=== PATIENT | female | born 1970 | race Caucasian/White ===

== ENCOUNTER 2017-08-30 11:40 | Emergency (ER) | payer MEDICAID, SELFPAY ==
[2017-08-30 11:41] VITALS: BP 116/70; PULSE 100; RESP 18; TEMP 36.4; O2SAT 98; BMI 31.8
--- NOTE | 2017-08-30 12:48 | ED.VISSUMM ---
- ER Visit Summary Date of Service: 08/30/17 Chief Complaint: Back pain History of Present Illness: The patient is a 47 F complains of lower back pain, worse on the right side and radiated down to the mid thigh. Patient had back problems previously but is never required significant evaluation for this or injections. She usually takes Tylenol. 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 Patient states she now has significant pain whenever she tries to bear weight on her right leg. She has not yet taken anything for the pain. She has had no pallor bladder problems. She has had no paresthesias. Physical Examination: Vital signs unremarkable. Patient sitting at the side of the bed. She is in no acute distress but does appear uncomfortable. Head neck examination is unremarkable. Heart is regular rate and rhythm. On lung sounds are clear. Abdomen is soft and nontender. No palpable masses. Back examination was reproducible tenderness in the lower lumbar right paraspinals and over the right sciatic notch. There is no rash or ecchymosis. Lower extremity examination does reveal good strength in both legs. She does have increased pain with right leg movement but has good strength and good effort. She has normal sensation on testing with strong distal pulses. 1+ bilateral patellar reflexes are noted. Test Results: [] Emergency Department Course and Treatment: Oars report was performed. Patient had 1 narcotic prescription in the last year from October 2016. She will be given [place], Flexeril, and Naprosyn with first doses given here. Treatment Plan: [] Disposition: Discharge Impression: Sciatica with lumbar paraspinal strain This note was generated with [employer] dictation software. It may contain incorrect words, spelling, and punctuation that were not noted in review of the chart prior to signing ED Disposition - Plan for ED Patient: Disposition: Home or Assisted Living Chief Complaint: Back Instructions: ED Sprain Strain Lumbar, ED Sciatica Prescriptions: Hydrocodone Bitart/Apap 5-325 [[place] 5MG-325MG] 1 tablet PO Q6H PRN PRN 3 Days #10 tablet PRN Reason: Pain Naproxen [Naprosyn] 500 mg PO BID #14 tab Cyclobenzaprine [Flexeril] 10 mg PO TID PRN #20 tab PRN Reason: Muscle Spasm Referrals: Sapna Ray DO [Primary Care Provider] - 1 Week
--- NOTE | 2017-08-30 12:49 | ED.DEP ---
ED Disposition - Plan for ED Patient: Disposition: Home or Assisted Living Chief Complaint: Back Instructions: ED Sciatica, ED Sprain Strain Lumbar Prescriptions: Hydrocodone Bitart/Apap 5-325 [[place] 5MG-325MG] 1 tablet PO Q6H PRN PRN 3 Days #10 tablet PRN Reason: Pain Naproxen [Naprosyn] 500 mg PO BID #14 tab Cyclobenzaprine [Flexeril] 10 mg PO TID PRN #20 tab PRN Reason: Muscle Spasm Referrals: Sapna Ray DO [Primary Care Provider] - 1 Week
--- NOTE | 2017-08-30 12:52 | DCINST.ED_ITS ---
ED Disposition - Plan for ED Patient: Disposition: Home or Assisted Living Chief Complaint: Back Instructions: ED Sciatica, ED Sprain Strain Lumbar Prescriptions: Hydrocodone Bitart/Apap 5-325 [[place] 5MG-325MG] 1 tablet PO Q6H PRN PRN 3 Days # 10 tablet PRN Reason: Pain Naproxen [Naprosyn] 500 mg PO BID #14 tab Cyclobenzaprine [Flexeril] 10 mg PO TID PRN #20 tab PRN Reason: Muscle Spasm Referrals: Sapna Ray DO [Primary Care Provider] - 1 Week
[2017-08-30] MEDS: HYDROcodone Bitartrate/Apap 5/325 Tablet PO (13:04)
[2017-08-30] MEDS: Naproxen 500 MG Tablet PO (13:04)
[2017-08-30 13:08] VITALS: BP 117/85; PULSE 97; RESP 16; O2SAT 100
== END 2017-08-30 13:09 | disposition home or self-care (01) ==
LOC: ED 13:00
PROVIDERS: Emergency Provider Emergency Medicine; Family Provider Family Medicine; PCP Family Medicine
DX: M54.40 Lumbago with sciatica, unspecified side (principal); S39.012A Strain of muscle, fascia and tendon of lower back, initial encounter; X50.1XXA Overexertion from prolonged static or awkward postures, initial encounter; Y93.89 Activity, other specified; Y92.9 Unspecified place or not applicable; E78.00 Pure hypercholesterolemia, unspecified; E11.9 Type 2 diabetes mellitus without complications; K21.9 Gastro-esophageal reflux disease without esophagitis; G47.33 Obstructive sleep apnea (adult) (pediatric); M79.7 Fibromyalgia; Z87.891 Personal history of nicotine dependence; Z79.82 Long term (current) use of aspirin; Z79.84 Long term (current) use of oral hypoglycemic drugs; Z79.899 Other long term (current) drug therapy
CPT/HCPCS: 99283

== ENCOUNTER → 2017-09-17 11:14 | Outpatient (CLI) | payer MEDICAID, SELFPAY ==
[2017-09-17 14:55] LABS: Microalbumin,Random Urine 5.6 mg/L (NO RANGE EST.); Microalbumin:Creatinine Ratio 24.5 mg/g CRE (<30 mg/g CRE)
[2017-09-17 15:02] LABS: AST(SGOT) 21 U/L (15-37); Alanine Aminotransfer ALT/SGPT 37 U/L (13-56); Albumin, Serum 3.8 g/dL (3.2-5.0); Alkaline Phosphatase 74 U/L (45-117); Anion Gap 10 (5-15); BUN 18 mg/dL (7-18); BUN/Creat Ratio 22.7 RATIO (10-20); Calcium,Total 8.8 mg/dL (8.5-10.1); Chloride 100 mmol/L (98-107); Cholesterol 228 mg/dL (200); Creatinine, Serum 0.79 mg/dL (0.55-1.02); EST Glomerular Filtration Rate 83 mL/min (>60); Est Glom Filt Rate - Afr Amer 100 mL/min (>60); Glucose 406 mg/dL (74-106); High Density Lipoprotein 26 mg/dL; Potassium 4.4 mmol/L (3.5-5.1); Protein, Total 7.8 g/dL (6.4-8.2); Sodium Level 134 mmol/L (136-145); Triglycerides 1257 mg/dL
== END ==
PROVIDERS: Family Provider Family Medicine; PCP Family Medicine; Visit Provider Family Medicine
DX: E11.9 Type 2 diabetes mellitus without complications (principal)
CPT/HCPCS: 36415; 80053; 80061; 82043; 82570

== ENCOUNTER → 2017-11-27 13:30 | Outpatient (CLI) | payer MEDICAID, SELFPAY | PROVIDERS: Family Provider Family Medicine; PCP Family Medicine; Visit Provider Family Medicine | DX: R05 Cough (principal); R07.81 Pleurodynia | CPT/HCPCS: 71046 ==

== ENCOUNTER → 2018-07-01 12:47 | Outpatient (CLI) | payer MEDICAID, SELFPAY ==
[2018-07-01 15:35] LABS: Absolute Lymphocyte Count 2.46 X10^3/ul (0.83-4.51); Absolute Neutrophil Count 2.7 X10^3/uL (2.0-7.7); Basophil# 0.04 X10^3/uL; Basophil% 0.7 % (0-1); Eosinophils% 1.7 % (0-5); Hematocrit 43.9 % (37-47); Lymphocyte # 2.46 X10^3/ul (4.0); Mean Corp Hgb Conc 34.2 g/gl (32-36); Mean Corpuscular Hgb 28.8 pg (27.0-32.0); Mean Corpuscular Volume 84.4 fL (81-99); Mean Platelet Vol. 10.6 fl (6.2-12.0); Monocyte# 0.48 X10^3/uL; Monocyte% 8.2 % (0-10); Neutrophil # 2.74 X10^3/uL (2.7-7.7); Neutrophil % 46.7 % (47-70); Platelet Count 203 K/mm3 (150-450); RBC Distribution Width CV 13.7 % (11.6-14.6); RBC Distribution Width SD 41.9 fl (35.1-43.9); White Blood Count 5.9 K/mm3 (4.4-11.0)
[2018-07-01 15:38] LABS: POSITIVE COUNT NO; POSITIVE DIFFERENTIAL NO; POSITIVE MORPHOLOGY NO
[2018-07-01 15:56] LABS: Microalbumin,Random Urine 7.3 mg/L (NO RANGE EST.); Microalbumin:Creatinine Ratio 12.2 mg/g CRE (<30 mg/g CRE)
[2018-07-01 16:01] LABS: Erythrocyte Sedimentation Rate 32 mm/hr (0-20)
[2018-07-01 16:19] LABS: ALB/GLOB Ratio 1.1 RATIO (0.9-2.4); AST(SGOT) 34 U/L (15-37); Alanine Aminotransfer ALT/SGPT 68 U/L (13-56); Alkaline Phosphatase 89 U/L (45-117); Anion Gap 11 (5-15); BUN 17 mg/dL (7-18); BUN/Creat Ratio 18.7 RATIO (10-20); Calcium,Total 8.7 mg/dL (8.5-10.1); Chloride 102 mmol/L (98-107); Cholesterol 177 mg/dL (200); Creatinine, Serum 0.91 mg/dL (0.55-1.02); EST Glomerular Filtration Rate 71 mL/min (>60); Est Glom Filt Rate - Afr Amer 85 mL/min (>60); Globulin 3.8 g/dL (2.2-4.2); Glucose 361 mg/dL (74-106); High Density Lipoprotein 25 mg/dL; Potassium 4.4 mmol/L (3.5-5.1); Protein, Total 7.8 g/dL (6.4-8.2); Sodium Level 135 mmol/L (136-145); Triglycerides 838 mg/dL
[2018-07-01 16:20] LABS: CRP < 2.90 mg/L (0.0-3.0); Free T3 2.4 pg/mL (2.18-3.98); Hemoglobin A1c 10.7 % (4.2-6.3); Rheumatoid Factor < 10.0 IU/mL (<15); T4 Free Direct 1.14 ng/dL (0.76-1.46); Thyroid Stim Hormone (TSH) 2.15 uIU/mL (0.358-3.74)
[2018-07-05 11:58] LABS: CCP IgG Antibodies 58 units (0-19)
[2018-07-05 13:55] LABS: Anti-Centromere B Ab <0.2 AI (0.0-0.9); Anti-Chromatin <0.2 AI (0.0-0.9); Anti-Jo <0.2 AI (0.0-0.9); Anti-Scleroderma-70 AB <0.2 AI (0.0-0.9); RNP Ab <0.2 AI (0.0-0.9); SJOGREN'S Anti-SS-A test < 0.2 AI (0.0-0.9); SJOGREN'S Anti-SS-B test < 0.2 AI (0.0-0.9); Smith Ab <0.2 AI (0.0-0.9)
[2018-07-06 13:13] LABS: Anti-dsDNA Ab <1 IU/mL (0-9)
== END ==
PROVIDERS: Family Provider Family Medicine; PCP Family Medicine; Visit Provider Family Medicine
DX: E11.9 Type 2 diabetes mellitus without complications (principal); E78.5 Hyperlipidemia, unspecified; M79.10 Myalgia, unspecified site; M25.50 Pain in unspecified joint; Z51.81 Encounter for therapeutic drug level monitoring
CPT/HCPCS: 36415; 80053; 80061; 82043; 82570; 83036; 84439; 84443; 84481; 85025; 85652; 86140; 86200; 86225; 86235; 86431

== ENCOUNTER → 2019-06-06 11:11 | Outpatient (CLI) | payer MEDICAID, SELFPAY ==
[2019-06-06 12:57] LABS: Absolute Lymphocyte Count 2.88 X10^3/uL (0.83-4.51); Absolute Neutrophil Count 3.1 X10^3/uL (2.0-7.7); Basophil# 0.04 X10^3/uL; Basophil% 0.6 % (0-1); Eosinophil# 0.14 X10^3/uL; Hematocrit 45.8 % (37-47); Hemoglobin 15.7 g/dL (12.0-15.0); Lymphocyte # 2.88 X10^3/ul (4.0); Lymphocyte % 41.7 % (19-41); Mean Corp Hgb Conc 34.3 g/dL (32-36); Mean Corpuscular Volume 84.5 fL (81-99); Mean Platelet Vol. 10.7 fl (6.2-12.0); Monocyte# 0.69 X10^3/uL; NRBC Flagged by Analyzer 0 % (0-5); Neutrophil # 3.11 X10^3/uL (2.7-7.7); Neutrophil % 45.1 % (47-70); Platelet Count 209 K/mm3 (150-450); RBC Distribution Width SD 39.8 fl (35.1-43.9); Red Blood Count 5.42 M/mm3 (4.2-5.4); White Blood Count 6.9 K/mm3 (4.4-11.0)
[2019-06-06 13:37] LABS: ALB/GLOB Ratio 0.9 RATIO (0.9-2.4); AST(SGOT) 20 U/L (15-37); Alanine Aminotransfer ALT/SGPT 35 U/L (13-56); Albumin, Serum 3.7 g/dL (3.2-5.0); Alkaline Phosphatase 79 U/L (45-117); Anion Gap 8 (5-15); BUN 25 mg/dL (7-18); BUN/Creat Ratio 25.9 RATIO (10-20); Calcium,Total 9.5 mg/dL (8.5-10.1); Chloride 104 mmol/L (98-107); Creatinine, Serum 0.96 mg/dL (0.55-1.02); EST Glomerular Filtration Rate 66 mL/min (>60); Est Glom Filt Rate - Afr Amer 79 mL/min (>60); Glucose 337 mg/dL (74-106); Potassium 4.1 mmol/L (3.5-5.1); Protein, Total 7.7 g/dL (6.4-8.2); Sodium Level 135 mmol/L (136-145)
[2019-06-07 13:44] LABS: Cholesterol 252 mg/dL (200); High Density Lipoprotein 31 mg/dL; Triglycerides 631 mg/dL
== END ==
PROVIDERS: PCP Family Medicine; Visit Provider Family Medicine
DX: E78.5 Hyperlipidemia, unspecified (principal); E11.3299 Type 2 diabetes mellitus with mild nonproliferative diabetic retinopathy without macular edema, unspecified eye; E11.65 Type 2 diabetes mellitus with hyperglycemia
CPT/HCPCS: 36415; 80053; 80061; 85025

== ENCOUNTER → 2019-07-26 10:11 | Outpatient (CLI) | payer MEDICAID, SELFPAY ==
[2019-07-26 12:04] LABS: Insulin 50.2 mU/L (2.6-37.6)
[2019-07-26 12:28] LABS: ALB/GLOB Ratio 0.9 RATIO (0.9-2.4); AST(SGOT) 16 U/L (15-37); Alanine Aminotransfer ALT/SGPT 33 U/L (13-56); Albumin, Serum 3.6 g/dL (3.2-5.0); Alkaline Phosphatase 88 U/L (45-117); Anion Gap 10 (5-15); BUN 33 mg/dL (7-18); BUN/Creat Ratio 40.7 RATIO (10-20); Chloride 101 mmol/L (98-107); Creatinine, Serum 0.81 mg/dL (0.55-1.02); EST Glomerular Filtration Rate 80 mL/min (>60); Est Glom Filt Rate - Afr Amer 97 mL/min (>60); Globulin 3.8 g/dL (2.2-4.2); Glucose 377 mg/dL (74-106); Potassium 4.2 mmol/L (3.5-5.1); Protein, Total 7.4 g/dL (6.4-8.2); Sodium Level 134 mmol/L (136-145); T4 Free Direct 1.01 ng/dL (0.76-1.46); Thyroid Stim Hormone (TSH) 1.82 uIU/mL (0.358-3.74)
[2019-07-27 17:43] LABS: C-Peptide 8.8 ng/mL (1.1-4.4)
== END ==
PROVIDERS: PCP Family Medicine; Referring Provider Family Medicine; Visit Provider Family Medicine
DX: E11.65 Type 2 diabetes mellitus with hyperglycemia (principal); D89.89 Other specified disorders involving the immune mechanism, not elsewhere classified; R53.83 Other fatigue
CPT/HCPCS: 36415; 80053; 83525; 84439; 84443; 84681

== ENCOUNTER 2019-09-07 18:03 | Emergency (ER) | payer MEDICAID, SELFPAY ==
[2019-09-07 18:04] VITALS: BP 118/72; PULSE 108; RESP 14; TEMP 36.2; O2SAT 97; BMI 29.6
--- NOTE | 2019-09-07 18:30 | RAD_ITS ---
STUDY: X-RAY - RIGHT KNEE REASON FOR EXAM: Female, 49 years old. fall today. Abrasions to Rt knee. Hx of surgery. TECHNIQUE: 3 view(s) of the knee. COMPARISON: None. FINDINGS: Normal visualized distal femur. Normal visualized proximal tibia and fibula. Normal proximal tibiofibular articulation. There is no demonstrated fracture. There is moderate degenerative arthrosis of the medial femorotibial compartment with moderate joint space narrowing. There is mild degenerative arthrosis of the lateral femorotibial compartment. There is moderate degenerative arthrosis of the patellofemoral articulation. There is no demonstrated joint effusion. Postoperative changes of the tibial tubercle. RAD/Knee 3 Views IMPRESSION: Negative for acute fracture, dislocation or hemarthrosis. Moderately advanced degenerative changes of the patellofemoral and medial compartment. Postoperative changes of the tibial tubercle. Electronically Signed: Eli Taylor MD at 18:47 EDT , Service support ,
--- NOTE | 2019-09-07 18:54 | ED.VIS.FALL ---
History of Present Illness Chief Complaint: Fall Informant: Patient, Significant Other Occurred: Today - JPTA Mechanism/Context: Same level fall Quality of Pain: - - sore Current Severity: Mild Maximum Severity: Moderate Worsened by: walking Relieved by: rest Associated Symptoms: Negative for: Parasthesias, Weakness, Loss of function, Inability to ambulate, Loss of consciousness, Amnesia Narrative: Patient has fibromyalgia and states she frequently falls. She states she has balance issues. She had a fall while walking on the sidewalk today, she went down to her hands and knees. She injured the right knee the worst. She was able to ambulate, she had no other injuries. She was concerned mostly because of laceration to the knee. No prodromal symptoms. Tetanus Immunization: 5-10 years - Past Medical History (1) Fibromyalgia Status: Chronic (2) Intertrigo Status: Chronic Comment: abdominal wall skin crease intertrigo (3) Lumbar back pain Status: Chronic Past Medical History - Allergies and Home Meds Allergies/Adverse Reactions: Allergies etodolac [From [facility]] Allergy (Verified 09/07/19 18:03) Rash Primary Care Physician: Sapna Ray DO [Primary Care Provider] - Lives: Spouse/ Significant Other Smoking Status: Never smoker Review of Systems General: Denies: Chills, Fever, Sweats Eyes: Denies: Visual changes - bilaterally, Diplopia ENT: Denies: Rhinorrhea, Sore throat Cardiovascular: Denies: Chest pain, Palpitations Respiratory: Denies: Dyspnea, Cough, Dyspnea on exertion Gastrointestinal: Denies: Abdominal pain, Nausea, Vomiting, Diarrhea, Melena, Hematochezia Genitourinary: Denies: Dysuria, Hematuria, Frequency Musculoskeletal: Reports: Extremity Pain. Denies: Back pain Skin: Reports: Abrasions, Wounds. Denies: Rash Neurological: Denies: Headache, Weakness, Numbness Physical Exam Vital Signs/Narrative: Vital Signs Temp Pulse Resp BP Pulse Ox 09/07/19 18:04 97.2 F L 108 H 14 118/72 97 Inital Vital Signs reviewed: Yes General: Well nourished, Well developed, - - Well-appearing NAD, GCS 15 Head: Normocephalic, Atraumatic Neck: Nontender, Full ROM Back: Nontender. Negative for: Spinal Tenderness, Paraspinal Tenderness Extremeties: Full range of motion throughout all 4 extremities, including the wrists bilaterally without any bony tenderness there including the snuffbox is, and the knees. The only bony tenderness is at the right tibial tuberosity. All ligaments are intact with a short endpoints and no pain on stressing. Skin: Normal color, No rash, Trauma - Abrasions to both anterior knees, with a partial-thickness laceration 3 cm over the tibial tuberosity of the right. The laceration does not distract and is barely into the dermis if that. Neurological: Alert, Oriented x3, Cranial nerves II-XII grossly intact, Normal Strength, Normal Sensation, Normal Gait Psychological: Normal affect, Normal Mood Diagnostic/Tx/Re-eval Clinical Impression(s) from Imaging Studies Knee X-Ray 09/07/19 18:30 IMPRESSION: Negative for acute fracture, dislocation or hemarthrosis. Moderately advanced degenerative changes of the patellofemoral and medial compartment. Postoperative changes of the tibial tubercle. Electronically Signed: Eli Taylor MD at 18:47 EDT , Service support , - Medical Decision Making X-rays of the right knee are negative for anything acute. I do not think this laceration needs to be repaired it is very superficial does not distract even when she flexes her knee fully. Cleansed, dressed with bacitracin, and patient is comfortable with that plan and I did not think it needed stitched. ED Disposition - Plan for ED Patient: Disposition: Home or Assisted Living Diagnosis: Abrasion of knee, bilateral, Abrasion, wrist w/o infection Instructions: ED Mechanical Fall, ED Abrasion Referrals: Sapna Ray DO [Primary Care Provider] - As Needed
== END 2019-09-07 19:21 | disposition home or self-care (01) ==
LOC: ED 19:07
PROVIDERS: Emergency Provider Emergency Medicine; PCP Family Medicine
DX: S80.211A Abrasion, right knee, initial encounter (principal); S80.212A Abrasion, left knee, initial encounter; W19.XXXA Unspecified fall, initial encounter; Y92.480 Sidewalk as the place of occurrence of the external cause
CPT/HCPCS: 73562; 99282

== ENCOUNTER 2020-01-28 18:54 | Emergency (ER) | payer MEDICAID, SELFPAY ==
[2020-01-28 18:55] VITALS: BP 129/80; PULSE 97; RESP 14; TEMP 36.6; O2SAT 99; BMI 29.7
[2020-01-28 18:59] VITALS: BP 129/80; PULSE 97; RESP 14; TEMP 36.6; O2SAT 99
--- NOTE | 2020-01-28 19:05 | ED.DEP ---
ED Disposition - Plan for ED Patient: Instructions: ED Tooth Pain Prescriptions: Naproxen [Naprosyn] 500 mg PO BID PRN #20 tab Prescription Printed Penicillin V Potassium 500 mg PO 4X/DAY #40 tab Prescription Printed Referrals: Sapna Ray DO [Primary Care Provider] -
--- NOTE | 2020-01-28 19:07 | ED.VISSUMM ---
- ER Visit Summary Date of Service: 01/28/20 Chief Complaint: Dental pain History of Present Illness: The patient is a 49 F presenting with dental pain. She states this started yesterday. She has pain right upper molar. She noticed right sided facial swelling today. She denies fever. She does not currently have a dentist. She has tried Tylenol at home. She denies other complaints. Physical Examination: Vitals are stable. Patient is afebrile. Alert no acute distress. HEENT exam right upper molar tenderness to palpation with no surrounding fluctuance, mild right upper gum swelling. No sublingual edema. Neck is supple. Lungs are clear and equal bilaterally. Heart is regular rate and rhythm. Extremities are unremarkable. Skin is warm and dry. No focal neurologic deficit. Remainder of exam is unremarkable. Emergency Department Course and Treatment: Patient was given [place] x1. She was given prescription for Naprosyn and penicillin. She was given dental referral list. Advised to follow-up with a dentist. Advised return to ED for worsening complaints. Disposition: Discharge home Impression: Odontalgia This note was generated with [email or web address] dictation software. It may contain incorrect words, spelling, and punctuation that were not noted in review of the chart prior to signing ED Disposition - Plan for ED Patient: Instructions: ED Tooth Pain Prescriptions: Naproxen [Naprosyn] 500 mg PO BID PRN #20 tab Prescription Printed Penicillin V Potassium 500 mg PO 4X/DAY #40 tab Prescription Printed Referrals: Sapna Ray DO [Primary Care Provider] -
[2020-01-28] MEDS: Penicillin Vk 250 MG Tablet 500 MG PO (19:16)
[2020-01-28] MEDS: HYDROcodone Bitartrate/Apap 5/325 Tablet PO (19:17)
== END 2020-01-28 19:21 | disposition home or self-care (01) ==
LOC: ED 19:12
PROVIDERS: Emergency Provider Emergency Medicine; PCP Family Medicine
DX: K08.89 Other specified disorders of teeth and supporting structures (principal); K21.9 Gastro-esophageal reflux disease without esophagitis; E11.9 Type 2 diabetes mellitus without complications; Z79.84 Long term (current) use of oral hypoglycemic drugs
CPT/HCPCS: 99281

== ENCOUNTER → 2020-02-17 12:14 | Outpatient (CLI) | payer MEDICAID, SELFPAY ==
[2020-01-28 18:55] VITALS: BMI 29.7
[2020-02-17 15:21] LABS: Absolute Lymphocyte Count 2.12 X10^3/uL (0.83-4.51); Absolute Neutrophil Count 2.9 X10^3/uL (2.0-7.7); Basophil# 0.03 X10^3/uL; Basophil% 0.5 % (0-1); Eosinophil# 0.14 X10^3/uL; Eosinophils% 2.4 % (0-5); Hematocrit 42.6 % (37-47); Hemoglobin 14.2 g/dL (12.0-15.0); Lymphocyte # 2.12 X10^3/ul (4.0); Lymphocyte % 36.1 % (19-41); Mean Corp Hgb Conc 33.3 g/dL (32-36); Mean Corpuscular Hgb 29.5 pg (27.0-32.0); Mean Corpuscular Volume 88.4 fL (81-99); Mean Platelet Vol. 10.6 fl (6.2-12.0); Monocyte# 0.63 X10^3/uL; Monocyte% 10.7 % (0-10); NRBC Flagged by Analyzer 0 % (0-5); Neutrophil # 2.94 X10^3/uL (2.7-7.7); Platelet Count 183 K/mm3 (150-450); RBC Distribution Width SD 41.9 fl (35.1-43.9); Red Blood Count 4.82 M/mm3 (4.2-5.4); White Blood Count 5.9 K/mm3 (4.4-11.0)
[2020-02-17 16:03] LABS: Hemoglobin A1c 12.5 % (3.8-5.6)
[2020-02-17 16:10] LABS: Microalbumin,Random Urine 29.8 mg/L (NO RANGE EST.); Microalbumin:Creatinine Ratio 35.8 mg/g CRE (<30 mg/g CRE)
[2020-02-17 16:23] LABS: ALB/GLOB Ratio 0.9 RATIO (0.9-2.4); AST(SGOT) 27 U/L (15-37); Alanine Aminotransfer ALT/SGPT 43 U/L (13-56); Albumin, Serum 3.3 g/dL (3.2-5.0); Alkaline Phosphatase 102 U/L (45-117); Anion Gap 8 (5-15); BUN 20 mg/dL (7-18); Calcium,Total 8.4 mg/dL (8.5-10.1); Chloride 97 mmol/L (98-107); Cholesterol 230 mg/dL (200); EST Glomerular Filtration Rate 81 mL/min (>60); Est Glom Filt Rate - Afr Amer 98 mL/min (>60); Globulin 3.8 g/dL (2.2-4.2); Glucose 360 mg/dL (74-106); High Density Lipoprotein 29 mg/dL; Potassium 4.2 mmol/L (3.5-5.1); Protein, Total 7.1 g/dL (6.4-8.2); Sodium Level 132 mmol/L (136-145); Triglycerides 1031 mg/dL
== END ==
PROVIDERS: PCP Family Medicine; Referring Provider Family Medicine; Visit Provider Family Medicine
DX: E11.9 Type 2 diabetes mellitus without complications (principal); E78.5 Hyperlipidemia, unspecified
CPT/HCPCS: 36415; 80053; 80061; 82043; 82570; 83036; 85025

== ENCOUNTER 2020-03-07 19:05 | Observation (INO) | payer MEDICAID, SELFPAY ==
[2020-03-07 19:05] VITALS: BP 112/82; PULSE 133; RESP 16; TEMP 36.1; O2SAT 100; BMI 29.9
--- NOTE | 2020-03-07 19:29 | EKG12_ITS ---
Test Reason : FALL Blood Pressure : / mmHG Vent. Rate : 130 BPM Atrial Rate : 130 BPM P-R Int : 144 ms QRS Dur : 072 ms QT Int : 312 ms P-R-T Axes : 074 -17 048 degrees QTc Int : 459 ms Sinus tachycardia Inferior infarct , age undetermined Abnormal ECG Confirmed by CORIE CORONADO, RAMSES ([id number]), copy editor HI SANDY ([id number]) on 03/09/2020 2:05:30 PM Referred By: Confirmed By:MICHELL FONTENOT MD
--- NOTE | 2020-03-07 20:04 | CT_ITS ---
STUDY: CT BRAIN WITHOUT CONTRAST REASON FOR EXAM: Female, 49 years old. Weakness. Patient states she keeps falling and is not sure why. RADIATION DOSAGE (If Supplied By Facility): CTDIvol = ( 44.99 ) mGy, DLP = ( 762.36 ) mGycm TECHNIQUE: Transaxial CT imaging of the brain was performed without administration of intravenous contrast material. Individualized dose optimization techniques were used for this CT. COMPARISON: No relevant priors. FINDINGS: Normal soft tissue structures. Normal calvarium. Normal size ventricles and extra-axial spaces for the patient''s age. Normal white matter tracts of the cerebral hemispheres. Normal basal ganglia and thalami. Normal brainstem. Normal cerebellum. There is no intracranial hemorrhage. There are no findings of an acute ischemic infarction. Normal visualized paranasal sinuses. CT/Brain/Head without Contrast IMPRESSION: Normal unenhanced CT scan of the brain. Electronically Signed: You Liang DO at 20:27 EST Tel [phone], Service support ,
[2020-03-07 20:15] LABS: Absolute Lymphocyte Count 2.09 X10^3/uL (0.83-4.51); Absolute Neutrophil Count 4.3 X10^3/uL (2.0-7.7); Basophil# 0.03 X10^3/uL; Basophil% 0.4 % (0-1); Eosinophil# 0.06 X10^3/uL; Eosinophils% 0.9 % (0-5); Hematocrit 42.4 % (37-47); Hemoglobin 14.8 g/dL (12.0-15.0); Lymphocyte # 2.09 X10^3/ul (4.0); Lymphocyte % 29.7 % (19-41); Mean Corp Hgb Conc 34.9 g/dL (32-36); Mean Corpuscular Hgb 30.3 pg (27.0-32.0); Mean Corpuscular Volume 86.7 fL (81-99); Mean Platelet Vol. 10.1 fl (6.2-12.0); Monocyte% 7.1 % (0-10); NRBC Flagged by Analyzer 0 % (0-5); Neutrophil # 4.31 X10^3/uL (2.7-7.7); Neutrophil % 61.2 % (47-70); Platelet Count 186 K/mm3 (150-450); RBC Distribution Width CV 12.6 % (11.6-14.6); RBC Distribution Width SD 39.5 fl (35.1-43.9); Red Blood Count 4.89 M/mm3 (4.2-5.4)
[2020-03-07 20:45] LABS: Anion Gap 10 (5-15); BUN 33 mg/dL (7-18); BUN/Creat Ratio 24.4 RATIO (10-20); Calcium,Total 8.7 mg/dL (8.5-10.1); Chloride 99 mmol/L (98-107); Creatinine, Serum 1.35 mg/dL (0.55-1.02); EST Glomerular Filtration Rate 44 mL/min (>60); Est Glom Filt Rate - Afr Amer 54 mL/min (>60); Estimated Creatinine Clearance 45.86 ml/min; Glucose 571 mg/dL (74-106); Potassium 4.2 mmol/L (3.5-5.1); Sodium Level 132 mmol/L (136-145)
[2020-03-07] MEDS: 0.9% Normal Saline 1,000 ML 999 ML IV ×2 (20:45→22:00)
[2020-03-07 20:51] LABS: Color, Urine Yellow (Yellow); Glucose, Dipstick 1000 mg/dl (Normal); Ketone-Dipstick Negative (Negative); Leukocyte Esterase-Dipstick Negative /ul (Negative); Nitrite-Dipstick Negative (Negative); Occult Blood-Urine Negative /ul (Negative); Protein-Dipstick Negative (Negative); Urine Bilirubin Dipstick Negative (Negative); Urine Clarity Clear (Clear); Urine Urobilinogen Normal (Normal)
[2020-03-07 20:52] LABS: Bacteria 0 SEEN /hpf (None Seen); Mucous, Urine 0 SEEN /hpf (<or=2+); Red Blood Cells-Urine 0 SEEN /hpf (0-5); White Blood Cells 0 SEEN /hpf (0-5)
[2020-03-07 21:13] LABS: Squamous Epithelial Cells - UA 0-5 SEEN /hpf (5-10)
[2020-03-07 21:25] VITALS: BP 111/75; PULSE 125; RESP 16; O2SAT 96
[2020-03-07] MEDS: Insulin Lispro 100 UNIT/ML INSULN.PEN 10 UNIT SC (21:26)
--- NOTE | 2020-03-07 21:33 | HP.PCM_ITS ---
Problem List (1) Multiple falls Status: Acute (2) Fibromyalgia Status: Chronic (3) Former smoker Status: Chronic (4) Lumbar back pain Status: Chronic (5) Intertrigo Status: Chronic Comment: abdominal wall skin crease intertrigo (6) Excessive body weight loss Status: Chronic (7) Panniculitis Status: Chronic (8) Abdominal panniculus, symptomatic Status: Chronic (9) [place] (acute kidney injury) Status: Acute (10) Diabetes mellitus Status: Acute History of Present Illness Date of Admission: 03/07/20 Chief Complaint: Multiple falls The patient is a 49 year old F with a significant history of diabetes mellitus; and fibromyalgia who presents to the emergency department with multiple falls. On the day of presentation patient had 2 falls. She reported that in the past she has also had an falls. Reportedly she discussed multiple falls previously with her PCP who attributed her multiple falls to likely fibromyalgia or diabetes neuropathy. She reports sciatic pain of her leg. Past Medical History Past Medical History (Chronic Problems): Chronic Problems (Last Reviewed 03/07/20 @ 22:[address] Chris Reina MD) Fibromyalgia (Chronic) Former smoker (Chronic) Lumbar back pain (Chronic) Intertrigo (Chronic) abdominal wall skin crease intertrigo Excessive body weight loss (Chronic) Panniculitis (Chronic) Abdominal panniculus, symptomatic (Chronic) Medical History: Medical History (Last Reviewed 03/08/20 @ 01:[address] Chris Reina MD) Arthritis M19.90 Back problem M53.9 Bursitis M71.9 Carpal tunnel syndrome G56.00 Depression F32.9 Diabetes E11.9 Fibromyalgia M79.7 GERD (gastroesophageal reflux disease) K21.9 Headache R51 High cholesterol E78.00 Osteoarthritis M19.90 Seasonal allergic conjunctivitis H10.45 ULCERS Vision problems H54.7 Vitamin deficiency E56.9 Allergies etodolac [From Lodine] Allergy (Verified 01/28/20 18:55) Rash Home Medications: Ambulatory Orders Medication Instructions Recorded Aspirin [Adult Low Dose Aspirin EC] 81 mg PO DAILY 05/23/15 DiphenhydrAMINE [Benadryl] 50 mg PO BID PRN PRN 05/23/15 Fenofibrate [Lofibra] 67 mg PO BID 05/23/15 Lisinopril [Zestril] 2.5 mg PO DAILY 05/23/15 Omeprazole [Prilosec] 20 mg PO DAILY 05/23/15 Lactobacillus Acidophilus 2 ea PO BID 10/10/16 [Acidophilus Lactobacilli] glipizide 5 mg tablet 5 mg PO BID 04/15/17 cycloBENZAPRine HCl [Flexeril] 10 mg PO TID PRN #20 tab 08/30/17 Duloxetine Hcl [Cymbalta] 60 mg PO DAILY 03/07/20 Gabapentin 600 mg PO TID 03/07/20 Insulin Detemir [Levemir] 20 unit SQ QHS 03/07/20 Meloxicam 03/07/20 Surgical History: Surgical History (Last Reviewed 03/08/20 @ 01:[address] Chris Reina MD) H/O knee surgery Z98.890 TO CORRECT DISLOCATED PATELLAR 03/2013 History of carpal tunnel surgery Z92.89 BOTH WRIST 04/2015 History of hysterectomy Z98.890, Z90.710 05/2015 Smoking Status: Former smoker - *Family History Maternal Family History: Family History (Last Reviewed 03/08/20 @ 01:[address] Chris Reina MD) Mother Arthritis Hypertension Melanoma Father Arthritis Bleeding disorder Diabetes Heart disease High cholesterol Son Kidney disease H/O psychiatric care Uncle Alcoholism Liver disease Grandmother Arthritis Cancer Lung cancer Sister Epilepsy Melanoma Skin cancer Aunt CVA (cerebral vascular accident) Review of Systems Constitutional: Denies: Chills, Fever, Weight Change HEENT: Denies: Head Aches, Sinus Congestion, Sinus Drainage Cardiovascular: Denies: Chest Pain, Palpitations Respiratory: Denies: Cough, Shortness of breath at rest, Sputum production Gastrointestinal: Denies: Abdominal Pain, Nausea, Vomiting Genitourinary: Denies: Dysuria Musculoskeletal: Reports: Leg Pain. Denies: Joint Pain, Joint Tenderness Skin: Denies: Rash, Wounds Neurological: Denies: Numbness, Tingling, Focal weakness Psychiatric: Denies: Anxiety, Depression, Homicidal Ideations, Suicidal Ideations Hematologic/ Lymphatic: Denies: Easy Bruising, Easy Bleeding VTE Information - Inpt Only VTE Present on Admission: No VTE Mechan Device Prophylaxis: None VTE Pharm Prophylaxis ordered?: Yes Patient Problems: Active and Suspected Problems (Last Reviewed 03/07/20 @ 22:[address] Chris Reina MD) Multiple falls (Acute) [place] (acute kidney injury) (Acute) Diabetes mellitus (Acute) - Physical Exam Vitals/I&O's: Vital Signs Temp Pulse Resp BP Pulse Ox 97 F L 125 H 16 111/75 96 03/07/20 19:05 03/07/20 21:25 03/07/20 21:25 03/07/20 21:25 03/07/20 21:25 Oxygen Delivery Method Room Air Weight: 81.647 kg Body Mass Index (BMI) 29.9 Finger Stick Blood Glucose 239 General: Alert, Oriented x3, Cooperative HEENT: Atraumatic, PERRLA, EOMI, Normocephalic Neck: Supple, No JVD, Negative Carotid Bruits Lungs: Clear to auscultation, Normal air movement Cardiovascular: Regular rate, No murmurs Abdomen: Bowel Sounds Present, Soft, Non Tender Extremities: No edema, Capillary Refill Less than 3 Seconds Skin: No rashes, No breakdown Musculoskeletal: No Tenderness to Palpation of Joints or Extremities Neurological: Cranial nerves II-XII grossly intact Psych/Mental Status: Normal Affect, Appropriate Laboratory Results 03/07/20 19:58: WBC 7.0, RBC 4.89, Hgb 14.8, Hct 42.4, MCV 86.7, MCH 30.3, MCHC 34.9, RDW Std Deviation 39.5, RDW Coeff of Elio 12.6, Plt Count 186, MPV 10.1, Immature Gran % (Auto) 0.700, Neut % (Auto) 61.2, Lymph % (Auto) 29.7, [place] % (Auto) 7.1, Eos % (Auto) 0.9, Baso % (Auto) 0.4, Absolute Neuts (auto) 4.3, Absolute Lymphs (auto) 2.09, Nucleated RBC % 0 03/07/20 19:58: Sodium 132 L, Potassium 4.2, Chloride 99, Carbon Dioxide 23.0, Anion Gap 10, BUN 33 H, Creatinine 1.35 H, Estim Creat Clear Calc 45.86, Est GFR (MDRD) Af Amer 54 L, Est GFR (MDRD) Non-Af 44 L, BUN/Creatinine Ratio 24.4 H, Glucose 571 H*, Calcium 8.7 03/07/20 20:35: Urine Color Yellow, Urine Clarity Clear, Urine pH 5.0, Ur Specific [place] 1.010, Urine Protein Negative, Urine Glucose (UA) 1000 H, Urine Ketones Negative, Urine Occult Blood Negative, Urine Nitrite Negative, Urine Bilirubin Negative, Urine Urobilinogen Normal, Ur Leukocyte Esterase Negative, Urine RBC 0 SEEN, Urine WBC 0 SEEN, Ur Squamous Epith Cells 0-5 SEEN, Urine Bacteria 0 SEEN, Urine Mucus 0 SEEN Current Medications Sodium Chloride () 1,000 mls @ 999 mls/hr IV .Q1H1M ONE Stop: 03/07/20 22:10 Assessment/Plan All Active Problems (Last Reviewed 03/07/20 @ 22:[address] Chris Reina MD) Multiple falls (Acute) [place] (acute kidney injury) (Acute) Diabetes mellitus (Acute) Multiple falls PT and OT to work with patient We will check vitamin B12 and vitamin D level. Diabetes mellitus Patient with severe hyperglycemia of 571 on presentation. Received short acting insulin at emergency department Home glipizide continued. Accu-Chek QA CHS with correction scale insulin. Diabetic diet ordered. Hold Metformin in the hospital settings. B[place] On presentation was 1.35. Review of old record shows a creatinine baseline of less than 1. BUN is 33. BUN over creatinine is 24.4. Likely prerenal. Gentle IV hydration Trend BMP Avoid nephrotoxins. Of note patient reports taking meloxicam at home. DVT Prophylaxis Subcutaneous Lovenox. Miscellaneous: Covid -19 requested by patient because of Covid-like symptoms from family. Returned negative. OBSV E&M: [id number] Initial observation care L3
--- NOTE | 2020-03-07 22:04 | ED.VISSUMM ---
- ER Visit Summary Date of Service: 03/07/20 Chief Complaint: Multiple falls History of Present Illness: The patient is a 49 F presenting after multiple falls. Patient states she was standing in her driveway and fell without warning today. She states her legs just gave out. She did not hit her head or lose consciousness. She states she had trouble getting up. She was eventually able to walk. She then had another episode in the afternoon which was similar. She did not hit her head or lose consciousness. She denies dizziness prior to the fall. Denies fever or cough. Denies chest pain or shortness of breath. Denies bowel or bladder incontinence. Physical Examination: Vitals are stable. Patient is afebrile. Alert no acute distress. HEENT exam is unremarkable. Neck is supple. Lungs are clear and equal bilaterally. Heart is regular tachycardic Abdomen is soft nontender nondistended. Extremities are unremarkable. Skin is warm and dry. No focal neurologic deficit. Subjective weakness left lower extremity. No foot drop. Able to lift bilateral lower extremity off bed for over 10 seconds. Normal pulses. Remainder of exam is unremarkable. Emergency Department Course and Treatment: EKG is sinus tachycardia rate of 130. CBC, chemistries show sodium 132, glucose 571, BUN 33, creatinine 1.35. Urine positive for glucose. Patient was given IV fluids and insulin. Discussed with hospitalist for observation. Disposition: Observation Impression: Hyperglycemia, multiple falls This note was generated with [employer] dictation software. It may contain incorrect words, spelling, and punctuation that were not noted in review of the chart prior to signing
[2020-03-07 22:05] VITALS: BP 115/82; PULSE 122; RESP 18; TEMP 36.4; O2SAT 97
[2020-03-07 23:19] VITALS: BMI 30.3
[2020-03-07 23:20] VITALS: BP 111/71; PULSE 114; RESP 18; TEMP 36.6; O2SAT 99
[2020-03-07 23:28] VITALS: BMI 30.3
[2020-03-07] MEDS: glipiZIDE 5 MG Tablet PO (23:59)
[2020-03-07] MEDS: cycloBENZAPRine HCl 10 MG Tablet PO (23:59)
[2020-03-07] MEDS: 0.9% Saline Lock 10 ML Syringe IV (23:59)
[2020-03-08] MEDS: Insulin Lispro 100 UNIT/ML INSULN.PEN SC ×2 (00:01→11:38)
[2020-03-08] MEDS: 0.9% Normal Saline 1,000 ML 100 ML IV (00:02)
[2020-03-08 01:21] LABS: Bedside Glucose 262 mg/dL (70-110)
[2020-03-08 04:02] VITALS: BP 105/65; PULSE 102; RESP 16; TEMP 36.6; O2SAT 99
[2020-03-08] MEDS: Gabapentin 600 MG Tablet PO ×3 (06:21→14:58)
[2020-03-08 06:26] LABS: Bedside Glucose 135 mg/dL (70-110)
[2020-03-08 07:46] VITALS: O2SAT 97
[2020-03-08 07:58] LABS: Absolute Lymphocyte Count 2.52 X10^3/uL (0.83-4.51); Absolute Neutrophil Count 2.4 X10^3/uL (2.0-7.7); Basophil# 0.01 X10^3/uL; Basophil% 0.2 % (0-1); Eosinophil# 0.11 X10^3/uL; Hematocrit 37.5 % (37-47); Hemoglobin 12.8 g/dL (12.0-15.0); Lymphocyte # 2.52 X10^3/ul (4.0); Mean Corp Hgb Conc 34.1 g/dL (32-36); Mean Corpuscular Hgb 29.8 pg (27.0-32.0); Mean Corpuscular Volume 87.2 fL (81-99); Monocyte# 0.57 X10^3/uL; Monocyte% 10.2 % (0-10); NRBC Flagged by Analyzer 0 % (0-5); Neutrophil # 2.36 X10^3/uL (2.7-7.7); Neutrophil % 42.1 % (47-70); Platelet Count 140 K/mm3 (150-450); RBC Distribution Width CV 12.7 % (11.6-14.6); RBC Distribution Width SD 39.8 fl (35.1-43.9); White Blood Count 5.6 K/mm3 (4.4-11.0)
[2020-03-08 08:17] VITALS: BP 115/79; PULSE 99; RESP 15; TEMP 36.4; O2SAT 98
[2020-03-08 08:17] LABS: Anion Gap 4 (5-15); BUN 22 mg/dL (7-18); BUN/Creat Ratio 29.2 RATIO (10-20); Calcium,Total 8.4 mg/dL (8.5-10.1); Chloride 109 mmol/L (98-107); Creatinine, Serum 0.75 mg/dL (0.55-1.02); EST Glomerular Filtration Rate 87 mL/min (>60); Est Glom Filt Rate - Afr Amer 105 mL/min (>60); Estimated Creatinine Clearance 82.54 ml/min; Glucose 128 mg/dL (74-106); Potassium 3.4 mmol/L (3.5-5.1); Sodium Level 140 mmol/L (136-145)
[2020-03-08 08:24] LABS: Vitamin B12 459 pg/mL (211-911); Vitamin D,25 Hydroxy 14.2 ng/mL
[2020-03-08] MEDS: glipiZIDE 5 MG Tablet PO (08:55)
[2020-03-08] MEDS: DULoxetine Hcl 60 MG Capsule PO (08:56)
[2020-03-08] MEDS: Aspirin E.C. 81 MG Tablet PO (08:56)
[2020-03-08] MEDS: Fenofibrate 48 MG Tablet PO (09:00)
[2020-03-08] MEDS: Pantoprazole Sodium 20 MG Tablet PO (09:00)
[2020-03-08] MEDS: Enoxaparin 40 MG/0.4 ML Syringe SC (09:00)
--- NOTE | 2020-03-08 10:52 | RAD_ITS ---
STUDY: X-RAY - LUMBAR SPINE REASON FOR EXAM: Female, 49 years old. Leg weakness, multiple falls TECHNIQUE: 3 view(s) of the lumbar spine were obtained. COMPARISON: None FINDINGS: Normal lumbar lordosis. There is no substantial scoliosis. There is a normal alignment of the vertebrae. There is multilevel endplate spondylosis of the lumbar vertebrae. Mild degree of disc space narrowing at the L5-S1 level. The soft tissue structures are unremarkable. RAD/Lumbar Spine 2 or 3 Views IMPRESSION: Degenerative changes of the spine, as detailed above. Electronically Signed: Carlos Pimentel, at 12:58 EST , Service support ,
[2020-03-08 11:40] LABS: Bedside Glucose 303 mg/dL (70-110)
--- NOTE | 2020-03-08 13:56 | DCINST_ITS ---
- Discharge Diagnoses Current Active Problems: Current Active and Chronic Problems (Last Reviewed 03/08/20 @ 01:[address] Chris Reina MD) Fibromyalgia (Chronic) Multiple falls (Acute) [place] (acute kidney injury) (Acute) Diabetes mellitus (Acute) Former smoker (Chronic) Lumbar back pain (Chronic) Intertrigo (Chronic) abdominal wall skin crease intertrigo Excessive body weight loss (Chronic) Panniculitis (Chronic) Abdominal panniculus, symptomatic (Chronic) You will use the following diet at home:: Calorie/Carbohydrate Controlled (specify 1200, 1400, etc) Discharge Activity: Return to Normal Activity Call your doctor if you observe: Shortness of breath, Dizziness, Fainting spells, Chest pain Allergies/Adverse Reactions: Allergies etodolac [From Lodine] Allergy (Verified 01/28/20 18:55) Rash Medications to take at Discharge Aspirin [Adult Low Dose Aspirin EC] 81 mg PO DAILY 05/23/15 DiphenhydrAMINE [Benadryl] 50 mg PO BID PRN PRN 05/23/15 Fenofibrate [Lofibra] 67 mg PO BID 05/23/15 Lisinopril [Zestril] 2.5 mg PO DAILY 05/23/15 Omeprazole [Prilosec] 20 mg PO DAILY 05/23/15 Lactobacillus Acidophilus [Acidophilus Lactobacilli] 2 ea PO BID 10/10/16 cycloBENZAPRine HCl [Flexeril] 10 mg PO TID PRN #20 tab 08/30/17 Duloxetine Hcl [Cymbalta] 60 mg PO DAILY 03/07/20 Gabapentin 600 mg PO TID 03/07/20 Meloxicam 03/07/20 Insulin Detemir [Levemir] 30 unit SQ QHS #0 03/08/20 Insulin Lispro [Humalog Kwikpen] 10 unit SQ TIDCM #1 box 03/08/20 Metformin HCl 1,000 mg PO BID #60 tab 03/08/20 The following prescriptions were given: Insulin Lispro [Humalog Kwikpen] 10 unit SQ TIDCM #1 box Transmission Status: Pending to [facility] [id number] Metformin HCl 1,000 mg PO BID #60 tab Transmission Status: Pending to [place] [id number] Primary Care Physician: Sapna Ray DO [Primary Care Provider] - Please follow up with your Primary Care Physician in: 1 Week Test Results: Test results from this visit will be discussed in further detail at your follow- up appointment, if applicable. Please Follow Up With: Isaak Garcia MD When: Call for appt Proposed Discharge Date: 03/08/20
--- NOTE | 2020-03-08 14:02 | PCM.DC.SUM ---
<Trinity Mueller [facility]IE[facility] DELIVERY - Last Filed: 03/08/20 14:09> Discharge Date and Diagnosis - Problem List Patient Problems: Active and Suspected Problems (Last Reviewed 03/08/20 @ 01:[address] Chris Reina MD) Multiple falls (Acute) BERKLEY (acute kidney injury) (Acute) Diabetes mellitus (Acute) Date of Admission: 03/07/20 Date of Discharge: 03/08/20 - Primary Discharge Diagnosis Acute Problems: Active Problems (Last Reviewed 03/08/20 @ 01:[address] Chris Reina MD) 1. Type 2 diabetes mellitus, poorly controlled 2. Acute kidney injury 3. Recent falls, intermittent lower extremity weakness 4. Hypertension 5. Depression - Secondary Discharge Diagnosis Chronic Problems: Chronic Problems (Last Reviewed 03/08/20 @ 01:[address] Chris Reina MD) Fibromyalgia (Chronic) Former smoker (Chronic) Lumbar back pain (Chronic) Intertrigo (Chronic) abdominal wall skin crease intertrigo Excessive body weight loss (Chronic) Panniculitis (Chronic) Abdominal panniculus, symptomatic (Chronic) Hospital Course and Treatment Imaging Results: Diagnostic Data Brain CT 03/07/20 20:04 IMPRESSION: Normal unenhanced CT scan of the brain. Electronically Signed: You Liang DO at 20:27 EST Tel [phone], Service support , Lumbar Spine X-Ray 03/08/20 10:52 IMPRESSION: Degenerative changes of the spine, as detailed above. Electronically Signed: Carlos Pimentel, at 12:58 EST , Service support , Operations: None Procedures: None Summary of Care Provided: The patient is a 49 year old F admitted 03/07/2020 due to falls. 1. Type 2 diabetes mellitus, poorly controlled-hemoglobin A1c 02/17/2020 12.5%. Glucose on admission greater than 500. Home Levemir increased to 30 units nightly. Initiated on Humalog 10 units 3 times daily with meals. Home glimepiride regimen discontinued. Initiated on Metformin 1000 mg twice daily. Referred to endocrinology, Dr. Garcia for further management and evaluation. 2. Acute kidney injury-resolved with IV fluids. 3. Recent falls, intermittent lower extremity weakness-PT/OT. PT recommending outpatient therapy. X-ray of lumbar spine shows multilevel endplate spondylosis of the lumbar vertebrae, mild degree of disc space narrowing at L5-S1. Follow-up with PCP. Patient states her knees occasionally buckle causing her to fall. Feel her symptoms and weakness may be related to #1/#2. 4. Hypertension-stable, continue lisinopril. 5. Depression-continue duloxetine. Patient seen and examined prior to discharge. Physical assessment as noted below. Patient is stable for discharge with follow up recommendations as noted above. This patient was seen by REGAN Arzola under the supervision of Dr. Álvarez. Patient Problems: Active and Suspected Problems (Last Reviewed 03/08/20 @ 01:[address] Chris Reina MD) Multiple falls (Acute) BERKLEY (acute kidney injury) (Acute) Diabetes mellitus (Acute) - Physical Exam Vitals/I&O's: Vital Signs Temp Pulse Resp BP Pulse Ox 97.5 F L 99 15 115/79 98 03/08/20 08:17 03/08/20 08:17 03/08/20 08:17 03/08/20 08:17 03/08/20 08:17 Oxygen Delivery Method Room Air Weight: 182 lb 5.156 oz Body Mass Index (BMI) 30.3 Finger Stick Blood Glucose 239 Intake and Output for Last 24 Hours 03/06/20 03/07/20 03/08/20 23:59 23:59 23:59 Intake Total 1999 1696.67 / 1696.67 Balance 1999 1696.67 / 1696.67 General: Alert, Oriented x3, Cooperative HEENT: Atraumatic, PERRLA, EOMI, Normocephalic Neck: Supple, No JVD, Negative Carotid Bruits Lungs: Clear to auscultation, Normal air movement Cardiovascular: Regular rate, No murmurs Abdomen: Bowel Sounds Present, Soft, Non Tender Extremities: No clubbing, No cyanosis, No edema, Capillary Refill Less than 3 Seconds Skin: No rashes, No breakdown Musculoskeletal: No Tenderness to Palpation of Joints or Extremities Neurological: Cranial nerves II-XII grossly intact, Neuro grossly intact Psych/Mental Status: Normal Affect, Appropriate Microbiology Past 72 Hours 12/02/20 22:15 Mucosa - Nose SARS-CoV-2 Antigen (Rapid) - Final Laboratory Results 03/07/20 19:58: WBC 7.0, RBC 4.89, Hgb 14.8, Hct 42.4, MCV 86.7, MCH 30.3, MCHC 34.9, RDW Std Deviation 39.5, RDW Coeff of Elio 12.6, Plt Count 186, MPV 10.1, Immature Gran % (Auto) 0.700, Neut % (Auto) 61.2, Lymph % (Auto) 29.7, Dolores % (Auto) 7.1, Eos % (Auto) 0.9, Baso % (Auto) 0.4, Absolute Neuts (auto) 4.3, Absolute Lymphs (auto) 2.09, Nucleated RBC % 0 03/07/20 19:58: Sodium 132 L, Potassium 4.2, Chloride 99, Carbon Dioxide 23.0, Anion Gap 10, BUN 33 H, Creatinine 1.35 H, Estim Creat Clear Calc 45.86, Est GFR (MDRD) Af Amer 54 L, Est GFR (MDRD) Non-Af 44 L, BUN/Creatinine Ratio 24.4 H, Glucose 571 H*, Calcium 8.7 03/07/20 20:35: Urine Color Yellow, Urine Clarity Clear, Urine pH 5.0, Ur Specific [place] 1.010, Urine Protein Negative, Urine Glucose (UA) 1000 H, Urine Ketones Negative, Urine Occult Blood Negative, Urine Nitrite Negative, Urine Bilirubin Negative, Urine Urobilinogen Normal, Ur Leukocyte Esterase Negative, Urine RBC 0 SEEN, Urine WBC 0 SEEN, Ur Squamous Epith Cells 0-5 SEEN, Urine Bacteria 0 SEEN, Urine Mucus 0 SEEN 03/07/20 23:43: POC Glucose 262 H 03/08/20 06:20: POC Glucose 135 H 03/08/20 07:05: Vitamin B12 459, Vitamin D 25-Hydroxy 14.2 03/08/20 07:05: WBC 5.6, RBC 4.30, Hgb 12.8, Hct 37.5, MCV 87.2, MCH 29.8, MCHC 34.1, RDW Std Deviation 39.8, RDW Coeff of Elio 12.7, Plt Count 140 L, MPV 10.0, Immature Gran % (Auto) 0.500, Neut % (Auto) 42.1 L, Lymph % (Auto) 45.0 H, Dolores % (Auto) 10.2 H, Eos % (Auto) 2.0, Baso % (Auto) 0.2, Absolute Neuts (auto) 2.4, Absolute Lymphs (auto) 2.52, Nucleated RBC % 0 03/08/20 07:05: Sodium 140, Potassium 3.4 L, Chloride 109 H, Carbon Dioxide 27.0, Anion Gap 4 L, BUN 22 H, Creatinine 0.75, Estim Creat Clear Calc 82.54, Est GFR (MDRD) Af Amer 105, Est GFR (MDRD) Non-Af 87, BUN/Creatinine Ratio 29.2 H, Glucose 128 H, Calcium 8.4 L 03/08/20 11:28: POC Glucose 303 H Current Medications Acetaminophen (Acetaminophen 325 Mg Tablet) 650 mg PO Q6H PRN PRN PRN Reason: Pain Score 1-10/Temp > 100.7 F Aspirin (Aspirin E.C. 81 Mg Tablet) 81 mg PO DAILY [facility] Last Admin: 03/08/20 08:56 Dose: 81 mg Documented by: Cyclobenzaprine HCl (Cyclobenzaprine Hcl 10 Mg Tablet) 10 mg PO TID PRN PRN PRN Reason: MUSCLE SPASMS Last Admin: 03/07/20 23:59 Dose: 10 mg Documented by: Dextrose (Dextrose 50%-Water 25 Gm/50 Ml Disp.Syrin) 0 gm IV X1 PRN; Protocol PRN Reason: Hypoglycemia Diphenhydramine HCl (Diphenhydramine 25 Mg Capsule) 50 mg PO BID PRN PRN PRN Reason: ITCHING Duloxetine HCl (Duloxetine Hcl 60 Mg Capsule) 60 mg PO DAILY [facility] Last Admin: 03/08/20 08:56 Dose: 60 mg Documented by: Enoxaparin Sodium (Enoxaparin 40 Mg/0.4 Ml Syringe) 40 mg SC DAILY [facility] Last Admin: 03/08/20 09:00 Dose: 40 mg Documented by: Fenofibrate (Fenofibrate 48 Mg Tablet) 48 mg PO BID [facility] Last Admin: 03/08/20 09:00 Dose: 48 mg Documented by: Gabapentin (Gabapentin 600 Mg Tablet) 600 mg PO TID [facility] Last Admin: 03/08/20 06:21 Dose: 600 mg Documented by: [facility] Admin: 03/08/20 08:55 Dose: 5 mg Documented by: Glucagon (Glucagon 1 Mg/Ml Syringe) 1 mg IM .X1 PRN PRN Reason: Hypoglycemia Insulin Glargine (Insulin Glargine 100 Units/Ml Pen) 20 units SC QHS [facility] Last Admin: 03/08/20 00:01 Dose: 20 u Documented by: Insulin Human Lispro (Insulin Lispro 100 Unit/Ml Insuln.Pen) 0 unit SC [facility]; Protocol Last Admin: 03/08/20 11:38 Dose: 6 u Documented by: Lactobacillus Acidophilus (Lactobacillus Acidophilus) 1 tablet PO DAILY [facility] Last Admin: 03/08/20 08:55 Dose: 1 tablet Documented by: Melatonin (Melatonin 3 Mg Tablet) 3 mg PO QHS PRN PRN PRN Reason: INSOMNIA Ondansetron HCl (Ondansetron 4 Mg/2 Ml Vial) 4 mg IV Q8H PRN PRN PRN Reason: NAUSEA/VOMITING Pantoprazole Sodium (Pantoprazole Sodium 20 Mg Tablet) 20 mg PO DAILY [facility] Last Admin: 03/08/20 09:00 Dose: 20 mg Documented by: Sodium Chloride (0.9% Saline Lock 10 Ml Syringe) 10 - 40 ml IV UD PRN PRN Reason: SALINE FLUSH Last Admin: 03/07/20 23:59 Dose: 10 ml Documented by: Discharge Diet: Carb Control Diet Discharge Activity: Return to Normal Activity Call your doctor if you observe: Shortness of breath, Dizziness, Fainting spells, Chest pain Home Medications: Medications to take at Discharge Aspirin [Adult Low Dose Aspirin EC] 81 mg PO DAILY 05/23/15 DiphenhydrAMINE [Benadryl] 50 mg PO BID PRN PRN 05/23/15 Fenofibrate [Lofibra] 67 mg PO BID 05/23/15 Lisinopril [Zestril] 2.5 mg PO DAILY 05/23/15 Omeprazole [Prilosec] 20 mg PO DAILY 05/23/15 Lactobacillus Acidophilus [Acidophilus Lactobacilli] 2 ea PO BID 10/10/16 cycloBENZAPRine HCl [Flexeril] 10 mg PO TID PRN #20 tab 08/30/17 Duloxetine Hcl [Cymbalta] 60 mg PO DAILY 03/07/20 Gabapentin 600 mg PO TID 03/07/20 Meloxicam 03/07/20 Insulin Detemir [Levemir] 30 unit SQ QHS #0 03/08/20 Insulin Lispro [Humalog Kwikpen] 10 unit SQ TIDCM #1 box 03/08/20 Metformin HCl 1,000 mg PO BID #60 tab 03/08/20 Following Prescriptions Were Given to Patient: Insulin Lispro [Humalog Kwikpen] 10 unit SQ TIDCM #1 box Transmission Status: Received by [facility] [id number] Metformin HCl 1,000 mg PO BID #60 tab Transmission Status: Received by [facility] [id number] Primary Care Physician: Sapna Ray DO [Primary Care Provider] - Please follow up with your Primary Care Physician in: 1 Week Please Follow Up With: Isaak Garcia MD When: Call for appt Disposition: Home Minutes spent on discharge:: 35 Patient Condition:: Stable Medical Necessity - Tobacco Use Smoking Status: Former smoker Meaningful Use Info Meaningful Use Diagnoses (Choose all that apply): None applicable <Maci Álvarez - Last Filed: 03/08/20 16:24> Discharge Date and Diagnosis - Primary Discharge Diagnosis Acute Problems: Active Problems (Last Reviewed 03/08/20 @ 01:[address] Chris Reina MD) Multiple falls (Acute) BERKLEY (acute kidney injury) (Acute) Diabetes mellitus (Acute) - Secondary Discharge Diagnosis Chronic Problems: Chronic Problems (Last Reviewed 03/08/20 @ 01:[address] Chris Reina MD) Fibromyalgia (Chronic) Former smoker (Chronic) Lumbar back pain (Chronic) Intertrigo (Chronic) abdominal wall skin crease intertrigo Excessive body weight loss (Chronic) Panniculitis (Chronic) Abdominal panniculus, symptomatic (Chronic) Hospital Course and Treatment Imaging Results: 03/08/20 10:52 Xray Lumbar [Lumbar Spine 2 or 3 Views] [RAD] Stat Summary of Care Provided: I agree with the above and the following is a reflection of my own independent history and physical exam Ms Vann is a 49 yo female who presented to the ED 2/2 falls and was noted to have a BGT >500 on admission. She states that she has been on various diabetic regimens over the years and was just started back on insulin. Her BGT were better here fasting but she was still having markedly elevated prandial BGT. Her Levemir was increased to 30 u at HS and we added Humalog 10 u TID with meals. She is to continue her Metformin but at a dose of 1000 mg BID and we d/c the glipizide. She is also to f/u with endocrinology (Dr. Garcia) in 4-6 weeks. She was seen by PT and they recommended a walker for the time being at home and PT as an outpt--> both of which were ordered. An xray of her lumbar spine was done and was benign other than for DJD/DDD. Her Vitamin D level was low and ergocalciferol was sent 50,000 u weekly for 8 weeks and then she will need a repeat Vit D level. If her leg strength and falling remains an issues she may need further testing but her neuro exam was WNL except for diabetic neuropathy. She is to f/u with her PCP in 1-2 weeks. - Physical Exam Vitals/I&O's: Vital Signs Temp Pulse Resp BP Pulse Ox 97.5 F L 99 15 115/79 98 03/08/20 08:17 03/08/20 08:17 03/08/20 08:17 03/08/20 08:17 03/08/20 08:17 Oxygen Delivery Method Room Air Weight: 82.7 kg Body Mass Index (BMI) 30.3 Finger Stick Blood Glucose 239 Intake and Output for Last 24 Hours 03/06/20 03/07/20 03/08/20 23:59 23:59 23:59 Intake Total 1999 1696.67 / 1696.67 Balance 1999 1696.67 / 1696.67 General: Alert, Oriented x3, Cooperative, No apparent distress, Well developed, Well nourished, - - Middle aged WF sitting up in a chair, appears comfortable HEENT: Atraumatic, PERRLA, EOMI, Normocephalic, EAC Clear Oral: Moist Mucosa, No Gingival or Mucosal Lesions/ Ulcerations Neck: Supple Lungs: Clear to auscultation, Normal air movement, No rhonchi, No wheeze, No rales Cardiovascular: Regular rate, Regular Rhythm, Normal S1, Normal S2, No murmurs, No Ectopic Activity, No rub noted, No Gallop Abdomen: Bowel Sounds Present, Soft, Non Tender, Non-Distended, Obese Extremities: No clubbing, No cyanosis, No edema, Capillary Refill Less than 3 Seconds, Peripheral Pulses Normal Skin: No rashes, No breakdown Neurological: Cranial nerves II-XII grossly intact, Neuro grossly intact, Muscle tone normal, Coordination normal, - - some B LE weakness with maybe slightly more on the L Microbiology Past 72 Hours 03/07/20 22:15 Mucosa - Nose SARS-CoV-2 Antigen (Rapid) - Final Laboratory Results 03/07/20 19:58: WBC 7.0, RBC 4.89, Hgb 14.8, Hct 42.4, MCV 86.7, MCH 30.3, MCHC 34.9, RDW Std Deviation 39.5, RDW Coeff of Elio 12.6, Plt Count 186, MPV 10.1, Immature Gran % (Auto) 0.700, Neut % (Auto) 61.2, Lymph % (Auto) 29.7, Dolores % (Auto) 7.1, Eos % (Auto) 0.9, Baso % (Auto) 0.4, Absolute Neuts (auto) 4.3, Absolute Lymphs (auto) 2.09, Nucleated RBC % 0 03/07/20 19:58: Sodium 132 L, Potassium 4.2, Chloride 99, Carbon Dioxide 23.0, Anion Gap 10, BUN 33 H, Creatinine 1.35 H, Estim Creat Clear Calc 45.86, Est GFR (MDRD) Af Amer 54 L, Est GFR (MDRD) Non-Af 44 L, BUN/Creatinine Ratio 24.4 H, Glucose 571 H*, Calcium 8.7 03/07/20 20:35: Urine Color Yellow, Urine Clarity Clear, Urine pH 5.0, Ur Specific [place] 1.010, Urine Protein Negative, Urine Glucose (UA) 1000 H, Urine Ketones Negative, Urine Occult Blood Negative, Urine Nitrite Negative, Urine Bilirubin Negative, Urine Urobilinogen Normal, Ur Leukocyte Esterase Negative, Urine RBC 0 SEEN, Urine WBC 0 SEEN, Ur Squamous Epith Cells 0-5 SEEN, Urine Bacteria 0 SEEN, Urine Mucus 0 SEEN 03/07/20 23:43: POC Glucose 262 H 03/08/20 06:20: POC Glucose 135 H 03/08/20 07:05: Vitamin B12 459, Vitamin D 25-Hydroxy 14.2 03/08/20 07:05: WBC 5.6, RBC 4.30, Hgb 12.8, Hct 37.5, MCV 87.2, MCH 29.8, MCHC 34.1, RDW Std Deviation 39.8, RDW Coeff of Elio 12.7, Plt Count 140 L, MPV 10.0, Immature Gran % (Auto) 0.500, Neut % (Auto) 42.1 L, Lymph % (Auto) 45.0 H, Dolores % (Auto) 10.2 H, Eos % (Auto) 2.0, Baso % (Auto) 0.2, Absolute Neuts (auto) 2.4, Absolute Lymphs (auto) 2.52, Nucleated RBC % 0 03/08/20 07:05: Sodium 140, Potassium 3.4 L, Chloride 109 H, Carbon Dioxide 27.0, Anion Gap 4 L, BUN 22 H, Creatinine 0.75, Estim Creat Clear Calc 82.54, Est GFR (MDRD) Af Amer 105, Est GFR (MDRD) Non-Af 87, BUN/Creatinine Ratio 29.2 H, Glucose 128 H, Calcium 8.4 L 03/08/20 11:28: POC Glucose 303 H Meaningful Use Info Meaningful Use Diagnoses (Choose all that apply): None applicable Inpatient E&M: [id number] [facility]
[2020-03-08 14:15] VITALS: BP 118/74; PULSE 94; RESP 14; TEMP 36.6; O2SAT 99
== END 2020-03-08 15:22 | disposition home or self-care (01) ==
LOC: ED 20:47 → MS3 21:49
PROVIDERS: Admitting Provider Hospitalist; Emergency Provider Emergency Medicine; PCP Family Medicine; Visit Provider Internal Medicine
DX: E11.65 Type 2 diabetes mellitus with hyperglycemia (principal); N17.9 Acute kidney failure, unspecified; I10 Essential (primary) hypertension; R53.1 Weakness; R29.6 Repeated falls; Z23 Encounter for immunization; M79.7 Fibromyalgia; K21.9 Gastro-esophageal reflux disease without esophagitis; M19.90 Unspecified osteoarthritis, unspecified site; F32.9 Major depressive disorder, single episode, unspecified; Z79.899 Other long term (current) drug therapy; Z79.82 Long term (current) use of aspirin; Z79.4 Long term (current) use of insulin; Z87.891 Personal history of nicotine dependence
CPT/HCPCS: 36415; 70450; 72100; 80048; 81001; 82306; 82607; 82962; 85025; 87426; 93005; 96360; 96361; 96372; 97162; 99218; 99284; J7030; 90686; A4216; G0378

== ENCOUNTER 2021-03-19 18:50 | Inpatient (IN) | payer MEDICAID, SELFPAY ==
[2021-03-19 18:51] VITALS: BP 79/52; PULSE 98; RESP 30; TEMP 35.7; O2SAT 97; BMI 23.6
[2021-03-19] MEDS: 0.9% Normal Saline 1,000 ML 1000 ML IV (19:05)
[2021-03-19 19:15] LABS: Bedside Glucose > 500 mg/dL (70-110)
[2021-03-19 19:17] VITALS: BP 102/50; PULSE 98; RESP 27; TEMP 35.9; O2SAT 99
--- NOTE | 2021-03-19 19:59 | EKG12_ITS ---
Test Reason : DYSRHYTHMIA Blood Pressure : / mmHG Vent. Rate : 102 BPM Atrial Rate : 102 BPM P-R Int : 120 ms QRS Dur : 082 ms QT Int : 422 ms P-R-T Axes : 063 011 062 degrees QTc Int : 550 ms Sinus tachycardia with Premature atrial complexes Low voltage QRS Septal infarct , age undetermined Prolonged QT Abnormal ECG Confirmed by FREEMAN CORONADO, MARTÍN ([id number]), content editor CORINNA BRAVO ([id number]) on 03/22/2021 1:00:11 PM Referred By: FLORENCIO Confirmed By:MARTÍN MILLARD MD
--- NOTE | 2021-03-19 20:12 | EX.ED.DYSGE1 ---
HPI History of Present Illness Chief Complaint: Hypotension Informant: patient Narrative Narrative: Patient brought in by EMS reporting increasing fatigue. She states home Covid testing 7 days ago was positive. She reports her son had symptoms. She is nonvaccinated. No infections in the past. History of fibromyalgia and diabetes. She denied fevers, headache, cough vomiting or diarrhea. She does admit to loss of taste or smell. Due to her being fatigue poor informant and difficulty trying to get answers from her. Denies any urinary symptoms. Reported by EMS hypotension. PFSH PFS Medical History Arthritis Back problem Bursitis Carpal tunnel syndrome Depression Diabetes Fibromyalgia GERD (gastroesophageal reflux disease) Headache High cholesterol Osteoarthritis Seasonal allergic conjunctivitis ULCERS Vision problems Vitamin deficiency Home Medications NK 03/19/21 [History Last Taken Unknown] Allergy/AdvReac Type Severity Reaction Status Date / Time etodolac [From Lodine] Allergy Rash Verified 03/19/21 18:50 Family History Mother Arthritis Hypertension Melanoma Father Arthritis Bleeding disorder Diabetes Heart disease High cholesterol Son Kidney disease H/O psychiatric care Uncle Alcoholism Liver disease Grandmother Arthritis Cancer Lung cancer Sister Epilepsy Melanoma Skin cancer Aunt CVA (cerebral vascular accident) Surgical History H/O knee surgery History of carpal tunnel surgery History of hysterectomy Social History Smoking Status: Former smoker details: RARELY substance use type: does not use ROS ROS ED Constitutional Constitutional ED: Denies chills, fever(s) or sweats Eyes Eyes: Denies change in vision ENT ENT ED: Denies dysphagia or sore throat Cardiovascular Cardiovascular: Denies chest pain, leg edema, palpitations or racing heartbeat Respiratory/Chest Respiratory/Chest: Denies cough, dyspnea or dyspnea on exertion Gastrointestinal Gastrointestinal: Denies abdominal pain, diarrhea, nausea or vomiting Genitourinary Genitourinary ED: Denies dysuria, hematuria or urinary frequency Musculoskeletal Musculoskeletal: Denies back pain, extremity pain or neck pain Integumentary Denies rash or wounds Neurologic Neurologic: Denies headache(s), paresthesias or weakness EXAM Physical Exam Const Vital Signs: 03/19/21 18:51 03/19/21 19:13 03/19/21 19:17 Temperature 96.2 F L 96.6 F L Temperature Source Temporal Temporal Pulse Rate 98 98 Respiratory Rate 30 H 27 H Respiratory Effort Short of Breath Labored Respiratory Pattern Hyperpnea Blood Pressure 79/52 L 102/50 L Blood Pressure Mean 61 67 Pulse Ox 97 99 Oxygen Delivery Method Room Air Room Air Positive well nourished and well developed Constitutional Narrative: Fatigued appearing with slight tachypnea. Not hypoxic. Pulse ox 97 on room air. General Appearance ED: well developed HEENT Reports dry mucous membranes HEENT Narrative: Mild dry mucosal membranes. normocephalic and atraumatic Mouth ED: Yes dry mucous membranes Mouth: dry mucous membranes Eyes PERRL, EOMs intact bilaterally and conjunctivae normal General Eye ED: Yes normal appearance of both eyes Neck no lymphadenopathy and supple General: Negative for tenderness Chest Wall Chest: Negative for tenderness Resp normal air movement Resp Narrative: slight tachypnea. Effort and Inspection: symmetric chest movement; Negative for respiratory distress or retractions Cardio regular rate, regular rhythm and no murmurs Peripheral Pulses: pulses 2+ throughout GI normal to inspection, nondistended, normoactive bowel sounds and non-tender Palpation: Negative for guarding or rebound tenderness present Back/Spine no CVA tenderness and no thoracic nor lumbar tenderness Extremity normal to inspection General Extremety ED: Negative for edema or tenderness General Extremity: Negative for edema Neuro no sensory deficits noted Neuro Narrative: Following some commands, however difficult trying to answer all questions. Sensorium / Orientation: awake and alert Skin no rashes or lesions noted and no wounds MDM MDM MDM Narrative Medical decision making narrative: Patient reports home Covid testing positive a week ago with exposure. Dry mucosal membranes tachycardic on exam EKG was sinus rhythm. She is transiently hypotensive responding to fluids. However patient was difficult historian. Diabetic history. Blood glucose was over 500. Labs checked along with acetone. Glucose 621 gap of 31 large ketones. Sodium 128. Urine negative for infection. Chest x-ray read by myself and reviewed by radiology mild infiltrates lower lobes. She is not hypoxic. VBG with pH of 7.0. She was given 2 L of fluid and started on insulin drip. I spoke with hospitalist Dr. Wilkins for admission to the ICU. Lab Data Labs: Laboratory Results - last 24 hr 03/19/21 03/19/21 03/19/21 19:05 19:05 19:05 WBC 14.0 H RBC 4.89 Hgb 13.8 Hct 41.2 MCV 84.3 MCH 28.2 MCHC 33.5 RDW Std Deviation 40.1 RDW Coeff of Elio 13.0 Plt Count 212 MPV 10.2 Immature Gran % (Auto) 4.100 H Neut % (Auto) 46.1 L Lymph % (Auto) 10.3 L [place] % (Auto) 12.4 H Eos % (Auto) 26.9 H Baso % (Auto) 0.2 Absolute Neuts (auto) 6.5 Absolute Lymphs (auto) 1.44 Nucleated RBC % 0 Differential Comment SCANNED Diff Path Review May foll Sodium 128 L Potassium 3.8 Chloride 90 L Carbon Dioxide 7.0 L* Anion Gap 31 H BUN 73 H Creatinine 1.64 H Estim Creat Clear Calc 43.37 Est GFR (MDRD) Af Amer 43 L Est GFR (MDRD) Non-Af 35 L BUN/Creatinine Ratio 44.5 H Glucose 621 H* Calcium 8.7 Magnesium 2.6 Total Bilirubin 0.60 AST 35 ALT 30 Alkaline Phosphatase 124 H C-React Prot Ext Range 73.00 H Total Protein 7.1 Albumin 2.4 L Globulin 4.7 H Albumin/Globulin Ratio 0.5 L Urine Color Urine Clarity Urine pH Ur Specific [place] Urine Protein Urine Glucose (UA) Urine Ketones Urine Occult Blood Urine Nitrite Urine Bilirubin Urine Urobilinogen Ur Leukocyte Esterase Urine RBC Urine WBC Ur Squamous Epith Cells Amorphous Sediment Urine Bacteria Hyaline Casts Urine Mucus Acetone Level LARGE H POC Glucose 03/19/21 03/19/21 19:12 20:36 WBC RBC Hgb Hct MCV MCH MCHC RDW Std Deviation RDW Coeff of Elio Plt Count MPV Immature Gran % (Auto) Neut % (Auto) Lymph % (Auto) [place] % (Auto) Eos % (Auto) Baso % (Auto) Absolute Neuts (auto) Absolute Lymphs (auto) Nucleated RBC % Differential Comment Diff Path Review Sodium Potassium Chloride Carbon Dioxide Anion Gap BUN Creatinine Estim Creat Clear Calc Est GFR (MDRD) Af Amer Est GFR (MDRD) Non-Af BUN/Creatinine Ratio Glucose Calcium Magnesium Total Bilirubin AST ALT Alkaline Phosphatase C-React Prot Ext Range Total Protein Albumin Globulin Albumin/Globulin Ratio Urine Color Yellow Urine Clarity Clear Urine pH 5.0 Ur Specific [place] 1.025 Urine Protein 100 H Urine Glucose (UA) 1000 H Urine Ketones 150 A* Urine Occult Blood 250 H Urine Nitrite Negative Urine Bilirubin Negative Urine Urobilinogen Normal Ur Leukocyte Esterase Negative Urine RBC 0 SEEN Urine WBC 0-5 SEEN Ur Squamous Epith Cells 0 SEEN Amorphous Sediment 1+ Urine Bacteria 1+ Hyaline Casts 5-10 SEEN Urine Mucus 0 SEEN Acetone Level POC Glucose > 500 H* Radiography Chest X-Ray - ED: 1 View, Read by ED Physician, Read by Radiologist, Right Infiltrate and Left Infiltrate EKG Initial EKG: Attestation: I personally reviewed and interpreted this EKG as follows: Comments: Sinus rhythm 102, no ST or T wave changes. Critical Care Time Critical Care Time: Yes Critical care time (excluding procedures): Discussing w/Patient &/or Family/Community Specialist, Arranging Admission or Transfer, Performing Direct Patient Care at Bedside and - (44 minutes) Discharge Plan Triage Chief Complaint: Hypotension ED Provider: Kvng Herrera Dx/Rx/DC Orders Clinical Impression: Diabetic ketoacidosis, Pneumonia due to 2019-nCoV, History of diabetes mellitus Primary Care Provider: Sapna Ray Disposition Disposition: Acute Care Hospital
[2021-03-19 20:27] LABS: ALB/GLOB Ratio 0.5 RATIO (0.9-2.4); AST(SGOT) 35 U/L (15-37); Alanine Aminotransfer ALT/SGPT 30 U/L (13-56); Albumin, Serum 2.4 g/dL (3.2-5.0); Alkaline Phosphatase 124 U/L (45-117); Anion Gap 31 (5-15); BUN 73 mg/dL (7-18); BUN/Creat Ratio 44.5 RATIO (10-20); Calcium,Total 8.7 mg/dL (8.5-10.1); Chloride 90 mmol/L (98-107); Creatinine, Serum 1.64 mg/dL (0.55-1.02); EST Glomerular Filtration Rate 35 mL/min (>60); Est Glom Filt Rate - Afr Amer 43 mL/min (>60); Estimated Creatinine Clearance 43.37 ml/min; Globulin 4.7 g/dL (2.2-4.2); Glucose 621 mg/dL (74-106); Magnesium 2.6 mg/dL (1.6-2.6); Potassium 3.8 mmol/L (3.5-5.1); Protein, Total 7.1 g/dL (6.4-8.2); Sodium Level 128 mmol/L (136-145)
[2021-03-19 20:42] LABS: Absolute Lymphocyte Count 1.44 X10^3/uL (0.83-4.51); Absolute Neutrophil Count 6.5 X10^3/uL (2.0-7.7); Basophil# 0.03 X10^3/uL; Basophil% 0.2 % (0-1); Eosinophils% 26.9 % (0-5); Hematocrit 41.2 % (37-47); Hemoglobin 13.8 g/dL (12.0-15.0); Lymphocyte # 1.44 X10^3/ul (0.83-4.51); Lymphocyte % 10.3 % (19-41); Mean Corp Hgb Conc 33.5 g/dL (32-36); Mean Corpuscular Hgb 28.2 pg (27.0-32.0); Mean Corpuscular Volume 84.3 fL (81-99); Mean Platelet Vol. 10.2 fl (6.2-12.0); Monocyte# 1.73 X10^3/uL; Monocyte% 12.4 % (0-10); NRBC Flagged by Analyzer 0 % (0-5); Neutrophil # 6.46 X10^3/uL (2.7-7.7); Neutrophil % 46.1 % (47-70); POSITIVE DIFFERENTIAL YES; POSITIVE MORPHOLOGY YES; Platelet Count 212 K/mm3 (150-450); RBC Distribution Width SD 40.1 fl (35.1-43.9); Red Blood Count 4.89 M/mm3 (4.2-5.4)
[2021-03-19 20:44] LABS: Differential Indicated SCAN CRITERIA MET; Eosinophil# 3.76 X10^3/uL
[2021-03-19 20:44] LABS: Mucous, Urine 0 SEEN /hpf (<or=2+); Red Blood Cells-Urine 0 SEEN /hpf (0-5); Squamous Epithelial Cells - UA 0 SEEN /hpf (5-10)
--- NOTE | 2021-03-19 20:45 | RAD_ITS ---
STUDY: X-RAY CHEST REASON FOR EXAM: Female, 50 years old. CHEST PAIN COVID TECHNIQUE: XR Chest 1 View COMPARISON: 11/27/2017 FINDINGS: There is no demonstrated pleural abnormality. There is bilateral infiltrate. Normal size heart. Normal mediastinum and peg. Normal visualized pulmonary arteries. Normal visualized aortic arch and descending thoracic aorta. There are diffuse degenerative changes of the visualized thoracic spine. There is degenerative osteoarthritis of the bilateral shoulders. There is no demonstrated abnormality of the visualized soft tissue structures of the upper abdomen. RAD/Chest 1 View (Portable) IMPRESSION: Minimal lower lobe infiltrates. Electronically Signed: Hung Laguerre MD at 20:57 EST , Service support ,
[2021-03-19 20:50] LABS: Color, Urine Yellow (Yellow); Glucose, Dipstick 1000 mg/dl (Normal); Leukocyte Esterase-Dipstick Negative /ul (Negative); Nitrite-Dipstick Negative (Negative); Occult Blood-Urine 250 /ul (Negative); Protein-Dipstick 100 mg/dl (Negative); Specific Gravity, Urine 1.025 (1.002-1.030); Urine Bilirubin Dipstick Negative (Negative); Urine Clarity Clear (Clear); Urine Urobilinogen Normal (Normal)
[2021-03-19] MEDS: 0.9% Normal Saline 1,000 ML 999 ML IV (20:50)
--- NOTE | 2021-03-19 20:50 | ED.RN ---
THIS RN SPOKE WITH PTS MOTHER ABOUT HER STATUS AFTER OBTAINING PATIENT CONSENT. MOTHER VERBALIZED UNDERSTANDING OF PATIENT CONDITION AND WILL CALL BACK FOR UPDATES
[2021-03-19 20:52] LABS: Ketone-Dipstick 150 mg/dl (Negative)
[2021-03-19 21:09] LABS: Hyaline Cast 5-10 SEEN /lpf (0-5)
[2021-03-19 21:10] LABS: Amorphous Sediment 1+; Bacteria 1+ /hpf (None Seen); White Blood Cells 0-5 SEEN /hpf (0-5)
[2021-03-19 21:29] LABS: Differential Comment SCANNED
[2021-03-19 22:00] VITALS: BP 94/60; PULSE 103; RESP 31; RESP 34; TEMP 35.8; O2SAT 96
--- NOTE | 2021-03-19 22:23 | HP.PCM.HOS_ITS ---
HPI - General General Date of Admission: 03/19/21 Date of Service: 03/19/21 Chief Complaint: Severe fatigue, mental status change, hypotension HPI Narrative EMILY CAGE, is a 50 F who presents to the ER at [facility] after being brought in by squad from her home due to severe weakness and confusion. Patient has recently been diagnosed with COVID-19 infection 7 days ago. Patient was noted to be hypotensive by squad in route to ER. Evaluation in the ER included labs which showed an elevated white blood cell count 14,000, chemistry profile was grossly abnormal with a sodium of 128, carbon dioxide of 7, chloride of 90, creatinine of 1.64, and BUN of 73. Patient's glucose was 621, and her anion gap was 31. Urinalysis revealed elevated urine protein, glucose was elevated also, ketones were elevated, patient had occult blood but no RBCs were seen, 0-5 WBCs were seen and the urine bacteria was +1. Chest x-ray was read out by myself as normal, patient did not require supplemental oxygen. Patient was given IV fluids in the emergency room and an insulin drip was started. Patient will be admitted to ICU for DKA, metabolic encephalopathy, and dehydration. Further note: ER nursing states that the patient told them that she was taking none of her medications. [facility] Medical History Arthritis Back problem Bursitis Carpal tunnel syndrome Depression Diabetes Fibromyalgia GERD (gastroesophageal reflux disease) Headache High cholesterol Osteoarthritis Seasonal allergic conjunctivitis ULCERS Vision problems Vitamin deficiency Home Medications NK 03/19/21 [History Last Taken Unknown] Allergy/AdvReac Type Severity Reaction Status Date / [facility] Allergy Rash Verified 03/19/21 18:50 Family History Mother Arthritis Hypertension Melanoma Father Arthritis Bleeding disorder Diabetes Heart disease High cholesterol Son Kidney disease H/O psychiatric care Uncle Alcoholism Liver disease Grandmother Arthritis Cancer Lung cancer Sister Epilepsy Melanoma Skin cancer Aunt CVA (cerebral vascular accident) Surgical History H/O knee surgery History of carpal tunnel surgery History of hysterectomy Social History Smoking Status: Former smoker details: RARELY substance use type: does not use ROS ROS Narrative Review of systems was unobtainable due to metabolic encephalopathy Review of Systems ROS Unobtainable: due to encephalopathy Vital Signs Vital Signs Vital Signs: 03/19/21 18:51 03/19/21 19:13 03/19/21 19:17 Temperature 96.2 F L 96.6 F L Temperature Source Temporal Temporal Pulse Rate 98 98 Respiratory Rate 30 H 27 H Respiratory Effort Short of Breath Labored Respiratory Pattern Hyperpnea Blood Pressure 79/52 L 102/50 L Blood Pressure Mean 61 67 Pulse Ox 97 99 Oxygen Delivery Method Room Air Room Air Weight Weight: 72.575 kg Body Mass Index (BMI) 23.6 Physical Exam Const alert and no apparent distress Constitutional Narrative: Patient appeared dehydrated and unwell General Appearance: well kempt and well developed Orientation / Consciousness: awake, oriented to person, oriented to place and oriented to time HEENT normocephalic, head/scalp atraumatic and hearing grossly normal bilaterally Mouth: moist mucous membranes abnormal parched Eyes PERRL, EOMs intact bilaterally and conjunctivae normal Neck nuchal rigidity, supple, no JVD, thyroid normal and no carotid bruits General: trachea midline Resp normal respiratory effort, no retractions, no use of accessory muscles and clear to auscultation bilaterally Auscultation: Negative for rales, rhonchi or wheezes Cardio regular rate, regular rhythm, S1 normal heart sound, S2 normal heart sound, no murmurs, no rub and no gallops GI normal to inspection, nondistended, normoactive bowel sounds, soft to palpation, non-tender and non-distended Extremity no clubbing, cyanosis or edema Skin no rashes or lesions noted General Skin Exam: no breakdown Neuro CN's II-XII intact bilaterally and no sensory deficits noted Neuro Narrative: Patient is alert, she responds appropriately to some simple questions but further information is unobtainable from this examiner Sensorium / Orientation: alert Psych thought process normal Psych Narrative: Patient has a flat affect, she does not answer some questions appropriately Results Lab / Micro Data Result Diagrams: 03/19/21 19:05 03/19/21 19:05 Labs: Laboratory Results - last 24 hr 03/19/21 19:05: WBC 14.0 H, RBC 4.89, Hgb 13.8, Hct 41.2, MCV 84.3, MCH 28.2, MCHC 33.5, RDW Std Deviation 40.1, RDW Coeff of Elio 13.0, Plt Count 212, MPV 10.2, Immature Gran % (Auto) 4.100 H, Neut % (Auto) 46.1 L, Lymph % (Auto) 10.3 L, [place] % (Auto) 12.4 H, Eos % (Auto) 26.9 H, Baso % (Auto) 0.2, Absolute Neuts (auto) 6.5, Absolute Lymphs (auto) 1.44, Nucleated RBC % 0, Differential Comment SCANNED, Diff Path Review August03/19/21 19:05: Sodium 128 L, Potassium 3.8, Chloride 90 L, Carbon Dioxide 7.0 L*, Anion Gap 31 H, BUN 73 H, Creatinine 1.64 H, Estim Creat Clear Calc 43.37, Est GFR (MDRD) Af Amer 43 L, Est GFR (MDRD) Non-Af 35 L, BUN/Creatinine Ratio 44.5 H, Glucose 621 H*, Calcium 8.7, Magnesium 2.6, Total Bilirubin 0.60, AST 35, ALT 30, Alkaline Phosphatase 124 H, C-React Prot Ext Range 73.00 H, Total Protein 7.1, Albumin 2.4 L, Globulin 4.7 H, Albumin/Globulin Ratio 0.5 L 03/19/21 19:05: Acetone Level LARGE H 03/19/21 19:12: POC Glucose > 500 H* 03/19/21 20:36: Urine Color Yellow, Urine Clarity Clear, Urine pH 5.0, Ur Specific [place] 1.025, Urine Protein 100 H, Urine Glucose (UA) 1000 H, Urine Ketones 150 A*, Urine Occult Blood 250 H, Urine Nitrite Negative, Urine Bilirubin Negative, Urine Urobilinogen Normal, Ur Leukocyte Esterase Negative, Urine RBC 0 SEEN, Urine WBC 0-5 SEEN, Ur Squamous Epith Cells 0 SEEN, Amorphous Sediment 1+, Urine Bacteria 1+, Hyaline Casts 5-10 SEEN, Urine Mucus 0 SEEN Micro: Microbiology 03/19/21 20:30 Nasal Secretion SARS-CoV-2 Antigen (Rapid) - Final SARS-CoV-2 (COVID 19) Assessment & Plan Assessment/Plan (1) Diabetes mellitus: PLAN: 1. Diabetic ketoacidosis-most probably secondary to noncompliance with home medications, patient will be admitted to ICU, she will be placed on an insulin drip and given vigorous IV fluids, labs will be monitored #2 dehydration-patient will receive ample fluids, labs will be followed #3 + COVID-19 status without evidence of COVID-19 pneumonia or hypoxia-patient will need to be in droplet precautions but she does not require treatment at this time according to guidelines. #4 diabetes mellitus-unsure whether the patient has type I or type 2 diabetes at this point, she is noncompliant with treatment #5 leukocytosis-probably secondary to DKA #6 noncompliant with home medications-again patient told nursing that she was no longer taking any of her medications at home, for now, I have not written for any of her previous medications, this will need to be confirmed tomorrow by nursing if the patient is more alert or we can get information from the patient's parents. #7 hyponatremia-secondary to DKA, labs will be monitored I do not feel the patient has a urinary tract infection at this time Charges/Coding Visit Charges Inpatient E&M: 91538 Init Hosp L3
[2021-03-19 23:00] VITALS: BP 90/56; PULSE 105; RESP 30; TEMP 35.8; O2SAT 95
[2021-03-20] VITALS (32 sets, daily range): BP systolic 101–145; BP diastolic 48–96; PULSE 99–122; RESP 14–33; TEMP 36–37.2; O2SAT 94–100; BMI 25.7
[2021-03-20 00:45] LABS: Bedside Glucose 449 mg/dL (70-110)
[2021-03-20 00:45] LABS: Bedside Glucose 492 mg/dL (70-110)
[2021-03-20 00:45] LABS: Bedside Glucose > 500 mg/dL (70-110)
[2021-03-20] MEDS: 0.9% Normal Saline 1,000 ML 250 ML IV (00:58)
[2021-03-20] MEDS: 0.9% Normal Saline 1,000 ML 999 ML IV (00:58)
[2021-03-20 02:26] LABS: Bedside Glucose 370 mg/dL (70-110)
[2021-03-20 02:26] LABS: Bedside Glucose 225 mg/dL (70-110)
[2021-03-20 02:46] LABS: Anion Gap 28 (5-15); BUN 71 mg/dL (7-18); BUN/Creat Ratio 52.2 RATIO (10-20); Calcium,Total 8.3 mg/dL (8.5-10.1); Chloride 101 mmol/L (98-107); Creatinine, Serum 1.36 mg/dL (0.55-1.02); EST Glomerular Filtration Rate 44 mL/min (>60); Est Glom Filt Rate - Afr Amer 53 mL/min (>60); Estimated Creatinine Clearance 43.21 ml/min; Glucose 400 mg/dL (74-106); Sodium Level 136 mmol/L (136-145)
[2021-03-20 04:26] LABS: Bedside Glucose 241 mg/dL (70-110)
[2021-03-20 04:29] LABS: Absolute Lymphocyte Count 0.97 X10^3/uL (0.83-4.51); Absolute Neutrophil Count 7.2 X10^3/uL (2.0-7.7); Basophil# 0.06 X10^3/uL; Basophil% 0.6 % (0-1); Eosinophil# 0.01 X10^3/uL; Eosinophils% 0.1 % (0-5); Hematocrit 34.7 % (37-47); Hemoglobin 12.1 g/dL (12.0-15.0); Lymphocyte # 0.97 X10^3/ul (0.83-4.51); Mean Corp Hgb Conc 34.9 g/dL (32-36); Mean Corpuscular Hgb 28.4 pg (27.0-32.0); Mean Corpuscular Volume 81.5 fL (81-99); Mean Platelet Vol. 9.4 fl (6.2-12.0); Monocyte# 1.12 X10^3/uL; Monocyte% 11.5 % (0-10); NRBC Flagged by Analyzer 0 % (0-5); Neutrophil # 7.19 X10^3/uL (2.7-7.7); Neutrophil % 73.9 % (47-70); Platelet Count 120 K/mm3 (150-450); RBC Distribution Width CV 12.7 % (11.6-14.6); RBC Distribution Width SD 38.1 fl (35.1-43.9); Red Blood Count 4.26 M/mm3 (4.2-5.4); White Blood Count 9.7 K/mm3 (4.4-11.0)
[2021-03-20 04:54] LABS: Anion Gap 25 (5-15); BUN 60 mg/dL (7-18); Calcium,Total 7.5 mg/dL (8.5-10.1); Chloride 105 mmol/L (98-107); Creatinine, Serum 1.09 mg/dL (0.55-1.02); EST Glomerular Filtration Rate 57 mL/min (>60); Est Glom Filt Rate - Afr Amer 68 mL/min (>60); Estimated Creatinine Clearance 53.91 ml/min; Glucose 278 mg/dL (74-106); Potassium 3.3 mmol/L (3.5-5.1); Sodium Level 138 mmol/L (136-145)
[2021-03-20 05:16] LABS: Bedside Glucose 269 mg/dL (70-110)
[2021-03-20 05:16] LABS: Bedside Glucose 230 mg/dL (70-110)
[2021-03-20 06:20] LABS: Blood Gas Specimen Type VEN; O2 Delivery Device Room Air; VBG BASE EXCESS -26 mmol/L (-1.0-3.5); VBG PO2 61 mmHg (25-40); VBG SO2 80 % (50-70); VBG TCO2 < 5 mmol/L (23-33); VBG pCO2 13.9 mmHg (41-51); VBG pH 7.06 (7.32-7.42)
[2021-03-20 06:24] LABS: VBG Bicarbonate 4 mmol/L (22-26)
[2021-03-20 07:00] LABS: Bedside Glucose 259 mg/dL (70-110)
[2021-03-20] MEDS: Heparin Injection (Vial) 5,000 UNIT/ML VIAL 5000 UNIT SC ×2 (08:22→21:42)
[2021-03-20 08:43] LABS: Anion Gap 19 (5-15); BUN 51 mg/dL (7-18); BUN/Creat Ratio 47.2 RATIO (10-20); Calcium,Total 7.7 mg/dL (8.5-10.1); Chloride 108 mmol/L (98-107); Creatinine, Serum 1.08 mg/dL (0.55-1.02); EST Glomerular Filtration Rate 57 mL/min (>60); Est Glom Filt Rate - Afr Amer 69 mL/min (>60); Estimated Creatinine Clearance 54.41 ml/min; Glucose 271 mg/dL (74-106); Potassium 3.2 mmol/L (3.5-5.1); Sodium Level 140 mmol/L (136-145)
[2021-03-20 11:01] LABS: Bedside Glucose 268 mg/dL (70-110)
[2021-03-20 11:01] LABS: Bedside Glucose 218 mg/dL (70-110)
[2021-03-20 11:01] LABS: Bedside Glucose 266 mg/dL (70-110)
[2021-03-20 11:01] LABS: Bedside Glucose 254 mg/dL (70-110)
[2021-03-20 11:01] LABS: Bedside Glucose 261 mg/dL (70-110)
[2021-03-20 12:20] LABS: Bedside Glucose 213 mg/dL (70-110)
[2021-03-20 12:33] LABS: Anion Gap 12 (5-15); BUN 42 mg/dL (7-18); Calcium,Total 7.7 mg/dL (8.5-10.1); Chloride 112 mmol/L (98-107); EST Glomerular Filtration Rate 62 mL/min (>60); Est Glom Filt Rate - Afr Amer 76 mL/min (>60); Estimated Creatinine Clearance 58.76 ml/min; Glucose 247 mg/dL (74-106); Potassium 3.2 mmol/L (3.5-5.1); Sodium Level 140 mmol/L (136-145)
--- NOTE | 2021-03-20 13:39 | PN.HOSP_ITS ---
Subjective Subjective Patient seen and examined. She was admitted with complaint of severe fatigue and altered mental status as well as hypotension and was found to be in DKA. She had also been diagnosed with Covid about 7 days prior to admission. She has been managed for acute metabolic encephalopathy, DKA and dehydration as well as COVID-19 infection. Patient did not really have any complaints this morning. However she was leth argic though arousable. She did not really answer many questions. She is on insulin drip. Objective Data Objective Data Vital Signs: Vital Signs Temp Pulse Resp BP Pulse Ox 98.2 F 119 H 32 H 109/59 L 98 03/20/21 13:00 03/20/21 13:00 03/20/21 13:00 03/20/21 13:00 03/20/21 13:00 Oxygen Delivery Method Room Air Weight: 152 lb 12.485 oz Body Mass Index (BMI) 25.7 Intake & Output: Intake and Output for Last 24 Hours 03/18/21 03/19/21 03/20/21 23:59 23:59 23:59 Intake Total 1999 3555.00 / 3555.00 Output Total 800 / 800 Balance 1999 2755.00 / 2755.00 Lab / Micro Data Result Diagrams: 03/20/21 04:10 03/20/21 12:00 Labs: Laboratory Results - last 24 hr 03/19/21 19:05: WBC 14.0 H, RBC 4.89, Hgb 13.8, Hct 41.2, MCV 84.3, MCH 28.2, MCHC 33.5, RDW Std Deviation 40.1, RDW Coeff of Elio 13.0, Plt Count 212, MPV 10.2, Immature Gran % (Auto) 4.100 H, Neut % (Auto) 46.1 L, Lymph % (Auto) 10.3 L, [place] % (Auto) 12.4 H, Eos % (Auto) 26.9 H, Baso % (Auto) 0.2, Absolute Neuts (auto) 6.5, Absolute Lymphs (auto) 1.44, Nucleated RBC % 0, Differential Comment SCANNED, Diff Path Review August03/19/21 19:05: Sodium 128 L, Potassium 3.8, Chloride 90 L, Carbon Dioxide 7.0 L*, Anion Gap 31 H, BUN 73 H, Creatinine 1.64 H, Estim Creat Clear Calc 43.37, Est GFR (MDRD) Af Amer 43 L, Est GFR (MDRD) Non-Af 35 L, BUN/Creatinine Ratio 44.5 H, Glucose 621 H*, Calcium 8.7, Magnesium 2.6, Total Bilirubin 0.60, AST 35, ALT 30, Alkaline Phosphatase 124 H, C-React Prot Ext Range 73.00 H, Total Protein 7.1, Albumin 2.4 L, Globulin 4.7 H, Albumin/Globulin Ratio 0.5 L 03/19/21 19:05: Acetone Level LARGE H 03/19/21 19:12: POC Glucose > 500 H* 03/19/21 20:36: Urine Color Yellow, Urine Clarity Clear, Urine pH 5.0, Ur Specific [place] 1.025, Urine Protein 100 H, Urine Glucose (UA) 1000 H, Urine Ketones 150 A*, Urine Occult Blood 250 H, Urine Nitrite Negative, Urine Bilirubin Negative, Urine Urobilinogen Normal, Ur Leukocyte Esterase Negative, Urine RBC 0 SEEN, Urine WBC 0-5 SEEN, Ur Squamous Epith Cells 0 SEEN, Amorphous Sediment 1+, Urine Bacteria 1+, Hyaline Casts 5-10 SEEN, Urine Mucus 0 SEEN 03/19/21 22:25: POC Glucose 492 H* 03/19/21 23:03: POC Glucose > 500 H* 03/19/21 23:53: POC Glucose 449 H 03/20/21 00:45: Sodium 136, Potassium 3.0 L, Chloride 101, Carbon Dioxide 7.0 L* , Anion Gap 28 H, BUN 71 H, Creatinine 1.36 H, Estim Creat Clear Calc 43.21, Est GFR (MDRD) Af Amer 53 L, Est GFR (MDRD) Non-Af 44 L, BUN/Creatinine Ratio 52.2 H , Glucose 400 H, Calcium 8.3 L 03/20/21 00:45: POC Glucose 370 H 03/20/21 01:58: POC Glucose 225 H 03/20/21 02:58: POC Glucose 230 H 03/20/21 04:10: Sodium 138, Potassium 3.3 L, Chloride 105, Carbon Dioxide 8.0 L* , Anion Gap 25 H, BUN 60 H, Creatinine 1.09 H, Estim Creat Clear Calc 53.91, Est GFR (MDRD) Af Amer 68, Est GFR (MDRD) Non-Af 57 L, BUN/Creatinine Ratio 55.0 H, Glucose 278 H, Calcium 7.5 L 03/20/21 04:10: WBC 9.7, RBC 4.26, Hgb 12.1, Hct 34.7 L, MCV 81.5, MCH 28.4, MCHC 34.9, RDW Std Deviation 38.1, RDW Coeff of Elio 12.7, Plt Count 120 L, MPV 9.4, Immature Gran % (Auto) 3.900 H, Neut % (Auto) 73.9 H, Lymph % (Auto) 10.0 L , [place] % (Auto) 11.5 H, Eos % (Auto) 0.1, Baso % (Auto) 0.6, Absolute Neuts (auto) 7.2, Absolute Lymphs (auto) 0.97, Nucleated RBC % 0 03/20/21 04:14: POC Glucose 241 H 03/20/21 05:11: POC Glucose 269 H 03/20/21 06:10: POC Glucose 268 H 03/20/21 06:57: POC Glucose 259 H 03/20/21 08:00: Sodium 140, Potassium 3.2 L, Chloride 108 H, Carbon Dioxide 13.0 L, Anion Gap 19 H, BUN 51 H, Creatinine 1.08 H, Estim Creat Clear Calc 54.41, Est GFR (MDRD) Af Amer 69, Est GFR (MDRD) Non-Af 57 L, BUN/Creatinine Ratio 47.2 H, Glucose 271 H, Calcium 7.7 L 03/20/21 08:01: POC Glucose 261 H 03/20/21 08:53: POC Glucose 218 H 03/20/21 09:56: POC Glucose 254 H 03/20/21 10:56: POC Glucose 266 H 03/20/21 11:50: POC Glucose 213 H 03/20/21 12:00: Sodium 140, Potassium 3.2 L, Chloride 112 H, Carbon Dioxide 16.0 L, Anion Gap 12, BUN 42 H, Creatinine 1.00, Estim Creat Clear Calc 58.76, Est GFR (MDRD) Af Amer 76, Est GFR (MDRD) Non-Af 62, BUN/Creatinine Ratio 42.0 H, Glucose 247 H, Calcium 7.7 L Micro: Microbiology 03/19/21 20:30 Nasal Secretion SARS-CoV-2 Antigen (Rapid) - Final SARS-CoV-2 (COVID 19) ABG Data ABG results: ABG 03/19/21 21:28 Specimen Type ROSEMARIE VBG pH 7.06 L* VBG pO2 61 H VBG HCO3 4 L VBG Total CO2 < 5 L VBG O2 Sat (Calc) 80 H VBG Base Excess -26 L POC Mix VBG pCO2 Pt Tmp 13.9 L* O2 Delivery Device Room Air Crit Call To/Read Back Yes Blood Gas Notified Whom Le Blood Gas Notified Time 21:29:48 Radiography Diagnostic Testing: Radiology Impression Chest X-Ray 03/19/21 20:45 IMPRESSION: Minimal lower lobe infiltrates. Electronically Signed: Hung Laguerre MD at 20:57 EST , Service support , Physical Exam Const Orientation / Consciousness: lethargic Exam Limitations: altered mental status HEENT head/scalp atraumatic Head and Scalp: normocephalic Mouth: dry mucous membranes Eyes PERRL, EOMs intact bilaterally and conjunctivae normal Neck no lymphadenopathy Resp no retractions, no use of accessory muscles and clear to auscultation bilaterally Resp Narrative: on 2L of oxygen by nasal canula, tachypneic Cardio regular rhythm, S1 normal heart sound, S2 normal heart sound and no murmurs Cardio Narrative: tachycardic GI normal to inspection, nondistended, normoactive bowel sounds, soft to palpation, non-tender and non-distended Extremity normal to inspection, full ROM and no clubbing, cyanosis or edema Peripheral Pulses: Yes pulses 2+ throughout Skin no rashes or lesions noted Neuro Neuro Narrative: lethargic Sensorium / Orientation: awake Psych Psych Narrative: flat affect Assessment & Plan Assessment/Plan (1) Diabetic ketoacidosis: (2) Pneumonia due to 2019-nCoV: (3) Acute hyponatremia: PLAN: #Acute metabolic encephalopathy due to DKA * currently on insulin drip. * remains tachypneic and tachycardic * critical care on board * titrate insulin according to DKA protocol. Accuchecks q4hrly * consult critical care. * #DKA: as above. She is a known diabetic, but doesnt seem to be complaint with her meds. #Hypokalemia: K is 3.2. Will replace and trend. #Anion gap acidosis due to DKA * resolving bicarb is up to 16, from 7 on admission. anion gap is now down to 12, from 28 on admission. * continue on insulin drip. Expect that it will improve as DKA resolves. * #SIRS criteria: * patient remains tachypneic and tachycardic. * this could be explained by DKA. * will get blood cultures. * urine showed 1+ bacteria, but 0-5 wbc. * she is also having chills, but no fever. She appears quite ill. * Will start on IV vancomycin and zosyn empirically whilst awaiting blood culture results. * #COVID 19 infection * Currently on room air. diagnosed with Covid about a week ago. Will monitor. * #Hyponatremia: resolved. Na is now 140. #Depression: On duloxetine #Hypertension: On lisinopril DVT prophylaxis: Lovenox Charges/Coding Visit Charges Inpatient E&M: 31028 Subs Hosp L3
[2021-03-20 14:03] LABS: Pathologist Review Reviewed
[2021-03-20 14:40] LABS: Bedside Glucose 226 mg/dL (70-110)
--- NOTE | 2021-03-20 15:03 | CASEMGMT ---
RN call mother Wanda for initial transition planning/care coordination assessment as patient is confused at this time. RN CM introduced self and role at [facility]. Wanda willing to participate in assessment and is able to answer all questions appropriately. Care providers, pharmacy, and demographics verified. Mother wishes for patient to discharge home, will monitor for need for HHC or CCN at discharge. Wanda states she has no further needs or concerns at this time. CM to follow for discharge planning needs that may arise. PCP: [facility] Specialists: Patient was to schedule appt with Dr. Garcia to get established, no appt in system Preferred Pharmacy: [facility] Insurance: [employer] Prescription Benefit: yes Living Will/HPOA: none LNOK: mother, father, son Living Arrangements: Patient lives with adult son and 2 other children in a single story home, no steps to enter. Patient is normally independent at home. Transportation: son DME/HHC: Patient had glucometer, testing supplies, insulin at home. Per mother patient does not always check BS and take insulin as prescribed. No previous HHC or SNF. Disposition Plan: Patient to discharge home with family support and follow-up plans in place. Will monitor for possible HHC or CCN for additional teaching for DM management. Fabiana GUERRERO, RN, CM
--- NOTE | 2021-03-20 15:57 | PCM.RX.CS ---
Consult Pharmacy has been consulted to manage selected antiobiotic: Vancomycin Type of Consult: New start Labs: Sodium 140 mmol/L (136-145) 03/20/21 12:00 Potassium 3.2 mmol/L (3.5-5.1) L 03/20/21 12:00 Chloride 112 mmol/L (98-107) H 03/20/21 12:00 Carbon Dioxide 16.0 mmol/L (21.0-32.0) L 03/20/21 12:00 Anion Gap 12 (5-15) 03/20/21 12:00 BUN 42 mg/dL (7-18) H 03/20/21 12:00 Creatinine 1.00 mg/dL (0.55-1.02) 03/20/21 12:00 Est GFR (MDRD) Af Amer 76 mL/min (>60) 03/20/21 12:00 Est GFR (MDRD) Non-Af 62 mL/min (>60) 03/20/21 12:00 BUN/Creatinine Ratio 42.0 RATIO (10-20) H 03/20/21 12:00 Glucose 247 mg/dL (74-106) H 03/20/21 12:00 Microbiology: Microbiology 03/19/21 20:30 Nasal Secretion SARS-CoV-2 Antigen (Rapid) - Final SARS-CoV-2 (COVID 19) Weight used for dosin.3 kg Estimated Creatinine Clearance: 58.8ML/MIN Goal Trough: 15-20 mcg/mL Pharmacy Plan for Drug Dosing: Give initial loading dose (25mg/kg) of 1750mg IV x1 as ordered, then continue with 750mg IV q12h per [facility] dosing protocol. Will order a trough to be drawn before the 4th total dose. Pharmacy Service will continue to monitor and adjust dosing as required. Follow-Up Labs: Trough Vancomycin Labs to be done on [date and time ordered]: 03/22/21 02:30
[2021-03-20 16:30] LABS: Bedside Glucose 260 mg/dL (70-110)
[2021-03-20 16:30] LABS: Bedside Glucose 212 mg/dL (70-110)
[2021-03-20 17:27] LABS: Anion Gap 10 (5-15); BUN 32 mg/dL (7-18); BUN/Creat Ratio 38.6 RATIO (10-20); Calcium,Total 7.9 mg/dL (8.5-10.1); Chloride 112 mmol/L (98-107); Creatinine, Serum 0.83 mg/dL (0.55-1.02); EST Glomerular Filtration Rate 77 mL/min (>60); Est Glom Filt Rate - Afr Amer 94 mL/min (>60); Glucose 275 mg/dL (74-106); Potassium 3.1 mmol/L (3.5-5.1); Sodium Level 140 mmol/L (136-145)
[2021-03-20] MEDS: Piperacil/Tazobactam 3.375 GM/50 ML ML IV (18:35)
[2021-03-20 18:36] LABS: Bedside Glucose 198 mg/dL (70-110)
[2021-03-20] MEDS: Dext 5%-0.45% NS 1,000 ML 125 ML IV (18:53)
[2021-03-20] MEDS: Potassium Chloride Oral Tablet 20 MEQ 40 MEQ PO (19:12)
[2021-03-20 20:20] LABS: Bedside Glucose 171 mg/dL (70-110)
[2021-03-20 20:20] LABS: Bedside Glucose 180 mg/dL (70-110)
[2021-03-20] MEDS: Acetaminophen 325 MG Tablet 650 MG PO (21:41)
[2021-03-20] MEDS: Insulin Lispro 100 UNIT/ML INSULN.PEN SC (21:49)
[2021-03-20 22:00] LABS: Bedside Glucose 230 mg/dL (70-110)
[2021-03-20 22:51] LABS: Bedside Glucose 264 mg/dL (70-110)
[2021-03-21] VITALS (17 sets, daily range): BP systolic 110–152; BP diastolic 57–82; PULSE 98–117; RESP 15–29; TEMP 36.6–37.7; O2SAT 97–100
[2021-03-21] MEDS: Piperacil/Tazobactam 3.375 GM/50 ML ML IV ×3 (01:15→18:36)
[2021-03-21] MEDS: Dext 5%-0.45% NS 1,000 ML 125 ML IV (02:35)
[2021-03-21 04:13] LABS: Hematocrit 30.7 % (37-47); Mean Corp Hgb Conc 35.8 g/dL (32-36); Mean Corpuscular Hgb 28.9 pg (27.0-32.0); Mean Corpuscular Volume 80.8 fL (81-99); Mean Platelet Vol. 9.4 fl (6.2-12.0); POSITIVE COUNT YES; POSITIVE DIFFERENTIAL YES; POSITIVE MORPHOLOGY YES; Platelet Count 82 K/mm3 (150-450); RBC Distribution Width CV 12.9 % (11.6-14.6); RBC Distribution Width SD 38.4 fl (35.1-43.9); White Blood Count 4.7 K/mm3 (4.4-11.0)
[2021-03-21 04:15] LABS: Differential Indicated MANUAL DIFF
[2021-03-21 04:21] LABS: Anion Gap 14 (5-15); BUN 19 mg/dL (7-18); BUN/Creat Ratio 26.4 RATIO (10-20); Calcium,Total 7.6 mg/dL (8.5-10.1); Chloride 109 mmol/L (98-107); Creatinine, Serum 0.72 mg/dL (0.55-1.02); EST Glomerular Filtration Rate 91 mL/min (>60); Est Glom Filt Rate - Afr Amer 110 mL/min (>60); Estimated Creatinine Clearance 81.62 ml/min; Glucose 384 mg/dL (74-106); Potassium 3.2 mmol/L (3.5-5.1); Sodium Level 141 mmol/L (136-145)
[2021-03-21 04:31] LABS: Absolute Lymphocyte Count 0.47 X10^3/uL (0.83-4.51); Absolute Neutrophil Count 3.7 X10^3/uL (2.0-7.7); Lymphocyte 10 % (19-41); Monocyte 6 % (0-10); Myelocyte 4 % (0-0); Neutrophil-Band 3 % (0-5); Neutrophil-Segmented 75 % (47-70); Promyelocyte 2 % (0-0); Total Cells Counted 100 (MANUAL DIFF)
[2021-03-21 04:32] LABS: Atypical Lymphocyte 1+ %; Platelet Estimate MOD DEC (ADEQ); Red Cell Morphology NORM C+C NORMAL (NORM C&C)
[2021-03-21] MEDS: 0.9% Normal Saline 1,000 ML 75 ML IV ×2 (05:23→18:36)
[2021-03-21] MEDS: Insulin Lispro 100 UNIT/ML INSULN.PEN SC ×4 (06:25→22:23)
[2021-03-21 06:36] LABS: Bedside Glucose 289 mg/dL (70-110)
[2021-03-21] MEDS: Potassium Chloride Oral Tablet 20 MEQ 40 MEQ PO (09:46)
[2021-03-21] MEDS: Heparin Injection (Vial) 5,000 UNIT/ML VIAL 5000 UNIT SC ×2 (09:47→22:25)
--- NOTE | 2021-03-21 10:20 | PN.HOSP_ITS ---
Subjective Subjective Patient seen and examined. She is more alert and communicative today. She complains of generalized pain. She was transitioned off of the insulin drip after her gap closed x2 and is now on subcu insulin. She tells me she has not been taking any of her subcu insulin at home because she has fibromyalgia and she gets bruised and feels a lot of pain after she uses subcu insulin. She has been planning on following up with endocrinology for an insulin pump. She remains tachypneic and tachycardic. She denies any chest pain or palpitations, dizziness, nausea vomiting or diarrhea. She denies any urinary symptoms. Review of systems otherwise negative. Objective Data Objective Data Vital Signs: Vital Signs Temp Pulse Resp BP Pulse Ox 97.8 F 117 H 27 H 141/65 H 100 03/21/21 06:00 03/21/21 07:00 03/21/21 07:00 03/21/21 07:00 03/21/21 07:00 Oxygen Delivery Method Room Air Weight: 156 lb 4.924 oz Body Mass Index (BMI) 25.7 Intake & Output: Intake and Output for Last 24 Hours 03/19/21 03/20/21 03/21/21 23:59 23:59 23:59 Intake Total 1999 6239.17 / 6359.17 1980.83 / 1980.83 Output Total 1999 1950 / 1950 Balance 1999 4239.17 / 3959.17 30.83 / 30.83 Lab / Micro Data Result Diagrams: 03/21/21 04:00 03/21/21 04:00 Labs: Laboratory Results - last 24 hr 03/19/21 19:05: Diff Path Review Reviewed 03/20/21 06:10: POC Glucose 268 H 03/20/21 08:01: POC Glucose 261 H 03/20/21 08:53: POC Glucose 218 H 03/20/21 09:56: POC Glucose 254 H 03/20/21 10:56: POC Glucose 266 H 03/20/21 11:50: POC Glucose 213 H 03/20/21 12:00: Sodium 140, Potassium 3.2 L, Chloride 112 H, Carbon Dioxide 16.0 L, Anion Gap 12, BUN 42 H, Creatinine 1.00, Estim Creat Clear Calc 58.76, Est GFR (MDRD) Af Amer 76, Est GFR (MDRD) Non-Af 62, BUN/Creatinine Ratio 42.0 H, Glucose 247 H, Calcium 7.7 L 03/20/21 13:24: POC Glucose 226 H 03/20/21 14:43: POC Glucose 212 H 03/20/21 15:37: POC Glucose 260 H 03/20/21 16:45: POC Glucose 264 H 03/20/21 16:50: Sodium 140, Potassium 3.1 L, Chloride 112 H, Carbon Dioxide 18.0 L, Anion Gap 10, BUN 32 H, Creatinine 0.83, Estim Creat Clear Calc 70.80, Est GFR (MDRD) Af Amer 94, Est GFR (MDRD) Non-Af 77, BUN/Creatinine Ratio 38.6 H, Glucose 275 H, Calcium 7.9 L 03/20/21 18:12: POC Glucose 198 H 03/20/21 19:07: POC Glucose 171 H 03/20/21 20:07: POC Glucose 180 H 03/20/21 21:45: POC Glucose 230 H 03/21/21 04:00: WBC 4.7, RBC 3.80 L, Hgb 11.0 L, Hct 30.7 L, MCV 80.8 L, MCH 28.9, MCHC 35.8, RDW Std Deviation 38.4, RDW Coeff of Elio 12.9, Plt Count 82 L, MPV 9.4, Neut % (Auto) Not Reportable, Absolute Neuts (auto) 3.7, Absolute Ly mphs (auto) 0.47 L, Total Counted 100, Neutrophils % (Manual) 75 H, Band Neutrophils % 3, Lymphocytes % (Manual) 10 L, Monocytes % (Manual) 6, Myelocytes % 4 H, Promyelocytes % 2 H, Diff Path Review May foll, Atypical Lymphocytes 1+, Platelet Estimate MOD DEC, RBC Morphology NORM C+C 03/21/21 04:00: Sodium 141, Potassium 3.2 L, Chloride 109 H, Carbon Dioxide 18.0 L, Anion Gap 14, BUN 19 H, Creatinine 0.72, Estim Creat Clear Calc 81.62, Est GFR (MDRD) Af Amer 110, Est GFR (MDRD) Non-Af 91, BUN/Creatinine Ratio 26.4 H, Glucose 384 H, Calcium 7.6 L 03/21/21 06:24: POC Glucose 289 H Micro: Microbiology 03/19/21 20:30 Nasal Secretion SARS-CoV-2 Antigen (Rapid) - Final SARS-CoV-2 (COVID 19) Physical Exam Const alert Constitutional Narrative: looks uncomfortable General Appearance: well kempt and well developed Orientation / Consciousness: awake, oriented to person, oriented to place, oriented to time and lethargic Exam Limitations: altered mental status HEENT normocephalic, head/scalp atraumatic and hearing grossly normal bilaterally Head and Scalp: normocephalic Eyes PERRL, EOMs intact bilaterally and conjunctivae normal Neck nuchal rigidity, no lymphadenopathy, supple, no JVD, thyroid normal and no carotid bruits General: trachea midline Resp Resp Narrative: on 2L of oxygen by nasal canula, tachypneic, diminished breath sounds bibasally, no wheezes or crackles. Auscultation: Negative for rales, rhonchi or wheezes Cardio regular rhythm, S1 normal heart sound, S2 normal heart sound, no murmurs, no rub and no gallops Cardio Narrative: tachycardic GI normal to inspection, nondistended, normoactive bowel sounds, soft to palpation, non-tender and non-distended Extremity normal to inspection, full ROM and no clubbing, cyanosis or edema Skin no rashes or lesions noted General Skin Exam: no breakdown Neuro CN's II-XII intact bilaterally and no sensory deficits noted Neuro Narrative: lethargic Sensorium / Orientation: awake and alert Psych thought process normal Psych Narrative: flat affect Assessment & Plan Assessment/Plan (1) Diabetic ketoacidosis: (2) Pneumonia due to 2019-nCoV: (3) Acute hyponatremia: PLAN: #Acute metabolic encephalopathy due to DKA * anion gap closed x 2, and now on sc insulin lantus 10 units daily * remains tachypneic and tachycardic * on 1800 calorie diet * accuchecks ACHS. * * #DKA in a poorly controlled diabetic: * as above. She is a known diabetic, but doesnt seem to be complaint with her meds. * Says she has not been compliant with her meds because of the fibromyalgia which results in a lot of pain when she uses of the shots. She is due to follow-up with endocrinology about an insulin pump. * DKA has resolved as above and now on subcu insulin #Hypokalemia: K is 3.2 again today.. Will replace and trend. #Anion gap acidosis due to DKA * resolved. Bicarb is 18 and anion gap is 14 today. * #SIRS criteria: * patient remains tachypneic and tachycardic. * started on empiric antibiotics yesterday o/a of her meeting SIRS criteria * blood cultures pending * will check TSH as well. * * #COVID 19 infection * Currently on room air. diagnosed with Covid about a week ago. Will monitor. * #Hyponatremia: resolved. Na is now 140. #Depression: On duloxetine #Hypertension: On lisinopril DVT prophylaxis: Lovenox Charges/Coding Visit Charges Inpatient E&M: 85079 Subs Hosp L3
[2021-03-21 11:37] LABS: Thyroid Stim Hormone (TSH) 0.37 uIU/mL (0.358-3.74)
--- NOTE | 2021-03-21 11:45 | CASEMGMT ---
PAUL CHAO called Dr Ray' nurse to inquire about resaw carriage operator referral. Per nurse, there was talk about following up with resaw carriage operator but no referral was sent. PAUL CHAO called Dr. Garcia's office and scheduled appt for 05/20/21. CM will continue to follow this patient and plan for a safe discharge.
[2021-03-21] MEDS: Acetaminophen 325 MG Tablet 650 MG PO (13:23)
--- NOTE | 2021-03-21 13:36 | NURSING ---
Tylenol given per patient request for c/o back and leg discomfort. More d/c'd per Dr order. pt tolerated well. patient up into chair with call light in reach. pt denies further needs at this time.
[2021-03-21 14:00] LABS: Bedside Glucose 288 mg/dL (70-110)
[2021-03-21 16:20] LABS: Bedside Glucose 224 mg/dL (70-110)
[2021-03-21 22:56] LABS: Bedside Glucose 171 mg/dL (70-110)
[2021-03-22] VITALS (10 sets, daily range): BP systolic 117–142; BP diastolic 68–77; PULSE 104–125; RESP 18; TEMP 36.4–36.8; O2SAT 93–97
--- NOTE | 2021-03-22 01:13 | PCS.PANDOC ---
PANDEMIC DOCUMENTATION INITIATED: Date: 11/19/2020 Time: 190
[2021-03-22] MEDS: Piperacil/Tazobactam 3.375 GM/50 ML ML IV ×2 (02:51→08:56)
[2021-03-22] MEDS: 0.9% Normal Saline 1,000 ML 75 ML IV ×2 (03:58→18:15)
--- NOTE | 2021-03-22 04:37 | PCM.RX.CS ---
Consult Pharmacy has been consulted to manage selected antiobiotic: Vancomycin Type of Consult: Follow-up Labs: Sodium 141 mmol/L (136-145) 03/21/21 04:00 Potassium 3.2 mmol/L (3.5-5.1) L 03/21/21 04:00 Chloride 109 mmol/L (98-107) H 03/21/21 04:00 Carbon Dioxide 18.0 mmol/L (21.0-32.0) L 03/21/21 04:00 Anion Gap 14 (5-15) 03/21/21 04:00 BUN 19 mg/dL (7-18) H 03/21/21 04:00 Creatinine 0.72 mg/dL (0.55-1.02) 03/21/21 04:00 Est GFR (MDRD) Af Amer 110 mL/min (>60) 03/21/21 04:00 Est GFR (MDRD) Non-Af 91 mL/min (>60) 03/21/21 04:00 BUN/Creatinine Ratio 26.4 RATIO (10-20) H 03/21/21 04:00 Glucose 384 mg/dL (74-106) H 03/21/21 04:00 Vancomycin Trough 11.0 ug/mL (5.0-15.0) 03/22/21 02:50 Microbiology: Microbiology 03/19/21 20:30 Nasal Secretion SARS-CoV-2 Antigen (Rapid) - Final SARS-CoV-2 (COVID 19) Goal Trough: 15-20 mcg/mL Pharmacy Plan for Drug Dosing: Pharmacy Service will continue to monitor and adjust dosing as required. TROUGH 11.0 AT 11HRS. INCREASE TO 1GM Q12 AND FOLLOW UP WITH TROUGH IN PRIOR TO 4TH DOSE Follow-Up Labs: Trough Vancomycin Labs to be done on [date and time ordered]: 03/24 @ 0030
[2021-03-22] MEDS: Menthol/Lanolin/Calamine/Znox 113 GM Tube 1 APPLIC TOPICAL ×3 (05:29→20:41)
[2021-03-22] MEDS: Insulin Lispro 100 UNIT/ML INSULN.PEN SC ×4 (05:31→22:37)
[2021-03-22 06:00] LABS: Bedside Glucose 198 mg/dL (70-110)
[2021-03-22 08:54] LABS: Hematocrit 31.7 % (37-47); Hemoglobin 11.3 g/dL (12.0-15.0); Mean Corp Hgb Conc 35.6 g/dL (32-36); Mean Corpuscular Hgb 28.3 pg (27.0-32.0); Mean Corpuscular Volume 79.3 fL (81-99); POSITIVE COUNT YES; POSITIVE MORPHOLOGY YES; Platelet Count 103 K/mm3 (150-450); RBC Distribution Width CV 12.8 % (11.6-14.6); RBC Distribution Width SD 36.8 fl (35.1-43.9); White Blood Count 5.6 K/mm3 (4.4-11.0)
[2021-03-22 08:56] LABS: Differential Indicated MANUAL DIFF
[2021-03-22] MEDS: Heparin Injection (Vial) 5,000 UNIT/ML VIAL 5000 UNIT SC ×2 (08:56→22:37)
[2021-03-22 09:21] LABS: Lymphocyte 17 % (19-41); Metamyelocyte 1 % (0-1); Monocyte 3 % (0-10); Myelocyte 1 % (0-0); Neutrophil-Segmented 78 % (47-70); Platelet Estimate SLT DEC (ADEQ); Red Cell Morphology NORM C+C NORMAL (NORM C&C); Total Cells Counted 100 (MANUAL DIFF)
[2021-03-22 09:22] LABS: Absolute Lymphocyte Count 0.95 X10^3/uL (0.83-4.51); Absolute Neutrophil Count 4.4 X10^3/uL (2.0-7.7); Lymphocyte # 0.95 X10^3/ul (0.83-4.51); Neutrophil # 4.37 X10^3/uL (2.7-7.7)
[2021-03-22 09:24] LABS: Anion Gap 9 (5-15); BUN 6 mg/dL (7-18); BUN/Creat Ratio 12.5 RATIO (10-20); Calcium,Total 8.1 mg/dL (8.5-10.1); Chloride 110 mmol/L (98-107); Creatinine, Serum 0.48 mg/dL (0.55-1.02); EST Glomerular Filtration Rate 145 mL/min (>60); Est Glom Filt Rate - Afr Amer 176 mL/min (>60); Estimated Creatinine Clearance 122.43 ml/min; Glucose 188 mg/dL (74-106); Potassium 2.7 mmol/L (3.5-5.1); Sodium Level 144 mmol/L (136-145)
[2021-03-22 09:54] LABS: Pathologist Review Reviewed
--- NOTE | 2021-03-22 11:46 | CASEMGMT ---
RN CM spoke to patient regarding discharge planning. Patient states she does not have glucometer or insulin at home. Patient states she is familiar with checking blood sugars and taking insulin and does not require teaching. Discussed getting setup with v belt mold assembler and curer and patient prefers Dr. Garcia. Patient updated regarding appointment with Dr. Garcia on 05/20/21. Patient declines wanting [facility] at discharge. CM will continue to follow this patient and plan for a safe discharge.
[2021-03-22] MEDS: Vancomycin IV 1,000 MG/200 ML BAG 200 MG IV (11:48)
[2021-03-22] MEDS: Potassium Chloride Oral Tablet 20 MEQ 60 MEQ PO (11:55)
[2021-03-22 12:01] LABS: Bedside Glucose 205 mg/dL (70-110)
--- NOTE | 2021-03-22 13:22 | PN.HOSP_ITS ---
Subjective Subjective Patient seen and examined. She said she felt better today and was hoping she could go home. However, her potassium is low at 2.7, and pateint also developed diarrhea. Review of systems otherwise negative. Objective Data Objective Data Vital Signs: Vital Signs Temp Pulse Resp BP Pulse Ox 98.2 F 110 H 18 133/70 H 95 03/22/21 08:54 03/22/21 08:54 03/22/21 08:54 03/22/21 08:54 03/22/21 08:54 Oxygen Delivery Method Room Air Weight: 140 lb 9.6 oz Body Mass Index (BMI) 25.7 Intake & Output: Intake and Output for Last 24 Hours 03/20/21 03/21/21 03/22/21 23:59 23:59 23:59 Intake Total 6239.17 / 6359.17 3837.08 / 3837.08 1017.5 / 1017.5 Output Total 1999 / 2400 2750 / 2750 Balance 4239.17 / 3959.17 1087.08 / 1087.08 1017.5 / 1017.5 Lab / Micro Data Result Diagrams: 03/22/21 08:30 03/22/21 08:30 Labs: Laboratory Results - last 24 hr 03/21/21 04:00: Diff Path Review Reviewed 03/21/21 12:00: POC Glucose 288 H 03/21/21 16:01: POC Glucose 224 H 03/21/21 22:22: POC Glucose 171 H 03/22/21 02:50: Vancomycin Trough 11.0 03/22/21 05:30: POC Glucose 198 H 03/22/21 08:30: WBC 5.6, RBC 4.00 L, Hgb 11.3 L, Hct 31.7 L, MCV 79.3 L, MCH 28.3, MCHC 35.6, RDW Std Deviation 36.8, RDW Coeff of Elio 12.8, Plt Count 103 L, MPV 10.0, Neut % (Auto) Not Reportable, Absolute Neuts (auto) 4.4, Absolute Lymphs (auto) 0.95, Total Counted 100, Neutrophils % (Manual) 78 H, Lymphocytes % (Manual) 17 L, Monocytes % (Manual) 3, Metamyelocytes % 1, Myelocytes % 1 H, Diff Path Review May foll, Platelet Estimate SLT DEC, RBC Morphology NORM C+C 03/22/21 08:30: Sodium 144, Potassium 2.7 L*, Chloride 110 H, Carbon Dioxide 25.0, Anion Gap 9, BUN 6 L, Creatinine 0.48 L, Estim Creat Clear Calc 122.43, Est GFR (MDRD) Af Amer 176, Est GFR (MDRD) Non-Af 145, BUN/Creatinine Ratio 12.5, Glucose 188 H, Calcium 8.1 L 03/22/21 11:45: POC Glucose 205 H Micro: Microbiology 03/19/21 20:30 Nasal Secretion SARS-CoV-2 Antigen (Rapid) - Final SARS-CoV-2 (COVID 19) Physical Exam Const alert and oriented x3 Constitutional Narrative: looks uncomfortable General Appearance: well kempt and well developed Orientation / Consciousness: awake, oriented to person, oriented to place, oriented to time and lethargic Exam Limitations: no limitations HEENT normocephalic, head/scalp atraumatic and hearing grossly normal bilaterally Head and Scalp: normocephalic Eyes PERRL, EOMs intact bilaterally and conjunctivae normal Neck nuchal rigidity, no lymphadenopathy, supple, no JVD, thyroid normal and no carotid bruits General: trachea midline Resp normal respiratory effort, no retractions, no use of accessory muscles and clear to auscultation bilaterally Resp Narrative: on room air. Auscultation: Negative for rales, rhonchi or wheezes Cardio regular rate, regular rhythm, S1 normal heart sound, S2 normal heart sound, no murmurs, no rub and no gallops GI normal to inspection, nondistended, normoactive bowel sounds, soft to palpation, non-tender and non-distended Extremity normal to inspection, full ROM and no clubbing, cyanosis or edema Peripheral Pulses: Yes pulses 2+ throughout Skin no rashes or lesions noted General Skin Exam: no breakdown Neuro CN's II-XII intact bilaterally and no sensory deficits noted Sensorium / Orientation: awake and alert Psych thought process normal and affect normal Assessment & Plan Assessment/Plan (1) Diabetic ketoacidosis: (2) Pneumonia due to 2019-nCoV: (3) Acute hyponatremia: PLAN: #Acute metabolic encephalopathy due to DKA * resolved. * * #DKA in a poorly controlled diabetic: * as above. She is a known diabetic, but doesnt seem to be complaint with her meds. * Says she has not been compliant with her meds because of the fibromyalgia whi ch results in a lot of pain when she uses of the shots. She is due to follow- up with endocrinology about an insulin pump. * DKA has resolved as above and now on subcu insulin * A1C is pending #Hypokalemia: K is 2.7 today. Will aggressively replace. #Anion gap acidosis due to DKA * resolved. * #SIRS criteria: * resolved. Will dc antibiotics as there is no clear evidence of infection * #Diarrhea: * developed diarrhea overnight. * WIll check C. difficile since she has been on antibiotics. * If C. difficile negative, will hydrate with fluids and give loperamide * #COVID 19 infection * still on room air. diagnosed with Covid about a week ago. Will monitor. * #Hyponatremia: resolved. Na is now 140. #Depression: On duloxetine #Hypertension: On lisinopril DVT prophylaxis: Lovenox Charges/Coding Visit Charges Inpatient E&M: 16916 Subs Hosp L2
[2021-03-22] MEDS: Potassium Chloride 10mEq/100mL 10 MEQ/100 ML IV.SOLN. 100 MEQ IV BOLUS ×4 (13:32→18:13)
[2021-03-22 14:17] LABS: Hemoglobin A1c 13.9 % (3.8-5.6)
[2021-03-22 17:10] LABS: Bedside Glucose 180 mg/dL (70-110)
[2021-03-22] MEDS: Acetaminophen 325 MG Tablet 650 MG PO (20:42)
[2021-03-22 22:45] LABS: Bedside Glucose 167 mg/dL (70-110)
[2021-03-23] VITALS (16 sets, daily range): BP systolic 117–141; BP diastolic 66–88; PULSE 116–131; RESP 16–20; TEMP 36.6–37.1; O2SAT 94–99
[2021-03-23] MEDS: Acetaminophen 325 MG Tablet 650 MG PO ×2 (06:23→14:30)
[2021-03-23] MEDS: Menthol/Lanolin/Calamine/Znox 113 GM Tube 1 APPLIC TOPICAL ×3 (07:14→21:34)
[2021-03-23] MEDS: Insulin Lispro 100 UNIT/ML INSULN.PEN SC ×4 (07:15→21:43)
[2021-03-23 07:26] LABS: Bedside Glucose 175 mg/dL (70-110)
[2021-03-23] MEDS: 0.9% Normal Saline 1,000 ML 75 ML IV (08:34)
[2021-03-23] MEDS: Heparin Injection (Vial) 5,000 UNIT/ML VIAL 5000 UNIT SC ×2 (08:35→21:43)
[2021-03-23] MEDS: Ondansetron 4 MG/2 ML Vial IV (08:35)
[2021-03-23] MEDS: Metoprolol Tartrate 25 MG Tablet PO ×2 (08:58→21:44)
[2021-03-23 09:31] LABS: Hematocrit 31.4 % (37-47); Hemoglobin 11.2 g/dL (12.0-15.0); Mean Corp Hgb Conc 35.7 g/dL (32-36); Mean Corpuscular Hgb 28.7 pg (27.0-32.0); Mean Corpuscular Volume 80.5 fL (81-99); Mean Platelet Vol. 9.7 fl (6.2-12.0); POSITIVE COUNT YES; POSITIVE MORPHOLOGY YES; Platelet Count 103 K/mm3 (150-450); RBC Distribution Width CV 13.2 % (11.6-14.6); RBC Distribution Width SD 38.2 fl (35.1-43.9); White Blood Count 7.5 K/mm3 (4.4-11.0)
[2021-03-23 09:36] LABS: Differential Indicated MANUAL DIFF
[2021-03-23 09:45] LABS: Anion Gap 8 (5-15); BUN 5 mg/dL (7-18); BUN/Creat Ratio 9.9 RATIO (10-20); Calcium,Total 8.2 mg/dL (8.5-10.1); Chloride 109 mmol/L (98-107); EST Glomerular Filtration Rate 138 mL/min (>60); Est Glom Filt Rate - Afr Amer 167 mL/min (>60); Estimated Creatinine Clearance 117.53 ml/min; Glucose 193 mg/dL (74-106); Potassium 3.1 mmol/L (3.5-5.1); Sodium Level 143 mmol/L (136-145)
[2021-03-23 10:32] LABS: Lymphocyte 11 % (19-41); Metamyelocyte 9 % (0-1); Monocyte 6 % (0-10); Neutrophil-Band 11 % (0-5); Neutrophil-Segmented 63 % (47-70); Total Cells Counted 100 (MANUAL DIFF)
[2021-03-23 10:33] LABS: Absolute Neutrophil Count 5.5 X10^3/uL (2.0-7.7); Anisocytosis 1+; Neutrophil # 5.52 X10^3/uL (2.7-7.7); Platelet Estimate SLT DEC (ADEQ)
[2021-03-23 10:34] LABS: Absolute Lymphocyte Count 0.82 X10^3/uL (0.83-4.51); Lymphocyte # 0.82 X10^3/ul (0.83-4.51)
[2021-03-23] MEDS: Potassium Chloride Oral Tablet 20 MEQ 60 MEQ PO (12:18)
[2021-03-23 12:25] LABS: Bedside Glucose 200 mg/dL (70-110)
--- NOTE | 2021-03-23 16:43 | PN.HOSP_ITS ---
Subjective Subjective Patient seen and examined. She has no active complaints today. Plan was to discharge patient home today but she has become even more tachycardic with her heart rate going up to the 130s and 140s with ambulation. Patient was started on metoprolol yesterday. 2D echo was ordered for today, and is pending. Objective Data Objective Data Vital Signs: Vital Signs Temp Pulse Resp BP Pulse Ox 98.8 F 131 H 20 H 126/66 H 94 03/23/21 14:24 03/23/21 14:24 03/23/21 14:24 03/23/21 14:24 03/23/21 14:24 Oxygen Delivery Method Room Air Weight: 140 lb 9.6 oz Body Mass Index (BMI) 25.7 Intake & Output: Intake and Output for Last 24 Hours 03/21/21 03/22/21 03/23/21 23:59 23:59 23:59 Intake Total 3837.08 / 3837.08 2667.5 / 2667.5 1250 / 1250 Output Total 2750 / 2750 Balance 1087.08 / 1087.08 2667.5 / 2667.5 1250 / 1250 Lab / Micro Data Result Diagrams: 03/23/21 09:13 03/23/21 09:13 Labs: Laboratory Results - last 24 hr 03/22/21 16:35: POC Glucose 180 H 03/22/21 22:36: POC Glucose 167 H 03/23/21 07:13: POC Glucose 175 H 03/23/21 09:13: WBC 7.5, RBC 3.90 L, Hgb 11.2 L, Hct 31.4 L, MCV 80.5 L, MCH 28.7, MCHC 35.7, RDW Std Deviation 38.2, RDW Coeff of Elio 13.2, Plt Count 103 L, MPV 9.7, Neut % (Auto) Not Reportable, Absolute Neuts (auto) 5.5, Absolute Lymphs (auto) 0.82 L, Total Counted 100, Neutrophils % (Manual) 63, Band Neutrophils % 11 H, Lymphocytes % (Manual) 11 L, Monocytes % (Manual) 6, Metamyelocytes % 9 H, Diff Path Review August, Platelet Estimate SLT DEC, Anisocytosis 1+ 03/23/21 09:13: Sodium 143, Potassium 3.1 L, Chloride 109 H, Carbon Dioxide 26.0, Anion Gap 8, BUN 5 L, Creatinine 0.50 L, Estim Creat Clear Calc 117.53, Est GFR (MDRD) Af Amer 167, Est GFR (MDRD) Non-Af 138, BUN/Creatinine Ratio 9.9 L, Glucose 193 H, Calcium 8.2 L 03/23/21 12:17: POC Glucose 200 H Micro: Microbiology 03/20/21 15:25 Blood Culture (Wb) - Right Wrist Blood Culture - Preliminary No growth in 48 hours. 03/20/21 15:10 Blood Culture (Wb) - Right Hand Blood Culture - Preliminary No growth in 48 hours. 03/19/21 20:30 Nasal Secretion SARS-CoV-2 Antigen (Rapid) - Final SARS-CoV-2 (COVID 19) Physical Exam Const alert, oriented x3 and no apparent distress Constitutional Narrative: looks uncomfortable General Appearance: well kempt and well developed Orientation / Consciousness: awake, oriented to person, oriented to place and oriented to time Exam Limitations: no limitations HEENT normocephalic, head/scalp atraumatic and hearing grossly normal bilaterally Head and Scalp: normocephalic Eyes PERRL, EOMs intact bilaterally and conjunctivae normal Neck nuchal rigidity, no lymphadenopathy, supple, no JVD, thyroid normal and no carotid bruits General: trachea midline Resp normal respiratory effort, no retractions, no use of accessory muscles and clear to auscultation bilaterally Resp Narrative: on room air. Auscultation: Negative for rales, rhonchi or wheezes Cardio regular rhythm, S1 normal heart sound, S2 normal heart sound, no murmurs, no rub and no gallops Cardio Narrative: tachycardic GI normal to inspection, nondistended, normoactive bowel sounds, soft to palpation, non-tender and non-distended Extremity normal to inspection, full ROM and no clubbing, cyanosis or edema Peripheral Pulses: Yes pulses 2+ throughout Skin no rashes or lesions noted General Skin Exam: no breakdown Neuro CN's II-XII intact bilaterally Sensorium / Orientation: awake and alert Psych thought process normal and affect normal Assessment & Plan Assessment/Plan (1) Diabetic ketoacidosis: (2) Pneumonia due to 2019-nCoV: (3) Acute hyponatremia: PLAN: #Acute metabolic encephalopathy due to DKA * resolved. * * #DKA in a poorly controlled diabetic: * as above. She is a known diabetic, but doesnt seem to be complaint with her meds. * Says she has not been compliant with her meds because of the fibromyalgia which results in a lot of pain when she uses of the shots. She is due to fol low-up with endocrinology about an insulin pump. * DKA has resolved as above and now on subcu insulin * A1C is 13.6. #Hypokalemia: K is 3.1 today. Will aggressively replace. #Diarrhea: * resolved. C Diff was negative. * #SInus tachycardia * Patient's heart rate is up in the 130s and goes as high as the 140s. She appears to be in sinus rhythm. 2D echo ordered for today but is still pending. * Patient started on metoprolol 25 mg twice daily yesterday. IV Lopressor as needed. We will keep patient overnight to control her heart rate better. Of note sinus tachycardia is chronic and TSH was within normal limits. * #COVID 19 infection * still on room air. diagnosed with Covid about a week ago. Will monitor. * #Hyponatremia: resolved. #Depression: On duloxetine #Hypertension: On lisinopril DVT prophylaxis: Lovenox Charges/Coding Visit Charges Inpatient E&M: 78058 Subs Hosp L2
[2021-03-23] MEDS: 0.9% Saline Lock 10 ML Syringe IV (17:07)
[2021-03-23] MEDS: Metoprolol Tartrate 5 MG/5 ML Vial IV (17:09)
[2021-03-23] MEDS: Ondansetron ODT 4 MG Tablet PO (17:09)
[2021-03-23 17:26] LABS: Bedside Glucose 206 mg/dL (70-110)
[2021-03-23 22:11] LABS: Bedside Glucose 204 mg/dL (70-110)
[2021-03-24] VITALS (8 sets, daily range): BP systolic 118–131; BP diastolic 71–72; PULSE 118–131; RESP 17–18; TEMP 36.7–36.9; O2SAT 94–97
[2021-03-24 01:37] LABS: Vancomycin, Trough Level 3.6 ug/mL (5.0-15.0)
[2021-03-24] MEDS: Menthol/Lanolin/Calamine/Znox 113 GM Tube 1 APPLIC TOPICAL ×2 (06:11→11:36)
[2021-03-24] MEDS: Insulin Lispro 100 UNIT/ML INSULN.PEN SC ×2 (06:12→11:24)
[2021-03-24 06:20] LABS: Bedside Glucose 158 mg/dL (70-110)
[2021-03-24 07:25] LABS: Anion Gap 7 (5-15); BUN 4 mg/dL (7-18); BUN/Creat Ratio 10.1 RATIO (10-20); Calcium,Total 8.2 mg/dL (8.5-10.1); Chloride 108 mmol/L (98-107); EST Glomerular Filtration Rate 182 mL/min (>60); Est Glom Filt Rate - Afr Amer 221 mL/min (>60); Estimated Creatinine Clearance 146.91 ml/min; Glucose 152 mg/dL (74-106); Potassium 3.6 mmol/L (3.5-5.1); Sodium Level 141 mmol/L (136-145)
[2021-03-24] MEDS: Metoprolol Tartrate 25 MG Tablet PO (11:00)
[2021-03-24] MEDS: Heparin Injection (Vial) 5,000 UNIT/ML VIAL 5000 UNIT SC (11:20)
[2021-03-24] MEDS: Acetaminophen 325 MG Tablet 650 MG PO (11:25)
[2021-03-24 11:45] LABS: Bedside Glucose 209 mg/dL (70-110)
--- NOTE | 2021-03-24 13:00 | PCM.DC.SUM ---
Providers Date of Admission: 03/19/21 Primary Care Physician: Dr. Sapna Ray, DO Consultations 03/20/21 14:12 Consult: Hydroelectric Plant Electrical Engineer / Pulmonary Medicine Routine Consulting Provider: Pulmonary Medicine jimmie Troy Reason for Consult: DKA, sepsis EMERGENT Consult: No MD Notified: Yes Date Notified: 03/20/21 Time Notified: 14:13 Method of Notification: Text Reason For Visit: DKA Diagnosis Discharge Diagnosis (1) Diabetic ketoacidosis: Status: Acute Code(s): E11.10 - Type 2 diabetes mellitus with ketoacidosis without coma (2) Pneumonia due to 2019-nCoV: Status: Acute Code(s): U07.1 - COVID-19; J12.82 - Pneumonia due to coronavirus disease 2018 (3) Acute hyponatremia: Status: Acute Code(s): E87.1 - Hypo-osmolality and hyponatremia Medications at Discharge Home Medications gabapentin 600 mg PO TID 03/23/21 lisinopril 2.5 mg PO DAILY 03/23/21 omeprazole 20 mg PO DAILY 03/23/21 ondansetron 4 mg PO TID PRN 03/23/21 insulin glargine [Lantus Solostar U-100 Insulin] 15 unit SUBCUT DAILY #15 ml 03/24/21 metformin 1,000 mg PO BID #60 tab 03/24/21 Hospital Course Operations None Summary of Care Provided Minutes Spent on Discharge: 45 Hospital Course: Patient is a 50 y/o female with an extensive pMH as outlined who was admitted via the ED on 03/19/2021 from a home on account of severe weakness and confusion. Patient apparently been diagnosed with Covid about 7 days prior to admission. On admission she was found to have elevated WBC and sodium was 128. Bicarb was 7 and anion gap was 31. Blood sugar was 621. CXR showed no acute cardiopulmonary activity. She was admitted and managed for acute metabolic encephalopathy due to DKA which is as a result of noncompliance and anion gap metabolic acidosis due to DKA. Patient states she had not been taking any of her medications especially her insulin shots because she had fibromyalgia and the pain she got from the insulin shots but he decided not to take it anymore. She had been due to follow-up with her asset management coordinator about an insulin pump but had defaulted. She was started on insulin drip and hydrated with fluids. Gap subsequently closed and she was transitioned to subcu insulin 10 units daily. Patient remained on room air throughout admission. Hospital course was complicated by tachycardia which was sinus tachycardia. Per review of records, this dated back several years to at least 2015. She was started on p.o. metoprolol 25 mg twice daily. A 2D echo was ordered but could not be done before discharge. TSH was within normal limits. Patient remained stable and was discharged on 03/24/2021 on subcu insulin 15 units daily as well as p.o. Metformin. She was counseled to follow-up with her asset management coordinator for medication adjustment as needed. Of note A1c checked was 13.6. She was also referred to cardiology and primary care to determine if she needs 2D echo on outpatient basis. Patient seen and examined prior to discharge. She had no complaints. Review of systems otherwise negative. Labs and vitals reviewed. Home medication reviewed and reconciled. Physical Exam Const alert, oriented x3 and no apparent distress General Appearance: well kempt and well developed Orientation / Consciousness: awake, oriented to person, oriented to place and oriented to time Exam Limitations: no limitations HEENT normocephalic, head/scalp atraumatic and hearing grossly normal bilaterally Eyes PERRL, EOMs intact bilaterally and conjunctivae normal Neck nuchal rigidity, no lymphadenopathy, supple, no JVD, thyroid normal and no carotid bruits General: trachea midline Resp normal respiratory effort, no retractions, no use of accessory muscles and clear to auscultation bilaterally Resp Narrative: on room air. Auscultation: Negative for rales, rhonchi or wheezes Cardio regular rhythm, S1 normal heart sound, S2 normal heart sound, no murmurs, no rub and no gallops Cardio Narrative: tachycardic GI normal to inspection, nondistended, normoactive bowel sounds, soft to palpation, non-tender and non-distended Extremity normal to inspection, full ROM and no clubbing, cyanosis or edema Skin no rashes or lesions noted General Skin Exam: no breakdown Neuro CN's II-XII intact bilaterally Sensorium / Orientation: awake and alert Psych thought process normal and affect normal Weight / BMI Weight Weight: 141 lb 5.061 oz Body Mass Index (BMI) 25.7 ABG / Lab / Microbiology Data Result Diagrams: 03/23/21 09:13 03/24/21 04:40 Laboratory: Laboratory Results - last 24 hr 03/23/21 17:04: POC Glucose 206 H 03/23/21 21:33: POC Glucose 204 H 03/24/21 00:38: Vancomycin Trough 3.6 L 03/24/21 04:40: Sodium 141, Potassium 3.6, Chloride 108 H, Carbon Dioxide 26.0, Anion Gap 7, BUN 4 L, Creatinine 0.40 L, Estim Creat Clear Calc 146.91, Est GFR (MDRD) Af Amer 221, Est GFR (MDRD) Non-Af 182, BUN/Creatinine Ratio 10.1, Glucose 152 H, Calcium 8.2 L 03/24/21 06:11: POC Glucose 158 H 03/24/21 11:24: POC Glucose 209 H Microbiology: Microbiology 03/20/21 15:25 Blood Culture (Wb) - Right Wrist Blood Culture - Preliminary No growth in 48 hours. 03/20/21 15:10 Blood Culture (Wb) - Right Hand Blood Culture - Preliminary No growth in 48 hours. 03/19/21 20:30 Nasal Secretion SARS-CoV-2 Antigen (Rapid) - Final SARS-CoV-2 (COVID 19) D/C Instructions Discharge Diet: 1800 Calorie Control Diet Discharge Activity: Return to Normal Activity Weight Bearing Status: Weight bearing as tolerated Call your doctor if you observe: Fever of 101 or Higher, Shortness of breath, Dizziness, Swelling in the ankles, Chest pain and Increased palpitations (irregular heartbeat) Meaningful Use Info Meaningful Use Diagnoses (Choose all that apply): None applicable Discharge Plan Admission Admit Date/Time: 03/19/21 22:15 Primary Reason for Your Visit: DKA, covid Attending Provider: Katherine Peck Primary Care Provider: Sapna Ray Consulting Providers: Tony Hunter ; David Santillan ; Teresa Padilla CERTIFIED FORKLIFT OPERATOR Instructions Additional Instructions / Restrictions: to remain in self isolation till 04/01/2021 Discharge Orders/Prescriptions Prescriptions: New Lantus Solostar U-100 Insulin 100 unit/mL (3 mL) insulin pen 15 unit subcut DAILY Qty: 15 RF: 0 metformin 1,000 mg tablet 1,000 mg PO BID Qty: 60 RF: 1 Continued gabapentin 600 mg Tablet 600 mg PO TID RF: 0 omeprazole 20 mg Capsule,Delayed Release(Dr/Ec) 20 mg PO DAILY RF: 0 lisinopril 2.5 mg Tablet 2.5 mg PO DAILY RF: 0 ondansetron 4 mg Tablet,Disintegrating 4 mg PO TID PRN (Reason: Nausea) RF: 0 Discontinued metformin 500 mg Tablet 500 mg PO BID RF: 0 Referrals / Follow Up: Sapna Ray DO [Primary Care Provider] - Isaak Garcia MD [STAFF PHYSICIAN] - 05/20/21 9:45 am Disposition Disposition (needs filled in before D/C Order can be placed): Home, Self Care Charges/Coding Visit Charges Inpatient E&M: 52735 Disch Hosp
[2021-03-25 10:25] LABS: Pathologist Review Reviewed
[2021-03-26 09:24] LABS: Pathologist Review Reviewed
== END 2021-03-24 14:05 | disposition home or self-care (01) | DRG 420 ==
LOC: ED 20:06 → ICU 03-20 00:18 → MS2 03-21 12:40
PROVIDERS: Admitting Provider Internal Medicine; Emergency Provider Emergency Medicine; PCP Family Medicine; Visit Provider Student in an Organized Health Care Education/Training Program
DX: E11.10 Type 2 diabetes mellitus with ketoacidosis without coma (principal); U07.1 COVID-19; J12.82 Pneumonia due to coronavirus disease 2019; E86.0 Dehydration; G93.41 Metabolic encephalopathy; M79.7 Fibromyalgia; E87.1 Hypo-osmolality and hyponatremia; E87.6 Hypokalemia; K21.9 Gastro-esophageal reflux disease without esophagitis; E78.00 Pure hypercholesterolemia, unspecified; M19.90 Unspecified osteoarthritis, unspecified site; Z79.899 Other long term (current) drug therapy; Z79.84 Long term (current) use of oral hypoglycemic drugs; Z28.3 Underimmunization status; Z87.891 Personal history of nicotine dependence; Z91.14 Patient's other noncompliance with medication regimen; F32.A Depression, unspecified; I10 Essential (primary) hypertension; R19.7 Diarrhea, unspecified
CPT/HCPCS: 36415; 71045; 80048; 80053; 80202; 81001; 82009; 82803; 82962; 83036; 83735; 84443; 85025; 86140; 87040; 87426; 93005; 94762; 97110; 97162; 97166; 97530; 97535; 99285; J7030; J7040; J7050; A4216; J2405; J7799

== ENCOUNTER 2021-04-07 11:18 | Inpatient (IN) | payer MEDICAID, SELFPAY ==
[2021-04-07] VITALS (17 sets, daily range): BP systolic 93–155; BP diastolic 64–85; PULSE 72–125; RESP 15–24; TEMP 35.8–37.7; O2SAT 86–96; BMI 26.1; BMI 26.4
--- NOTE | 2021-04-07 12:42 | EKG12_ITS ---
Test Reason : CP Blood Pressure : / mmHG Vent. Rate : 121 BPM Atrial Rate : 121 BPM P-R Int : 146 ms QRS Dur : 074 ms QT Int : 368 ms P-R-T Axes : 065 -11 -22 degrees QTc Int : 522 ms Sinus tachycardia Nonspecific T wave abnormality Abnormal ECG LOW VOLTAGE QRS (LIMB LEADS) Confirmed by ALFONSO CORONADO, RORY ([id number]), acquisition editor PHOENIX FLORES ([id number]) on 04/10/2021 10:28:11 AM Referred By: FLORINDA Confirmed By:RORY HAMILTON MD
--- NOTE | 2021-04-07 13:13 | RAD_ITS ---
STUDY: X-RAY CHEST REASON FOR EXAM: Female, 50 years old. SOB TECHNIQUE: Single AP portable view of the chest. COMPARISON: 03/19/2021 FINDINGS: Alveolar opacities throughout both lungs consistent with bilateral pneumonia. There is no demonstrated pleural abnormality. Normal size heart. Normal mediastinum and peg. Normal visualized pulmonary arteries. Normal visualized aortic arch and descending thoracic aorta. Normal visualized thoracic spine. Normal visualized ribs, clavicles, and shoulders. There is no demonstrated abnormality of the visualized soft tissue structures of the upper abdomen. RAD/Chest 1 View (Portable) IMPRESSION: Bilateral pneumonia. Electronically Signed: Breezy Yusuf MD at 13:57 EST Tel , Service support ,
[2021-04-07 13:23] LABS: Absolute Lymphocyte Count 0.95 X10^3/uL (0.83-4.51); Absolute Neutrophil Count 3.8 X10^3/uL (2.0-7.7); Basophil# 0.03 X10^3/uL; Basophil% 0.5 % (0-1); Eosinophil# 0.12 X10^3/uL; Eosinophils% 2.1 % (0-5); Hematocrit 31.8 % (37-47); Hemoglobin 10.2 g/dL (12.0-15.0); Lymphocyte # 0.95 X10^3/ul (0.83-4.51); Mean Corp Hgb Conc 32.1 g/dL (32-36); Mean Corpuscular Volume 87.4 fL (81-99); Mean Platelet Vol. 9.9 fl (6.2-12.0); Monocyte# 0.59 X10^3/uL; Monocyte% 10.5 % (0-10); NRBC Flagged by Analyzer 0 % (0-5); Neutrophil # 3.81 X10^3/uL (2.7-7.7); Neutrophil % 68.1 % (47-70); Platelet Count 245 K/mm3 (150-450); RBC Distribution Width CV 14.6 % (11.6-14.6); RBC Distribution Width SD 45.6 fl (35.1-43.9); Red Blood Count 3.64 M/mm3 (4.2-5.4); White Blood Count 5.6 K/mm3 (4.4-11.0)
[2021-04-07 13:45] LABS: Anion Gap 9 (5-15); BUN 15 mg/dL (7-18); BUN/Creat Ratio 19.1 RATIO (10-20); Calcium,Total 8.9 mg/dL (8.5-10.1); Chloride 97 mmol/L (98-107); Creatinine, Serum 0.78 mg/dL (0.55-1.02); EST Glomerular Filtration Rate 83 mL/min (>60); Est Glom Filt Rate - Afr Amer 100 mL/min (>60); Estimated Creatinine Clearance 78.51 ml/min; Glucose 324 mg/dL (74-106); Potassium 4.4 mmol/L (3.5-5.1); Sodium Level 132 mmol/L (136-145); Troponin-I HS 41 pg/mL (3.0-54.0)
[2021-04-07 15:41] LABS: Troponin-I HS 37 pg/mL (3.0-54.0)
--- NOTE | 2021-04-07 15:55 | ED.RN ---
PT AMBULATE RA 86 RA RESTING 89-90 AMULATE W 3L 93 RESTING W 2L 94
--- NOTE | 2021-04-07 15:55 | ED.VIS.DYS ---
HPI History of Present Illness Chief Complaint: Shortness of Breath Informant: patient Onset/Context/Timing Onset: Days (4) Context: sudden Timing: Intermittent Quality: Positive for Dyspnea on exertion Worsened by: Exertion Relieved by: Oxygen Associated Symptoms cough; Negative for rhinorrhea, ear pain, fever, sore throat, chills, clear sputum, white sputum, yellow sputum or green sputum Chest Pain: Positive for Intermittent and Pressure Narrative Narrative: Patient presents with shortness of breath that has been getting worse over the last 4 days. Patient states she was recently admitted to the hospital for DKA and COVID-19 on 03/19/2021. Patient was discharged home on 03/24/2021. Patient states she was doing well until the last 4 days when she started becoming more short of breath. Patient states her breathing is worse with any exertion. Patient admits to a cough but denies any sputum production. Patient admits to some pressure in the middle of her chest. Patient also admits to some palpitations and heart racing. Patient states she saw a customer development manager while she was admitted to the hospital but has not seen one as an outpatient. [facility] Medical History Arthritis Back problem Bursitis Carpal tunnel syndrome Depression Diabetes Diabetes mellitus Fibromyalgia GERD (gastroesophageal reflux disease) Headache High cholesterol History of diabetes mellitus Osteoarthritis Seasonal allergic conjunctivitis ULCERS Vision problems Vitamin deficiency Home Medications gabapentin 600 mg PO TID 03/23/21 [History Last Taken Unknown] lisinopril 2.5 mg PO DAILY 03/23/21 [History Last Taken Unknown] omeprazole 20 mg PO DAILY 03/23/21 [History Last Taken Unknown] ondansetron 4 mg PO TID PRN 03/23/21 [History Last Taken Unknown] insulin glargine [Lantus Solostar U-100 Insulin] 15 unit SUBCUT DAILY #15 ml 03/24/21 [Rx Last Taken Unknown] metformin 1,000 mg PO BID #60 tab 03/24/21 [Rx Last Taken Unknown] Allergy/AdvReac Type Severity Reaction Status Date / Time etodolac [From [facility]] Allergy Rash Verified 04/07/21 11:22 Family History Mother Arthritis Hypertension Melanoma Father Arthritis Bleeding disorder Diabetes Heart disease High cholesterol Son Kidney disease H/O psychiatric care Uncle Alcoholism Liver disease Grandmother Arthritis Cancer Lung cancer Sister Epilepsy Melanoma Skin cancer Aunt CVA (cerebral vascular accident) Surgical History H/O knee surgery History of carpal tunnel surgery History of hysterectomy Social History Smoking Status: Former smoker details: RARELY substance use type: does not use ROS ROS ED Constitutional Constitutional ED: Denies chills or fever(s) Eyes Eyes: Denies blurry vision or change in vision ENT ENT ED: Denies rhinorrhea or sore throat Cardiovascular Cardiovascular: Reports chest pain, palpitations and racing heartbeat Respiratory/Chest Respiratory/Chest: Reports cough and dyspnea Gastrointestinal Gastrointestinal: Denies nausea or vomiting Genitourinary Genitourinary ED: Denies dysuria or hematuria Musculoskeletal Musculoskeletal: Reports back pain; Denies neck pain Integumentary Denies abscess or rash Neurologic Neurologic: Reports headache(s); Denies weakness Allergic/Immunologic Allergic/Immunologic ED: Denies mouth swelling or urticaria EXAM Physical Exam Const Vital Signs: 04/07/21 11:19 04/07/21 12:13 04/07/21 14:26 Temperature 96.5 F L Temperature Source Temporal Pulse Rate 125 H 72 Respiratory Rate 16 15 Respiratory Effort Respiratory Depth Respiratory Pattern Blood Pressure 93/64 96/75 Blood Pressure Mean 73 82 Pulse Ox 86 94 96 Oxygen Delivery Method Room Air Nasal Cannula Room Air Oxygen Flow Rate (L/min) 2 04/07/21 14:28 04/07/21 15:14 04/07/21 15:41 Temperature 98.9 F 98.3 F Temperature Source Oral Oral Pulse Rate 108 H Respiratory Rate 21 H Respiratory Effort Short of Breath Respiratory Depth Deep Respiratory Pattern Tachypnea Blood Pressure 126/74 H Blood Pressure Mean 91 Pulse Ox 92 Oxygen Delivery Method Nasal Cannula Nasal Cannula Oxygen Flow Rate (L/min) 2 2 04/07/21 16:02 04/07/21 16:35 Temperature 98.3 F 98.5 F Temperature Source Oral Oral Pulse Rate 115 H 113 H Respiratory Rate 24 H 23 H Respiratory Effort Respiratory Depth Respiratory Pattern Blood Pressure 129/85 H 129/85 H Blood Pressure Mean 99 99 Pulse Ox 95 93 Oxygen Delivery Method Nasal Cannula Nasal Cannula Oxygen Flow Rate (L/min) 2 2 Positive well nourished and well developed General Appearance ED: well developed HEENT Reports moist mucous membranes Neck supple and no JVD Resp normal respiratory effort and clear to auscultation bilaterally Cardio regular rhythm and no murmurs Rate: tachycardic GI non-tender and non-distended Auscultation: normoactive bowel sounds Palpation: soft Neuro oriented x3, CN's II-XII intact bilaterally and no sensory deficits noted Sensorium / Orientation: alert Motor Exam: strength 5/5 throughout Psych mental status grossly normal MDM MDM MDM Narrative Medical decision making narrative: EKG was obtained. On my interpretation, it showed sinus tachycardia with a rate of 121. CT interval, QRS interval, QTC intervals were normal. [place] was normal. There is nonspecific ST-T wave changes. There are no acute changes. CBC and basic metabolic profile were obtained and were within normal limits. Initial high-sensitivity troponin was normal at 41. Serum acetone level was negative. 2-hour repeat high-sensitivity troponin was normal at 37. Portable chest x-ray was obtained. There is 1 view. On my interpretation, there is bilateral infiltrates. Bony thorax was normal. There is no cardiomegaly. Radiologist also interpreted the x-rays and agrees. Patient had a positive COVID-19 antigen on 03/19/2021. This was not repeated here. Patient was feeling better on reevaluation. Patient's heart rate improved. Patient's oxygen saturation dropped to 86% on room air. Patient is not on home oxygen. Because of this, I will discussed the case with the hospitalist. He was in to evaluate the patient. He will admit the patient to his service. Patient understood and was agreeable with the plan. All questions were answered. Lab Data Attestation: I reviewed the patient's lab results. Labs: Laboratory Results - last 24 hr 04/07/21 04/07/21 04/07/21 13:10 13:10 14:24 WBC 5.6 RBC 3.64 L Hgb 10.2 L Hct 31.8 L MCV 87.4 MCH 28.0 MCHC 32.1 RDW Std Deviation 45.6 H RDW Coeff of Elio 14.6 Plt Count 245 MPV 9.9 Immature Gran % (Auto) 1.800 H Neut % (Auto) 68.1 Lymph % (Auto) 17.0 L [place] % (Auto) 10.5 H Eos % (Auto) 2.1 Baso % (Auto) 0.5 Absolute Neuts (auto) 3.8 Absolute Lymphs (auto) 0.95 Nucleated RBC % 0 Sodium 132 L Potassium 4.4 Chloride 97 L Carbon Dioxide 26.0 Anion Gap 9 BUN 15 Creatinine 0.78 Estim Creat Clear Calc 78.51 Est GFR (MDRD) Af Amer 100 Est GFR (MDRD) Non-Af 83 BUN/Creatinine Ratio 19.1 Glucose 324 H Calcium 8.9 Troponin I High Sens 41 Acetone Level NEGATIVE 04/07/21 15:11 WBC RBC Hgb Hct MCV MCH MCHC RDW Std Deviation RDW Coeff of Elio Plt Count MPV Immature Gran % (Auto) Neut % (Auto) Lymph % (Auto) [place] % (Auto) Eos % (Auto) Baso % (Auto) Absolute Neuts (auto) Absolute Lymphs (auto) Nucleated RBC % Sodium Potassium Chloride Carbon Dioxide Anion Gap BUN Creatinine Estim Creat Clear Calc Est GFR (MDRD) Af Amer Est GFR (MDRD) Non-Af BUN/Creatinine Ratio Glucose Calcium Troponin I High Sens 37 Acetone Level Radiography Chest X-Ray - ED: 1 View, Read by ED Physician, Read by Radiologist, Right Infiltrate and Left Infiltrate Diagnostic Testing: Clinical Impression(s) from Imaging Studies Chest X-Ray 04/07/21 13:13 IMPRESSION: Bilateral pneumonia. Electronically Signed: Breezy Yusuf MD at 13:57 EST Tel , Service support , EKG Initial EKG: Attestation: I personally reviewed and interpreted this EKG as follows: Interpretation: Sinus Tachycardia (121) and Non-Specific ST Changes Prior EKG tracings: available for review Prior: Unchanged (03/19/2021) Treatment and Re-Evaluation Vital Sign Attestation:: Vital signs were reviewed prior to admission. Patient is still slightly tachycardic but this is improving. Discharge Plan Dx/Rx/DC Orders Clinical Impression: Pneumonia due to COVID-19 virus, Hypoxia Disposition Disposition: Acute Care Hospital [facility]
[2021-04-07] MEDS: dexAMETHasone 4 MG/ML Vial 6 MG IV (16:35)
--- NOTE | 2021-04-07 16:36 | PCM.HP.STD ---
HPI - General HPI Narrative EMILY CAGE, is a 50 F with history of type 2 diabetes mellitus who was recently in the hospital admitted for DKA with COVID-19 infection, between 03/19?03/24 came to ER for shortness of breath, chest pain progressively getting worse for 4 days. Patient describes her chest pain central, midsternal without radiation exacerbated by cough and deep breathing and exertion persistent. Chest pain does not wake up from sleep. She has mild cough predominantly dry with minimal clear sputum production. Denies fever or chills, sweating but has palpitation. She has palpitation has noticed in the previous hospital course, heart rate usually 120/min which has been going on since 2016. During previous hospitalization, she was referred to consumer safety officer and outpatient 2D echo but not done. In ED, she requires 2 L of oxygen and is tachycardic. She was tested positive of COVID-19 on 03/12 therefore almost had more than 3 weeks. During that time she did not require steroids or remdesivir and no acute chest x-ray abnormality during first admission chest x-ray reviewed and shows worsening of infiltrates bilaterally. Twelve-lead EKG sinus tachycardia at 121 bpm, QTC 502 ms, SC interval 146 ms. [facility] Medical History Arthritis Back problem Bursitis Carpal tunnel syndrome Depression Diabetes Diabetes mellitus Fibromyalgia GERD (gastroesophageal reflux disease) Headache High cholesterol History of diabetes mellitus Osteoarthritis Seasonal allergic conjunctivitis ULCERS Vision problems Vitamin deficiency Home Medications gabapentin 600 mg PO TID 03/23/21 [History Last Taken Unknown] lisinopril 2.5 mg PO DAILY 03/23/21 [History Last Taken Unknown] omeprazole 20 mg PO DAILY 03/23/21 [History Last Taken Unknown] ondansetron 4 mg PO TID PRN 03/23/21 [History Last Taken Unknown] insulin glargine [Lantus Solostar U-100 Insulin] 15 unit SUBCUT DAILY #15 ml 03/24/21 [Rx Last Taken Unknown] metformin 1,000 mg PO BID #60 tab 03/24/21 [Rx Last Taken Unknown] Allergy/AdvReac Type Severity Reaction Status Date / Time etodolac [From [facility]] Allergy Rash Verified 04/07/21 11:22 Family History Mother Arthritis Hypertension Melanoma Father Arthritis Bleeding disorder Diabetes Heart disease High cholesterol Son Kidney disease H/O psychiatric care Uncle Alcoholism Liver disease Grandmother Arthritis Cancer Lung cancer Sister Epilepsy Melanoma Skin cancer Aunt CVA (cerebral vascular accident) Surgical History H/O knee surgery History of carpal tunnel surgery History of hysterectomy Social History Smoking Status: Former smoker details: RARELY substance use type: does not use ROS ROS Narrative Constitutional: Reports fatigue and weakness. No fever HEENT: Reports systems reviewed and no addt'l complaints, except as documented Respiratory/Chest: Chest pain admission HPI Gastrointestinal: Denies coffee ground emesis, hematemesis or vomiting. No loss of appetite. Genitourinary: Denies burning urination or new urinary tract symptoms Musculoskeletal: Does not report joint pain and limited range of motion Neurologic: Denies seizure-like activity skin: No ulcer. No rash Endocrinology: Reports systems reviewed and no addt'l complaints, except as documented Hematologic/Lymphatic: Reports systems reviewed and no addt'l complaints, except as documented Rest 12 ROS are negative except as mentioned in HPI Vital Signs Vital Signs Vital Signs: 04/07/21 11:19 04/07/21 12:13 04/07/21 14:26 Temperature 96.5 F L Temperature Source Temporal Pulse Rate 125 H 72 Respiratory Rate 16 15 Respiratory Effort Respiratory Depth Respiratory Pattern Blood Pressure 93/64 96/75 Blood Pressure Mean 73 82 Pulse Ox 86 94 96 Oxygen Delivery Method Room Air Nasal Cannula Room Air Oxygen Flow Rate (L/min) 2 04/07/21 14:28 04/07/21 15:14 04/07/21 15:41 Temperature 98.9 F 98.3 F Temperature Source Oral Oral Pulse Rate 108 H Respiratory Rate 21 H Respiratory Effort Short of Breath Respiratory Depth Deep Respiratory Pattern Tachypnea Blood Pressure 126/74 H Blood Pressure Mean 91 Pulse Ox 92 Oxygen Delivery Method Nasal Cannula Nasal Cannula Oxygen Flow Rate (L/min) 2 2 04/07/21 16:02 Temperature 98.3 F Temperature Source Oral Pulse Rate 115 H Respiratory Rate 24 H Respiratory Effort Respiratory Depth Respiratory Pattern Blood Pressure 129/85 H Blood Pressure Mean 99 Pulse Ox 95 Oxygen Delivery Method Nasal Cannula Oxygen Flow Rate (L/min) 2 Weight Weight: 157 lb Body Mass Index (BMI) 26.1 Physical Exam Narrative General: Alert, Oriented x3, Cooperative HEENT: Atraumatic, PERRLA, EOMI, Normocephalic Oral: Oral mucosa dry. No Gingival or Mucosal Lesions/ Ulcerations Neck: Supple, No JVD, Negative Carotid Bruits Lungs: Air entry diminished in bilateral lung bases. No crepitation/rhonchi/wheezing. Mild hypoxia Cardiovascular: Sinus tachycardia, Normal S1, Normal S2, No murmurs Abdomen: Bowel Sounds Present, Soft, Non Tender, Non-Distended : No renal angle tenderness. No suprapubic tenderness. Extremities: No edema, Capillary Refill Less than 3 Seconds Skin: No rashes, No breakdown Musculoskeletal: No Tenderness to Palpation of Joints or Extremities. No obvious leg swelling or signs of DVT Neurological: Cranial nerves II-XII grossly intact, DTR 2+/4 and Symmetrical, Neuro grossly intact Psych/Mental Status: Normal Affect, Appropriate. Results Lab / Micro Data Result Diagrams: 04/07/21 13:10 04/07/21 13:10 Labs: Laboratory Results - last 24 hr 04/07/21 13:10: WBC 5.6, RBC 3.64 L, Hgb 10.2 L, Hct 31.8 L, MCV 87.4, MCH 28.0, MCHC 32.1, RDW Std Deviation 45.6 H, RDW Coeff of Elio 14.6, Plt Count 245, MPV 9.9, Immature Gran % (Auto) 1.800 H, Neut % (Auto) 68.1, Lymph % (Auto) 17.0 L, [place] % (Auto) 10.5 H, Eos % (Auto) 2.1, Baso % (Auto) 0.5, Absolute Neuts (auto) 3.8, Absolute Lymphs (auto) 0.95, Nucleated RBC % 0 04/07/21 13:10: Sodium 132 L, Potassium 4.4, Chloride 97 L, Carbon Dioxide 26.0, Anion Gap 9, BUN 15, Creatinine 0.78, Estim Creat Clear Calc 78.51, Est GFR (MDRD) Af Amer 100, Est GFR (MDRD) Non-Af 83, BUN/Creatinine Ratio 19.1, Glucose 324 H, Calcium 8.9, Troponin I High Sens 41 04/07/21 14:24: Acetone Level NEGATIVE 04/07/21 15:11: Troponin I High Sens 37 Radiology Impression Chest X-Ray 04/07/21 13:13 IMPRESSION: Bilateral pneumonia. Electronically Signed: Breezy Yusuf MD at 13:57 EST Tel , Service support , Assessment & Plan Assessment/Plan (1) Pneumonia due to COVID-19 virus: PLAN: 1. Bilateral pneumonia probably COVID-19 with secondary bacterial infection: Patient is being admitted to [facility] floor. Started on IV ceftriaxone and doxycycline. Pneumonia work-up with sputum culture, blood antigens and blood culture ordered. Inflammatory markers ordered. Patient does not require Covid isolation as she had more than 3 weeks of COVID-19 infection. Flu panel ordered. Rapid COVID-19 antigen ordered patient is started on dexamethasone 6 mg daily. 2. Sinus tachycardia with atypical chest pain probably pericarditis/pleuritis: Isolated troponin negative. EKG did not show ST-T changes of pericarditis but QTC is prolonged. QTc 422 ms. Repeat EKG daily for next 2 days. Avoid QTC prolonging medication including Zofran, azithromycin and others. 2D echo ordered 3. Diabetes mellitus type 2 with hyperglycemia, uncontrolled complicated with diabetic neuropathy: Glucose is 32 4 mg/dL. During previous hospitalization A1c 13.6%. Accu-Chek insulin is given with Hem-o-beatriz sliding scale along with scheduled 10 units Humalog insulin 3 times daily before meals and 20 units Lantus daily. Labs not consistent with DKA. Anion gap 9. Bicarb 26. Potassium normal. Patient home gabapentin continued. Hold Metformin 4. Hypovolemic hyponatremia: IV fluid normal saline at 100 mL/h for 1 L. 5. Other comorbidities include hypertension, anxiety and depression and GERD: Patient on omeprazole, lisinopril continued. Not on SSRIs or SNRIs VTE prophylaxis: Lovenox 30 mils subcu twice daily CODE STATUS: Full code Charges/Coding Visit Charges Inpatient E&M: 22552 Init Hosp L3
--- NOTE | 2021-04-07 18:33 | PCS.PANDOC ---
PANDEMIC DOCUMENTATION INITIATED: Date: 11/19/2020 Time: 190
[2021-04-07 19:04] LABS: International Normalized Ratio 1.1; Prothrombin Time (Protime)PT. 13.8 SECONDS (11.7-14.9)
[2021-04-07 19:05] LABS: D-Dimer Quantitative (DVT/PE) 3.96 FEU/ug/m (0.27-0.49); Fibrinogen > 900 mg/dl (203-444)
[2021-04-07 19:06] LABS: Bedside Glucose 302 mg/dL (70-110)
[2021-04-07 19:09] LABS: BNP,B-Type NATRIURETIC PEPTIDE 385.2 pg/mL (0-100)
[2021-04-07 19:11] LABS: CPK Total, Creatine Kinase 23 U/L (26-192)
--- NOTE | 2021-04-07 19:12 | CT_ITS ---
STUDY: CTA CHEST REASON FOR EXAM: Female, 50 years old. Elevated d-dimer RADIATION DOSAGE (If Supplied By Facility): CTDIvol = ( 14.29 ) mGy, DLP = ( 512.19 ) mGycm TECHNIQUE: The examination was performed with the intravenous administration of IV 100mL Isovue-370. Post-processing of the angiographic images was performed, with multiplanar reformation and 3D reconstruction. Individualized dose optimization techniques were used for this CT. COMPARISON: Chest x-ray 04/07/2021 FINDINGS: Normal enhancement of the main pulmonary artery and right and left pulmonary arteries. Normal enhancement of the bilateral peripheral pulmonary arteries. There is no demonstrated pulmonary embolism. Normal thoracic aorta and visualized great vessels. There is no demonstrated aortic dissection. Normal heart and pericardium. Prominent mediastinal reactive borderline lymphadenopathy. Normal hilar regions. Normal visualized trachea and bronchi. Multifocal bilateral groundglass opacities. Bilateral airspace disease peripherally. Normal pulmonary parenchyma. Moderate bilateral pleural effusions. Normal chest wall structures. Normal osseous structures. Normal visualized upper abdomen. CT/CTA Chest W/WO Contrast IMPRESSION: Multifocal bilobed groundglass opacities suggestive of covid 19 other etiologies not excluded. Moderate bilateral pleural effusions. Electronically Signed: Júnior Sadler MD at 22:24 EST , Service support ,
[2021-04-07 19:17] LABS: Procalcitonin 1.08 ng/mL (0.00-0.09)
[2021-04-07 20:08] LABS: LDH 346 U/L (84-246); Magnesium 1.6 mg/dL (1.6-2.6)
[2021-04-07] MEDS: Ceftriaxone 1 GM/50 ML BAG IV (21:03)
[2021-04-07] MEDS: Enoxaparin 30 MG/0.3 ML Syringe SC (21:04)
[2021-04-07] MEDS: Metoprolol Tartrate 25 MG Tablet PO (21:04)
[2021-04-07] MEDS: Gabapentin 600 MG Tablet PO (21:05)
[2021-04-07] MEDS: Doxycycline 100 MG CAPSULE PO (21:05)
[2021-04-07] MEDS: Insulin Lispro 100 UNIT/ML INSULN.PEN SC (21:11)
[2021-04-07 21:21] LABS: Bedside Glucose 423 mg/dL (70-110)
[2021-04-07 21:53] LABS: Lactic Acid 0.9 mmol/L (0.4-1.9)
[2021-04-08] VITALS (14 sets, daily range): BP systolic 89–106; BP diastolic 57–73; PULSE 72–96; RESP 16–20; TEMP 36.4–36.9; O2SAT 92–97
[2021-04-08] MEDS: Gabapentin 600 MG Tablet PO ×3 (05:02→20:51)
--- NOTE | 2021-04-08 05:55 | EKG12_ITS ---
Test Reason : AM Blood Pressure : / mmHG Vent. Rate : 088 BPM Atrial Rate : 088 BPM P-R Int : 144 ms QRS Dur : 076 ms QT Int : 446 ms P-R-T Axes : 059 -15 -36 degrees QTc Int : 539 ms Normal sinus rhythm T wave abnormality, consider anterior ischemia Prolonged QT Abnormal ECG When compared with ECG of 08-APR-2021 05:20, MANUAL COMPARISON REQUIRED, DATA IS UNCONFIRMED Confirmed by CORIE CORONADO, RAMSES ([id number]), sound editor CORINNA BRAVO ([id number]) on 04/18/2021 1:53:44 PM Referred By: BRANDEE Confirmed By:MICHELL FONTENOT MD
--- NOTE | 2021-04-08 05:55 | ECHOD_ITS ---
Reason For Study: Chest Pain Procedure This was a 2D Doppler, Color Flow transthoracic echocardiogram. Exam performed portable in patient room. Left Ventricle Normal LV size. Left ventricular systolic function is normal. The estimated ejection fraction is 60 %. No regional wall motion abnormalities noted. Right Ventricle Normal RV size. Normal systolic function. Atria Normal left atrium. Normal right atrium. Mitral Valve Normal mitral valve. Tricuspid Valve Normal tricuspid valve. Mild tricuspid valve insufficiency. Pulmonary artery systolic pressure is 30 mmHg. Aortic Valve Trisinus/trileaflet aortic valve. Pulmonic Valve Normal pulmonic valve. Great Vessels Normal aortic root. The pulmonary artery is normal size. Normal inferior vena cava. Pericardium/Pleural No pericardial effusion. MMode/2D Measurements & Calculations LVIDd: 4.0 cm IVSd: 1.2 cm LA dimension: 3.5 cm LVIDs: 2.8 cm LVPWd: 0.89 cm RVDd: 3.8 cm FS: 29.8 % LAV(MOD-bp): 55.2 ml LA A4 area: 17.1 cm2 RA A4 area: 13.8 cm2 LAV(MOD-bp) Indexed: 30.9 ml/m2 LAV(MOD-sp2): 59.5 ml LAV(MOD-sp4): 45.4 ml Time Measurements MV dec time: 0.18 sec Doppler Measurements & Calculations MV E max edouard: 87.9 cm/sec Lat Peak E' Edouard: 12.4 cm/sec Med Peak E' Edouard: 8.5 cm/sec MV A max edouard: 76.6 cm/sec E/E' lat: 7.1 E/E' med: 10.4 MV E/A: 1.1 MV V2 max: 100.3 cm/sec MV P1/2t max edouard: 100.3 cm/sec Ao V2 max: 128.6 cm/sec MV max P.0 mmHg MV P1/2t: 62.4 msec Ao max P.6 mmHg MV V2 mean: 60.3 cm/sec MV dec slope: 470.5 cm/sec2 MV mean P.7 mmHg MVA(P1/2t): 3.5 cm2 MV V2 VTI: 21.8 cm LV V1 max: 103.0 cm/sec PA V2 max: 86.7 cm/sec TR max edouard: 255.1 cm/sec LV V1 max P.2 mmHg TR max P.0 mmHg ECHO/Echo Complete Interpretation Summary Normal LV size. Left ventricular systolic function is normal. The estimated ejection fraction is 60 %. Pulmonary artery systolic pressure is 30 mmHg. Structurally normal valves. Ordering Physician: Rad Shen Referring Physician: Sapna Ray Performed By: Satya Plascencia RCS
[2021-04-08] MEDS: Insulin Lispro 100 UNIT/ML INSULN.PEN SC ×4 (06:07→20:51)
[2021-04-08 06:46] LABS: Bedside Glucose 362 mg/dL (70-110)
[2021-04-08 06:51] LABS: Absolute Neutrophil Count 2.5 X10^3/uL (2.0-7.7); Basophil# 0.01 X10^3/uL; Basophil% 0.3 % (0-1); Eosinophil# 0.01 X10^3/uL; Eosinophils% 0.3 % (0-5); Hematocrit 28.4 % (37-47); Lymphocyte % 16.5 % (19-41); Mean Corp Hgb Conc 31.7 g/dL (32-36); Mean Corpuscular Hgb 27.9 pg (27.0-32.0); Mean Corpuscular Volume 87.9 fL (81-99); Mean Platelet Vol. 10.4 fl (6.2-12.0); NRBC Flagged by Analyzer 0 % (0-5); Neutrophil # 2.53 X10^3/uL (2.7-7.7); Neutrophil % 69.7 % (47-70); POSITIVE DIFFERENTIAL YES; Platelet Count 264 K/mm3 (150-450); RBC Distribution Width CV 14.5 % (11.6-14.6); RBC Distribution Width SD 45.3 fl (35.1-43.9); Red Blood Count 3.23 M/mm3 (4.2-5.4); White Blood Count 3.6 K/mm3 (4.4-11.0)
[2021-04-08 07:00] LABS: Differential Indicated SCAN CRITERIA MET
[2021-04-08 07:07] LABS: ALB/GLOB Ratio 0.4 RATIO (0.9-2.4); AST(SGOT) 46 U/L (15-37); Alanine Aminotransfer ALT/SGPT 39 U/L (13-56); Alkaline Phosphatase 87 U/L (45-117); Anion Gap 11 (5-15); BUN 22 mg/dL (7-18); BUN/Creat Ratio 30.9 RATIO (10-20); Calcium,Total 8.7 mg/dL (8.5-10.1); Chloride 100 mmol/L (98-107); Creatinine, Serum 0.71 mg/dL (0.55-1.02); EST Glomerular Filtration Rate 92 mL/min (>60); Est Glom Filt Rate - Afr Amer 112 mL/min (>60); Estimated Creatinine Clearance 86.25 ml/min; Globulin 4.9 g/dL (2.2-4.2); Glucose 390 mg/dL (74-106); Potassium 4.6 mmol/L (3.5-5.1); Protein, Total 6.9 g/dL (6.4-8.2); Sodium Level 134 mmol/L (136-145)
--- NOTE | 2021-04-08 07:56 | PN.HOSP_ITS ---
Subjective Subjective No fever. Heart rate in 90s. Blood pressure 106/73. Objective Data Objective Data Vital Signs: Vital Signs Temp Pulse Resp BP Pulse Ox 97.8 F 90 18 106/73 92 04/08/21 06:03 04/08/21 07:26 04/08/21 06:03 04/08/21 06:03 04/08/21 06:03 Oxygen Flow Rate (L/min) 2 Oxygen Delivery Method Nasal Cannula Weight: 158 lb 15.253 oz Body Mass Index (BMI) 26.4 Intake & Output: Intake and Output for Last 24 Hours 04/06/21 04/07/21 04/08/21 23:59 23:59 23:59 Intake Total 550 / 550 Output Total 400 / 400 900 / 900 Balance 150 / 150 -900 / -900 Lab / Micro Data Result Diagrams: 04/08/21 06:10 04/08/21 06:10 Labs: Laboratory Results - last 24 hr 04/07/21 13:10: WBC 5.6, RBC 3.64 L, Hgb 10.2 L, Hct 31.8 L, MCV 87.4, MCH 28.0, MCHC 32.1, RDW Std Deviation 45.6 H, RDW Coeff of Elio 14.6, Plt Count 245, MPV 9.9, Immature Gran % (Auto) 1.800 H, Neut % (Auto) 68.1, Lymph % (Auto) 17.0 L, [place] % (Auto) 10.5 H, Eos % (Auto) 2.1, Baso % (Auto) 0.5, Absolute Neuts (auto) 3.8, Absolute Lymphs (auto) 0.95, Nucleated RBC % 0 04/07/21 13:10: Sodium 132 L, Potassium 4.4, Chloride 97 L, Carbon Dioxide 26.0, Anion Gap 9, BUN 15, Creatinine 0.78, Estim Creat Clear Calc 78.51, Est GFR (MDRD) Af Amer 100, Est GFR (MDRD) Non-Af 83, BUN/Creatinine Ratio 19.1, Glucose 324 H, Calcium 8.9, Troponin I High Sens 41 04/07/21 13:10: PT 13.8, INR 1.1, Fibrinogen > 900 H, D-Dimer Quant (PE/DVT) 3.96 H* 04/07/21 14:24: Acetone Level NEGATIVE 04/07/21 14:24: B-Natriuretic Peptide 385.2 H 04/07/21 14:24: Procalcitonin 1.08 H 04/07/21 15:01: Magnesium 1.6, Lactate Dehydrogenase 346 H, C-React Prot Ext Range 246.00 H 04/07/21 15:01: Total Creatine Kinase 23 L 04/07/21 15:11: Troponin I High Sens 37 04/07/21 19:01: POC Glucose 302 H 04/07/21 21:00: POC Glucose 423 H 04/07/21 21:13: Lactic Acid 0.9 04/08/21 06:06: POC Glucose 362 H 04/08/21 06:10: WBC 3.6 L, RBC 3.23 L, Hgb 9.0 L, Hct 28.4 L, MCV 87.9, MCH 27.9, MCHC 31.7 L, RDW Std Deviation 45.3 H, RDW Coeff of Elio 14.5, Plt Count 264, MPV 10.4, Immature Gran % (Auto) 2.200 H, Neut % (Auto) 69.7, Lymph % (Auto) 16.5 L, [place] % (Auto) 11.0 H, Eos % (Auto) 0.3, Baso % (Auto) 0.3, Absolute Neuts (auto) 2.5, Absolute Lymphs (auto) 0.60 L, Nucleated RBC % 0, Diff Path Review August04/08/21 06:10: Sodium 134 L, Potassium 4.6, Chloride 100, Carbon Dioxide 23.0, Anion Gap 11, BUN 22 H, Creatinine 0.71, Estim Creat Clear Calc 86.25, Est GFR (MDRD) Af Amer 112, Est GFR (MDRD) Non-Af 92, BUN/Creatinine Ratio 30.9 H, Glucose 390 H, Calcium 8.7, Total Bilirubin 0.40, AST 46 H, ALT 39, Alkaline Phosphatase 87, Total Protein 6.9, Albumin 2.0 L, Globulin 4.9 H, Albumin/Globulin Ratio 0.4 L Micro: Microbiology 04/07/21 21:15 Urine, Clean Catch Legionella Antigen - Final 04/07/21 21:15 Urine, Clean Catch Streptococcus pneumoniae Antigen (M - Final 04/07/21 17:35 Mucosa - Nasopharyngeal Influenza Types A,B Direct FA ([facility]) - Final Radiography Diagnostic Testing: Radiology Impression Chest X-Ray 04/07/21 13:13 IMPRESSION: Bilateral pneumonia. Electronically Signed: Breezy Yusuf MD at 13:57 EST Tel , Service support , Chest CTA 04/07/21 19:12 IMPRESSION: Multifocal bilobed groundglass opacities suggestive of covid 19 other etiologies not excluded. Moderate bilateral pleural effusions. Electronically Signed: Júnior Sadler MD at 22:24 EST , Service support , Physical Exam Narrative General: Alert, Oriented x3, Cooperative HEENT: Atraumatic, PERRLA, EOMI, Normocephalic Oral: Oral mucosa dry. No Gingival or Mucosal Lesions/ Ulcerations Neck: Supple, No JVD, Negative Carotid Bruits Lungs: Air entry diminished in bilateral lung bases. No cr epitation/rhonchi/wheezing. Mild hypoxia Cardiovascular: Sinus tachycardia, Normal S1, Normal S2, No murmurs Abdomen: Bowel Sounds Present, Soft, Non Tender, Non-Distended : No renal angle tenderness. No suprapubic tenderness. Extremities: No edema, Capillary Refill Less than 3 Seconds Skin: No rashes, No breakdown Musculoskeletal: No Tenderness to Palpation of Joints or Extremities. No obvio us leg swelling or signs of DVT Neurological: Cranial nerves II-XII grossly intact, DTR 2+/4 and Symmetrical, Neuro grossly intact Psych/Mental Status: Normal Affect, Appropriate. Assessment & Plan Assessment/Plan (1) Pneumonia due to COVID-19 virus: PLAN: 1. Bilateral pneumonia probably COVID-19 with secondary bacterial infection: Patient is being admitted to MedSurg floor. Started on IV ceftriaxon e and doxycycline. Pneumonia work-up with sputum culture, blood antigens and blood culture ordered. Inflammatory markers ordered. Patient does not require Covid isolation as she had more than 3 weeks of COVID-19 infection. Flu panel ordered. Rapid COVID-19 antigen ordered patient is started on dexamethasone 6 mg daily. 04/08: Chest CTA shows bilateral pleural effusion multifocal bilateral groundglass opacity suggestive of COVID-19 pneumonia. Discussed with ID and continue dexamethasone. Sputum culture shows 3+ GPC. Rapid SARS-CoV-2 antigen negative. Continue IV ceftriaxone and doxycycline 2. Sinus tachycardia with atypical chest pain probably pericarditis/pleuritis: Isolated troponin negative. EKG did not show ST-T changes of pericarditis but QTC is prolonged. QTc 422 ms. Repeat EKG daily for next 2 days. Avoid QTC prolonging medication including Zofran, azithromycin and others. 04/08: 2D echo shows EF 60%. No R WMA. Normal RV size, normal left atrium. PASP 30 mmHg. 3. Diabetes mellitus type 2 with hyperglycemia, uncontrolled complicated with diabetic neuropathy: Glucose is 32 4 mg/dL. During previous hospitalization A1c 13.6%. Accu-Chek insulin is given with Hem-o-beatriz sliding scale along with scheduled 10 units Humalog insulin 3 times daily before meals and 20 units Lantus daily. Labs not consistent with DKA. Anion gap 9. Bicarb 26. Potassium normal. Patient home gabapentin continued. Hold Metformin 04/08: Glucose high and uncontrolled, 390 mg/dL. Lantus and and Humalog insulin increased 4. Hypovolemic hyponatremia: IV fluid normal saline at 100 mL/h for 1 L. 3: Sodium 134 5. Other comorbidities include hypertension, anxiety and depression and GERD: Patient on omeprazole, lisinopril continued. Not on SSRIs or SNRIs VTE prophylaxis: Lovenox 30 mils subcu twice daily CODE STATUS: Full code Charges/Coding Visit Charges Inpatient E&M: 82615 Subs Hosp L2
[2021-04-08] MEDS: Insulin Lispro 100 UNIT/ML INSULN.PEN 10 UNIT SC (08:08)
[2021-04-08] MEDS: Doxycycline 100 MG CAPSULE PO ×2 (10:54→20:50)
[2021-04-08] MEDS: DULoxetine Hcl 30 MG Capsule PO (10:54)
[2021-04-08] MEDS: DULoxetine Hcl 60 MG Capsule PO (10:54)
[2021-04-08] MEDS: dexAMETHasone 2 MG TABLET 6 MG PO (10:54)
[2021-04-08] MEDS: Metoprolol Tartrate 25 MG Tablet PO (10:55)
[2021-04-08] MEDS: Enoxaparin 30 MG/0.3 ML Syringe SC ×2 (10:56→20:50)
[2021-04-08] MEDS: Pantoprazole Sodium 20 MG Tablet PO (10:57)
[2021-04-08] MEDS: Fenofibrate 48 MG Tablet PO ×2 (10:57→20:50)
[2021-04-08] MEDS: Lisinopril 2.5 MG Tablet PO (10:57)
[2021-04-08] MEDS: Ceftriaxone 1 GM/50 ML BAG IV (11:05)
[2021-04-08 11:36] LABS: Bedside Glucose 213 mg/dL (70-110)
[2021-04-08] MEDS: Insulin Lispro 100 UNIT/ML INSULN.PEN 20 UNIT SC ×2 (11:48→16:38)
[2021-04-08 14:04] LABS: Pathologist Review Reviewed
--- NOTE | 2021-04-08 14:46 | PCM.CONS.GEN ---
Assessment & Plan Assessment/Plan (1) Pneumonia due to COVID-19 virus: PLAN: Sx started around 03/12, now with hypoxia, dyspnea. Sputum cx pending. Feeling better. On dex, doxy, ceftriaxone. Encouraged vaccination after discharge. CT showed moderate bilat effusions, echo done. Will follow, thank you, d/w Dr. Shen (2) Hypoxia: HPI Consult Data Date of Consult: 04/08/21 HPI Narrative HPI Narrative: EMILY CAGE, is a 50 F who presented with 5 days worsening dyspnea, hypoxia, chest pressure. Developed covid around 03/12. Sat down to 67% at home. Came to ED, admitted 1/2 on doxy and ceftriaxone, feeling much better today. Minimal sputum. No n/v/d. Unvaccinated. Full ROS performed and neg except as noted above. [facility] Medical History Alcohol abuse Anxiety Arthritis Back problem Bursitis Carpal tunnel syndrome Depression Diabetes Diabetes mellitus Fibromyalgia GERD (gastroesophageal reflux disease) Headache High cholesterol History of diabetes mellitus Osteoarthritis Seasonal allergic conjunctivitis Sleep apnea ULCERS Vision problems Vitamin deficiency Home Medications gabapentin 600 mg PO TID 03/23/21 [History Last Taken 04/06/21] lisinopril 2.5 mg PO DAILY 03/23/21 [History Last Taken 04/06/21] omeprazole 20 mg PO DAILY 03/23/21 [History Last Taken 04/06/21] ondansetron 8 mg PO TID PRN 03/23/21 [History Last Taken 04/06/21] insulin glargine [Lantus Solostar U-100 Insulin] 15 unit SUBCUT DAILY #15 ml 03/24/21 [Rx Last Taken 04/06/21] metformin 1,000 mg PO BID #60 tab 03/24/21 [Rx Last Taken 04/06/21] acidophilus-sporogenes [Acidophilus Ex Str (L. sporog)] 1 tab PO DAILY 04/07/21 [History Last Taken Unknown] duloxetine 30 mg PO DAILY 04/07/21 [History Last Taken Unknown] duloxetine 60 mg PO DAILY 04/07/21 [History Last Taken Unknown] fenofibrate micronized 67 mg PO BID 04/07/21 [History Last Taken Unknown] insulin lispro SUBCUT 04/07/21 [History Last Taken Unknown] Allergy/AdvReac Type Severity Reaction Status Date / Time etodolac [From Lodine] Allergy Rash Verified 04/07/21 11:22 Family History Mother Arthritis Hypertension Melanoma Father Arthritis Bleeding disorder Diabetes Heart disease High cholesterol Son Kidney disease H/O psychiatric care Uncle Alcoholism Liver disease Grandmother Arthritis Cancer Lung cancer Sister Epilepsy Melanoma Skin cancer Aunt CVA (cerebral vascular accident) Surgical History H/O knee surgery History of carpal tunnel surgery History of hysterectomy Social History Smoking Status: Former smoker details: RARELY substance use type: does not use Physical Exam Const alert, oriented x3 and no apparent distress General Appearance: cooperative Exam Limitations: no limitations HEENT normocephalic and head/scalp atraumatic Eyes PERRL and EOMs intact bilaterally Neck supple and No nodes Resp Auscultation: diminished lung sounds Cardio regular rate and regular rhythm GI normal to inspection, nondistended, normoactive bowel sounds Extremity no clubbing, cyanosis or edema Skin no rashes or lesions noted Neuro CN's II-XII intact bilaterally Lab / Micro Data Result Diagrams: 04/08/21 06:10 04/08/21 06:10 Labs: Laboratory Results - last 24 hr 04/07/21 13:10: PT 13.8, INR 1.1, Fibrinogen > 900 H, D-Dimer Quant (PE/DVT) 3.96 H* 04/07/21 14:24: Acetone Level NEGATIVE 04/07/21 14:24: B-Natriuretic Peptide 385.2 H 04/07/21 14:24: Procalcitonin 1.08 H 04/07/21 15:01: Magnesium 1.6, Lactate Dehydrogenase 346 H, C-React Prot Ext Range 246.00 H 04/07/21 15:01: Total Creatine Kinase 23 L 04/07/21 15:11: Troponin I High Sens 37 04/07/21 19:01: POC Glucose 302 H 04/07/21 21:00: POC Glucose 423 H 04/07/21 21:13: Lactic Acid 0.9 04/08/21 06:06: POC Glucose 362 H 04/08/21 06:10: WBC 3.6 L, RBC 3.23 L, Hgb 9.0 L, Hct 28.4 L, MCV 87.9, MCH 27.9, MCHC 31.7 L, RDW Std Deviation 45.3 H, RDW Coeff of Elio 14.5, Plt Count 264, MPV 10.4, Immature Gran % (Auto) 2.200 H, Neut % (Auto) 69.7, Lymph % (Auto) 16.5 L, [place] % (Auto) 11.0 H, Eos % (Auto) 0.3, Baso % (Auto) 0.3, Absolute Neuts (auto) 2.5, Absolute Lymphs (auto) 0.60 L, Nucleated RBC % 0, Diff Path Review Reviewed 04/08/21 06:10: Sodium 134 L, Potassium 4.6, Chloride 100, Carbon Dioxide 23.0, Anion Gap 11, BUN 22 H, Creatinine 0.71, Estim Creat Clear Calc 86.25, Est GFR (MDRD) Af Amer 112, Est GFR (MDRD) Non-Af 92, BUN/Creatinine Ratio 30.9 H, Glucose 390 H, Calcium 8.7, Total Bilirubin 0.40, AST 46 H, ALT 39, Alkaline Phosphatase 87, Total Protein 6.9, Albumin 2.0 L, Globulin 4.9 H, Albumin/Globulin Ratio 0.4 L 04/08/21 11:07: POC Glucose 213 H Micro: Microbiology 04/08/21 10:00 Nasal Secretion SARS-CoV-2 Antigen (Rapid) - Final 04/08/21 02:00 Sputum, Expectorated/Coughed Gram Stain - Final 04/07/21 21:15 Urine, Clean Catch Legionella Antigen - Final 04/07/21 21:15 Urine, Clean Catch Streptococcus pneumoniae Antigen (M - Final 04/07/21 17:35 Mucosa - Nasopharyngeal Influenza Types A,B Direct FA (YASIR) - Final Radiology Impression Chest CTA 04/07/21 19:12 IMPRESSION: Multifocal bilobed groundglass opacities suggestive of covid 19 other etiologies not excluded. Moderate bilateral pleural effusions. Electronically Signed: Júnior Sadler MD at 22:24 EST , Service support , Echocardiogram 04/08/21 05:55 Interpretation Summary Normal LV size. Left ventricular systolic function is normal. The estimated ejection fraction is 60 %. Pulmonary artery systolic pressure is 30 mmHg. Structurally normal valves. Ordering Physician: Rad Shen Referring Physician: Sapna Ray Performed By: Satya Plascencia RCS
--- NOTE | 2021-04-08 16:10 | CASEMGMT ---
PAUL CHAO Readmission Note Previous Admission: 03/19/2021-03/24/2021 Diagnosis:DKA, COVID PNA DC Disposition: Home Current Admission Diagnosis: COVID 19 PAUL CHAO in to pt room. Pt reports she has all of the needed supplies at home for checking her blood sugar. She recently received a new meter with sufficient supply of lancets and strips. Pt has insulin pens and needles. Pt states she checks her blood sugars 3x/day before meals. She has an appt with on 05/20/21. Pt is now out of isolation for COVID. She was first tested positive at [facility] on prior admission. Pt in no distress with O2 on. She denies preference of DME company should she need O2 at dc. Provided her with a local in network list. Pt lives with adult son and two other children. She uses a rollator and denies needs for any therapy at home. DC PLAN: Home, follow for home O2.
[2021-04-08 16:46] LABS: Bedside Glucose 407 mg/dL (70-110)
[2021-04-08 21:16] LABS: Bedside Glucose 404 mg/dL (70-110)
[2021-04-09] VITALS (10 sets, daily range): BP systolic 93–114; BP diastolic 56–77; PULSE 85–106; RESP 18–24; TEMP 36.3–37.2; O2SAT 88–94
--- NOTE | 2021-04-09 05:55 | EKG12_ITS ---
Test Reason : AM EKG Blood Pressure : / mmHG Vent. Rate : 092 BPM Atrial Rate : 092 BPM P-R Int : 154 ms QRS Dur : 074 ms QT Int : 420 ms P-R-T Axes : 057 -19 -30 degrees QTc Int : 519 ms Normal sinus rhythm T wave abnormality, consider anterior ischemia Prolonged QT Abnormal ECG When compared with ECG of 07-APR-2021 11:31, MANUAL COMPARISON REQUIRED, DATA IS UNCONFIRMED Confirmed by CORIE CORONADO, RAMSES ([id number]), assignment desk editor CORINNA BRAVO ([id number]) on 04/19/2021 8:03:19 AM Referred By: BRANDEE Confirmed By:MICHELL FONTENOT MD
[2021-04-09] MEDS: Insulin Lispro 100 UNIT/ML INSULN.PEN SC ×2 (06:22→11:07)
[2021-04-09] MEDS: Gabapentin 600 MG Tablet PO (06:22)
[2021-04-09 06:31] LABS: Bedside Glucose 326 mg/dL (70-110)
[2021-04-09 06:41] LABS: Absolute Lymphocyte Count 0.85 X10^3/uL (0.83-4.51); Absolute Neutrophil Count 2.8 X10^3/uL (2.0-7.7); Basophil# 0.02 X10^3/uL; Basophil% 0.5 % (0-1); Eosinophil# 0.05 X10^3/uL; Eosinophils% 1.2 % (0-5); Hematocrit 29.2 % (37-47); Lymphocyte # 0.85 X10^3/ul (0.83-4.51); Lymphocyte % 20.4 % (19-41); Mean Corp Hgb Conc 30.8 g/dL (32-36); Mean Corpuscular Hgb 27.1 pg (27.0-32.0); Mean Platelet Vol. 10.7 fl (6.2-12.0); Monocyte# 0.41 X10^3/uL; Monocyte% 9.9 % (0-10); NRBC Flagged by Analyzer 0.5 % (0-5); Neutrophil # 2.78 X10^3/uL (2.7-7.7); Neutrophil % 66.8 % (47-70); Platelet Count 301 K/mm3 (150-450); RBC Distribution Width CV 14.5 % (11.6-14.6); RBC Distribution Width SD 45.1 fl (35.1-43.9); Red Blood Count 3.32 M/mm3 (4.2-5.4); White Blood Count 4.2 K/mm3 (4.4-11.0)
[2021-04-09 07:10] LABS: ALB/GLOB Ratio 0.4 RATIO (0.9-2.4); AST(SGOT) 36 U/L (15-37); Alanine Aminotransfer ALT/SGPT 50 U/L (13-56); Alkaline Phosphatase 122 U/L (45-117); Anion Gap 8 (5-15); BUN 26 mg/dL (7-18); BUN/Creat Ratio 38.1 RATIO (10-20); Calcium,Total 8.7 mg/dL (8.5-10.1); Chloride 101 mmol/L (98-107); Creatinine, Serum 0.68 mg/dL (0.55-1.02); EST Glomerular Filtration Rate 97 mL/min (>60); Est Glom Filt Rate - Afr Amer 118 mL/min (>60); Estimated Creatinine Clearance 90.05 ml/min; Globulin 4.6 g/dL (2.2-4.2); Glucose 346 mg/dL (74-106); Potassium 4.3 mmol/L (3.5-5.1); Protein, Total 6.6 g/dL (6.4-8.2); Sodium Level 135 mmol/L (136-145)
--- NOTE | 2021-04-09 08:03 | PCM.DC ---
Discharge Instructions Diet Discharge Diet: Low fat / Low cholesterol, 1800 Calorie Control Diet and 2000 mg Sodium Diet Activity Discharge Activity: Return to Normal Activity Weight Bearing Status: Weight bearing as tolerated Dressing / Incision Call your doctor if you observe: Fever of 101 or Higher, Coldness, Increased Pain, Numbness or Tingling, Change in Color, Inability to urinate, Inability to have a bowel movement, Using more than 1 pad per hour, Shortness of breath, Dizziness, Fainting spells, Swelling in the ankles, Chest pain, Prolonged hiccupping, Increased palpitations (irregular heartbeat), Calf discomfort and Uncontrolled pain Follow Up Care Test Results: Test results from this visit will be discussed in further detail at your follow-up appointment, if applicable. Discharge Plan Admission Admit Date/Time: 04/07/21 16:25 Primary Reason for Your Visit: B/L Pneumonia Attending Provider: Rad Shen Primary Care Provider: Sapna Ray Consulting Providers: Bin Gleason Discharge Orders/Prescriptions Prescriptions: New doxycycline monohydrate 100 mg tablet 100 mg PO BID Qty: 10 RF: 0 amoxicillin-pot clavulanate [Augmentin] 875-125 mg tablet 1 tab PO BID Qty: 10 RF: 0 metoprolol tartrate 25 mg Tablet 25 mg PO BID Qty: 60 RF: 0 Continued gabapentin 600 mg Tablet 600 mg PO TID RF: 0 omeprazole 20 mg Capsule,Delayed Release(Dr/Ec) 20 mg PO DAILY RF: 0 lisinopril 2.5 mg Tablet 2.5 mg PO DAILY RF: 0 ondansetron 4 mg Tablet,Disintegrating 8 mg PO TID PRN (Reason: Nausea) RF: 0 metformin 1,000 mg tablet 1,000 mg PO BID Qty: 60 RF: 1 fenofibrate micronized 67 mg capsule 67 mg PO BID RF: 0 duloxetine 30 mg capsule,delayed release(DR/EC) 30 mg PO DAILY RF: 0 duloxetine 60 mg capsule,delayed release(DR/EC) 60 mg PO DAILY RF: 0 Acidophilus Ex Str (L. sporog) 35 million- 25 million cell tablet 1 tab PO DAILY RF: 0 Changed insulin lispro 100 unit/mL insulin pen 20 unit SUBCUT TIDCM Qty: 15 RF: 0 Lantus Solostar U-100 Insulin 100 unit/mL (3 mL) insulin pen 30 unit subcut DAILY Qty: 15 RF: 0 Referrals / Follow Up: David Santillan DO [STAFF PHYSICIAN] - Within 1 Month (for Follow up B/L Pneumonia and mild hypoxia, discharge on Home O2) Sapna Ray DO [Primary Care Provider] - In 1 Week Disposition Disposition (needs filled in before D/C Order can be placed): Home, Self Care
--- NOTE | 2021-04-09 08:04 | PCM.DC.SUM ---
Providers Date of Admission: 04/07/21 Primary Care Physician: Dr. Sapna Ray DO Consultations 04/08/21 07:57 Consult: Infectious Disease Routine Consulting Provider: Bin Gleason Reason for Consult: COVID infection on 03/12, still symtomatic with SOB, Chest pain EMERGENT Consult: No MD Notified: Yes Date Notified: 04/08/21 Time Notified: 07:57 Method of Notification: Text Reason For Visit: COVID 19 PNEUMONIA WITH SINUS TACHYCARDIA Diagnosis Discharge Diagnosis (1) Pneumonia due to COVID-19 virus: Status: Acute Code(s): U07.1 - COVID-19; J12.82 - Pneumonia due to coronavirus disease 2019 (2) Hypoxia: Status: Acute Code(s): R09.02 - Hypoxemia Medications at Discharge Home Medications gabapentin 600 mg PO TID 03/23/21 lisinopril 2.5 mg PO DAILY 03/23/21 omeprazole 20 mg PO DAILY 03/23/21 ondansetron 8 mg PO TID PRN 03/23/21 metformin 1,000 mg PO BID #60 tab 03/24/21 Acidophilus Ex Str (L. sporog) 1 tab PO DAILY 04/07/21 duloxetine 30 mg PO DAILY 04/07/21 duloxetine 60 mg PO DAILY 04/07/21 fenofibrate micronized 67 mg PO BID 04/07/21 Lantus Solostar U-100 Insulin 30 unit SUBCUT DAILY #15 ml 04/09/21 amoxicillin-pot clavulanate [Augmentin] 1 tab PO BID #10 tab 04/09/21 doxycycline monohydrate 100 mg PO BID #10 tab 04/09/21 insulin lispro 20 unit SUBCUT TIDCM #15 ml 04/09/21 metoprolol tartrate 25 mg PO BID #60 tab 04/09/21 Hospital Course Summary of Care Provided Hospital Course: The patient is 50-year-old female with history of type 2 diabetes mellitus admitted for chest pain recently worse and shortness of breath for 4 days. Patient was last admitted with for COVID-19 infection with DKA. 1. Bilateral pneumonia probably due to secondary bacterial infection with mild hypoxia: Patient was being admitted to [facility] floor. Started on IV ceftriaxone and doxycycline. Urinary antigens negative. Sputum culture shows 3+ GPC on Gram stain. Rapid SARS-CoV-2 antigen negative. Chest CTA shows bilateral pleural effusion multifocal bilateral groundglass opacity suggestive of COVID-19 pneumonia. Patient seen by ID and agreed with ceftriaxone and doxycycline. Dexamethasone was started empirically but discontinued as Covid infection about almost 4 weeks ago and uncontrolled hyperglycemia. Patient is discharged on Augmentin and doxycycline. Patient on 2 L of oxygen through nasal cannula and discharged on home oxygen. 2. Sinus tachycardia with atypical chest pain probably pericarditis/pleuritis: High-sensitivity troponin negative. EKG shows sinus tachycardia [address]-T changes of pericarditis but QTC is prolonged. QTc 522 ms. Repeat EKG shows normal sinus rhythm 92 b/m, QTC 519 ms on April 08 and on April 09 normal sinus rhythm 88 with QTC 539 ms probably related to heart rate. Avoid QTC prolonging medication including Zofran, azithromycin and others. 04/08: 2D echo shows EF 60%. No R WMA. Normal RV size, normal left atrium. PASP 30 mmHg. 3. Diabetes mellitus type 2 with hyperglycemia, uncontrolled complicated with diabetic neuropathy: Glucose is 32 4 mg/dL. During previous hospitalization A1c 13.6%. Accu-Chek insulin is given with Hem-o-beatriz sliding scale along with scheduled 10 units Humalog insulin 3 times daily before meals and 20 units Lantus daily. Labs not consistent with DKA. Anion gap 9. Bicarb 26. Potassium normal. Patient home gabapentin continued. Hold Metformin 04/08: Glucose high and uncontrolled, 390 mg/dL. Lantus and and Humalog insulin increased 04/09: Glucose is high at 404-326. Humalog and Lantus dose increased. Dexamethasone discontinued. 4. Hypovolemic hyponatremia: IV fluid normal saline at 100 mL/h for 1 L. Sodium corrected latest 135. 5. Other comorbidities include hypertension, anxiety and depression and GERD: Patient on omeprazole, lisinopril continued. Not on SSRIs or SNRIs VTE prophylaxis: Lovenox 30 mils subcu twice daily CODE STATUS: Full code Discharge medication reconciliation done. Discharge follow-up instructions completed. Discharge process discussed with the patient and all questions were answered to patient's satisfaction. Advised to follow-up in pulmonary clinic within a month. Need outpatient PFT. Total time spent, exact 35 minutes on discharge meds reconciliation, examination, coordination of care with nurses and ancillary staff, review of imaging and blood test and discussion with the patient on follow-up instructions Physical Exam Narrative Seen and examined Patient heart rate is controlled in the 90s on metoprolol 25 mg p.o. twice daily. Respiratory rate is improved. Pulse ox 94% on 2 L oxygen General: Alert, Oriented x3, Cooperative HEENT: Atraumatic, PERRLA, EOMI, Normocephalic Oral: Oral mucosa dry. No Gingival or Mucosal Lesions/ Ulcerations Neck: Supple, No JVD, Negative Carotid Bruits Lungs: Air entry diminished in bilateral lung bases. Mild to moderate bilateral pleural effusion. No crepitation/rhonchi/wheezing. Mild hypoxia Cardiovascular: Sinus rhythm, Normal S1, Normal S2, No murmurs Abdomen: Bowel Sounds Present, Soft, Non Tender, Non-Distended : No renal angle tenderness. No suprapubic tenderness. Extremities: No edema, Capillary Refill Less than 3 Seconds Skin: No rashes, No breakdown Musculoskeletal: No Tenderness to Palpation of Joints or Extremities. No obvious leg swelling or signs of DVT Neurological: Cranial nerves II-XII grossly intact, DTR 2+/4 and Symmetrical, Neuro grossly intact Psych/Mental Status: Normal Affect, Appropriate. Weight / BMI Weight Weight: 158 lb 15.253 oz Body Mass Index (BMI) 26.4 ABG / Lab / Microbiology Data Result Diagrams: 04/09/21 06:20 04/09/21 06:20 Laboratory: Laboratory Results - last 24 hr 04/08/21 06:10: Diff Path Review Reviewed 04/08/21 11:07: POC Glucose 213 H 04/08/21 16:34: POC Glucose 407 H 04/08/21 20:49: POC Glucose 404 H 04/09/21 06:20: WBC 4.2 L, RBC 3.32 L, Hgb 9.0 L, Hct 29.2 L, MCV 88.0, MCH 27.1, MCHC 30.8 L, RDW Std Deviation 45.1 H, RDW Coeff of Elio 14.5, Plt Count 301, MPV 10.7, Immature Gran % (Auto) 1.200 H, Neut % (Auto) 66.8, Lymph % (Auto) 20.4, [place] % (Auto) 9.9, Eos % (Auto) 1.2, Baso % (Auto) 0.5, Absolute Neuts (auto) 2.8, Absolute Lymphs (auto) 0.85, Nucleated RBC % 0.5 04/09/21 06:20: Sodium 135 L, Potassium 4.3, Chloride 101, Carbon Dioxide 26.0, Anion Gap 8, BUN 26 H, Creatinine 0.68, Estim Creat Clear Calc 90.05, Est GFR (MDRD) Af Amer 118, Est GFR (MDRD) Non-Af 97, BUN/Creatinine Ratio 38.1 H, Glucose 346 H, Calcium 8.7, Total Bilirubin 0.30, AST 36, ALT 50, Alkaline Phosphatase 122 H, Total Protein 6.6, Albumin 2.0 L, Globulin 4.6 H, Albumin/Globulin Ratio 0.4 L 04/09/21 06:22: POC Glucose 326 H Microbiology: Microbiology 04/08/21 10:00 Nasal Secretion SARS-CoV-2 Antigen (Rapid) - Final 04/08/21 02:00 Sputum, Expectorated/Coughed Gram Stain - Final 04/07/21 21:15 Urine, Clean Catch Legionella Antigen - Final 04/07/21 21:15 Urine, Clean Catch Streptococcus pneumoniae Antigen (M - Final 04/07/21 17:35 Mucosa - Nasopharyngeal Influenza Types A,B Direct FA (YASIR) - Final Radiography Diagnostic Testing: Radiology Impression Echocardiogram 04/08/21 05:55 Interpretation Summary Normal LV size. Left ventricular systolic function is normal. The estimated ejection fraction is 60 %. Pulmonary artery systolic pressure is 30 mmHg. Structurally normal valves. Ordering Physician: Rad Shen Referring Physician: Sapna Ray Performed By: Satya Plascencia RCS Meaningful Use Info Meaningful Use Diagnoses (Choose all that apply): None applicable Discharge Plan Admission Admit Date/Time: 04/07/21 16:25 Primary Reason for Your Visit: B/L Pneumonia Attending Provider: Rad Shen Primary Care Provider: Sapna Ray Consulting Providers: Bin Gleason Discharge Orders/Prescriptions Prescriptions: New doxycycline monohydrate 100 mg tablet 100 mg PO BID Qty: 10 RF: 0 amoxicillin-pot clavulanate [Augmentin] 875-125 mg tablet 1 tab PO BID Qty: 10 RF: 0 metoprolol tartrate 25 mg Tablet 25 mg PO BID Qty: 60 RF: 0 Continued gabapentin 600 mg Tablet 600 mg PO TID RF: 0 omeprazole 20 mg Capsule,Delayed Release(Dr/Ec) 20 mg PO DAILY RF: 0 lisinopril 2.5 mg Tablet 2.5 mg PO DAILY RF: 0 ondansetron 4 mg Tablet,Disintegrating 8 mg PO TID PRN (Reason: Nausea) RF: 0 metformin 1,000 mg tablet 1,000 mg PO BID Qty: 60 RF: 1 fenofibrate micronized 67 mg capsule 67 mg PO BID RF: 0 duloxetine 30 mg capsule,delayed release(DR/EC) 30 mg PO DAILY RF: 0 duloxetine 60 mg capsule,delayed release(DR/EC) 60 mg PO DAILY RF: 0 Acidophilus Ex Str (L. sporog) 35 million- 25 million cell tablet 1 tab PO DAILY RF: 0 Changed insulin lispro 100 unit/mL insulin pen 20 unit SUBCUT TIDCM Qty: 15 RF: 0 Lantus Solostar U-100 Insulin 100 unit/mL (3 mL) insulin pen 30 unit subcut DAILY Qty: 15 RF: 0 Referrals / Follow Up: David Santillan DO [STAFF PHYSICIAN] - Within 1 Month (for Follow up B/L Pneumonia and mild hypoxia, discharge on Home O2) Sapna Ray DO [Primary Care Provider] - In 1 Week Disposition Disposition (needs filled in before D/C Order can be placed): Home, Self Care Charges/Coding Visit Charges Inpatient E&M: 19007 Disch Hosp
[2021-04-09] MEDS: Insulin Lispro 100 UNIT/ML INSULN.PEN 30 UNIT SC ×2 (08:59→11:07)
--- NOTE | 2021-04-09 09:30 | CASEMGMT ---
Pt screened with [facility] Palliative Care Screening Tool d/t readmission, pt did not meet criteria.
[2021-04-09] MEDS: DULoxetine Hcl 60 MG Capsule PO (10:58)
[2021-04-09] MEDS: Doxycycline 100 MG CAPSULE PO (10:58)
[2021-04-09] MEDS: dexAMETHasone 2 MG TABLET 6 MG PO (10:58)
[2021-04-09] MEDS: DULoxetine Hcl 30 MG Capsule PO (10:58)
[2021-04-09] MEDS: Metoprolol Tartrate 25 MG Tablet PO (10:59)
[2021-04-09] MEDS: Enoxaparin 30 MG/0.3 ML Syringe SC (11:00)
[2021-04-09] MEDS: Pantoprazole Sodium 20 MG Tablet PO (11:01)
[2021-04-09] MEDS: Lisinopril 2.5 MG Tablet PO (11:01)
[2021-04-09] MEDS: Fenofibrate 48 MG Tablet PO (11:01)
--- NOTE | 2021-04-09 11:25 | CASEMGMT ---
Pt qualifies for home O2, referral fax[place] to [facility] [place]. TC to Haley to make aware that portable tank will be taken from stock and to make aware of referral.
[2021-04-09 11:26] LABS: Bedside Glucose 228 mg/dL (70-110)
[2021-04-09] MEDS: Ceftriaxone 1 GM/50 ML BAG IV (11:44)
== END 2021-04-09 14:00 | disposition home or self-care (01) | DRG 139 ==
LOC: ED 16:10 → MS3 17:10
PROVIDERS: Admitting Provider Internal Medicine; Emergency Provider Emergency Medicine; PCP Family Medicine; Visit Provider Internal Medicine
DX: J15.9 Unspecified bacterial pneumonia (principal); E87.1 Hypo-osmolality and hyponatremia; E11.40 Type 2 diabetes mellitus with diabetic neuropathy, unspecified; I31.9 Disease of pericardium, unspecified; Z79.4 Long term (current) use of insulin; E11.65 Type 2 diabetes mellitus with hyperglycemia; F41.9 Anxiety disorder, unspecified; M79.7 Fibromyalgia; K21.9 Gastro-esophageal reflux disease without esophagitis; E78.00 Pure hypercholesterolemia, unspecified; E86.1 Hypovolemia; Z79.1 Long term (current) use of non-steroidal anti-inflammatories (NSAID); Z87.891 Personal history of nicotine dependence; R09.02 Hypoxemia; F32.A Depression, unspecified; Z86.16 Personal history of COVID-19; Z87.01 Personal history of pneumonia (recurrent); Z79.899 Other long term (current) drug therapy
CPT/HCPCS: 36415; 71045; 71275; 80048; 80053; 82009; 82550; 82962; 83605; 83615; 83735; 83880; 84145; 84484; 85025; 85379; 85384; 85610; 86140; 87040; 87070; 87205; 87426; 87449; 87804; 93005; 93306; 94762; 97162; 99285; J7040; Q9957; Q9967; A4216

== ENCOUNTER 2021-04-19 12:37 | Inpatient (IN) | payer MEDICAID, SELFPAY ==
[2021-04-19] VITALS (12 sets, daily range): BP systolic 95–125; BP diastolic 71–81; PULSE 100–119; RESP 16–28; TEMP 36.4–36.9; O2SAT 92–100; BMI 26.4; BMI 26.3
--- NOTE | 2021-04-19 14:28 | EKG12_ITS ---
Test Reason : PALPATATIONS Blood Pressure : / mmHG Vent. Rate : 100 BPM Atrial Rate : 100 BPM P-R Int : 154 ms QRS Dur : 066 ms QT Int : 360 ms P-R-T Axes : 054 -26 -01 degrees QTc Int : 464 ms Normal sinus rhythm Leftward axis Low voltage QRS (Limb Leads) Septal infarct , age undetermined , cannot be excluded Abnormal ECG Confirmed by ALFONSO CORONADO, RORY ([id number]), fan mail editor CORINNA BRAVO ([id number]) on 04/22/2021 11:11:28 AM Referred By: CECIL/SHAHZAD Confirmed By:RORY HAMILTON MD
[2021-04-19 15:06] LABS: Absolute Lymphocyte Count 1.36 X10^3/uL (0.83-4.51); Absolute Neutrophil Count 4.4 X10^3/uL (2.0-7.7); Basophil# 0.03 X10^3/uL; Basophil% 0.4 % (0-1); Eosinophil# 0.12 X10^3/uL; Eosinophils% 1.8 % (0-5); Hematocrit 36.1 % (37-47); Hemoglobin 11.5 g/dL (12.0-15.0); Lymphocyte # 1.36 X10^3/ul (0.83-4.51); Lymphocyte % 20.4 % (19-41); Mean Corp Hgb Conc 31.9 g/dL (32-36); Mean Corpuscular Hgb 27.4 pg (27.0-32.0); Mean Corpuscular Volume 86.2 fL (81-99); Mean Platelet Vol. 9.4 fl (6.2-12.0); Monocyte# 0.71 X10^3/uL; Monocyte% 10.6 % (0-10); NRBC Flagged by Analyzer 0 % (0-5); Neutrophil % 66.1 % (47-70); Platelet Count 260 K/mm3 (150-450); RBC Distribution Width CV 14.8 % (11.6-14.6); Red Blood Count 4.19 M/mm3 (4.2-5.4); White Blood Count 6.7 K/mm3 (4.4-11.0)
[2021-04-19 15:23] LABS: ALB/GLOB Ratio 0.7 RATIO (0.9-2.4); AST(SGOT) 20 U/L (15-37); Alanine Aminotransfer ALT/SGPT 22 U/L (13-56); Albumin, Serum 2.9 g/dL (3.2-5.0); Alkaline Phosphatase 69 U/L (45-117); Anion Gap 5 (5-15); BUN 15 mg/dL (7-18); BUN/Creat Ratio 24.3 RATIO (10-20); Calcium,Total 9.2 mg/dL (8.5-10.1); Chloride 106 mmol/L (98-107); Creatinine, Serum 0.62 mg/dL (0.55-1.02); EST Glomerular Filtration Rate 109 mL/min (>60); Est Glom Filt Rate - Afr Amer 132 mL/min (>60); Estimated Creatinine Clearance 98.77 ml/min; Globulin 4.1 g/dL (2.2-4.2); Glucose 168 mg/dL (74-106); Potassium 4.6 mmol/L (3.5-5.1); Sodium Level 137 mmol/L (136-145); Troponin-I HS 8 pg/mL (3.0-54.0)
--- NOTE | 2021-04-19 15:29 | RAD_ITS ---
STUDY: X-RAY CHEST REASON FOR EXAM: Female, 50 years old. Dyspnea on exertion, hypoxia, recent bacterial pne TECHNIQUE: PA and lateral views of the chest. COMPARISON: Comparison is made with prior examination dated 04/27/2021. FINDINGS: EKG electrodes are seen. Since prior study, there has been a progression of the bilateral patchy pneumonia worse in the lower lobes and on the left side. There is no demonstrated pleural abnormality. Normal size heart. Normal mediastinum and peg. Normal visualized pulmonary arteries. Normal visualized aortic arch and descending thoracic aorta. Normal visualized thoracic spine. Normal visualized ribs, clavicles, and shoulders. There is no demonstrated abnormality of the visualized soft tissue structures of the upper abdomen. RAD/Chest PA and Lateral IMPRESSION: Progressive diffuse bilateral patchy pulmonary infiltrates worse in the left hemithorax. Electronically Signed: Carlos Pimentel MD at 15:42 EST , Service support ,
[2021-04-19 15:41] LABS: Lactic Acid 1.7 mmol/L (0.4-1.9)
--- NOTE | 2021-04-19 18:55 | EX.ED.DYSGE1 ---
HPI History of Present Illness Chief Complaint: Palpitations Detail of Chief Complaint: Rapid heart rate and hypoxia Informant: patient Onset/Context/Timing Onset: Weeks Context: Sudden Onset Timing: Intermittent Quality: Patient states when her heart rate is fast her O2 sat drops into the mid 70 Location: Cardiopulmonary Current Severity: Gone Maximum Severity: Severe Worsened by: Tachycardia associated with COVID Relieved by: Nothing Associated Symptoms Associated Symptoms: No other symptoms Narrative Narrative: Patient is a 50-year-old woman with history of fibromyalgias COVID-19 infection who presents because of desaturation with rapid heart rate. She was concerned because it went to 77%. She denies orthostatic symptoms. She states she feels slightly short of breath when this occurs. She denies nausea, vomiting diarrhea. She denies black or maroon-colored stool. She denies myalgias or arthralgias. She denies rash. She underwent full work-up by Dr. Ellington. She was placed on metoprolol 25 mg twice daily. Prior similar symptoms: Yes Recent Illness/Hospitalization: Yes PFSH PFS Medical History (Updated 04/23/21 @ 08:[address] Sarah Tripp MD) Abdominal panniculus, symptomatic [place] (acute kidney injury) Anxiety Arthritis Back problem Bursitis Carpal tunnel syndrome Depression Diabetes Diabetes mellitus Diabetes mellitus Excessive body weight loss Fibromyalgia Fibromyalgia Former smoker GERD (gastroesophageal reflux disease) Headache HLD (hyperlipidemia) Hypoxia Intertrigo Lumbar back pain Multiple falls Osteoarthritis Panniculitis Pneumonia due to COVID-19 virus Seasonal allergic conjunctivitis Sleep apnea ULCERS Vision problems Vitamin deficiency Home Medications gabapentin 600 mg PO TID 03/23/21 [History Last Taken 04/06/21] lisinopril 2.5 mg PO DAILY 03/23/21 [History Last Taken 04/06/21] omeprazole 20 mg PO DAILY 03/23/21 [History Last Taken 04/06/21] Acidophilus Ex Str (L. sporog) 1 tab PO DAILY 04/07/21 [History Last Taken Unknown] duloxetine 30 mg PO DAILY 04/07/21 [History Last Taken Unknown] duloxetine 60 mg PO DAILY 04/07/21 [History Last Taken Unknown] fenofibrate micronized 67 mg PO BID 04/07/21 [History Last Taken Unknown] metoprolol tartrate 25 mg PO BID #60 tab 04/09/21 [Rx Last Taken Unknown] aspirin 81 mg PO DAILY 04/19/21 [History Last Taken Unknown] insulin glargine [Lantus Solostar U-100 Insulin] 75 units SUBCUT BID 30 Days #45 ml 04/23/21 [Rx Last Taken Unknown] insulin lispro [Humalog KwikPen Insulin] 20 unit SUBCUT TIDAC 30 Days #18 ml 04/23/21 [Rx Last Taken Unknown] levofloxacin 750 mg PO DAILY 3 Days #3 tab 04/23/21 [Rx Last Taken Unknown] prednisone 40 mg PO DAILY 14 Days #28 tab 04/23/21 [Rx Last Taken Unknown] Allergy/AdvReac Type Severity Reaction Status Date / Time etodolac [From [facility]] Allergy Rash Verified 04/19/21 12:40 Family History Mother Arthritis Hypertension Melanoma Father Arthritis Bleeding disorder Diabetes Heart disease High cholesterol Son Kidney disease H/O psychiatric care Uncle Alcoholism Liver disease Grandmother Arthritis Cancer Lung cancer Sister Epilepsy Melanoma Skin cancer Aunt CVA (cerebral vascular accident) Surgical History H/O knee surgery History of carpal tunnel surgery History of hysterectomy Social History (Updated 04/20/21 @ 04:[address] Madison López MD) household members: none Smoking Status: Former smoker how long ago did patient quit smoking: Quit ~ 30 years prior. alcohol intake: current alcohol intake frequency: holidays/special occasions only substance use type: does not use ROS ROS ED Constitutional Constitutional ED: Denies chills, fever(s), subjective or sweats Eyes Eyes: Denies blurry vision, change in vision or diplopia ENT ENT ED: Denies ear pain, rhinorrhea or sore throat Cardiovascular Cardiovascular: Reports palpitations and racing heartbeat; Denies chest pain, orthopnea or paroxysmal nocturnal dyspnea Respiratory/Chest Respiratory/Chest: Denies cough, dyspnea on exertion, orthopnea or paroxysmal nocturnal dyspnea Gastrointestinal Gastrointestinal: Denies abdominal pain, diarrhea, nausea or vomiting Genitourinary Genitourinary ED: Denies dysuria, hematuria or urinary frequency Musculoskeletal Musculoskeletal: Denies arthralgias, back pain, myalgias or neck pain Integumentary Denies abscess or rash Neurologic Neurologic: Reports weakness; Denies headache(s) or paresthesias Psychiatric Psychiatric: Reports anxiety Endocrine Endocrinology: Denies polydipsia, polyphagia or polyuria Allergic/Immunologic Allergic/Immunologic ED: Denies urticaria EXAM Physical Exam Const Vital Signs: 04/19/21 12:37 04/19/21 13:05 04/19/21 15:22 Temperature 97.6 F L Temperature Source Temporal Pulse Rate 107 H 106 H 100 Respiratory Rate 16 24 H 16 Respiratory Effort Short of Breath Labored Respiratory Pattern Normal Blood Pressure 115/74 123/77 H Blood Pressure Mean 87 92 Pulse Ox 95 96 98 Oxygen Delivery Method Nasal Cannula Room Air Nasal Cannula Oxygen Flow Rate (L/min) 2 2 04/19/21 16:15 04/19/21 17:23 04/19/21 19:23 Temperature Temperature Source Pulse Rate 106 H 103 H 117 H Respiratory Rate 24 H 20 H 28 H Respiratory Effort Respiratory Pattern Blood Pressure 120/81 H 101/79 Blood Pressure Mean 94 86 Pulse Ox 98 95 96 Oxygen Delivery Method Nasal Cannula Nasal Cannula Nasal Cannula Oxygen Flow Rate (L/min) 2 2 2 Positive well nourished and well developed General Appearance ED: well developed and other Patient does not appear well. ; Negative for cyanotic, diaphoretic, NAD or pallor HEENT Reports TM's clear Negative for trauma or tenderness Tympanic Membrane ED: Yes TM's clear Eyes PERRL and EOMs intact bilaterally General Eye ED: Negative for pale conjunctiva or scleral icterus Neck no lymphadenopathy, supple and no JVD Chest Wall inspection of chest normal and palpation of chest normal Resp No normal respiratory effort and No clear to auscultation bilaterally Effort and Inspection: Negative for retractions, pain with movement or other Auscultation: rales diffuse and diminished lung sounds; Negative for rhonchi Cardio regular rhythm, S1 normal heart sound, S2 normal heart sound and no murmurs Rate: tachycardic GI normal to inspection, nondistended, normoactive bowel sounds and non-tender Palpation: soft Back/Spine no CVA tenderness Cervical Spine: Negative for cervical spine tenderness Thoracic Spine / Upper Back: Negative for thoracic spinal tenderness or paraspinal muscle tenderness Extremity normal to inspection Extremity Narrative: There is no asymmetry, swelling, discoloration, leg vein distention, palpable cords or tenderness along the distribution of the deep venous system. General Extremety ED: Negative for edema or tenderness General Extremity: Negative for edema Neuro oriented x3 and CN's II-XII intact bilaterally Sensorium / Orientation: alert and orientation impaired Motor Exam: strength 5/5 throughout Psych mental status grossly normal Skin no rashes or lesions noted and no wounds General Skin Exam: Negative for jaundice or pallor MDM MDM MDM Narrative Medical decision making narrative: Suspect tachycardia is due to COVID. Uncertain why she becomes hypoxic. Will obtain chest x-ray troponin appropriate blood work. Patient has bilateral infiltrates due to COVID-19 infection. The infiltrate may be slightly worse on the left. However when comparing to the CAT scan that was performed on April 07 there does not seem to be any significant interval change. Because I was unable to explain her hypoxia with tachycardia Case was cussed Dr. Collins covering for Dr. Tez Walker. Dr. David Santillan who patient is scheduled to see. He recommended that she walk to see if she desaturates. Patient was only able to walk 50 feet before she became dyspneic hypoxic on oxygen and heart rate of 130. 2 minutes after she sat down she is still tachycardic and dyspneic but not hypoxic. Patient does not look well. Dr. David Santillna recommended CTA to see if there is progression of the infiltrates and rule out pulmonary embolus. Since infiltrates are worse on chest x-ray will treat with antibiotics. Blood cultures were not obtained since her lactate is normal. Dr. López was made aware of patient will admit to PCU Lab Data Attestation: I reviewed the patient's lab results. Labs: Laboratory Results - last 24 hr 04/19/21 04/19/21 04/19/21 15:00 15:00 15:00 WBC 6.7 RBC 4.19 L Hgb 11.5 L Hct 36.1 L MCV 86.2 MCH 27.4 MCHC 31.9 L RDW Std Deviation 46.0 H RDW Coeff of Elio 14.8 H Plt Count 260 MPV 9.4 Immature Gran % (Auto) 0.700 Neut % (Auto) 66.1 Lymph % (Auto) 20.4 [place] % (Auto) 10.6 H Eos % (Auto) 1.8 Baso % (Auto) 0.4 Absolute Neuts (auto) 4.4 Absolute Lymphs (auto) 1.36 Nucleated RBC % 0 Sodium 137 Potassium 4.6 Chloride 106 Carbon Dioxide 26.0 Anion Gap 5 BUN 15 Creatinine 0.62 Estim Creat Clear Calc 98.77 Est GFR (MDRD) Af Amer 132 Est GFR (MDRD) Non-Af 109 BUN/Creatinine Ratio 24.3 H Glucose 168 H Lactic Acid 1.7 Calcium 9.2 Total Bilirubin 0.30 AST 20 ALT 22 Alkaline Phosphatase 69 Troponin I High Sens 8 B-Natriuretic Peptide Total Protein 7.0 Albumin 2.9 L Globulin 4.1 Albumin/Globulin Ratio 0.7 L 04/19/21 15:00 WBC RBC Hgb Hct MCV MCH MCHC RDW Std Deviation RDW Coeff of Elio Plt Count MPV Immature Gran % (Auto) Neut % (Auto) Lymph % (Auto) [place] % (Auto) Eos % (Auto) Baso % (Auto) Absolute Neuts (auto) Absolute Lymphs (auto) Nucleated RBC % Sodium Potassium Chloride Carbon Dioxide Anion Gap BUN Creatinine Estim Creat Clear Calc Est GFR (MDRD) Af Amer Est GFR (MDRD) Non-Af BUN/Creatinine Ratio Glucose Lactic Acid Calcium Total Bilirubin AST ALT Alkaline Phosphatase Troponin I High Sens B-Natriuretic Peptide 107.0 H Total Protein Albumin Globulin Albumin/Globulin Ratio Radiography Diagnostic Testing: Clinical Impression(s) from Imaging Studies Chest X-Ray 04/19/21 15:29 IMPRESSION: Progressive diffuse bilateral patchy pulmonary infiltrates worse in the left hemithorax. Electronically Signed: Carlos Pimentel MD at 15:42 EST , Service support , Chest CTA 04/19/21 19:34 IMPRESSION: 1. No pulmonary embolism. 2. Extensive Covid pneumonia. 3. Small effusions. Electronically Signed: Roderick Quintero MD at 20:31 EST Tel , Service support , Discharge Plan Dx/Rx/DC Orders Clinical Impression: Bilateral pneumonia, Hypoxia, Sinus tachycardia Disposition Disposition: [facility]
--- NOTE | 2021-04-19 19:34 | CT_ITS ---
STUDY: CTA CHEST REASON FOR EXAM: Female, 50 years old. Recent Covid palpitations tachycardia and hypoxia RADIATION DOSAGE (If Supplied By Facility): CTDIvol = ( 11.705 ) mGy, DLP = ( 435.76 ) mGycm TECHNIQUE: The examination was performed with the intravenous administration of IV 100mL Isovue-370. Post-processing of the angiographic images was performed, with multiplanar reformation and 3D reconstruction. Individualized dose optimization techniques were used for this CT. COMPARISON: 07 April 2021 FINDINGS: There is no acute or chronic pulmonary embolism. Aorta is of normal caliber. [place] arteries are at least moderately diseased. Cardiac chambers are normal in size and shape. There is extensive multifocal Covid pneumonia. There are small bilateral pleural effusions and basal atelectasis. Osseous structures are intact. Abdominal structures are unremarkable. CT/CTA Chest W/WO Contrast IMPRESSION: 1. No pulmonary embolism. 2. Extensive Covid pneumonia. 3. Small effusions. Electronically Signed: Roderick Quintero MD at 20:31 EST Tel , Service support ,
--- NOTE | 2021-04-19 20:28 | PCM.HP.STD ---
HPI - General General Date of Admission: 04/19/21 Date of Service: 04/19/21 Chief Complaint: Worsening exertional hypoxia, tachycardia. HPI Narrative The patient is a 50 y/o F w/ PMHx: Chronic anemia, Fibromyalgia, Former Tobacco use, Depression and Anxiety, ADELINE, Diabetes mellitus type II, Anxiety and Depression, HLD, GERD who presents to the [facility] ED on 04/20/21 with history of ongoing unabating cough, fatigue, malaise in addition to episodes of exertional severe tachycardia and hypoxia with oxygen dropping into the the 70s despite chronic supplementation since COVID illness prompting ED reevaluation. Patient was initially admitted 03/19/2021 through 03/24/2021 with DKA at that time with COVID concurrently noted and recently readmitted 04/07/2021 through 04/09/2021 treated at that time with doxycycline and Rocephin transition to discharge to doxycycline and Augmentin which was completed prior to admission. Patient of note was unvaccinated against COVID. From review of records from prior admission urine antigens were negative and respiratory culture was unremarkable with normal respiratory silvia. Work-up in the ED included T97.6, heart rate 107 with rate up to 119, BP 115/74, respiratory rate 16, 95% on 2 L nasal cannula, CBC with WBC 6.7, hemoglobin 11.5, platelet 260 without marked shift, CMP with glucose 168 otherwise not marked appearing, high-sensitivity cardiac troponin 8, BNP 107, chest x-ray with progressive diffuse bilateral patchy pulmonary infiltrates worse on the left hemithorax, repeat CTPA with no pulmonary embolism with extensive appearance of COVID-pneumonia with small effusions, EKG with sinus tachycardia with no acute evidence of ischemia. ED physician did discuss case with both cardiology and pulmonary medicine and given worsened CTPA appearance administered vancomycin and Zosyn therapy. [facility] Medical History (Updated 04/20/21 @ 04:[address] Madison López MD) Anxiety Arthritis Back problem Bursitis Carpal tunnel syndrome Depression Diabetes Diabetes mellitus Fibromyalgia GERD (gastroesophageal reflux disease) Headache High cholesterol History of diabetes mellitus Hypoxia Osteoarthritis Pneumonia due to COVID-19 virus Seasonal allergic conjunctivitis Sleep apnea ULCERS Vision problems Vitamin deficiency Home Medications gabapentin 600 mg PO TID 03/23/21 [History Last Taken 04/06/21] lisinopril 2.5 mg PO DAILY 03/23/21 [History Last Taken 04/06/21] omeprazole 20 mg PO DAILY 03/23/21 [History Last Taken 04/06/21] ondansetron 8 mg PO TID PRN 03/23/21 [History Last Taken 04/06/21] metformin 1,000 mg PO BID #60 tab 03/24/21 [Rx Last Taken 04/06/21] Acidophilus Ex Str (L. sporog) 1 tab PO DAILY 04/07/21 [History Last Taken Unknown] duloxetine 30 mg PO DAILY 04/07/21 [History Last Taken Unknown] duloxetine 60 mg PO DAILY 04/07/21 [History Last Taken Unknown] fenofibrate micronized 67 mg PO BID 04/07/21 [History Last Taken Unknown] doxycycline monohydrate 100 mg PO BID #10 tab 04/09/21 [Rx Last Taken Unknown] metoprolol tartrate 25 mg PO BID #60 tab 04/09/21 [Rx Last Taken Unknown] Lantus Solostar U-100 Insulin 20 unit SUBCUT DAILY 04/19/21 [History Last Taken Unknown] aspirin 81 mg PO DAILY 04/19/21 [History Last Taken Unknown] diphenhydramine HCl [Benadryl] 50 mg PO BID PRN 04/19/21 [History Last Taken Unknown] insulin lispro 0 unit SUBCUT TIDCM 04/19/21 [History Last Taken Unknown] Allergy/AdvReac Type Severity Reaction Status Date / Time etodolac [From [facility]] Allergy Rash Verified 04/19/21 12:40 Family History Mother Arthritis Hypertension Melanoma Father Arthritis Bleeding disorder Diabetes Heart disease High cholesterol Son Kidney disease H/O psychiatric care Uncle Alcoholism Liver disease Grandmother Arthritis Cancer Lung cancer Sister Epilepsy Melanoma Skin cancer Aunt CVA (cerebral vascular accident) Surgical History H/O knee surgery History of carpal tunnel surgery History of hysterectomy Social History (Updated 04/20/21 @ 04:[address] Madison López MD) household members: none Smoking Status: Former smoker how long ago did patient quit smoking: Quit ~ 30 years prior. alcohol intake: current alcohol intake frequency: holidays/special occasions only substance use type: does not use ROS ROS Narrative Admission Review of Systems: CONSTITUTIONAL: No weight loss, fever, chills, + weakness or fatigue. HEENT: + Headache. Eyes: No visual loss, blurred vision, double vision or yellow sclerae. Ears, Nose, Throat: No hearing loss, sneezing. SKIN: No rash or itching, lesions, wounds. CARDIOVASCULAR: + Chest pressure, palpitations, pleuritic discomfort, No edema, orthopnea, syncopal events. RESPIRATORY: + shortness of breath, cough, No marked sputum, wheezing, hemoptysis. GASTROINTESTINAL: No nausea, vomiting, diarrhea, abdominal pain, melena, BRBPR. GENITOURINARY: No dysuria, frequency, urgency or retention. NEUROLOGICAL: + Dizziness/LH with exertion, No headaches, syncope, paralysis, ataxia, numbness or tingling in the extremities, focal weakness, change in bowel or bladder control, seizure. MUSCULOSKELETAL: + muscle, back pain, joint pain or stiffness. HEMATOLOGIC: No anemia, bleeding or bruising. LYMPHATICS: No enlarged nodes. No history of splenectomy. PSYCHIATRIC: + history of depression or anxiety. ENDOCRINOLOGIC: No reports of sweating, cold or heat intolerance. No polyuria or polydipsia. ALLERGIES: No history of asthma, hives, eczema or rhinitis. Vital Signs Vital Signs Vital Signs: 04/19/21 12:37 04/19/21 13:05 04/19/21 15:22 Temperature 97.6 F L Temperature Source Temporal Pulse Rate 107 H 106 H 100 Respiratory Rate 16 24 H 16 Respiratory Effort Short of Breath Labored Respiratory Pattern Normal Blood Pressure 115/74 123/77 H Blood Pressure Mean 87 92 Pulse Ox 95 96 98 Oxygen Delivery Method Nasal Cannula Room Air Nasal Cannula Oxygen Flow Rate (L/min) 2 2 04/19/21 16:15 04/19/21 17:23 04/19/21 19:23 Temperature Temperature Source Pulse Rate 106 H 103 H 117 H Respiratory Rate 24 H 20 H 28 H Respiratory Effort Respiratory Pattern Blood Pressure 120/81 H 101/79 Blood Pressure Mean 94 86 Pulse Ox 98 95 96 Oxygen Delivery Method Nasal Cannula Nasal Cannula Nasal Cannula Oxygen Flow Rate (L/min) 2 2 2 04/19/21 19:52 Temperature 97.8 F Temperature Source Temporal Pulse Rate 111 H Respiratory Rate 19 H Respiratory Effort Respiratory Pattern Blood Pressure 105/78 Blood Pressure Mean 87 Pulse Ox 96 Oxygen Delivery Method Nasal Cannula Oxygen Flow Rate (L/min) 2 Weight Weight: 158 lb 15.253 oz Body Mass Index (BMI) 26.4 Physical Exam Narrative Physical Examination: General: Awake, alert, oriented x 3 and cooperative, seated upright in the ED bed, fatigued, mildly tachycardic, mildly increased respiratory rate. Skin: Normal color, normal turgor, no icterus, no cyanosis. HEENT: AT/NC, EOMI, PERRLA, moderately dry MM, no carotid bruits or JVD noted. Lungs: Diffusely diminished, greater bases, increased respiratory rate, no rales, ronchi or wheezing. Heart: Tachycardic with regular rhythm; no gallop, rub audible. Abdomen: Soft, nontender to palpation, nondistended, normal bowel sounds, no obvious HSM. Extremities: No cyanosis, clubbing, or edema. Neurological: Patient awake, alert, oriented as noted, cognitive function intact; pupils equally reactive to light and accommodation, cranial nerves II-XII grossly normal, moving all 4 extremities, no focal deficits, strength moderately globally decreased secondary to acute presentation. Psychiatric: Affect appears fatigued, no acute evidence of depressive or anxiety feelings. Results Lab / Micro Data Result Diagrams: 04/20/21 03:36 04/19/21 15:00 Labs: Laboratory Results - last 24 hr 04/19/21 15:00: WBC 6.7, RBC 4.19 L, Hgb 11.5 L, Hct 36.1 L, MCV 86.2, MCH 27.4, MCHC 31.9 L, RDW Std Deviation 46.0 H, RDW Coeff of Elio 14.8 H, Plt Count 260, MPV 9.4, Immature Gran % (Auto) 0.700, Neut % (Auto) 66.1, Lymph % (Auto) 20.4, [place] % (Auto) 10.6 H, Eos % (Auto) 1.8, Baso % (Auto) 0.4, Absolute Neuts (auto) 4.4, Absolute Lymphs (auto) 1.36, Nucleated RBC % 0 04/19/21 15:00: Sodium 137, Potassium 4.6, Chloride 106, Carbon Dioxide 26.0, Anion Gap 5, BUN 15, Creatinine 0.62, Estim Creat Clear Calc 98.77, Est GFR (MDRD) Af Amer 132, Est GFR (MDRD) Non-Af 109, BUN/Creatinine Ratio 24.3 H, Glucose 168 H, Calcium 9.2, Total Bilirubin 0.30, AST 20, ALT 22, Alkaline Phosphatase 69, Troponin I High Sens 8, Total Protein 7.0, Albumin 2.9 L, Globulin 4.1, Albumin/Globulin Ratio 0.7 L 04/19/21 15:00: Lactic Acid 1.7 04/19/21 15:00: B-Natriuretic Peptide 107.0 H Radiology Impression Chest X-Ray 04/19/21 15:29 IMPRESSION: Progressive diffuse bilateral patchy pulmonary infiltrates worse in the left hemithorax. Electronically Signed: Carlos Pimentel MD at 15:42 EST , Service support , Assessment & Plan Assessment/Plan (1) Bilateral pneumonia: QUALIFIERS: Pneumonia type: due to unspecified organism Lung location: unspecified part of lung Qualified Code(s): J18.9 - Pneumonia, unspecified organism (2) Sinus tachycardia: (3) Hypoxia: PLAN: The patient is a 50 y/o F w/ PMHx: Chronic anemia, Fibromyalgia, Former Tobacco use, Depression and Anxiety, ADELINE, Diabetes mellitus type II, Anxiety and Depression, HLD, GERD who presents to the [facility] ED on 04/20/21 with history of ongoing unabating cough, fatigue, malaise in addition to episodes of exertional severe tachycardia and hypoxia with oxygen dropping into the the 70s despite chronic supplementation since COVID illness prompting ED reevaluation. #1. Worsening Bilateral Pneumonia with associated episodes of Acute on Chronic Hypoxia (following recent COVID diagnosis) secondary to Acute Viral Syndrome, COVID-19 and Possible Superimposed bacterial PNA, possible GN/GP: Will admit to the PCU, patient does not require any quarantine precautions given timeline since illness, will maintain on oxygen with wean as tolerated to room air, PRN albuterol, HOB, IS parameters w/ pending sputum cultures, respiratory viral panel and urine antigens, will obtain D-dimer, procalcitonin, continue supportive care, continue broad-spectrum antibiotic therapy with IV Zosyn and vancomycin with MRSA screen with de-escalation if negative MRSA screen, continue pulmonary consultation given worsening imaging, closely monitor with exertion as patient reports desaturating into the 70s with exertion. May need to consider repeat ID evaluation. From prior admission respiratory culture was unremarkable and she was treated with aggressive abx regimen upon d/c. #2. Exertional chest pain and tachycardia: Likely associated with #1, significant tachycardia with chest discomfort described as a pressure as well as hypoxia, will maintain on telemetry monitoring, closely monitor when she exerts herself, continue to cycle cardiac enzymes, magnesium level requested, TSH and free T4 requested and pending, repeat limited echocardiogram with bubble study requested per cardiology recommendation, continue cardiology consultation initiated per ED physician. Continued on metoprolol 25 mg twice daily. #3. Diabetes mellitus type II with hyperglycemia, poorly controlled with neuropathy: Hold oral home regimen, continue home insulin regimen, last hemoglobin A1c noted 03/22/2020 113.9%, ADA diet, accu checks w/ ISS, continue home gabapentin regimen. #4. Chronic normocytic anemia: Admission hemoglobin 11.5, baseline appears similar 01-14, continue to trend. #5. Hyperlipidemia: We will continue patient home fenofibrate regimen, not on statin therapy. #6. Anxiety and depression: We will continue patient home duloxetine regimen. #7. GERD: We will continue patient home PPI. #8. ADELINE: Not using CPAP or BiPAP nightly. #9. DVT prophylaxis: SCDs, Lovenox. #10. CODE STATUS: Full code. Charges/Coding Visit Charges Inpatient E&M: 54366 Init Hosp L3
--- NOTE | 2021-04-19 20:48 | ECHOL_ITS ---
Reason For Study: ARRHYTHMIA Procedure This was a limited 2D transthoracic echocardiogram. RECENT NORMAL ECHO ON 04/08/21- BUBBLE STUDY ONLY- to r/o shunt. Limited views were obtained. Exam performed portable in patient room. Atria Bubble contrast study negative for right to left interatrial shunt. Medication Performed a rapid injection of agitated mix of 9 cc saline and 1cc air to assess for atrial septal defect. ECHO/Echo, Limited Study Interpretation Summary Bubble contrast study negative for right to left interatrial shunt. Ordering Physician: Madison López Referring Physician: WILLY MURRAY Performed By: Scarlet Buckley, NANCY, RVT
--- NOTE | 2021-04-19 20:50 | PCS.PANDOC ---
PANDEMIC DOCUMENTATION INITIATED: Date: 11/19/2020 Time: 190
[2021-04-19] MEDS: Enoxaparin 30 MG/0.3 ML Syringe SC (21:32)
[2021-04-19] MEDS: Gabapentin 600 MG Tablet PO (21:32)
[2021-04-19] MEDS: Fenofibrate 48 MG Tablet PO (21:32)
[2021-04-19] MEDS: Insulin Lispro 100 UNIT/ML INSULN.PEN SC (21:33)
[2021-04-19] MEDS: 0.9% Normal Saline 1,000 ML 100 ML IV (21:35)
[2021-04-19] MEDS: Metoprolol Tartrate 25 MG Tablet PO (21:35)
[2021-04-19 21:44] LABS: Troponin-I HS 8 pg/mL (3.0-54.0)
--- NOTE | 2021-04-19 22:55 | PCM.RX.CS ---
Consult Pharmacy has been consulted to manage selected antiobiotic: Vancomycin Type of Consult: New start Labs: Sodium 137 mmol/L (136-145) 04/19/21 15:00 Potassium 4.6 mmol/L (3.5-5.1) 04/19/21 15:00 Chloride 106 mmol/L (98-107) 04/19/21 15:00 Carbon Dioxide 26.0 mmol/L (21.0-32.0) 04/19/21 15:00 Anion Gap 5 (5-15) 04/19/21 15:00 BUN 15 mg/dL (7-18) 04/19/21 15:00 Creatinine 0.62 mg/dL (0.55-1.02) 04/19/21 15:00 Est GFR (MDRD) Af Amer 132 mL/min (>60) 04/19/21 15:00 Est GFR (MDRD) Non-Af 109 mL/min (>60) 04/19/21 15:00 BUN/Creatinine Ratio 24.3 RATIO (10-20) H 04/19/21 15:00 Glucose 168 mg/dL (74-106) H 04/19/21 15:00 Goal Trough: 15-20 mcg/mL Pharmacy Plan for Drug Dosing: Pharmacy Service will continue to monitor and adjust dosing as required. Medications Vancomycin HCl 1,500 mg/ (Sodium Chloride) 530 mls @ 250 mls/hr IV Q12H YURY Discontinued Medications Vancomycin HCl 1,750 mg/ (Sodium Chloride) 535 mls @ 250 mls/hr IV X1 ONE Stop: 04/19/21 22:38 Last Admin: 04/19/21 21:34 Dose: 250 mls/hr Documented by: Follow-Up Labs: Trough Vancomycin Labs to be done on [date and time ordered]: 04/21 @ 2338
[2021-04-19 23:16] LABS: Bedside Glucose 340 mg/dL (70-110)
[2021-04-19 23:54] LABS: Troponin-I HS 9 pg/mL (3.0-54.0)
[2021-04-20] VITALS (15 sets, daily range): BP systolic 108–126; BP diastolic 47–81; PULSE 93–117; RESP 16–18; TEMP 36.2–37; O2SAT 93–98
[2021-04-20 02:26] LABS: M R Staph aureus DNA By PCR Negative (Negative); Probe Check PASS; Specimen Processing Control PASS
[2021-04-20 03:49] LABS: Absolute Neutrophil Count 4.6 X10^3/uL (2.0-7.7); Basophil# 0.03 X10^3/uL; Basophil% 0.4 % (0-1); Eosinophil# 0.16 X10^3/uL; Eosinophils% 2.3 % (0-5); Hematocrit 33.7 % (37-47); Hemoglobin 10.8 g/dL (12.0-15.0); Lymphocyte % 18.7 % (19-41); Mean Corpuscular Hgb 27.9 pg (27.0-32.0); Mean Corpuscular Volume 87.1 fL (81-99); Mean Platelet Vol. 9.2 fl (6.2-12.0); Monocyte# 0.77 X10^3/uL; Monocyte% 11.1 % (0-10); NRBC Flagged by Analyzer 0 % (0-5); Neutrophil # 4.64 X10^3/uL (2.7-7.7); Neutrophil % 66.8 % (47-70); Platelet Count 236 K/mm3 (150-450); RBC Distribution Width SD 46.8 fl (35.1-43.9); Red Blood Count 3.87 M/mm3 (4.2-5.4)
[2021-04-20 04:12] LABS: Troponin-I HS 10 pg/mL (3.0-54.0)
[2021-04-20 04:26] LABS: Magnesium 1.6 mg/dL (1.6-2.6)
[2021-04-20 04:27] LABS: ALB/GLOB Ratio 0.7 RATIO (0.9-2.4); AST(SGOT) 13 U/L (15-37); Alanine Aminotransfer ALT/SGPT 21 U/L (13-56); Albumin, Serum 2.6 g/dL (3.2-5.0); Alkaline Phosphatase 61 U/L (45-117); Anion Gap 7 (5-15); BUN 15 mg/dL (7-18); BUN/Creat Ratio 26.6 RATIO (10-20); Calcium,Total 8.4 mg/dL (8.5-10.1); Chloride 104 mmol/L (98-107); Creatinine, Serum 0.56 mg/dL (0.55-1.02); EST Glomerular Filtration Rate 121 mL/min (>60); Est Glom Filt Rate - Afr Amer 146 mL/min (>60); Estimated Creatinine Clearance 109.35 ml/min; Globulin 3.6 g/dL (2.2-4.2); Glucose 215 mg/dL (74-106); Potassium 4.2 mmol/L (3.5-5.1); Protein, Total 6.2 g/dL (6.4-8.2); Sodium Level 137 mmol/L (136-145); T4 Free Direct 1.21 ng/dL (0.76-1.46); Thyroid Stim Hormone (TSH) 0.58 uIU/mL (0.358-3.74)
[2021-04-20] MEDS: Piperacil/Tazobactam 3.375 GM/50 ML ML IV ×3 (05:14→22:52)
[2021-04-20] MEDS: Gabapentin 600 MG Tablet PO ×3 (05:14→22:50)
[2021-04-20] MEDS: Insulin Lispro 100 UNIT/ML INSULN.PEN SC ×4 (06:35→22:51)
[2021-04-20 06:41] LABS: Bedside Glucose 153 mg/dL (70-110)
[2021-04-20] MEDS: Aspirin E.C. 81 MG Tablet PO (07:55)
--- NOTE | 2021-04-20 08:48 | EX.PCM.CONCC ---
Assessment & Plan Assessment/Plan (1) Hypoxia: PLAN: RECOMMENDATIONS: 1. Continue empiric antimicrobials. 2. Obtain and send sputum for culture. 3. Start IV steroids. 4. Wean supplemental oxygen to maintain saturations at or above 90%. 5. Send JAIRO with reflex, rheumatoid factor and CCP antibodies. 6. Echo with bubble study today. IMPRESSIONS: 1. Shortness of breath with associated hypoxemia The patient was initially diagnosed with COVID-19 pneumonia in mid March. However, her respiratory symptoms were mild and she was never hypoxemic. She did not require any advanced therapy at that time. The patient then returned to the hospital and was admitted in April with continued dyspnea in the setting of radiographic evidence of bilateral airspace opacities. She was treated with antimicrobials following evaluation by infectious diseases. Despite this, the patient remains short of breath. No pulmonary emboli has ever been identified on previous chest imaging. Her CTA did demonstrate continued evidence of bilateral airspace opacities. In light of the patient's continued symptoms, it is reasonable to continue empiric antimicrobials. While a bacterial infection is a possibility, the infiltrates could also represent an inflammatory pneumonia which can be seen in organizing pneumonia. The patient has had positive CCP antibodies in the past. However, she denies ever having been diagnosed with any autoimmune disorders. Accordingly, I am going to place the patient on steroids. Plan for limited echo today with bubble study to evaluate for possible shunt. 2. Diabetes mellitus/anemia/depression/anxiety/GERD Complicates care, management, recovery and prognosis. Continue home medications as indicated. This note was generated with [employer] dictation software. It may contain incorrect words, spelling, and punctuation that were not noted in checking the note before signing. HPI Consult Data Date of Consult: 04/20/21 HPI Narrative Reason for Consultation: Shortness of breath with associated hypoxemia HPI Narrative: The patient is a 50-year-old female, with a history as outlined below, who presented to the emergency department on April 19 with cough, shortness of breath and exertional tachycardia with associated hypoxemia. The patient was initially admitted to the hospital for 5 days in March 2021 with COVID-19 pneumonia. Her hospital course was complicated by diabetic ketoacidosis secondary to outpatient noncompliance. During that time, the patient was never noted to be hypoxemic and therefore did not require any advanced therapy for COVID-19. The patient was then readmitted to the hospital on April 07 through April 09 with worsening dyspnea. The patient was treated with antimicrobials at that time. Sputum culture dated April 08 demonstrated normal mixed respiratory silvia. On presentation to the emergency department, the patient was noted to be afebrile and hemodynamically stable. She was initially maintaining appropriate oxygen saturations on 2 L/min via nasal cannula. Initial laboratory evaluation demonstrated no evidence of a leukocytosis. Chemistry profile was unremarkable. Lactate was within normal limits. BNP was noted to be 107. Procalcitonin was noted to be 0.10. Repeat CTA chest demonstrated bilateral multifocal airspace opacities with small bilateral pleural effusions. MRSA screen was negative. Surface echocardiogram dated April 08 demonstrated normal LV size and function with an ejection fraction of 60% and a pulmonary artery systolic pressure estimated to be 30 mmHg. Of note, the patient does have evidence of CCP antibodies dating back to 2019. The patient was placed on antimicrobials and admitted to the progressive care unit for further management. [facility] Medical History (Updated 04/20/21 @ 04:[address] Madison López MD) Anxiety Arthritis Back problem Bursitis Carpal tunnel syndrome Depression Diabetes Diabetes mellitus Fibromyalgia GERD (gastroesophageal reflux disease) Headache High cholesterol History of diabetes mellitus Hypoxia Osteoarthritis Pneumonia due to COVID-19 virus Seasonal allergic conjunctivitis Sleep apnea ULCERS Vision problems Vitamin deficiency Home Medications gabapentin 600 mg PO TID 03/23/21 [History Last Taken 04/06/21] lisinopril 2.5 mg PO DAILY 03/23/21 [History Last Taken 04/06/21] omeprazole 20 mg PO DAILY 03/23/21 [History Last Taken 04/06/21] ondansetron 8 mg PO TID PRN 03/23/21 [History Last Taken 04/06/21] metformin 1,000 mg PO BID #60 tab 03/24/21 [Rx Last Taken 04/06/21] Acidophilus Ex Str (L. sporog) 1 tab PO DAILY 04/07/21 [History Last Taken Unknown] duloxetine 30 mg PO DAILY 04/07/21 [History Last Taken Unknown] duloxetine 60 mg PO DAILY 04/07/21 [History Last Taken Unknown] fenofibrate micronized 67 mg PO BID 04/07/21 [History Last Taken Unknown] doxycycline monohydrate 100 mg PO BID #10 tab 04/09/21 [Rx Last Taken Unknown] metoprolol tartrate 25 mg PO BID #60 tab 04/09/21 [Rx Last Taken Unknown] Lantus Solostar U-100 Insulin 20 unit SUBCUT DAILY 04/19/21 [History Last Taken Unknown] aspirin 81 mg PO DAILY 04/19/21 [History Last Taken Unknown] diphenhydramine HCl [Benadryl] 50 mg PO BID PRN 04/19/21 [History Last Taken Unknown] insulin lispro 0 unit SUBCUT TIDCM 04/19/21 [History Last Taken Unknown] Allergy/AdvReac Type Severity Reaction Status Date / Time etodolac [From Lodine] Allergy Rash Verified 04/19/21 12:40 Family History Mother Arthritis Hypertension Melanoma Father Arthritis Bleeding disorder Diabetes Heart disease High cholesterol Son Kidney disease H/O psychiatric care Uncle Alcoholism Liver disease Grandmother Arthritis Cancer Lung cancer Sister Epilepsy Melanoma Skin cancer Aunt CVA (cerebral vascular accident) Surgical History H/O knee surgery History of carpal tunnel surgery History of hysterectomy Social History (Updated 04/20/21 @ 04:[address] Madison López MD) household members: none Smoking Status: Former smoker how long ago did patient quit smoking: Quit ~ 30 years prior. alcohol intake: current alcohol intake frequency: holidays/special occasions only substance use type: does not use ROS Constitutional Constitutional: Reports fatigue and malaise Eyes Eyes: Denies blurry vision or change in vision ENT HEENT: Denies dizziness, headache(s) or loss taste/smell Cardiovascular Cardiovascular: Reports dyspnea and irregular heart rhythm Respiratory/Chest Respiratory/Chest: Reports dyspnea Gastrointestinal Gastrointestinal: Denies abdominal pain, diarrhea, nausea or vomiting Genitourinary Genitourinary: Denies difficulty urinating Musculoskeletal Musculoskeletal: Denies arthralgias, back pain or joint pain Integumentary Integumentary: Denies lesions, rash or skin ulcer Neurologic Neurologic: Denies abnormal gait or abnormal speech Psychiatric Psychiatric: Denies anxiety or depression Endocrine Endocrinology: Reports fatigue Hematologic/Lymphatic Hematologic/Lymphatic: Denies easy bleeding or easy bruising Physical Exam Const alert, oriented x3 and no apparent distress General Appearance: cooperative HEENT normocephalic, head/scalp atraumatic and moist oral mucous membranes Eyes PERRL, EOMs intact bilaterally and conjunctivae normal Neck supple General: trachea midline Chest inspection of chest normal Resp normal respiratory effort Effort and Inspection: able to speak in complete sentences Auscultation: rales; Negative for rhonchi or wheezes Cardio S1 normal heart sound and S2 normal heart sound Rate: tachycardic GI normal to inspection, nondistended, normoactive bowel sounds Extremity no clubbing, cyanosis or edema Skin no rashes or lesions noted Neuro CN's II-XII intact bilaterally, moves all extremities and no focal motor deficits Psych cooperative and affect normal Lab / Micro Data Result Diagrams: 04/20/21 03:36 04/20/21 03:36 Labs: Laboratory Results - last 24 hr 04/19/21 15:00: WBC 6.7, RBC 4.19 L, Hgb 11.5 L, Hct 36.1 L, MCV 86.2, MCH 27.4, MCHC 31.9 L, RDW Std Deviation 46.0 H, RDW Coeff of Elio 14.8 H, Plt Count 260, MPV 9.4, Immature Gran % (Auto) 0.700, Neut % (Auto) 66.1, Lymph % (Auto) 20.4, [place] % (Auto) 10.6 H, Eos % (Auto) 1.8, Baso % (Auto) 0.4, Absolute Neuts (auto) 4.4, Absolute Lymphs (auto) 1.36, Nucleated RBC % 0 04/19/21 15:00: Sodium 137, Potassium 4.6, Chloride 106, Carbon Dioxide 26.0, Anion Gap 5, BUN 15, Creatinine 0.62, Estim Creat Clear Calc 98.77, Est GFR (MDRD) Af Amer 132, Est GFR (MDRD) Non-Af 109, BUN/Creatinine Ratio 24.3 H, Glucose 168 H, Calcium 9.2, Total Bilirubin 0.30, AST 20, ALT 22, Alkaline Phosphatase 69, Troponin I High Sens 8, Total Protein 7.0, Albumin 2.9 L, Globulin 4.1, Albumin/Globulin Ratio 0.7 L 04/19/21 15:00: Lactic Acid 1.7 04/19/21 15:00: B-Natriuretic Peptide 107.0 H 04/19/21 21:10: POC Glucose 340 H 04/19/21 21:18: Procalcitonin 0.10 H 04/19/21 21:18: Troponin I High Sens 8 04/19/21 22:00: MRSA (PCR) Negative 04/19/21 23:19: Troponin I High Sens 9 04/20/21 03:36: WBC 7.0, RBC 3.87 L, Hgb 10.8 L, Hct 33.7 L, MCV 87.1, MCH 27.9, MCHC 32.0, RDW Std Deviation 46.8 H, RDW Coeff of Elio 15.0 H, Plt Count 236, MPV 9.2, Immature Gran % (Auto) 0.700, Neut % (Auto) 66.8, Lymph % (Auto) 18.7 L, [place] % (Auto) 11.1 H, Eos % (Auto) 2.3, Baso % (Auto) 0.4, Absolute Neuts (auto) 4.6, Absolute Lymphs (auto) 1.30, Nucleated RBC % 0 04/20/21 03:36: Sodium 137, Potassium 4.2, Chloride 104, Carbon Dioxide 26.0, Anion Gap 7, BUN 15, Creatinine 0.56, Estim Creat Clear Calc 109.35, Est GFR (MDRD) Af Amer 146, Est GFR (MDRD) Non-Af 121, BUN/Creatinine Ratio 26.6 H, Glucose 215 H, Calcium 8.4 L, Total Bilirubin 0.30, AST 13 L, ALT 21, Alkaline Phosphatase 61, Total Protein 6.2 L, Albumin 2.6 L, Globulin 3.6, Albumin/Globulin Ratio 0.7 L, TSH 0.58, Free T4 1.21 04/20/21 03:36: Troponin I High Sens 10 04/20/21 03:36: Magnesium 1.6 04/20/21 06:34: POC Glucose 153 H Micro: Microbiology 04/19/21 21:55 Urine, Clean Catch Legionella Antigen - Final 04/19/21 21:55 Urine, Clean Catch Streptococcus pneumoniae Antigen (M - Final Radiology Impression Chest X-Ray 04/19/21 15:29 IMPRESSION: Progressive diffuse bilateral patchy pulmonary infiltrates worse in the left hemithorax. Electronically Signed: Carlos Pimentel MD at 15:42 EST , Service support , Chest CTA 04/19/21 19:34 IMPRESSION: 1. No pulmonary embolism. 2. Extensive Covid pneumonia. 3. Small effusions. Electronically Signed: Roderick Quintero MD at 20:31 EST Tel , Service support , Charges/Coding Visit Charges Inpatient E&M: 59199 Init Hosp L3
[2021-04-20] MEDS: Metoprolol Tartrate 25 MG Tablet PO ×2 (09:37→22:50)
[2021-04-20] MEDS: Fenofibrate 48 MG Tablet PO ×2 (09:38→22:50)
[2021-04-20] MEDS: Enoxaparin 30 MG/0.3 ML Syringe SC ×2 (09:38→22:50)
[2021-04-20] MEDS: DULoxetine Hcl 30 MG Capsule PO (09:39)
[2021-04-20] MEDS: Pantoprazole Sodium 20 MG Tablet PO (09:39)
[2021-04-20] MEDS: DULoxetine Hcl 60 MG Capsule PO (09:40)
[2021-04-20] MEDS: Lisinopril 2.5 MG Tablet PO (09:40)
[2021-04-20 09:46] LABS: BNP,B-Type NATRIURETIC PEPTIDE 72.8 pg/mL (0-100)
[2021-04-20 09:55] LABS: Procalcitonin 0.13 ng/mL (0.00-0.09)
--- NOTE | 2021-04-20 11:14 | PCM.PN.HOSP ---
Subjective Subjective Patient is a 50-year-old lady with past medical history significant for diabetes mellitus type 2, unvaccinated against COVID 19 with history of COVID-19 infection first diagnosed on 03/12/2021 for which she was hospitalized from 03/19 to 03/24/2021. Patient has since developed shortness of breath with activity and episodic palpitations. Presented to the emergency department with similar complaints. CT of the chest obtained demonstrated features consistent with extensive multifocal COVID-pneumonia with small bilateral pleural effusion and basilar atelectasis. Admitted to a monitored bed with consultation placed to pulmonary medicine Objective Data Objective Data Vital Signs: Vital Signs Temp Pulse Resp BP Pulse Ox 98.6 F 105 H 16 120/79 96 04/20/21 08:04 04/20/21 09:37 04/20/21 08:04 04/20/21 09:37 04/20/21 08:28 Oxygen Flow Rate (L/min) 2 Oxygen Delivery Method Nasal Cannula Weight: 72.4 kg Body Mass Index (BMI) 26.3 Intake & Output: Intake and Output for Last 24 Hours 04/18/21 04/19/21 04/20/21 23:59 23:59 23:59 Intake Total 638.33 / 878.33 883.33 / 883.33 Output Total Balance 638.33 / 878.33 882.33 / 882.33 Lab / Micro Data Result Diagrams: 04/20/21 03:36 04/20/21 03:36 Labs: Laboratory Results - last 24 hr 04/19/21 15:00: WBC 6.7, RBC 4.19 L, Hgb 11.5 L, Hct 36.1 L, MCV 86.2, MCH 27.4, MCHC 31.9 L, RDW Std Deviation 46.0 H, RDW Coeff of Elio 14.8 H, Plt Count 260, MPV 9.4, Immature Gran % (Auto) 0.700, Neut % (Auto) 66.1, Lymph % (Auto) 20.4, [place] % (Auto) 10.6 H, Eos % (Auto) 1.8, Baso % (Auto) 0.4, Absolute Neuts (auto) 4.4, Absolute Lymphs (auto) 1.36, Nucleated RBC % 0 04/19/21 15:00: Sodium 137, Potassium 4.6, Chloride 106, Carbon Dioxide 26.0, Anion Gap 5, BUN 15, Creatinine 0.62, Estim Creat Clear Calc 98.77, Est GFR (MDRD) Af Amer 132, Est GFR (MDRD) Non-Af 109, BUN/Creatinine Ratio 24.3 H, Glucose 168 H, Calcium 9.2, Total Bilirubin 0.30, AST 20, ALT 22, Alkaline Phosphatase 69, Troponin I High Sens 8, Total Protein 7.0, Albumin 2.9 L, Globulin 4.1, Albumin/Globulin Ratio 0.7 L 04/19/21 15:00: Lactic Acid 1.7 04/19/21 15:00: B-Natriuretic Peptide 107.0 H 04/19/21 21:10: POC Glucose 340 H 04/19/21 21:18: Procalcitonin 0.10 H 04/19/21 21:18: Troponin I High Sens 8 04/19/21 22:00: MRSA (PCR) Negative 04/19/21 23:19: Troponin I High Sens 9 04/20/21 03:36: WBC 7.0, RBC 3.87 L, Hgb 10.8 L, Hct 33.7 L, MCV 87.1, MCH 27.9, MCHC 32.0, RDW Std Deviation 46.8 H, RDW Coeff of Elio 15.0 H, Plt Count 236, MPV 9.2, Immature Gran % (Auto) 0.700, Neut % (Auto) 66.8, Lymph % (Auto) 18.7 L, [place] % (Auto) 11.1 H, Eos % (Auto) 2.3, Baso % (Auto) 0.4, Absolute Neuts (auto) 4.6, Absolute Lymphs (auto) 1.30, Nucleated RBC % 0 04/20/21 03:36: Sodium 137, Potassium 4.2, Chloride 104, Carbon Dioxide 26.0, Anion Gap 7, BUN 15, Creatinine 0.56, Estim Creat Clear Calc 109.35, Est GFR (MDRD) Af Amer 146, Est GFR (MDRD) Non-Af 121, BUN/Creatinine Ratio 26.6 H, Glucose 215 H, Calcium 8.4 L, Total Bilirubin 0.30, AST 13 L, ALT 21, Alkaline Phosphatase 61, Total Protein 6.2 L, Albumin 2.6 L, Globulin 3.6, Albumin/Globulin Ratio 0.7 L, TSH 0.58, Free T4 1.21 04/20/21 03:36: Troponin I High Sens 10 04/20/21 03:36: Magnesium 1.6 04/20/21 06:34: POC Glucose 153 H 04/20/21 09:22: B-Natriuretic Peptide 72.8 04/20/21 09:22: Procalcitonin 0.13 H Micro: Microbiology 04/19/21 21:55 Urine, Clean Catch Legionella Antigen - Final 04/19/21 21:55 Urine, Clean Catch Streptococcus pneumoniae Antigen (M - Final Radiography Diagnostic Testing: Radiology Impression Chest X-Ray 04/19/21 15:29 IMPRESSION: Progressive diffuse bilateral patchy pulmonary infiltrates worse in the left hemithorax. Electronically Signed: Carlos Pimentel MD at 15:42 EST , Service support , Chest CTA 04/19/21 19:34 IMPRESSION: 1. No pulmonary embolism. 2. Extensive Covid pneumonia. 3. Small effusions. Electronically Signed: Roderick Quintero MD at 20:31 EST Tel , Service support , Physical Exam Narrative GENERAL: cooperative HEENT: Atraumatic; EYES; Anicteric, Normal Conjunctiva NECK; supple, normal thyroid, RESPIRATORY: Diminished to auscultation CARDIOVASCULAR: Regular S1 S2, GI: soft, normoactive bowel sounds, : No Renal angle tenderness; EXTREMITIES: No edema, no clubbing, MUSCULOSKELETAL: no muscle waisting NEURO: Awake; no lateralizing signs. SKIN: No Rash PSYCH; Flat affect Assessment & Plan Assessment/Plan (1) Bilateral pneumonia: QUALIFIERS: Pneumonia type: due to unspecified organism Lung location: unspecified part of lung Qualified Code(s): J18.9 - Pneumonia, unspecified organism (2) Sinus tachycardia: (3) Hypoxia: PLAN: Patient is a 50-year-old lady with past medical history significant for diabetes mellitus type 2, unvaccinated against COVID 19 with history of COVID-19 infection first diagnosed on 03/12/2021 for which she was hospitalized from 03/19 to 03/24/2021. Patient has since developed shortness of breath with activity and episodic palpitations. Presented to the emergency department with similar complaints. CT of the chest obtained demonstrated features consistent with extensive multifocal COVID-pneumonia with small bilateral pleural effusion and basilar atelectasis. Admitted to a monitored bed with consultation placed to pulmonary medicine 1. Acute hypoxic respiratory failure ? Secondary to worsening infiltrate on chest x-ray for which the radiologist attributed to COVID-pneumonia. Patient first tested positive for COVID on 03/12/2021. Was seen in consultation by pulmonary medicine due to suspicion of possible organizing pneumonia. Did request for repeat COVID testing. Patient also started on steroids, broad-spectrum antibiotic therapy with Zosyn in addition to supplemental oxygen 2. Sinus tachycardia ? Patient has undergone extensive work-up without any identifiable cause. Patient was placed on beta-blockers by cardiology 3. Diabetes mellitus type 2 ? Uncontrolled with hyperglycemia with hemoglobin A1c of 13.9 on 03/22/2021. Patient's oral hypoglycemics held. Placed on long acting insulin, Accu-Cheks a.c. and at bedtime and covered with sliding scale insulin 4. Hypertension - Blood pressure controlled, home medications continued with dose adjustment as needed 5. Dyslipidemia ? Patient is on fenofibrate did continue 6. Diabetic polyneuropathy ? Patient is on gabapentin did continue 7. Depression with anxiety ? Patient is on duloxetine did continue with home dose 8. GERD ? Patient is on PPI 9. DVT prophylaxis - On enoxaparin Charges/Coding Visit Charges Inpatient E&M: 80455 [facility] Hosp L3
[2021-04-20 11:50] LABS: Bedside Glucose 358 mg/dL (70-110)
[2021-04-20 12:31] LABS: Rheumatoid Factor < 10.0 IU/mL (<15)
--- NOTE | 2021-04-20 13:15 | PCM.CONS.C ---
Assessment & Plan Assessment/Plan (1) Sinus tachycardia: PLAN: The patient is being evaluated for her sinus tachycardia. Based upon her evaluation thus far her sinus tachycardia may be related to her hypoxemia secondary to her underlying ongoing pulmonary disease process and thus being a reflux related mechanism. However, based upon ongoing concerns, she is being evaluated with a transthoracic echocardiogram/agitated saline contrast study to evaluate for any obvious evidence of intracardiac shunting phenomena that would contribute to such findings. If she did have such a finding, at the moment, her care may include continued evaluation care of her underlying pulmonary disease process until that has resolved and then she can further address any other cardiovascular issues as deemed appropriate. (2) Hypoxia: PLAN: The patient has had concerns of being hypoxemic. It is thought this is related to her underlying pulmonary disease process. She is being evaluated by Dr. Santillan of pulmonology. (3) Bilateral pneumonia: QUALIFIERS: Pneumonia type: due to unspecified organism Lung location: unspecified part of lung Qualified Code(s): J18.9 - Pneumonia, unspecified organism PLAN: The patient continues with underlying bilateral infiltrates compatible with pneumonia. At the moment she is being reassessed for COVID-19. She is also continuing medical therapy for an underlying bacterial process. (4) HLD (hyperlipidemia): PLAN: The patient will continue her lipid-lowering therapy as deemed appropriate. (5) Diabetes mellitus: PLAN: The patient will continue evaluation care per internal medicine. Addt'l Comments The patient's case has been discussed and reviewed with the patient, Dr. Valladares of the [facility] emergency department staff, and Dr. Santillan of the [facility] pulmonology/critical care staff. This note was generated using a voice recognition system and there may be incorrect words, spelling or punctuation that were not noted when reviewing the office note prior to saving. HPI Consult Data Date of Consult: 04/20/21 HPI Narrative HPI Narrative: EMILY CAGE, is a 50 year old white female who presents for cardiovascular consultation based upon concerns of sinus tachycardia and hypoxemia superimposed upon a history of recent COVID-19 illness and ongoing pulmonary disease process. The patient states she has been evaluated and cared for for COVID-19. She has been in and out of the hospital. She has been on medical management. She has been recuperating at home. She states at home she has noted when she has been up and ambulating she becomes more short of breath and dyspneic, she checks her heart rate and O2 saturation by her home pulse oximeter, she has been noted to have tachycardia and hypoxemia. Based upon the above she presented to the [facility] emergency department for further evaluation. Her cardiac enzyme was negative. Her ECG demonstrated sinus rhythm with a leftward axis and poor R wave progression. She underwent repeat radiologic studies including a chest CTA. There was a report of no great vessel disease/pulmonary embolism but a report of findings compatible with COVID-19 pneumonia. There was concern as to whether or not the patient had any underlying cardiovascular related issues contributing to her findings versus being related to her underlying pulmonary disease process and a reflex sinus tachycardia. She was placed in the PCU for further evaluation and care. She was requested to have a limited transthoracic echocardiogram performed to evaluate for any obvious intracardiac shunting phenomena. Of note, the patient states she has been in contact with the [facility] office. She states she was informed by Dr. Walker to be on medical management with metoprolol/Lopressor to assist with her heart rate response. She states she has not had a formal outpatient cardiovascular follow-up with him as of yet. [facility] Medical History (Updated 04/20/21 @ 13:[address] Reinaldo Collins MD) Anxiety Arthritis Back problem Bursitis Carpal tunnel syndrome Depression Diabetes Diabetes mellitus Diabetes mellitus Fibromyalgia GERD (gastroesophageal reflux disease) Headache High cholesterol History of diabetes mellitus HLD (hyperlipidemia) Hypoxia Osteoarthritis Pneumonia due to COVID-19 virus Seasonal allergic conjunctivitis Sleep apnea ULCERS Vision problems Vitamin deficiency Home Medications gabapentin 600 mg PO TID 03/23/21 [History Last Taken 04/06/21] lisinopril 2.5 mg PO DAILY 03/23/21 [History Last Taken 04/06/21] omeprazole 20 mg PO DAILY 03/23/21 [History Last Taken 04/06/21] ondansetron 8 mg PO TID PRN 03/23/21 [History Last Taken 04/06/21] metformin 1,000 mg PO BID #60 tab 03/24/21 [Rx Last Taken 04/06/21] Acidophilus Ex Str (L. sporog) 1 tab PO DAILY 04/07/21 [History Last Taken Unknown] duloxetine 30 mg PO DAILY 04/07/21 [History Last Taken Unknown] duloxetine 60 mg PO DAILY 04/07/21 [History Last Taken Unknown] fenofibrate micronized 67 mg PO BID 04/07/21 [History Last Taken Unknown] doxycycline monohydrate 100 mg PO BID #10 tab 04/09/21 [Rx Last Taken Unknown] metoprolol tartrate 25 mg PO BID #60 tab 04/09/21 [Rx Last Taken Unknown] Lantus Solostar U-100 Insulin 20 unit SUBCUT DAILY 04/19/21 [History Last Taken Unknown] aspirin 81 mg PO DAILY 04/19/21 [History Last Taken Unknown] diphenhydramine HCl [Benadryl] 50 mg PO BID PRN 04/19/21 [History Last Taken Unknown] insulin lispro 0 unit SUBCUT TIDCM 04/19/21 [History Last Taken Unknown] Allergy/AdvReac Type Severity Reaction Status Date / Time etodolac [From [facility]] Allergy Rash Verified 04/19/21 12:40 Family History Mother Arthritis Hypertension Melanoma Father Arthritis Bleeding disorder Diabetes Heart disease High cholesterol Son Kidney disease H/O psychiatric care Uncle Alcoholism Liver disease Grandmother Arthritis Cancer Lung cancer Sister Epilepsy Melanoma Skin cancer Aunt CVA (cerebral vascular accident) Surgical History H/O knee surgery History of carpal tunnel surgery History of hysterectomy Social History (Updated 04/20/21 @ 04:[address] Madison López MD) household members: none Smoking Status: Former smoker how long ago did patient quit smoking: Quit ~ 30 years prior. alcohol intake: current alcohol intake frequency: holidays/special occasions only substance use type: does not use ROS Constitutional Constitutional: Reports fatigue Eyes Eyes: Reports as per HPI ENT HEENT: Reports as per HPI Cardiovascular Cardiovascular: Reports dyspnea on exertion Respiratory/Chest Respiratory/Chest: Reports dyspnea on exertion Gastrointestinal Gastrointestinal: Reports as per HPI Genitourinary Genitourinary: Reports as per HPI Musculoskeletal Musculoskeletal: Reports as per HPI Integumentary Integumentary: Reports as per HPI Neurologic Neurologic: Reports as per HPI Physical Exam Const alert, oriented x3 and healthy appearing Orientation / Consciousness: awake HEENT normocephalic, head/scalp atraumatic and hearing grossly normal bilaterally Eyes PERRL, EOMs intact bilaterally and conjunctivae normal Neck supple and no JVD Resp Auscultation: rhonchi throughout Cardio regular rate, regular rhythm, S1 normal heart sound and S2 normal heart sound GI normal to inspection, nondistended, normoactive bowel sounds Extremity no pedal edema Skin no rashes or lesions noted Neuro oriented x3, moves all extremities, no focal motor deficits and no sensory deficits noted Psych mental status grossly normal Risk Stratification Risk Stratification Applicable: No Objective Data Vital Signs: Vital Signs Temp Pulse Resp BP Pulse Ox 97.7 F L 103 H 16 119/76 93 04/20/21 11:34 04/20/21 11:34 04/20/21 11:34 04/20/21 11:34 04/20/21 11:34 Oxygen Flow Rate (L/min) 1 Oxygen Delivery Method Nasal Cannula Weight: 159 lb 9.835 oz Body Mass Index (BMI) 26.3 Intake & Output: Intake and Output for Last 24 Hours 04/18/21 04/19/21 04/20/21 23:59 23:59 23:59 Intake Total 638.33 / 878.33 1293.33 / 1293.33 Output Total Balance 638.33 / 878.33 1292.33 / 1292.33 Lab / Micro Data Result Diagrams: 04/20/21 03:36 04/20/21 03:36 Labs: Laboratory Results - last 24 hr 04/19/21 15:00: WBC 6.7, RBC 4.19 L, Hgb 11.5 L, Hct 36.1 L, MCV 86.2, MCH 27.4, MCHC 31.9 L, RDW Std Deviation 46.0 H, RDW Coeff of Elio 14.8 H, Plt Count 260, MPV 9.4, Immature Gran % (Auto) 0.700, Neut % (Auto) 66.1, Lymph % (Auto) 20.4, [place] % (Auto) 10.6 H, Eos % (Auto) 1.8, Baso % (Auto) 0.4, Absolute Neuts (auto) 4.4, Absolute Lymphs (auto) 1.36, Nucleated RBC % 0 04/19/21 15:00: Sodium 137, Potassium 4.6, Chloride 106, Carbon Dioxide 26.0, Anion Gap 5, BUN 15, Creatinine 0.62, Estim Creat Clear Calc 98.77, Est GFR (MDRD) Af Amer 132, Est GFR (MDRD) Non-Af 109, BUN/Creatinine Ratio 24.3 H, Glucose 168 H, Calcium 9.2, Total Bilirubin 0.30, AST 20, ALT 22, Alkaline Phosphatase 69, Troponin I High Sens 8, Total Protein 7.0, Albumin 2.9 L, Globulin 4.1, Albumin/Globulin Ratio 0.7 L 04/19/21 15:00: Lactic Acid 1.7 04/19/21 15:00: B-Natriuretic Peptide 107.0 H 04/19/21 21:10: POC Glucose 340 H 04/19/21 21:18: Procalcitonin 0.10 H 04/19/21 21:18: Troponin I High Sens 8 04/19/21 22:00: MRSA (PCR) Negative 04/19/21 23:19: Troponin I High Sens 9 04/20/21 03:36: WBC 7.0, RBC 3.87 L, Hgb 10.8 L, Hct 33.7 L, MCV 87.1, MCH 27.9, MCHC 32.0, RDW Std Deviation 46.8 H, RDW Coeff of Elio 15.0 H, Plt Count 236, MPV 9.2, Immature Gran % (Auto) 0.700, Neut % (Auto) 66.8, Lymph % (Auto) 18.7 L, [place] % (Auto) 11.1 H, Eos % (Auto) 2.3, Baso % (Auto) 0.4, Absolute Neuts (auto) 4.6, Absolute Lymphs (auto) 1.30, Nucleated RBC % 0 04/20/21 03:36: Sodium 137, Potassium 4.2, Chloride 104, Carbon Dioxide 26.0, Anion Gap 7, BUN 15, Creatinine 0.56, Estim Creat Clear Calc 109.35, Est GFR (MDRD) Af Amer 146, Est GFR (MDRD) Non-Af 121, BUN/Creatinine Ratio 26.6 H, Glucose 215 H, Calcium 8.4 L, Total Bilirubin 0.30, AST 13 L, ALT 21, Alkaline Phosphatase 61, Total Protein 6.2 L, Albumin 2.6 L, Globulin 3.6, Albumin/Globulin Ratio 0.7 L, TSH 0.58, Free T4 1.21 04/20/21 03:36: Troponin I High Sens 10 04/20/21 03:36: Magnesium 1.6 04/20/21 06:34: POC Glucose 153 H 04/20/21 09:22: B-Natriuretic Peptide 72.8 04/20/21 09:22: Procalcitonin 0.13 H 04/20/21 11:31: Rheumatoid Factor < 10.0 04/20/21 11:38: POC Glucose 358 H Micro: Microbiology 04/19/21 21:55 Urine, Clean Catch Legionella Antigen - Final 04/19/21 21:55 Urine, Clean Catch Streptococcus pneumoniae Antigen (M - Final Cardiology Labs/Tests 04/19/21 15:00: WBC 6.7, RBC 4.19 L, Hgb 11.5 L, Hct 36.1 L, MCV 86.2, MCH 27.4, MCHC 31.9 L, Plt Count 260, MPV 9.4, Immature Gran % (Auto) 0.700, Neut % (Auto) 66.1, Lymph % (Auto) 20.4, [place] % (Auto) 10.6 H, Eos % (Auto) 1.8, Baso % (Auto) 0.4, Absolute Neuts (auto) 4.4, Nucleated RBC % 0 04/19/21 15:00: Sodium 137, Potassium 4.6, Chloride 106, Carbon Dioxide 26.0, Anion Gap 5, BUN 15, Creatinine 0.62, Est GFR (MDRD) Af Amer 132, Est GFR (MDRD) Non-Af 109, BUN/Creatinine Ratio 24.3 H, Glucose 168 H, Calcium 9.2, Total Bilirubin 0.30 04/19/21 15:00: Lactic Acid 1.7 04/19/21 15:00: B-Natriuretic Peptide 107.0 H 04/20/21 03:36: WBC 7.0, RBC 3.87 L, Hgb 10.8 L, Hct 33.7 L, MCV 87.1, MCH 27.9, MCHC 32.0, Plt Count 236, MPV 9.2, Immature Gran % (Auto) 0.700, Neut % (Auto) 66.8, Lymph % (Auto) 18.7 L, [place] % (Auto) 11.1 H, Eos % (Auto) 2.3, Baso % (Auto) 0.4, Absolute Neuts (auto) 4.6, Nucleated RBC % 0 04/20/21 03:36: Sodium 137, Potassium 4.2, Chloride 104, Carbon Dioxide 26.0, Anion Gap 7, BUN 15, Creatinine 0.56, Est GFR (MDRD) Af Amer 146, Est GFR (MDRD) Non-Af 121, BUN/Creatinine Ratio 26.6 H, Glucose 215 H, Calcium 8.4 L, Total Bilirubin 0.30 04/20/21 03:36: Magnesium 1.6 04/20/21 09:22: B-Natriuretic Peptide 72.8 Rhythm: Sinus rhythm EKG: Sinus rhythm; leftward axis; poor wave progression ECHO: 04-08-2021 Interpretation Summary Normal LV size. Left ventricular systolic function is normal. The estimated ejection fraction is 60 %. Pulmonary artery systolic pressure is 30 mmHg. Structurally normal valves. Radiography Diagnostic Testing: Radiology Impression Chest X-Ray 04/19/21 15:29 IMPRESSION: Progressive diffuse bilateral patchy pulmonary infiltrates worse in the left hemithorax. Electronically Signed: Carlos Pimentel MD at 15:42 EST , Service support , Chest CTA 04/19/21 19:34 IMPRESSION: 1. No pulmonary embolism. 2. Extensive Covid pneumonia. 3. Small effusions. Electronically Signed: Roderick Quintero MD at 20:31 EST Tel , Service support ,
[2021-04-20 17:15] LABS: Bedside Glucose 403 mg/dL (70-110)
[2021-04-20 22:51] LABS: Bedside Glucose 431 mg/dL (70-110)
[2021-04-21] VITALS (16 sets, daily range): BP systolic 112–124; BP diastolic 56–88; PULSE 96–109; RESP 16–22; TEMP 35.2–36.7; O2SAT 85–97
[2021-04-21] MEDS: Piperacil/Tazobactam 3.375 GM/50 ML ML IV ×3 (05:51→20:57)
[2021-04-21] MEDS: Insulin Lispro 100 UNIT/ML INSULN.PEN SC ×4 (05:51→20:59)
[2021-04-21] MEDS: Gabapentin 600 MG Tablet PO ×3 (05:51→21:01)
[2021-04-21] MEDS: Insulin Lispro 100 UNIT/ML INSULN.PEN 15 UNIT SC (05:52)
[2021-04-21 06:01] LABS: Bedside Glucose 355 mg/dL (70-110)
--- NOTE | 2021-04-21 06:42 | PN.CC_ITS ---
Assessment & Plan Assessment/Plan (1) Hypoxia: PLAN: RECOMMENDATIONS: 1. Continue empiric antimicrobials. Discharge patient home on Levaquin to complete 7 days of therapy. 2. Continue IV steroids for now. Plan to discharge home on 40 mg of prednisone until outpatient pulmonary follow-up. 3. Wean supplemental oxygen to maintain saturations at or above 90%. 4. Await results of autoimmune work-up. 5. Perform walking oximetry study prior to consideration for discharge home. 6. The patient should follow-up in the pulmonary medicine clinic 2 weeks after discharge. IMPRESSIONS: 1. Shortness of breath with associated hypoxemia The patient was initially diagnosed with COVID-19 pneumonia in mid March. However, her respiratory symptoms were mild and she was never hypoxemic. She did not require any advanced therapy at that time. The patient then returned to the hospital and was admitted in April with continued dyspnea in the setting of radiographic evidence of bilateral airspace opacities. She was treated with antimicrobials following evaluation by infectious diseases. Despite this, the patient remains short of breath. No pulmonary emboli has ever been identified on previous chest imaging. Her CTA did demonstrate continued evidence of bilateral airspace opacities. In light of the patient's continued symptoms, it is reasonable to continue empiric antimicrobials. While a bacterial infection is a possibility, the infiltrates could also represent an inflammatory pneumonia which can be seen in organizing pneumonia. The patient has had positive CCP antibodies in the past. However, she denies ever having been diagnosed with any autoimmune disorders. Accordingly, the patient was placed on steroids. Echo cardiogram did not demonstrate evidence of shunting. She is improving symptomatically on corticosteroids. In light of this, it would be reasonable to transition her to prednisone at discharge and continue her on 40 mg daily until she follows up in the pulmonary medicine clinic. I would wait an additional 6 to 8 weeks to obtain repeat chest imaging. Perform walking oximetry study prior to consideration for discharge home. 2. Diabetes mellitus/anemia/depression/anxiety/GERD Complicates care, management, recovery and prognosis. Continue home medications as indicated. This note was generated with [employer]ation software. It may contain incorrect words, spelling, and punctuation that were not noted in checking the note before signing. Subjective Subjective The patient was seen and examined at the bedside this morning. Events from the last 24 hours have been reviewed. The patient is currently afebrile, hemodynamically stable and maintaining appropriate oxygen saturations on 2 L/min via nasal cannula. The patient remains on empiric broad-spectrum antimicrobials along with prophylactic Lovenox and IV steroids. Repeat COVID PCR from yesterday was negative. This morning, the patient reported that she feels a lot better than she did yesterday. She stated that she was able to get out of bed yesterday and walk back and forth to the bathroom without any significant limitation. Objective Data Objective Data The patient's most recent lab work, culture data and imaging studies have all been personally reviewed. Infectious work-up has been unrevealing to date. Limited echo performed April 20 was negative for atrial septal defect. Vital Signs: Vital Signs Temp Pulse Resp BP Pulse Ox 97.2 F L 96 16 121/82 H 96 04/21/21 02:38 04/21/21 04:00 04/21/21 02:38 04/21/21 02:38 04/21/21 02:38 Oxygen Flow Rate (L/min) 2 Oxygen Delivery Method Nasal Cannula Weight: 74.4 kg Body Mass Index (BMI) 26.3 Intake & Output: Intake and Output for Last 24 Hours 04/19/21 04/20/21 04/21/21 23:59 23:59 23:59 Intake Total 638.33 / 878.33 2196.67 / 2212.67 82 / 82 Output Total Balance 638.33 / 878.33 2195.67 / 2211.67 82 / 82 Lab / Micro Data Attestation: I reviewed the patient's lab results. Result Diagrams: 04/20/21 03:36 04/20/21 03:36 Labs: Laboratory Results - last 24 hr 04/20/21 09:22: B-Natriuretic Peptide 72.8 04/20/21 09:22: Procalcitonin 0.13 H 04/20/21 11:30: COVID-19 (RUTH) Not Detected 04/20/21 11:31: Rheumatoid Factor < 10.0 04/20/21 11:38: POC Glucose 358 H 04/20/21 17:05: POC Glucose 403 H 04/20/21 22:41: POC Glucose 431 H 04/21/21 05:50: POC Glucose 355 H Micro: Microbiology 04/19/21 21:55 Urine, Clean Catch Legionella Antigen - Final 04/19/21 21:55 Urine, Clean Catch Streptococcus pneumoniae Antigen (M - Final Radiography Diagnostic Testing: Radiology Impression Echocardiogram 04/19/21 20:48 Interpretation Summary Bubble contrast study negative for right to left interatrial shunt. Ordering Physician: Madison López Referring Physician: WILLY MURRAY Performed By: Scarlet Buckley, NANCY, RVT Physical Exam Const alert, oriented x3 and no apparent distress General Appearance: cooperative HEENT normocephalic, head/scalp atraumatic and moist oral mucous membranes Eyes PERRL, EOMs intact bilaterally and conjunctivae normal Neck supple General: trachea midline Chest inspection of chest normal Resp normal respiratory effort Effort and Inspection: able to speak in complete sentences Auscultation: Negative for rales, rhonchi or wheezes Cardio regular rate, regular rhythm, S1 normal heart sound and S2 normal heart sound GI normal to inspection, nondistended, normoactive bowel sounds Extremity no clubbing, cyanosis or edema Skin no rashes or lesions noted Neuro CN's II-XII intact bilaterally, moves all extremities and no focal motor deficits Psych cooperative and affect normal Charges/Coding Visit Charges Inpatient E&M: 84399 Subs Hosp L2
--- NOTE | 2021-04-21 07:19 | PCM.PN.HOSP ---
Subjective Subjective Patient seen. Was assessed for home oxygen requirement she did require up to 8 L with ambulation and was also found to be unsteady. Decision to discharge patient placed on hold. Adjusted her insulin regiment in view of elevated blood glucose levels due to concomitant steroid use Objective Data Objective Data Vital Signs: Vital Signs Temp Pulse Resp BP Pulse Ox 97.2 F L 96 16 121/82 H 96 04/21/21 02:38 04/21/21 04:00 04/21/21 02:38 04/21/21 02:38 04/21/21 02:38 Oxygen Flow Rate (L/min) 2 Oxygen Delivery Method Nasal Cannula Weight: 74.4 kg Body Mass Index (BMI) 26.3 Intake & Output: Intake and Output for Last 24 Hours 04/19/21 04/20/21 04/21/21 23:59 23:59 23:59 Intake Total 638.33 / 878.33 2196.67 / 2212.67 82 / 82 Output Total Balance 638.33 / 878.33 2195.67 / 2211.67 82 / 82 Lab / Micro Data Result Diagrams: 04/20/21 03:36 04/20/21 03:36 Labs: Laboratory Results - last 24 hr 04/20/21 09:22: B-Natriuretic Peptide 72.8 04/20/21 09:22: Procalcitonin 0.13 H 04/20/21 11:30: COVID-19 (RUTH) Not Detected 04/20/21 11:31: Rheumatoid Factor < 10.0 04/20/21 11:38: POC Glucose 358 H 04/20/21 17:05: POC Glucose 403 H 04/20/21 22:41: POC Glucose 431 H 04/21/21 05:50: POC Glucose 355 H Micro: Microbiology 04/19/21 21:55 Urine, Clean Catch Legionella Antigen - Final 04/19/21 21:55 Urine, Clean Catch Streptococcus pneumoniae Antigen (M - Final Radiography Diagnostic Testing: Radiology Impression Echocardiogram 04/19/21 20:48 Interpretation Summary Bubble contrast study negative for right to left interatrial shunt. Ordering Physician: Madison López Referring Physician: WILLY MURRAY Performed By: Scarlet Buckley, GINCS, RVT Physical Exam Narrative GENERAL: cooperative HEENT: Atraumatic; EYES; Anicteric, Normal Conjunctiva NECK; supple, normal thyroid, RESPIRATORY: Diminished to auscultation CARDIOVASCULAR: Regular S1 S2, GI: soft, normoactive bowel sounds, : No Renal angle tenderness; EXTREMITIES: No edema, no clubbing, MUSCULOSKELETAL: no muscle waisting NEURO: Awake; no lateralizing signs. SKIN: No Rash PSYCH; Flat affect Assessment & Plan Assessment/Plan (1) Bilateral pneumonia: QUALIFIERS: Lung location: unspecified part of lung Pneumonia type: due to unspecified organism Qualified Code(s): J18.9 - Pneumonia, unspecified organism (2) Sinus tachycardia: (3) Hypoxia: PLAN: Patient is a 50-year-old lady with past medical history significant for diabetes mellitus type 2, unvaccinated against COVID 19 with history of COVID-19 infection first diagnosed on 03/12/2021 for which she was hospitalized from 03/19 to 03/24/2021. Patient has since developed shortness of breath with activity and episodic palpitations. Presented to the emergency department with similar complaints. CT of the chest obtained demonstrated features consistent with extensive multifocal COVID-pneumonia with small bilateral pleural effusion and basilar atelectasis. Admitted to a monitored bed with consultation placed to pulmonary medicine 1. Acute hypoxic respiratory failure ? Secondary to worsening infiltrate on chest x-ray for which the radiologist attributed to COVID-pneumonia. Patient first tested positive for COVID on 03/12/2021. Was seen in consultation by pulmonary medicine due to suspicion of possible organizing pneumonia. Did request for repeat COVID testing. Patient also started on steroids, broad-spectrum antibiotic therapy with Zosyn in addition to supplemental oxygen -04/21/2021. Patient requiring up to 8 L with ambulation. Plan is to discharge patient when her oxygen requirement falls below 6 or less with ambulation. Seen in consultation by pulmonary medicine Dr Burgos recommended discharging patient home on prednisone 40 mg daily until seen by pulmonary as outpatient as well as [place] for 7 days when ready for discharge. JAIRO reflex panel also sent 2. Sinus tachycardia ? Patient has undergone extensive work-up without any identifiable cause. Patient was placed on beta-blockers by cardiology 3. Diabetes mellitus type 2 ? Uncontrolled with hyperglycemia with hemoglobin A1c of 13.9 on 03/22/2021. Patient's oral hypoglycemics held. Placed on long acting insulin, Accu-Cheks a.c. and at bedtime and covered with sliding scale insulin -04/21/2021 blood glucose levels uncontrolled due to concomitant use of steroid subsequent adjustment made to patient insulin regimen 4. Hypertension - Blood pressure controlled, home medications continued with dose adjustment as needed 5. Dyslipidemia ? Patient is on fenofibrate did continue 6. Diabetic polyneuropathy ? Patient is on gabapentin did continue 7. Depression with anxiety ? Patient is on duloxetine did continue with home dose 8. GERD ? Patient is on PPI 9. DVT prophylaxis - On enoxaparin 10. Anemia - Secondary to chronic disorder monitoring H&H and transfuse if patient becomes symptomatic or hemoglobin falls below 7 11. Physical deconditioning - Requested for PT OT eval and social work associate to assist with discharge planning Charges/Coding Visit Charges Inpatient E&M: 333[address] [facility] Hosp L3
--- NOTE | 2021-04-21 10:57 | PN.CARD_ITS ---
Subjective Subjective The patient is awake and alert. She has no new acute cardiac complaints. Objective Data Vital Signs: Vital Signs Temp Pulse Resp BP Pulse Ox 97.9 F 105 H 22 H 124/79 H 86 04/21/21 08:45 04/21/21 08:45 04/21/21 08:45 04/21/21 08:45 04/21/21 08:54 Oxygen Flow Rate (L/min) [ 8 AMBULATING with Oxygen #3] Oxygen Flow Rate (L/min) [ 4 AMBULATING with Oxygen #2] Oxygen Flow Rate (L/min) [ 2 AMBULATING with Oxygen #1] Oxygen Flow Rate (L/min) [At 2 REST with Oxygen] Oxygen Flow Rate (L/min) [At 0 REST on Room Air] Oxygen Flow Rate (L/min) 2 Oxygen Delivery Method Nasal Cannula Weight: 164 lb 0.383 oz Body Mass Index (BMI) 26.3 Intake & Output: Intake and Output for Last 24 Hours 04/19/21 04/20/21 04/21/21 23:59 23:59 23:59 Intake Total 638.33 / 878.33 2196.67 / 2212.67 132 / 132 Output Total Balance 638.33 / 878.33 2195.67 / 2211.67 132 / 132 Lab / Micro Data Result Diagrams: 04/20/21 03:36 04/20/21 03:36 Labs: Laboratory Results - last 24 hr 04/20/21 11:30: COVID-19 (RUTH) Not Detected 04/20/21 11:31: Rheumatoid Factor < 10.0 04/20/21 11:38: POC Glucose 358 H 04/20/21 17:05: POC Glucose 403 H 04/20/21 22:41: POC Glucose 431 H 04/21/21 05:50: POC Glucose 355 H Cardiology Labs/Tests Rhythm: Sinus rhythm Radiography Diagnostic Testing: Radiology Impression Echocardiogram 04/19/21 20:48 Interpretation Summary Bubble contrast study negative for right to left interatrial shunt. Ordering Physician: Madison López Referring Physician: WILLY MURRAY Performed By: Scarlet Buckley, NANCY, RVT Physical Exam Const alert, oriented x3 and healthy appearing Orientation / Consciousness: awake HEENT normocephalic, head/scalp atraumatic and hearing grossly normal bilaterally Eyes PERRL, EOMs intact bilaterally and conjunctivae normal Neck supple and no JVD Resp Auscultation: rhonchi throughout Cardio regular rate, regular rhythm, S1 normal heart sound and S2 normal heart sound GI normal to inspection, nondistended, normoactive bowel sounds Extremity no pedal edema Skin no rashes or lesions noted Neuro oriented x3, moves all extremities, no focal motor deficits and no sensory deficits noted Psych mental status grossly normal Assessment & Plan Assessment/Plan (1) Sinus tachycardia: PLAN: The patient is being evaluated for her sinus tachycardia. Based upon her evaluation thus far her sinus tachycardia may be related to her hypoxemia secondary to her underlying ongoing pulmonary disease process and thus being a reflux related mechanism. She has undergone evaluation with a limited transthoracic echocardiogram with an agitated saline contrast study to evaluate for any obvious intra-atrial shunting phenomena that would contribute to any concerns of hypoxemia. This study appeared to be negative. (2) Hypoxia: PLAN: The patient has had concerns of being hypoxemic. It is thought this is related to her underlying pulmonary disease process. She is being evaluated by Dr. Santillan of pulmonology. (3) Bilateral pneumonia: QUALIFIERS: Pneumonia type: due to unspecified organism Lung location: unspecified part of lung Qualified Code(s): J18.9 - Pneumonia, unspecified organism PLAN: The patient continues with underlying bilateral infiltrates compatible with pneumonia. Her repeat COVID-19 PCR test was reported as negative. She is also continuing medical therapy for an underlying bacterial process. (4) HLD (hyperlipidemia): PLAN: The patient will continue her lipid-lowering therapy as deemed appropriate. (5) Diabetes mellitus: PLAN: The patient will continue evaluation care per internal medicine. Addt'l Comments Overall, at the present time, the patient does not appear to require additional cardiac diagnostic studies/intervention. She will continue evaluation and care by internal medicine and pulmonology. Thank you for allowing me to participate in the care of your patient. Please don't hesitate to call if any issues arise. This note was generated using a voice recognition system and there may be incorrect words, spelling or punctuation that were not noted when reviewing the office note prior to saving.
[2021-04-21] MEDS: Insulin Lispro 100 UNIT/ML INSULN.PEN 20 UNIT SC ×2 (10:58→17:35)
[2021-04-21 11:05] LABS: Bedside Glucose 486 mg/dL (70-110)
[2021-04-21] MEDS: Pantoprazole Sodium 20 MG Tablet PO (11:07)
[2021-04-21] MEDS: Metoprolol Tartrate 25 MG Tablet PO ×2 (11:07→21:01)
[2021-04-21] MEDS: Lisinopril 2.5 MG Tablet PO (11:07)
[2021-04-21] MEDS: Fenofibrate 48 MG Tablet PO ×2 (11:07→21:01)
[2021-04-21] MEDS: Aspirin E.C. 81 MG Tablet PO (11:08)
[2021-04-21] MEDS: DULoxetine Hcl 60 MG Capsule PO (11:08)
[2021-04-21] MEDS: Enoxaparin 30 MG/0.3 ML Syringe SC ×2 (11:08→21:01)
[2021-04-21] MEDS: DULoxetine Hcl 30 MG Capsule PO (11:08)
[2021-04-21] MEDS: 0.9% Saline Lock 10 ML Syringe IV (11:13)
[2021-04-21 17:45] LABS: Bedside Glucose 460 mg/dL (70-110)
[2021-04-21 21:16] LABS: Bedside Glucose 364 mg/dL (70-110)
[2021-04-22] VITALS (10 sets, daily range): BP systolic 121–136; BP diastolic 66–85; PULSE 87–100; RESP 14–16; TEMP 35.4–36.6; O2SAT 87–97
[2021-04-22] MEDS: 0.9% Saline Lock 10 ML Syringe IV ×2 (00:42→14:57)
[2021-04-22] MEDS: Gabapentin 600 MG Tablet PO ×3 (05:09→21:39)
[2021-04-22] MEDS: Piperacil/Tazobactam 3.375 GM/50 ML ML IV ×3 (05:10→21:28)
[2021-04-22 06:41] LABS: Absolute Lymphocyte Count 0.72 X10^3/uL (0.83-4.51); Absolute Neutrophil Count 6.1 X10^3/uL (2.0-7.7); Basophil# 0.01 X10^3/uL; Basophil% 0.1 % (0-1); Hematocrit 34.9 % (37-47); Hemoglobin 11.4 g/dL (12.0-15.0); Lymphocyte # 0.72 X10^3/ul (0.83-4.51); Lymphocyte % 10.1 % (19-41); Mean Corp Hgb Conc 32.7 g/dL (32-36); Mean Corpuscular Hgb 27.7 pg (27.0-32.0); Mean Corpuscular Volume 84.7 fL (81-99); Mean Platelet Vol. 9.6 fl (6.2-12.0); Monocyte# 0.27 X10^3/uL; Monocyte% 3.8 % (0-10); NRBC Flagged by Analyzer 0 % (0-5); Neutrophil # 6.14 X10^3/uL (2.7-7.7); Neutrophil % 85.7 % (47-70); Platelet Count 236 K/mm3 (150-450); RBC Distribution Width CV 14.6 % (11.6-14.6); RBC Distribution Width SD 44.7 fl (35.1-43.9); Red Blood Count 4.12 M/mm3 (4.2-5.4); White Blood Count 7.2 K/mm3 (4.4-11.0)
[2021-04-22 07:03] LABS: AST(SGOT) 9 U/L (15-37); Alanine Aminotransfer ALT/SGPT 19 U/L (13-56); Albumin, Serum 2.9 g/dL (3.2-5.0); Alkaline Phosphatase 67 U/L (45-117); Anion Gap 6 (5-15); BUN 31 mg/dL (7-18); Bilirubin, Direct 0.09 mg/dL (0.00-0.30); Calcium,Total 9.5 mg/dL (8.5-10.1); Chloride 102 mmol/L (98-107); Creatinine, Serum 0.69 mg/dL (0.55-1.02); EST Glomerular Filtration Rate 96 mL/min (>60); Est Glom Filt Rate - Afr Amer 116 mL/min (>60); Estimated Creatinine Clearance 88.75 ml/min; Globulin 4.1 g/dL (2.2-4.2); Glucose 415 mg/dL (74-106); Potassium 4.6 mmol/L (3.5-5.1); Sodium Level 135 mmol/L (136-145)
[2021-04-22] MEDS: Insulin Lispro 100 UNIT/ML INSULN.PEN 25 UNIT SC (07:57)
[2021-04-22] MEDS: Insulin Lispro 100 UNIT/ML INSULN.PEN 20 UNIT SC ×3 (07:59→16:37)
[2021-04-22] MEDS: Aspirin E.C. 81 MG Tablet PO (07:59)
[2021-04-22] MEDS: Insulin Lispro 100 UNIT/ML INSULN.PEN SC ×4 (08:00→21:33)
[2021-04-22 08:16] LABS: Bedside Glucose 385 mg/dL (70-110)
--- NOTE | 2021-04-22 08:17 | PN.CC_ITS ---
Assessment & Plan Assessment/Plan (1) Hypoxia: PLAN: RECOMMENDATIONS: 1. Continue empiric antimicrobials. Discharge patient home on Levaquin to complete 7 days of therapy. 2. Continue IV steroids for now. Plan to discharge home on 40 mg of prednisone until outpatient pulmonary follow-up. 3. Wean supplemental oxygen to maintain saturations at or above 90%. 4. Await results of autoimmune work-up. 5. Perform walking oximetry study and control blood sugars prior to consideration for discharge home. 6. The patient should follow-up in the pulmonary medicine clinic 2 weeks aft er discharge. IMPRESSIONS: 1. Shortness of breath with associated hypoxemia The patient was initially diagnosed with COVID-19 pneumonia in mid March. However, her respiratory symptoms were mild and she was never hypoxemic. She did not require any advanced therapy at that time. The patient then returned to the hospital and was admitted in April with continued dyspnea in the setting of radiographic evidence of bilateral airspace opacities. She was treated with antimicrobials following evaluation by infectious diseases. Despite this, the patient remains short of breath. No pulmonary emboli has ever been identified on previous chest imaging. Her CTA did demonstrate continued evidence of bilateral airspace opacities. In light of the patient's continued symptoms, it is reasonable to continue empiric antimicrobials. While a bacterial infection is a possibility, the infiltrates could also represent an inflammatory pneumonia which can be seen in organizing pneumonia. The patient has had positive CCP antibodies in the past. However, she denies ever having been diagnosed with any autoimmune disorders. Accordingly, the patient was placed on steroids. Echocardiogram did not demonstrate evidence of shunting. She is improving symptomatically on corticosteroids. In light of this, it would be reasonable to transition her to prednisone at discharge and continue her on 40 mg daily until she follows up in the pulmonary medicine clinic. Patient will have a walking oximetry today. We will hold off on diuretic therapy as patient likely has an element of osmotic diuresis secondary to elevated blood sugars. 2. Diabetes mellitus/anemia/depression/anxiety/GERD Complicates care, management, recovery and prognosis. Continue home medications as indicated. Aggressive insulin and increase in Lantus will be ordered Subjective Subjective Patient did okay overnight from a hemodynamic standpoint. Patient has been on 2 to 3 L nasal cannula to maintain saturations at rest. Patient has had significantly elevated blood sugars overnight, but she states this is normal for me with steroids. Objective Data Objective Data Vital Signs: Vital Signs Temp Pulse Resp BP Pulse Ox 35.4 C L 89 16 121/79 H 96 04/22/21 03:00 04/22/21 07:43 04/22/21 03:00 04/22/21 03:00 04/22/21 03:00 Oxygen Flow Rate (L/min) [ 8 AMBULATING with Oxygen #3] Oxygen Flow Rate (L/min) [ 4 AMBULATING with Oxygen #2] Oxygen Flow Rate (L/min) [ 2 AMBULATING with Oxygen #1] Oxygen Flow Rate (L/min) [At 2 REST with Oxygen] Oxygen Flow Rate (L/min) [At 0 REST on Room Air] Oxygen Flow Rate (L/min) 1 Oxygen Delivery Method Nasal Cannula Weight: 72.6 kg Body Mass Index (BMI) 26.3 Intake & Output: Intake and Output for Last 24 Hours 04/20/21 04/21/21 04/22/21 23:59 23:59 23:59 Intake Total 2196.67 / 2212.67 542 / 782 530 / 530 Output Total Balance 2195.67 / 2211.67 542 / 782 530 / 530 Lab / Micro Data Result Diagrams: 04/22/21 06:25 04/22/21 06:25 Labs: Laboratory Results - last 24 hr 04/21/21 10:55: POC Glucose 486 H* 04/21/21 17:34: POC Glucose 460 H* 04/21/21 20:56: POC Glucose 364 H 04/22/21 06:25: WBC 7.2, RBC 4.12 L, Hgb 11.4 L, Hct 34.9 L, MCV 84.7, MCH 27.7, MCHC 32.7, RDW Std Deviation 44.7 H, RDW Coeff of Elio 14.6, Plt Count 236, MPV 9.6, Immature Gran % (Auto) 0.300, Neut % (Auto) 85.7 H, Lymph % (Auto) 10.1 L, [place] % (Auto) 3.8, Eos % (Auto) 0.0, Baso % (Auto) 0.1, Absolute Neuts (auto) 6.1, Absolute Lymphs (auto) 0.72 L, Nucleated RBC % 0 04/22/21 06:25: Sodium 135 L, Potassium 4.6, Chloride 102, Carbon Dioxide 27.0, Anion Gap 6, BUN 31 H, Creatinine 0.69, Estim Creat Clear Calc 88.75, Est GFR (MDRD) Af Amer 116, Est GFR (MDRD) Non-Af 96, BUN/Creatinine Ratio 45.0 H, Glucose 415 H, Calcium 9.5, Magnesium 2.0, Total Bilirubin 0.40, Direct Bilirubin 0.09, AST 9 L, ALT 19, Alkaline Phosphatase 67, Total Protein 7.0, Albumin 2.9 L, Globulin 4.1 04/22/21 07:55: POC Glucose 385 H Micro: Microbiology 04/19/21 21:55 Urine, Clean Catch Legionella Antigen - Final 04/19/21 21:55 Urine, Clean Catch Streptococcus pneumoniae Antigen (M - Final Physical Exam Const alert, oriented x3 and no apparent distress General Appearance: cooperative HEENT normocephalic, head/scalp atraumatic and moist oral mucous membranes Eyes PERRL, EOMs intact bilaterally and conjunctivae normal Neck supple General: trachea midline Chest inspection of chest normal Resp normal respiratory effort Effort and Inspection: able to speak in complete sentences Auscultation: Negative for rales, rhonchi or wheezes Cardio regular rate, regular rhythm, S1 normal heart sound and S2 normal heart sound GI normal to inspection, nondistended, normoactive bowel sounds Extremity no clubbing, cyanosis or edema Skin no rashes or lesions noted Neuro CN's II-XII intact bilaterally, moves all extremities and no focal motor deficits Psych cooperative and affect normal Charges/Coding Visit Charges Inpatient E&M: 06840 Subs Hosp L2
--- NOTE | 2021-04-22 08:39 | PCM.PN.HOSP ---
Subjective Subjective Follow-up on acute hypoxic respiratory failure/acute COVID-19 pneumonia: Patient was seen and examined. She is currently on 4 L of oxygen. She denies any fever or chills. This is her third admission in the last couple of months. Objective Data Objective Data Vital Signs: Vital Signs Temp Pulse Resp BP Pulse Ox 95.8 F L 89 16 121/79 H 96 04/22/21 03:00 04/22/21 07:43 04/22/21 03:00 04/22/21 03:00 04/22/21 03:00 Oxygen Flow Rate (L/min) [ 8 AMBULATING with Oxygen #3] Oxygen Flow Rate (L/min) [ 4 AMBULATING with Oxygen #2] Oxygen Flow Rate (L/min) [ 2 AMBULATING with Oxygen #1] Oxygen Flow Rate (L/min) [At 2 REST with Oxygen] Oxygen Flow Rate (L/min) [At 0 REST on Room Air] Oxygen Flow Rate (L/min) 1 Oxygen Delivery Method Nasal Cannula Weight: 72.6 kg Body Mass Index (BMI) 26.3 Intake & Output: Intake and Output for Last 24 Hours 04/20/21 04/21/21 04/22/21 23:59 23:59 23:59 Intake Total 2196.67 / 2212.67 542 / 782 530 / 530 Output Total Balance 2195.67 / 2211.67 542 / 782 530 / 530 Lab / Micro Data Result Diagrams: 04/22/21 06:25 04/22/21 06:25 Labs: Laboratory Results - last 24 hr 04/21/21 10:55: POC Glucose 486 H* 04/21/21 17:34: POC Glucose 460 H* 04/21/21 20:56: POC Glucose 364 H 04/22/21 06:25: WBC 7.2, RBC 4.12 L, Hgb 11.4 L, Hct 34.9 L, MCV 84.7, MCH 27.7, MCHC 32.7, RDW Std Deviation 44.7 H, RDW Coeff of Elio 14.6, Plt Count 236, MPV 9.6, Immature Gran % (Auto) 0.300, Neut % (Auto) 85.7 H, Lymph % (Auto) 10.1 L, [place] % (Auto) 3.8, Eos % (Auto) 0.0, Baso % (Auto) 0.1, Absolute Neuts (auto) 6.1, Absolute Lymphs (auto) 0.72 L, Nucleated RBC % 0 04/22/21 06:25: Sodium 135 L, Potassium 4.6, Chloride 102, Carbon Dioxide 27.0, Anion Gap 6, BUN 31 H, Creatinine 0.69, Estim Creat Clear Calc 88.75, Est GFR (MDRD) Af Amer 116, Est GFR (MDRD) Non-Af 96, BUN/Creatinine Ratio 45.0 H, Glucose 415 H, Calcium 9.5, Magnesium 2.0, Total Bilirubin 0.40, Direct Bilirubin 0.09, AST 9 L, ALT 19, Alkaline Phosphatase 67, Total Protein 7.0, Albumin 2.9 L, Globulin 4.1 04/22/21 07:55: POC Glucose 385 H Micro: Microbiology 04/19/21 21:55 Urine, Clean Catch Legionella Antigen - Final 04/19/21 21:55 Urine, Clean Catch Streptococcus pneumoniae Antigen (M - Final Physical Exam Narrative Physical exam: General: Alert, Oriented x3, Cooperative, No apparent distress, on 4 L of oxygen HEENT: Atraumatic Oral: Moist Mucosa Neck: Supple Lungs: Diminished to auscultation Cardiovascular: HS I+II, regular, no murmurs Abdomen: Bowel Sounds Present, Soft, Non Tender Extremities: No edema Assessment & Plan Assessment/Plan (1) Bilateral pneumonia: QUALIFIERS: Pneumonia type: due to unspecified organism Lung location: unspecified part of lung Qualified Code(s): J18.9 - Pneumonia, unspecified organism (2) Sinus tachycardia: (3) Hypoxia: PLAN: 1. 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 Sinus tachycardia, improved, continue metoprolol Cardiology following 3. Diabetes mellitus type 2, complicated by diabetic poorly neuropathy HbA1c of 13.9, blood sugars uncontrolled, Continue on Lantus, insulin sliding scale blood glucose check 4. Rest of chronic medical conditions including hypertension, hyperlipidemia, anxiety/depression, anemia of chronic disease all remained stable Home meds reviewed 5. DVT prophylaxis with Lovenox subcu Charges/Coding Visit Charges Inpatient E&M: 63700 Subs Hosp L2
[2021-04-22] MEDS: DULoxetine Hcl 60 MG Capsule PO (09:15)
[2021-04-22] MEDS: Pantoprazole Sodium 20 MG Tablet PO (09:16)
[2021-04-22] MEDS: Enoxaparin 30 MG/0.3 ML Syringe SC ×2 (09:16→21:38)
[2021-04-22] MEDS: DULoxetine Hcl 30 MG Capsule PO (09:16)
[2021-04-22] MEDS: Metoprolol Tartrate 25 MG Tablet PO ×2 (09:17→21:37)
[2021-04-22] MEDS: Fenofibrate 48 MG Tablet PO ×2 (09:17→21:39)
[2021-04-22] MEDS: Lisinopril 2.5 MG Tablet PO (09:17)
[2021-04-22 09:40] LABS: Bedside Glucose 372 mg/dL (70-110)
--- NOTE | 2021-04-22 10:02 | CASEMGMT ---
Readmission chart review: 03/19-03/24/22 DKA, COVID 1/2- COVID pna w/ tachycardia 04/19/21-current Prior COVID w/ superimposed bacterial pna Pt was initially admitted for DKA in March and found to have COVID but was on room air with sats greater than 95% during visit. Pt was discharged home with f/u with Dr. Garcia, endocrinology. Pt then returned to [facility] ED 04/07/21 with hypoxia-86% on room air and SOB worse w/ exertion. Pt was admitted for COVID pna with tachycardia. Pt was sent home with home oxygen thru [employer] 2L w/ exertion, new script for metoprolol 25mg po, and declined need for any therapy at discharge. Pt then returned to [facility] ED on 04/19/21 for palpitations and increased HR w/ exertion. Pt is on Metoprolol 25mg twice daily as ordered at discharge last visit. Cardiology is following pt. CM to follow for increased home oxygen need and any further discharge planning/needs. SStmadsyon MILLER CM
--- NOTE | 2021-04-22 10:02 | CASEMGMT ---
Readmission chart review: 03/19-03/24/22 DKA, COVID 1/2- COVID pna w/ tachycardia 04/19/21-current Prior COVID w/ superimposed bacterial pna Pt was initially admitted for DKA in March and found to have COVID but was on room air with sats greater than 95% during visit. Pt was discharged home with f/u with Dr. Garcia, endocrinology. Pt then returned to [facility] ED 04/07/21 with hypoxia-86% on room air and SOB worse w/ exertion. Pt was admitted for COVID pna with tachycardia. Pt was sent home with home oxygen thru [employer] 2L w/ exertion, new script for metoprolol 25mg po, and declined need for any therapy at discharge. Pt then returned to [facility] ED on 04/19/21 for palpitations and increased HR w/ exertion. Pt is on Metoprolol 25mg twice daily as ordered at discharge of last visit. Cardiology is following pt. CM to follow for increased home oxygen need and any further discharge planning/needs. SStmadyson MILLER CM
--- NOTE | 2021-04-22 10:02 | CASEMGMT ---
Readmission chart review: 03/19-03/24/22 DKA, COVID 1/2- COVID pna w/ tachycardia 04/19/21-current Prior COVID w/ superimposed bacterial pna Pt was initially admitted for DKA in March and found to have COVID but was on room air with sats greater than 95% during visit. Pt was discharged home with f/u with Dr. Garcia, endocrinology. Pt then returned to [facility] ED 04/07/21 with hypoxia-86% on room air and SOB worse w/ exertion. Pt was admitted for COVID pna with tachycardia. Pt was sent home with home oxygen thru [employer] 2L w/ exertion, new script for metoprolol 25mg po, and declined need for any therapy at discharge. Pt then returned to [facility] ED on 04/19/21 for palpitations and increased HR w/ exertion. Pt is on Metoprolol 25mg twice daily and is still tachycardic in the 120's at this time. Cardiology is following pt. CM to follow for increased home oxygen need and any further discharge planning/needs. SStmadyson MILLER CM
[2021-04-22 11:55] LABS: Bedside Glucose 302 mg/dL (70-110)
[2021-04-22 14:29] LABS: ANTINUCLEAR ANTIBODIES DIRECT Negative (Negative)
[2021-04-22 16:45] LABS: Bedside Glucose 363 mg/dL (70-110)
[2021-04-22 21:55] LABS: Bedside Glucose 415 mg/dL (70-110)
[2021-04-23] MEDS: 0.9% Saline Lock 10 ML Syringe IV (00:01)
[2021-04-23 03:00] VITALS: BP 122/78; PULSE 87; PULSE 92; RESP 13; TEMP 36.7; O2SAT 95
[2021-04-23] MEDS: Piperacil/Tazobactam 3.375 GM/50 ML ML IV (05:21)
[2021-04-23] MEDS: Gabapentin 600 MG Tablet PO (05:24)
[2021-04-23] MEDS: Insulin Lispro 100 UNIT/ML INSULN.PEN 20 UNIT SC ×2 (06:09→08:30)
[2021-04-23 06:15] LABS: Bedside Glucose 330 mg/dL (70-110)
[2021-04-23 07:17] LABS: Absolute Lymphocyte Count 0.79 X10^3/uL (0.83-4.51); Absolute Neutrophil Count 5.2 X10^3/uL (2.0-7.7); Hematocrit 38.6 % (37-47); Hemoglobin 12.5 g/dL (12.0-15.0); Lymphocyte # 0.79 X10^3/ul (0.83-4.51); Lymphocyte % 12.6 % (19-41); Mean Corp Hgb Conc 32.4 g/dL (32-36); Mean Corpuscular Hgb 27.6 pg (27.0-32.0); Mean Corpuscular Volume 85.2 fL (81-99); Mean Platelet Vol. 9.6 fl (6.2-12.0); Monocyte# 0.25 X10^3/uL; NRBC Flagged by Analyzer 0 % (0-5); Neutrophil # 5.19 X10^3/uL (2.7-7.7); Neutrophil % 82.6 % (47-70); Platelet Count 241 K/mm3 (150-450); RBC Distribution Width CV 14.3 % (11.6-14.6); RBC Distribution Width SD 44.5 fl (35.1-43.9); Red Blood Count 4.53 M/mm3 (4.2-5.4); White Blood Count 6.3 K/mm3 (4.4-11.0)
[2021-04-23 07:44] LABS: Anion Gap 8 (5-15); BUN 28 mg/dL (7-18); BUN/Creat Ratio 44.7 RATIO (10-20); Calcium,Total 9.5 mg/dL (8.5-10.1); Chloride 98 mmol/L (98-107); Creatinine, Serum 0.63 mg/dL (0.55-1.02); EST Glomerular Filtration Rate 107 mL/min (>60); Est Glom Filt Rate - Afr Amer 129 mL/min (>60); Glucose 352 mg/dL (74-106); Potassium 4.2 mmol/L (3.5-5.1); Sodium Level 134 mmol/L (136-145)
[2021-04-23 08:00] VITALS: PULSE 80
--- NOTE | 2021-04-23 08:19 | PCM.DC ---
Discharge Instructions Diet Discharge Diet: No restrictions Activity Discharge Activity: Return to Normal Activity Follow Up Care Test Results: Test results from this visit will be discussed in further detail at your follow-up appointment, if applicable. Discharge Plan Admission Admit Date/Time: 04/19/21 20:29 Primary Reason for Your Visit: Acute pneumonia Attending Provider: Sarah Tripp Primary Care Provider: Sapna Ray Consulting Providers: Reinaldo Collins ; David Santillan Instructions Additional Instructions / Restrictions: Complete your antibiotic and prednisone taper. Continue to use your oxygen all the time until you are told not to. Continue to check your blood sugars 3 times a day. Follow-up with your primary care doctor and with toppiece cutter in the outpatient. Discharge Orders/Prescriptions Prescriptions: New insulin lispro [Humalog KwikPen Insulin] 100 unit/mL Insulin Pen 20 unit subcut TIDAC 30 Days Qty: 18 RF: 0 Lantus Solostar U-100 Insulin 100 unit/mL (3 mL) Insulin Pen 75 units subcut BID 30 Days Qty: 45 RF: 0 prednisone 20 mg tablet 40 mg PO DAILY 14 Days Qty: 28 RF: 0 levofloxacin 750 mg tablet 750 mg PO DAILY 3 Days Qty: 3 RF: 0 Continued gabapentin 600 mg Tablet 600 mg PO TID RF: 0 omeprazole 20 mg Capsule,Delayed Release(Dr/Ec) 20 mg PO DAILY RF: 0 lisinopril 2.5 mg Tablet 2.5 mg PO DAILY RF: 0 fenofibrate micronized 67 mg capsule 67 mg PO BID RF: 0 duloxetine 30 mg capsule,delayed release(DR/EC) 30 mg PO DAILY RF: 0 duloxetine 60 mg capsule,delayed release(DR/EC) 60 mg PO DAILY RF: [address] (L. sporog) 35 million- 25 million cell tablet 1 tab PO DAILY RF: 0 metoprolol tartrate 25 mg Tablet 25 mg PO BID Qty: 60 RF: 0 aspirin 81 mg Tablet 81 mg PO DAILY RF: 0 Discontinued ondansetron 4 mg Tablet,Disintegrating 8 mg PO TID PRN (Reason: Nausea) RF: 0 metformin 1,000 mg tablet 1,000 mg PO BID Qty: 60 RF: 1 doxycycline monohydrate 100 mg tablet 100 mg PO BID Qty: 10 RF: 0 diphenhydramine HCl [Benadryl] 50 mg Capsule 50 mg PO BID PRN (Reason: Allergic Reaction) RF: 0 insulin lispro 100 unit/mL insulin pen 0 unit SUBCUT TIDCM RF: 0 Lantus Solostar U-100 Insulin 100 unit/mL (3 mL) insulin pen 20 unit subcut DAILY RF: 0 Referrals / Follow Up: Sapna Ray DO [Primary Care Provider] - Within 2 Weeks David Santillan DO [STAFF PHYSICIAN] - Within 2 Weeks Disposition Disposition (needs filled in before D/C Order can be placed): Home, Self Care
--- NOTE | 2021-04-23 08:26 | PCM.DC.SUM ---
Providers Date of Admission: 04/19/21 Date of Discharge: 04/23/21 Primary Care Physician: Dr. Sapna Ray, Consultations 04/19/21 20:48 Consult: Cardiology Routine Consulting Provider: Reinaldo Collins Reason for Consult: Recurrent exertional tachycardia, hypoxia, COVID hx EMERGENT Consult: No MD Notified: Yes Date Notified: 04/19/21 Time Notified: 20:30 Method of Notification: called per ED. Consult: Front End Developer Designer / Pulmonary Medicine Routine Consulting Provider: David Santillan Reason for Consult: Worsening exertional hypoxia (70s), tachycardia, recent COVID EMERGENT Consult: No MD Notified: Yes Date Notified: 04/19/21 Time Notified: 20:31 Method of Notification: called per ED. Reason For Visit: PRIOR COVID WITH SUPERIMPOSED BACTERIAL PNA Diagnosis Discharge Diagnosis (1) Bilateral pneumonia: Status: Acute Code(s): J18.9 - Pneumonia, unspecified organism Qualifiers: Lung location: unspecified part of lung Pneumonia type: due to unspecified organism Qualified Code(s): J18.9 - Pneumonia, unspecified organism (2) Sinus tachycardia: Status: Resolved Code(s): R00.0 - Tachycardia, unspecified (3) Hypoxia: Status: Acute Code(s): R09.02 - Hypoxemia Medications at Discharge Home Medications gabapentin 600 mg PO TID 03/23/21 lisinopril 2.5 mg PO DAILY 03/23/21 omeprazole 20 mg PO DAILY 03/23/[address] Acidophilus Ex Str (L. sporog) 1 tab PO DAILY 04/07/21 duloxetine 30 mg PO DAILY 04/07/21 duloxetine 60 mg PO DAILY 04/07/21 fenofibrate micronized 67 mg PO BID 04/07/21 metoprolol tartrate 25 mg PO BID #60 tab 04/09/21 aspirin 81 mg PO DAILY 04/19/21 insulin glargine [Lantus Solostar U-100 Insulin] 75 units SUBCUT BID 30 Days #45 ml 04/23/21 insulin lispro [Humalog KwikPen Insulin] 20 unit SUBCUT TIDAC 30 Days #18 ml 04/23/21 levofloxacin 750 mg PO DAILY 3 Days #3 tab 04/23/21 prednisone 40 mg PO DAILY 14 Days #28 tab 04/23/21 Hospital Course Operations None Procedures None Summary of Care Provided Minutes Spent on Discharge: 40 Hospital Course: 50-year-old with past medical history of type II DM, who comes in with her third admission within a couple of months. Patient was initially admitted and discharged on 03/24/21 with DKA and COVID. She was readmitted and discharged on 04/09/21 with pneumonia. Presented back this time with ongoing unabating cough, fatigue, tachycardia and hypoxia. Her pulse ox was dropping into the 70s. Patient's work-up in the ED was negative for acute PE. EKG shows sinus tachycardia with no acute evidence of ischemia. Cardiology and pulmonology were consulted. Patient was started on empiric IV vancomycin and Zosyn for probable superimposed bacterial pneumonia. Patient was continued on metoprolol. 2D echo was negative for an intra atrial shunting phenomena. Autoimmune work-up was started. Patient was evaluated for home oxygen. She was discharged to complete 7 days of therapy with Levaquin. She was also discharged on prednisone 40 mg daily until she sees pulmonology in 2 weeks. Physical Exam Narrative Physical exam: General: Alert, Oriented x3, Cooperative, No apparent distress, on 4 L of oxygen HEENT: Atraumatic Oral: Moist Mucosa Neck: Supple Lungs: Diminished to auscultation Cardiovascular: HS I+II, regular, no murmurs Abdomen: Bowel Sounds Present, Soft, Non Tender Extremities: No edema Weight / BMI Weight Weight: 71.4 kg Body Mass Index (BMI) 26.3 ABG / Lab / Microbiology Data Result Diagrams: 04/23/21 06:59 04/23/21 06:59 Laboratory: Laboratory Results - last 24 hr 04/20/21 11:31: JAIRO Screen Negative, ALESIA-1 Antibody Not Reportable, SS-A/Ro IgG Antibody Not Reportable, SS-B/La IgG Antibody Not Reportable, Sm (Rouse) Antibody Not Reportable, LIFT TEAM TECHNICIAN Antibody Not Reportable, Scl-70 Scleroderma Ab Not Reportable, Double Strand DNA Ab Not Reportable, Centromere B Antibody Not Reportable 04/22/21 09:14: POC Glucose 372 H 04/22/21 11:36: POC Glucose 302 H 04/22/21 16:36: POC Glucose 363 H 04/22/21 21:27: POC Glucose 415 H 04/23/21 06:08: POC Glucose 330 H 04/23/21 06:59: WBC 6.3, RBC 4.53, Hgb 12.5, Hct 38.6, MCV 85.2, MCH 27.6, MCHC 32.4, RDW Std Deviation 44.5 H, RDW Coeff of Elio 14.3, Plt Count 241, MPV 9.6, Immature Gran % (Auto) 0.800, Neut % (Auto) 82.6 H, Lymph % (Auto) 12.6 L, [place] % (Auto) 4.0, Eos % (Auto) 0.0, Baso % (Auto) 0.0, Absolute Neuts (auto) 5.2, Absolute Lymphs (auto) 0.79 L, Nucleated RBC % 0 04/23/21 06:59: Sodium 134 L, Potassium 4.2, Chloride 98, Carbon Dioxide 28.0, Anion Gap 8, BUN 28 H, Creatinine 0.63, Estim Creat Clear Calc 97.20, Est GFR (MDRD) Af Amer 129, Est GFR (MDRD) Non-Af 107, BUN/Creatinine Ratio 44.7 H, Glucose 352 H, Calcium 9.5 Microbiology: Microbiology 04/19/21 21:55 Urine, Clean Catch Legionella Antigen - Final 04/19/21 21:55 Urine, Clean Catch Streptococcus pneumoniae Antigen (M - Final D/C Instructions Discharge Diet: No restrictions Meaningful Use Info Meaningful Use Diagnoses (Choose all that apply): None applicable Discharge Plan Admission Admit Date/Time: 04/19/21 20:29 Primary Reason for Your Visit: Acute pneumonia Attending Provider: Sarah Tripp Primary Care Provider: Sapna Ray Consulting Providers: Reinaldo Collins ; David Santillan Instructions Additional Instructions / Restrictions: Complete your antibiotic and prednisone taper. Continue to use your oxygen all the time until you are told not to. Continue to check your blood sugars 3 times a day. Follow-up with your primary care doctor and with break out man in the outpatient. Discharge Orders/Prescriptions Prescriptions: New insulin lispro [Humalog KwikPen Insulin] 100 unit/mL Insulin Pen 20 unit subcut TIDAC 30 Days Qty: 18 RF: 0 Lantus Solostar U-100 Insulin 100 unit/mL (3 mL) Insulin Pen 75 units subcut BID 30 Days Qty: 45 RF: 0 prednisone 20 mg tablet 40 mg PO DAILY 14 Days Qty: 28 RF: 0 levofloxacin 750 mg tablet 750 mg PO DAILY 3 Days Qty: 3 RF: 0 Continued gabapentin 600 mg Tablet 600 mg PO TID RF: 0 omeprazole 20 mg Capsule,Delayed Release(Dr/Ec) 20 mg PO DAILY RF: 0 lisinopril 2.5 mg Tablet 2.5 mg PO DAILY RF: 0 fenofibrate micronized 67 mg capsule 67 mg PO BID RF: 0 duloxetine 30 mg capsule,delayed release(DR/EC) 30 mg PO DAILY RF: 0 duloxetine 60 mg capsule,delayed release(DR/EC) 60 mg PO DAILY RF: 0 Acidophilus Ex Str (L. sporog) 35 million- 25 million cell tablet 1 tab PO DAILY RF: 0 metoprolol tartrate 25 mg Tablet 25 mg PO BID Qty: 60 RF: 0 aspirin 81 mg Tablet 81 mg PO DAILY RF: 0 Discontinued ondansetron 4 mg Tablet,Disintegrating 8 mg PO TID PRN (Reason: Nausea) RF: 0 metformin 1,000 mg tablet 1,000 mg PO BID Qty: 60 RF: 1 doxycycline monohydrate 100 mg tablet 100 mg PO BID Qty: 10 RF: 0 diphenhydramine HCl [Benadryl] 50 mg Capsule 50 mg PO BID PRN (Reason: Allergic Reaction) RF: 0 insulin lispro 100 unit/mL insulin pen 0 unit SUBCUT TIDCM RF: 0 Lantus Solostar U-100 Insulin 100 unit/mL (3 mL) insulin pen 20 unit subcut DAILY RF: 0 Referrals / Follow Up: David Santillan DO [STAFF PHYSICIAN] - Within 2 Weeks Sapna Ray DO [Primary Care Provider] - 05/08/21 8:30 am Disposition Disposition (needs filled in before D/C Order can be placed): Home, Self Care Charges/Coding Visit Charges Inpatient E&M: 46613 Disch Hosp
[2021-04-23] MEDS: Insulin Lispro 100 UNIT/ML INSULN.PEN SC (08:29)
[2021-04-23 08:33] VITALS: O2SAT 92
[2021-04-23] MEDS: DULoxetine Hcl 30 MG Capsule PO (08:33)
[2021-04-23] MEDS: Fenofibrate 48 MG Tablet PO (08:33)
[2021-04-23] MEDS: Aspirin E.C. 81 MG Tablet PO (08:33)
[2021-04-23] MEDS: Lisinopril 2.5 MG Tablet PO (08:34)
[2021-04-23] MEDS: DULoxetine Hcl 60 MG Capsule PO (08:34)
[2021-04-23] MEDS: Pantoprazole Sodium 20 MG Tablet PO (08:34)
[2021-04-23] MEDS: Enoxaparin 30 MG/0.3 ML Syringe SC (08:34)
[2021-04-23 08:35] VITALS: BP 137/84; PULSE 91; RESP 16; TEMP 36.8; O2SAT 97
[2021-04-23] MEDS: Metoprolol Tartrate 25 MG Tablet PO (08:35)
[2021-04-23 08:45] VITALS: O2SAT 91; O2SAT 97
--- NOTE | 2021-04-23 08:50 | PCM.PN.INT ---
Assessment & Plan Assessment/Plan (1) Hypoxia: PLAN: RECOMMENDATIONS: 1. Continue empiric antimicrobials. Discharge patient home on Levaquin to complete 7 total days of therapy. 2. Plan to discharge home on 40 mg of prednisone until outpatient pulmonary follow-up. 3. Walking oximetry prior to discharge 4. Possible rheumatology evaluation as an outpatient 5. Perform walking oximetry study and control blood sugars prior to consideration for discharge home. 6. The patient should follow-up in the pulmonary medicine clinic 2 weeks after discharge. IMPRESSIONS: 1. Shortness of breath with associated hypoxemia The patient was initially diagnosed with COVID-19 pneumonia in mid March. However, her respiratory symptoms were mild and she was never hypoxemic. She did not require any advanced therapy at that time. The patient then returned to the hospital and was admitted in April with continued dyspnea in the setting of radiographic evidence of bilateral airspace opacities. She was treated with antimicrobials following evaluation by infectious diseases. Despite this, the patient remains short of breath. No pulmonary emboli has ever been identified on previous chest imaging. Her CTA did demonstrate continued evidence of bilateral airspace opacities. In light of the patient's continued symptoms, it is reasonable to continue empiric antimicrobials. While a bacterial infection is a possibility, the infiltrates could also represent an inflammatory pneumonia which can be seen in organizing pneumonia. The patient has had positive CCP antibodies in the past. However, she denies ever having been diagnosed with any autoimmune disorders. Accordingly, the patient was placed on steroids. Echocardiogram did not demonstrate evidence of shunting. She is improving symptomatically on corticosteroids. In light of this, it would be reasonable to transition her to prednisone at discharge and continue her on 40 mg daily until she follows up in the pulmonary medicine clinic. Patient should have a walking oximetry prior to discharge. We will need to follow blood sugars closely, but continue prednisone for now. JAIRO and RF are negative, but IgG is positive. Patient may need an outpatient rheumatology work-up. 2. Diabetes mellitus/anemia/depression/anxiety/GERD Complicates care, management, recovery and prognosis. Continue home medications as indicated. Aggressive insulin and increase in Lantus will be ordered. Patient understands this will need to be followed closely on discharge. Subjective Subjective Patient feeling subjectively much improved compared to previous. Patient is still requiring 1 L nasal cannula to maintain saturations at rest. Patient feels her shortness of breath is much improved compared to previous. Patient is asking to go home. Objective Data Objective Data Vital Signs: Vital Signs Temp Pulse Resp BP Pulse Ox 36.8 C 91 16 137/84 H 97 04/23/21 08:35 04/23/21 08:35 04/23/21 08:35 04/23/21 08:35 04/23/21 08:45 Oxygen Flow Rate (L/min) [ 8 AMBULATING with Oxygen #3] Oxygen Flow Rate (L/min) [ 4 AMBULATING with Oxygen #2] Oxygen Flow Rate (L/min) [ 2 AMBULATING with Oxygen #1] Oxygen Flow Rate (L/min) [At 1 REST with Oxygen] Oxygen Flow Rate (L/min) [At 0 REST on Room Air] Oxygen Flow Rate (L/min) 1 Oxygen Delivery Method Nasal Cannula Weight: 71.4 kg Body Mass Index (BMI) 26.3 Intake & Output: Intake and Output for Last 24 Hours 04/21/21 04/22/21 04/23/21 23:59 23:59 23:59 Intake Total 542 / 782 630 / 870 410 / 410 Balance 542 / 782 630 / 870 410 / 410 Lab / Micro Data Result Diagrams: 04/23/21 06:59 04/23/21 06:59 Labs: Laboratory Results - last 24 hr 04/20/21 11:31: JAIRO Screen Negative, ALESIA-1 Antibody Not Reportable, SS-A/Ro IgG Antibody Not Reportable, SS-B/La IgG Antibody Not Reportable, Sm (Rouse) Antibody Not Reportable, BARREL DEDENTING MACHINE OPERATOR Antibody Not Reportable, Scl-70 Scleroderma Ab Not Reportable, Double Strand DNA Ab Not Reportable, Centromere B Antibody Not Reportable 04/22/21 09:14: POC Glucose 372 H 04/22/21 11:36: POC Glucose 302 H 04/22/21 16:36: POC Glucose 363 H 04/22/21 21:27: POC Glucose 415 H 04/23/21 06:08: POC Glucose 330 H 04/23/21 06:59: WBC 6.3, RBC 4.53, Hgb 12.5, Hct 38.6, MCV 85.2, MCH 27.6, MCHC 32.4, RDW Std Deviation 44.5 H, RDW Coeff of Elio 14.3, Plt Count 241, MPV 9.6, Immature Gran % (Auto) 0.800, Neut % (Auto) 82.6 H, Lymph % (Auto) 12.6 L, [place] % (Auto) 4.0, Eos % (Auto) 0.0, Baso % (Auto) 0.0, Absolute Neuts (auto) 5.2, Absolute Lymphs (auto) 0.79 L, Nucleated RBC % 0 04/23/21 06:59: Sodium 134 L, Potassium 4.2, Chloride 98, Carbon Dioxide 28.0, Anion Gap 8, BUN 28 H, Creatinine 0.63, Estim Creat Clear Calc 97.20, Est GFR (MDRD) Af Amer 129, Est GFR (MDRD) Non-Af 107, BUN/Creatinine Ratio 44.7 H, Glucose 352 H, Calcium 9.5 Micro: Microbiology 04/19/21 21:55 Urine, Clean Catch Legionella Antigen - Final 04/19/21 21:55 Urine, Clean Catch Streptococcus pneumoniae Antigen (M - Final Physical Exam Const alert, oriented x3 and no apparent distress Constitutional Narrative: Eating breakfast on my evaluation and tolerating well. General Appearance: cooperative HEENT normocephalic, head/scalp atraumatic and moist oral mucous membranes Eyes PERRL, EOMs intact bilaterally and conjunctivae normal Neck supple General: trachea midline Chest inspection of chest normal Resp normal respiratory effort Effort and Inspection: able to speak in complete sentences Auscultation: Negative for rales, rhonchi or wheezes Cardio regular rate, regular rhythm, S1 normal heart sound and S2 normal heart sound GI normal to inspection, nondistended, normoactive bowel sounds Extremity no clubbing, cyanosis or edema Skin no rashes or lesions noted Neuro CN's II-XII intact bilaterally, moves all extremities and no focal motor deficits Psych cooperative and affect normal Charges/Coding Visit Charges Inpatient E&M: 94869 Subs Hosp L2
--- NOTE | 2021-04-23 09:02 | CASEMGMT ---
Pt does not qualify for increased home oxygen at this time. Pt states no further concerns/needs for discharge. Memo MILLER CM
[2021-04-24 08:28] LABS: CCP IgG Antibodies 6 units (0-19)
== END 2021-04-23 10:33 | disposition home or self-care (01) | DRG 139 ==
LOC: ED 13:48 → PCU 23:13
PROVIDERS: Internal Medicine; Internal Medicine Critical Care Medicine; Admitting Provider Family Medicine; Emergency Provider Emergency Medicine; PCP Family Medicine; Visit Provider Internal Medicine
DX: J15.9 Unspecified bacterial pneumonia (principal); D63.8 Anemia in other chronic diseases classified elsewhere; E11.42 Type 2 diabetes mellitus with diabetic polyneuropathy; E11.65 Type 2 diabetes mellitus with hyperglycemia; Z79.4 Long term (current) use of insulin; F41.9 Anxiety disorder, unspecified; K21.9 Gastro-esophageal reflux disease without esophagitis; I10 Essential (primary) hypertension; E78.5 Hyperlipidemia, unspecified; M79.7 Fibromyalgia; G47.33 Obstructive sleep apnea (adult) (pediatric); R00.0 Tachycardia, unspecified; Z86.16 Personal history of COVID-19; Z87.891 Personal history of nicotine dependence; R00.2 Palpitations; F32.A Depression, unspecified; Z79.82 Long term (current) use of aspirin; Z79.52 Long term (current) use of systemic steroids; Z79.899 Other long term (current) drug therapy
CPT/HCPCS: 36415; 71046; 71275; 80048; 80053; 80076; 82962; 83605; 83735; 83880; 84145; 84439; 84443; 84484; 85025; 86038; 86200; 86225; 86235; 86431; 87449; 87635; 87641; 93005; 93308; 99285; J7030; J7040; Q9967; A4216; U0003; U0005

== ENCOUNTER 2021-07-09 19:58 | Emergency (ER) | payer MEDICAID, SELFPAY ==
[2021-07-09 19:59] VITALS: BP 130/88; PULSE 120; RESP 18; TEMP 36.1; O2SAT 98; BMI 31.6
--- NOTE | 2021-07-09 20:38 | ED.VIS.BACK ---
HPI History of Present Illness Chief Complaint: Back Informant: patient Onset/Context/Timing Onset: Weeks (2 to 3-week) Context: Gradual Onset Location: Lumbar and Buttock Current Severity: Moderate Maximum Severity: Severe Narrative Narrative: Patient presents secondary to back pain/sciatica. She states has had problems with her sciatic nerves. Over the last 3 weeks has had a significant flare. She says the right side is now calm down but she still has severe pain in the left. She saw her PCP about a month ago but was not in too better pain at that time and was not given any additional medications. She has left messages for her doctor but has not yet heard back. She denies any recent fall or injury. [facility] Medical History Abdominal panniculus, symptomatic [place] (acute kidney injury) Anxiety Arthritis Back problem Bursitis Carpal tunnel syndrome Depression Diabetes Diabetes mellitus Diabetes mellitus Excessive body weight loss Fibromyalgia Fibromyalgia Former smoker GERD (gastroesophageal reflux disease) Headache HLD (hyperlipidemia) Hypoxia Intertrigo Lumbar back pain Multiple falls Osteoarthritis Panniculitis Pneumonia due to COVID-19 virus Seasonal allergic conjunctivitis Sleep apnea ULCERS Vision problems Vitamin deficiency Home Medications gabapentin 600 mg PO TID 03/23/21 [History Last Taken 04/06/21] lisinopril 2.5 mg PO DAILY 03/23/21 [History Last Taken 04/06/21] omeprazole 20 mg PO DAILY 03/23/21 [History Last Taken 04/06/21] Acidophilus Ex Str (L. sporog) 1 tab PO DAILY 04/07/21 [History Last Taken Unknown] duloxetine 30 mg PO DAILY 04/07/21 [History Last Taken Unknown] duloxetine 60 mg PO DAILY 04/07/21 [History Last Taken Unknown] fenofibrate micronized 67 mg PO BID 04/07/21 [History Last Taken Unknown] aspirin 81 mg PO DAILY 04/19/21 [History Last Taken Unknown] insulin glargine [Lantus Solostar U-100 Insulin] 75 units SUBCUT BID 30 Days #45 ml 04/23/21 [Rx Last Taken Unknown] insulin lispro [Humalog KwikPen Insulin] 20 unit SUBCUT TIDAC 30 Days #18 ml 04/23/21 [Rx Last Taken Unknown] ascorbic acid (vitamin C) 1,000 mg tablet 1 g PO DAILY tab 05/22/21 [History Last Taken Unknown] cholecalciferol (vitamin D3) 1,250 mcg (50,000 unit) capsule 1,250 mcg PO QWEEK 05/22/21 [History Last Taken Unknown] diphenhydramine HCl 25 mg capsule 25 mg PO BID PRN cap 05/22/21 [History Last Taken Unknown] levocetirizine 5 mg tablet 5 mg PO QPM PRN 05/22/21 [History Last Taken Unknown] metformin 1,000 mg tablet 1,000 mg PO BID 05/22/21 [History Last Taken Unknown] ondansetron HCl 8 mg tablet 8 mg PO Q8H 05/22/21 [History Last Taken Unknown] cyclobenzaprine 10 mg PO BID PRN #10 tab 07/09/21 [Rx Last Taken Unknown] hydrocodone-acetaminophen 1 tab PO Q6H PRN 3 Days #10 tab 07/09/21 [Rx Last Taken Unknown] naproxen [Naprosyn] 500 mg PO BID PRN #20 tab 07/09/21 [Rx Last Taken Unknown] prednisone 40 mg PO DAILY #10 tab 07/09/21 [Rx Last Taken Unknown] Allergy/AdvReac Type Severity Reaction Status Date / Time etodolac [From [facility]] Allergy Rash Verified 07/09/21 19:59 Family History Mother Arthritis Hypertension Melanoma Father Arthritis Bleeding disorder Diabetes Heart disease High cholesterol Son Kidney disease H/O psychiatric care Uncle Alcoholism Liver disease Grandmother Arthritis Cancer Lung cancer Sister Epilepsy Melanoma Skin cancer Aunt CVA (cerebral vascular accident) Surgical History H/O knee surgery History of carpal tunnel surgery History of hysterectomy Social History household members: none Smoking Status: Former smoker how long ago did patient quit smoking: Quit ~ 30 years prior. alcohol intake: current alcohol intake frequency: holidays/special occasions only substance use type: does not use ROS ROS ED Constitutional Constitutional ED: Denies chills or fever(s) Eyes Eyes: Denies change in vision ENT ENT ED: Denies sore throat Cardiovascular Cardiovascular: Denies chest pain Respiratory/Chest Respiratory/Chest: Denies cough or dyspnea Gastrointestinal Gastrointestinal: Denies abdominal pain, nausea or vomiting Genitourinary Genitourinary ED: Denies dysuria Musculoskeletal Musculoskeletal: Reports back pain Integumentary Denies rash Neurologic Neurologic: Denies headache(s) or weakness Allergic/Immunologic Allergic/Immunologic ED: Denies urticaria EXAM Physical Exam Const Vital Signs: 07/09/21 19:59 Temperature 96.9 F L Temperature Source Temporal Pulse Rate 120 H Respiratory Rate 18 Blood Pressure 130/88 H Blood Pressure Mean 102 Pulse Ox 98 Oxygen Delivery Method Room Air Positive well nourished and well developed General Appearance ED: well developed HEENT Reports moist mucous membranes Eyes PERRL and EOMs intact bilaterally Neck supple Resp normal respiratory effort and clear to auscultation bilaterally Cardio regular rate and regular rhythm GI normal to inspection, nondistended, normoactive bowel sounds and soft to palpation Back/Spine Back/Spine Narrative: Reproducible tenderness in the left low lumbar paraspinal muscles and over the left sciatic notch. Extremity normal to inspection Neuro Neuro Narrative: Good strength on testing in the lower extremities. Strong and equal distal pulses. Psych mental status grossly normal Skin no rashes or lesions noted MDM MDM Treatment and Re-Evaluation Narrative: With no recent injury do not believe imaging will be beneficial. Patient's had no fevers and has no red flag warnings. She will be treated with Naprosyn, [place], Flexeril, prednisone. We did discuss the fact that the steroids will increase her blood sugars. She has a sliding scale to use her insulin. She will keep a close eye on her blood sugars. Return instructions provided. Discharge Plan Triage Chief Complaint: Back ED Provider: Aneta George Dx/Rx/DC Orders Clinical Impression: Sciatica Instructions: ED Sciatica Prescriptions: New naproxen [Naprosyn] 500 mg tablet 500 mg PO BID PRN (Reason: pain) Qty: 20 RF: 0 hydrocodone-acetaminophen 5-325 mg tablet 1 tab PO Q6H PRN (Reason: pain) 3 Days Qty: 10 RF: 0 prednisone 20 mg tablet 40 mg PO DAILY Qty: 10 RF: 0 cyclobenzaprine 10 mg tablet 10 mg PO BID PRN (Reason: muscle spasm) Qty: 10 RF: 0 No Action metformin 1,000 mg tablet 1,000 mg PO BID RF: 0 ondansetron HCl 8 mg tablet 8 mg PO Q8H RF: 0 cholecalciferol (vitamin D3) 1,250 mcg (50,000 unit) capsule 1,250 mcg PO QWEEK RF: 0 diphenhydramine HCl [Benadryl] 25 mg capsule 25 mg PO BID PRNRF: 0 levocetirizine [Xyzal] 5 mg tablet 5 mg PO QPM PRNRF: 0 ascorbic acid (vitamin C) 1,000 mg tablet 1 g PO DAILY RF: 0 gabapentin 600 mg Tablet 600 mg PO TID RF: 0 omeprazole 20 mg Capsule,Delayed Release(Dr/Ec) 20 mg PO DAILY RF: 0 lisinopril 2.5 mg Tablet 2.5 mg PO DAILY RF: 0 fenofibrate micronized 67 mg capsule 67 mg PO BID RF: 0 duloxetine 30 mg capsule,delayed release(DR/EC) 30 mg PO DAILY RF: 0 duloxetine 60 mg capsule,delayed release(DR/EC) 60 mg PO DAILY RF: 0 Acidophilus Ex Str (L. sporog) 35 million- 25 million cell tablet 1 tab PO DAILY RF: 0 aspirin 81 mg Tablet 81 mg PO DAILY RF: 0 insulin lispro [Humalog KwikPen Insulin] 100 unit/mL Insulin Pen 20 unit subcut TIDAC 30 Days Qty: 18 RF: 0 Lantus Solostar U-100 Insulin 100 unit/mL (3 mL) Insulin Pen 75 units subcut BID 30 Days Qty: 45 RF: 0 Primary Care Provider: Sapna Ray Referrals: Sapna Ray DO [Primary Care Provider] - 1 Week Activity Restrictions/Additional Instructions: As discussed, you can use Flexeril as a muscle relaxer instead of your Zanaflex. Please do not take the 2 together. After completing the course of Flexeril you can go back to your baseline Zanaflex. Disposition Disposition: Home, Self Care
[2021-07-09] MEDS: cycloBENZAPRine HCl 10 MG Tablet PO (20:51)
[2021-07-09] MEDS: HYDROcodone Bitartrate/Apap 5/325 Tablet PO (20:51)
[2021-07-09] MEDS: Naproxen 500 MG Tablet PO (20:51)
[2021-07-09] MEDS: predniSONE 20 MG Tablet 60 MG PO (20:52)
== END 2021-07-09 20:57 | disposition home or self-care (01) ==
PROVIDERS: Emergency Provider Emergency Medicine; PCP Family Medicine; Visit Provider Emergency Medicine
DX: M54.30 Sciatica, unspecified side (principal); Z86.16 Personal history of COVID-19; Z87.891 Personal history of nicotine dependence
CPT/HCPCS: 99283

== ENCOUNTER 2021-09-05 15:51 | Emergency (ER) | payer MEDICAID, SELFPAY ==
[2021-09-05 15:52] VITALS: BP 119/92; PULSE 152; RESP 18; TEMP 36.7; O2SAT 98; BMI 31.6
--- NOTE | 2021-09-05 16:19 | EX.ED.DYSGE1 ---
HPI History of Present Illness Chief Complaint: Lower Extremity Injury Informant: patient and spouse/S.O. Narrative Narrative: History of bilateral sciatica since April. Reports saw her PCP this past June was recommended physical therapy however due to pain did not go. She is seen in the ED since then. She states she was given Vicodin and naproxen. She follow-up with urgent care or stated continue Tylenol or Motrin. Reports made an appointment with pain management Dr. Reza seen 10 days ago reported needed MRI which is in the works. Told will need to fill his physical therapy prior to this. She does not provide any additional medications. She states she canceled all her appointments 2 days later. She is reporting increasing pain right hip down her right anterior thigh. No loss of bowel or bladder control. Last use of medications was yesterday. PFSH [facility] Medical History Abdominal panniculus, symptomatic [place] (acute kidney injury) Anxiety Arthritis Back problem Bursitis Carpal tunnel syndrome Depression Diabetes Diabetes mellitus Diabetes mellitus Excessive body weight loss Fibromyalgia Fibromyalgia Former smoker GERD (gastroesophageal reflux disease) Headache HLD (hyperlipidemia) Hypoxia Intertrigo Lumbar back pain Multiple falls Osteoarthritis Panniculitis Pneumonia due to COVID-19 virus Seasonal allergic conjunctivitis Sleep apnea ULCERS Vision problems Vitamin deficiency Home Medications gabapentin 600 mg PO TID 03/23/21 [History Last Taken 04/06/21] lisinopril 2.5 mg PO DAILY 03/23/21 [History Last Taken 04/06/21] omeprazole 20 mg PO DAILY 03/23/21 [History Last Taken 04/06/21] Acidophilus Ex Str (L. sporog) 1 tab PO DAILY 04/07/21 [History Last Taken Unknown] duloxetine 30 mg PO DAILY 04/07/21 [History Last Taken Unknown] duloxetine 60 mg PO DAILY 04/07/21 [History Last Taken Unknown] fenofibrate micronized 67 mg PO BID 04/07/21 [History Last Taken Unknown] aspirin 81 mg PO DAILY 04/19/21 [History Last Taken Unknown] insulin glargine [Lantus Solostar U-100 Insulin] 75 units SUBCUT BID 30 Days #45 ml 04/23/21 [Rx Last Taken Unknown] insulin lispro [Humalog KwikPen Insulin] 20 unit SUBCUT TIDAC 30 Days #18 ml 04/23/21 [Rx Last Taken Unknown] ascorbic acid (vitamin C) 1,000 mg tablet 1 g PO DAILY tab 05/22/21 [History Last Taken Unknown] cholecalciferol (vitamin D3) 1,250 mcg (50,000 unit) capsule 1,250 mcg PO QWEEK 05/22/21 [History Last Taken Unknown] diphenhydramine HCl 25 mg capsule 25 mg PO BID PRN cap 05/22/21 [History Last Taken Unknown] levocetirizine 5 mg tablet 5 mg PO QPM PRN 05/22/21 [History Last Taken Unknown] metformin 1,000 mg tablet 1,000 mg PO BID 05/22/21 [History Last Taken Unknown] ondansetron HCl 8 mg tablet 8 mg PO Q8H 05/22/21 [History Last Taken Unknown] cyclobenzaprine 10 mg PO BID PRN #10 tab 07/09/21 [Rx Last Taken Unknown] hydrocodone-acetaminophen 1 tab PO Q6H PRN 3 Days #10 tab 07/09/21 [Rx Last Taken Unknown] naproxen [Naprosyn] 500 mg PO BID PRN #20 tab 07/09/21 [Rx Last Taken Unknown] prednisone 40 mg PO DAILY #10 tab 07/09/21 [Rx Last Taken Unknown] oxycodone-acetaminophen [Percocet] 1 tab PO Q6H PRN 3 Days #12 tab 09/05/21 [Rx Last Taken Unknown] Allergy/AdvReac Type Severity Reaction Status Date / Time etodolac [From [facility]] Allergy Rash Verified 09/05/21 15:52 Family History Mother Arthritis Hypertension Melanoma Father Arthritis Bleeding disorder Diabetes Heart disease High cholesterol Son Kidney disease H/O psychiatric care Uncle Alcoholism Liver disease Grandmother Arthritis Cancer Lung cancer Sister Epilepsy Melanoma Skin cancer Aunt CVA (cerebral vascular accident) Surgical History H/O knee surgery History of carpal tunnel surgery History of hysterectomy Social History household members: none Smoking Status: Former smoker how long ago did patient quit smoking: Quit ~ 30 years prior. alcohol intake: current alcohol intake frequency: holidays/special occasions only substance use type: does not use ROS ROS ED Constitutional Constitutional ED: Denies chills, fever(s) or sweats Eyes Eyes: Denies change in vision ENT ENT ED: Denies dysphagia or sore throat Cardiovascular Cardiovascular: Denies chest pain, leg edema, palpitations or racing heartbeat Respiratory/Chest Respiratory/Chest: Denies cough, dyspnea or dyspnea on exertion Gastrointestinal Gastrointestinal: Denies abdominal pain, diarrhea, nausea or vomiting Genitourinary Genitourinary ED: Denies dysuria, hematuria or urinary frequency Musculoskeletal Musculoskeletal: Reports other Details: Right leg pain ; Denies back pain, extremity pain or neck pain Integumentary Denies rash or wounds Neurologic Neurologic: Denies headache(s), paresthesias or weakness EXAM Physical Exam Const Vital Signs: 09/05/21 15:52 Temperature 98.1 F Temperature Source Temporal Pulse Rate 152 H Respiratory Rate 18 Blood Pressure 119/92 H Blood Pressure Mean 101 Pulse Ox 98 Oxygen Delivery Method Room Air Positive well nourished and well developed Constitutional Narrative: Tearful during exam. General Appearance ED: well developed HEENT Reports moist mucous membranes normocephalic and atraumatic Eyes PERRL, EOMs intact bilaterally and conjunctivae normal General Eye ED: Yes normal appearance of both eyes Neck no lymphadenopathy and supple General: Negative for tenderness Chest Wall Chest: Negative for tenderness Resp normal respiratory effort and normal air movement Effort and Inspection: symmetric chest movement; Negative for respiratory distress Cardio regular rate, regular rhythm and no murmurs Peripheral Pulses: pulses 2+ throughout GI normal to inspection, nondistended, normoactive bowel sounds and non-tender Palpation: Negative for guarding or rebound tenderness present Back/Spine no CVA tenderness and no thoracic nor lumbar tenderness Back/Spine Narrative: No midline tenderness. Extremity normal to inspection Extremity Narrative: Right lower extremity tender along the anterior thigh there is no rash soft compartments. No deformities. Neuro vas intact distally. General Extremety ED: Yes tenderness; Negative for edema General Extremity: Negative for edema Neuro oriented x3 and no sensory deficits noted Sensorium / Orientation: awake and alert Skin no rashes or lesions noted and no wounds MDM MDM MDM Narrative Medical decision making narrative: Patient with no cauda equina symptoms, she does have sciatica symptoms been going on since April. She uses a walker. She saw pain management first time 10 days ago. She did not do physical therapy as planned with her PCP back in June. She is currently on gabapentin 600 mg 3 times daily. Patient was given naproxen in the ED 1 oral Percocet. She states she currently does not want to go back to pain management and has canceled her appointment. Discussed the prescriptions written she would likely be eliminated from their practice. She understands this. Prescription for Percocet for 12 tabs were written. She will follow-up with her PCP for continued treatment and therapy as planned. She understands this. She was tachycardic on arrival in the 150s EKG is obtained sinus and the rate of 120 she states this is her typical heart rate. With her stating this is baseline do not feel further work-up is required currently. Likely pain induced. All questions were answered. Lab Data Labs: Laboratory Results - last 24 hr 09/05/21 16:38 POC Glucose 201 H EKG Initial EKG: Comments: Sinus rate of [address] or T wave changes. No ST or T wave changes. Discharge Plan Triage Chief Complaint: Lower Extremity Injury ED Provider: Kvng Herrera Dx/Rx/DC Orders Clinical Impression: Sciatica of right side, Back pain Instructions: ED Sciatica Prescriptions: New oxycodone-acetaminophen [Percocet] 5-325 mg tablet 1 tab PO Q6H PRN (Reason: pain) 3 Days Qty: 12 RF: 0 No Action metformin 1,000 mg tablet 1,000 mg PO BID RF: 0 ondansetron HCl 8 mg tablet 8 mg PO Q8H RF: 0 cholecalciferol (vitamin D3) 1,250 mcg (50,000 unit) capsule 1,250 mcg PO QWEEK RF: 0 diphenhydramine HCl [Benadryl] 25 mg capsule 25 mg PO BID PRNRF: 0 levocetirizine [Xyzal] 5 mg tablet 5 mg PO QPM PRNRF: 0 ascorbic acid (vitamin C) 1,000 mg tablet 1 g PO DAILY RF: 0 gabapentin 600 mg Tablet 600 mg PO TID RF: 0 omeprazole 20 mg Capsule,Delayed Release(Dr/Ec) 20 mg PO DAILY RF: 0 lisinopril 2.5 mg Tablet 2.5 mg PO DAILY RF: 0 fenofibrate micronized 67 mg capsule 67 mg PO BID RF: 0 duloxetine 30 mg capsule,delayed release(DR/EC) 30 mg PO DAILY RF: 0 duloxetine 60 mg capsule,delayed release(DR/EC) 60 mg PO DAILY RF: 0 Acidophilus Ex Str (L. sporog) 35 million- 25 million cell tablet 1 tab PO DAILY RF: 0 aspirin 81 mg Tablet 81 mg PO DAILY RF: 0 insulin lispro [Humalog KwikPen Insulin] 100 unit/mL Insulin Pen 20 unit subcut TIDAC 30 Days Qty: 18 RF: 0 Lantus Solostar U-100 Insulin 100 unit/mL (3 mL) Insulin Pen 75 units subcut BID 30 Days Qty: 45 RF: 0 naproxen [Naprosyn] 500 mg tablet 500 mg PO BID PRN (Reason: pain) Qty: 20 RF: 0 hydrocodone-acetaminophen 5-325 mg tablet 1 tab PO Q6H PRN (Reason: pain) 3 Days Qty: 10 RF: 0 prednisone 20 mg tablet 40 mg PO DAILY Qty: 10 RF: 0 cyclobenzaprine 10 mg tablet 10 mg PO BID PRN (Reason: muscle spasm) Qty: 10 RF: 0 Primary Care Provider: Sapna Ray Referrals: Sapna Ray DO [Primary Care Provider] - 2 Days Disposition Disposition: Home, Self Care Discharge Date/Time: 09/05/21 18:18
--- NOTE | 2021-09-05 16:21 | EKG12_ITS ---
Test Reason : WEAKNESS Blood Pressure : / mmHG Vent. Rate : 126 BPM Atrial Rate : 126 BPM P-R Int : 132 ms QRS Dur : 074 ms QT Int : 322 ms P-R-T Axes : 069 -09 060 degrees QTc Int : 466 ms Sinus tachycardia Inferior infarct , age undetermined Abnormal ECG Confirmed by FREEMAN CORONADO, MARTÍN ([id number]), make up editor CORINNA BRAVO ([id number]) on 09/09/2021 12:51:25 PM Referred By: VAHID Confirmed By:MARTÍN MILLARD MD
[2021-09-05] MEDS: oxyCODONE 5 MG Tablet PO (16:35)
[2021-09-05] MEDS: Naproxen 500 MG Tablet PO (16:35)
[2021-09-05 16:40] LABS: Bedside Glucose 201 mg/dL (74-106)
== END 2021-09-05 18:18 | disposition home or self-care (01) ==
PROVIDERS: Emergency Provider Emergency Medicine; PCP Family Medicine; Visit Provider Emergency Medicine
DX: M54.31 Sciatica, right side (principal); G47.30 Sleep apnea, unspecified; Z87.891 Personal history of nicotine dependence
CPT/HCPCS: 82962; 93005; 99283

== ENCOUNTER → 2021-09-18 | Outpatient (CLI) | payer MEDICAID, SELFPAY ==
--- NOTE | 2021-09-18 14:48 | RAD_ITS ---
STUDY: X-RAY - LUMBAR SPINE REASON FOR EXAM: Female, 51 years old. PAIN TECHNIQUE: 5 view(s) of the lumbar spine were obtained including oblique views. COMPARISON: None FINDINGS: Normal lumbar lordosis. There is no substantial scoliosis. There is a normal alignment of the vertebrae. There is a mild degree of endplate spondylosis of the lumbar vertebrae. Moderate degree of disc space narrowing at the L5-S1 level. The soft tissue structures are unremarkable. RAD/L/S Spine Min 4 Views IMPRESSION: Degenerative changes of the spine, as detailed above. Electronically Signed: Carlos Pimentel MD at 15:36 EDT ,
--- NOTE | 2021-09-18 14:48 | RAD_ITS ---
STUDY: X-RAY - SACRUM/COCCYX REASON FOR EXAM: Female, 51 years old. Chronic low back pain extending into the right hip and right leg. TECHNIQUE: 2 view(s) of the sacrum and coccyx were obtained. COMPARISON: None. FINDINGS: There is degenerative arthrosis of the bilateral sacroiliac joints. Normal visualized sacral ala and fused sacral bodies. Normal sacrococcygeal junction with a normal angulation. Normal coccygeal segments. The presacral soft tissue structures are unremarkable. RAD/Sacrum-Coccyx min 2 Views IMPRESSION: Mild arthrosis of the sacroiliac joints bilaterally. Electronically Signed: Carlos Pimentel MD at 15:27 EDT ,
--- NOTE | 2021-09-18 14:48 | RAD_ITS ---
STUDY: X-RAY - PELVIS AND BILATERAL HIPS REASON FOR EXAM: Female, 51 years old. PAIN TECHNIQUE: AP view of the pelvis.? 2 views of the right hip, and 2 views of the left hip were obtained. COMPARISON: None. FINDINGS: There is a non-specific bowel gas pattern. Normal visualized soft tissue structures. Normal bilateral iliac wings, sacroiliac joints and visualized sacrum. Normal bilateral superior and inferior pubic rami. Normal pubic symphysis. Normal bilateral ischial tuberosities. Normal visualized right femoral head. Normal right acetabulum. There is mild articular joint space narrowing of the right hip. Normal visualized left femoral head. Normal left acetabulum. There is mild articular joint space narrowing of the left hip. RAD/Hips B/L min 2 views w/ Pelvis IMPRESSION: Mild degree of the joint space narrowing of the hip joints bilaterally. Electronically Signed: Carlos Pimentel MD at 15:30 EDT ,
[2021-09-18 17:31] LABS: Absolute Lymphocyte Count 2.61 X10^3/uL (0.83-4.51); Absolute Neutrophil Count 5.1 X10^3/uL (2.0-7.7); Basophil# 0.04 X10^3/uL; Basophil% 0.5 % (0-1); Eosinophil# 0.18 X10^3/uL; Hematocrit 38.3 % (37-47); Hemoglobin 12.9 g/dL (12.0-15.0); Lymphocyte # 2.61 X10^3/ul (0.83-4.51); Lymphocyte % 29.6 % (19-41); Mean Corp Hgb Conc 33.7 g/dL (32-36); Mean Corpuscular Hgb 29.6 pg (27.0-32.0); Mean Corpuscular Volume 87.8 fL (81-99); Mean Platelet Vol. 9.6 fl (6.2-12.0); Monocyte# 0.88 X10^3/uL; NRBC Flagged by Analyzer 0 % (0-5); Neutrophil # 5.06 X10^3/uL (2.7-7.7); Neutrophil % 57.4 % (47-70); Platelet Count 265 K/mm3 (150-450); RBC Distribution Width CV 13.2 % (11.6-14.6); RBC Distribution Width SD 42.5 fl (35.1-43.9); Red Blood Count 4.36 M/mm3 (4.2-5.4); White Blood Count 8.8 K/mm3 (4.4-11.0)
[2021-09-18 17:58] LABS: Erythrocyte Sedimentation Rate 28 mm/hr (0-30)
[2021-09-18 18:03] LABS: ALB/GLOB Ratio 0.9 RATIO (0.9-2.4); AST(SGOT) 17 U/L (15-37); Alanine Aminotransfer ALT/SGPT 29 U/L (13-56); Albumin, Serum 3.5 g/dL (3.2-5.0); Alkaline Phosphatase 45 U/L (45-117); Anion Gap 9 (5-15); BUN 37 mg/dL (7-18); BUN/Creat Ratio 38.5 RATIO (10-20); CRP 3.35 mg/L (0.0-3.0); Calcium,Total 9.9 mg/dL (8.5-10.1); Chloride 107 mmol/L (98-107); Creatinine, Serum 0.96 mg/dL (0.55-1.02); EST Glomerular Filtration Rate 65 mL/min (>60); Est Glom Filt Rate - Afr Amer 79 mL/min (>60); Globulin 3.8 g/dL (2.2-4.2); Glucose 86 mg/dL (74-106); LDH 172 U/L (84-246); Potassium 4.6 mmol/L (3.5-5.1); Protein, Total 7.3 g/dL (6.4-8.2); Sodium Level 140 mmol/L (136-145)
== END | disposition home or self-care (01) ==
LOC: MTRAD 14:36
PROVIDERS: PCP Family Medicine; Referring Provider Family Medicine; Visit Provider Family Medicine
DX: M79.604 Pain in right leg (principal); M25.50 Pain in unspecified joint; M54.16 Radiculopathy, lumbar region; M54.9 Dorsalgia, unspecified; R29.898 Other symptoms and signs involving the musculoskeletal system; M53.3 Sacrococcygeal disorders, not elsewhere classified; Z51.81 Encounter for therapeutic drug level monitoring
CPT/HCPCS: 36415; 72110; 72220; 73521; 80053; 83615; 84550; 85025; 85652; 86140

== ENCOUNTER 2021-10-30 12:35 | Emergency (ER) | payer MEDICAID, SELFPAY ==
[2021-10-30 12:36] VITALS: BP 75/52; PULSE 88; RESP 15; TEMP 36.4; O2SAT 100; BMI 31.8
--- NOTE | 2021-10-30 12:55 | EKG12_ITS ---
Test Reason : Hypertension Blood Pressure : / mmHG Vent. Rate : 092 BPM Atrial Rate : 092 BPM P-R Int : 130 ms QRS Dur : 074 ms QT Int : 362 ms P-R-T Axes : -22 -11 149 degrees QTc Int : 447 ms Normal sinus rhythm T wave abnormality, consider lateral ischemia Abnormal ECG Confirmed by CORIE CORONADO, RAMSES ([id number]), department editor CORINNA BRAVO ([id number]) on 11/04/2021 11:07:30 AM Referred By: Sharon Confirmed By:MICHELL FONTENOT MD
[2021-10-30 12:56] VITALS: BP 88/47; PULSE 94; RESP 18; O2SAT 98
[2021-10-30] MEDS: 0.9% Normal Saline 1,000 ML 1000 ML IV (12:57)
[2021-10-30 13:08] LABS: Absolute Lymphocyte Count 2.85 X10^3/uL (0.83-4.51); Absolute Neutrophil Count 3.9 X10^3/uL (2.0-7.7); Basophil# 0.02 X10^3/uL; Basophil% 0.3 % (0-1); Eosinophil# 0.15 X10^3/uL; Eosinophils% 1.9 % (0-5); Hematocrit 34.8 % (37-47); Hemoglobin 11.6 g/dL (12.0-15.0); Lymphocyte # 2.85 X10^3/ul (0.83-4.51); Lymphocyte % 36.9 % (19-41); Mean Corp Hgb Conc 33.3 g/dL (32-36); Mean Corpuscular Hgb 29.4 pg (27.0-32.0); Mean Corpuscular Volume 88.3 fL (81-99); Mean Platelet Vol. 9.5 fl (6.2-12.0); Monocyte% 9.1 % (0-10); NRBC Flagged by Analyzer 0 % (0-5); Neutrophil # 3.94 X10^3/uL (2.7-7.7); Platelet Count 244 K/mm3 (150-450); RBC Distribution Width CV 13.4 % (11.6-14.6); Red Blood Count 3.94 M/mm3 (4.2-5.4); White Blood Count 7.7 K/mm3 (4.4-11.0)
[2021-10-30 13:16] LABS: Bedside Glucose 203 mg/dL (74-106)
[2021-10-30 13:24] LABS: ALB/GLOB Ratio 1.1 RATIO (0.9-2.4); AST(SGOT) 15 U/L (15-37); Alanine Aminotransfer ALT/SGPT 25 U/L (13-56); Albumin, Serum 3.5 g/dL (3.2-5.0); Alkaline Phosphatase 44 U/L (45-117); Anion Gap 7 (5-15); BUN 33 mg/dL (7-18); BUN/Creat Ratio 24.1 RATIO (10-20); Calcium,Total 9.3 mg/dL (8.5-10.1); Chloride 105 mmol/L (98-107); Creatinine, Serum 1.37 mg/dL (0.55-1.02); EST Glomerular Filtration Rate 43 mL/min (>60); Est Glom Filt Rate - Afr Amer 52 mL/min (>60); Estimated Creatinine Clearance 44.21 ml/min; Globulin 3.3 g/dL (2.2-4.2); Glucose 199 mg/dL (74-106); Potassium 4.1 mmol/L (3.5-5.1); Protein, Total 6.8 g/dL (6.4-8.2); Sodium Level 138 mmol/L (136-145)
[2021-10-30 13:40] VITALS: BP 107/61; PULSE 85; RESP 16; O2SAT 100
[2021-10-30 13:57] LABS: Mucous, Urine 0 SEEN /hpf (<or=2+); Red Blood Cells-Urine 0 SEEN /hpf (0-5)
[2021-10-30 14:03] LABS: Color, Urine Yellow (Yellow); Glucose, Dipstick 50 mg/dl (Normal); Ketone-Dipstick 5 mg/dl (Negative); Leukocyte Esterase-Dipstick 25 /ul (Negative); Nitrite-Dipstick Negative (Negative); Occult Blood-Urine Negative /ul (Negative); Protein-Dipstick 30 mg/dl (Negative); Urine Bilirubin Dipstick Negative (Negative); Urine Clarity Sl. Cloudy (Clear); Urine Urobilinogen Normal (Normal)
[2021-10-30 14:10] LABS: Bacteria 1+ /hpf (None Seen); Squamous Epithelial Cells - UA 0-5 SEEN /hpf (5-10); White Blood Cells 0-5 SEEN /hpf (0-5)
[2021-10-30 15:00] VITALS: BP 135/68; PULSE 91; RESP 19; O2SAT 100
--- NOTE | 2021-10-30 15:30 | EX.ED.DYSGE1 ---
HPI History of Present Illness Chief Complaint: Hypotension Informant: patient Narrative Narrative: Patient presenting with weakness starting since yesterday. Patient diabetes with fibromyalgia. 2 weeks ago had Relafen added due to her fibromyalgia pains. Denies any vomiting or diarrhea however admits to drinking less fluids over the past 2 days due to discomfort and pain. Denies fever cough. Denies urinary symptoms. She takes lisinopril 2.5 mg for renal protection. She has checked her blood glucose, today had lightheaded symptoms therefore checked her blood pressure. Stating her blood pressure 60/40 at home. Denies chest or abdominal pain. [facility] Medical History Abdominal panniculus, symptomatic [place] (acute kidney injury) Anxiety Arthritis Back problem Bursitis Carpal tunnel syndrome Depression Diabetes Diabetes mellitus Diabetes mellitus Excessive body weight loss Fibromyalgia Fibromyalgia Former smoker GERD (gastroesophageal reflux disease) Headache HLD (hyperlipidemia) Hypoxia Intertrigo Lumbar back pain Multiple falls Osteoarthritis Panniculitis Pneumonia due to COVID-19 virus Seasonal allergic conjunctivitis Sleep apnea ULCERS Vision problems Vitamin deficiency Home Medications gabapentin 600 mg tablet 600 mg PO TID nerve pain 03/23/21 [History Last Taken 04/06/21] omeprazole 20 mg capsule,delayed release 20 mg PO DAILY gerd 03/23/21 [History Last Taken 04/06/21] acidophilus-sporogenes 35 million-25 million cell tablet (Acidophilus Ex Str (L. sporog)) 2 tab PO BID GI 04/07/21 [History Last Taken Unknown] duloxetine 60 mg capsule,delayed release 60 mg PO BID depression 04/07/21 [History Last Taken Unknown] fenofibrate micronized 67 mg capsule 67 mg PO BID HLD 04/07/21 [History Last Taken Unknown] aspirin 81 mg tablet 81 mg PO DAILY heart health 04/19/21 [History Last Taken Unknown] insulin lispro 100 unit/mL subcutaneous pen (Humalog KwikPen (U-100) Insulin) 20 unit (0.2 mL) subcut TIDAC 30 days #18 mL 04/23/21 [Rx Last Taken Unknown] cholecalciferol (vitamin D3) 1,250 mcg (50,000 unit) capsule 1,250 mcg PO QWEEK 05/22/21 [History Last Taken Unknown] diphenhydramine HCl 25 mg capsule (Benadryl) 50 mg PO BID PRN Itching 05/22/21 [History Last Taken Unknown] levocetirizine 5 mg tablet (Xyzal) 5 mg PO QPM PRN allergies 05/22/21 [History Last Taken Unknown] metformin 1,000 mg tablet 1,000 mg PO BID 05/22/21 [History Last Taken Unknown] ondansetron HCl 8 mg tablet 8 mg PO Q8H PRN Nausea 05/22/21 [History Last Taken Unknown] nabumetone 750 mg tablet 750 mg PO BID 10/23/21 [History Last Taken Unknown] insulin glargine 100 unit/mL (3 mL) subcutaneous pen (Lantus Solostar U-100 Insulin) 50 - 75 units subcut BID 10/30/21 [History Last Taken Unknown] oxycodone-acetaminophen 5 mg-325 mg tablet (Percocet) 1 tab PO BID PRN Pain 10/30/21 [History Last Taken Unknown] tizanidine 6 mg capsule 6 mg PO TID PRN muscle spasms 10/30/21 [History Last Taken Unknown] Allergy/AdvReac Type Severity Reaction Status Date / Time etodolac [From [facility]] Allergy Rash Verified 10/30/21 12:36 Family History Mother Arthritis Hypertension Melanoma Father Arthritis Bleeding disorder Diabetes Heart disease High cholesterol Son Kidney disease H/O psychiatric care Uncle Alcoholism Liver disease Grandmother Arthritis Cancer Lung cancer Sister Epilepsy Melanoma Skin cancer Aunt CVA (cerebral vascular accident) Surgical History H/O knee surgery History of carpal tunnel surgery History of hysterectomy Social History household members: none Smoking Status: Former smoker how long ago did patient quit smoking: Quit ~ 30 years prior. alcohol intake: current alcohol intake frequency: holidays/special occasions only substance use type: does not use ROS ROS ED Constitutional Constitutional ED: Denies chills, fever(s) or sweats Eyes Eyes: Denies change in vision ENT ENT ED: Denies dysphagia or sore throat Cardiovascular Cardiovascular: Denies chest pain, leg edema, palpitations or racing heartbeat Respiratory/Chest Respiratory/Chest: Denies cough, dyspnea or dyspnea on exertion Gastrointestinal Gastrointestinal: Denies abdominal pain, diarrhea, nausea or vomiting Genitourinary Genitourinary ED: Denies dysuria, hematuria or urinary frequency Musculoskeletal Musculoskeletal: Denies back pain, extremity pain or neck pain Integumentary Denies rash or wounds Neurologic Neurologic: Denies headache(s), paresthesias or weakness EXAM Physical Exam Const Vital Signs: 10/30/21 12:36 10/30/21 12:55 10/30/21 12:56 Temperature 97.5 F L Temperature Source Temporal Pulse Rate 88 94 Respiratory Rate 15 18 Respiratory Effort Normal Non-Labored Respiratory Pattern Normal Blood Pressure 75/52 L 88/47 L Blood Pressure Mean 59 60 Pulse Ox 100 98 Oxygen Delivery Method Room Air Room Air 10/30/21 13:40 10/30/21 15:00 10/30/21 15:41 Temperature Temperature Source Pulse Rate 85 91 Respiratory Rate 16 19 H Respiratory Effort Respiratory Pattern Blood Pressure 107/61 135/68 H 132/75 H Blood Pressure Mean 76 90 Pulse Ox 100 100 Oxygen Delivery Method Room Air Room Air Positive well nourished and well developed General Appearance ED: well developed and NAD HEENT Reports dry mucous membranes normocephalic and atraumatic Mouth ED: Yes dry mucous membranes Mouth: dry mucous membranes Eyes PERRL, EOMs intact bilaterally and conjunctivae normal General Eye ED: Yes normal appearance of both eyes Neck no lymphadenopathy and supple General: Negative for tenderness Chest Wall Chest: Negative for tenderness Resp normal respiratory effort and normal air movement Effort and Inspection: symmetric chest movement; Negative for respiratory distress Cardio regular rate, regular rhythm and no murmurs Peripheral Pulses: pulses 2+ throughout GI normal to inspection, nondistended, normoactive bowel sounds and non-tender Palpation: Negative for guarding or rebound tenderness present Back/Spine no CVA tenderness and no thoracic nor lumbar tenderness Extremity normal to inspection General Extremety ED: Negative for edema or tenderness General Extremity: Negative for edema Neuro oriented x3 and no sensory deficits noted Sensorium / Orientation: awake and alert Skin no rashes or lesions noted and no wounds MDM MDM MDM Narrative Medical decision making narrative: Blood pressure arrival 75/52. Dry mucosal membranes. EKG sinus rhythm T wave inversions lateral leads. Patient without any chest pains. Patient blood pressure responded to IV fluids. Labs normal he will 11.6. Creatinine 1.37 up from 0.96 a month ago. With her decreased p.o. intake likely prerenal. Improving symptoms on reevaluation. Discussed with patient holding her Relafen due to renal sufficiency she will use Tylenol. She will follow with her PCP for recheck as an outpatient with labs. Return precautions. UA negative COVID-negative. All questions were answered. Lab Data Attestation: I reviewed the patient's lab results. Labs: Laboratory Results - last 24 hr 10/30/21 10/30/21 10/30/21 12:54 12:54 12:54 WBC 7.7 RBC 3.94 L Hgb 11.6 L Hct 34.8 L MCV 88.3 MCH 29.4 MCHC 33.3 RDW Std Deviation 43.0 RDW Coeff of Elio 13.4 Plt Count 244 MPV 9.5 Immature Gran % (Auto) 0.800 Neut % (Auto) 51.0 Lymph % (Auto) 36.9 [place] % (Auto) 9.1 Eos % (Auto) 1.9 Baso % (Auto) 0.3 Absolute Neuts (auto) 3.9 Absolute Lymphs (auto) 2.85 Nucleated RBC % 0 Sodium 138 Potassium 4.1 Chloride 105 Carbon Dioxide 26.0 Anion Gap 7 BUN 33 H Creatinine 1.37 H Estim Creat Clear Calc 44.21 Est GFR (MDRD) Af Amer 52 L Est GFR (MDRD) Non-Af 43 L BUN/Creatinine Ratio 24.1 H Glucose 199 H Calcium 9.3 Total Bilirubin 0.50 AST 15 ALT 25 Alkaline Phosphatase 44 L Total Protein 6.8 Albumin 3.5 Globulin 3.3 Albumin/Globulin Ratio 1.1 Urine Color Urine Clarity Urine pH Ur Specific [place] Urine Protein Urine Glucose (UA) Urine Ketones Urine Occult Blood Urine Nitrite Urine Bilirubin Urine Urobilinogen Ur Leukocyte Esterase Urine RBC Urine WBC Ur Squamous Epith Cells Urine Bacteria Urine Mucus POC Glucose 203 H 10/30/21 13:50 WBC RBC Hgb Hct MCV MCH MCHC RDW Std Deviation RDW Coeff of Elio Plt Count MPV Immature Gran % (Auto) Neut % (Auto) Lymph % (Auto) [place] % (Auto) Eos % (Auto) Baso % (Auto) Absolute Neuts (auto) Absolute Lymphs (auto) Nucleated RBC % Sodium Potassium Chloride Carbon Dioxide Anion Gap BUN Creatinine Estim Creat Clear Calc Est GFR (MDRD) Af Amer Est GFR (MDRD) Non-Af BUN/Creatinine Ratio Glucose Calcium Total Bilirubin AST ALT Alkaline Phosphatase Total Protein Albumin Globulin Albumin/Globulin Ratio Urine Color Yellow Urine Clarity Sl. Cloudy Urine pH 6.0 Ur Specific [place] 1.020 Urine Protein 30 H Urine Glucose (UA) 50 H Urine Ketones 5 H Urine Occult Blood Negative Urine Nitrite Negative Urine Bilirubin Negative Urine Urobilinogen Normal Ur Leukocyte Esterase 25 H Urine RBC 0 SEEN Urine WBC 0-5 SEEN Ur Squamous Epith Cells 0-5 SEEN Urine Bacteria 1+ Urine Mucus 0 SEEN POC Glucose EKG Initial EKG: Attestation: I personally reviewed and interpreted this EKG as follows: Comments: Patient sinus rate of 92, no ST changes there is T wave inversions on the lateral leads. Discharge Plan Triage Chief Complaint: Hypotension ED Provider: Kvng Herrera Dx/Rx/DC Orders Clinical Impression: Dehydration, Acute renal insufficiency, Transient hypotension, Weakness Instructions: ED Dehydration (Adult), ED Renal Insufficiency Prescriptions: No Action metformin 1,000 mg tablet 1,000 mg PO BID ondansetron HCl 8 mg tablet 8 mg PO Q8H PRN (Reason: Nausea) cholecalciferol (vitamin D3) 1,250 mcg (50,000 unit) capsule 1,250 mcg PO QWEEK diphenhydramine HCl [Benadryl] 25 mg capsule 50 mg PO BID PRN (Reason: Itching) levocetirizine [Xyzal] 5 mg tablet 5 mg PO QPM PRN (Reason: allergies) nabumetone 750 mg tablet 750 mg PO BID Label Comments: TAKE ONE TABLET BY MOUTH TWICE DAILY gabapentin 600 mg Tablet 600 mg PO TID omeprazole 20 mg Capsule,Delayed Release(Dr/Ec) 20 mg PO DAILY fenofibrate micronized 67 mg capsule 67 mg PO BID duloxetine 60 mg capsule,delayed release(DR/EC) 60 mg PO BID Acidophilus Ex Str (L. sporog) 35 million- 25 million cell tablet 2 tab PO BID aspirin 81 mg Tablet 81 mg PO DAILY insulin lispro [Humalog KwikPen Insulin] 100 unit/mL Insulin Pen 20 unit subcut TIDAC 30 Days Qty: 18 0RF tizanidine 6 mg Capsule 6 mg PO TID PRN (Reason: muscle spasms) insulin glargine [Lantus Solostar U-100 Insulin] 100 unit/mL (3 mL) insulin pen 50 - 75 units subcut BID oxycodone-acetaminophen [Percocet] 5-325 mg tablet 1 tab PO BID PRN (Reason: Pain) Primary Care Provider: Sapna Ray Referrals: Sapna Ray DO [Primary Care Provider] - 3-5 Days Activity Restrictions/Additional Instructions: Your blood pressure improved with IV fluids. Your creatinine 1.36 today your previous 0.96 over a month ago. Continue oral fluids at home. You may want to hold your Relafen and use Tylenol as needed for pain. Follow-up with your doctor recheck labs as an outpatient. Disposition Disposition: Home, Self Care Discharge Date/Time: 10/30/21 15:41
[2021-10-30 15:41] VITALS: BP 132/75
== END 2021-10-30 15:41 | disposition home or self-care (01) ==
PROVIDERS: Emergency Provider Emergency Medicine; PCP Family Medicine; Visit Provider Emergency Medicine
DX: E86.0 Dehydration (principal); E11.9 Type 2 diabetes mellitus without complications; Z79.4 Long term (current) use of insulin; N28.9 Disorder of kidney and ureter, unspecified; I95.9 Hypotension, unspecified; R53.1 Weakness; G47.30 Sleep apnea, unspecified; E55.9 Vitamin D deficiency, unspecified; K21.9 Gastro-esophageal reflux disease without esophagitis; Z79.82 Long term (current) use of aspirin; Z79.84 Long term (current) use of oral hypoglycemic drugs; Z79.899 Other long term (current) drug therapy; Z86.16 Personal history of COVID-19; Z87.891 Personal history of nicotine dependence
CPT/HCPCS: 80053; 81001; 82962; 85025; 87811; 93005; 96360; 99284; J7030; A4216

== ENCOUNTER → 2021-12-18 | Outpatient (CLI) | payer MEDICAID, SELFPAY ==
--- NOTE | 2021-12-18 17:52 | MRI_ITS ---
STUDY: MRI LUMBAR SPINE WITHOUT CONTRAST REASON FOR EXAM: Female, 51 years old. pain lbp, hip pain, leg numbness, hx of multiple falls TECHNIQUE: Standardized fat and water weighted pulse sequences were obtained in the sagittal and axial planes. COMPARISON: X-ray the lumbar spine dated March 08, 2020 FINDINGS: Normal lumbar lordosis. There is no substantial scoliosis. Normal conus medullaris that terminates at the L1 level. No marrow edema or fracture or compression deformity is seen. T12-L1: Normal disc height, hydration and morphology. Normal bilateral facet joints. Normal central canal and bilateral lateral recesses. Normal bilateral intervertebral neural foramina. L1-2: Normal disc height and morphology. Diffuse disc desiccation. Normal bilateral facet joints. Normal central canal and bilateral lateral recesses. Normal bilateral intervertebral neural foramina. L2-3: Normal disc height, hydration and morphology. Normal bilateral facet joints. Normal central canal and bilateral lateral recesses. Normal bilateral intervertebral neural foramina. L3-4: Normal disc height and morphology. Diffuse disc desiccation. Mild facet joint hypertrophy. Normal central canal and bilateral lateral recesses. Normal bilateral intervertebral neural foramina. L4-5: Diffuse disc desiccation. Mild posterior disc space narrowing is present as well as a shallow right paracentral/proximal foraminal disc protrusion. A small annular tear is also present at posterior aspect of the disc. Normal bilateral facet joints. Normal central canal and bilateral lateral recesses. Normal bilateral intervertebral neural foramina. L5-S1: Diffuse disc desiccation with mild posterior disc space narrowing in addition to a small midline disc protrusion and mild central canal stenosis. Normal bilateral facet joints. Normal bilateral intervertebral neural foramina. Normal visualized sacral ala. There is mild paraspinal muscular atrophy. MRI/Spine Lumbar (Routine) IMPRESSION: 1. Multilevel degenerative changes, as described above. 2. Shallow right paracentral disc protrusion and posterior annular tear of the disc at L4-L5 Electronically Signed: Phong Delaney MD at 13:59 EDT ,
== END | disposition home or self-care (01) ==
LOC: MRI 17:52
PROVIDERS: PCP Family Medicine; Visit Provider Orthopaedic Surgery
DX: M54.31 Sciatica, right side (principal)
CPT/HCPCS: 72148

== ENCOUNTER → 2022-01-28 | Outpatient (CLI) | payer MEDICAID, SELFPAY | END | disposition home or self-care (01) | LOC: LAB.FUTURE 11:02 | PROVIDERS: PCP Family Medicine; Visit Provider Family Medicine | DX: Z00.00 Encounter for general adult medical examination without abnormal findings (principal) ==

== ENCOUNTER 2022-03-30 13:48 | Emergency (ER) | payer MEDICAID, SELFPAY ==
[2022-03-30] VITALS (8 sets, daily range): BP systolic 68–118; BP diastolic 50–71; PULSE 77–91; RESP 12–16; TEMP 35.8–36.6; O2SAT 92–100; BMI 31.9
--- NOTE | 2022-03-30 14:03 | EX.ED.DYSGE1 ---
HPI History of Present Illness Chief Complaint: Syncope Informant: family Narrative Narrative: Patient here with her sons brought in by private vehicle syncopal episode at home. She was making food sitting down approximately an hour ago head was slumped over and she passed out. She denies any pains. She is a diabetic. She was normal prior to this per this sons. No cough. No recent vomiting diarrhea. Reports has been drinking fluids. She has had DKA in the past she is on insulin. Denies urinary symptoms. Prior similar symptoms: Yes PFSH PFSH Medical History Abdominal panniculus, symptomatic BERKLEY (acute kidney injury) Anxiety Arthritis Back problem Bursitis Carpal tunnel syndrome Depression Diabetes Diabetes mellitus Diabetes mellitus Excessive body weight loss Fibromyalgia Fibromyalgia Former smoker GERD (gastroesophageal reflux disease) Headache HLD (hyperlipidemia) Hypoxia Intertrigo Lumbar back pain Multiple falls Osteoarthritis Panniculitis Pneumonia due to COVID-19 virus Seasonal allergic conjunctivitis Sleep apnea ULCERS Vision problems Vitamin deficiency Home Medications gabapentin 600 mg tablet 600 mg PO TID nerve pain 03/23/21 [History Last Taken 04/06/21] omeprazole 20 mg capsule,delayed release 20 mg PO DAILY gerd 03/23/21 [History Last Taken 04/06/21] acidophilus-sporogenes 35 million-25 million cell tablet (Acidophilus Ex Str (L. sporog)) 2 tab PO BID GI 04/07/21 [History Last Taken Unknown] duloxetine 60 mg capsule,delayed release 60 mg PO BID depression 04/07/21 [History Last Taken Unknown] fenofibrate micronized 67 mg capsule 67 mg PO BID HLD 04/07/21 [History Last Taken Unknown] aspirin 81 mg tablet 81 mg PO DAILY heart health 04/19/21 [History Last Taken Unknown] insulin lispro 100 unit/mL subcutaneous pen (Humalog KwikPen (U-100) Insulin) 20 unit (0.2 mL) subcut TIDAC 30 days #18 mL 04/23/21 [Rx Last Taken Unknown] cholecalciferol (vitamin D3) 1,250 mcg (50,000 unit) capsule 1,250 mcg PO QWEEK 05/22/21 [History Last Taken Unknown] diphenhydramine HCl 25 mg capsule (Benadryl) 50 mg PO BID PRN Itching 05/22/21 [History Last Taken Unknown] levocetirizine 5 mg tablet (Xyzal) 5 mg PO QPM PRN allergies 05/22/21 [History Last Taken Unknown] metformin 1,000 mg tablet 1,000 mg PO BID 05/22/21 [History Last Taken Unknown] ondansetron HCl 8 mg tablet 8 mg PO Q8H PRN Nausea 05/22/21 [History Last Taken Unknown] nabumetone 750 mg tablet 750 mg PO BID 10/23/21 [History Last Taken Unknown] insulin glargine 100 unit/mL (3 mL) subcutaneous pen (Lantus Solostar U-100 Insulin) 50 - 75 units subcut BID 10/30/21 [History Last Taken Unknown] oxycodone-acetaminophen 5 mg-325 mg tablet (Percocet) 1 tab PO BID PRN Pain 10/30/21 [History Last Taken Unknown] tizanidine 6 mg capsule 6 mg PO TID PRN muscle spasms 10/30/21 [History Last Taken Unknown] Allergy/AdvReac Type Severity Reaction Status Date / Time etodolac [From [facility]] Allergy Rash Verified 03/30/22 13:49 Family History Mother Arthritis Hypertension Melanoma Father Arthritis Bleeding disorder Diabetes Heart disease High cholesterol Son Kidney disease H/O psychiatric care Uncle Alcoholism Liver disease Grandmother Arthritis Cancer Lung cancer Sister Epilepsy Melanoma Skin cancer Aunt CVA (cerebral vascular accident) Surgical History H/O knee surgery History of carpal tunnel surgery History of hysterectomy Social History household members: none Smoking Status: Former smoker how long ago did patient quit smoking: Quit ~ 30 years prior. alcohol intake: current alcohol intake frequency: holidays/special occasions only substance use type: does not use ROS ROS ED Constitutional Constitutional ED: Denies chills, fever(s) or sweats Eyes Eyes: Denies change in vision ENT ENT ED: Denies dysphagia or sore throat Cardiovascular Cardiovascular: Denies chest pain, leg edema, palpitations or racing heartbeat Respiratory/Chest Respiratory/Chest: Denies cough, dyspnea or dyspnea on exertion Gastrointestinal Gastrointestinal: Denies abdominal pain, diarrhea, nausea or vomiting Genitourinary Genitourinary ED: Denies dysuria, hematuria or urinary frequency Musculoskeletal Musculoskeletal: Denies back pain, extremity pain or neck pain Integumentary Denies rash or wounds Neurologic Neurologic: Denies headache(s), paresthesias or weakness EXAM Physical Exam Const Vital Signs: 03/30/22 13:49 03/30/22 13:56 03/30/22 14:07 Temperature 96.5 F L Temperature Source Temporal Pulse Rate 83 79 Respiratory Rate 15 16 Respiratory Pattern Normal Blood Pressure 68/51 L 75/52 L Blood Pressure Mean 56 59 Pulse Ox 97 96 Oxygen Delivery Method Room Air Room Air 03/30/22 14:32 03/30/22 14:51 03/30/22 15:03 Temperature Temperature Source Pulse Rate 77 79 81 Respiratory Rate 14 12 14 Respiratory Pattern Blood Pressure 82/50 L 87/55 L 83/56 L Blood Pressure Mean 60 65 65 Pulse Ox 92 98 100 Oxygen Delivery Method Room Air Room Air Room Air 03/30/22 15:28 03/30/22 16:18 Temperature Temperature Source Pulse Rate 87 91 Respiratory Rate 14 16 Respiratory Pattern Blood Pressure 105/66 118/71 Blood Pressure Mean 79 86 Pulse Ox 100 98 Oxygen Delivery Method Room Air Room Air Positive well nourished and well developed Constitutional Narrative: Somnolent, however answering questions and talking. Slow to respond. Moving all 4 extremities. General Appearance ED: well developed and NAD HEENT Reports dry mucous membranes normocephalic and atraumatic Mouth ED: Yes dry mucous membranes Mouth: dry mucous membranes Eyes PERRL, EOMs intact bilaterally and conjunctivae normal General Eye ED: Yes normal appearance of both eyes Neck no lymphadenopathy and supple General: Negative for tenderness Chest Wall Chest: Negative for tenderness Resp normal respiratory effort and normal air movement Effort and Inspection: symmetric chest movement; Negative for respiratory distress Cardio regular rate, regular rhythm and no murmurs Peripheral Pulses: pulses 2+ throughout GI normal to inspection, nondistended, normoactive bowel sounds and non-tender Palpation: Negative for guarding or rebound tenderness present Back/Spine no CVA tenderness and no thoracic nor lumbar tenderness Extremity normal to inspection General Extremety ED: Negative for edema or tenderness General Extremity: Negative for edema Neuro oriented x3, CN's II-XII intact bilaterally and no sensory deficits noted Sensorium / Orientation: awake and alert Skin no rashes or lesions noted and no wounds MDM MDM MDM Narrative Medical decision making narrative: Patient is somnolent on arrival hypotensive. Fluids were started. I checked labs on her white count 8.4 hemoglobin 11.3 creatinine 1.68 slightly worse than her previous. Glucose 280 however her gap was normal at 9. 1 view chest x-ray reviewed by myself read by radiology negative for acute process urine noted 1+ bacteria 25 leukocytes she denies any urine symptoms culture sent. After 2 L of fluid blood pressure improved to systolic 118. Denies any vomiting or diarrhea. She had dry mucosal membranes. With her syncopal episode prodromal lightheaded symptoms likely orthostatic. Multiple reevaluations with her somnolence and sleepiness per family she falls asleep when she rests for years. She will awaken and follow commands. This is her normal self. Blood pressure currently improved. Patient be ambulated prior to discharge.Discussed with patient family outpatient reevaluation her labs due to renal sufficiency. All questions were answered. 1705: Patient was ambulated by myself feeling better with no return of symptoms. Return precautions discussed. Lab Data Attestation: I reviewed the patient's lab results. Labs: Laboratory Results - last 24 hr 03/30/22 03/30/22 03/30/22 14:05 14:05 15:05 WBC 8.4 RBC 3.94 L Hgb 11.3 L Hct 35.2 L MCV 89.3 MCH 28.7 MCHC 32.1 RDW Std Deviation 43.4 RDW Coeff of Elio 13.3 Plt Count 253 MPV 10.4 Immature Gran % (Auto) 1.500 H Neut % (Auto) 58.2 Lymph % (Auto) 26.6 [place] % (Auto) 10.4 H Eos % (Auto) 2.5 Baso % (Auto) 0.8 Absolute Neuts (auto) 4.9 Absolute Lymphs (auto) 2.23 Nucleated RBC % 0 Sodium 132 L Potassium 4.7 Chloride 101 Carbon Dioxide 22.0 Anion Gap 9 BUN 51 H Creatinine 1.68 H Estim Creat Clear Calc 36.05 Est GFR (MDRD) Af Amer 41 L Est GFR (MDRD) Non-Af 34 L BUN/Creatinine Ratio 30.4 H Glucose 280 H Calcium 9.3 Total Bilirubin 0.40 AST 22 ALT 32 Alkaline Phosphatase 70 Total Protein 6.5 Albumin 3.0 L Globulin 3.5 Albumin/Globulin Ratio 0.9 Urine Color Yellow Urine Clarity Clear Urine pH 5.0 Ur Specific [place] 1.020 Urine Protein 30 H Urine Glucose (UA) 100 H Urine Ketones 5 H Urine Occult Blood Negative Urine Nitrite Negative Urine Bilirubin 3 H Urine Urobilinogen 4 H Ur Leukocyte Esterase 25 H Urine RBC 0 SEEN Urine WBC 0-5 SEEN Ur Squamous Epith Cells 0-5 SEEN Urine Bacteria 1+ Hyaline Casts 0-5 SEEN Urine Mucus 1+ Radiography Diagnostic Testing: Clinical Impression(s) from Imaging Studies Chest X-Ray 03/30/22 14:22 IMPRESSION: There are no acute findings. Electronically Signed: Hung Laguerre MD at 15:17 EST , EKG Initial EKG: Attestation: I personally reviewed and interpreted this EKG as follows: Comments: Sinus rate of 78, no ST or T wave changes QTC 469. Discharge Plan Triage Chief Complaint: Syncope ED Provider: Kvng Herrera Dx/Rx/DC Orders Clinical Impression: Orthostatic syncope, Acute renal insufficiency, Dehydration, Diabetes Instructions: ED Dehydration (Adult), ED Hypotension, Orthostatic, ED Renal Insufficiency Prescriptions: No Action metformin 1,000 mg tablet 1,000 mg PO BID ondansetron HCl 8 mg tablet 8 mg PO Q8H PRN (Reason: Nausea) cholecalciferol (vitamin D3) 1,250 mcg (50,000 unit) capsule 1,250 mcg PO QWEEK diphenhydramine HCl [Benadryl] 25 mg capsule 50 mg PO BID PRN (Reason: Itching) levocetirizine [Xyzal] 5 mg tablet 5 mg PO QPM PRN (Reason: allergies) nabumetone 750 mg tablet 750 mg PO BID Label Comments: TAKE ONE TABLET BY MOUTH TWICE DAILY gabapentin 600 mg Tablet 600 mg PO TID omeprazole 20 mg Capsule,Delayed Release(Dr/Ec) 20 mg PO DAILY fenofibrate micronized 67 mg capsule 67 mg PO BID duloxetine 60 mg capsule,delayed release(DR/EC) 60 mg PO BID Acidophilus Ex Str (L. sporog) 35 million- 25 million cell tablet 2 tab PO BID aspirin 81 mg Tablet 81 mg PO DAILY insulin lispro [Humalog KwikPen Insulin] 100 unit/mL Insulin Pen 20 unit subcut TIDAC 30 Days Qty: 18 0RF tizanidine 6 mg Capsule 6 mg PO TID PRN (Reason: muscle spasms) insulin glargine [Lantus Solostar U-100 Insulin] 100 unit/mL (3 mL) insulin pen 50 - 75 units subcut BID oxycodone-acetaminophen [Percocet] 5-325 mg tablet 1 tab PO BID PRN (Reason: Pain) Primary Care Provider: Sapna Ray Referrals: Sapna Ray DO [Primary Care Provider] - 5-7 Days Activity Restrictions/Additional Instructions: Creatinine 1.68 up from 1.37 in October. Normal prior to that. Drink fluids at home for hydration. Follow-up with your doctor recheck labs. Sodium 132. Return if any worsening symptoms. Disposition Disposition: Home, Self Care
[2022-03-30] MEDS: 0.9% Normal Saline 1,000 ML 1000 ML IV (14:06)
[2022-03-30 14:12] LABS: Absolute Lymphocyte Count 2.23 X10^3/uL (0.83-4.51); Absolute Neutrophil Count 4.9 X10^3/uL (2.0-7.7); Basophil# 0.07 X10^3/uL; Basophil% 0.8 % (0-1); Eosinophil# 0.21 X10^3/uL; Eosinophils% 2.5 % (0-5); Hematocrit 35.2 % (37-47); Hemoglobin 11.3 g/dL (12.0-15.0); Lymphocyte # 2.23 X10^3/ul (0.83-4.51); Lymphocyte % 26.6 % (19-41); Mean Corp Hgb Conc 32.1 g/dL (32-36); Mean Corpuscular Hgb 28.7 pg (27.0-32.0); Mean Corpuscular Volume 89.3 fL (81-99); Mean Platelet Vol. 10.4 fl (6.2-12.0); Monocyte# 0.87 X10^3/uL; Monocyte% 10.4 % (0-10); NRBC Flagged by Analyzer 0 % (0-5); Neutrophil # 4.88 X10^3/uL (2.7-7.7); Neutrophil % 58.2 % (47-70); Platelet Count 253 K/mm3 (150-450); RBC Distribution Width CV 13.3 % (11.6-14.6); RBC Distribution Width SD 43.4 fl (35.1-43.9); Red Blood Count 3.94 M/mm3 (4.2-5.4); White Blood Count 8.4 K/mm3 (4.4-11.0)
--- NOTE | 2022-03-30 14:22 | RAD_ITS ---
STUDY: X-RAY CHEST REASON FOR EXAM: Female, 51 years old. CHEST PAIN syncope TECHNIQUE: XR Chest 1 View COMPARISON: 04/09/2021 FINDINGS: There is no demonstrated pleural abnormality. Normal size heart. Normal mediastinum and peg. Normal visualized pulmonary arteries. Normal visualized aortic arch and descending thoracic aorta. Normal visualized thoracic spine. Normal visualized ribs, clavicles, and shoulders. There is no demonstrated abnormality of the visualized soft tissue structures of the upper abdomen. RAD/Chest 1 View (Portable) IMPRESSION: There are no acute findings. Electronically Signed: Hung Laguerre MD at 15:17 EST ,
[2022-03-30 14:30] LABS: ALB/GLOB Ratio 0.9 RATIO (0.9-2.4); AST(SGOT) 22 U/L (15-37); Alanine Aminotransfer ALT/SGPT 32 U/L (13-56); Alkaline Phosphatase 70 U/L (45-117); Anion Gap 9 (5-15); BUN 51 mg/dL (7-18); BUN/Creat Ratio 30.4 RATIO (10-20); Calcium,Total 9.3 mg/dL (8.5-10.1); Chloride 101 mmol/L (98-107); Creatinine, Serum 1.68 mg/dL (0.55-1.02); EST Glomerular Filtration Rate 34 mL/min (>60); Est Glom Filt Rate - Afr Amer 41 mL/min (>60); Estimated Creatinine Clearance 36.05 ml/min; Globulin 3.5 g/dL (2.2-4.2); Glucose 280 mg/dL (74-106); Potassium 4.7 mmol/L (3.5-5.1); Protein, Total 6.5 g/dL (6.4-8.2); Sodium Level 132 mmol/L (136-145)
[2022-03-30] MEDS: 0.9% Normal Saline 1,000 ML 999 ML IV (15:04)
[2022-03-30 15:09] LABS: Red Blood Cells-Urine 0 SEEN /hpf (0-5)
[2022-03-30 15:10] LABS: Color, Urine Yellow (Yellow); Glucose, Dipstick 100 mg/dl (Normal); Ketone-Dipstick 5 mg/dl (Negative); Leukocyte Esterase-Dipstick 25 /ul (Negative); Nitrite-Dipstick Negative (Negative); Occult Blood-Urine Negative /ul (Negative); Protein-Dipstick 30 mg/dl (Negative); Urine Clarity Clear (Clear); Urine Urobilinogen 4 mg/dl (Normal)
[2022-03-30 15:45] LABS: Bacteria 1+ /hpf (None Seen); Hyaline Cast 0-5 SEEN /lpf (0-5); Mucous, Urine 1+ /hpf (<or=2+); Squamous Epithelial Cells - UA 0-5 SEEN /hpf (5-10); Urine Bilirubin Dipstick 3 mg/dL (Negative); White Blood Cells 0-5 SEEN /hpf (0-5)
[2022-04-01 14:05] LABS: Bedside Glucose 262 mg/dL (74-106)
== END 2022-03-30 17:16 | disposition home or self-care (01) ==
PROVIDERS: Emergency Provider Emergency Medicine; PCP Family Medicine; Visit Provider Emergency Medicine
DX: R55 Syncope and collapse (principal); E11.9 Type 2 diabetes mellitus without complications; N28.9 Disorder of kidney and ureter, unspecified; E86.0 Dehydration; G47.30 Sleep apnea, unspecified; Z86.16 Personal history of COVID-19; Z87.891 Personal history of nicotine dependence
CPT/HCPCS: 71045; 80053; 81001; 82962; 85025; 87086; 93005; 96360; 99284; J7030

== ENCOUNTER 2023-12-07 19:02 | Emergency (ER) | payer MEDICAID, SELFPAY ==
[2023-12-07 19:02] VITALS: BP 113/89; PULSE 124; RESP 18; TEMP 36.1; O2SAT 97; BMI 31.8
--- NOTE | 2023-12-07 23:00 | EDS_ITS ---
HPI History of Present Illness Chief Complaint: Ear Problem [facility] Medical History Abdominal panniculus, symptomatic [place] (acute kidney injury) Anxiety Arthritis Back problem Bursitis Carpal tunnel syndrome Depression Diabetes Diabetes mellitus Diabetes mellitus Excessive body weight loss Fibromyalgia Fibromyalgia Former smoker GERD (gastroesophageal reflux disease) Headache HLD (hyperlipidemia) Hypoxia Intertrigo Lumbar back pain Multiple falls Osteoarthritis Panniculitis Pneumonia due to COVID-19 virus Seasonal allergic conjunctivitis Sleep apnea ULCERS Vision problems Vitamin deficiency Home Medications ?Medication ?Instructions ?Recorded ?Last Taken ?Type gabapentin 600 mg tablet 600 mg PO TID nerve pain 03/23/21 04/06/21 History omeprazole 20 mg capsule,delayed 20 mg PO DAILY gerd 03/23/21 04/06/21 History release acidophilus-sporogenes 35 2 tab PO BID GI 04/07/21 Unknown History million-25 million cell tablet (Acidophilus Ex Str (L. sporog)) duloxetine 60 mg capsule,delayed 60 mg PO BID depression 04/07/21 Unknown History release fenofibrate micronized 67 mg 67 mg PO BID HLD 04/07/21 Unknown History capsule aspirin 81 mg tablet 81 mg PO DAILY heart health 04/19/21 Unknown History insulin lispro 100 unit/mL 20 unit (0.2 mL) subcut TIDAC 30 04/23/21 Unknown Rx subcutaneous pen (Humalog KwikPen days #18 mL (U-100) Insulin) cholecalciferol (vitamin D3) 1,250 1,250 mcg PO QWEEK 05/22/21 Unknown History mcg (50,000 unit) capsule diphenhydramine HCl 25 mg capsule 50 mg PO BID PRN Itching 05/22/21 Unknown History (Benadryl) levocetirizine 5 mg tablet (Xyzal) 5 mg PO QPM PRN allergies 05/22/21 Unknown History metformin 1,000 mg tablet 1,000 mg PO BID 05/22/21 Unknown History ondansetron HCl 8 mg tablet 8 mg PO Q8H PRN Nausea 05/22/21 Unknown History nabumetone 750 mg tablet 750 mg PO BID 10/23/21 Unknown History insulin glargine 100 unit/mL (3 50 - 75 units subcut BID 10/30/21 Unknown History mL) subcutaneous pen (Lantus Solostar U-100 Insulin) oxycodone-acetaminophen 5 mg-325 1 tab PO BID PRN Pain 10/30/21 Unknown History mg tablet (Percocet) tizanidine 6 mg capsule 6 mg PO TID PRN muscle spasms 10/30/21 Unknown History metformin 500 mg tablet,extended 1,000 mg PO BID 12/07/23 Unknown History release 24 hr Allergy/AdvReac Type Severity Reaction Status Date / Time etodolac (From [facility]) Allergy Rash Verified 12/07/23 19:02 Family History Mother Arthritis Hypertension Melanoma Father Arthritis Bleeding disorder Diabetes Heart disease High cholesterol Son Kidney disease H/O psychiatric care Uncle Alcoholism Liver disease Grandmother Arthritis Cancer Lung cancer Sister Epilepsy Melanoma Skin cancer Aunt CVA (cerebral vascular accident) Surgical History H/O knee surgery History of carpal tunnel surgery History of hysterectomy Social History household members: none Smoking Status: Former smoker how long ago did patient quit smoking: Quit ~ 30 years prior. alcohol intake: current alcohol intake frequency: holidays/special occasions only substance use type: does not use EXAM Physical Exam Const Vital Signs: 12/07/23 19:02 12/07/23 23:29 Temperature 96.9 F L 98 F Temperature Source Temporal Pulse Rate 124 H 89 Respiratory Rate 18 17 Blood Pressure 113/89 H 121/74 H Blood Pressure Mean 97 89 Pulse Ox 97 99 Oxygen Delivery Method Room Air MDM MDM MDM Narrative Medical decision making narrative: HISTORY OF PRESENT ILLNESS: 53 F here with concern for foreign body in ear. Noted buzzing 2 weeks ago. Noted her mother looked in her ear tonight and noticed movement. REVIEW OF SYSTEMS: Pertinent positives: Ear foreign body Pertinent negatives: Sore throat PHYSICAL EXAM: Nursing triage notes reviewed, Vital signs reviewed Constitutional: please see mdm HENT: MMM Skin: No rash or lesions noted MEDICAL DECISION MAKING: Chief Complaint: Ear foreign body Factors affecting care: Type 2 diabetes, fibromyalgia, hyperlipidemia MDM Narrative: 53-year-old female presents with concern for foreign body in right ear. Exam without foreign body. Right ear was irrigated without foreign bodies noted. Unclear etiology no sign of infection. No need for further ED care. Will give ENT follow-up. The patient and/or family, caregivers express understanding. The patient and/or family, caregivers agrees with the plan. Shared decision making: I will have a discussion with the patient and or visitors regarding risk/benefits of further testing or admission. They will be made aware of of the risk/benefits inherent in this decision they will be given the opportunity to voice understanding. Total critical care time today provided was at least 0 minutes. This excludes separately billable procedures. Critical care time (if documented) is secondary to the patient having high probability of clinically significant/life threatening deterioration in the patient's condition which required my urgent intervention. Impression: 1. Suspected foreign body in the ear 2. Encounter for Ear irrigation Dispo: Discharge home This note was generated with [employer] dictation software. It may contain incorrect words, spelling, and punctuation that were not noted in review of the chart prior to signing. Discharge Plan Triage Chief Complaint: Ear Problem ED Provider: Sav Kenyon Dx/Rx/DC Orders Prescriptions: No Action metformin 1,000 mg tablet 1,000 mg PO BID ondansetron HCl 8 mg tablet 8 mg PO Q8H PRN (Reason: Nausea) cholecalciferol (vitamin D3) 1,250 mcg (50,000 unit) capsule 1,250 mcg PO QWEEK diphenhydramine HCl [Benadryl] 25 mg capsule 50 mg PO BID PRN (Reason: Itching) levocetirizine [Xyzal] 5 mg tablet 5 mg PO QPM PRN (Reason: allergies) nabumetone 750 mg tablet 750 mg PO BID Patient Comments: TAKE ONE TABLET BY MOUTH TWICE DAILY gabapentin 600 mg Tablet 600 mg PO TID omeprazole 20 mg Capsule,Delayed Release(Dr/Ec) 20 mg PO DAILY fenofibrate micronized 67 mg capsule 67 mg PO BID duloxetine 60 mg capsule,delayed release(DR/EC) 60 mg PO BID Acidophilus Ex Str (L. sporog) 35 million- 25 million cell tablet 2 tab PO BID aspirin 81 mg Tablet 81 mg PO DAILY insulin lispro [Humalog KwikPen Insulin] 100 unit/mL Insulin Pen 20 unit subcut TIDAC 30 Days Qty: 18 0RF tizanidine 6 mg Capsule 6 mg PO TID PRN (Reason: muscle spasms) insulin glargine [Lantus Solostar U-100 Insulin] 100 unit/mL (3 mL) insulin pen 50 - 75 units subcut BID oxycodone-acetaminophen [Percocet] 5-325 mg tablet 1 tab PO BID PRN (Reason: Pain) metformin 500 mg tablet extended release 24 hr 1,000 mg PO BID Primary Care Provider: Sapna Ray Referrals: Sapna Ray DO [Primary Care Provider] - Activity Restrictions/Additional Instructions: Thank you for trusting us with your care today! Please return to the emergency department if your symptoms change or worsen. Please follow with your primary care physician for further outpatient evaluation and management. Print Language: Bengali Disposition Disposition: Home, Self Care Discharge Date/Time: 12/07/23 23:31
[2023-12-07 23:29] VITALS: BP 121/74; PULSE 89; RESP 17; TEMP 36.6; O2SAT 99
== END 2023-12-07 23:31 | disposition home or self-care (01) ==
PROVIDERS: Emergency Provider Emergency Medicine; PCP Family Medicine; Visit Provider Emergency Medicine
DX: T16.1XXA Foreign body in right ear, initial encounter (principal); E11.9 Type 2 diabetes mellitus without complications; E78.5 Hyperlipidemia, unspecified; Z79.82 Long term (current) use of aspirin; Z79.899 Other long term (current) drug therapy; Z79.84 Long term (current) use of oral hypoglycemic drugs; Z86.16 Personal history of COVID-19; Z87.891 Personal history of nicotine dependence; X58.XXXA Exposure to other specified factors, initial encounter
CPT/HCPCS: 99282

== ENCOUNTER 2024-01-15 12:20 | Inpatient (IN) | payer MEDICAID, SELFPAY ==
[2024-01-15 12:21] VITALS: BP 120/69; PULSE 106; RESP 16; TEMP 36.9; O2SAT 100
[2024-01-15 12:49] LABS: Bedside Glucose > 500 mg/dL (74-106)
--- NOTE | 2024-01-15 13:18 | EX.ED.DYSGE1 ---
HPI History of Present Illness Chief Complaint: Weakness Detail of Chief Complaint: Generalized weakness and not feeling well Informant: patient Narrative Narrative: Patient presents to the emergency department with complaint generalized weakness and not feeling well. Patient states she has not felt well for a couple weeks. Patient says she developed a small boil on her left suprapubic region and saw her primary care physician 2 days ago for this and was started on antibiotics apparently they did not want to nehemias it at that time because it looked like it was going to come to ahead and open up and drain on its own. Patient denies fevers or chills or sweats. She has had a slight cough for a couple weeks. Patient states she has not taken any of her diabetic medications including insulin for about 2 weeks just because she has not felt well. Patient feels dehydrated. She denies chest pain or shortness of breath. She denies abdominal pain or urinary symptoms. [facility] Medical History Abdominal panniculus, symptomatic [place] (acute kidney injury) Anxiety Arthritis Back problem Bursitis Carpal tunnel syndrome Depression Diabetes Diabetes mellitus Diabetes mellitus Excessive body weight loss Fibromyalgia Fibromyalgia Former smoker GERD (gastroesophageal reflux disease) Headache HLD (hyperlipidemia) Hypoxia Intertrigo Lumbar back pain Multiple falls Osteoarthritis Panniculitis Pneumonia due to COVID-19 virus Seasonal allergic conjunctivitis Sleep apnea ULCERS Vision problems Vitamin deficiency Home Medications ?Medication ?Instructions ?Recorded ?Last Taken ?Type gabapentin 600 mg tablet 600 mg PO TID nerve pain 03/23/21 04/06/21 History omeprazole 20 mg capsule,delayed 20 mg PO DAILY gerd 03/23/21 04/06/21 History release acidophilus-sporogenes 35 2 tab PO BID GI 04/07/21 Unknown History million-25 million cell tablet (Acidophilus Ex Str (L. sporog)) duloxetine 60 mg capsule,delayed 60 mg PO BID depression 04/07/21 Unknown History release fenofibrate micronized 67 mg 67 mg PO BID HLD 04/07/21 Unknown History capsule aspirin 81 mg tablet 81 mg PO DAILY heart health 04/19/21 Unknown History insulin lispro 100 unit/mL 20 unit (0.2 mL) subcut TIDAC 30 04/23/21 Unknown Rx subcutaneous pen (Humalog days #18 mL (U-100) Insulin) cholecalciferol (vitamin D3) 1,250 1,250 mcg PO QWEEK 05/22/21 Unknown History mcg (50,000 unit) capsule diphenhydramine HCl 25 mg capsule 50 mg PO BID PRN Itching 05/22/21 Unknown History (Benadryl) levocetirizine 5 mg tablet (Xyzal) 5 mg PO QPM PRN allergies 05/22/21 Unknown History metformin 1,000 mg tablet 1,000 mg PO BID 05/22/21 Unknown History ondansetron HCl 8 mg tablet 8 mg PO Q8H PRN Nausea 05/22/21 Unknown History nabumetone 750 mg tablet 750 mg PO BID 10/23/21 Unknown History insulin glargine 100 unit/mL (3 50 - 75 units subcut BID 10/30/21 Unknown History mL) subcutaneous pen (Lantus Solostar U-100 Insulin) oxycodone-acetaminophen 5 mg-325 1 tab PO BID PRN Pain 10/30/21 Unknown History mg tablet (Percocet) tizanidine 6 mg capsule 6 mg PO TID PRN muscle spasms 10/30/21 Unknown History metformin 500 mg tablet,extended 1,000 mg PO BID 12/07/23 Unknown History release 24 hr Allergy/AdvReac Type Severity Reaction Status Date / Time etodolac (From [facility]) Allergy Rash Verified 01/15/24 12:24 Family History Mother Arthritis Hypertension Melanoma Father Arthritis Bleeding disorder Diabetes Heart disease High cholesterol Son Kidney disease H/O psychiatric care Uncle Alcoholism Liver disease Grandmother Arthritis Cancer Lung cancer Sister Epilepsy Melanoma Skin cancer Aunt CVA (cerebral vascular accident) Surgical History H/O knee surgery History of carpal tunnel surgery History of hysterectomy Social History (Updated 01/15/24 @ 12:31 by Katherine Hull) household members: none housing: house Smoking Status: Former smoker how long ago did patient quit smoking: Quit ~ 30 years prior. alcohol intake: current alcohol intake frequency: holidays/special occasions only substance use type: does not use ROS ROS ED Review of Systems ROS Unobtainable: other Constitutional Constitutional ED: Reports lethargy; Denies chills, fever(s), sweats or weight loss Eyes Eyes: Denies blurry vision, change in vision or diplopia ENT ENT ED: Denies rhinorrhea or sore throat Cardiovascular Cardiovascular: Denies chest pain, orthopnea or racing heartbeat Respiratory/Chest Respiratory/Chest: Reports cough; Denies dyspnea, dyspnea on exertion, orthopnea or sputum Gastrointestinal Gastrointestinal: Denies abdominal pain, diarrhea, nausea or vomiting Genitourinary Genitourinary ED: Denies dysuria, hematuria or urinary frequency Musculoskeletal Musculoskeletal: Denies arthralgias, back pain, myalgias or neck pain Integumentary Reports abscess; Denies Abrasions or rash Neurologic Neurologic: Reports weakness; Denies headache(s) Psychiatric Psychiatric: Denies anxiety, depression or suicidal thoughts Endocrine Endocrinology: Denies polydipsia, polyphagia or polyuria Hematologic/Lymphatic Hematologic/Lymphatic: Denies easy bleeding, easy bruising or lymphadenopathy Allergic/Immunologic Allergic/Immunologic ED: Denies mouth swelling, tongue swelling or urticaria EXAM Physical Exam Const Vital Signs: 01/15/24 12:21 01/15/24 12:30 01/15/24 14:21 Temperature 98.5 F Temperature Source Oral Pulse Rate 106 H 78 Respiratory Rate 16 16 Respiratory Effort Normal Non-Labored Respiratory Pattern Normal Blood Pressure 120/69 113/63 Blood Pressure Mean 86 79 Pulse Ox 100 98 Oxygen Delivery Method Room Air Room Air Positive well nourished and well developed General Appearance ED: well developed and NAD HEENT Reports TM's clear and moist mucous membranes normocephalic and atraumatic; Negative for trauma or tenderness Tympanic Membrane ED: Yes TM's clear Eyes PERRL and EOMs intact bilaterally General Eye ED: Negative for pale conjunctiva or scleral icterus Neck no lymphadenopathy, supple and no JVD General: Negative for tenderness Chest Wall inspection of chest normal and palpation of chest normal Chest: Negative for tenderness Resp normal respiratory effort and clear to auscultation bilaterally Effort and Inspection: Negative for respiratory distress or pain with movement Auscultation: Negative for rhonchi, wheezes or diminished lung sounds Cardio regular rate, regular rhythm, S1 normal heart sound, S2 normal heart sound and no murmurs Peripheral Pulses: pulses 2+ throughout GI normal to inspection, nondistended, normoactive bowel sounds, soft to palpation, non-tender, non-distended and no masses GI Narrative: Patient has a large abscess over the area of the left side pubic mons that is tender to palpation and slightly fluctuant. Central portion is slightly necrotic appearing with some cellulitic changes peripherally. Area measures approximately 8 cm in diameter. Back/Spine no CVA tenderness and no thoracic nor lumbar tenderness Extremity normal to inspection General Extremety ED: Negative for edema General Extremity: Negative for edema Neuro oriented x3, CN's II-XII intact bilaterally, no sensory deficits noted and gait normal Sensorium / Orientation: awake, alert, oriented to person, oriented to place and oriented to time Motor Exam: strength 5/5 throughout and strength abnormal Psych mental status grossly normal Skin no rashes or lesions noted and no wounds MDM MDM MDM Narrative Medical decision making narrative: Patient presents with complaint of not feeling well and elevated blood sugars. She also has an abscess left lower pelvic/abdominal wall. IV line established. CBC with differential white count of 8.1 with hemoglobin 11.7 platelet count of 190. Chemistries showed a sodium 128 with potassium 3.6 and chloride of 93. BUN to 34 and creatinine 1.34. Glucose was 482. I did give patient 15 units of regular insulin subcu. Urinalysis unremarkable. I did offer the patient incision and drainage of suspected abscess to which she agreed. I offered local anesthetic versus attempting needle aspiration first followed by a small incision and patient did not want me to attempt anesthetized the area but rather just aspirated and incise it. Skin cleansed with Shur-Clens. Initially inserted an 18-gauge needle and aspirated large amount of purulent debris. I then used an 11 blade to make a 2.5 cm incision into the fluctuant portion of the abscess and used curved hemostats undermine the tissues. Large amount of free-flowing purulent debris was expressed. Patient started on Unasyn IV. Case discussed with hospitalist to evaluate patient for admission for IV antibiotics and blood sugar control. Lab Data Attestation: I reviewed the patient's lab results. Labs: Laboratory Results - last 24 hr 01/15/24 01/15/24 01/15/24 12:28 13:36 13:50 WBC 8.1 RBC 4.18 L Hgb 11.7 L Hct 34.8 L MCV 83.3 MCH 28.0 MCHC 33.6 RDW Std Deviation 38.1 RDW Coeff of Elio 12.4 Plt Count 190 MPV 10.3 Immature Gran % (Auto) 4.300 H Neut % (Auto) 60.7 Lymph % (Auto) 18.8 L Hawkins % (Auto) 13.3 H Eos % (Auto) 1.7 Baso % (Auto) 1.2 H Absolute Neuts (auto) 4.9 Absolute Lymphs (auto) 1.53 Nucleated RBC % 0 Sodium 128 L Potassium 3.6 Chloride 93 L Carbon Dioxide 23.0 Anion Gap 13 BUN 34 H Creatinine 1.34 H Est GFR (MDRD) Af Amer 53 L Est GFR (MDRD) Non-Af 44 L BUN/Creatinine Ratio 25.4 H Glucose 482 H* Lactic Acid 1.3 Calcium 9.5 Urine Color Yellow Urine Clarity Sl. Cloudy Urine pH 6.0 Ur Specific [place] 1.010 Urine Protein 100 H Urine Glucose (UA) 1000 H Urine Ketones Negative Urine Occult Blood 150 H Urine Nitrite Negative Urine Bilirubin Negative Urine Urobilinogen Normal Ur Leukocyte Esterase 500 H Urine RBC 0-5 SEEN Urine WBC 5-10 SEEN Ur Squamous Epith Cells 0-5 SEEN Urine Bacteria 0 SEEN Urine Mucus 0 SEEN Acetone Level NEGATIVE POC Glucose > 500 H* Discharge Plan Triage Chief Complaint: Weakness ED Provider: Osiel Melvin Dx/Rx/DC Orders Clinical Impression: Abdominal wall abscess, Hyperglycemia Prescriptions: No Action metformin 1,000 mg tablet 1,000 mg PO BID ondansetron HCl 8 mg tablet 8 mg PO Q8H PRN (Reason: Nausea) cholecalciferol (vitamin D3) 1,250 mcg (50,000 unit) capsule 1,250 mcg PO QWEEK diphenhydramine HCl [Benadryl] 25 mg capsule 50 mg PO BID PRN (Reason: Itching) levocetirizine [Xyzal] 5 mg tablet 5 mg PO QPM PRN (Reason: allergies) nabumetone 750 mg tablet 750 mg PO BID Patient Comments: TAKE ONE TABLET BY MOUTH TWICE DAILY gabapentin 600 mg Tablet 600 mg PO TID omeprazole 20 mg Capsule,Delayed Release(Dr/Ec) 20 mg PO DAILY fenofibrate micronized 67 mg capsule 67 mg PO BID duloxetine 60 mg capsule,delayed release(DR/EC) 60 mg PO BID Acidophilus Ex Str (L. sporog) 35 million- 25 million cell tablet 2 tab PO BID aspirin 81 mg Tablet 81 mg PO DAILY insulin lispro [Humalog KwikPen Insulin] 100 unit/mL Insulin Pen 20 unit subcut TIDAC 30 Days Qty: 18 0RF tizanidine 6 mg Capsule 6 mg PO TID PRN (Reason: muscle spasms) insulin glargine [Lantus Solostar U-100 Insulin] 100 unit/mL (3 mL) insulin pen 50 - 75 units subcut BID oxycodone-acetaminophen [Percocet] 5-325 mg tablet 1 tab PO BID PRN (Reason: Pain) metformin 500 mg tablet extended release 24 hr 1,000 mg PO BID Primary Care Provider: Sapna Ray Referrals: Sapna Ray DO [Primary Care Provider] - Print Language: Tamazight Disposition Disposition: Acute Care Hospital [facility]
--- NOTE | 2024-01-15 13:35 | RAD_ITS ---
STUDY: X-RAY CHEST REASON FOR EXAM: Female, 53 years old. Cough TECHNIQUE: Single AP portable view of the chest. COMPARISON: Comparison is made with prior study dated March 30, 2022. FINDINGS: EKG electrodes are seen. The lungs are clear and expanded. There is no demonstrated pleural abnormality. Normal size heart. Normal mediastinum and peg. Normal visualized pulmonary arteries. Normal visualized aortic arch and descending thoracic aorta. Normal visualized thoracic spine. Normal visualized ribs, clavicles, and shoulders. There is no demonstrated abnormality of the visualized soft tissue structures of the upper abdomen. RAD/Chest 1 View (Portable) IMPRESSION: Normal x-ray examination of the chest. Electronically Signed: Carlos Pimentel MD at 14:54 EDT ,
[2024-01-15 13:46] LABS: Absolute Lymphocyte Count 1.53 X10^3/uL (0.83-4.51); Absolute Neutrophil Count 4.9 X10^3/uL (2.0-7.7); Basophil% 1.2 % (0-1); Eosinophil# 0.14 X10^3/uL; Eosinophils% 1.7 % (0-5); Hematocrit 34.8 % (37-47); Hemoglobin 11.7 g/dL (12.0-15.0); Lymphocyte # 1.53 X10^3/ul (0.83-4.51); Lymphocyte % 18.8 % (19-41); Mean Corp Hgb Conc 33.6 g/dL (32-36); Mean Corpuscular Volume 83.3 fL (81-99); Mean Platelet Vol. 10.3 fl (6.2-12.0); Monocyte# 1.08 X10^3/uL; Monocyte% 13.3 % (0-10); NRBC Flagged by Analyzer 0 % (0-5); Neutrophil # 4.93 X10^3/uL (2.7-7.7); Neutrophil % 60.7 % (47-70); Platelet Count 190 K/mm3 (150-450); RBC Distribution Width CV 12.4 % (11.6-14.6); RBC Distribution Width SD 38.1 fl (35.1-43.9); Red Blood Count 4.18 M/mm3 (4.2-5.4); White Blood Count 8.1 K/mm3 (4.4-11.0)
[2024-01-15] MEDS: 0.9% Normal Saline (1000mL) 1,000 ML 1000 ML IV (13:46)
[2024-01-15 13:54] LABS: Bacteria 0 SEEN /hpf (None Seen); Mucous, Urine 0 SEEN /hpf (<or=2+)
[2024-01-15 13:58] LABS: Color, Urine Yellow (Yellow); Glucose, Dipstick 1000 mg/dl (Normal); Ketone-Dipstick Negative (Negative); Leukocyte Esterase-Dipstick 500 /ul (Negative); Nitrite-Dipstick Negative (Negative); Occult Blood-Urine 150 /ul (Negative); Protein-Dipstick 100 mg/dl (Negative); Urine Bilirubin Dipstick Negative (Negative); Urine Clarity Sl. Cloudy (Clear); Urine Urobilinogen Normal (Normal)
[2024-01-15 14:00] LABS: Anion Gap 13 (5-15); BUN 34 mg/dL (7-18); BUN/Creat Ratio 25.4 RATIO (10-20); Calcium,Total 9.5 mg/dL (8.5-10.1); Chloride 93 mmol/L (98-107); Creatinine, Serum 1.34 mg/dL (0.55-1.02); EST Glomerular Filtration Rate 44 mL/min (>60); Est Glom Filt Rate - Afr Amer 53 mL/min (>60); Glucose 482 mg/dL (74-106); Potassium 3.6 mmol/L (3.5-5.1); Sodium Level 128 mmol/L (136-145)
[2024-01-15 14:07] LABS: Red Blood Cells-Urine 0-5 SEEN /hpf (0-5); Squamous Epithelial Cells - UA 0-5 SEEN /hpf (5-10); White Blood Cells 5-10 SEEN /hpf (0-5)
[2024-01-15 14:16] LABS: Lactic Acid 1.3 mmol/L (0.4-1.9)
[2024-01-15 14:21] VITALS: BP 113/63; PULSE 78; RESP 16; O2SAT 98
[2024-01-15] MEDS: Insulin Lispro 100 UNIT/ML INSULN.PEN 15 UNIT SC (15:05)
[2024-01-15 15:24] LABS: Bedside Glucose 425 mg/dL (74-106)
[2024-01-15] MEDS: Ampicillin/Sulbactam 3 GM in 0.9% Normal Saline (100mL MB+) 100 ML IV (15:59)
[2024-01-15 16:00] VITALS: BP 136/69; PULSE 78; RESP 16; O2SAT 98
--- OUTSIDE RECORDS SUMMARY | 2024-01-15 16:00 | XMS RPT_ITS | CCD ---
Author Organization [facility] Care Team Providers [facility] Name Role Phone Sapna Murray DO Primary Care Provider GARCIA CORONADO, DR LÓPEZ Primary Care Physician UnaSapna Romeo DO Primary Care Provider [phone] SAPNA MURRAY Primary Care Unavailable JÚNIOR ALVARADO Referring Unavailable SAPNA MURRAY Primary Care Unavailable WARREN BLANCO Attending Unavailable SAPNA MURRAY Primary Care Unavailable Sapna Murray DO Primary Care Provider [phone] Allergies Allergy Classification Reported Allergen(s) Allergy Type Date of Onset Reaction(s) Facility (4 sources) [place]; Translations: [ETODOLAC] Drug Allergy 01-16-2015 Swelling [facility] (4 sources) Seasonal allergy; Translations: [SEASONAL ALLERGIES] Allergy to substance 01-16-2015 Itching [facility] Medications Current Medications Medication Drug Class(es) Dates Sig (Normalized) Sig (Original) aspirin 81 mg delayed release oral tablet (3 sources) Platelet Aggregation Inhibitor, Nonsteroidal Anti-inflammatory Drug take 1 tablet by mouth once daily aspirin, enteric coated (ASPIRIN, ENTERIC COATED) 81 mg EC tablet Take 81 mg by mouth once daily. Active Comment on above: Take 81 mg by mouth once daily. diphenhydrAMINE hydrochloride 25 mg oral capsule (3 sources) Histamine-1 Receptor Antagonist diphenhydrAMINE (BENADRYL) 25 mg capsule Take 25 mg by mouth as needed. Active Comment on above: Take 25 mg by mouth as needed. DULoxetine 60 mg delayed release oral capsule (3 sources) Serotonin and Norepinephrine Reuptake Inhibitor Start: 08-08-2021 DULoxetine (CYMBALTA) 60 mg capsule 08/08/2021 Active ergocalciferol 1.25 mg oral capsule (3 sources) Provitamin D2 Compound take 1 capsule by mouth every week ergocalciferol, vitamin D2, (DRISDOL) 50,000 unit capsule Take 50,000 Units by mouth once each week. Active Comment on above: Take 50,000 Units by mouth once each week. fenofibrate 67 mg oral capsule (3 sources) Peroxisome Proliferator Receptor alpha Agonist take 1 capsule by mouth once daily fenofibrate (LOFIBRA) 67 mg capsule Take 67 mg by mouth once daily. Active Comment on above: Take 67 mg by mouth once daily. gabapentin 300 mg oral capsule (3 sources) Anti-epileptic Agent take 1 capsule by mouth four times daily gabapentin (NEURONTIN) 300 mg capsule Take 300 mg by mouth four times daily. Active Comment on above: Take 300 mg by mouth four times daily. insulin aspart, human 100 unt/ml injectable solution (3 sources) Insulin Analog inject 30 [IU] by subcutaneous injection once daily before mealtime insulin aspart (NOVOLOG) 100 unit/mL soln Inject 30 Units subcutaneously once daily. Before meals Active Comment on above: Inject 30 Units subc utaneously once daily. Before meals insulin glargine 100 unt/ml injectable solution (3 sources) Insulin Analog inject 70 [IU] by subcutaneous injection once daily in the morning, then inject 80 [IU] by subcutaneous injection in the evening insulin glargine (LANTUS) 100 unit/mL injection Inject subcutaneously once daily. 70 units SC in AM, 80 units SC in PM Active Comment on above: Inject subcutaneousl y once daily. 70 units SC in AM, 80 units SC in PM Insulin Syringe-Needle U-100 (BD ULTRAFINE INSULIN) 1 mL 31 x 5/16 syrg (3 sources) Insulin Syringe-Needle U-100 (BD ULTRAFINE INSULIN) 1 mL 31 x 5/16 syrg five times daily. Active Insulin Syringe- Needle U-100 (BD ULTRAFINE INSULIN) 1 mL 31 x 5/16 syrg five times daily. 0 Active Comment on above: five times daily. levocetirizine (3 sources) Histamine-1 Receptor Antagonist levocetirizine dihyd rochloride (XYZAL ORAL) Take by mouth. Active levocetirizine d ihydrochloride (XYZAL ORAL) Take by mouth. 0 Active Comment on above: Take by mouth. lisinopril 2.5 mg oral tablet (3 sources) Angiotensin Converting Enzyme Inhibitor take 1 tablet by mouth once daily lisinopril 2.5 mg tablet Take 2.5 mg by mouth once daily. Active Comment on above: Take 2.5 mg by mouth once daily. loratadine 10 mg oral capsule (3 sources) take 1 capsule by mouth once daily loratadine 10 mg cap Take 10 mg by mouth once daily. Active Comment on above: Take 10 mg by mouth once daily. metFORMIN hydrochloride 1000 mg oral tablet (3 sources) Biguanide take 1 tablet by mouth twice daily at mealtime metFORMIN (GLUCOPHAGE) 1,000 mg tablet Take 1,000 mg by mouth twice daily with meals. Active Comment on above: Take 1,000 mg by julianne th twice daily with meals. omeprazole 20 mg delayed release oral capsule (3 sources) Proton Pump Inhibitor take 1 capsule by mouth once daily omeprazole (PRILOSEC) 20 mg capsule Take 20 mg by mouth once daily. Active Comment on above: Take 20 mg by mouth once daily. ondansetron 8 mg oral tablet (3 sources) Serotonin-3 Receptor Antagonist Start: ondansetron (ZOFRAN) 8 mg tablet 05/31/2021 Active phenylephrine hydrochloride 25 mg/ml ophthalmic solution (1 source) alpha-1 Adrenergic Agonist Start: End: PHENYLephrine 2.5 % 1 Drop (AK-DILATE, GUTIERREZ-SYNEPHRINE) proparacaine hydrochloride 5 mg/ml ophthalmic solution (1 source) Local Anesthetic Start: End: proparacaine 0.5 % 1 Drop (ALCAINE) tropicamide 10 mg/ml ophthalmic solution (1 source) Anticholinergic Start: End: tropicamide 1 % 1 Drop (MYDRIACYL) Completed/Discontinued Medications Medication Drug Class(es) Dates Sig (Normalized) Sig (Original) busPIRone hydrochloride 5 mg oral tablet (1 source) End: 08-29-2021 take 1 tablet by mouth twice daily busPIRone (BUSPAR) 5 mg tablet Take 5 mg by mouth twice daily. 0 08/29/2021 Discontinued Comment on above: Take 5 mg by mouth t wice daily. clindamycin 10 mg/ml medicated pad (1 source) Lincosamide Antibacterial End: 08-29-2021 Clindamycin Phosphate 1 % swab Apply 1 application to affected area twice daily as needed. 0 08/29/2021 Discontinued Comment on above: Apply 1 application to affected area twice daily as needed. CPAP (1 source) End: 08-29-2021 CPAP erythromycin 0.005 mg/mg ophthalmic ointment (1 source) Macrolide, Macrolide Antimicrobial Start: 02-04-2022 erythromycin (ROMYCIN) 5 mg/gram (0.5 %) ophthalmic ointment Use 1 application in both eyes daily at bedtime. 3.5 g 1 02/04/2022 Active Comment on above: Use 1 application in both eyes daily at bedtime. exenatide 2 mg injection (1 source) GLP-1 Receptor Agonist End: 08-29-2021 exenatide (BYDUREON) 2 mg ER subcutaneous injection vial Inject subcutaneously. 0 08/29/2021 Discontinued Comment on above: Inject subcutaneousl y. methocarbamol 500 mg oral tablet (1 source) Muscle Relaxant End: 08-29-2021 take 1 tablet by mouth twice daily methocarbamol (ROBAXIN) 500 mg tablet Take 500 mg by mouth twice daily. 0 08/29/2021 Discontinued Comment on above: Take 500 mg by mouth twice daily. miconazole nitrate 20 mg/ml topical cream (1 source) Azole Antifungal End: 08-29-2021 miconazole (MONISTAT-DERM,BAZ A) 2 % cream Apply 1 application to affected area twice daily. 0 08/29/2021 Discontinued Comment on above: Apply 1 application to affected area twice daily. montelukast 10 mg oral tablet (1 source) Leukotriene Receptor Antagonist End: 08-29-2021 take 1 tablet by mouth once daily montelukast (SINGULAIR) 10 mg tablet Take 10 mg by mouth once daily. 0 08/29/2021 Discontinued Comment on above: Take 10 mg by mouth once daily. nabumetone 750 mg oral tablet (1 source) Nonsteroidal Anti-inflammatory Drug End: 08-29-2021 take 1 tablet by mouth once daily nabumetone (RELAFEN) 750 mg tablet Take 750 mg by mouth once daily. 0 08/29/2021 Discontinued Comment on above: Take 750 mg by mouth once daily. 24 hr oxybutynin chloride 10 mg extended release oral tablet (1 source) Cholinergic Muscarinic Antagonist Start: 10-06-2016 End: 08-29-2021 take 1 tablet by mouth once daily oxybutynin ER (DITROPAN XL) 10 mg 24 hr tablet TAKE 1 TABLET BY MOUTH DAILY 90 tablet 1 10/06/2016 08/29/2021 Discontinued Comment on above: TAKE 1 TABLET BY JULIANNE TH DAILY rosuvastatin calcium 40 mg oral tablet (1 source) HMG-CoA Reductase Inhibitor End: 08-29-2021 take 1 tablet by mouth once daily rosuvastatin (CRESTOR) 40 mg tablet Take 40 mg by mouth once daily. 0 08/29/2021 Discontinued Comment on above: Take 40 mg by mouth once daily. sertraline 100 mg oral tablet (1 source) Serotonin Reuptake Inhibitor End: 08-29-2021 take 2 tablets by mouth once daily sertraline (ZOLOFT) 100 mg tablet Take 200 mg by mouth once daily. 0 08/29/2021 Discontinued Comment on above: Take 200 mg by mouth once daily. topiramate 50 mg oral tablet (1 source) End: 08-29-2021 take 1 tablet by mouth twice daily Topiramate (TOPAMAX) 50 mg tablet Take 50 mg by mouth twice daily. 0 08/29/2021 Discontinued Comment on above: Take 50 mg by mouth twice daily. Problems Active Problems Problem Classification Problem Date Documented Date Episodic/Chronic Asthma (3 sources) Asthma; Translations: [Unspecified asthma, uncomplicated] Onset: 02-07-2015 02-07-2015 Chronic Blindness and vision defects (1 source) Severe myopia; Translations: [Myopia, bilateral] Onset: 02-04-2022 02-04-2022 Episodic Cataract (2 sources) Bilateral senile combined form cataracts of eyes; Translations: [Combined forms of age-related cataract, bilateral] Onset: 02-04-2022 Chronic Diabetes mellitus with complications (1 source) Type 2 diabetes mellitus; Translations: [Type 2 diabetes mellitus with mild nonproliferative diabetic retinopathy without macular edema, bilateral] Chronic Diabetes mellitus without complication (4 sources) Type 2 diabetes mellitus without complication; Translations: [Type 2 diabetes mellitus without complications] Onset: 02-07-2015 02-07-2015 Chronic Disorders of lipid metabolism (4 sources) Hyperlipidemia; Translations: [Hyperlipidemia, unspecified] Onset: 02-07-2015 02-07-2015 Chronic Esophageal disorders (6 sources) Gastroesophageal reflux disease; Translations: [Gastro-esophageal reflux disease without esophagitis] Onset: 02-07-2015 02-07-2015 Chronic Essential hypertension (4 sources) Hypertensive disorder; Translations: [Essential (primary) hypertension] Onset: 02-07-2015 02-07-2015 Chronic Genitourinary symptoms and ill-defined conditions (3 sources) Female stress incontinence; Translations: [Stress incontinence (female) (male)] Onset: 04-03-2015 04-03-2015 Chronic Mood disorders (4 sources) Depressive disorder; Translations: [Depression] Onset: 02-07-2015 02-07-2015 Chronic Other connective tissue disease (1 source) Paraparesis; Translations: [Other symptoms and signs involving the musculoskeletal system] Episodic Other diseases of bladder and urethra (3 sources) Detrusor overactivity; Translations: [Overactive bladder] Onset: 04-03-2015 04-03-2015 Chronic Other eye disorders (2 sources) Meibomian gland dysfunction of bilateral eyes; Translations: [Meibomian gland dysfunction right eye, upper and lower eyelids] Onset: 02-04-2022 Episodic Other lower respiratory disease (2 sources) Rib pain; Translations: [Pleurodynia] Episodic Other non-traumatic joint disorders (3 sources) Pain in right knee; Translations: [Pain in joint, lower leg] Onset: 08-29-2021 Episodic Residual codes; unclassified (3 sources) Obstructive sleep apnea syndrome; Translations: [Obstructive sleep apnea (adult) (pediatric)] Onset: 02-07-2015 02-07-2015 Chronic Spondylosis; intervertebral disc disorders; other back problems (1 source) Chronic low back pain; Translations: [Lumbago with sciatica, left side] Episodic Past or Other Problems Problem Classification Problem Date Documented Da te Episodic/Chronic Menstrual disorders (2 sources) Menometrorrhagia; Translations: [Excessive and frequent menstruation with irregular cycle] Onset: 01-22-2015 Resolved: 07-06-2015 07-06-2015 Chronic Other connective tissue disease (4 sources) Fibromyalgia; Translations: [Fibromyalgia] Onset: 02-07-2015 02-07-2015 Episodic Other lower respiratory disease (1 source) Pleurodynia; Translations: [Rib pain on left side] Onset: 08-29-2021 Episodic Prolapse of female genital organs (2 sources) Second degree uterine prolapse; Translations: [Incomplete uterovaginal prolapse] Onset: 05-23-2015 Resolved: 07-06-2015 07-06-2015 Chronic Residual codes; unclassified (1 source) Abnormal cytology findings; Translations: [ASCUS with positive high risk HPV] Onset: 01-22-2015 Resolved: 07-06-2015 07-06-2015 Episodic Results Test Name Value Interpretation Reference Range Facil ity CNOVon 08-29-2021 CNOV Office Visit (UCWSTR ) MARIA ISABEL VANN ([id number]) 1970 F Date Time Provider Department 08/29/21 11:30 AM JÚNIOR ALVARADO [facility] During your visit today, we recorded the following information about you: Temperature Pulse Respiration Blood pressure 97.6 degrees 145/minute 16/minute 124/70 Júnior Alvarado MD 08/29/2021 1:28 PM Signed Patient presents with: Pain: Pt reported fall/lifting x6 days, (LT) rib pain rated 6, Pain: (RT) leg pain rated 8, ongoing BS AM 187 HPI: Leg pain: Duration: Leg pain started after 3rd hospitalization in April. Reports admitted for COVID, diabetic ketoacidosis, and bacterial pneumonia. ER visit in July for low back with sciatic pain. Fell twice last weekend and felt something pop in her left ribs when her son pulled her up. Fell again and hurt her right knee 2 days ago. [facility] because she cannot take the pain which has been present since April any more. Character: Left rib constant, right knee sharp/constant dull. Location: Left lower ribs below the axilla, right knee Radiation: No. Aggravating: Coughing, sneezing Relieving: oxycodone from PCP helped some, vicodin from the ER did not help Pain relievers: Tylenol, . Associated: Leg weakness, R>L numbness, shallow breathing. Pertinent negatives: Denies fever loss of bladder or bowel control, shortness of breath Imaging: xrays at hospital Physical Therapy: Unable to tolerate b/c of pain, needs done before MRI PAST MEDICAL HISTORY Diagnosis Date - Bursitis - Carpal tunnel syndrome Bilateral - Chronic fatigue - Chronic headaches - Diabetes (HCC) - Fibromyalgia - GERD (gastroesophageal reflux disease) - HTN (hypertension) - ADELINE (obstructive sleep apnea) - Primary generalized (osteo)arthritis - Sinusitis, chronic - Tendonitis MEDICATIONS: ondansetron (ZOFRAN) 8 mg tablet DULoxetine (CYMBALTA) 60 mg capsule levocetirizine dihydrochloride (XYZAL ORAL) Take by mouth. insulin aspart (NOVOLOG) 100 unit/mL soln Inject 30 Units subcutaneously once daily. Before meals aspirin, enteric coated (ASPIRIN, ENTERIC COATED) 81 mg EC tablet Take 81 mg by mouth once daily. gabapentin (NEURONTIN) 300 mg capsule Take 300 mg by mouth four times daily. fenofibrate (LOFIBRA) 67 mg capsule Take 67 mg by mouth once daily. Insulin Syringe-Needle U-100 (BD ULTRAFINE INSULIN) 1 mL 31 x 5/16 syrg five times daily. insulin glargine (LANTUS) 100 unit/mL injection Inject subcutaneously once daily. 70 units SC in AM, 80 units SC in PM blood sugar diagnostic (TRUETRACK TEST) test strip four times daily. Use as instructed metFORMIN (GLUCOPHAGE) 1,000 mg tablet Take 1,000 mg by mouth twice daily with meals. ergocalciferol, vitamin D2, (DRISDOL) 50,000 unit capsule Take 50,000 Units by mouth once each week. lisinopril 2.5 mg tablet Take 2.5 mg by mouth once daily. omeprazole (PRILOSEC) 20 mg capsule Take 20 mg by mouth once daily. diphenhydrAMINE (BENADRYL) 25 mg capsule Take 25 mg by mouth as needed. loratadine 10 mg cap Take 10 mg by mouth once daily. ALLERGIES: ALLERGIES Allergen Reactions - Lodine [Etodolac] Swelling - Seasonal Allergies Itching VITALS: BP 124/70 Pulse (!) 145 Temp 36.4 ?C (97.6 ?F) Resp 16 LMP 05/19/2015 SpO2 97% PHYSICAL EXAM: GEN: pleasant, no acute distress, alert, ambulates with a walker HEART: fast rate, regular rhythm, no murmurs LUNGS: clear to auscultation, no wheezes or crackles, no increased WOB RIBS: Tender ~T9 in the left mid axillary line. Non tender anterior and posterior ribs. EXT: no cyanosis, no edema, bilateral leg atrophy BACK: Normal curvature of spine. No midline tenderness. Lower lumbar paraspinal tenderness. Straight leg test negative. Bilateral decreased lower extremity strength. KNEE: right compared to left. No erythema, effusion, or deformity. Abrasion anterior medial knee. FROM with pain. No crepitus. medial joint line tenderness. Stable to varus and valgus strain. Negative anterior drawer test. Negative posterior drawer test. ASSESSMENT/PLAN: 1. Rib pain on left side - ICD9: 786.50, ICD10: R07.81 (primary diagnosis) - XR RIBS/CHEST 3V AP RIB/OBLS/CXR LEFT - no acute fracture. Left rib strain from being lifted. Expectant management. Follow up with worsening cough, shortness of breath, chest pain, or late onset fever. 2. Acute pain of right knee - ICD9: 719.46, ICD10: M25.561 - XR KNEE GENERAL 4V AP BOTH/PA BOTH/LAT/MERC RIGHT - no acute fractures. Remote tibal screws from patellar tendon repositioning and degenerative joint changes. Reassured of no acute fracture. 3. Leg weakness, bilateral - ICD9: 729.89, ICD10: R29.898 4. Chronic bilateral low back pain with bilateral sciatica - ICD9: 724.2, 724.3, 338.29, ICD10: M54.42, M54.41, G89.29 Differential includes lumbar impingement with radic (more content not included)... Normal [facility] No Panel Informationon 08-29 Radiology Study observation (narrative) [facility] XR KNEE 4V AP/PA BOTH+LAT/ME R RTon 08-29-2021 XR KNEE 4V AP/PA BOTH+LAT/DUSTY RT * * *Final Report* * * DATE OF EXAM: Aug 29 2021 12:26PM WOX [id number] - XR KNEE 4V AP/PA BOTH+LAT/DUSTY RT / PROCEDURE REASON: Acute pain of right knee * * * * Physician Interpretation * * * * Chest, left RIBS, and right knee radiographs HISTORY: 51 years old Clinical information: Rib pain on left side pt fall, injured right knee during fall and then left ribs when her son lifted her up from the ground. TECHNIQUE: Images: XR RIB/CHST 3V AP RIB/OBL/CHST L, XR KNEE 4V AP/PA BOTH+LAT/DUSTY RT Comparison: None. Chest and left RIBS RESULT: No confluent infiltrate, effusion, or pneumothorax identified. Cardiac and mediastinal silhouettes are within normal limits. No left-sided rib fractures are seen. Right knee RESULT: Mild narrowing of the medial compartment joint space. Marginal osteophytes extending off tibial plateaus, femoral condyles, and posterior aspect of the patella. No fracture or dislocation. Carotid screws extending through the tibial tuberosity. Surgical hardware appears to be intact. Intra-articular bodies in the posterior joint space. IMPRESSION: No acute cardiopulmonary disease identified. No left-sided rib fractures. Osteoarthrosis of the right knee. 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: MALINDA Transcribe Date/Time: Aug 29 2021 12:33P Dictated by : CLARISSA CASTREJON MD This examination was interpreted and the report reviewed and electronically signed by: CLARISSA CASTREJON MD on Aug 29 2021 12:35PM EST [id number] Normal [facility] XR Knee - right 4 Viewson IMPRESSION: No acute cardiopulmonary disease identified. No left-sided rib fractures. Osteoarthrosis of the right knee. 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: [facility] Transcribe Date/Time: Aug 29 2021 12:33P Dictated by : CLARISSA CASTREJON MD This examination was interpreted and the report reviewed and electronically signed by: CLARISSA CASTREJON MD on Aug 29 2021 12:35PM EST [email or web address]_NOT_USE_ DIVISION OF RADIOLOGY * * *Final Report* * * DATE OF EXAM: Aug 29 2021 12:26PM WOX [id number] - XR KNEE 4V AP/PA BOTH+LAT/DUSTY RT / PROCEDURE REASON: Acute pain of right knee * * * * Physician Interpretation * * * * Chest, left RIBS, and right knee radiographs HISTORY: 51 years old Clinical information: Rib pain on left side pt fall, injured right knee during fall and then left ribs when her son lifted her up from the ground. TECHNIQUE: Images: XR RIB/CHST 3V AP RIB/OBL/CHST L, XR KNEE 4V AP/PA BOTH+LAT/DUSTY RT Comparison: None. Chest and left RIBS RESULT: No confluent infiltrate, effusion, or pneumothorax identified. Cardiac and mediastinal silhouettes are within normal limits. No left-sided rib fractures are seen. Right knee RESULT: Mild narrowing of the medial compartment joint space. Marginal osteophytes extending off tibial plateaus, femoral condyles, and posterior aspect of the patella. No fracture or dislocation. Carotid screws extending through the tibial tuberosity. Surgical hardware appears to be intact. Intra-articular bodies in the posterior joint space. [facility]DO_NOT_USE_ DIVISION OF RADIOLOGY Provider, [facility] - 08/29/2021 * * *Final Report* * * DATE OF EXAM: Aug 29 2021 12:26PM WOX [id number] - XR KNEE 4V AP/PA BOTH+LAT/DUSTY RT / PROCEDURE REASON: Acute pain of right knee * * * * Physician Interpretation * * * * Chest, left RIBS, and right knee radiographs HISTORY: 51 years old Clinical information: Rib pain on left side pt fall, injured right knee during fall and then left ribs when her son lifted her up from the ground. TECHNIQUE: Images: XR RIB/CHST 3V AP RIB/OBL/CHST L, XR KNEE 4V AP/PA BOTH+LAT/DUSTY RT Comparison: None. Chest and left RIBS RESULT: No confluent infiltrate, effusion, or pneumothorax identified. Cardiac and mediastinal silhouettes are within normal limits. No left-sided rib fractures are seen. Right knee RESULT: Mild narrowing of the medial compartment joint space. Marginal osteophytes extending off tibial plateaus, femoral condyles, and posterior aspect of the patella. No fracture or dislocation. Carotid screws extending through the tibial tuberosity. Surgical hardware appears to be intact. Intra-articular bodies in the posterior joint space. IMPRESSION IMPRESSION: No acute cardiopulmonary disease identified. No left-sided rib fractures. Osteoarthrosis of the right knee. 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: MALINDA Transcribe Date/Time: Aug 29 2021 12:33P Dictated by : CLARISSA CASTREJON MD This examination was interpreted and the report reviewed and electronically signed by: CLARISSA CASTREJON MD on Aug 29 2021 12:35PM EST [facility] XR RIB/CHST 3V AP RIB/OBL/CH ST Ray 08-29-2021 XR RIB/CHST 3V AP RIB/OBL/CHST L * * *Final Report* * * DATE OF EXAM: Aug 29 2021 12:26PM WOX [id number] - XR RIB/CHST 3V AP RIB/OBL/CHST L / PROCEDURE REASON: Rib pain on left side * * * * Physician Interpretation * * * * Chest, left RIBS, and right knee radiographs HISTORY: 51 years old Clinical information: Rib pain on left side pt fall, injured right knee during fall and then left ribs when her son lifted her up from the ground. TECHNIQUE: Images: XR RIB/CHST 3V AP RIB/OBL/CHST L, XR KNEE 4V AP/PA BOTH+LAT/DUSTY RT Comparison: None. Chest and left RIBS RESULT: No confluent infiltrate, effusion, or pneumothorax identified. Cardiac and mediastinal silhouettes are within normal limits. No left-sided rib fractures are seen. Right knee RESULT: Mild narrowing of the medial compartment joint space. Marginal osteophytes extending off tibial plateaus, femoral condyles, and posterior aspect of the patella. No fracture or dislocation. Carotid screws extending through the tibial tuberosity. Surgical hardware appears to be intact. Intra-articular bodies in the posterior joint space. IMPRESSION: No acute cardiopulmonary disease identified. No left-sided rib fractures. Osteoarthrosis of the right knee. 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: MALINDA Transcribe Date/Time: Aug 29 2021 12:33P Dictated by : CLARISSA CASTREJON MD This examination was interpreted and the report reviewed and electronically signed by: CLARISSA CASTREJON MD on Aug 29 2021 12:35PM EST [id number] Normal [facility] XR Ribs - left Views and Kate st PAon 08-29-2021 IMPRESSION: No acute cardiopulmonary disease identified. No left-sided rib fractures. Osteoarthrosis of the right knee. 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: MALINDA Transcribe Date/Time: Aug 29 2021 12:33P Dictated by : CLARISSA CASTREJON MD This examination was interpreted and the report reviewed and electronically signed by: CLARISSA CSATREJON MD on Aug 29 2021 12:35PM EST [email or web address]_NOT_USE_ DIVISION OF RADIOLOGY * * *Final Report* * * DATE OF EXAM: Aug 29 2021 12:26PM WOX [id number] - XR RIB/CHST 3V AP RIB/OBL/CHST L / PROCEDURE REASON: Rib pain on left side * * * * Physician Interpretation * * * * Chest, left RIBS, and right knee radiographs HISTORY: 51 years old Clinical information: Rib pain on left side pt fall, injured right knee during fall and then left ribs when her son lifted her up from the ground. TECHNIQUE: Images: XR RIB/CHST 3V AP RIB/OBL/CHST L, XR KNEE 4V AP/PA BOTH+LAT/DUSTY RT Comparison: None. Chest and left RIBS RESULT: No confluent infiltrate, effusion, or pneumothorax identified. Cardiac and mediastinal silhouettes are within normal limits. No left-sided rib fractures are seen. Right knee RESULT: Mild narrowing of the medial compartment joint space. Marginal osteophytes extending off tibial plateaus, femoral condyles, and posterior aspect of the patella. No fracture or dislocation. Carotid screws extending through the tibial tuberosity. Surgical hardware appears to be intact. Intra-articular bodies in the posterior joint space. ZZZ_DO_[id number]_ DIVISION OF RADIOLOGY Provider, [facility] * * *Final Report* * * DATE OF EXAM: Aug 29 2021 12:26PM WOX [id number] - XR RIB/CHST 3V AP RIB/OBL/CHST L / PROCEDURE REASON: Rib pain on left side * * * * Physician Interpretation * * * * Chest, left RIBS, and right knee radiographs HISTORY: 51 years old Clinical information: Rib pain on left side pt fall, injured right knee during fall and then left ribs when her son lifted her up from the ground. TECHNIQUE: Images: XR RIB/CHST 3V AP RIB/OBL/CHST L, XR KNEE 4V AP/PA BOTH+LAT/DUSTY RT Comparison: None. Chest and left RIBS RESULT: No confluent infiltrate, effusion, or pneumothorax identified. Cardiac and mediastinal silhouettes are within normal limits. No left-sided rib fractures are seen. Right knee RESULT: Mild narrowing of the medial compartment joint space. Marginal osteophytes extending off tibial plateaus, femoral condyles, and posterior aspect of the patella. No fracture or dislocation. Carotid screws extending through the tibial tuberosity. Surgical hardware appears to be intact. Intra-articular bodies in the posterior joint space. IMPRESSION IMPRESSION: No acute cardiopulmonary disease identified. No left-sided rib fractures. Osteoarthrosis of the right knee. 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: P[employer] Transcribe Date/Time: Aug 29 2021 12:33P Dictated by : CLARISSA CASTREJON MD This examination was interpreted and the report reviewed and electronically signed by: CLARISSA CASTREJON MD on Aug 29 2021 12:35PM EST [facility] XR Ribs - left Views and Kate st PAOrdered By: [facility] Provider on 08-29-2021 [facility] No Panel Information [facility] Vital Signs Date Time Vital Sign Value Performing Clinician Faci lity 08-29-2021 11:30-0400 Body temperature 97.59 [degF] Júnior Alvarado MD Work Phone: [facility] 08-29-2021 11:30-0400 Diastolic blood pressure 70 mm[Hg] Júnior Alvarado MD Work Phone: [facility] 08-29-2021 11:30-0400 Heart rate 145 /min Júnior Alvarado MD Work Phone: [facility] 08-29-2021 11:30-0400 Respiratory rate 16 /min Júnior Alvarado MD Work Phone: [facility] 08-29-2021 11:30-0400 SaO2% (BldA) [Mass fraction] 97 % Júnior Alvarado MD Work Phone: [facility] 08-29-2021 11:30-0400 Systolic blood pressure 124 mm[Hg] Júnior Alvarado MD Work Phone: [facility] Encounters Encounter Date Encounter Type Care Provider Facility Start: 02-04-2022 End: 02-04-2022 ambulatory WARREN BLANCO Facility:[facility] Start: 02-04-2022 End: 02-04-2022 Patient encounter procedure Warren Blanco MD Work Phone: Ophthalmology Comment on above: Type 2 diabetes severiano itus with both eyes affected by mild nonproliferative retinopathy without macular edema, without long-term current use of insulin (HCC) (Primary Dx); Combined forms of age-related cataract of both eyes; Meibomian gland dysfunction (MGD) of upper and lower lids of both eyes; Hypertension, unspecified type; Fibromyalgia; Pure hypercholesterolemia; Depression, unspecified depression type Start: 12-11-2021 End: 12-11-[address] SAPNA MURRAY DO [facility] Start: 08-29-2021 End: 08-29-2021 ambulatory SAPNA MURRAY Facility:[facility] Start: 08-29-2021 End: 08-29-2021 Subsequent hospital visit by physician [facility] Work Phone: Radiology Comment on above: Rib pain on left twila e [R07.81] Start: 08-29-2021 End: 08-29-2021 Patient encounter procedure Júnior Alvarado MD Work Phone: [facility] Comment on above: Rib pain on left twila e (Primary Dx); Acute pain of right knee; Leg weakness, bilateral; Chronic bilateral low back pain with bilateral sciatica Procedures Date Procedure Procedure Detail Performing Clinician Start: 02-04-2022 IOL BIOMETRY W/ IOL CALC OU (BOTH EYES) Warren Blanco MD Work Phone: Start: 02-04-2022 End: 02-04-2022 Computerized ophthalmic imaging retina Warren Blanco MD Work Phone: Start: 08-29-2021 Radex ribs uni w/posteroant ch minimum 3 views Júnior Alvarado MD Work Phone: Start: 08-29-2021 Radiologic exam knee complete 4/more views Júnior Alvarado MD Work Phone: Plan of Treatment Date Care Activity Detail Author Start: 12-06-2023 Covid-19 Vaccine ( season) Covid-19 Vaccine ( season) [facility] Start: 12-06-2023 Influenza vaccination Influenza Vacc ine (#1) [facility] Start: 02-04-2023 Glaucoma screening Dilated Retinal E xam [facility] Start: 02-04-2023 Hepatitis C antibody , confirmatory test DILATED RETINAL EXAM [facility] Start: 08-29-2022 BP CONTROLLED (<130/80) BP CONTROLLE D (<130/80) [facility] Start: 12-05-2021 Influenza vaccination [facility] Start: 08-29-2021 Shingrix Vaccine (2 of 2) Shingrix V accine (2 of 2) [facility] Start: 06-20-2021 SHINGRIX VACCINE (1 of 2) SHINGRIX V ACCINE (1 of 2) [facility] Start: 06-20-2016 COLOGUARD (FIT-DNA) COLOGUARD (FIT-D NA) [facility] Start: 06-20-2016 Colonoscopy COLONOSCOPY [facility] Start: 06-20-2016 COLORECTAL CANCER SCREENING COLORECTAL CANCER SCREENING [facility] Start: 06-20-[address] COLONOGRAPHY [facility] Start: 06-20-2016 FECAL OCCULT BLOOD FECAL OCCULT BLOO D [facility] Start: 06-20-2016 Screening for malign ant neoplasm of colon [facility] Start: 06-20-2016 SIGMOIDOSCOPY SIGMOIDOSCOPY [facility] Start: 2011 Mammography MAMMOGRAM [facility] Start: 2011 Screening for malign ant neoplasm of breast Mammogram Screening [facility] Start: 06-20-2001 HPV TESTING HPV TESTING [facility] Start: 06-20-1992 PAP TESTING PAP TESTING [facility] Start: 06-20-1992 Screening for malign ant neoplasm of cervix Cervical Cancer Screening [facility] Start: 06-20-1990 HEPATITIS B (1 of 3 - Risk 3-dose series) HEPATITIS B (1 of 3 - Risk 3-dose series) [facility] Start: 06-20-1990 Hepatitis B Vaccine (1 of 3 - 19+ 3-dose series) Hepatitis B Vaccine (1 of 3 - 19+ 3-dose series) [facility] Start: 06-20-1990 Urine microalbumin profile [facility] Start: 06-20-1989 ANNUAL PCP TEAM WHOLESALE ACCOUNT MANAGER PREM DISEASE VISIT ANNUAL PCP TEAM CHRONIC DISEASE VISIT [facility] Start: 06-20-1989 Anxiety Screening Anxiety Screening [facility] Start: 06-20-1989 BP Controlled (<130/80) BP Controlle d (<130/80) [facility] Start: 06-20-1989 Hepatitis B surface antibody level LDL CHOLESTEROL [facility] Start: 06-20-1989 HEPATITIS C SCREENING [facility] Start: 06-20-1989 Hepatitis C screening Hepatitis C Sc [facility] Start: 06-20-1989 HIV SCREENING HIV SCREENING [facility] Start: 06-20-1989 HIV screening HIV Screening [facility] Start: 06-20-1989 SPIROMETRY SPIROMETRY [facility] Start: 06-20-1981 3 comp foot exam completed DIABETIC FOOT EXAM [facility] Start: 06-20-1981 Diabetic foot examination Diabetic F oot Exam [facility] Start: 06-20-1981 Hepatitis B screening URINE AL BUMIN:CREATININE RATIO [facility] Start: 06-20-1981 Hepatitis C antibody , confirmatory test DILATED RETINAL EXAM [facility] Start: 06-20-1977 PNEUMOCOCCAL (1 - PCV) PNEUMOCOCCAL (1 - PCV) [facility] Start: 06-20-1977 Pneumococcal vaccination Pneum ococcal Vaccine (1 of 2 - PCV) [facility] Start: 06-20-1976 COVID-19 VACCINE (#1) COVID-19 VACCI NE (#1) [facility] Start: 06-20-1976 Hemoglobin A1c measurement HbA1C [facility] Start: 06-20-1976 Hemoglobin A1c/Hemoglobin.total in Blood HBA1C [facility] Start: 1971 COVID-19 VACCINE (#1) COVID-19 VACCI NE (#1) [facility] Start: 1971 HEPATITIS B (1 of 3 - 3-dose series) HEPATITIS B (1 of 3 - 3-dose series) [facility] Immunizations Immunization Date Immunization Notes Care Provider Jaren campos 03-08-2020 influenza virus vacc ine, unspecified formulation Xr Moshe Work Phone: [facility] Payers Date Payer Category Payer Medicaid [employer] [id number] 2011-Present [phone] [address] [place] [address] Medicaid [id number] 2011 Medicaid [id number] 2011 Medicaid [id number] Social History Date Type Detail Facility Start: 01-22-2015 Tobacco smoking stat [facility] Ex-smoker [facility] End: 01-16-1989 History of tobacco use Current smoker [facility] Start: 08-29-2021 End: 11-21-2021 Alcohol intake Current drinker of alcohol (finding) [facility] Start: 1970 Sex Assigned At Not on file [facility] Start: 08-19-2021 End: 02-04-2022 Exposure to SARS-CoV-2 (event) Not sure [facility] Work Phone: End: 01-16-1989 History of tobacco use Cigarette Smoker [facility] Start: 01-22-2015 Tobacco use and exposure Smokeless tobacco non-user [facility] Start: 08-29-2021 History of Social function [facility] Start: 08-29-2021 Tobacco use panel [facility] Medical Equipment Procedure Code Equipment Code Equipment Origin al Text Equipment Identifier Dates four times daily . Use as instructed Comment on above: four times daily. Us e as instructed Clinical Notes 05-23-2015 to 02-04-2022 Warren Blanco MD - 02/04/2022 11:30 AM EDTPatient Chato Alvarado MD - 08/29/2021 11:33 AM EDT Note Date & Type Note Facility 02-04-2022 Note HNO ID: [id number] Author: Warren Blanco MD Service: ? Author Type: Physician Type: Progress Notes Filed: 02/04/2022 11:33 AM Note Text: ASSESSMENT/PLAN: 1. Type 2 diabetes mellitus with both eyes affected by mild nonproliferative retinopathy without macular edema, without long-term current use of insulin (HCC) - ICD9: 250.50, 362.04, ICD10: E11.3293 (primary diagnosis) Please keep your blood sugar under good control to minimize risk of ocular complications from diabetes. 2. Combined forms of age-related cataract of both eyes - ICD9: 366.19, ICD10: H25.813 -monitor Patient to get new glasses from Dr. Boothe. 3. Meibomian gland dysfunction (MGD) of upper and lower lids of both eyes - ICD9: 373.00, ICD10: H02.88A, H02.88B Begin: Systane Complete Artificial Tears - Use 1 Drop into both eyes three times a day. Warm compresses - apply for 15 minutes 3 times daily. OcuSoft lid scrubs- wash eyelids at bedtime both eyes. Current Ophthalmic Meds erythromycin (ROMYCIN) 5 mg/gram (0.5 %) ophthalmic ointment Use 1 application in both eyes daily at bedtime. 4. Hypertension, unspecified type - ICD9: 401.9, ICD10: I10 5. Fibromyalgia - ICD9: 729.1, ICD10: M79.7 6. Pure hypercholesterolemia - ICD9: 272.0, ICD10: E78.00 7. Depression, unspecified depression type - ICD9: 311, ICD10: F32.A -continue care with PCP Warren Blanco MD I have confirmed and edited as necessary the relevant ophthalmic history, review of systems, surgical history, and ophthalmological examination findings as obtained by the ophthalmic technical staff. I have seen and examined Maria Isabel Vann. I have discussed the examination findings, diagnosis, and treatment options with Maria Isabel Vann and/or her family. I have also reviewed and agree with the assessment and plan as stated above and agree with all its relevant components. I gave the patient the opportunity to ask questions about the findings, diagnosis, and treatment options. [facility] 02-04-2022 History of Present illness Narrative ASSESSMENT/PLAN: 1. Type 2 diabetes mellitus with both eyes affected by mild nonproliferative retinopathy without macular edema, without long-term current use of insulin (HCC) - ICD9: 250.50, 362.04, ICD10: E11.3293 (primary diagnosis) Please keep your blood sugar under good control to minimize risk of ocular complications from diabetes. 2. Combined forms of age-related cataract of both eyes - ICD9: 366.19, ICD10: H25.813 -monitor Patient to get new glasses from Dr. Boothe. 3. Meibomian gland dysfunction (MGD) of upper and lower lids of both eyes - ICD9: 373.00, ICD10: H02.88A, H02.88B Begin: Systane Complete Artificial Tears - Use 1 Drop into both eyes three times a day. Warm compresses - apply for 15 minutes 3 times daily. OcuSoft lid scrubs- wash eyelids at bedtime both eyes. Current Ophthalmic Meds erythromycin (ROMYCIN) 5 mg/gram (0.5 %) ophthalmic ointment Use 1 application in both eyes daily at bedtime. 4. Hypertension, unspecified type - ICD9: 401.9, ICD10: I10 5. Fibromyalgia - ICD9: 729.1, ICD10: M79.7 6. Pure hypercholesterolemia - ICD9: 272.0, ICD10: E78.00 7. Depression, unspecified depression type - ICD9: 311, ICD10: F32.A -continue care with PCP Warren Blanco MD I have confirmed and edited as necessary the relevant ophthalmic history, review of systems, surgical history, and ophthalmological examination findings as obtained by the ophthalmic technical staff. I have seen and examined Maria Isabel Vann. I have discussed the examination findings, diagnosis, and treatment options with Maria Isabel Vann and/or her family. I have also reviewed and agree with the assessment and plan as stated above and agree with all its relevant components. I gave the patient the opportunity to ask questions about the findings, diagnosis, and treatment options. documented in this encounter [facility] 02-04-2022 Instructions Warren Blanco MD - 02/04/2022 11:00 AM EDT Begin: Systane Complete Artificial Tears - Use 1 Drop into both eyes three times a day. Warm compresses - apply for 15 minutes 3 times daily. OcuSoft lid scrubs- wash eyelids at bedtime both eyes. Current Ophthalmic Meds erythromycin (ROMYCIN) 5 mg/gram (0.5 %) ophthalmic ointment Use 1 application in both eyes daily at bedtime. If you have any questions please contact our office at [phone]. After office hours or on the weekend, please call Dr. Blanco on his cell phone at [phone]. documented in this encounter [facility] 08-29-2021 Note HNO ID: [id number] Author: RT Yoandy(R) Service: ? Author Type: Environmental Engineer Type: Progress Notes Filed: 08/29/2021 12:28 PM Note Text: Radiology Service Progress Note PATIENT NAME: Maria Isabel Vann DATE OF SERVICE: August 29, 2021 TIME: 11:56 AM PATIENT IDENTITY VERIFICATION COMPLETED USING TWO (2) IDENTIFIERS: Name and Date of confirmed by patient verbally. FALL SCREENING: Has the patient had 2 falls in the last year or 1 fall with injury or currently using an Ambulatory Assistive Device (Walker, Cane, Wheelchair, Crutches, etc.)? No PATIENT GENDER DATA: Female. status: : No status: NO. PATIENT RELEVANT IMPLANT DATA REVIEWED: Yes RADIOLOGY DEPARTMENT: General X-ray: Exam(s) Completed: Rib X-Ray: Left Lower Extremity X-Ray(s): Knee, AP / Lat / Tunne / Merchant Right PERIPHERAL IV DATA: Not applicable SIGNED BY: RT Yoandy(R) August 29, 2021 11:56 AM [facility] 08-29-2021 Note HNO ID: [id number] Author: Júnior Alvarado MD Service: ? Author Type: Physician Type: Progress Notes Filed: 08/29/2021 1:28 PM Note Text: Patient presents with: Pain: Pt reported fall/lifting x6 days, (LT) rib pain rated 6, Pain: (RT) leg pain rated 8, ongoing BS AM 187 HPI: Leg pain: Duration: Leg pain started after 3rd hospitalization in April. Reports admitted for COVID, diabetic ketoacidosis, and bacterial pneumonia. ER visit in July for low back with sciatic pain. Fell twice last weekend and felt something pop in her left ribs when her son pulled her up. Fell again and hurt her right knee 2 days ago. She presents to the [facility] today because she cannot take the pain which has been present since April any more. Character: Left rib constant, right knee sharp/constant dull. Location: Left lower ribs below the axilla, right knee Radiation: No. Aggravating: Coughing, sneezing Relieving: oxycodone from PCP helped some, vicodin from the ER did not help Pain relievers: Tylenol, . Associated: Leg weakness, R>L numbness, shallow breathing. Pertinent negatives: Denies fever loss of bladder or bowel control, shortness of breath Imaging: xrays at hospital Physical Therapy: Unable to tolerate b/c of pain, needs done before MRI PAST MEDICAL HISTORY Diagnosis Date - Bursitis - Carpal tunnel syndrome Bilateral - Chronic fatigue - Chronic headaches - Diabetes (HCC) - Fibromyalgia - GERD (gastroesophageal reflux disease) - HTN (hypertension) - ADELINE (obstructive sleep apnea) - Primary generalized (osteo)arthritis - Sinusitis, chronic - Tendonitis MEDICATIONS: ondansetron (ZOFRAN) 8 mg tablet DULoxetine (CYMBALTA) 60 mg capsule levocetirizine dihydrochloride (XYZAL ORAL) Take by mouth. insulin aspart (NOVOLOG) 100 unit/mL soln Inject 30 Units subcutaneously once daily. Before meals aspirin, enteric coated (ASPIRIN, ENTERIC COATED) 81 mg EC tablet Take 81 mg by mouth once daily. gabapentin (NEURONTIN) 300 mg capsule Take 300 mg by mouth four times daily. fenofibrate (LOFIBRA) 67 mg capsule Take 67 mg by mouth once daily. Insulin Syringe-Needle U-100 (BD ULTRAFINE INSULIN) 1 mL 31 x 5/16 syrg five times daily. insulin glargine (LANTUS) 100 unit/mL injection Inject subcutaneously once daily. 70 units SC in AM, 80 units SC in PM blood sugar diagnostic (TRUETRACK TEST) test strip four times daily. Use as instructed metFORMIN (GLUCOPHAGE) 1,000 mg tablet Take 1,000 mg by mouth twice daily with meals. ergocalciferol, vitamin D2, (DRISDOL) 50,000 unit capsule Take 50,000 Units by mouth once each week. lisinopril 2.5 mg tablet Take 2.5 mg by mouth once daily. omeprazole (PRILOSEC) 20 mg capsule Take 20 mg by mouth once daily. diphenhydrAMINE (BENADRYL) 25 mg capsule Take 25 mg by mouth as needed. loratadine 10 mg cap Take 10 mg by mouth once daily. ALLERGIES: ALLERGIES Allergen Reactions - Lodine [Etodolac] Swelling - Seasonal Allergies Itching VITALS: BP 124/70 Pulse (!) 145 Temp 36.4 ?C (97.6 ?F) Resp 16 LMP 05/19/2015 SpO2 97% PHYSICAL EXAM: GEN: pleasant, no acute distress, alert, ambulates with a walker HEART: fast rate, regular rhythm, no murmurs LUNGS: clear to auscultation, no wheezes or crackles, no increased WOB RIBS: Tender ~T9 in the left mid axillary line. Non tender anterior and posterior ribs. EXT: no cyanosis, no edema, bilateral leg atrophy BACK: Normal curvature of spine. No midline tenderness. Lower lumbar paraspinal tenderness. Straight leg test negative. Bilateral decreased lower extremity strength. KNEE: right compared to left. No erythema, effusion, or deformity. Abrasion anterior medial knee. FROM with pain. No crepitus. medial joint line tenderness. Stable to varus and valgus strain. Negative anterior drawer test. Negative posterior drawer test. ASSESSMENT/PLAN: 1. Rib pain on left side - ICD9: 786.50, ICD10: R07.81 (primary diagnosis) - XR RIBS/CHEST 3V AP RIB/OBLS/CXR LEFT - no acute fracture. Left rib strain from being lifted. Expectant management. Follow up with worsening cough, shortness of breath, chest pain, or late onset fever. 2. Acute pain of right knee - ICD9: 719.46, ICD10: M25.561 - XR KNEE GENERAL 4V AP BOTH/PA BOTH/LAT/MERC RIGHT - no acute fractures. Remote tibal screws from patellar tendon repositioning and degenerative joint changes. Reassured of no acute fracture. 3. Leg weakness, bilateral - ICD9: 729.89, ICD10: R29.898 4. Chronic bilateral low back pain with bilateral sciatica - ICD9: 724.2, 724.3, 338.29, ICD10: M54.42, M54.41, G89.29 Differential includes lumbar impingement with radicular symptoms, peripheral neuropathy, Gillain Sherwood. Continue management with primary care. Hospital and ER records are not readily available for review and chronic pain management is beyond the scope of care available in [facility]. Júnior Alvarado MD [facility] 08-29-2021 History of Present illness Narrative Patient presents with: Pain: Pt reported fall/lifting x6 days, (LT) rib pain rated 6, Pain: (RT) leg pain rated 8, ongoing BS AM 187 HPI: Leg pain: Duration: Leg pain started after 3rd hospitalization in April. Reports admitted for COVID, diabetic ketoacidosis, and bacterial pneumonia. ER visit in July for low back with sciatic pain. Fell twice last weekend and felt something pop in her left ribs when her son pulled her up. Fell again and hurt her right knee 2 days ago. She presents to the [facility] today because she cannot take the pain which has been present since April any more. Character: Left rib constant, right knee sharp/constant dull. Location: Left lower ribs below the axilla, right knee Radiation: No. Aggravating: Coughing, sneezing Relieving: oxycodone from PCP helped some, vicodin from the ER did not help Pain relievers: Tylenol, . Associated: Leg weakness, R>L numbness, shallow breathing. Pertinent negatives: Denies fever loss of bladder or bowel control, shortness of breath Imaging: xrays at hospital Physical Therapy: Unable to tolerate b/c of pain, needs done before MRI PAST MEDICAL HISTORY Diagnosis Date Bursitis Carpal tunnel syndrome Bilateral Chronic fatigue Chronic headaches Diabetes (HCC) Fibromyalgia GERD (gastroesophageal reflux disease) HTN (hypertension) ADELINE (obstructive sleep apnea) Primary generalized (osteo)arthritis Sinusitis, chronic Tendonitis MEDICATIONS: ondansetron (ZOFRAN) 8 mg tablet DULoxetine (CYMBALTA) 60 mg capsule levocetirizine dihydrochloride (XYZAL ORAL) Take by mouth. insulin aspart (NOVOLOG) 100 unit/mL soln Inject 30 Units subcutaneously once daily. Before meals aspirin, enteric coated (ASPIRIN, ENTERIC COATED) 81 mg EC tablet Take 81 mg by mouth once daily. gabapentin (NEURONTIN) 300 mg capsule Take 300 mg by mouth four times daily. fenofibrate (LOFIBRA) 67 mg capsule Take 67 mg by mouth once daily. Insulin Syringe-Needle U-100 (BD ULTRAFINE INSULIN) 1 mL 31 x 5/16 syrg five times daily. insulin glargine (LANTUS) 100 unit/mL injection Inject subcutaneously once daily. 70 units SC in AM, 80 units SC in PM blood sugar diagnostic (TRUETRACK TEST) test strip four times daily. Use as instructed metFORMIN (GLUCOPHAGE) 1,000 mg tablet Take 1,000 mg by mouth twice daily with meals. ergocalciferol, vitamin D2, (DRISDOL) 50,000 unit capsule Take 50,000 Units by mouth once each week. lisinopril 2.5 mg tablet Take 2.5 mg by mouth once daily. omeprazole (PRILOSEC) 20 mg capsule Take 20 mg by mouth once daily. diphenhydrAMINE (BENADRYL) 25 mg capsule Take 25 mg by mouth as needed. loratadine 10 mg cap Take 10 mg by mouth once daily. ALLERGIES: ALLERGIES Allergen Reactions Lodine [Etodolac] Swelling Seasonal Allergies Itching VITALS: BP 124/70 Pulse (!) 145 Temp 36.4 C (97.6 F) Resp 16 LMP 05/19/2015 SpO2 97% PHYSICAL EXAM: GEN: pleasant, no acute distress, alert, ambulates with a walker HEART: fast rate, regular rhythm, no murmurs LUNGS: clear to auscultation, no wheezes or crackles, no increased WOB RIBS: Tender ~T9 in the left mid axillary line. Non tender anterior and posterior ribs. EXT: no cyanosis, no edema, bilateral leg atrophy BACK: Normal curvature of spine. No midline tenderness. Lower lumbar paraspinal tenderness. Straight leg test negative. Bilateral decreased lower extremity strength. KNEE: right compared to left. No erythema, effusion, or deformity. Abrasion anterior medial knee. FROM with pain. No crepitus. medial joint line tenderness. Stable to varus and valgus strain. Negative anterior drawer test. Negative posterior drawer test. ASSESSMENT/PLAN: 1. Rib pain on left side - ICD9: 786.50, ICD10: R07.81 (primary diagnosis) - XR RIBS/CHEST 3V AP RIB/OBLS/CXR LEFT - no acute fracture. Left rib strain from being lifted. Expectant management. Follow up with worsening cough, shortness of breath, chest pain, or late onset fever. 2. Acute pain of right knee - ICD9: 719.46, ICD10: M25.561 - XR KNEE GENERAL 4V AP BOTH/PA BOTH/LAT/MERC RIGHT - no acute fractures. Remote tibal screws from patellar tendon repositioning and degenerative joint changes. Reassured of no acute fracture. 3. Leg weakness, bilateral - ICD9: 729.89, ICD10: R29.898 4. Chronic bilateral low back pain with bilateral sciatica - ICD9: 724.2, 724.3, 338.29, ICD10: M54.42, M54.41, G89.29 Differential includes lumbar impingement with radicular symptoms, peripheral neuropathy, Gillain Sherwood. Continue management with primary care. Hospital and ER records are not readily available for review and chronic pain management is beyond the scope of care available in [facility]. Júnior Alvarado MD documented in this encounter [facility] 05-23-2015 History of Past i llness Narrative Problem Noted Date Resolved Date Second degree uterine prolaps 05/23/2015 Cystocele, midline 05/23/2015 07/06/2015 ASCUS with positive high risk HPV 01/22/2015 07/06/2015 Menorrhagia with irregular cycle 01/22/2015 07/06/2015 Irregular menstrual cycle 01/22/20152015 documented as of this encounter (statuses as of 08/29/2021) [facility] History of Past illness Narrative* Problem Noted Date Resolved Date Second degree uterine prolaps 05/23/2015 Cystocele, midline 05/23/2015 07/06/2015 ASCUS with positive high risk HPV 01/22/2015 07/06/2015 Menorrhagia with irregular cycle 01/22/2015 07/06/2015 Irregular menstrual cycle 01/22/20152015 documented as of this encounter (statuses as of 02/04/2022) [facility] No data available for this section [facility] Evaluation note* Diagnosis Rib pain on left side- Primary Chest pain, unspecified Acute pain of right knee Leg weakness, bilateral Other musculoskeletal symptoms referable to limbs Chronic bilateral low back pain with bilateral sciatica documented in this encounter [facility] note* Diagnosis Type 2 diabetes mellitus with both eyes affected by mild nonproliferative retinopathy without macular edema, without long-term current use of insulin (HCC)- Primary Combined forms of age-related cataract of both eyes Other and combined forms of senile cataract Meibomian gland dysfunction (MGD) of upper and lower lids of both eyes Hypertension, unspecified type Fibromyalgia Mylagia and myositis, unspecified Pure hypercholesterolemia Depression, unspecified depression type documented in this encounter [facility] note* Diagnosis Rib pain on left side Chest pain, unspecified Acute pain of right knee documented in this encounter [facility] Discharge instructions No data available for this section [facility] progress note No data available for this section [facility] reason for referral (narrative)* Diagnostic Procedure Only (Urgent) - Closed Specialty Diagnoses / Procedures Referred By Contac t Referred To Contact XR IMAGING Diagnoses Acute pain of right knee Procedures XR KNEE GENERAL 4V AP BOTH/PA BOTH/LAT/MERC RIGHT RADIOLOGIC EXAM KNEE COMPLETE 4/MORE VIEWS Júnior Alvarado MD [facility] [place] [address] Xr Imaging Referral ID Status Reason Start Date Expiration Date V isits Requested Visits Authorized [id number] Closed Auto-Generate d Referral 08/29/2021 09/28/2022 1 1 * Diagnostic Procedure Only (Urgent) - Closed Specialty Diagnoses / Procedures Referred By Contac t Referred To Contact XR IMAGING Diagnoses Rib pain on left side Procedures XR RIBS/CHEST 3V AP RIB/OBLS/CXR LEFT RADEX RIBS UNI W/POSTEROANT CH MINIMUM 3 VIEWS Júnior Alvarado MD [facility] [place] [address] Xr Imaging Referral ID Status Reason Start Date Expiration Date V isits Requested Visits Authorized [id number] Closed Auto-Generate d Referral 08/29/2021 09/28/2022 1 1 [facility] for referral (narrative)* Diagnostic Procedure Only (Urgent) - Closed Specialty Diagnoses / Procedures Referred By Contac t Referred To Contact XR IMAGING Diagnoses Acute pain of right knee Procedures XR KNEE GENERAL 4V AP BOTH/PA BOTH/LAT/MERC RIGHT RADIOLOGIC EXAM KNEE COMPLETE 4/MORE VIEWS Júnior Alvarado MD [address] [place] [address] [place] [address] Referral ID Status Reason Start Date Expiration Date V isits Requested Visits Authorized [id number] Closed Auto-Generate d Referral 08/29/2021 09/28/2022 1 1 * Diagnostic Procedure Only (Urgent) - Closed Specialty Diagnoses / Procedures Referred By Contac t Referred To Contact XR IMAGING Diagnoses Rib pain on left side Procedures XR RIBS/CHEST 3V AP RIB/OBLS/CXR LEFT RADEX RIBS UNI W/POSTEROANT CH MINIMUM 3 VIEWS Júnior Alvarado MD [address] [place] [address] [place] [address] Referral ID Status Reason Start Date Expiration Date V isits Requested Visits Authorized [id number] Closed Auto-Generate d Referral 08/29/2021 09/28/2022 1 1 [facility] for visit Narrative* Diagnostic Procedure Only (Urgent) - Closed Specialty Diagnoses / Procedures Referred By Contac t Referred To Contact XR IMAGING Diagnoses Acute pain of right knee Procedures XR KNEE GENERAL 4V AP BOTH/PA BOTH/LAT/MERC RIGHT RADIOLOGIC EXAM KNEE COMPLETE 4/MORE VIEWS Júnior Alvarado MD [address] [place] [address] [place] [address] Referral ID Status Reason Start Date Expiration Date V isits Requested Visits Authorized [id number] Closed Auto-Generate d Referral 08/29/2021 09/28/2022 1 1 [facility] Summary Purpose Family History No Family History Records Found Advance Directives No Advanced Directives Records Found Additional Source Comments Source Comments (unrecognize d section and content) In the event this informatio n is protected by the Federal Confidentiality of Alcohol and Drug Abuse Patient Records regulations: The Federal rules restrict any use of the information to criminally investigate or prosecute any alcohol or drug abuse patient.[facility] the event this information is protected by the Federal Confidentiality of Alcohol and Drug Abuse Patient Records regulations: The Federal rules restrict any use of the information to criminally investigate or prosecute any alcohol or drug abuse patient.[facility] the event this information is protected by the Federal Confidentiality of Alcohol and Drug Abuse Patient Records regulations: The Federal rules restrict any use of the information to criminally investigate or prosecute any alcohol or drug abuse patient.[facility] Reason for Visit (unrecogniz ed section and content) Reason Comments Pain Pt reported fall/lif ting x6 days, (LT) rib pain rated 6, Pain (RT) leg pain rated 8, ongoing BS AM 187 Reason Comments Diabetic Retinopathy Follow Up Blurred Vision Left Eye Getting worse in last few years Care Teams (unrecognized sec tion and content) [facility] Relationship Specialty Start Date End Date Sapna Murray DO PCP - General 01/24/15 [facility] Relationship Specialty Start Date End Date Sapna Murray DO PCP - General 01/24/15 [facility] Relationship Specialty Start Date End Date Sapna Murray DO PCP - General 01/24/15 Care Team (unrecognized sect ion and content) Care Team Personnel Name: RENE ZELAYA MD Member Role: Primary Care Physician Address: Address: [facility] [address] Care Team Related Persons Name: EFFIE VANN Name: EFFIE VANN INFORMATION SOURCE (unrecogn ized section and content) DATE CREATED AUTHOR 02/05/2022 [facility] FOR RECORDS PERTAINING TO PATIENTS WHO ARE OR HAVE BEEN ENROLLED IN A CHEMICAL DEPENDENCY/SUBSTANCEABUSE PROGRAM, SOME INFORMATION MAY BE OMITTED. This clinical summary was aggregated from multiple sources. Caution should be exercised in using it in the provision of clinical care. This summary normalizes information from multiple sources, and as a consequence, information in this document may materially change the coding, format and clinical context of patient data. In addition, data may be omitted in some cases. CLINICAL DECISIONS SHOULD BE BASED ON THE PRIMARY CLINICAL RECORDS. [facility] [employer] provides no warranty or guarantee of the accuracy or completeness of information in this document.
[2024-01-15 16:04] VITALS: BP 136/69; PULSE 78; RESP 16; TEMP 36.6; O2SAT 98
--- NOTE | 2024-01-15 16:26 | PCM.HP.STD ---
HPI - General General Date of Admission: 01/15/24 Date of Service: 01/15/24 Chief Complaint: Fells unwell, left sided groin abscess HPI Narrative EMILY CAGE, is a 53 F with history of diabetes, GERD, fibromyalgia who presented to [facility] ED 01/15/2024 feeling unwell since this morning. Reports that she has been sick off and on and will have 3 days where she just does not want to get out of bed and has fibro flares because she has been feeling generally unwell she has not been taking her insulin. Today she was at her mom's and suddenly became lightheaded and felt like she Stumbling and mumbling prompting her to come to the ED. She endorses she has had a boil in her left groin for 2 weeks that is progressively gotten bigger more so over the past few days. Saw her PCP on Thursday and was started on Doxy but due to feeling unwell today being concerned that her glucose was elevated she presented to the ED. In the ED glucose was indeed 42 however patient not in DKA. In the ED left groin was I&D and pus was expressed and sent for culture, patient placed on Unasyn and hospitalist contacted for admission. Patient reports history as above, reports she is feeling much better now. Does not think she has had any fevers, does at times get a dry cough but thinks that is from having dry mouth. Had been feeling unwell and tired and nauseous but not feeling that way at this time. Reports she had been taking her insulin she was not feeling like taking her insulin but she did take it this morning because of how she was feeling. [facility] Medical History Abdominal panniculus, symptomatic B[place] (acute kidney injury) Anxiety Arthritis Back problem Bursitis Carpal tunnel syndrome Depression Diabetes Diabetes mellitus Diabetes mellitus Excessive body weight loss Fibromyalgia Fibromyalgia Former smoker GERD (gastroesophageal reflux disease) Headache HLD (hyperlipidemia) Hypoxia Intertrigo Lumbar back pain Multiple falls Osteoarthritis Panniculitis Pneumonia due to COVID-19 virus Seasonal allergic conjunctivitis Sleep apnea ULCERS Vision problems Vitamin deficiency Home Medications ?Medication ?Instructions ?Recorded ?Last Taken ?Type omeprazole 20 mg capsule,delayed 20 mg PO DAILY gerd 03/23/21 04/06/21 History release duloxetine 60 mg capsule,delayed 60 mg PO BID depression 04/07/21 Unknown History release fenofibrate micronized 67 mg 67 mg PO BID HLD 04/07/21 Unknown History capsule aspirin 81 mg tablet 81 mg PO DAILY heart health 04/19/21 Unknown History insulin lispro 100 unit/mL 20 unit (0.2 mL) subcut TIDAC 04/23/21 Unknown Rx subcutaneous pen (Humalog KwikPen blood suagr 30 days #18 mL (U-100) Insulin) cholecalciferol (vitamin D3) 1,250 1,250 mcg PO QWEEK vitamin 05/22/21 Unknown History mcg (50,000 unit) capsule diphenhydramine HCl 25 mg capsule 50 mg PO BID PRN Itching 05/22/21 Unknown History (Benadryl) ondansetron HCl 8 mg tablet 8 mg PO Q8H PRN Nausea 05/22/21 Unknown History insulin glargine 100 unit/mL (3 50 - 75 units subcut BID blood 10/30/21 Unknown History mL) subcutaneous pen (Lantus sugar Solostar U-100 Insulin) metformin 500 mg tablet,extended 1,000 mg PO BID diabetes 12/07/23 Unknown History release 24 hr Allergy/AdvReac Type Severity Reaction Status Date / Time etodolac (From [facility]) Allergy Rash Verified 01/15/24 12:24 Family History Mother Arthritis Hypertension Melanoma Father Arthritis Bleeding disorder Diabetes Heart disease High cholesterol Son Kidney disease H/O psychiatric care Uncle Alcoholism Liver disease Grandmother Arthritis Cancer Lung cancer Sister Epilepsy Melanoma Skin cancer Aunt CVA (cerebral vascular accident) Surgical History H/O knee surgery History of carpal tunnel surgery History of hysterectomy Social History (Updated 01/15/24 @ 12:31 by Katherine Hull) household members: none housing: house Smoking Status: Former smoker how long ago did patient quit smoking: Quit ~ 30 years prior. alcohol intake: current alcohol intake frequency: holidays/special occasions only substance use type: does not use ROS ROS Narrative General: Denies fever/chills HENT: Occasional headaches, denies stuffy nose, dry throat EYES: Sometimes will get blurry vision Resp: Dry cough when throat is sore, denies shortness of breath Cardiac: Denies chest pain GI: Denies abdominal pain, denies changes in bowel, had some nausea earlier but this is resolved : Urinates frequently Extremity: Denies swelling MSK: Denies weakness Neuro: No new numbness or tingling Heme: Denies any bleeding or bruising Skin: Has left-sided groin lesion status post I&D with some pain and drainage Psychiatric: No complaints voiced Vital Signs Vital Signs Vital Signs: 01/15/24 12:21 01/15/24 12:30 01/15/24 14:21 Temperature 98.5 F Temperature Source Oral Pulse Rate 106 H 78 Respiratory Rate 16 16 Respiratory Effort Normal Non-Labored Respiratory Pattern Normal Blood Pressure 120/69 113/63 Blood Pressure Mean 86 79 Pulse Ox 100 98 Oxygen Delivery Method Room Air Room Air 01/15/24 16:00 01/15/24 16:04 Temperature 98 F Temperature Source Pulse Rate 78 78 Respiratory Rate 16 16 Respiratory Effort Respiratory Pattern Blood Pressure 136/69 H 136/69 H Blood Pressure Mean 91 91 Pulse Ox 98 98 Oxygen Delivery Method Room Air Physical Exam Narrative General: Alert, oriented, no apparent distress HEENT: Atraumatic, normocephalic Eyes: Anicteric, normal conjunctiva, extraocular movements grossly intact Neck: Supple Respiratory: Clear to auscultation bilaterally, normal respiratory effort Cardiovascular: Regular rate and rhythm GI: Soft, nontender, nondistended Extremities: No edema Musculoskeletal: Moving all extremities Neuro: No overt focal neurological deficits Skin: Patient with left groin abscess status post I&D, erythema around left groin with some induration, status post I&D and no further pus able to be expressed. Patient reports pain is better than it was Psych: Cooperative Results Lab / Micro Data 01/15/24 13:36 01/15/24 13:36 Labs: Laboratory Results - last 24 hr 01/15/24 12:28: POC Glucose > 500 H* 01/15/24 13:36: WBC 8.1, RBC 4.18 L, Hgb 11.7 L, Hct 34.8 L, MCV 83.3, MCH 28.0, MCHC 33.6, RDW Std Deviation 38.1, RDW Coeff of Elio 12.4, Plt Count 190, MPV 10.3, Immature Gran % (Auto) 4.300 H, Neut % (Auto) 60.7, Lymph % (Auto) 18.8 L, [place] % (Auto) 13.3 H, Eos % (Auto) 1.7, Baso % (Auto) 1.2 H, Absolute Neuts (auto) 4.9, Absolute Lymphs (auto) 1.53, Nucleated RBC % 0, Sodium 128 L, Potassium 3.6, Chloride 93 L, Carbon Dioxide 23.0, Anion Gap 13, BUN 34 H, Creatinine 1.34 H, Est GFR (MDRD) Af Amer 53 L, Est GFR (MDRD) Non-Af 44 L, BUN/Creatinine Ratio 25.4 H, Glucose 482 H*, Lactic Acid 1.3, Calcium 9.5, Acetone Level NEGATIVE 01/15/24 13:50: Urine Color Yellow, Urine Clarity Sl. Cloudy, Urine pH 6.0, Ur Specific Huntly 1.010, Urine Protein 100 H, Urine Glucose (UA) 1000 H, Urine Ketones Negative, Urine Occult Blood 150 H, Urine Nitrite Negative, Urine Bilirubin Negative, Urine Urobilinogen Normal, Ur Leukocyte Esterase 500 H, Urine RBC 0-5 SEEN, Urine WBC 5-10 SEEN, Ur Squamous Epith Cells 0-5 SEEN, Urine Bacteria 0 SEEN, Urine Mucus 0 SEEN 01/15/24 15:04: POC Glucose 425 H Imaging Radiology Impression Chest X-Ray 01/15/24 13:35 IMPRESSION: Normal x-ray examination of the chest. Electronically Signed: Carlos Pimentel MD at 14:54 EDT , Assessment & Plan Assessment/Plan (1) Hyperglycemia: PLAN: Plan #Left sided abdominal wall/upper groin abscess -Status post I&D in the ED -Pus was sent for culture -Lesion is superficial and was easily I indeed, do not think we need further imaging at this time -Pain control -Will place patient on vancomycin while awaiting cultures given purulence was drained from abscess #Type 2 diabetes mellitus -Glucose checks and sliding scale insulin -Patient has not been receiving her insulin at home so we will start at lower than what is on her medicine reconciliation and uptitrate -Not in DKA # Fibromyalgia -Continue duloxetine #GERD -Continue PPI #DVT ppx: Lovenox subcu Cari Reeves MD Time spent in the patient's overall evaluation,decision-making process, review of diagnostic data, adjustment of management, discussion with other providers, nursing nursing and ancillary staff involved in patient's care documentation, 56 Minutes Charges/Coding Visit Charges Inpatient E&M: 56013 Init Hosp L2
[2024-01-15 16:53] VITALS: BMI 29.9
[2024-01-15 17:01] VITALS: BMI 29.9
[2024-01-15 17:02] VITALS: BP 124/75; PULSE 96; RESP 16; TEMP 36.3; O2SAT 95
[2024-01-15] MEDS: Vancomycin HCl 2,000 MG in 0.9% Normal Saline (500mL Bag) 500 ML 250 MG IV (17:34)
[2024-01-15] MEDS: 0.9% Normal Saline (1000mL) 1,000 ML 100 ML IV (17:46)
[2024-01-15 18:37] LABS: Bedside Glucose 357 mg/dL (74-106)
--- NOTE | 2024-01-15 19:48 | PCM.RX.CS ---
Consult Antibiotic Management Pharmacy has been consulted to manage selected antibiotic: Vancomycin Type of Intervention Type of Consult: New start Suspected Infection Suspected Infection: Skin/Soft tissue Labs Labs: Sodium 128 mmol/L (136-145) L 01/15/24 13:36 Potassium 3.6 mmol/L (3.5-5.1) 01/15/24 13:36 Chloride 93 mmol/L (98-107) L 01/15/24 13:36 Carbon Dioxide 23.0 mmol/L (21.0-32.0) 01/15/24 13:36 Anion Gap 13 (5-15) 01/15/24 13:36 BUN 34 mg/dL (7-18) H 01/15/24 13:36 Creatinine 1.34 mg/dL (0.55-1.02) H 01/15/24 13:36 Est GFR (MDRD) Af Amer 53 mL/min (>60) L 01/15/24 13:36 Est GFR (MDRD) Non-Af 44 mL/min (>60) L 01/15/24 13:36 BUN/Creatinine Ratio 25.4 RATIO (10-20) H 01/15/24 13:36 Glucose 482 mg/dL (74-106) H* 01/15/24 13:36 Goal Trough Goal Trough: 15-20 mcg/mL Pharmacy Plan for Drug Dosing Pharmacy Plan for Drug Dosing: NEW IV VANCOMYCIN Consulting Physician: Dr. Reeves Indication: SSTI/ abdominal wall abscess Goal Trough: 15-20 SrCr: 1.34 CrCl: 51 mL/min Comments: Loading dose of 2g x1 ordered and administered 01/15/24 @5814 Vancomycin Dose: 750mg IV Q12hr to start 01/16/24 @0500 Pending Level: 01/17/24 @0430, prior to 4th total dose per protocol Pharmacy Service will continue to monitor and adjust dosing as required.
[2024-01-15 19:58] VITALS: BP 109/62; PULSE 90; RESP 18; TEMP 36.6; O2SAT 97
[2024-01-15] MEDS: Fenofibrate 48 MG Tablet PO (21:54)
[2024-01-15] MEDS: DULoxetine Hcl 60 MG Capsule PO (21:54)
[2024-01-15] MEDS: Insulin Lispro 100 UNIT/ML INSULN.PEN SC (21:58)
[2024-01-15] MEDS: Insulin Glargine-YFGN 100 UNIT/ML Pen 40 UNIT SC (21:59)
[2024-01-15 22:28] LABS: Bedside Glucose 420 mg/dL (74-106)
[2024-01-16 02:31] VITALS: BP 136/71; PULSE 85; RESP 18; TEMP 36.6; O2SAT 99
[2024-01-16] MEDS: Insulin Lispro 100 UNIT/ML INSULN.PEN SC (05:36)
[2024-01-16] MEDS: Vancomycin HCl 750 MG in 0.9% Normal Saline (250mL Bag) 250 ML 250 MG IV (05:38)
[2024-01-16 06:28] LABS: Absolute Neutrophil Count 2.6 X10^3/uL (2.0-7.7); Basophil# 0.04 X10^3/uL; Basophil% 0.8 % (0-1); Eosinophil# 0.11 X10^3/uL; Eosinophils% 2.3 % (0-5); Hematocrit 32.2 % (37-47); Hemoglobin 10.6 g/dL (12.0-15.0); Lymphocyte % 25.5 % (19-41); Mean Corp Hgb Conc 32.9 g/dL (32-36); Mean Platelet Vol. 9.8 fl (6.2-12.0); Monocyte# 0.52 X10^3/uL; NRBC Flagged by Analyzer 0 % (0-5); Neutrophil # 2.61 X10^3/uL (2.7-7.7); Neutrophil % 55.5 % (47-70); Platelet Count 154 K/mm3 (150-450); RBC Distribution Width CV 12.5 % (11.6-14.6); RBC Distribution Width SD 38.5 fl (35.1-43.9); Red Blood Count 3.79 M/mm3 (4.2-5.4); White Blood Count 4.7 K/mm3 (4.4-11.0)
[2024-01-16 07:04] LABS: Bedside Glucose 262 mg/dL (74-106)
[2024-01-16 07:14] LABS: ALB/GLOB Ratio 0.6 RATIO (0.9-2.4); AST(SGOT) 21 U/L (15-37); Alanine Aminotransfer ALT/SGPT 21 U/L (13-56); Albumin, Serum 2.3 g/dL (3.2-5.0); Alkaline Phosphatase 86 U/L (45-117); Anion Gap 6 (5-15); BUN 30 mg/dL (7-18); BUN/Creat Ratio 37.3 RATIO (10-20); Calcium,Total 8.6 mg/dL (8.5-10.1); Chloride 102 mmol/L (98-107); EST Glomerular Filtration Rate 79 mL/min (>60); Est Glom Filt Rate - Afr Amer 96 mL/min (>60); Estimated Creatinine Clearance 86.82 ml/min; Globulin 3.9 g/dL (2.2-4.2); Glucose 298 mg/dL (74-106); Magnesium 2.1 mg/dL (1.6-2.6); Potassium 3.7 mmol/L (3.5-5.1); Protein, Total 6.2 g/dL (6.4-8.2); Sodium Level 135 mmol/L (136-145)
--- NOTE | 2024-01-16 07:50 | PCM.RX.CS ---
Consult Type of Intervention Type of Consult: Follow-up Suspected Infection Suspected Infection: Skin/Soft tissue Labs Labs: Sodium 135 mmol/L (136-145) L 01/16/24 05:16 Potassium 3.7 mmol/L (3.5-5.1) 01/16/24 05:16 Chloride 102 mmol/L (98-107) 01/16/24 05:16 Carbon Dioxide 26.0 mmol/L (21.0-32.0) 01/16/24 05:16 Anion Gap 6 (5-15) 01/16/24 05:16 BUN 30 mg/dL (7-18) H 01/16/24 05:16 Creatinine 0.80 mg/dL (0.55-1.02) 01/16/24 05:16 Est GFR (MDRD) Af Amer 96 mL/min (>60) 01/16/24 05:16 Est GFR (MDRD) Non-Af 79 mL/min (>60) 01/16/24 05:16 BUN/Creatinine Ratio 37.3 RATIO (10-20) H 01/16/24 05:16 Glucose 298 mg/dL (74-106) H 01/16/24 05:16 Pharmacy Plan for Drug Dosing Pharmacy Plan for Drug Dosing: DAILY ASSESSMENT Current Vancomycin Dose: 750MG Q12 Number of Doses Received: 2 Current Renal Function: SCR 0.8, CRCL 86 ML/MIN Renal Function Trend: IMPROVED Lab/Micro: wound and blood cx pending Any Change in Vanc Plan: Yes, CrCl improved from 51 ml/min to 86 ml/min, increase dose to 1500mg Q12. Will push the trough out 1 dose to ensure steady state with dose change. Pending Level: 01/17/24 @ 6431 Pharmacy Service will continue to monitor and adjust dosing as required.
[2024-01-16 08:54] VITALS: BP 126/54; PULSE 82; RESP 12; TEMP 36.6; O2SAT 99
[2024-01-16] MEDS: Aspirin 81 MG TAB.CHEW PO (09:10)
[2024-01-16] MEDS: DULoxetine Hcl 60 MG Capsule PO (09:10)
[2024-01-16] MEDS: Insulin Glargine-YFGN 100 UNIT/ML Pen 40 UNIT SC (09:10)
[2024-01-16] MEDS: Fenofibrate 48 MG Tablet PO (09:12)
[2024-01-16] MEDS: Enoxaparin 40 MG/0.4 ML Syringe SC (09:12)
[2024-01-16] MEDS: Pantoprazole Sodium 20 MG Tablet PO (09:12)
--- NOTE | 2024-01-16 09:48 | DCINST_ITS ---
Discharge Instructions Diet Discharge Diet: Carb Control Diet Activity Discharge Activity: Return to Normal Activity Dressing / Incision Call your doctor if you observe: Fever of 101 or Higher, Shortness of breath, Dizziness, Fainting spells, Swelling in the ankles, Chest pain and Increased palpitations (irregular heartbeat) Follow Up Care Test Results: Test results from this visit will be discussed in further detail at your follow- up appointment, if applicable. Discharge Plan Admission Admit Date/Time: 01/15/24 15:58 Attending Provider: J Luis Diaz Primary Care Provider: Sapna Ray Consulting Providers: Cari Reeves Discharge Orders/Prescriptions Prescriptions: Continued ondansetron HCl 8 mg tablet 8 mg PO Q8H PRN (Reason: Nausea) cholecalciferol (vitamin D3) 1,250 mcg (50,000 unit) capsule 1,250 mcg PO QWEEK diphenhydramine HCl [Benadryl] 25 mg capsule 50 mg PO BID PRN (Reason: Itching) omeprazole 20 mg Capsule,Delayed Release(Dr/Ec) 20 mg PO DAILY fenofibrate micronized 67 mg capsule 67 mg PO BID duloxetine 60 mg capsule,delayed release(DR/EC) 60 mg PO BID aspirin 81 mg Tablet 81 mg PO DAILY insulin lispro [Humalog KwikPen Insulin] 100 unit/mL Insulin Pen 20 unit subcut TIDAC 30 Days Qty: 18 0RF insulin glargine [Lantus Solostar U-100 Insulin] 100 unit/mL (3 mL) insulin pe n 50 - 75 units subcut BID metformin 500 mg tablet extended release 24 hr 1,000 mg PO BID Referrals / Follow Up: Sapna Ray DO [Primary Care Provider] - Within 1 Week Disposition Disposition (needs filled in before D/C Order can be placed): Home, Self Care
--- NOTE | 2024-01-16 10:00 | CASEMGMT ---
RN CM Face to Face with patient for initial transition planning/care coordination assessment. RN CM introduced self and role at [facility]. Patient lying in bed, alert and oriented. Patient willing to participate in assessment and is able to answer all questions appropriately. Care providers, pharmacy, and demographics verified. Strata: 2 PCP: Cory Specialists: none Preferred Pharmacy: [facility] Insurance: [employer] Prescription Benefit: yes Living Will/HPOA: none LNOK: mother, children Living Arrangements: Patient lives with adult children in a single story home with no steps to enter. Patient is independent at home. Transportation: self, children DME/HHC: Patient has shower chair, rollator, cane, wheelchair, and glucometer with supplies at home. No previous HHC or SNF Patient wishes to discharge home, denies need for home health at this time. Patient states he has no further needs or concerns at this time. CM to follow for discharge planning needs that may arise. Disposition Plan: Patient to discharge home with family support and follow-up plans in place. Fabiana GUERRERO, RN, CM
[2024-01-16 10:52] VITALS: BP 125/71; PULSE 95; RESP 16; TEMP 36.4; O2SAT 95
--- NOTE | 2024-01-16 14:10 | PCM.DC.SUM ---
Providers Date of Admission: 01/15/24 Primary Care Physician: Dr. Sapna Ray DO Reason For Visit: HYPERGLYCEMIA Diagnosis Discharge Diagnosis (1) Hyperglycemia: Status: Acute Code(s): R73.9 - Hyperglycemia, unspecified Medications at Discharge Home Medications omeprazole 20 mg capsule,delayed release 20 mg PO DAILY gerd 03/23/21 duloxetine 60 mg capsule,delayed release 60 mg PO BID depression 04/07/21 fenofibrate micronized 67 mg capsule 67 mg PO BID HLD 04/07/21 aspirin 81 mg tablet 81 mg PO DAILY heart health 04/19/21 insulin lispro 100 unit/mL subcutaneous pen (Humalog KwikPen (U-100) Insulin) 20 unit (0.2 mL) subcut TIDAC blood suagr 30 days #18 mL 04/23/21 cholecalciferol (vitamin D3) 1,250 mcg (50,000 unit) capsule 1,250 mcg PO QWEEK vitamin 05/22/21 diphenhydramine HCl 25 mg capsule (Benadryl) 50 mg PO BID PRN Itching 05/22/21 ondansetron HCl 8 mg tablet 8 mg PO Q8H PRN Nausea 05/22/21 insulin glargine 100 unit/mL (3 mL) subcutaneous pen (Lantus Solostar U-100 Insulin) 50 - 75 units subcut BID blood sugar 10/30/21 metformin 500 mg tablet,extended release 24 hr 1,000 mg PO BID diabetes 12/07/23 Hospital Course Operations None Procedures - (I&D) Summary of Care Provided Minutes Spent on Discharge: 34 Hospital Course: Per HPI: EMILY CAGE, is a 53 F with history of diabetes, GERD, fibromyalgia who presented to [facility] ED 01/15/2024 feeling unwell since this morning. Reports that she has been sick off and on and will have 3 days where she just does not want to get out of bed and has fibro flares because she has been feeling generally unwell she has not been taking her insulin. Today she was at her mom's and suddenly became lightheaded and felt like she Stumbling and mumbling prompting her to come to the ED. She endorses she has had a boil in her left groin for 2 weeks that is progressively gotten bigger more so over the past few days. Saw her PCP on Wednesday and was started on Doxy but due to feeling unwell today being concerned that her glucose was elevated she presented to the ED. In the ED glucose was indeed 42 however patient not in DKA. In the ED left groin was I&D and pus was expressed and sent for culture, patient placed on Unasyn and hospitalist contacted for admission. Patient reports history as above, reports she is feeling much better now. Does not think she has had any fevers, does at times get a dry cough but thinks that is from having dry mouth. Had been feeling unwell and tired and nauseous but not feeling that way at this time. Reports she had been taking her insulin she was not feeling like taking her insulin but she did take it this morning because of how she was feeling. Hospital Course: 1. Left pubic abscess status post I&D?53-year-old female presented to the hospital with a left pubic abscess. She had seen her PCP who did not want to nehemias it in the office thinking that it would rupture on its own. She presented to the hospital couple days later with had not ruptured. She was on doxycycline at home and it only taken about a day and a half of the prescription prior to coming into the hospital. The abscess was lanced and she immediately felt better, today she felt back to baseline, there is just a little bit of redness and edema. I discussed with her the possibility for discharge despite not having any cultures back and she expressed understanding of the risk benefits going home and would like to go home today. She has most of her doxycycline prescription left at home to complete as well as a prescription for Diflucan for post antibiotic yeast infection. I discussed with her the need to follow-up with her PCP in 3 to 5 days and to let her PCP know to reach out to the hospital in 48 to 72 hours to obtain culture data if necessary. She is feeling so well today that she did not feel like she needed narcotics for the wound on discharge. 2. Type 2 diabetes, fibromyalgia, GERD, chronic fatigue syndrome are chronic medical conditions which complicate her care. Her home medications were continued where appropriate Physical Exam Narrative General: Alert, Oriented x3, Cooperative, No apparent distress HEENT: Atraumatic, PERRLA, EOMI, Normocephalic Oral: Moist Mucosa Neck: Supple, No JVD Lungs: Clear to auscultation, Normal air movement, No rhonchi, No wheeze, No rales Cardiovascular: Regular rate, Regular Rhythm, Normal S1, Normal S2, No murmurs Abdomen: Soft, Non Tender, Non-Distended, No Hepato-splenomegaly Extremities: No edema, Capillary Refill Less than 3 Seconds Skin: Left pubic wound with some serous drainage with edema and erythema, improved Musculoskeletal: No Tenderness to Palpation of Joints or Extremities Neurological: No focal neurological deficits, Motor Exam 5/5 strength throughout, Sensory exam intact to light touch and pain Psych/Mental Status: Normal Affect, Appropriate Weight / BMI Weight Weight: 180 lb Body Mass Index (BMI) 29.9 ABG / Lab / Microbiology Data 01/16/24 05:16 01/16/24 05:16 Laboratory: Laboratory Results - last 24 hr 01/15/24 13:36: Lactic Acid 1.3 01/15/24 15:04: POC Glucose 425 H 01/15/24 18:19: POC Glucose 357 H 01/15/24 21:56: POC Glucose 420 H 01/16/24 05:16: WBC 4.7, RBC 3.79 L, Hgb 10.6 L, Hct 32.2 L, MCV 85.0, MCH 28.0, MCHC 32.9, RDW Std Deviation 38.5, RDW Coeff of Elio 12.5, Plt Count 154, MPV 9.8, Immature Gran % (Auto) 4.900 H, Neut % (Auto) 55.5, Lymph % (Auto) 25.5, [place] % (Auto) 11.0 H, Eos % (Auto) 2.3, Baso % (Auto) 0.8, Absolute Neuts (auto) 2.6, Absolute Lymphs (auto) 1.20, Nucleated RBC % 0, Sodium 135 L, Potassium 3.7, Chloride 102, Carbon Dioxide 26.0, Anion Gap 6, BUN 30 H, Creatinine 0.80, Estim Creat Clear Calc 86.82, Est GFR (MDRD) Af Amer 96, Est GFR (MDRD) Non-Af 79, BUN/Creatinine Ratio 37.3 H, Glucose 298 H, Calcium 8.6, Magnesium 2.1, Total Bilirubin 0.20, AST 21, ALT 21, Alkaline Phosphatase 86, Total Protein 6.2 L, Albumin 2.3 L, Globulin 3.9, Albumin/Globulin Ratio 0.6 L 01/16/24 05:33: POC Glucose 262 H Microbiology: Microbiology 01/15/24 16:09 Boil - Groin Wound Culture - Preliminary Staphylococcus aureus Radiography Diagnostic Testing: Radiology Impression Chest X-Ray 01/15/24 13:35 IMPRESSION: Normal x-ray examination of the chest. Electronically Signed: Carlos Pimentel MD at 14:54 EDT , D/C Instructions Discharge Diet: Carb Control Diet Call your doctor if you observe: Fever of 101 or Higher, Shortness of breath, Dizziness, Fainting spells, Swelling in the ankles, Chest pain and Increased palpitations (irregular heartbeat) Meaningful Use Info Meaningful Use Meaningful Use Diagnoses (Choose all that apply): None applicable Ischemic Stroke Statin Dosing Therapy Reference: STATIN DOSE THERAPY REFERENCE: * Patients > 75 years receive moderate or high dose statin therapy. * Patients 75 years or YOUNGER should receive HIGH intensity statin dose unless contraindicated. You will be required to document reason for non-treatment if statin daily dose does not meet guidelines. HIGH DOSE STATIN THERAPY DAILY Atorvastatin > than or = to 40 mg Rosuvastatin > than or = to 20 mg Amlodipine + Atorvastatin > than or = to 2.5/40 mg Ezetimibe + Simvastatin 10/80 mg Simvastatin 80mg Discharge Plan Admission Admit Date/Time: 01/15/24 15:58 Attending Provider: J Luis Diaz Primary Care Provider: Sapna Ray Consulting Providers: Cari Reeves Discharge Orders/Prescriptions Prescriptions: Continued ondansetron HCl 8 mg tablet 8 mg PO Q8H PRN (Reason: Nausea) cholecalciferol (vitamin D3) 1,250 mcg (50,000 unit) capsule 1,250 mcg PO QWEEK diphenhydramine HCl [Benadryl] 25 mg capsule 50 mg PO BID PRN (Reason: Itching) omeprazole 20 mg Capsule,Delayed Release(Dr/Ec) 20 mg PO DAILY fenofibrate micronized 67 mg capsule 67 mg PO BID duloxetine 60 mg capsule,delayed release(DR/EC) 60 mg PO BID aspirin 81 mg Tablet 81 mg PO DAILY insulin lispro [Humalog KwikPen Insulin] 100 unit/mL Insulin Pen 20 unit subcut TIDAC 30 Days Qty: 18 0RF insulin glargine [Lantus Solostar U-100 Insulin] 100 unit/mL (3 mL) insulin pen 50 - 75 units subcut BID metformin 500 mg tablet extended release 24 hr 1,000 mg PO BID Referrals / Follow Up: Sapna Ray, [Primary Care Provider] - Within 1 Week Disposition Disposition (needs filled in before D/C Order can be placed): Home, Self Care Charges/Coding Visit Charges Inpatient E&M: 42536 Disch Hosp >30min
--- OUTSIDE RECORDS SUMMARY | 2024-01-16 14:38 | XMS RPT_ITS | CCD ---
Author Organization [facility] Care Team Providers Care Plug Making Operator Name Role Phone Sapna Murray DO Primary Care Provider GARCIA CORONADO, DR LÓPEZ Primary Care Physician UnaSapna Romeo DO Primary Care Provider SAPNA MURRAY Primary Care Unavailable JÚNIOR ALVARADO Referring Unavailable SAPNA MURRAY Primary Care Unavailable WARREN BLANCO Attending Unavailable SAPNA MURRAY Primary Care Unavailable Sapna Murray DO Primary Care Provider Allergies Allergy Classification Reported Allergen(s) Allergy Type Date of Onset Reaction(s) Facility (4 sources) [place]; Translations: [ETODOLAC] Drug Allergy 01-16-2015 Swelling [facility] (4 sources) Seasonal allergy; Translations: [SEASONAL ALLERGIES] Allergy to substance 01-16-2015 Itching [facility] Medications Current Medications Medication Drug Class(es) [...] Office Visit (UCWSTR ) MARIA ISABEL VANN ([id number]) 1970 F Date Time Provider Department 08/29/21 11:30 AM JÚNIOR ALVARADO [facility] During your visit today, we recorded the [...] with radic (more content not included)... Normal [facility] No Panel Informationon 08-29 Radiology Study observation (narrative) [facility] XR KNEE 4V AP/PA BOTH+LAT/ME R RTon [...] rib fractures. Osteoarthrosis of the right knee. [employer]: MALINDA Transcribe Date/Time: Aug 29 2021 12:33P Dictated by : CLARISSA CASTREJON MD This examination was interpreted and the report reviewed and electronically signed by: CLARISSA CASTREJON MD on Aug 29 2021 12:35PM EST [id number] N Normal [facility] XR Knee - right 4 Viewson IMPRESSION: No acute cardiopulmonary disease identified. No left-sided rib fractures. Osteoarthrosis of the right knee. [employer]: [facility] Transcribe Date/Time: Aug 29 2021 12:33P Dictated by : CLARISAS CASTREJON MD This examination was interpreted and [...] joint space. ZZZ_DO_NOT_USE_ DIVISION OF RADIOLOGY Provider, [facility] - 08/29/2021 * * *Final Report* * [...] rib fractures. Osteoarthrosis of the right knee. [employer]: MALINDA Transcribe Date/Time: Aug 29 2021 12:33P Dictated by : CLARISSA CASTREOJN MD This examination was interpreted and the report reviewed and electronically signed by: CLARISSA CASTREJON MD on Aug 29 2021 12:35PM EST [facility] XR RIB/CHST 3V AP RIB/OBL/CH ST Ray [...] rib fractures. Osteoarthrosis of the right knee. [employer]: MALINDA Transcribe Date/Time: Aug 29 2021 12:33P Dictated by : CLARISSA CASTREJON MD This examination was interpreted and the report reviewed and electronically signed by: CLARISSA CASTREJON MD on Aug 29 2021 12:35PM EST [id number] N Normal [facility] XR Ribs - left Views and Kate st PAon 08-29-2021 IMPRESSION: No acute cardiopulmonary disease identified. No left-sided rib fractures. Osteoarthrosis of the right knee. [employer]: MALINDA Transcribe Date/Time: Aug 29 2021 12:33P [...] joint space. ZZZ_DO_NOT_USE_ DIVISION OF RADIOLOGY [facility] * * *Final [...] rib fractures. Osteoarthrosis of the right knee. [employer]: [facility] Transcribe Date/Time: Aug 29 2021 12:33P Dictated by : CLARISSA CASTREJON MD This examination was interpreted and the report reviewed and electronically signed by: CLARISSA CASTREJON MD on Aug 29 2021 12:35PM EST [facility] XR Ribs - left Views and Kate st PAOrdered By: Ccf Provider on 08-29-2021 [facility] No Panel Information [facility] Vital Signs Date Time Vital Sign Value Performing Clinician Faci lity 08-29-2021 11:30-0400 Body temperature 97.59 [degF] Júnior Alvarado MD Work Phone: [facility] 08-29-2021 11:30-0400 Diastolic blood pressure 70 mm[Hg] Júnior Alvarado MD Work Phone: [facility] 08-29-2021 11:30-0400 Heart rate 145 /min Júnior Alvarado MD Work Phone: [facility] 08-29-2021 11:30-0400 Respiratory rate 16 /min Júnior Alvarado MD Work Phone: [facility] 08-29-2021 11:30-0400 SaO2% (BldA) [Mass fraction] 97 % Júnior Alvarado MD Work Phone: [facility] 08-29-2021 11:30-0400 Systolic blood pressure 124 mm[Hg] Júnior Alvarado MD Work Phone: [facility] Encounters Encounter Date Encounter Type Care Provider Facility Start: 02-04-2022 End: 02-04-2022 ambulatory WARREN BLANCO Facility:[facility] Start: 02-04-2022 End: 02-04-2022 Patient encounter procedure Warern Blanco MD Work Phone: Ophthalmology Comment on [...] 12-11-[address] SAPNA MURRAY DO [facility] Start: 08-29-2021 End: 08-29-2021 ambulatory SAPNA MURRAY Facility:[facility] Start: 08-29-2021 End: 08-29-2021 Subsequent hospital visit by physician [facility] Work Phone: Radiology Comment on above: Rib pain on left twila e [R07.81] Start: 08-29-2021 End: 08-29-2021 Patient encounter procedure Júnior Alvarado MD Work Phone: [facility] Comment on above: Rib pain [...] Vaccine ( season) Covid-19 Vaccine ( season) [facility] Start: 12-06-2023 Influenza vaccination Influenza Vacc ine (#1) [facility] Start: 02-04-2023 Glaucoma screening Dilated Retinal E xam [facility] Start: 02-04-2023 Hepatitis C antibody , confirmatory test DILATED RETINAL EXAM [facility] Start: 08-29-2022 BP CONTROLLED (<130/80) BP CONTROLLE D (<130/80) [facility] Start: 12-05-2021 Influenza vaccination C [facility] Start: 08-29-2021 Shingrix Vaccine (2 of 2) Shingrix V accine (2 of 2) [facility] Start: 06-20-2021 SHINGRIX VACCINE (1 of 2) SHINGRIX V ACCINE (1 of 2) [facility] Start: 06-20-2016 COLOGUARD (FIT-DNA) COLOGUARD (FIT-D NA) [facility] Start: 06-20-2016 Colonoscopy COLONOSCOPY [facility] Start: 06-20-2016 COLORECTAL CANCER SCREENING COLORECTAL CANCER SCREENING [facility] Start: 06-20-[address] COLONOGRAPHY [facility] Start: 06-20-2016 FECAL OCCULT BLOOD FECAL OCCULT BLOO D [facility] Start: 06-20-2016 Screening for malign ant neoplasm of colon [facility] Start: 06-20-2016 SIGMOIDOSCOPY SIGMOIDOSCOPY [facility] Start: 2011 Mammography MAMMOGRAM [facility] Start: 2011 Screening for malign ant neoplasm of breast Mammogram Screening [facility] Start: 06-20-2001 HPV TESTING HPV TESTING [facility] Start: 06-20-1992 PAP TESTING PAP TESTING [facility] Start: 06-20-1992 Screening for malign ant neoplasm of cervix Cervical Cancer Screening [facility] Start: 06-20-1990 HEPATITIS B (1 of 3 - Risk 3-dose series) HEPATITIS B (1 of 3 - Risk 3-dose series) [facility] Start: 06-20-1990 Hepatitis B Vaccine (1 of 3 - 19+ 3-dose series) Hepatitis B Vaccine (1 of 3 - 19+ 3-dose series) [facility] Start: 06-20-1990 Urine microalbumin profile [facility] Start: 06-20-1989 ANNUAL PCP TEAM WEIGHER BULKER PREM DISEASE VISIT ANNUAL PCP TEAM CHRONIC DISEASE VISIT [facility] Start: 06-20-1989 Anxiety Screening Anxiety Screening [facility] Start: 06-20-1989 BP Controlled (<130/80) BP Controlle d (<130/80) [facility] Start: 06-20-1989 Hepatitis B surface antibody level LDL CHOLESTEROL [facility] Start: 06-20-1989 HEPATITIS C SCREENING HEPATITIS C [facility] Start: 06-20-1989 Hepatitis C screening Hepatitis C Sc [facility] Start: 06-20-1989 HIV SCREENING HIV SCREENING [facility] Start: 06-20-1989 HIV screening HIV Screening [facility] Start: 06-20-1989 SPIROMETRY SPIROMETRY [facility] Start: 06-20-1981 3 comp foot exam completed DIABETIC FOOT EXAM [facility] Start: 06-20-1981 Diabetic foot examination Diabetic F oot Exam [facility] Start: 06-20-1981 Hepatitis B screening URINE AL BUMIN:CREATININE RATIO [facility] Start: 06-20-1981 Hepatitis C antibody , confirmatory test DILATED RETINAL EXAM [facility] Start: 06-20-1977 PNEUMOCOCCAL (1 - PCV) PNEUMOCOCCAL (1 - PCV) [facility] Start: 06-20-1977 Pneumococcal vaccination Pneum ococcal Vaccine (1 of 2 - PCV) [facility] Start: 06-20-1976 COVID-19 VACCINE (#1) COVID-19 VACCI NE (#1) [facility] Start: 06-20-1976 Hemoglobin A1c measurement HbA1C [facility] Start: 06-20-1976 Hemoglobin A1c/Hemoglobin.total in Blood HBA1C [facility] Start: 1970 COVID-19 VACCINE (#1) COVID-19 VACCI NE (#1) [facility] Start: 1970 HEPATITIS B (1 of 3 - 3-dose series) HEPATITIS B (1 of 3 - 3-dose series) [facility] Immunizations Immunization Date Immunization Notes Care Provider Jaren campos 03-08-2020 influenza virus vacc ine, unspecified formulation Xr Moshe Work Phone: [facility] Payers Date Payer Category Payer Medicaid [employer] [id number] 2011-Present [phone] [address] [place] [address] Medicaid [id number] 2011 Medicaid [id number] 2011 Medicaid [id number] Social History Date Type Detail Facility Start: 01-22-2015 Tobacco smoking stat [facility] Ex-smoker [facility] End: 01-16-1989 History of tobacco use Current smoker [facility] Start: 08-29-2021 End: 11-21-2021 Alcohol intake Current drinker of alcohol (finding) [facility] Start: 1970 Sex Assigned At Not on file C [facility] Start: 08-19-2021 End: 02-04-2022 Exposure to SARS-CoV-2 (event) Not sure [facility] Work Phone: End: 01-16-1989 History of tobacco use Cigarette Smoker [facility] Start: 01-22-2015 Tobacco use and exposure Smokeless tobacco non-user [facility] Start: 08-29-2021 History of Social function [facility] Start: 08-29-2021 Tobacco use panel [facility] Medical Equipment Procedure Code Equipment Code Equipment Origin al Text Equipment Identifier Dates four times daily . Use as instructed Comment on above: four times daily. Us e as instructed Clinical Notes 05-23-2015 to 02-04-2022 Warren Blanco MD - 02/04/2022 11:30 AM EDTPatient Chato Alvarado MD - 08/29/2021 11:33 AM EDT Note Date & Type Note Facility 02-04-2022 Note HNO ID: [id number] Author: Warren Blanco MD Service: ? Author [...] about the findings, diagnosis, and treatment options. [facility] 02-04-2022 History of Present illness Narrative ASSESSMENT/PLAN: [...] and treatment options. documented in this encounter [facility] 02-04-2022 Instructions Warren Blanco MD - [...] any questions please contact our office at [phone]. After office hours or on the weekend, please call Dr. Blanco on his cell phone at [phone]. documented in this encounter [facility] 08-29-2021 Note HNO ID: [id number] Author: RT Yoandy(R) Service: ? Author Type: Wrist Liner Type: Progress Notes Filed: 08/29/2021 12:28 PM [...] RT Yoandy(R) August 29, 2021 11:56 AM [facility] 08-29-2021 Note HNO ID: [id number] Author: Júnior Alvarado MD Service: ? Author [...] 2 days ago. She presents to the [facility] today because she cannot take the [...] impingement with radicular symptoms, peripheral neuropathy, Gillain Bayard. Continue management with primary care. Hospital and ER records are not readily available for review and chronic pain management is beyond the scope of care available in [facility]. Júnior Alvarado MD [facility] 08-29-2021 History of Present illness Narrative Patient [...] 2 days ago. She presents to the [facility] Care today because she cannot take the [...] impingement with radicular symptoms, peripheral neuropathy, Gillain Bayard. Continue management with primary care. Hospital and ER records are not readily available for review and chronic pain management is beyond the scope of care available in [facility]. Júnior Alvarado MD documented in this encounter [facility] 05-23-2015 History of Past i llness Narrative Problem Noted Date Resolved Date Second degree uterine prolaps 05/23/2015 Cystocele, midline 05/23/2015 07/06/2015 ASCUS with positive high risk HPV 01/22/2015 07/06/2015 Menorrhagia with irregular cycle 01/22/2015 07/06/2015 Irregular menstrual cycle 01/22/20152015 documented as of this encounter (statuses as of 08/29/2021) [facility] History of Past illness Narrative* Problem Noted Date Resolved Date Second degree uterine prolaps 05/23/2015 Cystocele, midline 05/23/2015 07/06/2015 ASCUS with positive high risk HPV 01/22/2015 07/06/2015 Menorrhagia with irregular cycle 01/22/2015 07/06/2015 Irregular menstrual cycle 01/22/20152015 documented as of this encounter (statuses as of 02/04/2022) [facility] No data available for this section [facility] Evaluation note* Diagnosis Rib pain on left side- Primary Chest pain, unspecified Acute pain of right knee Leg weakness, bilateral Other musculoskeletal symptoms referable to limbs Chronic bilateral low back pain with bilateral sciatica documented in this encounter [facility] note* Diagnosis Type 2 diabetes mellitus with [...] unspecified depression type documented in this encounter [facility] note* Diagnosis Rib pain on left side Chest pain, unspecified Acute pain of right knee documented in this encounter [facility] Discharge instructions No data available for this section [facility] progress note No data available for this section [facility] reason for referral (narrative)* Diagnostic Procedure Only (Urgent) - Closed Specialty Diagnoses / Procedures Referred By Contac t Referred To Contact XR IMAGING Diagnoses Acute pain of right knee Procedures XR KNEE GENERAL 4V AP BOTH/PA BOTH/LAT/MERC RIGHT RADIOLOGIC EXAM KNEE COMPLETE 4/MORE VIEWS Júnior Alvarado MD [facility] [place] [address] Xr Imaging Referral ID Status Reason Start Date Expiration Date V isits Requested Visits Authorized [id number] Closed Auto-Generate d Referral 08/29/2021 09/28/2022 1 1 * Diagnostic Procedure Only (Urgent) - Closed Specialty Diagnoses / Procedures Referred By Contac t Referred To Contact XR IMAGING Diagnoses Rib pain on left side Procedures XR RIBS/CHEST 3V AP RIB/OBLS/CXR LEFT RADEX RIBS UNI W/POSTEROANT CH MINIMUM 3 VIEWS Júnior Alvarado MD [facility] [place] [address] Xr Imaging Referral ID Status Reason Start Date Expiration Date V isits Requested Visits Authorized [id number] Closed Auto-Generate d Referral 08/29/2021 09/28/2022 1 1 [facility] for referral (narrative)* Diagnostic Procedure Only (Urgent) - Closed Specialty Diagnoses / Procedures Referred By Contac t Referred To Contact XR IMAGING Diagnoses Acute pain of right knee Procedures XR KNEE GENERAL 4V AP BOTH/PA BOTH/LAT/MERC RIGHT RADIOLOGIC EXAM KNEE COMPLETE 4/MORE VIEWS Júnior Alvarado MD [address] [place] [address] [place] [address] Referral ID Status Reason Start Date Expiration Date V isits Requested Visits Authorized [id number] Closed Auto-Generate d Referral 08/29/2021 09/28/2022 1 1 * Diagnostic Procedure Only (Urgent) - Closed Specialty Diagnoses / Procedures Referred By Contac t Referred To Contact XR IMAGING Diagnoses Rib pain on left side Procedures XR RIBS/CHEST 3V AP RIB/OBLS/CXR LEFT RADEX RIBS UNI W/POSTEROANT CH MINIMUM 3 VIEWS Júnior Alvarado MD [address] [place] [address] [place] [address] Referral ID Status Reason Start Date Expiration Date V isits Requested Visits Authorized [id number] Closed Auto-Generate d Referral 08/29/2021 09/28/2022 1 1 [facility] for visit Narrative* Diagnostic Procedure Only (Urgent) - Closed Specialty Diagnoses / Procedures Referred By Contac t Referred To Contact XR IMAGING Diagnoses Acute pain of right knee Procedures XR KNEE GENERAL 4V AP BOTH/PA BOTH/LAT/MERC RIGHT RADIOLOGIC EXAM KNEE COMPLETE 4/MORE VIEWS Júnior Alvarado MD [address] [place] [address] [place] [address] Referral ID Status Reason Start Date Expiration Date V isits Requested Visits Authorized [id number] Closed Auto-Generate d Referral 08/29/2021 09/28/2022 1 1 [facility] Summary Purpose Family History No Family [...] or prosecute any alcohol or drug abuse patient.[facility] the event this information is protected by the Federal Confidentiality of Alcohol and Drug Abuse Patient Records regulations: The Federal rules restrict any use of the information to criminally investigate or prosecute any alcohol or drug abuse patient.[facility] the event this information is protected by the Federal Confidentiality of Alcohol and Drug Abuse Patient Records regulations: The Federal rules restrict any use of the information to criminally investigate or prosecute any alcohol or drug abuse patient.[facility] Reason for Visit (unrecogniz ed section and content) Reason Comments Pain Pt reported fall/lif ting x6 days, (LT) rib pain rated 6, Pain (RT) leg pain rated 8, ongoing BS AM 187 Reason Comments Diabetic Retinopathy Follow Up Blurred Vision Left Eye Getting worse in last few years Care Teams (unrecognized sec tion and content) Plug Making Operator Relationship Specialty Start Date End Date Sapna Murray DO PCP - General 01/24/15 Plug Making Operator Relationship Specialty Start Date End Date Sapna Murray DO PCP - General 01/24/15 Plug Making Operator Relationship Specialty Start Date End Date Sapna Murray DO PCP - General 01/24/15 Care Team (unrecognized sect ion and content) Care Team Personnel Name: RENE ZELAYA MD Member Role: Primary Care Physician Address: Address: [facility] [address] [facility] [address] Care Team Related Persons Name: EFFIE VANN Name: EFFIE VANN INFORMATION SOURCE (unrecogn ized section and content) DATE CREATED AUTHOR 02/05/2022 [facility] FOR RECORDS PERTAINING TO PATIENTS WHO ARE [...] BE BASED ON THE PRIMARY CLINICAL RECORDS. [facility] [employer] provides no warranty or guarantee of the accuracy or completeness of information in this document.
[2024-01-16 15:58] LABS: Hemoglobin A1c > 14.0 % (3.8-5.6)
== END 2024-01-16 11:17 | disposition home or self-care (01) | DRG 951 ==
LOC: ED 15:52 → MS3 01-16 07:05
PROVIDERS: Admitting Provider Internal Medicine; Emergency Provider Emergency Medicine; PCP Family Medicine; Visit Provider Family Medicine
DX: E11.628 Type 2 diabetes mellitus with other skin complications (principal); L02.211 Cutaneous abscess of abdominal wall; E11.65 Type 2 diabetes mellitus with hyperglycemia; M79.7 Fibromyalgia; K21.9 Gastro-esophageal reflux disease without esophagitis; Z79.4 Long term (current) use of insulin; G47.30 Sleep apnea, unspecified; L02.214 Cutaneous abscess of groin; Z79.82 Long term (current) use of aspirin; Z79.899 Other long term (current) drug therapy; Z79.84 Long term (current) use of oral hypoglycemic drugs; Z86.16 Personal history of COVID-19; Z87.891 Personal history of nicotine dependence
CPT/HCPCS: 71045; 80048; 80053; 81001; 82009; 82962; 83036; 83605; 83735; 85025; 87040; 87070; 87077; 87186; 87205; 99284; J7030; J7040; J7050; A4216; J0295

== ENCOUNTER 2024-10-18 09:58 | Inpatient (IN) | payer MEDICAID, SELFPAY ==
[2024-10-18] VITALS (15 sets, daily range): BP systolic 115–159; BP diastolic 65–94; PULSE 106–124; RESP 14–25; TEMP 36.1–36.6; O2SAT 88–98; BMI 32.8
--- NOTE | 2024-10-18 10:16 | EDS_ITS ---
HPI History of Present Illness Chief Complaint: Shortness of Breath Narrative Narrative: Chief complaint and HPI: Shortness of breath. 54-year-old female with past medical history of DM2, fibromyalgia presents for evaluation of shortness of breath. Patient states a week ago she woke up with acid reflux. She thinks that she may have accidentally inhaled some of her acid reflux. She states later that evening she became short of breath. States that she has had a productive cough. Shortness of breath is progressively worsening. She denies any fever, chills, URI symptoms, abdominal pain, nausea, vomiting. States she has chest tightness but not true chest pain. Did recently have a car ride to [place]. Denies any bilateral lower extremity swelling or pain. Review of systems: See HPI Medications: As listed on the chart Allergies: As listed on the chart PFSH: Per chart Vital signs: As listed on the chart. Reviewed. Physical exam: Gen: A&O x3, NAD Head: Normocephalic, atraumatic Eyes: No sclera icterus, conjunctiva clear ENT: Moist mucous membranes Neck: Trachea midline, No JVD CV: Tachycardic, regular rhythm, no murmurs, no peripheral edema Resp: Lungs CTA BL but diminished in the bilateral bases, no w/r/c, tachypneic, dyspneic when speaking GI: Abd soft, non-distended, non-tender, no r/r/g Musc: Full ROM, no deformity Skin: Warm, dry Neuro: Alert, oriented, grossly intact, sensation intact Psych: Cooperative, appropriate mood and affect [facility] Medical History (Updated 10/18/24 @ 13:[address] Darvin Posey, ) Diabetes mellitus HLD (hyperlipidemia) Sleep apnea Anxiety Hypoxia Pneumonia due to COVID-19 virus Diabetes mellitus BERKLEY (acute kidney injury) Multiple falls Fibromyalgia Former smoker Lumbar back pain Intertrigo Excessive body weight loss Panniculitis Abdominal panniculus, symptomatic Bursitis Fibromyalgia Vitamin deficiency Vision problems ULCERS GERD (gastroesophageal reflux disease) Osteoarthritis Headache Depression Diabetes Carpal tunnel syndrome Back problem Arthritis Seasonal allergic conjunctivitis Home Medications ?Medication ?Instructions ?Recorded ?Last Taken ?Type omeprazole 20 mg capsule,delayed 20 mg PO DAILY gerd 1 05/24/20 04/06/21 History release duloxetine 60 mg capsule,delayed 60 mg PO BID depressi on 04/07/21 Unknown History release fenofibrate micronized 67 mg 67 mg PO BID HLD 04/07/21 Unknown History capsule aspirin 81 mg tablet 81 mg PO DAILY heart health 04/19/21 Unknown History insulin lispro 100 unit/mL 20 unit (0.2 mL) subcut TID AC 04/23/21 Unknown Rx subcutaneous pen (Humalog KwikPen blood suagr 30 days #18 mL (U-100) Insulin) cholecalciferol (vitamin D3) 1,250 1,250 mcg PO QWEEK vitamin 05/22/21 10/17/24 History mcg (50,000 unit) capsule diphenhydramine HCl 25 mg capsule 50 mg PO BID PRN Itc carrie 05/22/21 Unknown History (Benadryl) ondansetron HCl 8 mg tablet 8 mg PO Q8H PRN Nausea Unknown History insulin glargine 100 unit/mL (3 50 - 75 units subcut B ID blood 10/30/21 Unknown History mL) subcutaneous pen (Lantus sugar Solostar U-100 Insulin) metformin 500 mg tablet,extended 1,000 mg PO BID diabe monica 12/07/23 Unknown History release 24 hr Lactobacillus acidophilus 0.5 mg 1 mg PO BID 10/18/24 Unknown History (100 million cell) tablet levocetirizine 5 mg tablet 5 mg PO DAILY 10/18/24 Unkn own History lisinopril 2.5 mg tablet 2.5 mg PO DAILY 10/18/24 Unk nown History pregabalin 150 mg capsule 150 mg PO BID 10/18/24 Unkno wn History sodium chloride 0.65 % nasal spray 1 spray intranasal 4X/DAY PRN PRN 10/18/24 Unknown History aerosol (Deep Sea Nasal) allergies Allergy/AdvReac Type Severity Reaction Status Date / Time etodolac (From [facility]) Allergy Rash Verified 01/15/24 12:24 Family History Mother Arthritis Hypertension Melanoma Father Arthritis Bleeding disorder Diabetes Heart disease High cholesterol Son Kidney disease H/O psychiatric care Uncle Alcoholism Liver disease Grandmother Arthritis Cancer Lung cancer Sister Epilepsy Melanoma Skin cancer Aunt CVA (cerebral vascular accident) Surgical History H/O knee surgery History of hysterectomy History of carpal tunnel surgery Social History household members: none housing: house Smoking Status: Former smoker how long ago did patient quit smoking: Quit ~ 30 years prior. alcohol intake: current alcohol intake frequency: holidays/special occasions only substance use type: does not use EXAM Physical Exam Const Vital Signs: 10/18/24 09:59 10/18/24 10:12 10/18/24 10:35 Temperature 97.0 F L Temperature Source Temporal Pulse Rate 117 H 114 H Respiratory Rate 24 H 24 H Respiratory Effort Short of Breath Respiratory Depth Shallow Respiratory Pattern Tachypnea Tachypnea Blood Pressure 152/88 H Blood Pressure Mean 109 Pulse Ox 91 Oxygen Delivery Method Room Air Room Air 10/18/24 11:00 10/18/24 11:15 10/18/24 11:15 Temperature Temperature Source Pulse Rate 106 H 111 H Respiratory Rate 17 16 Respiratory Effort Respiratory Depth Respiratory Pattern Blood Pressure 115/67 129/70 H 129/70 H Blood Pressure Mean 82 87 87 Pulse Ox 90 88 Oxygen Delivery Method 10/18/24 11:30 10/18/24 11:30 10/18/24 11:32 Temperature 97.5 F L Temperature Source Oral Pulse Rate 108 H 116 H Respiratory Rate 25 H 16 Respiratory Effort Respiratory Depth Respiratory Pattern Blood Pressure 132/79 H 132/79 H Blood Pressure Mean 94 96 Pulse Ox 93 91 Oxygen Delivery Method Room Air 10/18/24 12:00 10/18/24 12:00 10/18/24 12:30 Temperature 97.5 F L Temperature Source Temporal Pulse Rate 111 H 118 H 110 H Respiratory Rate 19 H 25 H 20 H Respiratory Effort Respiratory Depth Respiratory Pattern Blood Pressure 127/65 H 127/65 H 138/74 H Blood Pressure Mean 83 85 91 Pulse Ox 96 94 95 Oxygen Delivery Method Room Air 10/18/24 13:00 10/18/24 13:00 10/18/24 13:05 Temperature 97.4 F L 97.4 F L Temperature Source Temporal Pulse Rate 124 H 115 H 124 H Respiratory Rate 25 H 22 H 25 H Respiratory Effort Respiratory Depth Respiratory Pattern Blood Pressure 157/87 H 150/87 H 157/87 H Blood Pressure Mean 110 105 110 Pulse Ox 94 94 94 Oxygen Delivery Method Room Air MDM MDM MDM Narrative Medical decision making narrative: 54-year-old female with past medical history of DM2, fibromyalgia presents for evaluation of shortness of breath. Patient states a week ago she woke up with acid reflux. She thinks that she may have accidentally inhaled some of her acid reflux since then has been endorsing progressive shortness of breath. Triage note states that the patient was 89% on room air. Currently 92% on room air. Patient is tachycardic, tachypneic, dyspneic when speaking. Differential diagnosis includes but is not limited to aspiration pneumonia, community- acquired pneumonia, viral illness, PE, ACS, CHF. DuoNeb and 500 cc NS bolus ordered. Respiratory workup ordered. CBC without leukocytosis. Patient has baseline anemia. D-dimer elevated at 1.6. On chart review, her D-dimer has been elevated in the past however cannot rule out PE. CTA chest ordered. BMP with mild hyperkalemia of 5.3. No BERKLEY. Patient is hyperglycemic at 412. History of diabetes. Troponin 34 and 33. Patient not endorsing chest pain. Her BNP is elevated at 2429. Patient has no history of CHF. She is not overtly fluid overloaded on physical exam. Her chest x-ray was personally reviewed and interpreted by me, ED physician. Concern is for vascular congestion. Radiology in agreement. CTA of the chest negative for PE. Patient has large bilateral pleural effusions with compressive atelectasis, scattered groundglass attenuation could represent pulmonary edema and/or multifocal pneumonia. Given patient has concerns for possible aspiration of acid reflux. Will treat with Unasyn. Patient will warrant admission for further workup and likely thoracentesis. Patient was discussed with the hospitalist who accepted admission. Patient was updated about the results of her nurse to the plan. EKG: Interpreted by me/EM physician: EKG shows sinus tachycardia with a heart rate of 109. Nonspecific ST changes. Impression: 1. CHF exacerbation 2. Possible aspiration pneumonia 3. Large pleural bilateral pleural effusions secondary to #1 4. Hyperglycemia with known diabetes 5. Mild hyperkalemia Lab Data Labs: Laboratory Results - last 24 hr 10/18/24 10/18/24 10:36 12:42 WBC 5.7 RBC 3.49 L Hgb 10.2 L Hct 30.7 L MCV 88.0 MCH 29.2 MCHC 33.2 RDW Std Deviation 44.6 H RDW Coeff of Elio 14.4 Plt Count 178 MPV 10.3 Immature Gran % (Auto) 2.300 H Neut % (Auto) 57.9 Lymph % (Auto) 28.6 [place] % (Auto) 9.1 Eos % (Auto) 1.6 Baso % (Auto) 0.5 Absolute Neuts (auto) 3.3 Absolute Lymphs (auto) 1.63 Nucleated RBC % 0 D-Dimer Quant (PE/DVT) 1.60 H* Sodium 135 Potassium 5.3 H Chloride 102 Carbon Dioxide 21.3 Anion Gap 12 BUN 37 H Creatinine 1.01 Estim Creat Clear Calc 71.13 Est GFR (MDRD) Non-Af 67 BUN/Creatinine Ratio 36.8 H Glucose 412 H Lactic Acid 1.4 Calcium 8.7 Troponin T High Sens 33 H Troponin T Hi Sens 2 Hr 34 H NT pro BNP II 2429 H Radiography Diagnostic Testing: Clinical Impression(s) from Imaging Studies Chest X-Ray 10/18/24 10:22 IMPRESSION: Pulmonary congestion and edema. Pneumonia cannot be excluded. Reading Location: [facility] Chest CTA 10/18/24 11:08 IMPRESSION: 1. No pulmonary embolism is identified. Some of the distal pulmonary arteries cannot be evaluated due to suboptimal opacification. 2. Bilateral pleural effusions with compressive atelectasis and scattered ground-glass attenuation could represent pulmonary edema and/or multifocal pneumonia. Reading Location: [facility] Discharge Plan Disposition Disposition: Acute Care Hospital [facility] Discharge Date/Time: 10/18/24 14:29
--- NOTE | 2024-10-18 10:22 | RAD_ITS ---
EXAM: XR Chest, 2 Views CLINICAL INDICATION: SHORTNESS OF BREATH TECHNIQUE: Frontal and lateral views of the chest. COMPARISON: No relevant prior studies available. FINDINGS: LUNGS AND PLEURAL SPACES: Pulmonary congestion and edema. Pneumonia cannot be excluded. No pneumothorax. HEART: Unremarkable. No cardiomegaly. MEDIASTINUM: Unremarkable. Normal mediastinal contour. BONES/JOINTS: Unremarkable. No acute fracture. RAD/Chest PA and Lateral IMPRESSION: Pulmonary congestion and edema. Pneumonia cannot be excluded. Reading Location: [facility]
--- NOTE | 2024-10-18 10:22 | EKG12_ITS ---
Test Reason : SOB Blood Pressure : */* mmHG Vent. Rate : 109 BPM Atrial Rate : 109 BPM P-R Int : 134 ms QRS Dur : 138 ms QT Int : 390 ms P-R-T Axes : 22 -13 106 degrees QTcB Int : 525 ms Sinus tachycardia Non-specific intra-ventricular conduction block Cannot rule out Septal infarct , age undetermined Abnormal ECG Confirmed by Rahat Franklin ([id number]), digital editor PHOENIX FLORES ([id number]) on 10/19/2024 11:24:53 AM Referred By: Confirmed By: Rahat Franklin
[2024-10-18 10:52] LABS: Hematocrit 30.7 % (37-47); Hemoglobin 10.2 g/dL (12.0-15.0); Immature Granulocytes Count 0.130 X10^3/uL (0.0-0.0); Mean Corp Hgb Conc 33.2 g/dL (32-36); Mean Corpuscular Volume 88.0 fL (81-99); Mean Platelet Vol. 10.3 fl (6.2-12.0); NRBC Flagged by Analyzer 0 % (0-5); Platelet Count 178 K/mm3 (150-450); RBC Distribution Width CV 14.4 % (11.6-14.6); RBC Distribution Width SD 44.6 fl (35.1-43.9); Red Blood Count 3.49 M/mm3 (4.2-5.4); White Blood Count 5.7 K/mm3 (4.4-11.0)
[2024-10-18] MEDS: 0.9% Normal Saline (500mL Bag) 500 ML 999 ML IV (10:57)
[2024-10-18 11:02] LABS: D-Dimer Quantitative (DVT/PE) 1.60 FEU/ug/m (0.27-0.49)
--- NOTE | 2024-10-18 11:08 | CT_ITS ---
EXAM: CT Angiography Chest Without and With Intravenous Contrast CLINICAL INDICATION: PE TECHNIQUE: Axial computed tomographic angiography images of the chest without and with intravenous contrast. This CT exam was performed using one or more of the following dose reduction techniques: automated exposure control, adjustment of the mA and/or kV according to patient size, and/or use of iterative reconstruction technique. MIP reconstructed images were created and reviewed. COMPARISON: No relevant prior studies available. FINDINGS: LIMITATIONS: Suboptimal opacification of the pulmonary arteries. PULMONARY ARTERIES: No pulmonary embolism is identified. Some of the distal pulmonary arteries cannot be evaluated due to suboptimal opacification. AORTA: No acute findings. No thoracic aortic aneurysm. LUNGS AND PLEURAL SPACES: Bilateral pleural effusions with compressive atelectasis and scattered ground-glass attenuation could represent pulmonary edema and/or multifocal pneumonia. No mass. HEART: Unremarkable. No cardiomegaly. No significant pericardial effusion. No evidence of RV dysfunction. BONES/JOINTS: No acute fracture. No dislocation. SOFT TISSUES: Unremarkable. LYMPH NODES: Unremarkable. No enlarged lymph nodes. CT/CTA Chest W/WO Contrast IMPRESSION: 1. No pulmonary embolism is identified. Some of the distal pulmonary arteries cannot be evaluated due to suboptimal opacification. 2. Bilateral pleural effusions with compressive atelectasis and scattered grou nd-glass attenuation could represent pulmonary edema and/or multifocal pneumonia. Reading Location: [facility]
[2024-10-18 11:10] LABS: Pro- Brain NATRIURETIC PEPTIDE 2429 pg/mL (<=900); Troponin T High Sensitivity 33 ng/L (<=14)
[2024-10-18 11:14] LABS: Anion Gap 12 (5-15); BUN 37 mg/dL (4-19); BUN/Creat Ratio 36.8 RATIO (10-20); Calcium,Total 8.7 mg/dL (7.6-11.0); Carbon Dioxide 21.3 mmol/L (21.0-32.0); Chloride 102 mmol/L (98-108); Estimated Creatinine Clearance 71.13 ml/min (50-250); Glucose 412 mg/dL (70-99); Potassium 5.3 mmol/L (3.3-5.1)
[2024-10-18 13:10] LABS: Troponin T High Sens 2 HR 34 ng/L (<=14)
[2024-10-18] MEDS: Ampicillin/Sulbactam 3 GM in 0.9% Normal Saline (100mL MB+) 100 ML IV (13:22)
--- NOTE | 2024-10-18 13:54 | PCM.HP.STD ---
[facility] - General General Date of Service: 10/18/24 Chief Complaint: Shortness of breath HPI Narrative EMILY CAGE, is a 54 F who presents presents with recent onset of shortness of breath. Patient went to sleep last night and woke up very short of breath having to lean forward gasping for breath. States that she has been more short of breath over the past week. Patient has neuropathy of her legs so does not exercise nor walk very far but she just been noticeably more short of breath recently. She denies any fever chills nor any lower extremity edema. Denies any recent weight changes well. But because of her shortness of breath she should present to the emergency room. She did have an elevated D-dimer and she underwent a CT angiogram of her chest. There is no pulmonary embolism. Was pulmonary vascular congestion as well as to bilateral large effusions on her chest CT. [facility] Medical History (Updated 10/18/24 @ 13:[address] Darvin Posey, DO) Diabetes mellitus HLD (hyperlipidemia) Sleep apnea Anxiety Hypoxia Pneumonia due to COVID-19 virus Diabetes mellitus BERKLEY (acute kidney injury) Multiple falls Fibromyalgia Former smoker Lumbar back pain Intertrigo Excessive body weight loss Panniculitis Abdominal panniculus, symptomatic Bursitis Fibromyalgia Vitamin deficiency Vision problems ULCERS GERD (gastroesophageal reflux disease) Osteoarthritis Headache Depression Diabetes Carpal tunnel syndrome Back problem Arthritis Seasonal allergic conjunctivitis Home Medications ?Medication ?Instructions ?Recorded ?Last Taken ?Type omeprazole 20 mg capsule,delayed 20 mg PO DAILY gerd 03/23/21 04/06/21 History release duloxetine 60 mg capsule,delayed 60 mg PO BID depression 04/07/21 Unknown History release fenofibrate micronized 67 mg 67 mg PO BID HLD 04/07/21 Unknown History capsule aspirin 81 mg tablet 81 mg PO DAILY heart health 04/19/21 Unknown History insulin lispro 100 unit/mL 20 unit (0.2 mL) subcut TIDAC 04/23/21 Unknown Rx subcutaneous pen (Humalog KwikPen blood suagr 30 days #18 mL (U-100) Insulin) cholecalciferol (vitamin D3) 1,250 1,250 mcg PO QWEEK vitamin 05/22/21 Unknown History mcg (50,000 unit) capsule diphenhydramine HCl 25 mg capsule 50 mg PO BID PRN Itching 05/22/21 Unknown History (Benadryl) ondansetron HCl 8 mg tablet 8 mg PO Q8H PRN Nausea 05/22/21 Unknown History insulin glargine 100 unit/mL (3 50 - 75 units subcut BID blood 10/30/21 Unknown History mL) subcutaneous pen (Lantus sugar Solostar U-100 Insulin) metformin 500 mg tablet,extended 1,000 mg PO BID diabetes 12/07/23 Unknown History release 24 hr Lactobacillus acidophilus 0.5 mg 1 mg PO BID 10/18/24 Unknown History (100 million cell) tablet levocetirizine 5 mg tablet 5 mg PO DAILY 10/18/24 Unknown History lisinopril 2.5 mg tablet 2.5 mg PO DAILY 10/18/24 Unknown History pregabalin 150 mg capsule 150 mg PO BID 10/18/24 Unknown History sodium chloride 0.65 % nasal spray 1 spray intranasal 4X/DAY PRN PRN 10/18/24 Unknown History aerosol (Deep Sea Nasal) allergies Allergy/AdvReac Type Severity Reaction Status Date / Time etodolac (From [facility]) Allergy Rash Verified 01/15/24 12:24 Family History Mother Arthritis Hypertension Melanoma Father Arthritis Bleeding disorder Diabetes Heart disease High cholesterol Son Kidney disease H/O psychiatric care Uncle Alcoholism Liver disease Grandmother Arthritis Cancer Lung cancer Sister Epilepsy Melanoma Skin cancer Aunt CVA (cerebral vascular accident) Surgical History H/O knee surgery History of hysterectomy History of carpal tunnel surgery Social History household members: none housing: house Smoking Status: Former smoker how long ago did patient quit smoking: Quit ~ 30 years prior. alcohol intake: current alcohol intake frequency: holidays/special occasions only substance use type: does not use ROS ROS Narrative Stated that she did have some reflux about a week ago and then had some frothy sputum. Denies any emesis however. All review of systems were negative except as mentioned above in the history of present illness and the other review of systems. Vital Signs Vital Signs Vital Signs: 10/18/24 09:59 10/18/24 10:12 10/18/24 10:35 Temperature 36.1 C L Temperature Source Temporal Pulse Rate 117 H 114 H Respiratory Rate 24 H 24 H Respiratory Effort Short of Breath Respiratory Depth Shallow Respiratory Pattern Tachypnea Tachypnea Blood Pressure 152/88 H Blood Pressure Mean 109 Pulse Ox 91 Oxygen Delivery Method Room Air Room Air 10/18/24 11:00 10/18/24 11:15 10/18/24 11:15 Temperature Temperature Source Pulse Rate 106 H 111 H Respiratory Rate 17 16 Respiratory Effort Respiratory Depth Respiratory Pattern Blood Pressure 115/67 129/70 H 129/70 H Blood Pressure Mean 82 87 87 Pulse Ox 90 88 Oxygen Delivery Method 10/18/24 11:30 10/18/24 11:30 10/18/24 11:32 Temperature 36.4 C L Temperature Source Oral Pulse Rate 108 H 116 H Respiratory Rate 25 H 16 Respiratory Effort Respiratory Depth Respiratory Pattern Blood Pressure 132/79 H 132/79 H Blood Pressure Mean 94 96 Pulse Ox 93 91 Oxygen Delivery Method Room Air 10/18/24 12:00 10/18/24 12:00 10/18/24 12:30 Temperature 36.4 C L Temperature Source Temporal Pulse Rate 111 H 118 H 110 H Respiratory Rate 19 H 25 H 20 H Respiratory Effort Respiratory Depth Respiratory Pattern Blood Pressure 127/65 H 127/65 H 138/74 H Blood Pressure Mean 83 85 91 Pulse Ox 96 94 95 Oxygen Delivery Method Room Air 10/18/24 13:00 10/18/24 13:00 10/18/24 13:05 Temperature 36.3 C L 36.3 C L Temperature Source Temporal Pulse Rate 124 H 115 H 124 H Respiratory Rate 25 H 22 H 25 H Respiratory Effort Respiratory Depth Respiratory Pattern Blood Pressure 157/87 H 150/87 H 157/87 H Blood Pressure Mean 110 105 110 Pulse Ox 94 94 94 Oxygen Delivery Method Room Air Weight Weight: 89.358 kg Body Mass Index (BMI) 32.8 Physical Exam Narrative POCUS: Indication is for pleural effusions. Limited is no phased-array probe was available but the curvilinear with fast protocol patient had enlarged IVC that was not collapsible with inspiration. Noted bilateral pleural effusions. Kidneys grossly appeared normal. Heart was grossly normal with out any obvious pericardial effusions. - Physical Exam General: Alert, Oriented x3, Cooperative HEENT: Atraumatic, PERRLA, EOMI, Normocephalic Oral: Moist Mucosa, No Gingival or Mucosal Lesions/ Ulcerations Neck: Supple, No JVD, Negative Carotid Bruits Lungs: Diminished with dullness percussion in the bases bilaterally. Cardiovascular: Regular rate, Normal S1, Normal S2, No murmurs Abdomen: Bowel Sounds Present, Soft, Non Tender, Non-Distended, No Hepato-splenomegaly Extremities: No clubbing, No cyanosis, No edema, Capillary Refill Less than 3 Seconds Skin: No rashes, No breakdown Musculoskeletal: No Tenderness to Palpation of Joints or Extremities Neurological: Neuro grossly intact Psych/Mental Status: Normal Affect, Appropriate Results Lab / Micro Data Attestation: I reviewed the patient's lab results. 10/18/24 10:36 10/18/24 10:36 Labs: Laboratory Results - last 24 hr 10/18/24 10:36: WBC 5.7, RBC 3.49 L, Hgb 10.2 L, Hct 30.7 L, MCV 88.0, MCH 29.2, MCHC 33.2, RDW Std Deviation 44.6 H, RDW Coeff of Elio 14.4, Plt Count 178, MPV 10.3, Immature Gran % (Auto) 2.300 H, Neut % (Auto) 57.9, Lymph % (Auto) 28.6, [place] % (Auto) 9.1, Eos % (Auto) 1.6, Baso % (Auto) 0.5, Absolute Neuts (auto) 3.3, Absolute Lymphs (auto) 1.63, Nucleated RBC % 0, D-Dimer Quant (PE/DVT) 1.60 H*, Sodium 135, Potassium 5.3 H, Chloride 102, Carbon Dioxide 21.3, Anion Gap 12, BUN 37 H, Creatinine 1.01, Estim Creat Clear Calc 71.13, Est GFR (MDRD) Non-Af 67, BUN/Creatinine Ratio 36.8 H, Glucose 412 H, Lactic Acid 1.4, Calcium 8.7, Troponin T High Sens 33 H, NT pro BNP II 2429 H 10/18/24 12:42: Troponin T Hi Sens 2 Hr 34 H Micro: Microbiology 10/18/24 10:35 Mucosa - Nose SARS-CoV-2, Influenza & RSV (PCR) - Final EKG Initial EKG: Attestation: I personally reviewed and interpreted this EKG as follows: Prior EKG tracings: available for review EKG Rhythm Intrepretation: Sinus Rhythm (Bundle branch block) Imaging Radiology Impression Chest X-Ray 10/18/24 10:22 IMPRESSION: Pulmonary congestion and edema. Pneumonia cannot be excluded. Reading Location: [facility] Chest CTA 10/18/24 11:08 IMPRESSION: 1. No pulmonary embolism is identified. Some of the distal pulmonary arteries cannot be evaluated due to suboptimal opacification. 2. Bilateral pleural effusions with compressive atelectasis and scattered ground-glass attenuation could represent pulmonary edema and/or multifocal pneumonia. Reading Location: [facility] Assessment & Plan Assessment/Plan (1) CHF exacerbation: PLAN: Unclear type at present. Patient appears constipated though she does have a markedly large pleural effusions. I suspect these are more transudative however. Will initiate with IV furosemide 40 mg IV twice daily. Fluid restrict to 1.5 L/day. Daily weights. Check 2D echocardiogram. Based on the results of the echocardiogram if there is marked cardiomyopathy, will consult cardiology. (2) Pleural effusion: PLAN: Suspect transudative given the heart failure. Patient states that her father had a history of a very aggressive lung cancer. Will do a therapeutic thoracentesis but also analyze the fluid. As well as check serum LDH and protein at to determine whether or not this is transient versus exudative. (3) Diabetes mellitus: PLAN: Insulin-dependent. Will hold off on metformin given the CT angiogram that she had received. Continue with her glargine as well as prandial insulin and add sliding scale insulin. Check an A1c. PLAN: Plan ADELINE: Patient had been diagnosed with ADELINE in the past. She has not used CPAP in years. Though she does state that she has lost considerable amount of weight since that time. Vies patient to follow-up with pulmonary to have a repeat polysomnogram as outpatient. Obesity class I: Complicates care and recovery. Hypertension: Continue with lisinopril. Fibromyalgia: Continue with duloxetine VTE prophylaxis with enoxaparin CODE STATUS: Addressed with patient. Patient wished to be full code. Charges/Coding Visit Charges Inpatient E&M: 89238 Init Hosp L3
--- NOTE | 2024-10-18 15:00 | ECHOCS_ITS ---
Reason For Study : CHF Procedure This was a 2D Doppler, Color Flow transthoracic echocardiogram. Contrast injection was performed. Exam performed portable in patient room. Left Ventricle Normal LV size. The left ventricular ejection fraction is 40 %. There is mild global hypokinesis of the left ventricle. Right Ventricle Normal RV size. Normal systolic function. Atria Normal left atrium. Normal right atrium. Mitral Valve Normal mitral valve. Moderately severe (3+) eccentric mitral valve insufficiency. Tricuspid Valve Normal tricuspid valve. Mild (1+) tricuspid valve insufficiency. Pulmonary artery systolic pressure is 30 mmHg. Aortic Valve Trisinus/trileaflet aortic valve. Mild focal aortic valve calcification. Pulmonic Valve Normal pulmonic valve. Great Vessels Normal aortic root. The pulmonary artery is normal size. Inferior vena cava collapse with sniff. Pericardium/Pleural Small (<1.0 cm) pericardial effusion. Moderate size left pleural effusion. Medication Diluted definity 1.5ml given slow IV push to enhance endocardial definition. MMode/2D Measurements & Calculations LVIDd: 4.9 cm IVSd: 1.00 cm Ao root diam: 2.7 cm LVIDs: 4.0 cm LVPWd: 1.1 cm RVDd: 3.5 cm FS: 17.4 % LAV(MOD-bp): 53.8 ml LVAd ap4: 38.6 cm2 LVAd ap2: 40.0 cm2 LAV(MOD-bp) Indexed: 28.1 ml/m2 LVLd ap4: 8.1 cm LVLd ap2: 7.9 cm LAV(MOD-sp2): 51.1 ml EDV(MOD-sp4): 148.0 ml EDV(MOD-sp2): 163.5 ml LAV(MOD-sp4): 55.6 ml EDV(sp4-el): 155.8 ml EDV(sp2-el): 171.1 ml LVAs ap4: 29.0 cm2 LVAs ap2: 31.2 cm2 LVLs ap4: 7.5 cm LVLs ap2: 7.2 cm ESV(MOD-sp4): 91.6 ml ESV(MOD-sp2): 110.1 ml ESV(sp4-el): 95.4 ml ESV(sp2-el): 114.4 ml EF(MOD-sp4): 38.1 % EF(MOD-sp2): 32.6 % EF(sp4-el): 38.8 % SV(MOD-sp4): 56.4 ml SV(MOD-sp2): 53.4 ml SV(sp4-el): 60.5 ml SI(MOD-sp4): 29.5 ml/m2 SI(MOD-sp2): 27.9 ml/m2 LA A4 area: 18.7 cm2 LA dimension(2D): 4.6 cm RA A4 area: 9.7 cm2 TAPSE: 1.6 cm Time Measurements MV dec time: 0.11 sec Doppler Measurements & Calculations MV E max edouard: 149.4 cm/sec Lat Peak E' Edouard: 11.4 cm/sec Med Peak E' Edouard: 8.8 cm/sec MV A max edouard: 134.1 cm/sec E/E' lat: 13.1 E/E' med: 17.0 MV E/A: 1.1 MV dec slope: 1307 cm/sec2 Ao V2 max: 129.0 cm/sec LV V1 max: 98.4 cm/sec Ao max P.7 mmHg LV V1 max P.9 mmHg Ao V2 mean: 108.8 cm/sec Ao mean P.9 mmHg Ao V2 VTI: 23.3 cm PA V2 max: 77.3 cm/sec TR max edouard: 249.8 cm/sec TR max P.0 mmHg ECHO/Echo Complete W/ Contrast Interpretation Summary Normal LV size. The left ventricular ejection fraction is 40 %. There is mild global hypokinesis of the left ventricle. Moderately severe (3+) eccentric mitral valve insufficiency. Contrast injection was performed. Ordering Physician: Darvin Posey Referring Physician: Sapna Ray Performed By: Loida Alvarez, NANCY, RVT
[2024-10-18] MEDS: Insulin Glargine-YFGN 100 UNIT/ML Pen 50 UNIT SC (21:46)
[2024-10-18] MEDS: Lactobacillis Acidophilus 1 CAP PO (21:46)
--- OUTSIDE RECORDS SUMMARY | 2024-10-18 21:52 | XMS RPT_ITS | CCD ---
Author Organization [facility] Care Team Providers Care Professor Of German Name Role Phone Dr. Sapna Ray Primary Care Provider Dr. Kvng Herrera Emergency Provider Dr. Fred Wilkins Admit Provider Dr. Fred Wilkins Attending Provider Dr. Fred Wilkins Other Provider Dr. Katherine Peck Attending Provider Dr. Katherine Peck Other Provider Dr. Tony Hunter Other Provider Dr. David Santillan Other Provider Valerie CHEMICAL RESEARCH ENGINEER, CHEMICAL RESEARCH ENGINEER-C Teresa Other Provider Dr. Darvin Schultz Emergency Provider Dr. Rad Shen Attending Provider Dr. Rodriguez Quinteros Attending Provider Dr. Rad Shen Referring Provider Dr. Rad Shen Admit Provider Dr. Rad Shen Other Provider Dr. Bin Gleason Other Provider Dr. Tez Walker Attending Provider Dr. Saeid Valladares Emergency Provider Dr. Madison López Admit Provider Dr. Madison López Referring Provider Dr. Reinaldo Collins Other Provider Dr. David Santillan Attending Provider Jg, Dr. Khan Other Provider Unavailable Jg, Dr. Khan Attending Provider Unavailable Dr. Reinaldo Collins Attending Provider Qasim, Dr. Smith Other Provider Dr. Tony Hunter Attending Provider Qasim, Dr. Smith Attending Provider [phone] Cory, Dr. Alejo Referring Provider Valerie CHEMICAL RESEARCH ENGINEER, CHEMICAL RESEARCH ENGINEER-C Teresa Attending Provider Sapna Ray DO Primary Care Provider Cory, Dr. Alejo Primary Care Provider Cory, Dr. Alejo Primary Care Provider Cory, Dr. Alejo Referring Provider Dr. Tyson Menchaca Attending Provider DR RENE ZELAYA MD Primary Care Physician Unava ilable Cory RAMOS, Sapna Medina Primary Care Provider Cory, Dr. Alejo Primary Care Provider Dr. Sapna Ray Referring Provider Dr. Tyson Menchaca Attending Provider [phone] Sapna Ray DO A Primary Care Provider Reeves, Cari Consulting Unavailable Reeves, Cari Admitting Unavailable Malys, Sapna Primary Care Unavailable Reeves, Cari Attending Unavailable Sav Kenyon Attending Unavailable Malys, Sapna Primary Care Unavailable Reeves, Cari Consulting Unavailable Leandro, Cari Admitting Unavailable J Luis Diaz Attending Unavailable Malys, Sapna Primary Care Unavailable J Luis Diaz Attending Unavailable J Luis Diaz Consulting Unavailable NADYAYS, SAPNA A Primary Care Unavailable Dr. Sapna Ray DO Primary Care Provider Dr. Satya Mendenhall DO Emergency Provider Dr. Darvin Posey DO Admit Provider [phone] Darvin Posey DO Attending Provider Allergies Allergy Classification Reported Allergen(s) Allergy Type Date of Onset Reaction(s) Facility (13 sources) [place]; Translations: [ETOD[place]AC] Drug Allergy 01-16-2015 Swelling [facility] (5 sources) Seasonal allergy; Translations: [SEASONAL ALLERGIES] Allergy to substance 01-16-2015 [facility]-15-2024 [facility] Repository Medications Current Medications Medication Drug Class(es) Dates Sig (Normalized) Sig (Original) amoxicillin 875 mg / clavulanate 125 mg oral tablet (1 source) Penicillin-class Antibacterial Start: 07-18-2024 End: 07-23-2024 take 1 tablet by mouth twice daily amoxicillin-clav ulanate potassium (AUGMENTIN) 875-125 mg per tablet Take 1 tablet by mouth two times a day for 5 days. 10 tablet 07/18/2024 07/23/2024 Active Ascorbic Acid (8 sources) Vitamin C Start: 05-22-2021 take 1 g by mouth once daily Ascorbic Acid (Vitamin C) Active 1 GM PO DAILY May 22, 2021 9:23am Start: 05-22-2021 End: 10-23-2021 take 1 g by mouth once daily Ascorbic Acid (Vitamin C) 1,000 mg tablet Discontinued 1 g PO DAILY May 22, 2021 1:00am October 23, 2021 1:46pm Start: 05-22-2021 End: 10-23-2021 take 1 g by mouth once daily Ascorbic Acid (Vitamin C) Discontinued 1 GM PO DAILY May 22, 2021 12:00am October 23, 2021 12:46pm Start: 05-22-2021 End: 10-23-2021 take 1 g by mouth once daily Ascorbic Acid (Vitamin C) Discontinued 1 GM PO DAILY May 22, 2021 1:00am October 23, 2021 1:46pm Start: 05-22-2021 take 1 g by mouth once daily A scorbic Acid (Vitamin C) Active 1 GM PO DAILY May 22, 2021 1:00am aspirin 81 mg oral tablet (12 sources) Platelet Aggregation Inhibitor, Nonsteroidal Anti-inflammatory Drug Start: 04-19-2021 take 1 tablet by mouth once daily Aspirin 81 mg Tablet Active 81 mg PO DAILY April 19, 2021 1:00am heart [facility] take 1 tablet by mouth once live y aspirin, enteric coated (ASPIRIN, ENTERIC COATED) 81 mg EC tablet Take 81 mg by mouth once daily. Active Comment on above: Take 81 mg by mouth once daily. cholecalciferol 1.25 mg oral capsule (8 sources) Vitamin D Start: take 1 capsule by mouth every week Cholecalciferol (Vitamin D3) 1,250 mcg (50,000 unit) capsule Active 1250 ug PO EVERY WEEK May 22, 2021 1:00am vitamin cyclobenzaprine hydrochloride 10 mg oral tablet (3 sources) Muscle Relaxant Start: take 10 mg by mouth twice daily Cyclobenzaprine Active 10 MG PO TWICE A DAY July 09, 2021 8:42pm diphenhydrAMINE hydrochloride 25 mg oral capsule (20 sources) Histamine-1 Receptor Antagonist Start: take 2 capsules by mouth twice daily as needed Diphenhydramine Hcl (Benadryl) 25 mg capsule Active 50 mg PO TWICE A DAY as needed for Itching May 22, 2021 1:00am Start: 05-22-2021 take 1 capsule by [facility] twice daily Diphenhydramine Hcl (Benadryl) 25 mg capsule Active 25 MG PO TWICE A DAY May 22, 2021 9:21am Start: 04-19-2021 End: 04-23-2021 take 1 capsule by mouth twice daily as needed Diphenhydramine Hcl (Benadryl) 50 mg Capsule Discontinued 50 mg PO TWICE A DAY as needed for Allergic Reaction April 19, 2021 1:00am April 23, 2021 9:19am Comment on above: Take 25 mg by mouth as needed. DULoxetine 60 mg delayed release oral capsule (20 sources) Serotonin and Norepinephrine Reuptake Inhibitor Start: take 1 capsule by mouth twice daily Duloxetine 60 mg capsule,delayed release(DR/EC) Active 60 mg PO TWICE A DAY April 07, 2021 1:00am depression Start: 04-07-2021 End: 10-23-2021 take 1 capsule by mouth once daily Duloxetine 30 mg capsule,delayed release(DR/EC) Discontinued 30 mg PO DAILY April 07, 2021 1:00am October 23, 2021 1:52pm depression Start: 04-07-2021 DULoxetine (CY MBALTA) 60 mg capsule ergocalciferol 1.25 mg oral capsule (4 sources) Provitamin D2 Compound take 1 capsule by mouth every week ergocalciferol, vitamin D2, (DRISDOL) 50,000 unit capsule Take 50,000 Units by mouth once each week. Active Comment on above: Take 50,000 Units by mouth once each week. erythromycin 0.005 mg/mg ophthalmic ointment (2 sources) Macrolide, Macrolide Antimicrobial Start: erythromycin (ROMYCIN) 5 mg/gram (0.5 %) ophthalmic ointment Use 1 application in both eyes daily at bedtime. 3.5 g 1 02/04/2022 Active Comment on above: Use 1 application in both eyes daily at bedtime. fenofibrate 67 mg oral capsule (12 sources) Peroxisome Proliferator Receptor alpha Agonist Start: take 1 capsule by mouth twice daily Fenofibrate Micronized 67 mg capsule Active 67 mg PO TWICE A DAY April 07, 2021 1:00am HLD take 1 capsule by mouth once calli ly fenofibrate (LOFIBRA) 67 mg capsule Take 67 mg by mouth once daily. Active Comment on above: Take 67 mg by mouth once daily. fluconazole 150 mg oral tablet (1 source) Azole Antifungal Start: 07-18-2024 End: 07-18-2024 fluconazole (DIFLUCAN) 150 mg tablet Indications: Antibiotic-induced yeast infection Take 1 tablet by mouth one time only for 1 dose. Repeat in 3 days as needed. 2 tablet 07/18/2024 07/18/2024 Active 3 ml insulin glargine 100 unt/ml pen injector (20 sources) Insulin Analog Start: 10-30-2021 Insulin Glargine (Lantus Solostar U-100 Insulin) 100 unit/mL (3 mL) insulin pen Active 50 - 75 U SC TWICE A DAY October 30, 2021 1:01pm blood sugar Start: 10-30-2021 Insulin Glargi ne (Lantus Solostar U-100 Insulin) 100 unit/mL (3 mL) insulin pen Active 50 - 75 UNITS SC TWICE A DAY October 30, 2021 12:01pm Start: 04-23-2021 End: 10-30-2021 Insulin Glargine (Lantus Susana ostar U-100 Insulin) 100 unit/mL (3 mL) Insulin Pen Discontinued 75 U SC TWICE A DAY 45 30 0 April 23, 2021 1:00am October 30, 2021 1:02pm Start: 04-19-2021 End: 04-23-2021 Insulin Glargine (Lantus Susana ostar U-100 Insulin) 100 unit/mL (3 mL) insulin pen Discontinued 20 U SC DAILY April 19, 2021 2:09pm April 23, 2021 9:20am Hold for Glucose less than 130 mg/dl Start: 04-09-2021 End: 04-19-2021 Insulin Glargine (Lantus Susana ostar U-100 Insulin) 100 unit/mL (3 mL) insulin pen Discontinued 30 U SC DAILY 15 0 April 09, 2021 11:15am April 19, 2021 2:10pm Hold for Glucose less than 130 mg/dl Start: 03-24-2021 End: 04-09-2021 Insulin Glargine (Lantus Susana ostar U-100 Insulin) 100 unit/mL (3 mL) insulin pen Discontinued 15 U SC DAILY 15 0 March 24, 2021 1:00am April 09, 2021 11:15am Start: 05-23-2015 End: 04-15-2017 inject 80 [IU] by subcutaneous injection at bedtime Insulin Glargine 100 UNIT/ML solution Discontinued 80 U SQ AT BEDTIME May 23, 2015 1:00am April 15, 2017 10:51am Start: 05-23-2015 End: 04-15-2017 inject 70 [IU] by subcutaneous injection at breakfast Insulin Glargine 100 UNIT/ML solution Discontinued 70 U SQ WITH BREAKFAST May 23, 2015 1:00am April 15, 2017 10:51am inject 70 [IU] by peralta bcutaneous injection once daily in the morning, then inject 80 [IU] by subcutaneous injection in the evening insulin glargine (LANTUS) 100 unit/mL injection Inject subcutaneously once daily. 70 units SC in AM, 80 units SC in PM Active Comment on above: Inject subcutaneousl y once daily. 70 units SC in AM, 80 units SC in PM 3 ml insulin lispro 100 unt/ml pen injector (20 sources) Insulin Analog Start: 04-23-2021 Insulin Lispro (Humalog Kwikpen Insulin) 100 unit/mL Insulin Pen Active 20 U SC THREE TIMES DAILY BEFORE MEALS 18 30 0 April 23, 2021 1:00am blood suagr Start: 04-19-2021 End: 04-23-2021 Insulin Lispro 100 unit/mL i nsulin pen Discontinued 0 U SC 3 TIMES DAILY WITH MEALS April 19, 2021 2:09pm April 23, 2021 9:20am diabetes sliding scale Please contact the information source for Protocol details. Start: 04-19-2021 End: 04-23-2021 Insulin Lispro Discontinued 0 UNIT SC 3 TIMES DAILY WITH MEALS April 19, 2021 1:09pm April 23, 2021 8:20am sliding scale Start: 04-09-2021 End: 04-19-2021 Insulin Lispro 100 unit/mL i nsulin pen Discontinued 20 U SC 3 TIMES DAILY WITH MEALS 15 0 April 09, 2021 11:15am April 19, 2021 2:10pm diabetes Hold for Glucose less than 130 mg/dl Please contact the information source for Protocol details. Start: 04-07-2021 End: 04-09-2021 Insulin Lispro 100 unit/mL i nsulin pen Discontinued SC April 07, 2021 1:00am April 09, 2021 11:15am diabetes sliding scale insulin 151-200 - 4units 201-250 - 6units 251-300 - 8units 301-350 - 10 units 351-400 - 12 units > 400 - call doctor Please contact the information source for Protocol details. Start: 04-07-2021 End: 04-09-2021 Insulin Lispro Discontinued SC April 07, 2021 12:00am April 09, 2021 10:15am sliding scale insulin 151-200 - 4units 201-250 - 6units 251-300 - 8units 301-350 - 10 units 351-400 - 12 units > 400 - call doctor Insulin Syringe-Needle U-100 (BD ULTRAFINE INSULIN) 1 mL 31 x 5/16 syrg (4 sources) Insulin Syringe- Needle U-100 (BD ULTRAFINE INSULIN) 1 mL 31 x 5/16 syrg five times daily. Active Insulin Syringe- Needle U-100 (BD ULTRAFINE INSULIN) 1 mL 31 x 08/19 syrg five times daily. 0 Active Comment on above: five times daily. lactobacillus acidophilus 1 mg oral tablet (1 source) Start: 10-19-19 take 1 tablet by mouth twice daily Lactobacillus Acidophilus 0.5 mg (100 million cell) tablet Active 1 mg PO TWICE A DAY October 18, 2024 12:00am levocetirizine dihydrochloride 5 mg oral tablet (13 sources) Histamine-1 Receptor Antagonist Start: 10-19-19 take 1 tablet by mouth once daily Levocetirizine 5 mg tablet Active 5 mg PO DAILY October 18, 2024 12:00am Start: 05-22-2021 End: 01-15-2024 take 1 tablet by mouth once daily in the evening as needed Levocetirizine (Xyzal) 5 mg tablet Discontinued 5 mg PO EVERY EVENING as needed for allergies May 22, 2021 1:00am January 15, 2024 4:06pm levocetirizine d ihydrochloride (XYZAL ORAL) Take by mouth. Active levocetirizine d ihydrochloride (XYZAL ORAL) Take by mouth. 0 Active Comment on above: Take by mouth. lisinopril 2.5 mg oral tablet (13 sources) Angiotensin Converting Enzyme Inhibitor Start: 10-18-2024 take 1 tablet by mouth once daily Lisinopril 2.5 mg tablet Active 2.5 mg PO DAILY October 18, 2024 12:00am Start: 03-23-2021 End: 10-23-2021 take 1 tablet by mouth once daily Lisinopril 2.5 mg Tablet Discontinued 2.5 mg PO DAILY March 23, 2021 1:00am October 23, 2021 1:50pm kidneys Comment on above: Take 2.5 mg by mouth once daily. loratadine 10 mg oral capsule (4 sources) take 1 capsule by mouth once daily loratadine 10 mg cap Take 10 mg by mouth once daily. Active Comment on above: Take 10 mg by mouth once daily. 24 hr metFORMIN hydrochloride 500 mg extended release oral tablet (20 sources) Biguanide Start: Metformin 500 mg tablet extended release 24 hr Active 1000 mg PO TWICE A DAY December 07, 2023 12:00am diabetes Start: 05-22-2021 End: 01-15-2024 take 1 tablet by mouth twice daily Metformin 1,000 mg tablet Discontinued 1000 mg PO TWICE A DAY May 22, 2021 1:00am January 15, 2024 4:07pm Start: 03-24-2021 End: 04-23-2021 take 1 tablet by mouth twice daily Metformin 1,000 mg tablet Discontinued 1000 mg PO TWICE A DAY 60 1 March 24, 2021 1:00am April 23, 2021 9:20am Start: 03-23-2021 End: 03-24-2021 take 1 tablet by mouth twice daily Metformin 500 mg Tablet Discontinued 500 mg PO TWICE A DAY March 23, 2021 1:00am March 24, 2021 2:07pm sugar Start: 05-23-2015 End: 04-15-2017 take 1 tablet by mouth twice daily at mealtime Metformin 1,000 MG tablet Discontinued 1000 mg PO TWICE DAILY WITH MEALS May 23, 2015 1:00am April 15, 2017 10:49am Comment on above: Take 1,000 mg by julianne th twice daily with meals. omeprazole 20 mg delayed release oral capsule (12 sources) Proton Pump Inhibitor Start: take 1 capsule by mouth once daily Omeprazole 20 mg Capsule,Delayed Release(Dr/Ec) Active 20 mg PO DAILY March 23, 2021 1:00am gerd Comment on above: Take 20 mg by mouth once daily. ondansetron 8 mg oral tablet (20 sources) Serotonin-3 Receptor Antagonist Start: take 1 tablet by mouth every eight hours as needed for nausea Ondansetron Hcl 8 mg tablet Active 8 mg PO Q8H as needed for Nausea May 22, 2021 1:00am Start: 03-23-2021 End: 04-23-2021 take 2 tablets by mouth three times daily as needed for nausea Ondansetron 4 mg Tablet,Disintegrating Discontinued 8 mg PO THREE TIMES A DAY as needed for Nausea March 23, 2021 1:00am April 23, 2021 9:20am Start: 03-23-2021 End: 04-23-2021 take 8 mg by mouth three times daily Ondansetron Discontinued 8 MG PO THREE TIMES A DAY March 23, 2021 12:00am April 23, 2021 8:20am phenylephrine hydrochloride 25 mg/ml ophthalmic solution (1 source) alpha-1 Adrenergic Agonist Start: 02-04-2022 End: 02-04-2022 PHENYLephrine 2.5 % 1 Drop (AK-DILATE, GUTIERREZ-SYNEPHRINE) pregabalin 150 mg oral capsule (1 source) Start: 10-18-2024 take 1 capsule by mouth twice daily Pregabalin 150 mg capsule Active 150 mg PO TWICE A DAY October 18, 2024 12:00am proparacaine hydrochloride 5 mg/ml ophthalmic solution (1 source) Local Anesthetic Start: 02-04-2022 End: 02-04-2022 proparacaine 0.5 % 1 Drop (ALCAINE) sodium chloride 0.111 meq/ml nasal spray (2 sources) Start: 10-18-2024 Sodium Chloride (Sodium Chloride 0.65 % Nasal [place] Aerosol) 0.65 % aerosol,spray Active 1 NMA INTRANASAL 4 TIMES DAILY NEEDED as needed for allergies October 18, 2024 12:00am Start: 07-18-2024 sodium chlorid e (SALINE MIST) 0.65 % nasal spray Indications: Bacterial sinusitis Use 1 spray in the nose four times a day as needed for cold/allergy symptoms. 88 mL 2 07/18/2024 Active tropicamide 10 mg/ml ophthalmic solution (1 source) Anticholinergic Start: 02-04-2022 End: 02-04-2022 tropicamide 1 % 1 Drop (MYDRIACYL) Completed/Discontinued Medications Medication Drug Class(es) Dates Sig (Normalized) Sig (Original) acetaminophen 325 mg / HYDROcodone bitartrate 5 mg oral tablet (8 sources) Opioid Agonist Start: 07-09-2021 End: 10-23-2021 Hydrocodone-Acetami nophen 5-325 mg tablet Discontinued 1 {tbl} PO EVERY 6 HOURS as needed for pain 10 3 0 July 09, 2021 October 23, 2021 1:50pm Sciatica Sciatica, unspecified side Start: 07-09-2021 End: 10-23-2021 take 1 tablet by mouth every six hours Hydrocodone-Acetaminophen Discontinued 1 TABLET PO EVERY 6 HOURS 10 3 July 09, 2021 October 23, 2021 12:50pm acetaminophen 325 mg / oxyCODONE hydrochloride 5 mg oral tablet (12 sources) Opioid Agonist Start: 10-30-2021 End: 01-15-2024 Oxycodone-Acetaminophen (Percocet) 5-325 mg tablet Discontinued 1 {tbl} PO TWICE A DAY as needed for Pain October 30, 2021 1:03pm January 15, 2024 4:07pm Start: 09-05-2021 End: 10-30-2021 Oxycodone-Acetaminophen (Per cocet) 5-325 mg tablet Discontinued 1 {tbl} PO EVERY 6 HOURS as needed for pain 12 3 0 September 05, 2021 October 30, 2021 1:03pm Sciatica of right side Sciatica, right side bacillus coagulans [id number] unt / lactobacillus acidophilus [id number] unt oral tablet (8 sources) Start: 04-07-2021 End: 01-15-2024 Acidophilus-Sporogenes (Acid ophilus Ex Str (L. Sporog)) 35 million- 25 million cell tablet Discontinued 2 {tbl} PO TWICE A DAY April 07, 2021 1:00am January 15, 2024 4:05pm GI Start: 04-07-2021 take [address] [facility] once daily Acidophilus-Sporogenes (Acidophilus Ex Str (L. Sporog)) 35 million- 25 million cell tablet Active 1 TABLET PO DAILY April 08, 2021 12:32am busPIRone hydrochloride 5 mg oral tablet (1 [...] needed. CPAP (1 source) End: 08-29-2021 CPAP doxycycline monohydrate 100 mg oral tablet (8 sources) Tetracycline-class Drug Start: 04-09-2021 End: 04-23-2021 take 1 tablet by mouth twice daily Doxycycline Monohydrate 100 mg tablet Discontinued 100 mg PO TWICE A DAY 10 April 09, 2021 1:00am April 23, 2021 9:20am exenatide 2 mg injection (1 source) GLP-1 Receptor Agonist End: 08-29-2021 exenatide (BYDUREON) 2 mg ER subcutaneous injection vial Inject subcutaneously. 0 08/29/2021 Discontinued Comment on above: Inject subcutaneousl y. gabapentin 600 mg oral tablet (20 sources) Anti-epileptic Agent Start: 03-23-2021 End: 01-15-2024 take 1 tablet by mouth three times daily Gabapentin 600 mg Tablet Discontinued 600 mg PO THREE TIMES A DAY March 23, 2021 1:00am January 15, 2024 4:06pm nerve pain Start: 05-23-2015 End: 04-15-2017 take 2 capsules by mouth twice daily at mealtime Gabapentin 300 MG capsule Discontinued 600 mg PO TWICE DAILY WITH MEALS May 23, 2015 1:00am April 15, 2017 10:50am Start: 05-23-2015 End: 04-15-2017 take 600 mg by mouth twice daily at mealtime Gabapentin Discontinued 600 MG PO TWICE DAILY WITH MEALS May 23, 2015 12:00am April 15, 2017 9:50am End: 07-18-2024 take 1 capsule by mouth four times daily gabapentin (NEURONTIN) 300 mg capsule Take 300 mg by mouth four times daily. 07/18/2024 Discontinued (Course of therapy completed) Comment on above: Take 300 mg by mouth four times daily. glipiZIDE 5 mg oral tablet (8 sources) Sulfonylurea Start: 04-15-19 End: 03-08-20 take 1 tablet by mouth twice daily Glipizide 5 mg tablet Discontinued 5 mg PO TWICE A DAY April 15, 2017 1:00am March 08, 2020 2:52pm diabetes insulin aspart, human 100 unt/ml injectable solution (12 sources) Insulin Analog Start: 05-23-19 End: 04-15-19 inject 30 [IU] by subcutaneous injection three times daily at mealtime Insulin Aspart U-100 100 UNIT/ML solution Discontinued 30 U SQ 3 TIMES DAILY WITH MEALS May 23, 2015 1:00am April 15, 2017 10:51am inject 30 [IU] by peralta bcutaneous injection once daily before mealtime insulin aspart (NOVOLOG) 100 unit/mL susana n Inject 30 Units subcutaneously once daily. Before meals Active Comment on above: Inject 30 Units subc utaneously once daily. Before meals insulin detemir 100 unt/ml injectable solution (8 sources) Insulin Analog Start: End: inject 20 [IU] by subcutaneous injection at bedtime Insulin Detemir U-100 100 UNIT/ML solution Discontinued 20 U SQ AT BEDTIME March 07, 2020 1:00am March 08, 2020 2:53pm diabetes levoFLOXacin 750 mg oral tablet (8 sources) Quinolone Antimicrobial Start: End: take 1 tablet by mouth once daily Levofloxacin 750 mg tablet Discontinued 750 mg PO DAILY 3 3 0 April 23, 2021 1:00am May 22, 2021 9:24am methocarbamol 500 mg oral tablet (9 sources) Muscle Relaxant Start: End: take 1 tablet by mouth twice daily Methocarbamol 500 MG tablet Discontinued 500 mg PO TWICE A DAY May 23, 2015 1:00am April 15, 2017 10:48am Comment on above: Take 500 mg by mouth twice daily. metoprolol tartrate 25 mg oral tablet (8 sources) beta-Adrenergic [place] Start: End: take 1 tablet by mouth twice daily Metoprolol Tartrate 25 mg Tablet Discontinued 25 mg PO TWICE A DAY 60 0 April 09, 2021 1:00am May 22, 2021 9:25am Hold for HR miconazole nitrate 20 mg/ml topical cream (1 source) Azole Antifungal End: miconazole (MONISTAT-DERM,EMMANUEL ) 2 % cream Apply 1 application to affected area twice daily. 0 08/29/2021 Discontinued Comment on above: Apply 1 application to affected area twice daily. montelukast 10 mg oral tablet (9 sources) Leukotriene Receptor Antagonist Start: End: take 1 tablet by mouth at bedtime Montelukast 10 MG tablet Discontinued 10 mg PO AT BEDTIME May 23, 2015 1:00am April 15, 2017 10:47am Comment on above: Take 10 mg by mouth once daily. nabumetone 750 mg oral tablet (14 sources) Nonsteroidal Anti-inflammatory Drug Start: End: 10-11-2 024 take 1 tablet by mouth twice daily Nabumetone 750 mg tablet Discontinued 750 mg PO TWICE A DAY October 23, 2021 12:00am January 15, 2024 4:07pm Start: 05-23-2015 End: 08-29-2021 take 1 tablet by mouth once daily Nabumetone 750 MG tablet Discontinued 750 mg PO DAILY May 23, 2015 1:00am April 15, 2017 10:46am Comment on above: Take 750 mg by mouth once daily. naproxen 500 mg oral tablet (8 sources) Nonsteroidal Anti-inflammatory Drug Start: 2 End: 2 take 1 tablet by mouth twice daily as needed for pain Naproxen (Naprosyn) 500 mg tablet Discontinued 500 mg PO TWICE A DAY as needed for pain July 09, 2021 12:00am October 23, 2021 1:51pm 24 hr oxybutynin chloride 10 mg extended release oral tablet (9 sources) Cholinergic Muscarinic Antagonist Start: 7 End: 2 take 1 tablet by mouth once daily Oxybutynin Chloride 10 MG tablet extended release 24 hr Discontinued 10 mg PO DAILY October 10, 2016 12:00am March 24, 2017 6:14pm Comment on above: TAKE 1 TABLET BY JULIANNE TH DAILY predniSONE 20 mg oral tablet (16 sources) Start: 2 End: 2 take 2 tablets by mouth once daily Prednisone 20 mg tablet Discontinued 40 mg PO DAILY July 09, 2021 12:00am October 23, 2021 1:51pm Start: 07-09-2021 End: 10-23-2021 take 40 mg by mouth once daily Prednisone Discontinued 40 MG PO DAILY July 08, 2021 11:00pm October 23, 2021 12:51pm Start: 04-23-2021 End: 05-22-2021 take 2 tablets by mouth once daily Prednisone 20 mg tablet Discontinued 40 mg PO DAILY April 23, 2021 1:00am May 22, 2021 9:25am Start: 04-23-2021 End: 05-22-2021 take 40 mg by mouth once daily Prednisone Discontinued 40 MG PO DAILY April 23, 2021 12:00am May 22, 2021 8:25am rosuvastatin calcium 40 mg oral tablet (1 [...] Take 200 mg by mouth once daily. tiZANidine 6 mg oral capsule (5 sources) Central alpha-2 Adrenergic Agonist Start: 10-30-2021 End: 01-15-2024 take 1 capsule by mouth three times daily as needed for muscle spasms Tizanidine 6 mg Capsule Discontinued 6 mg PO THREE TIMES A DAY as needed for muscle spasms October 30, 2021 12:00am January 15, 2024 4:07pm topiramate 50 mg oral tablet (1 source) End: 08-29-2021 take 1 tablet by mouth twice daily Topiramate (TOPAMAX) 50 mg tablet Take 50 mg by mouth twice daily. 0 08/29/2021 Discontinued Comment on above: Take 50 mg by mouth twice daily. Problems Active Problems Problem Classification Problem Date Documented Date Episodic/Chronic Acute and unspecified renal failure (8 sources) Injury of kidney; Translations: [Acute kidney failure, unspecified] 04-22-2021 Episodic Asthma (4 sources) Asthma; Translations: [Unspecified asthma, uncomplicated] Onset: 02-07-2015 02-07-2015 Chronic Cardiac dysrhythmias (9 sources) Sinus tachycardia; Translations: [Tachycardia, unspecified] Episodic Cataract (3 sources) Bilateral senile combined form cataracts of eyes; Translations: [Combined forms of age-related cataract, bilateral] Onset: 02-04-2022 Chronic Congestive heart failure; nonhypertensive (2 sources) Acute exacerbation of chronic congestive heart failure; Translations: [Heart failure, unspecified] 10-18-2024 Chronic Diabetes mellitus with complications (20 sources) Diabetic ketoacidosis; Translations: [Type 2 diabetes mellitus with ketoacidosis without coma] Chronic Diabetes mellitus without complication (20 sources) Diabetes mellitus; Translations: [Type 2 diabetes mellitus without complications] Onset: 02-07-2015 02-07-2015 Chronic Diabetes mellitus without complication (2 sources) Hyperglycemia, unspecified; Translations: [Hyperglycemia] Onset: 01-18-2024 01-15-2024 Episodic Disorders of lipid metabolism (14 sources) Hyperlipidemia; Translations: [Hyperlipidemia, unspecified] Onset: 02-07-2015 Chronic Esophageal disorders (8 sources) Gastroesophageal reflux disease; Translations: [Gastro-esophageal reflux disease without esophagitis] Onset: 02-07-2015 02-07-2015 Chronic Essential hypertension (5 sources) Hypertensive disorder; Translations: [Essential (primary) hypertension] Onset: 02-07-2015 02-07-2015 Chronic Fluid and electrolyte disorders (16 sources) Acute hyponatremia; Translations: [Hypo-osmolality and hyponatremia] Episodic Genitourinary symptoms and ill-defined conditions (4 sources) Female stress incontinence; Translations: [Stress incontinence (female) (male)] Onset: 04-03-2015 04-03-2015 Chronic Malaise and fatigue (4 sources) Chronic fatigue, unspecified; Translations: [[id number] syndrome manifesting as chronic fatigue] Chronic Malaise and fatigue (9 sources) Asthenia; Translations: [Weakness] Episodic Mood disorders (5 sources) Depressive disorder; Translations: [Depression] Onset: 02-07-2015 02-07-2015 Chronic Mycoses (1 source) Opportunistic mycosis; Translations: [Candidiasis, unspecified] 07-18-2024 Episodic Other circulatory disease (5 sources) Transient hypotension; Translations: [Hypotension, unspecified] 11-07-2021 Episodic Other circulatory disease (2 sources) Syncope due to orthostatic hypotension; Translations: [Orthostatic hypotension] 04-07-2022 Episodic Other connective tissue disease (13 sources) Fibromyalgia; Translations: [Fibromyalgia] Onset: 02-07-2015 02-07-2015 Episodic Other connective tissue disease (8 sources) Panniculitis; Translations: [Panniculitis, unspecified] 04-22-2021 Episodic Other connective tissue disease (8 sources) Recurrent falls ; Translations: [Repeated falls] 04-22-2021 Episodic Other connective tissue disease (1 source) Paraparesis; Translations: [Other symptoms and signs involving the musculoskeletal system] Episodic Other diseases of bladder and urethra (4 sources) Detrusor overactivity; Translations: [Overactive bladder] Onset: 04-03-2015 04-03-2015 Chronic Other diseases of kidney and ureters (7 sources) Acute renal insufficiency; Translations: [Disorder of kidney and ureter, unspecified] 11-07-2021 Episodic Other inflammatory condition of skin (8 sources) Intertrigo; Translations: [Erythema intertrigo] 04-22-2021 Episodic Comment on above: abdominal wall skin crease intertrigo Other injuries and conditions due to external causes (1 source) Foreign body in right ear, initial encounter; Translations: [Foreign body in right ear, initial encounter] Onset: 12-28-2023 Episodic Other lower respiratory disease (8 sources) Hypoxia; Translations: [Hypoxemia] 05-01-2021 Episodic Other lower respiratory disease (1 source) Hypoxemia; Translations: [Hypoxemia] Episodic Other lower respiratory disease (2 sources) Rib pain; Translations: [Pleurodynia] Episodic Other non-traumatic joint disorders (2 sources) Pain in right knee; Translations: [Pain in joint, lower leg] Episodic Other nutritional; endocrine; and metabolic disorders (8 sources) Excess panniculus of abdomen; Translations: [Localized adiposity] 04-22-2021 Chronic Other nutritional; endocrine; and metabolic disorders (8 sources) Excessive weight loss; Translations: [Abnormal weight loss] 04-22-2021 Episodic Other upper respiratory infections (1 source) Bacterial sinusitis; Translations: [Chronic sinusitis, unspecified] 07-18-2024 Chronic Pleurisy; pneumothorax; pulmonary collapse (2 sources) Pleural effusion; Translations: [Pleural effusion, not elsewhere classified] 10-18-2024 Episodic Pneumonia (except that caused by tuberculosis or sexually transmitted disease) (9 sources) Bilateral pneumonia; Translations: [Pneumonia, unspecified organism] Episodic Residual codes; unclassified (4 sources) Obstructive sleep apnea syndrome; Translations: [Obstructive sleep apnea (adult) (pediatric)] Onset: 02-07-2015 02-07-2015 Chronic Screening and history of mental health and substance abuse codes (8 sources) Ex-smoker; Translations: [Personal history of nicotine dependence] 04-22-2021 Episodic Skin and subcutaneous tissue infections (2 sources) Cutaneous abscess of abdominal wall; Translations: [Abscess of abdominal wall] Onset: 02-11-2024 01-15-2024 Episodic Spondylosis; intervertebral disc disorders; other back problems (20 sources) Sciatica; Translations: [Sciatica, unspecified side] Episodic Sprains and strains (8 sources) Sprain of ankle; Translations: [Sprain of unspecified ligament of right ankle, initial encounter] 03-25-2016 Episodic Superficial injury; contusion (16 sources) Abrasion and/or friction burn of wrist without infection; Translations: [Abrasion of unspecified wrist, initial encounter] 09-08-2019 Episodic Viral infection (17 sources) COVID-19; Translations: [Pneumonia due to COVID-19 virus] Episodic Past or Other Problems Problem Classification Problem Date Documented Da te Episodic/Chronic Blindness and vision defects (2 sources) Severe myopia; Translations: [Myopia, bilateral] Onset: 02-04-2022 02-04-2022 Episodic Menstrual disorders (4 sources) Menometrorrhagia; Translations: [Excessive and frequent menstruation with irregular cycle] Onset: 01-22-2015 Resolved: 07-06-2015 07-06-2015 Chronic Other eye disorders (3 sources) Meibomian gland dysfunction of bilateral eyes; Translations: [Meibomian gland dysfunction right eye, upper and lower eyelids] Onset: 02-04-2022 Episodic Prolapse of female genital organs (4 sources) Second degree uterine prolapse; Translations: [Incomplete uterovaginal prolapse] Onset: 05-23-2015 Resolved: 07-06-2015 07-06-2015 Chronic Residual codes; unclassified (2 sources) Abnormal cytology findings; Translations: [ASCUS with positive high risk HPV] Onset: 01-22-2015 Resolved: 07-06-2015 07-06-2015 Episodic Unclassified (5 sources) ULCERS 10-25-2021 Results Test Name Value Interpretation Reference Range Facility Absolute lymphocyte countOrd ered By: Satya Mendenhall on 10-18-2024 Lymphocytes Auto (Unsp spec) [#/Vol] 1.63 10*3/uL 0.83-4.51 [facility] Absolute neutrophil countOrd ered By: Satya Mendenhall on 10-18-2024 Neutrophils (Bld) [#/Vol] 3.3 10*3/uL 2.0-7.7 [facility] Anion gap in Serum or Plasma Ordered By: Satya Mendenhall on 10-18-2024 Anion gap [Moles/Vol] 12 mmol/L 5-15 [facility] Automated lymphocyte count a s percentage of total leukocytesOrdered By: Satya Mendenhall on 10-18-2024 Lymphocytes/100 WBC Auto (Unsp spec) 28.6 % 19-41 [facility] BUN/creatinine ratioOrdered By: Satya Mendenhall on 10-18-2024 Urea nitrogen/Creatinine [Mass ratio] 36.8 mg/mg High 10-20 [facility] Basophil percentageOrdered B y: Satya Mendenhall on 10-18-2024 Basophils/100 WBC (Bld) 0.5 % 0-1 [facility] Carbon dioxide, total [Moles /volume] in Central venous bloodOrdered By: Satya Mendenhall on 10-18-2024 CO2 [Moles/Vol] 21.3 mmol/L 21.0-32.0 [facility] Chloride assayOrdered By: Alonso Mendenhall on 10-18-2024 Chloride [Moles/Vol] 102 mmol/L 98-108 [facility] Eosinophil percentageOrdered By: Satya Mendenhall on 10-18-2024 Eosinophils/100 WBC (Bld) 1.6 % 0-5 [facility] Erythrocyte distribution wid th ratioOrdered By: Satya Mendenhall on 10-18-2024 Erythrocyte distribution width (RBC) [Ratio] 14.4 % 11.6-14.6 [facility] Erythrocyte distribution wid th standard deviationOrdered By: Satya De Los Santos on 10-18-2024 Erythrocyte distribution width (RBC) [Ratio] 44.6 fl High 35.1-43.9 [facility] Glomerular filtration rate ( GFR) estimation/1.73 sq m using serum, plasma, or whole bOrdered By: Satya Mendenhall on 10-18-2024 GFR/1.73 sq M.predicted among non-blacks MDRD (S/P/Bld) [Vol rate/Area] 67 mL/min/{1.73_m2} >60 [facility] Comment on above: mL/min/1.73m2 CKD-EP I Creatinine Equation (2020) Hematocrit Auto (Bld) [Volum e fraction]Ordered By: Satya Mendenhall on 10-18-2024 Hematocrit (Bld) [Volume fraction] 30.7 % Low 37-47 [facility] Hemoglobin measurementOrdere d By: Satya Mendenhall on 10-18-2024 Hemoglobin (Bld) [Mass/Vol] 10.2 g/dL Low 12.0-15.0 [facility] Immature granulocytes/100 WB C Auto (Bld)Ordered By: Satya Mendenhall on 10-18-2024 Immature granulocytes/100 WBC (Bld) 2.300 % High 0.0-0.9 [facility] Comment on above: IG% - Immature Granu locytes (promyelocytes, myelocytes and metamyelocytes) > 1% indicates that a LEFT SHIFT is Present. Influenza virus A and B and SARS-CoV-2 (COVID-19) and Respiratory syncytial virus RNAOrdered By: Satya Mendenhall on 10-18-2024 SARS-CoV-2 (COVID-19) RNA RUTH+probe Ql (Unsp spec) [facility] Lactic acid measurementOrder ed By: Satya Mendenhall on 10-18-2024 Lactate [Moles/Vol] 1.4 mmol/L 0.0-2.0 [facility] MCV (mean corpuscular volume ) determinationOrdered By: Satya Mendenhall on 10-18-2024 MCV (RBC) [Entitic vol] 88.0 fL 81-99 [facility] Mean corpuscular hemoglobin (MCH) determinationOrdered By: Satya Mendenhall on 10-18-2024 MCH (RBC) [Entitic mass] 29.2 pg 27.0-32.0 [facility] Mean corpuscular hemoglobin concentration (MCHC) determinationOrdered By: Satya Mendenhall on 10-18-2024 MCHC (RBC) [Mass/Vol] 33.2 g/dL 32-36 [facility] Mean platelet volume determi nationOrdered By: Satya Mendenhall on 10-18-2024 Platelet mean volume (Bld) [Entitic vol] 10.3 fL 6.2-12.0 [facility] Monocyte percentageOrdered B y: Satya Mendenhall on 10-18-2024 Monocytes/100 WBC (Bld) 9.1 % 0-10 [facility] Natriuretic peptide.B prohor otoniel N-Terminal [Mass/volume] in Serum or PlasmaOrdered By: Satya Mendenhall on 10-18-2024 Natriuretic peptide.B prohormone N-Terminal [Mass/Vol] 2429 pg/mL High <900 [facility] Comment on above: Heart Failure Unlike ly: < 300 pg/mLHeart Failure Likely< 50 Years: > 450 pg/mL50-75 Years: > 900 pg/mL>75 Years: > 1800 pg/mL Neutrophil percentageOrdered By: Satya Mendenhall on 10-18-2024 Neutrophils/100 WBC (Bld) 57.9 % 47-70 [facility] Nucleated red blood cell per centageOrdered By: Satya Mendenhall on 10-18-2024 Nucleated RBC/100 WBC (Bld) [Ratio] 0 % 0-5 [facility] Platelet countOrdered By: Alonso Mendenhall on 10-18-2024 Platelets (Bld) [#/Vol] 178 10*3/uL 150-450 [facility] Potassium measurement (mass/ volume)Ordered By: Satya Mendenhall on 10-18-2024 Potassium (Unsp spec) [Mass/Vol] 5.3 mmol/L High 3.3-5.1 [facility] RBC Auto (Bld) [#/Vol]Ordere d By: Satya Mendenhall on 10-18-2024 RBC (Bld) [#/Vol] 3.49 10*6/uL Low 4.2-5.4 [facility] Serum creatinine measurement (mass/volume)Ordered By: Satya Mendenhall on 10-18-2024 Creatinine [Mass/Vol] 1.01 mg/dL 0.70-1.20 [facility] Serum glucose measurement (m ass/volume)Ordered By: Satya Mendenhall on 10-18-2024 Glucose [Mass/Vol] 412 mg/dL High 70-99 [facility] Serum or plasma calcium cherelle urement (mass/volume)Ordered By: Satya De Los Santos on 10-18-2024 Calcium [Mass/Vol] 8.7 mg/dL 7.6-11.0 [facility] Serum or plasma urea nitroge n measurement (mass/volume)Ordered By: Satya Mendenhall on 10-18-2024 Urea nitrogen [Mass/Vol] 37 mg/dL High 4-19 [facility] Sodium levelOrdered By: Andrew Mendenhall on 10-18-2024 Sodium [Moles/Vol] 135 mmol/L 133-145 [facility] Troponin T.cardiac [Mass/vol ume] in Serum or Plasma by High sensitivity methodOrdered By: Satya Mendenhall on 10-18-2024 Troponin T.cardiac High sensitivity method [Mass/Vol] 34 ng/L High <14 [facility] Troponin T.cardiac High sensitivity method [Mass/Vol] 33 ng/L High <14 [facility] White blood cell (WBC) count Ordered By: Satya Mendenhall on 10-18-2024 WBC (Bld) [#/Vol] 5.7 10*3/uL 4.4-11.0 [facility] CNOVon 07-18-2024 CNOV Office Visit (UCWSTR ) MARIA ISABEL VANN ([id number]) 1970 F Date Time Provider Department 07/18/24 10:00 AM MERRY MEDRANO [facility]STR During your visit today, we recorded the following information about you: Temperature Pulse Respiration Blood pressure 98.3 degrees 118/minute 18/minute 122/78 Weight 82.8 kg Merry Medrano APRN.SALES SERVICE TECHNICIAN 07/18/2024 10:02 AM Signed Each of us has four paired cavities (spaces) in our head that are connected to the nose by narrow channels. These cavities, known as sinuses, produce a thin mucus that drains out of the channels of the nose. Normally, sinuses are filled with air. But when sinuses become blocked and filled with fluid, bacteria can grow and cause an infection (sinusitis). Conditions that cause sinus blockage include the common cold, allergic rhinitis (swelling of the lining of the nose due to allergies), nasal polyps (small growths in the lining of the nose), or deviated septum (a shift in the nasal cavity). Allergies such as hay fever can also cause swelling and poor drainage of the sinuses. If you have symptoms that involve the sinuses, it may be difficult to tell if you have sinusitis, a cold, or a nasal allergy. This article will describe the symptoms, diagnosis, and treatment of sinusitis, and how to distinguish sinusitis from a cold or nasal allergy. What is sinusitis? Sinusitis is an inflammation, or swelling, of the tissue lining the sinuses. There are two types of sinusitis: Acute sinusitis: a sudden onset of cold symptoms such as runny nose, stuffy nose, and facial pain that does not go away after 7-10 days. It responds well to antibiotics and decongestants. Chronic sinusitis: characterized by nasal congestion, drainage, facial pain/pressure, and decreased sense of smell for at least 12 weeks. Who gets sinusitis? About 37 million Americans suffer from at least one episode of sinusitis each year. People who have the following conditions have a higher risk of sinusitis: Nasal mucus membrane swelling, as from a common cold Blockage of drainage ducts Structure differences that narrow the drainage ducts Conditions that result in an increased risk of infection In children, common environmental factors that contribute to sinusitis include allergies, illness from other children at day care or school, pacifiers, bottle drinking while lying on the back, and smoke in the environment. In adults, the contributing factors are most frequently infections, allergies, and smoking. What are the signs and symptoms of acute sinusitis? The primary symptoms of acute sinusitis include: Facial pain/pressure Nasal stuffiness Nasal discharge Loss of smell Cough/congestion Additional symptoms may include: Fever Bad breath Fatigue Dental pain Acute sinusitis can last four weeks or more. This condition may be diagnosed when a person has two or more symptoms and/or the presence of thick, green, or yellow nasal discharge. What are the signs and symptoms of chronic sinusitis? People with chronic sinusitis may have the following symptoms for 12 weeks or more: Facial congestion/fullness A nasal obstruction/blockage Pus in the nasal cavity Fever Nasal discharge/discolored postnasal drainage Additional symptoms may include: Headaches Bad breath Fatigue Dental pain Thick nasal discharge How is sinusitis treated? Acute sinusitis. If you have a simple sinusitis infection, your health care provider may recommend treatment with decongestants like Sudafed and steam inhalations alone, as most sinusitis is viral. Antibiotics are generally needed for more seriously ill patients. If antibiotics are administered, they are given for 10 to 14 days. With treatment, the symptoms usually disappear and antibiotics are no longer required. Oral and topical decongestants may be prescribed to alleviate the symptoms. Use of prescription intranasal steroid sprays might be effective in controlling symptoms. However, non-prescription drops or sprays should not be used beyond their recommended period--usually four to five days--or they may actually increase congestion. Chronic sinusitis. Warm moist air may alleviate sinus congestion. Using a vaporizer or inhaling steam from a kelly of boiling water (removed from heat) may also help. Warm compresses are useful to relieve pain in the nose and sinuses. Saline nose drops are also safe for home use. Nonprescription drops or sprays might be effective in controlling symptoms; however, they should not be used beyond their recommended period of time. Nasal steroid sprays that shrink swollen membranes of the nose are beneficial. Antibiotics may also be prescribed. Avoidance of triggers is important. Allergies should be controlled and irritants, such as smoke, should be avoided. Merry Medrano, YE.SALES SERVICE TECHNICIAN 07/18/2024 10:05 (more content not included)... Normal [facility] Culture, Blood (WB)on 2023 CUB Blood cultures x2, from two different sites No growth in 5 days. Normal [facility] Comment on above: Performed By: #### L 501.080 #### [facility] [place], [address] Wound Cultureon 01-17-2024 WC Staphylococcus aureu s Amount Growth 3+ Staphylococcus aureus: REACTION cefOXitin Susc Islt Doxycycline Islt YASIR <=0.5 S Clindamycin Islt YASIR 0.25 S Clindamycin.induced Susc Islt NEG Erythromycin Islt YASIR <=0.25 S Gentamicin Islt YASIR <=0.5 S Linezolid Islt YASIR 2 S Moxifloxacin Islt YASIR <=0.25 S Oxacillin Susc Islt 0.5 S Tetracycline Islt YASIR <=1 S TMP SMX Islt YASIR <=10 S Vancomycin Islt YASIR 1 S Normal [facility] Comment on above: Performed By: #### L 501.080 #### [facility] [address], [address] Bedside Glucoseon 01-16-2024 FINGERSTICK GLU 262 mg/dL High 74-106 [facility] Comment on above: Result Comment: LUCIO THAPA OF PATIENT CARE PER NURSING PROTOCOL Performed By: #### L 501.080 #### [facility] [address] [place], [address] CBC W/Diff, Automatedon 01-04 Absolute Lymph 1.20 X10 3/uL Normal 0.83-4.51 [facility] Comment on above: Performed By: #### L [id number], [id number], [id number], L100.0100 #### [facility] [address] [place], [address] Absolute Neut 2.6 X10 3/uL Normal 2.0-7.7 [facility] Comment on above: Performed By: #### L [id number], [id number], [id number], L100.0100 #### [facility] [address] [place], [address] Basophils/100 WBC (Bld) 0.8 % Normal 0-1 [facility] Comment on above: Performed By: #### L [id number], [id number], [id number], L100.0100 #### [facility] [address] [place], [address] Eosinophils/100 WBC (Bld) 2.3 % Normal 0-5 [facility] Comment on above: Performed By: #### L [id number], [id number], [id number], L100.0100 #### [facility] [address] [place], [address] Erythrocyte distribution width (RBC) [Ratio] 12.5 % Normal 11.6-14.6 [facility] Comment on above: Performed By: #### L [id number], [id number], [id number], L100.0100 #### [facility] [address] [place], [address] Hematocrit (Bld) [Volume fraction] 32.2 % Low 37-47 [facility] Comment on above: Performed By: #### L [id number], [id number], [id number], L100.0100 #### [facility] [address] [place], [address] Hemoglobin (Bld) [Mass/Vol] 10.6 g/dL Low 12.0-15.0 [facility] Comment on above: Performed By: #### L [id number], [id number], [id number], L100.0100 #### [facility] [address] [place], [address] IG% 4.900 High 0.0-0.9 [facility] Comment on above: Result Comment: IG% - Immature Granulocytes (promyelocytes, myelocytes and metamyelocytes) > 1% indicates that a LEFT SHIFT is Present. Performed By: #### L [id number], [id number], [id number], L100.0100 #### [facility] [address] [place], [address] Lymphocytes/100 WBC (Bld) 25.5 % Normal 19-41 [facility] Comment on above: Performed By: #### L [id number], [id number], [id number], L100.0100 #### [facility] [address] [place], [address] MCH (RBC) [Entitic mass] 28.0 pg Normal 27.0-32.0 [facility] Comment on above: Performed By: #### L [id number], [id number], [id number], L100.0100 #### [facility] [address] [place], [address] MCHC (RBC) [Mass/Vol] 32.9 g/dL Normal 32-36 [facility] Comment on above: Performed By: #### L [id number], [id number], [id number], L100.0100 #### [facility] [address] [place], [address] MCV (RBC) [Entitic vol] 85.0 fL Normal 81-99 [facility] Comment on above: Performed By: #### L [id number], [id number], [id number], [id number] #### [facility] [address] [place], [address] Monocytes/100 WBC (Bld) 11.0 % High 0-10 [facility] Comment on above: Performed By: #### L [id number], [id number], [id number], L100.0100 #### [facility] [address] [place], [address] Neutrophils/100 WBC (Bld) 55.5 % Normal 47-70 [facility] Comment on above: Performed By: #### L [id number], [id number], [id number], [id number] #### [facility] [address] [place], [address] Nucleated RBC (Bld) [#/Vol] 0 10*3/uL Normal 0-5 [facility] Comment on above: Performed By: #### L [id number], [id number], [id number], [id number] #### [facility] [address] [place], [address] Platelet mean volume (Bld) [Entitic vol] 9.8 fL Normal 6.2-12.0 [facility] Comment on above: Performed By: #### L [id number], [id number], [id number], L100.0100 #### [facility] [address] [place], [address] Platelets (Bld) [#/Vol] 154 10*3/uL Normal 150-450 [facility] Comment on above: Performed By: #### L [id number], [id number], [id number], L100.0100 #### [facility] [address] [place], [address] RBC (Bld) [#/Vol] 3.79 10*6/uL Low 4.2-5.4 [facility] Comment on above: Performed By: #### L [id number], [id number], [id number], L100.0100 #### [facility] [address] [place], [address] RDW SD 38.5 fl Normal 35.1-43.9 [facility] Comment on above: Performed By: #### L [id number], [id number], [id number], L100.0100 #### [facility] [address] [place], [address] WBC (Bld) [#/Vol] 4.7 10*3/uL Normal 4.4-11.0 [facility] Comment on above: Performed By: #### L [id number], [id number], [id number], L100.0100 #### [facility] [address] [place], [address] Comprehensive Metabolic [facility] ilon 01-16-2024 Albumin [Mass/Vol] 2.3 g/dL Low 3.2-5.0 [facility] Comment on above: Performed By: #### L 501.5200, L500.4050, L501.9985, L100.0100 #### [facility] [address] [place], [address] Albumin/Globulin [Mass ratio] 0.6 {ratio} Low 0.9-2.4 [facility] Comment on above: Performed By: #### L 501.5200, L500.4050, L501.9985, L100.0100 #### [facility] [address] [place], [address] ALK P 86 U/L Normal 45-117 [facility] Comment on above: Performed By: #### L 501.5200, L500.4050, L501.9985, L100.0100 #### [facility] [address] [place], [address] ALT [Catalytic activity/Vol] 21 U/L Normal 13-56 [facility] Comment on above: Performed By: #### L 501.5200, L500.4050, L501.9985, L100.0100 #### [facility] [address] [place], [address] AST [Catalytic activity/Vol] 21 U/L Normal 15-37 [facility] Comment on above: Performed By: #### L 501.5200, L500.4050, L501.9985, L100.0100 #### [facility] [address] [place], [address] Bilirubin [Mass/Vol] 0.20 mg/dL Normal 0.20-1.00 [facility] Comment on above: Result Comment: For patients on eltrombopag therapy, use of Dimension [place] TBIL is not recommended. Performed By: #### L 501.5200, L500.4050, L501.9985, L100.0100 #### [facility] [address] [place], [address] BUN/CRE 37.3 RATIO High 10-20 [facility] Comment on above: Performed By: #### L 501.5200, L500.4050, L501.9985, L100.0100 #### [facility] [address] [place], [address] CA,Total 8.6 mg/dL Normal 8.5-10.1 [facility] Comment on above: Performed By: #### L 501.5200, L500.4050, L501.9985, L100.0100 #### [facility] [address] [place], [address] Chloride [Moles/Vol] 102 mmol/L Normal 98-107 [facility] Comment on above: Performed By: #### L 501.5200, L500.4050, L501.9985, L100.0100 #### [facility] [address] [place], [address] CO2 [Moles/Vol] 26.0 mmol/L Normal 21.0-32.0 [facility] Comment on above: Performed By: #### L 501.5200, L500.4050, L501.9985, L100.0100 #### [facility] [address] [place], [address] Creatinine [Mass/Vol] 0.80 mg/dL Normal 0.55-1.02 [facility] Comment on above: Result Comment: The validity of the calculated GFR GFRAA in patients over 70 years has not been determined. Clinical correlation is essential. Performed By: #### L 501.5200, L500.4050, L501.9985, L100.0100 #### [facility] [address] [place], [address] ECRCL 86.82 ml/min Normal [facility] Comment on above: Performed By: #### L 501.5200, L500.4050, L501.9985, L100.0100 #### [facility] [address] [place], [address] EST GFR - AA 96 mL/min Normal >60 [facility] Comment on above: Result Comment: Afri can Salvadorean GFR Calc Performed By: #### L 501.5200, L500.4050, L501.9985, L100.0100 #### [facility] [address] [place], [address] GAP 6 Normal 5-15 [facility] Comment on above: Performed By: #### L 501.5200, L500.4050, L501.9985, L100.0100 #### [facility] [address] [place], [address] GFR/1.73 sq M.predicted among non-blacks MDRD (S/P/Bld) [Vol rate/Area] 79 mL/min/{1.73_m2} Normal >60 [facility] Comment on above: Result Comment: Non- GFR Calc Performed By: #### L 501.5200, L500.4050, L501.9985, L100.0100 #### [facility] [address] [place], [address] Globulin (S) [Mass/Vol] 3.9 g/dL Normal 2.2-4.2 [facility] Comment on above: Performed By: #### L 501.5200, L500.4050, L501.9985, L100.0100 #### [facility] [address] [place], [address] Glucose [Mass/Vol] 298 mg/dL High 74-106 [facility] Comment on above: Result Comment: Gluc ose result greater than or equal to 200 mg/dL suggests DIABETES MELLITUS per A.D.A. criteria. Performed By: #### L 501.5200, L500.4050, L501.9985, L100.0100 #### [facility] [address] [place], [address] Potassium [Moles/Vol] 3.7 mmol/L Normal 3.5-5.1 [facility] Comment on above: Performed By: #### L 501.5200, L500.4050, L501.9985, L100.0100 #### [facility] [address] [place], [address] Sodium [Moles/Vol] 135 mmol/L Low 136-145 [facility] Comment on above: Performed By: #### L 501.5200, L500.4050, L501.9985, L100.0100 #### [facility] [address] [place], [address] T PROT 6.2 g/dL Low 6.4-8.2 [facility] Comment on above: Performed By: #### L 501.5200, L500.4050, L501.9985, L100.0100 #### [facility] [address] [place], [address] Urea nitrogen [Mass/Vol] 30 mg/dL High 7-18 [facility] Comment on above: Performed By: #### L 501.5200, L500.4050, L501.9985, L100.0100 #### [facility] [address] [place], [address] Discharge Instructionon 01-04 Discharge Instruction [facility] Medical Records Department [address] [place] [address] Instructions for Home/Discharge Instructions 01/16/24 0948 MR#: [id number] Acct: [id number] Name: MARIA ISABEL VANN Rep #: [id number] : 1970 53 From: J Luis Diaz MD PCP: Dr. Sapna Ray DO Status:ADM IN Discharge Instructions Diet Discharge Diet: Carb Control Diet Activity Discharge Activity: Return to Normal Activity Dressing / Incision Call your doctor if you observe: Fever of 101 or Higher, Shortness of breath, Dizziness, Fainting spells, Swelling in the ankles, Chest pain and Increased palpitations (irregular heartbeat) Follow Up Care Test Results: Test results from this visit will be discussed in further detail at your follow-up appointment, if applicable. Discharge Plan Admission Admit Date/Time: 01/15/24 15:58 Attending Provider: J Luis Diaz Primary Care Provider: Sapna Ray Consulting Providers: Cari Reeves Discharge Orders/Prescriptions Prescriptions: Continued ondansetron HCl 8 mg tablet 8 mg PO Q8H PRN (Reason: Nausea) cholecalciferol (vitamin D3) 1,250 mcg (50,000 unit) capsule 1,250 mcg PO QWEEK diphenhydramine HCl [Benadryl] 25 mg capsule 50 mg PO BID PRN (Reason: Itching) omeprazole 20 mg Capsule,Delayed Release(Dr/Ec) 20 mg PO DAILY fenofibrate micronized 67 mg capsule 67 mg PO BID duloxetine 60 mg capsule,delayed release(DR/EC) 60 mg PO BID aspirin 81 mg Tablet 81 mg PO DAILY insulin lispro [Humalog KwikPen Insulin] 100 unit/mL Insulin Pen 20 unit subcut TIDAC 30 Days Qty: 18 0RF insulin glargine [Lantus Solostar U-100 Insulin] 100 unit/mL (3 mL) insulin pen 50 - 75 units subcut BID metformin 500 mg tablet extended release 24 hr 1,000 mg PO BID Referrals / Follow Up: Sapna Ray DO [Primary Care Provider] - Within 1 Week Disposition Disposition (needs filled in before D/C Order can be placed): Home, Self Care 01/16/24 0951 J Luis Diaz MD CC: Dr. Sapna Ray DO; Dr. Cari Reeves MD Signed Normal [facility] Gram Stainon 01-16-2024 GS Gram Stain 1+ Red Blood Cells 2+ White Blood Cells 3+ Gram positive cocci in clusters Normal [facility] Comment on above: Performed By: #### L 501.080 #### [facility] [address] [place], [address] Hemoglobin A1con 01-16-2024 HbA1c (Bld) [Mass fraction] % High 3.8-5.6 [facility] Comment on above: Result Comment: Norm al < 5.7 % Prediabetic 5.7 - 6.4 % Diabetic >or= 6.5 % Please note range changes. Performed By: #### L 501.080 #### [facility] [address] [place], [address] Magnesiumon 01-16-2024 Magnesium [Mass/Vol] 2.1 mg/dL Normal 1.6-2.6 [facility] Comment on above: Performed By: #### L 501.5200, L500.4050, L501.9985, L100.0100 #### [facility] [address] [place], [address] Acetone Serumon 01-15-2024 ACETONE SERUM Negative Normal NEG [facility] Comment on above: Performed By: #### L 503.6005, L501.6900, L100.0100, L500.2500 #### [facility] [address] [place], [address] Basic Metabolic Profile (BMP )on 01-15-2024 BUN/CRE 25.4 RATIO High 10-20 [facility] Comment on above: Performed By: #### L 503.6005, L501.6900, L100.0100, L500.2500 #### [facility] [address] [place], [address] CA,Total 9.5 mg/dL Normal 8.5-10.1 [facility] Comment on above: Performed By: #### L 503.6005, L501.6900, L100.0100, L500.2500 #### [facility] [address] [place], [address] Chloride [Moles/Vol] 93 mmol/L Low 98-107 [facility] Comment on above: Performed By: #### L 503.6005, L501.6900, L100.0100, L500.2500 #### [facility] [address] [place], [address] CO2 [Moles/Vol] 23.0 mmol/L Normal 21.0-32.0 [facility] Comment on above: Performed By: #### L 503.6005, L501.6900, L100.0100, L500.2500 #### [facility] [address] [place], [address] Creatinine [Mass/Vol] 1.34 mg/dL High 0.55-1.02 [facility] Comment on above: Result Comment: The validity of the calculated GFR GFRAA in patients over 70 years has not been determined. Clinical correlation is essential. Performed By: #### L 503.6005, L501.6900, L100.0100, L500.2500 #### [facility] [address] [place], [address] EST GFR - AA 53 mL/min Low >60 [facility] Comment on above: Result Comment: Afri can Salvadorean GFR Calc Performed By: #### L 503.6005, L501.6900, L100.0100, L500.2500 #### [facility] [address] [place], [address] GAP 13 Normal 5-15 [facility] Comment on above: Performed By: #### L 503.6005, L501.6900, L100.0100, L500.2500 #### [facility] [address] [place], [address] GFR/1.73 sq M.predicted among non-blacks MDRD (S/P/Bld) [Vol rate/Area] 44 mL/min/{1.73_m2} Low >60 [facility] Comment on above: Result Comment: Non- GFR Calc Performed By: #### L 503.6005, L501.6900, L100.0100, L500.2500 #### [facility] [address] [place], [address] Glucose [Mass/Vol] 482 mg/dL Invalid Interpretation Code 74-106 [facility] Comment on above: Result Comment: Crit ical Result(s) Called at: 13:58:53 01/15/2024 by: Eulalio López to Marialuisa Lobo. Results read back by same. Glucose result greater than or equal to 200 mg/dL suggests DIABETES MELLITUS per A.D.A. criteria. Performed By: #### L 503.6005, L501.6900, L100.0100, L500.2500 #### [facility] [address] [place], [address] Potassium [Moles/Vol] 3.6 mmol/L Normal 3.5-5.1 [facility] Comment on above: Performed By: #### L 503.6005, L501.6900, L100.0100, L500.2500 #### [facility] [address] [place], [address] Sodium [Moles/Vol] 128 mmol/L Low 136-145 [facility] Comment on above: Performed By: #### L 503.6005, L501.6900, L100.0100, L500.2500 #### [facility] [address] [place], [address] Urea nitrogen [Mass/Vol] 34 mg/dL High 7-18 [facility] Comment on above: Performed By: #### L 503.6005, L501.6900, L100.0100, L500.2500 #### [facility] [address] [place], [address] Bedside Glucoseon 01-15-2024 FINGERSTICK GLU 420 mg/dL High 74-106 [facility] Comment on above: Result Comment: LUCIO GEMENT OF PATIENT CARE PER NURSING PROTOCOL Performed By: #### L 501.080 #### [facility] [address] [place], [address] FINGERSTICK GLU 357 mg/dL High [facility]106 [facility] Comment on above: Result Comment: LUCIO GEMENT OF PATIENT CARE PER NURSING PROTOCOL Performed By: #### L 501.080 #### [facility] [address] [place], [address] FINGERSTICK GLU 425 mg/dL High [address] [place] [address] Comment on above: Result Comment: LUCIO GEMENT OF PATIENT CARE PER NURSING PROTOCOL Performed By: #### L 501.080 #### [facility] [address] [place], [address] FINGERSTICK GLU > 500 Invalid Interpretation Code 74-106 [facility] Comment on above: Result Comment: Dr Flo rendon Followed MANAGEMENT OF PATIENT CARE PER NURSING PROTOCOL Performed By: #### L 501.080 #### [facility] [address] [place], [address] CBC W/Diff, Automatedon 01-04 Absolute Lymph 1.53 X10 3/uL Normal 0.83-4.51 [facility] Comment on above: Performed By: #### L 503.6005, L501.6900, L100.0100, L500.2500 #### [facility] [address] [place], [address] Absolute Neut 4.9 X10 3/uL Normal 2.0-7.7 [facility] Comment on above: Performed By: #### L 503.6005, L501.6900, L100.0100, L500.2500 #### [facility] [address] [place], [address] Basophils/100 WBC (Bld) 1.2 % High 0-1 [facility] Comment on above: Performed By: #### L 503.6005, L501.6900, L100.0100, L500.2500 #### [facility] [address] [place], [address] Eosinophils/100 WBC (Bld) 1.7 % Normal 0-5 [facility] Comment on above: Performed By: #### L 503.6005, L501.6900, L100.0100, L500.2500 #### [facility] [address] [place], [address] Erythrocyte distribution width (RBC) [Ratio] 12.4 % Normal 11.6-14.6 [facility] Comment on above: Performed By: #### L 503.6005, L501.6900, L100.0100, L500.2500 #### [facility] [address] [place], [address] Hematocrit (Bld) [Volume fraction] 34.8 % Low 37-47 [facility] Comment on above: Performed By: #### L 503.6005, L501.6900, L100.0100, L500.2500 #### [facility] [address] [place], [address] Hemoglobin (Bld) [Mass/Vol] 11.7 g/dL Low 12.0-15.0 [facility] Comment on above: Performed By: #### L 503.6005, L501.6900, L100.0100, L500.2500 #### [facility] [address], [address] IG% 4.300 High 0.0-0.9 [facility] Comment on above: Result Comment: IG% - Immature Granulocytes (promyelocytes, myelocytes and metamyelocytes) > 1% indicates that a LEFT SHIFT is Present. Performed By: #### L 503.6005, L501.6900, L100.0100, L500.2500 #### [facility] [address] [place], [address] Lymphocytes/100 WBC (Bld) 18.8 % Low 19-41 [facility] Comment on above: Performed By: #### L 503.6005, L501.6900, L100.0100, L500.2500 #### [facility] [address] [place], [address] MCH (RBC) [Entitic mass] 28.0 pg Normal 27.0-32.0 [facility] Comment on above: Performed By: #### L 503.6005, L501.6900, L100.0100, L500.2500 #### [facility] [address] [place], [address] MCHC (RBC) [Mass/Vol] 33.6 g/dL Normal 32-36 [facility] Comment on above: Performed By: #### L 503.6005, L501.6900, L100.0100, L500.2500 #### [facility] [address] [place], [address] MCV (RBC) [Entitic vol] 83.3 fL Normal 81-99 [facility] Comment on above: Performed By: #### L 503.6005, L501.6900, L100.0100, L500.2500 #### [facility] [address] [place], [address] Monocytes/100 WBC (Bld) 13.3 % High 0-10 [facility] Comment on above: Performed By: #### L 503.6005, L501.6900, L100.0100, L500.2500 #### [facility] [address] [place], [address] Neutrophils/100 WBC (Bld) 60.7 % Normal 47-70 [facility] Comment on above: Performed By: #### L 503.6005, L501.6900, L100.0100, L500.2500 #### [facility] [address] [place], [address] Nucleated RBC (Bld) [#/Vol] 0 10*3/uL Normal 0-5 [facility] Comment on above: Performed By: #### L 503.6005, L501.6900, L100.0100, L500.2500 #### [facility] [address] [place], [address] Platelet mean volume (Bld) [Entitic vol] 10.3 fL Normal 6.2-12.0 [facility] Comment on above: Performed By: #### L 503.6005, L501.6900, L100.0100, L500.2500 #### [facility] [address] [place], [address] Platelets (Bld) [#/Vol] 190 10*3/uL Normal 150-450 [facility] Comment on above: Performed By: #### L 503.6005, L501.6900, L100.0100, L500.2500 #### [facility] [address] [place], [address] RBC (Bld) [#/Vol] 4.18 10*6/uL Low 4.2-5.4 [facility] Comment on above: Performed By: #### L 503.6005, L501.6900, L100.0100, L500.2500 #### [facility] [address] [place], [address] RDW SD 38.1 fl Normal 35.1-43.9 [facility] Comment on above: Performed By: #### L 503.6005, L501.6900, L100.0100, L500.2500 #### [facility] [address] [place], [address] WBC (Bld) [#/Vol] 8.1 10*3/uL Normal 4.4-11.0 [facility] Comment on above: Performed By: #### L 503.6005, L501.6900, L100.0100, L500.2500 #### [facility] [address] [place], [address] Chest 1 View (Portable)on Chest 1 View (Portable) [facility] Imaging Services [address] [place] [address] Chest 1 View (Portable) MR#: [id number] Acct: [id number] Name: MARIA ISABEL VANN Rep #: [id number] : 1970 F 53 From: Carlos trinh MD PCP: Dr. Sapna Ray, Status: REG ER Study: Chest 1 View (Portable) Date of Exam: 01/15/24 Exam# [id number] Ordering Dr: Osiel Melvin [place] [id number] STUDY: X-RAY CHEST REASON FOR EXAM: Female, 53 years old. Cough TECHNIQUE: Single AP portable view of the chest. COMPARISON: Comparison is made with prior study dated March 30, 2022. FINDINGS: EKG electrodes are seen. The lungs are clear and expanded. There is no demonstrated pleural abnormality. Normal size heart. Normal mediastinum and peg. Normal visualized pulmonary arteries. Normal visualized aortic arch and descending thoracic aorta. Normal visualized thoracic spine. Normal visualized ribs, clavicles, and shoulders. There is no demonstrated abnormality of the visualized soft tissue structures of the upper abdomen. RAD/Chest 1 View (Portable) IMPRESSION: Normal x-ray examination of the chest. Electronically Signed: Carlos Pimentel MD at 14:54 EDT , CC: Dr. Sapna Ray DO; Dr. Osiel Melvin DO [employer]: Signed Normal [facility] Emergency Department Summary on 01-15-2024 Emergency Department Summary [facility] Medical Records Department [address] [place] [address] Emergency Department Summary 01/15/24 MR#: [id number] Acct: [id number] Name: MARIA ISABEL VANN Rep #: [id number] : 1970 53 From: Osiel Melvin DO PCP: Dr. Sapna Ray DO Status:ADM IN Location: [place] [address] HPI History of Present Illness Chief Complaint: Weakness Detail of Chief Complaint: Generalized weakness and not feeling well Informant: patient Narrative Narrative: Patient presents to the emergency department with complaint generalized weakness and not feeling well. Patient states she has not felt well for a couple weeks. Patient says she developed a small boil on her left suprapubic region and saw her primary care physician 2 days ago for this and was started on antibiotics apparently they did not want to nehemias it at that time because it looked like it was going to come to ahead and open up and drain on its own. Patient denies fevers or chills or sweats. She has had a slight cough for a couple weeks. Patient states she has not taken any of her diabetic medications including insulin for about 2 weeks just because she has not felt well. Patient feels dehydrated. She denies chest pain or shortness of breath. She denies abdominal pain or urinary symptoms. [facility] Medical History Abdominal panniculus, symptomatic [place] (acute kidney injury) Anxiety Arthritis Back problem Bursitis Carpal tunnel syndrome Depression Diabetes Diabetes mellitus Diabetes mellitus Excessive body weight loss Fibromyalgia Fibromyalgia Former smoker GERD (gastroesophageal reflux disease) Headache HLD (hyperlipidemia) Hypoxia Intertrigo Lumbar back pain Multiple falls Osteoarthritis Panniculitis Pneumonia due to COVID-19 virus Seasonal allergic conjunctivitis Sleep apnea ULCERS Vision problems Vitamin deficiency Home Medications ???Medication ???Instructions ???Recorded ???Last Taken ???Type gabapentin 600 mg tablet 600 mg PO TID nerve pain 03/23/21 04/06/21 History omeprazole 20 mg capsule,delayed 20 mg PO DAILY gerd 03/23/21 04/06/21 History release acidophilus-sporogenes 35 2 tab PO BID GI 04/07/21 Unknown History million-25 million cell tablet (Acidophilus Ex Str (L. sporog)) duloxetine 60 mg capsule,delayed 60 mg PO BID depression 04/07/21 Unknown History release fenofibrate micronized 67 mg 67 mg PO BID HLD 04/07/21 Unknown History capsule aspirin 81 mg tablet 81 mg PO DAILY heart health 04/19/21 Unknown History insulin lispro 100 unit/mL 20 unit (0.2 mL) subcut TIDAC 30 04/23/21 Unknown Rx subcutaneous pen (Humalog #18 mL (U-100) Insulin) cholecalciferol (vitamin D3) 1,250 1,250 mcg PO QWEEK 05/22/21 Unknown History mcg (50,000 unit) capsule diphenhydramine HCl 25 mg capsule 50 mg PO BID PRN Itching 05/22/21 Unknown History (Benadryl) levocetirizine 5 mg tablet (Xyzal) 5 mg PO QPM PRN allergies 05/22/21 Unknown History metformin 1,000 mg tablet 1,000 mg PO BID 05/22/21 Unknown History ondansetron HCl 8 mg tablet 8 mg PO Q8H PRN Nausea 05/22/21 Unknown History nabumetone 750 mg tablet 750 mg PO BID 10/23/21 Unknown History insulin glargine 100 unit/mL (3 50 - 75 units subcut BID 10/30/21 Unknown History mL) subcutaneous pen (Lantus Solostar U-100 Insulin) oxycodone-acetaminophe n 5 mg-325 1 tab PO BID PRN Pain 10/30/21 Unknown History mg tablet (Percocet) tizanidine 6 mg capsule 6 mg PO TID PRN muscle spasms 10/30/21 Unknown History metformin 500 mg tablet,extended 1,000 mg PO BID 12/07/23 Unknown History release 24 hr Allergy/AdvReac Type Severity Reaction Status Date / Time etodolac (From [facility]) Allergy Rash Verified 01/15/24 12:24 Family History Mother Arthritis Hypertension Melanoma Father Arthritis Bleeding disorder Diabetes Heart disease High cholesterol Son Kidney disease H/O psychiatric care Uncle Alcoholism Liver disease Grandmother Arthritis Cancer Lung cancer Sister Epilepsy Melanoma Skin cancer Aunt CVA (cerebral vascular accident) Surgical History H/O knee surgery History of carpal tunnel surgery History of hysterectomy Social History (Updated 01/15/24 @ 12:31 by Katherine Hull) household members: none housing: house Smoking Status: Former smoker how long ago did patient quit smoking: Quit 30 years prior. alcohol intake: current alcohol intake frequency: holidays/special occasions only substance use type: does not use ROS ROS ED Review of Systems ROS Unobtainable: other Constitutional Constitutional ED: Reports lethargy; Denies chills, fever(s), sweats or weight loss Eyes Eyes (more content not included)... Normal [facility] H AND P Exam - Hospitaliston 01-15-2024 H&P Exam - Hospitalist [facility] Medical Records Department [address] [place] [address] H P Exam - Hospitalist 01/15/24 1626 MR#: [id number] Acct: [id number] Name: NILESMARIA ISABEL Villatoro Rep #: [id number] : 1970 53 From: Cari Reeves MD PCP: Dr. Sapna Ray, DO Status:ADM [place] [facility] [place] [id number] HPI - General General Date of Admission: 01/15/24 Date of Service: 01/15/24 Chief Complaint: Fells unwell, left sided groin abscess HPI Narrative MARIA ISABEL VANN, is a 53 F with history of diabetes, GERD, fibromyalgia who presented to [facility] ED 01/15/2024 feeling unwell since this morning. Reports that she has been sick off and on and will have 3 days where she just does not want to get out of bed and has fibro flares because she has been feeling generally unwell she has not been taking her insulin. Today she was at her mom's and suddenly became lightheaded and felt like she Stumbling and mumbling prompting her to come to the ED. She endorses she has had a boil in her left groin for 2 weeks that is progressively gotten bigger more so over the past few days. Saw her PCP on Thursday and was started on Doxy but due to feeling unwell today being concerned that her glucose was elevated she presented to the ED. In the ED glucose was indeed 42 however patient not in DKA. In the ED left groin was I D and pus was expressed and sent for culture, patient placed on Unasyn and hospitalist contacted for admission. Patient reports history as above, reports she is feeling much better now. Does not think she has had any fevers, does at times get a dry cough but thinks that is from having dry mouth. Had been feeling unwell and tired and nauseous but not feeling that way at this time. Reports she had been taking her insulin she was not feeling like taking her insulin but she did take it this morning because of how she was feeling. [facility] Medical History Abdominal panniculus, symptomatic BERKLEY (acute kidney injury) Anxiety Arthritis Back problem Bursitis Carpal tunnel syndrome Depression Diabetes Diabetes mellitus Diabetes mellitus Excessive body weight loss Fibromyalgia Fibromyalgia Former smoker GERD (gastroesophageal reflux disease) Headache HLD (hyperlipidemia) Hypoxia Intertrigo Lumbar back pain Multiple falls Osteoarthritis Panniculitis Pneumonia due to COVID-19 virus Seasonal allergic conjunctivitis Sleep apnea ULCERS Vision problems Vitamin deficiency Home Medications ???Medication ???Instructions ???Recorded ???Last Taken ???Type omeprazole 20 mg capsule,delayed 20 mg PO DAILY gerd 03/23/21 04/06/21 History release duloxetine 60 mg capsule,delayed 60 mg PO BID depression 04/07/21 Unknown History release fenofibrate micronized 67 mg 67 mg PO BID HLD 04/07/21 Unknown History capsule aspirin 81 mg tablet 81 mg PO DAILY heart health 04/19/21 Unknown History insulin lispro 100 unit/mL 20 unit (0.2 mL) subcut TIDAC 04/23/21 Unknown Rx subcutaneous pen (Humalog KwikPen blood suagr 30 days #18 mL (U-100) Insulin) cholecalciferol (vitamin D3) 1,250 1,250 mcg PO QWEEK vitamin 05/22/21 Unknown History mcg (50,000 unit) capsule diphenhydramine HCl 25 mg capsule 50 mg PO BID PRN Itching 05/22/21 Unknown History (Benadryl) ondansetron HCl 8 mg tablet 8 mg PO Q8H PRN Nausea 05/22/21 Unknown History insulin glargine 100 unit/mL (3 50 - 75 units subcut BID blood 10/30/21 Unknown History mL) subcutaneous pen (Lantus sugar Solostar U-100 Insulin) metformin 500 mg tablet,extended 1,000 mg PO BID diabetes 12/07/23 Unknown History release 24 hr Allergy/AdvReac Type Severity Reaction Status Date / Time etodolac (From [facility]) Allergy Rash Verified 01/15/24 12:24 Family History Mother Arthritis Hypertension Melanoma Father Arthritis Bleeding disorder Diabetes Heart disease High cholesterol Son Kidney disease H/O psychiatric care Uncle Alcoholism Liver disease Grandmother Arthritis Cancer Lung cancer Sister Epilepsy Melanoma Skin cancer Aunt CVA (cerebral vascular accident) Surgical History H/O knee surgery History of carpal tunnel surgery History of hysterectomy Social History (Updated 01/15/24 @ 12:31 by Katherine Hull) household members: none housing: house Smoking Status: Former smoker how long ago did patient quit smoking: Quit 30 years prior. alcohol intake: current alcohol intake frequency: holidays/special occasions only substance use type: does not use ROS ROS Narrative General: Denies fever/chills HENT: Occasional headaches, denies stuffy nose, dry throat EYES: Sometimes will get blurry vision Resp: Dry cough when throat i (more content not included)... Normal [facility] Lactic Acidon 01-15-2024 Lactate [Moles/Vol] 1.3 mmol/L [facility] Comment on above: Order Comment: Y Performed By: #### L [id number], L501.6900, L100.0100, L500.2500 #### [facility] [address] [place], [address] Urinalysis, Completeon 01-14 EPI,SQUAMOUS 0-5 SEEN Normal 5-10 [facility] Comment on above: Order Comment: CLEAN CATCH Performed By: #### L 501.080 #### [facility] [address] [place], [address] RBC 0-5 SEEN Normal 0-5 [facility] Comment on above: Order Comment: CLEAN CATCH Performed By: #### L 501.080 #### [facility] [address] [place], [address] WBC 5-10 SEEN Normal 0-5 [facility] Comment on above: Order Comment: CLEAN CATCH Performed By: #### L 501.080 #### [facility] [address] [place], [address] BACTERIA 0 SEEN Normal None Seen [facility] Comment on above: Order Comment: CLEAN CATCH Performed By: #### L [id number] #### [facility] [address] [place], [address] Mucus Ql (Urine sed) 0 SEEN Normal [facility] Comment on above: Order Comment: CLEAN CATCH Performed By: #### L [id number] #### [facility] [address] [place], [address] Emergency Department Summary on 12-07-2023 Emergency Department Summary [facility] Medical Records Department [address] [place] [address] Emergency Department Summary 12/07/23 MR#: [id number] Acct: [id number] Name: MARIA ISABEL VANN Rep #: [id number] : 1970 53 From: Sav Kenyon DO PCP: Dr. Sapna Ray, DO Status:DEP ER Location: ED HPI History of Present Illness Chief Complaint: Ear Problem PFSH [facility] Medical History Abdominal panniculus, symptomatic B[place]LEY (acute kidney injury) Anxiety Arthritis Back problem Bursitis Carpal tunnel syndrome Depression Diabetes Diabetes mellitus Diabetes mellitus Excessive body weight loss Fibromyalgia Fibromyalgia Former smoker GERD (gastroesophageal reflux disease) Headache HLD (hyperlipidemia) Hypoxia Intertrigo Lumbar back pain Multiple falls Osteoarthritis Panniculitis Pneumonia due to COVID-19 virus Seasonal allergic conjunctivitis Sleep apnea ULCERS Vision problems Vitamin deficiency Home Medications ???Medication ???Instructions ???Recorded ???Last Taken ???Type gabapentin 600 mg tablet 600 mg PO TID nerve pain 03/23/21 04/06/21 History omeprazole 20 mg capsule,delayed 20 mg PO DAILY gerd 03/23/21 04/06/21 History release acidophilus-sporogenes 35 2 tab PO BID GI 04/07/21 Unknown History million-25 million cell tablet (Acidophilus Ex Str (L. sporog)) duloxetine 60 mg capsule,delayed 60 mg PO BID depression 04/07/21 Unknown History release fenofibrate micronized 67 mg 67 mg PO BID HLD 04/07/21 Unknown History capsule aspirin 81 mg tablet 81 mg PO DAILY heart health 04/19/21 Unknown History insulin lispro 100 unit/mL 20 unit (0.2 mL) subcut TIDAC 30 04/23/21 Unknown Rx subcutaneous pen (Humalog KwPen days #18 mL (U-100) Insulin) cholecalciferol (vitamin D3) 1,250 1,250 mcg PO QWEEK 05/22/21 Unknown History mcg (50,000 unit) capsule diphenhydramine HCl 25 mg capsule 50 mg PO BID PRN Itching 05/22/21 Unknown History (Benadryl) levocetirizine 5 mg tablet (Xyzal) 5 mg PO QPM PRN allergies 05/22/21 Unknown History metformin 1,000 mg tablet 1,000 mg PO BID 05/22/21 Unknown History ondansetron HCl 8 mg tablet 8 mg PO Q8H PRN Nausea 05/22/21 Unknown History nabumetone 750 mg tablet 750 mg PO BID 10/23/21 Unknown History insulin glargine 100 unit/mL (3 50 - 75 units subcut BID 10/30/21 Unknown History mL) subcutaneous pen (Lantus Solostar U-100 Insulin) oxycodone-acetaminophe n 5 mg-325 1 tab PO BID PRN Pain 10/30/21 Unknown History mg tablet (Percocet) tizanidine 6 mg capsule 6 mg PO TID PRN muscle spasms 10/30/21 Unknown History metformin 500 mg tablet,extended 1,000 mg PO BID 12/07/23 Unknown History release 24 hr Allergy/AdvReac Type Severity Reaction Status Date / Time etodolac (From [facility]) Allergy Rash Verified 12/07/23 19:02 Family History Mother Arthritis Hypertension Melanoma Father Arthritis Bleeding disorder Diabetes Heart disease High cholesterol Son Kidney disease H/O psychiatric care Uncle Alcoholism Liver disease Grandmother Arthritis Cancer Lung cancer Sister Epilepsy Melanoma Skin cancer Aunt CVA (cerebral vascular accident) Surgical History H/O knee surgery History of carpal tunnel surgery History of hysterectomy Social History household members: none Smoking Status: Former smoker how long ago did patient quit smoking: Quit 30 years prior. alcohol intake: current alcohol intake frequency: holidays/special occasions only substance use type: does not use EXAM Physical Exam Const Vital Signs: 12/07/23 19:02 12/07/23 23:29 Temperature 96.9 F L 98 F Temperature Source Temporal Pulse Rate 124 H 89 Respiratory Rate 18 17 Blood Pressure 113/89 H 121/74 H Blood Pressure Mean 97 89 Pulse Ox 97 99 Oxygen Delivery Method Room Air MDM MDM MDM Narrative Medical decision making narrative: HISTORY OF PRESENT ILLNESS: 53 F here with concern for foreign body in ear. Noted buzzing 2 weeks ago. Noted her mother looked in her ear tonight and noticed movement. REVIEW OF SYSTEMS: Pertinent positives: Ear foreign body Pertinent negatives: Sore throat PHYSICAL EXAM: Nursing triage notes reviewed, Vital signs reviewed Constitutional: please see mdm HENT: MMM Skin: No rash or lesions noted MEDICAL DECISION MAKING: Chief Complaint: Ear foreign body Factors affecting care: Type 2 diabetes, fibromyalgia, hyperlipidemia MDM Narrative: 53-year-old female presents with concern for foreign body in right ear. Exam without foreign body. Right ear was irrigated w (more content not included)... Normal [facility] Absolute lymphocyte counton 03-30-2022 Lymphocytes Auto (Unsp spec) [#/Vol] 2.23 10*3/uL 0.83-4.51 [facility] Work Phone: Basophil percentageon 2021 Basophil percentage 0-5 SEEN /hpf 0-5 [facility] Work Phone: [phone] Basophils/100 WBC (Bld) 0.8 % 0-1 [facility] Work Phone: Bilirubin [Mass/Vol] 0.40 mg/dL 0.20-1.00 [facility] Work Phone: Comment on above: For patients on eltr ombopag therapy, use of Dimension [place]ma TBIL is not recommended. Chloride [Moles/Vol] 101 mmol/L 98-107 [facility] Work Phone: Eosinophils/100 WBC (Bld) 2.5 % 0-5 [facility] Work Phone: Glucose [Mass/Vol] 280 mg/dL 74-106 [facility] Work Phone: Comment on above: Glucose result great er than or equal to 200 mg/dLsuggests DIABETES MELLITUS per A.D.A. criteria. Neutrophils (Bld) [#/Vol] 4.9 10*3/uL 2.0-7.7 [facility] Work Phone: Neutrophils/100 WBC (Bld) 58.2 % 47-70 [facility] Work Phone: Potassium [Moles/Vol] 4.7 mmol/L 3.5-5.1 [facility] Work Phone: Protein [Mass/Vol] 6.5 g/dL 6.4-8.2 [facility] Work Phone: Sodium [Moles/Vol] 132 mmol/L 136-145 [facility] Work Phone: WBC (Bld) [#/Vol] 8.4 10*3/uL 4.4-11.0 [facility] Work Phone: Bilirubin Test strip Ql (U)o n 03-30-2022 Bilirubin Ql (U) 3 mg/dL Negative [facility] Work Phone: Comment on above: COLOR OF URINE MAY A FFECT DIPSTICK RESULTS. Blood erythrocytes count (nu mber/volume)on 03-30-2022 RBC (Bld) [#/Vol] 3.94 10*6/uL 4.2-5.4 [facility] Work Phone: Blood hemoglobin measurement (mass/volume)on 03-30-2022 Hemoglobin (Bld) [Mass/Vol] 11.3 g/dL 12.0-15.0 [facility] Work Phone: Blood lymphocytes/100 leukoc yteson 03-30-2022 Lymphocytes/100 WBC (Bld) 26.6 % 19-41 [facility] Work Phone: Blood monocytes/100 leukocyt eson 03-30-2022 Monocytes/100 WBC (Bld) 10.4 % 0-10 [facility] Work Phone: Blood platelet mean volumeon 03-30-2022 Platelet mean volume (Bld) [Entitic vol] 10.4 fL 6.2-12.0 [facility] Work Phone: Determination of erythrocyte mean corpuscular volume (MCV)on 03-30-2022 MCV (RBC) [Entitic vol] 89.3 fL 81-99 [facility] Work Phone: Hematocrit Auto (Bld) [Volum e fraction]on 03-30-2022 Hematocrit (Bld) [Volume fraction] 35.2 % 37-47 [facility] Work Phone: Hyaline casts LM.LPF (Urine sed) [#/Area]on 03-30-2022 Hyaline casts (Urine sed) [#/Area] 0 /[LPF] 0-5 [facility] Work Phone: Ketones Test strip Ql (U)on 03-30-2022 Ketones Ql (U) 5 mg/dl Negative [facility] Work Phone: Laboratory - Chemistry and C hemistry - challengeon 03-30-2022 ALP [Catalytic activity/Vol] 70 U/L 45-117 [facility] Work Phone: ALT [Catalytic activity/Vol] 32 U/L 13-56 [facility] Work Phone: CO2 [Moles/Vol] 22.0 mmol/L 21.0-32.0 [facility] Work Phone: Globulin (S) [Mass/Vol] 3.5 g/dL 2.2-4.2 [facility] Work Phone: Urea nitrogen/Creatinine [Mass ratio] 30.4 mg/mg 10-20 [facility] Work Phone: Laboratory - Hematology and Cell countson 03-30-2022 Erythrocyte distribution width (RBC) [Entitic vol] 43.4 fL 35.1-43.9 [facility] Work Phone: Erythrocyte distribution width (RBC) [Ratio] 13.3 % 11.6-14.6 [facility] Work Phone: Immature granulocytes/100 WBC (Bld) 1.500 % 0.0-0.9 [facility] Work Phone: Comment on above: IG% - Immature Granu locytes (promyelocytes, myelocytes and metamyelocytes) > 1% indicates that a LEFT SHIFT is Present. MCH (RBC) [Entitic mass] 28.7 pg 27.0-32.0 [facility] Work Phone: Nucleated RBC/100 WBC (Bld) [Ratio] 0 % 0-5 [facility] Work Phone: MCHC Auto (RBC) [Mass/Vol]on 03-30-2022 MCHC (RBC) [Mass/Vol] 32.1 g/dL 32-36 [facility] Work Phone: Mucus LM Ql (Urine sed)on Mucus Ql (Urine sed) 1+ /hpf [facility] Work Phone: Nitrite Test strip Ql (U)on 03-30-2022 Nitrite Ql (U) Negative Negative [facility] Work Phone: No Panel Informationon 03-30 Estimated Creatinine Clearance Calc 36.05 ml/min [facility] Work Phone: Estimated GFR (MDRD) Amer 41 mL/min >60 [facility] Work Phone: Comment on above: GFR Calc Estimated GFR (MDRD) Non-Af Amer 34 mL/min >60 [facility] Work Phone: Comment on above: Non- GFR Calc Platelets bldon 03-30-2022 Platelets (Bld) [#/Vol] 253 10*3/uL 150-450 [facility] Work Phone: Protein Test strip Ql (U)on 03-30-2022 Protein Ql (U) 30 mg/dl Negative [facility] Work Phone: Serum or plasma albumin cherelle urement (mass/volume)on 03-30-2022 Albumin [Mass/Vol] 3.0 g/dL 3.2-5.0 [facility] Work Phone: Serum or plasma albumin/glob ulin mass ratioon 03-30-2022 Albumin/Globulin [Mass ratio] 0.9 {ratio} 0.9-2.4 [facility] Work Phone: Serum or plasma calcium cherelle urement (mass/volume)on 03-30-2022 Calcium [Mass/Vol] 9.3 mg/dL 8.5-10.1 [facility] Work Phone: Serum or plasma creatinine m easurement (mass/volume)on 03-30-2022 Creatinine [Mass/Vol] 1.68 mg/dL 0.55-1.02 [facility] Work Phone: Comment on above: The validity of the calculated GFR & GFRAA in patients over 70 years has not been determined. Clinical correlation is essential. Serum or plasma urea nitroge n measurement (mass/volume)on 03-30-2022 Urea nitrogen [Mass/Vol] 51 mg/dL 7-18 [facility] Work Phone: Squamous epithelial cells de tection in urine sediment by light microscopyon 03-30-2022 Epithelial cells.squamous LM Ql (Urine sed) 0-5 SEEN /hpf 5-10 [facility] Work Phone: Thin prep Papanicolaou smear with manual screeningon 03-30-2022 Thin prep Papanicolaou smear with manual screening 22 U/L 15-37 [facility] Work Phone: Thin prep Papanicolaou smear with manual screening 9 5-15 [facility] Work Phone: Urine blood detectionon 03-07 RBC Ql (U) Negative Negative [facility] Work Phone: RBC Ql (U) 0 SEEN /hpf 0-5 [facility] Work Phone: Urine clarityon 03-30-2022 Clarity (U) Clear Clear [facility] Work Phone: Urine color determinationon 03-30-2022 Color (U) Yellow Yellow [facility] Work Phone: Urine glucose detectionon Glucose Ql (U) 100 mg/dl Normal [facility] Work Phone: Urine leukocyte esterase det ection by dipstickon 03-30-2022 Leukocyte esterase Test strip Ql (U) 25 /ul Negative [facility] Work Phone: Urine pHon 03-30-2022 pH (U) 5.0 [pH] 5.0 - 8.0 [facility] Work Phone: Urine sediment bacteria coun t by microscopy (number/high power field)on 03-30-2022 Bacteria LM.HPF (Urine sed) [#/Area] 1 /[HPF] None Seen [facility] Work Phone: Urine specific gravity measu rementon 03-30-2022 Specific gravity (U) [Rel density] 1.020 1.002-1.030 [facility] Work Phone: Urobilinogen Auto test strip Ql (U)on 03-30-2022 Urobilinogen Ql (U) 4 mg/dl [facility] Work Phone: Absolute lymphocyte counton 10-30-2021 Lymphocytes Auto (Unsp spec) [#/Vol] 2.85 10*3/uL 0.83-4.51 [facility] Work Phone: Basophil percentageon 2021 Basophil percentage 0-5 SEEN /hpf 0-5 [facility] Work Phone: Basophils/100 WBC (Bld) 0.3 % 0-1 [facility] Work Phone: Bilirubin [Mass/Vol] 0.50 mg/dL 0.20-1.00 [facility] Work Phone: Comment on above: For patients on eltr ombopag therapy, use of Dimension [place] TBIL is not recommended. Chloride [Moles/Vol] 105 mmol/L 98-107 [facility] Work Phone: Eosinophils/100 WBC (Bld) 1.9 % 0-5 [facility] Work Phone: Glucose [Mass/Vol] 199 mg/dL 74-106 [facility] Work Phone: Comment on above: Fasting Glucose resu lt greater than or equal to 126 mg/dL suggests DIABETES MELLITUS per A.D.A. criteria. Neutrophils (Bld) [#/Vol] 3.9 10*3/uL 2.0-7.7 [facility] Work Phone: Neutrophils/100 WBC (Bld) 51.0 % 47-70 [facility] Work Phone: Potassium [Moles/Vol] 4.1 mmol/L 3.5-5.1 [facility] Work Phone: Protein [Mass/Vol] 6.8 g/dL 6.4-8.2 [facility] Work Phone: Sodium [Moles/Vol] 138 mmol/L 136-145 [facility] Work Phone: WBC (Bld) [#/Vol] 7.7 10*3/uL 4.4-11.0 [facility] Work Phone: Bilirubin Test strip Ql (U)o n 10-30-2021 Bilirubin Ql (U) Negative Negative [facility] Work Phone: Blood erythrocytes count (nu mber/volume)on 10-30-2021 RBC (Bld) [#/Vol] 3.94 10*6/uL 4.2-5.4 [facility] Work Phone: Blood hemoglobin measurement (mass/volume)on 10-30-2021 Hemoglobin (Bld) [Mass/Vol] 11.6 g/dL 12.0-15.0 [facility] Work Phone: Blood lymphocytes/100 leukoc yteson 10-30-2021 Lymphocytes/100 WBC (Bld) 36.9 % 19-41 [facility] Work Phone: Blood monocytes/100 leukocyt eson 10-30-2021 Monocytes/100 WBC (Bld) 9.1 % 0-10 [facility] Work Phone: Blood platelet mean volumeon 10-30-2021 Platelet mean volume (Bld) [Entitic vol] 9.5 fL 6.2-12.0 [facility] Work Phone: Determination of erythrocyte mean corpuscular volume (MCV)on 10-30-2021 MCV (RBC) [Entitic vol] 88.3 fL 81-99 [facility] Work Phone: Glucose Glucometer (BldC) [M ass/Vol]on 10-30-2021 Glucose [Mass/Vol] 203 mg/dL 74-106 [facility] Work Phone: Comment on above: MANAGEMENT OF PATIEN T CARE PER NURSING PROTOCOL Hematocrit Auto (Bld) [Volum e fraction]on 10-30-2021 Hematocrit (Bld) [Volume fraction] 34.8 % 37-47 [facility] Work Phone: Ketones Test strip Ql (U)on 10-30-2021 Ketones Ql (U) 5 mg/dl Negative [facility] Work Phone: Laboratory - Chemistry and C hemistry - challengeon 10-30-2021 ALP [Catalytic activity/Vol] 44 U/L 45-117 [facility] Work Phone: ALT [Catalytic activity/Vol] 25 U/L 13-56 [facility] Work Phone: CO2 [Moles/Vol] 26.0 mmol/L 21.0-32.0 [facility] Work Phone: Globulin (S) [Mass/Vol] 3.3 g/dL 2.2-4.2 [facility] Work Phone: Urea nitrogen/Creatinine [Mass ratio] 24.1 mg/mg 10-20 [facility] Work Phone: Laboratory - Hematology and Cell countson 10-30-2021 Erythrocyte distribution width (RBC) [Entitic vol] 43.0 fL 35.1-43.9 [facility] Work Phone: Erythrocyte distribution width (RBC) [Ratio] 13.4 % 11.6-14.6 [facility] Work Phone: Immature granulocytes/100 WBC (Bld) 0.800 % 0.0-0.9 [facility] Work Phone: Comment on above: IG% - Immature Granu locytes (promyelocytes, myelocytes and metamyelocytes) > 1% indicates that a LEFT SHIFT is Present. MCH (RBC) [Entitic mass] 29.4 pg 27.0-32.0 [facility] Work Phone: Nucleated RBC/100 WBC (Bld) [Ratio] 0 % 0-5 [facility] Work Phone: MCHC Auto (RBC) [Mass/Vol]on 10-30-2021 MCHC (RBC) [Mass/Vol] 33.3 g/dL 32-36 [facility] Work Phone: Mucus LM Ql (Urine sed)on Mucus Ql (Urine sed) 0 SEEN /hpf [facility] Work Phone: Nitrite Test strip Ql (U)on 10-30-2021 Nitrite Ql (U) Negative Negative [facility] Work Phone: No Panel Informationon 10-30 Estimated Creatinine Clearance Calc 44.21 ml/min [facility] Work Phone: Estimated GFR (MDRD) Amer 52 mL/min >60 [facility] Work Phone: Comment on above: GFR Calc Estimated GFR (MDRD) Non-Af Amer 43 mL/min >60 [facility] Work Phone: Comment on above: Non- GFR Calc Platelets bldon 10-30-2021 Platelets (Bld) [#/Vol] 244 10*3/uL 150-450 [facility] Work Phone: Protein Test strip Ql (U)on 10-30-2021 Protein Ql (U) 30 mg/dl Negative [facility] Work Phone: Serum or plasma albumin cherelle urement (mass/volume)on 10-30-2021 Albumin [Mass/Vol] 3.5 g/dL 3.2-5.0 [facility] Work Phone: Serum or plasma albumin/glob ulin mass ratioon 10-30-2021 Albumin/Globulin [Mass ratio] 1.1 {ratio} 0.9-2.4 [facility] Work Phone: Serum or plasma calcium cherelle urement (mass/volume)on 10-30-2021 Calcium [Mass/Vol] 9.3 mg/dL 8.5-10.1 [facility] Work Phone: Serum or plasma creatinine m easurement (mass/volume)on 10-30-2021 Creatinine [Mass/Vol] 1.37 mg/dL 0.55-1.02 [facility] [facility] Work Phone: Comment on above: The validity of the calculated GFR & GFRAA in patients over 70 years has not been determined. Clinical correlation is essential. Serum or plasma urea nitroge n measurement (mass/volume)on 10-30-2021 Urea nitrogen [Mass/Vol] 33 mg/dL 7-18 [facility] Work Phone: Squamous epithelial cells de tection in urine sediment by light microscopyon 10-30-2021 Epithelial cells.squamous LM Ql (Urine sed) 0-5 SEEN /hpf 5-10 [facility] Work Phone: Thin prep Papanicolaou smear with manual screeningon 10-30-2021 Thin prep Papanicolaou smear with manual screening 15 U/L 15-37 [facility] Work Phone: Thin prep Papanicolaou smear with manual screening 7 5-15 [facility] Work Phone: Urine blood detectionon 10-05 RBC Ql (U) Negative Negative [facility] Work Phone: RBC Ql (U) 0 SEEN /hpf 0-5 [facility] Work Phone: Urine clarityon 10-30-2021 Clarity (U) Sl. Cloudy Clear [facility] Work Phone: Urine color determinationon 10-30-2021 Color (U) Yellow Yellow [facility] Work Phone: Urine glucose detectionon Glucose Ql (U) 50 mg/dl Normal [facility] Work Phone: Urine leukocyte esterase det ection by dipstickon 10-30-2021 Leukocyte esterase Test strip Ql (U) 25 /ul Negative [facility] Work Phone: Urine pHon 10-30-2021 pH (U) 6.0 [pH] 5.0 - 8.0 [facility] Work Phone: Urine sediment bacteria coun t by microscopy (number/high power field)on 10-30-2021 Bacteria LM.HPF (Urine sed) [#/Area] 1 /[HPF] None Seen [facility] Work Phone: Urine specific gravity measu rementon 10-30-2021 Specific gravity (U) [Rel density] 1.020 1.002-1.030 [facility] Work Phone: Urobilinogen Auto test strip Ql (U)on 10-30-2021 Urobilinogen Ql (U) Normal mg/dl Normal [facility] Work Phone: Absolute lymphocyte counton 09-18-2021 Lymphocytes Auto (Unsp spec) [#/Vol] 2.61 10*3/uL 0.83-4.51 [facility] Work Phone: Basophil percentageon 2021 Basophils/100 WBC (Bld) 0.5 % 0-1 [facility] Work Phone: Bilirubin [Mass/Vol] 0.30 mg/dL 0.20-1.00 [facility] Work Phone: [phone] Comment on above: For patients on eltr ombopag therapy, use of Dimension [place] TBIL is not recommended. Chloride [Moles/Vol] 107 mmol/L 98-107 [facility] Work Phone: Eosinophils/100 WBC (Bld) 2.0 % 0-5 [facility] Work Phone: [phone] Glucose [Mass/Vol] 86 mg/dL 74-106 [facility] Work Phone: Neutrophils (Bld) [#/Vol] 5.1 10*3/uL 2.0-7.7 [facility] Work Phone: [phone] Neutrophils/100 WBC (Bld) 57.4 % 47-70 [facility] Work Phone: Potassium [Moles/Vol] 4.6 mmol/L 3.5-5.1 [facility] Work Phone: Protein [Mass/Vol] 7.3 g/dL 6.4-8.2 [facility] Work Phone: Sodium [Moles/Vol] 140 mmol/L 136-145 [facility] Work Phone: WBC (Bld) [#/Vol] 8.8 10*3/uL 4.4-11.0 [facility] Work Phone: Blood erythrocytes count (nu mber/volume)on 09-18-2021 RBC (Bld) [#/Vol] 4.36 10*6/uL 4.2-5.4 [facility] Blood hemoglobin measurement (mass/volume)on 09-18-2021 Hemoglobin (Bld) [Mass/Vol] 12.9 g/dL 12.0-15.0 [facility] Work Phone: [phone] Blood lymphocytes/100 leukoc yteson 09-18-2021 Lymphocytes/100 WBC (Bld) 29.6 % 19-41 [facility] Work Phone: Blood monocytes/100 leukocyt eson 09-18-2021 Monocytes/100 WBC (Bld) 10.0 % 0-10 [facility] Work Phone: Blood platelet mean volumeon 09-18-2021 Platelet mean volume (Bld) [Entitic vol] 9.6 fL 6.2-12.0 [facility] Work Phone: Determination of erythrocyte mean corpuscular volume (MCV)on 09-18-2021 MCV (RBC) [Entitic vol] 87.8 fL 81-99 [facility] Work Phone: Erythrocyte sedimentation ra conrado 09-18-2021 ESR (Bld) [Velocity] 28 mm/h 0-30 [facility]: Hematocrit Auto (Bld) [Volum e fraction]on 09-18-2021 Hematocrit (Bld) [Volume fraction] 38.3 % 37-47 [facility] Work Phone: Laboratory - Chemistry and C hemistry - challengeon 09-18-2021 ALP [Catalytic activity/Vol] 45 U/L 45-117 [facility] Work Phone: ALT [Catalytic activity/Vol] 29 U/L 13-56 [facility] Work Phone: CO2 [Moles/Vol] 24.0 mmol/L 21.0-32.0 [facility] Work Phone: Globulin (S) [Mass/Vol] 3.8 g/dL 2.2-4.2 [facility] Work Phone: Urea nitrogen/Creatinine [Mass ratio] 38.5 mg/mg 10-20 [facility] Work Phone: Laboratory - Hematology and Cell countson 09-18-2021 Erythrocyte distribution width (RBC) [Entitic vol] 42.5 fL 35.1-43.9 [facility] Work Phone: Erythrocyte distribution width (RBC) [Ratio] 13.2 % 11.6-14.6 [facility] Work Phone: Immature granulocytes/100 WBC (Bld) 0.500 % 0.0-0.9 [facility] Work Phone: Comment on above: IG% - Immature Granu locytes (promyelocytes, myelocytes and metamyelocytes) > 1% indicates that a LEFT SHIFT is Present. MCH (RBC) [Entitic mass] 29.6 pg 27.0-32.0 [facility] Work Phone: Nucleated RBC/100 WBC (Bld) [Ratio] 0 % 0-5 [facility] Work Phone: MCHC Auto (RBC) [Mass/Vol]on 09-18-2021 MCHC (RBC) [Mass/Vol] 33.7 g/dL 32-36 [facility] Work Phone: No Panel Informationon 09-18 Estimated GFR (MDRD) Amer 79 mL/min >60 [facility] Work Phone: Comment on above: GFR Calc Estimated GFR (MDRD) Non-Af Amer 65 mL/min >60 [facility] Work Phone: Comment on above: Non- GFR Calc Platelets bldon 09-18-2021 Platelets (Bld) [#/Vol] 265 10*3/uL 150-450 [facility] Work Phone: Serum or plasma C reactive p rotein measurement (mass/volume)on 09-18-2021 CRP [Mass/Vol] 3.35 mg/L 0.0-3.0 [facility] Work Phone: Comment on above: C-Reactive Protein ( CRP) provides useful information for thediagnosis, therapy and monitoring of inflammatory processesand associated diseases. For the evaluation of Relative Riskfor Cardiovascular Disease, a High Sensitivity CRP (HSCRP)should be ordered. Serum or plasma albumin cherelle urement (mass/volume)on 09-18-2021 Albumin [Mass/Vol] 3.5 g/dL 3.2-5.0 [facility] Work Phone: Serum or plasma albumin/glob ulin mass ratioon 09-18-2021 Albumin/Globulin [Mass ratio] 0.9 {ratio} 0.9-2.4 [facility] Work Phone: Serum or plasma calcium cherelle urement (mass/volume)on 09-18-2021 Calcium [Mass/Vol] 9.9 mg/dL 8.5-10.1 [facility] Work Phone: Serum or plasma creatinine m easurement (mass/volume)on 09-18-2021 Creatinine [Mass/Vol] 0.96 mg/dL 0.55-1.02 [facility] Work Phone: Comment on above: The validity of the calculated GFR & GFRAA in patients over 70 years has not been determined. Clinical correlation is essential. Serum or plasma urea nitroge n measurement (mass/volume)on 09-18-2021 Urea nitrogen [Mass/Vol] 37 mg/dL 7-18 [facility] Work Phone: Serum or plasma uric acid me asurement (mass/volume)on 09-18-2021 Urate [Mass/Vol] 5.0 mg/dL 2.6-6.0 [facility] Work Phone: Comment on above: The drugs N-Acetylcy steine and Metamizole may falsely depress this assay. Thin prep Papanicolaou smear with manual screeningon 09-18-2021 Thin prep Papanicolaou smear with manual screening 17 U/L 15-37 [facility] Work Phone: Thin prep Papanicolaou smear with manual screening 9 5-15 [facility] Work Phone: Thin prep Papanicolaou smear with manual screening 172 U/L 84-246 [facility] Work Phone: Glucose Glucometer (BldC) [M ass/Vol]on 09-05-2021 Glucose [Mass/Vol] 201 mg/dL 74-106 [facility] Work Phone: Comment on above: MANAGEMENT OF PATIEN T CARE PER NURSING PROTOCOL No Panel Informationon 08-29 Radiology Study observation (narrative) [facility] XR Knee - right 4 Viewson IMPRESSION: No acute cardiopulmonary disease identified. No left-sided rib fractures. Osteoarthrosis of the right knee. [employer]: PSC[facility] Transcribe Date/Time: Aug 29 2021 12:33P Dictated by : CLARISSA CASTREJON MD This examination was interpreted and the report reviewed and electronically signed by: CLARISSA CASTREJON MD on Aug 29 2021 12:35PM EST ZZZ_DO_NOT_ USE_DIVISIO N OF RADIOLOGY * * *Final Report* * [...] Intra-articular bodies in the posterior joint space. ZZZ_DO_NOT_ USE_DIVISIO N OF RADIOLOGY Provider, [facility] - 08/29/2021 * * *Final Report* * [...] rib fractures. Osteoarthrosis of the right knee. [facility] [facility] Transcribe Date/Time: Aug 29 2021 12:33P Dictated by : CLARISSA CASTREJON MD This examination was interpreted and the report reviewed and electronically signed by: CLARISSA CASTREJON MD on Aug 29 2021 12:35PM [facility] XR Ribs - left Views and [facility] 08-29-2021 IMPRESSION: No acute cardiopulmonary disease identified. No left-sided rib fractures. Osteoarthrosis of the right knee. [employer]: PSCB Transcribe Date/Time: Aug 29 2021 12:33P Dictated by : CLARISSA CASTREJON MD This examination was interpreted and the report reviewed and electronically signed by: CLARISSA CASTREJON MD on Aug 29 2021 12:35PM EST ZZZ_DO_NOT_ USE_DIVISIO N OF RADIOLOGY * * *Final Report* * [...] Intra-articular bodies in the posterior joint space. ZZZ_DO_NOT_ USE_DIVISIO N OF RADIOLOGY Provider, [facility] - 08/29/2021 * * *Final Report* * [...] rib fractures. Osteoarthrosis of the right knee. [employer]: MALINDA Transcribe Date/Time: Aug 29 2021 12:33P Dictated by : CLARISSA CASTREJON MD This examination was interpreted and the report reviewed and electronically signed by: CLARISSA CASTREJON MD on Aug 29 2021 12:35PM EST [facility] XR Ribs - left Views and Kate st PAOrdered By: Ccf Provider on 08-29-2021 [facility] Absolute lymphocyte counton 04-23-2021 Lymphocytes Auto (Unsp spec) [#/Vol] 0.79 10*3/uL 0.83-4.51 [facility] Work Phone: Basophil percentageon 2021 Basophils/100 WBC (Bld) 0.0 % 0-1 [facility] Work Phone: Chloride [Moles/Vol] 98 mmol/L 98-107 [facility] Work Phone: Eosinophils/100 WBC (Bld) 0.0 % 0-5 [facility] Work Phone: Glucose [Mass/Vol] 352 mg/dL 74-106 [facility] Work Phone: Comment on above: Glucose result great er than or equal to 200 mg/dLsuggests DIABETES MELLITUS per A.D.A. criteria. Neutrophils (Bld) [#/Vol] 5.2 10*3/uL 2.0-7.7 [facility] Work Phone: Neutrophils/100 WBC (Bld) 82.6 % 47-70 [facility] Work Phone: Potassium [Moles/Vol] 4.2 mmol/L 3.5-5.1 [facility] Work Phone: Sodium [Moles/Vol] 134 mmol/L 136-145 [facility] Work Phone: WBC (Bld) [#/Vol] 6.3 10*3/uL 4.4-11.0 [facility] Work Phone: Blood erythrocytes count (nu mber/volume)on 04-23-2021 RBC (Bld) [#/Vol] 4.53 10*6/uL 4.2-5.4 [facility]: Blood hemoglobin measurement (mass/volume)on 04-23-2021 Hemoglobin (Bld) [Mass/Vol] 12.5 g/dL 12.0-15.0 [facility] Work Phone: [phone] Blood lymphocytes/100 leukoc yteson 04-23-2021 Lymphocytes/100 WBC (Bld) 12.6 % 19-41 [facility] Work Phone: Blood monocytes/100 leukocyt eson 04-23-2021 Monocytes/100 WBC (Bld) 4.0 % 0-10 [facility] Work Phone: Blood platelet mean volumeon 04-23-2021 Platelet mean volume (Bld) [Entitic vol] 9.6 fL 6.2-12.0 [facility] Work Phone: Determination of erythrocyte mean corpuscular volume (MCV)on 04-23-2021 MCV (RBC) [Entitic vol] 85.2 fL 81-99 [facility] Work Phone: Glucose Glucometer (BldC) [M ass/Vol]on 04-23-2021 Glucose [Mass/Vol] 330 mg/dL 70-110 [facility] Work Phone: Comment on above: MANAGEMENT OF PATIEN T CARE PER NURSING PROTOCOL Hematocrit Auto (Bld) [Volum e fraction]on 04-23-2021 Hematocrit (Bld) [Volume fraction] 38.6 % 37-47 [facility] Work Phone: Laboratory - Chemistry and C hemistry - challengeon 04-23-2021 CO2 [Moles/Vol] 28.0 mmol/L 21.0-32.0 [facility] Work Phone: Urea nitrogen/Creatinine [Mass ratio] 44.7 mg/mg 10-20 [facility] Work Phone: Laboratory - Hematology and Cell countson 04-23-2021 Erythrocyte distribution width (RBC) [Entitic vol] 44.5 fL 35.1-43.9 [facility] Work Phone: Erythrocyte distribution width (RBC) [Ratio] 14.3 % 11.6-14.6 [facility] Work Phone: Immature granulocytes/100 WBC (Bld) 0.800 % 0.0-0.9 [facility] Work Phone: Comment on above: IG% - Immature Granu locytes (promyelocytes, myelocytes and metamyelocytes) > 1% indicates that a LEFT SHIFT is Present. MCH (RBC) [Entitic mass] 27.6 pg 27.0-32.0 [facility] Work Phone: Nucleated RBC/100 WBC (Bld) [Ratio] 0 % 0-5 [facility] Work Phone: MCHC Auto (RBC) [Mass/Vol]on 04-23-2021 MCHC (RBC) [Mass/Vol] 32.4 g/dL 32-36 [facility] Work Phone: No Panel Informationon 04-23 Estimated Creatinine Clearance Calc 97.20 ml/min [facility] Work Phone: Estimated GFR (MDRD) Amer 129 mL/min >60 [facility] Work Phone: Comment on above: GFR Calc Estimated GFR (MDRD) Non-Af Amer 107 mL/min >60 [facility] Work Phone: Comment on above: Non- GFR Calc Platelets bldon 04-23-2021 Platelets (Bld) [#/Vol] 241 10*3/uL 150-450 [facility] Work Phone: Serum or plasma calcium cherelle urement (mass/volume)on 04-23-2021 Calcium [Mass/Vol] 9.5 mg/dL 8.5-10.1 [facility] Work Phone: Serum or plasma creatinine m easurement (mass/volume)on 04-23-2021 Creatinine [Mass/Vol] 0.63 mg/dL 0.55-1.02 [facility] Work Phone: Comment on above: The validity of the calculated GFR & GFRAA in patients over 70 years has not been determined. Clinical correlation is essential. Serum or plasma urea nitroge n measurement (mass/volume)on 04-23-2021 Urea nitrogen [Mass/Vol] 28 mg/dL 7-18 [facility] Work Phone: Thin prep Papanicolaou smear with manual screeningon 04-23-2021 Thin prep Papanicolaou smear with manual screening 8 5-15 [facility] Work Phone: Basophil percentageon 2021 Bilirubin [Mass/Vol] 0.40 mg/dL 0.20-1.00 [facility] Work Phone: Comment on above: For patients on eltr ombopag therapy, use of Dimension [place] TBIL is not recommended. Protein [Mass/Vol] 7.0 g/dL 6.4-8.2 [facility] Work Phone: Direct bilirubinon 2 Bilirubin.direct [Mass/Vol] 0.09 mg/dL 0.00-0.30 [facility] Work Phone: Laboratory - Chemistry and C hemistry - challengeon 04-22-2021 ALP [Catalytic activity/Vol] 67 U/L 45-117 [facility] Work Phone: ALT [Catalytic activity/Vol] 19 U/L 13-56 [facility] Work Phone: Globulin (S) [Mass/Vol] 4.1 g/dL 2.2-4.2 [facility] Work Phone: Magnesium [Mass/Vol] 2.0 mg/dL 1.6-2.6 [facility] Work Phone: Serum or plasma albumin cherelle urement (mass/volume)on 04-22-2021 Albumin [Mass/Vol] 2.9 g/dL 3.2-5.0 [facility] Work Phone: Thin prep Papanicolaou smear with manual screeningon 04-22-2021 Thin prep Papanicolaou smear with manual screening 9 U/L 15-37 [facility] Work Phone: Basophil percentageon 2021 Basophil percentage Not Reportable [facility] Work Phone: Laboratory - Chemistry and C hemistry - challengeon 04-20-2021 Natriuretic peptide B (Bld) [Mass/Vol] 72.8 pg/mL 0-100 [facility] Work Phone: Free T4 [Mass/Vol] 1.21 ng/dL 0.76-1.46 [facility] Work Phone: Laboratory - Microbiology an d Antimicrobial susceptibilityon 04-20-2021 SARS-CoV-2 (COVID-19) RNA RUTH+probe Ql (Unsp spec) Not detected Not Detect [facility] Work Phone: Comment on above: Normal Reference Ran ge: Not DetectedMethod:(RT-PCR) real-time reverse transcriptase PCRLuminex DICK Instrument*The Food and Drug Administration (FDA) has issued an Emergency Use Authorization (EAU) for the DICK SARS-CoV-2 Assay for the rapid detection of the virus that causes COVID-19. This test has been validated, but the FDAs independent review of this validation is pending.*Negative results do not preclude infection and should not be used as the sole basis for treatment or patient management. Optimum specimen types and timing for peak viral levels during infections caused by SARS-CoV-2 have not been determined. Collection of multiple specimens from the same patient may be necessary to detect the virus. The possibility of a false negative result should be considered if the patient has clinical presentation or has had recent exposure. No Panel Informationon 04-20 Anti-Nuclear Antibody Screen Negative Negative [facility] Work Phone: Comment on above: Performed at: [address] [id number] Director: Tarik Whitley PhD, Phone: [phone] [employer] B Antibody Not Reportable [facility] Work Phone: ANNEALING OPERATOR Antibody Not Reportable [facility] Work Phone: Thyroid Stimulating Hormone (TSH) 0.58 uIU/mL 0.358-3.74 [facility] Work Phone: Troponin I High Sensitivity 10 pg/mL 3.0-54.0 [facility] Work Phone: Comment on above: Please Note: [place] t Units and Gender Specific Reference Ranges. For more information see Policy Stat Procedure [place] High Sensitivity Troponin (TNIH) and attachments. Serum DNA double strand anti body assay (units/volume)on 04-20-2021 DNA double strand Ab Qn (S) Not Reportable [facility] Work Phone: Serum Patti-1 antibody assay (u nits/volume)on 04-20-2021 Patti-1 extractable nuclear Ab Qn (S) Not Reportable [facility] Work Phone: Serum Scl-70 extractable nuc lear antibody assay (units/volume)on 04-20-2021 SCL-70 extractable nuclear Ab Qn (S) Not Reportable [facility] Work Phone: Serum Rouse extractable nucl ear antibody detectionon 04-20-2021 Rouse extractable nuclear Ab Ql (S) Not Reportable [facility] Work Phone: Serum cyclic citrullinated p eptide IgG antibody assay (units/volume)on 04-20-2021 Cyclic citrullinated peptide IgG Qn 6 units [facility] Work Phone: Comment on above: Negative <20 Weak po sitive 20 - 39 Moderate positive 40 - 59 Strong positive >59Performed at: [id number] [place], [place] [id number] Director: Castro Medina MD, Phone: [phone] Serum or plasma albumin/glob ulin mass ratioon 04-20-2021 Albumin/Globulin [Mass ratio] 0.7 {ratio} 0.9-2.4 [facility] Work Phone: Serum procalcitonin measurem enton 04-20-2021 Procalcitonin [Mass/Vol] 0.13 ng/mL 0.00-0.09 [facility] Work Phone: Comment on above: A procalcitonin (PCT ) level above 2.0 ng/mL on the first day of ICU admission is associated with a high risk for progression to severe sepsis and/or septic shock. A PCT level below 0.5 ng/mL on the first day of ICU admission is associated with a low risk for progression to severe and/or septic shock. Note: Concentrations <0.5 ng/mL do not exclude an infection on account of localized infections (without systemic signs) which can be associated with such low concentrations, or a systemic infection in its initial stages (<6 hours). Furthermore, increased procalcitonin can occur without infection. PCT concentrations between 0.5 and 2.0 ng/mL should be interpreted taking into account the patient's history. It is recommended to retest PCT within 6-24 hours if any concentrations <2 ng/mL are obtained. Serum rheumatoid factor dete ctionon 04-20-2021 Rheumatoid factor Ql (S) < 10.0 IU/mL <15 [facility] Work Phone: Basophil percentageon 2021 Lactate [Moles/Vol] 1.7 mmol/L 0.4-2.0 [facility] Work Phone: No Panel Informationon 04-19 Methicillin-Resist S.aureus DNA PCR Negative Negative [facility] Work Phone: Streptococcus pneumoniae Antigen (M [facility] Work Phone: Absolute lymphocyte counton 04-09-2021 Lymphocytes Auto (Unsp spec) [#/Vol] 0.85 10*3/uL 0.83-4.51 [facility] Work Phone: Basophil percentageon 2021 Basophils/100 WBC (Bld) 0.5 % 0-1 [facility] Work Phone: Bilirubin [Mass/Vol] 0.30 mg/dL 0.20-1.00 [facility] Work Phone: Comment on above: For patients on eltr ombopag therapy, use of Dimension [place] TBIL is not recommended. Chloride [Moles/Vol] 101 mmol/L 98-107 [facility] Work Phone: [phone] Eosinophils/100 WBC (Bld) 1.2 % 0-5 [facility] Work Phone: Glucose [Mass/Vol] 346 mg/dL 74-106 [facility] Work Phone: Comment on above: Glucose result great er than or equal to 200 mg/dLsuggests DIABETES MELLITUS per A.D.A. criteria.Please note revised GLUCOSE reference range effective 2017. Neutrophils (Bld) [#/Vol] 2.8 10*3/uL 2.0-7.7 [facility] Work Phone: Neutrophils/100 WBC (Bld) 66.8 % 47-70 [facility] Work Phone: Potassium [Moles/Vol] 4.3 mmol/L 3.5-5.1 [facility] Work Phone: [phone] Protein [Mass/Vol] 6.6 g/dL 6.4-8.2 [facility] Work Phone: Sodium [Moles/Vol] 135 mmol/L 136-145 [facility] Work Phone: WBC (Bld) [#/Vol] 4.2 10*3/uL 4.4-11.0 [facility] Work Phone: Blood erythrocytes count (nu mber/volume)on 04-09-2021 RBC (Bld) [#/Vol] 3.32 10*6/uL 4.2-5.4 [facility] Work Phone: Blood hemoglobin measurement (mass/volume)on 04-09-2021 Hemoglobin (Bld) [Mass/Vol] 9.0 g/dL 12.0-15.0 [facility] Work Phone: Blood lymphocytes/100 leukoc yteson 04-09-2021 Lymphocytes/100 WBC (Bld) 20.4 % 19-41 [facility] Work Phone: Blood monocytes/100 leukocyt eson 04-09-2021 Monocytes/100 WBC (Bld) 9.9 % 0-10 [facility] Work Phone: Blood platelet mean volumeon 04-09-2021 Platelet mean volume (Bld) [Entitic vol] 10.7 fL 6.2-12.0 [facility] Work Phone: Determination of erythrocyte mean corpuscular volume (MCV)on 04-09-2021 MCV (RBC) [Entitic vol] 88.0 fL 81-99 [facility] Work Phone: Glucose Glucometer (BldC) [M ass/Vol]on 04-09-2021 Glucose [Mass/Vol] 228 mg/dL 70-110 [facility] Work Phone: Comment on above: MANAGEMENT OF PATIEN T CARE PER NURSING PROTOCOL Hematocrit Auto (Bld) [Volum e fraction]on 04-09-2021 Hematocrit (Bld) [Volume fraction] 29.2 % 37-47 [facility] Work Phone: Laboratory - Chemistry and C hemistry - challengeon 04-09-2021 ALP [Catalytic activity/Vol] 122 U/L 45-117 [facility] Work Phone: ALT [Catalytic activity/Vol] 50 U/L 13-56 [facility] Work Phone: CO2 [Moles/Vol] 26.0 mmol/L 21.0-32.0 [facility] Work Phone: Globulin (S) [Mass/Vol] 4.6 g/dL 2.2-4.2 [facility] Work Phone: Urea nitrogen/Creatinine [Mass ratio] 38.1 mg/mg 10-20 [facility] Work Phone: Laboratory - Hematology and Cell countson 04-09-2021 Erythrocyte distribution width (RBC) [Entitic vol] 45.1 fL 35.1-43.9 [facility] Work Phone: Erythrocyte distribution width (RBC) [Ratio] 14.5 % 11.6-14.6 [facility] Work Phone: Immature granulocytes/100 WBC (Bld) 1.200 % 0.0-0.9 [facility] Work Phone: Comment on above: IG% - Immature Granu locytes (promyelocytes, myelocytes and metamyelocytes) > 1% indicates that a LEFT SHIFT is Present. MCH (RBC) [Entitic mass] 27.1 pg 27.0-32.0 [facility] Work Phone: Nucleated RBC/100 WBC (Bld) [Ratio] 0.5 % 0-5 [facility] Work Phone: MCHC Auto (RBC) [Mass/Vol]on 04-09-2021 MCHC (RBC) [Mass/Vol] 30.8 g/dL 32-36 [facility] Work Phone: No Panel Informationon 04-09 Estimated Creatinine Clearance Calc 90.05 ml/min [facility] Work Phone: Estimated GFR (MDRD) Amer 118 mL/min >60 [facility] Work Phone: Comment on above: GFR Calc Estimated GFR (MDRD) Non-Af Amer 97 mL/min >60 [facility] Work Phone: Comment on above: Non- GFR Calc Platelets bldon 04-09-2021 Platelets (Bld) [#/Vol] 301 10*3/uL 150-450 [facility] Work Phone: Serum or plasma albumin cherelle urement (mass/volume)on 04-09-2021 Albumin [Mass/Vol] 2.0 g/dL 3.2-5.0 [facility] Work Phone: Serum or plasma albumin/glob ulin mass ratioon 04-09-2021 Albumin/Globulin [Mass ratio] 0.4 {ratio} 0.9-2.4 [facility] Work Phone: Serum or plasma calcium cherelle urement (mass/volume)on 04-09-2021 Calcium [Mass/Vol] 8.7 mg/dL 8.5-10.1 [facility] Work Phone: Serum or plasma creatinine m easurement (mass/volume)on 04-09-2021 Creatinine [Mass/Vol] 0.68 mg/dL 0.55-1.02 [facility] Work Phone: Comment on above: The validity of the calculated GFR & GFRAA in patients over 70 years has not been determined. Clinical correlation is essential. Serum or plasma urea nitroge n measurement (mass/volume)on 04-09-2021 Urea nitrogen [Mass/Vol] 26 mg/dL 7-18 [facility] Work Phone: Thin prep Papanicolaou smear with manual screeningon 04-09-2021 Thin prep Papanicolaou smear with manual screening 36 U/L 15-37 [facility] Work Phone: Thin prep Papanicolaou smear with manual screening 8 5-15 [facility] Work Phone: Gram stain for investigation of transfusion reactionon 04-08-2021 Microscopic observation Gram stain Nom (Unsp spec) [facility] Work Phone: No Panel Informationon 04-08 SARS-CoV-2 Antigen (Rapid) [facility] Work Phone: Review by pathologiston Pathologist review Jose Angel (Unsp spec) [Interp] Reviewed [facility] Work Phone: Comment on above: Previous reported re sult: Uma mora Edited by: NOEMIOD on 04/08/21:1404Leukopenia and Normocytic anemia.Clinical correlation necessary.Codey Boston M.D. 04/08/21 AMENDED REPORT 04/08/21 1404 PATH REV previously reported as: Uma mora Basophil percentageon 2021 Lactate [Moles/Vol] 0.9 mmol/L 0.4-2.0 [facility] Work Phone: INR in Blood by Coagulation assayon 04-07-2021 INR Coag (Bld) [Relative time] 1.1 {INR} [facility] Work Phone: Laboratory - Chemistry and C hemistry - challengeon 04-07-2021 CK [Catalytic activity/Vol] 23 U/L 26-192 [facility] Work Phone: Magnesium [Mass/Vol] 1.6 mg/dL 1.6-2.6 [facility] Work Phone: Natriuretic peptide B (Bld) [Mass/Vol] 385.2 pg/mL 0-100 [facility] Work Phone: Laboratory - Coagulationon 0 04-07-2021 PT Coag (PPP) [Time] 13.8 s 11.7-14.9 [facility] Work Phone: Laboratory - Microbiology an d Antimicrobial susceptibilityon 04-07-2021 Bacteria identified Cx Nom (Bld) No growth in 5 days. [facility] Work Phone: No Panel Informationon 04-07 Streptococcus pneumoniae Antigen (M [facility] Work Phone: Troponin I High Sensitivity 37 pg/mL 3.0-54.0 [facility] Work Phone: Comment on above: Please Note: New [place] t Units and Gender Specific Reference Ranges. For more information see Policy Stat Procedure [place] High Sensitivity Troponin (TNIH) and attachments. D-Dimer Quantitative (PE/DVT) 3.96 FEU/ug/m 0.27-0.49 [facility] Work Phone: Comment on above: D-Dimer ELEVATED (>0 .49): Additional studies and clinicalassessments are indicated to conclude diagnosis of:Deep Vein Thrombosis (DVT) or Pulmonary Embolism (PE)CRITICAL VALUE VERIFIED. CALLED TO BULL ROMERO04/07/21 1904 Pippa Levi.RESULTS READ BACK BY SAME . Fibrinogen > 900 mg/dl 203-444 [facility] Work Phone: Serum or plasma C reactive p rotein measurement (mass/volume)on 04-07-2021 CRP [Mass/Vol] 246.00 mg/L 0.0-3.0 [facility] Work Phone: Comment on above: C-Reactive Protein ( CRP) provides useful information for thediagnosis, therapy and monitoring of inflammatory processesand associated diseases. For the evaluation of Relative Riskfor Cardiovascular Disease, a High Sensitivity CRP (HSCRP)should be ordered. Serum or plasma acetone cherlele urement (mass/volume)on 04-07-2021 Acetone [Mass/Vol] Negative NEG [facility] Work Phone: Serum procalcitonin measurem enton 04-07-2021 Procalcitonin [Mass/Vol] 1.08 ng/mL 0.00-0.09 [facility] Work Phone: Comment on above: A procalcitonin (PCT ) level above 2.0 ng/mL on the first day of ICU admission is associated with a high risk for progression to severe sepsis and/or septic shock. A PCT level below 0.5 ng/mL on the first day of ICU admission is associated with a low risk for progression to severe and/or septic shock. Note: Concentrations <0.5 ng/mL do not exclude an infection on account of localized infections (without systemic signs) which can be associated with such low concentrations, or a systemic infection in its initial stages (<6 hours). Furthermore, increased procalcitonin can occur without infection. PCT concentrations between 0.5 and 2.0 ng/mL should be interpreted taking into account the patient's history. It is recommended to retest PCT within 6-24 hours if any concentrations <2 ng/mL are obtained. Thin prep Papanicolaou smear with manual screeningon 04-07-2021 Thin prep Papanicolaou smear with manual screening 346 U/L 84-246 [facility] Work Phone: Basophil percentageon 2020 Chloride [Moles/Vol] 108 mmol/L 98-107 [facility] Work Phone: Glucose [Mass/Vol] 152 mg/dL 74-106 [facility] Work Phone: Comment on above: Fasting Glucose resu lt greater than or equal to 126 mg/dL suggests DIABETES MELLITUS per A.D.A. criteria.Please note revised GLUCOSE reference range effective 2017. Potassium [Moles/Vol] 3.6 mmol/L 3.5-5.1 [facility] Work Phone: Sodium [Moles/Vol] 141 mmol/L 136-145 [facility] Work Phone: Glucose Glucometer (BldC) [M ass/Vol]on 03-24-2021 Glucose [Mass/Vol] 209 mg/dL 70-110 [facility] Work Phone: Comment on above: MANAGEMENT OF PATIEN T CARE PER NURSING PROTOCOL Laboratory - Chemistry and C hemistry - challengeon 03-24-2021 CO2 [Moles/Vol] 26.0 mmol/L 21.0-32.0 [facility] Work Phone: Urea nitrogen/Creatinine [Mass ratio] 10.1 mg/mg 10-20 [facility] Work Phone: No Panel Informationon 03-24 Estimated Creatinine Clearance Calc 146.91 ml/min [facility] Work Phone: Estimated GFR (MDRD) Amer 221 mL/min >60 [facility] Work Phone: Comment on above: GFR Calc Estimated GFR (MDRD) Non-Af Amer 182 mL/min >60 [facility] Work Phone: Comment on above: Non- GFR Calc Serum or plasma calcium cherelle urement (mass/volume)on 03-24-2021 Calcium [Mass/Vol] 8.2 mg/dL 8.5-10.1 [facility] Work Phone: Serum or plasma creatinine m easurement (mass/volume)on 03-24-2021 Creatinine [Mass/Vol] 0.40 mg/dL 0.55-1.02 [facility] Work Phone: Comment on above: The validity of the calculated GFR & GFRAA in patients over 70 years has not been determined. Clinical correlation is essential. Serum or plasma urea nitroge n measurement (mass/volume)on 03-24-2021 Urea nitrogen [Mass/Vol] 4 mg/dL - [facility] Work Phone: Thin prep Papanicolaou smear with manual screeningon 03-24-2021 Thin prep Papanicolaou smear with manual screening 7 5-15 [facility] Work Phone: Vancomycin troughon 03-24-20 Vancomycin trough [Mass/Vol] 3.6 ug/mL 5.0-15.0 [facility] Work Phone: Comment on above: VANCOMYCIN STANDARED DRUG THERAPY TROUGH LEVEL: 5.0 - 15.0 mg/L VANCOMYCIN HIGH INTENSITY THERAPY TROUGH LEVEL: 15.0 - 20.0 mg/L High Intensity therapy recommended for serious lifethreatening infections include:- Mivitbvwmg-Uyizzpcjtqdt-Nzhvyitrv (Ventilator/Healtcare Associated)-Sepsis PLEASE CONTACT PHARMACY SERVICES (#[id number]) FOR INTERPRETATIONOF RESULTS. Absolute lymphocyte counton 03-23-2021 Lymphocytes Auto (Unsp spec) [#/Vol] 0.82 10*3/uL 0.83-4.51 [facility] Work Phone: Basophil percentageon 2020 Neutrophils (Bld) [#/Vol] 5.5 10*3/uL 2.0-7.7 [facility] Work Phone: WBC (Bld) [#/Vol] 7.5 10*3/uL 4.4-11.0 [facility] Work Phone: Blood band neutrophil count as percentage of total leukocyteson 03-23-2021 Band form neutrophils/100 WBC (Bld) 11 % 0-5 [facility] Work Phone: [phone] Blood erythrocytes count (nu mber/volume)on 03-23-2021 RBC (Bld) [#/Vol] 3.90 10*6/uL 4.2-5.4 [facility] Work Phone: [phone] Blood hemoglobin measurement (mass/volume)on 03-23-2021 Hemoglobin (Bld) [Mass/Vol] 11.2 g/dL 12.0-15.0 [facility] Work Phone: [phone] Blood lymphocytes/100 leukoc yteson 03-23-2021 Lymphocytes/100 WBC (Bld) 11 % 19-41 [facility] Work Phone: Blood metamyelocytes/100 marquise kocyteson 03-23-2021 Metamyelocytes/100 WBC (Bld) 9 % 0-1 [facility] Work Phone: Blood monocytes/100 leukocyt eson 03-23-2021 Monocytes/100 WBC (Bld) 6 % 0-10 [facility] Work Phone: Blood platelet adequacy dete ction by light microscopyon 03-23-2021 Platelets LM Ql (Bld) SLT DEC ADEQ [facility] Work Phone: Blood platelet mean volumeon 03-23-2021 Platelet mean volume (Bld) [Entitic vol] 9.7 fL 6.2-12.0 [facility] Work Phone: Blood segmented neutrophils/ 100 leukocyteson 03-23-2021 Segmented neutrophils/100 WBC (Bld) 63 % 47-70 [facility] Work Phone: Determination of erythrocyte mean corpuscular volume (MCV)on 03-23-2021 MCV (RBC) [Entitic vol] 80.5 fL 81-99 [facility] Work Phone: Hematocrit Auto (Bld) [Volum e fraction]on 03-23-2021 Hematocrit (Bld) [Volume fraction] 31.4 % 37-47 [facility] Work Phone: [phone] Laboratory - Hematology and Cell countson 03-23-2021 Anisocytosis Ql (Bld) 1+ [facility] Work Phone: Erythrocyte distribution width (RBC) [Entitic vol] 38.2 fL 35.1-43.9 [facility] Work Phone: Erythrocyte distribution width (RBC) [Ratio] 13.2 % 11.6-14.6 [facility] Work Phone: MCH (RBC) [Entitic mass] 28.7 pg 27.0-32.0 [facility] Work Phone: MCHC Auto (RBC) [Mass/Vol]on 03-23-2021 MCHC (RBC) [Mass/Vol] 35.7 g/dL 32-36 [facility] Work Phone: No Panel Informationon 03-23 Neutrophils (%) (Auto) Not Reportable [facility] Work Phone: Platelets bldon 03-23-2021 Platelets (Bld) [#/Vol] 103 10*3/uL 150-450 [facility] Work Phone: Review by pathologiston 03-06 Pathologist review Jose Angel (Unsp spec) [Interp] Reviewed [facility] Work Phone: Comment on above: Previous reported re sult: Uma mora Edited by: ELAN on 03/26/21:0924Microcytic anemia.Mild Thrombocytopenia.Clinical correlation suggested.Manule Gold D.O. 03/26/21 AMENDED REPORT 03/26/21 0924 PATH REV previously reported as: Uma mora Total cell counton Cells counted Molgen (Bld/Tiss) [#] 100 MANUAL DIFF [facility] Work Phone: Laboratory - Hematology and Cell countson 03-22-2021 Myelocytes/100 WBC (Bld) 1 % 0-0 [facility] Work Phone: RBC morphologyon 03-22-2021 RBC morphology finding Nom (Bld) NORM C+C NORMAL NORM C&C [facility] Work Phone: Whole blood hemoglobin A1c/t otal hemoglobin ratio (mass fraction)on 03-22-2021 HbA1c (Bld) [Mass fraction] 13.9 % 3.8-5.6 [facility] Work Phone: Comment on above: Normal < 5.7 % Predi abetic 5.7 - 6.4 % Diabetic >or= 6.5 % Please note range changes. Blood promyelocytes/100 leuk ocyteson 03-21-2021 Promyelocytes/100 WBC (Bld) 2 % 0-0 [facility] Work Phone: No Panel Informationon 03-21 Atypical Lymphocytes 1+ % [facility] Work Phone: Thyroid Stimulating Hormone (TSH) 0.37 uIU/mL 0.358-3.74 [facility] Work Phone: Basophil percentageon 2020 Eosinophils/100 WBC (Bld) 0.1 % 0-5 [facility] Work Phone: Blood lymphocytes/100 leukoc yteson 03-20-2021 Lymphocytes/100 WBC (Bld) 10.0 % 19-41 [facility] Work Phone: Blood monocytes/100 leukocyt eson 03-20-2021 Monocytes/100 WBC (Bld) 11.5 % 0-10 [facility] Work Phone: Laboratory - Hematology and Cell countson 03-20-2021 Basophils/100 WBC (Unsp spec) 0.6 % 0-1 [facility] Work Phone: Immature granulocytes/100 WBC (Bld) 3.900 % 0.0-0.9 [facility] Work Phone: Comment on above: IG% - Immature Granu locytes (promyelocytes, myelocytes and metamyelocytes) > 1% indicates that a LEFT SHIFT is Present. Nucleated RBC/100 WBC (Bld) [Ratio] 0 % 0-5 [facility] Work Phone: Laboratory - Microbiology an d Antimicrobial susceptibilityon 03-20-2021 Bacteria identified Cx Nom (Bld) No growth in 5 days. [facility] Work Phone: Amorphous sediment detection in urine sediment by light microscopyon 03-19-2021 Amorphous sediment LM Ql (Urine sed) 1+ [facility] Work Phone: [phone] Basophil percentageon 2020 Basophil percentage 0-5 SEEN /hpf [facility] Work Phone: Bilirubin [Mass/Vol] 0.60 mg/dL 0.20-1.00 [facility] Work Phone: Comment on above: For patients on eltr ombopag therapy, use of Dimension [place] TBIL is not recommended. Protein [Mass/Vol] 7.1 g/dL 6.4-8.2 [facility] Work Phone: Bilirubin Test strip Ql (U)o n 03-19-2021 Bilirubin Ql (U) Negative Negative [facility] Work Phone: Blood manual differential co mment interpretation (narrative result)on 03-19-2021 Manual differential comment Jose Angel (Bld) [Interp] SCANNED [facility] Work Phone: Comment on above: MONOCYTOSIS NOTED HCO3 (BldA) [Moles/Vol]on HCO3 (Bld) [Moles/Vol] 4 mmol/L 22- [facility] Work Phone: Hyaline casts LM.LPF (Urine sed) [#/Area]on 03-19-2021 Hyaline casts (Urine sed) [#/Area] 5 /[LPF] [facility] Work Phone: Ketones Test strip Ql (U)on 03-19-2021 Ketones Ql (U) 150 mg/dl Negative [facility] Work Phone: Comment on above: CRITICAL VALUE VERIF IED. CALLED TO JANE FLORIAN03/19/[id number] Eulalio López.RESULTS READ BACK BY SAME . CRITICAL VALUE *H Laboratory - Chemistry and C hemistry - challengeon 03-19-2021 ALP [Catalytic activity/Vol] 124 U/L 45-117 [facility] Work Phone: ALT [Catalytic activity/Vol] 30 U/L 13-56 [facility] Work Phone: Globulin (S) [Mass/Vol] 4.7 g/dL 2.2-4.2 [facility] Work Phone: Magnesium [Mass/Vol] 2.6 mg/dL 1.6-2.6 [facility] Work Phone: Comment on above: Slight Hemolysis, Re sult may be falsely increased. Mucus LM Ql (Urine sed)on Mucus Ql (Urine sed) 0 SEEN /hpf [facility] Work Phone: Nitrite Test strip Ql (U)on 03-19-2021 Nitrite Ql (U) Negative Negative [facility] Work Phone: No Panel Informationon 03-19 Bed Mix Venous Bld PCO2 at Pat Temp 13.9 mmHg 41-51 [facility] Work Phone: Bld Gas Crit Called To/Read Back By Yes [facility] Work Phone: Blood Gas Notified Time 21:29:48 [facility] Work Phone: Blood Gas Notified Whom Le [facility] Work Phone: Comment on above: Previous reported re sult: Lea Edited by: WILIAN on 03/20/21:0622 AMENDED REPORT 03/20/21621 Results To previously reported as: Li Blood Gas Specimen Type ROSEMARIE [facility] Work Phone: Oxygen Delivery Device Room Air [facility] Work Phone: Venous Blood Base Excess -26 mmol/L -1.0-3.5 [facility] Work Phone: Venous Blood Total Carbon Dioxide < 5 mmol/L 23-33 [facility] Work Phone: SARS-CoV-2 Antigen (Rapid) SARS-CoV-2 (COVID 19) [facility] Work Phone: PO2 venouson 03-19-2021 Oxygen (BldV) [Partial pressure] 61 mm[Hg] 25-40 [facility] Work Phone: Protein Test strip Ql (U)on 03-19-2021 Protein Ql (U) 100 mg/dl Negative [facility] Work Phone: Serum or plasma C reactive p rotein measurement (mass/volume)on 03-19-2021 CRP [Mass/Vol] 73.00 mg/L 0.0-3.0 [facility] Work Phone: Comment on above: C-Reactive Protein ( CRP) provides useful information for thediagnosis, therapy and monitoring of inflammatory processesand associated diseases. For the evaluation of Relative Riskfor Cardiovascular Disease, a High Sensitivity CRP (HSCRP)should be ordered. Serum or plasma acetone cherelle urement (mass/volume)on 03-19-2021 Acetone [Mass/Vol] LARGE NEG [facility] Work Phone: Serum or plasma albumin cherelle urement (mass/volume)on 03-19-2021 Albumin [Mass/Vol] 2.4 g/dL 3.2-5.0 [facility] Work Phone: Serum or plasma albumin/glob ulin mass ratioon 03-19-2021 Albumin/Globulin [Mass ratio] 0.5 {ratio} 0.9-2.4 [facility] Work Phone: Squamous epithelial cells de tection in urine sediment by light microscopyon 03-19-2021 Epithelial cells.squamous LM Ql (Urine sed) 0 SEEN /hpf [facility] Work Phone: Thin prep Papanicolaou smear with manual screeningon 03-19-2021 Thin prep Papanicolaou smear with manual screening 35 U/L 15-37 [facility] Work Phone: Comment on above: Slight Hemolysis, Re sult may be falsely increased. Urine blood detectionon 03-06 RBC Ql (U) 250 /ul Negative [facility] Work Phone: RBC Ql (U) 0 SEEN /hpf [facility] Work Phone: Urine clarityon 03-19-2021 Clarity (U) Clear Clear [facility] Work Phone: Urine color determinationon 03-19-2021 Color (U) Yellow Yellow [facility] Work Phone: Urine glucose detectionon Glucose Ql (U) 1000 mg/dl Normal [facility] Work Phone: Urine leukocyte esterase det ection by dipstickon 03-19-2021 Leukocyte esterase Test strip Ql (U) Negative Negative [facility] Work Phone: Urine pHon 03-19-2021 pH (U) 5.0 [pH] [facility] Work Phone: Urine sediment bacteria coun t by microscopy (number/high power field)on 03-19-2021 Bacteria LM.HPF (Urine sed) [#/Area] 1 /[HPF] None Seen [facility] Work Phone: Urine specific gravity measu rementon 03-19-2021 Specific gravity (U) [Rel density] 1.025 [facility] Work Phone: Urobilinogen Auto test strip Ql (U)on 03-19-2021 Urobilinogen Ql (U) Normal mg/dl Normal [facility] Work Phone: Vital signson 03-19-2021 Oxygen saturation in Blood 80 % 50-70 [facility] Work Phone: pH measurementon 03-19-2021 pH (Unsp spec) 7.06 [pH] 7.32-7.42 [facility] Work Phone: No Panel Information [facility] Vital Signs Date Time Vital Sign Value Performing Clinician Facility 10-18-2024 14:00-0400 Body temperature 97.4 [degF] Dr. Sapna Ray DO Work Phone: [facility] 10-18-2024 14:00-0400 Diastolic blood pressure 76 mm[Hg] Dr. Sapna Ray DO Work Phone: [facility] 10-18-2024 14:00-0400 Heart rate 111 /min Dr. Sapna Ray DO Work Phone: [facility] 10-18-2024 14:00-0400 Respiratory rate 20 /min Dr. Sapna Ray DO Work Phone: [facility] 10-18-2024 14:00-0400 SaO2% (BldA) [Mass fraction] 93 % Dr. Sapna Ray DO Work Phone: [facility] 10-18-2024 14:00-0400 Systolic blood pressure 134 mm[Hg] Dr. Sapna Ray DO Work Phone: [facility] 10-18-2024 09:59-0400 Body height 165.[address] Sapna Ray DO Work Phone: [facility] 10-18-2024 09:59-0400 Body mass index (BMI) [Ratio] 32.8 kg/m2 Dr. Sapna Ray DO Work Phone: [facility] 10-18-2024 09:59-0400 Body weight 89.[address] Sapna Ray DO Work Phone: [facility] 07-18-2024 09:53-0400 Body mass index (BMI) [Ratio] 30.14 kg/m2 Merry Medrano APRN.SALES SERVICE TECHNICIAN Work Phone: [facility] 07-18-2024 09:53-0400 Body temperature 98.29 [degF] Merry Medrano APRN.SALES SERVICE TECHNICIAN Work Phone: [facility] 07-18-2024 09:53-0400 Body weight 82.8 kg Merry Medrano APRN.SALES SERVICE TECHNICIAN Work Phone: [facility] 07-18-2024 09:53-0400 Diastolic blood pressure 78 mm[Hg] Merry Medrano TUBULAR RIVETER.SALES SERVICE TECHNICIAN Work Phone: [facility] 07-18-2024 09:53-0400 Heart rate 118 /min Merry Medrano TUBULAR RIVETER.SALES SERVICE TECHNICIAN Work Phone: [facility] 07-18-2024 09:53-0400 Respiratory rate 18 /min Merry Medrano TUBULAR RIVETER.SALES SERVICE TECHNICIAN Work Phone: [facility] 07-18-2024 09:53-0400 SaO2% (BldA) [Mass fraction] 98 % Merry Medrano TUBULAR RIVETER.SALES SERVICE TECHNICIAN Work Phone: [facility] 07-18-2024 09:53-0400 Systolic blood pressure 122 mm[Hg] Merry Medrano TUBULAR RIVETER.SALES SERVICE TECHNICIAN Work Phone: [facility] 03-30-2022 17:11-0500 Body temperature 97.8 [degF] Dr. Sapna Ray Work Phone: [facility] Work Phone: 03-30-2022 17:11-0500 Diastolic blood pressure 65 mm[Hg] Dr. Sapna Ray Work Phone: [facility] Work Phone: 03-30-2022 17:11-0500 Heart rate 88 /min Dr. Sapna Ray Work Phone: [facility] Work Phone: 03-30-2022 17:11-0500 Respiratory rate 16 /min Dr. Sapna Ray Work Phone: [facility] Work Phone: 03-30-2022 17:11-0500 SaO2% (BldA) [Mass fraction] 99 % Dr. Sapna Ray Work Phone: [facility] Work Phone: 03-30-2022 17:11-0500 Systolic blood pressure 115 mm[Hg] Dr. Sapna Ray Work Phone: [facility] Work Phone: 03-30-2022 13:49-0500 Body height 165.[address] Sapna Ray Work Phone: [facility] Work Phone: 03-30-2022 13:49-0500 Body mass index (BMI) [Ratio] 31.9 kg/m2 Dr. Sapna Ray Work Phone: [facility] Work Phone: 03-30-2022 13:49-0500 Body weight 87.[address] Sapna Ray Work Phone: [facility] Work Phone: 10-30-2021 15:41-0400 Diastolic blood pressure 75 mm[Hg] Dr. Sapna Ray Work Phone: [facility] Work Phone: 10-30-2021 15:41-0400 Systolic blood pressure 132 mm[Hg] Dr. Sapna Ray Work Phone: [facility] Work Phone: 10-30-2021 15:00-0400 Heart rate 91 /min Dr. Sapna Ray Work Phone: [facility] Work Phone: 10-30-2021 15:00-0400 Respiratory rate 19 /min Dr. Sapna Ray Work Phone: [facility] Work Phone: 10-30-2021 15:00-0400 SaO2% (BldA) [Mass fraction] 100 % Dr. Sapna Ray Work Phone: [facility] Work Phone: 10-30-2021 12:36-0400 Body height 165.[address] Sapna Ray Work Phone: [facility] Work Phone: 10-30-2021 12:36-0400 Body mass index (BMI) [Ratio] 31.8 kg/m2 Dr. Sapna Ray Work Phone: [facility] Work Phone: 10-30-2021 12:36-0400 Body temperature 97.5 [degF] Dr. Sapna Ray Work Phone: [facility] Work Phone: 10-30-2021 12:36-0400 Body weight 86.[address] Sapna Ray Work Phone: [facility] Work Phone: 09-05-2021 15:52-0400 Body height 165.[address] Sapna Ray Work Phone: [facility] Work Phone: 09-05-2021 15:52-0400 Body mass index (BMI) [Ratio] 31.6 kg/m2 Dr. Sapna Ray Work Phone: [facility] Work Phone: 09-05-2021 15:52-0400 Body temperature 98.1 [degF] Dr. Sapna Ray Work Phone: [facility] Work Phone: 09-05-2021 15:52-0400 Body weight 86.[address] Sapna Ray Work Phone: [facility] Work Phone: 09-05-2021 15:52-0400 Diastolic blood pressure 92 mm[Hg] Dr. Sapna Ray Work Phone: [facility] [facility] Work Phone: 09-05-2021 15:52-0400 Heart rate 152 /min Dr. Sapna Ray Work Phone: [facility] Work Phone: 09-05-2021 15:52-0400 Respiratory rate 18 /min Dr. Sapna Ray Work Phone: [facility] Work Phone: 09-05-2021 15:52-0400 SaO2% (BldA) [Mass fraction] 98 % Dr. Sapna Ray Work Phone: [facility] Work Phone: 09-05-2021 15:52-0400 Systolic blood pressure 119 mm[Hg] Dr. Sapna Ray Work Phone: [facility] Work Phone: 08-29-2021 11:30-0400 Body temperature 97.59 [degF] Júnior Alvarado MD Work Phone: [facility] 08-29-2021 11:30-0400 Diastolic blood pressure 70 mm[Hg] Júnior Alvarado MD Work Phone: [facility] 08-29-2021 11:30-0400 Heart rate 145 /min Júnior Alvarado MD Work Phone: [facility] 08-29-2021 11:30-0400 Respiratory rate 16 /min Júnior Alvarado MD Work Phone: [facility] 08-29-2021 11:30-0400 SaO2% (BldA) [Mass fraction] 97 % Júnior Alvarado MD Work Phone: [facility] 08-29-2021 11:30-0400 Systolic blood pressure 124 mm[Hg] Júnior Alvarado MD Work Phone: [facility] 07-09-2021 19:59-0400 Body height 165.[address] Sapna Ray Work Phone: [facility] Work Phone: 07-09-2021 19:59-0400 Body mass index (BMI) [Ratio] 31.6 kg/m2 Dr. Sapna Ray Work Phone: [facility] Work Phone: 07-09-2021 19:59-0400 Body temperature 96.9 [degF] Dr. Sapna Ray Work Phone: [facility] Work Phone: 07-09-2021 19:59-0400 Body weight 86.[address] Sapna Ray Work Phone: [facility] Work Phone: 07-09-2021 19:59-0400 Diastolic blood pressure 88 mm[Hg] Dr. Sapna Ray Work Phone: [facility] Work Phone: 07-09-2021 19:59-0400 Heart rate 120 /min Dr. Sapna Ray Work Phone: [facility] Work Phone: 07-09-2021 19:59-0400 Respiratory rate 18 /min Dr. Sapna Ray Work Phone: [facility] Work Phone: 07-09-2021 19:59-0400 SaO2% (BldA) [Mass fraction] 98 % Dr. Sapna Ray Work Phone: [facility] Work Phone: 07-09-2021 19:59-0400 Systolic blood pressure 130 mm[Hg] Dr. Sapna Ray Work Phone: [facility] Work Phone: 05-22-2021 07:53-0500 Heart rate 145 /min Dr. Sapna Ray Work Phone: [facility] Work Phone: 05-22-2021 07:53-0500 SaO2% (BldA) [Mass fraction] 93 % Dr. Sapna Ray Work Phone: [facility] Work Phone: 05-22-2021 07:12-0500 Body mass index (BMI) [Ratio] 30.4 kg/m2 Dr. Sapna Ray Work Phone: [facility] Work Phone: 05-22-2021 07:12-0500 Body temperature 98.2 [degF] Dr. Sapna Ray Work Phone: [facility] Work Phone: 05-22-2021 07:12-0500 Body weight [address] Sapna Ray Work Phone: [facility] Work Phone: 05-22-2021 07:12-0500 Diastolic blood pressure 89 mm[Hg] Dr. Sapna Ray Work Phone: [facility] Work Phone: 05-22-2021 07:12-0500 Respiratory rate 16 /min Dr. Sapna Ray Work Phone: [facility] Work Phone: 05-22-2021 07:12-0500 Systolic blood pressure 126 mm[Hg] Dr. Sapna Ray Work Phone: [facility] Work Phone: 04-23-2021 07:45-0500 SaO2% (BldA) [Mass fraction] 91 % Dr. Sapna Ray Work Phone: [facility] Work Phone: 04-23-2021 07:35-0500 Body temperature 98.2 [degF] Dr. Sapna Ray Work Phone: [facility] Work Phone: 04-23-2021 07:35-0500 Diastolic blood pressure 84 mm[Hg] Dr. Sapna Ray Work Phone: [facility] Work Phone: 04-23-2021 07:35-0500 Heart rate 91 /min Dr. Sapna Ray Work Phone: [facility] Work Phone: 04-23-2021 07:35-0500 Respiratory rate 16 /min Dr. Sapna Ray Work Phone: [facility] Work Phone: 04-23-2021 07:35-0500 Systolic blood pressure 137 mm[Hg] Dr. Sapna Ray Work Phone: [facility] Work Phone: 04-23-2021 04:10-0500 Body weight 71.[address] Sapna Ray Work Phone: [facility] Work Phone: 04-19-2021 19:50-0500 Body mass index (BMI) [Ratio] 26.3 kg/m2 Dr. Sapna Ray Work Phone: [facility] Work Phone: 04-09-2021 11:20-0500 Body temperature 98.6 [degF] Dr. Sapna Ray Work Phone: [facility] Work Phone: 04-09-2021 11:20-0500 Diastolic blood pressure 56 mm[Hg] Dr. Sapna Ray Work Phone: [facility] Work Phone: 04-09-2021 11:20-0500 Heart rate 96 /min Dr. Sapna Ray Work Phone: [facility] Work Phone: 04-09-2021 11:20-0500 Respiratory rate 18 /min Dr. Sapna Ray Work Phone: [facility] Work Phone: 04-09-2021 11:20-0500 SaO2% (BldA) [Mass fraction] 93 % Dr. Sapna Ray Work Phone: [facility] Work Phone: 04-09-2021 11:20-0500 Systolic blood pressure 93 mm[Hg] Dr. Sapna Ray Work Phone: [facility] Work Phone: 04-08-2021 13:28-0500 Body weight 72.[address] Sapna Ray Work Phone: [facility] Work Phone: 04-07-2021 17:32-0500 Body mass index (BMI) [Ratio] 26.4 kg/m2 Dr. Sapna Ray Work Phone: [facility] Work Phone: 03-24-2021 12:30-0500 Heart rate 121 /min Dr. Sapna Ray Work Phone: [facility] Work Phone: 03-24-2021 10:20-0500 Body temperature 98.1 [degF] Dr. Sapna Ray Work Phone: [facility] Work Phone: 03-24-2021 10:20-0500 Diastolic blood pressure 72 mm[Hg] Dr. Sapna Ray Work Phone: [facility] Work Phone: 03-24-2021 10:20-0500 Respiratory rate 17 /min Dr. Sapna Ray Work Phone: [facility] Work Phone: 03-24-2021 10:20-0500 SaO2% (BldA) [Mass fraction] 97 % Dr. Sapna Ray Work Phone: [facility] Work Phone: 03-24-2021 10:20-0500 Systolic blood pressure 131 mm[Hg] Dr. Sapna Ray Work Phone: [facility] Work Phone: 03-24-2021 05:00-0500 Body weight 64.[address] Sapna Ray Work Phone: [facility] Work Phone: 03-20-2021 03:00-0500 Inhaled oxygen concentration 70 % Dr. Sapna Ray Work Phone: [facility] Work Phone: 03-19-2021 23:28-0500 Body mass index (BMI) [Ratio] 25.7 kg/m2 Dr. Sapna Ray Work Phone: [facility] Work Phone: Encounters Encounter Date Encounter Type Care Provider Facility Start: 10-18-2024 Non-patient / Non-visit Dr. Khanh Posey DO [facility] Work Phone: Start: 10-18-2024 Evaluation and manag ement of inpatient Dr. Darvin Posey DO [facility] Work Phone: Start: 07-18-2024 End: 07-18-2024 ambulatory SAPNA RAY Facility:[facility] Start: 07-18-2024 End: 07-18-2024 Patient encounter procedure Merry Medrano APRN.CNP Work Phone: [facility] Comment on above: Bacterial sinusitis (Primary Dx); Antibiotic-induced yeast infection Start: 01-15-2024 End: 01-16-2024 Evaluation and management of inpatient Cari Reeves Facility:[facility] Start: 01-15-2024 ambulatory Cari Revees Facility:[facility] Start: 12-07-2023 End: 12-07-2023 Emergency department patient visit Sav Kenyon Facility:[facility] Start: 03-30-2022 End: 03-30-2022 Emergency department patient visit Dr. Sapna Ray Work Phone: [facility]-Emergency Department Start: 02-04-2022 End: 02-04-2022 Patient encounter procedure [...] Pure hypercholesterolemia; Depression, unspecified depression type Start: 01-28-2022 End: 01-28-[address] Sapna Ray Work Phone: [facility] Work Phone: Start: 01-28-2022 End: 01-28-[address] Sapna Ray Work Phone: [facility]-Laboratory,Fut ure Start: 12-20-2021 End: 12-20-[address] Sapna Ray Work Phone: [facility] Start: 12-18-2021 End: 12-18-[address] Sapna Ray Work Phone: [facility] Work Phone: Start: 12-18-2021 End: 12-18-[address] Sapna Ray Work Phone: [facility] Start: 12-11-2021 End: 12-11-[address] SAPNA RAY DO [facility] Start: 10-30-2021 End: 10-30-2021 Emergency department patient visit Dr. Sapna Ray Work Phone: [facility]Emergency Department Start: 10-23-2021 End: 10-23-[address] Sapna Ray Work Phone: [facility] Start: 09-18-2021 End: 09-18-2021 Patient encounter procedure [facility] Start: 09-05-2021 End: 09-05-2021 Emergency department patient visit Dr. Sapna Ray Work Phone: [facility]-Emergency Department Start: 08-29-2021 End: 08-29-2021 Subsequent hospital visit by physician Xr [facility] Work Phone: Radiology Comment on above: Rib pain on left twila e [R07.81] Start: 08-29-2021 End: 08-29-2021 Patient encounter procedure Júnior Alvarado MD Work Phone: [facility] Comment on above: Rib pain on left twila e (Primary Dx); Acute pain of right knee; Leg weakness, bilateral; Chronic bilateral low back pain with bilateral sciatica Start: 07-09-2021 End: 07-09-2021 Emergency department patient visit Dr. Sapna Ray Work Phone: [facility]-Emergency Department Start: 05-22-2021 End: 05-22-[address] [facility] Start: 04-23-2021 Non-patient / Non-visit Dr. Lea Ray Work Phone: [facility] Start: 04-22-2021 Non-patient / Non-visit Dr. Lea Ray Work Phone: [facility] Start: 04-21-2021 Non-patient / Non-visit Dr. Lea Ray Work Phone: [facility] Start: 04-21-2021 Non-patient / Non-visit Dr. Lea Ray Work Phone: [facility] Start: 04-20-2021 Non-patient / Non-visit Dr. Lea Ray Work Phone: [facility] Start: 04-20-2021 Non-patient / Non-visit Dr. Lea Ray Work Phone: [facility] Start: 04-20-2021 Non-patient / Non-visit Dr. Lea Ray Work Phone: [facility] Start: 04-19-2021 End: 04-23-2021 Evaluation and management of inpatient Dr. Sapna Ray Work Phone: [facility]-Progressive Care Unit Start: 04-09-2021 Non-patient / Non-visit Dr. Lea Ray Work Phone: [facility] Start: 04-08-2021 Non-patient / Non-visit Dr. Lea Ray Work Phone: [facility] Start: 04-07-2021 Non-patient / Non-visit Dr. Lea Ray Work Phone: [facility] Start: 04-07-2021 End: 04-09-2021 Evaluation and management of inpatient Dr. Sapna Ray Work Phone: [facility]-Medical Surgical 3 Start: 03-24-2021 Non-patient / Non-visit Dr. Lea Ray Work Phone: [facility] Start: 03-23-2021 Non-patient / Non-visit Dr. Lea Ray Work Phone: [facility] Start: 03-22-2021 Non-patient / Non-visit Dr. Lea Ray Work Phone: [facility] Start: 03-21-2021 Non-patient / Non-visit Dr. Lea Ray Work Phone: [facility] Start: 03-20-2021 Non-patient / Non-visit Dr. Lea Ray Work Phone: [facility] Start: 03-19-2021 Non-patient / Non-visit Dr. Lea Ray Work Phone: [facility] Start: 03-19-2021 End: 03-24-2021 Evaluation and management of inpatient Dr. Sapna Ray Work Phone: [facility] 2 Procedures Date Procedure Procedure Detail Performing Clinician Start: 10-18-2024 SARS-CoV-2, Influenz a & RSV (PCR) Dr. Sapna Ray DO Work Phone: Start: 10-18-2024 CT angiography of ch est with contrast Dr. Sapna Ray DO Work Phone: Start: 10-18-2024 D-dimer assay, quantitative Dr. Sapna Ray DO Work Phone: Comment on above: D-Dimer ELEVATED (>0 .49): Additional studies and clinicalassessments are indicated to conclude diagnosis of:Deep Vein Thrombosis (DVT) or Pulmonary Embolism (PE) Start: 10-18-[address] Sapna Ray DO Work Phone: Start: 10-18-2024 X-ray of chest, PA a nd lateral views Dr. Sapna Ray DO Work Phone: Start: 03-30-2022 Plain chest X-ray Dr. Shauna Ray Work Phone: Start: 02-04-2022 IOL BIOMETRY W/ IOL CALC OU (BOTH EYES) Warren Blanco MD Work Phone: Start: 02-04-2022 End: 02-04-2022 Computerized ophthalmic imaging retina Warren Blanco MD Work Phone: Start: 12-18-2021 MRI of lumbar spine Dr. Sapna Ray Work Phone: Start: 09-18-2021 Plain x-ray of pelvi s and lower extremity Start: 09-18-2021 Radiography of sacro coccygeal spine Start: 09-18-2021 X-ray of lumbosacral spine Start: 08-29-2021 Radex ribs uni w/pos teroant ch minimum 3 views Júnior Alvarado MD Work Phone: Start: 08-29-2021 Radiologic exam knee complete 4/more views Júnior Alvarado MD Work Phone: Start: 04-19-2021 CT angiography of ch est with contrast Dr. Sapna Ray Work Phone: Start: 04-19-2021 Plain chest X-ray Dr. Shauna Ray Work Phone: Start: 04-19-2021 End: 04-19-2021 Legionella pneumophila antigen assay Dr. Sapna Ray Work Phone: Start: 04-19-2021 Streptococcus pneumo niae Antigen (M Dr. Sanpa Ray Work Phone: Start: 04-08-2021 Investigation of tra nsfusion reaction Dr. Sapna Ray Work Phone: Start: 04-08-2021 End: 04-08-[address] Sapna pittman Work Phone: Start: 04-08-2021 SARS-CoV-2 Antigen (Rapid) Dr. Sapna Ray Work Phone: Start: 04-07-2021 CT angiography of ch est with contrast Dr. Sapna Ray Work Phone: Start: 04-07-2021 Bacteria identified in Blood by Culture Dr. Sapna Ray Work Phone: Start: 04-07-2021 End: 04-07-2021 Legionella pneumophila antigen assay Dr. Sapna Ray Work Phone: Start: 04-07-2021 Streptococcus pneumo niae Antigen (M Dr. Sapna Ray Work Phone: Start: 04-07-2021 Plain chest X-ray Dr. Shauna Ray Work Phone: Start: 03-20-2021 Bacteria identified in Blood by Culture Dr. Sapna Ray Work Phone: Start: 03-19-2021 Plain chest X-ray Dr. Shauna Ray Work Phone: Start: 03-19-2021 SARS-CoV-2 Antigen (Rapid) Dr. Sapna Ray Work Phone: Viral antigen assay Dr. Sapna Ray Work Phone: Plan of Treatment Date Care Activity Detail Author Start: 07-18-2025 BP Controlled (<130/80) BP Controlled (<130/80) [facility] Start: 10-18-2024 Bacteria identified in Blood by Culture Blood Culture [facility] Start: 10-18-2024 Hospital admission, emergency, from emergency room, medical nature [facility] Start: 10-18-2024 Cell count and Differential panel - Body fluid [facility] Start: 10-18-2024 Glucose measurement, body fluid [facility] Start: 10-18-2024 Microbial culture, body fluid [facility] Start: 10-18-2024 Microscopic observation [Identifier] in Body fluid by Cyto stain [facility] Start: 10-18-2024 Verification routine [facility] Start: 10-18-2024 Admission procedure [facility] Start: 10-18-2024 End: 10-18-2024 [facility] Start: 12-06-2023 Covid-19 Vaccine ( season) Covid-19 Vaccine ( season) [facility] Start: 12-06-2023 Influenza vaccination [facility] Start: 02-04-2023 Glaucoma screening Dilated Retinal Exam [facility] Start: 02-04-2023 Hepatitis C antibody, confirmatory test DILATED RETINAL EXAM [facility] Start: 08-29-2022 BP CONTROLLED (<130/80) BP CONTROLLED (<130/80) [facility] Start: 03-30-2022 [facility] Work Phone: Start: 12-05-2021 Influenza vaccination [facility] Start: 08-29-2021 Shingrix Vaccine (2 of 2) Shingrix Vaccine (2 of 2) [facility] Start: 06-20-2021 SHINGRIX VACCINE (1 of 2) SHINGRIX VACCINE (1 of 2) [facility] Start: 06-20-2016 COLOGUARD (FIT-DNA) COLOGUARD (FIT-DNA) [facility] Start: 06-20-2016 Colonoscopy COLONOSCOPY [facility] Start: 06-20-2016 COLORECTAL CANCER SCREENING COLORECTAL CANCER SCREENING [facility] Start: 06-20-[address] COLONOGRAPHY [facility] Start: 06-20-2016 FECAL OCCULT BLOOD FECAL OCCULT BLOOD [facility] Start: 06-20-2016 Screening for malignant neoplasm of colon [facility] Start: 06-20-2016 SIGMOIDOSCOPY SIGMOIDOSCOPY [facility] Start: 2011 Mammography MAMMOGRAM [facility] Start: 2011 Screening for malignant neoplasm of breast Mammogram Screening [facility] Start: 06-20-2001 HPV TESTING HPV TESTING [facility] Start: 06-20-1992 PAP TESTING PAP TESTING [facility] Start: 06-20-1992 Screening for malignant neoplasm of cervix Cervical Cancer Screening [facility] Start: 06-20-1990 HEPATITIS B (1 of 3 - Risk 3-dose series) HEPATITIS B (1 of 3 - Risk 3-dose series) [facility] Start: 06-20-1990 Hepatitis B Vaccine (1 of 3 - 19+ 3-dose series) Hepatitis B Vaccine (1 of 3 - 19+ 3-dose series) [facility] Start: 06-20-1990 Pneumococcal Vaccine: 50+ (1 of 2 - PCV) Pneumococcal Vaccine: 50+ (1 of 2 - PCV) [facility] Start: 06-20-1990 Urine microalbumin profile [facility] Start: 06-20-1989 ANNUAL PCP TEAM CHRONIC DISEASE VISIT ANNUAL PCP TEAM CHRONIC DISEASE VISIT [facility] Start: 06-20-1989 Anxiety Screening Anxiety Screening [facility] Start: 06-20-1989 BP Controlled (<130/80) BP Controlled (<130/80) [facility] Start: 06-20-1989 Hepatitis B surface antibody level LDL CHOLESTEROL [facility] Start: 06-20-1989 HEPATITIS C SCREENING HEPATITIS C SCREENING [facility] Start: 06-20-1989 Hepatitis C screening Hepatitis C Screening [facility] Start: 06-20-1989 HIV SCREENING HIV SCREENING [facility] Start: 06-20-1989 HIV screening HIV Screening [facility] Start: 06-20-1989 SPIROMETRY SPIROMETRY [facility] Start: 06-20-1981 3 comp foot exam completed DIABETIC FOOT EXAM [facility] Start: 06-20-1981 Diabetic foot examination Diabetic Foot Exam [facility] Start: 06-20-1981 Hepatitis B screening URINE ALBUMIN:CREATININE RATIO [facility] Start: 06-20-1981 Hepatitis C antibody, confirmatory test DILATED RETINAL EXAM [facility] Start: 06-20-1977 PNEUMOCOCCAL (1 - PCV) PNEUMOCOCCAL (1 - PCV) [facility] Start: 06-20-1977 Pneumococcal vaccination Pneumococcal Vaccine (1 of 2 - PCV) [facility] Start: 06-20-1976 COVID-19 VACCINE (#1) COVID-19 VACCINE (#1) [facility] Start: 06-20-1976 Hemoglobin A1c measurement HbA1C [facility] Start: 06-20-1976 Hemoglobin A1c/Hemoglobin.total in Blood HBA1C [facility] Start: 1970 COVID-19 VACCINE (#1) COVID-19 VACCINE (#1) [facility] Start: 1970 HEPATITIS B (1 of 3 - 3-dose series) HEPATITIS B (1 of 3 - 3-dose series) [facility] Bacteria identified in Urine by Culture Urine Culture [facility] Work Phone: Lactate dehydrogenas e [Enzymatic activity/volume] in Body fluid by Pyruvate to lactate reaction [facility] Patient Education [facility] Work Phone: Patient referral [facility] Work Phone: pH of Body fluid [facility] Protein [Mass/volume ] in Body fluid [facility] Immunizations Immunization Date Immunization Notes Care Provider Fa [facility] 03-08-2020 influenza, injectabl e, quadrivalent, preservative free Dr. Sapna Ray DO Work Phone: [facility] 03-08-2020 influenza, seasonal, injectable Dr. Sapna Ray Work Phone: [facility] Work Phone: 03-08-2020 influenza virus vaccine, unspecified formulation [facility] Work Phone: [facility] Payers Date Payer Category Payer Self-pay [id number] 2016 Unknown [id number] 2011 Medicaid [employer] [id number] 2011-Present [phone] [address] [place] [address] Medicaid [id number] 2011 Medicaid [id number] Unknown [id number] Unknown [id number] Unknown [id number] Social History Date Type Detail Facility [facility] Work Phone: Start: 07-09-2021 End: 03-30-2022 Tobacco smoking status CTIS Unknown if ever smoked [facility] Work Phone: Start: 09-07-2019 Spouse/ Signif icant Other [facility] Start: 09-07-2019 Non-smoker [facility] Start: 1970 Sex Assigned At Female W [facility] Start: 01-22-2015 End: 10-18-2024 Tobacco smoking status NHIS Ex-smoker [facility] End: 01-16-1989 History of tobacco use Current smoker [facility] Start: 08-29-2021 End: 07-18-2024 Alcohol intake Current drinker of alcohol (finding) [facility] Start: 1970 Sex Assigned At Not on file C [facility] Start: 08-19-2021 End: 02-04-2022 Exposure to SARS-CoV-2 (event) Not sure [facility] Work Phone: End: 01-16-1989 History of tobacco use Cigarette Smoker [facility] Start: 01-22-2015 Tobacco use and exposure Smokeless tobacco non-user [facility] Start: 08-29-2021 End: 05-02-2022 History of Social function [facility] Start: 08-29-2021 End: 05-02-2022 Tobacco use panel [facility] National Score (1-100), lower number is lower risk 92 [facility] Medical Equipment Procedure Code Equipment Code Equipment Origin al Text Equipment Identifier Dates four times daily . Use as instructed Comment on above: four times daily. Us e as instructed Functional Status Date Assessment Result Facility 04-23-2021 Functional status Up ad bryce [facility] Work Phone: 04-09-2021 Functional status Up ad bryce;Bathroom Priv [facility] Work Phone: 03-24-2021 Functional status Ambulates;Bathroom Priv [facility] Work Phone: Mental Status Date Assessment Result Facility 03-30-2022 Cognitive function Level Of Cons ciousness Drowsy;Lethargic [facility] Work Phone: 10-30-2021 Cognitive function Level Of Cons ciousness Awake;Alert;Appropriate;Follow s Commands [facility] Work Phone: 04-23-2021 Cognitive function Voice/Name [facility] Work Phone: 04-09-2021 Cognitive function Voice/Name [facility] Work Phone: 03-24-2021 Cognitive function Voice/Name [facility] Work Phone: Clinical Notes 05-23-2015 to 10-18-2024 Merry Medrano, TUBULAR RIVETER.[facility] - 07/18/2024 10:03 AM EDTPatient InstructionsWarren Blanco MD - 02/04/2022 11:30 AM EDTPatient Chato Alvarado MD - 08/29/2021 11:33 AM EDT Note Date & Type Note Facility 10-18-2024 History and physi gautam note [facility] 10-18-2024 Radiology Diagnostic study note [facility] Imaging Services [address] [place], [place] [address] CTA Chest W/WO Contrast MR#: [id number] Acct: [id number] Name: MARIA ISABEL VANN Rep #: [id number] : [id number] F 54 From: Coby Herrera MD PCP: Dr. Sapna Ray DO Status: REG ER Study:CTA Chest W/WO Contrast Date of Exam: 10/18/24 Exam# [id number] Ordering Dr: Satya Boyd DO EXAM: CT Angiography Chest Without and With Intravenous Contrast CLINICAL INDICATION: PE TECHNIQUE: Axial computed tomographic angiography images of the chest without and with intravenous contrast. This CT exam was performed using one or more of the following dose reduction techniques: automated exposure control, adjustment of the mA and/or kV according to patient size, and/or use of iterative reconstruction technique. MIP reconstructed images were created and reviewed. COMPARISON: No relevant prior studies available. FINDINGS: LIMITATIONS: Suboptimal opacification of the pulmonary arteries. PULMONARY ARTERIES: No pulmonary embolism is identified. Some of the distal pulmonary arteries cannot be evaluated due to suboptimal opacification. AORTA: No acute findings. No thoracic aortic aneurysm. LUNGS AND PLEURAL SPACES: Bilateral pleural effusions with compressive atelectasis and scattered ground-glass attenuation could represent pulmonary edema and/or multifocal pneumonia. No mass. HEART: Unremarkable. No cardiomegaly. No significant pericardial effusion. No evidence of RV dysfunction. BONES/JOINTS: No acute fracture. No dislocation. SOFT TISSUES: Unremarkable. LYMPH NODES: Unremarkable. No enlarged lymph nodes. CT/CTA Chest W/WO Contrast IMPRESSION: 1. No pulmonary embolism is identified. Some of the distal pulmonary arteries cannot be evaluated due to suboptimal opacification. 2. Bilateral pleural effusions with compressive atelectasis and scattered ground-glass attenuation could represent pulmonary edema and/or multifocal pneumonia. Reading Location: [facility] CC: Dr. Satya Mendenhall DO; Dr. Sapna Ray DO ~ [facility] [employer] [facility]: Signed [facility] 10-18-2024 Radiology Diagnostic study note [facility] Imaging Services [address] [place], [place] [id number] Chest PA and Lateral MR#: [id number] Acct: [id number] Name: MARIA ISABEL VANN Rep #: [id number] : 1970 F 54 From: Coby Herrera MD PCP: Dr. Sapna Ray DO Status: REG ER Study:Chest PA and Lateral Date of Exam: 10/18/24 Exam# [id number] Ordering Dr: Satya Boyd DO EXAM: XR Chest, 2 Views CLINICAL INDICATION: SHORTNESS OF BREATH TECHNIQUE: Frontal and lateral views of the chest. COMPARISON: No relevant prior studies available. FINDINGS: LUNGS AND PLEURAL SPACES: Pulmonary congestion and edema. Pneumonia cannot be excluded. No pneumothorax. HEART: Unremarkable. No cardiomegaly. MEDIASTINUM: Unremarkable. Normal mediastinal contour. BONES/JOINTS: Unremarkable. No acute fracture. RAD/Chest PA and Lateral IMPRESSION: Pulmonary congestion and edema. Pneumonia cannot be excluded. [facility] CC: Dr. Satya Mendenhall DO; Dr. Sapna Ray DO ~ [facility] [employer] [facility]: Signed [facility] 07-18-2024 Note HNO ID: [id number] Author: MERRY MEDRANO APRN.SALES SERVICE TECHNICIAN Service: ? Author Type: Nurse Practitioner Type: Progress Notes Filed: 07/18/2024 10:05 Note Text: [facility] Subjective Maria Isabel Vann is a 54 year old year old who presents to express care today with complaint of Sinus congestion with cough x 12 days not improving. Denies fever, sore throat, shortness of breath, chest pains, Nausea, vomiting, changes in bowel or bladder or skin rashes. Taking Numerous cough, cold, allergy and sinus medications. Aside from symptoms as described above, patient has no other complaints at this time. HPI: see above Review of Systems Constitutional: Positive for fatigue. Negative for chills and fever. HENT: Positive for congestion, ear pain (Right ear), postnasal drip, rhinorrhea (yellow thick) and sinus pressure. Negative for sore throat and trouble swallowing. Eyes: Negative for pain, discharge, redness and itching. Respiratory: Positive for cough. Negative for chest tightness, shortness of breath and wheezing. Cardiovascular: Negative for chest pain, palpitations and leg swelling. Gastrointestinal: Negative for diarrhea, nausea and vomiting. Genitourinary: Negative for dysuria, frequency and urgency. Musculoskeletal: Negative for myalgias. Skin: Negative for rash. Neurological: Positive for headaches. Hematological: Negative for adenopathy. ALLERGIES Allergen Reactions Lodine [Etodolac] Swelling Seasonal Allergies Itching Current Outpatient Medications on File Prior to Visit Medication Sig erythromycin (ROMYCIN) 5 mg/gram (0.5 %) ophthalmic ointment Use 1 application in both eyes daily at bedtime. ondansetron (ZOFRAN) 8 mg tablet DULoxetine (CYMBALTA) 60 mg capsule levocetirizine dihydrochloride (XYZAL ORAL) Take by mouth. insulin aspart (NOVOLOG) 100 unit/mL soln Inject 30 Units subcutaneously once daily. Before meals aspirin, enteric coated (ASPIRIN, ENTERIC COATED) 81 mg EC tablet Take 81 mg by mouth once daily. fenofibrate (LOFIBRA) 67 mg capsule Take [...] Take 10 mg by mouth once daily. No current facility-administered medications on file prior to visit. 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 Physical Exam Constitutional: General: She is not in acute distress. Appearance: Normal appearance. She is not ill-appearing or toxic-appearing. HENT: Head: Normocephalic and atraumatic. Right Ear: Ear canal and external ear normal. Left Ear: Ear canal and external ear normal. Nose: Congestion and rhinorrhea present. Rhinorrhea is purulent. Right Turbinates: Enlarged, swollen and pale. Left Turbinates: Enlarged, swollen and pale. Right Sinus: Maxillary sinus tenderness and frontal sinus tenderness present. Left Sinus: Maxillary sinus tenderness and frontal sinus tenderness present. Mouth/Throat: Lips: [place]. Mouth: Mucous membranes are moist. Pharynx: Oropharynx is clear. Posterior oropharyngeal erythema present. No oropharyngeal exudate. Eyes: Extraocular Movements: Extraocular movements intact. Conjunctiva/sclera: Conjunctivae normal. Pupils: Pupils are equal, round, and reactive to light. Cardiovascular: Rate and Rhythm: Normal rate and regular rhythm. Pulses: Normal pulses. Heart sounds: Normal heart sounds. Pulmonary: (more content not included)... [facility] 07-18-2024 History of Present illness Narrative Images from the original note were not included. [facility] NOTE Subjective Maria Isabel Vann is a 54 year old year old who [facility] with complaint of Sinus congestion with cough x 12 days not improving. Denies fever, sore throat, shortness of breath, chest pains, Nausea, vomiting, changes in bowel or bladder or skin rashes. Taking Numerous cough, cold, allergy and sinus medications. Aside from symptoms as described above, patient has no other complaints at this time. HPI: see above Review of Systems Constitutional: Positive for fatigue. Negative for chills and fever. HENT: Positive for congestion, ear pain (Right ear), postnasal drip, rhinorrhea (yellow thick) and sinus pressure. Negative for sore throat and trouble swallowing. Eyes: Negative for pain, discharge, redness and itching. Respiratory: Positive for cough. Negative for chest tightness, shortness of breath and wheezing. Cardiovascular: Negative for chest pain, palpitations and leg swelling. Gastrointestinal: Negative for diarrhea, nausea and vomiting. Genitourinary: Negative for dysuria, frequency and urgency. Musculoskeletal: Negative for myalgias. Skin: Negative for rash. Neurological: Positive for headaches. Hematological: Negative for adenopathy. ALLERGIES Allergen Reactions Lodine [Etodolac] Swelling Seasonal Allergies Itching Current Outpatient Medications on File Prior to Visit Medication Sig erythromycin (ROMYCIN) 5 mg/gram (0.5 %) ophthalmic ointment Use 1 application in both eyes daily at bedtime. ondansetron (ZOFRAN) 8 mg tablet DULoxetine (CYMBALTA) 60 mg capsule levocetirizine dihydrochloride (XYZAL ORAL) Take by mouth. insulin aspart (NOVOLOG) 100 unit/mL soln Inject 30 Units subcutaneously once daily. Before meals aspirin, enteric coated (ASPIRIN, ENTERIC COATED) 81 mg EC tablet Take 81 mg by mouth once daily. fenofibrate (LOFIBRA) 67 mg capsule Take [...] Take 10 mg by mouth once daily. No current facility-administered medications on file prior to visit. 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 Appearance: Normal appearance. She is not ill-appearing or toxic-appearing. HENT: Head: Normocephalic and atraumatic. Right Ear: Ear canal and external ear normal. Left Ear: Ear canal and external ear normal. Nose: Congestion and rhinorrhea present. Rhinorrhea is purulent. Right Turbinates: Enlarged, swollen and pale. Left Turbinates: Enlarged, swollen and pale. Right Sinus: Maxillary sinus tenderness and frontal sinus tenderness present. Left Sinus: Maxillary sinus tenderness and frontal sinus tenderness present. Mouth/Throat: Lips: [place]. Mouth: Mucous membranes are moist. Pharynx: Oropharynx is clear. Posterior oropharyngeal erythema present. No oropharyngeal exudate. Eyes: Extraocular Movements: Extraocular movements intact. Conjunctiva/sclera: Conjunctivae normal. Pupils: Pupils are equal, round, and reactive to light. Cardiovascular: Rate and Rhythm: Normal rate and regular rhythm. Pulses: Normal pulses. Heart sounds: Normal heart sounds. Pulmonary: Effort: Pulmonary effort is normal. Breath sounds: Normal breath sounds. Abdominal: General: Bowel sounds are normal. Palpations: Abdomen is soft. Musculoskeletal: Cervical back: Normal range of motion and neck supple. Skin: General: Skin is warm. Capillary Refill: Capillary refill takes less than 2 seconds. Neurological: General: No focal deficit present. Mental Status: She is alert and oriented to person, place, and time. Assessment/Plan 1. Bacterial sinusitis (Primary) - sodium chloride (SALINE MIST) 0.65 % nasal spray; Use 1 spray in the nose four times a day as needed for cold/allergy symptoms. Dispense: 88 mL; Refill: 2 2. Antibiotic-induced yeast infection - fluconazole (DIFLUCAN) 150 mg tablet; Take 1 tablet by mouth one time only for 1 dose. Repeat in 3 days as needed. Dispense: 2 tablet; Refill: 0 Patient advised to drink fluids, get rest and take all meds as prescribed. Patient given educational materials - see instructions. Discussed use, benefit, and side effects of prescribed medications. All questions answered. Patient advised to follow up with PCP in one week, or sooner if symptoms worsen or persist. If symptoms become severe- GO TO ED. Patient verbalized understanding and agreeable with treatment plan. Merry Medrano APRN, CNP 07/18/2024 10:03 AM documented in this encounter [facility] 07-18-2024 Instructions Merry Medrano APRN.VERENICE - 07/18/2024 10:02 AM EDT Each of us has four paired cavities (spaces) in our head that are connected to the nose by narrow channels. These cavities, known as sinuses, produce a thin mucus that drains out of the channels of the nose. Normally, sinuses are filled with air. But when sinuses become blocked and filled with fluid, bacteria can grow and cause an infection (sinusitis). Conditions that cause sinus blockage include the common cold, allergic rhinitis (swelling of the lining of the nose due to allergies), nasal polyps (small growths in the lining of the nose), or deviated septum (a shift in the nasal cavity). Allergies such as hay fever can also cause swelling and poor drainage of the sinuses. If you have symptoms that involve the sinuses, it may be difficult to tell if you have sinusitis, a cold, or a nasal allergy. This article will describe the symptoms, diagnosis, and treatment of sinusitis, and how to distinguish sinusitis from a cold or nasal allergy. What is sinusitis? Sinusitis is an inflammation, or swelling, of the tissue lining the sinuses. There are two types of sinusitis: Acute sinusitis: a sudden onset of cold symptoms such as runny nose, stuffy nose, and facial pain that does not go away after 7-10 days. It responds well to antibiotics and decongestants. Chronic sinusitis: characterized by nasal congestion, drainage, facial pain/pressure, and decreased sense of smell for at least 12 weeks. Who gets sinusitis? About 37 million Americans suffer from at least one episode of sinusitis each year. People who have the following conditions have a higher risk of sinusitis: Nasal mucus membrane swelling, as from a common cold Blockage of drainage ducts Structure differences that narrow the drainage ducts Conditions that result in an increased risk of infection In children, common environmental factors that contribute to sinusitis include allergies, illness from other children at day care or school, pacifiers, bottle drinking while lying on the back, and smoke in the environment. In adults, the contributing factors are most frequently infections, allergies, and smoking. What are the signs and symptoms of acute sinusitis? The primary symptoms of acute sinusitis include: Facial pain/pressure Nasal stuffiness Nasal discharge Loss of smell Cough/congestion Additional symptoms may include: Fever Bad breath Fatigue Dental pain Acute sinusitis can last four weeks or more. This condition may be diagnosed when a person has two or more symptoms and/or the presence of thick, green, or yellow nasal discharge. What are the signs and symptoms of chronic sinusitis? People with chronic sinusitis may have the following symptoms for 12 weeks or more: Facial congestion/fullness A nasal obstruction/blockage Pus in the nasal cavity Fever Nasal discharge/discolored postnasal drainage Additional symptoms may include: Headaches Bad breath Fatigue Dental pain Thick nasal discharge How is sinusitis treated? Acute sinusitis. If you have a simple sinusitis infection, your health care provider may recommend treatment with decongestants like Sudafed and steam inhalations alone, as most sinusitis is viral. Antibiotics are generally needed for more seriously ill patients. If antibiotics are administered, they are given for 10 to 14 days. With treatment, the symptoms usually disappear and antibiotics are no longer required. Oral and topical decongestants may be prescribed to alleviate the symptoms. Use of prescription intranasal steroid sprays might be effective in controlling symptoms. However, non-prescription drops or sprays should not be used beyond their recommended period--usually four to five days--or they may actually increase congestion. Chronic sinusitis. Warm moist air may alleviate sinus congestion. Using a vaporizer or inhaling steam from a kelly of boiling water (removed from heat) may also help. Warm compresses are useful to relieve pain in the nose and sinuses. Saline nose drops are also safe for home use. Nonprescription drops or sprays might be effective in controlling symptoms; however, they should not be used beyond their recommended period of time. Nasal steroid sprays that shrink swollen membranes of the nose are beneficial. Antibiotics may also be prescribed. Avoidance of triggers is important. Allergies should be controlled and irritants, such as smoke, should be avoided. documented in this encounter [facility] 01-16-2024 Note [facility] Medical Records Department [address] [place] [id number] Discharge Summary 01/16/24 1410 MR#: [id number] Acct: [id number] Name: MARIA ISABEL VANN Rep #: [id number] : 1970 53 From: J Luis Diaz MD PCP: Dr. Sapna Ray DO Status:DIS IN [place] [facility] [id number] Providers Date of Admission: 01/15/24 Primary Care Physician: Dr. Sapna Ray DO Reason For Visit: HYPERGLYCEMIA Diagnosis Discharge Diagnosis (1) Hyperglycemia: Status: Acute Code(s): R73.9 - Hyperglycemia, unspecified Medications at Discharge Home Medications omeprazole 20 mg capsule,delayed release 20 mg PO DAILY gerd 03/23/21 duloxetine 60 mg capsule,delayed release 60 mg PO BID depression 04/07/21 fenofibrate micronized 67 mg capsule 67 mg PO BID HLD 04/07/21 aspirin 81 mg tablet 81 mg PO DAILY heart health 04/19/21 insulin lispro 100 unit/mL subcutaneous pen (Humalog KwikPen (U-100) Insulin) 20 unit (0.2 mL) subcut TIDAC blood suagr 30 days #18 mL 04/23/21 cholecalciferol (vitamin D3) 1,250 mcg (50,000 unit) capsule 1,250 mcg PO QWEEK vitamin 05/22/21 diphenhydramine HCl 25 mg capsule (Benadryl) 50 mg PO BID PRN Itching 05/22/21 ondansetron HCl 8 mg tablet 8 mg PO Q8H PRN Nausea 05/22/21 insulin glargine 100 unit/mL (3 mL) subcutaneous pen (Lantus Solostar U-100 Insulin) 50 - 75 units subcut BID blood sugar 10/30/21 metformin 500 mg tablet,extended release 24 hr 1,000 mg PO BID diabetes 12/07/23 Hospital Course Operations None Procedures - (I D) Summary of Care Provided Minutes Spent on Discharge: 34 Hospital Course: Per HPI: MARIA ISABEL VANN, is a 53 F with history of diabetes, GERD, fibromyalgia who presented to [facility] ED 01/15/2024 feeling unwell since this morning. Reports that she has been sick off and on and will have 3 days where she just does not want to get out of bed and has fibro flares because she has been feeling generally unwell she has not been taking her insulin. Today she was at her mom's and suddenly became lightheaded and felt like she Stumbling and mumbling prompting her to come to the ED. She endorses she has had a boil in her left groin for 2 weeks that is progressively gotten bigger more so over the past few days. Saw her PCP on Thursday and was started on Doxy but due to feeling unwell today being concerned that her glucose was elevated she presented to the ED. In the ED glucose was indeed 42 however patient not in DKA. In the ED left groin was I D and pus was expressed and sent for culture, patient placed on Unasyn and hospitalist contacted for admission. Patient reports history as above, reports she is feeling much better now. Does not think she has had any fevers, does at times get a dry cough but thinks that is from having dry mouth. Had been feeling unwell and tired and nauseous but not feeling that way at this time. Reports she had been taking her insulin she was not feeling like taking her insulin but she did take it this morning because of how she was feeling. Hospital Course: 1. Left pubic abscess status post I D???53-year-old female presented to the hospital with a left pubic abscess. She had seen her PCP who did not want to nehemias it in the office thinking that it would rupture on its own. She presented to the hospital couple days later with had not ruptured. She was on doxycycline at home and it only taken about a day and a half of the prescription prior to coming into the hospital. The abscess was lanced and she immediately felt better, today she felt back to baseline, there is just a little bit of redness and edema. I discussed with her the possibility for discharge despite not having any cultures back and she expressed understanding of the risk benefits going home and would like to go home today. She has most of her doxycycline prescription left at home to complete as well as a prescription for Diflucan for post antibiotic yeast infection. I discussed with her the need to follow-up with her PCP in 3 to 5 days and to let her PCP know to reach out to the hospital in 48 to 72 hours to obtain culture data if necessary. She is feeling so well today that she did not feel like she needed narcotics for the wound on discharge. 2. Type 2 diabetes, fibromyalgia, GERD, chronic fatigue syndrome are chronic medical conditions which complicate her care. Her home medications were continued where appropriate Physical Exam Narrative General: Alert, Oriented x3, Cooperative, No apparent distress HEENT: Atraumatic, PERRLA, EOMI, Normocephalic Oral: Moist Mucosa Neck: Supple, No JVD Lungs: Clear to auscultation, Normal air movement, No rhonchi, No wheeze, No rales Cardiovascular: Regular rate, Regular Rhythm, Normal S1, Normal S2, No murmurs Abdomen: Soft, Non Tender, Non-Distended, No Hepato-splenomegaly Extremities: No edema, Capillary Refill Less than 3 Se (more content not included)... [facility] 03-30-2022 Hospital Discharge instructions Additional Instructions Creatinine 1.68 up from 1.37 in October. Normal prior to that. Drink fluids at home for hydration. Follow-up with your doctor recheck labs. Sodium 132. Return if any worsening symptoms. [facility] Work Phone: 02-04-2022 History of Present illness Narrative ASSESSMENT/PLAN: [...] and treatment options. documented in this encounter [facility] 02-04-2022 Instructions Warren Blanco MD - [...] any questions please contact our office at [phone]. After office hours or on the weekend, please call Dr. Blanco on his cell phone at [phone]. documented in this encounter [facility] 10-30-2021 Hospital Discharge instructions Additional Instructions Your blood pressure improved with IV fluids. Your creatinine 1.36 today your previous 0.96 over a month ago. Continue oral fluids at home. You may want to hold your Relafen and use Tylenol as needed for pain. Follow-up with your doctor recheck labs as an outpatient. [facility] Work Phone: 08-29-2021 History of Present illness Narrative Patient [...] impingement with radicular symptoms, peripheral neuropathy, [place]. Continue management with primary care. Hospital and ER records are not readily available for review and chronic pain management is beyond the scope of care available in [facility]. Júnior Alvarado MD documented in this encounter [facility] 05-23-2015 History of Past i llness Narrative Problem Noted Date Resolved Date Second degree uterine prolaps 05/23/2015 Cystocele, midline 05/23/2015 07/06/2015 ASCUS with positive high risk HPV 01/22/2015 07/06/2015 Menorrhagia with irregular cycle 01/22/2015 07/06/2015 Irregular menstrual cycle 01/22/20152015 documented as of this encounter (statuses as of 08/29/2021) [facility] History of Past illness Narrative* Problem Noted Date Resolved Date Second degree uterine prolaps 05/23/2015 Cystocele, midline 05/23/2015 07/06/2015 ASCUS with positive high risk HPV 01/22/2015 07/06/2015 Menorrhagia with irregular cycle 01/22/2015 07/06/2015 Irregular menstrual cycle 01/22/20152015 documented as of this encounter (statuses as of 02/04/2022) [facility] No data available for this section [facility] Evaluation note* Diagnosis Onset Date Resolution Status Acute hyponatremia resolved Diabetic ketoacidosis resolv ed Pneumonia due to 2019-nCoV r esolved Bilateral pneumonia acute HLD (hyperlipidemia) acute Hypoxia resolved Sinus tachycardia resolved [facility] Work Phone: Evaluation note* Diagnosis Rib pain on left side- Primary Chest pain, unspecified Acute pain of right knee Leg weakness, bilateral Other musculoskeletal symptoms referable to limbs Chronic bilateral low back pain with bilateral sciatica documented in this encounter [facility] noteNo assessment information availableWCincinnati [facility] Work Phone: Evaluation note* Diagnosis Onset Date Resolution Status COVID-19 tadeo johnson manifesting chronic fatigue 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, 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 acute Sciatica of right side acute [facility] Work Phone: Evaluation note* Diagnosis Onset Date Resolution Status COVID-19 tadeo johnson manifesting chronic fatigue 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, 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 acute Sciatica of right side acute Diabetic neuropathy associat ed with type 2 diabetes mellitus acute [facility] Work Phone: Evaluation note* Diagnosis Type 2 diabetes mellitus with [...] unspecified depression [facility] Diagnosis Onset Date Resolution Status Diabetic neuropathy associat ed with type 2 diabetes mellitus acute [facility] Work Phone: Evaluation note* Diagnosis Rib pain on left side Chest pain, unspecified Acute pain of right knee [facility] Diagnosis Bacterial sinusitis- Primary Unspecified sinusitis (chronic) Antibiotic-induced yeast infection Candidiasis of unspecified site [facility] Diagnosis Onset Date Resolution Status Admit Date Diabetes mellitus acute October 182024 1:48pm Pleural effusion acute October h2024 1:48pm CHF exacerbation chronic October h, 2024 1:48pm [facility] Work Phone: History and physical note Author Darvin Posey [facility] Note Date/Time October 18, 2024 2:03 pm [facility] Medical Records Department [address] [place] [id number] H&P Exam - Hospitalist 10/18/24 1354 MR#: [id number] Acct: [id number] Name: MARIA ISABEL VANN Rep #:[id number] : 1970 54 From: Darvin Posey DO PCP: Dr. Sapna Ray DO Status:REG ER Location: ED HPI - General General Date of Service: 10/18/24 Chief Complaint: Shortness of breath HPI Narrative MARIA ISABEL VANN, is a 54 F who presents presents with recent onset of shortness of breath. Patient went to sleep last night and woke up very short of breath having to lean forward gasping for breath. States that she has been more short of breath over the past week. Patient has neuropathy of her legs so does not exercise nor walk very far but she just been noticeably more short of breath recently. She denies any fever chills nor any lower extremity edema. Denies any recent weight changes well. But because of her shortness of breath she should present to the emergency room. She did have an elevated D-dimer and she underwent a CT angiogram of her chest. There is no pulmonary embolism. Was pulmonary vascular congestion as well as to bilateral large effusions on her chest CT. [facility] Medical History (Updated 10/18/24 @ 13:[address] Darvin Posey, DO) Diabetes mellitus HLD (hyperlipidemia) Sleep apnea Anxiety Hypoxia Pneumonia due to COVID-19 virus Diabetes mellitus BERKLEY (acute kidney injury) Multiple falls Fibromyalgia Former smoker Lumbar back pain Intertrigo Excessive body weight loss Panniculitis Abdominal panniculus, symptomatic Bursitis Fibromyalgia Vitamin deficiency Vision problems ULCERS GERD (gastroesophageal reflux disease) Osteoarthritis Headache Depression Diabetes Carpal tunnel syndrome Back problem Arthritis Seasonal allergic conjunctivitis Home Medications ?Medication ?Instructions ?Recorded ?Last Taken ?Type omeprazole 20 mg capsule,delayed 20 mg PO DAILY gerd 1 05/24/20 04/06/21 History release duloxetine 60 mg capsule,delayed 60 mg PO BID depressi on 04/07/21 Unknown History release fenofibrate micronized 67 mg 67 mg PO BID HLD 04/07/21 Unknown History capsule aspirin 81 mg tablet 81 mg PO DAILY heart health 04/19/21 Unknown History insulin lispro 100 unit/mL 20 unit (0.2 mL) subcut TID AC 04/23/21 Unknown Rx subcutaneous pen (Humalog KwikPen blood suagr 30 days #18 mL (U-100) Insulin) cholecalciferol (vitamin D3) 1,250 1,250 mcg PO QWEEK vitamin 05/22/21 Unknown History mcg (50,000 unit) capsule diphenhydramine HCl 25 mg capsule 50 mg PO BID PRN Itc carrie 05/22/21 Unknown History (Benadryl) ondansetron HCl 8 mg tablet 8 mg PO Q8H PRN Nausea Unknown History insulin glargine 100 unit/mL (3 50 - 75 units subcut B ID blood 10/30/21 Unknown History mL) subcutaneous pen (Lantus sugar Solostar U-100 Insulin) metformin 500 mg tablet,extended 1,000 mg PO BID diabe monica 12/07/23 Unknown History release 24 hr Lactobacillus acidophilus 0.5 mg 1 mg PO BID 10/18/24 Unknown History (100 million cell) tablet levocetirizine 5 mg tablet 5 mg PO DAILY 10/18/24 Unkn own History lisinopril 2.5 mg tablet 2.5 mg PO DAILY 10/18/24 Unk nown History pregabalin 150 mg capsule 150 mg PO BID 10/18/24 Unkno wn History sodium chloride 0.65 % nasal spray 1 spray intranasal 4X/DAY PRN PRN 10/18/24 Unknown History aerosol (Deep Sea Nasal) allergies Allergy/AdvReac Type Severity Reaction Status Date / Time etodolac (From [facility]) Allergy Rash Verified 01/15/24 12:24 Family History Mother Arthritis Hypertension Melanoma Father Arthritis Bleeding disorder Diabetes Heart disease High cholesterol Son Kidney disease H/O psychiatric care Uncle Alcoholism Liver disease Grandmother Arthritis Cancer Lung cancer Sister Epilepsy Melanoma Skin cancer Aunt CVA (cerebral vascular accident) Surgical History H/O knee surgery History of hysterectomy History of carpal tunnel surgery Social History household members: none housing: house Smoking Status: Former smoker how long ago did patient quit smoking: Quit ~ 30 years prior. alcohol intake: current alcohol intake frequency: holidays/special occasions only substance use type: does not use ROS ROS Narrative Stated that she did have some reflux about a week ago and then had some frothy sputum. Denies any emesis however. All review of systems were negative except as mentioned above in the history of present illness and the other review of systems. Vital Signs Vital Signs Vital Signs: 10/18/24 09:59 10/18/24 10:12 10/18/24 10:35 Temperature 36.1 C L Temperature Source Temporal Pulse Rate 117 H 114 H Respiratory Rate 24 H 24 H Respiratory Effort Short of Breath Respiratory Depth Shallow Respiratory Pattern Tachypnea Tachypnea Blood Pressure 152/88 H Blood Pressure Mean 109 Pulse Ox 91 Oxygen Delivery Method Room Air Room Air 10/18/24 11:00 10/18/24 11:15 10/18/24 11:15 Temperature Temperature Source Pulse Rate 106 H 111 H Respiratory Rate 17 16 Respiratory Effort Respiratory Depth Respiratory Pattern Blood Pressure 115/67 129/70 H 129/70 H Blood Pressure Mean 82 87 87 Pulse Ox 90 88 Oxygen Delivery Method 10/18/24 11:30 10/18/24 11:30 10/18/24 11:32 Temperature 36.4 C L Temperature Source Oral Pulse Rate 108 H 116 H Respiratory Rate 25 H 16 Respiratory Effort Respiratory Depth Respiratory Pattern Blood Pressure 132/79 H 132/79 H Blood Pressure Mean 94 96 Pulse Ox 93 91 Oxygen Delivery Method Room Air 10/18/24 12:00 10/18/24 12:00 10/18/24 12:30 Temperature 36.4 C L Temperature Source Temporal Pulse Rate 111 H 118 H 110 H Respiratory Rate 19 H 25 H 20 H Respiratory Effort Respiratory Depth Respiratory Pattern Blood Pressure 127/65 H 127/65 H 138/74 H Blood Pressure Mean 83 85 91 Pulse Ox 96 94 95 Oxygen Delivery Method Room Air 10/18/24 13:00 10/18/24 13:00 10/18/24 13:05 Temperature 36.3 C L 36.3 C L Temperature Source Temporal Pulse Rate 124 H 115 H 124 H Respiratory Rate 25 H 22 H 25 H Respiratory Effort Respiratory Depth Respiratory Pattern Blood Pressure 157/87 H 150/87 H 157/87 H Blood Pressure Mean 110 105 110 Pulse Ox 94 94 94 Oxygen Delivery Method Room Air Weight Weight: 89.358 kg Body Mass Index (BMI) 32.8 Physical Exam Narrative POCUS: Indication is for pleural effusions. Limited is no phased-array probe was available but the curvilinear with fast protocol patient had enlarged IVC that was not collapsible with inspiration. Noted bilateral pleural effusions. Kidneys grossly appeared normal. Heart was grossly normal with out any obvious pericardial effusions. - Physical Exam General: Alert, Oriented x3, Cooperative HEENT: Atraumatic, PERRLA, EOMI, Normocephalic Oral: Moist Mucosa, No Gingival or Mucosal Lesions/ Ulcerations Neck: Supple, No JVD, Negative Carotid Bruits Lungs: Diminished with dullness percussion in the bases bilaterally. Cardiovascular: Regular rate, Normal S1, Normal S2, No murmurs Abdomen: Bowel Sounds Present, Soft, Non Tender, Non-Distended, No Hepato-splenomegaly Extremities: No clubbing, No cyanosis, No edema, Capillary Refill Less than 3 Seconds Skin: No rashes, No breakdown Musculoskeletal: No Tenderness to Palpation of Joints or Extremities Neurological: Neuro grossly intact Psych/Mental Status: Normal Affect, Appropriate Results Lab / Micro Data Attestation: I reviewed the patient's lab results. 10/18/24 10:36 10/18/24 10:36 Labs: Laboratory Results - last 24 hr 10/18/24 10:36: WBC 5.7, RBC 3.49 L, Hgb 10.2 L, Hct 30.7 L, MCV 88.0, MCH 29.2,MCHC 33.2, RDW Std Deviation 44.6 H, RDW Coeff of Elio 14.4, Plt Count 178, MPV 10.3, Immature Gran % (Auto) 2.300 H, Neut % (Auto) 57.9, Lymph % (Auto) 28.6, Bremer % (Auto) 9.1, Eos % (Auto) 1.6, Baso % (Auto) 0.5, Absolute Neuts (auto) 3.3, Absolute Lymphs (auto) 1.63, Nucleated RBC % 0, D-Dimer Quant (PE/DVT) 1.60H*, Sodium 135, Potassium 5.3 H, Chloride 102, Carbon Dioxide 21.3, Anion Gap 12, BUN 37 H, Creatinine 1.01, Estim Creat Clear Calc 71.13, Est GFR (MDRD) Non-Af 67, BUN/Creatinine Ratio 36.8 H, Glucose 412 H, Lactic Acid 1.4, Calcium 8.7,Troponin T High Sens 33 H, NT pro BNP II 2429 H 10/18/24 12:42: Troponin T Hi Sens 2 Hr 34 H Micro: Microbiology 10/18/24 10:35 Mucosa - Nose SARS-CoV-2, Influenza & RSV (PCR) - Final EKG Initial EKG: Attestation: I personally reviewed and interpreted this EKG as follows: Prior EKG tracings: available for review EKG Rhythm Intrepretation: Sinus Rhythm (Bundle branch block) Imaging Radiology Impression Chest X-Ray 10/18/24 10:22 IMPRESSION: Pulmonary congestion and edema. Pneumonia cannot be excluded. Reading Location: [facility] Chest CTA 10/18/24 11:08 IMPRESSION: 1. No pulmonary embolism is identified. Some of the distal pulmonary arteries cannot be evaluated due to suboptimal opacification. 2. Bilateral pleural effusions with compressive atelectasis and scattered ground-glass attenuation could represent pulmonary edema and/or multifocal pneumonia. Reading Location: [facility] Assessment & Plan Assessment/Plan (1) CHF exacerbation: PLAN: Unclear type at present. Patient appears constipated though she does have a markedly large pleural effusions. I suspect these are more transudative however. Will initiate with IV furosemide 40 mg IV twice daily. Fluid restrict to 1.5 L/day. Daily weights. Check 2D echocardiogram. Based on the results of the echocardiogram if there is marked cardiomyopathy, will consult cardiology. (2) Pleural effusion: PLAN: Suspect transudative given the heart failure. Patient states that her father had a history of a very aggressive lung cancer. Will do a therapeutic thoracentesis but also analyze the fluid. As well as check serum LDH and protein at to determine whether or not this is transient versus exudative. (3) Diabetes mellitus: PLAN: Insulin-dependent. Will hold off on metformin given the CT angiogram thatsammy had received. Continue with her glargine as well as prandial insulin and add sliding scale insulin. Check an A1c. PLAN: Plan ADELINE: Patient had been diagnosed with ADELINE in the past. She has not used CPAP in years. Though she does state that she has lost considerable amount of weight since that time. Vies patient to follow-up with pulmonary to have a repeat polysomnogram as outpatient. Obesity class I: Complicates care and recovery. Hypertension: Continue with lisinopril. Fibromyalgia: Continue with duloxetine VTE prophylaxis with enoxaparin CODE STATUS: Addressed with patient. Patient wished to be full code. Charges/Coding Visit Charges Inpatient E&M: 98026 Init Hosp L3 10/18/24 1404 <Electronically signed by Darvin Posey DO> Cosigner Signature (if applicable): CC: Dr. Darvin Posey DO; Dr. Sapna Ray DO~ Signed [facility] Work Phone: Hospital Discharge instructions Additional Instructions As discussed, you can use Flexeril as a muscle relaxer instead of your Zanaflex. Please do not take the 2 together. After completing the course of Flexeril you can go back to your baseline Zanaflex.[facility] Work Phone: [facility] Work Phone: Hospital Discharge instructions No data available for this section [facility] progress note No data available for this section [facility] reason for referral (narrative)* Diagnostic Procedure Only (Urgent) - Closed Specialty Diagnoses / Procedures Referred By Contac t Referred To Contact XR IMAGING Diagnoses Acute pain of right knee Procedures XR KNEE GENERAL 4V AP BOTH/PA BOTH/LAT/MERC RIGHT RADIOLOGIC EXAM KNEE COMPLETE 4/MORE VIEWS Júnior Alvarado MD [address] [place] [address] Xr Imaging Referral ID Status Reason Start Date Expiration Date V isits Requested Visits Authorized [id number] Closed Auto-Generate d Referral 08/29/2021 09/28/2022 1 1 * Diagnostic Procedure Only (Urgent) - Closed Specialty Diagnoses / Procedures Referred By Contac t Referred To Contact XR IMAGING Diagnoses Rib pain on left side Procedures XR RIBS/CHEST 3V AP RIB/OBLS/CXR LEFT RADEX RIBS UNI W/POSTEROANT CH MINIMUM 3 VIEWS Júnior Alvarado MD [address] [place] [address] Xr Imaging Referral ID Status Reason Start Date Expiration Date V isits Requested Visits Authorized [id number] Closed Auto-Generate d Referral 08/29/2021 09/28/2022 1 1 [facility] for referral (narrative)* Diagnostic Procedure Only (Urgent) - Closed Specialty Diagnoses / Procedures Referred By Contac t Referred To Contact XR IMAGING Diagnoses Acute pain of right knee Procedures XR KNEE GENERAL 4V AP BOTH/PA BOTH/LAT/MERC RIGHT RADIOLOGIC EXAM KNEE COMPLETE 4/MORE VIEWS Júnior Alvarado MD [address] [place] [address] [place] [id number] Referral ID Status Reason Start Date Expiration Date V isits Requested Visits Authorized [id number] Closed Auto-Generate d Referral 08/29/2021 09/28/2022 1 1 * Diagnostic Procedure Only (Urgent) - Closed Specialty Diagnoses / Procedures Referred By Contac t Referred To Contact XR IMAGING Diagnoses Rib pain on left side Procedures XR RIBS/CHEST 3V AP RIB/OBLS/CXR LEFT RADEX RIBS UNI W/POSTEROANT CH MINIMUM 3 VIEWS Júnior Alvarado MD [address] [place] [id number] [place] [address] Referral ID Status Reason Start Date Expiration Date V isits Requested Visits Authorized [id number] Closed Auto-Generate d Referral 08/29/2021 09/28/2022 1 1 [facility]No reason for referral information availableWCincinnati [facility] Work Phone: Reason for visit Narrative* Diagnostic Procedure Only (Urgent) - Closed Specialty Diagnoses / Procedures Referred By Contac t Referred To Contact XR IMAGING Diagnoses Acute pain of right knee Procedures XR KNEE GENERAL 4V AP BOTH/PA BOTH/LAT/MERC RIGHT RADIOLOGIC EXAM KNEE COMPLETE 4/MORE VIEWS Júnior Alvarado MD [address] [place] [address] [place] [address] Referral ID Status Reason Start Date Expiration Date V isits Requested Visits Authorized [id number] Closed Auto-Generate d Referral 08/29/2021 09/28/2022 1 1 [facility] Chief Complaint and Reason for Visit Chief Complaint DKA DKA COVID PNEUMONIA DKA DKA DKA DKA DKA COVID 19 PNEUMONIA WITH SINUS TACHYCARDIA Shortness of breath COVID 19 PNEUMONIA WITH SINUS TACHYCARDIA COVID 19 PNEUMONIA WITH SINUS TACHYCARDIA COVID 19 PNEUMONIA WITH SINUS TACHYCARDIA COVID 19 PNEUMONIA WITH SINUS TACHYCARDIA PRIOR COVID WITH SUPERIMPOSED BACTERIAL PNA PRIOR COVID WITH SUPERIMPOSED BACTERIAL PNA PRIOR COVID WITH SUPERIMPOSED BACTERIAL PNA PRIOR COVID WITH SUPERIMPOSED BACTERIAL PNA PRIOR COVID WITH SUPERIMPOSED BACTERIAL PNA PRIOR COVID WITH SUPERIMPOSED BACTERIAL PNA PRIOR COVID WITH SUPERIMPOSED BACTERIAL PNA PRIOR COVID WITH SUPERIMPOSED BACTERIAL PNA PRIOR COVID WITH SUPERIMPOSED BACTERIAL PNA PRIOR COVID WITH SUPERIMPOSED BACTERIAL PNA PRIOR COVID WITH SUPERIMPOSED BACTERIAL PNA Hospital FU BACK SCIATICA PAIN Reason for Visit Acute hyponatremia Diabetic ketoacidosis Pneumonia due to 2019-nCoV Bilateral pneumonia HLD (hyperlipidemia) Hypoxia Sinus tachycardia Chief Complaint Hospital FU BACK SCIATICA PAIN right leg pain Chief Complaint BACK SCIATICA PAIN right leg pain Chief Complaint BACK SCIATICA PAIN right leg pain lumber spine hypotension Reason for Visit COVID-19 atdeo johnson manifesting chronic fatigue Diabetes 1.5, 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 Sciatica of right side Chief Complaint right leg pain lumber spine hypotension LUMBAR PAIN Lumbar spine Reason for Visit COVID-19 tadeo johnson manifesting chronic fatigue Diabetes 1.5, 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 Sciatica of right side Diabetic neuropathy associated with type 2 diabetes mellitus Chief Complaint lumber spine hypotension LUMBAR PAIN Lumbar spine Reason for Visit COVID-19 tadeo johnson manifesting chronic fatigue Diabetes 1.5, 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 Sciatica of right side Diabetic neuropathy associated with type 2 diabetes mellitus Chief Complaint LUMBAR PAIN Lumbar spine syncope Reason for Visit Diabetic neuropathy associated with type 2 diabetes mellitus Chief Complaint Admit Date CHF EXACERBATION October 18, 2024 1:48 pm Shortness of breath October 18, 2024 1:54 pm Reason for Visit Admit Date Diabetes mellitus October 18, 2024 1:48 pm Pleural effusion October 18, 2024 1:48 pm CHF exacerbation October 18, 2024 1:48 pm Family History Relationship Condition Age at Onset Recorded Date/T adin mother Arthritis Unknown Hypertension Unknown Malignant melanoma Unknown father Arthritis Unknown Hemorrhagic disorder Unknown Diabetes mellitus Unknown Cardiac disease Unknown High blood cholesterol Unknown son Kidney disorder Unknown History of psychiatric care Unknown uncle Alcoholism Unknown Disorder of liver Unknown grandmother Arthritis Unknown Malignant neoplasm Unknown Malignant neoplasm of lung Unknown sister Epilepsy Unknown Malignant neoplasm of skin Unknown aunt Cerebrovascular accident (CVA) Unknown Advance Directives Advance Directive Response Recorded Date/ Time Advance Directives No March 9:54am Living Will No July 09, 2021 8:11pm Power of Windows Desktop Engineer No July 09 8:11pm Advance Directive Response Recorded Date/ Time Advance Directives No March 9:54am Living Will No September 05, 2021 4 :29pm Power of Windows Desktop Engineer No September 05, 2021 4:29pm Advance Directive Response Recorded Date/ Time Advance Directives No October 18 12:08pm Living Will No October 30, 2021 12:52pm Power of Windows Desktop Engineer No October 30 12:52pm Advance Directive Response Recorded Date/ Time Advance Directives No October 18 11:08am Living Will No March 30, 2 022 1:56pm Power of Windows Desktop Engineer No March 30, 2022 1:56pm Advance Directive Response Recorded Date/ Time Do you have a Healthcare Power of Windows Desktop Engineer? No October 18, 2024 10:15am Advance Directives No October 18 12:08pm Summary Purpose Additional Source Comments Goals (unrecognized section and content) Goals may be documented in a n alternate sectionGoals may be documented in an alternate sectionGoals may be documented in an alternate sectionGoals may be documented in an alternate section No data available for this sectionGoals may be documented in an alternate sectionGoals may be documented in an alternate sectionGoals may be documented in an alternate sectionGoals may be documented in an alternate section Source Comments (unrecognize d section and content) In the event this informatio n is protected by the Federal Confidentiality of Alcohol and Drug Abuse Patient Records regulations: The Federal rules restrict any use of the information to criminally investigate or prosecute any alcohol or drug abuse patient.[facility] the event this information is protected by the Federal Confidentiality of Alcohol and Drug Abuse Patient Records regulations: The Federal rules restrict any use of the information to criminally investigate or prosecute any alcohol or drug abuse patient.[facility] the event this information is protected by the Federal Confidentiality of Alcohol and Drug Abuse Patient Records regulations: The Federal rules restrict any use of the information to criminally investigate or prosecute any alcohol or drug abuse patient.[facility] the event this information is protected by the Federal Confidentiality of Alcohol and Drug Abuse Patient Records regulations: The Federal rules restrict any use of the information to criminally investigate or prosecute any alcohol or drug abuse patient.[facility] Reason for Visit (unrecogniz ed section and content) Reason Comments Pain Pt reported fall/lif ting x6 days, (LT) rib pain rated 6, Pain (RT) leg pain rated 8, ongoing BS AM 187 Reason Comments Diabetic Retinopathy Follow Up Blurred Vision Left Eye Getting worse in last few years Reason Comments Cough Cough, congestion, H A and bodyaches x 12 days Care Teams (unrecognized sec tion and content) Professor Of German Relationship Specialty Start Date End Date Sapna Ray DO PCP - General 01/24/15 Professor Of German Relationship Specialty Start Date End Date Sapna Ray DO PCP - General 01/24/15 Professor Of German Relationship Specialty Start Date End Date Sapna Ray DO PCP - General 01/24/15 Professor Of German Relationship Specialty Start Date End Date Sapna Ray DO PCP - General 01/24/15 Team Status: Active Member Role/Relationship Status Dates Dr. Sapna Ray DO Primary Care Provider Active Team Status: Active Member Role/Relationship Status Dates Dr. Sapna Ray DO Primary Care Provider Active Start: October 18, 2024 Dr. Satya Mendenhall DO Emergency Provider Activ e Start: October 18, 2024 Dr. Darvin Posey DO Admit Provider Active Star t: October 18, 2024 Dr. Darvin Posey DO Attending Provider Active Start: October 18, 2024 Team Status: Active Member Role/Relationship Status Dates Dr. Sapna Ray DO Primary Care Provider Active Start: October 18, 2024 Dr. Satya Mendenhall DO Emergency Provider Activ e Start: October 18, 2024 Dr. Darvin Posey DO Attending Provider Active Start: October 18, 2024 Care Team (unrecognized sect ion and content) Care Team Personnel Name: RENE ZELAYA MD Member Role: Primary Care Physician Address: Address: [facility] [address] [facility] [address] [place] [id number]- Care Team Related Persons Name: EFFIE VANN Name: EFFIE VANN INFORMATION SOURCE (unrecogn ized section and content) DATE CREATED AUTHOR 02/13/2024 [facility] DATE CREATED AUTHOR 'S ORGANIZ ATION 07/18/2024 [facility] FOR RECORDS PERTAINING TO PATIENTS WHO [...] BE BASED ON THE PRIMARY CLINICAL RECORDS. [employer] provides no warranty or guarantee of the accuracy or completeness of information in this document.
[2024-10-19 03:20] VITALS: BP 121/85; PULSE 115; RESP 16; TEMP 36.4; O2SAT 92
[2024-10-19 05:53] LABS: Hematocrit 33.1 % (37-47); Hemoglobin 11.0 g/dL (12.0-15.0); Immature Granulocytes Count 0.110 X10^3/uL (0.0-0.0); Mean Corp Hgb Conc 33.2 g/dL (32-36); Mean Corpuscular Volume 88.3 fL (81-99); Mean Platelet Vol. 10.0 fl (6.2-12.0); NRBC Flagged by Analyzer 0 % (0-5); Platelet Count 199 K/mm3 (150-450); RBC Distribution Width CV 14.5 % (11.6-14.6); RBC Distribution Width SD 45.1 fl (35.1-43.9); Red Blood Count 3.75 M/mm3 (4.2-5.4); White Blood Count 6.5 K/mm3 (4.4-11.0)
[2024-10-19 06:27] LABS: AST(SGOT) 36 U/L (<=31); Alanine Aminotransfer ALT/SGPT 28 U/L (<=34); Albumin, Serum 3.3 g/dL (3.5-5.0); Alkaline Phosphatase 80 U/L (35-104); Anion Gap 11 (5-15); BUN 30 mg/dL (4-19); BUN/Creat Ratio 35.2 RATIO (10-20); Calcium,Total 9.0 mg/dL (7.6-11.0); Carbon Dioxide 22.2 mmol/L (21.0-32.0); Chloride 103 mmol/L (98-108); Estimated Creatinine Clearance 83.55 ml/min (50-250); Globulin 2.9 g/dL (2.2-4.2); Glucose 299 mg/dL (70-99); LDH 221 U/L (84-246); Potassium 5.0 mmol/L (3.3-5.1)
[2024-10-19] MEDS: Lactobacillis Acidophilus 1 CAP PO (08:18)
[2024-10-19] MEDS: Insulin Glargine-YFGN 100 UNIT/ML Pen 50 UNIT SC (08:18)
--- NOTE | 2024-10-19 08:47 | PN.HOSP_ITS ---
Reason for Visit Chief Complaint: Shortness of breath Objective Data Objective Data Vital Signs: Vital Signs Temp Pulse Resp BP Pulse Ox O2 Del Method 36.4 C L 115 H 16 121/85 H 92 Room Air 10/19/24 03:20 10/19/24 03:20 10/19/24 03:20 10/19/24 03:20 10/19/24 03:20 10/19/24 08:34 Oxygen Delivery Method Room Air Weight: 89.4 kg Body Mass Index (BMI) 32.8 Intake & Output: Intake and Output for Last 24 Hours 10/17/24 10/18/24 10/19/24 23:59 23:59 23:59 Intake Total 780 / 780 320 / 320 Balance 780 / 780 320 / 320 Lab / Micro Data 10/19/24 05:11 10/19/24 05:11 Labs: Laboratory Results - last 24 hr 10/18/24 10:36: WBC 5.7, RBC 3.49 L, Hgb 10.2 L, Hct 30.7 L, MCV 88.0, MCH 29.2, MCHC 33.2, RDW Std Deviation 44.6 H, RDW Coeff of Elio 14.4, Plt Count 178, MPV 10.3, Immature Gran % (Auto) 2.300 H, Neut % (Auto) 57.9, Lymph % (Auto) 28.6, [place] % (Auto) 9.1, Eos % (Auto) 1.6, Baso % (Auto) 0.5, Absolute Neuts (auto) 3.3, Absolute Lymphs (auto) 1.63, Nucleated RBC % 0, D-Dimer Quant (PE/DVT) 1.60 H*, Sodium 135, Potassium 5.3 H, Chloride 102, Carbon Dioxide 21.3, Anion Gap 12, BUN 37 H, Creatinine 1.01, Estim Creat Clear Calc 71.13, Est GFR (MDRD) Non- Af 67, BUN/Creatinine Ratio 36.8 H, Glucose 412 H, Lactic Acid 1.4, Calcium 8.7, Troponin T High Sens 33 H, NT pro BNP II 2429 H 10/18/24 12:42: Troponin T Hi Sens 2 Hr 34 H 10/18/24 17:09: POC Glucose 314 H 10/18/24 21:45: POC Glucose 276 H 10/19/24 05:11: WBC 6.5, RBC 3.75 L, Hgb 11.0 L, Hct 33.1 L, MCV 88.3, MCH 29.3, MCHC 33.2, RDW Std Deviation 45.1 H, RDW Coeff of Elio 14.5, Plt Count 199, MPV 10.0, Immature Gran % (Auto) 1.700 H, Neut % (Auto) 61.6, Lymph % (Auto) 26.5, [place] % (Auto) 7.7, Eos % (Auto) 2.0, Baso % (Auto) 0.5, Absolute Neuts (auto) 4.0, Absolute Lymphs (auto) 1.73, Nucleated RBC % 0, Sodium 136, Potassium 5.0, Chloride 103, Carbon Dioxide 22.2, Anion Gap 11, BUN 30 H, Creatinine 0.86, Estim Creat Clear Calc 83.55, Est GFR (MDRD) Non-Af 81, BUN/Creatinine Ratio 35.2 H, Glucose 299 H, Hemoglobin A1c 12.3 H, Calcium 9.0, Total Bilirubin 0.29, AST 36 H, ALT 28, Alkaline Phosphatase 80, Lactate Dehydrogenase 221, Total Protein 6.2, Albumin 3.3 L, Globulin 2.9, Albumin/Globulin Ratio 1.2, TSH 1.130 Micro: Microbiology 10/18/24 10:35 Mucosa - Nose SARS-CoV-2, Influenza & RSV (PCR) - Final Radiography Diagnostic Testing: Radiology Impression Chest X-Ray 10/18/24 10:22 IMPRESSION: Pulmonary congestion and edema. Pneumonia cannot be excluded. Reading Location: [facility] Chest CTA 10/18/24 11:08 IMPRESSION: 1. No pulmonary embolism is identified. Some of the distal pulmonary arteries cannot be evaluated due to suboptimal opacification. 2. Bilateral pleural effusions with compressive atelectasis and scattered ground-glass attenuation could represent pulmonary edema and/or multifocal pneumonia. Reading Location: [facility] Echocardiogram 10/18/24 15:00 Interpretation Summary Normal LV size. The left ventricular ejection fraction is 40 %. There is mild global hypokinesis of the left ventricle. Moderately severe (3+) eccentric mitral valve insufficiency. Contrast injection was performed. Ordering Physician: Darvin Posey Referring Physician: Sapna Ray Performed By: Loida Alvarez, NANCY, RVT Assessment & Plan Assessment/Plan (1) CHF exacerbation: PLAN: acute HFrEF. Global hypokinesis of the LV. Moderate-severe 3+ mitral valve insufficiency. Patient appears constipated though she does have a markedly large pleural effusions. I suspect these are more transudative however. Will initiate with IV furosemide 40 mg IV twice daily. Fluid restrict to 1.5 L/day. Daily weights. Discussed with Dr. Franklin of cardiology. Recommends outpatient follow-up in the cardiac office for further evaluation and management of her low EF. Will continue with lisinopril add carvedilol. (2) Pleural effusion: PLAN: Suspect transudative given the heart failure. Patient states that her father had a history of a very aggressive lung cancer. Patient had a therapeutic ultrasound removing 1.18 L. Patient felt better afterwards. Fluid came back consistent with transudative effusion. Is due to heart failure and this will need to be further optimized. (3) Diabetes mellitus: PLAN: Insulin-dependent. Hold metformin for [address] angiogram. Continue with her glargine as well as prandial insulin and add sliding scale insulin. A1c 12.6. Recommend patient follow-up with endocrinology. PLAN: Plan ADELINE: Patient had been diagnosed with ADELINE in the past. She has not used CPAP in years. Though she does state that she has lost considerable amount of weight since that time. Vies patient to follow-up with pulmonary to have a repeat polysomnogram as outpatient. Obesity class I: Complicates care and recovery. Hypertension: Continue with lisinopril. Fibromyalgia: Continue with duloxetine VTE prophylaxis with enoxaparin CODE STATUS: Addressed with patient. Patient wished to be full code.
[2024-10-19 09:20] VITALS: BP 146/87; PULSE 109; RESP 16; TEMP 36.7; O2SAT 95
--- NOTE | 2024-10-19 10:50 | CASEMGMT ---
RN CM Face to Face with patient for initial transition planning/care coordination assessment. RN CM introduced self and role at [facility]. Patient lying in bed, alert and oriented. Patient willing to participate in assessment and is able to answer all questions appropriately. Care providers, pharmacy, and demographics verified. Strata: 2 PCP: Cory Specialists: none Preferred Pharmacy: [facility] Insurance: [employer] Prescription Benefit: yes Living Will/HPOA: none LNOK: mother, 4 adult children Living Arrangements: Patient lives with her 4 adult children in a single story home, no steps to enter. Patient is independent at home. Transportation: Children DME/HHC: Patient has walker, wheelchair, pulse ox, and home oxygen through [employer]. No previous HHC or SNF. Patient wishes to discharge home, denies need for home health at this time. Patient states he has no further needs or concerns at this time. CM to follow for discharge planning needs that may arise. Disposition Plan: Patient to discharge home with family support and follow-up plan in place. Fabiana GUERRERO, RN, CM
[2024-10-19 13:28] VITALS: BP 159/72; PULSE 122; RESP 18; O2SAT 93
[2024-10-19] MEDS: Lidocaine 2% (20 ml mdv) 20 ML Vial INFILT (13:34)
--- NOTE | 2024-10-19 13:37 | FLU_PTH ---
PATIENT: EMILY CAGE LOC: [facility] U#:[id number] AGE/SX: 54/F ROOM: [facility] RE10/18/[address]: Dr. Darvin Posey DO : 1970 BED: 1 DIS: 10/19/2024 SPEC #: [id number] RECD: 10/19/24 14:00 STATUS: NENA TAVERA #: [id number] ENRIQUE: 10/19/24 13:[address]: Darvin Posey DEPT: CYTOLOGY RECD BY: Teresita Fox ENTERED: 10/20/24 09:52 SP TYPE: Fluid OTHR DR: Dr. Sapna Ray DO Tissues: Pleural fluid, NOS Procedures: Special Stain Group II Surgery Specimen Level IV Cytospin Fluid HEADER OPERATION: Ultrasound-Guided Thoracentesis, Right PRE-OP DIAGNOSIS: Pleural Effusion TISSUE SUBMITTED: Right Pleural Fluid DIAGNOSIS CYTOLOGY A. Right pleural fluid, cytospin and cellblock, thoracentesis: - No malignant cells identified. CYTOLOGY STUDY Slides are reviewed. CYTOLOGY GROSS Received is 80 ml of dark yellow cloudy fluid labeled with the patient's name and and designated per the requisition as Pleural Fluid.Submitted for cytology and cell block preparation. CPT: 96315,58703
[2024-10-19 13:43] VITALS: BP 124/73; PULSE 122; RESP 18; O2SAT 95
--- NOTE | 2024-10-19 13:45 | RAD_ITS ---
EXAM: XR Chest, 1 View CLINICAL INDICATION: POST THORACENTESIS TECHNIQUE: Frontal view of the chest. COMPARISON: No relevant prior studies available. FINDINGS: LUNGS AND PLEURAL SPACES: Trace bilateral pleural effusions. Pulmonary venous congestion. No pneumothorax. HEART: Unremarkable. No cardiomegaly. MEDIASTINUM: Unremarkable. Normal mediastinal contour. BONES/JOINTS: Unremarkable. No acute fracture. RAD/Chest Insp/Exp 2 View IMPRESSION: 1. No pneumothorax. 2. Trace bilateral pleural effusions. 3. Pulmonary venous congestion. [facility]
--- NOTE | 2024-10-19 13:47 | OP.PCM_ITS ---
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 Posey INDICATION: Female, 54 years old. Pleural effusion. PROVIDER: SULY Woo PROCEDURE: The risks, benefits, and alternatives to the procedure were explained to the patient. The specific risks of bleeding, infection, and pneumothorax requiring chest tube insertion were discussed and accepted. Written informed consent was o btained. The patient was placed in the sitting, upright position. Ultrasonographic evaluation of the bilateral lower pleural spaces was carried out. An adequate pocket was identified in the right lower pleural space. The overlying skin was prepped with chlorhexidine and draped in sterile fashion. 2 % lidocaine was administered subcutaneously for local anesthesia. Under ultrasound guidance, a 5-Upper Sorbian thoracentesis needle/catheter system was advanced into the right posterior lower pleural fluid collection. 1180 ml of clear dark yellow colored fluid was drained. A sample was sent to the lab for diagnostic purposes. The catheter was removed, and a sterile dressing was applied. The patient tolerated the procedure well without any immediate complications. A chest x-ray was ordered. There was no evidence of pneumothorax. IMPRESSION: Successful ultrasound guided thoracentesis of right pleural effusion. Surgical Findings: None Complications Complications: No
[2024-10-19 14:27] LABS: Cytology, Body Fluid / CSF SEE PATHOLOGY REPORT
[2024-10-19 14:32] LABS: Body Fluid Mononuclear WBC # 0.133 10^3/uL; Body Fluid Mononuclear WBC % 88.7 %; Body Fluid Polynuclear WBC # 0.017 10^3/uL; Body Fluid Polynuclear WBC % 11.3 %; White Blood Count/Body Fluid 0.150 10^3/uL
[2024-10-19 15:01] VITALS: BP 136/78; PULSE 68; RESP 17; TEMP 36.4; O2SAT 97
[2024-10-19 15:30] LABS: Auto B Fluid Analyzer BKGD Ct COUNTS W/IN LIMITS (W/IN LIMITS)
[2024-10-19 15:31] LABS: Appearance/Body Fluid CLEAR; Color/Body Fluid YELLOW; Red Cell Count/Body Fluid 605 /mm3; Source- Body Fluid PLEURAL FLUID
[2024-10-19 15:32] LABS: Neutrophil (Segs) 8 %; Other Cell Type/BF 1 %
[2024-10-19 16:06] LABS: Glucose, Body Fluid 248 mg/dL (Not Establ.)
--- NOTE | 2024-10-19 16:24 | CHAPLAIN ---
Type of Pastoral Visit _x__ Initial Visit ___ Follow-up Visit ___ On-call Visit ___ General Patient Visit ___ Spiritual Assessment ___ Family Conference ___ Bereavement ___ Rapid Response ___ Code Blue ___ Other (describe below) Pastoral Care Referral From _x__ Patient ___ Family ___ Nurse ___ Physician ___ Car Record Clerk ___ Action Finisher ___ Other (describe below) Sacrament/Intervention _x__ Active listening ___ Anointing ___ Synagogue ___ Bereavement ___ Communion _x__ Carleen exploration ___ _x__ Life review ___ Prayer ___ Reconciliation ___ Sacrament of Sick _x__ Supportive presence ___ Wedding ___ Other (describe below) Pastoral Comments patient gives details on her health need and family history of heart issues; pt speaks of her father's from some similiar things; and she considers how she has helped her mother and her children over the years; discussed how she is coping, what support she receives, her views on how to handle life; pt also expresses what her personal beliefs are and how she differs from her mother's druze; pt asks questions about spiritual matters and gives her opinion; pt presents self as someone that is strong and will face whatever she needs; long conversation and time given to listen and show support
--- NOTE | 2024-10-19 16:35 | PCM.DC.SUM ---
Providers Date of Admission: 10/18/24 Primary Care Physician: Dr. Sapna Ray DO Reason For Visit: CHF EXACERBATION Diagnosis Discharge Diagnosis (1) CHF exacerbation: Status: Chronic Code(s): I50.9 - Heart failure, unspecified Plan: acute HFrEF. Global hypokinesis of the LV. Moderate-severe 3+ mitral valve insufficiency. Patient appears constipated though she does have a markedly large pleural effusions. I suspect these are more transudative however. Will initiate with IV furosemide 40 mg IV twice daily. Fluid restrict to 1.5 L/day. Daily weights. Discussed with Dr. Franklin of cardiology. Recommends outpatient follow-up in the cardiac office for further evaluation and management of her low EF. Will continue with lisinopril add carvedilol. (2) Pleural effusion: Status: Acute Code(s): J90 - Pleural effusion, not elsewhere classified Plan: Suspect transudative given the heart failure. Patient states that her father had a history of a very aggressive lung cancer. Patient had a therapeutic ultrasound removing 1.18 L. Patient felt better afterwards. Fluid came back consistent with transudative effusion. Is due to heart failure and this will need to be further optimized. (3) Diabetes mellitus: Status: Acute Code(s): E11.9 - Type 2 diabetes mellitus without complications Plan: Insulin-dependent. Hold metformin for [address] angiogram. Continue with her glargine as well as prandial insulin and add sliding scale insulin. A1c 12.6. Recommend patient follow-up with endocrinology. Plan ADELINE: Patient had been diagnosed with ADELINE in the past. She has not used CPAP in years. Though she does state that she has lost considerable amount of weight since that time. Vies patient to follow-up with pulmonary to have a repeat polysomnogram as outpatient. Obesity class I: Complicates care and recovery. Hypertension: Continue with lisinopril. Fibromyalgia: Continue with duloxetine VTE prophylaxis with enoxaparin CODE STATUS: Addressed with patient. Patient wished to be full code. Medications at Discharge Home Medications omeprazole 20 mg capsule,delayed release 20 mg PO DAILY gerd 03/23/21 duloxetine 60 mg capsule,delayed release 60 mg PO BID depression 04/07/21 fenofibrate micronized 67 mg capsule 67 mg PO BID HLD 04/07/21 aspirin 81 mg tablet 81 mg PO DAILY heart health 04/19/21 insulin lispro 100 unit/mL subcutaneous pen (Humalog KwikPen (U-100) Insulin) 20 unit (0.2 mL) subcut TIDAC blood suagr 30 days #18 mL 04/23/21 cholecalciferol (vitamin D3) 1,250 mcg (50,000 unit) capsule 1,250 mcg PO QWEEK vitamin 05/22/21 diphenhydramine HCl 25 mg capsule (Benadryl) 50 mg PO BID PRN Itching 05/22/21 ondansetron HCl 8 mg tablet 8 mg PO Q8H PRN Nausea 05/22/21 insulin glargine 100 unit/mL (3 mL) subcutaneous pen (Lantus Solostar U-100 Insulin) 50 - 75 units subcut BID blood sugar 10/30/21 metformin 500 mg tablet,extended release 24 hr 1,000 mg PO BID diabetes 12/07/23 Held on 10/19/24. Instructions: Resume on 10/23/24. Lactobacillus acidophilus 0.5 mg (100 million cell) tablet 1 mg PO BID 10/18/24 levocetirizine 5 mg tablet 5 mg PO DAILY 10/18/24 pregabalin 150 mg capsule 150 mg PO BID 10/18/24 sodium chloride 0.65 % nasal spray aerosol (Deep Sea Nasal) 1 spray intranasal 4X/DAY PRN PRN allergies 10/18/24 carvedilol 6.25 mg tablet 6.25 mg PO BID #60 tabs 10/19/24 furosemide 40 mg tablet (Lasix) 40 mg PO DAILY #30 tabs 10/19/24 lisinopril 10 mg tablet 10 mg PO DAILY #30 tabs 10/19/24 Hospital Course Operations None Procedures 2-D Echocardiogram and Thoracentesis Summary of Care Provided Hospital Course: Greater than 30 minutes spent on discharge This is a 54-year-old female presents with orthopnea. Presented and had CTA of her chest that showed bilateral pleural effusions. Concerning for CHF patient was started on furosemide IV. Patient underwent a therapeutic thoracentesis that removed 1.18 L. Patient felt better afterwards. Fluid came back as transudative likely due to her heart failure. Patient did have a low EF of 40%. I did discuss case with Dr. Franklin, of cardiology, who recommended outpatient follow-up. The patient will continue with the furosemide, lisinopril, will have carvedilol added. And patient advised to check her weight daily and keep a record and to limit her fluid intake daily. Also patient is diabetes poorly controlled her A1c is 12.6. In addition to following up cardiology she should follow-up with endocrinology as well. Patient improved faster than initially anticipated. Weight / BMI Weight Weight: 89.4 kg Body Mass Index (BMI) 32.8 ABG / Lab / Microbiology Data 10/19/24 05:11 10/19/24 05:11 Laboratory: Laboratory Results - last 24 hr 10/18/24 17:09: POC Glucose 314 H 10/18/24 21:45: POC Glucose 276 H 10/19/24 05:11: WBC 6.5, RBC 3.75 L, Hgb 11.0 L, Hct 33.1 L, MCV 88.3, MCH 29.3, MCHC 33.2, RDW Std Deviation 45.1 H, RDW Coeff of Elio 14.5, Plt Count 199, MPV 10.0, Immature Gran % (Auto) 1.700 H, Neut % (Auto) 61.6, Lymph % (Auto) 26.5, [place] % (Auto) 7.7, Eos % (Auto) 2.0, Baso % (Auto) 0.5, Absolute Neuts (auto) 4.0, Absolute Lymphs (auto) 1.73, Nucleated RBC % 0, Sodium 136, Potassium 5.0, Chloride 103, Carbon Dioxide 22.2, Anion Gap 11, BUN 30 H, Creatinine 0.86, Estim Creat Clear Calc 83.55, Est GFR (MDRD) Non-Af 81, BUN/Creatinine Ratio 35.2 H, Glucose 299 H, Hemoglobin A1c 12.3 H, Calcium 9.0, Total Bilirubin 0.29, AST 36 H, ALT 28, Alkaline Phosphatase 80, Lactate Dehydrogenase 221, Total Protein 6.2, Albumin 3.3 L, Globulin 2.9, Albumin/Globulin Ratio 1.2, TSH 1.130 10/19/24 08:12: POC Glucose 275 H 10/19/24 11:59: POC Glucose 181 H 10/19/24 13:37: Fluid Source PLEURAL FLUID, Fluid Color YELLOW, Fluid Appearance CLEAR, Fluid WBC 0.150, Fluid RBC 605, Fluid Tot Cell Count 0.188 H, Fld Polynuclear WBCs # 0.017, Fld Polynuclear WBCs % 11.3, Fluid Mononuclear WBCs 0.133, Fld Mononuclear WBCs % 88.7, Fluid Neutrophils 8, Fluid Lymphocytes 45, Fluid Monocytes 12, Fluid Macrophages 24, Fld Mesothelial Cells 10, Fluid Other Cells 1, Fl Pathologist Comment May follow, Fluid Glucose 248, Fluid Total Protein 1.5, Fluid LDH 82, Fluid Comment 2 SEE COMMENT Microbiology: Microbiology 10/19/24 13:37 Fluid - Pleural (Lung) Gram Stain - Final 10/18/24 10:35 Mucosa - Nose SARS-CoV-2, Influenza & RSV (PCR) - Final Radiography Diagnostic Testing: Radiology Impression Echocardiogram 10/18/24 15:00 Interpretation Summary Normal LV size. The left ventricular ejection fraction is 40 %. There is mild global hypokinesis of the left ventricle. Moderately severe (3+) eccentric mitral valve insufficiency. Contrast injection was performed. Ordering Physician: Darvin Posey Referring Physician: Sapna Ray Performed By: Loida Alvarez, NANCY, RVT Chest X-Ray 10/19/24 13:45 IMPRESSION: 1. No pneumothorax. 2. Trace bilateral pleural effusions. 3. Pulmonary venous congestion. Reading Location: [facility] D/C Instructions Call your doctor if you observe: Shortness of breath, Swelling in the ankles and Chest pain DC O2, CPAP, BIPAP Needs Home O2 Discharge instructions: No Meaningful Use Info Meaningful Use Meaningful Use Diagnoses (Choose all that apply): CHF CHF RADHA/ARB ordered at discharge?: Yes Documented LVEF (%): 40 Discharge Plan Admission Admit Date/Time: 10/18/24 13:48 Primary Reason for Your Visit: Heart failure exacerbation. Pleural effusions. Attending Provider: Darvin Posey Primary Care Provider: Sapna Ray Instructions Additional Instructions / Restrictions: You have pleural effusions (fluid between your chest and your lungs) likely due to heart failure. We removed over liter from your chest. As we discussed this is consistent with more likely heart failure. That management will be continue with fluid removal with furosemide (Lasix). Will try to optimize your heart function as well with medications including continuing lisinopril and adding carvedilol. You should follow with cardiology next 2 to 4 weeks for further monitoring. Additionally your diabetes has not been optimally controlled and I do recommend a follow-up with endocrinology as well. Discharge Orders/Prescriptions Prescriptions: New carvedilol 6.25 mg tablet 6.25 mg PO BID Qty: 60 0RF Rx Instructions: must administer with a meal/food lisinopril 10 mg tablet 10 mg PO DAILY Qty: 30 0RF furosemide [Lasix] 40 mg tablet 40 mg PO DAILY Qty: 30 0RF Continued ondansetron HCl 8 mg tablet 8 mg PO Q8H PRN (Reason: Nausea) cholecalciferol (vitamin D3) 1,250 mcg (50,000 unit) capsule 1,250 mcg PO QWEEK diphenhydramine HCl [Benadryl] 25 mg capsule 50 mg PO BID PRN (Reason: Itching) omeprazole 20 mg Capsule,Delayed Release(Dr/Ec) 20 mg PO DAILY fenofibrate micronized 67 mg capsule 67 mg PO BID duloxetine 60 mg capsule,delayed release(DR/EC) 60 mg PO BID aspirin 81 mg Tablet 81 mg PO DAILY insulin lispro [Humalog KwikPen Insulin] 100 unit/mL Insulin Pen 20 unit subcut TIDAC 30 Days Qty: 18 0RF insulin glargine [Lantus Solostar U-100 Insulin] 100 unit/mL (3 mL) insulin pen 50 - 75 units subcut BID Deep Sea Nasal 0.65 % aerosol,spray 1 spray INTRANASAL 4X/DAY PRN PRN (Reason: allergies) pregabalin 150 mg capsule 150 mg PO BID levocetirizine 5 mg tablet 5 mg PO DAILY Lactobacillus acidophilus 0.5 mg (100 million cell) tablet 1 mg PO BID Held metformin 500 mg tablet extended release 24 hr 1,000 mg PO BID Hold Instructions: Resume on 10/23/24. Discontinued lisinopril 2.5 mg tablet 2.5 mg PO DAILY Referrals / Follow Up: [facility] [Provider Group] - Within 1 Month [facility] [Provider Group] - Within 2 Weeks Sapna Ray DO [Primary Care Provider] - Within 2 Weeks Disposition Disposition (needs filled in before D/C Order can be placed): Home, Self Care Charges/Coding Visit Charges Inpatient E&M: 30181 Disch Hosp >30min
[2024-10-19 22:25] LABS: Body Fluid QC Type(s) BF1Q
[2024-10-20 13:56] LABS: Pathologist Comment/Body Fluid Reviewed
[2024-10-24 11:08] LABS: pH, Body Fluid 11254 7.8 (Not Estab.)
== END 2024-10-19 17:51 | disposition home or self-care (01) | DRG 194 ==
LOC: ED 11:23 → PCU 14:09
PROVIDERS: Emergency Provider Surgery; PCP Family Medicine
DX: I11.0 Hypertensive heart disease with heart failure (principal); J90 Pleural effusion, not elsewhere classified; E11.40 Type 2 diabetes mellitus with diabetic neuropathy, unspecified; I50.21 Acute systolic (congestive) heart failure; I34.0 Nonrheumatic mitral (valve) insufficiency; E66.811 Obesity, class 1; Z79.4 Long term (current) use of insulin; M79.7 Fibromyalgia; G47.33 Obstructive sleep apnea (adult) (pediatric); Z87.891 Personal history of nicotine dependence; Z86.16 Personal history of COVID-19; Z79.82 Long term (current) use of aspirin; Z79.899 Other long term (current) drug therapy; Z79.84 Long term (current) use of oral hypoglycemic drugs; Z68.32 Body mass index [BMI] 32.0-32.9, adult
CPT/HCPCS: 32555; 36415; 71046; 71275; 80048; 80053; 82945; 82962; 83036; 83605; 83615; 83880; 83986; 84155; 84157; 84443; 84484; 85025; 85379; 87040; 87070; 87075; 87205; 87631; 88108; 88305; 88313; 89050; 93005; 93306; 94640; 97802; 99284; Q9957; Q9967; A4216; C8929; J0295; J1938

== ENCOUNTER 2024-12-04 20:39 | Inpatient (IN) | payer MEDICAID, SELFPAY ==
[2024-12-04] VITALS (15 sets, daily range): BP systolic 130–154; BP diastolic 72–97; PULSE 115–120; RESP 18–28; TEMP 36.9; O2SAT 94–99; BMI 34.8
--- NOTE | 2024-12-04 21:03 | EKG12_ITS ---
Test Reason : Blood Pressure : */* mmHG Vent. Rate : 120 BPM Atrial Rate : 120 BPM P-R Int : 152 ms QRS Dur : 140 ms QT Int : 360 ms P-R-T Axes : 35 -22 109 degrees QTcB Int : 508 ms Sinus tachycardia Non-specific intra-ventricular conduction block Minimal voltage criteria for LVH, may be normal variant ( Jason product ) Inferior infarct , age undetermined Cannot rule out Anteroseptal infarct (cited on or before 18-Oct-2024) Abnormal ECG Confirmed by Rahat Franklin ([id number]), editor producer PHOENIX FLORES ([id number]) on 12/06/2024 10:42:39 AM Referred By: Confirmed By: Rahat Franklin
--- NOTE | 2024-12-04 21:10 | RAD_ITS ---
PROCEDURE: CHEST PA AND LATERAL 12/04/2024 REASON FOR EXAM: SOB TECHNIQUE: Procedure Code: RADCXR Modality: DX Procedure: CHEST PA AND LATERAL COMPARISON: October 19, 2024, October 18, 2024 FINDINGS: Hardware: EEG leads Heart: Mildly enlarged. Lungs: Subsegmental atelectasis associated with small pleural effusions and minimal edema. Bones: Minimal degenerative change of the thoracic spine. RAD/Chest PA and Lateral IMPRESSION: Small volume pleural effusions and subsegmental atelectasis. There may be some minimal edema. Reading Location: [id number]
[2024-12-04 21:22] LABS: Hematocrit 41.1 % (37-47); Hemoglobin 12.9 g/dL (12.0-15.0); Immature Granulocytes Count 0.040 X10^3/uL (0.0-0.0); Mean Corp Hgb Conc 31.4 g/dL (32-36); Mean Corpuscular Volume 89.0 fL (81-99); Mean Platelet Vol. 11.9 fl (6.2-12.0); NRBC Flagged by Analyzer 0 % (0-5); Platelet Count 158 K/mm3 (150-450); RBC Distribution Width CV 14.4 % (11.6-14.6); RBC Distribution Width SD 45.9 fl (35.1-43.9); Red Blood Count 4.62 M/mm3 (4.2-5.4); White Blood Count 6.6 K/mm3 (4.4-11.0)
[2024-12-04 21:40] LABS: Anion Gap 13 (5-15); BUN 45 mg/dL (4-19); BUN/Creat Ratio 37.0 RATIO (10-20); Calcium,Total 9.3 mg/dL (7.6-11.0); Carbon Dioxide 24.8 mmol/L (21.0-32.0); Chloride 105 mmol/L (98-108); Estimated Creatinine Clearance 61.25 ml/min (50-250); Glucose 398 mg/dL (70-99); Potassium 5.1 mmol/L (3.3-5.1)
--- OUTSIDE RECORDS SUMMARY | 2024-12-04 21:41 | XMS RPT_ITS | CCD ---
Author Organization [facility] Care Team Providers Care Database Tester Name Role Phone Dr. Sapna Ray Primary Care Provider Dr. Kvng Herrera Emergency Provider Dr. Fred Wilkins Admit Provider Dr. Fred Wilkins Attending Provider Dr. Fred Wilkins Other Provider Dr. Katherine Peck Attending Provider Dr. Katherine Peck Other Provider Dr. Tony Hunter Other Provider Dr. David Santillan Other Provider Vlaerie RICE DRIER, RICE DRIER-C Teresa Other Provider Dr. Darvin Schultz Emergency [...] Other Provider Dr. David Santillan Attending Provider Dr. Bill Gregorio Other Provider Unavailable Jg, Dr. Khan Attending Provider Unavailable Dr. Reinaldo Collins Attending Provider Qasim, Dr. Smith Other Provider Dr. Tony Hunter Attending Provider Qasim, Dr. Smith Attending Provider Cory, Dr. Alejo Referring Provider Valerie RICE DRIER, RICE DRIER-C Teresa Attending Provider Cory RAMOS, Sapna Medina Primary Care Provider Cory, Dr. Alejo Primary Care Provider Cory, Dr. Alejo Primary Care Provider Cory, Dr. Alejo Referring Provider Dr. Tyson Menchaca Attending Provider GARCIA CORONADO, DR LÓPEZ Primary Care Physician Raya Ray DO, Sapna Medina Primary Care Provider Cory, Dr. Aleoj Primary Care Provider Cory, Dr. Alejo Referring Provider [phone] Dr. Tyson Menchaca Attending Provider Cory RAMOS, Sapna Medina Primary Care Provider CORY, SAPNA Medina Primary Care Unavailable Cory RAMOS, Dr. Alejo Primary Care Provider Dr. Satya Mendenhall DO Emergency Provider Taty RAMOS, Dr. [place] Admit Provider Dr. Darvin Posey DO Attending Provider Dr. Sapna Ray DO Primary Care Provider Denise CORONADO, Dr. Reagan Attending Provider Dr. Darvin Posey DO Other Provider Patti LOZANO-CLyndsey Attending Provider Malys, Sapna Primary Care Unavailable KoReinaldo everettolas F Attending Unavailable Reeves, Cari Admitting Unavailable Reeves, Cari Consulting Unavailable Tez Walker Attending Unavailable Malys, Sapna Primary Care Unavailable Malys, Sapna Primary Care Unavailable Taty, Darvin Attending Unavailable Malys, Sapna Primary Care Unavailable Lyndsey Armstrong Attending Unavailable Darvin Posey Admitting Unavailable Taty, Darvin Consulting Unavailable Taty, Darvin Attending Unavailable Reeves, Cari Admitting Unavailable Reeves, Cari Consulting Unavailable Reeves, Cari Attending Unavailable Malys, Sapna Primary Care Unavailable KoJ Luis everett F Attending Unavailable J Luis Diaz Consulting Unavailable Malys, Sapna Primary Care Unavailable Sav Kenyon Attending Unavailable Malys, Sapna Primary Care Unavailable Jojanett, Darvin Admitting Unavailable Darvin Posey Attending Unavailable Allergies Allergy Classification Reported Allergen(s) Allergy Type Date of Onset Reaction(s) Facility (14 sources) [place]; Translations: [ETODOLAC] Drug Allergy 01-16-2015 Swelling [facility] [place] (5 sources) Seasonal allergy; Translations: [SEASONAL ALLERGIES] Allergy to substance 01-16-2015 Itching [facility] [place] (1 source) [facility]-2024 [facility] Medications Current Medications Medication Drug [...] 10 tablet 07/18/2024 07/23/2024 Active Ascorbic Acid (9 sources) Vitamin C Start: 05-22-2021 take 1 [...] 2021 1:00am aspirin 81 mg oral tablet (13 sources) Platelet Aggregation Inhibitor, Nonsteroidal Anti-inflammatory Drug Start: 04-19-2021 take 1 tablet by mouth once daily Aspirin 81 mg Tablet Active 81 mg PO DAILY April 19, 2021 1:00am [employer] take 1 tablet by mouth once live y aspirin, enteric coated (ASPIRIN, ENTERIC COATED) 81 mg EC tablet Take 81 mg by mouth once daily. Active Comment on above: Take 81 mg by mouth once daily. carvedilol 6.25 mg oral tablet (1 source) alpha-Adrenergic Destiney, beta-Adrenergic Destinye Start: 025 take 1 tablet by mouth twice daily at mealtime Carvedilol 6.25 mg tablet Active 6.25 mg PO TWICE A DAY 60 0 October 19, 2024 12:00am must administer with a meal/food cholecalciferol 1.25 mg oral capsule (9 sources) Vitamin D Start: 022 take 1 capsule by mouth every week Cholecalciferol (Vitamin D3) 1,250 mcg (50,000 unit) capsule Active 1250 ug PO EVERY WEEK May 22, 2021 1:00am vitamin cyclobenzaprine hydrochloride 10 mg oral tablet (3 sources) Muscle Relaxant Start: 022 take 10 mg by mouth twice daily [...] 1:00am Start: 05-22-2021 take 1 capsule by mo ut twice daily Diphenhydramine Hcl (Benadryl) 25 mg [...] at bedtime. fenofibrate 67 mg oral capsule (13 sources) Peroxisome Proliferator Receptor alpha Agonist Start: 022 take 1 capsule by mouth twice daily [...] oral tablet (1 source) Azole Antifungal Start: End: fluconazole (DIFLUCAN) 150 mg tablet Indications: Antibiotic-induced yeast infection Take 1 tablet by mouth one time only for 1 dose. Repeat in 3 days as needed. 2 tablet 07/18/2024 07/18/2024 Active furosemide 40 mg oral tablet (1 source) Loop Diuretic Start: take 1 tablet by mouth once daily Furosemide (Lasix) 40 mg tablet Active 40 mg PO DAILY 30 0 October 19, 2024 12:00am 3 ml insulin glargine 100 unt/ml pen injector (20 sources) Insulin Analog Start: Insulin Glargine (Lantus Solostar U-100 Insulin) 100 [...] daily. lactobacillus acidophilus 1 mg oral tablet (2 sources) Start: 10-19-19 take 1 tablet by mouth twice daily Lactobacillus Acidophilus 0.5 mg (100 million cell) tablet Active 1 mg PO TWICE A DAY October 18, 2024 12:00am levocetirizine dihydrochloride 5 mg oral tablet (15 sources) Histamine-1 Receptor Antagonist Start: 10-19-19 25 take 1 tablet by mouth once daily [...] Comment on above: Take by mouth. lisinopril 10 mg oral tablet (16 sources) Angiotensin Converting Enzyme Inhibitor Start: 10-19-2024 take 1 tablet by mouth once daily Lisinopril 10 mg tablet Active 10 mg PO DAILY 30 0 October 19, 2024 12:00am Start: 10-18-2024 End: 10-19-2024 take 1 tablet by mouth once daily Lisinopril 2.5 mg tablet Discontinued 2.5 mg PO DAILY October 18, 2024 12:00am October 19, 2024 4:39pm Start: 03-23-2021 End: 10-23-2021 take 1 tablet [...] A DAY December 07, 2023 12:00am diabetes On Hold: Resume on 10/23/24. Start: 05-22-2021 End: 01-15-2024 take 1 tablet [...] omeprazole 20 mg delayed release oral capsule (13 sources) Proton Pump Inhibitor Start: 1 take 1 capsule by mouth once daily Omeprazole 20 mg Capsule,Delayed Release(Dr/Ec) Active 20 mg PO DAILY March 23, 2021 1:00am gerd Comment on above: Take 20 mg by mouth once daily. ondansetron 8 mg oral tablet (20 sources) Serotonin-3 Receptor Antagonist Start: 2 take 1 tablet by mouth every eight [...] (AK-DILATE, GUTIERREZ-SYNEPHRINE) pregabalin 150 mg oral capsule (2 sources) Start: 10-18-2024 take 1 capsule by mouth twice daily Pregabalin 150 mg capsule Active 150 mg PO TWICE A DAY October 18, 2024 12:00am proparacaine hydrochloride 5 mg/ml ophthalmic solution (1 source) Local Anesthetic Start: 02-04-2022 End: 02-04-2022 proparacaine 0.5 % 1 Drop (ALCAINE) sodium chloride 0.111 meq/ml nasal spray (3 sources) Start: 10-18-2024 Sodium Chloride ([place] Nasal) 0.65 % aerosol,spray Active 1 NMA INTRANASAL 4 TIMES DAILY NEEDED as needed for allergies October 18, 2024 12:00am Start: 10-18-2024 Sodium Chlorid e (Sodium Chloride 0.65 % Nasal [facility] Aerosol) 0.65 % aerosol,spray Active 1 NMA [...] / HYDROcodone bitartrate 5 mg oral tablet (9 sources) Opioid Agonist Start: 07-09-2021 End: 10-23-2021 [...] / oxyCODONE hydrochloride 5 mg oral tablet (14 sources) Opioid Agonist Start: 10-30-2021 End: 01-15-2024 [...] right side Sciatica, right side bacillus coagulans [id number] unt / lactobacillus acidophilus [id number] unt oral tablet (9 sources) Start: 04-07-2021 End: 01-15-2024 Acidophilus-Sporogenes (Acid ophilus Ex Str (L. Sporog)) 35 million- 25 million cell tablet Discontinued 2 {tbl} PO TWICE A DAY April 07, 2021 1:00am January 15, 2024 4:05pm GI Start: 04-07-2021 take 1 tablet by julianne th once daily Acidophilus-Sporogenes (Acidophilus Ex Str (L. [...] CPAP doxycycline monohydrate 100 mg oral tablet (9 sources) Tetracycline-class Drug Start: 04-09-2021 End: 04-23-2021 take 1 tablet by mouth twice daily Doxycycline Monohydrate 100 mg tablet Discontinued 100 mg PO TWICE A DAY 10 0 April 09, 2021 1:00am April 23, 2021 [...] times daily. glipiZIDE 5 mg oral tablet (9 sources) Sulfonylurea Start: 04-15-19 End: 03-08-20 take 1 tablet by mouth twice daily Glipizide 5 mg tablet Discontinued 5 mg PO TWICE A DAY April 15, 2017 1:00am March 08, 2020 2:52pm diabetes insulin aspart, human 100 unt/ml injectable solution (13 sources) Insulin Analog Start: 05-23-19 End: 04-15-19 [...] meals insulin detemir 100 unt/ml injectable solution (9 sources) Insulin Analog Start: End: inject 20 [IU] by subcutaneous injection at bedtime Insulin Detemir U-100 100 UNIT/ML solution Discontinued 20 U SQ AT BEDTIME March 07, 2020 1:00am March 08, 2020 2:53pm diabetes levoFLOXacin 750 mg oral tablet (9 sources) Quinolone Antimicrobial Start: End: take 1 tablet by mouth once daily Levofloxacin 750 mg tablet Discontinued 750 mg PO DAILY 3 3 0 April 23, 2021 1:00am May 22, 2021 9:24am methocarbamol 500 mg oral tablet (10 sources) Muscle Relaxant Start: End: take 1 tablet by mouth twice daily Methocarbamol 500 MG tablet Discontinued 500 mg PO TWICE A DAY May 23, 2015 1:00am April 15, 2017 10:48am Comment on above: Take 500 mg by mouth twice daily. metoprolol tartrate 25 mg oral tablet (9 sources) beta-Adrenergic Destiney Start: End: take 1 [...] twice daily. montelukast 10 mg oral tablet (10 sources) Leukotriene Receptor Antagonist Start: End: take 1 tablet by mouth at bedtime Montelukast 10 MG tablet Discontinued 10 mg PO AT BEDTIME May 23, 2015 1:00am April 15, 2017 10:47am Comment on above: Take 10 mg by mouth once daily. nabumetone 750 mg oral tablet (16 sources) Nonsteroidal Anti-inflammatory Drug Start: End: take 1 tablet by mouth [...] once daily. naproxen 500 mg oral tablet (9 sources) Nonsteroidal Anti-inflammatory Drug Start: 2 End: 2 take 1 tablet by mouth twice daily as needed for pain Naproxen (Naprosyn) 500 mg tablet Discontinued 500 mg PO TWICE A DAY as needed for pain 20 July 09, 2021 12:00am October 23, 2021 1:51pm 24 hr oxybutynin chloride 10 mg extended release oral tablet (10 sources) Cholinergic Muscarinic Antagonist Start: 7 End: 2 take 1 tablet by mouth once daily Oxybutynin Chloride 10 MG tablet extended release 24 hr Discontinued 10 mg PO DAILY October 10, 2016 12:00am March 24, 2017 6:14pm Comment on above: TAKE 1 TABLET BY JULIANNE TH DAILY predniSONE 20 mg oral tablet (18 sources) Start: 2 End: 2 take 2 [...] once daily. tiZANidine 6 mg oral capsule (6 sources) Central alpha-2 Adrenergic Agonist Start: 10-30-2021 [...] Date Episodic/Chronic Acute and unspecified renal failure (9 sources) Injury of kidney; Translations: [Acute kidney failure, unspecified] 04-22-2021 Episodic Asthma (4 sources) Asthma; Translations: [Unspecified asthma, uncomplicated] Onset: 02-07-2015 02-07-2015 Chronic Cardiac dysrhythmias (10 sources) Sinus tachycardia; Translations: [Tachycardia, unspecified] Episodic Cataract (3 sources) Bilateral senile combined form cataracts of eyes; Translations: [Combined forms of age-related cataract, bilateral] Onset: 02-04-2022 Chronic Congestive heart failure; nonhypertensive (5 sources) Acute exacerbation of chronic congestive heart failure; Translations: [Heart failure, unspecified] Onset: 11-04-2024 10-18-2024 Chronic Diabetes mellitus with complications (20 sources) Diabetic ketoacidosis; Translations: [Type 2 diabetes mellitus with ketoacidosis without coma] Chronic Diabetes mellitus without complication (20 sources) Diabetes mellitus; Translations: [Type 2 diabetes mellitus without complications] Onset: 02-07-2015 02-07-2015 Chronic Disorders of lipid metabolism (15 sources) Hyperlipidemia; Translations: [Hyperlipidemia, unspecified] Onset: 02-07-2015 Chronic Esophageal disorders (8 sources) Gastroesophageal reflux disease; Translations: [Gastro-esophageal reflux disease without esophagitis] Onset: 02-07-2015 02-07-2015 Chronic Essential hypertension (5 sources) Hypertensive disorder; Translations: [Essential (primary) hypertension] Onset: 02-07-2015 02-07-2015 Chronic Fluid and electrolyte disorders (19 sources) Acute hyponatremia; Translations: [Hypo-osmolality and hyponatremia] Episodic Genitourinary symptoms and ill-defined conditions (4 sources) Female stress incontinence; Translations: [Stress incontinence (female) (male)] Onset: 04-03-2015 04-03-2015 Chronic Hypertension with complications and secondary hypertension (1 source) Hypertensive heart disease with heart failure; Translations: [Hypertensive heart disease with heart failure] Onset: 11-04-2024 Chronic Malaise and fatigue (4 sources) Chronic fatigue, unspecified; Translations: [[id number] syndrome manifesting as chronic fatigue] Chronic Malaise and fatigue (11 sources) Asthenia; Translations: [Weakness] Episodic Mood disorders (5 sources) Depressive disorder; Translations: [Depression] Onset: 02-07-2015 02-07-2015 Chronic Mycoses (1 source) Opportunistic mycosis; Translations: [Candidiasis, unspecified] 07-18-2024 Episodic Other circulatory disease (6 sources) Transient hypotension; Translations: [Hypotension, unspecified] 11-07-2021 Episodic Other circulatory disease (3 sources) Syncope due to orthostatic hypotension; Translations: [Orthostatic hypotension] 04-07-2022 Episodic Other connective tissue disease (14 sources) Fibromyalgia; Translations: [Fibromyalgia] Onset: 02-07-2015 02-07-2015 Episodic Other connective tissue disease (9 sources) Panniculitis; Translations: [Panniculitis, unspecified] 04-22-2021 Episodic Other connective tissue disease (9 sources) Recurrent falls ; Translations: [Repeated falls] 04-22-2021 Episodic Other connective tissue disease (1 source) Paraparesis; Translations: [Other symptoms and signs involving the musculoskeletal system] Episodic Other diseases of bladder and urethra (4 sources) Detrusor overactivity; Translations: [Overactive bladder] Onset: 04-03-2015 04-03-2015 Chronic Other diseases of kidney and ureters (9 sources) Acute renal insufficiency; Translations: [Disorder of kidney and ureter, unspecified] 11-07-2021 Episodic Other inflammatory condition of skin (9 sources) Intertrigo; Translations: [Erythema intertrigo] 04-22-2021 Episodic Comment on above: abdominal wall skin crease intertrigo Other lower respiratory disease (9 sources) Hypoxia; Translations: [Hypoxemia] 05-01-2021 Episodic Other lower respiratory disease (1 source) Hypoxemia; Translations: [Hypoxemia] Episodic Other lower respiratory disease (2 sources) Rib pain; Translations: [Pleurodynia] Episodic Other non-traumatic joint disorders (2 sources) Pain in right knee; Translations: [Pain in joint, lower leg] Episodic Other nutritional; endocrine; and metabolic disorders (9 sources) Excess panniculus of abdomen; Translations: [Localized adiposity] 04-22-2021 Chronic Other nutritional; endocrine; and metabolic disorders (9 sources) Excessive weight loss; Translations: [Abnormal weight loss] 04-22-2021 Episodic Other upper respiratory infections (1 source) Bacterial sinusitis; Translations: [Chronic sinusitis, unspecified] 07-18-2024 Chronic Pleurisy; pneumothorax; pulmonary collapse (5 sources) Pleural effusion; Translations: [Pleural effusion, not elsewhere classified] Onset: 11-04-2024 10-18-2024 Episodic Pneumonia (except that caused by tuberculosis or sexually transmitted disease) (10 sources) Bilateral pneumonia; Translations: [Pneumonia, unspecified organism] Episodic Residual codes; unclassified (4 sources) Obstructive sleep apnea syndrome; Translations: [Obstructive sleep apnea (adult) (pediatric)] Onset: 02-07-2015 02-07-2015 Chronic Screening and history of mental health and substance abuse codes (9 sources) Ex-smoker; Translations: [Personal history of nicotine dependence] 04-22-2021 Episodic Spondylosis; intervertebral disc disorders; other back problems (20 sources) Sciatica; Translations: [Sciatica, unspecified side] Episodic Sprains and strains (9 sources) Sprain of ankle; Translations: [Sprain of unspecified ligament of right ankle, initial encounter] 03-25-2016 Episodic Superficial injury; contusion (18 sources) Abrasion and/or friction burn of wrist without infection; Translations: [Abrasion of unspecified wrist, initial encounter] 09-08-2019 Episodic Viral infection (19 sources) COVID-19; Translations: [Pneumonia due to COVID-19 virus] Episodic Past or Other Problems Problem Classification Problem Date Documented Da te Episodic/Chronic Blindness and vision defects (2 sources) Severe myopia; Translations: [Myopia, bilateral] Onset: 02-04-2022 02-04-2022 Episodic Diabetes mellitus without complication (3 sources) Hyperglycemia; Translations: [Hyperglycemia, unspecified] Onset: 01-18-2024 01-15-2024 Episodic Menstrual disorders (4 sources) Menometrorrhagia; Translations: [Excessive and frequent menstruation with irregular cycle] Onset: 01-22-2015 Resolved: 07-06-2015 07-06-2015 Chronic Other eye disorders (3 sources) Meibomian gland dysfunction of bilateral eyes; Translations: [Meibomian gland dysfunction right eye, upper and lower eyelids] Onset: 02-04-2022 Episodic Other injuries and conditions due to external causes (1 source) Foreign body in right ear, initial encounter; Translations: [Foreign body in right ear, initial encounter] Onset: 12-28-2023 Episodic Prolapse of female genital organs (4 sources) Second degree uterine prolapse; Translations: [Incomplete uterovaginal prolapse] Onset: 05-23-2015 Resolved: 07-06-2015 07-06-2015 Chronic Residual codes; unclassified (2 sources) Abnormal cytology findings; Translations: [ASCUS with positive high risk HPV] Onset: 01-22-2015 Resolved: 07-06-2015 07-06-2015 Episodic Skin and subcutaneous tissue infections (3 sources) Abscess of abdominal wall; Translations: [Cutaneous abscess of abdominal wall] Onset: 02-11-2024 01-15-2024 Episodic Unclassified (6 sources) ULCERS 10-25-2021 Results Test Name Value Interpretation Reference Range Facility Culture, Anaerobic Any Sourc paresh 10-24-2024 CUAN No growth in 5 days. Normal [facility] Comment on above: Performed By: #### L 499.0042 #### [facility] [place], [address] pH, Body Fluid 11037ix 10-24 PH, BODY FLUID 7.8 Normal Not Estab. [facility] Comment on above: Order Comment: Test( s) 651323-[id number], Body Fluidwas developed and its performance characteristicsdetermined by [facility]. It has not been cleared or approvedby the Food and Drug Administration. Result Comment: The reference interval(s) and other method performance specifications have not been established for this body fluid. The test result must be integrated into the clinical context for interpretation. Performed at: [address] [id number] Electromechanical Engineer: Castro Medina MD, Phone: [phone] Performed By: #### L 501.6900, L500.2500, L503.6005, L100.0100 #### [facility] [address] [place], [address] Body Fluid Culton 10-23-2024 BFC No growth aerobically. Normal [facility] Comment on above: Performed By: #### M 100.2900, M100.2000, M100.4001, L350.1000, L200.0200 ####[facility] [address] [place], [address] Culture, Blood (WB)on 2024 CUB Blood cultures x2, f rom two different sites No growth in 5 days. Normal [facility] Comment on above: Performed By: #### L 501.6900, L500.2500, L503.6005, L100.0100 #### [facility] [address] [place], [address] Basic Metabolic Profile (BMP )on 10-20-2024 BUN Normal 4-19 [facility] Comment on above: Result Comment: Canc elled via OM: Order cancelled - Patient discharged Performed By: #### L 500.2500 #### [facility] [address] [place], [address] BUN/CRE Normal - [facility] Comment on above: Result Comment: Canc elled via OM: Order cancelled - Patient discharged Performed By: #### L 500.2500 #### [facility] [address] [place], [address] Calcium Normal 7.6-11.0 [facility] Comment on above: Result Comment: Canc elled via OM: Order cancelled - Patient discharged Performed By: #### L 500.2500 #### [facility] [address] [place], [address] CL Normal 98-108 [facility] Comment on above: Result Comment: Canc elled via OM: Order cancelled - Patient discharged Performed By: #### L 500.2500 #### [facility] [address] [place], [address] CO2 Normal 21.0-32.0 [facility] Comment on above: Result Comment: Canc elled via OM: Order cancelled - Patient discharged Performed By: #### L 500.2500 #### [facility] [address] [place], [address] CREAT,SERUM Normal 0.70-1.20 [facility] Comment on above: Result Comment: Canc elled via OM: Order cancelled - Patient discharged Performed By: #### L 500.2500 #### [facility] [address] [place], [address] eGFR Normal >60 [facility] Comment on above: Result Comment: Canc elled via OM: Order cancelled - Patient discharged Performed By: #### L 500.2500 #### [facility] [address] [place], [address] GAP Normal 5-15 [facility] Comment on above: Result Comment: Canc elled via OM: Order cancelled - Patient discharged Performed By: #### L 500.2500 #### [facility] [address] [place], [address] GLU Normal 70-99 [facility] Comment on above: Result Comment: Canc elled via OM: Order cancelled - Patient discharged Performed By: #### L 500.2500 #### [facility] [address] [place], [address] Potassium Normal 3.3-5.1 [facility] Comment on above: Result Comment: Canc elled via OM: Order cancelled - Patient discharged Performed By: #### L 500.2500 #### [facility] [address] [place], [address] Basic Metabolic Profile (BMP) Normal 133-145 [facility] Comment on above: Result Comment: Canc elled via OM: Order cancelled - Patient discharged Performed By: #### L 500.2500 #### [facility] [address] [place], [address] Body Fluid Cell Count+Diffon 10-20-2024 PATH COMM/BF Reviewed Normal [facility] Comment on above: Order Comment: The r eference interval(s) and other method performancespecifications are unavailable for this body fluid.Comparison of the result with concentration in the blood,serum, or plasma is recommended. Result Comment: Reac tive Mesothelial Cells, Chronic Inflammation. No Malignant Cells Identified. MS:1202pm 10/20/24 Reactive Mesothelial Cells; Chronic Inflammation. No Malignant Cells Identified. MS: 1202pm 10/20/24 AMENDED REPORT 10/20/24 1355 PATH COMM/BF previously reported as: May follow Performed By: #### M 100.2900, M100.2000, M100.4001, L350.1000, L200.0200 ####[facility] [address] [place], [address] Absolute lymphocyte countOrd ered By: Darvin Posey on 10-19-2024 Lymphocytes Auto (Unsp spec) [#/Vol] 1.73 10*3/uL 0.83-4.51 [facility] Absolute neutrophil countOrd ered By: Darvin Posey on 10-19-2024 Neutrophils (Bld) [#/Vol] 4.0 10*3/uL 2.0-7.7 [facility] Anion gap in Serum or Plasma Ordered By: Darvin Posey on 10-19-2024 Anion gap [Moles/Vol] 11 mmol/L 5-15 [facility] Automated lymphocyte count a s percentage of total leukocytesOrdered By: Darvin Posey on 10-19-2024 Lymphocytes/100 WBC Auto (Unsp spec) 26.5 % 19-41 [facility] BUN/creatinine ratioOrdered By: Darvin Posey on 10-19-2024 Urea nitrogen/Creatinine [Mass ratio] 35.2 mg/mg High 10-20 [facility] Basophil percentageOrdered B y: Darvin Posey on 10-19-2024 Basophils/100 WBC (Bld) 0.5 % 0-1 [facility] Bedside Glucoseon 10-19-2024 FINGERSTICK GLU 154 mg/dL High 74-106 [facility] Comment on above: Result Comment: LUCIO GEMENT OF PATIENT CARE PER NURSING PROTOCOL Performed By: #### L 501.080 ####[facility] [address] [facility], [facility] [address] FINGERSTICK GLU 181 mg/dL High [address] [place] [address] Comment on above: Result Comment: LUCIO GEMENT OF PATIENT CARE PER NURSING PROTOCOL Performed By: #### L 501.6900, L500.2500, L503.6005, L100.0100 #### [facility] [address] [place], [address] FINGERSTICK GLU 275 mg/dL High [address] [place] [address] Comment on above: Result Comment: LUCIO GEMENT OF PATIENT CARE PER NURSING PROTOCOL Performed By: #### L 501.6900, L500.2500, L503.6005, L100.0100 #### [facility] [address] [place], [address] Bilirubin, totalOrdered By: Darvin Posey on 10-19-2024 Bilirubin [Mass/Vol] 0.29 mg/dL 0.00-1.30 [facility] Body fluid appearance (nomin al result)Ordered By: Darvin Posey on 10-19-2024 Appearance (Body fld) CLEAR [facility] Body fluid color determinati onOrdered By: Darvin Posey on 10-19-2024 Color (Body fld) YELLOW [facility] Body fluid lactate dehydroge nase measurement (enzymatic activity/volume) by pyruvateOrdered By: Darvin Posey on 10-19-2024 LDH Pyruvate to lactate reaction (Body fld) [Catalytic activity/Vol] 82 Units/L Not Establ. [facility] Body fluid leukocytes count (number/volume)Ordered By: Darvin Posey on 10-19-2024 WBC (Body fld) [#/Vol] 0.150 10*3/uL [facility] Body fluid lymphocytes/100 l eukocytesOrdered By: Darvin Posey on 10-19-2024 Lymphocytes/100 WBC (Body fld) 45 % [facility] Body fluid macrophage countO rdered By: Darvin Posey on 10-19-2024 Macrophages (Body fld) [#/Vol] 24 % [facility] Body fluid mesothelial cell percentageOrdered By: Darvin Posey on 10-19-2024 Mesothelial cells/100 WBC (Body fld) 10 % [facility] Body fluid mononuclear cell percentageOrdered By: Darvin Posey on 10-19-2024 Mononuclear cells/100 WBC (Body fld) 88.7 % [facility] Body fluid other cell count as percentage of leukocytesOrdered By: Darvin Posey on 10-19-2024 Other cells/100 WBC (Body fld) 1 % [facility] Comment on above: EOSINOPHIL Body fluid protein measureme nt (mass/volume)Ordered By: Darvin Posey on 10-19-2024 Protein (Body fld) [Mass/Vol] 1.5 g/dL Not Establ. [facility] Body fluid segmented neutrop hils count (number/volume)Ordered By: Darvin Posey on 10-19-2024 Segmented neutrophils (Body fld) [#/Vol] 8 % [facility] Body fluid total cell countO rdered By: Darvin Posey on 10-19-2024 Cells Counted Total (Body fld) [#] 0.188 10^3/ul High 0.000-0.00 0 [facility] Comment on above: This is the Total Nu mber of Nucleated Cell Types in the Body Fluid. CBC W/Diff, Automatedon 07-04 11-2024 Absolute Lymph 1.73 X10 3/uL Normal 0.83-4.51 [facility] Comment on above: Performed By: #### L 001.0705, L501.9985, L100.0100, L501.9520, L504.2610, L500.4050 ####[facility] [address] [place], [address] Absolute Neut 4.0 X10 3/uL Normal 2.0-7.7 [facility] Comment on above: Performed By: #### L 001.0705, L501.9985, L100.0100, L501.9520, L504.2610, L500.4050 ####[facility] [address] [place], [address] Basophils/100 WBC (Bld) 0.5 % Normal 0-1 [facility] Comment on above: Performed By: #### L 001.0705, L501.9985, L100.0100, L501.9520, L504.2610, L500.4050 ####[facility] [address] [place], [address] Eosinophils/100 WBC (Bld) 2.0 % Normal 0-5 [facility] Comment on above: Performed By: #### L 001.0705, L501.9985, L100.0100, L501.9520, L504.2610, L500.4050 ####[facility] [address] [place], [address] Erythrocyte distribution width (RBC) [Ratio] 14.5 % Normal 11.6-14.6 [facility] Comment on above: Performed By: #### L 001.0705, L501.9985, L100.0100, L501.9520, L504.2610, L500.4050 ####[facility] [address] [place], [address] Hematocrit (Bld) [Volume fraction] 33.1 % Low 37-47 [facility] Comment on above: Performed By: #### L 001.0705, L501.9985, L100.0100, L501.9520, L504.2610, L500.4050 ####[facility] [address] [place], [address] Hemoglobin (Bld) [Mass/Vol] 11.0 g/dL Low 12.0-15.0 [facility] Comment on above: Performed By: #### L 001.0705, L501.9985, L100.0100, L501.9520, L504.2610, L500.4050 ####[facility] [address] [place], [address] IG% 1.700 High 0.0-0.9 [facility] Comment on above: Result Comment: IG% - Immature Granulocytes (promyelocytes, myelocytes and metamyelocytes) > 1% indicates that a LEFT SHIFT is Present. Performed By: #### L 001.0705, L501.9985, L100.0100, L501.9520, L504.2610, L500.4050 ####[facility] [address] [place], [address] Lymphocytes/100 WBC (Bld) 26.5 % Normal 19-41 [facility] Comment on above: Performed By: #### L 001.0705, L501.9985, L100.0100, L501.9520, L504.2610, L500.4050 ####[facility] [address] [place], [address] MCH (RBC) [Entitic mass] 29.3 pg Normal 27.0-32.0 [facility] Comment on above: Performed By: #### L 001.0705, L501.9985, L100.0100, L501.9520, L504.2610, L500.4050 ####[facility] [address] [place], [address] MCHC (RBC) [Mass/Vol] 33.2 g/dL Normal 32-36 [facility] Comment on above: Performed By: #### L 001.0705, L501.9985, L100.0100, L501.9520, L504.2610, L500.4050 ####[facility] [address] [place], [address] MCV (RBC) [Entitic vol] 88.3 fL Normal 81-99 [facility] Comment on above: Performed By: #### L 001.0705, L501.9985, L100.0100, L501.9520, L504.2610, L500.4050 ####[facility] [address] [place], [address] Monocytes/100 WBC (Bld) 7.7 % Normal 0-10 [facility] Comment on above: Performed By: #### L 001.0705, L501.9985, L100.0100, L501.9520, L504.2610, L500.4050 ####[facility] [address] [place], [address] Neutrophils/100 WBC (Bld) 61.6 % Normal 47-70 [facility] Comment on above: Performed By: #### L 001.0705, L501.9985, L100.0100, L501.9520, L504.2610, L500.4050 ####[facility] [address] [place], [address] Nucleated RBC (Bld) [#/Vol] 0 10*3/uL Normal 0-5 [facility] Comment on above: Performed By: #### L 001.0705, L501.9985, L100.0100, L501.9520, L504.2610, L500.4050 ####[facility] [address] [place], [address] Platelet mean volume (Bld) [Entitic vol] 10.0 fL Normal 6.2-12.0 [facility] Comment on above: Performed By: #### L 001.0705, L501.9985, L100.0100, L501.9520, L504.2610, L500.4050 ####[facility] [address] [place], [address] Platelets (Bld) [#/Vol] 199 10*3/uL Normal 150-450 [facility] Comment on above: Performed By: #### L 001.0705, L501.9985, L100.0100, L501.9520, L504.2610, L500.4050 ####[facility] [address] [place], [address] RBC (Bld) [#/Vol] 3.75 10*6/uL Low 4.2-5.4 [facility] Comment on above: Performed By: #### L 001.0705, L501.9985, L100.0100, L501.9520, L504.2610, L500.4050 ####[facility] [address] [place], [address] RDW SD 45.1 fl High 35.1-43.9 [facility] Comment on above: Performed By: #### L 001.0705, L501.9985, L100.0100, L501.9520, L504.2610, L500.4050 ####[facility] [address] [place], [address] WBC (Bld) [#/Vol] 6.5 10*3/uL Normal 4.4-11.0 [facility] Comment on above: Performed By: #### L 001.0705, L501.9985, L100.0100, L501.9520, L504.2610, L500.4050 ####[facility] [address] [place], [address] Carbon dioxide, total [Moles /volume] in Central venous bloodOrdered By: Darvin Posey on 10-19-2024 CO2 [Moles/Vol] 22.2 mmol/L 21.0-32.0 [facility] Chest Insp/Exp 2 Viewon 10-04 Chest Insp/Exp 2 View [facility] Imaging Services [address] [place], [place] [address] Chest Insp/Exp 2 View MR#: [id number] Acct: [id number] Name: MARIA ISABEL VANN Rep #: [id number] : 1970 F 54 From: Fred Herrera MD PCP: Dr. Sapna Ray DO Status: ADM IN Study: Chest Insp/Exp 2 View Date of Exam: 10/19/24 Exam# [id number] Ordering Dr: Carlos Pimentel EXAM: XR Chest, 1 View CLINICAL INDICATION: POST THORACENTESIS TECHNIQUE: Frontal view of the chest. COMPARISON: No relevant prior studies available. FINDINGS: LUNGS AND PLEURAL SPACES: Trace bilateral pleural effusions. Pulmonary venous congestion. No pneumothorax. HEART: Unremarkable. No cardiomegaly. MEDIASTINUM: Unremarkable. Normal mediastinal contour. BONES/JOINTS: Unremarkable. No acute fracture. RAD/Chest Insp/Exp 2 View IMPRESSION: 1. No pneumothorax. 2. Trace bilateral pleural effusions. 3. Pulmonary venous congestion. Reading [facility] CC: Dr. Carlos Pimentel MD; Dr. Sapna Ray DO Pit Supervisor: Signed Normal [facility] Chloride assayOrdered By: Khanh Posey on 10-19-2024 Chloride [Moles/Vol] 103 mmol/L 98-108 [facility] Comprehensive Metabolic Prof ilon 10-19-2024 Albumin [Mass/Vol] 3.3 g/dL Low 3.5-5.0 [facility] Comment on above: Performed By: #### L 001.0705, L501.9985, L100.0100, L501.9520, L504.2610, L500.4050 ####[facility] [address] [place], [address] ALK PHOS 80 U/L Normal 35-104 [facility] Comment on above: Performed By: #### L 001.0705, L501.9985, L100.0100, L501.9520, L504.2610, L500.4050 ####[facility] [address] [place], [address] ALT [Catalytic activity/Vol] 28 U/L Normal <=34 [facility] Comment on above: Performed By: #### L 001.0705, L501.9985, L100.0100, L501.9520, L504.2610, L500.4050 ####[facility] [address] [place], [address] AST [Catalytic activity/Vol] 36 U/L High <=31 [facility] Comment on above: Performed By: #### L 001.0705, L501.9985, L100.0100, L501.9520, L504.2610, L500.4050 ####[facility] [address] [place], [address] Bilirubin [Mass/Vol] 0.29 mg/dL Normal 0.00-1.30 [facility] Comment on above: Performed By: #### L 001.0705, L501.9985, L100.0100, L501.9520, L504.2610, L500.4050 ####[facility] [address] [place], [address] BUN/CRE 35.2 RATIO High 10-20 [facility] Comment on above: Performed By: #### L 001.0705, L501.9985, L100.0100, L501.9520, L504.2610, L500.4050 ####[facility] [address] [place], [address] Calcium [Mass/Vol] 9.0 mg/dL Normal 7.6-11.0 [facility] Comment on above: Performed By: #### L 001.0705, L501.9985, L100.0100, L501.9520, L504.2610, L500.4050 ####[facility] [address] [place], [address] Chloride [Moles/Vol] 103 mmol/L Normal 98-108 [facility] Comment on above: Performed By: #### L 001.0705, L501.9985, L100.0100, L501.9520, L504.2610, L500.4050 ####[facility] [address] [place], [address] CO2 [Moles/Vol] 22.2 mmol/L Normal 21.0-32.0 [facility] Comment on above: Performed By: #### L 001.0705, L501.9985, L100.0100, L501.9520, L504.2610, L500.4050 ####[facility] [address] [place], [address] Creatinine [Mass/Vol] 0.86 mg/dL Normal 0.70-1.20 [facility] Comment on above: Performed By: #### L 001.0705, L501.9985, L100.0100, L501.9520, L504.2610, L500.4050 ####[facility] [address] [place], [address] ECRCL 83.55 ml/min Normal 50-250 [facility] Comment on above: Performed By: #### L 001.0705, L501.9985, L100.0100, L501.9520, L504.2610, L500.4050 ####[facility] [address] [place], [address] GAP 11 Normal 5-15 [facility] Comment on above: Performed By: #### L 001.0705, L501.9985, L100.0100, L501.9520, L504.2610, L500.4050 ####[facility] [address] [place], [address] GFR/1.73 sq M.predicted among non-blacks MDRD (S/P/Bld) [Vol rate/Area] 81 mL/min/{1.73_m2} Normal >60 [facility] Comment on above: Result Comment: mL/m in/1.73m2 CKD-EPI Creatinine Equation (2020) Performed By: #### L 001.0705, L501.9985, L100.0100, L501.9520, L504.2610, L500.4050 ####[facility] [address] [place], [address] Glucose [Mass/Vol] 299 mg/dL High 70-99 [facility] Comment on above: Performed By: #### L 001.0705, L501.9985, L100.0100, L501.9520, L504.2610, L500.4050 ####[facility] [address] [place], [address] Potassium [Moles/Vol] 5.0 mmol/L Normal 3.3-5.1 [facility] Comment on above: Performed By: #### L 001.0705, L501.9985, L100.0100, L501.9520, L504.2610, L500.4050 ####[facility] [address] [place], [address] Sodium [Moles/Vol] 136 mmol/L Normal 133-145 [facility] Comment on above: Performed By: #### L 001.0705, L501.9985, L100.0100, L501.9520, L504.2610, L500.4050 ####[facility] [address] [place], [address] Urea nitrogen [Mass/Vol] 30 mg/dL High 4-19 [facility] Comment on above: Performed By: #### L 001.0705, L501.9985, L100.0100, L501.9520, L504.2610, L500.4050 ####[facility] [address] [place], [address] Cytology, Body Fluid / CSFon 10-19-2024 CYTOLOGY,BF/CSF SEE PATHOLOGY REPORT Normal [facility] Comment on above: Result Comment: Spec imen submitted to Anatomical Pathology Department for testing. Performed By: #### L 499.0042 #### [facility] [address] [place], [address] Electrocardiogram reportOrde red By: Rahat Franklin on 10-19-2024 EKG study [facility] Cardiovascular Services [address] [place] [address] 12 Lead EKG 10/18/24 1008 MR#: [id number] Acct: [id number] Name: MARIA ISABEL VANN Rep #:[id number] : 1970 54 From: Rahat sharp MD Attending Dr: Dr. Darvin Posey, DO Status: ADM IN Ordering Dr: Satya Mendenhall ate: 10/18/24 Location: [facility] Sex: F C Admitted: 10/18/24 Test Reason : SOB Blood Pressure : */* mmHG Vent. Rate : 109 BPM Atrial Rate : 109 BPM P-R Int : 134 ms QRS Dur : 138 ms QT Int : 390 ms P-R-T Axes : 22 -13 106 degrees QTcB Int : 525 ms Sinus tachycardia Non-specific intra-ventricular conduction block Cannot rule out Septal infarct , age undetermined Abnormal ECG Confirmed by Rahat Franklin ([id number]), metropolitan editor [place]ORES ([id number]) on 10/19/2024 11:24:53 AM Referred By: Confirmed By: Rahat Franklin 10/19/24 1124 Date _ Rahat Franklin MD CC: Dr. Satya Mendenhall, DO; Dr. Darvin Posey, DO; Dr. Sapna Ray DO ~ Signed [facility] Other Phone: Eosinophil percentageOrdered By: Darvin Posey on 10-19-2024 Eosinophils/100 WBC (Bld) 2.0 % 0-5 [facility] Erythrocyte distribution wid th ratioOrdered By: Darvin Posey on 10-19-2024 Erythrocyte distribution width (RBC) [Ratio] 14.5 % 11.6-14.6 [facility] Erythrocyte distribution wid th standard deviationOrdered By: Darvin Posey on 10-19-2024 Erythrocyte distribution width (RBC) [Ratio] 45.1 fl High 35.1-43.9 [facility] Glomerular filtration rate ( GFR) estimation/1.73 sq m using serum, plasma, or whole bOrdered By: Darvin Posey on 10-19-2024 GFR/1.73 sq M.predicted among non-blacks MDRD (S/P/Bld) [Vol rate/Area] 81 mL/min/{1.73_m2} >60 [facility] Comment on above: mL/min/1.73m2 CKD-EP I Creatinine Equation (2020) [facility] deOrdered By: Darvin Posey on 10-19-2024 Glucose [Mass/Vol] 154 mg/dL High 74-106 [facility] Comment on above: MANAGEMENT OF PATIEN T CARE PER NURSING PROTOCOL Glucose, Body Fluidon 2024 GLUC, BODY FLD 248 mg/dL Normal Not Establ. [facility] Comment on above: Performed By: #### L 501.6900, L500.2500, L503.6005, L100.0100 #### [facility] [address] [place], [address] Gram Stainon 10-19-2024 GS Centrifuged Specimen ? Culture performed on centrifuged specimen Gram Stain No organisms seen No cells seen Normal [facility] Comment on above: Performed By: #### M 100.2900, M100.2000, M100.4001, L350.1000, L200.0200 ####[facility] [address] [place], [address] Gram stainOrdered By: Darvin xiong on 10-19-2024 Microscopic observation Gram stain Nom (Unsp spec) [facility] Hematocrit Auto (Bld) [Volum e fraction]Ordered By: Darvin Posey on 10-19-2024 Hematocrit (Bld) [Volume fraction] 33.1 % Low 37-47 [facility] Hemoglobin A1con 10-19-2024 HbA1c (Bld) [Mass fraction] 12.3 % High <=5.6 [facility] Comment on above: Result Comment: Norm al < 5.7 % Prediabetic 5.7 - 6.4 % Diabetic >or= 6.5 % Please note range changes. Performed By: #### L 001.0705, L501.9985, L100.0100, L501.9520, L504.2610, L500.4050 ####[facility] [address] [place], [address] Hemoglobin A1c percentageOrd ered By: Darvin Posey on 10-19-2024 HbA1c (Bld) [Mass fraction] 12.3 % High <5.7 [facility] Comment on above: Normal < 5.7 % Predi abetic 5.7 - 6.4 % Diabetic >or= 6.5 % Please note range changes. Hemoglobin measurementOrdere d By: Darvin Posey on 10-19-2024 Hemoglobin (Bld) [Mass/Vol] 11.0 g/dL Low 12.0-15.0 [facility] Immature granulocytes/100 WB C Auto (Bld)Ordered By: Darvin Posey on 10-19-2024 Immature granulocytes/100 WBC (Bld) 1.700 % High 0.0-0.9 [facility] Comment on above: IG% - Immature Granu locytes (promyelocytes, myelocytes and metamyelocytes) > 1% indicates that a LEFT SHIFT is Present. LDHon 10-19-2024 LDH 221 U/L Normal 84-246 [facility] Comment on above: Performed By: #### L 001.0705, L501.9985, L100.0100, L501.9520, L504.2610, L500.4050 ####[facility] [address] [place], [address] LDH,Body Fluidon 10-19-2024 LDH,BF 82 Units/L Normal Not Establ. [facility] Comment on above: Performed By: #### L 501.6900, L500.2500, L503.6005, L100.0100 #### [facility] [address] [place], [address] Laboratory - Chemistry and C hemistry - challengeOrdered By: Darvin Posey on 10-19-2024 AST [Catalytic activity/Vol] 36 U/L High <32 [facility] Lactate dehydrogenase (LDH) measurementOrdered By: Darvin Posey on 10-19-2024 LDH [Catalytic activity/Vol] 221 U/L 84-246 [facility] MCV (mean corpuscular volume ) determinationOrdered By: Darvin Posey on 10-19-2024 MCV (RBC) [Entitic vol] 88.3 fL 81-99 [facility] Mean corpuscular hemoglobin (MCH) determinationOrdered By: Darvin Posey on 10-19-2024 MCH (RBC) [Entitic mass] 29.3 pg 27.0-32.0 [facility] Mean corpuscular hemoglobin concentration (MCHC) determinationOrdered By: Darvin Posey on 10-19-2024 MCHC (RBC) [Mass/Vol] 33.2 g/dL 32-36 [facility] Mean platelet volume determi nationOrdered By: Darvin Posey on 10-19-2024 Platelet mean volume (Bld) [Entitic vol] 10.0 fL 6.2-12.0 [facility] Monocyte detectionOrdered By : Darvin Posey on 10-19-2024 Monocytes/100 WBC (Bld) 12 % [facility] Monocyte percentageOrdered B y: Darvin Posey on 10-19-2024 Monocytes/100 WBC (Bld) 7.7 % 0-10 [facility] Neutrophil percentageOrdered By: Darvin Posey on 10-19-2024 Neutrophils/100 WBC (Bld) 61.6 % 47-70 [facility] No Panel InformationOrdered By: Darvin Posey on 10-19-2024 Body Fluid Comment 2 SEE COMMENT [facility] Body Fluid RBC 605 /mm3 [facility] Nucleated red blood cell per centageOrdered By: Darvin Posey on 10-19-2024 Nucleated RBC/100 WBC (Bld) [Ratio] 0 % 0-5 [facility] Operative Reporton Operative Report [facility] Medical Records Department [address] [place] [address] Operative Report 10/19/24 1347 MR#: [id number] Acct: [id number] Name: MARIA ISABEL VANN Rep #: [id number] : 1970 54 From: Lyndsey SPEARS PCP: Dr. Sapna Ray, DO Status:ADM IN Location: [place] [address] Problems Associated Problem List Diagnoses (1) Pleural effusion: Multi Select Codes Radiology Radiology US Procedures: 73304 Thoracentesis Operative Report (Standard) Operative Information Date of Procedure: 10/19/24 Pre-Operative Diagnosis: Pleural effusion Post-Operative Diagnosis: Pleural effusion Surgery/Procedure Performed: Ultrasound-guided thoracentesis pattern chart writer: No Type of Anesthesia: Local Procedure Start Time: 13:32 Procedure Stop Time: 13:44 Select all DRAINS/GRAFTS/IMPLANTS that apply: None Estimated Blood Loss: 0 Specimen collected: Yes Description of specimen(s) removed: 100 mL of clear dark yellow fluid Description of surgery: PROCEDURE: Ultrasound Guided Thoracentesis, right ORDERING PROVIDER: Dr. Posey INDICATION: Female, 54 years old. Pleural effusion. PROVIDER: SULY Woo PROCEDURE: The risks, benefits, and alternatives to the procedure were explained to the patient. The specific risks of bleeding, infection, and pneumothorax requiring chest tube insertion were discussed and accepted. Written informed consent was obtained. The patient was placed in the sitting, upright position. Ultrasonographic evaluation of the bilateral lower pleural spaces was carried out. An adequate pocket was identified in the right lower pleural space. The overlying skin was prepped with chlorhexidine and draped in sterile fashion. 2 % lidocaine was administered subcutaneously for local anesthesia. Under ultrasound guidance, a 5- Azerbaijani thoracentesis needle/catheter system was advanced into the right posterior lower pleural fl uid collection. 1180 ml of clear dark yellow colored fluid was drained. A sample was sent to the lab for diagnostic purposes. The catheter was removed, and a sterile dressing was applied. The patient tolerated the procedure well without any immediate complications. A chest x-ray was ordered. There was no evidence of pneumothorax. IMPRESSION: Successful ultrasound guided thoracentesis of right pleural effusion. Surgical Findings: None Complications Complications: No 10/19/24 1353 Cosigner Signature (if applicable): CC: RICE DRIERLizbeth Armstrong; Dr. Sapna Ray DO Signed Normal [facility] Pathologist interpretation o f Body fluid testsOrdered By: Darvin Posey on 10-19-2024 Pathologist interpretation (Body fld) [Interp] May follow [facility] Platelet countOrdered By: Khanh Posey on 10-19-2024 Platelets (Bld) [#/Vol] 199 10*3/uL 150-450 [facility] Potassium measurement (mass/ volume)Ordered By: Darvin Posey on 10-19-2024 Potassium (Unsp spec) [Mass/Vol] 5.0 mmol/L 3.3-5.1 [facility] Protein, Body Fluidon 2024 Protein [Mass/Vol] 1.5 g/dL Normal Not Establ. [facility] Comment on above: Performed By: #### L 501.6900, L500.2500, L503.6005, L100.0100 #### [facility] [address] [place], [address] Protein, Totalon 10-19-2024 Albumin/Globulin [Mass ratio] 1.2 {ratio} Normal 0.9-2.4 [facility] Comment on above: Performed By: #### L 001.0705, L501.9985, L100.0100, L501.9520, L504.2610, L500.4050 ####[facility] [address] [place], [address] Globulin (S) [Mass/Vol] 2.9 g/dL Normal 2.2-4.2 [facility] Comment on above: Performed By: #### L 001.0705, L501.9985, L100.0100, L501.9520, L504.2610, L500.4050 ####[facility] [address] [place], [address] T PROT 6.2 g/dL Normal 5.9-8.4 [facility] Comment on above: Performed By: #### L 001.0705, L501.9985, L100.0100, L501.9520, L504.2610, L500.4050 ####[facility] [address] [place], [address] RBC Auto (Bld) [#/Vol]Ordere d By: Darvin Posey on 10-19-2024 RBC (Bld) [#/Vol] 3.75 10*6/uL Low 4.2-5.4 [facility] Serum creatinine measurement (mass/volume)Ordered By: Darvin Posey on 10-19-2024 Creatinine [Mass/Vol] 0.86 mg/dL 0.70-1.20 [facility] Serum globulin measurementOr dered By: Darvin Posey on 10-19-2024 Globulin (S) [Mass/Vol] 2.9 g/dL 2.2-4.2 [facility] Serum glucose measurement (m ass/volume)Ordered By: Darvin Posey on 10-19-2024 Glucose [Mass/Vol] 299 mg/dL High 70-99 [facility] Serum or plasma alanine gonzalez otransferase (ALT) measurementOrdered By: Darvin Posey on 10-19-2024 ALT [Catalytic activity/Vol] 28 U/L <35 [facility] Serum or plasma albumin cherelle urement (mass/volume)Ordered By: Darvin Posey on 10-19-2024 Albumin [Mass/Vol] 3.3 g/dL Low 3.5-5.0 [facility] Serum or plasma albumin/glob ulin mass ratioOrdered By: Darvin Posey on 10-19-2024 Albumin/Globulin [Mass ratio] 1.2 {ratio} 0.9-2.4 [facility] Serum or plasma alkaline caryl sphatase measurementOrdered By: Darvin Posey on 10-19-2024 ALP [Catalytic activity/Vol] 80 U/L 35-104 [facility] Serum or plasma calcium cherelle urement (mass/volume)Ordered By: Darvin Posey on 10-19-2024 Calcium [Mass/Vol] 9.0 mg/dL 7.6-11.0 [facility] Serum or plasma urea nitroge n measurement (mass/volume)Ordered By: Darvin Posey on 10-19-2024 Urea nitrogen [Mass/Vol] 30 mg/dL High 4-19 [facility] Sodium levelOrdered By: Darvin Posey on 10-19-2024 Sodium [Moles/Vol] 136 mmol/L 133-145 [facility] Special Stain Group IIon Special Stain Group II Patient Age/Sex Location Account Attending Physician MARIA ISABEL VANN 54/F [facility] [id number] Dr. Darvin Posey DO Specimen: [id number] Received: 10/19/24 Status: NENA Radha Num: [id number] Spec Type: Fluid Subm Dr: Dr. Darvin Posey DO HEADER OPERATION: Ultrasound-Guided Thoracentesis, Right PRE-OP DIAGNOSIS: Pleural Effusion TISSUE SUBMITTED: Right Pleural Fluid DIAGNOSIS CYTOLOGY A. Right pleural fluid, cytospin and cellblock, thoracentesis: - No malignant cells identified. CYTOLOGY STUDY Slides are reviewed. CYTOLOGY GROSS Received is 80 ml of dark yellow cloudy fluid labeled with the patient's name and and designated per the requisition as Pleural Fluid.Submitted for cytology and cell block preparation. CPT: 61456,63684 Signed (signature on file) Dr. Pippa Arboleda MD 10/21/24 1437 Normal [facility] Comment on above: Performed By: #### L 501.6900, L500.2500, L503.6005, L100.0100 #### [facility] [address] [place], [place], [id number] Specimen source identificati on of body fluidOrdered By: Darvin Posey on 10-19-2024 Specimen source Nom (Body fld) PLEURAL FLUID [facility] TSH DL <= 0.005 mIU/L QnOrde red By: Darvin Posey on 10-19-2024 TSH Qn 1.130 uIU/mL 0.300-4.20 0 [facility] Thyroid Stim Hormone (TSH)on 10-19-2024 TSH 1.130 uIU/mL Normal 0.300-4.20 0 [facility] Comment on above: Performed By: #### L 001.0705, L501.9985, L100.0100, L501.9520, L504.2610, L500.4050 ####[facility] [address] [place], [place], [id number] Total proteinOrdered By: Neetu Posey on 10-19-2024 Protein [Mass/Vol] 6.2 g/dL 5.9-8.4 [facility] White blood cell (WBC) count Ordered By: Darvin Posey on 10-19-2024 WBC (Bld) [#/Vol] 6.5 10*3/uL 4.4-11.0 [facility] 12 Lead EKGon 10-18-2024 12 Lead EKG [facility] Cardiovascular Services [address] [place] [address] 12 Lead EKG 10/18/24 1008 MR#: [id number] Acct: [id number] Name: MARIA ISABEL VANN Rep #: [id number] : 1970 54 From: Rahat Franklin MD Attending Dr: Dr. Darvin Posey DO Status: ADM IN Ordering Dr: Satya Mendenhall DO Date: 5 Location: [facility] Sex: F C Admitted: 10/18/24 Test Reason : SOB Blood Pressure : */* mmHG Vent. Rate : 109 BPM Atrial Rate : 109 BPM P-R Int : 134 ms QRS Dur : 138 ms QT Int : 390 ms P-R-T Axes : 22 -13 106 degrees QTcB Int : 525 ms Sinus tachycardia Non-specific intra-ventricular conduction block Cannot rule out Septal infarct , age undetermined Abnormal ECG Confirmed by Rahat Franklin ([id number]), metropolitan editor [place] FLORES ([id number]) on 10/19/2024 11:24:53 AM Referred By: Confirmed By: Rahat Franklin 10/19/24 1124 Date Rahat Franklin MD CC: Dr. Satya Mendenhall DO; Dr. Darvin Posey DO; Dr. Sapna Ray DO Signed Normal [facility] Absolute lymphocyte countOrd ered By: Satya Mendenhall on 10-18-2024 Lymphocytes Auto (Unsp spec) [#/Vol] 1.63 10*3/uL 0.83-4.51 [facility] Absolute neutrophil countOrd ered By: Satya Mendenhall on 10-18-2024 Neutrophils (Bld) [#/Vol] 3.3 10*3/uL 2.0-7.7 [facility] Anion gap in Serum or Plasma Ordered By: Satya Mendenhall on 10-18-2024 Anion gap [Moles/Vol] 12 mmol/L 08-18 [facility] Automated lymphocyte count a s percentage of total leukocytesOrdered By: Satya Mendenhall on 10-18-2024 Lymphocytes/100 WBC Auto (Unsp spec) 28.6 % [facility] BUN/creatinine ratioOrdered By: Satya [facility] Hospital[facility] on 10-18-2024 Urea nitrogen/Creatinine [Mass ratio] 36.8 mg/mg High 01-23 [facility] Basic Metabolic Profile (BMP )on 10-18-2024 BUN/CRE 36.8 RATIO High 01-23 [facility] Comment on above: Performed By: #### L 100.0100, L300.8000, L500.2500 ####[facility] [address] [place], [address] Calcium [Mass/Vol] 8.7 mg/dL Normal 7.6-11.0 [facility] Comment on above: Performed By: #### L 100.0100, L300.8000, L500.2500 ####[facility] [address] [place], [address] Chloride [Moles/Vol] 102 mmol/L Normal 98-108 [facility] Comment on above: Performed By: #### L 100.0100, L300.8000, L500.2500 ####[facility] [address] [place], [address] CO2 [Moles/Vol] 21.3 mmol/L Normal 21.0-32.0 [facility] Comment on above: Performed By: #### L 100.0100, L300.8000, L500.2500 ####[facility] [address] [place], [address] Creatinine [Mass/Vol] 1.01 mg/dL Normal 0.70-1.20 [facility] Comment on above: Performed By: #### L 100.0100, L300.8000, L500.2500 ####[facility] [address] [place], [address] ECRCL 71.13 ml/min Normal 50-250 [facility] Comment on above: Performed By: #### L 100.0100, L300.8000, L500.2500 ####[facility] [address] [place], [address] GAP 12 Normal 5-15 [facility] Comment on above: Performed By: #### L 100.0100, L300.8000, L500.2500 ####[facility] [address] [place], [address] GFR/1.73 sq M.predicted among non-blacks MDRD (S/P/Bld) [Vol rate/Area] 67 mL/min/{1.73_m2} Normal >60 [facility] Comment on above: Result Comment: mL/m in/1.73m2 CKD-EPI Creatinine Equation (2020) Performed By: #### L 100.0100, L300.8000, L500.2500 ####[facility] [address] [place], [address] Glucose [Mass/Vol] 412 mg/dL High 70-99 [facility] Comment on above: Performed By: #### L 100.0100, L300.8000, L500.2500 ####[facility] [address] [place], [address] Potassium [Moles/Vol] 5.3 mmol/L High 3.3-5.1 [facility] Comment on above: Performed By: #### L 100.0100, L300.8000, L500.2500 ####[facility] [address] [place], [address] Sodium [Moles/Vol] 135 mmol/L Normal 133-145 [facility] Comment on above: Performed By: #### L 100.0100, L300.8000, L500.2500 ####[facility] [address] [place], [address] Urea nitrogen [Mass/Vol] 37 mg/dL High 4-19 [facility] Comment on above: Performed By: #### L 100.0100, L300.8000, L500.2500 ####[facility] [address] [place], [address] Basophil percentageOrdered B y: Satya Mendenhall on 10-18-2024 Basophils/100 WBC (Bld) 0.5 % 0-1 [facility] Bedside Glucoseon 10-18-2024 FINGERSTICK GLU 276 mg/dL High 74-106 [facility] Comment on above: Result Comment: LUCIO GEMENT OF PATIENT CARE PER NURSING PROTOCOL Performed By: #### L 501.080 ####[facility] [address] [place], [address] FINGERSTICK GLU 314 mg/dL High 74-106 [facility] Comment on above: Result Comment: LUCIO GEMENT OF PATIENT CARE PER NURSING PROTOCOL Performed By: #### L 501.080 #### [facility] [address] [place], [address] CBC W/Diff, Automatedon 10-04 Absolute Lymph 1.63 X10 3/uL Normal 0.83-4.51 [facility] Comment on above: Performed By: #### L 100.0100, L300.8000, L500.2500 ####[facility] [address] [place], [address] Absolute Neut 3.3 X10 3/uL Normal 2.0-7.7 [facility] Comment on above: Performed By: #### L 100.0100, L300.8000, L500.2500 ####[facility] [address] [place], [address] Basophils/100 WBC (Bld) 0.5 % Normal 0-1 [facility] Comment on above: Performed By: #### L 100.0100, L300.8000, L500.2500 ####[facility] [address] [place], [address] Eosinophils/100 WBC (Bld) 1.6 % Normal 0-5 [facility] Comment on above: Performed By: #### L 100.0100, L300.8000, L500.2500 ####[facility] [address] [place], [address] Erythrocyte distribution width (RBC) [Ratio] 14.4 % Normal 11.6-14.6 [facility] Comment on above: Performed By: #### L 100.0100, L300.8000, L500.2500 ####[facility] [address] [place], [address] Hematocrit (Bld) [Volume fraction] 30.7 % Low 37-47 [facility] Comment on above: Performed By: #### L 100.0100, L300.8000, L500.2500 ####[facility] [address] [place], [address] Hemoglobin (Bld) [Mass/Vol] 10.2 g/dL Low 12.0-15.0 [facility] Comment on above: Performed By: #### L 100.0100, L300.8000, L500.2500 ####[facility] [address] [place], [address] IG% 2.300 High 0.0-0.9 [facility] Comment on above: Result Comment: IG% - Immature Granulocytes (promyelocytes, myelocytes and metamyelocytes) > 1% indicates that a LEFT SHIFT is Present. Performed By: #### L 100.0100, L300.8000, L500.2500 ####[facility] [address] [place], [address] Lymphocytes/100 WBC (Bld) 28.6 % Normal 19-41 [facility] Comment on above: Performed By: #### L 100.0100, L300.8000, L500.2500 ####[facility] [address] [place], [address] MCH (RBC) [Entitic mass] 29.2 pg Normal 27.0-32.0 [facility] Comment on above: Performed By: #### L 100.0100, L300.8000, L500.2500 ####[facility] [address] [place], [address] MCHC (RBC) [Mass/Vol] 33.2 g/dL Normal 32-36 [facility] Comment on above: Performed By: #### L 100.0100, L300.8000, L500.2500 ####[facility] [address] [place], [address] MCV (RBC) [Entitic vol] 88.0 fL Normal 81-99 [facility] Comment on above: Performed By: #### L 100.0100, L300.8000, L500.2500 ####[facility] [address] [place], [address] Monocytes/100 WBC (Bld) 9.1 % Normal 0-10 [facility] Comment on above: Performed By: #### L 100.0100, L300.8000, L500.2500 ####[facility] [address] [place], [address] Neutrophils/100 WBC (Bld) 57.9 % Normal 47-70 [facility] Comment on above: Performed By: #### L 100.0100, L300.8000, L500.2500 ####[facility] [address] [place], [address] Nucleated RBC (Bld) [#/Vol] 0 10*3/uL Normal 0-5 [facility] Comment on above: Performed By: #### L 100.0100, L300.8000, L500.2500 ####[facility] [address] [place], [address] Platelet mean volume (Bld) [Entitic vol] 10.3 fL Normal 6.2-12.0 [facility] Comment on above: Performed By: #### L 100.0100, L300.8000, L500.2500 ####[facility] [address] [place], [address] Platelets (Bld) [#/Vol] 178 10*3/uL Normal 150-450 [facility] Comment on above: Performed By: #### L 100.0100, L300.8000, L500.2500 ####[facility] [address] [place], [address] RBC (Bld) [#/Vol] 3.49 10*6/uL Low 4.2-5.4 [facility] Comment on above: Performed By: #### L 100.0100, L300.8000, L500.2500 ####[facility] [address] [place], [address] RDW SD 44.6 fl High 35.1-43.9 [facility] Comment on above: Performed By: #### L 100.0100, L300.8000, L500.2500 ####[facility] [address] [place], [address] WBC (Bld) [#/Vol] 5.7 10*3/uL Normal 4.4-11.0 [facility] Comment on above: Performed By: #### L 100.0100, L300.8000, L500.2500 ####[facility] [address] [place], [address] CTA Chest W/WO Contraston CTA Chest W/WO Contrast [facility] Imaging Services [address] [place] [address] CTA Chest W/WO Contrast MR#: [id number] Acct: [id number] Name: MARIA ISABEL VANN Rep #: [id number] : 1970 F 54 From: Fred Herrera MD PCP: Dr. Sapna Ray DO Status: REG ER Study: CTA Chest W/WO Contrast Date of Exam: 10/18/24 Exam# [id number] Ordering Dr: Satya Mendenhall DO EXAM: CT Angiography Chest Without and [...] pulmonary edema and/or multifocal pneumonia. Reading Location: [facility] CC: Dr. Satya Mendenhall DO; Dr. Sapna Ray DO Pit Supervisor: Signed Normal [facility] Carbon dioxide, total [Moles /volume] in Central venous bloodOrdered By: Satya Mendenhall on 10-18-2024 CO2 [Moles/Vol] 21.3 mmol/L 21.0-32.0 [facility] Chest PA and Lateralon 10-18 Chest PA and Lateral [facility] Imaging Services [address] [place] [address] Chest PA and Lateral MR#: [id number] Acct: [id number] Name: MARIA ISABEL VANN Rep #: [id number] : 1970 F 54 From: Fred Herrera MD PCP: Dr. Sapna Ray DO Status: REG ER Study: Chest PA and Lateral Date of Exam: 10/18/24 Exam# [id number] Ordering Dr: Satya Mendenhall DO EXAM: XR Chest, 2 Views CLINICAL [...] edema. Pneumonia cannot be excluded. Reading Location: [facility] CC: Dr. Satya Mendenhall DO; Dr. Sapna Ray DO Pit Supervisor: Signed Normal [facility] Chloride assayOrdered By: Alonso Mendenhall on 10-18-2024 Chloride [Moles/Vol] 102 mmol/L 98-108 [facility] D-Dimer Quantitative (DVT/PE )on 10-18-2024 D-DIMER QUANT 1.60 FEU/ug/m Invalid Interpretation Code 0.27-0.49 [facility] Comment on above: Order Comment: CRITI DAMIAN VALUE CALLED TO SEAN GALLEGOS10/18/24 1102 Michelle Schaefer.RESULTS READ BACK BY SAME. Result Comment: D-Di dusty ELEVATED (>0.49): Additional studies and clinical assessments are indicated to conclude diagnosis of: Deep Vein Thrombosis (DVT) or Pulmonary Embolism (PE) Performed By: #### L 100.0100, L300.8000, L500.2500 ####[facility] [address] [place], [address] Echo Complete W/ Contraston 10-18-2024 Echo Complete W/ Contrast [facility] Cardi[facility] Services [address] [place] [address] Echo Complete W/ Contrast 10/18/24 0319 MR#: [id number] Acct: [id number] Name: MARIA ISABEL VANN Rep #: [id number] : 1970 54 From: Tez Walker MD Attending Dr: Dr. Darvin Posey DO Status: ADM IN Ordering Dr: Darvin Posey DO Date: 10/18/24 Location: [facility] Sex: F C Admitted: 10/18/24 Reason For Study : CHF Procedure This was a 2D Doppler, Color Flow transthoracic echocardiogram. Contrast injection was performed. Exam performed portable in patient room. Left Ventricle Normal LV size. The left ventricular ejection fraction is 40 %. There is mild global hypokinesis of the left ventricle. Right Ventricle Normal RV size. Normal systolic function. Atria Normal left atrium. Normal right atrium. Mitral Valve Normal mitral valve. Moderately severe (3+) eccentric mitral valve insufficiency. Tricuspid Valve Normal tricuspid valve. Mild (1+) tricuspid valve insufficiency. Pulmonary artery systolic pressure is 30 mmHg. Aortic Valve Trisinus/trileaflet aortic valve. Mild focal aortic valve calcification. Pulmonic Valve Normal pulmonic valve. Great Vessels Normal aortic root. The pulmonary artery is normal size. Inferior vena cava collapse with sniff. Pericardium/Pleural Small (<1.0 cm) pericardial effusion. Moderate size left pleural effusion. Medication Diluted definity 1.5ml given slow IV push to enhance endocardial definition. MMode/2D Measurements Calculations LVIDd: 4.9 cm IVSd: 1.00 cm Ao root diam: 2.7 cm LVIDs: 4.0 cm LVPWd: 1.1 cm RVDd: 3.5 cm FS: 17.4 % LAV(MOD-bp): 53.8 ml LVAd ap4: 38.6 cm2 LVAd ap2: 40.0 cm2 LAV(MOD-bp) Indexed: 28.1 ml/m2 LVLd ap4: 8.1 cm LVLd ap2: 7.9 cm LAV(MOD-sp2): 51.1 ml EDV(MOD-sp4): 148.0 ml EDV(MOD-sp2): 163.5 ml LAV(MOD-sp4): 55.6 ml EDV(sp4-el): 155.8 ml EDV(sp2-el): 171.1 ml LVAs ap4: 29.0 cm2 LVAs ap2: 31.2 cm2 LVLs ap4: 7.5 cm LVLs ap2: 7.2 cm ESV(MOD-sp4): 91.6 ml ESV(MOD-sp2): 110.1 ml ESV(sp4-el): 95.4 ml ESV(sp2-el): 114.4 ml EF(MOD-sp4): 38.1 % EF(MOD-sp2): 32.6 % EF(sp4-el): 38.8 % SV(MOD-sp4): 56.4 ml SV(MOD-sp2): 53.4 ml SV(sp4-el): 60.5 ml SI(MOD-sp4): 29.5 ml/m2 SI(MOD-sp2): 27.9 ml/m2 LA A4 area: 18.7 cm2 LA dimension(2D): 4.6 cm RA A4 area: 9.7 cm2 TAPSE: 1.6 cm Time Measurements MV dec time: 0.11 sec Doppler Measurements Calculations MV E max hardik: 149.4 cm/sec Lat Peak E' Hardik: 11.4 cm/sec Med Peak E' Hardik: 8.8 cm/sec MV A max hardik: 134.1 cm/sec E/E' lat: 13.1 E/E' med: 17.0 MV E/A: 1.1 MV dec slope: 1307 cm/sec2 Ao V2 max: 129.0 cm/sec LV V1 max: 98.4 cm/sec Ao max P.7 mmHg LV V1 max P.9 mmHg Ao V2 mean: 108.8 cm/sec Ao mean P.9 mmHg Ao V2 VTI: 23.3 cm PA V2 max: 77.3 cm/sec TR max hardik: 249.8 cm/sec TR max P.0 mmHg ECHO/Echo Complete W/ Contrast Interpretation Summary Normal LV size. The left ventricular ejection fraction is 40 %. There is mild global hypokinesis of the left ventricle. Moderately severe (3+) eccentric mitral valve insufficiency. Contrast injection was performed. Ordering Physician: Darvin Posey Referring Physician: Sapna Ray Performed By: Loida Alvarez, RDCS, RVT 10/18/24 1708 Date Tez Walker MD CC: Dr. Darvin Posey DO; Dr. Sapna Ray DO Date Dictated: 10/18/24318 Date Transcribed: 10/18/24 1641 Pit Supervisor: Signed Normal [facility] Echocardiogram study reportO rdered By: Tez Walker on 10-18-2024 Study report [facility] Cardiovascular Services [address] [place] [address] Echo Complete W/ Contrast 10/18/24318 MR#: [id number] Acct: [id number] Name: MARIA ISABEL VANN Rep #:[id number] : 1970 54 From: Tez De La Paz Attending Dr: Dr. Darvin Posey DO Status: ADM IN Ordering Dr: Darvin Posey DO Date: Location: [facility] Sex: F C Admitted: 10/18/24 Reason For Study : CHF Procedure This was a 2D Doppler, Color Flow transthoracic echocardiogram. Contrast injection was performed. Exam performed portable in patient room. Left Ventricle Normal LV size. The left ventricular ejection fraction is 40 %. There is mild global hypokinesis of the left ventricle. Right Ventricle Normal RV size. Normal systolic function. Atria Normal left atrium. Normal right atrium. Mitral Valve Normal mitral valve. Moderately severe (3+) eccentric mitral valve insufficiency. Tricuspid Valve Normal tricuspid valve. Mild (1+) tricuspid valve insufficiency. Pulmonary artery systolic pressure is 30 mmHg. Aortic Valve Trisinus/trileaflet aortic valve. Mild focal aortic valve calcification. Pulmonic Valve Normal pulmonic valve. Great Vessels Normal aortic root. The pulmonary artery is normal size. Inferior vena cava collapse with sniff. Pericardium/Pleural Small (<1.0 cm) pericardial effusion. Moderate size left pleural effusion. Medication Diluted definity 1.5ml given slow IV push to enhance endocardial definition. MMode/2D Measurements & Calculations LVIDd: 4.9 cm IVSd: 1.00 cm Ao root diam: 2.7 cm LVIDs: 4.0 cm LVPWd: 1.1 cm RVDd: 3.5 cm FS: 17.4 % LAV(MOD-bp): 53.8 ml LVAd ap4: 38.6 cm2 LVAd ap2: 40.0 cm2 LAV(MOD-bp) Indexed: 28.1 ml/m2 LVLd ap4: 8.1 cm LVLd ap2: 7.9 cm LAV(MOD-sp2): 51.1 ml EDV(MOD-sp4): 148.0 ml EDV(MOD-sp2): 163.5 ml LAV(MOD-sp4): 55.6 ml EDV(sp4-el): 155.8 ml EDV(sp2-el): 171.1 ml LVAs ap4: 29.0 cm2 LVAs ap2: 31.2 cm2 LVLs ap4: 7.5 cm LVLs ap2: 7.2 cm ESV(MOD-sp4): 91.6 ml ESV(MOD-sp2): 110.1 ml ESV(sp4-el): 95.4 ml ESV(sp2-el): 114.4 ml EF(MOD-sp4): 38.1 % EF(MOD-sp2): 32.6 % EF(sp4-el): 38.8 % SV(MOD-sp4): 56.4 ml SV(MOD-sp2): 53.4 ml SV(sp4-el): 60.5 ml SI(MOD-sp4): 29.5 ml/m2 SI(MOD-sp2): 27.9 ml/m2 ___ LA A4 area: 18.7 cm2 LA dimension(2D): 4.6 cm RA A4 area: 9.7 cm2 TAPSE: 1.6 cm Time Measurements MV dec time: 0.11 sec Doppler Measurements & Calculations MV E max hardik: 149.4 cm/sec Lat Peak E' Hardik: 11.4 cm/sec Med Peak E' Hardik: 8.8 cm/sec MV A max hardik: 134.1 cm/sec E/E' lat: 13.1 E/E' med: 17.0 MV E/A: 1.1 MV dec slope: 1307 cm/sec2 Ao V2 max: 129.0 cm/sec LV V1 max: 98.4 cm/sec Ao max P.7 mmHg LV V1 max P.9 mmHg Ao V2 mean: 108.8 cm/sec Ao mean P.9 mmHg Ao V2 VTI: 23.3 cm PA V2 max: 77.3 cm/sec TR max hardik: 249.8 cm/sec TR max P.0 mmHg ECHO/Echo Complete W/ Contrast Interpretation Summary Normal LV size. The left ventricular ejection fraction is 40 %. There is mild global hypokinesis of the left ventricle. Moderately severe (3+) eccentric mitral valve insufficiency. Contrast injection was performed. Ordering Physician: Darvin Posey Referring Physician: Sapna Ray Performed By: Loida Alvarez, RDCS, RVT 10/18/24 1708 Date _ Tez Walker MD CC: Dr. Darvin Posey, DO; Dr. Sapna Ray DO ~ Date Dictated: 10/18/249 Date Transcribed: 10/18/24 1641 Pit Supervisor: Signed [facility] Work Phone: Emergency Department Summary on 10-18-2024 Emergency Department Summary [facility] Medical Records Department [address] [place] [address] Emergency Department Summary 10/18/24 MR#: [id number] Acct: [id number] Name: MARIA ISABEL VANN Rep #: [id number] : 1970 54 From: Satya Mendenhall DO PCP: Dr. Sapna Ray DO Status:ADM IN Location: [place] [address] HPI History of Present Illness Chief Complaint: Shortness of Breath Narrative Narrative: Chief complaint and HPI: Shortness of breath. 54-year-old female with past medical history of DM2, fibromyalgia presents for evaluation of shortness of breath. Patient states a week ago she woke up with acid reflux. She thinks that she may have accidentally inhaled some of her acid reflux. She states later that evening she became short of breath. States that she has had a productive cough. Shortness of breath is progressively worsening. She denies any fever, chills, URI symptoms, abdominal pain, nausea, vomiting. States she has chest tightness but not true chest pain. Did recently have a car ride to [place]. Denies any bilateral lower extremity swelling or pain. Review of systems: See HPI Medications: As listed on the chart Allergies: As listed on the chart PFSH: Per chart Vital signs: As listed on the chart. Reviewed. Physical exam: Gen: A O x3, NAD Head: Normocephalic, atraumatic Eyes: No sclera icterus, conjunctiva clear ENT: Moist mucous membranes Neck: Trachea midline, No JVD CV: Tachycardic, regular rhythm, no murmurs, no peripheral edema Resp: Lungs CTA BL but diminished in the bilateral bases, no w/r/c, tachypneic, dyspneic when speaking GI: Abd soft, non-distended, non-tender, no r/r/g Musc: Full ROM, no deformity Skin: Warm, dry Neuro: Alert, oriented, grossly intact, sensation intact Psych: Cooperative, appropriate mood and affect [facility] Medical History (Updated 10/18/24 @ 13:58 [...] problem Arthritis Seasonal allergic conjunctivitis Home Medications ???Medication ???Instructions ???Recorded ???Last Taken ???Type omeprazole 20 mg capsule,delayed 20 mg PO DAILY gerd 03/23/2104/06 History release duloxetine 60 mg capsule,delayed 60 mg PO BID depression 04/07/21 U nknown History release fenofibrate micronized 67 mg 67 mg PO BID HLD 04/07/21 Unknown History capsule aspirin 81 mg tablet 81 mg PO DAILY heart health Unknown History insulin lispro 100 unit/mL 20 unit (0.2 mL) subcut TIDAC 04/06 11/25 Unknown Rx subcutaneous pen (Humalog KwikPen blood suagr 30 days #18 mL (U-100) Insulin) cholecalciferol (vitamin D3) 1,250 1,250 mcg PO QWEEK vitamin 05/2210/17/24 History mcg (50,000 unit) capsule diphenhydramine HCl 25 mg capsule 50 mg PO BID PRN Itching 05/22/21 Unknown History (Benadryl) ondansetron HCl 8 mg tablet 8 mg PO Q8H PRN Nausea 05/22/21 Un known History insulin glargine 100 unit/mL (3 50 - 75 units subcut BID blood Unknown History mL) subcutaneous pen (Lantus sugar Solostar U-100 Insulin) metformin 500 mg tablet,extended 1,000 mg PO BID diabetes 12/07/23 Unknown History release 24 hr Lactobacillus acidophilus 0.5 mg 1 mg PO BID 10/18/24 Unknown Histo ry (100 million cell) tablet levocetirizine 5 mg tablet 5 mg PO DAILY 10/18/24 Unknown His tory lisinopril 2.5 mg tablet 2.5 mg PO DAILY 10/18/24 Unknown H istory pregabalin 150 mg capsule 150 mg PO BID 10/18/24 Unknown His tory sodium chloride 0.65 % nasal spray 1 spray intranasal 4X/DAY PRN DE N 10/18/24 Unknown History aerosol (Deep Sea Nasal) allergies Allergy/AdvReac Type Severity Reaction Status Date / Time etodolac (From [facility]) Allergy Rash Verified 01/15/24 12:24 Family History Mother Arthritis Hypertension Melanoma Father Arthritis Bleeding disorder Diabetes Heart disease High cholesterol Son Kidney disease H/O psychiatric care Uncle Alcoholism Liver disease Grandmother Arthritis Cancer Lung cancer Sister Epilepsy Melanoma Skin cancer Aunt CVA (cerebral vascular accident) Surgical History H/O knee surgery History of hysterectomy History of carpal tunnel surgery Social History (Reviewed 10/18/24 @ 13:56 b (more content not included)... Normal [facility] Eosinophil percentageOrdered By: Satya Mendenhall on 10-18-2024 Eosinophils/100 WBC (Bld) 1.6 % 0-5 [facility] Erythrocyte distribution wid th ratioOrdered By: Satya Mendenhall on 10-18-2024 Erythrocyte distribution width (RBC) [Ratio] 14.4 % 11.6-14.6 [facility] Erythrocyte distribution wid th standard deviationOrdered By: Satya De Los Santos on 10-18-2024 Erythrocyte distribution width (RBC) [Ratio] 44.6 fl High 35.1-43.9 [facility] Glomerular filtration rate ( GFR) estimation/1.73 sq m using serum, plasma, or whole bOrdered By: Satya Mendenhall on 10-18-2024 GFR/1.73 sq M.predicted among non-blacks MDRD (S/P/Bld) [Vol rate/Area] 67 mL/min/{1.73_m2} >60 [facility] Comment on above: mL/min/1.73m2 CKD-EP I Creatinine Equation (2020) H AND P Exam - [place] 10-18-2024 H&P Exam - Hospitalist [facility] Medical Records Department [address] [place] [address] H P Exam - Hospitalist 10/18/24 1354 MR#: [id number] Acct: [id number] Name: MARIA ISABEL VANN Rep #: [id number] : 1970 54 From: Darvin Posey DO PCP: Dr. Sapna Ray DO Status:[facility] ER Location: ED HPI - General General [...] bilateral large effusions on her chest CT. PENDING SALE TO [facility] Medical History (Updated 10/18/24 @ 13:[address] Darvin Posey DO) Diabetes mellitus HLD (hyperlipidemia) Sleep apnea Anxiety Hypoxia Pneumonia due to COVID-19 virus Diabetes mellitus BERKLEY (acute kidney injury) Multiple falls Fibromyalgia Former smoker Lumbar back pain Intertrigo Excessive body weight loss Panniculitis Abdominal panniculus, symptomatic Bursitis Fibromyalgia Vitamin deficiency Vision problems ULCERS GERD (gastroesophageal reflux disease) Osteoarthritis Headache Depression Diabetes Carpal tunnel syndrome Back problem Arthritis Seasonal allergic conjunctivitis Home Medications ???Medication ???Instructions ???Recorded ???Last Taken ???Type omeprazole 20 mg capsule,delayed 20 mg PO DAILY gerd 03/23/2104/06 History release duloxetine 60 mg capsule,delayed 60 mg PO BID depression 04/07/21 U nknown History release fenofibrate micronized 67 mg 67 mg PO BID HLD 04/07/21 Unknown History capsule aspirin 81 mg tablet 81 mg PO DAILY heart health Unknown History insulin lispro 100 unit/mL 20 unit (0.2 mL) subcut TIDAC 04/06 11/25 Unknown Rx subcutaneous pen (Humalog KwikPen blood suagr 30 days #18 mL (U-100) Insulin) cholecalciferol (vitamin D3) 1,250 1,250 mcg PO QWEEK vitamin 05/22 Unknown History mcg (50,000 unit) capsule diphenhydramine HCl 25 mg capsule 50 mg PO BID PRN Itching 05/22/21 Unknown History (Benadryl) ondansetron HCl 8 mg tablet 8 mg PO Q8H PRN Nausea 05/22/21 Un known History insulin glargine 100 unit/mL (3 50 - 75 units subcut BID blood Unknown History mL) subcutaneous pen (Lantus sugar Solostar U-100 Insulin) metformin 500 mg tablet,extended 1,000 mg PO BID diabetes 12/07/23 Unknown History release 24 hr Lactobacillus acidophilus 0.5 mg 1 mg PO BID 10/18/24 Unknown Histo ry (100 million cell) tablet levocetirizine 5 mg tablet 5 mg PO DAILY 10/18/24 Unknown His tory lisinopril 2.5 mg tablet 2.5 mg PO DAILY 10/18/24 Unknown H istory pregabalin 150 mg capsule 150 mg PO BID 10/18/24 Unknown His tory sodium chloride 0.65 % nasal spray 1 spray intranasal 4X/DAY PRN DE N 10/18/24 Unknown History aerosol (Deep Sea Nasal) allergies Allergy/AdvReac Type Severity Reaction Status Date / Time etodolac (From [facility]) Allergy Rash Verified 01/15/24 12:24 Family History [...] Signs Vital Signs: 10/18/24 09:59 10/18/24 10:12 (more content not included)... Normal [facility] Hematocrit Auto (Bld) [Volum e fraction]Ordered By: Satya Mendenhall on 10-18-2024 Hematocrit (Bld) [Volume fraction] 30.7 % Low 37-47 [facility] Hemoglobin measurementOrdere d By: Satya Mendenhall on 10-18-2024 Hemoglobin (Bld) [Mass/Vol] 10.2 g/dL Low 12.0-15.0 [facility] Immature granulocytes/100 WB C Auto (Bld)Ordered By: Satya Mendenhall on 10-18-2024 Immature granulocytes/100 WBC (Bld) 2.300 % High 0.0-0.9 [facility] Comment on above: IG% - Immature Granu locytes (promyelocytes, myelocytes and metamyelocytes) > 1% indicates that a LEFT SHIFT is Present. Influenza virus A and B and SARS-CoV-2 (COVID-19) and Respiratory syncytial virus RNAOrdered By: Satya Mendenhall on 10-18-2024 SARS-CoV-2 (COVID-19) RNA RUTH+probe Ql (Unsp spec) [facility] L499.0042on 10-18-2024 Trop T High Sen 34 ng/L High <=14 [facility] Comment on above: Performed By: #### L 499.0042 #### [facility] [address] [place], [address] L501.4021on 10-18-2024 Trop T High Sen 33 ng/L High <=14 [facility] Comment on above: Performed By: #### L 501.6900, L500.2500, L503.6005, L100.0100 #### [facility] [address] [place], [address] L503.7505on 10-18-2024 Natriuretic peptide B (Bld) [Mass/Vol] 2429 pg/mL High <=900 [facility] Comment on above: Result Comment: Hear t Failure Unlikely: < 300 pg/mL Heart Failure Likely < 50 Years: > 450 pg/mL 50-75 Years: > 900 pg/mL >75 Years: > 1800 pg/mL Performed By: #### L 501.6900, L500.2500, L503.6005, L100.0100 #### [facility] [address] [place], [address] Lactic Acidon 10-18-2024 Lactate [Moles/Vol] 1.4 mmol/L Normal 0.0-2.0 [facility] Comment on above: Order Comment: Y Performed By: #### L 501.6900, L500.2500, L503.6005, L100.0100 #### [facility] [address] [place], [address] Lactic acid measurementOrder ed By: Satya Mendenhall on 10-18-2024 Lactate [Moles/Vol] 1.4 mmol/L 0.0-2.0 [facility] M100.678on 10-18-2024 M100.678 Pending SARS-CoV-2 (COVID 19) Negative INFLUENZA A Negative INFLUENZA B Negative RSV PCR Negative Normal [facility] Comment on above: Performed By: #### L 501.6900, L500.2500, L503.6005, L100.0100 #### [facility] [address] [place], [address] MCV (mean corpuscular volume ) determinationOrdered By: Satya Mendenhall on 10-18-2024 MCV (RBC) [Entitic vol] 88.0 fL 81-99 [facility] Mean corpuscular hemoglobin (MCH) determinationOrdered By: Satya Mendenhall on 10-18-2024 MCH (RBC) [Entitic mass] 29.2 pg 27.0-32.0 [facility] Mean corpuscular hemoglobin concentration (MCHC) determinationOrdered By: Satya Mendenhall on 10-18-2024 MCHC (RBC) [Mass/Vol] 33.2 g/dL 32-36 [facility] Mean platelet volume determi nationOrdered By: Satya Mendenhall on 10-18-2024 Platelet mean volume (Bld) [Entitic vol] 10.3 fL 6.2-12.0 [facility] Monocyte percentageOrdered B y: Satya Mendenhall on 10-18-2024 Monocytes/100 WBC (Bld) 9.1 % 0-10 [facility] Natriuretic peptide.B prohor otoniel N-Terminal [Mass/volume] in Serum or PlasmaOrdered By: Satya Mendenhall on 10-18-2024 Natriuretic peptide.B prohormone N-Terminal [Mass/Vol] 2429 pg/mL High <900 [facility] Comment on above: Heart Failure Unlike ly: < 300 pg/mLHeart Failure Likely< 50 Years: > 450 pg/mL50-75 Years: > 900 pg/mL>75 Years: > 1800 pg/mL Neutrophil percentageOrdered By: Satya Mendenhall on 10-18-2024 Neutrophils/100 WBC (Bld) 57.9 % 47-70 [facility] Nucleated red blood cell per centageOrdered By: Satya Mendenhall on 10-18-2024 Nucleated RBC/100 WBC (Bld) [Ratio] 0 % 0-5 [facility] Platelet countOrdered By: Alonso Mendenhall on 10-18-2024 Platelets (Bld) [#/Vol] 178 10*3/uL 150-450 [facility] Potassium measurement (mass/ volume)Ordered By: Satya Mendenhall on 10-18-2024 Potassium (Unsp spec) [Mass/Vol] 5.3 mmol/L High 3.3-5.1 [facility] RBC Auto (Bld) [#/Vol]Ordere d By: Satya Mendenhall on 10-18-2024 RBC (Bld) [#/Vol] 3.49 10*6/uL Low 4.2-5.4 [facility] Serum creatinine measurement (mass/volume)Ordered By: Satya Mendenhall on 10-18-2024 Creatinine [Mass/Vol] 1.01 mg/dL 0.70-1.20 [facility] Serum glucose measurement (m ass/volume)Ordered By: Satya Mendenhall on 10-18-2024 Glucose [Mass/Vol] 412 mg/dL High 70-99 [facility] Serum or plasma calcium cherelle urement (mass/volume)Ordered By: Satya De Los Santos on 10-18-2024 Calcium [Mass/Vol] 8.7 mg/dL 7.6-11.0 [facility] Serum or plasma urea nitroge n measurement (mass/volume)Ordered By: Satya Mendenhall on 10-18-2024 Urea nitrogen [Mass/Vol] 37 mg/dL High 4-19 [facility] Sodium levelOrdered By: Andrew Mendenhall on 10-18-2024 Sodium [Moles/Vol] 135 mmol/L 133-145 [facility] Troponin T.cardiac [Mass/vol ume] in Serum or Plasma by High sensitivity methodOrdered By: Satya Mendenhall on 10-18-2024 Troponin T.cardiac High sensitivity method [Mass/Vol] 34 ng/L High <14 [facility] Troponin T.cardiac High sensitivity method [Mass/Vol] 33 ng/L High <14 [facility] White blood cell (WBC) count Ordered By: Satya Mendenhall on 10-18-2024 WBC (Bld) [#/Vol] 5.7 10*3/uL 4.4-11.0 [facility] CNOVon 07-18-2024 CNOV Office Visit (UCWSTR ) MARIA ISABEL VANN ([id number]) 1970 F Date Time Provider Department 07/18/24 10:00 AM MERRY MEDRANO [facility] During your visit today, we recorded the following information about you: Temperature Pulse Respiration Blood pressure 98.3 degrees 118/minute 18/minute 122/78 Weight 82.8 kg Merry Medrano APRN.OIL WELL DIRECTIONAL SURVEYOR 07/18/2024 10:02 AM Signed Each of us [...] such as smoke, should be avoided. Merry Medrano APRN.OIL WELL DIRECTIONAL SURVEYOR 07/18/2024 10:05 (more content not included)... Normal [facility] Culture, Blood (WB)on 2023 CUB Blood cultures x2, f rom two different sites No growth in 5 days. Normal [facility] Comment on above: Performed By: #### L 501.6900, L500.2500, L503.6005, L100.0100 #### [facility] [address] [place], [place], [id number] Wound Cultureon 01-17-2024 WC Staphylococcus aureu s [...] S Vancomycin Islt YASIR 1 S Normal [facility] Comment on above: Performed By: #### L 501.6900, L500.2500, L503.6005, L100.0100 #### [facility] [address] [place], [address] Bedside Glucoseon 01-16-2024 FINGERSTICK GLU 262 mg/dL High 74-106 [facility] Comment on above: Result Comment: LUCIO THAPA OF PATIENT CARE PER NURSING PROTOCOL Performed By: #### L 501.080 #### [facility] [address] [place], [address] CBC W/Diff, Automatedon 10-1 Absolute Lymph 1.20 X10 3/uL Normal 0.83-4.51 [facility] Comment on above: Performed By: #### L 501.5200, L500.4050, L501.9985, L100.0100 ####[facility] [address] [place], [address] Absolute Neut 2.6 X10 3/uL Normal 2.0-7.7 [facility] Comment on above: Performed By: #### L 501.5200, L500.4050, L501.9985, L100.0100 ####[facility] [address] [place], [address] Basophils/100 WBC (Bld) 0.8 % Normal 0-1 [facility] Comment on above: Performed By: #### L 501.5200, L500.4050, L501.9985, L100.0100 ####[facility] [address] [place], [address] Eosinophils/100 WBC (Bld) 2.3 % Normal 0-5 [facility] Comment on above: Performed By: #### L 501.5200, L500.4050, L501.9985, L100.0100 ####[facility] [address] [place], [address] Erythrocyte distribution width (RBC) [Ratio] 12.5 % Normal 11.6-14.6 [facility] Comment on above: Performed By: #### L 501.5200, L500.4050, L501.9985, L100.0100 ####[facility] [address] [place], [address] Hematocrit (Bld) [Volume fraction] 32.2 % Low 37-47 [facility] Comment on above: Performed By: #### L 501.5200, L500.4050, L501.9985, L100.0100 ####[facility] [address] [place], [address] Hemoglobin (Bld) [Mass/Vol] 10.6 g/dL Low 12.0-15.0 [facility] Comment on above: Performed By: #### L 501.5200, L500.4050, L501.9985, L100.0100 ####[facility] [address] [place], [address] IG% 4.900 High 0.0-0.9 [facility] Comment on above: Result Comment: IG% - Immature Granulocytes (promyelocytes, myelocytes and metamyelocytes) > 1% indicates that a LEFT SHIFT is Present. Performed By: #### L 501.5200, L500.4050, L501.9985, L100.0100 ####[facility] [address] [place], [address] Lymphocytes/100 WBC (Bld) 25.5 % Normal 19-41 [facility] Comment on above: Performed By: #### L 501.5200, L500.4050, L501.9985, L100.0100 ####[facility] [address] [place], [address] MCH (RBC) [Entitic mass] 28.0 pg Normal 27.0-32.0 [facility] Comment on above: Performed By: #### L 501.5200, L500.4050, L501.9985, L100.0100 ####[facility] [address] [place], [address] MCHC (RBC) [Mass/Vol] 32.9 g/dL Normal 32-36 [facility] Comment on above: Performed By: #### L 501.5200, L500.4050, L501.9985, L100.0100 ####[facility] [address] [place], [address] MCV (RBC) [Entitic vol] 85.0 fL Normal 81-99 [facility] Comment on above: Performed By: #### L 501.5200, L500.4050, L501.9985, L100.0100 ####[facility] [address] [place], [address] Monocytes/100 WBC (Bld) 11.0 % High 0-10 [facility] Comment on above: Performed By: #### L 501.5200, L500.4050, L501.9985, L100.0100 ####[facility] [address] [place], [address] Neutrophils/100 WBC (Bld) 55.5 % Normal 47-70 [facility] Comment on above: Performed By: #### L 501.5200, L500.4050, L501.9985, L100.0100 ####[facility] [address] [place], [address] Nucleated RBC (Bld) [#/Vol] 0 10*3/uL Normal 0-5 [facility] Comment on above: Performed By: #### L 501.5200, L500.4050, L501.9985, L100.0100 ####[facility] [address] [place], [address] Platelet mean volume (Bld) [Entitic vol] 9.8 fL Normal 6.2-12.0 [facility] Comment on above: Performed By: #### L 501.5200, L500.4050, L501.9985, L100.0100 ####[facility] [address] [place], [address] Platelets (Bld) [#/Vol] 154 10*3/uL Normal 150-450 [facility] Comment on above: Performed By: #### L 501.5200, L500.4050, L501.9985, L100.0100 ####[facility] [address] [place], [address] RBC (Bld) [#/Vol] 3.79 10*6/uL Low 4.2-5.4 [facility] Comment on above: Performed By: #### L 501.5200, L500.4050, L501.9985, L100.0100 ####[facility] [address] [place], [address] RDW SD 38.5 fl Normal 35.1-43.9 [facility] Comment on above: Performed By: #### L 501.5200, L500.4050, L501.9985, L100.0100 ####[facility] [address] [place], [address] WBC (Bld) [#/Vol] 4.7 10*3/uL Normal 4.4-11.0 [facility] Comment on above: Performed By: #### L 501.5200, L500.4050, L501.9985, L100.0100 ####[facility] [address] [place], [address] [facility] Albumin [Mass/Vol] 2.3 g/dL Low 3.2-5.0 [facility] Comment on above: Performed By: #### L 501.5200, L500.4050, L501.9985, L100.0100 ####[facility] [address] [place], [address] Albumin/Globulin [Mass ratio] 0.6 {ratio} Low 0.9-2.4 [facility] Comment on above: Performed By: #### L 501.5200, L500.4050, L501.9985, L100.0100 ####[facility] [address] [place], [address] ALK P 86 U/L Normal 45-117 [facility] Comment on above: Performed By: #### L 501.5200, L500.4050, L501.9985, L100.0100 ####[facility] [address] [place], [address] ALT [Catalytic activity/Vol] 21 U/L Normal 13-56 [facility] Comment on above: Performed By: #### L 501.5200, L500.4050, L501.9985, L100.0100 ####[facility] [address] [place], [address] AST [Catalytic activity/Vol] 21 U/L Normal 15-37 [facility] Comment on above: Performed By: #### L 501.5200, L500.4050, L501.9985, L100.0100 ####[facility] [address] [place], [address] Bilirubin [Mass/Vol] 0.20 mg/dL Normal 0.20-1.00 [facility] Comment on above: Result Comment: For patients on eltrombopag therapy, use of Dimension [place] TBIL is not recommended. Performed By: #### L 501.5200, L500.4050, L501.9985, L100.0100 ####[facility] [address] [place], [address] BUN/CRE 37.3 RATIO High 10-20 [facility] Comment on above: Performed By: #### L 501.5200, L500.4050, L501.9985, L100.0100 ####[facility] [address] [place], [address] CA,Total 8.6 mg/dL Normal 8.5-10.1 [facility] Comment on above: Performed By: #### L 501.5200, L500.4050, L501.9985, L100.0100 ####[facility] [address] [place], [address] Chloride [Moles/Vol] 102 mmol/L Normal 98-107 [facility] Comment on above: Performed By: #### L 501.5200, L500.4050, L501.9985, L100.0100 ####[facility] [address] [place], [address] CO2 [Moles/Vol] 26.0 mmol/L Normal 21.0-32.0 [facility] Comment on above: Performed By: #### L 501.5200, L500.4050, L501.9985, L100.0100 ####[facility] [address] [place], [address] Creatinine [Mass/Vol] 0.80 mg/dL Normal 0.55-1.02 [facility] Comment on above: Result Comment: The validity of the calculated GFR GFRAA in patients over 70 years has not been determined. Clinical correlation is essential. Performed By: #### L 501.5200, L500.4050, L501.9985, L100.0100 ####[facility] [address] [place], [address] ECRCL 86.82 ml/min Normal [facility] Comment on above: Performed By: #### L 501.5200, L500.4050, L501.9985, L100.0100 ####[facility] [address] [place], [address] EST GFR - AA 96 mL/min Normal >60 [facility] Comment on above: Result Comment: Afri can Mongolian GFR Calc Performed By: #### L 501.5200, L500.4050, L501.9985, L100.0100 ####[facility] [address] [place], [address] GAP 6 Normal 5-15 [facility] Comment on above: Performed By: #### L 501.5200, L500.4050, L501.9985, L100.0100 ####[facility] [address] [place], [address] GFR/1.73 sq M.predicted among non-blacks MDRD (S/P/Bld) [Vol rate/Area] 79 mL/min/{1.73_m2} Normal >60 [facility] Comment on above: Result Comment: Non- GFR Calc Performed By: #### L 501.5200, L500.4050, L501.9985, L100.0100 ####[facility] [address] [place], [address] Globulin (S) [Mass/Vol] 3.9 g/dL Normal 2.2-4.2 [facility] Comment on above: Performed By: #### L 501.5200, L500.4050, L501.9985, L100.0100 ####[facility] [address] [place], [address] Glucose [Mass/Vol] 298 mg/dL High 74-106 [facility] Comment on above: Result Comment: Gluc ose result greater than or equal to 200 mg/dL suggests DIABETES MELLITUS per A.D.A. criteria. Performed By: #### L 501.5200, L500.4050, L501.9985, L100.0100 ####[facility] [address] [place], [address] Potassium [Moles/Vol] 3.7 mmol/L Normal 3.5-5.1 [facility] Comment on above: Performed By: #### L 501.5200, L500.4050, L501.9985, L100.0100 ####[facility] [address] [place], [address] Sodium [Moles/Vol] 135 mmol/L Low 136-145 [facility] Comment on above: Performed By: #### L 501.5200, L500.4050, L501.9985, L100.0100 ####[facility] [address] [place], [address] T PROT 6.2 g/dL Low 6.4-8.2 [facility] Comment on above: Performed By: #### L 501.5200, L500.4050, L501.9985, L100.0100 ####[facility] [address] [place], [address] Urea nitrogen [Mass/Vol] 30 mg/dL High 7-18 [facility] Comment on above: Performed By: #### L 501.5200, L500.4050, L501.9985, L100.0100 ####[facility] [address] [place], [address] Discharge Instructionon 01-04 Discharge Instruction [facility] Records Department [address] [place] [address] Instructions for Home/Discharge Instructions 01/16/24 0948 MR#: [id number] Acct: [id number] Name: MARIA ISABEL VANN Rep #: [id number] : 1970 53 From: J Luis Diaz MD PCP: Dr. Sapna Ray, DO Status:ADM IN Discharge Instructions Diet Discharge [...] can be placed): Home, Self Care 01/16/24 0920 J Luis Diaz MD CC: Dr. Sapna Ray DO; Dr. Cari Reeves MD Signed Normal [facility] Gram Stainon 01-16-2024 GS Gram Stain 1+ Red Blood Cells 2+ White Blood Cells 3+ Gram positive cocci in clusters Normal [facility] Comment on above: Performed By: #### L 501.7026, L500.2500, L503.6007, L100.0100 #### [facility] [address] [place], [address] Hemoglobin A1con 01-16-2024 HbA1c (Bld) [Mass fraction] % High 3.8-5.6 [facility] Comment on above: Result Comment: Norm al < 5.7 % Prediabetic 5.7 - 6.4 % Diabetic >or= 6.5 % Please note range changes. Performed By: #### L 501.5200, L500.4050, L501.9985, L100.0100 ####[facility] [address] [place], [address] Magnesiumon 01-16-2024 Magnesium [Mass/Vol] 2.1 mg/dL Normal 1.6-2.6 [facility] Comment on above: Performed By: #### L 501.5200, L500.4050, L501.9985, L100.0100 ####[facility] [address] [place], [address] Acetone Serumon 01-15-2024 ACETONE SERUM Negative Normal NEG [facility] Comment on above: Performed By: #### L 501.6900, L500.2500, L503.6005, L100.0100 #### [facility] [address] [place], [address] Basic Metabolic Profile (BMP )on 01-15-2024 BUN/CRE 25.4 RATIO High 10- [facility] Comment on above: Performed By: #### L 501.6900, L500.2500, L503.6005, L100.0100 #### [facility] [address] [place], [address] CA,Total 9.5 mg/dL Normal 8.5-10.1 [facility] Comment on above: Performed By: #### L 501.6900, L500.2500, L503.6005, L100.0100 #### [facility] [address] [place], [address] Chloride [Moles/Vol] 93 mmol/L Low 98-107 [facility] Comment on above: Performed By: #### L 501.6900, L500.2500, L503.6005, L100.0100 #### [facility] [address] [place], [address] CO2 [Moles/Vol] 23.0 mmol/L Normal 21.0-32.0 [facility] Comment on above: Performed By: #### L 501.6900, L500.2500, L503.6005, L100.0100 #### [facility] [address] [place], [address] Creatinine [Mass/Vol] 1.34 mg/dL High 0.55-1.02 [facility] Comment on above: Result Comment: The validity of the calculated GFR GFRAA in patients over 70 years has not been determined. Clinical correlation is essential. Performed By: #### L 501.6900, L500.2500, L503.6005, L100.0100 #### [facility] [address] [place], [address] EST GFR - AA 53 mL/min Low >60 [facility] Comment on above: Result Comment: Afri can Mongolian GFR Calc Performed By: #### L 501.6900, L500.2500, L503.6005, L100.0100 #### [facility] [address] [place], [address] GAP 13 Normal 5-15 [facility] Comment on above: Performed By: #### L 501.6900, L500.2500, L503.6005, L100.0100 #### [facility] [address] [place], [address] GFR/1.73 sq M.predicted among non-blacks MDRD (S/P/Bld) [Vol rate/Area] 44 mL/min/{1.73_m2} Low >60 [facility] Comment on above: Result Comment: Non- GFR Calc Performed By: #### L 501.6900, L500.2500, L503.6005, L100.0100 #### [facility] [address] [place], [address] Glucose [Mass/Vol] 482 mg/dL Invalid Interpretation Code 74-106 [facility] Comment on above: Result Comment: Crit ical Result(s) Called at: 13:58:53 01/15/2024 by: Eulalio López to Marialuisa Lobo. Results read back by same. Glucose result greater than or equal to 200 mg/dL suggests DIABETES MELLITUS per A.D.A. criteria. Performed By: #### L 501.6900, L500.2500, L503.6005, L100.0100 #### [facility] [address] [place], [address] Potassium [Moles/Vol] 3.6 mmol/L Normal 3.5-5.1 [facility] Comment on above: Performed By: #### L 501.6900, L500.2500, L503.6005, L100.0100 #### [facility] [address] [place], [address] Sodium [Moles/Vol] 128 mmol/L Low 136-145 [facility] Comment on above: Performed By: #### L 501.6900, L500.2500, L503.6005, L100.0100 #### [facility] [address] [place], [address] Urea nitrogen [Mass/Vol] 34 mg/dL High 7-18 [facility] Comment on above: Performed By: #### L 501.6900, L500.2500, L503.6005, L100.0100 #### [facility] [address] [place], [address] Bedside Glucoseon 01-15-2024 FINGERSTICK GLU 420 mg/dL High 74-106 [facility] Comment on above: Result Comment: LUCIO THAPA OF PATIENT CARE PER NURSING PROTOCOL Performed By: #### L 499.0042 #### [facility] [address] [place], [address] FINGERSTICK GLU 357 mg/dL High 74-106 [facility] Comment on above: Result Comment: LUCIO GEMENT OF PATIENT CARE PER NURSING PROTOCOL Performed By: #### L 501.6900, L500.2500, L503.6005, L100.0100 #### [facility] [address] [place], [address] FINGERSTICK GLU 425 mg/dL High 74-106 [facility] Comment on above: Result Comment: LUCIO GEMENT OF PATIENT CARE PER NURSING PROTOCOL Performed By: #### L 501.6900, L500.2500, L503.6005, L100.0100 #### [facility] [address] [place], [address] FINGERSTICK GLU > 500 Invalid Interpretation Code 74-[address] [place] [address] Comment on above: Result Comment: Dr Flo rendon Followed MANAGEMENT OF PATIENT CARE PER NURSING PROTOCOL Performed By: #### L 501.080 ####[facility] [address] [place], [address] CBC W/Diff, Automatedon 10-1 Absolute Lymph 1.53 X10 3/uL Normal 0.83-4.51 [facility] Comment on above: Performed By: #### L 501.6900, L500.2500, L503.6005, L100.0100 #### [facility] [address] [place], [address] Absolute Neut 4.9 X10 3/uL Normal 2.0-7.7 [facility] Comment on above: Performed By: #### L 501.6900, L500.2500, L503.6005, L100.0100 #### [facility] [address] [place], [address] Basophils/100 WBC (Bld) 1.2 % High 0-1 [facility] Comment on above: Performed By: #### L 501.6900, L500.2500, L503.6005, L100.0100 #### [facility] [address] [place], [address] Eosinophils/100 WBC (Bld) 1.7 % Normal 0-5 [facility] Comment on above: Performed By: #### L 501.6900, L500.2500, L503.6005, L100.0100 #### [facility] [address] [place], [address] Erythrocyte distribution width (RBC) [Ratio] 12.4 % Normal 11.6-14.6 [facility] Comment on above: Performed By: #### L 501.6900, L500.2500, L503.6005, L100.0100 #### [facility] [address] [place], [address] Hematocrit (Bld) [Volume fraction] 34.8 % Low 37-47 [facility] Comment on above: Performed By: #### L 501.6900, L500.2500, L503.6005, L100.0100 #### [facility] [address] [place], [address] Hemoglobin (Bld) [Mass/Vol] 11.7 g/dL Low 12.0-15.0 [facility] Comment on above: Performed By: #### L 501.6900, L500.2500, L503.6005, L100.0100 #### [facility] [address] [place], [address] IG% 4.300 High 0.0-0.9 [facility] Comment on above: Result Comment: IG% - Immature Granulocytes (promyelocytes, myelocytes and metamyelocytes) > 1% indicates that a LEFT SHIFT is Present. Performed By: #### L 501.6900, L500.2500, L503.6005, L100.0100 #### [facility] [address] [place], [address] Lymphocytes/100 WBC (Bld) 18.8 % Low 19-41 [facility] Comment on above: Performed By: #### L 501.6900, L500.2500, L503.6005, L100.0100 #### [facility] [address] [place], [address] MCH (RBC) [Entitic mass] 28.0 pg Normal 27.0-32.0 [facility] Comment on above: Performed By: #### L 501.6900, L500.2500, L503.6005, L100.0100 #### [facility] [address] [place], [address] MCHC (RBC) [Mass/Vol] 33.6 g/dL Normal 32-36 [facility] Comment on above: Performed By: #### L 501.6900, L500.2500, L503.6005, L100.0100 #### [facility] [address] [place], [address] MCV (RBC) [Entitic vol] 83.3 fL Normal 81-99 [facility] Comment on above: Performed By: #### L 501.6900, L500.2500, L503.6005, L100.0100 #### [facility] [address] [place], [address] Monocytes/100 WBC (Bld) 13.3 % High 0-10 [facility] Comment on above: Performed By: #### L 501.6900, L500.2500, L503.6005, L100.0100 #### [facility] [address] [place], [address] Neutrophils/100 WBC (Bld) 60.7 % Normal 47-70 [facility] Comment on above: Performed By: #### L 501.6900, L500.2500, L503.6005, L100.0100 #### [facility] [address] [place], [address] Nucleated RBC (Bld) [#/Vol] 0 10*3/uL Normal 0-5 [facility] Comment on above: Performed By: #### L 501.6900, L500.2500, L503.6005, L100.0100 #### [facility] [address] [place], [address] Platelet mean volume (Bld) [Entitic vol] 10.3 fL Normal 6.2-12.0 [facility] Comment on above: Performed By: #### L 501.6900, L500.2500, L503.6005, L100.0100 #### [facility] [address] [place], [address] Platelets (Bld) [#/Vol] 190 10*3/uL Normal 150-450 [facility] Comment on above: Performed By: #### L 501.6900, L500.2500, L503.6005, L100.0100 #### [facility] [address] [place], [address] RBC (Bld) [#/Vol] 4.18 10*6/uL Low 4.2-5.4 [facility] Comment on above: Performed By: #### L 501.6900, L500.2500, L503.6005, L100.0100 #### [facility] [address] [place], [address] RDW SD 38.1 fl Normal 35.1-43.9 [facility] Comment on above: Performed By: #### L 501.6900, L500.2500, L503.6005, L100.0100 #### [facility] [address] [place], [address] WBC (Bld) [#/Vol] 8.1 10*3/uL Normal 4.4-11.0 [facility] Comment on above: Performed By: #### L 501.6900, L500.2500, L503.6005, L100.0100 #### [facility] [address] [place], [address] Chest 1 View (Portable)on Chest 1 View (Portable) [facility] Imaging Services [address] [place] [address] Chest 1 View (Portable) MR#: [id number] Acct: [id number] Name: MARIA ISABEL VANN Rep #: [id number] : 1970 F 53 From: Carlos trinh MD PCP: Dr. Sapna Ray, DO Status: [facility] ER Study: Chest 1 View (Portable) Date of Exam: 01/15/24 Exam# [id number] Ordering Dr: Osiel Melvin DO [id number] STUDY: X-RAY CHEST REASON FOR EXAM: Female, [...] Sapna Ray DO; Dr. Osiel Melvin DO Pit Supervisor: Signed Normal [facility] Emergency Department Summary on 01-15-2024 Emergency Department Summary [facility] Medical Records Department [address] [place] [address] Emergency Department Summary 01/15/24 MR#: [id number] Acct: [id number] Name: MARIA ISABEL VANN Rep #: [id number] : 1970 53 From: Osiel Melvin DO PCP: Dr. Sapna Ray DO Status:ADM IN Location: MS3 GI850-4 HPI History of Present Illness Chief Complaint: [...] She denies abdominal pain or urinary symptoms. [facility] Medical History Abdominal panniculus, symptomatic BERKLEY [...] 30 04/23/21 Unknown Rx subcutaneous pen (Humalog KwikPen days #18 mL (U-100) Insulin) cholecalciferol (vitamin [...] mL) subcutaneous pen (Lantus Solostar U-100 Insulin) oxycodone-acetaminophen 5 mg-325 1 tab PO BID PRN Pain 10/30/21 Unknown History mg tablet (Percocet) tizanidine 6 mg capsule 6 mg PO TID PRN muscle spasms 10/30/21 Unknown History metformin 500 mg tablet,extended 1,000 mg PO BID 12/07/23 Unknown History release 24 hr Allergy/AdvReac Type Severity Reaction Status Date / Time etodolac (From [facility]) Allergy Rash Verified 01/15/24 12:24 Family History [...] Social History (Updated 01/15/24 @ 12:31 by Sean Gallegos) household members: none housing: house Smoking Status: Former smoker how long ago did patient quit smoking: Quit 30 years prior. alcohol intake: current alcohol intake frequency: holidays/special occasions only substance use type: does not use ROS ROS ED Review of Systems ROS Unobtainable: other Constitutional Constitutional ED: Reports lethargy; Denies chills, fever(s), sweats or weight loss Eyes Eyes (more content not included)... Normal [facility] H AND P Exam - [facility]iston 01-15-2024 H&P Exam - Hospitalist [facility] Medical Records Department [address] [place] [address] H P Exam - Hospitalist 01/15/24 1626 MR#: [id number] Acct: [id number] Name: MARIA ISABEL VANN Rep #: [id number] : 1970 53 From: Cari Reeves MD PCP: Dr. Sapna Ray, DO Status:ADM IN Location: [facility] RR225-0 HPI - General General Date of Admission: 01/15/24 Date of Service: 01/15/24 Chief Complaint: Fells unwell, left sided groin abscess HPI Narrative MARIA ISABEL VANN, is a 53 F with history of diabetes, GERD, fibromyalgia who presented to [facility] ED 01/15/2024 feeling unwell since this [...] past few days. Saw her PCP on Wednesday and was started on Doxy but due [...] morning because of how she was feeling. PENDING SALE TO [facility] Medical History Abdominal panniculus, symptomatic BERKLEY (acute [...] Reaction Status Date / Time etodolac (From [facility]) Allergy Rash Verified 01/15/24 12:24 Family History [...] Social History (Updated 01/15/24 @ 12:31 by Sean Gallegos) household members: none housing: house Smoking Status: [...] throat i (more content not included)... Normal [facility] Lactic Acidon 01-15-2024 Lactate [Moles/Vol] 1.3 mmol/L Normal 0.4-1.9 [facility] Comment on above: Order Comment: Y Performed By: #### L 501.6900, L500.2500, L503.6005, L100.0100 #### [facility] [address] [place], [address] Urinalysis, Completeon 01-14 EPI,SQUAMOUS 0-5 SEEN Normal 5-10 [facility] Comment on above: Order Comment: CLEAN CATCH Performed By: #### L 400.0001 ####[facility] [address] [place], [address] RBC 0-5 SEEN Normal 0-5 [facility] Comment on above: Order Comment: CLEAN CATCH Performed By: #### L 400.0001 ####[facility] [address] [place], [address] WBC 5-10 SEEN Normal 0-5 [facility] Comment on above: Order Comment: CLEAN CATCH Performed By: #### L 400.0001 ####[facility] [address] [place], [address] BACTERIA 0 SEEN Normal None Seen [facility] Comment on above: Order Comment: CLEAN CATCH Performed By: #### L 400.0001 ####[facility] [address] [place], [address] Mucus Ql (Urine sed) 0 SEEN Normal [facility] Comment on above: Order Comment: CLEAN CATCH Performed By: #### L 400.0001 ####[facility] [address] [place], [address] Emergency Department Summary on 12-07-2023 Emergency Department Summary [facility] Medical Records Department [address] [facility] [place] [address] Emergency Department Summary 12/07/23 MR#: [id number] Acct: [id number] Name: MARIA ISABEL VANN Rep #: [id number] : 1970 53 From: Sav Kenyon DO PCP: Dr. Sapna Ray, DO Status:DEP ER Location: ED HPI History of Present Illness Chief Complaint: Ear Problem PFSH PFS Medical History Abdominal panniculus, symptomatic BERKLEY (acute [...] 30 04/23/21 Unknown Rx subcutaneous pen (Humalog KwikPen days #18 mL (U-100) Insulin) cholecalciferol (vitamin [...] mL) subcutaneous pen (Lantus Solostar U-100 Insulin) oxycodone-acetaminophen 5 mg-325 1 tab PO BID PRN Pain 10/30/21 Unknown History mg tablet (Percocet) tizanidine 6 mg capsule 6 mg PO TID PRN muscle spasms 10/30/21 Unknown History metformin 500 mg tablet,extended 1,000 mg PO BID 12/07/23 Unknown History release 24 hr Allergy/AdvReac Type Severity Reaction Status Date / Time etodolac (From [facility]) Allergy Rash Verified 12/07/23 19:02 Family History [...] irrigated w (more content not included)... Normal [facility] Absolute lymphocyte counton 03-30-2022 Lymphocytes Auto (Unsp spec) [#/Vol] 2.23 10*3/uL 0.83-4.51 [facility] Work Phone: Basophil percentageon 2021 Basophil percentage 0-5 SEEN /hpf 0-5 [facility] Work Phone: Basophils/100 WBC (Bld) 0.8 % 0-1 [facility] Work Phone: [phone] Bilirubin [Mass/Vol] 0.40 mg/dL 0.20-1.00 [facility] Work Phone: [phone] Comment on above: For patients on eltr ombopag therapy, use of Dimension [place] TBIL is not recommended. Chloride [Moles/Vol] 101 mmol/L 98-107 [facility] Work Phone: Eosinophils/100 WBC (Bld) 2.5 % 0-5 [facility] Work Phone: [phone] Glucose [Mass/Vol] 280 mg/dL 74-106 [facility] Work Phone: [phone] Comment on above: Glucose result great er than or equal to 200 mg/dLsuggests DIABETES MELLITUS per A.D.A. criteria. Neutrophils (Bld) [#/Vol] 4.9 10*3/uL 2.0-7.7 [facility] Work Phone: [phone] Neutrophils/100 WBC (Bld) 58.2 % 47-70 [facility] Work Phone: [phone] Potassium [Moles/Vol] 4.7 mmol/L 3.5-5.1 [facility] Work Phone: [phone] Protein [Mass/Vol] 6.5 g/dL 6.4-8.2 [facility] Work Phone: [phone] Sodium [Moles/Vol] 132 mmol/L 136-145 [facility] Work Phone: [phone] WBC (Bld) [#/Vol] 8.4 10*3/uL 4.4-11.0 [facility] Work Phone: [phone] Bilirubin Test strip Ql (U)o n 03-30-2022 Bilirubin Ql (U) 3 mg/dL Negative [facility] Work Phone: [phone] Comment on above: COLOR OF URINE MAY A FFECT DIPSTICK RESULTS. Blood erythrocytes count (nu mber/volume)on 03-30-2022 RBC (Bld) [#/Vol] 3.94 10*6/uL 4.2-5.4 [facility] Work Phone: [phone] Blood hemoglobin measurement (mass/volume)on 03-30-2022 Hemoglobin (Bld) [Mass/Vol] 11.3 g/dL 12.0-15.0 [facility] Work Phone: Blood lymphocytes/100 leukoc yteson 03-30-2022 Lymphocytes/100 WBC (Bld) 26.6 % 19-41 [facility] Work Phone: Blood monocytes/100 leukocyt eson 03-30-2022 Monocytes/100 WBC (Bld) 10.4 % 0-10 [facility] Work Phone: Blood platelet mean volumeon 03-30-2022 Platelet mean volume (Bld) [Entitic vol] 10.4 fL 6.2-12.0 [facility] Work Phone: [phone] Determination of erythrocyte mean corpuscular volume (MCV)on 03-30-2022 MCV (RBC) [Entitic vol] 89.3 fL 81-99 [facility] Work Phone: [phone] Hematocrit Auto (Bld) [Volum e fraction]on 03-30-2022 Hematocrit (Bld) [Volume fraction] 35.2 % 37-47 [facility] Work Phone: Hyaline casts LM.LPF (Urine sed) [#/Area]on 03-30-2022 Hyaline casts (Urine sed) [#/Area] 0 /[LPF] 0-5 [facility] Work Phone: [phone] Ketones Test strip Ql (U)on 03-30-2022 Ketones Ql (U) 5 mg/dl Negative [facility] Work Phone: [phone] Laboratory - Chemistry and C hemistry - challengeon 03-30-2022 ALP [Catalytic activity/Vol] 70 U/L 45-117 [facility] Work Phone: [phone] ALT [Catalytic activity/Vol] 32 U/L 13-56 [facility] Work Phone: [phone] CO2 [Moles/Vol] 22.0 mmol/L 21.0-32.0 [facility] Work Phone: Globulin (S) [Mass/Vol] 3.5 g/dL 2.2-4.2 [facility] Work Phone: Urea nitrogen/Creatinine [Mass ratio] 30.4 mg/mg 10-20 [facility] Work Phone: Laboratory - Hematology and Cell countson 03-30-2022 Erythrocyte distribution width (RBC) [Entitic vol] 43.4 fL 35.1-43.9 [facility] Work Phone: Erythrocyte distribution width (RBC) [Ratio] 13.3 % 11.6-14.6 [facility] Work Phone: Immature granulocytes/100 WBC (Bld) 1.500 % 0.0-0.9 [facility] Work Phone: Comment on above: IG% - Immature Granu locytes (promyelocytes, myelocytes and metamyelocytes) > 1% indicates that a LEFT SHIFT is Present. MCH (RBC) [Entitic mass] 28.7 pg 27.0-32.0 [facility] Work Phone: Nucleated RBC/100 WBC (Bld) [Ratio] 0 % 0-5 [facility] Work Phone: MCHC Auto (RBC) [Mass/Vol]on 03-30-2022 MCHC (RBC) [Mass/Vol] 32.1 g/dL 32-36 [facility] Work Phone: Mucus LM Ql (Urine sed)on Mucus Ql (Urine sed) 1+ /hpf [facility] Work Phone: Nitrite Test strip Ql (U)on 03-30-2022 Nitrite Ql (U) Negative Negative [facility] Work Phone: No Panel Informationon 03-30 Estimated Creatinine Clearance Calc 36.05 ml/min [facility] Work Phone: Estimated GFR (MDRD) Amer 41 mL/min >60 [facility] Work Phone: Comment on above: GFR Calc Estimated GFR (MDRD) Non-Af Amer 34 mL/min >60 [facility] Work Phone: Comment on above: Non- GFR Calc Platelets bldon 03-30-2022 Platelets (Bld) [#/Vol] 253 10*3/uL 150-450 [facility] Work Phone: Protein Test strip Ql (U)on 03-30-2022 Protein Ql (U) 30 mg/dl Negative [facility] Work Phone: Serum or plasma albumin cherelle urement (mass/volume)on 03-30-2022 Albumin [Mass/Vol] 3.0 g/dL 3.2-5.0 [facility] Work Phone: Serum or plasma albumin/glob ulin mass ratioon 03-30-2022 Albumin/Globulin [Mass ratio] 0.9 {ratio} 0.9-2.4 [facility] Work Phone: Serum or plasma calcium cherelle urement (mass/volume)on 03-30-2022 Calcium [Mass/Vol] 9.3 mg/dL 8.5-10.1 [facility] Work Phone: Serum or plasma creatinine m easurement (mass/volume)on 03-30-2022 Creatinine [Mass/Vol] 1.68 mg/dL 0.55-1.02 [facility] Work Phone: Comment on above: The validity of the calculated GFR & GFRAA in patients over 70 years has not been determined. Clinical correlation is essential. Serum or plasma urea nitroge n measurement (mass/volume)on 03-30-2022 Urea nitrogen [Mass/Vol] 51 mg/dL 7-18 [facility] Work Phone: Squamous epithelial cells de tection in urine sediment by light microscopyon 03-30-2022 Epithelial cells.squamous LM Ql (Urine sed) 0-5 SEEN /hpf 5-10 [facility] Work Phone: Thin prep Papanicolaou smear with manual screeningon 03-30-2022 Thin prep Papanicolaou smear with manual screening 22 U/L 15-37 [facility] Work Phone: Thin prep Papanicolaou smear with manual screening 9 5-15 [facility] Work Phone: [phone] Urine blood detectionon - RBC Ql (U) Negative Negative [facility] Work Phone: [phone] RBC Ql (U) 0 SEEN /hpf 0-5 [facility] Work Phone: [phone] Urine clarityon 03-30-2022 Clarity (U) Clear Clear [facility] Work Phone: [phone] Urine color determinationon 03-30-2022 Color (U) Yellow Yellow [facility] Work Phone: [phone] Urine glucose detectionon Glucose Ql (U) 100 mg/dl Normal [facility] Work Phone: [phone] Urine leukocyte esterase det ection by dipstickon 03-30-2022 Leukocyte esterase Test strip Ql (U) 25 /ul Negative [facility] Work Phone: [phone] Urine pHon 03-30-2022 pH (U) 5.0 [pH] 5.0 - 8.0 [facility] Work Phone: Urine sediment bacteria coun t by microscopy (number/high power field)on 03-30-2022 Bacteria LM.HPF (Urine sed) [#/Area] 1 /[HPF] None Seen [facility] Work Phone: [phone] Urine specific gravity measu rementon 03-30-2022 Specific gravity (U) [Rel density] 1.020 1.002-1.03 0 [facility] Work Phone: [phone] Urobilinogen Auto test strip Ql (U)on 03-30-2022 Urobilinogen Ql (U) 4 mg/dl Normal [facility] Work Phone: [phone] Absolute lymphocyte counton 10-30-2021 Lymphocytes Auto (Unsp spec) [#/Vol] 2.85 10*3/uL 0.83-4.51 [facility] Work Phone: [phone] Basophil percentageon 2021 Basophil percentage 0-5 SEEN /hpf 0-5 [facility] Work Phone: Basophils/100 WBC (Bld) 0.3 % 0-1 [facility] Work Phone: Bilirubin [Mass/Vol] 0.50 mg/dL 0.20-1.00 [facility] Work Phone: [phone] Comment on above: For patients on eltr ombopag therapy, use of Dimension [place] TBIL is not recommended. Chloride [Moles/Vol] 105 mmol/L 98-107 [facility] Work Phone: Eosinophils/100 WBC (Bld) 1.9 % 0-5 [facility] Work Phone: Glucose [Mass/Vol] 199 mg/dL 74-106 [facility] Work Phone: [phone] Comment on above: Fasting Glucose resu lt greater than or equal to 126 mg/dL suggests DIABETES MELLITUS per A.D.A. criteria. Neutrophils (Bld) [#/Vol] 3.9 10*3/uL 2.0-7.7 [facility] Work Phone: Neutrophils/100 WBC (Bld) 51.0 % 47-70 [facility] Work Phone: [phone] Potassium [Moles/Vol] 4.1 mmol/L 3.5-5.1 [facility] Work Phone: Protein [Mass/Vol] 6.8 g/dL 6.4-8.2 [facility] Work Phone: Sodium [Moles/Vol] 138 mmol/L 136-145 [facility] Work Phone: WBC (Bld) [#/Vol] 7.7 10*3/uL 4.4-11.0 [facility] Work Phone: [phone] Bilirubin Test strip Ql (U)o n 10-30-2021 Bilirubin Ql (U) Negative Negative [facility] Work Phone: [phone] Blood erythrocytes count (nu mber/volume)on 10-30-2021 RBC (Bld) [#/Vol] 3.94 10*6/uL 4.2-5.4 [facility] Work Phone: Blood hemoglobin measurement (mass/volume)on 10-30-2021 Hemoglobin (Bld) [Mass/Vol] 11.6 g/dL 12.0-15.0 [facility] Work Phone: Blood lymphocytes/100 leukoc yteson 10-30-2021 Lymphocytes/100 WBC (Bld) 36.9 % 19-41 [facility] Work Phone: [phone] Blood monocytes/100 leukocyt eson 10-30-2021 Monocytes/100 WBC (Bld) 9.1 % 0-10 [facility] Work Phone: Blood platelet mean volumeon 10-30-2021 Platelet mean volume (Bld) [Entitic vol] 9.5 fL 6.2-12.0 [facility] Work Phone: Determination of erythrocyte mean corpuscular volume (MCV)on 10-30-2021 MCV (RBC) [Entitic vol] 88.3 fL 81-99 [facility] Work Phone: Glucose Glucometer (dC) [M ass/Vol]on 10-30-2021 Glucose [Mass/Vol] 203 mg/dL 74-106 [facility] Work Phone: Comment on above: MANAGEMENT OF PATIEN T CARE PER NURSING PROTOCOL Hematocrit Auto (Bld) [Volum e fraction]on 10-30-2021 Hematocrit (Bld) [Volume fraction] 34.8 % 37-47 [facility] Work Phone: Ketones Test strip Ql (U)on 10-30-2021 Ketones Ql (U) 5 mg/dl Negative [facility] Work Phone: Laboratory - Chemistry and C hemistry - challengeon 10-30-2021 ALP [Catalytic activity/Vol] 44 U/L 45-117 [facility] Work Phone: ALT [Catalytic activity/Vol] 25 U/L 13-56 [facility] Work Phone: CO2 [Moles/Vol] 26.0 mmol/L 21.0-32.0 [facility] Work Phone: Globulin (S) [Mass/Vol] 3.3 g/dL 2.2-4.2 [facility] Work Phone: Urea nitrogen/Creatinine [Mass ratio] 24.1 mg/mg 10-20 [facility] Work Phone: [phone] Laboratory - Hematology and Cell countson 10-30-2021 Erythrocyte distribution width (RBC) [Entitic vol] 43.0 fL 35.1-43.9 [facility] Work Phone: Erythrocyte distribution width (RBC) [Ratio] 13.4 % 11.6-14.6 [facility] Work Phone: [phone] Immature granulocytes/100 WBC (Bld) 0.800 % 0.0-0.9 [facility] Work Phone: Comment on above: IG% - Immature Granu locytes (promyelocytes, myelocytes and metamyelocytes) > 1% indicates that a LEFT SHIFT is Present. MCH (RBC) [Entitic mass] 29.4 pg 27.0-32.0 [facility] Work Phone: Nucleated RBC/100 WBC (Bld) [Ratio] 0 % 0-5 [facility] Work Phone: MCHC Auto (RBC) [Mass/Vol]on 10-30-2021 MCHC (RBC) [Mass/Vol] 33.3 g/dL 32-36 [facility] Work Phone: Mucus LM Ql (Urine sed)on Mucus Ql (Urine sed) 0 SEEN /hpf [facility] Work Phone: Nitrite Test strip Ql (U)on 10-30-2021 Nitrite Ql (U) Negative Negative [facility] Work Phone: No Panel Informationon 10-30 Estimated Creatinine Clearance Calc 44.21 ml/min [facility] Work Phone: Estimated GFR (MDRD) Amer 52 mL/min >60 [facility] Work Phone: Comment on above: GFR Calc Estimated GFR (MDRD) Non-Af Amer 43 mL/min >60 [facility] Work Phone: Comment on above: Non- GFR Calc Platelets bldon 10-30-2021 Platelets (Bld) [#/Vol] 244 10*3/uL 150-450 [facility] Work Phone: Protein Test strip Ql (U)on 10-30-2021 Protein Ql (U) 30 mg/dl Negative [facility] Work Phone: Serum or plasma albumin cherelle urement (mass/volume)on 10-30-2021 Albumin [Mass/Vol] 3.5 g/dL 3.2-5.0 [facility] Work Phone: Serum or plasma albumin/glob ulin mass ratioon 10-30-2021 Albumin/Globulin [Mass ratio] 1.1 {ratio} 0.9-2.4 [facility] Work Phone: Serum or plasma calcium cherelle urement (mass/volume)on 10-30-2021 Calcium [Mass/Vol] 9.3 mg/dL 8.5-10.1 [facility] Work Phone: Serum or plasma creatinine m easurement (mass/volume)on 10-30-2021 Creatinine [Mass/Vol] 1.37 mg/dL 0.55-1.02 [facility] Work Phone: Comment on above: The validity of the calculated GFR & GFRAA in patients over 70 years has not been determined. Clinical correlation is essential. Serum or plasma urea nitroge n measurement (mass/volume)on 10-30-2021 Urea nitrogen [Mass/Vol] 33 mg/dL 7-18 [facility] Work Phone: Squamous epithelial cells de tection in urine sediment by light microscopyon 10-30-2021 Epithelial cells.squamous LM Ql (Urine sed) 0-5 SEEN /hpf 5-10 [facility] Work Phone: Thin prep Papanicolaou smear with manual screeningon 10-30-2021 Thin prep Papanicolaou smear with manual screening 15 U/L 15-37 [facility] Work Phone: [phone] Thin prep Papanicolaou smear with manual screening 7 5-15 [facility] Work Phone: [phone] Urine blood detectionon 07-2 RBC Ql (U) Negative Negative [facility] Work Phone: [phone] RBC Ql (U) 0 SEEN /hpf 0-5 [facility] Work Phone: [phone] Urine clarityon 10-30-2021 Clarity (U) Sl. Cloudy Clear [facility] Work Phone: [phone] Urine color determinationon 10-30-2021 Color (U) Yellow Yellow [facility] Work Phone: Urine glucose detectionon Glucose Ql (U) 50 mg/dl Normal [facility] Work Phone: [phone] Urine leukocyte esterase det ection by dipstickon 10-30-2021 Leukocyte esterase Test strip Ql (U) 25 /ul Negative [facility] Work Phone: [phone] Urine pHon 10-30-2021 pH (U) 6.0 [pH] 5.0 - 8.0 [facility] Work Phone: Urine sediment bacteria coun t by microscopy (number/high power field)on 10-30-2021 Bacteria LM.HPF (Urine sed) [#/Area] 1 /[HPF] None Seen [facility] Work Phone: [phone] Urine specific gravity measu rementon 10-30-2021 Specific gravity (U) [Rel density] 1.020 1.002-1.03 0 [facility] Work Phone: [phone] Urobilinogen Auto test strip Ql (U)on 10-30-2021 Urobilinogen Ql (U) Normal mg/dl Normal [facility] Work Phone: [phone] Absolute lymphocyte counton 06-15-2022 Lymphocytes Auto (Unsp spec) [#/Vol] 2.61 10*3/uL 0.83-4.51 [facility] Work Phone: Basophil percentageon 2021 Basophils/100 WBC (Bld) 0.5 % 0-1 [facility] Work Phone: Bilirubin [Mass/Vol] 0.30 mg/dL 0.20-1.00 [facility] Work Phone: Comment on above: For patients on eltr ombopag therapy, use of Dimension [place] TBIL is not recommended. Chloride [Moles/Vol] 107 mmol/L 98-107 [facility] Work Phone: Eosinophils/100 WBC (Bld) 2.0 % 0-5 [facility] Work Phone: Glucose [Mass/Vol] 86 mg/dL 74-106 [facility] Work Phone: Neutrophils (Bld) [#/Vol] 5.1 10*3/uL 2.0-7.7 [facility] Work Phone: Neutrophils/100 WBC (Bld) 57.4 % 47-70 [facility] Work Phone: Potassium [Moles/Vol] 4.6 mmol/L 3.5-5.1 [facility] Work Phone: Protein [Mass/Vol] 7.3 g/dL 6.4-8.2 [facility] Work Phone: Sodium [Moles/Vol] 140 mmol/L 136-145 [facility] Work Phone: WBC (Bld) [#/Vol] 8.8 10*3/uL 4.4-11.0 [facility] Work Phone: Blood erythrocytes count (nu mber/volume)on 09-18-2021 RBC (Bld) [#/Vol] 4.36 10*6/uL 4.2-5.4 [facility] Work Phone: Blood hemoglobin measurement (mass/volume)on 09-18-2021 Hemoglobin (Bld) [Mass/Vol] 12.9 g/dL 12.0-15.0 [facility] Work Phone: Blood lymphocytes/100 leukoc yteson 09-18-2021 Lymphocytes/100 WBC (Bld) 29.6 % 19-41 [facility] Work Phone: Blood monocytes/100 leukocyt eson 09-18-2021 Monocytes/100 WBC (Bld) 10.0 % 0-10 [facility] Work Phone: Blood platelet mean volumeon 09-18-2021 Platelet mean volume (Bld) [Entitic vol] 9.6 fL 6.2-12.0 [facility] Work Phone: Determination of erythrocyte mean corpuscular volume (MCV)on 09-18-2021 MCV (RBC) [Entitic vol] 87.8 fL 81-99 [facility] Work Phone: Erythrocyte sedimentation ra conrado 09-18-2021 ESR (Bld) [Velocity] 28 mm/h 0-30 [facility] Work Phone: Hematocrit Auto (Bld) [Volum e fraction]on 09-18-2021 Hematocrit (Bld) [Volume fraction] 38.3 % 37-47 [facility] Work Phone: [phone] Laboratory - Chemistry and C hemistry - challengeon 09-18-2021 ALP [Catalytic activity/Vol] 45 U/L 45-117 [facility] Work Phone: ALT [Catalytic activity/Vol] 29 U/L 13-56 [facility] Work Phone: CO2 [Moles/Vol] 24.0 mmol/L 21.0-32.0 [facility] Work Phone: Globulin (S) [Mass/Vol] 3.8 g/dL 2.2-4.2 [facility] Work Phone: [phone] Urea nitrogen/Creatinine [Mass ratio] 38.5 mg/mg 10-20 [facility] Work Phone: Laboratory - Hematology and Cell countson 09-18-2021 Erythrocyte distribution width (RBC) [Entitic vol] 42.5 fL 35.1-43.9 [facility] Work Phone: Erythrocyte distribution width (RBC) [Ratio] 13.2 % 11.6-14.6 [facility] Work Phone: Immature granulocytes/100 WBC (Bld) 0.500 % 0.0-0.9 [facility] Work Phone: Comment on above: IG% - Immature Granu locytes (promyelocytes, myelocytes and metamyelocytes) > 1% indicates that a LEFT SHIFT is Present. MCH (RBC) [Entitic mass] 29.6 pg 27.0-32.0 [facility] Work Phone: Nucleated RBC/100 WBC (Bld) [Ratio] 0 % 0-5 [facility] Work Phone: MCHC Auto (RBC) [Mass/Vol]on 09-18-2021 MCHC (RBC) [Mass/Vol] 33.7 g/dL 32-36 [facility] Work Phone: No Panel Informationon 09-18 Estimated GFR (MDRD) Amer 79 mL/min >60 [facility] Work Phone: Comment on above: GFR Calc Estimated GFR (MDRD) Non-Af Amer 65 mL/min >60 [facility] Work Phone: Comment on above: Non- GFR Calc Platelets bldon 09-18-2021 Platelets (Bld) [#/Vol] 265 10*3/uL 150-450 [facility] Work Phone: Serum or plasma C reactive p rotein measurement (mass/volume)on 09-18-2021 CRP [Mass/Vol] 3.35 mg/L 0.0-3.0 [facility] Work Phone: Comment on above: C-Reactive Protein ( CRP) provides useful information for thediagnosis, therapy and monitoring of inflammatory processesand associated diseases. For the evaluation of Relative Riskfor Cardiovascular Disease, a High Sensitivity CRP (HSCRP)should be ordered. Serum or plasma albumin cherelle urement (mass/volume)on 09-18-2021 Albumin [Mass/Vol] 3.5 g/dL 3.2-5.0 [facility] Work Phone: Serum or plasma albumin/glob ulin mass ratioon 09-18-2021 Albumin/Globulin [Mass ratio] 0.9 {ratio} 0.9-2.4 [facility] Work Phone: Serum or plasma calcium cherelle urement (mass/volume)on 09-18-2021 Calcium [Mass/Vol] 9.9 mg/dL 8.5-10.1 [facility] Work Phone: Serum or plasma creatinine m easurement (mass/volume)on 09-18-2021 Creatinine [Mass/Vol] 0.96 mg/dL 0.55-1.02 [facility] Work Phone: Comment on above: The validity of the calculated GFR & GFRAA in patients over 70 years has not been determined. Clinical correlation is essential. Serum or plasma urea nitroge n measurement (mass/volume)on 09-18-2021 Urea nitrogen [Mass/Vol] 37 mg/dL 7-18 [facility] Work Phone: Serum or plasma uric acid me asurement (mass/volume)on 09-18-2021 Urate [Mass/Vol] 5.0 mg/dL 2.6-6.0 [facility] Work Phone: Comment on above: The drugs N-Acetylcy steine and Metamizole may falsely depress this assay. Thin prep Papanicolaou smear with manual screeningon 09-18-2021 Thin prep Papanicolaou smear with manual screening 17 U/L 15-37 [facility] Work Phone: Thin prep Papanicolaou smear with manual screening 9 5-15 [facility] Work Phone: Thin prep Papanicolaou smear with manual screening 172 U/L 84-246 [facility] Work Phone: Glucose Glucometer (BldC) [M ass/Vol]on 09-05-2021 Glucose [Mass/Vol] 201 mg/dL 74-106 [facility] Work Phone: Comment on above: MANAGEMENT OF PATIEN T CARE PER NURSING PROTOCOL No Panel Informationon 08-29 Radiology Study observation (narrative) [facility] XR Knee - right 4 Viewson IMPRESSION: No acute cardiopulmonary disease identified. No left-sided rib fractures. Osteoarthrosis of the right knee. Pit Supervisor: MALINDA Transcribe Date/Time: Aug 29 2021 12:33P Dictated by : CLARISSA CASTREJON MD This examination was interpreted and the report reviewed and electronically signed by: CLARISSA CASTREJON MD on Aug 29 2021 12:35PM EST ZZZ_DO_NOT _USE_DIVIS ION OF RADIOLOGY * * *Final Report* * [...] Intra-articular bodies in the posterior joint space. ZZZ_DO_NOT _USE_DIVIS ION OF RADIOLOGY Provider, Lester Renee - 08/29/2021 * * *Final Report* * [...] rib fractures. Osteoarthrosis of the right knee. Pit Super[facility] Transcribe Date/Time: Aug 29 2021 12:33P Dictated by : CLARISSA CASTREJON MD This examination was interpreted and the report reviewed and electronically signed by: CLARISSA CASTREJON MD on Aug 29 2021 12:35PM EST [facility] XR Ribs - left Views and [facility] st PAon 08-29-2021 IMPRESSION: No acute cardiopulmonary disease identified. No left-sided rib fractures. Osteoarthrosis of the right knee. Pit Supervisor: [facility] Transcribe Date/Time: Aug 29 2021 12:33P Dictated by : CLARISSA CASTREJON MD This examination was interpreted and the report reviewed and electronically signed by: CLARISSA CASTREJON MD on Aug 29 2021 12:35PM EST YANA_DO_NOT _USE_DIVIS ION OF RADIOLOGY * * *Final Report* * [...] Intra-articular bodies in the posterior joint space. ZZZ_DO_NOT _USE_DIVIS ION OF RADIOLOGY Provider, [facility] - 08/29/2021 * * *Final [...] rib fractures. Osteoarthrosis of the right knee. Pit Supervisor: MALINDA Transcribe Date/Time: Aug 29 2021 12:33P Dictated by : CLARISSA CASTREJON MD This examination was interpreted and the report reviewed and electronically signed by: CLARISSA CASTREJON MD on Aug 29 2021 12:35PM EST [facility] XR Ribs - left Views and Kate st PAOrdered By: Ccf Provider on 08-29-2021 [facility] Absolute lymphocyte counton 04-23-2021 Lymphocytes Auto (Unsp spec) [#/Vol] 0.79 10*3/uL 0.83-4.51 [facility] Work Phone: Basophil percentageon 2021 Basophils/100 WBC (Bld) 0.0 % 0-1 [facility] Work Phone: Chloride [Moles/Vol] 98 mmol/L 98-107 [facility] Work Phone: Eosinophils/100 WBC (Bld) 0.0 % 0-5 [facility] Work Phone: Glucose [Mass/Vol] 352 mg/dL 74-106 [facility] Work Phone: Comment on above: Glucose result great er than or equal to 200 mg/dLsuggests DIABETES MELLITUS per A.D.A. criteria. Neutrophils (Bld) [#/Vol] 5.2 10*3/uL 2.0-7.7 [facility] Work Phone: Neutrophils/100 WBC (Bld) 82.6 % 47-70 [facility] Work Phone: Potassium [Moles/Vol] 4.2 mmol/L 3.5-5.1 [facility] Work Phone: Sodium [Moles/Vol] 134 mmol/L 136-145 [facility] Work Phone: WBC (Bld) [#/Vol] 6.3 10*3/uL 4.4-11.0 [facility] Work Phone: Blood erythrocytes count (nu mber/volume)on 04-23-2021 RBC (Bld) [#/Vol] 4.53 10*6/uL 4.2-5.4 [facility] Work Phone: Blood hemoglobin measurement (mass/volume)on 04-23-2021 Hemoglobin (Bld) [Mass/Vol] 12.5 g/dL 12.0-15.0 [facility] Work Phone: Blood lymphocytes/100 leukoc yteson 04-23-2021 Lymphocytes/100 WBC (Bld) 12.6 % 19-41 [facility] Work Phone: Blood monocytes/100 leukocyt eson 04-23-2021 Monocytes/100 WBC (Bld) 4.0 % 0-10 [facility] Work Phone: Blood platelet mean volumeon 04-23-2021 Platelet mean volume (Bld) [Entitic vol] 9.6 fL 6.2-12.0 [facility] Work Phone: Determination of erythrocyte mean corpuscular volume (MCV)on 04-23-2021 MCV (RBC) [Entitic vol] 85.2 fL 81-99 [facility] Work Phone: Glucose Glucometer (dC) [M ass/Vol]on 04-23-2021 Glucose [Mass/Vol] 330 mg/dL 70-110 [facility] Work Phone: Comment on above: MANAGEMENT OF PATIEN T CARE PER NURSING PROTOCOL Hematocrit Auto (Bld) [Volum e fraction]on 04-23-2021 Hematocrit (Bld) [Volume fraction] 38.6 % 37-47 [facility] Work Phone: Laboratory - Chemistry and C hemistry - challengeon 04-23-2021 CO2 [Moles/Vol] 28.0 mmol/L 21.0-32.0 [facility] Work Phone: Urea nitrogen/Creatinine [Mass ratio] 44.7 mg/mg 10-20 [facility] Work Phone: Laboratory - Hematology and Cell countson 04-23-2021 Erythrocyte distribution width (RBC) [Entitic vol] 44.5 fL 35.1-43.9 [facility] Work Phone: Erythrocyte distribution width (RBC) [Ratio] 14.3 % 11.6-14.6 [facility] Work Phone: Immature granulocytes/100 WBC (Bld) 0.800 % 0.0-0.9 [facility] Work Phone: Comment on above: IG% - Immature Granu locytes (promyelocytes, myelocytes and metamyelocytes) > 1% indicates that a LEFT SHIFT is Present. MCH (RBC) [Entitic mass] 27.6 pg 27.0-32.0 [facility] Work Phone: Nucleated RBC/100 WBC (Bld) [Ratio] 0 % 0-5 [facility] Work Phone: MCHC Auto (RBC) [Mass/Vol]on 04-23-2021 MCHC (RBC) [Mass/Vol] 32.4 g/dL 32-36 [facility] Work Phone: No Panel Informationon 04-23 Estimated Creatinine Clearance Calc 97.20 ml/min [facility] Work Phone: Estimated GFR (MDRD) Amer 129 mL/min >60 [facility] Work Phone: Comment on above: GFR Calc Estimated GFR (MDRD) Non-Af Amer 107 mL/min >60 [facility] Work Phone: Comment on above: Non- GFR Calc Platelets bldon 04-23-2021 Platelets (Bld) [#/Vol] 241 10*3/uL 150-450 [facility] Work Phone: Serum or plasma calcium cherelle urement (mass/volume)on 04-23-2021 Calcium [Mass/Vol] 9.5 mg/dL 8.5-10.1 [facility] Work Phone: Serum or plasma creatinine m easurement (mass/volume)on 04-23-2021 Creatinine [Mass/Vol] 0.63 mg/dL 0.55-1.02 [facility] Work Phone: Comment on above: The validity of the calculated GFR & GFRAA in patients over 70 years has not been determined. Clinical correlation is essential. Serum or plasma urea nitroge n measurement (mass/volume)on 04-23-2021 Urea nitrogen [Mass/Vol] 28 mg/dL 7-18 [facility] Work Phone: Thin prep Papanicolaou smear with manual screeningon 04-23-2021 Thin prep Papanicolaou smear with manual screening 8 5-15 [facility] Work Phone: Basophil percentageon 2021 Bilirubin [Mass/Vol] 0.40 mg/dL 0.20-1.00 [facility] Work Phone: Comment on above: For patients on eltr ombopag therapy, use of Dimension [place] TBIL is not recommended. Protein [Mass/Vol] 7.0 g/dL 6.4-8.2 [facility] Work Phone: Direct bilirubinon 2 Bilirubin.direct [Mass/Vol] 0.09 mg/dL 0.00-0.30 [facility] Work Phone: Laboratory - Chemistry and C hemistry - challengeon 04-22-2021 ALP [Catalytic activity/Vol] 67 U/L 45-117 [facility] Work Phone: ALT [Catalytic activity/Vol] 19 U/L 13-56 [facility] Work Phone: Globulin (S) [Mass/Vol] 4.1 g/dL 2.2-4.2 [facility] Work Phone: Magnesium [Mass/Vol] 2.0 mg/dL 1.6-2.6 [facility] Work Phone: Serum or plasma albumin cherelle urement (mass/volume)on 04-22-2021 Albumin [Mass/Vol] 2.9 g/dL 3.2-5.0 [facility] Work Phone: Thin prep Papanicolaou smear with manual screeningon 04-22-2021 Thin prep Papanicolaou smear with manual screening 9 U/L 15-37 [facility] Work Phone: Basophil percentageon 2021 Basophil percentage Not Reportable [facility] Work Phone: Laboratory - Chemistry and C hemistry - challengeon 04-20-2021 Natriuretic peptide B (Bld) [Mass/Vol] 72.8 pg/mL 0-100 [facility] Work Phone: Free T4 [Mass/Vol] 1.21 ng/dL 0.76-1.46 [facility]: Laboratory - Microbiology an d Antimicrobial susceptibilityon 04-20-2021 SARS-CoV-2 (COVID-19) RNA RUTH+probe Ql (Unsp spec) Not detected Not Detect [facility] Work Phone: Comment on above: Normal Reference Ran ge: Not DetectedMethod:(RT-PCR) real-time reverse transcriptase PCRLuminex [employer] Instrument*The Food and Drug Administration (FDA) has issued an Emergency Use Authorization (EAU) for the [employer] SARS-CoV-2 Assay for the rapid detection of [...] Informationon 04-20 Anti-Nuclear Antibody Screen Negative Negative [facility] Work Phone: Comment on above: Performed at: [facility] [address] [id number] Director: Tarik Whitley PhD, Phone: [phone] [employer] B Antibody Not Reportable [facility] Work Phone: PASTORAL COUNSELOR Antibody Not Reportable [facility] Work Phone: Thyroid Stimulating Hormone (TSH) 0.58 uIU/mL 0.358-3.74 [facility] Work Phone: Troponin I High Sensitivity 10 pg/mL 3.0-54.0 [facility] Work Phone: Comment on above: Please Note: [place] t Units and Gender Specific Reference Ranges. For more information see Policy Stat Procedure [place] High Sensitivity Troponin (TNIH) and attachments. Serum DNA double strand anti body assay (units/volume)on 04-20-2021 DNA double strand Ab Qn (S) Not Reportable [facility] Work Phone: Serum Patti-1 antibody assay (u nits/volume)on 04-20-2021 Patti-1 extractable nuclear Ab Qn (S) Not Reportable [facility] Work Phone: Serum Scl-70 extractable nuc lear antibody assay (units/volume)on 04-20-2021 SCL-70 extractable nuclear Ab Qn (S) Not Reportable [facility] Work Phone: Serum Rouse extractable nucl ear antibody detectionon 04-20-2021 Rouse extractable nuclear Ab Ql (S) Not Reportable [facility] Work Phone: Serum cyclic citrullinated p eptide IgG antibody assay (units/volume)on 04-20-2021 Cyclic citrullinated peptide IgG Qn 6 units [facility] Work Phone: Comment on above: Negative <20 Weak po sitive 20 - 39 Moderate positive 40 - 59 Strong positive >59Performed at: - [facility] [address] [id number] Director: Castro Medina MD, Phone: [phone] Serum or plasma albumin/glob ulin mass ratioon 04-20-2021 Albumin/Globulin [Mass ratio] 0.7 {ratio} 0.9-2.4 [facility] Work Phone: Serum procalcitonin measurem enton 04-20-2021 Procalcitonin [Mass/Vol] 0.13 ng/mL 0.00-0.09 [facility] Work Phone: Comment on above: A [...] factor Ql (S) < 10.0 IU/mL <15 [facility] Work Phone: Basophil percentageon 2021 Lactate [Moles/Vol] 1.7 mmol/L 0.4-2.0 [facility] Work Phone: No Panel Informationon 04-19 Methicillin-Resist S.aureus DNA PCR Negative Negative [facility] Work Phone: Streptococcus pneumoniae Antigen (M [facility] Work Phone: Absolute lymphocyte counton 04-09-2021 Lymphocytes Auto (Unsp spec) [#/Vol] 0.85 10*3/uL 0.83-4.51 [facility] Work Phone: Basophil percentageon 2021 Basophils/100 WBC (Bld) 0.5 % 0-1 [facility] Work Phone: Bilirubin [Mass/Vol] 0.30 mg/dL 0.20-1.00 [facility] Work Phone: Comment on above: For patients on eltr ombopag therapy, use of Dimension [place] TBIL is not recommended. Chloride [Moles/Vol] 101 mmol/L 98-107 [facility]: Eosinophils/100 WBC (Bld) 1.2 % 0-5 [facility] Work Phone: Glucose [Mass/Vol] 346 mg/dL 74-106 [facility] Work Phone: Comment on above: Glucose result great er than or equal to 200 mg/dLsuggests DIABETES MELLITUS per A.D.A. criteria.Please note revised GLUCOSE reference range effective 2017. Neutrophils (Bld) [#/Vol] 2.8 10*3/uL 2.0-7.7 [facility] Work Phone: Neutrophils/100 WBC (Bld) 66.8 % 47-70 [facility] Work Phone: Potassium [Moles/Vol] 4.3 mmol/L 3.5-5.1 [facility] Work Phone: Protein [Mass/Vol] 6.6 g/dL 6.4-8.2 [facility] Work Phone: Sodium [Moles/Vol] 135 mmol/L 136-145 [facility] Work Phone: WBC (Bld) [#/Vol] 4.2 10*3/uL 4.4-11.0 [facility] Work Phone: Blood erythrocytes count (nu mber/volume)on 04-09-2021 RBC (Bld) [#/Vol] 3.32 10*6/uL 4.2-5.4 [facility]: Blood hemoglobin measurement (mass/volume)on 04-09-2021 Hemoglobin (Bld) [Mass/Vol] 9.0 g/dL 12.0-15.0 [facility] Work Phone: Blood lymphocytes/100 leukoc yteson 04-09-2021 Lymphocytes/100 WBC (Bld) 20.4 % 19-41 [facility] Work Phone: Blood monocytes/100 leukocyt eson 04-09-2021 Monocytes/100 WBC (Bld) 9.9 % 0-10 [facility] Work Phone: Blood platelet mean volumeon 04-09-2021 Platelet mean volume (Bld) [Entitic vol] 10.7 fL 6.2-12.0 [facility] Work Phone: Determination of erythrocyte mean corpuscular volume (MCV)on 04-09-2021 MCV (RBC) [Entitic vol] 88.0 fL 81-99 [facility] Work Phone: Glucose Glucometer (BldC) [M ass/Vol]on 04-09-2021 Glucose [Mass/Vol] 228 mg/dL 70-110 [facility] Work Phone: Comment on above: MANAGEMENT OF PATIEN T CARE PER NURSING PROTOCOL Hematocrit Auto (Bld) [Volum e fraction]on 04-09-2021 Hematocrit (Bld) [Volume fraction] 29.2 % 37-47 [facility] Work Phone: Laboratory - Chemistry and C hemistry - challengeon 04-09-2021 ALP [Catalytic activity/Vol] 122 U/L 45-117 [facility] Work Phone: ALT [Catalytic activity/Vol] 50 U/L 13-56 [facility] Work Phone: CO2 [Moles/Vol] 26.0 mmol/L 21.0-32.0 [facility] Work Phone: Globulin (S) [Mass/Vol] 4.6 g/dL 2.2-4.2 [facility] Work Phone: Urea nitrogen/Creatinine [Mass ratio] 38.1 mg/mg 10-20 [facility] Work Phone: Laboratory - Hematology and Cell countson 04-09-2021 Erythrocyte distribution width (RBC) [Entitic vol] 45.1 fL 35.1-43.9 [facility] Work Phone: Erythrocyte distribution width (RBC) [Ratio] 14.5 % 11.6-14.6 [facility] Work Phone: Immature granulocytes/100 WBC (Bld) 1.200 % 0.0-0.9 [facility] Work Phone: Comment on above: IG% - Immature Granu locytes (promyelocytes, myelocytes and metamyelocytes) > 1% indicates that a LEFT SHIFT is Present. MCH (RBC) [Entitic mass] 27.1 pg 27.0-32.0 [facility] Work Phone: Nucleated RBC/100 WBC (Bld) [Ratio] 0.5 % 0-5 [facility] Work Phone: MCHC Auto (RBC) [Mass/Vol]on 04-09-2021 MCHC (RBC) [Mass/Vol] 30.8 g/dL 32-36 [facility] Work Phone: No Panel Informationon 04-09 Estimated Creatinine Clearance Calc 90.05 ml/min [facility] Work Phone: Estimated GFR (MDRD) Amer 118 mL/min >60 [facility] Work Phone: Comment on above: GFR Calc Estimated GFR (MDRD) Non-Af Amer 97 mL/min >60 [facility] Work Phone: Comment on above: Non- GFR Calc Platelets bldon 04-09-2021 Platelets (Bld) [#/Vol] 301 10*3/uL 150-450 [facility] Work Phone: Serum or plasma albumin cherelle urement (mass/volume)on 04-09-2021 Albumin [Mass/Vol] 2.0 g/dL 3.2-5.0 [facility] Work Phone: Serum or plasma albumin/glob ulin mass ratioon 04-09-2021 Albumin/Globulin [Mass ratio] 0.4 {ratio} 0.9-2.4 [facility] Work Phone: Serum or plasma calcium cherelle urement (mass/volume)on 04-09-2021 Calcium [Mass/Vol] 8.7 mg/dL 8.5-10.1 [facility] Work Phone: Serum or plasma creatinine m easurement (mass/volume)on 04-09-2021 Creatinine [Mass/Vol] 0.68 mg/dL 0.55-1.02 [facility] Work Phone: Comment on above: The validity of the calculated GFR & GFRAA in patients over 70 years has not been determined. Clinical correlation is essential. Serum or plasma urea nitroge n measurement (mass/volume)on 04-09-2021 Urea nitrogen [Mass/Vol] 26 mg/dL 7-18 [facility] Work Phone: Thin prep Papanicolaou smear with manual screeningon 04-09-2021 Thin prep Papanicolaou smear with manual screening 36 U/L 15-37 [facility] Work Phone: Thin prep Papanicolaou smear with manual screening 8 5-15 [facility] Work Phone: Gram stain for investigation of transfusion reactionon 04-08-2021 Microscopic observation Gram stain Nom (Unsp spec) [facility] Work Phone: No Panel Informationon 04-08 SARS-CoV-2 Antigen (Rapid) [facility] Work Phone: Review by pathologiston Pathologist review Jose Angel (Unsp spec) [Interp] Reviewed [facility] Work Phone: Comment on above: Previous reported re sult: Uma mora Edited by: RGOJOANNE on 04/08/21:1404Leukopenia and Normocytic anemia.Clinical correlation necessary.Codey Boston M.D. 04/08/21 AMENDED REPORT 04/08/21 1404 PATH REV previously reported as: Uma mora Basophil percentageon 2021 Lactate [Moles/Vol] 0.9 mmol/L 0.4-2.0 [facility] Work Phone: INR in Blood by Coagulation assayon 04-07-2021 INR Coag (Bld) [Relative time] 1.1 {INR} [facility] Work Phone: Laboratory - Chemistry and C hemistry - challengeon 04-07-2021 CK [Catalytic activity/Vol] 23 U/L 26-192 [facility] Work Phone: Magnesium [Mass/Vol] 1.6 mg/dL 1.6-2.6 [facility] Work Phone: Natriuretic peptide B (Bld) [Mass/Vol] 385.2 pg/mL 0-100 [facility] Work Phone: Laboratory - Coagulationon 0 04-07-2021 PT Coag (PPP) [Time] 13.8 s 11.7-14.9 [facility] Work Phone: Laboratory - Microbiology an d Antimicrobial susceptibilityon 04-07-2021 Bacteria identified Cx Nom (Bld) No growth in 5 days. [facility] Work Phone: No Panel Informationon 04-07 Streptococcus pneumoniae Antigen (M [facility] Work Phone: Troponin I High Sensitivity 37 pg/mL 3.0-54.0 [facility] Work Phone: Comment on above: Please Note: New [place] t Units and Gender Specific Reference Ranges. For more information see Policy Stat Procedure [place] High Sensitivity Troponin (TNIH) and attachments. D-Dimer Quantitative (PE/DVT) 3.96 FEU/ug/m 0.27-0.49 [facility] Work Phone: Comment on above: D-Dimer ELEVATED (>0 .49): Additional studies and clinicalassessments are indicated to conclude diagnosis of:Deep Vein Thrombosis (DVT) or Pulmonary Embolism (PE)CRITICAL VALUE VERIFIED. CALLED TO BULL ROMERO04/07/211903 Pippa Levi.RESULTS READ BACK BY SAME . Fibrinogen > 900 mg/dl 203-444 [facility] Work Phone: Serum or plasma C reactive p rotein measurement (mass/volume)on 04-07-2021 CRP [Mass/Vol] 246.00 mg/L 0.0-3.0 [facility] Work Phone: Comment on above: C-Reactive Protein ( CRP) provides useful information for thediagnosis, therapy and monitoring of inflammatory processesand associated diseases. For the evaluation of Relative Riskfor Cardiovascular Disease, a High Sensitivity CRP (HSCRP)should be ordered. Serum or plasma acetone cherelle urement (mass/volume)on 04-07-2021 Acetone [Mass/Vol] Negative NEG [facility] Work Phone: Serum procalcitonin measurem enton 04-07-2021 Procalcitonin [Mass/Vol] 1.08 ng/mL 0.00-0.09 [facility] Work Phone: Comment on above: A [...] smear with manual screening 346 U/L 84-246 [facility] Work Phone: Basophil percentageon 2020 Chloride [Moles/Vol] 108 mmol/L 98-107 [facility] Work Phone: Glucose [Mass/Vol] 152 mg/dL 74-106 [facility] Work Phone: Comment on above: Fasting Glucose resu lt greater than or equal to 126 mg/dL suggests DIABETES MELLITUS per A.D.A. criteria.Please note revised GLUCOSE reference range effective 2017. Potassium [Moles/Vol] 3.6 mmol/L 3.5-5.1 [facility] Work Phone: Sodium [Moles/Vol] 141 mmol/L 136-145 [facility] Work Phone: Glucose Glucometer (BldC) [M ass/Vol]on 03-24-2021 Glucose [Mass/Vol] 209 mg/dL 70-110 [facility] Work Phone: Comment on above: MANAGEMENT OF PATIEN T CARE PER NURSING PROTOCOL Laboratory - Chemistry and C hemistry - challengeon 03-24-2021 CO2 [Moles/Vol] 26.0 mmol/L 21.0-32.0 [facility] Work Phone: Urea nitrogen/Creatinine [Mass ratio] 10.1 mg/mg 10-20 [facility] Work Phone: No Panel Informationon 03-24 Estimated Creatinine Clearance Calc 146.91 ml/min [facility] Work Phone: Estimated GFR (MDRD) Amer 221 mL/min >60 [facility] Work Phone: Comment on above: GFR Calc Estimated GFR (MDRD) Non-Af Amer 182 mL/min >60 [facility] Work Phone: Comment on above: Non- GFR Calc Serum or plasma calcium cherelle urement (mass/volume)on 03-24-2021 Calcium [Mass/Vol] 8.2 mg/dL 8.5-10.1 [facility] Work Phone: Serum or plasma creatinine m easurement (mass/volume)on 03-24-2021 Creatinine [Mass/Vol] 0.40 mg/dL 0.55-1.02 [facility] Work Phone: Comment on above: The validity of the calculated GFR & GFRAA in patients over 70 years has not been determined. Clinical correlation is essential. Serum or plasma urea nitroge n measurement (mass/volume)on 03-24-2021 Urea nitrogen [Mass/Vol] 4 mg/dL 7-18 [facility] Work Phone: Thin prep Papanicolaou smear with manual screeningon 03-24-2021 Thin prep Papanicolaou smear with manual screening 7 5-15 [facility] Work Phone: Vancomycin troughon 03-24-20 Vancomycin trough [Mass/Vol] 3.6 ug/mL 5.0-15.0 [facility] Work Phone: Comment on above: VANCOMYCIN STANDARED DRUG THERAPY TROUGH LEVEL: 5.0 - 15.0 mg/L VANCOMYCIN HIGH INTENSITY THERAPY TROUGH LEVEL: 15.0 - 20.0 mg/L High Intensity therapy recommended for serious lifethreatening infections include:- Bpjulvnbpv-Yejfmzgemhnl-Hzbjsewok (Ventilator/Healtcare Associated)-Sepsis PLEASE CONTACT PHARMACY SERVICES (#[id number]) FOR INTERPRETATIONOF RESULTS. Absolute lymphocyte counton 03-23-2021 Lymphocytes Auto (Unsp spec) [#/Vol] 0.82 10*3/uL 0.83-4.51 [facility] Work Phone: [phone] Basophil percentageon 2020 Neutrophils (Bld) [#/Vol] 5.5 10*3/uL 2.0-7.7 [facility] Work Phone: WBC (Bld) [#/Vol] 7.5 10*3/uL 4.4-11.0 [facility] Work Phone: [phone] Blood band neutrophil count as percentage of total leukocyteson 03-23-2021 Band form neutrophils/100 WBC (Bld) 11 % 0-5 [facility] Work Phone: Blood erythrocytes count (nu mber/volume)on 03-23-2021 RBC (Bld) [#/Vol] 3.90 10*6/uL 4.2-5.4 [facility] Work Phone: [phone] Blood hemoglobin measurement (mass/volume)on 03-23-2021 Hemoglobin (Bld) [Mass/Vol] 11.2 g/dL 12.0-15.0 [facility] Work Phone: Blood lymphocytes/100 leukoc yteson 03-23-2021 Lymphocytes/100 WBC (Bld) 11 % 19-41 [facility] Work Phone: Blood metamyelocytes/100 marquise kocyteson 03-23-2021 Metamyelocytes/100 WBC (Bld) 9 % 0-1 [facility] Work Phone: Blood monocytes/100 leukocyt eson 03-23-2021 Monocytes/100 WBC (Bld) 6 % 0-10 [facility] Work Phone: Blood platelet adequacy dete ction by light microscopyon 03-23-2021 Platelets LM Ql (Bld) SLT DEC ADEQ [facility] Work Phone: Blood platelet mean volumeon 03-23-2021 Platelet mean volume (Bld) [Entitic vol] 9.7 fL 6.2-12.0 [facility] Work Phone: Blood segmented neutrophils/ 100 leukocyteson 03-23-2021 Segmented neutrophils/100 WBC (Bld) 63 % 47-70 [facility] Work Phone: Determination of erythrocyte mean corpuscular volume (MCV)on 03-23-2021 MCV (RBC) [Entitic vol] 80.5 fL 81-99 [facility] Work Phone: Hematocrit Auto (Bld) [Volum e fraction]on 03-23-2021 Hematocrit (Bld) [Volume fraction] 31.4 % 37-47 [facility] Work Phone: Laboratory - Hematology and Cell countson 03-23-2021 Anisocytosis Ql (Bld) 1+ [facility] Work Phone: Erythrocyte distribution width (RBC) [Entitic vol] 38.2 fL 35.1-43.9 [facility] Work Phone: Erythrocyte distribution width (RBC) [Ratio] 13.2 % 11.6-14.6 [facility] Work Phone: MCH (RBC) [Entitic mass] 28.7 pg 27.0-32.0 [facility] Work Phone: MCHC Auto (RBC) [Mass/Vol]on 03-23-2021 MCHC (RBC) [Mass/Vol] 35.7 g/dL 32-36 [facility] Work Phone: No Panel Informationon 03-23 Neutrophils (%) (Auto) Not Reportable [facility] Work Phone: Platelets bldon 03-23-2021 Platelets (Bld) [#/Vol] 103 10*3/uL 150-450 [facility] Work Phone: Review by pathologiston 03-06 Pathologist review Jose Angel (Unsp spec) [Interp] Reviewed [facility] Work Phone: Comment on above: Previous reported re sult: Uma mora Edited by: ELAN on 03/26/21:923Microcytic anemia.Mild Thrombocytopenia.Clinical correlation suggested.Manuel Gold D.O. 03/26/21 AMENDED REPORT 03/26/21 0924 PATH REV previously reported as: Uma mora Total cell counton Cells counted Molgen (Bld/Tiss) [#] 100 MANUAL DIFF [facility] Work Phone: Laboratory - Hematology and Cell countson 03-22-2021 Myelocytes/100 WBC (Bld) 1 % 0-0 [facility] Work Phone: RBC morphologyon 03-22-2021 RBC morphology finding Nom (Bld) NORM C+C NORMAL NORM C&C [facility] Work Phone: Whole blood hemoglobin A1c/t otal hemoglobin ratio (mass fraction)on 03-22-2021 HbA1c (Bld) [Mass fraction] 13.9 % 3.8-5.6 [facility] Work Phone: Comment on above: Normal < 5.7 % Predi abetic 5.7 - 6.4 % Diabetic >or= 6.5 % Please note range changes. Blood promyelocytes/100 leuk ocyteson 03-21-2021 Promyelocytes/100 WBC (Bld) 2 % 0-0 [facility] Work Phone: No Panel Informationon 03-21 Atypical Lymphocytes 1+ % [facility] Work Phone: Thyroid Stimulating Hormone (TSH) 0.37 uIU/mL 0.358-3.74 [facility] Work Phone: [phone] Basophil percentageon 2020 Eosinophils/100 WBC (Bld) 0.1 % 0-5 [facility] Work Phone: Blood lymphocytes/100 leukoc yteson 03-20-2021 Lymphocytes/100 WBC (Bld) 10.0 % 19-41 [facility] Work Phone: Blood monocytes/100 leukocyt eson 03-20-2021 Monocytes/100 WBC (Bld) 11.5 % 0-10 [facility] Work Phone: [phone] Laboratory - Hematology and Cell countson 03-20-2021 Basophils/100 WBC (Unsp spec) 0.6 % 0-1 [facility] Work Phone: [phone] Immature granulocytes/100 WBC (Bld) 3.900 % 0.0-0.9 [facility] Work Phone: Comment on above: IG% - Immature Granu locytes (promyelocytes, myelocytes and metamyelocytes) > 1% indicates that a LEFT SHIFT is Present. Nucleated RBC/100 WBC (Bld) [Ratio] 0 % 0-5 [facility] Work Phone: Laboratory - Microbiology an d Antimicrobial susceptibilityon 03-20-2021 Bacteria identified Cx Nom (Bld) No growth in 5 days. [facility] Work Phone: Amorphous sediment detection in urine sediment by light microscopyon 03-19-2021 Amorphous sediment LM Ql (Urine sed) 1+ [facility] Work Phone: [phone] Basophil percentageon 2020 Basophil percentage 0-5 SEEN /hpf [facility] Work Phone: [phone] Bilirubin [Mass/Vol] 0.60 mg/dL 0.20-1.00 [facility] Work Phone: Comment on above: For patients on eltr ombopag therapy, use of Dimension [place] TBIL is not recommended. Protein [Mass/Vol] 7.1 g/dL 6.4-8.2 [facility] Work Phone: Bilirubin Test strip Ql (U)o n 03-19-2021 Bilirubin Ql (U) Negative Negative [facility] Work Phone: Blood manual differential co mment interpretation (narrative result)on 03-19-2021 Manual differential comment Jose Angel (Bld) [Interp] SCANNED [facility] Work Phone: Comment on above: MONOCYTOSIS NOTED HCO3 (BldA) [Moles/Vol]on HCO3 (Bld) [Moles/Vol] 4 mmol/L [facility] Work Phone: Hyaline casts LM.LPF (Urine sed) [#/Area]on 03-19-2021 Hyaline casts (Urine sed) [#/Area] 5 /[LPF] [facility] Work Phone: Ketones Test strip Ql (U)on 03-19-2021 Ketones Ql (U) 150 mg/dl Negative [facility] Work Phone: Comment on above: CRITICAL VALUE VERIF IED. CALLED TO JANE FLORIAN03/19/[id number] Eulalio López.RESULTS READ BACK BY SAME . CRITICAL VALUE *H Laboratory - Chemistry and C hemistry - challengeon 03-19-2021 ALP [Catalytic activity/Vol] 124 U/L 45-117 [facility] Work Phone: ALT [Catalytic activity/Vol] 30 U/L 13-56 [facility] Work Phone: Globulin (S) [Mass/Vol] 4.7 g/dL 2.2-4.2 [facility] Work Phone: Magnesium [Mass/Vol] 2.6 mg/dL 1.6-2.6 [facility] Work Phone: Comment on above: Slight Hemolysis, Re sult may be falsely increased. Mucus LM Ql (Urine sed)on Mucus Ql (Urine sed) 0 SEEN /hpf [facility] Work Phone: Nitrite Test strip Ql (U)on 03-19-2021 Nitrite Ql (U) Negative Negative [facility] Work Phone: No Panel Informationon 03-19 Bed Mix Venous Bld PCO2 at Pat Temp 13.9 mmHg 41-51 [facility] Work Phone: Bld Gas Crit Called To/Read Back By Yes [facility] Work Phone: Blood Gas Notified Time 21:29:48 [facility] Work Phone: Blood Gas Notified Whom Le [facility] Work Phone: Comment on above: Previous reported re sult: Lea Edited by: WILIAN on 03/20/21:0622 AMENDED REPORT 03/20/21621 Results To previously reported as: Lea Blood Gas Specimen Type ROSEMARIE [facility] Work Phone: Oxygen Delivery Device Room Air [facility] Work Phone: Venous Blood Base Excess -26 mmol/L -1.0-3.5 [facility] Work Phone: Venous Blood Total Carbon Dioxide < 5 mmol/L 23-33 [facility] Work Phone: SARS-CoV-2 Antigen (Rapid) SARS-CoV-2 (COVID 19) [facility] Work Phone: PO2 venouson 03-19-2021 Oxygen (BldV) [Partial pressure] 61 mm[Hg] 25-40 [facility] Work Phone: Protein Test strip Ql (U)on 03-19-2021 Protein Ql (U) 100 mg/dl Negative [facility] Work Phone: Serum or plasma C reactive p rotein measurement (mass/volume)on 03-19-2021 CRP [Mass/Vol] 73.00 mg/L 0.0-3.0 [facility] Work Phone: Comment on above: C-Reactive Protein ( CRP) provides useful information for thediagnosis, therapy and monitoring of inflammatory processesand associated diseases. For the evaluation of Relative Riskfor Cardiovascular Disease, a High Sensitivity CRP (HSCRP)should be ordered. Serum or plasma acetone cherelle urement (mass/volume)on 03-19-2021 Acetone [Mass/Vol] LARGE NEG [facility] Work Phone: Serum or plasma albumin cherelle urement (mass/volume)on 03-19-2021 Albumin [Mass/Vol] 2.4 g/dL 3.2-5.0 [facility] Work Phone: Serum or plasma albumin/glob ulin mass ratioon 03-19-2021 Albumin/Globulin [Mass ratio] 0.5 {ratio} 0.9-2.4 [facility] Work Phone: Squamous epithelial cells de tection in urine sediment by light microscopyon 03-19-2021 Epithelial cells.squamous LM Ql (Urine sed) 0 SEEN /hpf [facility] Work Phone: Thin prep Papanicolaou smear with manual screeningon 03-19-2021 Thin prep Papanicolaou smear with manual screening 35 U/L 15-37 [facility] Work Phone: Comment on above: Slight Hemolysis, Re sult may be falsely increased. Urine blood detectionon 03-06 RBC Ql (U) 250 /ul Negative [facility] Work Phone: RBC Ql (U) 0 SEEN /hpf [facility] Work Phone: Urine clarityon 03-19-2021 Clarity (U) Clear Clear [facility] Work Phone: Urine color determinationon 03-19-2021 Color (U) Yellow Yellow [facility] Work Phone: Urine glucose detectionon Glucose Ql (U) 1000 mg/dl Normal [facility] Work Phone: Urine leukocyte esterase det ection by dipstickon 03-19-2021 Leukocyte esterase Test strip Ql (U) Negative Negative [facility] Work Phone: Urine pHon 03-19-2021 pH (U) 5.0 [pH] [facility] Work Phone: Urine sediment bacteria coun t by microscopy (number/high power field)on 03-19-2021 Bacteria LM.HPF (Urine sed) [#/Area] 1 /[HPF] None Seen [facility] Work Phone: Urine specific gravity measu rementon 03-19-2021 Specific gravity (U) [Rel density] 1.025 [facility] Work Phone: Urobilinogen Auto test strip Ql (U)on 03-19-2021 Urobilinogen Ql (U) Normal mg/dl Normal [facility] Work Phone: Vital signson 03-19-2021 Oxygen saturation in Blood 80 % 50-70 [facility] Work Phone: pH measurementon 03-19-2021 pH (Unsp spec) 7.06 [pH] 7.32-7.42 [facility] Work Phone: No Panel Information [facility] Vital Signs Date Time Vital Sign Value Performing Clinician Facility 10-19-2024 13:43-0400 Diastolic blood pressure 73 mm[Hg] Dr. Sapna Ray DO Work Phone: [facility] 10-19-2024 13:43-0400 Heart rate 122 /min Dr. Sapna Ray DO Work Phone: [facility] 10-19-2024 13:43-0400 Respiratory rate 18 /min Dr. Sapna Ray DO Work Phone: [facility] 10-19-2024 13:43-0400 Systolic blood pressure 124 mm[Hg] Dr. Sapna Ray DO Work Phone: [facility] 10-19-2024 10:16-0400 Body height 165.[address] Sapna Ray DO Work Phone: [facility] 10-19-2024 10:16-0400 Body weight 89.[address] Sapna Ray DO Work Phone: [facility] 10-19-2024 09:20-0400 Body temperature 98 [degF] Dr. Sapna Ray DO Work Phone: [facility] 10-19-2024 09:20-0400 SaO2% (BldA) [Mass fraction] 95 % Dr. Sapna Ray DO Work Phone: [facility] 10-18-2024 15:01-0400 Body mass index (BMI) [Ratio] 32.8 kg/m2 Dr. Sapna Ray DO Work Phone: [facility] 10-18-2024 14:00-0400 Body temperature 97.4 [degF] Dr. Sapna Ray DO Work Phone: [facility] 10-18-2024 14:00-0400 Diastolic blood pressure 76 mm[Hg] Dr. Sapna Ray DO Work Phone: [facility] 10-18-2024 14:00-0400 Heart rate 111 /min Dr. Sapna Ray DO Work Phone: [facility] 10-18-2024 14:00-0400 Respiratory rate 20 /min Dr. Sapna Ray DO Work Phone: [facility] 10-18-2024 14:00-0400 SaO2% (BldA) [Mass fraction] 93 % Dr. Sapna Ray DO Work Phone: [facility] 10-18-2024 14:00-0400 Systolic blood pressure 134 mm[Hg] Dr. Sapna Ray DO Work Phone: [facility] 10-18-2024 09:59-0400 Body height 165.[address] Sapna Ray DO Work Phone: [facility] 10-18-2024 09:59-0400 Body mass index (BMI) [Ratio] 32.8 kg/m2 Dr. Sapna Ray DO Work Phone: [facility] 10-18-2024 09:59-0400 Body weight 89.[address] Sapna Ray DO Work Phone: [facility] 07-18-2024 09:53-0400 Body mass index (BMI) [Ratio] 30.14 kg/m2 Merry Medrano APRN.[employer]OR Work Phone: [facility] 07-18-2024 09:53-0400 Body temperature 98.29 [degF] Merry Medrano APRN.[employer]CTION[employer] SUR[employer]YOR Work Phone: [facility] 07-18-2024 09:53-0400 Body weight 82.8 kg Merry Medrano APRN.[employer] DI[employer]CTIONAL SURVEYOR Work Phone: [facility] 07-18-2024 09:53-0400 Diastolic blood pressure 78 mm[Hg] Merry Medrano APRN.[employer] DI[employer]CTIONAL SUR[employer]YOR Work Phone: [facility] 07-18-2024 09:53-0400 Heart rate 118 /min Merry Medrano APRN.[employer] SUR[employer]YOR Work Phone: [facility] 07-18-2024 09:53-0400 Respiratory rate 18 /min Merry Medrano APRN.[employer] SUR[employer]YOR Work Phone: [facility] 07-18-2024 09:53-0400 SaO2% (BldA) [Mass fraction] 98 % Merry Medrano APRN.[employer] SUR[employer]YOR Work Phone: [facility] 07-18-2024 09:53-0400 Systolic blood pressure 122 mm[Hg] Merry Medrano APRN.[employer] SUR[employer]YOR Work Phone: [facility] 03-30-2022 17:11-0500 Body temperature 97.8 [degF] Dr. Sapna Ray Work Phone: [facility] Work Phone: 03-30-2022 17:11-0500 Diastolic blood pressure 65 mm[Hg] Dr. Sapna Ray Work Phone: [facility] Work Phone: 03-30-2022 17:11-0500 Heart rate 88 /min Dr. Sapna Ray Work Phone: [facility] Work Phone: 03-30-2022 17:11-0500 Respiratory rate 16 /min Dr. Sapna Ray Work Phone: [facility] Work Phone: 03-30-2022 17:11-0500 SaO2% (BldA) [Mass fraction] 99 % Dr. Sapna Ray Work Phone: [facility] Work Phone: 03-30-2022 17:11-0500 Systolic blood pressure 115 mm[Hg] Dr. Sapna Ray Work Phone: [facility] Work Phone: 03-30-2022 13:49-0500 Body height 165.[address] Sapna Ray Work Phone: [facility] Work Phone: 03-30-2022 13:49-0500 Body mass index (BMI) [Ratio] 31.9 kg/m2 Dr. Sapna Ray Work Phone: [facility] Work Phone: 03-30-2022 13:49-0500 Body weight 87.[address] Sapna Ray Work Phone: [facility] Work Phone: 10-30-2021 15:41-0400 Diastolic blood pressure 75 mm[Hg] Dr. Sapna Ray Work Phone: [facility] Work Phone: 10-30-2021 15:41-0400 Systolic blood pressure 132 mm[Hg] Dr. Sapna Ray Work Phone: [facility] Work Phone: 10-30-2021 15:00-0400 Heart rate 91 /min Dr. Sapna Ray Work Phone: [facility] Work Phone: 10-30-2021 15:00-0400 Respiratory rate 19 /min Dr. Sapna Ray Work Phone: [facility] Work Phone: 10-30-2021 15:00-0400 SaO2% (BldA) [Mass fraction] 100 % Dr. Sapna Ray Work Phone: [facility] Work Phone: 10-30-2021 12:36-0400 Body height 165.[address] Sapna Ray Work Phone: [facility] Work Phone: 10-30-2021 12:36-0400 Body mass index (BMI) [Ratio] 31.8 kg/m2 Dr. Sapna Ray Work Phone: [facility] Work Phone: 10-30-2021 12:36-0400 Body temperature 97.5 [degF] Dr. Sapna Ray Work Phone: [facility] Work Phone: 10-30-2021 12:36-0400 Body weight 86.[address] Sapna Ray Work Phone: [facility] Work Phone: 09-05-2021 15:52-0400 Body height 165.[address] Sapna Ray Work Phone: [facility] Work Phone: 09-05-2021 15:52-0400 Body mass index (BMI) [Ratio] 31.6 kg/m2 Dr. Sapna Ray Work Phone: [facility] Work Phone: 09-05-2021 15:52-0400 Body temperature 98.1 [degF] Dr. Sapna Ray Work Phone: [facility] Work Phone: 09-05-2021 15:52-0400 Body weight 86.[address] Sapna Ray Work Phone: [facility] Work Phone: 09-05-2021 15:52-0400 Diastolic blood pressure 92 mm[Hg] Dr. Sapna Ray Work Phone: [facility] Work Phone: 09-05-2021 15:52-0400 Heart rate 152 /min Dr. Sapna Ray Work Phone: [facility] Work Phone: 09-05-2021 15:52-0400 Respiratory rate 18 /min Dr. Sapna Ray Work Phone: [facility] Work Phone: 09-05-2021 15:52-0400 SaO2% (BldA) [Mass fraction] 98 % Dr. Sapna Ray Work Phone: [facility] Work Phone: 09-05-2021 15:52-0400 Systolic blood pressure 119 mm[Hg] Dr. Sapna Ray Work Phone: [facility] Work Phone: 08-29-2021 11:30-0400 Body temperature 97.59 [degF] Júnior Alvarado MD Work Phone: [facility] 08-29-2021 11:30-0400 Diastolic blood pressure 70 mm[Hg] Júnior Alvarado MD Work Phone: [facility] 08-29-2021 11:30-0400 Heart rate 145 /min Júnior Alvarado MD Work Phone: [facility] 08-29-2021 11:30-0400 Respiratory rate 16 /min Júnior Alvarado MD Work Phone: [facility] 08-29-2021 11:30-0400 SaO2% (BldA) [Mass fraction] 97 % Júnior Alvarado MD Work Phone: [facility] 08-29-2021 11:30-0400 Systolic blood pressure 124 mm[Hg] Júnior Alvarado MD Work Phone: [facility] 07-09-2021 19:59-0400 Body height 165.[address] Sapna Ray Work Phone: [facility] Work Phone: 07-09-2021 19:59-0400 Body mass index (BMI) [Ratio] 31.6 kg/m2 Dr. Sapna Ray Work Phone: [facility] Work Phone: 07-09-2021 19:59-0400 Body temperature 96.9 [degF] Dr. Sapna Ray Work Phone: [facility] Work Phone: 07-09-2021 19:59-0400 Body weight [address] Sapna Ray Work Phone: [facility] Work Phone: 07-09-2021 19:59-0400 Diastolic blood pressure 88 mm[Hg] Dr. Sapna Ray Work Phone: [facility] Work Phone: 07-09-2021 19:59-0400 Heart rate 120 /min Dr. Sapna Ray Work Phone: [facility] Work Phone: 07-09-2021 19:59-0400 Respiratory rate 18 /min Dr. Sapna Ray Work Phone: [facility] Work Phone: 07-09-2021 19:59-0400 SaO2% (BldA) [Mass fraction] 98 % Dr. Sapna Ray Work Phone: [facility] Work Phone: 07-09-2021 19:59-0400 Systolic blood pressure 130 mm[Hg] Dr. Sapna Ray Work Phone: [facility] Work Phone: 05-22-2021 07:53-0500 Heart rate 145 /min Dr. Sapna Ray Work Phone: [facility] Work Phone: 05-22-2021 07:53-0500 SaO2% (BldA) [Mass fraction] 93 % Dr. Sapna Ray Work Phone: [facility] Work Phone: 05-22-2021 07:12-0500 Body mass index (BMI) [Ratio] 30.4 kg/m2 Dr. Sapna Ray Work Phone: [facility] Work Phone: 05-22-2021 07:12-0500 Body temperature 98.2 [degF] Dr. Sapna Ray Work Phone: [facility] Work Phone: 05-22-2021 07:12-0500 Body weight [address] Sapna Ray Work Phone: [facility] Work Phone: 05-22-2021 07:12-0500 Diastolic blood pressure 89 mm[Hg] Dr. Sapna Ray Work Phone: [facility] Work Phone: 05-22-2021 07:12-0500 Respiratory rate 16 /min Dr. Sapna Ray Work Phone: [facility] Work Phone: 05-22-2021 07:12-0500 Systolic blood pressure 126 mm[Hg] Dr. Sapna Ray Work Phone: [facility] Work Phone: 04-23-2021 07:45-0500 SaO2% (BldA) [Mass fraction] 91 % Dr. Sapna Ray Work Phone: [facility] Work Phone: 04-23-2021 07:35-0500 Body temperature 98.2 [degF] Dr. Sapna Ray Work Phone: [facility] Work Phone: 04-23-2021 07:35-0500 Diastolic blood pressure 84 mm[Hg] Dr. Sapna Ray Work Phone: [facility] Work Phone: 04-23-2021 07:35-0500 Heart rate 91 /min Dr. Sapna Ray Work Phone: [facility] Work Phone: 04-23-2021 07:35-0500 Respiratory rate 16 /min Dr. Sapna Ray Work Phone: [facility] Work Phone: 04-23-2021 07:35-0500 Systolic blood pressure 137 mm[Hg] Dr. Sapna Ray Work Phone: [facility] Work Phone: 04-23-2021 04:10-0500 Body weight 71.[address] Sapna Ray Work Phone: [facility] Work Phone: 04-19-2021 19:50-0500 Body mass index (BMI) [Ratio] 26.3 kg/m2 Dr. Sapna Ray Work Phone: [facility] Work Phone: 04-09-2021 11:20-0500 Body temperature 98.6 [degF] Dr. Sapna Ray Work Phone: [facility] Work Phone: 04-09-2021 11:20-0500 Diastolic blood pressure 56 mm[Hg] Dr. Sapna Ray Work Phone: [facility] Work Phone: 04-09-2021 11:20-0500 Heart rate 96 /min Dr. Sapna Ray Work Phone: [facility] Work Phone: 04-09-2021 11:20-0500 Respiratory rate 18 /min Dr. Sapna Ray Work Phone: [facility] Work Phone: 04-09-2021 11:20-0500 SaO2% (BldA) [Mass fraction] 93 % Dr. Sapna Ray Work Phone: [facility] Work Phone: 04-09-2021 11:20-0500 Systolic blood pressure 93 mm[Hg] Dr. Sapna Ray Work Phone: [facility] Work Phone: 04-08-2021 13:28-0500 Body weight 72.[address] Sapna Ray Work Phone: [facility] Work Phone: 04-07-2021 17:32-0500 Body mass index (BMI) [Ratio] 26.4 kg/m2 Dr. Sapna Ray Work Phone: [facility] Work Phone: 03-24-2021 12:30-0500 Heart rate 121 /min Dr. Sapna Ray Work Phone: [facility] Work Phone: 03-24-2021 10:20-0500 Body temperature 98.1 [degF] Dr. Sapna Ray Work Phone: [facility] Work Phone: 03-24-2021 10:20-0500 Diastolic blood pressure 72 mm[Hg] Dr. Sapna Ray Work Phone: [facility] Work Phone: 03-24-2021 10:20-0500 Respiratory rate 17 /min Dr. Sapna Ray Work Phone: [facility] Work Phone: 03-24-2021 10:20-0500 SaO2% (BldA) [Mass fraction] 97 % Dr. Sapna Ray Work Phone: [facility] Work Phone: 03-24-2021 10:20-0500 Systolic blood pressure 131 mm[Hg] Dr. Sapna Ray Work Phone: [facility] Work Phone: 03-24-2021 05:00-0500 Body weight 64.[address] Sapna Ray Work Phone: [facility] Work Phone: 03-20-2021 03:00-0500 Inhaled oxygen concentration 70 % Dr. Sapna Ray Work Phone: [facility] Work Phone: 03-19-2021 23:28-0500 Body mass index (BMI) [Ratio] 25.7 kg/m2 Dr. Sapna Ray Work Phone: [facility] Work Phone: Encounters Encounter Date Encounter Type Care Provider Facility Start: 10-19-2024 Non-patient / Non-visit Lyndsey bassett NP-C -[facility] Start: 10-19-2024 Non-patient / Non-visit Dr. Khanh Posey [facility] Work Phone: Start: 10-18-2024 Non-patient / Non-visit Dr. Khanh Posey [facility] Work Phone: Start: 10-18-2024 ambulatory [facility] Start: 10-18-2024 End: 10-19-2024 Evaluation and management of inpatient Dr. Darvin Posey DO -[facility] Work Phone: Start: 10-18-2024 ambulatory Tez Walker Facility:[facility] Start: 10-18-2024 Non-patient / Non-visit Dr. Blaise CORONADO -[facility] Start: 07-18-2024 End: 07-18-2024 ambulatory SAPNA Carol CORY Facility:[facility] Start: 07-18-2024 End: 07-18-2024 Patient encounter procedure Merry Medrano APRN.CNP Work Phone: [facility] Comment on above: Bacterial sinusitis (Primary Dx); Antibiotic-induced yeast infection Start: 01-15-2024 End: 01-16-2024 Evaluation and management of inpatient Sapna Straussshannon Facility:[facility] Start: 01-15-2024 ambulatory Cari Reeves Facility:[facility] Start: 12-07-2023 End: 12-07-2023 Emergency department patient visit Sapna Ray Facility:[facility] Start: 03-30-2022 End: 03-30-2022 Emergency department patient visit Dr. Sapna Ray Work Phone: [facility]Emergency [facility] Start: 02-04-2022 End: 02-04-2022 Patient [...] 01-28-[address] Sapna Ray Work Phone: [facility] Work Phone: Start: 01-28-2022 End: 01-28-[address] Sapna Ray Work Phone: [facility]-Laboratory,Fut ure Start: 12-20-2021 End: 12-20-[address] Sapna Ray Work Phone: [facility] Start: 12-18-2021 End: 12-18-[address] Sapna Ray Work Phone: [facility] Work Phone: Start: 12-18-2021 End: 12-18-[address] Sapna Ray Work Phone: [facility] Start: 12-11-2021 End: 12-11-[address] SAPNA RAY DO [facility] Start: 10-30-2021 End: 10-30-2021 Emergency department patient visit Dr. Sapna Ray Work Phone: [facility] Start: 10-23-2021 End: 10-23-[address] Sapna Ray Work Phone: [facility] Start: 09-18-2021 End: 09-18-2021 Patient encounter procedure [facility] Start: 09-05-2021 End: 09-05-2021 Emergency department patient visit Dr. Sapna Ray Work Phone: [facility] Start: 08-29-2021 End: 08-29-2021 Subsequent hospital visit by physician [facility] Work Phone: Radiology Comment on above: Rib pain on left twila e [R07.81] Start: 08-29-2021 End: 08-29-2021 Patient encounter procedure Júnior Alvarado MD Work Phone: [facility] Comment on above: Rib pain on left twila e (Primary Dx); Acute pain of right knee; Leg weakness, bilateral; Chronic bilateral low back pain with bilateral sciatica Start: 07-09-2021 End: 07-09-2021 Emergency department patient visit Dr. Sapna Ray Work Phone: [facility] Start: 05-22-2021 End: 05-22-[address] [facility] Start: 04-23-2021 Non-patient / Non-visit Dr. Lea Ray Work Phone: [facility] Start: 04-22-2021 Non-patient / Non-visit Dr. Lea Ray Work Phone: [facility] Start: 04-21-2021 Non-patient / Non-visit Dr. Lea Ray Work Phone: [facility] Start: 04-21-2021 Non-patient / Non-visit Dr. Lea Ray Work Phone: [facility] Start: 04-20-2021 Non-patient / Non-visit Dr. Lea Ray Work Phone: [facility] Start: 04-20-2021 Non-patient / Non-visit Dr. Lea Ray Work Phone: [facility] Start: 04-20-2021 Non-patient / Non-visit Dr. Lea Ray Work Phone: [facility] Start: 04-19-2021 End: 04-23-2021 Evaluation and management of inpatient Dr. Sapna Ray Work Phone: [facility]Pro[facility] Start: 04-09-2021 Non-patient / Non-visit Dr. Lea Ray Work Phone: [facility] Start: 04-08-2021 Non-patient / Non-visit Dr. Lea Ray Work Phone: [facility] Start: 04-07-2021 Non-patient / Non-visit Dr. Lea Ray Work Phone: [facility] Start: 04-07-2021 End: 04-09-2021 Evaluation and management of inpatient Dr. Sapna Ray Work Phone: [facility] Surgical 3 Start: 03-24-2021 Non-patient / Non-visit Dr. Lea Ray Work Phone: [facility] Start: 03-23-2021 Non-patient / Non-visit Dr. Lea Ray Work Phone: [facility] Start: 03-22-2021 Non-patient / Non-visit Dr. Lea Ray Work Phone: [facility] Start: 03-21-2021 Non-patient / Non-visit Dr. Lea Ray Work Phone: [facility] Start: 03-20-2021 Non-patient / Non-visit Dr. Lea Ray Work Phone: [facility] Start: 03-19-2021 Non-patient / Non-visit Dr. Lea Ray Work Phone: [facility] Start: 03-19-2021 End: 03-24-2021 Evaluation and management of inpatient Dr. Sapna Ray Work Phone: [facility] Surgical 2 Procedures Date Procedure Procedure Detail Performing Clinician Start: 10-19-2024 Ultrasonic guidance for thoracentesis Dr. Sapna Ray DO Work Phone: Start: 10-19-2024 Gram stain microscopy D choco Ray DO Work Phone: Start: 10-19-2024 Plain chest X-ray Dr. Shauna Ray DO Work Phone: Start: 10-19-2024 Blood count leukocyt e wbc automated Dr. Sapna Ray DO Work Phone: Start: 10-19-2024 Glucose measurement, body fluid Dr. Sapna Ray DO Work Phone: Start: 10-19-[address] Sapna Ray DO Work Phone: Start: 10-19-2024 Polymorphonuclear le ukocyte count Dr. Sapna Ray DO Work Phone: Start: 10-19-[address] Sapna Ray DO Work Phone: Start: 10-18-2024 SARS-CoV-2, Influenz a & RSV [...] 04-19-2021 Streptococcus pneumo niae Antigen (M Dr. Sapna Ray Work Phone: Start: 04-08-2021 Investigation of [...] 07-18-2025 BP Controlled (<130/80) BP Controlled (<130/80) [facility] Start: 10-19-2024 Following clinical pathway protocol [facility] Start: 10-19-2024 Patient discharge [facility] Start: 10-19-2024 [facility] Start: 10-19-2024 Anaerobic Culture Anaerobic Culture [facility] Start: 10-19-2024 Body Fluid Culture Body Fluid Culture [facility] Start: 10-19-2024 Microbial culture, body fluid [facility] Start: 10-19-2024 Vital signs measurements [facility] Start: 10-18-2024 Following clinical pathway protocol [facility] Start: 10-18-2024 Ambulation without limitation [facility] Start: 10-18-2024 Assessment of risk of venous thromboembolism [facility] Start: 10-18-2024 Care regimes management [facility] Start: 10-18-2024 Elevation of affected extremity [facility] Start: 10-18-2024 Insertion of catheter into peripheral vein [facility] Start: 10-18-2024 Measuring intake and output [facility] Start: 10-18-2024 Notification of physician [facility] Start: 10-18-2024 Patient education [facility] Start: 10-18-2024 Patient referral to dietitian [facility] Start: 10-18-2024 Providing care according to standard [facility] Start: 10-18-2024 [facility] Start: 10-18-2024 Bacteria identified in Blood by Culture Blood Culture [facility] Start: 10-18-2024 Hospital admission, emergency, from emergency room, medical nature [facility] Start: 10-18-2024 Cell count and Differential panel - Body fluid [facility] Start: 10-18-2024 Glucose measurement, body fluid [facility] Start: 10-18-2024 Microbial culture, body fluid [facility] Start: 10-18-2024 Microscopic observation [Identifier] in Body fluid by Cyto stain [facility] Start: 10-18-2024 Verification routine [facility] Start: 10-18-2024 Admission procedure [facility] Start: 10-18-2024 End: 10-18-2024 [facility] Start: 12-06-2023 Covid-19 Vaccine ( season) Covid-19 Vaccine ( season) [facility] Start: 12-06-2023 Influenza vaccination Influenza Vaccine (#1) [facility] Start: 02-04-2023 Glaucoma screening Dilated Retinal Exam [facility] Start: 02-04-2023 Hepatitis C antibody, confirmatory test DILATED RETINAL EXAM [facility] Start: 08-29-2022 BP CONTROLLED (<130/80) BP CONTROLLED (<130/80) [facility] Start: 03-30-2022 [facility] Work Phone: Start: 12-05-2021 Influenza vaccination [facility] Start: 08-29-2021 Shingrix Vaccine (2 of 2) Shingrix Vaccine (2 of 2) [facility] Start: 06-20-2021 SHINGRIX VACCINE (1 of 2) SHINGRIX VACCINE (1 of 2) [facility] Start: 06-20-2016 COLOGUARD (FIT-DNA) COLOGUARD (FIT-DNA) [facility] Start: 06-20-2016 Colonoscopy COLONOSCOPY [facility] Start: 06-20-2016 COLORECTAL CANCER SCREENING COLORECTAL CANCER SCREENING [facility] Start: 06-20-[address] COLONOGRAPHY [facility] Start: 06-20-2016 FECAL OCCULT BLOOD FECAL OCCULT BLOOD [facility] Start: 06-20-2016 Screening for malignant neoplasm of colon [facility] Start: 06-20-2016 SIGMOIDOSCOPY SIGMOIDOSCOPY [facility] Start: 2011 Mammography MAMMOGRAM [facility] Start: 2011 Screening for malignant neoplasm of breast Mammogram Screening [facility] Start: 06-20-2001 HPV TESTING HPV TESTING [facility] Start: 06-20-1992 PAP TESTING PAP TESTING [facility] Start: 06-20-1992 Screening for malignant neoplasm of cervix Cervical Cancer Screening [facility] Start: 06-20-1990 HEPATITIS B (1 of 3 - Risk 3-dose series) HEPATITIS B (1 of 3 - Risk 3-dose series) [facility] Start: 06-20-1990 Hepatitis B Vaccine (1 of 3 - 19+ 3-dose series) Hepatitis B Vaccine (1 of 3 - 19+ 3-dose series) [facility] Start: 06-20-1990 Pneumococcal Vaccine: 50+ (1 of 2 - PCV) Pneumococcal Vaccine: 50+ (1 of 2 - PCV) [facility] Start: 06-20-1990 Urine microalbumin profile [facility] Start: 06-20-1989 ANNUAL PCP TEAM CHRONIC DISEASE VISIT ANNUAL PCP TEAM CHRONIC DISEASE VISIT [facility] Start: 06-20-1989 Anxiety Screening Anxiety Screening [facility] Start: 06-20-1989 BP Controlled (<130/80) BP Controlled (<130/80) [facility] Start: 06-20-1989 Hepatitis B surface antibody level LDL CHOLESTEROL [facility] Start: 06-20-1989 HEPATITIS C SCREENING HEPATITIS C SCREENING [facility] Start: 06-20-1989 Hepatitis C screening Hepatitis C Screening [facility] Start: 06-20-1989 HIV SCREENING HIV SCREENING [facility] Start: 06-20-1989 HIV screening HIV Screening [facility] Start: 06-20-1989 SPIROMETRY SPIROMETRY [facility] Start: 06-20-1981 3 comp foot exam completed DIABETIC FOOT EXAM [facility] Start: 06-20-1981 Diabetic foot examination Diabetic Foot Exam [facility] Start: 06-20-1981 Hepatitis B screening URINE ALBUMIN:CREATININE RATIO [facility] Start: 06-20-1981 Hepatitis C antibody, confirmatory test DILATED RETINAL EXAM [facility] Start: 06-20-1977 PNEUMOCOCCAL (1 - PCV) PNEUMOCOCCAL (1 - PCV) [facility] Start: 06-20-1977 Pneumococcal vaccination Pneumococcal Vaccine (1 of 2 - PCV) [facility] Start: 06-20-1976 COVID-19 VACCINE (#1) COVID-19 VACCINE (#1) [facility] Start: 06-20-1976 Hemoglobin A1c measurement HbA1C [facility] Start: 06-20-1976 Hemoglobin A1c/Hemoglobin.total in Blood HBA1C [facility] Start: 1971 COVID-19 VACCINE (#1) COVID-19 VACCINE (#1) [facility] Start: 1971 HEPATITIS B (1 of 3 - 3-dose series) HEPATITIS B (1 of 3 - 3-dose series) [facility] Bacteria identified in Body fluid by Culture [facility] Bacteria identified in Unspecified specimen by Anaerobe culture [facility] Bacteria identified in Urine by Culture Urine Culture [facility] Work Phone: Cytology report of B adrian fluid Cyto stain [facility] Lactate dehydrogenas e [Enzymatic activity/volume] in Body fluid by Pyruvate to lactate reaction [facility] Patient Education [facility] Work Phone: Patient referral [facility] Work Phone: pH of Body fluid [facility] pH of Body fluid [facility] Protein [Mass/volume ] in Body fluid [facility] Immunizations Immunization Date Immunization Notes Care Provider [facility] 03-08-2020 influenza, injectabl e, quadrivalent, preservative free Dr. Sapna Ray DO Work Phone: [facility] 03-08-2020 influenza, seasonal, injectable Dr. Sapna Ray Work Phone: [facility] Work Phone: 03-08-2020 influenza virus vaccine, unspecified formulation X[facility] [place] Work Phone: [facility] Payers Date Payer Category Payer Self-pay [id number] 2016 Unknown [id number] 2011 Medicaid [employer] [employer] [place] [employer] [id number] 2011-Present [phone] [place] [address] Medicaid [id number] 2011 Medicaid [id number] Unknown [id number] Unknown [id number] Unknown [id number] Unknown [id number] Unknown [id number] Unknown [id number] Unknown [id number] Unknown [id number] Unknown [id number] Social History Date Type Detail Facility [facility] Work Phone: Start: 07-09-2021 End: 03-30-2022 Tobacco smoking status GAIS Unknown if ever smoked [facility] Work Phone: Start: 09-07-2019 Spouse/ Signif icant Other [facility] Start: 09-07-2019 Non-smoker [facility] Start: 1970 Sex Assigned At Female W [facility] Start: 01-22-2015 End: 10-18-2024 Tobacco smoking status GAIS Ex-smoker [facility] End: 01-16-1989 History of tobacco use Current smoker [facility] Start: 08-29-2021 End: 07-18-2024 Alcohol intake Current drinker of alcohol (finding) [facility] Start: 1970 Sex Assigned At Not on file [facility] Start: 08-19-2021 End: 02-04-2022 Exposure to SARS-CoV-2 (event) Not sure [facility] Work Phone: End: 01-16-1989 History of tobacco use Cigarette Smoker [facility] Start: 01-22-2015 Tobacco use and exposure Smokeless tobacco non-user [facility] Start: 08-29-2021 End: 05-02-2022 History of Social function [facility] Start: 08-29-2021 End: 05-02-2022 Tobacco use panel [facility] National Score (1-100), lower number is lower risk 92 [facility] Medical Equipment Procedure Code Equipment Code Equipment Origin al Text Equipment Identifier Dates four times daily . Use as instructed Comment on above: four times daily. Us e as instructed Goals Date Patient Goal Desired Activity /State Functional Status Date Assessment Result Facility 10-19-2024 Functional status Ambulates [facility] Work Phone: 04-23-2021 Functional status Up ad bryce [facility] Work Phone: 04-09-2021 Functional status Up ad bryce;Bathroom [facility] Work Phone: 03-24-2021 Functional status Ambulates;Bathroom [facility] Work Phone: Mental Status Date Assessment Result Facility 10-19-2024 Cognitive function Level Of Cons ciousness Awake;Alert;Appropriate [facility] Work Phone: 10-19-2024 Cognitive function Voice/Name [facility] Work Phone: 03-30-2022 Cognitive function Level Of Cons ciousness Drowsy;Lethargic [facility] Work Phone: 10-30-2021 Cognitive function Level Of Cons ciousness Awake;Alert;Appropriate;Follow s Commands [facility] Work Phone: 04-23-2021 Cognitive function Voice/Name [place] [facility] Work Phone: 04-09-2021 Cognitive function Voice/Name [facility] Work Phone: 03-24-2021 Cognitive function Voice/Name [facility] Work Phone: Clinical Notes 05-23-2015 to 10-19-2024 Note Date & Type Note Facility 10-19-2024 Discharge summary [facility] 10-19-2024 Note [facility] Medical Records Department [address] [place] [address] Discharge Summary 10/19/24 1635 MR#: [id number] Acct: [id number] Name: MARIA ISABEL VANN Rep #: [id number] : 1970 54 From: Darvin Posey DO PCP: Dr. Sapna Ray DO Status:ADM IN Location: [facility] [id number] Providers Date of Admission: 10/18/24 Primary Care Physician: Dr. Sapna Ray DO Reason For Visit: CHF EXACERBATION Diagnosis Discharge Diagnosis (1) CHF exacerbation: Status: Chronic Code(s): I50.9 - Heart failure, unspecified Plan: acute HFrEF. Global hypokinesis of the LV. Moderate-severe 3+ mitral valve insufficiency. Patient appears constipated though she does have a markedly large pleural effusions. I suspect these are more transudative however. Will initiate with IV furosemide 40 mg IV twice daily. Fluid restrict to 1.5 L/day. Daily weights. Discussed with Dr. Franklin of cardiology. Recommends outpatient follow-up in the cardiac office for further evaluation and management of her low EF. Will continue with lisinopril add carvedilol. (2) Pleural effusion: Status: Acute Code(s): J90 - Pleural effusion, not elsewhere classified Plan: Suspect transudative given the heart failure. Patient states that her father had a history of a very aggressive lung cancer. Patient had a therapeutic ultrasound removing 1.18 L. Patient felt better afterwards. Fluid came back consistent with transudative effusion. Is due to heart failure and this will need to be further optimized. (3) Diabetes mellitus: Status: Acute Code(s): E11.9 - Type 2 diabetes mellitus without complications Plan: Insulin-dependent. Hold metformin for [address] angiogram. Continue with her glargine as well as prandial insulin and add sliding scale insulin. A1c 12.6. Recommend patient follow-up with endocrinology. Plan ADELINE: Patient had been diagnosed with ADELINE in the past. She has not used CPAP in years. Though she does state that she has lost considerable amount of weight since that time. Vies patient to follow- up with pulmonary to have a repeat polysomnogram as outpatient. Obesity class I: Complicates care and recovery. Hypertension: Continue with lisinopril. Fibromyalgia: Continue with duloxetine VTE prophylaxis with enoxaparin CODE STATUS: Addressed with patient. Patient wished to be full code. Medications at Discharge Home Medications omeprazole 20 [...] hr 1,000 mg PO BID diabetes 12/07/23 Held on 10/19/24. Instructions: Resume on 10/23/24. Lactobacillus acidophilus 0.5 mg (100 million cell) tablet 1 mg PO BID 10/18/24 levocetirizine 5 mg tablet 5 mg PO DAILY 10/18/24 pregabalin 150 mg capsule 150 mg PO BID 10/18/24 sodium chloride 0.65 % nasal spray aerosol (Deep Sea Nasal) 1 spray intranasal 4X/DAY PRN PRN allergies 07/15/25 carvedilol 6.25 mg tablet 6.25 mg PO BID #60 tabs 10/19/24 furosemide 40 mg tablet (Lasix) 40 mg PO DAILY #30 tabs 10/19/24 lisinopril 10 mg tablet 10 mg PO DAILY #30 tabs 10/19/24 Hospital Course Operations None Procedures 2-D Echocardiogram and Thoracentesis Summary of Care Provided Hospital Course: Greater than 30 minutes spent on discharge This is a 54-year-old female presents with orthopnea. Presented and had CTA of her chest that showed bilateral pleural effusions. Concerning for CHF patient was started on furosemide IV. Patient underwent a therapeutic thoracentesis that removed 1.18 L. Patient felt better afterwards. Fluid came back as transudative likely due to her heart failure. Patient did have a low EF of 40%. I did discuss case with Dr. Franklin, of cardiology, who recommended outpatient follow-up. The patient will continue with the furosemide, lisinopril, will have carvedilol added. And patient advised to check her weight daily and keep a record and to limit her fluid intake daily. Also patient is diabetes poorly controlled her A1c is 12.6. In addition to following up cardiology she should follow-up with endocrinology as well. Patient improved faster than initially anticipated. Weight / B (more content not included)... [facility] 10-19-2024 Progress note [facility] 10-19-2024 Radiology Diagnostic study note [facility] Imaging Services [address] [place] [address] Chest Insp/Exp 2 View MR#: [id number] Acct: [id number] Name: MARIA ISABEL VANN Rep #: [id number] : 1970 F 54 From: oCby Herrera MD PCP: Dr. Sapna Ray, DO Status: ADM IN Study:Chest Insp/Exp 2 View Date of Exam: 10/19/24 Exam# [id number] Ordering Dr: Carlos Mathias i, MD EXAM: XR Chest, 1 View CLINICAL INDICATION: POST THORACENTESIS TECHNIQUE: Frontal view of the chest. COMPARISON: No relevant prior studies available. FINDINGS: LUNGS AND PLEURAL SPACES: Trace bilateral pleural effusions. Pulmonary venous congestion. No pneumothorax. HEART: Unremarkable. No cardiomegaly. MEDIASTINUM: Unremarkable. Normal mediastinal contour. BONES/JOINTS: Unremarkable. No acute fracture. RAD/Chest Insp/Exp 2 View IMPRESSION: 1. No pneumothorax. 2. Trace bilateral pleural effusions. 3. Pulmonary venous congestion. Reading Location: [facility] CC: Dr. Carlos Pimentel MD; Dr. Sapna Ray DO ~ Pit Supervisor: Signed [facility] 10-19-2024 Procedure note [facility] 10-19-2024 Progress note Note Date/Time October 19, 2024 4:35pm [facility] Medical Records Department [address] [place] [address] Progress Note - Hospitalist 10/19/24 0847 MR#: [id number] Acct: [id number] Name: MARIA ISABEL VANN Rep #:[id number] : 1970 54 From: Darvin Posey DO PCP: Dr. Sapna Ray DO Status:ADM IN Location: [place] [address]- Reason for Visit Chief Complaint: Shortness of breath Objective Data Objective Data Vital Signs: Vital Signs Temp Pulse Resp BP Pulse Ox O2 Del Method 36.4 C L 115 H 16 121/85 H 92 Room Air 10/19/24 03:20 10/19/24 03:20 10/19/24 03:20 10/19/24 03:20 10/19/24 03:20 10/19/24 08:34 Oxygen Delivery Method Room Air Weight: 89.4 kg Body Mass Index (BMI) 32.8 Intake & Output: Intake and Output for Last 24 Hours 10/17/24 10/18/24 10/19/24 23:59 23:59 23:59 Intake Total 780 / 780 320 / 320 Balance 780 / 780 320 / 320 Lab / Micro Data 10/19/24 05:11 10/19/24 05:11 Labs: Laboratory Results - last 24 hr 10/18/24 10:36: WBC 5.7, RBC 3.49 L, Hgb 10.2 L, Hct 30.7 L, MCV 88.0, MCH 29.2,MCHC 33.2, RDW Std Deviation 44.6 H, RDW Coeff of Elio 14.4, Plt Count 178, MPV 10.3, Immature Gran % (Auto) 2.300 H, Neut % (Auto) 57.9, Lymph % (Auto) 28.6, Upson % (Auto) 9.1, Eos % (Auto) 1.6, [...] T Hi Sens 2 Hr 34 H 10/18/24 17:09: POC Glucose 314 H 10/18/24 21:45: POC Glucose 276 H 10/19/24 05:11: WBC 6.5, RBC 3.75 L, Hgb 11.0 L, Hct 33.1 L, MCV 88.3, MCH 29.3,MCHC 33.2, RDW Std Deviation 45.1 H, RDW Coeff of Elio 14.5, Plt Count 199, MPV 10.0, Immature Gran % (Auto) 1.700 H, Neut % (Auto) 61.6, Lymph % (Auto) 26.5, Upson % (Auto) 7.7, Eos % (Auto) 2.0, Baso % (Auto) 0.5, Absolute Neuts (auto) 4.0, Absolute Lymphs (auto) 1.73, Nucleated RBC % 0, Sodium 136, Potassium 5.0, Chloride 103, Carbon Dioxide 22.2, Anion Gap 11, BUN 30 H, Creatinine 0.86, Estim Creat Clear Calc 83.55, Est GFR (MDRD) Non-Af 81, BUN/Creatinine Ratio 35.2 H, Glucose 299 H, Hemoglobin A1c 12.3 H, Calcium 9.0, Total Bilirubin 0.29,AST 36 H, ALT 28, Alkaline Phosphatase 80, Lactate Dehydrogenase 221, Total Protein 6.2, Albumin 3.3 L, Globulin 2.9, Albumin/Globulin Ratio 1.2, TSH 1.130 Micro: Microbiology 10/18/24 10:35 Mucosa - Nose SARS-CoV-2, Influenza & RSV (PCR) - Final Radiography Diagnostic Testing: Radiology Impression Chest X-Ray 10/18/24 10:22 IMPRESSION: Pulmonary congestion and edema. Pneumonia cannot be excluded. Reading Location: [facility] Chest CTA 10/18/24 11:08 IMPRESSION: 1. No pulmonary embolism is identified. Some of the distal pulmonary arteries cannot be evaluated due to suboptimal opacification. 2. Bilateral pleural effusions with compressive atelectasis and scattered ground-glass attenuation could represent pulmonary edema and/or multifocal pneumonia. Reading Location: [facility] Echocardiogram 10/18/24 15:00 Interpretation Summary Normal LV size. The left ventricular ejection fraction is 40 %. There is mild global hypokinesis of the left ventricle. Moderately severe (3+) eccentric mitral valve insufficiency. Contrast injection was performed. Ordering Physician: Darvin Posey Referring Physician: Sapna Ray Performed By: Loida Alvarez, NANCY, RVT Assessment & Plan Assessment/Plan (1) CHF exacerbation: PLAN: acute HFrEF. Global hypokinesis of the LV. Moderate-severe 3+ mitral valve insufficiency. Patient appears constipated though she does have a markedly large pleural effusions. I suspect these are more transudative however. Will initiate with IV furosemide 40 mg IV twice daily. Fluid restrict to 1.5 L/day. Daily weights. Discussed with Dr. Franklin of cardiology. Recommends outpatient follow-up in thecardiac office for further evaluation and management of her low EF. Will continue with lisinopril add carvedilol. (2) Pleural effusion: PLAN: Suspect transudative given the heart failure. Patient states that her father had a history of a very aggressive lung cancer. Patient had a therapeutic ultrasound removing 1.18 L. Patient felt better afterwards. Fluid came back consistent with transudative effusion. Is due to heart failure and this will need to be further optimized. (3) Diabetes mellitus: PLAN: Insulin-dependent. Hold metformin for [address] angiogram. Continuewith her glargine as well as prandial insulin and add sliding scale insulin. A1c 12.6. Recommend patient follow-up with endocrinology. PLAN: Plan ADELINE: Patient had been diagnosed [...] patient. Patient wished to be full code. 10/19/24 1635 <Electronically signed by Darvin Posey DO> Cosigner Signature (if applicable): CC: ~ Signed [facility] Work Phone: [phone] 120-956107-15-2025 Discharge summary Author Satyagris Mendenhall [facility] Note Date/Time October 18, 2024 3:49 pm [facility] Medical Records Department [address] [place] [address] Emergency Department Summary 10/18/24 MR#: [id number] Acct: [id number] Name: MARIA ISABEL VANN Rep #:[id number] : 1970 54 From: Satya crisostomo DO PCP: Dr. Sapna Ray DO Status:ADM IN Location: [place] [address] HPI History of Present Illness Chief Complaint: Shortness of Breath Narrative Narrative: Chief complaint and HPI: Shortness of breath. 54-year-old female with past medical history of DM2, fibromyalgia presents for evaluation of shortness of breath. Patient states a week ago she woke up with acid reflux. She thinks that she may have accidentally inhaled some of her acid reflux. She states later that evening she became short of breath. States that she has had a productive cough. Shortness of breath is progressively worsening. She denies any fever, chills, URI symptoms, abdominal pain, nausea, vomiting. States she has chest tightness but not true chest pain. Did recently have a car ride to [place]. Denies any bilateral lower extremity swelling or pain. Review of systems: See HPI Medications: As listed on the chart Allergies: As listed on the chart PFSH: Per chart Vital signs: As listed on the chart. Reviewed. Physical exam: Gen: A&O x3, NAD Head: Normocephalic, atraumatic Eyes: No sclera icterus, conjunctiva clear ENT: Moist mucous membranes Neck: Trachea midline, No JVD CV: Tachycardic, regular rhythm, no murmurs, no peripheral edema Resp: Lungs CTA BL but diminished in the bilateral bases, no w/r/c, tachypneic, dyspneic when speaking GI: Abd soft, non-distended, non-tender, no r/r/g Musc: Full ROM, no deformity Skin: Warm, dry Neuro: Alert, oriented, grossly intact, sensation intact Psych: Cooperative, appropriate mood and affect [facility] Medical History (Updated 10/18/24 @ 13:[address] Darvin Posey, ) Diabetes mellitus HLD (hyperlipidemia) Sleep apnea Anxiety [...] 1,250 1,250 mcg PO QWEEK vitamin 05/22/21 10/17/24 History mcg (50,000 unit) capsule diphenhydramine HCl [...] Reaction Status Date / Time etodolac (From [facility]) Allergy Rash Verified 01/15/24 12:24 Family History [...] use EXAM Physical Exam Const Vital Signs: 10/18/24 09:59 10/18/24 10:12 10/18/24 10:35 Temperature 97.0 F L Temperature Source Temporal Pulse Rate 117 [...] 10/18/24 11:30 10/18/24 11:30 10/18/24 11:32 Temperature 97.5 F L Temperature Source Oral Pulse Rate 108 H 116 H Respiratory Rate 25 H 16 Respiratory Effort Respiratory Depth Respiratory Pattern Blood Pressure 132/79 H 132/79 H Blood Pressure Mean 94 96 Pulse Ox 93 91 Oxygen Delivery Method Room Air 10/18/24 12:00 10/18/24 12:00 10/18/24 12:30 Temperature 97.5 F L Temperature Source Temporal Pulse Rate 111 H 118 H 110 H Respiratory Rate 19 H 25 H 20 H Respiratory Effort Respiratory Depth Respiratory Pattern Blood Pressure 127/65 H 127/65 H 138/74 H Blood Pressure Mean 83 85 91 Pulse Ox 96 94 95 Oxygen Delivery Method Room Air 10/18/24 13:00 10/18/24 13:00 10/18/24 13:05 Temperature 97.4 F L 97.4 F L Temperature Source Temporal Pulse Rate 124 H 115 H 124 H Respiratory Rate 25 H 22 H 25 H Respiratory Effort Respiratory Depth Respiratory Pattern Blood Pressure 157/87 H 150/87 H 157/87 H Blood Pressure Mean 110 105 110 Pulse Ox 94 94 94 Oxygen Delivery Method Room Air MDM MDM MDM Narrative Medical decision making narrative: 54-year-old female with past medical history of DM2, fibromyalgia presents for evaluation of shortness of breath. Patient states a week ago she woke up with acid reflux. She thinks that she may have accidentally inhaled some of her acidreflux since then has been endorsing progressive shortness of breath. Triage note states that the patient was 89% on room air. Currently 92% on room air. Patient is tachycardic, tachypneic, dyspneic when speaking. Differential diagnosis includes but is not limited to aspiration pneumonia, community-acquired pneumonia, viral illness, PE, ACS, CHF. DuoNeb and 500 cc NS bolus ordered. Respiratory workup ordered. CBC without leukocytosis. Patient has baseline anemia. D-dimer elevated at 1.6. On chart review, her D-dimer has beenelevated in the past however cannot rule out PE. CTA chest ordered. BMP with mild hyperkalemia of 5.3. No BERKLEY. Patient is hyperglycemic at 412. History ofdiabetes. Troponin 34 and 33. Patient not endorsing chest pain. Her BNP is elevated at 2429. Patient has no history of CHF. She is not overtly fluid overloaded on physical exam. Her chest x-ray was personally reviewed and interpreted by me, ED physician. Concern is for vascular congestion. Radiologyin agreement. CTA of the chest negative for PE. Patient has large bilateral pleural effusions with compressive atelectasis, scattered groundglass attenuation could represent pulmonary edema and/or multifocal pneumonia. Given patient has concerns for possible aspiration of acid reflux. Will treat with Unasyn. Patient will warrant admission for further workup and likely thoracentesis. Patient was discussed with the hospitalist who accepted admission. Patient was updated about the results of her nurse to the plan. EKG: Interpreted by me/EM physician: EKG shows sinus tachycardia with a heart rate of109. Nonspecific ST changes. Impression: 1. CHF exacerbation 2. Possible aspiration pneumonia 3. Large pleural bilateral pleural effusions secondary to #1 4. Hyperglycemia with known diabetes 5. Mild hyperkalemia Lab Data Labs: Laboratory Results - last 24 hr 10/18/24 10/18/24 10:36 12:42 WBC 5.7 RBC 3.49 L Hgb 10.2 L Hct 30.7 L MCV 88.0 MCH 29.2 MCHC 33.2 RDW Std Deviation 44.6 H RDW Coeff of Elio 14.4 Plt Count 178 MPV 10.3 Immature Gran % (Auto) 2.300 H Neut % (Auto) 57.9 Lymph % (Auto) 28.6 Upson % (Auto) 9.1 Eos % (Auto) 1.6 Baso % (Auto) 0.5 Absolute Neuts (auto) 3.3 Absolute Lymphs (auto) 1.63 Nucleated RBC % 0 D-Dimer Quant (PE/DVT) 1.60 H* Sodium 135 Potassium 5.3 H Chloride 102 Carbon Dioxide 21.3 Anion Gap 12 BUN 37 H Creatinine 1.01 Estim Creat Clear Calc 71.13 Est GFR (MDRD) Non-Af 67 BUN/Creatinine Ratio 36.8 H Glucose 412 H Lactic Acid 1.4 Calcium 8.7 Troponin T High Sens 33 H Troponin T Hi Sens 2 Hr 34 H NT pro BNP II 2429 H Radiography Diagnostic Testing: Clinical Impression(s) from Imaging Studies Chest X-Ray 10/18/24 10:22 IMPRESSION: Pulmonary congestion and edema. Pneumonia cannot be excluded. Reading Location: [facility] Chest CTA 10/18/24 11:08 IMPRESSION: 1. No pulmonary embolism is identified. Some of the distal pulmonary arteries cannot be evaluated due to suboptimal opacification. 2. Bilateral pleural effusions with compressive atelectasis and scattered ground-glass attenuation could represent pulmonary edema and/or multifocal pneumonia. Reading Location: [facility] Discharge Plan Disposition Disposition: Acute Care Hospital [facility] Discharge Date/Time: 10/18/24 14:29 What to do if you have Problems For any increased pain, shortness of breath, bleeding, nausea or vomiting, chestpain, or any unexpected problems, contact your Primary Care Provider. Call [facility] ([phone]) or report to the closest Emergency Room. Call 911 if necessary. 10/18/24 1540 <Electronically signed by Satya Mendenhall DO> Cosigner Signature (if applicable): CC: Dr. Sapna Ray DO ~ Signed [facility] Work Phone: [phone] History and physical note Author Darvin Posey [facility] Note Date/Time October 18, 2024 2:03 pm [facility] Medical Records Department [address] [place] [address] H&P Exam - Hospitalist 10/18/24 1359 MR#: [id number] Acct: [id number] Name: MARIA ISABEL VANN Rep #:[id number] : 1970 54 From: Darvin Posey DO [...] bilateral large effusions on her chest CT. PENDING SALE TO [facility] Medical History (Updated 10/18/24 @ 13:[address] Darvin Posey DO) Diabetes mellitus HLD (hyperlipidemia) Sleep apnea [...] Reaction Status Date / Time etodolac (From [facility]) Allergy Rash Verified 01/15/24 12:24 Family History [...] % (Auto) 57.9, Lymph % (Auto) 28.6, Upson % (Auto) 9.1, Eos % (Auto) 1.6, [...] edema. Pneumonia cannot be excluded. Reading Location: [facility] Chest CTA 10/18/24 11:08 IMPRESSION: 1. No pulmonary embolism is identified. Some of the distal pulmonary arteries cannot be evaluated due to suboptimal opacification. 2. Bilateral pleural effusions with compressive atelectasis and scattered ground-glass attenuation could represent pulmonary edema and/or multifocal pneumonia. Reading Location: [facility] Assessment & Plan Assessment/Plan (1) CHF exacerbation: [...] full code. Charges/Coding Visit Charges Inpatient E&M: 81470 Init Hosp L3 10/18/24 1403 <Electronically signed by Darvin Posey DO> Cosigner Signature (if applicable): CC: Dr. Darvin Posey DO; Dr. Sapna Ray DO~ Signed [facility] Work Phone: [phone]) [phone] Discharge summary [facility] Medical Records Department [address] [place] [address] Emergency Department Summary 10/18/24 MR#: [id number] Acct: [id number] Name: MARIA ISABEL VANN Rep #:[id number] : 1970 54 From: Satya crisostomo DO PCP: Dr. Sapna Ray DO Status:ADM IN Location: [place] [address] HPI History of Present Illness Chief Complaint: Shortness of Breath Narrative Narrative: Chief complaint and HPI: Shortness of breath. 54-year-old female with past medical history of DM2, fibromyalgia presents for evaluation of shortness of breath. Patient states a week ago she woke up with acid reflux. She thinks that she may have accidentally inhaled some of her acid reflux. She states later that evening she became short of breath. States that she has had a productive cough. Shortness of breath is progressively worsening. She denies any fever, chills, URI symptoms, abdominal pain, nausea, vomiting. States she has chest tightness but not true chest pain. Did recently have a car ride to [place]. Denies any bilateral lower extremity swelling or pain. Review of systems: See HPI Medications: As listed on the chart Allergies: As listed on the chart PFSH: Per chart Vital signs: As listed on the chart. Reviewed. Physical exam: Gen: A&O x3, NAD Head: Normocephalic, atraumatic Eyes: No sclera icterus, conjunctiva clear ENT: Moist mucous membranes Neck: Trachea midline, No JVD CV: Tachycardic, regular rhythm, no murmurs, no peripheral edema Resp: Lungs CTA BL but diminished in the bilateral bases, no w/r/c, tachypneic, dyspneic when speaking GI: Abd soft, non-distended, non-tender, no r/r/g Musc: Full ROM, no deformity Skin: Warm, dry Neuro: Alert, oriented, grossly intact, sensation intact Psych: Cooperative, appropriate mood and affect [facility] Medical History (Updated 10/18/24 @ 13:58 [...] 1,250 1,250 mcg PO QWEEK vitamin 05/22/21 10/17/24 History mcg (50,000 unit) capsule diphenhydramine HCl [...] Reaction Status Date / Time etodolac (From [facility]) Allergy Rash Verified 01/15/24 12:24 Family History [...] use EXAM Physical Exam Const Vital Signs: 10/18/24 09:59 10/18/24 10:12 10/18/24 10:35 Temperature 97.0 F L Temperature Source Temporal Pulse Rate 117 [...] 10/18/24 11:30 10/18/24 11:30 10/18/24 11:32 Temperature 97.5 F L Temperature Source Oral Pulse Rate 108 H 116 H Respiratory Rate 25 H 16 Respiratory Effort Respiratory Depth Respiratory Pattern Blood Pressure 132/79 H 132/79 H Blood Pressure Mean 94 96 Pulse Ox 93 91 Oxygen Delivery Method Room Air 10/18/24 12:00 10/18/24 12:00 10/18/24 12:30 Temperature 97.5 F L Temperature Source Temporal Pulse Rate 111 H 118 H 110 H Respiratory Rate 19 H 25 H 20 H Respiratory Effort Respiratory Depth Respiratory Pattern Blood Pressure 127/65 H 127/65 H 138/74 H Blood Pressure Mean 83 85 91 Pulse Ox 96 94 95 Oxygen Delivery Method Room Air 10/18/24 13:00 10/18/24 13:00 10/18/24 13:05 Temperature 97.4 F L 97.4 F L Temperature Source Temporal Pulse Rate 124 H 115 H 124 H Respiratory Rate 25 H 22 H 25 H Respiratory Effort Respiratory Depth Respiratory Pattern Blood Pressure 157/87 H 150/87 H 157/87 H Blood Pressure Mean 110 105 110 Pulse Ox 94 94 94 Oxygen Delivery Method Room Air MDM MDM MDM Narrative Medical decision making narrative: 54-year-old female with past medical history of DM2, fibromyalgia presents for evaluation of shortness of breath. Patient states a week ago she woke up with acid reflux. She thinks that she may have accidentally inhaled some of her acidreflux since then has been endorsing progressive shortness of breath. Triage note states that the patient was 89% on room air. Currently 92% on room air. Patient is tachycardic, tachypneic, dyspneic when speaking. Differential diagnosis includes but is not limited to aspiration pneumonia, community- acquired pneumonia, viral illness, PE, ACS, CHF. DuoNeb and 500cc NS bolus ordered. Respiratory workup ordered. CBC without leukocytosis. Patient has baseline anemia. D-dimer elevated at 1.6. On chart review, her D-dimer has beenelevated in the past however cannot rule out PE. CTA chest ordered. BMP with mild hyperkalemia of 5.3. No BERKLEY. Patient is hyperglycemic at 412. History ofdiabetes. Troponin 34 and 33. Patient not endorsing chest pain. Her BNP is elevated at 2429. Patient has no history of CHF. She is not overtly fluid overloaded on physical exam. Her chest x-ray was personally reviewed and interpreted by me, ED physician. Concern is for vascular congestion. Radiologyin agreement. CTA of the chest negative for PE. Patient has large bilateral pleu ral effusions with compressive atelectasis, scattered groundglass attenuation could represent pulmonary edema and/or multifocal pneumonia. Given patient has concerns for possible aspiration of acid reflux. Will treat with Unasyn. Patient will warrant admission for further workup and likely thoracentesis. Patient was discussed with the hospitalist who accepted admission. Patient was updated about the results of her nurse to the plan. EKG: Interpreted by me/EM physician: EKG shows sinus tachycardia with a heart rate of109. Nonspecific STchanges. Impression: 1. CHF exacerbation 2. Possible aspiration pneumonia 3. Large pleural bilateral pleural effusions secondary to #1 4. Hyperglycemia with known diabetes 5. Mild hyperkalemia Lab Data Labs: Laboratory Results - last 24 hr 10/18/24 10/18/24 10:36 12:42 WBC 5.7 RBC 3.49 L Hgb 10.2 L Hct 30.7 L MCV 88.0 MCH 29.2 MCHC 33.2 RDW Std Deviation 44.6 H RDW Coeff of Elio 14.4 Plt Count 178 MPV 10.3 Immature Gran % (Auto) 2.300 H Neut % (Auto) 57.9 Lymph % (Auto) 28.6 Upson % (Auto) 9.1 Eos % (Auto) 1.6 Baso % (Auto) 0.5 Absolute Neuts (auto) 3.3 Absolute Lymphs (auto) 1.63 Nucleated RBC % 0 D-Dimer Quant (PE/DVT) 1.60 H* Sodium 135 Potassium 5.3 H Chloride 102 Carbon Dioxide 21.3 Anion Gap 12 BUN 37 H Creatinine 1.01 Estim Creat Clear Calc 71.13 Est GFR (MDRD) Non-Af 67 BUN/Creatinine Ratio 36.8 H Glucose 412 H Lactic Acid 1.4 Calcium 8.7 Troponin T High Sens 33 H Troponin T Hi Sens 2 Hr 34 H NT pro BNP II 2429 H Radiography Diagnostic Testing: Clinical Impression(s) from Imaging Studies Chest X-Ray 10/18/24 10:22 IMPRESSION: Pulmonary congestion and edema. Pneumonia cannot be excluded. Reading Location: [facility] Chest CTA 10/18/24 11:08 IMPRESSION: 1. No pulmonary embolism is identified. Some of the distal pulmonary arteries cannot be evaluated due to suboptimal opacification. 2. Bilateral pleural effusions with compressive atelectasis and scattered ground-glass attenuation could represent pulmonary edema and/or multifocal pneumonia. Reading Location: [facility]-- Discharge Plan Disposition Disposition: Acute Care Hospital [facility] Discharge Date/Time: 10/18/24 14:29 What to do if you have Problems For any increased pain, shortness of breath, bleeding, nausea or vomiting, chestpain, or any unexpected problems, contact your Primary Care Provider. Call [facility] ([phone]) or report tothe closest Emergency Room. Call 911 if necessary. 10/18/24 0783 Cosigner Signature (if applicable): CC: Dr. Sapna Ray DO ~ Signed [facility]07-15-2025 Evaluation note* Diagnosis Onset Date Resolution Status Admit Date Diabetes mellitus acute October 182024 1:48pm Pleural effusion acute October h2024 1:48pm CHF exacerbation chronic October h2024 1:48pm [facility] Work Phone: 1(178) 235-630507-15-2025 History and physical note [facility] Medical Records Department [address] [place] [address] H&P Exam - Hospitalist 10/18/24 1354 MR#: [id number] Acct: [id number] Name: MARIA ISABEL VANN Rep #:[id number] : 1970 54 From: Darvin Posey DO [...] chest. There is no pulmonary embolism. Was pulmonaryvascular congestion as well as to bilateral large effusions on her chest CT. PENDING SALE TO [facility] Medical History (Updated 10/18/24 @ 13:58 by [...] Reaction Status Date / Time etodolac (From [place]) Allergy Rash Verified 01/15/24 12:24 Family History [...] appeared normal. Heart was grossly normal with outany obvious pericardial effusions. - Physical Exam General: [...] % (Auto) 57.9, Lymph % (Auto) 28.6, Upson % (Auto) 9.1, Eos % (Auto) 1.6, Baso % (Auto) 0.5, Absolute Neuts (auto) 3.3, Absolute Lymphs (auto) 1.63, Nucleated RBC % 0, D-Dimer Quant (PE/DVT) 1.60H*,Sodium 135, Potassium 5.3 H, Chloride 102, Carbon [...] edema. Pneumonia cannot be excluded. Reading Location: [facility] Chest CTA 10/18/24 11:08 IMPRESSION: 1. No pulmonary embolism is identified. Some of the distal pulmonary arteries cannot be evaluated due to suboptimal opacification. 2. Bilateral pleural effusions with compressive atelectasis and scattered ground-glass attenuation could represent pulmonary edema and/or multifocal pneumonia. Reading Location: [facility] Assessment & Plan Assessment/Plan (1) CHF exacerbation: [...] states that her father had a history ofa very aggressive lung cancer. Will do a [...] full code. Charges/Coding Visit Charges Inpatient E&M: 66870 Init Hosp L3 10/18/24 1403 Cosigner Signature (if applicable): CC: Dr. Darvin Posey DO; Dr. Sapna Ray DO~ Signed [facility]07-15-2025 Radiology Diagnostic study note [facility] Imaging Services [address] [place], [place] [address] CTA Chest W/WO Contrast MR#: [id number] Acct: [id number] Name: MARIA ISABEL VANN Rep #: [id number] : 1970 F 54 From: Coby Herrera MD PCP: Dr. Sapna Ray DO Status: REG ER Study:CTA Chest W/WO Contrast Date of Exam: 10/18/24 Exam# [id number] Ordering Dr: Satya Boyd DO EXAM: CT Angiography Chest Without and With Intravenous Contrast CLINICAL INDICATION: PE TECHNIQUE: Axial computed tomographic angiography images of the chest without and with intravenous contrast. This CT exam was performed using one or more of the following dose reduction techniques: automated exposure control,adjustment of the mA and/or kV according to [...] pulmonary edema and/or multifocal pneumonia. Reading Location: [facility] CC: Dr. Satya Mendenhall DO; Dr. Sapna Ray DO ~ Pit Supervisor: Signed [facility]07-15-2025 Radiology Diagnostic study note [facility] Imaging Services [address] [place] [id number] Chest PA and Lateral MR#: [id number] Acct: [id number] Name: MARIA ISABEL VANN Rep #: [id number] : 1970 F 54 From: Coby Hererra MD PCP: Dr. Sapna Ray DO Status: REG ER Study:Chest PA and Lateral Date of Exam: 10/18/24 Exam# [id number] Ordering Dr: Satya Boyd DO EXAM: XR [...] edema. Pneumonia cannot be excluded. Reading Location: [facility] CC: Dr. Satya Mendenhall DO; Dr. Sapna Ray DO ~ Pit Supervisor: Signed [facility]04-14-2025 NoteHNO ID: [id number] Author: MERRY MEDRANO APRN.[employer] Service: ? Author Type: Nurse Practitioner Type: [...] and frontal sinus tenderness present. Mouth/Throat: Lips: [place]. Mouth: Mucous membranes are moist. Pharynx: Oropharynx is clear. Posterior oropharyngeal erythema present. No oropharyngeal exudate. Eyes: Extraocular Movements: Extraocular movements intact. Conjunctiva/sclera: Conjunctivae normal. Pupils: Pupils are equal, round, and reactive to light. Cardiovascular: Rate and Rhythm: Normal rate and regular rhythm. Pulses: Normal pulses. Heart sounds: Normal heart sounds. Pulmonary: (more content not included)...[facility]04-14-2025 History of Present illness Narrative* Merry Medrano APRN.[facility] - 07/18/2024 10:03 AM EDT Images from the original note were not included. [facility] NOTE Subjective Maria Isabel Vann is a 54 year old year old who presents to [facility] care today with complaint of Sinus [...] and frontal sinus tenderness present. Mouth/Throat: Lips: [place]. Mouth: Mucous membranes are moist. Pharynx: Oropharynx [...] instructions. Discussed use, benefit, and side effects ofprescribed medications. All questions answered. Patient advised to follow up with PCP in one week, or sooner if symptoms worsen or persist. If symptoms become severe- GO TO ED. Patient verbalized understanding and agreeable with treatment plan. Merry Medrano APRN, CNP 07/18/2024 10:03 AM [facility] [place] Instructions* Patient Instructions* Merry Medrano APRN.[facility] - 07/18/2024 10:02 AM [...] difficult to tell if you have sinusitis, acold, or a nasal allergy. This article will describe the symptoms, diagnosis, and treatment of sinusitis, and how to distinguish sinusitis from a cold or nasal allergy. What is sinusitis? Sinusitis is an inflammation, or swelling, of the tissue lining the sinuses. There are two types ofsinusitis: Acute sinusitis: a sudden onset of cold symptoms such as runny nose, stuffy nose, and facial pain that does not go away after 7-10 days. It responds well to antibiotics and decongestants. Chronic sinusitis: characterized by nasal congestion, drainage, facial pain/pressure, and decreasedsense of smell for at least 12 weeks. Who gets sinusitis? About 37 million Americans suffer from at least one episode of sinusitis each year. People who havethe following conditions have a higher risk of [...] intranasal steroid sprays might be effective in co ntrolling symptoms. However, non-prescription drops or sprays should [...] smoke, should be avoided. documented in [facility] [place]10-12-2024 [facility] Medical Records Department [address] [place] [address] Discharge Summary 01/16/24 1410 MR#: [id number] Acct: [id number] Name: MARIA ISABEL VANN Rep #: [id number] : 1970 53 From: J Luis Diaz MD PCP: Dr. Sapna Ray DO Status:DIS IN Location: [address] Providers Date of Admission: 01/15/24 Primary Care [...] 81 mg tablet 81 mg PO DAILY [facility] 04/19/21 insulin lispro 100 unit/mL subcutaneous pen [...] of diabetes, GERD, fibromyalgia who presented to [facility] ED 01/15/2024 feeling unwell since this [...] Less than 3 Se (more content not included)...[facility]12-25-2022 Hospital Discharge instructions Additional Instructions Creatinine 1.68 up from 1.37 in October. Normal prior to that. Drink fluids at home for hydration. Follow-up with your doctor recheck labs. Sodium 132. Return if any worsening symptoms.[facility] Work Phone: 1(949) 502-923611-01-2022 History of Present illness Narrative* Warren Blanco MD - 02/04/2022 11:30 AM EDT ASSESSMENT/PLAN: 1. Type 2 diabetes mellitus with [...] findings as obtained by the ophthalmic technical staff.I have seen and examined Maria Isabel Vann. [...] diagnosis, and treatment options. documented in [facility] encounter[facility] [place]-01-2022 Instructions* Patient Instructions* Warren Blanco MD - 02/04/2022 11:00 AM [...] any questions please contact our office at [phone]. After office hours or on the weekend, please call Dr. Blanco on his cell phone at [phone]. documented in this encounter[facility] [place]-27-[facility] Hospital Discharge instructions Additional Instructions Your blood pressure improved with IV fluids. Your creatinine 1.36 today your previous 0.96 over a month ago. Continue oral fluids at home. You may want to hold your Relafen and use Tylenol as needed for pain. Follow-up with your doctor recheck labs as an outpatient. [facility] Work Phone: 1([phone]) 434-104505-26-2022 History of Present illness Narrative* Júnior Alvarado MD - 08/29/2021 11:33 AM EDT Patient presents with: Pain: Pt reported fall/lifting [...] impingement with radicular symptoms, peripheral neuropathy, [place]. Continue management with primary care. Hospital and ER records are not readily available for reviewand chronic pain management is beyond the scope of care available in [facility]. Júnior Alvarado MD documented in this encounter[facility] [place]-17-2016 History of Past illness Narrative* Problem Noted Date Resolved Date Second degree uterine prolaps 05/23/2015 Cystocele, midline 05/23/2015 07/06/2015 ASCUS with positive high risk HPV 01/22/2015 07/06/2015 Menorrhagia with irregular cycle 01/22/2015 07/06/2015 Irregular menstrual cycle 01/22/20152015 documented as of this encounter (statuses as of 08/29/2021) [facility] [place]2016 History of Past illness Narrative* Problem Noted Date Resolved Date Second degree uterine prolaps 05/23/2015 Cystocele, midline 05/23/2015 07/06/2015 ASCUS with positive high risk HPV 01/22/2015 07/06/2015 Menorrhagia with irregular cycle 01/22/2015 07/06/2015 Irregular menstrual cycle 01/22/20152015 documented as of this encounter (statuses as of 02/04/2022) [facility] Author Darvin Posey [facility] Note Date/Time October 19, 2024 4:43 pm [facility] Medical Records Department [address] [place] [address] Discharge Summary 10/19/24 1635 MR#: [id number] Acct: [id number] Name: MARIA ISABEL VANN Rep #:[id number] : 1970 54 From: Darvin Posey DO PCP: Dr. Sapna Ray DO Status:ADM IN Location: [place] [id number] Providers Date of Admission: 10/18/24 Primary Care Physician: Dr. Sapna Ray DO Reason For Visit: CHF EXACERBATION Diagnosis Discharge Diagnosis (1) CHF exacerbation: Status: Chronic Code(s): I50.9 - Heart failure, unspecified Plan: acute HFrEF. Global hypokinesis of the LV. Moderate-severe 3+ mitral valve insufficiency. Patient appears constipated though she does have a markedly large pleural effusions. I suspect these are more transudative however. Will initiate with IV furosemide 40 mg IV twice daily. Fluid restrict to 1.5 L/day. Daily weights. Discussed with Dr. Franklin of cardiology. Recommends outpatient follow-up in thecardiac office for further evaluation and management of her low EF. Will continue with lisinopril add carvedilol. (2) Pleural effusion: Status: Acute Code(s): J90 - Pleural effusion, not elsewhere classified Plan: Suspect transudative given the heart failure. Patient states that her father had a history of a very aggressive lung cancer. Patient had a therapeutic ultrasound removing 1.18 L. Patient felt better afterwards. Fluid came back consistent with transudative effusion. Is due to heart failure and this will need to be further optimized. (3) Diabetes mellitus: Status: Acute Code(s): E11.9 - Type 2 diabetes mellitus without complications Plan: Insulin-dependent. Hold metformin for [address] angiogram. Continue with her glargine as well as prandial insulin and add sliding scale insulin. A1c 12.6. Recommend patient follow-up with endocrinology. Plan ADELINE: Patient had been diagnosed with [...] patient. Patient wished to be full code. Medications at Discharge Home Medications omeprazole 20 mg capsule,delayed release 20 mg PO DAILY gerd 03/23/21 duloxetine 60 mg capsule,delayed release 60 mg PO BID depression 04/07/21 fenofibrate micronized 67 mg capsule 67 mg PO BID HLD 04/07/21 aspirin 81 mg tablet 81 mg PO DAILY [facility] 04/19/21 insulin lispro 100 unit/mL subcutaneous pen (Humalog KwikPen (U-100) Insulin) 20unit (0.2 mL) subcut TIDAC blood suagr 30 [...] hr 1,000 mg PO BID diabetes 12/07/23 Held on 10/19/24. Instructions: Resume on 10/23/24. Lactobacillus acidophilus 0.5 mg (100 million cell) tablet 1 mg PO BID 10/18/24 levocetirizine 5 mg tablet 5 mg PO DAILY 10/18/24 pregabalin 150 mg capsule 150 mg PO BID 10/18/24 sodium chloride 0.65 % nasal spray aerosol (Deep Sea Nasal) 1 spray intranasal 4X/DAY PRN PRN allergies 10/18/24 carvedilol 6.25 mg tablet 6.25 mg PO BID #60 tabs 10/19/24 furosemide 40 mg tablet (Lasix) 40 mg PO DAILY #30 tabs 10/19/24 lisinopril 10 mg tablet 10 mg PO DAILY #30 tabs 10/19/24 Hospital Course Operations None Procedures 2-D Echocardiogram and Thoracentesis Summary of Care Provided Hospital Course: Greater than 30 minutes spent on discharge This is a 54-year-old female presents with orthopnea. Presented and had CTA of her chest that showed bilateral pleural effusions. Concerning for CHF patient was started on furosemide IV. Patient underwent a therapeutic thoracentesis that removed 1.18 L. Patient felt better afterwards. Fluid came back as transudative likely due to her heart failure. Patient did have a low EF of 40%. I did discuss case with Dr. Franklin, of cardiology, who recommended outpatient follow-up. The patient will continue with the furosemide, lisinopril, will havecarvedilol added. And patient advised to check her weight daily and keep a record and to limit her fluid intake daily. Also patient is diabetes poorly controlled her A1c is 12.6. In addition to following up cardiology she should follow-up with endocrinology as well. Patient improved faster than initially anticipated. Weight / BMI Weight Weight: 89.4 kg Body Mass Index (BMI) 32.8 ABG / Lab / Microbiology Data 10/19/24 05:11 10/19/24 05:11 Laboratory: Laboratory Results - last 24 hr 10/18/24 17:09: POC Glucose 314 H 10/18/24 21:45: POC Glucose 276 H 10/19/24 05:11: WBC 6.5, RBC 3.75 L, Hgb 11.0 L, Hct 33.1 L, MCV 88.3, MCH 29.3,MCHC 33.2, RDW Std Deviation 45.1 H, RDW Coeff of Elio 14.5, Plt Count 199, MPV 10.0, Immature Gran % (Auto) 1.700 H, Neut % (Auto) 61.6, Lymph % (Auto) 26.5, Upson % (Auto) 7.7, Eos % (Auto) 2.0, Baso % (Auto) 0.5, Absolute Neuts (auto) 4.0, Absolute Lymphs (auto) 1.73, Nucleated RBC % 0, Sodium 136, Potassium 5.0, Chloride 103, Carbon Dioxide 22.2, Anion Gap 11, BUN 30 H, Creatinine 0.86, Estim Creat Clear Calc 83.55, Est GFR (MDRD) Non-Af 81, BUN/Creatinine Ratio 35.2 H, Glucose 299 H, Hemoglobin A1c 12.3 H, Calcium 9.0, Total Bilirubin 0.29,AST 36 H, ALT 28, Alkaline Phosphatase 80, Lactate Dehydrogenase 221, Total Protein 6.2, Albumin 3.3 L, Globulin 2.9, Albumin/Globulin Ratio 1.2, TSH 1.130 10/19/24 08:12: POC Glucose 275 H 10/19/24 11:59: POC Glucose 181 H 10/19/24 13:37: Fluid Source PLEURAL FLUID, Fluid Color YELLOW, Fluid AppearanceCLEAR, Fluid WBC 0.150, Fluid RBC 605, Fluid Tot Cell Count 0.188 H, Fld Polynuclear WBCs # 0.017, Fld Polynuclear WBCs % 11.3, Fluid Mononuclear WBCs 0.133, Fld Mononuclear WBCs % 88.7, Fluid Neutrophils 8, Fluid Lymphocytes 45, Fluid Monocytes 12, Fluid Macrophages 24, Fld Mesothelial Cells 10, Fluid Other Cells 1, Fl Pathologist Comment May follow, Fluid Glucose 248, Fluid Total Protein 1.5, Fluid LDH 82, Fluid Comment 2 SEE COMMENT Microbiology: Microbiology 10/19/24 13:37 Fluid - Pleural (Lung) Gram Stain - Final 10/18/24 10:35 Mucosa - Nose SARS-CoV-2, Influenza & RSV (PCR) - Final Radiography Diagnostic Testing: Radiology Impression Echocardiogram 10/18/24 15:00 Interpretation Summary Normal LV size. The left ventricular ejection fraction is 40 %. There is mild global hypokinesis of the left ventricle. Moderately severe (3+) eccentric mitral valve insufficiency. Contrast injection was performed. Ordering Physician: Darvin Posey Referring Physician: Sapna Ray Performed By: Loida Alvarez, RDCS, RVT Chest X-Ray 10/19/24 13:45 IMPRESSION: 1. No pneumothorax. 2. Trace bilateral pleural effusions. 3. Pulmonary venous congestion. Reading Location: [facility] D/C Instructions Call your doctor if you observe: Shortness of breath, Swelling in the ankles andChest pain DC O2, CPAP, BIPAP Needs Home O2 Discharge instructions: No Meaningful Use Info Meaningful Use Meaningful Use Diagnoses (Choose all that apply): CHF CHF RADHA/ARB ordered at discharge?: Yes Documented LVEF (%): 40 Discharge Plan Admission Admit Date/Time: 10/18/24 13:48 Primary Reason for Your Visit: Heart failure exacerbation. Pleural effusions. Attending Provider: Darvin Posey Primary Care Provider: Sapna Ray Instructions Additional Instructions / Restrictions: You have pleural effusions (fluid between your chest and your lungs) likely due to heart failure. We removed over liter from your chest. As we discussed this is consistent with more likely heart failure. That management will be continue with fluid removal with furosemide (Lasix). Will try to optimize your heart function as well with medications including continuing lisinopril and adding carvedilol. You should follow with cardiology next 2 to 4 weeks for further monitoring. Additionally your diabetes has not been optimally controlled and I do recommend a follow-up with endocrinology as well. Discharge Orders/Prescriptions Prescriptions: New carvedilol 6.25 mg tablet 6.25 mg PO BID Qty: 60 0RF Rx Instructions: must administer with a meal/food lisinopril 10 mg tablet 10 mg PO DAILY Qty: 30 0RF furosemide [Lasix] 40 mg tablet 40 mg PO DAILY Qty: 30 0RF Continued ondansetron HCl 8 mg tablet 8 [...] pen 50 - 75 units subcut BID Deep Sea Nasal 0.65 % aerosol,spray 1 spray INTRANASAL 4X/DAY PRN PRN (Reason: allergies) pregabalin 150 mg capsule 150 mg PO BID levocetirizine 5 mg tablet 5 mg PO DAILY Lactobacillus acidophilus 0.5 mg (100 million cell) tablet 1 mg PO BID Held metformin 500 mg tablet extended release 24 hr 1,000 mg PO BID Hold Instructions: Resume on 10/23/24. Discontinued lisinopril 2.5 mg tablet 2.5 mg PO DAILY Referrals / Follow Up: [facility] [Provider Group] - Within 1 Month [facility] [Provider Group] - Within 2 Weeks Sapna Ray DO [Primary Care Provider] - Within 2 Weeks Disposition Disposition (needs filled in before D/C Order can be placed): Home, Self Care Charges/Coding Visit Charges Inpatient E&M: 66537 Disch Hosp >30min 10/19/24 1643 <Electronically signed by Darvin Posey DO> Cosigner Signature (if applicable): CC: Dr. Darvin Posey DO; Dr. Sapna Ray DO~ Signed [facility] Work Phone: Evaluation + Plan note No data available for this section [facility] Pain Management Evaluation note* Diagnosis Onset Date Resolution Status Acute hyponatremia resolved Diabetic ketoacidosis resolv ed Pneumonia due to 2019-nCoV r esolved Bilateral pneumonia acute HLD (hyperlipidemia) acute Hypoxia resolved Sinus tachycardia resolved [facility] Work Phone: Evaluation note* Diagnosis Rib pain on left side- Primary Chest pain, unspecified Acute pain of right knee Leg weakness, bilateral Other musculoskeletal symptoms referable to limbs Chronic bilateral low back pain with bilateral sciatica documented [facility] this encounter [facility] department noteNo assessment information availableWKettering Health [facility] Work Phone: Evaluation note* Diagnosis Onset Date Resolution Status COVID-19 tadeo johnson manifesting chronic fatigue 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, 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 acute Sciatica of right side acute [facility] Work Phone: Evaluation note* Diagnosis Onset Date Resolution Status COVID-19 tadeo johnson manifesting chronic fatigue 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, 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 acute Sciatica of right side acute Diabetic neuropathy associat ed with type 2 diabetes mellitus acute [facility] Work Phone: Evaluation note* Diagnosis Type [...] unspecified depression type documented in this encounter [facility]* Diagnosis Onset Date Resolution Status Diabetic neuropathy associat ed with type 2 diabetes mellitus acute [facility] Work Phone: Evaluation note* Diagnosis Rib pain on left side Chest pain, unspecified Acute pain of right knee documented in this encounter [facility] note* Diagnosis Bacterial sinusitis- Primary Unspecified sinusitis (chronic) Antibiotic-induced yeast infection Candidiasis of unspecified site documented in this encounter [facility]* Diagnosis Onset Date Resolution Status Admit Date Diabetes mellitus acute October 182024 1:48pm Pleural effusion acute October 1:48pm CHF exacerbation chronic October 1:48pm [facility] Work Phone: History and physical note Author Darvin Posey [facility] Note Date/Time October 18, 2024 2:03 pm [facility] Medical Records Department [address] [place] [address] H&P Exam - Hospitalist 10/18/24 1354 MR#: [id number] Acct: [id number] Name: MARIA ISABEL VANN Rep #:[id number] : 1970 54 From: Darvin Posey DO [...] bilateral large effusions on her chest CT. PENDING SALE TO [facility] Medical History (Updated 10/18/24 @ 13:[address] Darvin Posey, ) Diabetes mellitus HLD (hyperlipidemia) Sleep apnea Anxiety [...] Reaction Status Date / Time etodolac (From [facility]) Allergy Rash Verified 01/15/24 12:24 Family History [...] % (Auto) 57.9, Lymph % (Auto) 28.6, [place]pson % (Auto) 9.1, Eos % (Auto) 1.6, [...] edema. Pneumonia cannot be excluded. Reading Location: [facility] Chest CTA 10/18/24 11:08 IMPRESSION: 1. No pulmonary embolism is identified. Some of the distal pulmonary arteries cannot be evaluated due to suboptimal opacification. 2. Bilateral pleural effusions with compressive atelectasis and scattered ground-glass attenuation could represent pulmonary edema and/or multifocal pneumonia. Reading Location: [facility] Assessment & Plan Assessment/Plan (1) CHF exacerbation: [...] full code. Charges/Coding Visit Charges Inpatient E&M: 86913 Init Hosp L3 10/18/24 1400 <Electronically signed by Darvin Posey DO> Cosigner Signature (if applicable): CC: Dr. Darvin Posey, DO; Dr. Sapna Ray DO~ Signed [facility] Work Phone: Hospital Discharge instructions Additional Instructions As discussed, you can use Flexeril as a muscle relaxer instead of your Zanaflex. Please do not take the 2 together. After completing the course of Flexeril you can go back to your baseline Zanaflex.[facility] Work Phone: [facility]WK[facility] Work Phone: Hospital Discharge instructions No data available for this section [facility] Hospital Discharge instructionsAdditional Instructions You have pleural effusions (fluid between your chest and your lungs) likely due to heart failure. We removed over liter from your chest. As we discussed this is consistent with more likely heart failure. That management will be continue with fluid removal with furosemide (Lasix). Will try to optimize your heart function as well with medications including continuing lisinopril and adding carvedilol. You should follow with cardiology next 2 to 4 weeks for further monitoring. Additionally your diabetes has not been optimally controlled and I do recommend a follow-up with endocrinology as well.[facility] Work Phone: Progress note No data available for this section [facility] reason for referral (narrative)* Diagnostic Procedure Only (Urgent) - Closed Specialty Diagnoses / Procedures Referred By Contac t Referred To Contact XR IMAGING Diagnoses Acute pain of right knee Procedures XR KNEE GENERAL 4V AP BOTH/PA BOTH/LAT/MERC RIGHT RADIOLOGIC EXAM KNEE COMPLETE 4/MORE VIEWS Júnior Alvarado MD [address] [place] [id number] Xr Imaging Referral ID Status Reason Start Date Expiration Date V isits Requested Visits Authorized [id number] Closed Auto-Generate d Referral 08/29/2021 09/28/2022 1 1 * Diagnostic Procedure Only (Urgent) - Closed Specialty Diagnoses / Procedures Referred By Contac t Referred To Contact XR IMAGING Diagnoses Rib pain on left side Procedures XR RIBS/CHEST 3V AP RIB/OBLS/CXR LEFT RADEX RIBS UNI W/POSTEROANT CH MINIMUM 3 VIEWS Júnior Alvarado MD [address] [place] [id number] Xr Imaging Referral ID Status Reason Start Date Expiration Date V isits Requested Visits Authorized [id number] Closed Auto-Generate d Referral 08/29/2021 09/28/2022 1 1 [facility] for referral (narrative)* Diagnostic Procedure Only (Urgent) - Closed Specialty Diagnoses / Procedures Referred By Contac t Referred To Contact XR IMAGING Diagnoses Acute pain of right knee Procedures XR KNEE GENERAL 4V AP BOTH/PA BOTH/LAT/MERC RIGHT RADIOLOGIC EXAM KNEE COMPLETE 4/MORE VIEWS Júnior Alvarado MD [address] [place] [id number] [place] [address] Referral ID Status Reason Start Date Expiration Date V isits Requested Visits Authorized [id number] Closed Auto-Generate d Referral 08/29/2021 09/28/2022 1 1 * Diagnostic Procedure Only (Urgent) - Closed Specialty Diagnoses / Procedures Referred By Contac t Referred To Contact XR IMAGING Diagnoses Rib pain on left side Procedures XR RIBS/CHEST 3V AP RIB/OBLS/CXR LEFT RADEX RIBS UNI W/POSTEROANT CH MINIMUM 3 VIEWS Júnior Alvarado MD [address] [place] [address] [place] [address] Referral ID Status Reason Start Date Expiration Date V isits Requested Visits Authorized [id number] Closed Auto-Generate d Referral 08/29/2021 09/28/2022 1 1 [facility]No reason for referral information availableWKettering Health [facility] Work Phone: Reason for visit Narrative* Diagnostic Procedure Only (Urgent) - Closed Specialty Diagnoses / Procedures Referred By Contac t Referred To Contact XR IMAGING Diagnoses Acute pain of right knee Procedures XR KNEE GENERAL 4V AP BOTH/PA BOTH/LAT/MERC RIGHT RADIOLOGIC EXAM KNEE COMPLETE 4/MORE VIEWS Júnior Alvarado MD [address] [place] [address] [place] [address] Referral ID Status Reason Start Date Expiration Date V isits Requested Visits Authorized [id number] Closed Auto-Generate d Referral 08/29/2021 09/28/2022 1 1 [facility] Chief Complaint and Reason for Visit Chief [...] lumber spine hypotension Reason for Visit COVID-19 tadeo johnson manifesting [...] CHF exacerbation October 18, 2024 1:48 pm Chief Complaint Admit Date CHF EXACERBATION October 18, 2024 1:48 pm Shortness of breath October 18, 2024 1:54 pm CHF EXACERBATION October 19, 2024 8:47 am CHF EXACERBATION October 19, 2024 1:47 pm Family History No Family History Records Found Relationship Condition Age at Onset Recorded Date/T [...] aunt Cerebrovascular accident (CVA) Unknown Advance Directives No Advanced Directives Records Found Advance Directive Response Recorded Date/ Time Advance Directives No March 9:54am Living Will No July 09, 2021 8:11pm Power of Echocardiograph Tech No July 09 8:11pm Advance Directive Response Recorded Date/ Time Advance Directives No March 9:54am Living Will No September 05, 2021 4 :29pm Power of Echocardiograph Tech No September 05, 2021 4:29pm Advance Directive Response Recorded Date/ Time Advance Directives No October 18 12:08pm Living Will No October 30, 2021 12:52pm Power of Echocardiograph Tech No October 30 12:52pm Advance Directive Response Recorded Date/ Time Advance Directives No October 18 11:08am Living Will No March 30, 1:56pm Power of Echocardiograph Tech No March 30, 2022 1:56pm Advance Directive Response Recorded Date/ Time Do you have a Healthcare Power of Echocardiograph Tech? No October 18, 2024 10:15am Advance Directives No October 18 12:08pm Advance Directive Response Recorded Date/ Time Do you have a Healthcare Power of Echocardiograph Tech? No October 18, 2024 3:01pm Advance Directives No October 18 12:08pm Summary [...] or prosecute any alcohol or drug abuse patient.[facility] the event this information is protected by the Federal Confidentiality of Alcohol and Drug Abuse Patient Records regulations: The Federal rules restrict any use of the information to criminally investigate or prosecute any alcohol or drug abuse patient.[facility] the event this information is protected by the Federal Confidentiality of Alcohol and Drug Abuse Patient Records regulations: The Federal rules restrict any use of the information to criminally investigate or prosecute any alcohol or drug abuse patient.[facility] the event this information is protected by the Federal Confidentiality of Alcohol and Drug Abuse Patient Records regulations: The Federal rules restrict any use of the information to criminally investigate or prosecute any alcohol or drug abuse patient.[facility] Reason for Visit (unrecogniz ed section and [...] Care Teams (unrecognized sec tion and content) Database Tester Relationship Specialty Start Date End Date Sapna Ray DO PCP - General 01/24/15 Database Tester Relationship Specialty Start Date End Date Sapna Ray DO PCP - General 01/24/15 Database Tester Relationship Specialty Start Date End Date Sapna Ray DO PCP - General 01/24/15 Database Tester Relationship Specialty Start Date End Date Sapna Ray DO PCP - General 01/24/15 Team Status: Active Member Role/Relationship Status Dates Dr. Sapna Ray DO Primary Care Provider Active Team Status: Active Member Role/Relationship Status Dates Dr. Sapna Ray DO Primary Care Provider Active Start: October 18, 2024 Dr. Satya Mendenhall , DO Emergency Provider Activ e Start: October [...] Provider Active Start: October 18, 2024 Dr. Tez Walker MD Attending Provider Active S tart: October 18, 2024 Team Status: Inactive Member Role/Relationship Status Dates Dr. Sapna Ray DO Primary Care Provider Active Start: October 18, 2024 End: October 19, 2024 Dr. Satya Mendenhall DO Emergency Provider Activ e Start: October 18, 2024 End: October 19, 2024 Dr. Darvin Posey DO Admit Provider Active Star t: October 18, 2024 End: October 19, 2024 Dr. Darvin Posey DO Attending Provider Active Start: October 18, 2024 End: October 19, 2024 Team Status: Active Member Role/Relationship Status Dates Dr. Sapna Ray DO Primary Care Provider Active Start: October 18, 2024 Dr. Satya Mendenhall DO Emergency Provider Activ e Start: October 18, 2024 Dr. Darvin Posey DO Attending Provider Active Start: October 18, 2024 Team Status: Active Member Role/Relationship Status Dates Dr. Sapna Ray , Primary Care Provider Active Start: October 19, 2024 Dr. Satya Mendenhall DO Emergency Provider Activ e Start: October 19, 2024 Dr. Darvin Posey DO Admit Provider Active Star t: October 19, 2024 Dr. Darvin Posey DO Attending Provider Active Start: October 19, 2024 Dr. Darvin Posey DO Other Provider Active Star t: October 19, 2024 Team Status: Active Member Role/Relationship Status Dates Dr. Sapna Ray DO Primary Care Provider Active Start: October 19, 2024 Dr. Satya Mendenhall DO Emergency Provider Activ e Start: October 19, 2024 Dr. Darvin Posey DO Admit Provider Active Star t: October 19, 2024 Dr. Darvin Posey DO Other Provider Active Star t: October 19, 2024 REGAN Woo Attending Provider Active S tart: October 19, 2024 Care Team (unrecognized sect ion and content) Care Team Personnel Name: RENE ZELAYA MD Member Role: Primary Care Physician Address: Address: [address] [place] [address] [address] [place], [place] [address] Care Team Related Persons Name: EFFIE VANN Name: EFFIE VANN INFORMATION SOURCE (unrecogn ized section and content) DATE CREATED AUTHOR 07/18/2024 [facility] DATE CREATED AUTHOR AUTHOR'S KRYSTYNAIZ ATION 11/12/2024 [facility] FOR RECORDS PERTAINING TO PATIENTS WHO ARE [...] BE BASED ON THE PRIMARY CLINICAL RECORDS. [facility]. provides no warranty or guarantee of the accuracy or completeness of information in this document.
[2024-12-04 23:00] LABS: Pro- Brain NATRIURETIC PEPTIDE 17585 pg/mL (<=900)
--- NOTE | 2024-12-04 23:38 | EDS_ITS ---
HPI History of Present Illness Chief Complaint: Shortness of Breath Detail of Chief Complaint: Shortness of breath, dyspnea on activity, orthopnea and swelling Informant: patient and spouse/S.O. Onset/Context/Timing Onset: Days Context: sudden Timing: Continuous and Waxes and wanes Quality: Positive for Dyspnea on exertion and Orthopnea; Negative for PND or Wheezing Current Severity: Mild Maximum Severity: Severe Worsened by: Exertion and Lying flat Relieved by: Nothing Associated Symptoms cough; Negative for rhinorrhea, post nasal drip, ear pain, fever, sore throat, subjective, chills, sweats or clear sputum Chest Pain: Positive for None Narrative Narrative: Patient was admitted to the hospital in October. Admission date was October 18. She was discharged on October 19. She received prescription for Lasix. She took her last dose of Lasix last week. She states she went to the pharmacy and got a water pill that she purchased [id number]. She does not know what the active ingredient is. Based on computer search she is taking Love theophylline and would explain her tachycardia. She states she is not urinating much if at all. Review of Dr. Posey's discharge summary indicates acute heart failure with global hypokinesis of the left ventricle. There is moderate to severe 3+ mitral valve insufficiency. Patient was placed on 1.5 L fluid restriction and 40 mg of Lasix twice a day. She also had bilateral pleural effusions. She had a thoracentesis for the fluid on the right. It was felt to be transudate. Apparently her father had a history of aggressive lung cancer. She also has diabetes, type II. Patient presents because of increased shortness of breath at rest and minimal activity. She cannot walk across the room. She states her legs are swelling. She is sleeping in a recliner. She been sleeping in a Kreiner for 1 to 2 months. She states minimal activity causes her to have significant trouble with her breathing. PE Risk Factors: Negative for Cancer, OCP + Smoking + > 35, Prior DVT or PE, Recent immobilization, Recent surgery or Recent travel Prior similar symptoms: Yes Recent Illness/Hospitalization: Yes [facility] Medical History Diabetes mellitus HLD (hyperlipidemia) Sleep apnea Anxiety Hypoxia Pneumonia due to COVID-19 virus Diabetes mellitus [place] (acute kidney injury) Multiple falls Fibromyalgia Former smoker Lumbar back pain Intertrigo Excessive body weight loss Panniculitis Abdominal panniculus, symptomatic Bursitis Fibromyalgia Vitamin deficiency Vision problems ULCERS GERD (gastroesophageal reflux disease) Osteoarthritis Headache Depression Diabetes Carpal tunnel syndrome Back problem Arthritis Seasonal allergic conjunctivitis Home Medications ?Medication ?Instructions ?Recorded ?Last Taken ?Type omeprazole 20 mg capsule,delayed 20 mg PO DAILY gerd 1 05/24/20 04/06/21 History release duloxetine 60 mg capsule,delayed 60 mg PO BID depressi on 04/07/21 Unknown History release fenofibrate micronized 67 mg 67 mg PO BID HLD 04/07/21 Unknown History capsule aspirin 81 mg tablet 81 mg PO DAILY heart health 04/19/21 Unknown History insulin lispro 100 unit/mL 20 unit (0.2 mL) subcut TID AC 04/23/21 Unknown Rx subcutaneous pen (Humalog KwikPen blood suagr 30 days #18 mL (U-100) Insulin) cholecalciferol (vitamin D3) 1,250 1,250 mcg PO QWEEK vitamin 05/22/21 10/17/24 History mcg (50,000 unit) capsule diphenhydramine HCl 25 mg capsule 50 mg PO BID PRN Itc carrie 05/22/21 Unknown History (Benadryl) ondansetron HCl 8 mg tablet 8 mg PO Q8H PRN Nausea Unknown History insulin glargine 100 unit/mL (3 50 - 75 units subcut B ID blood 10/30/21 Unknown History mL) subcutaneous pen (Lantus sugar Solostar U-100 Insulin) metformin 500 mg tablet,extended 1,000 mg PO BID diabe monica 12/07/23 Unknown History release 24 hr Lactobacillus acidophilus 0.5 mg 1 mg PO BID 10/18/24 Unknown History (100 million cell) tablet pregabalin 150 mg capsule 150 mg PO BID 10/18/24 Unkno wn History sodium chloride 0.65 % nasal spray 1 spray intranasal 4X/DAY PRN PRN 10/18/24 Unknown History aerosol (Deep Sea Nasal) allergies carvedilol 6.25 mg tablet 6.25 mg PO BID #60 tabs 10/04 09/28 Unknown Rx furosemide 40 mg tablet (Lasix) 40 mg PO DAILY #30 tab s 10/19/24 Unknown Rx lisinopril 10 mg tablet 10 mg PO DAILY #30 tabs 10/04 09/28 Unknown Rx Allergy/AdvReac Type Severity Reaction Status Date / [facility] All[facility] Rash Verified 12/04/24 20:42 Family History Mother Arthritis Hypertension Melanoma Father Arthritis Bleeding disorder Diabetes Heart disease High cholesterol Son Kidney disease H/O psychiatric care Uncle Alcoholism Liver disease Grandmother Arthritis Cancer Lung cancer Sister Epilepsy Melanoma Skin cancer Aunt CVA (cerebral vascular accident) Surgical History H/O knee surgery History of hysterectomy History of carpal tunnel surgery Social History household members: none housing: house Smoking Status: Former smoker how long ago did patient quit smoking: Quit ~ 30 years prior. alcohol intake: current alcohol intake frequency: holidays/special occasions only substance use type: does not use ROS ROS ED Constitutional Constitutional ED: Denies chills, fever(s), sweats or weight loss Eyes Eyes: Denies blurry vision ENT ENT ED: Denies ear pain or rhinorrhea Cardiovascular Cardiovascular: Reports orthopnea and racing heartbeat; Denies chest pain, palpitations or paroxysmal nocturnal dyspnea Respiratory/Chest Respiratory/Chest: Reports dyspnea, dyspnea on exertion and orthopnea; Denies cough, paroxysmal nocturnal dyspnea or sputum Gastrointestinal Gastrointestinal: Denies abdominal pain, melena, nausea or vomiting Genitourinary Genitourinary ED: Denies dysuria, hematuria or urinary frequency Musculoskeletal Musculoskeletal: Denies arthralgias or myalgias Integumentary Denies rash Neurologic Neurologic: Reports weakness Hematologic/Lymphatic Hematologic/Lymphatic: Denies easy bleeding or easy bruising EXAM Physical Exam Const Vital Signs: 12/04/24 20:40 12/04/24 21:03 12/04/24 21:09 Temperature 98.5 F Temperature Source Oral Pulse Rate 119 H Respiratory Rate 26 H Respiratory Effort Respiratory Depth Respiratory Pattern Blood Pressure 154/97 H 145/75 H Blood Pressure Mean 116 98 Pulse Ox 98 Oxygen Delivery Method Room Air Room Air 12/04/24 21:10 12/04/24 21:15 12/04/24 21:16 Temperature Temperature Source Pulse Rate 120 H Respiratory Rate 19 H Respiratory Effort Respiratory Depth Respiratory Pattern Blood Pressure 130/86 H Blood Pressure Mean 97 Pulse Ox 96 97 Oxygen Delivery Method 12/04/24 21:21 12/04/24 21:22 12/04/24 21:30 Temperature Temperature Source Pulse Rate Respiratory Rate Respiratory Effort Short of Breath Respiratory Depth Normal Respiratory Pattern Tachypnea Blood Pressure 145/82 H Blood Pressure Mean 102 Pulse Ox 94 Oxygen Delivery Method Room Air Room Air 12/04/24 21:39 12/04/24 21:45 12/04/24 22:00 Temperature Temperature Source Pulse Rate 115 H 117 H 117 H Respiratory Rate 18 22 H 22 H Respiratory Effort Respiratory Depth Respiratory Pattern Blood Pressure 143/77 H 142/84 H 152/72 H Blood Pressure Mean 99 102 95 Pulse Ox 95 95 96 Oxygen Delivery Method 12/04/24 22:15 12/04/24 22:30 12/04/24 22:45 Temperature Temperature Source Pulse Rate 116 H 115 H 117 H Respiratory Rate 23 H 22 H 18 Respiratory Effort Respiratory Depth Respiratory Pattern Blood Pressure 143/77 H 141/80 H Blood Pressure Mean 96 98 Pulse Ox 96 97 97 Oxygen Delivery Method 12/04/24 23:00 12/04/24 23:00 Temperature Temperature Source Pulse Rate 116 H 118 H Respiratory Rate 28 H 24 H Respiratory Effort Respiratory Depth Respiratory Pattern Blood Pressure 142/92 H Blood Pressure Mean 108 Pulse Ox 99 98 Oxygen Delivery Method Room Air Positive well nourished and well developed Constitutional Narrative: Patient appears ill. She has a gonzalez face. There is edema of the lower extremities. She is tachycardic and tachypneic. She is not hypoxic at rest. She desaturates to 84% with walking across the room. She is not on home oxygen. General Appearance ED: well developed and pallor HEENT atraumatic; Negative for tenderness Eyes PERRL and EOMs intact bilaterally General Eye ED: Negative for pale conjunctiva or scleral icterus Neck no lymphadenopathy, supple, no meningeal signs and No no JVD Resp No normal respiratory effort Auscultation: rales bilateral lower (There is decreased breath sounds on the left compared to the right.) Cardio regular rate, regular rhythm, S1 normal heart sound, S2 normal heart sound and no murmurs GI non-tender, non-distended and no masses Auscultation: hypoactive bowel sounds Palpation: soft Back/Spine no CVA tenderness Extremity Negative for normal to inspection Extremity Narrative: Patient has mild pitting edema of the sacrum. General Extremety ED: Yes edema General Extremity: edema Neuro oriented x3 and CN's II-XII intact bilaterally Geovany Coma Scale: document GCS findings Spontaneous Obeys Commands Oriented 15 Sensorium / Orientation: alert Psych mental status grossly normal Skin no wounds and skin turgor normal General Skin Exam: pallor; Negative for jaundice MDM MDM MDM Narrative Medical decision making narrative: Differential diagnosis is exacerbation of heart failure, pneumonia, cardiac ischemia is unlikely. Will obtain CBC to assess H&H. BMP to assess her electrolytes and renal function. BNP was obtained as well. Clinically she is in heart failure. History & Record Review Additional record(s) reviewed:: Prior inpatient record (Dr. Posey is discharge summary was reviewed and highlighted in the HPI portion of the medical record.), Prior ED visit and Prior labs Lab Data Attestation: I reviewed the patient's lab results. Lab results narrative: CBC is unremarkable. Basic metabolic panel is remarkable for an elevated BUN and creatinine compared to October 19. October 19 it was 30 and 0.86 with a BUN to creatinine ratio 35:1. Today it is 45 and 1.21 with BUN to creatinine ratio of 37 the 1. Glucose is elevated 398. CO2 and anion gap are normal. BNP is elevated at 17,585. Labs: Laboratory Results - last 24 hr 12/04/24 21:05 WBC 6.6 RBC 4.62 Hgb 12.9 Hct 41.1 MCV 89.0 MCH 27.9 MCHC 31.4 L RDW Std Deviation 45.9 H RDW Coeff of Elio 14.4 Plt Count 158 MPV 11.9 Immature Gran % (Auto) 0.600 Neut % (Auto) 74.2 H Lymph % (Auto) 17.4 L Lander % (Auto) 6.5 Eos % (Auto) 0.8 Baso % (Auto) 0.5 Absolute Neuts (auto) 4.9 Absolute Lymphs (auto) 1.15 Nucleated RBC % 0 Sodium 143 Potassium 5.1 Chloride 105 Carbon Dioxide 24.8 Anion Gap 13 BUN 45 H Creatinine 1.21 H Estim Creat Clear Calc 61.25 Est GFR (MDRD) Non-Af 54 L BUN/Creatinine Ratio 37.0 H Glucose 398 H [place] 9.3 [place] [address] H Radiography Chest X-Ray - ED: 2 View and Read by ED Physician (Limited inspiratory volume. There appears to be cephalization. There appears to be a small effusion on the right side. There may be an effusion on the left. Cardiac silhouette is somewhat obscured because of the limited respiratory volume. Heart size is normal. Osseous structures reveal no acu) Diagnostic Testing: Clinical Impression(s) from Imaging Studies Chest X-Ray 12/04/24 21:10 IMPRESSION: Small volume pleural effusions and subsegmental atelectasis. There may be some minimal edema. Reading Location: [facility] EKG Initial EKG: Attestation: I personally reviewed and interpreted this EKG as follows: Interpretation: Sinus Tachycardia (Rate is 120. HI interval is on 52 ms. QRS duration 140 ms. QT duration Morales 60 ms. There is a nonseptic intraventricular conduction delay. There is evidence of LVH by voltage criteria.) Management Discussion w/another healthcare provider: Hospitalist (Case was discussed with Dr. Bill Edouard. Full admit PCU. He will follow-up on troponins.) Treatment and Re-Evaluation :: Patient received Lasix in the emergency department. After reviewing records and realizing that troponin level was not ordered per nurse protocol this was added at 2349. Patient did not desaturate with ambulation 84%. She will require admission. Suspect her tachycardia is due to the Bromanyl theophylline she is taken as a water pill . Discharge Plan Dx/Rx/DC Orders Clinical Impression: CHF exacerbation, HLD (hyperlipidemia), Diabetes 1.5, managed as type 2, Diabetic neuropathy associated with type 2 diabetes mellitus, Pleural effusion, Hypoxia, Acute hyperglycemia, Sinus tachycardia Disposition Disposition: Acute Care [facility]
--- NOTE | 2024-12-04 23:59 | HP.PCM.HOS_ITS ---
[facility] Date of Admission: 12/05/24 Date of Service: 12/04/24 Chief Complaint: SOB, LE Edema and Hyperglycemia. HPI Narrative EMILY VANN, is a 54 F with a past medical history of essential hypertension; on lisinopril, carvedilol BID and furosemide, hyperlipidemia; on fenofibrate twice daily, former tobacco abuse, obesity (class I); with BMI of 34.8 this admission, ADELINE; noncompliant with CPAP, DM-1.5; unknown control on metformin twice daily, insulin lispro 20 units SQ 3 times daily and insulin glargine 50-75 units twice daily, diabetic neuropathy; on pregabalin twice daily, history of bilateral pneumonia, history of sciatica, history of COVID-19 long-hauler causing chronic fatigue, depression with fibromyalgia; on duloxetine twice daily, GERD; on omeprazole, history of panniculitis, history of OA; with sciatica on the Right and recent admission here from October 18, 2024 to October 19, 2024 for treatment of AE of chronic systolic CHF; reduced LVEF of ~40% in addition to moderate (3+) mitral valve insufficiency and global HK of LV with bilateral pleural effusions; s/p Right thoracentesis which was suspected to be transudative treated with IV furosemide and fluid restriction and with pending appointment from last admission with Dr. Franklin of [facility] whom she has not had the pleasure to see yet who now re-presents to [facility] ER planing of shortness of breath, lower extremity edema and hyperglycemia. Ms. Vann reports her symptoms began approximately 1 week prior to admission when she ran out of her furosemide so she went to the pharmacy and got a OTC diuretic containing bromotheophylline with patient noting tachycardia but not diuresis with patient admitting to sleeping in a recliner for the past ~2 weeks. Then on the evening of December 04, 2024 she noted she could not walk across the room with lower extremity edema so she decided to come in for further evaluation and treatment. She admits her symptoms are nearly identical to her previous admission with additional complaints of racing heartbeat, orthopnea plus new lower extremity edema and hyperglycemia. She denies associated fever, chills, changes in vision, discharge from eyes, runny nose, sore throat, ear pain, chest pain, abdominal pain, nausea, vomiting, diarrhea, constipation, dysuria, hematuria, headache or rash. In the ER she was noted to have an elevated NT pro-BNP II of 17,585 pg/mL present on admission with a corresponding CXR that revealed small volume pleural effusions and subsegmental atelectasis with suspected minimal edema in addition to ~1+ pitting edema to bilateral lower extremities up to the sacrum consistent with AE of chronic systolic CHF; reduced LVEF likely triggered by medical Noncompliance with furosemide and she was then admitted to the PCU for ongoing care for stated is expected to extend beyond 2 midnights. [facility] Medical History Diabetes mellitus HLD (hyperlipidemia) Sleep apnea Anxiety Hypoxia Pneumonia due to COVID-19 virus Diabetes mellitus [place] (acute kidney injury) Multiple falls Fibromyalgia Former smoker Lumbar back pain Intertrigo Excessive body weight loss Panniculitis Abdominal panniculus, symptomatic Bursitis Fibromyalgia Vitamin deficiency Vision problems ULCERS GERD (gastroesophageal reflux disease) Osteoarthritis Headache Depression Diabetes Carpal tunnel syndrome Back problem Arthritis Seasonal allergic conjunctivitis Home Medications ?Medication ?Instructions ?Recorded ?Last Taken ?Type omeprazole 20 mg capsule,delayed 20 mg PO DAILY gerd 1 05/24/20 12/04/24 08:21 History release duloxetine 60 mg capsule,delayed 60 mg PO BID depressi on 04/07/21 12/04/24 08:15 History release fenofibrate micronized 67 mg 67 mg PO BID HLD 04/07/21 12/04/24 08:16 History capsule aspirin 81 mg tablet 81 mg PO DAILY heart health 04/19/21 12/04/24 08:14 History insulin lispro 100 unit/mL 20 unit (0.2 mL) subcut TID AC 04/23/21 Unknown Rx subcutaneous pen (Humalog KwikPen blood suagr 30 days #18 mL (U-100) Insulin) cholecalciferol (vitamin D3) 1,250 1,250 mcg PO QWEEK vitamin 05/22/21 10/17/24 History mcg (50,000 unit) capsule diphenhydramine HCl 25 mg capsule 50 mg PO BID PRN Itc carrie 05/22/21 Unknown History (Benadryl) ondansetron HCl 8 mg tablet 8 mg PO Q8H PRN Nausea Unknown History insulin glargine 100 unit/mL (3 50 - 75 units subcut B ID blood 10/30/21 01/01/24 History mL) subcutaneous pen (Lantus sugar Solostar U-100 Insulin) metformin 500 mg tablet,extended 1,000 mg PO BID diabe monica 12/07/23 12/04/24 08:21 History release 24 hr Lactobacillus acidophilus 0.5 mg 1 mg PO BID gut healt h 10/18/24 12/04/24 08:20 History (100 million cell) tablet pregabalin 150 mg capsule 150 mg PO BID nerve pain 12/04/24 08:21 History sodium chloride 0.65 % nasal spray 1 spray intranasal 4X/DAY PRN PRN 10/18/24 Unknown History aerosol (Deep Sea Nasal) allergies carvedilol 6.25 mg tablet 6.25 mg PO BID #60 tabs 10/0412/04/24 07:14 Rx furosemide 40 mg tablet (Lasix) 40 mg PO DAILY #30 tab s 10/19/24 12/24/23 07:17 Rx lisinopril 10 mg tablet 10 mg PO DAILY #30 tabs 10/0412/04/24 08:20 Rx Allergy/AdvReac Type Severity Reaction Status Date / Time etodolac (From [facility]) Allergy Rash Verified 12/04/24 20:42 Family History Mother Arthritis Hypertension Melanoma Father Arthritis Bleeding disorder Diabetes Heart disease High cholesterol Son Kidney disease H/O psychiatric care Uncle Alcoholism Liver disease Grandmother Arthritis Cancer Lung cancer Sister Epilepsy Melanoma Skin cancer Aunt CVA (cerebral vascular accident) Surgical History H/O knee surgery History of hysterectomy History of carpal tunnel surgery Social History household members: none housing: house Smoking Status: Former smoker how long ago did patient quit smoking: Quit ~ 30 years prior. alcohol intake: current alcohol intake frequency: holidays/special occasions only substance use type: does not use ROS ROS Narrative Review of Systems: Constitutional: Patient denies fever or chills. Eyes: Patient denies change in vision or discharge from eyes. ENT: Patient denies runny nose, sore throat or ear pain. Resp: Patient admits to dyspnea on exertion but she denies cough or wheezing. CV: Patient admits to dyspnea with minimal exertion, heart racing and orthopnea but she denies chest pain as per HPI. GI: Patient denies abdominal pain, nausea, vomiting, diarrhea or constipation. : Patient denies dysuria, hematuria or urinary frequency. MSK: Patient denies arthralgias or myalgias. Skin: Patient denies rash, abscess, wounds or jaundice. Psych: Patient denies symptoms of uncontrolled depression or anxiety. Neuro: Patient denies headache, paresthesias or focal neurologic deficits. Allergy: Patient denies lip swelling, tongue swelling or urticaria. Hematology: Patient denies easy bleeding or easy possibility. Endocrinology: Patient admits to polyuria but she denies polydipsia, polyphagia or heat/cold intolerance. 14 point ROS otherwise negative except for positives noted above in HPI. Vital Signs Vital Signs Vital Signs: 12/04/24 20:40 12/04/24 21:03 12/04/24 21:09 Temperature 98.5 F Temperature Source Oral Pulse Rate 119 H Respiratory Rate 26 H Respiratory Effort Respiratory Depth Respiratory Pattern Blood Pressure 154/97 H 145/75 H Blood Pressure Mean 116 98 Pulse Ox 98 Oxygen Delivery Method Room Air Room Air 12/04/24 21:10 12/04/24 21:15 12/04/24 21:16 Temperature Temperature Source Pulse Rate 120 H Respiratory Rate 19 H Respiratory Effort Respiratory Depth Respiratory Pattern Blood Pressure 130/86 H Blood Pressure Mean 97 Pulse Ox 96 97 Oxygen Delivery Method 12/04/24 21:21 12/04/24 21:22 12/04/24 21:30 Temperature Temperature Source Pulse Rate Respiratory Rate Respiratory Effort Short of Breath Respiratory Depth Normal Respiratory Pattern Tachypnea Blood Pressure 145/82 H Blood Pressure Mean 102 Pulse Ox 94 Oxygen Delivery Method Room Air Room Air 12/04/24 21:39 12/04/24 21:45 12/04/24 22:00 Temperature Temperature Source Pulse Rate 115 H 117 H 117 H Respiratory Rate 18 22 H 22 H Respiratory Effort Respiratory Depth Respiratory Pattern Blood Pressure 143/77 H 142/84 H 152/72 H Blood Pressure Mean 99 102 95 Pulse Ox 95 95 96 Oxygen Delivery Method 12/04/24 22:15 12/04/24 22:30 12/04/24 22:45 Temperature Temperature Source Pulse Rate 116 H 115 H 117 H Respiratory Rate 23 H 22 H 18 Respiratory Effort Respiratory Depth Respiratory Pattern Blood Pressure 143/77 H 141/80 H Blood Pressure Mean 96 98 Pulse Ox 96 97 97 Oxygen Delivery Method 12/04/24 23:00 12/04/24 23:00 Temperature Temperature Source Pulse Rate 116 H 118 H Respiratory Rate 28 H 24 H Respiratory Effort Respiratory Depth Respiratory Pattern Blood Pressure 142/92 H Blood Pressure Mean 108 Pulse Ox 99 98 Oxygen Delivery Method Room Air Weight Weight: 209 lb 3.499 oz Body Mass Index (BMI) 34.8 Physical Exam Const alert and oriented x3 Constitutional Narrative: Patient appears chronically ill with 'gonzalez facies'. General Appearance: cooperative HEENT normocephalic, head/scalp atraumatic, hearing grossly normal bilaterally and moist oral mucous membranes Eyes PERRL, EOMs intact bilaterally and conjunctivae normal Neck no lymphadenopathy, supple and no JVD Resp Resp Narrative: Bibasilar rales noted. Auscultation: rales Cardio regular rate and regular rhythm GI normal to inspection, nondistended, normoactive bowel sounds, soft to palpation, non-tender and non-distended GI Narrative: Obese. Auscultation: hypoactive bowel sounds Extremity Extremity Narrative: ~1+ bilateral lower extremity edema up to the sacrum. Skin Skin Narrative: Patient has evidence of rash, abscess, wounds or jaundice. Neuro oriented x3, CN's II-XII intact bilaterally, moves all extremities and no focal motor deficits Sensorium / Orientation: awake, alert, oriented to person, oriented to place and oriented to time Speech: speech normal Psych affect normal Results Medical Records Data Attestation: I reviewed the patient's medical records Lab / Micro Data Attestation: I reviewed the patient's lab results. 12/04/24 21:05 12/04/24 21:05 Labs: Laboratory Results - last 24 hr 12/04/24 21:05: WBC 6.6, RBC 4.62, Hgb 12.9, Hct 41.1, MCV 89.0, MCH 27.9, MCHC 31.4 L, RDW Std Deviation 45.9 H, RDW Coeff of Elio 14.4, Plt Count 158, MPV 11.9, Immature Gran % (Auto) 0.600, Neut % (Auto) 74.2 H, Lymph % (Auto) 17.4 L, Tompkins % (Auto) 6.5, Eos % (Auto) 0.8, Baso % (Auto) 0.5, Absolute Neuts (auto) 4.9, Absolute Lymphs (auto) 1.15, Nucleated RBC % 0, Sodium 143, Potassium 5.1, Chloride 105, Carbon Dioxide 24.8, Anion Gap 13, BUN 45 H, Creatinine 1.21 H, Estim Creat Clear Calc 61.25, Est GFR (MDRD) Non-Af 54 L, BUN/Creatinine Ratio 37.0 H, Glucose 398 H, Calcium 9.3, [place] [address] H Imaging Radiology Impression Chest X-Ray 12/04/24 21:10 IMPRESSION: Small volume pleural effusions and subsegmental atelectasis. There may be some minimal edema. Reading Location: [facility] Assessment & Plan Assessment/Plan (1) CHF exacerbation: QUALIFIERS: Heart failure type: systolic Qualified Code(s): I 50.23 - Acute on chronic systolic (congestive) heart failure (2) Elevated troponin: (3) Medical non-compliance: (4) Generalized weakness: (5) Fatigue: QUALIFIERS: Fatigue type: unspecified Qualified Code(s): R53.83 - Other fatigue (6) Obesity (BMI 30.0-34.9): (7) Diabetic neuropathy associated with type 2 diabetes mellitus: QUALIFIERS: Diabetes mellitus complication detail: with other neurological complication Qualified Code(s): E11.49 - Type 2 diabetes mellitus with other diabetic neurological complication PLAN: Plan 1. Elevated NT pro-BNP II of 17,585 pg/mL present on admission with a corresponding CXR that revealed small volume pleural effusions and subsegmental atelectasis with suspected minimal edema in addition to ~1+ pitting edema to bilateral lower extremities up to the sacrum consistent with AE of chronic systolic CHF; reduced LVEF with mildly elevated troponin T of 35 ng/L present on admission suspected to be due to acute cardiac strain - Admit to PCU. Continue IV furosemide 60 mg IV twice daily plus give supplemental KCl and magnesium. Serialize troponin. Finally, we will consult [facility] to see this patient on rounds in the a.m. for further recommendations with help appreciated in advance. 2. Medical noncompliance with furosemide triggering #1 - Patient sternly warned not to run out of her cardiac medications, particularly her furosemide to attenuate risk of serial readmission. 3. Generalized Weakness and Fatigue due to #1 & #2 - PT/OT and Case Management consult and treat on rounds in a.m. further recommendations with help appreciated in advance. 4. Recent admission here from October 18, 2024 to October 19, 2024 for treatment of AE of chronic systolic CHF; reduced LVEF of ~40% in addition to moderate (3+) mitral valve insufficiency and global HK of LV with bilateral pleural effusions; s/p Right thoracentesis which was suspected to be transudative treated with IV furosemide and fluid restriction complicating #1 - #3 - Noted. 5. Obesity (class I); with BMI of 34.8 this admission plus ADELINE; noncompliant with CPAP adding to the burden of disease outlined from #1 - #4 - Weight loss was recommended. Check TSH. CPAP compliance was strongly encouraged. This complicates her case and may hamper recovery. 6. DM-1.5; (treated at type II) uncontrolled with Hyperglycemia of 398 mg/dL present on admission in spite of metformin twice daily, insulin lispro 20 units SQ 3 times daily and insulin glargine 50-75 units twice daily plus diabetic neuropathy; on pregabalin twice daily - ADA/cardiac diet. Hold metformin but continue insulin glargine and insulin lispro. 7. Essential hypertension; on lisinopril, carvedilol BID and furosemide - Maintain on current therapy except furosemide converted to IV as outlined in #1. 8. Hyperlipidemia; on fenofibrate twice daily - Resume fenofibrate as previous. 9. Former tobacco abuse - Noted. 10. History of bilateral pneumonia - Noted with no evidence of recurrence at this time. 11. History of sciatica with OA - Noted. Give acetaminophen as needed for pain or fever. 12. History of COVID-19 long-hauler causing chronic fatigue - Noted. 13. Depression with fibromyalgia; on duloxetine twice daily - Continue present treatment. 14. GERD; on omeprazole - Maintain PPI. 15. History of panniculitis Noted. 16. DVT prophylaxis - Enoxaparin 40 mg sq daily. Total time: Approximately (but not less than) 75 minutes. Charges/Coding Visit Charges Inpatient E&M: 34869 Init Hosp L3
[2024-12-05] VITALS (8 sets, daily range): BP systolic 116–157; BP diastolic 72–98; PULSE 101–121; RESP 17–20; TEMP 36.6–37; O2SAT 98–99; BMI 34.3
--- OUTSIDE RECORDS SUMMARY | 2024-12-05 00:31 | XMS RPT_ITS | CCD ---
Author Organization [facility] Care Team Providers Care Steelscope Operator Name Role Phone Dr. Sapna Ray Primary Care Provider Dr. Kvng Herrera Emergency Provider Dr. Fred Wilkins Admit Provider Dr. Fred Wilkins Attending Provider Dr. Fred Wilkins Other Provider Dr. Katherine Peck Attending Provider Dr. Katherine Peck Other Provider Dr. Tony Hunter Other Provider Dr. David Santillan Other Provider Valerie DRAWING OPERATOR, DRAWING OPERATOR-C Teresa Other Provider Dr. Darvin Schultz Emergency Provider Dr. Rad Shen Attending Provider Dr. Rodriguez Quinteros Attending Provider Dr. Rad Shen Referring Provider Dr. Rad Shen Admit Provider Dr. Rad Shen Other Provider Dr. Bin Gleason Other Provider [phone] Dr. Tez Walker Attending Provider Dr. Saeid [...] Provider Cory, Dr. Alejo Referring Provider Valerie DRAWING OPERATOR, DRAWING OPERATOR-C Teresa Attending Provider Cory RAMOS, Sapna Medina [...] [place]; Translations: [ETODOLAC] Drug Allergy 01-16-2015 Swelling [facility] (5 sources) Seasonal allergy; Translations: [SEASONAL ALLERGIES] Allergy to substance 01-16-2015 Itching [facility] (1 source) [facility] Drug Allergy 01-15-2024 [facility] Repository Medications Current Medications Medication Drug Class(es) [...] mg PO DAILY April 19, 2021 1:00am drop.io take 1 tablet by mouth once live y aspirin, enteric coated (ASPIRIN, ENTERIC COATED) 81 mg EC tablet Take 81 mg by mouth once daily. Active Comment on above: Take 81 mg by mouth once daily. 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 Normal [facility] Comment on above: Performed By: #### L 499.0042 #### [facility] [place], [address] pH, Body Fluid [id number] 10-24 PH, BODY FLUID 7.8 Normal Not Estab. [facility] Comment on above: Order Comment: Test( s) 305103-mE, Body Fluidwas developed and its performance characteristicsdetermined by [facility]. It has not been cleared or approvedby the Food and Drug Administration. Result Comment: The reference interval(s) and other method performance specifications have not been established for this body fluid. The test result must be integrated into the clinical context for interpretation. Performed at: [address] [id number] Ornament Maker Hand: Castro Medina MD, Phone: [phone] Performed By: #### L 501.6900, L500.2500, L503.6005, L100.0100 #### [facility] [address] [place], [address] Body Fluid Culton 10-23-2024 BFC No growth aerobically. Normal [facility] Comment on above: Performed By: #### M 100.2900, M100.2000, M100.4001, L350.1000, L200.0200 ####[facility] [address] [place], [address] Culture, Blood (WB)on 2024 CUB Blood cultures x2, f rom two different sites No growth in 5 days. Normal [facility] Comment on above: Performed By: #### L 501.6900, L500.2500, L503.6005, L100.0100 #### [facility] [address] [place], [address] Basic Metabolic Profile (BMP )on 10-20-2024 BUN Normal 4-19 [facility] Comment on above: Result Comment: Canc elled via OM: Order cancelled - Patient discharged Performed By: #### L 500.2500 #### [facility] [address] [place], [address] BUN/CRE Normal - [facility] Comment on above: Result Comment: Canc elled via OM: Order cancelled - Patient discharged Performed By: #### L 500.2500 #### [facility] [address] [place], [address] Calcium Normal 7.6-11.0 [facility] Comment on above: Result Comment: Canc elled via OM: Order cancelled - Patient discharged Performed By: #### L 500.2500 #### [facility] [address] [place], [address] CL Normal 98-108 [facility] Comment on above: Result Comment: Canc elled via OM: Order cancelled - Patient discharged Performed By: #### L 500.2500 #### [facility] [address] [place], [address] CO2 Normal 21.0-32.0 [facility] Comment on above: Result Comment: Canc elled via OM: Order cancelled - Patient discharged Performed By: #### L 500.2500 #### [facility] [address] [place], [address] CREAT,SERUM Normal 0.70-1.20 [facility] Comment on above: Result Comment: Canc elled via OM: Order cancelled - Patient discharged Performed By: #### L 500.2500 #### [facility] [address] [place], [address] eGFR Normal >60 [facility] Comment on above: Result Comment: Canc elled via OM: Order cancelled - Patient discharged Performed By: #### L 500.2500 #### [facility] [address] [place], [address] GAP Normal 5-15 [facility] Comment on above: Result Comment: Canc elled via OM: Order cancelled - Patient discharged Performed By: #### L 500.2500 #### [facility] [address] [place], [address] GLU Normal 70-99 [facility] Comment on above: Result Comment: Canc elled via OM: Order cancelled - Patient discharged Performed By: #### L 500.2500 #### [facility] [address] [place], [address] Potassium Normal 3.3-5.1 [facility] Comment on above: Result Comment: Canc elled via OM: Order cancelled - Patient discharged Performed By: #### L 500.2500 #### [facility] [address] [place], [address] Basic Metabolic Profile (BMP) Normal 133-145 [facility] Comment on above: Result Comment: Canc elled via OM: Order cancelled - Patient discharged Performed By: #### L 500.2500 #### [facility] [address] [place], [address] Body Fluid Cell Count+Diffon 10-20-2024 PATH COMM/BF Reviewed Normal [facility] Comment on above: Order Comment: The r [...] #### M 100.2900, M100.2000, M100.4001, L350.1000, L200.0200 ####[facility] [address] [place], [address] Absolute lymphocyte countOrd ered By: Darvin Posey on 10-19-2024 Lymphocytes Auto (Unsp spec) [#/Vol] 1.73 10*3/uL 0.83-4.51 [facility] Absolute neutrophil countOrd ered By: Darvin Posey on 10-19-2024 Neutrophils (Bld) [#/Vol] 4.0 10*3/uL 2.0-7.7 [facility] Anion gap in Serum or Plasma Ordered By: Darvin Posey on 10-19-2024 Anion gap [Moles/Vol] 11 mmol/L 5-15 [facility] Automated lymphocyte count a s percentage of total leukocytesOrdered By: Darvin Posey on 10-19-2024 Lymphocytes/100 WBC Auto (Unsp spec) 26.5 % 19-41 [facility] BUN/creatinine ratioOrdered By: Darvin Posey on 10-19-2024 Urea nitrogen/Creatinine [Mass ratio] 35.2 mg/mg High 10-20 [facility] Basophil percentageOrdered B y: Darvin Posey on 10-19-2024 Basophils/100 WBC (Bld) 0.5 % 0-1 [facility] Bedside Glucoseon 10-19-2024 FINGERSTICK GLU 154 mg/dL High 74-106 [facility] Comment on above: Result Comment: LUCIO GEMENT OF PATIENT CARE PER NURSING PROTOCOL Performed By: #### L 501.080 ####[facility] [address] [facility] [address] FINGERSTICK GLU 181 mg/dL High [address] [place] [address] Comment on above: Result Comment: LUCIO GEMENT OF PATIENT CARE PER NURSING PROTOCOL Performed By: #### L 501.6900, L500.2500, L503.6005, L100.0100 #### [facility] [address] [place], [address] FINGERSTICK GLU 275 mg/dL High [address] [place] [address] Comment on above: Result Comment: LUCOI GEMENT OF PATIENT CARE PER NURSING PROTOCOL Performed By: #### L 501.6900, L500.2500, L503.6005, L100.0100 #### [facility] [address] [place], [address] Bilirubin, totalOrdered By: Darvin Posey on 10-19-2024 Bilirubin [Mass/Vol] 0.29 mg/dL 0.00-1.30 [facility] Body fluid appearance (nomin al result)Ordered By: Darvin Posey on 10-19-2024 Appearance (Body fld) CLEAR [facility] Body fluid color determinati onOrdered By: Darvin Posey on 10-19-2024 Color (Body fld) YELLOW [facility] Body fluid lactate dehydroge nase measurement (enzymatic activity/volume) by pyruvateOrdered By: Darvin Posey on 10-19-2024 LDH Pyruvate to lactate reaction (Body fld) [Catalytic activity/Vol] 82 Units/L Not Establ. [facility] Body fluid leukocytes count (number/volume)Ordered By: Darvin Posey on 10-19-2024 WBC (Body fld) [#/Vol] 0.150 10*3/uL [facility] Body fluid lymphocytes/100 l eukocytesOrdered By: Darvin Posey on 10-19-2024 Lymphocytes/100 WBC (Body fld) 45 % [facility] Body fluid macrophage countO rdered By: Darvin Posey on 10-19-2024 Macrophages (Body fld) [#/Vol] 24 % [facility] Body fluid mesothelial cell percentageOrdered By: Darvin Posey on 10-19-2024 Mesothelial cells/100 WBC (Body fld) 10 % [facility] Body fluid mononuclear cell percentageOrdered By: Darvin Posey on 10-19-2024 Mononuclear cells/100 WBC (Body fld) 88.7 % [facility] Body fluid other cell count as percentage of leukocytesOrdered By: Darvin Posey on 10-19-2024 Other cells/100 WBC (Body fld) 1 % [facility] Comment on above: EOSINOPHIL Body fluid protein measureme nt (mass/volume)Ordered By: Darvin Posey on 10-19-2024 Protein (Body fld) [Mass/Vol] 1.5 g/dL Not Establ. [facility] Body fluid segmented neutrop hils count (number/volume)Ordered By: Darvin Posey on 10-19-2024 Segmented neutrophils (Body fld) [#/Vol] 8 % [facility] Body fluid total cell countO rdered By: Darvin Posey on 10-19-2024 Cells Counted Total (Body fld) [#] 0.188 10^3/ul High 0.000-0.00 0 [facility] Comment on above: This is the Total Nu mber of Nucleated Cell Types in the Body Fluid. CBC W/Diff, Automatedon 07-04 11-2024 Absolute Lymph 1.73 X10 3/uL Normal 0.83-4.51 [facility] Comment on above: Performed By: #### L 001.0705, L501.9985, L100.0100, L501.9520, L504.2610, L500.4050 ####[facility] [address] [place], [address] Absolute Neut 4.0 X10 3/uL Normal 2.0-7.7 [facility] Comment on above: Performed By: #### L 001.0705, L501.9985, L100.0100, L501.9520, L504.2610, L500.4050 ####[facility] [address] [place], [address] Basophils/100 WBC (Bld) 0.5 % Normal 0-1 [facility] Comment on above: Performed By: #### L 001.0705, L501.9985, L100.0100, L501.9520, L504.2610, L500.4050 ####[facility] [address] [place], [address] Eosinophils/100 WBC (Bld) 2.0 % Normal 0-5 [facility] Comment on above: Performed By: #### L 001.0705, L501.9985, L100.0100, L501.9520, L504.2610, L500.4050 ####[facility] [address] [place], [address] Erythrocyte distribution width (RBC) [Ratio] 14.5 % Normal 11.6-14.6 [facility] Comment on above: Performed By: #### L 001.0705, L501.9985, L100.0100, L501.9520, L504.2610, L500.4050 ####[facility] [address] [place], [address] Hematocrit (Bld) [Volume fraction] 33.1 % Low 37-47 [facility] Comment on above: Performed By: #### L 001.0705, L501.9985, L100.0100, L501.9520, L504.2610, L500.4050 ####[facility] [address] [place], [address] Hemoglobin (Bld) [Mass/Vol] 11.0 g/dL Low 12.0-15.0 [facility] Comment on above: Performed By: #### L 001.0705, L501.9985, L100.0100, L501.9520, L504.2610, L500.4050 ####[facility] [address] [place], [address] IG% 1.700 High 0.0-0.9 [facility] Comment on above: Result Comment: IG% - Immature Granulocytes (promyelocytes, myelocytes and metamyelocytes) > 1% indicates that a LEFT SHIFT is Present. Performed By: #### L 001.0705, L501.9985, L100.0100, L501.9520, L504.2610, L500.4050 ####[facility] [address] [place], [address] Lymphocytes/100 WBC (Bld) 26.5 % Normal 19-41 [facility] Comment on above: Performed By: #### L 001.0705, L501.9985, L100.0100, L501.9520, L504.2610, L500.4050 ####[facility] [address] [place], [address] MCH (RBC) [Entitic mass] 29.3 pg Normal 27.0-32.0 [facility] Comment on above: Performed By: #### L 001.0705, L501.9985, L100.0100, L501.9520, L504.2610, L500.4050 ####[facility] [address] [place], [address] MCHC (RBC) [Mass/Vol] 33.2 g/dL Normal 32-36 [facility] Comment on above: Performed By: #### L 001.0705, L501.9985, L100.0100, L501.9520, L504.2610, L500.4050 ####[facility] [address] [place], [address] MCV (RBC) [Entitic vol] 88.3 fL Normal 81-99 [facility] Comment on above: Performed By: #### L 001.0705, L501.9985, L100.0100, L501.9520, L504.2610, L500.4050 ####[facility] [address] [place], [address] Monocytes/100 WBC (Bld) 7.7 % Normal 0-10 [facility] Comment on above: Performed By: #### L 001.0705, L501.9985, L100.0100, L501.9520, L504.2610, L500.4050 ####[facility] [address] [place], [address] Neutrophils/100 WBC (Bld) 61.6 % Normal 47-70 [facility] Comment on above: Performed By: #### L 001.0705, L501.9985, L100.0100, L501.9520, L504.2610, L500.4050 ####[facility] [address] [place], [address] Nucleated RBC (Bld) [#/Vol] 0 10*3/uL Normal 0-5 [facility] Comment on above: Performed By: #### L 001.0705, L501.9985, L100.0100, L501.9520, L504.2610, L500.4050 ####[facility] [address] [place], [address] Platelet mean volume (Bld) [Entitic vol] 10.0 fL Normal 6.2-12.0 [facility] Comment on above: Performed By: #### L 001.0705, L501.9985, L100.0100, L501.9520, L504.2610, L500.4050 ####[facility] [address] [place], [address] Platelets (Bld) [#/Vol] 199 10*3/uL Normal 150-450 [facility] Comment on above: Performed By: #### L 001.0705, L501.9985, L100.0100, L501.9520, L504.2610, L500.4050 ####[facility] [address] [place], [address] RBC (Bld) [#/Vol] 3.75 10*6/uL Low 4.2-5.4 [facility] Comment on above: Performed By: #### L 001.0705, L501.9985, L100.0100, L501.9520, L504.2610, L500.4050 ####[facility] [address] [place], [address] RDW SD 45.1 fl High 35.1-43.9 [facility] Comment on above: Performed By: #### L 001.0705, L501.9985, L100.0100, L501.9520, L504.2610, L500.4050 ####[facility] [address] [place], [address] WBC (Bld) [#/Vol] 6.5 10*3/uL Normal 4.4-11.0 [facility] Comment on above: Performed By: #### L 001.0705, L501.9985, L100.0100, L501.9520, L504.2610, L500.4050 ####[facility] [address] [place], [address] Carbon dioxide, total [Moles /volume] in Central venous bloodOrdered By: Darvin Posey on 10-19-2024 CO2 [Moles/Vol] 22.2 mmol/L 21.0-32.0 [facility] Chest Insp/Exp 2 Viewon 10-04 Chest Insp/Exp 2 View [facility] Imaging Services [address] [place], [place] [address] Chest Insp/Exp 2 View MR#: [id number] Acct: [id number] Name: MARIA ISABEL VANN Rep #: [id number] : 1970 F 54 From: Fred Herrera MD PCP: Dr. Sapna Ray DO Status: ADM IN Study: Chest Insp/Exp 2 View Date of Exam: 10/19/24 Exam# [id number] Ordering Dr: Carlos Pimentel EXAM: XR Chest, [...] effusions. 3. Pulmonary venous congestion. Reading [facility] CC: Dr. Carlos Pimentel MD; Dr. Sapna Ray DO Bench Assembler Operator: Signed Normal [facility] Chloride assayOrdered By: Khanh Posey on 10-19-2024 Chloride [Moles/Vol] 103 mmol/L 98-108 [facility] Comprehensive Metabolic Prof ilon 10-19-2024 Albumin [Mass/Vol] 3.3 g/dL Low 3.5-5.0 [facility] Comment on above: Performed By: #### L 001.0705, L501.9985, L100.0100, L501.9520, L504.2610, L500.4050 ####[facility] [address] [place], [address] ALK PHOS 80 U/L Normal 35-104 [facility] Comment on above: Performed By: #### L 001.0705, L501.9985, L100.0100, L501.9520, L504.2610, L500.4050 ####[facility] [address] [place], [address] ALT [Catalytic activity/Vol] 28 U/L Normal <=34 [facility] Comment on above: Performed By: #### L 001.0705, L501.9985, L100.0100, L501.9520, L504.2610, L500.4050 ####[facility] [address] [place], [address] AST [Catalytic activity/Vol] 36 U/L High <=31 [facility] Comment on above: Performed By: #### L 001.0705, L501.9985, L100.0100, L501.9520, L504.2610, L500.4050 ####[facility] [address] [place], [address] Bilirubin [Mass/Vol] 0.29 mg/dL Normal 0.00-1.30 [facility] Comment on above: Performed By: #### L 001.0705, L501.9985, L100.0100, L501.9520, L504.2610, L500.4050 ####[facility] [address] [place], [address] BUN/CRE 35.2 RATIO High 10-20 [facility] Comment on above: Performed By: #### L 001.0705, L501.9985, L100.0100, L501.9520, L504.2610, L500.4050 ####[facility] [address] [place], [address] Calcium [Mass/Vol] 9.0 mg/dL Normal 7.6-11.0 [facility] Comment on above: Performed By: #### L 001.0705, L501.9985, L100.0100, L501.9520, L504.2610, L500.4050 ####[facility] [address] [place], [address] Chloride [Moles/Vol] 103 mmol/L Normal 98-108 [facility] Comment on above: Performed By: #### L 001.0705, L501.9985, L100.0100, L501.9520, L504.2610, L500.4050 ####[facility] [address] [place], [address] CO2 [Moles/Vol] 22.2 mmol/L Normal 21.0-32.0 [facility] Comment on above: Performed By: #### L 001.0705, L501.9985, L100.0100, L501.9520, L504.2610, L500.4050 ####[facility] [address] [place], [address] Creatinine [Mass/Vol] 0.86 mg/dL Normal 0.70-1.20 [facility] Comment on above: Performed By: #### L 001.0705, L501.9985, L100.0100, L501.9520, L504.2610, L500.4050 ####[facility] [address] [place], [address] ECRCL 83.55 ml/min Normal 50-250 [facility] Comment on above: Performed By: #### L 001.0705, L501.9985, L100.0100, L501.9520, L504.2610, L500.4050 ####[facility] [address] [place], [address] GAP 11 Normal 5-15 [facility] Comment on above: Performed By: #### L 001.0705, L501.9985, L100.0100, L501.9520, L504.2610, L500.4050 ####[facility] [address] [place], [address] GFR/1.73 sq M.predicted among non-blacks MDRD (S/P/Bld) [Vol rate/Area] 81 mL/min/{1.73_m2} Normal >60 [facility] Comment on above: Result Comment: mL/m in/1.73m2 CKD-EPI Creatinine Equation (2020) Performed By: #### L 001.0705, L501.9985, L100.0100, L501.9520, L504.2610, L500.4050 ####[facility] [address] [place], [address] Glucose [Mass/Vol] 299 mg/dL High 70-99 [facility] Comment on above: Performed By: #### L 001.0705, L501.9985, L100.0100, L501.9520, L504.2610, L500.4050 ####[facility] [address] [place], [address] Potassium [Moles/Vol] 5.0 mmol/L Normal 3.3-5.1 [facility] Comment on above: Performed By: #### L 001.0705, L501.9985, L100.0100, L501.9520, L504.2610, L500.4050 ####[facility] [address] [place], [address] Sodium [Moles/Vol] 136 mmol/L Normal 133-145 [facility] Comment on above: Performed By: #### L 001.0705, L501.9985, L100.0100, L501.9520, L504.2610, L500.4050 ####[facility] [address] [place], [address] Urea nitrogen [Mass/Vol] 30 mg/dL High 4-19 [facility] Comment on above: Performed By: #### L 001.0705, L501.9985, L100.0100, L501.9520, L504.2610, L500.4050 ####[facility] [address] [place], [address] Cytology, Body Fluid / CSFon 10-19-2024 CYTOLOGY,BF/CSF SEE PATHOLOGY REPORT Normal [facility] Comment on above: Result Comment: Spec imen submitted to Anatomical Pathology Department for testing. Performed By: #### L 499.0042 #### [facility] [address] [place], [address] Electrocardiogram reportOrde red By: Rahat Frankiln on 10-19-2024 EKG study [facility] Cardiovascular Services [address] [place] [address] 12 Lead EKG 10/18/24 1008 MR#: [id number] Acct: [id number] Name: MARIA ISABEL VANN Rep #:[id number] : 1970 54 From: Rahat sharp MD Attending Dr: Dr. Darvin Posey, DO Status: ADM IN Ordering Dr: Satya Mendenhall ate: 10/18/24 Location: [facility] Sex: F C Admitted: 10/18/24 Test Reason [...] undetermined Abnormal ECG Confirmed by Rahat Franklin ([id number]), editor in chief newspaper [employer] ([id number]) on 10/19/2024 11:24:53 AM Referred By: Confirmed By: Rahat Franklin 10/19/24 1124 Date _ Rahat Franklin MD CC: Dr. Satya Mendenhall, DO; Dr. Darvin Posey, DO; Dr. Sapna Ray DO ~ Signed [facility] Other Phone: Eosinophil percentageOrdered By: Darvin Posey on 10-19-2024 Eosinophils/100 WBC (Bld) 2.0 % 0-5 [facility] Erythrocyte distribution wid th ratioOrdered By: Darvin Posey on 10-19-2024 Erythrocyte distribution width (RBC) [Ratio] 14.5 % 11.6-14.6 [facility] Erythrocyte distribution wid th standard deviationOrdered By: Darvin Posey on 10-19-2024 Erythrocyte distribution width (RBC) [Ratio] 45.1 fl High 35.1-43.9 [facility] Glomerular filtration rate ( GFR) estimation/1.73 sq m using serum, plasma, or whole bOrdered By: Darvin Posey on 10-19-2024 GFR/1.73 sq M.predicted among non-blacks MDRD (S/P/Bld) [Vol rate/Area] 81 mL/min/{1.73_m2} >60 [facility] Comment on above: mL/min/1.73m2 CKD-EP I Creatinine Equation (2020) [facility] deOrdered By: Darvin Posey on 10-19-2024 Glucose [Mass/Vol] 154 mg/dL High 74-106 [facility] Comment on above: MANAGEMENT OF PATIEN T CARE PER NURSING PROTOCOL Glucose, Body Fluidon 2024 GLUC, BODY FLD 248 mg/dL Normal Not Establ. [facility] Comment on above: Performed By: #### L 501.6900, L500.2500, L503.6005, L100.0100 #### [facility] [address] [place], [address] Gram Stainon 10-19-2024 GS Centrifuged Specimen ? Culture performed on centrifuged specimen Gram Stain No organisms seen No cells seen Normal [facility] Comment on above: Performed By: #### M 100.2900, M100.2000, M100.4001, L350.1000, L200.0200 ####[facility] [address] [place], [address] Gram stainOrdered By: Darvin xiong on 10-19-2024 Microscopic observation Gram stain Nom (Unsp spec) [facility] Hematocrit Auto (Bld) [Volum e fraction]Ordered By: Darvin Posey on 10-19-2024 Hematocrit (Bld) [Volume fraction] 33.1 % Low 37-47 [facility] Hemoglobin A1con 10-19-2024 HbA1c (Bld) [Mass fraction] 12.3 % High <=5.6 [facility] Comment on above: Result Comment: Norm al < 5.7 % Prediabetic 5.7 - 6.4 % Diabetic >or= 6.5 % Please note range changes. Performed By: #### L 001.0705, L501.9985, L100.0100, L501.9520, L504.2610, L500.4050 ####[facility] [address] [place], [address] Hemoglobin A1c percentageOrd ered By: Darvin Posey on 10-19-2024 HbA1c (Bld) [Mass fraction] 12.3 % High <5.7 [facility] Comment on above: Normal < 5.7 % Predi abetic 5.7 - 6.4 % Diabetic >or= 6.5 % Please note range changes. Hemoglobin measurementOrdere d By: Davrin Posey on 10-19-2024 Hemoglobin (Bld) [Mass/Vol] 11.0 g/dL Low 12.0-15.0 [facility] Immature granulocytes/100 WB C Auto (Bld)Ordered By: Darvin Posey on 10-19-2024 Immature granulocytes/100 WBC (Bld) 1.700 % High 0.0-0.9 [facility] Comment on above: IG% - Immature Granu locytes (promyelocytes, myelocytes and metamyelocytes) > 1% indicates that a LEFT SHIFT is Present. LDHon 10-19-2024 LDH 221 U/L Normal 84-246 [facility] Comment on above: Performed By: #### L 001.0705, L501.9985, L100.0100, L501.9520, L504.2610, L500.4050 ####[facility] [address] [place], [address] LDH,Body Fluidon 10-19-2024 LDH,BF 82 Units/L Normal Not Establ. [facility] Comment on above: Performed By: #### L 501.6900, L500.2500, L503.6005, L100.0100 #### [facility] [address] [place], [address] Laboratory - Chemistry and C hemistry - challengeOrdered By: Darvin Posey on 10-19-2024 AST [Catalytic activity/Vol] 36 U/L High <32 [facility] Lactate dehydrogenase (LDH) measurementOrdered By: Darvin Posey on 10-19-2024 LDH [Catalytic activity/Vol] 221 U/L 84-246 [facility] MCV (mean corpuscular volume ) determinationOrdered By: Darvin Posey on 10-19-2024 MCV (RBC) [Entitic vol] 88.3 fL 81-99 [facility] Mean corpuscular hemoglobin (MCH) determinationOrdered By: Darvin Posey on 10-19-2024 MCH (RBC) [Entitic mass] 29.3 pg 27.0-32.0 [facility] Mean corpuscular hemoglobin concentration (MCHC) determinationOrdered By: Darvin Posey on 10-19-2024 MCHC (RBC) [Mass/Vol] 33.2 g/dL 32-36 [facility] Mean platelet volume determi nationOrdered By: Darvin Posey on 10-19-2024 Platelet mean volume (Bld) [Entitic vol] 10.0 fL 6.2-12.0 [facility] Monocyte detectionOrdered By : Darvin Posey on 10-19-2024 Monocytes/100 WBC (Bld) 12 % [facility] Monocyte percentageOrdered B y: Darvin Posey on 10-19-2024 Monocytes/100 WBC (Bld) 7.7 % 0-10 [facility] Neutrophil percentageOrdered By: Darvin Posey on 10-19-2024 Neutrophils/100 WBC (Bld) 61.6 % 47-70 [facility] No Panel InformationOrdered By: Darvin Posey on 10-19-2024 Body Fluid Comment 2 SEE COMMENT [facility] Body Fluid RBC 605 /mm3 [facility] Nucleated red blood cell per centageOrdered By: Darvin Posey on 10-19-2024 Nucleated RBC/100 WBC (Bld) [Ratio] 0 % 0-5 [facility] Operative Reporton Operative Report [facility] Medical Records Department [address] [place] [address] Operative Report 10/19/24 1347 MR#: [id number] Acct: [id number] Name: MARIA ISABEL VANN Rep #: [id number] : 1970 54 From: Lyndsey SPEARS PCP: Dr. Sapna Ray, DO Status:ADM IN Location: [place] [address] Problems Associated Problem List Diagnoses (1) Pleural effusion: Multi Select Codes Radiology Radiology US Procedures: 03363 Thoracentesis Operative Report (Standard) Operative Information Date of Procedure: 10/19/24 Pre-Operative Diagnosis: Pleural effusion Post-Operative Diagnosis: Pleural effusion Surgery/Procedure Performed: Ultrasound-guided thoracentesis photo tube assembler: No Type of Anesthesia: Local Procedure Start [...] local anesthesia. Under ultrasound guidance, a 5- Kenyan thoracentesis needle/catheter system was advanced into the [...] 10/19/24 1353 Cosigner Signature (if applicable): CC: DRAWING OPERATORLizbeth Armstrong; Dr. Sapna Ray DO Signed Normal [facility] Pathologist interpretation o f Body fluid testsOrdered By: Darvin Posey on 10-19-2024 Pathologist interpretation (Body fld) [Interp] May follow [facility] Platelet countOrdered By: Khanh Posey on 10-19-2024 Platelets (Bld) [#/Vol] 199 10*3/uL 150-450 [facility] Potassium measurement (mass/ volume)Ordered By: Darvin Posey on 10-19-2024 Potassium (Unsp spec) [Mass/Vol] 5.0 mmol/L 3.3-5.1 [facility] Protein, Body Fluidon 2024 Protein [Mass/Vol] 1.5 g/dL Normal Not Establ. [facility] Comment on above: Performed By: #### L 501.6900, L500.2500, L503.6005, L100.0100 #### [facility] [address] [place], [address] Protein, Totalon 10-19-2024 Albumin/Globulin [Mass ratio] 1.2 {ratio} Normal 0.9-2.4 [facility] Comment on above: Performed By: #### L 001.0705, L501.9985, L100.0100, L501.9520, L504.2610, L500.4050 ####[facility] [address] [place], [address] Globulin (S) [Mass/Vol] 2.9 g/dL Normal 2.2-4.2 [facility] Comment on above: Performed By: #### L 001.0705, L501.9985, L100.0100, L501.9520, L504.2610, L500.4050 ####[facility] [address] [place], [address] T PROT 6.2 g/dL Normal 5.9-8.4 [facility] Comment on above: Performed By: #### L 001.0705, L501.9985, L100.0100, L501.9520, L504.2610, L500.4050 ####[facility] [address] [place], [address] RBC Auto (Bld) [#/Vol]Ordere d By: Darvin Posey on 10-19-2024 RBC (Bld) [#/Vol] 3.75 10*6/uL Low 4.2-5.4 [facility] Serum creatinine measurement (mass/volume)Ordered By: Darvin Posey on 10-19-2024 Creatinine [Mass/Vol] 0.86 mg/dL 0.70-1.20 [facility] Serum globulin measurementOr dered By: Darvin Posey on 10-19-2024 Globulin (S) [Mass/Vol] 2.9 g/dL 2.2-4.2 [facility] Serum glucose measurement (m ass/volume)Ordered By: Darvin Posey on 10-19-2024 Glucose [Mass/Vol] 299 mg/dL High 70-99 [facility] Serum or plasma alanine gonzalez otransferase (ALT) measurementOrdered By: Darvin Posey on 10-19-2024 ALT [Catalytic activity/Vol] 28 U/L <35 [facility] Serum or plasma albumin cherelle urement (mass/volume)Ordered By: Darvin Posey on 10-19-2024 Albumin [Mass/Vol] 3.3 g/dL Low 3.5-5.0 [facility] Serum or plasma albumin/glob ulin mass ratioOrdered By: Darvin Posey on 10-19-2024 Albumin/Globulin [Mass ratio] 1.2 {ratio} 0.9-2.4 [facility] Serum or plasma alkaline caryl sphatase measurementOrdered By: Darvin Posey on 10-19-2024 ALP [Catalytic activity/Vol] 80 U/L 35-104 [facility] Serum or plasma calcium cherelle urement (mass/volume)Ordered By: Darvin Posey on 10-19-2024 Calcium [Mass/Vol] 9.0 mg/dL 7.6-11.0 [facility] Serum or plasma urea nitroge n measurement (mass/volume)Ordered By: Darvin Posey on 10-19-2024 Urea nitrogen [Mass/Vol] 30 mg/dL High 4-19 [facility] Sodium levelOrdered By: Darvin Posey on 10-19-2024 Sodium [Moles/Vol] 136 mmol/L 133-145 [facility] Special Stain Group IIon Special Stain Group II Patient Age/Sex Location Account Attending Physician MARIA ISABEL VANN 54/F [facility] [id number] Dr. Darvin Posey DO Specimen: [id number] Received: 10/19/24 Status: NENA Radha Num: [id number] Spec Type: Fluid Subm Dr: Dr. Darvin [...] for cytology and cell block preparation. CPT: 70306,10291 Signed (signature on file) Dr. Pippa Arboleda MD 10/21/24 1437 Normal [facility] Comment on above: Performed By: #### L 501.6900, L500.2500, L503.6005, L100.0100 #### [facility] [address] [place], [place], [address] Specimen source identificati on of body fluidOrdered By: Darvin Posey on 10-19-2024 Specimen source Nom (Body fld) PLEURAL FLUID [facility] TSH DL <= 0.005 mIU/L QnOrde red By: Darvin Posey on 10-19-2024 TSH Qn 1.130 uIU/mL 0.300-4.20 0 [facility] Thyroid Stim Hormone (TSH)on 10-19-2024 TSH 1.130 uIU/mL Normal 0.300-4.20 0 [facility] Comment on above: Performed By: #### L 001.0705, L501.9985, L100.0100, L501.9520, L504.2610, L500.4050 ####[facility] [address] [place], [place], [address] Total proteinOrdered By: Neetu Posey on 10-19-2024 Protein [Mass/Vol] 6.2 g/dL 5.9-8.4 [facility] White blood cell (WBC) count Ordered By: Darvin Posey on 10-19-2024 WBC (Bld) [#/Vol] 6.5 10*3/uL 4.4-11.0 [facility] 12 Lead EKGon 10-18-2024 12 Lead EKG [facility] Cardiovascular Services [address] [place] [address] 12 Lead EKG 10/18/24 1008 MR#: [id number] Acct: [id number] Name: MARIA ISABEL VANN Rep #: [id number] : 1970 54 From: Rahat Franklin MD Attending Dr: Dr. Darvin Posey DO Status: ADM IN Ordering Dr: Satya Mendenhall DO Date: 5 Location: [facility] Sex: F C Admitted: 10/18/24 Test Reason [...] undetermined Abnormal ECG Confirmed by Rahat Franklin ([id number]), editor in chief newspaper [employer] ([id number]) on 10/19/2024 11:24:53 AM Referred By: Confirmed By: Rahat Franklin 10/19/24 1124 Date Rahat Franklin MD CC: Dr. Satya Mendenhall DO; Dr. Darvin Posey DO; Dr. Sapna Ray DO Signed Normal [facility] Absolute lymphocyte countOrd ered By: Satya Mendenhall on 10-18-2024 Lymphocytes Auto (Unsp spec) [#/Vol] 1.63 10*3/uL 0.83-4.51 [facility] Absolute neutrophil countOrd ered By: Satya Mendenhall on 10-18-2024 Neutrophils (Bld) [#/Vol] 3.3 10*3/uL 2.0-7.7 [facility] Anion gap in Serum or Plasma Ordered By: Satya Mendenhall on 10-18-2024 Anion gap [Moles/Vol] 12 mmol/L 08-18 [facility] Automated lymphocyte count a s percentage of total leukocytesOrdered By: Satya Mendenhall on 10-18-2024 Lymphocytes/100 WBC Auto (Unsp spec) 28.6 % [facility] BUN/creatinine ratioOrdered By: Satya [facility] on 10-18-2024 Urea nitrogen/Creatinine [Mass ratio] 36.8 mg/mg High 01-23 [facility] Basic Metabolic Profile (BMP )on 10-18-2024 BUN/CRE 36.8 RATIO High 01-23 [facility] Comment on above: Performed By: #### L 100.0100, L300.8000, L500.2500 ####[facility] [address] [place], [address] Calcium [Mass/Vol] 8.7 mg/dL Normal 7.6-11.0 [facility] Comment on above: Performed By: #### L 100.0100, L300.8000, L500.2500 ####[facility] [address] [place], [address] Chloride [Moles/Vol] 102 mmol/L Normal 98-108 [facility] Comment on above: Performed By: #### L 100.0100, L300.8000, L500.2500 ####[facility] [address] [place], [address] CO2 [Moles/Vol] 21.3 mmol/L Normal 21.0-32.0 [facility] Comment on above: Performed By: #### L 100.0100, L300.8000, L500.2500 ####[facility] [address] [place], [address] Creatinine [Mass/Vol] 1.01 mg/dL Normal 0.70-1.20 [facility] Comment on above: Performed By: #### L 100.0100, L300.8000, L500.2500 ####[facility] [address] [place], [address] ECRCL 71.13 ml/min Normal 50-250 [facility] Comment on above: Performed By: #### L 100.0100, L300.8000, L500.2500 ####[facility] [address] [place], [address] GAP 12 Normal 5-15 [facility] Comment on above: Performed By: #### L 100.0100, L300.8000, L500.2500 ####[facility] [address] [place], [address] GFR/1.73 sq M.predicted among non-blacks MDRD (S/P/Bld) [Vol rate/Area] 67 mL/min/{1.73_m2} Normal >60 [facility] Comment on above: Result Comment: mL/m in/1.73m2 CKD-EPI Creatinine Equation (2020) Performed By: #### L 100.0100, L300.8000, L500.2500 ####[facility] [address] [place], [address] Glucose [Mass/Vol] 412 mg/dL High 70-99 [facility] Comment on above: Performed By: #### L 100.0100, L300.8000, L500.2500 ####[facility] [address] [place], [address] Potassium [Moles/Vol] 5.3 mmol/L High 3.3-5.1 [facility] Comment on above: Performed By: #### L 100.0100, L300.8000, L500.2500 ####[facility] [address] [place], [address] Sodium [Moles/Vol] 135 mmol/L Normal 133-145 [facility] Comment on above: Performed By: #### L 100.0100, L300.8000, L500.2500 ####[facility] [address] [place], [address] Urea nitrogen [Mass/Vol] 37 mg/dL High 4-19 [facility] Comment on above: Performed By: #### L 100.0100, L300.8000, L500.2500 ####[facility] [address] [place], [address] Basophil percentageOrdered B y: Satya Mendenhall on 10-18-2024 Basophils/100 WBC (Bld) 0.5 % 0-1 [facility] Bedside Glucoseon 10-18-2024 FINGERSTICK GLU 276 mg/dL High 74-106 [facility] Comment on above: Result Comment: LUCIO GEMENT OF PATIENT CARE PER NURSING PROTOCOL Performed By: #### L 501.080 ####[facility] [address] [place], [address] FINGERSTICK GLU 314 mg/dL High 74-106 [facility] Comment on above: Result Comment: LUCIO GEMENT OF PATIENT CARE PER NURSING PROTOCOL Performed By: #### L 501.080 #### [facility] [address] [place], [address] CBC W/Diff, Automatedon 10-04 Absolute Lymph 1.63 X10 3/uL Normal 0.83-4.51 [facility] Comment on above: Performed By: #### L 100.0100, L300.8000, L500.2500 ####[facility] [address] [place], [address] Absolute Neut 3.3 X10 3/uL Normal 2.0-7.7 [facility] Comment on above: Performed By: #### L 100.0100, L300.8000, L500.2500 ####[facility] [address] [place], [address] Basophils/100 WBC (Bld) 0.5 % Normal 0-1 [facility] Comment on above: Performed By: #### L 100.0100, L300.8000, L500.2500 ####[facility] [address] [place], [address] Eosinophils/100 WBC (Bld) 1.6 % Normal 0-5 [facility] Comment on above: Performed By: #### L 100.0100, L300.8000, L500.2500 ####[facility] [address] [place], [address] Erythrocyte distribution width (RBC) [Ratio] 14.4 % Normal 11.6-14.6 [facility] Comment on above: Performed By: #### L 100.0100, L300.8000, L500.2500 ####[facility] [address] [place], [address] Hematocrit (Bld) [Volume fraction] 30.7 % Low 37-47 [facility] Comment on above: Performed By: #### L 100.0100, L300.8000, L500.2500 ####[facility] [address] [place], [address] Hemoglobin (Bld) [Mass/Vol] 10.2 g/dL Low 12.0-15.0 [facility] Comment on above: Performed By: #### L 100.0100, L300.8000, L500.2500 ####[facility] [address] [place], [address] IG% 2.300 High 0.0-0.9 [facility] Comment on above: Result Comment: IG% - Immature Granulocytes (promyelocytes, myelocytes and metamyelocytes) > 1% indicates that a LEFT SHIFT is Present. Performed By: #### L 100.0100, L300.8000, L500.2500 ####[facility] [address] [place], [address] Lymphocytes/100 WBC (Bld) 28.6 % Normal 19-41 [facility] Comment on above: Performed By: #### L 100.0100, L300.8000, L500.2500 ####[facility] [address] [place], [address] MCH (RBC) [Entitic mass] 29.2 pg Normal 27.0-32.0 [facility] Comment on above: Performed By: #### L 100.0100, L300.8000, L500.2500 ####[facility] [address] [place], [address] MCHC (RBC) [Mass/Vol] 33.2 g/dL Normal 32-36 [facility] Comment on above: Performed By: #### L 100.0100, L300.8000, L500.2500 ####[facility] [address] [place], [address] MCV (RBC) [Entitic vol] 88.0 fL Normal 81-99 [facility] Comment on above: Performed By: #### L 100.0100, L300.8000, L500.2500 ####[facility] [address] [place], [address] Monocytes/100 WBC (Bld) 9.1 % Normal 0-10 [facility] Comment on above: Performed By: #### L 100.0100, L300.8000, L500.2500 ####[facility] [address] [place], [address] Neutrophils/100 WBC (Bld) 57.9 % Normal 47-70 [facility] Comment on above: Performed By: #### L 100.0100, L300.8000, L500.2500 ####[facility] [address] [place], [address] Nucleated RBC (Bld) [#/Vol] 0 10*3/uL Normal 0-5 [facility] Comment on above: Performed By: #### L 100.0100, L300.8000, L500.2500 ####[facility] [address] [place], [address] Platelet mean volume (Bld) [Entitic vol] 10.3 fL Normal 6.2-12.0 [facility] Comment on above: Performed By: #### L 100.0100, L300.8000, L500.2500 ####[facility] [address] [place], [address] Platelets (Bld) [#/Vol] 178 10*3/uL Normal 150-450 [facility] Comment on above: Performed By: #### L 100.0100, L300.8000, L500.2500 ####[facility] [address] [place], [address] RBC (Bld) [#/Vol] 3.49 10*6/uL Low 4.2-5.4 [facility] Comment on above: Performed By: #### L 100.0100, L300.8000, L500.2500 ####[facility] [address] [place], [address] RDW SD 44.6 fl High 35.1-43.9 [facility] Comment on above: Performed By: #### L 100.0100, L300.8000, L500.2500 ####[facility] [address] [place], [address] WBC (Bld) [#/Vol] 5.7 10*3/uL Normal 4.4-11.0 [facility] Comment on above: Performed By: #### L 100.0100, L300.8000, L500.2500 ####[facility] [address] [place], [address] CTA Chest W/WO Contraston CTA Chest W/WO Contrast [facility] Imaging Services [address] [place] [address] CTA Chest W/WO Contrast MR#: [id number] Acct: [id number] Name: MARIA ISABEL VANN Rep #: [id number] : 1970 F 54 From: Fred Herrera MD PCP: Dr. Sapna Ray DO Status: REG ER Study: CTA Chest W/WO Contrast Date of Exam: 10/18/24 Exam# [id number] Ordering Dr: Satya Mendenhall DO EXAM: CT [...] pulmonary edema and/or multifocal pneumonia. Reading Location: [facility] CC: Dr. Satya Mendenhall DO; Dr. Sapna Ray DO Bench Assembler Operator: Signed Normal [facility] Carbon dioxide, total [Moles /volume] in Central venous bloodOrdered By: Satya Mendenhall on 10-18-2024 CO2 [Moles/Vol] 21.3 mmol/L 21.0-32.0 [facility] Chest PA and Lateralon 10-18 Chest PA and Lateral [facility] Imaging Services [address] [place] [address] Chest PA and Lateral MR#: [id number] Acct: [id number] Name: MARIA ISABEL VANN Rep #: [id number] : 1970 F 54 From: Fred Herrera MD PCP: Dr. Sapna Ray DO Status: REG ER Study: Chest PA and Lateral Date of Exam: 10/18/24 Exam# [id number] Ordering Dr: Satya Mendenhall DO EXAM: XR [...] edema. Pneumonia cannot be excluded. Reading Location: [facility] CC: Dr. Satya Mendenhall DO; Dr. Sapna Ray DO Bench Assembler Operator: Signed Normal [facility] Chloride assayOrdered By: Alonso Mendenhall on 10-18-2024 Chloride [Moles/Vol] 102 mmol/L 98-108 [facility] D-Dimer Quantitative (DVT/PE )on 10-18-2024 D-DIMER QUANT 1.60 FEU/ug/m Invalid Interpretation Code 0.27-0.49 [facility] Comment on above: Order Comment: CRITI DAMIAN VALUE CALLED TO SEAN GALLEGOS10/18/24 1102 Michelle Schaefer.RESULTS READ BACK BY SAME. Result Comment: D-Di dusty ELEVATED (>0.49): Additional studies and clinical assessments are indicated to conclude diagnosis of: Deep Vein Thrombosis (DVT) or Pulmonary Embolism (PE) Performed By: #### L 100.0100, L300.8000, L500.2500 ####[facility] [address] [place], [address] Echo Complete W/ Contraston 10-18-2024 Echo Complete W/ Contrast [facility] Cardiovascular Services [address] [place] [address] Echo Complete W/ Contrast 10/18/24 0319 MR#: [id number] Acct: [id number] Name: MARIA ISABEL VANN Rep #: [id number] : 1970 54 From: Tez Walker MD Attending Dr: Dr. Darvin Posey DO Status: ADM IN Ordering Dr: Darvin Posey DO Date: 10/18/24 Location: [facility] Sex: F C Admitted: 10/18/24 Reason For [...] Date Dictated: 10/18/24318 Date Transcribed: 10/18/24 1641 Bench Assembler Operator: Signed Normal [facility] Echocardiogram study reportO rdered By: Tez Walker on 10-18-2024 Study report [facility] Cardiovascular Services [address] [place] [address] Echo Complete W/ Contrast 10/18/24318 MR#: [id number] Acct: [id number] Name: MARIA ISABEL VANN Rep #:[id number] : 1970 54 From: Tez De La Paz Attending Dr: Dr. Darvin Posey DO Status: ADM IN Ordering Dr: Darvin Posey DO Date: Location: [facility] Sex: F C Admitted: 10/18/24 Reason For [...] Date Dictated: 10/18/249 Date Transcribed: 10/18/24 1641 Bench Assembler Operator: Signed [facility] Work Phone: Emergency Department Summary on 10-18-2024 Emergency Department Summary [facility] Medical Records Department [address] [place] [address] Emergency Department Summary 10/18/24 MR#: [id number] Acct: [id number] Name: MARIA ISABEL VANN Rep #: [id number] : 1970 54 From: Satya Mendenhall DO PCP: Dr. Sapna Ray DO Status:ADM IN Location: [place] [address] HPI History of Present Illness Chief Complaint: [...] Did recently have a car ride to [place]. Denies any bilateral lower extremity swelling or [...] intact Psych: Cooperative, appropriate mood and affect [facility] Medical History (Updated 10/18/24 @ 13:58 by [...] nasal spray 1 spray intranasal 4X/DAY PRN OR N 10/18/24 Unknown History aerosol (Deep Sea Nasal) allergies Allergy/AdvReac Type Severity Reaction Status Date / Time etodolac (From [facility]) Allergy Rash Verified 01/15/24 12:24 [...] 13:56 b (more content not included)... Normal [facility] Eosinophil percentageOrdered By: Satya Mendenhall on 10-18-2024 Eosinophils/100 WBC (Bld) 1.6 % 0-5 [facility] Erythrocyte distribution wid th ratioOrdered By: Satya Mendenhall on 10-18-2024 Erythrocyte distribution width (RBC) [Ratio] 14.4 % 11.6-14.6 [facility] Erythrocyte distribution wid th standard deviationOrdered By: Satya De Los Santos on 10-18-2024 Erythrocyte distribution width (RBC) [Ratio] 44.6 fl High 35.1-43.9 [facility] Glomerular filtration rate ( GFR) estimation/1.73 sq m using serum, plasma, or whole bOrdered By: Satya Mendenhall on 10-18-2024 GFR/1.73 sq M.predicted among non-blacks MDRD (S/P/Bld) [Vol rate/Area] 67 mL/min/{1.73_m2} >60 [facility] Comment on above: mL/min/1.73m2 CKD-EP I Creatinine Equation (2020) H AND P Exam - [facility] 10-18-2024 H&P Exam - Hospitalist [facility] Medical Records Department [address] [place] [address] H P Exam - Hospitalist 10/18/24 1354 MR#: [id number] Acct: [id number] Name: MARIA ISABEL VANN Rep #: [id number] : 1970 54 From: Darvin Posey DO PCP: Dr. Sapna Ray DO Status:[facility] ER Location: ED HPI - General General [...] bilateral large effusions on her chest [facility]. [facility] [facility] History (Updated 10/18/24 @ 13:58 [...] nasal spray 1 spray intranasal 4X/DAY PRN OR N 10/18/24 Unknown History aerosol (Deep Sea Nasal) allergies Allergy/AdvReac Type Severity Reaction Status Date / Time etodolac (From [facility]) Allergy Rash Verified 01/15/24 12:24 [...] 10/18/24 10:12 (more content not included)... Normal [facility] Hematocrit Auto (Bld) [Volum e fraction]Ordered By: Satya Mendenhall on 10-18-2024 Hematocrit (Bld) [Volume fraction] 30.7 % Low 37-47 [facility] Hemoglobin measurementOrdere d By: Satya Mendenhall on 10-18-2024 Hemoglobin (Bld) [Mass/Vol] 10.2 g/dL Low 12.0-15.0 [facility] Immature granulocytes/100 WB C Auto (Bld)Ordered By: Satya Mendenhall on 10-18-2024 Immature granulocytes/100 WBC (Bld) 2.300 % High 0.0-0.9 [facility] Comment on above: IG% - Immature Granu locytes (promyelocytes, myelocytes and metamyelocytes) > 1% indicates that a LEFT SHIFT is Present. Influenza virus A and B and SARS-CoV-2 (COVID-19) and Respiratory syncytial virus RNAOrdered By: Satya Mendenhall on 10-18-2024 SARS-CoV-2 (COVID-19) RNA RUTH+probe Ql (Unsp spec) [facility] L499.0042on 10-18-2024 Trop T High Sen 34 ng/L High <=14 [facility] Comment on above: Performed By: #### L 499.0042 #### [facility] [address] [place], [address] L501.4021on 10-18-2024 Trop T High Sen 33 ng/L High <=14 [facility] Comment on above: Performed By: #### L 501.6900, L500.2500, L503.6005, L100.0100 #### [facility] [address] [place], [address] L503.7505on 10-18-2024 Natriuretic peptide B (Bld) [Mass/Vol] 2429 pg/mL High <=900 [facility] Comment on above: Result Comment: Hear t Failure Unlikely: < 300 pg/mL Heart Failure Likely < 50 Years: > 450 pg/mL 50-75 Years: > 900 pg/mL >75 Years: > 1800 pg/mL Performed By: #### L 501.6900, L500.2500, L503.6005, L100.0100 #### [facility] [address] [place], [address] Lactic Acidon 10-18-2024 Lactate [Moles/Vol] 1.4 mmol/L Normal 0.0-2.0 [facility] Comment on above: Order Comment: Y Performed By: #### L 501.6900, L500.2500, L503.6005, L100.0100 #### [facility] [address] [place], [address] Lactic acid measurementOrder ed By: Satya Mendenhall on 10-18-2024 Lactate [Moles/Vol] 1.4 mmol/L 0.0-2.0 [facility] M100.678on 10-18-2024 M100.678 Pending SARS-CoV-2 (COVID 19) Negative INFLUENZA A Negative INFLUENZA B Negative RSV PCR Negative Normal [facility] Comment on above: Performed By: #### L 501.6900, L500.2500, L503.6005, L100.0100 #### [facility] [address] [place], [address] MCV (mean corpuscular volume ) determinationOrdered By: Satya Mendenhall on 10-18-2024 MCV (RBC) [Entitic vol] 88.0 fL 81-99 [facility] Mean corpuscular hemoglobin (MCH) determinationOrdered By: Satya Mendenhall on 10-18-2024 MCH (RBC) [Entitic mass] 29.2 pg 27.0-32.0 [facility] Mean corpuscular hemoglobin concentration (MCHC) determinationOrdered By: Satya Mendenhall on 10-18-2024 MCHC (RBC) [Mass/Vol] 33.2 g/dL 32-36 [facility] Mean platelet volume determi nationOrdered By: Satya Mendenhall on 10-18-2024 Platelet mean volume (Bld) [Entitic vol] 10.3 fL 6.2-12.0 [facility] Monocyte percentageOrdered B y: Satya Mendenhall on 10-18-2024 Monocytes/100 WBC (Bld) 9.1 % 0-10 [facility] Natriuretic peptide.B prohor otoniel N-Terminal [Mass/volume] in Serum or PlasmaOrdered By: Satya Mendenhall on 10-18-2024 Natriuretic peptide.B prohormone N-Terminal [Mass/Vol] 2429 pg/mL High <900 [facility] Comment on above: Heart Failure Unlike ly: < 300 pg/mLHeart Failure Likely< 50 Years: > 450 pg/mL50-75 Years: > 900 pg/mL>75 Years: > 1800 pg/mL Neutrophil percentageOrdered By: Satya Mendenhall on 10-18-2024 Neutrophils/100 WBC (Bld) 57.9 % 47-70 [facility] Nucleated red blood cell per centageOrdered By: Satya Mendenhall on 10-18-2024 Nucleated RBC/100 WBC (Bld) [Ratio] 0 % 0-5 [facility] Platelet countOrdered By: Alonso Mendenhall on 10-18-2024 Platelets (Bld) [#/Vol] 178 10*3/uL 150-450 [facility] Potassium measurement (mass/ volume)Ordered By: Satya Mendenhall on 10-18-2024 Potassium (Unsp spec) [Mass/Vol] 5.3 mmol/L High 3.3-5.1 [facility] RBC Auto (Bld) [#/Vol]Ordere d By: Satya Mendenhall on 10-18-2024 RBC (Bld) [#/Vol] 3.49 10*6/uL Low 4.2-5.4 [facility] Serum creatinine measurement (mass/volume)Ordered By: Satya Mendenhall on 10-18-2024 Creatinine [Mass/Vol] 1.01 mg/dL 0.70-1.20 [facility] Serum glucose measurement (m ass/volume)Ordered By: Satya Mendenhall on 10-18-2024 Glucose [Mass/Vol] 412 mg/dL High 70-99 [facility] Serum or plasma calcium cherelle urement (mass/volume)Ordered By: Satya De Los Santos on 10-18-2024 Calcium [Mass/Vol] 8.7 mg/dL 7.6-11.0 [facility] Serum or plasma urea nitroge n measurement (mass/volume)Ordered By: Satya Mendenhall on 10-18-2024 Urea nitrogen [Mass/Vol] 37 mg/dL High 4-19 [facility] Sodium levelOrdered By: Andrew Mendenhall on 10-18-2024 Sodium [Moles/Vol] 135 mmol/L 133-145 [facility] Troponin T.cardiac [Mass/vol ume] in Serum or Plasma by High sensitivity methodOrdered By: Satya Mendenhall on 10-18-2024 Troponin T.cardiac High sensitivity method [Mass/Vol] 34 ng/L High <14 [facility] Troponin T.cardiac High sensitivity method [Mass/Vol] 33 ng/L High <14 [facility] White blood cell (WBC) count Ordered By: Satya Mendenhall on 10-18-2024 WBC (Bld) [#/Vol] 5.7 10*3/uL 4.4-11.0 [facility] CNOVon 07-18-2024 CNOV Office Visit (UCWSTR ) MARIA ISABEL VANN ([id number]) 1970 F Date Time Provider Department 07/18/24 10:00 AM MERRY MEDRANO [facility] During your visit today, we recorded the following information about you: Temperature Pulse Respiration Blood pressure 98.3 degrees 118/minute 18/minute 122/78 Weight 82.8 kg Merry Medrano APRN.TABLET TESTER 07/18/2024 10:02 AM Signed Each of us [...] as smoke, should be avoided. Merry Medrano APRN.TABLET TESTER 07/18/2024 10:05 (more content not included)... Normal [facility] Culture, Blood (WB)on 2023 CUB Blood cultures x2, f rom two different sites No growth in 5 days. Normal [facility] Comment on above: Performed By: #### L 501.6900, L500.2500, L503.6005, L100.0100 #### [facility] [address] [place], [place], [id number] Wound Cultureon 01-17-2024 WC Staphylococcus aureu s [...] S Vancomycin Islt YASIR 1 S Normal [facility] Comment on above: Performed By: #### L 501.6900, L500.2500, L503.6005, L100.0100 #### [facility] [address] [place], [address] Bedside Glucoseon 01-16-2024 FINGERSTICK GLU 262 mg/dL High 74-106 [facility] Comment on above: Result Comment: LUCIO THAPA OF PATIENT CARE PER NURSING PROTOCOL Performed By: #### L 501.080 #### [facility] [address] [place], [address] CBC W/Diff, Automatedon 10-1 Absolute Lymph 1.20 X10 3/uL Normal 0.83-4.51 [facility] Comment on above: Performed By: #### L 501.5200, L500.4050, L501.9985, L100.0100 ####[facility] [address] [place], [address] Absolute Neut 2.6 X10 3/uL Normal 2.0-7.7 [facility] Comment on above: Performed By: #### L 501.5200, L500.4050, L501.9985, L100.0100 ####[facility] [address] [place], [address] Basophils/100 WBC (Bld) 0.8 % Normal 0-1 [facility] Comment on above: Performed By: #### L 501.5200, L500.4050, L501.9985, L100.0100 ####[facility] [address] [place], [address] Eosinophils/100 WBC (Bld) 2.3 % Normal 0-5 [facility] Comment on above: Performed By: #### L 501.5200, L500.4050, L501.9985, L100.0100 ####[facility] [address] [place], [address] Erythrocyte distribution width (RBC) [Ratio] 12.5 % Normal 11.6-14.6 [facility] Comment on above: Performed By: #### L 501.5200, L500.4050, L501.9985, L100.0100 ####[facility] [address] [place], [address] Hematocrit (Bld) [Volume fraction] 32.2 % Low 37-47 [facility] Comment on above: Performed By: #### L 501.5200, L500.4050, L501.9985, L100.0100 ####[facility] [address] [place], [address] Hemoglobin (Bld) [Mass/Vol] 10.6 g/dL Low 12.0-15.0 [facility] Comment on above: Performed By: #### L 501.5200, L500.4050, L501.9985, L100.0100 ####[facility] [address] [place], [address] IG% 4.900 High 0.0-0.9 [facility] Comment on above: Result Comment: IG% - Immature Granulocytes (promyelocytes, myelocytes and metamyelocytes) > 1% indicates that a LEFT SHIFT is Present. Performed By: #### L 501.5200, L500.4050, L501.9985, L100.0100 ####[facility] [address] [place], [address] Lymphocytes/100 WBC (Bld) 25.5 % Normal 19-41 [facility] Comment on above: Performed By: #### L 501.5200, L500.4050, L501.9985, L100.0100 ####[facility] [address] [place], [address] MCH (RBC) [Entitic mass] 28.0 pg Normal 27.0-32.0 [facility] Comment on above: Performed By: #### L 501.5200, L500.4050, L501.9985, L100.0100 ####[facility] [address] [place], [address] MCHC (RBC) [Mass/Vol] 32.9 g/dL Normal 32-36 [facility] Comment on above: Performed By: #### L 501.5200, L500.4050, L501.9985, L100.0100 ####[facility] [address] [place], [address] MCV (RBC) [Entitic vol] 85.0 fL Normal 81-99 [facility] Comment on above: Performed By: #### L 501.5200, L500.4050, L501.9985, L100.0100 ####[facility] [address] [place], [address] Monocytes/100 WBC (Bld) 11.0 % High 0-10 [facility] Comment on above: Performed By: #### L 501.5200, L500.4050, L501.9985, L100.0100 ####[facility] [address] [place], [address] Neutrophils/100 WBC (Bld) 55.5 % Normal 47-70 [facility] Comment on above: Performed By: #### L 501.5200, L500.4050, L501.9985, L100.0100 ####[facility] [address] [place], [address] Nucleated RBC (Bld) [#/Vol] 0 10*3/uL Normal 0-5 [facility] Comment on above: Performed By: #### L 501.5200, L500.4050, L501.9985, L100.0100 ####[facility] [address] [place], [address] Platelet mean volume (Bld) [Entitic vol] 9.8 fL Normal 6.2-12.0 [facility] Comment on above: Performed By: #### L 501.5200, L500.4050, L501.9985, L100.0100 ####[facility] [address] [place], [address] Platelets (Bld) [#/Vol] 154 10*3/uL Normal 150-450 [facility] Comment on above: Performed By: #### L 501.5200, L500.4050, L501.9985, L100.0100 ####[facility] [address] [place], [address] RBC (Bld) [#/Vol] 3.79 10*6/uL Low 4.2-5.4 [facility] Comment on above: Performed By: #### L 501.5200, L500.4050, L501.9985, L100.0100 ####[facility] [address] [place], [address] RDW SD 38.5 fl Normal 35.1-43.9 [facility] Comment on above: Performed By: #### L 501.5200, L500.4050, L501.9985, L100.0100 ####[facility] [address] [place], [address] WBC (Bld) [#/Vol] 4.7 10*3/uL Normal 4.4-11.0 [facility] Comment on above: Performed By: #### L 501.5200, L500.4050, L501.9985, L100.0100 ####[facility] [address] [place], [address] [facility] Albumin [Mass/Vol] 2.3 g/dL Low 3.2-5.0 [facility] Comment on above: Performed By: #### L 501.5200, L500.4050, L501.9985, L100.0100 ####[facility] [address] [place], [address] Albumin/Globulin [Mass ratio] 0.6 {ratio} Low 0.9-2.4 [facility] Comment on above: Performed By: #### L 501.5200, L500.4050, L501.9985, L100.0100 ####[facility] [address] [place], [address] ALK P 86 U/L Normal 45-117 [facility] Comment on above: Performed By: #### L 501.5200, L500.4050, L501.9985, L100.0100 ####[facility] [address] [place], [address] ALT [Catalytic activity/Vol] 21 U/L Normal 13-56 [facility] Comment on above: Performed By: #### L 501.5200, L500.4050, L501.9985, L100.0100 ####[facility] [address] [place], [address] AST [Catalytic activity/Vol] 21 U/L Normal 15-37 [facility] Comment on above: Performed By: #### L 501.5200, L500.4050, L501.9985, L100.0100 ####[facility] [address] [place], [address] Bilirubin [Mass/Vol] 0.20 mg/dL Normal 0.20-1.00 [facility] Comment on above: Result Comment: For patients on eltrombopag therapy, use of Dimension [place] TBIL is not recommended. Performed By: #### L 501.5200, L500.4050, L501.9985, L100.0100 ####[facility] [address] [place], [address] BUN/CRE 37.3 RATIO High 10-20 [facility] Comment on above: Performed By: #### L 501.5200, L500.4050, L501.9985, L100.0100 ####[facility] [address] [place], [address] CA,Total 8.6 mg/dL Normal 8.5-10.1 [facility] Comment on above: Performed By: #### L 501.5200, L500.4050, L501.9985, L100.0100 ####[facility] [address] [place], [address] Chloride [Moles/Vol] 102 mmol/L Normal 98-107 [facility] Comment on above: Performed By: #### L 501.5200, L500.4050, L501.9985, L100.0100 ####[facility] [address] [place], [address] CO2 [Moles/Vol] 26.0 mmol/L Normal 21.0-32.0 [facility] Comment on above: Performed By: #### L 501.5200, L500.4050, L501.9985, L100.0100 ####[facility] [address] [place], [address] Creatinine [Mass/Vol] 0.80 mg/dL Normal 0.55-1.02 [facility] Comment on above: Result Comment: The validity of the calculated GFR GFRAA in patients over 70 years has not been determined. Clinical correlation is essential. Performed By: #### L 501.5200, L500.4050, L501.9985, L100.0100 ####[facility] [address] [place], [address] ECRCL 86.82 ml/min Normal [facility] Comment on above: Performed By: #### L 501.5200, L500.4050, L501.9985, L100.0100 ####[facility] [address] [place], [address] EST GFR - AA 96 mL/min Normal >60 [facility] Comment on above: Result Comment: Afri can Stateless GFR Calc Performed By: #### L 501.5200, L500.4050, L501.9985, L100.0100 ####[facility] [address] [place], [address] GAP 6 Normal 5-15 [facility] Comment on above: Performed By: #### L 501.5200, L500.4050, L501.9985, L100.0100 ####[facility] [address] [place], [address] GFR/1.73 sq M.predicted among non-blacks MDRD (S/P/Bld) [Vol rate/Area] 79 mL/min/{1.73_m2} Normal >60 [facility] Comment on above: Result Comment: Non- GFR Calc Performed By: #### L 501.5200, L500.4050, L501.9985, L100.0100 ####[facility] [address] [place], [address] Globulin (S) [Mass/Vol] 3.9 g/dL Normal 2.2-4.2 [facility] Comment on above: Performed By: #### L 501.5200, L500.4050, L501.9985, L100.0100 ####[facility] [address] [place], [address] Glucose [Mass/Vol] 298 mg/dL High 74-106 [facility] Comment on above: Result Comment: Gluc ose result greater than or equal to 200 mg/dL suggests DIABETES MELLITUS per A.D.A. criteria. Performed By: #### L 501.5200, L500.4050, L501.9985, L100.0100 ####[facility] [address] [place], [address] Potassium [Moles/Vol] 3.7 mmol/L Normal 3.5-5.1 [facility] Comment on above: Performed By: #### L 501.5200, L500.4050, L501.9985, L100.0100 ####[facility] [address] [place], [address] Sodium [Moles/Vol] 135 mmol/L Low 136-145 [facility] Comment on above: Performed By: #### L 501.5200, L500.4050, L501.9985, L100.0100 ####[facility] [address] [place], [address] T PROT 6.2 g/dL Low 6.4-8.2 [facility] Comment on above: Performed By: #### L 501.5200, L500.4050, L501.9985, L100.0100 ####[facility] [address] [place], [address] Urea nitrogen [Mass/Vol] 30 mg/dL High 7-18 [facility] Comment on above: Performed By: #### L 501.5200, L500.4050, L501.9985, L100.0100 ####[facility] [address] [place], [address] Discharge Instructionon 01-04 Discharge Instruction [facility] Medical Records Department [address] [place] [address] Instructions for Home/Discharge Instructions 01/16/24 0948 MR#: [id number] Acct: [id number] Name: MARIA ISABEL VANN Rep #: [id number] : 1970 53 From: J Luis Diaz [...] can be placed): Home, Self Care 01/16/24 0932 J Luis Diaz MD CC: Dr. Sapna Ray DO; Dr. Cari Reeves MD Signed Normal [facility] Gram Stainon 01-16-2024 GS Gram Stain 1+ Red Blood Cells 2+ White Blood Cells 3+ Gram positive cocci in clusters Normal [facility] Comment on above: Performed By: #### L 501.0729, L500.2500, L503.6008, L100.0100 #### [facility] [address] [place], [address] Hemoglobin A1con 01-16-2024 HbA1c (Bld) [Mass fraction] % High 3.8-5.6 [facility] Comment on above: Result Comment: Norm al < 5.7 % Prediabetic 5.7 - 6.4 % Diabetic >or= 6.5 % Please note range changes. Performed By: #### L 501.5200, L500.4050, L501.9985, L100.0100 ####[facility] [address] [place], [address] Magnesiumon 01-16-2024 Magnesium [Mass/Vol] 2.1 mg/dL Normal 1.6-2.6 [facility] Comment on above: Performed By: #### L 501.5200, L500.4050, L501.9985, L100.0100 ####[facility] [address] [place], [address] Acetone Serumon 01-15-2024 ACETONE SERUM Negative Normal NEG [facility] Comment on above: Performed By: #### L 501.6900, L500.2500, L503.6005, L100.0100 #### [facility] [address] [place], [address] Basic Metabolic Profile (BMP )on 01-15-2024 BUN/CRE 25.4 RATIO High 10- [facility] Comment on above: Performed By: #### L 501.6900, L500.2500, L503.6005, L100.0100 #### [facility] [address] [place], [address] CA,Total 9.5 mg/dL Normal 8.5-10.1 [facility] Comment on above: Performed By: #### L 501.6900, L500.2500, L503.6005, L100.0100 #### [facility] [address] [place], [address] Chloride [Moles/Vol] 93 mmol/L Low 98-107 [facility] Comment on above: Performed By: #### L 501.6900, L500.2500, L503.6005, L100.0100 #### [facility] [address] [place], [address] CO2 [Moles/Vol] 23.0 mmol/L Normal 21.0-32.0 [facility] Comment on above: Performed By: #### L 501.6900, L500.2500, L503.6005, L100.0100 #### [facility] [address] [place], [address] Creatinine [Mass/Vol] 1.34 mg/dL High 0.55-1.02 [facility] Comment on above: Result Comment: The validity of the calculated GFR GFRAA in patients over 70 years has not been determined. Clinical correlation is essential. Performed By: #### L 501.6900, L500.2500, L503.6005, L100.0100 #### [facility] [address] [place], [address] EST GFR - AA 53 mL/min Low >60 [facility] Comment on above: Result Comment: Afri can Stateless GFR Calc Performed By: #### L 501.6900, L500.2500, L503.6005, L100.0100 #### [facility] [address] [place], [address] GAP 13 Normal 5-15 [facility] Comment on above: Performed By: #### L 501.6900, L500.2500, L503.6005, L100.0100 #### [facility] [address] [place], [address] GFR/1.73 sq M.predicted among non-blacks MDRD (S/P/Bld) [Vol rate/Area] 44 mL/min/{1.73_m2} Low >60 [facility] Comment on above: Result Comment: Non- GFR Calc Performed By: #### L 501.6900, L500.2500, L503.6005, L100.0100 #### [facility] [address] [place], [address] Glucose [Mass/Vol] 482 mg/dL Invalid Interpretation Code 74-106 [facility] Comment on above: Result Comment: Crit ical Result(s) Called at: 13:58:53 01/15/2024 by: Eulalio López to Marialuisa Lobo. Results read back by same. Glucose result greater than or equal to 200 mg/dL suggests DIABETES MELLITUS per A.D.A. criteria. Performed By: #### L 501.6900, L500.2500, L503.6005, L100.0100 #### [facility] [address] [place], [address] Potassium [Moles/Vol] 3.6 mmol/L Normal 3.5-5.1 [facility] Comment on above: Performed By: #### L 501.6900, L500.2500, L503.6005, L100.0100 #### [facility] [address] [place], [address] Sodium [Moles/Vol] 128 mmol/L Low 136-145 [facility] Comment on above: Performed By: #### L 501.6900, L500.2500, L503.6005, L100.0100 #### [facility] [address] [place], [address] Urea nitrogen [Mass/Vol] 34 mg/dL High 7-18 [facility] Comment on above: Performed By: #### L 501.6900, L500.2500, L503.6005, L100.0100 #### [facility] [address] [place], [address] Bedside Glucoseon 01-15-2024 FINGERSTICK GLU 420 mg/dL High 74-106 [facility] Comment on above: Result Comment: LUCIO THAPA OF PATIENT CARE PER NURSING PROTOCOL Performed By: #### L 499.0042 #### [facility] [address] [place], [address] FINGERSTICK GLU 357 mg/dL High 74-106 [facility] Comment on above: Result Comment: LUCIO GEMENT OF PATIENT CARE PER NURSING PROTOCOL Performed By: #### L 501.6900, L500.2500, L503.6005, L100.0100 #### [facility] [address] [place], [address] FINGERSTICK GLU 425 mg/dL High 74-106 [facility] Comment on above: Result Comment: LUCIO GEMENT OF PATIENT CARE PER NURSING PROTOCOL Performed By: #### L 501.6900, L500.2500, L503.6005, L100.0100 #### [facility] [address] [place], [address] FINGERSTICK GLU > 500 Invalid Interpretation Code 74-[address] [place] [address] Comment on above: Result Comment: Dr Flo rendon Followed MANAGEMENT OF PATIENT CARE PER NURSING PROTOCOL Performed By: #### L 501.080 ####[facility] [address] [place], [address] CBC W/Diff, Automatedon 10-1 Absolute Lymph 1.53 X10 3/uL Normal 0.83-4.51 [facility] Comment on above: Performed By: #### L 501.6900, L500.2500, L503.6005, L100.0100 #### [facility] [address] [place], [address] Absolute Neut 4.9 X10 3/uL Normal 2.0-7.7 [facility] Comment on above: Performed By: #### L 501.6900, L500.2500, L503.6005, L100.0100 #### [facility] [address] [place], [address] Basophils/100 WBC (Bld) 1.2 % High 0-1 [facility] Comment on above: Performed By: #### L 501.6900, L500.2500, L503.6005, L100.0100 #### [facility] [address] [place], [address] Eosinophils/100 WBC (Bld) 1.7 % Normal 0-5 [facility] Comment on above: Performed By: #### L 501.6900, L500.2500, L503.6005, L100.0100 #### [facility] [address] [place], [address] Erythrocyte distribution width (RBC) [Ratio] 12.4 % Normal 11.6-14.6 [facility] Comment on above: Performed By: #### L 501.6900, L500.2500, L503.6005, L100.0100 #### [facility] [address] [place], [address] Hematocrit (Bld) [Volume fraction] 34.8 % Low 37-47 [facility] Comment on above: Performed By: #### L 501.6900, L500.2500, L503.6005, L100.0100 #### [facility] [address] [place], [address] Hemoglobin (Bld) [Mass/Vol] 11.7 g/dL Low 12.0-15.0 [facility] Comment on above: Performed By: #### L 501.6900, L500.2500, L503.6005, L100.0100 #### [facility] [address] [place], [address] IG% 4.300 High 0.0-0.9 [facility] Comment on above: Result Comment: IG% - Immature Granulocytes (promyelocytes, myelocytes and metamyelocytes) > 1% indicates that a LEFT SHIFT is Present. Performed By: #### L 501.6900, L500.2500, L503.6005, L100.0100 #### [facility] [address] [place], [address] Lymphocytes/100 WBC (Bld) 18.8 % Low 19-41 [facility] Comment on above: Performed By: #### L 501.6900, L500.2500, L503.6005, L100.0100 #### [facility] [address] [place], [address] MCH (RBC) [Entitic mass] 28.0 pg Normal 27.0-32.0 [facility] Comment on above: Performed By: #### L 501.6900, L500.2500, L503.6005, L100.0100 #### [facility] [address] [place], [address] MCHC (RBC) [Mass/Vol] 33.6 g/dL Normal 32-36 [facility] Comment on above: Performed By: #### L 501.6900, L500.2500, L503.6005, L100.0100 #### [facility] [address] [place], [address] MCV (RBC) [Entitic vol] 83.3 fL Normal 81-99 [facility] Comment on above: Performed By: #### L 501.6900, L500.2500, L503.6005, L100.0100 #### [facility] [address] [place], [address] Monocytes/100 WBC (Bld) 13.3 % High 0-10 [facility] Comment on above: Performed By: #### L 501.6900, L500.2500, L503.6005, L100.0100 #### [facility] [address] [place], [address] Neutrophils/100 WBC (Bld) 60.7 % Normal 47-70 [facility] Comment on above: Performed By: #### L 501.6900, L500.2500, L503.6005, L100.0100 #### [facility] [address] [place], [address] Nucleated RBC (Bld) [#/Vol] 0 10*3/uL Normal 0-5 [facility] Comment on above: Performed By: #### L 501.6900, L500.2500, L503.6005, L100.0100 #### [facility] [address] [place], [address] Platelet mean volume (Bld) [Entitic vol] 10.3 fL Normal 6.2-12.0 [facility] Comment on above: Performed By: #### L 501.6900, L500.2500, L503.6005, L100.0100 #### [facility] [address] [place], [address] Platelets (Bld) [#/Vol] 190 10*3/uL Normal 150-450 [facility] Comment on above: Performed By: #### L 501.6900, L500.2500, L503.6005, L100.0100 #### [facility] [address] [place], [address] RBC (Bld) [#/Vol] 4.18 10*6/uL Low 4.2-5.4 [facility] Comment on above: Performed By: #### L 501.6900, L500.2500, L503.6005, L100.0100 #### [facility] [address] [place], [address] RDW SD 38.1 fl Normal 35.1-43.9 [facility] Comment on above: Performed By: #### L 501.6900, L500.2500, L503.6005, L100.0100 #### [facility] [address] [place], [address] WBC (Bld) [#/Vol] 8.1 10*3/uL Normal 4.4-11.0 [facility] Comment on above: Performed By: #### L 501.6900, L500.2500, L503.6005, L100.0100 #### [facility] [address] [place], [address] Chest 1 View (Portable)on Chest 1 View (Portable) [facility] Imaging Services [address] [place] [address] Chest 1 View (Portable) MR#: [id number] Acct: [id number] Name: MARIA ISABEL VANN Rep #: [id number] : 1970 F 53 From: Carlos trinh MD PCP: Dr. Sapna Ray, DO Status: [facility] ER Study: Chest 1 View (Portable) Date of Exam: 01/15/24 Exam# [id number] Ordering Dr: Osiel Melvin DO [id number] STUDY: X-RAY CHEST REASON FOR EXAM: Female, [...] Sapna Ray DO; Dr. 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 Sapna Ray DO Status:ADM IN Location: MS3 [id number] HPI History of Present Illness Chief Complaint: [...] She denies abdominal pain or urinary symptoms. [facility] Medical History Abdominal panniculus, symptomatic BERKLEY (acute [...] Reaction Status Date / Time etodolac (From [facility]) Allergy Rash Verified 01/15/24 12:24 [...] Eyes Eyes (more content not included)... Normal [facility] H AND P Exam - [facility] 01-15-2024 H&P Exam - Hospitalist [facility] Medical Records Department [address] [place] [address] H P Exam - Hospitalist 01/15/24 1626 MR#: [id number] Acct: [id number] Name: MARIA ISABEL VANN Rep #: [id number] : 1970 53 From: Cari Reeves MD PCP: Dr. Sapna Ray, DO Status:ADM IN Location: [facility] [id number] HPI - General General Date of Admission: 01/15/24 Date of Service: 01/15/24 Chief Complaint: Fells unwell, left sided groin abscess HPI Narrative MARIA ISABEL VANN, is a 53 F with history of diabetes, GERD, fibromyalgia who presented to [facility] ED 01/15/2024 feeling unwell since this morning. [...] morning because of how she was feeling. [facility] Medical History Abdominal panniculus, symptomatic BERKLEY [...] Reaction Status Date / Time etodolac (From [facility]) Allergy Rash Verified 01/15/24 12:24 [...] throat i (more content not included)... Normal [facility] Lactic Acidon 01-15-2024 Lactate [Moles/Vol] 1.3 mmol/L Normal 0.4-1.9 [facility] Comment on above: Order Comment: Y Performed By: #### L 501.6900, L500.2500, L503.6005, L100.0100 #### [facility] [address] [place], [address] Urinalysis, Completeon 01-14 EPI,SQUAMOUS 0-5 SEEN Normal 5-10 [facility] Comment on above: Order Comment: CLEAN CATCH Performed By: #### L 400.0001 ####[facility] [id number] [place], [address] RBC 0-5 SEEN Normal 0-5 [facility] Comment on above: Order Comment: CLEAN CATCH Performed By: #### L 400.0001 ####[facility] [id number] [place], [address] WBC 5-10 SEEN Normal 0-5 [facility] Comment on above: Order Comment: CLEAN CATCH Performed By: #### L 400.0001 ####[facility] [id number] [place], [address] BACTERIA 0 SEEN Normal None Seen [facility] Comment on above: Order Comment: CLEAN CATCH Performed By: #### L 400.0001 ####[facility] [address] [place], [address] Mucus Ql (Urine sed) 0 SEEN Normal [facility] Comment on above: Order Comment: CLEAN CATCH Performed By: #### L 400.0001 ####[facility] [address] [place], [address] Emergency Department Summary on 12-07-2023 Emergency Department Summary [facility] Medical Records Department [address] [facility] [place] [address] Emergency Department Summary 12/07/23 MR#: [id number] Acct: [id number] Name: MARIA ISABEL VANN Rep #: [id number] : 1970 53 From: Sav Kenyon DO [...] Reaction Status Date / Time etodolac (From [facility]) Allergy Rash Verified 12/07/23 19:02 [...] irrigated w (more content not included)... Normal [facility] Absolute lymphocyte counton 03-30-2022 Lymphocytes Auto (Unsp spec) [#/Vol] 2.23 10*3/uL 0.83-4.51 [facility] Work Phone: Basophil percentageon 2021 Basophil percentage 0-5 SEEN /hpf 0-5 [facility] Work Phone: Basophils/100 WBC (Bld) 0.8 % 0-1 [facility] Work Phone: [phone] Bilirubin [Mass/Vol] 0.40 mg/dL 0.20-1.00 [facility] Work Phone: [phone] Comment on above: For patients on eltr ombopag therapy, use of Dimension [place] TBIL is not recommended. Chloride [Moles/Vol] 101 mmol/L 98-107 [facility] Work Phone: Eosinophils/100 WBC (Bld) 2.5 % 0-5 [facility] Work [phone] Glucose [Mass/Vol] 280 mg/dL 74-106 [facility] Work Phone: [phone] Comment on above: Glucose result great er than or equal to 200 mg/dLsuggests DIABETES MELLITUS per A.D.A. criteria. Neutrophils (Bld) [#/Vol] 4.9 10*3/uL 2.0-7.7 [facility] Work Phone: [phone] Neutrophils/100 WBC (Bld) 58.2 % 47-70 [facility] Work Phone: [phone] Potassium [Moles/Vol] 4.7 mmol/L 3.5-5.1 [facility] Work Phone: [phone] Protein [Mass/Vol] 6.5 g/dL 6.4-8.2 [facility] Work Phone: [phone] Sodium [Moles/Vol] 132 mmol/L 136-145 [facility] Work Phone: [phone] WBC (Bld) [#/Vol] 8.4 10*3/uL 4.4-11.0 [facility] Work Phone: [phone] Bilirubin Test strip Ql (U)o n 03-30-2022 Bilirubin Ql (U) 3 mg/dL Negative [facility] Work Phone: [phone] Comment on above: COLOR OF URINE MAY A FFECT DIPSTICK RESULTS. Blood erythrocytes count (nu mber/volume)on 03-30-2022 RBC (Bld) [#/Vol] 3.94 10*6/uL 4.2-5.4 [facility] Work Phone: [phone] Blood hemoglobin measurement (mass/volume)on 03-30-2022 Hemoglobin (Bld) [Mass/Vol] 11.3 g/dL 12.0-15.0 [facility] Work Phone: Blood lymphocytes/100 leukoc yteson 03-30-2022 Lymphocytes/100 WBC (Bld) 26.6 % 19-41 [facility] Work Phone: Blood monocytes/100 leukocyt eson 03-30-2022 Monocytes/100 WBC (Bld) 10.4 % 0-10 [facility] Work Phone: Blood platelet mean volumeon 03-30-2022 Platelet mean volume (Bld) [Entitic vol] 10.4 fL 6.2-12.0 [facility] Work Phone: [phone] Determination of erythrocyte mean corpuscular volume (MCV)on 03-30-2022 MCV (RBC) [Entitic vol] 89.3 fL 81-99 [facility] Work Phone: [phone] Hematocrit Auto (Bld) [Volum e fraction]on 03-30-2022 Hematocrit (Bld) [Volume fraction] 35.2 % 37-47 [facility] Work Phone: Hyaline casts LM.LPF (Urine sed) [#/Area]on 03-30-2022 Hyaline casts (Urine sed) [#/Area] 0 /[LPF] 0-5 [facility] Work Phone: [phone] Ketones Test strip Ql (U)on 03-30-2022 Ketones Ql (U) 5 mg/dl Negative [facility] Work Phone: [phone] Laboratory - Chemistry and C hemistry - challengeon 03-30-2022 ALP [Catalytic activity/Vol] 70 U/L 45-117 [facility] Work Phone: [phone] ALT [Catalytic activity/Vol] 32 U/L 13-56 [facility] Work Phone: [phone] CO2 [Moles/Vol] 22.0 mmol/L 21.0-32.0 [facility] Work Phone: Globulin (S) [Mass/Vol] 3.5 g/dL 2.2-4.2 [facility] Work Phone: Urea nitrogen/Creatinine [Mass ratio] 30.4 mg/mg 10-20 [facility] Work Phone: Laboratory - Hematology and Cell countson 03-30-2022 Erythrocyte distribution width (RBC) [Entitic vol] 43.4 fL 35.1-43.9 [facility] Work Phone: Erythrocyte distribution width (RBC) [Ratio] 13.3 % 11.6-14.6 [facility] Work Phone: Immature granulocytes/100 WBC (Bld) 1.500 % 0.0-0.9 [facility] Work Phone: Comment on above: IG% - Immature Granu locytes (promyelocytes, myelocytes and metamyelocytes) > 1% indicates that a LEFT SHIFT is Present. MCH (RBC) [Entitic mass] 28.7 pg 27.0-32.0 [facility] Work Phone: Nucleated RBC/100 WBC (Bld) [Ratio] 0 % 0-5 [facility] Work Phone: MCHC Auto (RBC) [Mass/Vol]on 03-30-2022 MCHC (RBC) [Mass/Vol] 32.1 g/dL 32-36 [facility] Work Phone: Mucus LM Ql (Urine sed)on Mucus Ql (Urine sed) 1+ /hpf [facility] Work Phone: Nitrite Test strip Ql (U)on 03-30-2022 Nitrite Ql (U) Negative Negative [facility] Work Phone: No Panel Informationon 03-30 Estimated Creatinine Clearance Calc 36.05 ml/min [facility] Work Phone: Estimated GFR (MDRD) Amer 41 mL/min >60 [facility] Work Phone: Comment on above: GFR Calc Estimated GFR (MDRD) Non-Af Amer 34 mL/min >60 [facility] Work Phone: Comment on above: Non- GFR Calc Platelets bldon 03-30-2022 Platelets (Bld) [#/Vol] 253 10*3/uL 150-450 [facility] Work Phone: Protein Test strip Ql (U)on 03-30-2022 Protein Ql (U) 30 mg/dl Negative [facility] Work Phone: Serum or plasma albumin cherelle urement (mass/volume)on 03-30-2022 Albumin [Mass/Vol] 3.0 g/dL 3.2-5.0 [facility] Work Phone: Serum or plasma albumin/glob ulin mass ratioon 03-30-2022 Albumin/Globulin [Mass ratio] 0.9 {ratio} 0.9-2.4 [facility] Work Phone: Serum or plasma calcium cherelle urement (mass/volume)on 03-30-2022 Calcium [Mass/Vol] 9.3 mg/dL 8.5-10.1 [facility] Work Phone: Serum or plasma creatinine m easurement (mass/volume)on 03-30-2022 Creatinine [Mass/Vol] 1.68 mg/dL 0.55-1.02 [facility] Work Phone: Comment on above: The validity of the calculated GFR & GFRAA in patients over 70 years has not been determined. Clinical correlation is essential. Serum or plasma urea nitroge n measurement (mass/volume)on 03-30-2022 Urea nitrogen [Mass/Vol] 51 mg/dL 7-18 [facility] Work Phone: Squamous epithelial cells de tection in urine sediment by light microscopyon 03-30-2022 Epithelial cells.squamous LM Ql (Urine sed) 0-5 SEEN /hpf 5-10 [facility] Work Phone: Thin prep Papanicolaou smear with manual screeningon 03-30-2022 Thin prep Papanicolaou smear with manual screening 22 U/L 15-37 [facility] Work Phone: Thin prep Papanicolaou smear with manual screening 9 5-15 [facility] Work Phone: [phone] Urine blood detectionon - RBC Ql (U) Negative Negative [facility] Work Phone: [phone] RBC Ql (U) 0 SEEN /hpf 0-5 [facility] Work Phone: [phone] Urine clarityon 03-30-2022 Clarity (U) Clear Clear [facility] Work Phone: [phone] Urine color determinationon 03-30-2022 Color (U) Yellow Yellow [facility] Work Phone: [phone] Urine glucose detectionon Glucose Ql (U) 100 mg/dl Normal [facility] Work Phone: [phone] Urine leukocyte esterase det ection by dipstickon 03-30-2022 Leukocyte esterase Test strip Ql (U) 25 /ul Negative [facility] Work Phone: [phone] Urine pHon 03-30-2022 pH (U) 5.0 [pH] 5.0 - 8.0 [facility] Work Phone: Urine sediment bacteria coun t by microscopy (number/high power field)on 03-30-2022 Bacteria LM.HPF (Urine sed) [#/Area] 1 /[HPF] None Seen [facility] Work Phone: [phone] Urine specific gravity measu rementon 03-30-2022 Specific gravity (U) [Rel density] 1.020 1.002-1.03 0 [facility] Work Phone: [phone] Urobilinogen Auto test strip Ql (U)on 03-30-2022 Urobilinogen Ql (U) 4 mg/dl Normal [facility] Work Phone: [phone] Absolute lymphocyte counton 10-30-2021 Lymphocytes Auto (Unsp spec) [#/Vol] 2.85 10*3/uL 0.83-4.51 [facility] Work Phone: [phone] Basophil percentageon 2021 Basophil percentage 0-5 SEEN /hpf 0-5 [facility] Work Phone: Basophils/100 WBC (Bld) 0.3 % 0-1 [facility] Work Phone: Bilirubin [Mass/Vol] 0.50 mg/dL 0.20-1.00 [facility] Work Phone: [phone] Comment on above: For patients on eltr ombopag therapy, use of Dimension [place] TBIL is not recommended. Chloride [Moles/Vol] 105 mmol/L 98-107 [facility] Work Phone: Eosinophils/100 WBC (Bld) 1.9 % 0-5 [facility] Work Phone: Glucose [Mass/Vol] 199 mg/dL 74-106 [facility] Work Phone: [phone] Comment on above: Fasting Glucose resu lt greater than or equal to 126 mg/dL suggests DIABETES MELLITUS per A.D.A. criteria. Neutrophils (Bld) [#/Vol] 3.9 10*3/uL 2.0-7.7 [facility] Work Phone: Neutrophils/100 WBC (Bld) 51.0 % 47-70 [facility] Work Phone: [phone] Potassium [Moles/Vol] 4.1 mmol/L 3.5-5.1 [facility] Work Phone: Protein [Mass/Vol] 6.8 g/dL 6.4-8.2 [facility] Work Phone: Sodium [Moles/Vol] 138 mmol/L 136-145 [facility] Work Phone: WBC (Bld) [#/Vol] 7.7 10*3/uL 4.4-11.0 [facility] Work Phone: [phone] Bilirubin Test strip Ql (U)o n 10-30-2021 Bilirubin Ql (U) Negative Negative [facility] Work Phone: [phone] Blood erythrocytes count (nu mber/volume)on 10-30-2021 RBC (Bld) [#/Vol] 3.94 10*6/uL 4.2-5.4 [facility] Work Phone: Blood hemoglobin measurement (mass/volume)on 10-30-2021 Hemoglobin (Bld) [Mass/Vol] 11.6 g/dL 12.0-15.0 [facility] Work Phone: Blood lymphocytes/100 leukoc yteson 10-30-2021 Lymphocytes/100 WBC (Bld) 36.9 % 19-41 [facility] Work Phone: [phone] Blood monocytes/100 leukocyt eson 10-30-2021 Monocytes/100 WBC (Bld) 9.1 % 0-10 [facility] Work Phone: Blood platelet mean volumeon 10-30-2021 Platelet mean volume (Bld) [Entitic vol] 9.5 fL 6.2-12.0 [facility] Work Phone: Determination of erythrocyte mean corpuscular volume (MCV)on 10-30-2021 MCV (RBC) [Entitic vol] 88.3 fL 81-99 [facility] Work Phone: Glucose Glucometer (dC) [M ass/Vol]on 10-30-2021 Glucose [Mass/Vol] 203 mg/dL 74-106 [facility] Work Phone: Comment on above: MANAGEMENT OF PATIEN T CARE PER NURSING PROTOCOL Hematocrit Auto (Bld) [Volum e fraction]on 10-30-2021 Hematocrit (Bld) [Volume fraction] 34.8 % 37-47 [facility] Work Phone: Ketones Test strip Ql (U)on 10-30-2021 Ketones Ql (U) 5 mg/dl Negative [facility] Work Phone: Laboratory - Chemistry and C hemistry - challengeon 10-30-2021 ALP [Catalytic activity/Vol] 44 U/L 45-117 [facility] Work Phone: ALT [Catalytic activity/Vol] 25 U/L 13-56 [facility] Work Phone: CO2 [Moles/Vol] 26.0 mmol/L 21.0-32.0 [facility] Work Phone: Globulin (S) [Mass/Vol] 3.3 g/dL 2.2-4.2 [facility] Work Phone: Urea nitrogen/Creatinine [Mass ratio] 24.1 mg/mg 10-20 [facility] Work Phone: [phone] Laboratory - Hematology and Cell countson 10-30-2021 Erythrocyte distribution width (RBC) [Entitic vol] 43.0 fL 35.1-43.9 [facility] Work Phone: Erythrocyte distribution width (RBC) [Ratio] 13.4 % 11.6-14.6 [facility] Work Phone: [phone] Immature granulocytes/100 WBC (Bld) 0.800 % 0.0-0.9 [facility] Work Phone: Comment on above: IG% - Immature Granu locytes (promyelocytes, myelocytes and metamyelocytes) > 1% indicates that a LEFT SHIFT is Present. MCH (RBC) [Entitic mass] 29.4 pg 27.0-32.0 [facility] Work Phone: Nucleated RBC/100 WBC (Bld) [Ratio] 0 % 0-5 [facility] Work Phone: MCHC Auto (RBC) [Mass/Vol]on 10-30-2021 MCHC (RBC) [Mass/Vol] 33.3 g/dL 32-36 [facility] Work Phone: Mucus LM Ql (Urine sed)on Mucus Ql (Urine sed) 0 SEEN /hpf [facility] Work Phone: Nitrite Test strip Ql (U)on 10-30-2021 Nitrite Ql (U) Negative Negative [facility] Work Phone: No Panel Informationon 10-30 Estimated Creatinine Clearance Calc 44.21 ml/min [facility] Work Phone: Estimated GFR (MDRD) Amer 52 mL/min >60 [facility] Work Phone: Comment on above: GFR Calc Estimated GFR (MDRD) Non-Af Amer 43 mL/min >60 [facility] Work Phone: Comment on above: Non- GFR Calc Platelets bldon 10-30-2021 Platelets (Bld) [#/Vol] 244 10*3/uL 150-450 [facility] Work Phone: Protein Test strip Ql (U)on 10-30-2021 Protein Ql (U) 30 mg/dl Negative [facility] Work Phone: Serum or plasma albumin cherelle urement (mass/volume)on 10-30-2021 Albumin [Mass/Vol] 3.5 g/dL 3.2-5.0 [facility] Work Phone: Serum or plasma albumin/glob ulin mass ratioon 10-30-2021 Albumin/Globulin [Mass ratio] 1.1 {ratio} 0.9-2.4 [facility] Work Phone: Serum or plasma calcium cherelle urement (mass/volume)on 10-30-2021 Calcium [Mass/Vol] 9.3 mg/dL 8.5-10.1 [facility] Work Phone: Serum or plasma creatinine m easurement (mass/volume)on 10-30-2021 Creatinine [Mass/Vol] 1.37 mg/dL 0.55-1.02 [facility] Work Phone: Comment on above: The validity of the calculated GFR & GFRAA in patients over 70 years has not been determined. Clinical correlation is essential. Serum or plasma urea nitroge n measurement (mass/volume)on 10-30-2021 Urea nitrogen [Mass/Vol] 33 mg/dL 7-18 [facility] Work Phone: Squamous epithelial cells de tection in urine sediment by light microscopyon 10-30-2021 Epithelial cells.squamous LM Ql (Urine sed) 0-5 SEEN /hpf 5-10 [facility] Work Phone: Thin prep Papanicolaou smear with manual screeningon 10-30-2021 Thin prep Papanicolaou smear with manual screening 15 U/L 15-37 [facility] Work Phone: [phone] Thin prep Papanicolaou smear with manual screening 7 5-15 [facility] Work Phone: [phone] Urine blood detectionon 07-2 RBC Ql (U) Negative Negative [facility] Work Phone: [phone] RBC Ql (U) 0 SEEN /hpf 0-5 [facility] Work Phone: [phone] Urine clarityon 10-30-2021 Clarity (U) Sl. Cloudy Clear [facility] Work Phone: [phone] Urine color determinationon 10-30-2021 Color (U) Yellow Yellow [facility] Work Phone: Urine glucose detectionon Glucose Ql (U) 50 mg/dl Normal [facility] Work Phone: [phone] Urine leukocyte esterase det ection by dipstickon 10-30-2021 Leukocyte esterase Test strip Ql (U) 25 /ul Negative [facility] Work Phone: [phone] Urine pHon 10-30-2021 pH (U) 6.0 [pH] 5.0 - 8.0 [facility] Work Phone: Urine sediment bacteria coun t by microscopy (number/high power field)on 10-30-2021 Bacteria LM.HPF (Urine sed) [#/Area] 1 /[HPF] None Seen [facility] Work Phone: [phone] Urine specific gravity measu rementon 10-30-2021 Specific gravity (U) [Rel density] 1.020 1.002-1.03 0 [facility] Work Phone: [phone] Urobilinogen Auto test strip Ql (U)on 10-30-2021 Urobilinogen Ql (U) Normal mg/dl Normal [facility] Work Phone: [phone] Absolute lymphocyte counton 06-15-2022 Lymphocytes Auto (Unsp spec) [#/Vol] 2.61 10*3/uL 0.83-4.51 [facility] Work Phone: Basophil percentageon 2021 Basophils/100 WBC (Bld) 0.5 % 0-1 [facility] Work Phone: Bilirubin [Mass/Vol] 0.30 mg/dL 0.20-1.00 [facility] Work Phone: Comment on above: For patients on eltr ombopag therapy, use of Dimension [place] TBIL is not recommended. Chloride [Moles/Vol] 107 mmol/L 98-107 [facility] Work Phone: Eosinophils/100 WBC (Bld) 2.0 % 0-5 [facility] Work Phone: Glucose [Mass/Vol] 86 mg/dL 74-106 [facility] Work Phone: Neutrophils (Bld) [#/Vol] 5.1 10*3/uL 2.0-7.7 [facility] Work Phone: Neutrophils/100 WBC (Bld) 57.4 % 47-70 [facility] Work Phone: Potassium [Moles/Vol] 4.6 mmol/L 3.5-5.1 [facility] Work Phone: Protein [Mass/Vol] 7.3 g/dL 6.4-8.2 [facility] Work Phone: Sodium [Moles/Vol] 140 mmol/L 136-145 [facility] Work Phone: WBC (Bld) [#/Vol] 8.8 10*3/uL 4.4-11.0 [facility] Work Phone: Blood erythrocytes count (nu mber/volume)on 09-18-2021 RBC (Bld) [#/Vol] 4.36 10*6/uL 4.2-5.4 [facility] Work Phone: Blood hemoglobin measurement (mass/volume)on 09-18-2021 Hemoglobin (Bld) [Mass/Vol] 12.9 g/dL 12.0-15.0 [facility] Work Phone: Blood lymphocytes/100 leukoc yteson 09-18-2021 Lymphocytes/100 WBC (Bld) 29.6 % 19-41 [facility] Work Phone: Blood monocytes/100 leukocyt eson 09-18-2021 Monocytes/100 WBC (Bld) 10.0 % 0-10 [facility] Work Phone: Blood platelet mean volumeon 09-18-2021 Platelet mean volume (Bld) [Entitic vol] 9.6 fL 6.2-12.0 [facility] Work Phone: Determination of erythrocyte mean corpuscular volume (MCV)on 09-18-2021 MCV (RBC) [Entitic vol] 87.8 fL 81-99 [facility] Work Phone: Erythrocyte sedimentation ra conrado 09-18-2021 ESR (Bld) [Velocity] 28 mm/h 0-30 [facility] Work Phone: Hematocrit Auto (Bld) [Volum e fraction]on 09-18-2021 Hematocrit (Bld) [Volume fraction] 38.3 % 37-47 [facility] Work Phone: [phone] Laboratory - Chemistry and C hemistry - challengeon 09-18-2021 ALP [Catalytic activity/Vol] 45 U/L 45-117 [facility] Work Phone: ALT [Catalytic activity/Vol] 29 U/L 13-56 [facility] Work Phone: CO2 [Moles/Vol] 24.0 mmol/L 21.0-32.0 [facility] Work Phone: Globulin (S) [Mass/Vol] 3.8 g/dL 2.2-4.2 [facility] Work Phone: [phone] Urea nitrogen/Creatinine [Mass ratio] 38.5 mg/mg 10-20 [facility] Work Phone: Laboratory - Hematology and Cell countson 09-18-2021 Erythrocyte distribution width (RBC) [Entitic vol] 42.5 fL 35.1-43.9 [facility] Work Phone: Erythrocyte distribution width (RBC) [Ratio] 13.2 % 11.6-14.6 [facility] Work Phone: Immature granulocytes/100 WBC (Bld) 0.500 % 0.0-0.9 [facility] Work Phone: Comment on above: IG% - Immature Granu locytes (promyelocytes, myelocytes and metamyelocytes) > 1% indicates that a LEFT SHIFT is Present. MCH (RBC) [Entitic mass] 29.6 pg 27.0-32.0 [facility] Work Phone: Nucleated RBC/100 WBC (Bld) [Ratio] 0 % 0-5 [facility] Work Phone: MCHC Auto (RBC) [Mass/Vol]on 09-18-2021 MCHC (RBC) [Mass/Vol] 33.7 g/dL 32-36 [facility] Work Phone: No Panel Informationon 09-18 Estimated GFR (MDRD) Amer 79 mL/min >60 [facility] Work Phone: Comment on above: GFR Calc Estimated GFR (MDRD) Non-Af Amer 65 mL/min >60 [facility] Work Phone: Comment on above: Non- GFR Calc Platelets bldon 09-18-2021 Platelets (Bld) [#/Vol] 265 10*3/uL 150-450 [facility] Work Phone: Serum or plasma C reactive p rotein measurement (mass/volume)on 09-18-2021 CRP [Mass/Vol] 3.35 mg/L 0.0-3.0 [facility] Work Phone: Comment on above: C-Reactive Protein ( CRP) provides useful information for thediagnosis, therapy and monitoring of inflammatory processesand associated diseases. For the evaluation of Relative Riskfor Cardiovascular Disease, a High Sensitivity CRP (HSCRP)should be ordered. Serum or plasma albumin cherelle urement (mass/volume)on 09-18-2021 Albumin [Mass/Vol] 3.5 g/dL 3.2-5.0 [facility] Work Phone: Serum or plasma albumin/glob ulin mass ratioon 09-18-2021 Albumin/Globulin [Mass ratio] 0.9 {ratio} 0.9-2.4 [facility] Work Phone: Serum or plasma calcium cherelle urement (mass/volume)on 09-18-2021 Calcium [Mass/Vol] 9.9 mg/dL 8.5-10.1 [facility] Work Phone: Serum or plasma creatinine m easurement (mass/volume)on 09-18-2021 Creatinine [Mass/Vol] 0.96 mg/dL 0.55-1.02 [facility] Work Phone: Comment on above: The validity of the calculated GFR & GFRAA in patients over 70 years has not been determined. Clinical correlation is essential. Serum or plasma urea nitroge n measurement (mass/volume)on 09-18-2021 Urea nitrogen [Mass/Vol] 37 mg/dL 7-18 [facility] Work Phone: Serum or plasma uric acid me asurement (mass/volume)on 09-18-2021 Urate [Mass/Vol] 5.0 mg/dL 2.6-6.0 [facility] Work Phone: Comment on above: The drugs N-Acetylcy steine and Metamizole may falsely depress this assay. Thin prep Papanicolaou smear with manual screeningon 09-18-2021 Thin prep Papanicolaou smear with manual screening 17 U/L 15-37 [facility] Work Phone: Thin prep Papanicolaou smear with manual screening 9 5-15 [facility] Work Phone: Thin prep Papanicolaou smear with manual screening 172 U/L 84-246 [facility] Work Phone: Glucose Glucometer (BldC) [M ass/Vol]on 09-05-2021 Glucose [Mass/Vol] 201 mg/dL 74-106 [facility] Work Phone: Comment on above: MANAGEMENT OF PATIEN T CARE PER NURSING PROTOCOL No Panel Informationon 08-29 Radiology Study observation (narrative) [facility] XR Knee - right 4 Viewson IMPRESSION: No acute cardiopulmonary disease identified. No left-sided rib fractures. Osteoarthrosis of the right knee. Bench Assembler Operator: MALINDA Transcribe Date/Time: Aug 29 2021 12:33P [...] rib fractures. Osteoarthrosis of the right knee. Bench Assembler Operator: [facility] Transcribe Date/Time: Aug 29 2021 12:33P Dictated by : CLARISSA CASTREJON MD This examination was interpreted and the report reviewed and electronically signed by: CLARISSA CASTREJON MD on Aug 29 2021 12:35PM EST [facility] XR Ribs - left Views and [facility] st PAon 08-29-2021 IMPRESSION: No acute cardiopulmonary disease identified. No left-sided rib fractures. Osteoarthrosis of the right knee. Bench Assembler Operator: [facility] Transcribe Date/Time: Aug 29 2021 12:33P Dictated [...] space. [id number] _[id number]_DIVIS ION OF RADIOLOGY Provider, [facility] - 08/29/2021 * * *Final Report* [...] rib fractures. Osteoarthrosis of the right knee. Bench Assembler Operator: MALINDA Transcribe Date/Time: Aug 29 2021 12:33P Dictated by : CLARISSA CASTREJON MD This examination was interpreted and the report reviewed and electronically signed by: CLARISSA CASTREJON MD on Aug 29 2021 12:35PM EST [facility] XR Ribs - left Views and Kate st PAOrdered By: Ccf Provider on 08-29-2021 [facility] Absolute lymphocyte counton 04-23-2021 Lymphocytes Auto (Unsp spec) [#/Vol] 0.79 10*3/uL 0.83-4.51 [facility] Work Phone: Basophil percentageon 2021 Basophils/100 WBC (Bld) 0.0 % 0-1 [facility] Work Phone: Chloride [Moles/Vol] 98 mmol/L 98-107 [facility] Work Phone: Eosinophils/100 WBC (Bld) 0.0 % 0-5 [facility] Work Phone: Glucose [Mass/Vol] 352 mg/dL 74-106 [facility] Work Phone: Comment on above: Glucose result great er than or equal to 200 mg/dLsuggests DIABETES MELLITUS per A.D.A. criteria. Neutrophils (Bld) [#/Vol] 5.2 10*3/uL 2.0-7.7 [facility] Work Phone: Neutrophils/100 WBC (Bld) 82.6 % 47-70 [facility] Work Phone: Potassium [Moles/Vol] 4.2 mmol/L 3.5-5.1 [facility] Work Phone: Sodium [Moles/Vol] 134 mmol/L 136-145 [facility] Work Phone: WBC (Bld) [#/Vol] 6.3 10*3/uL 4.4-11.0 [facility] Work Phone: Blood erythrocytes count (nu mber/volume)on 04-23-2021 RBC (Bld) [#/Vol] 4.53 10*6/uL 4.2-5.4 [facility] Work Phone: Blood hemoglobin measurement (mass/volume)on 04-23-2021 Hemoglobin (Bld) [Mass/Vol] 12.5 g/dL 12.0-15.0 [facility] Work Phone: Blood lymphocytes/100 leukoc yteson 04-23-2021 Lymphocytes/100 WBC (Bld) 12.6 % 19-41 [facility] Work Phone: Blood monocytes/100 leukocyt eson 04-23-2021 Monocytes/100 WBC (Bld) 4.0 % 0-10 [facility] Work Phone: Blood platelet mean volumeon 04-23-2021 Platelet mean volume (Bld) [Entitic vol] 9.6 fL 6.2-12.0 [facility] Work Phone: Determination of erythrocyte mean corpuscular volume (MCV)on 04-23-2021 MCV (RBC) [Entitic vol] 85.2 fL 81-99 [facility] Work Phone: Glucose Glucometer (dC) [M ass/Vol]on 04-23-2021 Glucose [Mass/Vol] 330 mg/dL 70-110 [facility] Work Phone: Comment on above: MANAGEMENT OF PATIEN T CARE PER NURSING PROTOCOL Hematocrit Auto (Bld) [Volum e fraction]on 04-23-2021 Hematocrit (Bld) [Volume fraction] 38.6 % 37-47 [facility] Work Phone: Laboratory - Chemistry and C hemistry - challengeon 04-23-2021 CO2 [Moles/Vol] 28.0 mmol/L 21.0-32.0 [facility] Work Phone: Urea nitrogen/Creatinine [Mass ratio] 44.7 mg/mg 10-20 [facility] Work Phone: Laboratory - Hematology and Cell countson 04-23-2021 Erythrocyte distribution width (RBC) [Entitic vol] 44.5 fL 35.1-43.9 [facility] Work Phone: Erythrocyte distribution width (RBC) [Ratio] 14.3 % 11.6-14.6 [facility] Work Phone: Immature granulocytes/100 WBC (Bld) 0.800 % 0.0-0.9 [facility] Work Phone: Comment on above: IG% - Immature Granu locytes (promyelocytes, myelocytes and metamyelocytes) > 1% indicates that a LEFT SHIFT is Present. MCH (RBC) [Entitic mass] 27.6 pg 27.0-32.0 [facility] Work Phone: Nucleated RBC/100 WBC (Bld) [Ratio] 0 % 0-5 [facility] Work Phone: MCHC Auto (RBC) [Mass/Vol]on 04-23-2021 MCHC (RBC) [Mass/Vol] 32.4 g/dL 32-36 [facility] Work Phone: No Panel Informationon 04-23 Estimated Creatinine Clearance Calc 97.20 ml/min [facility] Work Phone: Estimated GFR (MDRD) Amer 129 mL/min >60 [facility] Work Phone: Comment on above: GFR Calc Estimated GFR (MDRD) Non-Af Amer 107 mL/min >60 [facility] Work Phone: Comment on above: Non- GFR Calc Platelets bldon 04-23-2021 Platelets (Bld) [#/Vol] 241 10*3/uL 150-450 [facility] Work Phone: Serum or plasma calcium cherelle urement (mass/volume)on 04-23-2021 Calcium [Mass/Vol] 9.5 mg/dL 8.5-10.1 [facility] Work Phone: Serum or plasma creatinine m easurement (mass/volume)on 04-23-2021 Creatinine [Mass/Vol] 0.63 mg/dL 0.55-1.02 [facility] Work Phone: Comment on above: The validity of the calculated GFR & GFRAA in patients over 70 years has not been determined. Clinical correlation is essential. Serum or plasma urea nitroge n measurement (mass/volume)on 04-23-2021 Urea nitrogen [Mass/Vol] 28 mg/dL 7-18 [facility] Work Phone: Thin prep Papanicolaou smear with manual screeningon 04-23-2021 Thin prep Papanicolaou smear with manual screening 8 5-15 [facility] Work Phone: Basophil percentageon 2021 Bilirubin [Mass/Vol] 0.40 mg/dL 0.20-1.00 [facility] Work Phone: Comment on above: For patients on eltr ombopag therapy, use of Dimension [place] TBIL is not recommended. Protein [Mass/Vol] 7.0 g/dL 6.4-8.2 [facility] Work Phone: Direct bilirubinon 2 Bilirubin.direct [Mass/Vol] 0.09 mg/dL 0.00-0.30 [facility] Work Phone: Laboratory - Chemistry and C hemistry - challengeon 04-22-2021 ALP [Catalytic activity/Vol] 67 U/L 45-117 [facility] Work Phone: ALT [Catalytic activity/Vol] 19 U/L 13-56 [facility] Work Phone: Globulin (S) [Mass/Vol] 4.1 g/dL 2.2-4.2 [facility] Work Phone: Magnesium [Mass/Vol] 2.0 mg/dL 1.6-2.6 [facility] Work Phone: Serum or plasma albumin cherelle urement (mass/volume)on 04-22-2021 Albumin [Mass/Vol] 2.9 g/dL 3.2-5.0 [facility] Work Phone: Thin prep Papanicolaou smear with manual screeningon 04-22-2021 Thin prep Papanicolaou smear with manual screening 9 U/L 15-37 [facility] Work Phone: Basophil percentageon 2021 Basophil percentage Not Reportable [facility] Work Phone: Laboratory - Chemistry and C hemistry - challengeon 04-20-2021 Natriuretic peptide B (Bld) [Mass/Vol] 72.8 pg/mL 0-100 [facility] Work Phone: Free T4 [Mass/Vol] 1.21 ng/dL 0.76-1.46 [facility]: Laboratory - Microbiology an d Antimicrobial susceptibilityon 04-20-2021 SARS-CoV-2 (COVID-19) RNA RUTH+probe Ql (Unsp spec) Not detected Not Detect [facility] Work Phone: Comment on above: Normal Reference Ran ge: Not DetectedMethod:(RT-PCR) real-time reverse transcriptase PCRLuminex Surf Air Instrument*The Food and Drug Administration (FDA) has issued an Emergency Use Authorization (EAU) for the Surf Air SARS-CoV-2 Assay for the rapid detection of [...] Informationon 04-20 Anti-Nuclear Antibody Screen Negative Negative [facility] Work Phone: Comment on above: Performed at: [facility] [address] [id number] Director: Tarik Whitley PhD, Phone: [phone] Centrome[employer] B Antibody Not Reportable [facility] Work Phone: LUNCHROOM MONITOR Antibody Not Reportable [facility] Work Phone: Thyroid Stimulating Hormone (TSH) 0.58 uIU/mL 0.358-3.74 [facility] Work Phone: Troponin I High Sensitivity 10 pg/mL 3.0-54.0 [facility] Work Phone: Comment on above: Please Note: [place] t Units and Gender Specific Reference Ranges. For more information see Policy Stat Procedure [place] High Sensitivity Troponin (TNIH) and attachments. Serum DNA double strand anti body assay (units/volume)on 04-20-2021 DNA double strand Ab Qn (S) Not Reportable [facility] Work Phone: Serum Patti-1 antibody assay (u nits/volume)on 04-20-2021 Patti-1 extractable nuclear Ab Qn (S) Not Reportable [facility] Work Phone: Serum Scl-70 extractable nuc lear antibody assay (units/volume)on 04-20-2021 SCL-70 extractable nuclear Ab Qn (S) Not Reportable [facility] Work Phone: Serum Rouse extractable nucl ear antibody detectionon 04-20-2021 Rouse extractable nuclear Ab Ql (S) Not Reportable [facility] Work Phone: Serum cyclic citrullinated p eptide IgG antibody assay (units/volume)on 04-20-2021 Cyclic citrullinated peptide IgG Qn 6 units [facility] Work Phone: Comment on above: Negative <20 Weak po sitive 20 - 39 Moderate positive 40 - 59 Strong positive >59Performed at: - [facility] [address] [id number] Director: Castro Medina MD, Phone: [phone] Serum or plasma albumin/glob ulin mass ratioon 04-20-2021 Albumin/Globulin [Mass ratio] 0.7 {ratio} 0.9-2.4 [facility] Work Phone: Serum procalcitonin measurem enton 04-20-2021 Procalcitonin [Mass/Vol] 0.13 ng/mL 0.00-0.09 [facility] Work Phone: Comment on above: A procalcitonin [...] factor Ql (S) < 10.0 IU/mL <15 [facility] Work Phone: Basophil percentageon 2021 Lactate [Moles/Vol] 1.7 mmol/L 0.4-2.0 [facility] Work Phone: No Panel Informationon 04-19 Methicillin-Resist S.aureus DNA PCR Negative Negative [facility] Work Phone: Streptococcus pneumoniae Antigen (M [facility] Work Phone: Absolute lymphocyte counton 04-09-2021 Lymphocytes Auto (Unsp spec) [#/Vol] 0.85 10*3/uL 0.83-4.51 [facility] Work Phone: Basophil percentageon 2021 Basophils/100 WBC (Bld) 0.5 % 0-1 [facility] Work Phone: Bilirubin [Mass/Vol] 0.30 mg/dL 0.20-1.00 [facility] Work Phone: Comment on above: For patients on eltr ombopag therapy, use of Dimension [place] TBIL is not recommended. Chloride [Moles/Vol] 101 mmol/L 98-107 [facility] Work [facility]: Eosinophils/100 WBC (Bld) 1.2 % 0-5 [facility] Work Phone: Glucose [Mass/Vol] 346 mg/dL 74-106 [facility] Work Phone: Comment on above: Glucose result great er than or equal to 200 mg/dLsuggests DIABETES MELLITUS per A.D.A. criteria.Please note revised GLUCOSE reference range effective 2017. Neutrophils (Bld) [#/Vol] 2.8 10*3/uL 2.0-7.7 [facility] Work Phone: Neutrophils/100 WBC (Bld) 66.8 % 47-70 [facility] Work Phone: Potassium [Moles/Vol] 4.3 mmol/L 3.5-5.1 [facility] Work Phone: Protein [Mass/Vol] 6.6 g/dL 6.4-8.2 [facility] Work Phone: Sodium [Moles/Vol] 135 mmol/L 136-145 [facility] Work Phone: WBC (Bld) [#/Vol] 4.2 10*3/uL 4.4-11.0 [facility] Work Phone: Blood erythrocytes count (nu mber/volume)on 04-09-2021 RBC (Bld) [#/Vol] 3.32 10*6/uL 4.2-5.4 [facility]: Blood hemoglobin measurement (mass/volume)on 04-09-2021 Hemoglobin (Bld) [Mass/Vol] 9.0 g/dL 12.0-15.0 [facility] Work Phone: Blood lymphocytes/100 leukoc yteson 04-09-2021 Lymphocytes/100 WBC (Bld) 20.4 % 19-41 [facility] Work Phone: Blood monocytes/100 leukocyt eson 04-09-2021 Monocytes/100 WBC (Bld) 9.9 % 0-10 [facility] Work Phone: Blood platelet mean volumeon 04-09-2021 Platelet mean volume (Bld) [Entitic vol] 10.7 fL 6.2-12.0 [facility] Work Phone: Determination of erythrocyte mean corpuscular volume (MCV)on 04-09-2021 MCV (RBC) [Entitic vol] 88.0 fL 81-99 [facility] Work Phone: Glucose Glucometer (BldC) [M ass/Vol]on 04-09-2021 Glucose [Mass/Vol] 228 mg/dL 70-110 [facility] Work Phone: Comment on above: MANAGEMENT OF PATIEN T CARE PER NURSING PROTOCOL Hematocrit Auto (Bld) [Volum e fraction]on 04-09-2021 Hematocrit (Bld) [Volume fraction] 29.2 % 37-47 [facility] Work Phone: Laboratory - Chemistry and C hemistry - challengeon 04-09-2021 ALP [Catalytic activity/Vol] 122 U/L 45-117 [facility] Work Phone: ALT [Catalytic activity/Vol] 50 U/L 13-56 [facility] Work Phone: CO2 [Moles/Vol] 26.0 mmol/L 21.0-32.0 [facility] Work Phone: Globulin (S) [Mass/Vol] 4.6 g/dL 2.2-4.2 [facility] Work Phone: Urea nitrogen/Creatinine [Mass ratio] 38.1 mg/mg 10-20 [facility] Work Phone: Laboratory - Hematology and Cell countson 04-09-2021 Erythrocyte distribution width (RBC) [Entitic vol] 45.1 fL 35.1-43.9 [facility] Work Phone: Erythrocyte distribution width (RBC) [Ratio] 14.5 % 11.6-14.6 [facility] Work Phone: Immature granulocytes/100 WBC (Bld) 1.200 % 0.0-0.9 [facility] Work Phone: Comment on above: IG% - Immature Granu locytes (promyelocytes, myelocytes and metamyelocytes) > 1% indicates that a LEFT SHIFT is Present. MCH (RBC) [Entitic mass] 27.1 pg 27.0-32.0 [facility] Work Phone: Nucleated RBC/100 WBC (Bld) [Ratio] 0.5 % 0-5 [facility] Work Phone: MCHC Auto (RBC) [Mass/Vol]on 04-09-2021 MCHC (RBC) [Mass/Vol] 30.8 g/dL 32-36 [facility] Work Phone: No Panel Informationon 04-09 Estimated Creatinine Clearance Calc 90.05 ml/min [facility] Work Phone: Estimated GFR (MDRD) Amer 118 mL/min >60 [facility] Work Phone: Comment on above: GFR Calc Estimated GFR (MDRD) Non-Af Amer 97 mL/min >60 [facility] Work Phone: Comment on above: Non- GFR Calc Platelets bldon 04-09-2021 Platelets (Bld) [#/Vol] 301 10*3/uL 150-450 [facility] Work Phone: Serum or plasma albumin cherelle urement (mass/volume)on 04-09-2021 Albumin [Mass/Vol] 2.0 g/dL 3.2-5.0 [facility] Work Phone: Serum or plasma albumin/glob ulin mass ratioon 04-09-2021 Albumin/Globulin [Mass ratio] 0.4 {ratio} 0.9-2.4 [facility] Work Phone: [phone] Serum or plasma calcium cherelle urement (mass/volume)on 04-09-2021 Calcium [Mass/Vol] 8.7 mg/dL 8.5-10.1 [facility] Work Phone: Serum or plasma creatinine m easurement (mass/volume)on 04-09-2021 Creatinine [Mass/Vol] 0.68 mg/dL 0.55-1.02 [facility] Work Phone: Comment on above: The validity of the calculated GFR & GFRAA in patients over 70 years has not been determined. Clinical correlation is essential. Serum or plasma urea nitroge n measurement (mass/volume)on 04-09-2021 Urea nitrogen [Mass/Vol] 26 mg/dL 7-18 [facility] Work Phone: Thin prep Papanicolaou smear with manual screeningon 04-09-2021 Thin prep Papanicolaou smear with manual screening 36 U/L 15-37 [facility] Work Phone: Thin prep Papanicolaou smear with manual screening 8 5-15 [facility] Work Phone: Gram stain for investigation of transfusion reactionon 04-08-2021 Microscopic observation Gram stain Nom (Unsp spec) [facility] Work Phone: No Panel Informationon 04-08 SARS-CoV-2 Antigen (Rapid) [facility] Work Phone: Review by pathologiston Pathologist review Jose Angel (Unsp spec) [Interp] Reviewed [facility] Work Phone: Comment on above: Previous reported re sult: Uma mora Edited by: RGOJOANNE on 04/08/21:1404Leukopenia and Normocytic anemia.Clinical correlation necessary.Codey [place] M.D. 04/08/21 AMENDED REPORT 04/08/21 1404 PATH REV previously reported as: Uma mora Basophil percentageon 2021 Lactate [Moles/Vol] 0.9 mmol/L 0.4-2.0 [facility] Work Phone: INR in Blood by Coagulation assayon 04-07-2021 INR Coag (Bld) [Relative time] 1.1 {INR} [facility] Work Phone: Laboratory - Chemistry and C hemistry - challengeon 04-07-2021 CK [Catalytic activity/Vol] 23 U/L 26-192 [facility] Work Phone: Magnesium [Mass/Vol] 1.6 mg/dL 1.6-2.6 [facility] Work Phone: Natriuretic peptide B (Bld) [Mass/Vol] 385.2 pg/mL 0-100 [facility] Work Phone: Laboratory - Coagulationon 0 04-07-2021 PT Coag (PPP) [Time] 13.8 s 11.7-14.9 [facility] Work Phone: Laboratory - Microbiology an d Antimicrobial susceptibilityon 04-07-2021 Bacteria identified Cx Nom (Bld) No growth in 5 days. [facility] Work Phone: No Panel Informationon 04-07 Streptococcus pneumoniae Antigen (M [facility] Work Phone: Troponin I High Sensitivity 37 pg/mL 3.0-54.0 [facility] Work Phone: Comment on above: Please Note: [place] t Units and Gender Specific Reference Ranges. For more information see Policy Stat Procedure [place] High Sensitivity Troponin (TNIH) and attachments. D-Dimer Quantitative (PE/DVT) 3.96 FEU/ug/m 0.27-0.49 [facility] Work Phone: Comment on above: D-Dimer ELEVATED (>0 .49): Additional studies and clinicalassessments are indicated to conclude diagnosis of:Deep Vein Thrombosis (DVT) or Pulmonary Embolism (PE)CRITICAL VALUE VERIFIED. CALLED TO BULL ROMERO04/07/211903 Pippa Levi.RESULTS READ BACK BY SAME . Fibrinogen > 900 mg/dl 203-444 [facility] Work Phone: Serum or plasma C reactive p rotein measurement (mass/volume)on 04-07-2021 CRP [Mass/Vol] 246.00 mg/L 0.0-3.0 [facility] Work Phone: Comment on above: C-Reactive Protein ( CRP) provides useful information for thediagnosis, therapy and monitoring of inflammatory processesand associated diseases. For the evaluation of Relative Riskfor Cardiovascular Disease, a High Sensitivity CRP (HSCRP)should be ordered. Serum or plasma acetone cherelle urement (mass/volume)on 04-07-2021 Acetone [Mass/Vol] Negative NEG [facility] Work Phone: Serum procalcitonin measurem enton 04-07-2021 Procalcitonin [Mass/Vol] 1.08 ng/mL 0.00-0.09 [facility] Work Phone: Comment on above: A procalcitonin [...] smear with manual screening 346 U/L 84-246 [facility] Work Phone: Basophil percentageon 2020 Chloride [Moles/Vol] 108 mmol/L 98-107 [facility] Work Phone: Glucose [Mass/Vol] 152 mg/dL 74-106 [facility] Work Phone: Comment on above: Fasting Glucose resu lt greater than or equal to 126 mg/dL suggests DIABETES MELLITUS per A.D.A. criteria.Please note revised GLUCOSE reference range effective 2017. Potassium [Moles/Vol] 3.6 mmol/L 3.5-5.1 [facility] Work Phone: Sodium [Moles/Vol] 141 mmol/L 136-145 [facility] Work Phone: Glucose Glucometer (BldC) [M ass/Vol]on 03-24-2021 Glucose [Mass/Vol] 209 mg/dL 70-110 [facility] Work Phone: Comment on above: MANAGEMENT OF PATIEN T CARE PER NURSING PROTOCOL Laboratory - Chemistry and C hemistry - challengeon 03-24-2021 CO2 [Moles/Vol] 26.0 mmol/L 21.0-32.0 [facility] Work Phone: Urea nitrogen/Creatinine [Mass ratio] 10.1 mg/mg 10-20 [facility] Work Phone: No Panel Informationon 03-24 Estimated Creatinine Clearance Calc 146.91 ml/min [facility] Work Phone: Estimated GFR (MDRD) Amer 221 mL/min >60 [facility] Work Phone: Comment on above: GFR Calc Estimated GFR (MDRD) Non-Af Amer 182 mL/min >60 [facility] Work Phone: Comment on above: Non- GFR Calc Serum or plasma calcium cherelle urement (mass/volume)on 03-24-2021 Calcium [Mass/Vol] 8.2 mg/dL 8.5-10.1 [facility] Work Phone: Serum or plasma creatinine m easurement (mass/volume)on 03-24-2021 Creatinine [Mass/Vol] 0.40 mg/dL 0.55-1.02 [facility] Work Phone: Comment on above: The validity of the calculated GFR & GFRAA in patients over 70 years has not been determined. Clinical correlation is essential. Serum or plasma urea nitroge n measurement (mass/volume)on 03-24-2021 Urea nitrogen [Mass/Vol] 4 mg/dL 7-18 [facility] Work Phone: Thin prep Papanicolaou smear with manual screeningon 03-24-2021 Thin prep Papanicolaou smear with manual screening 7 5-15 [facility] Work Phone: Vancomycin troughon 03-24-20 Vancomycin trough [Mass/Vol] 3.6 ug/mL 5.0-15.0 [facility] Work Phone: Comment on above: VANCOMYCIN STANDARED DRUG THERAPY TROUGH LEVEL: 5.0 - 15.0 mg/L VANCOMYCIN HIGH INTENSITY THERAPY TROUGH LEVEL: 15.0 - 20.0 mg/L High Intensity therapy recommended for serious lifethreatening infections include:- Vjxdrozpxl-Dywnrwqrdhgj-Kmwcrygva (Ventilator/Healtcare Associated)-Sepsis PLEASE CONTACT PHARMACY SERVICES (#[id number]) FOR INTERPRETATIONOF RESULTS. Absolute lymphocyte counton 03-23-2021 Lymphocytes Auto (Unsp spec) [#/Vol] 0.82 10*3/uL 0.83-4.51 [facility] Work Phone: [phone] Basophil percentageon 2020 Neutrophils (Bld) [#/Vol] 5.5 10*3/uL 2.0-7.7 [facility] Work Phone: WBC (Bld) [#/Vol] 7.5 10*3/uL 4.4-11.0 [facility] Work Phone: [phone] Blood band neutrophil count as percentage of total leukocyteson 03-23-2021 Band form neutrophils/100 WBC (Bld) 11 % 0-5 [facility] Work Phone: Blood erythrocytes count (nu mber/volume)on 03-23-2021 RBC (Bld) [#/Vol] 3.90 10*6/uL 4.2-5.4 [facility] Work Phone: [phone] Blood hemoglobin measurement (mass/volume)on 03-23-2021 Hemoglobin (Bld) [Mass/Vol] 11.2 g/dL 12.0-15.0 [facility] Work Phone: Blood lymphocytes/100 leukoc yteson 03-23-2021 Lymphocytes/100 WBC (Bld) 11 % 19-41 [facility] Work Phone: Blood metamyelocytes/100 marquise kocyteson 03-23-2021 Metamyelocytes/100 WBC (Bld) 9 % 0-1 [facility] Work Phone: Blood monocytes/100 leukocyt eson 03-23-2021 Monocytes/100 WBC (Bld) 6 % 0-10 [facility] Work Phone: Blood platelet adequacy dete ction by light microscopyon 03-23-2021 Platelets LM Ql (Bld) SLT DEC ADEQ [facility] Work Phone: Blood platelet mean volumeon 03-23-2021 Platelet mean volume (Bld) [Entitic vol] 9.7 fL 6.2-12.0 [facility] Work Phone: Blood segmented neutrophils/ 100 leukocyteson 03-23-2021 Segmented neutrophils/100 WBC (Bld) 63 % 47-70 [facility] Work Phone: Determination of erythrocyte mean corpuscular volume (MCV)on 03-23-2021 MCV (RBC) [Entitic vol] 80.5 fL 81-99 [facility] Work Phone: Hematocrit Auto (Bld) [Volum e fraction]on 03-23-2021 Hematocrit (Bld) [Volume fraction] 31.4 % 37-47 [facility] Work Phone: Laboratory - Hematology and Cell countson 03-23-2021 Anisocytosis Ql (Bld) 1+ [facility] Work Phone: Erythrocyte distribution width (RBC) [Entitic vol] 38.2 fL 35.1-43.9 [facility] Work Phone: Erythrocyte distribution width (RBC) [Ratio] 13.2 % 11.6-14.6 [facility] Work Phone: MCH (RBC) [Entitic mass] 28.7 pg 27.0-32.0 [facility] Work Phone: MCHC Auto (RBC) [Mass/Vol]on 03-23-2021 MCHC (RBC) [Mass/Vol] 35.7 g/dL 32-36 [facility] Work Phone: No Panel Informationon 03-23 Neutrophils (%) (Auto) Not Reportable [facility] Work Phone: Platelets bldon 03-23-2021 Platelets (Bld) [#/Vol] 103 10*3/uL 150-450 [facility] Work Phone: Review by pathologiston 03-06 Pathologist review Jose Angel (Unsp spec) [Interp] Reviewed [facility] Work Phone: Comment on above: Previous reported re sult: Uma mora Edited by: ELAN on 03/26/21:923Microcytic anemia.Mild Thrombocytopenia.Clinical correlation suggested.Manuel Gold D.O. 03/26/21 AMENDED REPORT 03/26/21 0924 PATH REV previously reported as: Uma mora Total cell counton Cells counted Molgen (Bld/Tiss) [#] 100 MANUAL DIFF [facility] Work Phone: Laboratory - Hematology and Cell countson 03-22-2021 Myelocytes/100 WBC (Bld) 1 % 0-0 [facility] Work Phone: RBC morphologyon 03-22-2021 RBC morphology finding Nom (Bld) NORM C+C NORMAL NORM C&C [facility] Work Phone: Whole blood hemoglobin A1c/t otal hemoglobin ratio (mass fraction)on 03-22-2021 HbA1c (Bld) [Mass fraction] 13.9 % 3.8-5.6 [facility] Work Phone: Comment on above: Normal < 5.7 % Predi abetic 5.7 - 6.4 % Diabetic >or= 6.5 % Please note range changes. Blood promyelocytes/100 leuk ocyteson 03-21-2021 Promyelocytes/100 WBC (Bld) 2 % 0-0 [facility] Work Phone: No Panel Informationon 03-21 Atypical Lymphocytes 1+ % [facility] Work Phone: Thyroid Stimulating Hormone (TSH) 0.37 uIU/mL 0.358-3.74 [facility] Work Phone: [phone] Basophil percentageon 2020 Eosinophils/100 WBC (Bld) 0.1 % 0-5 [facility] Work Phone: Blood lymphocytes/100 leukoc yteson 03-20-2021 Lymphocytes/100 WBC (Bld) 10.0 % 19-41 [facility] Work Phone: Blood monocytes/100 leukocyt eson 03-20-2021 Monocytes/100 WBC (Bld) 11.5 % 0-10 [facility] Work Phone: [phone] Laboratory - Hematology and Cell countson 03-20-2021 Basophils/100 WBC (Unsp spec) 0.6 % 0-1 [facility] Work Phone: [phone] Immature granulocytes/100 WBC (Bld) 3.900 % 0.0-0.9 [facility] Work Phone: Comment on above: IG% - Immature Granu locytes (promyelocytes, myelocytes and metamyelocytes) > 1% indicates that a LEFT SHIFT is Present. Nucleated RBC/100 WBC (Bld) [Ratio] 0 % 0-5 [facility] Work Phone: Laboratory - Microbiology an d Antimicrobial susceptibilityon 03-20-2021 Bacteria identified Cx Nom (Bld) No growth in 5 days. [facility] Work Phone: Amorphous sediment detection in urine sediment by light microscopyon 03-19-2021 Amorphous sediment LM Ql (Urine sed) 1+ [facility] Work Phone: [phone] Basophil percentageon 2020 Basophil percentage 0-5 SEEN /hpf [facility] Work Phone: [phone] Bilirubin [Mass/Vol] 0.60 mg/dL 0.20-1.00 [facility] Work Phone: Comment on above: For patients on eltr ombopag therapy, use of Dimension [place] TBIL is not recommended. Protein [Mass/Vol] 7.1 g/dL 6.4-8.2 [facility] Work Phone: Bilirubin Test strip Ql (U)o n 03-19-2021 Bilirubin Ql (U) Negative Negative [facility] Work Phone: Blood manual differential co mment interpretation (narrative result)on 03-19-2021 Manual differential comment Jose Angel (Bld) [Interp] SCANNED [facility] Work Phone: Comment on above: MONOCYTOSIS NOTED HCO3 (BldA) [Moles/Vol]on HCO3 (Bld) [Moles/Vol] 4 mmol/L [facility] Work Phone: Hyaline casts LM.LPF (Urine sed) [#/Area]on 03-19-2021 Hyaline casts (Urine sed) [#/Area] 5 /[LPF] [facility] Work Phone: Ketones Test strip Ql (U)on 03-19-2021 Ketones Ql (U) 150 mg/dl Negative [facility] Work Phone: Comment on above: CRITICAL VALUE VERIF IED. CALLED TO JANE [id number]/19/[id number] Eulalio López.RESULTS READ BACK BY SAME . CRITICAL VALUE *H Laboratory - Chemistry and C hemistry - challengeon 03-19-2021 ALP [Catalytic activity/Vol] 124 U/L 45-117 [facility] Work Phone: ALT [Catalytic activity/Vol] 30 U/L 13-56 [facility] Work Phone: Globulin (S) [Mass/Vol] 4.7 g/dL 2.2-4.2 [facility] Work Phone: Magnesium [Mass/Vol] 2.6 mg/dL 1.6-2.6 [facility] Work Phone: Comment on above: Slight Hemolysis, Re sult may be falsely increased. Mucus LM Ql (Urine sed)on Mucus Ql (Urine sed) 0 SEEN /hpf [facility] Work Phone: Nitrite Test strip Ql (U)on 03-19-2021 Nitrite Ql (U) Negative Negative [facility] Work Phone: No Panel Informationon 03-19 Bed Mix Venous Bld PCO2 at Pat Temp 13.9 mmHg 41-51 [facility] Work Phone: Bld Gas Crit Called To/Read Back By Yes [facility] Work Phone: Blood Gas Notified Time 21:29:48 [facility] Work Phone: Blood Gas Notified Whom Le [facility] Work Phone: Comment on above: Previous reported re sult: Lea Edited by: WILIAN on 03/20/21:0622 AMENDED REPORT 03/20/21621 Results To previously reported as: Lea Blood Gas Specimen Type ROSEMARIE [facility] Work Phone: Oxygen Delivery Device Room Air [facility] Work Phone: Venous Blood Base Excess -26 mmol/L -1.0-3.5 [facility] Work Phone: Venous Blood Total Carbon Dioxide < 5 mmol/L 23-33 [facility] Work Phone: SARS-CoV-2 Antigen (Rapid) SARS-CoV-2 (COVID 19) [facility] Work Phone: PO2 venouson 03-19-2021 Oxygen (BldV) [Partial pressure] 61 mm[Hg] 25-40 [facility] Work Phone: Protein Test strip Ql (U)on 03-19-2021 Protein Ql (U) 100 mg/dl Negative [facility] Work Phone: Serum or plasma C reactive p rotein measurement (mass/volume)on 03-19-2021 CRP [Mass/Vol] 73.00 mg/L 0.0-3.0 [facility] Work Phone: Comment on above: C-Reactive Protein ( CRP) provides useful information for thediagnosis, therapy and monitoring of inflammatory processesand associated diseases. For the evaluation of Relative Riskfor Cardiovascular Disease, a High Sensitivity CRP (HSCRP)should be ordered. Serum or plasma acetone cherelle urement (mass/volume)on 03-19-2021 Acetone [Mass/Vol] LARGE NEG [facility] Work Phone: Serum or plasma albumin cherelle urement (mass/volume)on 03-19-2021 Albumin [Mass/Vol] 2.4 g/dL 3.2-5.0 [facility] Work Phone: Serum or plasma albumin/glob ulin mass ratioon 03-19-2021 Albumin/Globulin [Mass ratio] 0.5 {ratio} 0.9-2.4 [facility] Work Phone: Squamous epithelial cells de tection in urine sediment by light microscopyon 03-19-2021 Epithelial cells.squamous LM Ql (Urine sed) 0 SEEN /hpf [facility] Work Phone: Thin prep Papanicolaou smear with manual screeningon 03-19-2021 Thin prep Papanicolaou smear with manual screening 35 U/L 15-37 [facility] Work Phone: Comment on above: Slight Hemolysis, Re sult may be falsely increased. Urine blood detectionon 03-06 RBC Ql (U) 250 /ul Negative [facility] Work Phone: RBC Ql (U) 0 SEEN /hpf [facility] Work Phone: Urine clarityon 03-19-2021 Clarity (U) Clear Clear [facility] Work Phone: Urine color determinationon 03-19-2021 Color (U) Yellow Yellow [facility] Work Phone: Urine glucose detectionon Glucose Ql (U) 1000 mg/dl Normal [facility] Work Phone: Urine leukocyte esterase det ection by dipstickon 03-19-2021 Leukocyte esterase Test strip Ql (U) Negative Negative [facility] Work Phone: Urine pHon 03-19-2021 pH (U) 5.0 [pH] [facility] Work Phone: Urine sediment bacteria coun t by microscopy (number/high power field)on 03-19-2021 Bacteria LM.HPF (Urine sed) [#/Area] 1 /[HPF] None Seen [facility] Work Phone: Urine specific gravity measu rementon 03-19-2021 Specific gravity (U) [Rel density] 1.025 [facility] Work Phone: Urobilinogen Auto test strip Ql (U)on 03-19-2021 Urobilinogen Ql (U) Normal mg/dl Normal [facility] Work Phone: Vital signson 03-19-2021 Oxygen saturation in Blood 80 % 50-70 [facility] Work Phone: pH measurementon 03-19-2021 pH (Unsp spec) 7.06 [pH] 7.32-7.42 [facility] Work Phone: No Panel Information [facility] Vital Signs Date Time Vital Sign Value Performing Clinician Facility 10-19-2024 13:43-0400 Diastolic blood pressure 73 mm[Hg] Dr. Sapna Ray DO Work Phone: [facility] 10-19-2024 13:43-0400 Heart rate 122 /min Dr. Sapna Ray DO Work Phone: [facility] 10-19-2024 13:43-0400 Respiratory rate 18 /min Dr. Sapna Ray DO Work Phone: [facility] 10-19-2024 13:43-0400 Systolic blood pressure 124 mm[Hg] Dr. Sapna Ray DO Work Phone: [facility] 10-19-2024 10:16-0400 Body height 165.[address] Sapna Ray DO Work Phone: [facility] 10-19-2024 10:16-0400 Body weight 89.[address] Sapna Ray DO Work Phone: [facility] 10-19-2024 09:20-0400 Body temperature 98 [degF] Dr. Sapna Ray DO Work Phone: [facility] 10-19-2024 09:20-0400 SaO2% (BldA) [Mass fraction] 95 % Dr. Sapna Ray DO Work Phone: [facility] 10-18-2024 15:01-0400 Body mass index (BMI) [Ratio] 32.8 kg/m2 Dr. Sapna Ray DO Work Phone: [facility] 10-18-2024 14:00-0400 Body temperature 97.4 [degF] Dr. Sapna Ray DO Work Phone: [facility] 10-18-2024 14:00-0400 Diastolic blood pressure 76 mm[Hg] Dr. Sapna Ray DO Work Phone: [facility] 10-18-2024 14:00-0400 Heart rate 111 /min Dr. Sapna Ray DO Work Phone: [facility] 10-18-2024 14:00-0400 Respiratory rate 20 /min Dr. Sapna Ray DO Work Phone: [facility] 10-18-2024 14:00-0400 SaO2% (BldA) [Mass fraction] 93 % Dr. Sapna Ray DO Work Phone: [facility] 10-18-2024 14:00-0400 Systolic blood pressure 134 mm[Hg] Dr. Sapna Ray DO Work Phone: [facility] 10-18-2024 09:59-0400 Body height 165.[address] Sapna Ray DO Work Phone: [facility] 10-18-2024 09:59-0400 Body mass index (BMI) [Ratio] 32.8 kg/m2 Dr. Sapna Ray DO Work Phone: [facility] 10-18-2024 09:59-0400 Body weight 89.[address] Sapna Ray DO Work Phone: [facility] 07-18-2024 09:53-0400 Body mass index (BMI) [Ratio] 30.14 kg/m2 Merry Medrano APRN.TABLET TESTER Work Phone: [facility] 07-18-2024 09:53-0400 Body temperature 98.29 [degF] Merry Merdano APRN.TABLET TE[employer] Work Phone: [facility] 07-18-2024 09:53-0400 Body weight 82.8 kg Merry Medrano APRN.TABLET TE[employer] Work Phone: [facility] 07-18-2024 09:53-0400 Diastolic blood pressure 78 mm[Hg] Merry Medrano APRN.TABLET TE[employer] Work Phone: [facility] 07-18-2024 09:53-0400 Heart rate 118 /min Merry Medrano APRN.TABLET [employer] Work Phone: [facility] 07-18-2024 09:53-0400 Respiratory rate 18 /min Merry Medrano APRN.TABLET TE[employer] Work Phone: [facility] 07-18-2024 09:53-0400 SaO2% (BldA) [Mass fraction] 98 % Merry Medrano APRN.TABLET [employer] Work Phone: [facility] 07-18-2024 09:53-0400 Systolic blood pressure 122 mm[Hg] Merry Medrano APRN.TABLET TE[employer] Work Phone: [facility] 03-30-2022 17:11-0500 Body temperature 97.8 [degF] Dr. Sapna Ray Work Phone: [facility] Work Phone: 03-30-2022 17:11-0500 Diastolic blood pressure 65 mm[Hg] Dr. Sapna Ray Work Phone: [facility] Work Phone: 03-30-2022 17:11-0500 Heart rate 88 /min Dr. Sapna Ray Work Phone: [facility] Work Phone: 03-30-2022 17:11-0500 Respiratory rate 16 /min Dr. Sapna Ray Work Phone: [facility] Work Phone: 03-30-2022 17:11-0500 SaO2% (BldA) [Mass fraction] 99 % Dr. Sapna Ray Work Phone: [facility] Work Phone: 03-30-2022 17:11-0500 Systolic blood pressure 115 mm[Hg] Dr. Sapna Ray Work Phone: [facility] Work Phone: 03-30-2022 13:49-0500 Body height 165.[address] Sapna Ray Work Phone: [facility] Work Phone: 03-30-2022 13:49-0500 Body mass index (BMI) [Ratio] 31.9 kg/m2 Dr. Sapna Ray Work Phone: [facility] Work Phone: 03-30-2022 13:49-0500 Body weight 87.[address] Sapna Ray Work Phone: [facility] Work Phone: 10-30-2021 15:41-0400 Diastolic blood pressure 75 mm[Hg] Dr. Sapna Ray Work Phone: [facility] Work Phone: 10-30-2021 15:41-0400 Systolic blood pressure 132 mm[Hg] Dr. Sapna Ray Work Phone: [facility] Work Phone: 10-30-2021 15:00-0400 Heart rate 91 /min Dr. Sapna Ray Work Phone: [facility] Work Phone: 10-30-2021 15:00-0400 Respiratory rate 19 /min Dr. Sapna Ray Work Phone: [facility] Work Phone: 10-30-2021 15:00-0400 SaO2% (BldA) [Mass fraction] 100 % Dr. Sapna Ray Work Phone: [facility] Work Phone: 10-30-2021 12:36-0400 Body height 165.[address] Sapna Ray Work Phone: [facility] Work Phone: 10-30-2021 12:36-0400 Body mass index (BMI) [Ratio] 31.8 kg/m2 Dr. Sapna Ray Work Phone: [facility] Work Phone: 10-30-2021 12:36-0400 Body temperature 97.5 [degF] Dr. Sapna Ray Work Phone: [facility] Work Phone: 10-30-2021 12:36-0400 Body weight 86.[address] Sapna Ray Work Phone: [facility] Work Phone: 09-05-2021 15:52-0400 Body height 165.[address] Sapna Ray Work Phone: [facility] Work Phone: 09-05-2021 15:52-0400 Body mass index (BMI) [Ratio] 31.6 kg/m2 Dr. Sapna Ray Work Phone: [facility] Work Phone: 09-05-2021 15:52-0400 Body temperature 98.1 [degF] Dr. Sapna Ray Work Phone: [facility] Work Phone: 09-05-2021 15:52-0400 Body weight 86.[address] Sapna Ray Work Phone: [facility] Work Phone: 09-05-2021 15:52-0400 Diastolic blood pressure 92 mm[Hg] Dr. Sapna Ray Work Phone: [facility] Work Phone: 09-05-2021 15:52-0400 Heart rate 152 /min Dr. Sapna Ray Work Phone: [facility] Work Phone: 09-05-2021 15:52-0400 Respiratory rate 18 /min Dr. Sapna Ray Work Phone: [facility] Work Phone: 09-05-2021 15:52-0400 SaO2% (BldA) [Mass fraction] 98 % Dr. Sapna Ray Work Phone: [facility] Work Phone: 09-05-2021 15:52-0400 Systolic blood pressure 119 mm[Hg] Dr. Sapna Ray Work Phone: [facility] Work Phone: 08-29-2021 11:30-0400 Body temperature 97.59 [degF] Júnior Alvarado MD Work Phone: [facility] 08-29-2021 11:30-0400 Diastolic blood pressure 70 mm[Hg] Júnior Alvarado MD Work Phone: [facility] 08-29-2021 11:30-0400 Heart rate 145 /min Júnior Alvarado MD Work Phone: [facility] 08-29-2021 11:30-0400 Respiratory rate 16 /min Júnior Alvarado MD Work Phone: [facility] 08-29-2021 11:30-0400 SaO2% (BldA) [Mass fraction] 97 % Júnior Alvarado MD Work Phone: [facility] 08-29-2021 11:30-0400 Systolic blood pressure 124 mm[Hg] Júnior Alvarado MD Work Phone: [facility] 07-09-2021 19:59-0400 Body height 165.[address] Sapna Ray Work Phone: [facility] Work Phone: 07-09-2021 19:59-0400 Body mass index (BMI) [Ratio] 31.6 kg/m2 Dr. Sapna Ray Work Phone: [facility] Work Phone: 07-09-2021 19:59-0400 Body temperature 96.9 [degF] Dr. Sapna Ray Work Phone: [facility] Work Phone: 07-09-2021 19:59-0400 Body weight 86.[address] Sapna Ray Work Phone: [facility] Work Phone: 07-09-2021 19:59-0400 Diastolic blood pressure 88 mm[Hg] Dr. Sapna Ray Work Phone: [facility] Work Phone: 07-09-2021 19:59-0400 Heart rate 120 /min Dr. Sapna Ray Work Phone: [facility] Work Phone: 07-09-2021 19:59-0400 Respiratory rate 18 /min Dr. Sapna Ray Work Phone: [facility] Work Phone: 07-09-2021 19:59-0400 SaO2% (BldA) [Mass fraction] 98 % Dr. Sapna Ray Work Phone: [facility] Work Phone: 07-09-2021 19:59-0400 Systolic blood pressure 130 mm[Hg] Dr. Sapna Ray Work Phone: [facility] Work Phone: 05-22-2021 07:53-0500 Heart rate 145 /min Dr. Sapna Ray Work Phone: [facility] Work Phone: 05-22-2021 07:53-0500 SaO2% (BldA) [Mass fraction] 93 % Dr. Sapna Ray Work Phone: [facility] Work Phone: 05-22-2021 07:12-0500 Body mass index (BMI) [Ratio] 30.4 kg/m2 Dr. Sapna Ray Work Phone: [facility] Work Phone: 05-22-2021 07:12-0500 Body temperature 98.2 [degF] Dr. Sapna Ray Work Phone: [facility] Work Phone: 05-22-2021 07:12-0500 Body weight [address] Sapna Ray Work Phone: [facility] Work Phone: 05-22-2021 07:12-0500 Diastolic blood pressure 89 mm[Hg] Dr. Sapna Ray Work Phone: [facility] Work Phone: 05-22-2021 07:12-0500 Respiratory rate 16 /min Dr. Sapna Ray Work Phone: [facility] Work Phone: 05-22-2021 07:12-0500 Systolic blood pressure 126 mm[Hg] Dr. Sapna Ray Work Phone: [facility] Work Phone: 04-23-2021 07:45-0500 SaO2% (BldA) [Mass fraction] 91 % Dr. Sapna Ray Work Phone: [facility] Work Phone: 04-23-2021 07:35-0500 Body temperature 98.2 [degF] Dr. Sapna Ray Work Phone: [facility] Work Phone: 04-23-2021 07:35-0500 Diastolic blood pressure 84 mm[Hg] Dr. Sapna Ray Work Phone: [facility] Work Phone: 04-23-2021 07:35-0500 Heart rate 91 /min Dr. Sapna Ray Work Phone: [facility] Work Phone: 04-23-2021 07:35-0500 Respiratory rate 16 /min Dr. Sapna Ray Work Phone: [facility] Work Phone: 04-23-2021 07:35-0500 Systolic blood pressure 137 mm[Hg] Dr. Sapna Ray Work Phone: [facility] Work Phone: 04-23-2021 04:10-0500 Body weight 71.[address] Sapna Ray Work Phone: [facility] Work Phone: 04-19-2021 19:50-0500 Body mass index (BMI) [Ratio] 26.3 kg/m2 Dr. Sapna Ray Work Phone: [facility] Work Phone: 04-09-2021 11:20-0500 Body temperature 98.6 [degF] Dr. Sapna Ray Work Phone: [facility] Work Phone: 04-09-2021 11:20-0500 Diastolic blood pressure 56 mm[Hg] Dr. Sapna Ray Work Phone: [facility] Work Phone: 04-09-2021 11:20-0500 Heart rate 96 /min Dr. Sapna Ray Work Phone: [facility] Work Phone: 04-09-2021 11:20-0500 Respiratory rate 18 /min Dr. Sapna Ray Work Phone: [facility] Work Phone: 04-09-2021 11:20-0500 SaO2% (BldA) [Mass fraction] 93 % Dr. Sapna Ray Work Phone: [facility] Work Phone: 04-09-2021 11:20-0500 Systolic blood pressure 93 mm[Hg] Dr. Sapna Ray Work Phone: [facility] Work Phone: 04-08-2021 13:28-0500 Body weight 72.[address] Sapna Ray Work Phone: [facility] Work Phone: 04-07-2021 17:32-0500 Body mass index (BMI) [Ratio] 26.4 kg/m2 Dr. Sapan Ray Work Phone: [facility] Work Phone: 03-24-2021 12:30-0500 Heart rate 121 /min Dr. Sapna Ray Work Phone: [facility] Work Phone: 03-24-2021 10:20-0500 Body temperature 98.1 [degF] Dr. Sapna Ray Work Phone: [facility] Work Phone: 03-24-2021 10:20-0500 Diastolic blood pressure 72 mm[Hg] Dr. Sapna Ray Work Phone: [facility] Work Phone: 03-24-2021 10:20-0500 Respiratory rate 17 /min Dr. Sapna Ray Work Phone: [facility] Work Phone: 03-24-2021 10:20-0500 SaO2% (BldA) [Mass fraction] 97 % Dr. Sapna Ray Work Phone: [facility] Work Phone: 03-24-2021 10:20-0500 Systolic blood pressure 131 mm[Hg] Dr. Sapna Ray Work Phone: [facility] Work Phone: 03-24-2021 05:00-0500 Body weight 64.[address] Sapna Ray Work Phone: [facility] Work Phone: 03-20-2021 03:00-0500 Inhaled oxygen concentration 70 % Dr. Sapna Ray Work Phone: [facility] Work Phone: 03-19-2021 23:28-0500 Body mass index (BMI) [Ratio] 25.7 kg/m2 Dr. Sapna Ray Work Phone: [facility] Work Phone: Encounters Encounter Date Encounter Type Care Provider Facility Start: 10-19-2024 Non-patient / Non-visit Lyndsey bassett NP-C -[facility] Start: 10-19-2024 Non-patient / Non-visit Dr. Khanh Posey [facility] Work Phone: Start: 10-18-2024 Non-patient / Non-visit Dr. Khanh Posey [facility] Work Phone: Start: 10-18-2024 ambulatory [facility] Facility:[facility] Start: 10-18-2024 End: 10-19-2024 Evaluation and management of inpatient Dr. Darvin Posey DO -[facility] Work Phone: Start: 10-18-2024 ambulatory Tez Walker Facility:[facility] Start: 10-18-2024 Non-patient / Non-visit Dr. Blaise CORONADO -[facility] Start: 07-18-2024 End: 07-18-2024 ambulatory SAPNA Carol CORY Facility:[facility] Start: 07-18-2024 End: 07-18-2024 Patient encounter procedure Merry Medrano APRN.CNP Work Phone: [facility] Comment on above: Bacterial sinusitis (Primary Dx); Antibiotic-induced yeast infection Start: 01-15-2024 End: 01-16-2024 Evaluation and management of inpatient Sapna Straussshannon Facility:[facility] Start: 01-15-2024 ambulatory Cari Reeves Facility:[facility] Start: 12-07-2023 End: 12-07-2023 Emergency department patient visit Sapna Ray Facility:[facility] Start: 03-30-2022 End: 03-30-2022 Emergency department patient visit Dr. Sapna Ray Work Phone: [facility]Emergency Department Start: 02-04-2022 End: 02-04-2022 Patient encounter [...] 01-28-[address] Sapna Ray Work Phone: [facility] Work Phone: Start: 01-28-2022 End: 01-28-[address] Sapna Ray Work Phone: [facility]-Laboratory,Fut ure Start: 12-20-2021 End: 12-20-[address] Sapna Ray Work Phone: [facility] Start: 12-18-2021 End: 12-18-[address] Sapna Ray Work Phone: [facility] Work Phone: Start: 12-18-2021 End: 12-18-[address] Sapna Ray Work Phone: [facility] Start: 12-11-2021 End: 12-11-[address] SAPNA RAY DO [facility] Start: 10-30-2021 End: 10-30-2021 Emergency department patient visit Dr. Sapna Ray Work Phone: [facility] Start: 10-23-2021 End: 10-23-[address] Sapna Ray Work Phone: [facility] Start: 09-18-2021 End: 09-18-2021 Patient encounter procedure [facility] Start: 09-05-2021 End: 09-05-2021 Emergency department patient visit Dr. Sapna Ray Work Phone: [facility]Emergency Department Start: 08-29-2021 End: 08-29-2021 Subsequent hospital visit by physician [facility] Work Phone: Radiology Comment on above: Rib pain on left twila e [R07.81] Start: 08-29-2021 End: 08-29-2021 Patient encounter procedure Júnior Alvarado MD Work Phone: [facility] Comment on above: Rib pain on left twila e (Primary Dx); Acute pain of right knee; Leg weakness, bilateral; Chronic bilateral low back pain with bilateral sciatica Start: 07-09-2021 End: 07-09-2021 Emergency department patient visit Dr. Sapna Ray Work Phone: [facility]Emergency Department Start: 05-22-2021 End: 05-22-[address] [facility] Start: 04-23-2021 Non-patient / Non-visit Dr. eLa Ray Work Phone: [facility] Start: 04-22-2021 Non-patient / Non-visit Dr. Lea Ray Work Phone: [facility] Start: 04-21-2021 Non-patient / Non-visit Dr. Lea Ray Work Phone: [facility] Start: 04-21-2021 Non-patient / Non-visit Dr. Lea Ray Work Phone: [facility] Start: 04-20-2021 Non-patient / Non-visit Dr. Lea Ray Work Phone: [facility] Start: 04-20-2021 Non-patient / Non-visit Dr. Lea Ray Work Phone: [facility] Start: 04-20-2021 Non-patient / Non-visit Dr. Lea Ray Work Phone: [facility] Start: 04-19-2021 End: 04-23-2021 Evaluation and management of inpatient Dr. Sapna Ray Work Phone: [facility]Progressive Care Unit Start: 04-09-2021 Non-patient / Non-visit Dr. Lea Ray Work Phone: [facility] Start: 04-08-2021 Non-patient / Non-visit Dr. Lea Ray Work Phone: [facility] Start: 04-07-2021 Non-patient / Non-visit Dr. Lea Ray Work Phone: [facility] Start: 04-07-2021 End: 04-09-2021 Evaluation and management of inpatient Dr. Sapna Ray Work Phone: [facility] Surgical 3 Start: 03-24-2021 Non-patient / Non-visit Dr. Lea Ray Work Phone: [facility] Start: 03-23-2021 Non-patient / Non-visit Dr. Lea Ray Work Phone: [facility] Start: 03-22-2021 Non-patient / Non-visit Dr. Lea Ray Work Phone: [facility] Start: 03-21-2021 Non-patient / Non-visit Dr. Lea Ray Work Phone: [facility] Start: 03-20-2021 Non-patient / Non-visit Dr. Lea Ray Work Phone: [facility] Start: 03-19-2021 Non-patient / Non-visit Dr. Lea Ray Work Phone: [facility] Start: 03-19-2021 End: 03-24-2021 Evaluation and management of inpatient Dr. Sapna Ray Work Phone: [facility] 2 Procedures Date Procedure Procedure [...] 07-18-2025 BP Controlled (<130/80) BP Controlled (<130/80) [facility] Start: 10-19-2024 Following clinical pathway protocol [facility] Start: 10-19-2024 Patient discharge [facility] Start: 10-19-2024 [facility] Start: 10-19-2024 Anaerobic Culture Anaerobic Culture [facility] Start: 10-19-2024 Body Fluid Culture Body Fluid Culture [facility] Start: 10-19-2024 Microbial culture, body fluid [facility] Start: 10-19-2024 Vital signs measurements [facility] Start: 10-18-2024 Following clinical pathway protocol [facility] Start: 10-18-2024 Ambulation without limitation [facility] Start: 10-18-2024 Assessment of risk of venous thromboembolism [facility] Start: 10-18-2024 Care regimes management [facility] Start: 10-18-2024 Elevation of affected extremity [facility] Start: 10-18-2024 Insertion of catheter into peripheral vein [facility] Start: 10-18-2024 Measuring intake and output [facility] Start: 10-18-2024 Notification of physician [facility] Start: 10-18-2024 Patient education [facility] Start: 10-18-2024 Patient referral to dietitian [facility] Start: 10-18-2024 Providing care according to standard [facility] Start: 10-18-2024 [facility] Start: 10-18-2024 Bacteria identified in Blood by Culture Blood Culture [facility] Start: 10-18-2024 Hospital admission, emergency, from emergency room, medical nature [facility] Start: 10-18-2024 Cell count and Differential panel - Body fluid [facility] Start: 10-18-2024 Glucose measurement, body fluid [facility] Start: 10-18-2024 Microbial culture, body fluid [facility] Start: 10-18-2024 Microscopic observation [Identifier] in Body fluid by Cyto stain [facility] Start: 10-18-2024 Verification routine [facility] Start: 10-18-2024 Admission procedure [facility] Start: 10-18-2024 End: 10-18-2024 [facility] Start: 12-06-2023 Covid-19 Vaccine ( season) Covid-19 Vaccine ( season) [facility] Start: 12-06-2023 Influenza vaccination Influenza Vaccine (#1) [facility] Start: 02-04-2023 Glaucoma screening Dilated Retinal Exam [facility] Start: 02-04-2023 Hepatitis C antibody, confirmatory test DILATED RETINAL EXAM [facility] Start: 08-29-2022 BP CONTROLLED (<130/80) BP CONTROLLED (<130/80) [facility] Start: 03-30-2022 [facility] Work Phone: Start: 12-05-2021 Influenza vaccination [facility] Start: 08-29-2021 Shingrix Vaccine (2 of 2) Shingrix Vaccine (2 of 2) [facility] Start: 06-20-2021 SHINGRIX VACCINE (1 of 2) SHINGRIX VACCINE (1 of 2) [facility] Start: 06-20-2016 COLOGUARD (FIT-DNA) COLOGUARD (FIT-DNA) [facility] Start: 06-20-2016 Colonoscopy COLONOSCOPY [facility] Start: 06-20-2016 COLORECTAL CANCER SCREENING COLORECTAL CANCER SCREENING [facility] Start: 06-20-[address] COLONOGRAPHY [facility] Start: 06-20-2016 FECAL OCCULT BLOOD FECAL OCCULT BLOOD [facility] Start: 06-20-2016 Screening for malignant neoplasm of colon [facility] Start: 06-20-2016 SIGMOIDOSCOPY SIGMOIDOSCOPY [facility] Start: 2011 Mammography MAMMOGRAM [facility] Start: 2011 Screening for malignant neoplasm of breast Mammogram Screening [facility] Start: 06-20-2001 HPV TESTING HPV TESTING [facility] Start: 06-20-1992 PAP TESTING PAP TESTING [facility] Start: 06-20-1992 Screening for malignant neoplasm of cervix Cervical Cancer Screening [facility] Start: 06-20-1990 HEPATITIS B (1 of 3 - Risk 3-dose series) HEPATITIS B (1 of 3 - Risk 3-dose series) [facility] Start: 06-20-1990 Hepatitis B Vaccine (1 of 3 - 19+ 3-dose series) Hepatitis B Vaccine (1 of 3 - 19+ 3-dose series) [facility] Start: 06-20-1990 Pneumococcal Vaccine: 50+ (1 of 2 - PCV) Pneumococcal Vaccine: 50+ (1 of 2 - PCV) [facility] Start: 06-20-1990 Urine microalbumin profile [facility] Start: 06-20-1989 ANNUAL PCP TEAM CHRONIC DISEASE VISIT ANNUAL PCP TEAM CHRONIC DISEASE VISIT [facility] Start: 06-20-1989 Anxiety Screening Anxiety Screening [facility] Start: 06-20-1989 BP Controlled (<130/80) BP Controlled (<130/80) [facility] Start: 06-20-1989 Hepatitis B surface antibody level LDL CHOLESTEROL [facility] Start: 06-20-1989 HEPATITIS C SCREENING HEPATITIS C SCREENING [facility] Start: 06-20-1989 Hepatitis C screening Hepatitis C Screening [facility] Start: 06-20-1989 HIV SCREENING HIV SCREENING [facility] Start: 06-20-1989 HIV screening HIV Screening [facility] Start: 06-20-1989 SPIROMETRY SPIROMETRY [facility] Start: 06-20-1981 3 comp foot exam completed DIABETIC FOOT EXAM [facility] Start: 06-20-1981 Diabetic foot examination Diabetic Foot Exam [facility] Start: 06-20-1981 Hepatitis B screening URINE ALBUMIN:CREATININE RATIO [facility] Start: 06-20-1981 Hepatitis C antibody, confirmatory test DILATED RETINAL EXAM [facility] Start: 06-20-1977 PNEUMOCOCCAL (1 - PCV) PNEUMOCOCCAL (1 - PCV) [facility] Start: 06-20-1977 Pneumococcal vaccination Pneumococcal Vaccine (1 of 2 - PCV) [facility] Start: 06-20-1976 COVID-19 VACCINE (#1) COVID-19 VACCINE (#1) [facility] Start: 06-20-1976 Hemoglobin A1c measurement HbA1C [facility] Start: 06-20-1976 Hemoglobin A1c/Hemoglobin.total in Blood HBA1C [facility] Start: 1971 COVID-19 VACCINE (#1) COVID-19 VACCINE (#1) [facility] Start: 1971 HEPATITIS B (1 of 3 - 3-dose series) HEPATITIS B (1 of 3 - 3-dose series) [facility] Bacteria identified in Body fluid by Culture [facility] Bacteria identified in Unspecified specimen by Anaerobe culture [facility] Bacteria identified in Urine by Culture Urine Culture [facility] Work Phone: Cytology report of B adrian fluid Cyto stain [facility] Lactate dehydrogenas e [Enzymatic activity/volume] in Body fluid by Pyruvate to lactate reaction [facility] Patient Education [facility] Work Phone: Patient referral [facility] Work Phone: pH of Body fluid [facility] pH of Body fluid [facility] Protein [Mass/volume ] in Body fluid [facility] Immunizations Immunization Date Immunization Notes Care Provider [facility] 03-08-2020 influenza, injectabl e, quadrivalent, preservative free Dr. Sapna Ray DO Work Phone: [facility] 03-08-2020 influenza, seasonal, injectable Dr. Sapna Ray Work Phone: [facility] Work Phone: 03-08-2020 influenza virus vaccine, unspecified formulation Xr Jeddo Work Phone: [facility] Payers Date Payer Category Payer Self-pay [id number] 2016 Unknown [id number] 2011 Medicaid [employer] [employer] [place] [employer] [id number] 2011-Present [phone] [place] [address] Medicaid [id number] 2011 Medicaid [id number] Unknown [id number] Unknown [id number] Unknown [id number] Unknown [id number] Unknown [id number] Unknown [id number] Unknown [id number] Unknown [id number] Unknown [id number] Social History Date Type Detail Facility [facility] Work Phone: Start: 07-09-2021 End: 03-30-2022 Tobacco smoking status FLIS Unknown if ever smoked [facility] Work Phone: Start: 09-07-2019 Spouse/ Signif icant Other [facility] Start: 09-07-2019 Non-smoker [facility] Start: 1970 Sex Assigned At Female [facility] Start: 01-22-2015 End: 10-18-2024 Tobacco smoking status FLIS Ex-smoker [facility] End: 01-16-1989 History of tobacco use Current smoker [facility] Start: 08-29-2021 End: 07-18-2024 Alcohol intake Current drinker of alcohol (finding) [facility] Start: 1970 Sex Assigned At Not on file [facility] Start: 08-19-2021 End: 02-04-2022 Exposure to SARS-CoV-2 (event) Not sure [facility] Work Phone: End: 01-16-1989 History of tobacco use Cigarette Smoker [facility] Start: 01-22-2015 Tobacco use and exposure Smokeless tobacco non-user [facility] Start: 08-29-2021 End: 05-02-2022 History of Social function [facility] Start: 08-29-2021 End: 05-02-2022 Tobacco use panel [facility] National Score (1-100), lower number is lower risk 92 [facility] Medical Equipment Procedure Code Equipment Code Equipment Origin al Text Equipment Identifier Dates four times daily . Use as instructed Comment on above: four times daily. Us e as instructed Goals Date Patient Goal Desired Activity /State Functional Status Date Assessment Result Facility 10-19-2024 Functional status Ambulates [facility] Work Phone: 04-23-2021 Functional status Up ad bryce [facility] Work Phone: 04-09-2021 Functional status Up ad bryce;Bathroom Priv [facility] Work Phone: 03-24-2021 Functional status Ambulates;Bathroom Priv [facility] Work Phone: Mental Status Date Assessment Result Facility 10-19-2024 Cognitive function Level Of Cons ciousness Awake;Alert;Appropriate [facility] Work Phone: 10-19-2024 Cognitive function Voice/Name [facility] Work Phone: 03-30-2022 Cognitive function Level Of Cons ciousness Drowsy;Lethargic [facility] Work Phone: 10-30-2021 Cognitive function Level Of Cons ciousness Awake;Alert;Appropriate;Follow s Commands [facility] Work Phone: 04-23-2021 Cognitive function Voice/Name [facility] Work Phone: 04-09-2021 Cognitive function Voice/Name [facility] Work Phone: 03-24-2021 Cognitive function Voice/Name [facility] Work Phone: Clinical Notes 05-23-2015 to 10-19-2024 Note Date & Type Note Facility 10-19-2024 Discharge summary [facility] 10-19-2024 Note [facility] Medical Records Department [address] [place] [address] Discharge Summary 10/19/24 1635 MR#: [id number] Acct: [id number] Name: MARIA ISABEL VANN Rep #: [id number] : 1970 54 From: Darvin Posey DO PCP: Dr. Sapna Ray DO Status:ADM IN Location: [facility] [id number] Providers Date of Admission: 10/18/24 Primary Care [...] Weight / B (more content not included)... [facility] 10-19-2024 Progress note [facility] 10-19-2024 Radiology Diagnostic study note [facility] Imaging Services [address] [place] [address] Chest Insp/Exp 2 View MR#: [id number] Acct: [id number] Name: MARIA ISABEL VANN Rep #: [id number] : 1970 F 54 From: Coby Herrera MD PCP: Dr. Sapna Ray, DO Status: ADM IN Study:Chest Insp/Exp 2 View Date of Exam: 10/19/24 Exam# [id number] Ordering Dr: Carlos Mathias i, MD EXAM: [...] effusions. 3. Pulmonary venous congestion. Reading Location: [facility] CC: Dr. Carlos Pimentel MD; Dr. 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 Sapna Ray DO Status:ADM IN Location: [place] [address]- Reason for Visit Chief Complaint: Shortness of [...] % (Auto) 57.9, Lymph % (Auto) 28.6, [place]oto % (Auto) 9.1, Eos % (Auto) 1.6, [...] % (Auto) 61.6, Lymph % (Auto) 26.5, [place] % (Auto) 7.7, Eos % (Auto) 2.0, [...] edema. Pneumonia cannot be excluded. Reading Location: [facility] Chest CTA 10/18/24 11:08 IMPRESSION: 1. No pulmonary embolism is identified. Some of the distal pulmonary arteries cannot be evaluated due to suboptimal opacification. 2. Bilateral pleural effusions with compressive atelectasis and scattered ground-glass attenuation could represent pulmonary edema and/or multifocal pneumonia. Reading Location: [facility] Echocardiogram 10/18/24 15:00 Interpretation Summary Normal LV [...] Cosigner Signature (if applicable): CC: ~ Signed [facility] Work Phone: 1(972) 422-879007-15-2025 Discharge summary Author Satyagris Mendenhall [facility] Note Date/Time October 18, 2024 3:49 pm [facility] Medical Records Department [address] [place] [id number] Emergency Department Summary 10/18/24 MR#: [id number] Acct: [id number] Name: MARIA ISABEL VANN Rep #:[id number] : 1970 54 From: Satya crisostomo DO PCP: Dr. Sapna Ray DO Status:ADM IN Location: [place] [address] HPI History of Present Illness Chief Complaint: [...] Did recently have a car ride to [place]. Denies any bilateral lower extremity swelling or [...] intact Psych: Cooperative, appropriate mood and affect [facility] Medical History (Updated 10/18/24 @ 13:58 by [...] Reaction Status Date / Time etodolac (From [facility]) Allergy Rash Verified 01/15/24 12:24 [...] % (Auto) 57.9 Lymph % (Auto) 28.6 [place] % (Auto) 9.1 Eos % (Auto) 1.6 [...] edema. Pneumonia cannot be excluded. Reading Location: [facility] Chest CTA 10/18/24 11:08 IMPRESSION: 1. No pulmonary embolism is identified. Some of the distal pulmonary arteries cannot be evaluated due to suboptimal opacification. 2. Bilateral pleural effusions with compressive atelectasis and scattered ground-glass attenuation could represent pulmonary edema and/or multifocal pneumonia. Reading Location: [facility] Discharge Plan Disposition Disposition: Acute Care Hospital [facility] Discharge Date/Time: 10/18/24 14:29 What to do if you have Problems For any increased pain, shortness of breath, bleeding, nausea or vomiting, chestpain, or any unexpected problems, contact your Primary Care Provider. Call [facility] ([phone]) or report to the closest Emergency Room. Call 911 if necessary. 10/18/24 1545 <Electronically signed by Satya Mendenhall DO> Cosigner Signature (if applicable): CC: Dr. Sapna Ray DO ~ Signed [facility] Work Phone: 1(553) 449-574507-15-2025 History and physical note Author Darvin Posey [facility] Note Date/Time October 18, 2024 2:03 pm [facility] Medical Records Department [address] [place] [address] H&P Exam - Hospitalist 10/18/24 1351 MR#: [id number] Acct: [id number] Name: MARIA ISABEL VANN Rep #:[id number] : 1970 54 From: Darvin Posey DO [...] bilateral large effusions on her chest [facility] Medical History (Updated 10/18/24 @ 13:58 [...] Reaction Status Date / Time etodolac (From [facility]) Allergy Rash Verified 01/15/24 12:24 [...] % (Auto) 57.9, Lymph % (Auto) 28.6, [place] % (Auto) 9.1, Eos % (Auto) 1.6, [...] edema. Pneumonia cannot be excluded. Reading Location: [facility] Chest CTA 10/18/24 11:08 IMPRESSION: 1. No pulmonary embolism is identified. Some of the distal pulmonary arteries cannot be evaluated due to suboptimal opacification. 2. Bilateral pleural effusions with compressive atelectasis and scattered ground-glass attenuation could represent pulmonary edema and/or multifocal pneumonia. Reading Location: [facility] Assessment & Plan Assessment/Plan (1) CHF exacerbation: [...] full code. Charges/Coding Visit Charges Inpatient E&M: 20481 Init Hosp L3 10/18/24 1403 <Electronically signed by Darvin Posey DO> Cosigner Signature (if applicable): CC: Dr. Darvin Posey DO; Dr. Sapna Ray DO~ Signed [facility] Work Phone: 1(559) 396-675907-15-2025 Discharge summary [facility] Medical Records Department [address] [place] [address] Emergency Department Summary 10/18/24 MR#: [id number] Acct: [id number] Name: MARIA ISABEL VANN Rep #:[id number] : 1970 54 From: Satya crisostomo DO PCP: Dr. Sapna Ray DO Status:ADM IN Location: [place] [address] HPI History of Present Illness Chief Complaint: [...] Did recently have a car ride to [place]. Denies any bilateral lower extremity swelling or [...] intact Psych: Cooperative, appropriate mood and affect [facility] Medical History (Updated 10/18/24 @ 13:58 by [...] % (Auto) 57.9 Lymph % (Auto) 28.6 [place] % (Auto) 9.1 Eos % (Auto) 1.6 [...] edema. Pneumonia cannot be excluded. Reading Location: [facility] Chest CTA 10/18/24 11:08 IMPRESSION: 1. No pulmonary embolism is identified. Some of the distal pulmonary arteries cannot be evaluated due to suboptimal opacification. 2. Bilateral pleural effusions with compressive atelectasis and scattered ground-glass attenuation could represent pulmonary edema and/or multifocal pneumonia. Reading Location: [facility]-- Discharge Plan Disposition Disposition: Acute Care Hospital [facility] Discharge Date/Time: 10/18/24 14:29 What to do if you have Problems For any increased pain, shortness of breath, bleeding, nausea or vomiting, chestpain, or any unexpected problems, contact your Primary Care Provider. Call [facility] ([phone]) or report tothe closest Emergency Room. Call 911 if necessary. 10/18/24 3980 Cosigner Signature (if applicable): CC: Dr. Sapna Ray DO ~ Signed [facility]07-15-2025 Evaluation note* Diagnosis Onset Date Resolution Status Admit Date Diabetes mellitus acute October 182024 1:48pm Pleural effusion acute October h2024 1:48pm CHF exacerbation chronic October h2024 1:48pm [facility] Work Phone: 1(511) 480-676007-15-2025 History and physical note [facility] Medical Records Department [address] [place] [address] H&P Exam - Hospitalist 10/18/24 1354 MR#: [id number] Acct: [id number] Name: MARIA ISABEL VANN Rep #:[id number] : 1970 54 From: Darvin Posey DO [...] bilateral large effusions on her chest CT. [facility] Medical History (Updated 10/18/24 @ 13:58 [...] % (Auto) 57.9, Lymph % (Auto) 28.6, [place] % (Auto) 9.1, Eos % (Auto) 1.6, [...] edema. Pneumonia cannot be excluded. Reading Location: [facility] Chest CTA 10/18/24 11:08 IMPRESSION: 1. No pulmonary embolism is identified. Some of the distal pulmonary arteries cannot be evaluated due to suboptimal opacification. 2. Bilateral pleural effusions with compressive atelectasis and scattered ground-glass attenuation could represent pulmonary edema and/or multifocal pneumonia. Reading Location: [facility] Assessment & Plan Assessment/Plan (1) CHF exacerbation: [...] full code. Charges/Coding Visit Charges Inpatient E&M: 20000 Init Hosp L3 10/18/24 1403 Cosigner Signature (if applicable): CC: Dr. Darvin Posey DO; Dr. Sapna Ray DO~ Signed [facility]07-15-2025 Radiology Diagnostic study note [facility] Imaging Services [address] [place], [place] [address] CTA Chest W/WO Contrast MR#: [id number] Acct: [id number] Name: MARIA ISABEL VANN Rep #: [id number] : 1970 F 54 From: Coby Herrera MD PCP: Dr. Sapna Ray DO Status: REG ER Study:CTA Chest W/WO Contrast Date of Exam: 10/18/24 Exam# [id number] Ordering Dr: Satya Boyd DO EXAM: CT [...] pulmonary edema and/or multifocal pneumonia. Reading Location: [facility] CC: Dr. Satya Mendenhall DO; Dr. Sapna Ray DO ~ Bench Assembler Operator: Signed [facility]07-15-2025 Radiology Diagnostic study note [facility] Imaging Services [address] [place] [address] [id number] Chest PA and Lateral MR#: [id number] Acct: [id number] Name: MARIA ISABEL VANN Rep #: [id number] : 1970 F 54 From: Coby Herrera MD PCP: Dr. Sapna Ray DO Status: REG ER Study:Chest PA and Lateral Date of Exam: 10/18/24 Exam# [id number] Ordering Dr: Satya Boyd DO EXAM: XR [...] edema. Pneumonia cannot be excluded. Reading Location: [facility] CC: Dr. Satya Mendenhall DO; Dr. Sapna Ray DO ~ Bench Assembler Operator: Signed [facility]04-14-2025 NoteHNO ID: [id number] Author: MERRY MEDRANO APRN.TABLET TESTER Service: ? Author Type: Nurse Practitioner Type: [...] and frontal sinus tenderness present. Mouth/Throat: Lips: [place]. Mouth: Mucous membranes are moist. Pharynx: Oropharynx is clear. Posterior oropharyngeal erythema present. No oropharyngeal exudate. Eyes: Extraocular Movements: Extraocular movements intact. Conjunctiva/sclera: Conjunctivae normal. Pupils: Pupils are equal, round, and reactive to light. Cardiovascular: Rate and Rhythm: Normal rate and regular rhythm. Pulses: Normal pulses. Heart sounds: Normal heart sounds. Pulmonary: (more content not included)...[facility]04-14-2025 History of Present illness Narrative* Merry Medrano APRN.[facility] - 07/18/2024 10:03 AM EDT Images from the original note were not included. [facility] NOTE Subjective Maria Isabel Vann is a 54 year old year old who presents to [facility] care today with complaint of Sinus [...] and frontal sinus tenderness present. Mouth/Throat: Lips: [place]. Mouth: Mucous membranes are moist. Pharynx: Oropharynx [...] CNP 07/18/2024 10:03 AM documented in this encounterFire[facility]04-14-2025 Instructions* Patient Instructions* Merry Medrano APRN.VERENICE - [...] smoke, should be avoided. documented in this encounterFirelands [facility]10-12-2024 [facility] Medical Records Department [address] [place] [address] Discharge Summary 01/16/24 1410 MR#: [id number] Acct: [id number] Name: MARIA ISABEL VANN Rep #: [id number] : 1970 53 From: J Luis Diaz MD PCP: Dr. Sapna Ray DO Status:DIS IN Location: [address] Providers Date of Admission: 01/15/24 Primary [...] 81 mg tablet 81 mg PO DAILY [facility] 04/19/21 insulin lispro 100 unit/mL subcutaneous pen [...] of diabetes, GERD, fibromyalgia who presented to [facility] ED 01/15/2024 feeling unwell since this morning. [...] Less than 3 Se (more content not included)...[facility]12-25-2022 Hospital Discharge instructions Additional Instructions Creatinine 1.68 up from 1.37 in October. Normal prior to that. Drink fluids at home for hydration. Follow-up with your doctor recheck labs. Sodium 132. Return if any worsening symptoms.[facility] Work Phone: 1([phone]) 277-446411-01-2022 History of Present illness Narrative* Warren Blanco [...] diagnosis, and treatment options. documented in this encounterFirelands [facility]11-01-2022 Instructions* Patient Instructions* Warren Blanco MD - [...] any questions please contact our office at [phone]. After office hours or on the weekend, please call Dr. Blanco on his cell phone at [phone]. documented in this encounterFirelands [facility]07-27-2022 Hospital Discharge instructions Additional Instructions Your blood pressure improved with IV fluids. Your creatinine 1.36 today your previous 0.96 over a month ago. Continue oral fluids at home. You may want to hold your Relafen and use Tylenol as needed for pain. Follow-up with your doctor recheck labs as an outpatient. [facility] Work Phone: 1(667) 110-873205-26-2022 History of Present illness Narrative* Júnior Alvarado [...] impingement with radicular symptoms, peripheral neuropathy, [place]. Continue management with primary care. Hospital and ER records are not readily available for reviewand chronic pain management is beyond the scope of care available in [facility]. Júnior Alvarado MD documented in this encounterFirelands [facility]02-17-2016 History of Past illness Narrative* Problem Noted Date Resolved Date Second degree uterine prolaps 05/23/2015 Cystocele, midline 05/23/2015 07/06/2015 ASCUS with positive high risk HPV 01/22/2015 07/06/2015 Menorrhagia with irregular cycle 01/22/2015 07/06/2015 Irregular menstrual cycle 01/22/20152015 documented as of this encounter (statuses as of 08/29/2021) [facility]02-17-2016 History of Past illness Narrative* Problem Noted Date Resolved Date Second degree uterine prolaps 05/23/2015 Cystocele, midline 05/23/2015 07/06/2015 ASCUS with positive high risk HPV 01/22/2015 07/06/2015 Menorrhagia with irregular cycle 01/22/2015 07/06/2015 Irregular menstrual cycle 01/22/20152015 documented as of this encounter (statuses as of 02/04/2022) [facility] CampusDis[facility] summary Author Darvin Posey [facility] Note Date/Time October 19, 2024 4:43 pm [facility] Medical Records Department [address] [place] [address] Discharge Summary 10/19/24 1635 MR#: [id number] Acct: [id number] Name: MARIA ISABEL VANN Rep #:[id number] : 1970 54 From: Darvin Posey DO PCP: Dr. Sapna Ray DO Status:ADM IN Location: [place] [id number] Providers Date of Admission: 10/18/24 Primary [...] 81 mg tablet 81 mg PO DAILY [facility] 04/19/21 insulin lispro 100 unit/mL subcutaneous [...] % (Auto) 61.6, Lymph % (Auto) 26.5, [place] % (Auto) 7.7, Eos % (Auto) 2.0, [...] effusions. 3. Pulmonary venous congestion. Reading Location: [facility] D/C Instructions Call your doctor if you [...] mg PO DAILY Referrals / Follow Up: [facility] [Provider Group] - Within 1 Month [facility] [Provider Group] - Within 2 Weeks Sapna Ray DO [Primary Care Provider] - Within 2 Weeks Disposition Disposition (needs filled in before D/C Order can be placed): Home, Self Care Charges/Coding Visit Charges Inpatient E&M: 27540 Disch Hosp >30min 10/19/24 1643 <Electronically signed by Darvin Posye DO> Cosigner Signature (if applicable): CC: Dr. Darvin Posey DO; Dr. Sapna Ray DO~ Signed [facility] Work Phone: Evaluation + Plan note No data available for this section [facility] Evaluation note* Diagnosis Onset Date Resolution Status Acute hyponatremia resolved Diabetic ketoacidosis resolv ed Pneumonia due to 2019-nCoV r esolved Bilateral pneumonia acute HLD (hyperlipidemia) acute Hypoxia resolved Sinus tachycardia resolved [facility] Work Phone: Evaluation note* Diagnosis Rib pain on left side- Primary Chest pain, unspecified Acute pain of right knee Leg weakness, bilateral Other musculoskeletal symptoms referable to limbs Chronic bilateral low back pain with bilateral sciatica documented in this encounter [facility] noteNo assessment information availableWTrumbull Regional [facility] Center Work Phone: Evaluation note* Diagnosis Onset Date Resolution Status COVID-19 tadeo johnson manifesting chronic fatigue 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, 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 acute Sciatica of right side acute [facility] Work Phone: Evaluation note* Diagnosis Onset Date Resolution Status COVID-19 tadeo johnson manifesting chronic fatigue 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, 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 acute Sciatica of right side acute Diabetic neuropathy associat ed with type 2 diabetes mellitus acute [facility] Work Phone: Evaluation note* Diagnosis Type 2 [...] unspecified depression type documented in this encounter [facility]* Diagnosis Onset Date Resolution Status Diabetic neuropathy associat ed with type 2 diabetes mellitus acute [facility] Work Phone: Evaluation note* Diagnosis Rib pain on left side Chest pain, unspecified Acute pain of right knee documented in this encounter [facility] note* Diagnosis Bacterial sinusitis- Primary Unspecified sinusitis (chronic) Antibiotic-induced yeast infection Candidiasis of unspecified site documented in this encounter [facility]Eval[facility]* Diagnosis Onset Date Resolution Status Admit Date Diabetes mellitus acute October 182024 1:48pm Pleural effusion acute October 1:48pm CHF exacerbation chronic October 1:48pm [facility] Work Phone: History and physical note Author Darvin Posey [facility] Note Date/Time October 18, 2024 2:03 pm [facility] Medical Records Department [address] [place] [address] H&P Exam - Hospitalist 10/18/24 1354 MR#: [id number] Acct: [id number] Name: MARIA ISABEL VANN Rep #:[id number] : 1970 54 From: Darvin Posey DO [...] bilateral large effusions on her chest [facility]. [facility] Medical History (Updated 10/18/24 @ 13:58 [...] Reaction Status Date / Time etodolac (From [facility]) Allergy Rash Verified 01/15/24 12:24 [...] % (Auto) 57.9, Lymph % (Auto) 28.6, [place] % (Auto) 9.1, Eos % (Auto) 1.6, [...] edema. Pneumonia cannot be excluded. Reading Location: [facility] Chest CTA 10/18/24 11:08 IMPRESSION: 1. No pulmonary embolism is identified. Some of the distal pulmonary arteries cannot be evaluated due to suboptimal opacification. 2. Bilateral pleural effusions with compressive atelectasis and scattered ground-glass attenuation could represent pulmonary edema and/or multifocal pneumonia. Reading Location: [facility] Assessment & Plan Assessment/Plan (1) CHF exacerbation: [...] off on metformin given the CT angiogram thatasmmy had received. Continue with her glargine as [...] full code. Charges/Coding Visit Charges Inpatient E&M: 65385 Init Hosp L3 10/18/24 1404 <Electronically signed by Darvin Posey DO> Cosigner Signature (if applicable): CC: Dr. Darvin Posey, DO; Dr. Sapna Ray DO~ Signed [facility] Work Phone: Hospital Discharge instructions Additional Instructions As discussed, you can use Flexeril as a muscle relaxer instead of your Zanaflex. Please do not take the 2 together. After completing the course of Flexeril you can go back to your baseline Zanaflex.[facility] Work Phone: Hospital Discharge instructionsWTrumbull [facility] Work Phone: Hospital Discharge instructions No data available for this section [facility] Hospital Discharge instructionsAdditional Instructions You [...] do recommend a follow-up with endocrinology as well.[facility] Work Phone: Progress note No data available for this section [facility] reason for referral (narrative)* Diagnostic Procedure Only (Urgent) - Closed Specialty Diagnoses / Procedures Referred By Contac t Referred To Contact XR IMAGING Diagnoses Acute pain of right knee Procedures XR KNEE GENERAL 4V AP BOTH/PA BOTH/LAT/MERC RIGHT RADIOLOGIC EXAM KNEE COMPLETE 4/MORE VIEWS Júnior Alvarado MD [address] [place] [address] Xr Imaging Referral ID Status Reason Start Date Expiration Date V isits Requested Visits Authorized [id number] Closed Auto-Generate d Referral 08/29/2021 09/28/2022 1 1 * Diagnostic Procedure Only (Urgent) - Closed Specialty Diagnoses / Procedures Referred By Contac t Referred To Contact XR IMAGING Diagnoses Rib pain on left side Procedures XR RIBS/CHEST 3V AP RIB/OBLS/CXR LEFT RADEX RIBS UNI W/POSTEROANT CH MINIMUM 3 VIEWS Júnior Alvarado MD [address] [place] [address] Xr Imaging Referral ID Status Reason Start Date Expiration Date V isits Requested Visits Authorized [id number] Closed Auto-Generate d Referral 08/29/2021 09/28/2022 1 1 [facility] for referral (narrative)* Diagnostic Procedure Only (Urgent) - Closed Specialty Diagnoses / Procedures Referred By Contac t Referred To Contact XR IMAGING Diagnoses Acute pain of right knee Procedures XR KNEE GENERAL 4V AP BOTH/PA BOTH/LAT/MERC RIGHT RADIOLOGIC EXAM KNEE COMPLETE 4/MORE VIEWS Júnior Alvarado MD [address] [place] [address] [place] [address] Referral ID Status Reason Start Date Expiration Date V isits Requested Visits Authorized [id number] Closed Auto-Generate d Referral 08/29/2021 09/28/2022 1 1 * Diagnostic Procedure Only (Urgent) - Closed Specialty Diagnoses / Procedures Referred By Contac t Referred To Contact XR IMAGING Diagnoses Rib pain on left side Procedures XR RIBS/CHEST 3V AP RIB/OBLS/CXR LEFT RADEX RIBS UNI W/POSTEROANT CH MINIMUM 3 VIEWS Júnior Alvarado MD [address] [place] [address] [place] [address] Referral ID Status Reason Start Date Expiration Date V isits Requested Visits Authorized [id number] Closed Auto-Generate d Referral 08/29/2021 09/28/2022 1 1 [facility] referral (narrative)No reason for referral information availableWTrumbull Regional Medical Center Work Phone: Reason for visit Narrative* Diagnostic Procedure Only (Urgent) - Closed Specialty Diagnoses / Procedures Referred By Contac t Referred To Contact XR IMAGING Diagnoses Acute pain of right knee Procedures XR KNEE GENERAL 4V AP BOTH/PA BOTH/LAT/MERC RIGHT RADIOLOGIC EXAM KNEE COMPLETE 4/MORE VIEWS Júnior Alvarado MD [address] [place] [address] [place] [address] Referral ID Status Reason Start Date Expiration Date V isits Requested Visits Authorized [id number] Closed Auto-Generate d Referral 08/29/2021 09/28/2022 1 1 [facility] Chief Complaint and Reason for Visit Chief [...] No July 09, 2021 8:11pm Power of Manager Inpatient No July 09 8:11pm Advance Directive Response Recorded Date/ Time Advance Directives No March 9:54am Living Will No September 05, 2021 4 :29pm Power of Manager Inpatient No September 05, 2021 4:29pm Advance Directive Response Recorded Date/ Time Advance Directives No October 18 12:08pm Living Will No October 30, 2021 12:52pm Power of Manager Inpatient No October 30 12:52pm Advance Directive Response Recorded Date/ Time Advance Directives No October 18 11:08am Living Will No March 30, 1:56pm Power of Manager Inpatient No March 30, 2022 1:56pm Advance Directive Response Recorded Date/ Time Do you have a Healthcare Power of Manager Inpatient? No October 18, 2024 10:15am Advance Directives No October 18 12:08pm Advance Directive Response Recorded Date/ Time Do you have a Healthcare Power of Manager Inpatient? No October 18, 2024 3:01pm Advance Directives [...] or prosecute any alcohol or drug abuse patient.[facility] CampusIn the event this information is protected by the Federal Confidentiality of Alcohol and Drug Abuse Patient Records regulations: The Federal rules restrict any use of the information to criminally investigate or prosecute any alcohol or drug abuse patient.[facility] CampusIn the event this information is protected by the Federal Confidentiality of Alcohol and Drug Abuse Patient Records regulations: The Federal rules restrict any use of the information to criminally investigate or prosecute any alcohol or drug abuse patient.[facility] CampusIn the event this information is protected by the Federal Confidentiality of Alcohol and Drug Abuse Patient Records regulations: The Federal rules restrict any use of the information to criminally investigate or prosecute any alcohol or drug abuse patient.[facility] Reason for Visit (unrecogniz ed section and [...] Care Teams (unrecognized sec tion and content) Steelscope Operator Relationship Specialty Start Date End Date Sapna Ray DO PCP - General 01/24/15 Steelscope Operator Relationship Specialty Start Date End Date Sapna Ray DO PCP - General 01/24/15 Steelscope Operator Relationship Specialty Start Date End Date Sapna aRy DO PCP - General 01/24/15 Steelscope Operator Relationship Specialty Start Date End Date [...] Member Role: Primary Care Physician Address: Address: [address] [place] [address] [address] [place], [place] [address] Care Team Related Persons Name: EFFIE VANN Name: EFFIE VANN INFORMATION SOURCE (unrecogn ized section and content) DATE CREATED AUTHOR 07/18/2024 [facility] DATE CREATED AUTHOR AUTHOR'S KRYSTYNAIZ ATION 11/12/2024 [facility] FOR RECORDS PERTAINING TO PATIENTS WHO ARE [...] BE BASED ON THE PRIMARY CLINICAL RECORDS. [facility] [employer] [facility]. provides no warranty or guarantee of the accuracy or completeness of information in this document.
[2024-12-05 00:44] LABS: Troponin T High Sensitivity 35 ng/L (<=14)
[2024-12-05 00:56] LABS: Troponin T High Sens 2 HR 35 ng/L (<=14)
[2024-12-05 01:12] LABS: Magnesium 1.8 mg/dL (1.5-2.2)
--- OUTSIDE RECORDS SUMMARY | 2024-12-05 01:35 | XMS RPT_ITS | CCD ---
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 Sapna Ray Primary Care Provider Dr. Kvng Herrera Emergency Provider Dr. Fred Wilkins Admit Provider Dr. Fred Wilkins Attending Provider Dr. Fred Wilkins Other Provider Dr. Katherine Peck Attending Provider Dr. Katherine Peck Other Provider Dr. Tony Hunter Other Provider Dr. David Santillan Other Provider Valerie SAFETY RELIEF VALVE TECHNICIAN, SAFETY RELIEF VALVE TECHNICIAN-C Teresa Other Provider Dr. Darvin Schultz Emergency Provider Dr. Rad Shen Attending Provider Dr. Rodriguez Quinteros Attending Provider Dr. Rad Shen Referring Provider Dr. aRd Shen Admit Provider Dr. Rad Shen Other Provider Dr. Bin Gleason Other Provider Dr. Tez Walker Attending Provider Dr. Saeid Valladares Emergency Provider Dr. Madison López Admit Provider Dr. Madison López Referring Provider Dr. Reinaldo Collins Other Provider Dr. David Santillan Attending Provider Dr. Bill Gregorio Other Provider Unavailable Dr. Bill Gregorio Attending Provider Unavailable Dr. Reinaldo Collins Attending Provider Qasim, Dr. Smith Other Provider Dr. Tony Hunter Attending Provider Qasim, Dr. Smith Attending Provider Cory, Dr. Alejo Referring Provider Valerie SAFETY RELIEF VALVE TECHNICIAN, SAFETY RELIEF VALVE TECHNICIAN-C Teresa Attending Provider Cory RAMOS, Sapna Medina Primary Care Provider Cory, Dr. Alejo Primary Care Provider Cory, Dr. Alejo Primary Care Provider Cory, Dr. Alejo Referring Provider [phone] Dr. Tyson Menchaca Attending Provider DR RENE ZELAYA MD Primary Care Physician Unava ilmaicol Ray DO, Sapna Medina Primary Care Provider Cory, Dr. Alejo Primary Care Provider Cory, Dr. Alejo Referring Provider [phone] Dr. Tyson Menchaca Attending Provider [phone] Cory RAMOS, Sapna Medina Primary Care Provider [phone] CORY, ASPNA Medina Primary Care Unavailable Cory RAMOS, Dr. Alejo Primary Care Provider Dr. Satya Mendenhall DO Emergency Provider Taty RAMOS, Dr. [place] Admit Provider Dr. Darvin Posey DO Attending Provider Cory RAMOS, Dr. Alejo Primary Care Provider Dr. Tez Walker MD Attending Provider [phone] Darvin Posey DO Other Provider Patti LOZANO-CLyndsey Attending Provider Malys, Sapna Primary Care Unavailable J Luis Diaz Attending Unavailable Reeves, Cari Admitting Unavailable Reeves, Cari Consulting Unavailable Tez Walker Attending Unavailable Malys, Sapna Primary Care Unavailable Malys, Sapna Primary Care Unavailable Jopperi, Darvin Attending Unavailable Malys, Sapna Primary Care Unavailable Lyndsey Armstrong Attending Unavailable Jopperi, Darvin Admitting Unavailable Jopperi, Darvin Consulting Unavailable Jopperi, Darvin Attending Unavailable Reeves, Cari Admitting Unavailable Reeves, Cari Consulting Unavailable Reeves, Cari Attending Unavailable Malys, Sapna Primary Care Unavailable J Luis Diaz Attending Unavailable J Luis Diaz Consulting Unavailable Malys, Sapna Primary Care Unavailable Sav Kenyon Attending Unavailable Malys, Sapna Primary Care Unavailable Jopperi, Darvin Admitting Unavailable Jopperi, Darvin Attending Unavailable Blaine CORONADO, Dr. Breaux Emergency Provider Dr. Bill Awad DO Admit Provider Unavail able Dr. Bill Awad DO Attending Provider Unav ailable Allergies Allergy Classification Reported Allergen(s) Allergy Type Date of Onset Reaction(s) Facility (15 sources) Etodolac; Translations: [ETODOLAC] Drug Allergy 01-16-2015 Swelling [facility] (5 sources) Seasonal allergy; Translations: [SEASONAL ALLERGIES] Allergy to substance 01-16-2015 Itching [facility] (1 source) [place] Drug Allergy 01-15-2024 [facility] Repository Medications Current Medications Medication Drug Class(es) Dates Sig (Normalized) Sig (Original) amoxicillin 875 mg / clavulanate 125 mg oral tablet (1 source) Penicillin-class Antibacterial Start: 07-18-2024 End: 07-23-2024 take 1 tablet by mouth twice daily amoxicillin-clav ulanate potassium (AUGMENTIN) 875-125 mg per tablet Take 1 tablet by mouth two times a day for 5 days. 10 tablet 07/18/2024 07/23/2024 Active Ascorbic Acid (10 sources) Vitamin C Start: 05-22-2021 take 1 [...] 2021 1:00am aspirin 81 mg oral tablet (14 sources) Platelet Aggregation Inhibitor, Nonsteroidal Anti-inflammatory Drug Start: 04-19-2021 take 1 tablet by mouth once daily Aspirin 81 mg Tablet Active 81 mg PO DAILY April 19, 2021 1:00am heart [employer] take 1 tablet by mouth once live y aspirin, enteric coated (ASPIRIN, ENTERIC COATED) 81 mg EC tablet Take 81 mg by mouth once daily. Active Comment on above: Take 81 mg by mouth once daily. carvedilol 6.25 mg oral tablet (2 sources) alpha-Adrenergic Destiney, beta-Adrenergic Destiney Start: 025 take 1 tablet by mouth twice daily at mealtime Carvedilol 6.25 mg tablet Active 6.25 mg PO TWICE A DAY 60 0 October 19, 2024 12:00am must administer with a meal/food cholecalciferol 1.25 mg oral capsule (10 sources) Vitamin D Start: 022 take 1 [...] Start: 05-22-2021 take 1 capsule by mo [employer]x branson twice daily Diphenhydramine Hcl (Benadryl) 25 mg [...] at bedtime. fenofibrate 67 mg oral capsule (14 sources) Peroxisome Proliferator Receptor alpha Agonist Start: [...] 07/18/2024 Active furosemide 40 mg oral tablet (2 sources) Loop Diuretic Start: take 1 tablet by [...] daily. lactobacillus acidophilus 1 mg oral tablet (3 sources) Start: 10-19-19 25 take 1 tablet by mouth twice daily Lactobacillus Acidophilus 0.5 mg (100 million cell) tablet Active 1 mg PO TWICE A DAY October 18, 2024 12:00am lisinopril 10 mg oral tablet (19 sources) Angiotensin Converting Enzyme Inhibitor Start: 10-20-19 25 take 1 tablet by mouth once [...] omeprazole 20 mg delayed release oral capsule (14 sources) Proton Pump Inhibitor Start: take 1 [...] (AK-DILATE, GUTIERREZ-SYNEPHRINE) pregabalin 150 mg oral capsule (3 sources) Start: 10-18-2024 take 1 capsule by mouth twice daily Pregabalin 150 mg capsule Active 150 mg PO TWICE A DAY October 18, 2024 12:00am proparacaine hydrochloride 5 mg/ml ophthalmic solution (1 source) Local Anesthetic Start: 02-04-2022 End: 02-04-2022 proparacaine 0.5 % 1 Drop (ALCAINE) sodium chloride 0.111 meq/ml nasal spray (4 sources) Start: 10-18-2024 Sodium Chloride (Deep Sea Nasal) 0.65 % aerosol,spray Active 1 NMA INTRANASAL 4 TIMES DAILY NEEDED as needed for allergies October 18, 2024 12:00am Start: 10-18-2024 Sodium Chlorid e (Sodium Chloride 0.65 % Nasal [place] Aerosol) 0.65 % aerosol,spray Active 1 NMA [...] / HYDROcodone bitartrate 5 mg oral tablet (10 sources) Opioid Agonist Start: 07-09-2021 End: 10-23-2021 [...] / oxyCODONE hydrochloride 5 mg oral tablet (16 sources) Opioid Agonist Start: 10-30-2021 End: 01-15-2024 [...] right side Sciatica, right side bacillus coagulans [id number] unt / lactobacillus acidophilus [id number] unt oral tablet (10 sources) Start: 04-07-2021 End: 01-15-2024 Acidophilus-Sporogenes (Acid ophilus Ex Str (L. Sporog)) 35 million- 25 million cell tablet Discontinued 2 {tbl} PO TWICE A DAY April 07, 2021 1:00am January 15, 2024 4:05pm GI Start: 04-07-2021 take 1 tablet by julianne once daily Acidophilus-Sporogenes (Acidophilus Ex Str (L. [...] CPAP doxycycline monohydrate 100 mg oral tablet (10 sources) Tetracycline-class Drug Start: 04-09-2021 End: 04-23-2021 [...] times daily. glipiZIDE 5 mg oral tablet (10 sources) Sulfonylurea Start: 04-15-19 End: 03-08-20 take 1 tablet by mouth twice daily Glipizide 5 mg tablet Discontinued 5 mg PO TWICE A DAY April 15, 2017 1:00am March 08, 2020 2:52pm diabetes insulin aspart, human 100 unt/ml injectable solution (14 sources) Insulin Analog Start: 05-23-19 End: 04-15-19 [...] meals insulin detemir 100 unt/ml injectable solution (10 sources) Insulin Analog Start: 2019 End: 2019 inject 20 [IU] by subcutaneous injection at bedtime Insulin Detemir U-100 100 UNIT/ML solution Discontinued 20 U SQ AT BEDTIME March 07, 2020 1:00am March 08, 2020 2:53pm diabetes levocetirizine dihydrochloride 5 mg oral tablet (17 sources) Histamine-1 Receptor Antagonist Start: 2024 End: 2024 take 1 tablet by mouth once daily Levocetirizine 5 mg tablet Discontinued 5 mg PO DAILY October 18, 2024 12:00am December 04, 2024 9:24pm Start: 05-22-2021 End: 01-15-2024 take 1 tablet [...] Active Comment on above: Take by mouth. levoFLOXacin 750 mg oral tablet (10 sources) Quinolone Antimicrobial Start: 04-23-19 End: 05-22-19 take 1 tablet by mouth once daily Levofloxacin 750 mg tablet Discontinued 750 mg PO DAILY 3 3 0 April 23, 2021 1:00am May 22, 2021 9:24am methocarbamol 500 mg oral tablet (11 sources) Muscle Relaxant Start: 05-23-19 End: 08-30-19 take 1 tablet by mouth twice daily Methocarbamol 500 MG tablet Discontinued 500 mg PO TWICE A DAY May 23, 2015 1:00am April 15, 2017 10:48am Comment on above: Take 500 mg by mouth twice daily. metoprolol tartrate 25 mg oral tablet (10 sources) beta-Adrenergic Destiney Start: 04-09-19 End: 05-22-19 take 1 tablet by mouth twice daily Metoprolol Tartrate 25 mg Tablet Discontinued 25 mg PO TWICE A DAY 60 0 April 09, 2021 1:00am May 22, 2021 9:25am Hold for HR miconazole nitrate 20 mg/ml topical cream (1 source) Azole Antifungal End: 08-30-19 miconazole (MONISTAT-DERM,EMMANUEL) 2 % cream Apply 1 application to affected area twice daily. 0 08/29/2021 Discontinued Comment on above: Apply 1 application to affected area twice daily. montelukast 10 mg oral tablet (11 sources) Leukotriene Receptor Antagonist Start: 05-23-19 End: 08-30-19 take 1 tablet by mouth at bedtime Montelukast 10 MG tablet Discontinued 10 mg PO AT BEDTIME May 23, 2015 1:00am April 15, 2017 10:47am Comment on above: Take 10 mg by mouth once daily. nabumetone 750 mg oral tablet (18 sources) Nonsteroidal Anti-inflammatory Drug Start: 10-24-19 End: 01-15-20 take 1 tablet by mouth twice daily Nabumetone 750 mg tablet Discontinued 750 mg PO TWICE A DAY October 23, 2021 12:00January 15, 2024 4:07pm Start: 05-23-2015 End: 08-29-2021 take 1 tablet by mouth once daily Nabumetone 750 MG tablet Discontinued 750 mg PO DAILY May 23, 2015 1:00am April 15, 2017 10:46am Comment on above: Take 750 mg by mouth once daily. naproxen 500 mg oral tablet (10 sources) Nonsteroidal Anti-inflammatory Drug Start: 2 End: 2 take 1 tablet by mouth twice daily as needed for pain Naproxen (Naprosyn) 500 mg tablet Discontinued 500 mg PO TWICE A DAY as needed for pain July 09, 2021 12:00am October 23, 2021 1:51pm 24 hr oxybutynin chloride 10 mg extended release oral tablet (11 sources) Cholinergic Muscarinic Antagonist Start: 7 End: 2 take 1 tablet by mouth once daily Oxybutynin Chloride 10 MG tablet extended release 24 hr Discontinued 10 mg PO DAILY October 10, 2016 12:00am March 24, 2017 6:14pm Comment on above: TAKE 1 TABLET BY JULIANNE TH DAILY predniSONE 20 mg oral tablet (20 sources) Start: 2 End: 2 take 2 [...] mg tablet Discontinued 40 mg PO DAILY 28 April 23, 2021 1:00am May 22, 2021 9:25am Start: 04-23-2021 End: 05-22-2021 take 40 mg by mouth once daily Prednisone Discontinued 40 MG PO DAILY 28 April 23, 2021 12:00am May 22, 2021 [...] once daily. tiZANidine 6 mg oral capsule (7 sources) Central alpha-2 Adrenergic Agonist Start: 10-30-2021 [...] Date Episodic/Chronic Acute and unspecified renal failure (10 sources) Injury of kidney; Translations: [Acute kidney failure, unspecified] 04-22-2021 Episodic Asthma (4 sources) Asthma; Translations: [Unspecified asthma, uncomplicated] Onset: 02-07-2015 02-07-2015 Chronic Cardiac dysrhythmias (13 sources) Sinus tachycardia; Translations: [Tachycardia, unspecified] Episodic Cataract (3 sources) Bilateral senile combined form cataracts of eyes; Translations: [Combined forms of age-related cataract, bilateral] Onset: 02-04-2022 Chronic Congestive heart failure; nonhypertensive (10 sources) Acute exacerbation of chronic congestive heart failure; Translations: [Heart failure, unspecified] Onset: 11-04-2024 10-18-2024 Chronic Diabetes mellitus with complications (20 sources) Diabetic ketoacidosis; Translations: [Type 2 diabetes mellitus with ketoacidosis without coma] Chronic Diabetes mellitus without complication (20 sources) Diabetes mellitus; Translations: [Type 2 diabetes mellitus without complications] Onset: 02-07-2015 02-07-2015 Chronic Diabetes mellitus without complication (6 sources) Hyperglycemia; Translations: [Hyperglycemia, unspecified] Onset: 01-18-2024 01-15-2024 Episodic Disorders of lipid metabolism (17 sources) Hyperlipidemia; Translations: [Hyperlipidemia, unspecified] Onset: 02-07-2015 Chronic Esophageal disorders (8 sources) Gastroesophageal reflux disease; Translations: [Gastro-esophageal reflux disease without esophagitis] Onset: 02-07-2015 02-07-2015 Chronic Essential hypertension (5 sources) Hypertensive disorder; Translations: [Essential (primary) hypertension] Onset: 02-07-2015 02-07-2015 Chronic Fluid and electrolyte disorders (20 sources) Acute hyponatremia; Translations: [Hypo-osmolality and hyponatremia] Episodic Genitourinary symptoms and ill-defined conditions (4 sources) Female stress incontinence; Translations: [Stress incontinence (female) (male)] Onset: 04-03-2015 04-03-2015 Chronic Hypertension with complications and secondary hypertension (1 source) Hypertensive heart disease with heart failure; Translations: [Hypertensive heart disease with heart failure] Onset: 11-04-2024 Chronic Malaise and fatigue (4 sources) Chronic fatigue, unspecified; Translations: [Rate-[id number]-01 syndrome manifesting as chronic fatigue] Chronic Malaise and fatigue (13 sources) Asthenia; Translations: [Weakness] Episodic Mood disorders (5 sources) Depressive disorder; Translations: [Depression] Onset: 02-07-2015 02-07-2015 Chronic Mycoses (1 source) Opportunistic mycosis; Translations: [Candidiasis, unspecified] 07-18-2024 Episodic Other circulatory disease (7 sources) Transient hypotension; Translations: [Hypotension, unspecified] 11-07-2021 Episodic Other circulatory disease (4 sources) Syncope due to orthostatic hypotension; Translations: [Orthostatic hypotension] 04-07-2022 Episodic Other connective tissue disease (15 sources) Fibromyalgia; Translations: [Fibromyalgia] Onset: 02-07-2015 02-07-2015 Episodic Other connective tissue disease (10 sources) Panniculitis; Translations: [Panniculitis, unspecified] 04-22-2021 Episodic Other connective tissue disease (10 sources) Recurrent falls ; Translations: [Repeated falls] 04-22-2021 Episodic Other connective tissue disease (1 source) Paraparesis; Translations: [Other symptoms and signs involving the musculoskeletal system] Episodic Other diseases of bladder and urethra (4 sources) Detrusor overactivity; Translations: [Overactive bladder] Onset: 04-03-2015 04-03-2015 Chronic Other diseases of kidney and ureters (11 sources) Acute renal insufficiency; Translations: [Disorder of kidney and ureter, unspecified] 11-07-2021 Episodic Other inflammatory condition of skin (10 sources) Intertrigo; Translations: [Erythema intertrigo] 04-22-2021 Episodic Comment on above: abdominal wall skin crease intertrigo Other lower respiratory disease (12 sources) Hypoxia; Translations: [Hypoxemia] 05-01-2021 Episodic Other lower respiratory disease (1 source) Hypoxemia; Translations: [Hypoxemia] Episodic Other lower respiratory disease (2 sources) Rib pain; Translations: [Pleurodynia] Episodic Other non-traumatic joint disorders (2 sources) Pain in right knee; Translations: [Pain in joint, lower leg] Episodic Other nutritional; endocrine; and metabolic disorders (10 sources) Excess panniculus of abdomen; Translations: [Localized adiposity] 04-22-2021 Chronic Other nutritional; endocrine; and metabolic disorders (10 sources) Excessive weight loss; Translations: [Abnormal weight loss] 04-22-2021 Episodic Other upper respiratory infections (1 source) Bacterial sinusitis; Translations: [Chronic sinusitis, unspecified] 07-18-2024 Chronic Pleurisy; pneumothorax; pulmonary collapse (8 sources) Pleural effusion; Translations: [Pleural effusion, not elsewhere classified] Onset: 11-04-2024 10-18-2024 Episodic Pneumonia (except that caused by tuberculosis or sexually transmitted disease) (11 sources) Bilateral pneumonia; Translations: [Pneumonia, unspecified organism] Episodic Residual codes; unclassified (4 sources) Obstructive sleep apnea syndrome; Translations: [Obstructive sleep apnea (adult) (pediatric)] Onset: 02-07-2015 02-07-2015 Chronic Screening and history of mental health and substance abuse codes (10 sources) Ex-smoker; Translations: [Personal history of nicotine dependence] 04-22-2021 Episodic Skin and subcutaneous tissue infections (4 sources) Abscess of abdominal wall; Translations: [Cutaneous abscess of abdominal wall] Onset: 02-11-2024 01-15-2024 Episodic Spondylosis; intervertebral disc disorders; other back problems (20 sources) Sciatica; Translations: [Sciatica, unspecified side] Episodic Sprains and strains (10 sources) Sprain of ankle; Translations: [Sprain of unspecified ligament of right ankle, initial encounter] 03-25-2016 Episodic Superficial injury; contusion (20 sources) Abrasion and/or friction burn of wrist without infection; Translations: [Abrasion of unspecified wrist, initial encounter] 09-08-2019 Episodic Viral infection (20 sources) COVID-19; Translations: [Pneumonia due to COVID-19 [...] Onset: 01-22-2015 Resolved: 07-06-2015 07-06-2015 Episodic Unclassified (7 sources) [facility] 10-25-2021 Results Test Name Value Interpretation Reference Range Facility Troponin T.cardiac [Mass/vol ume] in Serum or Plasma by High sensitivity methodOrdered By: Saeid Valladares on 12-05-2024 Troponin T.cardiac High sensitivity method [Mass/Vol] 35 ng/L High <14 [facility] Absolute lymphocyte countOrd ered By: ED PROVIDER on 12-04-2024 Lymphocytes Auto (Unsp spec) [#/Vol] 1.15 10*3/uL 0.83-4.51 [facility] Absolute neutrophil countOrd ered By: ED PROVIDER on 12-04-2024 Neutrophils (Bld) [#/Vol] 4.9 10*3/uL 2.0-7.7 [facility] Anion gap in Serum or Plasma Ordered By: ED PROVIDER on 12-04-2024 Anion gap [Moles/Vol] 13 mmol/L 5-15 [facility] Automated lymphocyte count a s percentage of total leukocytesOrdered By: ED PROVIDER on 12-04-2024 Lymphocytes/100 WBC Auto (Unsp spec) 17.4 % Low 19-41 [facility] BUN/creatinine ratioOrdered By: ED PROVIDER on 12-04-2024 Urea nitrogen/Creatinine [Mass ratio] 37.0 mg/mg High 10-20 [facility] Basophil percentageOrdered B y: ED PROVIDER on 12-04-2024 Basophils/100 WBC (Bld) 0.5 % 0-1 [facility] Carbon dioxide, total [Moles /volume] in Central venous bloodOrdered By: ED PROVIDER on 12-04-2024 CO2 [Moles/Vol] 24.8 mmol/L 21.0-32.0 [facility] Chloride assayOrdered By: ED PROVIDER on 12-04-2024 Chloride [Moles/Vol] 105 mmol/L 98-108 [facility] Eosinophil percentageOrdered By: ED PROVIDER on 12-04-2024 Eosinophils/100 WBC (Bld) 0.8 % 0-5 [facility] Erythrocyte distribution wid th ratioOrdered By: ED PROVIDER on 12-04-2024 Erythrocyte distribution width (RBC) [Ratio] 14.4 % 11.6-14.6 [facility] Erythrocyte distribution wid th standard deviationOrdered By: ED PROVIDER on 12-04-2024 Erythrocyte distribution width (RBC) [Ratio] 45.9 fl High 35.1-43.9 [facility] Glomerular filtration rate ( GFR) estimation/1.73 sq m using serum, plasma, or whole bOrdered By: ED PROVIDER on 12-04-2024 GFR/1.73 sq M.predicted among non-blacks MDRD (S/P/Bld) [Vol rate/Area] 54 mL/min/{1.73_m2} Low >60 [facility] Comment on above: mL/min/1.73m2 CKD-EP I Creatinine Equation (2020) Hematocrit Auto (Bld) [Volum e fraction]Ordered By: ED PROVIDER on 12-04-2024 Hematocrit (Bld) [Volume fraction] 41.1 % 37-47 [facility] Hemoglobin measurementOrdere d By: ED PROVIDER on 12-04-2024 Hemoglobin (Bld) [Mass/Vol] 12.9 g/dL 12.0-15.0 [facility] Immature granulocytes/100 WB C Auto (Bld)Ordered By: ED PROVIDER on 12-04-2024 Immature granulocytes/100 WBC (Bld) 0.600 % 0.0-0.9 [facility] Comment on above: IG% - Immature Granu locytes (promyelocytes, myelocytes and metamyelocytes) > 1% indicates that a LEFT SHIFT is Present. MCV (mean corpuscular volume ) determinationOrdered By: ED PROVIDER on 12-04-2024 MCV (RBC) [Entitic vol] 89.0 fL 81-99 [facility] Mean corpuscular hemoglobin (MCH) determinationOrdered By: ED PROVIDER on 12-04-2024 MCH (RBC) [Entitic mass] 27.9 pg 27.0-32.0 [facility] Mean corpuscular hemoglobin concentration (MCHC) determinationOrdered By: ED PROVIDER on 12-04-2024 MCHC (RBC) [Mass/Vol] 31.4 g/dL Low 32-36 [facility] Mean platelet volume determi nationOrdered By: ED PROVIDER on 12-04-2024 Platelet mean volume (Bld) [Entitic vol] 11.9 fL 6.2-12.0 [facility] Monocyte percentageOrdered B y: ED PROVIDER on 12-04-2024 Monocytes/100 WBC (Bld) 6.5 % 0-10 [facility] Natriuretic peptide.B prohor otoniel N-Terminal [Mass/volume] in Serum or PlasmaOrdered By: Saeid Valladares on 12-04-2024 Natriuretic peptide.B prohormone N-Terminal [Mass/Vol] 62883 pg/mL High <900 [facility] Comment on above: Heart Failure Unlike ly: < 300 pg/mLHeart Failure Likely< 50 Years: > 450 pg/mL50-75 Years: > 900 pg/mL>75 Years: > 1800 pg/mL Neutrophil percentageOrdered By: ED PROVIDER on 12-04-2024 Neutrophils/100 WBC (Bld) 74.2 % High 47-70 [facility] Nucleated red blood cell per centageOrdered By: ED PROVIDER on 12-04-2024 Nucleated RBC/100 WBC (Bld) [Ratio] 0 % 0-5 [facility] Platelet countOrdered By: ED PROVIDER on 12-04-2024 Platelets (Bld) [#/Vol] 158 10*3/uL 150-450 [facility] Potassium measurement (mass/ volume)Ordered By: ED PROVIDER on 12-04-2024 Potassium (Unsp spec) [Mass/Vol] 5.1 mmol/L 3.3-5.1 [facility] RBC Auto (Bld) [#/Vol]Ordere d By: ED PROVIDER on 12-04-2024 RBC (Bld) [#/Vol] 4.62 10*6/uL 4.2-5.4 [facility] Serum creatinine measurement (mass/volume)Ordered By: ED PROVIDER on 12-04-2024 Creatinine [Mass/Vol] 1.21 mg/dL High 0.70-1.20 [facility] Serum glucose measurement (m ass/volume)Ordered By: ED PROVIDER on 12-04-2024 Glucose [Mass/Vol] 398 mg/dL High 70-99 [facility] Serum or plasma calcium cherelle urement (mass/volume)Ordered By: ED PROVIDER on 12-04-2024 Calcium [Mass/Vol] 9.3 mg/dL 7.6-11.0 [facility] Serum or plasma urea nitroge n measurement (mass/volume)Ordered By: ED PROVIDER on 12-04-2024 Urea nitrogen [Mass/Vol] 45 mg/dL High 4-19 [facility] Sodium levelOrdered By: DANIA NEWMAN on 12-04-2024 Sodium [Moles/Vol] 143 mmol/L 133-145 [facility] Troponin T.cardiac [Mass/vol ume] in Serum or Plasma by High sensitivity methodOrdered By: Saeid Valladares on 12-04-2024 Troponin T.cardiac High sensitivity method [Mass/Vol] 35 ng/L High <14 [facility] Comment on above: Delta: 33 on 10/18/ 5-1036 White blood cell (WBC) count Ordered By: ED PROVIDER on 12-04-2024 WBC (Bld) [#/Vol] 6.6 10*3/uL 4.4-11.0 [facility] Culture, Anaerobic Any Sourc paresh 10-24-2024 CUAN No growth in 5 days. Normal [facility] Comment on above: Performed By: #### L 499.0042 #### [facility] [address] [place], [address] pH, Body Fluid [id number] 10-24 PH, BODY FLUID 7.8 Normal Not Estab. [facility] Comment on above: Order Comment: Test( s) [id number], Body Fluidwas developed and its performance characteristicsdetermined by [facility]. It has not been cleared or approvedby the Food and Drug Administration. Result Comment: The reference interval(s) and other method performance specifications have not been established for this body fluid. The test result must be integrated into the clinical context for interpretation. Performed at: [address] [id number] [employer] Lineman: Castro Medina MD, Phone: [phone] Performed By: #### L 501.6900, L500.2500, L503.6005, L100.0100 #### [facility] [address] [place], [address] Body Fluid Culton 10-23-2024 BFC No growth aerobically. Normal [facility] Comment on above: Performed By: #### M 100.2900, M100.2000, M100.4001, L350.1000, L200.0200 ####[facility] [address] [place], [address] Culture, Blood (WB)on 2024 CUB Blood cultures x2, f rom two different sites No growth in 5 days. Normal [facility] Comment on above: Performed By: #### L 501.6900, L500.2500, L503.6005, L100.0100 #### [facility] [address] [place], [address] Basic Metabolic Profile (BMP )on 10-20-2024 BUN Normal 4-19 [facility] Comment on above: Result Comment: Canc elled via OM: Order cancelled - Patient discharged Performed By: #### L 500.2500 #### [facility] [address] [place], [address] BUN/CRE Normal 10-20 [facility] Comment on above: Result Comment: Canc elled via OM: Order cancelled - Patient discharged Performed By: #### L 500.2500 #### [facility] [address] [place], [address] Calcium Normal 7.6-11.0 [facility] Comment on above: Result Comment: Canc elled via OM: Order cancelled - Patient discharged Performed By: #### L 500.2500 #### [facility] [address] [place], [address] CL Normal 98-108 [facility] Comment on above: Result Comment: Canc elled via OM: Order cancelled - Patient discharged Performed By: #### L 500.2500 #### [facility] [address] [place], [address] CO2 Normal 21.0-32.0 [facility] Comment on above: Result Comment: Canc elled via OM: Order cancelled - Patient discharged Performed By: #### L 500.2500 #### [facility] [address] [place], [address] CREAT,SERUM Normal 0.70-1.20 [facility] Comment on above: Result Comment: Canc elled via OM: Order cancelled - Patient discharged Performed By: #### L 500.2500 #### [facility] [address] [place], [address] eGFR Normal >60 [facility] Comment on above: Result Comment: Canc elled via OM: Order cancelled - Patient discharged Performed By: #### L 500.2500 #### [facility] [address] [place], [address] GAP Normal 5-15 [facility] Comment on above: Result Comment: Canc elled via OM: Order cancelled - Patient discharged Performed By: #### L 500.2500 #### [facility] [address] [place], [address] GLU Normal 70-99 [facility] Comment on above: Result Comment: Canc elled via OM: Order cancelled - Patient discharged Performed By: #### L 500.2500 #### [facility] [address] [place], [address] Potassium Normal 3.3-5.1 [facility] Comment on above: Result Comment: Canc elled via OM: Order cancelled - Patient discharged Performed By: #### L 500.2500 #### [facility] [address] [place], [address] Basic Metabolic Profile (BMP) Normal 133-145 [facility] Comment on above: Result Comment: Canc elled via OM: Order cancelled - Patient discharged Performed By: #### L 500.2500 #### [facility] [address] [place], [address] Body Fluid Cell Count+Diffon 10-20-2024 PATH COMM/BF Reviewed Normal [facility] Comment on above: Order Comment: The r [...] #### M 100.2900, M100.2000, M100.4001, L350.1000, L200.0200 ####[facility] [address] [place], [address] Absolute lymphocyte countOrd ered By: Darvin Posey on 10-19-2024 Lymphocytes Auto (Unsp spec) [#/Vol] 1.73 10*3/uL 0.83-4.51 [facility] Absolute neutrophil countOrd ered By: Darvin Posey on 10-19-2024 Neutrophils (Bld) [#/Vol] 4.0 10*3/uL 2.0-7.7 [facility] Anaerobic cultureOrdered By: Darvin Posey on 10-19-2024 Bacteria identified Anaer cx Nom (Unsp spec) No growth in 5 days. [facility] Anion gap in Serum or Plasma Ordered By: Darvin Posey on 10-19-2024 Anion gap [Moles/Vol] 11 mmol/L 5-15 [facility] Automated lymphocyte count a s percentage of total leukocytesOrdered By: Darvin Posey on 10-19-2024 Lymphocytes/100 WBC Auto (Unsp spec) 26.5 % 19-41 [facility] BUN/creatinine ratioOrdered By: Darvin Posey on 10-19-2024 Urea nitrogen/Creatinine [Mass ratio] 35.2 mg/mg High 10-20 [facility] Basophil percentageOrdered B y: Darvin Posey on 10-19-2024 Basophils/100 WBC (Bld) 0.5 % 0-1 [facility] Bedside Glucoseon 10-19-2024 FINGERSTICK GLU 154 mg/dL High 74-106 [facility] Comment on above: Result Comment: LUCIO GEMENT OF PATIENT CARE PER NURSING PROTOCOL Performed By: #### L 501.080 ####[facility] [address] [place], [place], [address] FINGERSTICK GLU 181 mg/dL High 74-106 [facility] Comment on above: Result Comment: LUCIO GEMENT OF PATIENT CARE PER NURSING PROTOCOL Performed By: #### L 501.6900, L500.2500, L503.6005, L100.0100 #### [facility] [address] [place], [address] FINGERSTICK GLU 275 mg/dL High 74-106 [facility] Comment on above: Result Comment: LUCIO HOFFMANELISABETH OF PATIENT CARE PER NURSING PROTOCOL Performed By: #### L 501.6900, L500.2500, L503.6005, L100.0100 #### [facility] [address] [place], [address] Bilirubin, totalOrdered By: Darvin Posey on 10-19-2024 Bilirubin [Mass/Vol] 0.29 mg/dL 0.00-1.30 [facility] Body fluid appearance (nomin al result)Ordered By: Darvin Posey on 10-19-2024 Appearance (Body fld) CLEAR [facility] Body fluid color determinati onOrdered By: Darvin Posey on 10-19-2024 Color (Body fld) YELLOW [facility] Body fluid lactate dehydroge nase measurement (enzymatic activity/volume) by pyruvateOrdered By: Darvin Posey on 10-19-2024 LDH Pyruvate to lactate reaction (Body fld) [Catalytic activity/Vol] 82 Units/L Not Establ. [facility] Body fluid leukocytes count (number/volume)Ordered By: Darvin Posey on 10-19-2024 WBC (Body fld) [#/Vol] 0.150 10*3/uL [facility] Body fluid lymphocytes/100 l eukocytesOrdered By: Darvin Posey on 10-19-2024 Lymphocytes/100 WBC (Body fld) 45 % [facility] Body fluid macrophage countO rdered By: Darvin Posey on 10-19-2024 Macrophages (Body fld) [#/Vol] 24 % [facility] Body fluid mesothelial cell percentageOrdered By: Darvin Posey on 10-19-2024 Mesothelial cells/100 WBC (Body fld) 10 % [facility] Body fluid mononuclear cell percentageOrdered By: Darvin Posey on 10-19-2024 Mononuclear cells/100 WBC (Body fld) 88.7 % [facility] Body fluid other cell count as percentage of leukocytesOrdered By: Darvin Posey on 10-19-2024 Other cells/100 WBC (Body fld) 1 % [facility] Comment on above: EOSINOPHIL Body fluid pHOrdered By: Neetu Posey on 10-19-2024 pH (Body fld) 7.8 [pH] Not Estab. [facility] Comment on above: The reference interv al(s) and other method performance specificationshave not been established for this body fluid. The test result must beintegrated into the clinical context for interpretation.Performed at: [address] [id number] Director: Castro Medina MD, Phone: [phone] Body fluid protein measureme nt (mass/volume)Ordered By: Darvin Posey on 10-19-2024 Protein (Body fld) [Mass/Vol] 1.5 g/dL Not Establ. [facility] Body fluid segmented neutrop hils count (number/volume)Ordered By: Darvin Posey on 10-19-2024 Segmented neutrophils (Body fld) [#/Vol] 8 % [facility] Body fluid total cell countO rdered By: Darvin Posey on 10-19-2024 Cells Counted Total (Body fld) [#] 0.188 10^3/ul High 0.000-0.00 0 [facility] Comment on above: This is the Total Nu mber of Nucleated Cell Types in the Body Fluid. CBC W/Diff, Automatedon 10-04 Absolute Lymph 1.73 X10 3/uL Normal 0.83-4.51 [facility] Comment on above: Performed By: #### L 001.0705, L501.9985, L100.0100, L501.9520, L504.2610, L500.4050 ####[facility] [address] [place], [place], [address] Absolute Neut 4.0 X10 3/uL Normal 2.0-7.7 [facility] Comment on above: Performed By: #### L 001.0705, L501.9985, L100.0100, L501.9520, L504.2610, L500.4050 ####[facility] [address] [place], [address] Basophils/100 WBC (Bld) 0.5 % Normal 0-1 [facility] Comment on above: Performed By: #### L 001.0705, L501.9985, L100.0100, L501.9520, L504.2610, L500.4050 ####[facility] [address] [place], [address] Eosinophils/100 WBC (Bld) 2.0 % Normal 0-5 [facility] Comment on above: Performed By: #### L 001.0705, L501.9985, L100.0100, L501.9520, L504.2610, L500.4050 ####[facility] [address] [place], [address] Erythrocyte distribution width (RBC) [Ratio] 14.5 % Normal 11.6-14.6 [facility] Comment on above: Performed By: #### L 001.0705, L501.9985, L100.0100, L501.9520, L504.2610, L500.4050 ####[facility] [address] [place], [address] Hematocrit (Bld) [Volume fraction] 33.1 % Low 37-47 [facility] Comment on above: Performed By: #### L 001.0705, L501.9985, L100.0100, L501.9520, L504.2610, L500.4050 ####[facility] [address] [place], [address] Hemoglobin (Bld) [Mass/Vol] 11.0 g/dL Low 12.0-15.0 [facility] Comment on above: Performed By: #### L 001.0705, L501.9985, L100.0100, L501.9520, L504.2610, L500.4050 ####[facility] [address] [place], [address] IG% 1.700 High 0.0-0.9 [facility] Comment on above: Result Comment: IG% - Immature Granulocytes (promyelocytes, myelocytes and metamyelocytes) > 1% indicates that a LEFT SHIFT is Present. Performed By: #### L 001.0705, L501.9985, L100.0100, L501.9520, L504.2610, L500.4050 ####[facility] [address] [place], [address] Lymphocytes/100 WBC (Bld) 26.5 % Normal 19-41 [facility] Comment on above: Performed By: #### L 001.0705, L501.9985, L100.0100, L501.9520, L504.2610, L500.4050 ####[facility] [address] [place], [address] MCH (RBC) [Entitic mass] 29.3 pg Normal 27.0-32.0 [facility] Comment on above: Performed By: #### L 001.0705, L501.9985, L100.0100, L501.9520, L504.2610, L500.4050 ####[facility] [address] [place], [address] MCHC (RBC) [Mass/Vol] 33.2 g/dL Normal 32-36 [facility] Comment on above: Performed By: #### L 001.0705, L501.9985, L100.0100, L501.9520, L504.2610, L500.4050 ####[facility] [address] [place], [address] MCV (RBC) [Entitic vol] 88.3 fL Normal 81-99 [facility] Comment on above: Performed By: #### L 001.0705, L501.9985, L100.0100, L501.9520, L504.2610, L500.4050 ####[facility] [address] [place], [address] Monocytes/100 WBC (Bld) 7.7 % Normal 0-10 [facility] Comment on above: Performed By: #### L 001.0705, L501.9985, L100.0100, L501.9520, L504.2610, L500.4050 ####[facility] [address] [place], [address] Neutrophils/100 WBC (Bld) 61.6 % Normal 47-70 [facility] Comment on above: Performed By: #### L 001.0705, L501.9985, L100.0100, L501.9520, L504.2610, L500.4050 ####[facility] [address] [place], [address] Nucleated RBC (Bld) [#/Vol] 0 10*3/uL Normal 0-5 [facility] Comment on above: Performed By: #### L 001.0705, L501.9985, L100.0100, L501.9520, L504.2610, L500.4050 ####[facility] [address] [place], [address] Platelet mean volume (Bld) [Entitic vol] 10.0 fL Normal 6.2-12.0 [facility] Comment on above: Performed By: #### L 001.0705, L501.9985, L100.0100, L501.9520, L504.2610, L500.4050 ####[facility] [address] [place], [address] Platelets (Bld) [#/Vol] 199 10*3/uL Normal 150-450 [facility] Comment on above: Performed By: #### L 001.0705, L501.9985, L100.0100, L501.9520, L504.2610, L500.4050 ####[facility] [address] [place], [address] RBC (Bld) [#/Vol] 3.75 10*6/uL Low 4.2-5.4 [facility] Comment on above: Performed By: #### L 001.0705, L501.9985, L100.0100, L501.9520, L504.2610, L500.4050 ####[facility] [address] [place], [address] RDW SD 45.1 fl High 35.1-43.9 [facility] Comment on above: Performed By: #### L 001.0705, L501.9985, L100.0100, L501.9520, L504.2610, L500.4050 ####[facility] [address] [place], [address] WBC (Bld) [#/Vol] 6.5 10*3/uL Normal 4.4-11.0 [facility] Comment on above: Performed By: #### L 001.0705, L501.9985, L100.0100, L501.9520, L504.2610, L500.4050 ####[facility] [address] [place], [address] Carbon dioxide, total [Moles /volume] in Central venous bloodOrdered By: Darvin Posey on 10-19-2024 CO2 [Moles/Vol] 22.2 mmol/L 21.0-32.0 [facility] Chest Insp/Exp 2 Viewon 10-04 Chest Insp/Exp 2 View [facility] Imaging Services [address] [place], [place] [address] Chest Insp/Exp 2 View MR#: [id number] Acct: [id number] Name: MARIA ISABEL VANN Rep #: [id number] : 1970 F 54 From: Fred Herrera MD PCP: Dr. Sapna Ray DO Status: ADM IN Study: Chest Insp/Exp 2 View Date of Exam: 10/19/24 Exam# [id number] Ordering Dr: Carlos Pimentel EXAM: XR Chest, [...] Pulmonary venous congestion. Reading Location: [facility] CC: Dr. Carlos Pimentel MD; Dr. Sapna Ray DO Residential Manager: Signed Normal [facility] Chloride assayOrdered By: Khanh Posey on 10-19-2024 Chloride [Moles/Vol] 103 mmol/L 98-108 [facility] Comprehensive Metabolic Prof ilon 10-19-2024 Albumin [Mass/Vol] 3.3 g/dL Low 3.5-5.0 [facility] Comment on above: Performed By: #### L 001.0705, L501.9985, L100.0100, L501.9520, L504.2610, L500.4050 ####[facility] [address] [place], [place], [address] ALK PHOS 80 U/L Normal 35-104 [facility] Comment on above: Performed By: #### L 001.0705, L501.9985, L100.0100, L501.9520, L504.2610, L500.4050 ####[facility] [address] [place], [address] ALT [Catalytic activity/Vol] 28 U/L Normal <=34 [facility] Comment on above: Performed By: #### L 001.0705, L501.9985, L100.0100, L501.9520, L504.2610, L500.4050 ####[facility] [address] [place], [address] AST [Catalytic activity/Vol] 36 U/L High <=31 [facility] Comment on above: Performed By: #### L 001.0705, L501.9985, L100.0100, L501.9520, L504.2610, L500.4050 ####[facility] [address] [place], [address] Bilirubin [Mass/Vol] 0.29 mg/dL Normal 0.00-1.30 [facility] Comment on above: Performed By: #### L 001.0705, L501.9985, L100.0100, L501.9520, L504.2610, L500.4050 ####[facility] [address] [place], [address] BUN/CRE 35.2 RATIO High 10-20 [facility] Comment on above: Performed By: #### L 001.0705, L501.9985, L100.0100, L501.9520, L504.2610, L500.4050 ####[facility] [address] [place], [address] Calcium [Mass/Vol] 9.0 mg/dL Normal 7.6-11.0 [facility] Comment on above: Performed By: #### L 001.0705, L501.9985, L100.0100, L501.9520, L504.2610, L500.4050 ####[facility] [address] [place], [address] Chloride [Moles/Vol] 103 mmol/L Normal 98-108 [facility] Comment on above: Performed By: #### L 001.0705, L501.9985, L100.0100, L501.9520, L504.2610, L500.4050 ####[facility] [address] [place], [address] CO2 [Moles/Vol] 22.2 mmol/L Normal 21.0-32.0 [facility] Comment on above: Performed By: #### L 001.0705, L501.9985, L100.0100, L501.9520, L504.2610, L500.4050 ####[facility] [address] [place], [address] Creatinine [Mass/Vol] 0.86 mg/dL Normal 0.70-1.20 [facility] Comment on above: Performed By: #### L 001.0705, L501.9985, L100.0100, L501.9520, L504.2610, L500.4050 ####[facility] [address] [place], [address] ECRCL 83.55 ml/min Normal 50-250 [facility] Comment on above: Performed By: #### L 001.0705, L501.9985, L100.0100, L501.9520, L504.2610, L500.4050 ####[facility] [address] [place], [address] GAP 11 Normal 5-15 [facility] Comment on above: Performed By: #### L 001.0705, L501.9985, L100.0100, L501.9520, L504.2610, L500.4050 ####[facility] [address] [place], [address] GFR/1.73 sq M.predicted among non-blacks MDRD (S/P/Bld) [Vol rate/Area] 81 mL/min/{1.73_m2} Normal >60 [facility] Comment on above: Result Comment: mL/m in/1.73m2 CKD-EPI Creatinine Equation (2020) Performed By: #### L 001.0705, L501.9985, L100.0100, L501.9520, L504.2610, L500.4050 ####[facility] [address] [place], [address] Glucose [Mass/Vol] 299 mg/dL High 70-99 [facility] Comment on above: Performed By: #### L 001.0705, L501.9985, L100.0100, L501.9520, L504.2610, L500.4050 ####[facility] [address] [place], [address] Potassium [Moles/Vol] 5.0 mmol/L Normal 3.3-5.1 [facility] Comment on above: Performed By: #### L 001.0705, L501.9985, L100.0100, L501.9520, L504.2610, L500.4050 ####[facility] [address] [place], [address] Sodium [Moles/Vol] 136 mmol/L Normal 133-145 [facility] Comment on above: Performed By: #### L 001.0705, L501.9985, L100.0100, L501.9520, L504.2610, L500.4050 ####[facility] [address] [place], [address] Urea nitrogen [Mass/Vol] 30 mg/dL High 4-19 [facility] Comment on above: Performed By: #### L 001.0705, L501.9985, L100.0100, L501.9520, L504.2610, L500.4050 ####[facility] [address] [place], [place], [address] Cytology report of Body flui d Cyto stainOrdered By: Darvin Posey on 10-19-2024 Cytology report Cyto stain Doc (Body fld) SEE PATHOLOGY REPORT [facility] Comment on above: Specimen submitted t o Anatomical Pathology Department for testing. Cytology, Body Fluid / CSFon 10-19-2024 CYTOLOGY,BF/CSF SEE PATHOLOGY REPORT Normal [facility] Comment on above: Result Comment: Spec imen submitted to Anatomical Pathology Department for testing. Performed By: #### L 499.0042 #### [facility] [address] [place], [place], [address] Electrocardiogram reportOrde red By: Rahat Franklin on 10-19-2024 EKG study [facility] Cardiovascular Services [address] [place] [address] 12 Lead EKG 10/18/24 1008 MR#: [id number] Acct: [id number] Name: MARIA ISABEL VANN Rep #:[id number] : 1970 54 From: Rahat sharp MD Attending Dr: Dr. Darvin Posey, Status: ADM IN Ordering Dr: Satya Mendenhall DO D ate: 10/18/24 Location: [facility] Sex: F C Admitted: 10/18/24 Test Reason [...] undetermined Abnormal ECG Confirmed by Rahat Franklin ([id number]), society editor PHOENIX FLORES ([id number]) on 10/19/2024 11:24:53 AM Referred By: Confirmed By: Rahat Franklin 10/19/24 1124 Date _ Rahat Franklin MD CC: Dr. Satya Mendenhall, DO; Dr. Darvin Posey, DO; Dr. aSpna Ray DO ~ Signed [facility] Other Phone: Eosinophil percentageOrdered By: Darvin Posey on 10-19-2024 Eosinophils/100 WBC (Bld) 2.0 % 0-5 [facility] Erythrocyte distribution wid th ratioOrdered By: Darvin Posey on 10-19-2024 Erythrocyte distribution width (RBC) [Ratio] 14.5 % 11.6-14.6 [facility] Erythrocyte distribution wid th standard deviationOrdered By: Darvin Posey on 10-19-2024 Erythrocyte distribution width (RBC) [Ratio] 45.1 fl High 35.1-43.9 [facility] Glomerular filtration rate ( GFR) estimation/1.73 sq m using serum, plasma, or whole bOrdered By: Darvin Posey on 10-19-2024 GFR/1.73 sq M.predicted among non-blacks MDRD (S/P/Bld) [Vol rate/Area] 81 mL/min/{1.73_m2} >60 [facility] Comment on above: mL/min/1.73m2 CKD-EP I Creatinine Equation (2020) Glucose measurement at [facility] deOrdered By: Darvin Posey on 10-19-2024 Glucose [Mass/Vol] 154 mg/dL High 74-106 [facility] Comment on above: MANAGEMENT OF PATIEN T CARE PER NURSING PROTOCOL Glucose, Body Fluidon 2024 GLUC, BODY FLD 248 mg/dL Normal Not Establ. [facility] Comment on above: Performed By: #### L 501.6900, L500.2500, L503.6005, L100.0100 #### [facility] [address] [place], [address] Gram Stainon 10-19-2024 GS Centrifuged Specimen ? Culture performed on centrifuged specimen Gram Stain No organisms seen No cells seen Normal [facility] Comment on above: Performed By: #### M 100.2900, M100.2000, M100.4001, L350.1000, L200.0200 ####[facility] [address] [place], [place], [address] Gram stainOrdered By: Darvin xiong on 10-19-2024 Microscopic observation Gram stain Nom (Unsp spec) [facility] Hematocrit Auto (Bld) [Volum e fraction]Ordered By: Darvin Posey on 10-19-2024 Hematocrit (Bld) [Volume fraction] 33.1 % Low 37-47 [facility] Hemoglobin A1con 10-19-2024 HbA1c (Bld) [Mass fraction] 12.3 % High <=5.6 [facility] Comment on above: Result Comment: Norm al < 5.7 % Prediabetic 5.7 - 6.4 % Diabetic >or= 6.5 % Please note range changes. Performed By: #### L 001.0705, L501.9985, L100.0100, L501.9520, L504.2610, L500.4050 ####[facility] [address] [place], [place], [address] Hemoglobin A1c percentageOrd ered By: Darvin Posey on 10-19-2024 HbA1c (Bld) [Mass fraction] 12.3 % High <5.7 [facility] Comment on above: Normal < 5.7 % Predi abetic 5.7 - 6.4 % Diabetic >or= 6.5 % Please note range changes. Hemoglobin measurementOrdere d By: Darvin Posey on 10-19-2024 Hemoglobin (Bld) [Mass/Vol] 11.0 g/dL Low 12.0-15.0 [facility] Immature granulocytes/100 WB C Auto (Bld)Ordered By: Darvin Posey on 10-19-2024 Immature granulocytes/100 WBC (Bld) 1.700 % High 0.0-0.9 [facility] Comment on above: IG% - Immature Granu locytes (promyelocytes, myelocytes and metamyelocytes) > 1% indicates that a LEFT SHIFT is Present. LDHon 10-19-2024 LDH 221 U/L Normal 84-246 [facility] Comment on above: Performed By: #### L 001.0705, L501.9985, L100.0100, L501.9520, L504.2610, L500.4050 ####[facility] [address] [place], [address] LDH,Body Fluidon 10-19-2024 LDH,BF 82 Units/L Normal Not Establ. [facility] Comment on above: Performed By: #### L 501.6900, L500.2500, L503.6005, L100.0100 #### [facility] [address] [place], [address] Laboratory - Chemistry and C hemistry - challengeOrdered By: Darvin Posey on 10-19-2024 AST [Catalytic activity/Vol] 36 U/L High <32 [facility] Lactate dehydrogenase (LDH) measurementOrdered By: Darvin Posey on 10-19-2024 LDH [Catalytic activity/Vol] 221 U/L 84-246 [facility] MCV (mean corpuscular volume ) determinationOrdered By: Darvin Posey on 10-19-2024 MCV (RBC) [Entitic vol] 88.3 fL 81-99 [facility] Mean corpuscular hemoglobin (MCH) determinationOrdered By: Darvin Posey on 10-19-2024 MCH (RBC) [Entitic mass] 29.3 pg 27.0-32.0 [facility] Mean corpuscular hemoglobin concentration (MCHC) determinationOrdered By: Darvin Posey on 10-19-2024 MCHC (RBC) [Mass/Vol] 33.2 g/dL 32-36 [facility] Mean platelet volume determi nationOrdered By: Darvin Posey on 10-19-2024 Platelet mean volume (Bld) [Entitic vol] 10.0 fL 6.2-12.0 [facility] Monocyte detectionOrdered By : Darvin Posey on 10-19-2024 Monocytes/100 WBC (Bld) 12 % [facility] Monocyte percentageOrdered B y: Darvin Posey on 10-19-2024 Monocytes/100 WBC (Bld) 7.7 % 0-10 [facility] Neutrophil percentageOrdered By: Darvin Posey on 10-19-2024 Neutrophils/100 WBC (Bld) 61.6 % 47-70 [facility] No Panel InformationOrdered By: Darvin Posey on 10-19-2024 Body Fluid Comment 2 SEE COMMENT [facility] Body Fluid RBC 605 /mm3 [facility] Nucleated red blood cell per centageOrdered By: Darvin Posey on 10-19-2024 Nucleated RBC/100 WBC (Bld) [Ratio] 0 % 0-5 [facility] Operative Reporton Operative Report [facility] Medical Records Department [address] [place] [address] Operative Report 10/19/24 1347 MR#: [id number] Acct: [id number] Name: MARIA ISABEL VANN Rep #: [id number] : 1970 54 From: Lyndsey Armstrong 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 Sapna Ray DO Status:ADM IN [facility] Associated Problem List Diagnoses (1) Pleural effusion: Multi Select Codes Radiology Radiology US Procedures: 23812 Thoracentesis Operative Report (Standard) Operative Information Date of Procedure: 10/19/24 Pre-Operative Diagnosis: Pleural effusion Post-Operative Diagnosis: Pleural effusion Surgery/Procedure Performed: Ultrasound-guided thoracentesis opal miner: No Type of Anesthesia: Local Procedure Start [...] local anesthesia. Under ultrasound guidance, a 5- Thai thoracentesis needle/catheter system was advanced into the [...] 10/19/24 1353 Cosigner Signature (if applicable): CC: REGAN Armstrong; Dr. Sapna Ray DO Signed Normal [facility] Pathologist interpretation o f Body fluid testsOrdered By: Darvin Posey on 10-19-2024 Pathologist interpretation (Body fld) [Interp] May follow [facility] Pathologist interpretation (Body fld) [Interp] Reviewed [facility] Comment on above: Reactive Mesothelial Cells, Chronic Inflammation.No Malignant Cells Identified.MS:1202pm 10/20/24Previous reported result: May follow Edited by: LONA on 10/20/24:1355Reactive Mesothelial Cells; Chronic Inflammation.No Malignant Cells Identified.MS: 1202pm 10/20/24 AMENDED REPORT 10/20/24 1355 PATH COMM/BF previously reported as: May follow Platelet countOrdered By: Khanh Posey on 10-19-2024 Platelets (Bld) [#/Vol] 199 10*3/uL 150-450 [facility] Potassium measurement (mass/ volume)Ordered By: Darvin Posey on 10-19-2024 Potassium (Unsp spec) [Mass/Vol] 5.0 mmol/L 3.3-5.1 [facility] Protein, Body Fluidon 2024 Protein [Mass/Vol] 1.5 g/dL Normal Not Establ. [facility] Comment on above: Performed By: #### L 501.6900, L500.2500, L503.6005, L100.0100 #### [facility] [address] [place], [address] Protein, Totalon 10-19-2024 Albumin/Globulin [Mass ratio] 1.2 {ratio} Normal 0.9-2.4 [facility] Comment on above: Performed By: #### L 001.0705, L501.9985, L100.0100, L501.9520, L504.2610, L500.4050 ####[facility] [address] [place], [address] Globulin (S) [Mass/Vol] 2.9 g/dL Normal 2.2-4.2 [facility] Comment on above: Performed By: #### L 001.0705, L501.9985, L100.0100, L501.9520, L504.2610, L500.4050 ####[facility] [address] [place], [address] T PROT 6.2 g/dL Normal 5.9-8.4 [facility] Comment on above: Performed By: #### L 001.0705, L501.9985, L100.0100, L501.9520, L504.2610, L500.4050 ####[facility] [address] [place], [address] RBC Auto (Bld) [#/Vol]Ordere d By: Darvin Posey on 10-19-2024 RBC (Bld) [#/Vol] 3.75 10*6/uL Low 4.2-5.4 [facility] Serum creatinine measurement (mass/volume)Ordered By: Darvin Posey on 10-19-2024 Creatinine [Mass/Vol] 0.86 mg/dL 0.70-1.20 [facility] Serum globulin measurementOr dered By: Darvin Posey on 10-19-2024 Globulin (S) [Mass/Vol] 2.9 g/dL 2.2-4.2 [facility] Serum glucose measurement (m ass/volume)Ordered By: Darvin Posey on 10-19-2024 Glucose [Mass/Vol] 299 mg/dL High 70-99 [facility] Serum or plasma alanine gonzalez otransferase (ALT) measurementOrdered By: Darvin Posey on 10-19-2024 ALT [Catalytic activity/Vol] 28 U/L <35 [facility] Serum or plasma albumin cherelle urement (mass/volume)Ordered By: Darvin Posey on 10-19-2024 Albumin [Mass/Vol] 3.3 g/dL Low 3.5-5.0 [facility] Serum or plasma albumin/glob ulin mass ratioOrdered By: Darvin Posey on 10-19-2024 Albumin/Globulin [Mass ratio] 1.2 {ratio} 0.9-2.4 [facility] Serum or plasma alkaline caryl sphatase measurementOrdered By: Darvni Posey on 10-19-2024 ALP [Catalytic activity/Vol] 80 U/L 35-104 [facility] Serum or plasma calcium cherelle urement (mass/volume)Ordered By: Darvin Posey on 10-19-2024 Calcium [Mass/Vol] 9.0 mg/dL 7.6-11.0 [facility] Serum or plasma urea nitroge n measurement (mass/volume)Ordered By: Darvin Posey on 10-19-2024 Urea nitrogen [Mass/Vol] 30 mg/dL High 4-19 [facility] Sodium levelOrdered By: Darvin Posey on 10-19-2024 Sodium [Moles/Vol] 136 mmol/L 133-145 [facility] Special Stain Group IIon Special Stain Group II Patient Age/Sex Location Account Attending Physician MARIA ISABEL VANN 54/F [facility] [id number] Dr. Darvin Posey DO Specimen: [id number] Received: 10/19/24-1399 Status: NENA Radha Num: [id number] Spec Type: Fluid Subm Dr: Dr. Darvin [...] for cytology and cell block preparation. CPT: 92607,70337 Signed (signature on file) Dr. Pippa Arboleda MD 10/21/24 1437 Normal [facility] Comment on above: Performed By: #### L 501.6900, L500.2500, L503.6005, L100.0100 #### [facility] [address] [place], [address] Specimen source identificati on of body fluidOrdered By: Darvin Posey on 10-19-2024 Specimen source Nom (Body fld) PLEURAL FLUID [facility] TSH DL <= 0.005 mIU/L QnOrde red By: Darvin Posey on 10-19-2024 TSH Qn 1.130 uIU/mL 0.300-4.20 0 [facility] Thyroid Stim Hormone (TSH)on 10-19-2024 TSH 1.130 uIU/mL Normal 0.300-4.20 0 [facility] Comment on above: Performed By: #### L 001.0705, L501.9985, L100.0100, L501.9520, L504.2610, L500.4050 ####[facility] [address] [place], [address] Total proteinOrdered By: Neetu Posey on 10-19-2024 Protein [Mass/Vol] 6.2 g/dL 5.9-8.4 [facility] White blood cell (WBC) count Ordered By: Darvin Posey on 10-19-2024 WBC (Bld) [#/Vol] 6.5 10*3/uL 4.4-11.0 [facility] 12 Lead EKGon 10-18-2024 12 Lead EKG [facility] Cardiovascular Services [address] [place] [address] 12 Lead EKG 10/18/24 1008 MR#: [id number] Acct: [id number] Name: MARIA ISABEL VANN Rep #: [id number] : 1970 54 From: Rahat Franklin MD Attending Dr: Dr. Darvin Posey DO Status: ADM IN Ordering Dr: Satya Mendenhall DO Date: 5 Location: [facility] Sex: F C Admitted: 10/18/24 Test Reason [...] undetermined Abnormal ECG Confirmed by Rahat Franklin ([id number]), society editor PHOENIX FLORES ([id number]) on 10/19/2024 11:24:53 AM Referred By: Confirmed By: Rahat Franklin 10/19/24 1124 Date Rahat Franklin MD CC: Dr. Satya Mendenhall DO; Dr. Darvin Posey DO; Dr. Sapna Ray DO Signed Normal [facility] Absolute lymphocyte countOrd ered By: Satya Mendenhall on 10-18-2024 Lymphocytes Auto (Unsp spec) [#/Vol] 1.63 10*3/uL 0.83-4.51 [facility] Absolute neutrophil countOrd ered By: Satya Mendenhall on 10-18-2024 Neutrophils (Bld) [#/Vol] 3.3 10*3/uL 2.0-7.7 [facility] Anion gap in Serum or Plasma Ordered By: Satya Mendenhall on 10-18-2024 Anion gap [Moles/Vol] 12 mmol/L - [facility] Automated lymphocyte count a s percentage of total leukocytesOrdered By: Satya Mendenhall on 10-18-2024 Lymphocytes/100 WBC Auto (Unsp spec) 28.6 % - [facility] BUN/creatinine ratioOrdered By: Satya Mendenhall on 10-18-2024 Urea nitrogen/Creatinine [Mass ratio] 36.8 mg/mg High 10- [facility] Basic Metabolic Profile (BMP )on 10-18-2024 BUN/CRE 36.8 RATIO High - [facility] Comment on above: Performed By: #### L 100.0100, L300.8000, L500.2500 ####[facility] [address] [place], [address] Calcium [Mass/Vol] 8.7 mg/dL Normal 7.6-11.0 [facility] Comment on above: Performed By: #### L 100.0100, L300.8000, L500.2500 ####[facility] [address] [place], [address] Chloride [Moles/Vol] 102 mmol/L Normal 98-108 [facility] Comment on above: Performed By: #### L 100.0100, L300.8000, L500.2500 ####[facility] [address] [place], [address] CO2 [Moles/Vol] 21.3 mmol/L Normal 21.0-32.0 [facility] Comment on above: Performed By: #### L 100.0100, L300.8000, L500.2500 ####[facility] [address] [place], [address] Creatinine [Mass/Vol] 1.01 mg/dL Normal 0.70-1.20 [facility] Comment on above: Performed By: #### L 100.0100, L300.8000, L500.2500 ####[facility] [address] [place], [address] ECRCL 71.13 ml/min Normal 50-250 [facility] Comment on above: Performed By: #### L 100.0100, L300.8000, L500.2500 ####[facility] [address] [place], [address] GAP 12 Normal 5-15 [facility] Comment on above: Performed By: #### L 100.0100, L300.8000, L500.2500 ####[facility] [address] [place], [address] GFR/1.73 sq M.predicted among non-blacks MDRD (S/P/Bld) [Vol rate/Area] 67 mL/min/{1.73_m2} Normal >60 [facility] Comment on above: Result Comment: mL/m in/1.73m2 CKD-EPI Creatinine Equation (2020) Performed By: #### L 100.0100, L300.8000, L500.2500 ####[facility] [address] [place], [address] Glucose [Mass/Vol] 412 mg/dL High 70-99 [facility] Comment on above: Performed By: #### L 100.0100, L300.8000, L500.2500 ####[facility] [address] [place], [address] Potassium [Moles/Vol] 5.3 mmol/L High 3.3-5.1 [facility] Comment on above: Performed By: #### L 100.0100, L300.8000, L500.2500 ####[facility] [address] [place], [address] Sodium [Moles/Vol] 135 mmol/L Normal 133-145 [facility] Comment on above: Performed By: #### L 100.0100, L300.8000, L500.2500 ####[facility] [address] [place], [address] Urea nitrogen [Mass/Vol] 37 mg/dL High 4-19 [facility] Comment on above: Performed By: #### L 100.0100, L300.8000, L500.2500 ####[facility] [address] [place], [address] Basophil percentageOrdered B y: Satya Mendenhall on 10-18-2024 Basophils/100 WBC (Bld) 0.5 % 0-1 [facility] Bedside Glucoseon 10-18-2024 FINGERSTICK GLU 276 mg/dL High 74-106 [facility] Comment on above: Result Comment: LUCIO GEMENT OF PATIENT CARE PER NURSING PROTOCOL Performed By: #### L 501.080 ####[facility] [address] [place], [address] FINGERSTICK GLU 314 mg/dL High 74-106 [facility] Comment on above: Result Comment: LUCIO GEMENT OF PATIENT CARE PER NURSING PROTOCOL Performed By: #### L 501.080 #### [facility] [address] [place], [address] Blood cultureOrdered By: Gerald Mendenhall on 10-18-2024 Bacteria identified Cx Nom (Bld) No growth in 5 days. [facility] Bacteria identified Cx Nom (Bld) No growth in 5 days. [facility] CBC W/Diff, Automatedon 07- Absolute Lymph 1.63 X10 3/uL Normal 0.83-4.51 [facility] Comment on above: Performed By: #### L 100.0100, L300.8000, L500.2500 ####[facility] [address] [place], [address] Absolute Neut 3.3 X10 3/uL Normal 2.0-7.7 [facility] Comment on above: Performed By: #### L 100.0100, L300.8000, L500.2500 ####[facility] [address] [place], [address] Basophils/100 WBC (Bld) 0.5 % Normal 0-1 [facility] Comment on above: Performed By: #### L 100.0100, L300.8000, L500.2500 ####[facility] [address] [place], [address] Eosinophils/100 WBC (Bld) 1.6 % Normal 0-5 [facility] Comment on above: Performed By: #### L 100.0100, L300.8000, L500.2500 ####[facility] [address] [place], [address] Erythrocyte distribution width (RBC) [Ratio] 14.4 % Normal 11.6-14.6 [facility] Comment on above: Performed By: #### L 100.0100, L300.8000, L500.2500 ####[facility] [address] [place], [address] Hematocrit (Bld) [Volume fraction] 30.7 % Low 37-47 [facility] Comment on above: Performed By: #### L 100.0100, L300.8000, L500.2500 ####[facility] [address] [place], [address] Hemoglobin (Bld) [Mass/Vol] 10.2 g/dL Low 12.0-15.0 [facility] Comment on above: Performed By: #### L 100.0100, L300.8000, L500.2500 ####[facility] [address] [place], [address] IG% 2.300 High 0.0-0.9 [facility] Comment on above: Result Comment: IG% - Immature Granulocytes (promyelocytes, myelocytes and metamyelocytes) > 1% indicates that a LEFT SHIFT is Present. Performed By: #### L 100.0100, L300.8000, L500.2500 ####[facility] [address] [place], [address] Lymphocytes/100 WBC (Bld) 28.6 % Normal 19-41 [facility] Comment on above: Performed By: #### L 100.0100, L300.8000, L500.2500 ####[facility] [address] [place], [address] MCH (RBC) [Entitic mass] 29.2 pg Normal 27.0-32.0 [facility] Comment on above: Performed By: #### L 100.0100, L300.8000, L500.2500 ####[facility] [address] [place], [address] MCHC (RBC) [Mass/Vol] 33.2 g/dL Normal 32-36 [facility] Comment on above: Performed By: #### L 100.0100, L300.8000, L500.2500 ####[facility] [address] [place], [address] MCV (RBC) [Entitic vol] 88.0 fL Normal 81-99 [facility] Comment on above: Performed By: #### L 100.0100, L300.8000, L500.2500 ####[facility] [address] [place], [address] Monocytes/100 WBC (Bld) 9.1 % Normal 0-10 [facility] Comment on above: Performed By: #### L 100.0100, L300.8000, L500.2500 ####[facility] [address] [place], [address] Neutrophils/100 WBC (Bld) 57.9 % Normal 47-70 [facility] Comment on above: Performed By: #### L 100.0100, L300.8000, L500.2500 ####[facility] [address] [place], [address] Nucleated RBC (Bld) [#/Vol] 0 10*3/uL Normal 0-5 [facility] Comment on above: Performed By: #### L 100.0100, L300.8000, L500.2500 ####[facility] [address] [place], [address] Platelet mean volume (Bld) [Entitic vol] 10.3 fL Normal 6.2-12.0 [facility] Comment on above: Performed By: #### L 100.0100, L300.8000, L500.2500 ####[facility] [address] [place], [address] Platelets (Bld) [#/Vol] 178 10*3/uL Normal 150-450 [facility] Comment on above: Performed By: #### L 100.0100, L300.8000, L500.2500 ####[facility] [address] [place], [address] RBC (Bld) [#/Vol] 3.49 10*6/uL Low 4.2-5.4 [facility] Comment on above: Performed By: #### L 100.0100, L300.8000, L500.2500 ####[facility] [address] [place], [address] RDW SD 44.6 fl High 35.1-43.9 [facility] Comment on above: Performed By: #### L 100.0100, L300.8000, L500.2500 ####[facility] [address] [place], [address] WBC (Bld) [#/Vol] 5.7 10*3/uL Normal 4.4-11.0 [facility] Comment on above: Performed By: #### L 100.0100, L300.8000, L500.2500 ####[facility] [address] [place], [place], [address] CTA Chest W/WO Contraston CTA Chest W/WO Contrast [facility] Imaging Services [address] [place], [place] [address] CTA Chest W/WO Contrast MR#: [id number] Acct: [id number] Name: MARIA ISABEL VANN Rep #: [id number] : 1970 F 54 From: Fred Herrera MD PCP: Dr. Sapna Ray DO Status: REG ER Study: CTA Chest W/WO Contrast Date of Exam: 10/18/24 Exam# [id number] Ordering Dr: Satya Mendenhall DO EXAM: CT [...] and/or multifocal pneumonia. Reading Location: [facility] CC: Dr. Satya Mendenhall DO; Dr. Sapna Ray DO Residential Manager: Signed Normal [facility] Carbon dioxide, total [Moles /volume] in Central venous bloodOrdered By: Satya Mendenhall on 10-18-2024 CO2 [Moles/Vol] 21.3 mmol/L 21.0-32.0 [facility] Chest PA and Lateralon 10-18 Chest PA and Lateral [facility] Imaging Services [address] [place] [address] Chest PA and Lateral MR#: [id number] Acct: [id number] Name: MARIA ISABEL VANN Rep #: [id number] : 1970 F 54 From: Fred Herrera MD PCP: Dr. Sapna Ray DO Status: REG ER Study: Chest PA and Lateral Date of Exam: 10/18/24 Exam# [id number] Ordering Dr: Satya Mendenhall DO EXAM: XR [...] edema. Pneumonia cannot be excluded. Reading [facility] CC: Dr. Satya Mendenhall DO; Dr. Sapna Ray DO Residential Manager: Signed Normal [facility] Chloride assayOrdered By: Alonso Mendenhall on 10-18-2024 Chloride [Moles/Vol] 102 mmol/L 98-108 [facility] D-Dimer Quantitative (DVT/PE )on 10-18-2024 D-DIMER QUANT 1.60 FEU/ug/m Invalid Interpretation Code 0.27-0.49 [facility] Comment on above: Order Comment: CRITI DAMIAN VALUE CALLED TO SEAN GALLEGOS10/18/24 Reilly2 Michelle Schaefer.RESULTS READ BACK BY SAME. Result Comment: D-Di dusty ELEVATED (>0.49): Additional studies and clinical assessments are indicated to conclude diagnosis of: Deep Vein Thrombosis (DVT) or Pulmonary Embolism (PE) Performed By: #### L 100.0100, L300.8000, L500.2500 ####[facility] [address] [place], [address] Echo Complete W/ Contraston 10-18-2024 Echo Complete W/ Contrast [facility] Cardiovascular Services [address] [place] [address] Echo Complete W/ Contrast 10/18/24 0319 MR#: [id number] Acct: [id number] Name: MARIA ISABEL VANN Rep #: [id number] : 1970 54 From: Tez Walker MD Attending Dr: Dr. Darvin Posey DO Status: ADM IN Ordering Dr: Darvin Posey DO Date: 10/18/24 Location: U Sex: F C Admitted: 10/18/24 Reason For [...] Referring Physician: Sapna Ray Performed By: Loida Alvarez RDCS, RVT 10/18/24 1708 Date Tez Walker MD CC: Dr. Darvin Posey DO; Dr. Sapna Ray DO Date Dictated: 10/18/24318 Date Transcribed: 10/18/24 1641 Residential Manager: Signed Normal [facility] Echocardiogram study reportO rdered By: Tez Walker on 10-18-2024 Study report [facility] Cardiovascular Services [address] [place] [address] Echo Complete W/ Contrast 10/18/24318 MR#: [id number] Acct: [id number] Name: MARIA ISABEL VANN Rep #:[id number] : 1970 54 From: Tez De La Paz Attending Dr: Dr. Darvin Posey, Status: ADM IN Ordering Dr: Darvin Posey DO Date: Location: [facility] Sex: F C Admitted: 10/18/24 Reason For [...] Ray Performed By: Loida Alvarez, NANCY, RVT 10/18/24 1708 Date _ Tez Walker MD CC: Dr. Darvin Posey DO; Dr. Sapna Ray DO ~ Date Dictated: 10/18/24 0319 Date Transcribed: 10/18/24 1641 Residential Manager: Signed [facility] Work Phone: Emergency Department Summary on 10-18-2024 Emergency Department Summary [facility] Medical Records Department [address] [place] [address] Emergency Department Summary 10/18/24 MR#: [id number] Acct: [id number] Name: MARIA ISABEL VANN Rep #: [id number] : 1970 54 From: Satya Mendenhall DO PCP: Dr. Sapna Ray DO Status:ADM IN Location: [place] [address] HPI History of Present Illness Chief Complaint: [...] Did recently have a car ride to [place]. Denies any bilateral lower extremity swelling or [...] intact Psych: Cooperative, appropriate mood and affect [facility] Medical History (Updated 10/18/24 @ 13:58 by [...] nasal spray 1 spray intranasal 4X/DAY PRN IN N 10/18/24 Unknown History aerosol (Deep Sea Nasal) allergies Allergy/AdvReac Type Severity Reaction Status Date / Time etodolac (From [facility]) Allergy Rash Verified 01/15/24 12:24 Family History [...] 13:56 b (more content not included)... Normal [facility] Eosinophil percentageOrdered By: Satya Mendenhall on 10-18-2024 Eosinophils/100 WBC (Bld) 1.6 % 0-5 [facility] Erythrocyte distribution wid th ratioOrdered By: Satya Mendenhall on 07-15-2025 Erythrocyte distribution width (RBC) [Ratio] 14.4 % 11.6-14.6 [facility] Erythrocyte distribution wid th standard deviationOrdered By: Satya De Los Santos on 10-18-2024 Erythrocyte distribution width (RBC) [Ratio] 44.6 fl High 35.1-43.9 [facility] Glomerular filtration rate ( GFR) estimation/1.73 sq m using serum, plasma, or whole bOrdered By: Satya Mendenhall on 10-18-2024 GFR/1.73 sq M.predicted among non-blacks MDRD (S/P/Bld) [Vol rate/Area] 67 mL/min/{1.73_m2} >60 [facility] Comment on above: mL/min/1.73m2 CKD-EP I Creatinine Equation (2020) H AND P Exam - [facility] 10-18-2024 H&P Exam - Hospitalist [facility] Medical Records Department [address] [place] [address] H P Exam - Hospitalist 10/18/24 1354 MR#: [id number] Acct: [id number] Name: MARIA ISABEL VANN Rep #: [id number] : 1970 54 From: Darvin Posey DO PCP: Dr. Sapna Ray, Status:REG ER Location: ED HPI - General [...] bilateral large effusions on her chest [facility]. [facility] Medical History (Updated 07/15/25 @ 13:[address] Darvin Posey, DO) [...] nasal spray 1 spray intranasal 4X/DAY PRN IN N 10/18/24 Unknown History aerosol (Deep Sea Nasal) allergies Allergy/AdvReac Type Severity Reaction Status Date / Time etodolac (From [facility]) Allergy Rash Verified 01/15/24 12:24 Family History [...] 10/18/24 10:12 (more content not included)... Normal [facility] Hematocrit Auto (Bld) [Volum e fraction]Ordered By: Satya Mendenhall on 10-18-2024 Hematocrit (Bld) [Volume fraction] 30.7 % Low 37-47 [facility] Hemoglobin measurementOrdere d By: Satya Mendenhall on 10-18-2024 Hemoglobin (Bld) [Mass/Vol] 10.2 g/dL Low 12.0-15.0 [facility] Immature granulocytes/100 WB C Auto (Bld)Ordered By: Satya Mendenhall on 10-18-2024 Immature granulocytes/100 WBC (Bld) 2.300 % High 0.0-0.9 [facility] Comment on above: IG% - Immature Granu locytes (promyelocytes, myelocytes and metamyelocytes) > 1% indicates that a LEFT SHIFT is Present. Influenza virus A and B and SARS-CoV-2 (COVID-19) and Respiratory syncytial virus RNAOrdered By: Satya Mendenhall on 10-18-2024 SARS-CoV-2 (COVID-19) RNA RUTH+probe Ql (Unsp spec) [facility] L499.0042on 10-18-2024 Trop T High Sen 34 ng/L High <=14 [facility] Comment on above: Performed By: #### L 499.0042 #### [facility] [address] [place], [address] L501.4021on 10-18-2024 Trop T High Sen 33 ng/L High <=14 [facility] Comment on above: Performed By: #### L 501.6900, L500.2500, L503.6005, L100.0100 #### [facility] [address] [place], [address] L503.7505on 10-18-2024 Natriuretic peptide B (Bld) [Mass/Vol] 2429 pg/mL High <=900 [facility] Comment on above: Result Comment: Hear t Failure Unlikely: < 300 pg/mL Heart Failure Likely < 50 Years: > 450 pg/mL 50-75 Years: > 900 pg/mL >75 Years: > 1800 pg/mL Performed By: #### L 501.6900, L500.2500, L503.6005, L100.0100 #### [facility] [address] [place], [address] Lactic Acidon 10-18-2024 Lactate [Moles/Vol] 1.4 mmol/L Normal 0.0-2.0 [facility] Comment on above: Order Comment: Y Performed By: #### L 501.6900, L500.2500, L503.6005, L100.0100 #### [facility] [address] [place], [place], [address] Lactic acid measurementOrder ed By: Satya Mendenhall on 10-18-2024 Lactate [Moles/Vol] 1.4 mmol/L 0.0-2.0 [facility] M100.678on 10-18-2024 M100.678 Pending SARS-CoV-2 (COVID 19) Negative INFLUENZA A Negative INFLUENZA B Negative RSV PCR Negative Normal [facility] Comment on above: Performed By: #### L 501.6900, L500.2500, L503.6005, L100.0100 #### [facility] [address] [place], [place], [address] MCV (mean corpuscular volume ) determinationOrdered By: Satya Mendenhall on 10-18-2024 MCV (RBC) [Entitic vol] 88.0 fL 81-99 [facility] Mean corpuscular hemoglobin (MCH) determinationOrdered By: [facility] Center[facility]ua[facility] on 10-18-2024 MCH (RBC) [Entitic mass] 29.2 pg 27.0-32.0 [facility] Mean corpuscular hemoglobin concentration (MCHC) determinationOrdered By: [facility] CentersantiSheri on 10-18-2024 MCHC (RBC) [Mass/Vol] 33.2 g/dL 32-36 [facility] Mean platelet volume determi nationOrdered By: [facility] CenterJuaquin on 10-18-2024 Platelet mean volume (Bld) [Entitic vol] 10.3 fL 6.2-12.0 [facility] Monocyte percentageOrdered B y: [facility] SpringfieldwhitFiliberto on 10-18-2024 Monocytes/100 WBC (Bld) 9.1 % 0-10 [facility] Natriuretic peptide.B prohor otoniel N-Terminal [Mass/volume] in Serum or PlasmaOrdered By: Satya Mendenhall on 10-18-2024 Natriuretic peptide.B prohormone N-Terminal [Mass/Vol] 2429 pg/mL High <900 [facility] Comment on above: Heart Failure Unlike ly: < 300 pg/mLHeart Failure Likely< 50 Years: > 450 pg/mL50-75 Years: > 900 pg/mL>75 Years: > 1800 pg/mL Neutrophil percentageOrdered By: Satya Mendenhall on 10-18-2024 Neutrophils/100 WBC (Bld) 57.9 % 47-70 [facility] Nucleated red blood cell per centageOrdered By: Satya Mendenhall on 10-18-2024 Nucleated RBC/100 WBC (Bld) [Ratio] 0 % 0-5 [facility] Platelet countOrdered By: Alonso Mendenhall on 10-18-2024 Platelets (Bld) [#/Vol] 178 10*3/uL 150-450 [facility] Potassium measurement (mass/ volume)Ordered By: Satya Mendenhall on 10-18-2024 Potassium (Unsp spec) [Mass/Vol] 5.3 mmol/L High 3.3-5.1 [facility] RBC Auto (Bld) [#/Vol]Ordere d By: Satya Mendenhall on 10-18-2024 RBC (Bld) [#/Vol] 3.49 10*6/uL Low 4.2-5.4 [facility] Serum creatinine measurement (mass/volume)Ordered By: Satya Mendenhall on 10-18-2024 Creatinine [Mass/Vol] 1.01 mg/dL 0.70-1.20 [facility] Serum glucose measurement (m ass/volume)Ordered By: Satya Mendenhall on 10-18-2024 Glucose [Mass/Vol] 412 mg/dL High 70-99 [facility] Serum or plasma calcium cherelle urement (mass/volume)Ordered By: Satya De Los Santos on 10-18-2024 Calcium [Mass/Vol] 8.7 mg/dL 7.6-11.0 [facility] Serum or plasma urea nitroge n measurement (mass/volume)Ordered By: Satya Mendenhall on 10-18-2024 Urea nitrogen [Mass/Vol] 37 mg/dL High 4-19 [facility] Sodium levelOrdered By: Andrew Mendenhall on 10-18-2024 Sodium [Moles/Vol] 135 mmol/L 133-145 [facility] Troponin T.cardiac [Mass/vol ume] in Serum or Plasma by High sensitivity methodOrdered By: Satya Mendenhall on 10-18-2024 Troponin T.cardiac High sensitivity method [Mass/Vol] 34 ng/L High <14 [facility] Troponin T.cardiac High sensitivity method [Mass/Vol] 33 ng/L High <14 [facility] White blood cell (WBC) count Ordered By: Satya Mendenhall on 10-18-2024 WBC (Bld) [#/Vol] 5.7 10*3/uL 4.4-11.0 [facility] CNOVon 07-18-2024 CNOV Office Visit (UCWSTR ) MARIA ISABEL VANN ([id number]) 1970 F Date Time Provider Department 07/18/24 10:00 AM MERRY MEDRANO GABRIELA During your visit today, we recorded the following information about you: Temperature Pulse Respiration Blood pressure 98.3 degrees 118/minute 18/minute 122/78 Weight 82.8 kg Merry Medrano APRN.[facility] 07/18/2024 10:02 AM Signed Each of us [...] as smoke, should be avoided. Merry Medrano APRN.[facility] 07/18/2024 10:05 (more content not included)... Normal [facility] Culture, Blood (WB)on 2023 CUB Blood cultures x2, f rom two different sites No growth in 5 days. Normal [facility] Comment on above: Performed By: #### L 501.6900, L500.2500, L503.6005, L100.0100 #### [facility] [address] [place], [address] Wound Cultureon 01-17-2024 Staphylococcus aureu s Amount Growth 3+ Staphylococcus [...] S Vancomycin Islt YASIR 1 S Normal [facility] Comment on above: Performed By: #### L 501.6900, L500.2500, L503.6005, L100.0100 #### [facility] [address] [place], [address] Bedside Glucoseon 01-16-2024 FINGERSTICK GLU 262 mg/dL High 74-106 [facility] Comment on above: Result Comment: LUCIO THAPA OF PATIENT CARE PER NURSING PROTOCOL Performed By: #### L 501.080 #### [facility] [address] [place], [address] CBC W/Diff, Automatedon 01-04 Absolute Lymph 1.20 X10 3/uL Normal 0.83-4.51 [facility] Comment on above: Performed By: #### L 501.5200, L500.4050, L501.9985, L100.0100 ####[facility] [address] [place], [address] Absolute Neut 2.6 X10 3/uL Normal 2.0-7.7 [facility] Comment on above: Performed By: #### L 501.5200, L500.4050, L501.9985, L100.0100 ####[facility] [address] [place], [address] Basophils/100 WBC (Bld) 0.8 % Normal 0-1 [facility] Comment on above: Performed By: #### L 501.5200, L500.4050, L501.9985, L100.0100 ####[facility] [address] [place], [address] Eosinophils/100 WBC (Bld) 2.3 % Normal 0-5 [facility] Comment on above: Performed By: #### L 501.5200, L500.4050, L501.9985, L100.0100 ####[facility] [address] [place], [address] Erythrocyte distribution width (RBC) [Ratio] 12.5 % Normal 11.6-14.6 [facility] Comment on above: Performed By: #### L 501.5200, L500.4050, L501.9985, L100.0100 ####[facility] [address] [place], [address] Hematocrit (Bld) [Volume fraction] 32.2 % Low 37-47 [facility] Comment on above: Performed By: #### L 501.5200, L500.4050, L501.9985, L100.0100 ####[facility] [address] [place], [address] Hemoglobin (Bld) [Mass/Vol] 10.6 g/dL Low 12.0-15.0 [facility] Comment on above: Performed By: #### L 501.5200, L500.4050, L501.9985, L100.0100 ####[facility] [address] [place], [address] IG% 4.900 High 0.0-0.9 [facility] Comment on above: Result Comment: IG% - Immature Granulocytes (promyelocytes, myelocytes and metamyelocytes) > 1% indicates that a LEFT SHIFT is Present. Performed By: #### L 501.5200, L500.4050, L501.9985, L100.0100 ####[facility] [address] [place], [address] Lymphocytes/100 WBC (Bld) 25.5 % Normal 19-41 [facility] Comment on above: Performed By: #### L 501.5200, L500.4050, L501.9985, L100.0100 ####[facility] [address] [place], [address] MCH (RBC) [Entitic mass] 28.0 pg Normal 27.0-32.0 [facility] Comment on above: Performed By: #### L 501.5200, L500.4050, L501.9985, L100.0100 ####[facility] [address] [place], [address] MCHC (RBC) [Mass/Vol] 32.9 g/dL Normal 32-36 [facility] Comment on above: Performed By: #### L 501.5200, L500.4050, L501.9985, L100.0100 ####[facility] [address] [place], [address] MCV (RBC) [Entitic vol] 85.0 fL Normal 81-99 [facility] Comment on above: Performed By: #### L 501.5200, L500.4050, L501.9985, L100.0100 ####[facility] [address] [place], [address] Monocytes/100 WBC (Bld) 11.0 % High 0-10 [facility] Comment on above: Performed By: #### L 501.5200, L500.4050, L501.9985, L100.0100 ####[facility] [address] [place], [address] Neutrophils/100 WBC (Bld) 55.5 % Normal 47-70 [facility] Comment on above: Performed By: #### L 501.5200, L500.4050, L501.9985, L100.0100 ####[facility] [address] [place], [address] Nucleated RBC (Bld) [#/Vol] 0 10*3/uL Normal 0-5 [facility] Comment on above: Performed By: #### L 501.5200, L500.4050, L501.9985, L100.0100 ####[facility] [address] [place], [address] Platelet mean volume (Bld) [Entitic vol] 9.8 fL Normal 6.2-12.0 [facility] Comment on above: Performed By: #### L 501.5200, L500.4050, L501.9985, L100.0100 ####[facility] [address] [place], [address] Platelets (Bld) [#/Vol] 154 10*3/uL Normal 150-450 [facility] Comment on above: Performed By: #### L 501.5200, L500.4050, L501.9985, L100.0100 ####[facility] [address] [place], [address] RBC (Bld) [#/Vol] 3.79 10*6/uL Low 4.2-5.4 [facility] Comment on above: Performed By: #### L 501.5200, L500.4050, L501.9985, L100.0100 ####[facility] [address] [place], [address] RDW SD 38.5 fl Normal 35.1-43.9 [facility] Comment on above: Performed By: #### L 501.5200, L500.4050, L501.9985, L100.0100 ####[facility] [address] [place], [address] WBC (Bld) [#/Vol] 4.7 10*3/uL Normal 4.4-11.0 [facility] Comment on above: Performed By: #### L 501.5200, L500.4050, L501.9985, L100.0100 ####[facility] [address] [place], [address] Comprehensive Metabolic [facility] ilon 01-16-2024 Albumin [Mass/Vol] 2.3 g/dL Low 3.2-5.0 [facility] Comment on above: Performed By: #### L 501.5200, L500.4050, L501.9985, L100.0100 ####[facility] [address] [place], [address] Albumin/Globulin [Mass ratio] 0.6 {ratio} Low 0.9-2.4 [facility] Comment on above: Performed By: #### L 501.5200, L500.4050, L501.9985, L100.0100 ####[facility] [address] [place], [address] ALK P 86 U/L Normal 45-117 [facility] Comment on above: Performed By: #### L 501.5200, L500.4050, L501.9985, L100.0100 ####[facility] [address] [place], [address] ALT [Catalytic activity/Vol] 21 U/L Normal 13-56 [facility] Comment on above: Performed By: #### L 501.5200, L500.4050, L501.9985, L100.0100 ####[facility] [address] [place], [address] AST [Catalytic activity/Vol] 21 U/L Normal 15-37 [facility] Comment on above: Performed By: #### L 501.5200, L500.4050, L501.9985, L100.0100 ####[facility] [address] [place], [address] Bilirubin [Mass/Vol] 0.20 mg/dL Normal 0.20-1.00 [facility] Comment on above: Result Comment: For patients on eltrombopag therapy, use of Dimension Saffell TBIL is not recommended. Performed By: #### L 501.5200, L500.4050, L501.9985, L100.0100 ####[facility] [address] [place], [address] BUN/CRE 37.3 RATIO High 10-20 [facility] Comment on above: Performed By: #### L 501.5200, L500.4050, L501.9985, L100.0100 ####[facility] [address] [place], [address] CA,Total 8.6 mg/dL Normal 8.5-10.1 [facility] Comment on above: Performed By: #### L 501.5200, L500.4050, L501.9985, L100.0100 ####[facility] [address] [place], [address] Chloride [Moles/Vol] 102 mmol/L Normal 98-107 [facility] Comment on above: Performed By: #### L 501.5200, L500.4050, L501.9985, L100.0100 ####[facility] [address] [place], [address] CO2 [Moles/Vol] 26.0 mmol/L Normal 21.0-32.0 [facility] Comment on above: Performed By: #### L 501.5200, L500.4050, L501.9985, L100.0100 ####[facility] [address] [place], [address] Creatinine [Mass/Vol] 0.80 mg/dL Normal 0.55-1.02 [facility] Comment on above: Result Comment: The validity of the calculated GFR GFRAA in patients over 70 years has not been determined. Clinical correlation is essential. Performed By: #### L 501.5200, L500.4050, L501.9985, L100.0100 ####[facility] [address] [place], [address] ECRCL 86.82 ml/min Normal [facility] Comment on above: Performed By: #### L 501.5200, L500.4050, L501.9985, L100.0100 ####[facility] [address] [place], [address] EST GFR - AA 96 mL/min Normal >60 [facility] Comment on above: Result Comment: Afri can Cambodian GFR Calc Performed By: #### L 501.5200, L500.4050, L501.9985, L100.0100 ####[facility] [address] [place], [address] GAP 6 Normal 5-15 [facility] Comment on above: Performed By: #### L 501.5200, L500.4050, L501.9985, L100.0100 ####[facility] [address] [place], [address] GFR/1.73 sq M.predicted among non-blacks MDRD (S/P/Bld) [Vol rate/Area] 79 mL/min/{1.73_m2} Normal >60 [facility] Comment on above: Result Comment: Non- GFR Calc Performed By: #### L 501.5200, L500.4050, L501.9985, L100.0100 ####[facility] [address] [place], [address] Globulin (S) [Mass/Vol] 3.9 g/dL Normal 2.2-4.2 [facility] Comment on above: Performed By: #### L 501.5200, L500.4050, L501.9985, L100.0100 ####[facility] [address] [place], [address] Glucose [Mass/Vol] 298 mg/dL High 74-106 [facility] Comment on above: Result Comment: Gluc ose result greater than or equal to 200 mg/dL suggests DIABETES MELLITUS per A.D.A. criteria. Performed By: #### L 501.5200, L500.4050, L501.9985, L100.0100 ####[facility] [address] [place], [address] Potassium [Moles/Vol] 3.7 mmol/L Normal 3.5-5.1 [facility] Comment on above: Performed By: #### L 501.5200, L500.4050, L501.9985, L100.0100 ####[facility] [address] [place], [address] Sodium [Moles/Vol] 135 mmol/L Low 136-145 [facility] Comment on above: Performed By: #### L 501.5200, L500.4050, L501.9985, L100.0100 ####[facility] [address] [place], [address] T PROT 6.2 g/dL Low 6.4-8.2 [facility] Comment on above: Performed By: #### L 501.5200, L500.4050, L501.9985, L100.0100 ####[facility] [address] [place], [address] Urea nitrogen [Mass/Vol] 30 mg/dL High 7-18 [facility] Comment on above: Performed By: #### L 501.5200, L500.4050, L501.9985, L100.0100 ####[facility] [address] [place], [address] Discharge Instructionon 01-04 Discharge Instruction [facility] Medical Records Department [address] [place] [address] Instructions for Home/Discharge Instructions 01/16/24 0948 MR#: [id number] Acct: [id number] Name: MARIA ISABEL VANN Rep #: [id number] : 1970 53 From: J Luis Diaz [...] can be placed): Home, Self Care 01/16/24 7583 J Luis Diaz MD CC: Dr. Sapna Ray DO; Dr. Cari Reeves MD Signed Normal [facility] Gram Stainon 01-16-2024 GS Gram Stain 1+ Red Blood Cells 2+ White Blood Cells 3+ Gram positive cocci in clusters Normal [facility] Comment on above: Performed By: #### L 501.6900, L500.2500, L503.6005, L100.0100 #### [facility] [address] [place], [address] Hemoglobin A1con 01-16-2024 HbA1c (Bld) [Mass fraction] % High 3.8-5.6 [facility] Comment on above: Result Comment: Norm al < 5.7 % Prediabetic 5.7 - 6.4 % Diabetic >or= 6.5 % Please note range changes. Performed By: #### L 501.5200, L500.4050, L501.9985, L100.0100 ####[facility] [address] [place], [address] Magnesiumon 01-16-2024 Magnesium [Mass/Vol] 2.1 mg/dL Normal 1.6-2.6 [facility] Comment on above: Performed By: #### L 501.5200, L500.4050, L501.9985, L100.0100 ####[facility] [address] [place], [address] Acetone Serumon 01-15-2024 ACETONE SERUM Negative Normal NEG [facility] Comment on above: Performed By: #### L 501.6900, L500.2500, L503.6005, L100.0100 #### [facility] [address] [place], [address] Basic Metabolic Profile (BMP )on 01-15-2024 BUN/CRE 25.4 RATIO High 10-20 [facility] Comment on above: Performed By: #### L 501.6900, L500.2500, L503.6005, L100.0100 #### [facility] [address] [place], [address] CA,Total 9.5 mg/dL Normal 8.5-10.1 [facility] Comment on above: Performed By: #### L 501.6900, L500.2500, L503.6005, L100.0100 #### [facility] [address] [place], [address] Chloride [Moles/Vol] 93 mmol/L Low 98-107 [facility] Comment on above: Performed By: #### L 501.6900, L500.2500, L503.6005, L100.0100 #### [facility] [address] [place], [address] CO2 [Moles/Vol] 23.0 mmol/L Normal 21.0-32.0 [facility] Comment on above: Performed By: #### L 501.6900, L500.2500, L503.6005, L100.0100 #### [facility] [address] [place], [address] Creatinine [Mass/Vol] 1.34 mg/dL High 0.55-1.02 [facility] Comment on above: Result Comment: The validity of the calculated GFR GFRAA in patients over 70 years has not been determined. Clinical correlation is essential. Performed By: #### L 501.6900, L500.2500, L503.6005, L100.0100 #### [facility] [address] [place], [address] EST GFR - AA 53 mL/min Low >60 [facility] Comment on above: Result Comment: Afri can Cambodian GFR Calc Performed By: #### L 501.6900, L500.2500, L503.6005, L100.0100 #### [facility] [address] [place], [address] GAP 13 Normal 5-15 [facility] Comment on above: Performed By: #### L 501.6900, L500.2500, L503.6005, L100.0100 #### [facility] [address] [place], [address] GFR/1.73 sq M.predicted among non-blacks MDRD (S/P/Bld) [Vol rate/Area] 44 mL/min/{1.73_m2} Low >60 [facility] Comment on above: Result Comment: Non- GFR Calc Performed By: #### L 501.6900, L500.2500, L503.6005, L100.0100 #### [facility] [address] [place], [address] Glucose [Mass/Vol] 482 mg/dL Invalid Interpretation Code 74-106 [facility] Comment on above: Result Comment: Crit ical Result(s) Called at: 13:58:53 01/15/2024 by: Eulalio López to Marialuisa Lobo. Results read back by same. Glucose result greater than or equal to 200 mg/dL suggests DIABETES MELLITUS per A.D.A. criteria. Performed By: #### L 501.6900, L500.2500, L503.6005, L100.0100 #### [facility] [address] [place], [address] Potassium [Moles/Vol] 3.6 mmol/L Normal 3.5-5.1 [facility] Comment on above: Performed By: #### L 501.6900, L500.2500, L503.6005, L100.0100 #### [facility] [address] [place], [address] Sodium [Moles/Vol] 128 mmol/L Low 136-145 [facility] Comment on above: Performed By: #### L 501.6900, L500.2500, L503.6005, L100.0100 #### [facility] [address] [place], [address] Urea nitrogen [Mass/Vol] 34 mg/dL High 7-18 [facility] Comment on above: Performed By: #### L 501.6900, L500.2500, L503.6005, L100.0100 #### [facility] [address] [place], [address] Bedside Glucoseon 01-15-2024 FINGERSTICK GLU 420 mg/dL High 74-106 [facility] Comment on above: Result Comment: LUCIO GEMENT OF PATIENT CARE PER NURSING PROTOCOL Performed By: #### L 499.0042 #### [facility] [address] [place], [address] FINGERSTICK GLU 357 mg/dL High [address] [place] [address] Comment on above: Result Comment: LUCIO GEMENT OF PATIENT CARE PER NURSING PROTOCOL Performed By: #### L 501.6900, L500.2500, L503.6005, L100.0100 #### [facility] [address] [place], [address] FINGERSTICK GLU 425 mg/dL High [address] [place] [address] Comment on above: Result Comment: LUCIO GEMENT OF PATIENT CARE PER NURSING PROTOCOL Performed By: #### L 501.6900, L500.2500, L503.6005, L100.0100 #### [facility] [address] [place], [address] FINGERSTICK GLU > 500 Invalid Interpretation Code [address] [place] [address] Comment on above: Result Comment: Dr Flo rendon Followed MANAGEMENT OF PATIENT CARE PER NURSING PROTOCOL Performed By: #### L 501.080 ####[facility] [address] [place], [address] CBC W/Diff, Automatedon 10-1 Absolute Lymph 1.53 X10 3/uL Normal 0.83-4.51 [facility] Comment on above: Performed By: #### L 501.6900, L500.2500, L503.6005, L100.0100 #### [facility] [address] [place], [address] Absolute Neut 4.9 X10 3/uL Normal 2.0-7.7 [facility] Comment on above: Performed By: #### L 501.6900, L500.2500, L503.6005, L100.0100 #### [facility] [address] [place], [address] Basophils/100 WBC (Bld) 1.2 % High 0-1 [facility] Comment on above: Performed By: #### L 501.6900, L500.2500, L503.6005, L100.0100 #### [facility] [address] [place], [address] Eosinophils/100 WBC (Bld) 1.7 % Normal 0-5 [facility] Comment on above: Performed By: #### L 501.6900, L500.2500, L503.6005, L100.0100 #### [facility] [address] [place], [address] Erythrocyte distribution width (RBC) [Ratio] 12.4 % Normal 11.6-14.6 [facility] Comment on above: Performed By: #### L 501.6900, L500.2500, L503.6005, L100.0100 #### [facility] [address] [place], [address] Hematocrit (Bld) [Volume fraction] 34.8 % Low 37-47 [facility] Comment on above: Performed By: #### L 501.6900, L500.2500, L503.6005, L100.0100 #### [facility] [address] [place], [address] Hemoglobin (Bld) [Mass/Vol] 11.7 g/dL Low 12.0-15.0 [facility] Comment on above: Performed By: #### L 501.6900, L500.2500, L503.6005, L100.0100 #### [facility] [address] [place], [address] IG% 4.300 High 0.0-0.9 [facility] Comment on above: Result Comment: IG% - Immature Granulocytes (promyelocytes, myelocytes and metamyelocytes) > 1% indicates that a LEFT SHIFT is Present. Performed By: #### L 501.6900, L500.2500, L503.6005, L100.0100 #### [facility] [address] [place], [address] Lymphocytes/100 WBC (Bld) 18.8 % Low 19-41 [facility] Comment on above: Performed By: #### L 501.6900, L500.2500, L503.6005, L100.0100 #### [facility] [address] [place], [address] MCH (RBC) [Entitic mass] 28.0 pg Normal 27.0-32.0 [facility] Comment on above: Performed By: #### L 501.6900, L500.2500, L503.6005, L100.0100 #### [facility] [address] [place], [address] MCHC (RBC) [Mass/Vol] 33.6 g/dL Normal 32-36 [facility] Comment on above: Performed By: #### L 501.6900, L500.2500, L503.6005, L100.0100 #### [facility] [address] [place], [address] MCV (RBC) [Entitic vol] 83.3 fL Normal 81-99 [facility] Comment on above: Performed By: #### L 501.6900, L500.2500, L503.6005, L100.0100 #### [facility] [address] [place], [address] Monocytes/100 WBC (Bld) 13.3 % High 0-10 [facility] Comment on above: Performed By: #### L 501.6900, L500.2500, L503.6005, L100.0100 #### [facility] [address] [place], [address] Neutrophils/100 WBC (Bld) 60.7 % Normal 47-70 [facility] Comment on above: Performed By: #### L 501.6900, L500.2500, L503.6005, L100.0100 #### [facility] [address] [place], [address] Nucleated RBC (Bld) [#/Vol] 0 10*3/uL Normal 0-5 [facility] Comment on above: Performed By: #### L 501.6900, L500.2500, L503.6005, L100.0100 #### [facility] [address] [place], [address] Platelet mean volume (Bld) [Entitic vol] 10.3 fL Normal 6.2-12.0 [facility] Comment on above: Performed By: #### L 501.6900, L500.2500, L503.6005, L100.0100 #### [facility] [address] [place], [address] Platelets (Bld) [#/Vol] 190 10*3/uL Normal 150-450 [facility] Comment on above: Performed By: #### L 501.6900, L500.2500, L503.6005, L100.0100 #### [facility] [address] [place], [address] RBC (Bld) [#/Vol] 4.18 10*6/uL Low 4.2-5.4 [facility] Comment on above: Performed By: #### L 501.6900, L500.2500, L503.6005, L100.0100 #### [facility] [address] [place], [address] RDW SD 38.1 fl Normal 35.1-43.9 [facility] Comment on above: Performed By: #### L 501.6900, L500.2500, L503.6005, L100.0100 #### [facility] [address] [place], [address] WBC (Bld) [#/Vol] 8.1 10*3/uL Normal 4.4-11.0 [facility] Comment on above: Performed By: #### L 501.6900, L500.2500, L503.6005, L100.0100 #### [facility] [address] [place], [address] Chest 1 View (Portable)on Chest 1 View (Portable) [facility] Imaging Services [address] [place], [place] [address] Chest 1 View (Portable) MR#: [id number] Acct: [id number] Name: MARIA ISABEL VANN Rep #: [id number] : 1970 F 53 From: Carlos trinh MD PCP: Dr. Sapna Ray, Status: REG ER Study: Chest 1 View (Portable) Date of Exam: 01/15/24 Exam# [id number] Ordering Dr: Osiel Melvin DO [id number] STUDY: X-RAY CHEST REASON FOR EXAM: Female, [...] Sapna Ray DO; Dr. Osiel Melvin DO Residential Manager: Signed Normal [facility] Emergency Department Summary on 01-15-2024 Emergency Department Summary [facility] Medical Records Department [address] [place] [address] Emergency Department Summary 01/15/24 MR#: [id number] Acct: [id number] Name: MARIA ISABEL VANN Rep #: [id number] : 1970 53 From: Osiel Melvin DO PCP: Dr. Sapna Ray DO Status:ADM IN Location: [place] [address] HPI History of Present Illness Chief Complaint: [...] She denies abdominal pain or urinary symptoms. [facility] Medical History Abdominal panniculus, symptomatic [place] (acute [...] 30 04/23/21 Unknown Rx subcutaneous pen (Humalog Kw days #18 mL (U-100) Insulin) cholecalciferol (vitamin [...] 500 mg tablet,extended 1,000 mg PO BID 09/02/24 Unknown History release 24 hr Allergy/AdvReac Type Severity Reaction Status Date / Time etodolac (From [facility]) Allergy Rash Verified 01/15/24 12:24 Family History [...] Eyes Eyes (more content not included)... Normal [facility] H AND P Exam - Hospitaliston 01-15-2024 H&P Exam - Hospitalist [facility] Medical Records Department [address] [place] [address] H P Exam - Hospitalist 01/15/24 1626 MR#: [id number] Acct: [id number] Name: MARIA ISABEL VANN Rep #: [id number] : 1970 53 From: Cari Reeves MD PCP: Dr. Sapna Ray, DO Status:ADM IN Location: [place] [id number] HPI - General General Date of Admission: 01/15/24 Date of Service: 01/15/24 Chief Complaint: Fells unwell, left sided groin abscess HPI Narrative MARIA ISABEL VANN, is a 53 F with history of diabetes, GERD, fibromyalgia who presented to [facility] ED 01/15/2024 feeling unwell since this morning. [...] morning because of how she was feeling. [facility] Medical History Abdominal panniculus, symptomatic [place] [...] Reaction Status Date / Time etodolac (From [facility]) Allergy Rash Verified 01/15/24 12:24 Family History [...] throat i (more content not included)... Normal [facility] Lactic Acidon 01-15-2024 Lactate [Moles/Vol] 1.3 mmol/L Normal 0.4-1.9 [facility] Comment on above: Order Comment: Y Performed By: #### L 501.9473, L500.2500, L503.6005, L100.0100 #### [facility] [address] [place], [address] Urinalysis, Completeon 01-14 EPI,SQUAMOUS 0-5 SEEN Normal 5-10 [facility] Comment on above: Order Comment: CLEAN CATCH Performed By: #### L 400.0001 ####[facility] [address] [place], [address] RBC 0-5 SEEN Normal 0-5 [facility] Comment on above: Order Comment: CLEAN CATCH Performed By: #### L 400.0001 ####[facility] [address] [place], [address] WBC 5-10 SEEN Normal 0-5 [facility] Comment on above: Order Comment: CLEAN CATCH Performed By: #### L 400.0001 ####[facility] [address] [place], [address] BACTERIA 0 SEEN Normal None Seen [facility] Comment on above: Order Comment: CLEAN CATCH Performed By: #### L 400.0001 ####[facility] [address] [place], [address] Mucus Ql (Urine sed) 0 SEEN Normal [facility] Comment on above: Order Comment: CLEAN CATCH Performed By: #### L 400.0001 ####[facility] [address] [place], [address] Emergency Department Summary on 12-07-2023 Emergency Department Summary [facility] Medical Records Department [address] [place] [address] Emergency Department Summary 12/07/23 MR#: [id number] Acct: [id number] Name: MARIA ISABEL VANN Rep #: [id number] : 1970 53 From: Sav [place]yon DO PCP: Dr. Sapna Ray, DO Status:DEP ER Location: ED HPI History of Present Illness Chief Complaint: [facility] History Abdominal panniculus, symptomatic BERKLEY [...] Reaction Status Date / Time etodolac (From [facility]) Allergy Rash Verified 12/07/23 19:02 Family History [...] 97 99 Oxygen Delivery Method Room Air [facility] MDM Narrative Medical decision making narrative: HISTORY [...] affecting care: Type 2 diabetes, fibromyalgia, hyperlipidemia [place] Narrative: 53-year-old female presents with concern for foreign body in right ear. Exam without foreign body. Right ear was irrigated w (more content not included)... Normal [facility] Absolute lymphocyte counton 03-30-2022 Lymphocytes Auto (Unsp spec) [#/Vol] 2.23 10*3/uL 0.83-4.51 [facility] Work Phone: Basophil percentageon 2021 Basophil percentage 0-5 SEEN /hpf 0-5 [facility] Work Phone: Basophils/100 WBC (Bld) 0.8 % 0-1 [facility] Work Phone: Bilirubin [Mass/Vol] 0.40 mg/dL 0.20-1.00 [facility] Work Phone: Comment on above: For patients on eltr ombopag therapy, use of Dimension Saffell TBIL is not recommended. Chloride [Moles/Vol] 101 mmol/L 98-107 [facility] Work Phone: Eosinophils/100 WBC (Bld) 2.5 % 0-5 [facility] Work Phone: Glucose [Mass/Vol] 280 mg/dL 74-106 [facility] Work Phone: Comment on above: Glucose result great er than or equal to 200 mg/dLsuggests DIABETES MELLITUS per A.D.A. criteria. Neutrophils (Bld) [#/Vol] 4.9 10*3/uL 2.0-7.7 [facility] Work Phone: Neutrophils/100 WBC (Bld) 58.2 % 47-70 [facility] Work Phone: Potassium [Moles/Vol] 4.7 mmol/L 3.5-5.1 [facility] Work Phone: Protein [Mass/Vol] 6.5 g/dL 6.4-8.2 [facility] Work Phone: Sodium [Moles/Vol] 132 mmol/L 136-145 [facility] Work Phone: WBC (Bld) [#/Vol] 8.4 10*3/uL 4.4-11.0 [facility] Work Phone: Bilirubin Test strip Ql (U)o n 03-30-2022 Bilirubin Ql (U) 3 mg/dL Negative [facility] Work Phone: Comment on above: COLOR OF URINE MAY A FFECT DIPSTICK RESULTS. Blood erythrocytes count (nu mber/volume)on 03-30-2022 RBC (Bld) [#/Vol] 3.94 10*6/uL 4.2-5.4 [facility] Work Phone: [phone] Blood hemoglobin measurement (mass/volume)on 03-30-2022 Hemoglobin (Bld) [Mass/Vol] 11.3 g/dL 12.0-15.0 [facility] Work Phone: [phone] Blood lymphocytes/100 leukoc yteson 03-30-2022 Lymphocytes/100 WBC (Bld) 26.6 % 19-41 [facility] Work Phone: Blood monocytes/100 leukocyt eson 03-30-2022 Monocytes/100 WBC (Bld) 10.4 % 0-10 [facility] Work Phone: [phone] Blood platelet mean volumeon 03-30-2022 Platelet mean volume (Bld) [Entitic vol] 10.4 fL 6.2-12.0 [facility] Work Phone: [phone] Determination of erythrocyte mean corpuscular volume (MCV)on 03-30-2022 MCV (RBC) [Entitic vol] 89.3 fL 81-99 [facility] Work Phone: [phone] Hematocrit Auto (Bld) [Volum e fraction]on 03-30-2022 Hematocrit (Bld) [Volume fraction] 35.2 % 37-47 [facility] Work Phone: [phone] Hyaline casts LM.LPF (Urine sed) [#/Area]on 03-30-2022 Hyaline casts (Urine sed) [#/Area] 0 /[LPF] 0-5 [facility] Work Phone: Ketones Test strip Ql (U)on 03-30-2022 Ketones Ql (U) 5 mg/dl Negative [facility] Work Phone: Laboratory - Chemistry and C hemistry - challengeon 03-30-2022 ALP [Catalytic activity/Vol] 70 U/L 45-117 [facility] Work Phone: ALT [Catalytic activity/Vol] 32 U/L 13-56 [facility] Work Phone: CO2 [Moles/Vol] 22.0 mmol/L 21.0-32.0 [facility] Work Phone: [phone] Globulin (S) [Mass/Vol] 3.5 g/dL 2.2-4.2 [facility] Work Phone: [phone] Urea nitrogen/Creatinine [Mass ratio] 30.4 mg/mg 10-20 [facility] Work Phone: Laboratory - Hematology and Cell countson 03-30-2022 Erythrocyte distribution width (RBC) [Entitic vol] 43.4 fL 35.1-43.9 [facility] Work Phone: [phone] Erythrocyte distribution width (RBC) [Ratio] 13.3 % 11.6-14.6 [facility] Work Phone: [phone] Immature granulocytes/100 WBC (Bld) 1.500 % 0.0-0.9 [facility] Work Phone: [phone] Comment on above: IG% - Immature Granu locytes (promyelocytes, myelocytes and metamyelocytes) > 1% indicates that a LEFT SHIFT is Present. MCH (RBC) [Entitic mass] 28.7 pg 27.0-32.0 [facility] Work Phone: [phone] Nucleated RBC/100 WBC (Bld) [Ratio] 0 % 0-5 [facility] Work Phone: [phone] MCHC Auto (RBC) [Mass/Vol]on 03-30-2022 MCHC (RBC) [Mass/Vol] 32.1 g/dL 32-36 [facility] Work Phone: [phone] Mucus LM Ql (Urine sed)on Mucus Ql (Urine sed) 1+ /hpf [facility] Work Phone: [phone] Nitrite Test strip Ql (U)on 03-30-2022 Nitrite Ql (U) Negative Negative [facility] Work Phone: No Panel Informationon 03-30 Estimated Creatinine Clearance Calc 36.05 ml/min [facility] Work Phone: Estimated GFR (MDRD) Amer 41 mL/min >60 [facility] Work Phone: Comment on above: GFR Calc Estimated GFR (MDRD) Non-Af Amer 34 mL/min >60 [facility] Work Phone: Comment on above: Non- GFR Calc Platelets bldon 03-30-2022 Platelets (Bld) [#/Vol] 253 10*3/uL 150-450 [facility] Work Phone: Protein Test strip Ql (U)on 03-30-2022 Protein Ql (U) 30 mg/dl Negative [facility] Work Phone: Serum or plasma albumin cherelle urement (mass/volume)on 03-30-2022 Albumin [Mass/Vol] 3.0 g/dL 3.2-5.0 [facility] Work Phone: Serum or plasma albumin/glob ulin mass ratioon 03-30-2022 Albumin/Globulin [Mass ratio] 0.9 {ratio} 0.9-2.4 [facility] Work Phone: Serum or plasma calcium cherelle urement (mass/volume)on 03-30-2022 Calcium [Mass/Vol] 9.3 mg/dL 8.5-10.1 [facility] Work Phone: Serum or plasma creatinine m easurement (mass/volume)on 03-30-2022 Creatinine [Mass/Vol] 1.68 mg/dL 0.55-1.02 [facility] Work Phone: Comment on above: The validity of the calculated GFR & GFRAA in patients over 70 years has not been determined. Clinical correlation is essential. Serum or plasma urea nitroge n measurement (mass/volume)on 03-30-2022 Urea nitrogen [Mass/Vol] 51 mg/dL 7-18 [facility] Work Phone: Squamous epithelial cells de tection in urine sediment by light microscopyon 03-30-2022 Epithelial cells.squamous LM Ql (Urine sed) 0-5 SEEN /hpf 5-10 [facility] Work Phone: Thin prep Papanicolaou smear with manual screeningon 03-30-2022 Thin prep Papanicolaou smear with manual screening 22 U/L 15-37 [facility] Work Phone: [phone] Thin prep Papanicolaou smear with manual screening 9 5-15 [facility] Work Phone: [phone] Urine blood detectionon 03-07 RBC Ql (U) Negative Negative [facility] Work Phone: [phone] RBC Ql (U) 0 SEEN /hpf 0-5 [facility] Work Phone: Urine clarityon 03-30-2022 Clarity (U) Clear Clear [facility] Work Phone: Urine color determinationon 03-30-2022 Color (U) Yellow Yellow [facility] Work Phone: [phone] Urine glucose detectionon Glucose Ql (U) 100 mg/dl Normal [facility] Work Phone: [phone] Urine leukocyte esterase det ection by dipstickon 03-30-2022 Leukocyte esterase Test strip Ql (U) 25 /ul Negative [facility] Work Phone: [phone] Urine pHon 03-30-2022 pH (U) 5.0 [pH] 5.0 - 8.0 [facility] Work Phone: Urine sediment bacteria coun t by microscopy (number/high power field)on 03-30-2022 Bacteria LM.HPF (Urine sed) [#/Area] 1 /[HPF] None Seen [facility] Work Phone: Urine specific gravity measu rementon 03-30-2022 Specific gravity (U) [Rel density] 1.020 1.002-1.03 0 [facility] Work Phone: [phone] Urobilinogen Auto test strip Ql (U)on 03-30-2022 Urobilinogen Ql (U) 4 mg/[facility]: Absolute lymphocyte counton 10-30-2021 Lymphocytes Auto (Unsp spec) [#/Vol] 2.85 10*3/uL 0.83-4.51 [facility] Work Phone: Basophil percentageon 2021 Basophil percentage 0-5 SEEN /hpf 0-5 [facility] Work Phone: Basophils/100 WBC (Bld) 0.3 % 0-1 [facility] Work Phone: Bilirubin [Mass/Vol] 0.50 mg/dL 0.20-1.00 [facility] Work Phone: Comment on above: For patients on eltr ombopag therapy, use of Dimension Saffell TBIL is not recommended. Chloride [Moles/Vol] 105 mmol/L 98-107 [facility] Work Phone: Eosinophils/100 WBC (Bld) 1.9 % 0-5 [facility] Work Phone: Glucose [Mass/Vol] 199 mg/dL 74-106 [facility] Work Phone: Comment on above: Fasting Glucose resu lt greater than or equal to 126 mg/dL suggests DIABETES MELLITUS per A.D.A. criteria. Neutrophils (Bld) [#/Vol] 3.9 10*3/uL 2.0-7.7 [facility] Work Phone: Neutrophils/100 WBC (Bld) 51.0 % 47-70 [facility] Work Phone: Potassium [Moles/Vol] 4.1 mmol/L 3.5-5.1 [facility] Work Phone: Protein [Mass/Vol] 6.8 g/dL 6.4-8.2 [facility] Work Phone: Sodium [Moles/Vol] 138 mmol/L 136-145 [facility] Work Phone: WBC (Bld) [#/Vol] 7.7 10*3/uL 4.4-11.0 [facility] Work Phone: Bilirubin Test strip Ql (U)o n 10-30-2021 Bilirubin Ql (U) Negative Negative [facility] Work Phone: Blood erythrocytes count (nu mber/volume)on 10-30-2021 RBC (Bld) [#/Vol] 3.94 10*6/uL 4.2-5.4 [facility] Work Phone: Blood hemoglobin measurement (mass/volume)on 10-30-2021 Hemoglobin (Bld) [Mass/Vol] 11.6 g/dL 12.0-15.0 [facility] Work Phone: [phone] Blood lymphocytes/100 leukoc yteson 10-30-2021 Lymphocytes/100 WBC (Bld) 36.9 % 19-41 [facility] Work Phone: [phone] Blood monocytes/100 leukocyt eson 10-30-2021 Monocytes/100 WBC (Bld) 9.1 % 0-10 [facility] Work Phone: Blood platelet mean volumeon 10-30-2021 Platelet mean volume (Bld) [Entitic vol] 9.5 fL 6.2-12.0 [facility] Work Phone: Determination of erythrocyte mean corpuscular volume (MCV)on 10-30-2021 MCV (RBC) [Entitic vol] 88.3 fL 81-99 [facility] Work Phone: Glucose Glucometer (BldC) [M ass/Vol]on 10-30-2021 Glucose [Mass/Vol] 203 mg/dL 74-106 [facility] Work Phone: Comment on above: MANAGEMENT OF PATIEN T CARE PER NURSING PROTOCOL Hematocrit Auto (Bld) [Volum e fraction]on 10-30-2021 Hematocrit (Bld) [Volume fraction] 34.8 % 37-47 [facility] Work Phone: Ketones Test strip Ql (U)on 10-30-2021 Ketones Ql (U) 5 mg/dl Negative [facility] Work Phone: [phone] Laboratory - Chemistry and C hemistry - challengeon 10-30-2021 ALP [Catalytic activity/Vol] 44 U/L 45-117 [facility] Work Phone: ALT [Catalytic activity/Vol] 25 U/L 13-56 [facility] Work Phone: CO2 [Moles/Vol] 26.0 mmol/L 21.0-32.0 [facility] Work Phone: Globulin (S) [Mass/Vol] 3.3 g/dL 2.2-4.2 [facility] Work Phone: [phone] Urea nitrogen/Creatinine [Mass ratio] 24.1 mg/mg 10-20 [facility] Work Phone: Laboratory - Hematology and Cell countson 10-30-2021 Erythrocyte distribution width (RBC) [Entitic vol] 43.0 fL 35.1-43.9 [facility] Work Phone: [phone] Erythrocyte distribution width (RBC) [Ratio] 13.4 % 11.6-14.6 [facility] Work Phone: [phone] Immature granulocytes/100 WBC (Bld) 0.800 % 0.0-0.9 [facility] Work Phone: [phone] Comment on above: IG% - Immature Granu locytes (promyelocytes, myelocytes and metamyelocytes) > 1% indicates that a LEFT SHIFT is Present. MCH (RBC) [Entitic mass] 29.4 pg 27.0-32.0 [facility] Work Phone: [phone] Nucleated RBC/100 WBC (Bld) [Ratio] 0 % 0-5 [facility] Work Phone: [phone] MCHC Auto (RBC) [Mass/Vol]on 10-30-2021 MCHC (RBC) [Mass/Vol] 33.3 g/dL 32-36 [facility] Work Phone: [phone] Mucus LM Ql (Urine sed)on Mucus Ql (Urine sed) 0 SEEN /hpf [facility] Work Phone: Nitrite Test strip Ql (U)on 10-30-2021 Nitrite Ql (U) Negative Negative [facility] Work Phone: No Panel Informationon 10-30 Estimated Creatinine Clearance Calc 44.21 ml/min [facility] Work Phone: Estimated GFR (MDRD) Amer 52 mL/min >60 [facility] Work Phone: Comment on above: GFR Calc Estimated GFR (MDRD) Non-Af Amer 43 mL/min >60 [facility] Work Phone: Comment on above: Non- GFR Calc Platelets bldon 10-30-2021 Platelets (Bld) [#/Vol] 244 10*3/uL 150-450 [facility] Work Phone: Protein Test strip Ql (U)on 10-30-2021 Protein Ql (U) 30 mg/dl Negative [facility] Work Phone: Serum or plasma albumin cherelle urement (mass/volume)on 10-30-2021 Albumin [Mass/Vol] 3.5 g/dL 3.2-5.0 [facility] Work Phone: Serum or plasma albumin/glob ulin mass ratioon 10-30-2021 Albumin/Globulin [Mass ratio] 1.1 {ratio} 0.9-2.4 [facility] Work Phone: Serum or plasma calcium cherelle urement (mass/volume)on 10-30-2021 Calcium [Mass/Vol] 9.3 mg/dL 8.5-10.1 [facility] Work Phone: Serum or plasma creatinine m easurement (mass/volume)on 10-30-2021 Creatinine [Mass/Vol] 1.37 mg/dL 0.55-1.02 [facility] Work Phone: Comment on above: The validity of the calculated GFR & GFRAA in patients over 70 years has not been determined. Clinical correlation is essential. Serum or plasma urea nitroge n measurement (mass/volume)on 10-30-2021 Urea nitrogen [Mass/Vol] 33 mg/dL 7-18 [facility] Work Phone: [phone] Squamous epithelial cells de tection in urine sediment by light microscopyon 10-30-2021 Epithelial cells.squamous LM Ql (Urine sed) 0-5 SEEN /hpf 5-10 [facility] Work Phone: [phone] Thin prep Papanicolaou smear with manual screeningon 10-30-2021 Thin prep Papanicolaou smear with manual screening 15 U/L 15-37 [facility] Work Phone: Thin prep Papanicolaou smear with manual screening 7 5-15 [facility] Work Phone: [phone] Urine blood detectionon - RBC Ql (U) Negative Negative [facility] Work Phone: [phone] RBC Ql (U) 0 SEEN /hpf 0-5 [facility] Work Phone: Urine clarityon 10-30-2021 Clarity (U) Sl. Cloudy Clear [facility] Work Phone: [phone] Urine color determinationon 10-30-2021 Color (U) Yellow Yellow [facility] Work Phone: [phone] Urine glucose detectionon Glucose Ql (U) 50 mg/dl Normal [facility] Work Phone: [phone] Urine leukocyte esterase det ection by dipstickon 10-30-2021 Leukocyte esterase Test strip Ql (U) 25 /ul Negative [facility] Work Phone: [phone] Urine pHon 10-30-2021 pH (U) 6.0 [pH] 5.0 - 8.0 [facility] Work Phone: [phone] Urine sediment bacteria coun t by microscopy (number/high power field)on 10-30-2021 Bacteria LM.HPF (Urine sed) [#/Area] 1 /[HPF] None Seen [facility] Work Phone: [phone] Urine specific gravity measu rementon 10-30-2021 Specific gravity (U) [Rel density] 1.020 1.002-1.03 0 [facility] Work Phone: Urobilinogen Auto test strip Ql (U)on 10-30-2021 Urobilinogen Ql (U) Normal mg/dl Normal [facility] Work Phone: Absolute lymphocyte counton 09-18-2021 Lymphocytes Auto (Unsp spec) [#/Vol] 2.61 10*3/uL 0.83-4.51 [facility] Work Phone: Basophil percentageon 2021 Basophils/100 WBC (Bld) 0.5 % 0-1 [facility] Work Phone: Bilirubin [Mass/Vol] 0.30 mg/dL 0.20-1.00 [facility] Work Phone: Comment on above: For patients on eltr ombopag therapy, use of Dimension Saffell TBIL is not recommended. Chloride [Moles/Vol] 107 mmol/L 98-107 [facility] Work Phone: Eosinophils/100 WBC (Bld) 2.0 % 0-5 [facility] Work Phone: Glucose [Mass/Vol] 86 mg/dL 74-106 [facility] Work Phone: Neutrophils (Bld) [#/Vol] 5.1 10*3/uL 2.0-7.7 [facility] Work Phone: Neutrophils/100 WBC (Bld) 57.4 % 47-70 [facility] Work Phone: Potassium [Moles/Vol] 4.6 mmol/L 3.5-5.1 [facility] Work Phone: Protein [Mass/Vol] 7.3 g/dL 6.4-8.2 [facility] Work Phone: Sodium [Moles/Vol] 140 mmol/L 136-145 [facility] Work Phone: WBC (Bld) [#/Vol] 8.8 10*3/uL 4.4-11.0 [facility] Work Phone: [phone] Blood erythrocytes count (nu mber/volume)on 09-18-2021 RBC (Bld) [#/Vol] 4.36 10*6/uL 4.2-5.4 [facility] Work Phone: [phone] Blood hemoglobin measurement (mass/volume)on 09-18-2021 Hemoglobin (Bld) [Mass/Vol] 12.9 g/dL 12.0-15.0 [facility] Work Phone: Blood lymphocytes/100 leukoc yteson 09-18-2021 Lymphocytes/100 WBC (Bld) 29.6 % 19-41 [facility] Work Phone: Blood monocytes/100 leukocyt eson 09-18-2021 Monocytes/100 WBC (Bld) 10.0 % 0-10 [facility] Work Phone: Blood platelet mean volumeon 09-18-2021 Platelet mean volume (Bld) [Entitic vol] 9.6 fL 6.2-12.0 [facility] Work Phone: [phone] Determination of erythrocyte mean corpuscular volume (MCV)on 09-18-2021 MCV (RBC) [Entitic vol] 87.8 fL 81-99 [facility] Work Phone: [phone] Erythrocyte sedimentation ra conrado 09-18-2021 ESR (Bld) [Velocity] 28 mm/h 0-30 [facility] Work Phone: [phone] Hematocrit Auto (Bld) [Volum e fraction]on 09-18-2021 Hematocrit (Bld) [Volume fraction] 38.3 % 37-47 [facility] Work Phone: [phone] Laboratory - Chemistry and C hemistry - challengeon 09-18-2021 ALP [Catalytic activity/Vol] 45 U/L 45-117 [facility] Work Phone: ALT [Catalytic activity/Vol] 29 U/L 13-56 [facility] Work Phone: [phone] CO2 [Moles/Vol] 24.0 mmol/L 21.0-32.0 [facility] Work Phone: Globulin (S) [Mass/Vol] 3.8 g/dL 2.2-4.2 [facility] Work Phone: Urea nitrogen/Creatinine [Mass ratio] 38.5 mg/mg 10-20 [facility] Work Phone: Laboratory - Hematology and Cell countson 09-18-2021 Erythrocyte distribution width (RBC) [Entitic vol] 42.5 fL 35.1-43.9 [facility] Work Phone: Erythrocyte distribution width (RBC) [Ratio] 13.2 % 11.6-14.6 [facility] Work Phone: Immature granulocytes/100 WBC (Bld) 0.500 % 0.0-0.9 [facility] Work Phone: Comment on above: IG% - Immature Granu locytes (promyelocytes, myelocytes and metamyelocytes) > 1% indicates that a LEFT SHIFT is Present. MCH (RBC) [Entitic mass] 29.6 pg 27.0-32.0 [facility] Work Phone: Nucleated RBC/100 WBC (Bld) [Ratio] 0 % 0-5 [facility] Work Phone: MCHC Auto (RBC) [Mass/Vol]on 09-18-2021 MCHC (RBC) [Mass/Vol] 33.7 g/dL 32-36 [facility] Work Phone: No Panel Informationon 09-18 Estimated GFR (MDRD) Amer 79 mL/min >60 [facility] Work Phone: Comment on above: GFR Calc Estimated GFR (MDRD) Non-Af Amer 65 mL/min >60 [facility] Work Phone: Comment on above: Non- GFR Calc Platelets bldon 09-18-2021 Platelets (Bld) [#/Vol] 265 10*3/uL 150-450 [facility] Work Phone: Serum or plasma C reactive p rotein measurement (mass/volume)on 09-18-2021 CRP [Mass/Vol] 3.35 mg/L 0.0-3.0 [facility] Work Phone: Comment on above: C-Reactive Protein ( CRP) provides useful information for thediagnosis, therapy and monitoring of inflammatory processesand associated diseases. For the evaluation of Relative Riskfor Cardiovascular Disease, a High Sensitivity CRP (HSCRP)should be ordered. Serum or plasma albumin cherelle urement (mass/volume)on 09-18-2021 Albumin [Mass/Vol] 3.5 g/dL 3.2-5.0 [facility] Work Phone: Serum or plasma albumin/glob ulin mass ratioon 09-18-2021 Albumin/Globulin [Mass ratio] 0.9 {ratio} 0.9-2.4 [facility] Work Phone: Serum or plasma calcium cherelle urement (mass/volume)on 09-18-2021 Calcium [Mass/Vol] 9.9 mg/dL 8.5-10.1 [facility] Work Phone: Serum or plasma creatinine m easurement (mass/volume)on 09-18-2021 Creatinine [Mass/Vol] 0.96 mg/dL 0.55-1.02 [facility] Work Phone: Comment on above: The validity of the calculated GFR & GFRAA in patients over 70 years has not been determined. Clinical correlation is essential. Serum or plasma urea nitroge n measurement (mass/volume)on 09-18-2021 Urea nitrogen [Mass/Vol] 37 mg/dL 7-18 [facility] Work Phone: Serum or plasma uric acid me asurement (mass/volume)on 09-18-2021 Urate [Mass/Vol] 5.0 mg/dL 2.6-6.0 [facility] Work Phone: Comment on above: The drugs N-Acetylcy steine and Metamizole may falsely depress this assay. Thin prep Papanicolaou smear with manual screeningon 09-18-2021 Thin prep Papanicolaou smear with manual screening 17 U/L 15-37 [facility] Work Phone: Thin prep Papanicolaou smear with manual screening 9 5-15 [facility] Work Phone: Thin prep Papanicolaou smear with manual screening 172 U/L 84-246 [facility] Work Phone: Glucose Glucometer (BldC) [M ass/Vol]on 09-05-2021 Glucose [Mass/Vol] 201 mg/dL 74-106 [facility] Work Phone: Comment on above: MANAGEMENT OF PATIEN T CARE PER NURSING PROTOCOL No Panel Informationon 08-29 Radiology Study observation (narrative) [facility] XR Knee - right 4 Viewson IMPRESSION: No acute cardiopulmonary disease identified. No left-sided rib fractures. Osteoarthrosis of the right knee. Residential Manager: MALINDA Transcribe Date/Time: Aug 29 2021 12:33P [...] rib fractures. Osteoarthrosis of the right knee. Residential Manager[facility] Trans[facility] Date/Time: Aug 29 2021 12:33P Dictated by : CLARISSA CASTREJON MD This examination was interpreted and the report reviewed and electronically signed by: CLARISSA CASTREJON MD on Aug 29 2021 12:35PM EST [facility] XR Ribs - left Views and [facility] 08-29-2021 IMPRESSION: No acute cardiopulmonary disease identified. No left-sided rib fractures. Osteoarthrosis of the right knee. Residential Manager: [facility] Transcribe Date/Time: Aug 29 2021 [...] [id number]_NOT _USE_DIVIS ION OF RADIOLOGY Provider, Lester Gutierrez [facility] - 08/29/2021 * * *Final [...] rib fractures. Osteoarthrosis of the right knee. Residential Manager: [facility] Transcribe Date/Time: Aug 29 2021 12:33P Dictated by : CLARISSA CASTREJON MD This examination was interpreted and the report reviewed and electronically signed by: CLARISSA CASTREJON MD on Aug 29 2021 12:35PM EST [facility] XR Ribs - left Views and Kate st PAOrdered By: [facility] Provider on 08-29-2021 [facility] Absolute lymphocyte counton 04-23-2021 Lymphocytes Auto (Unsp spec) [#/Vol] 0.79 10*3/uL 0.83-4.51 [facility] Work Phone: [phone] Basophil percentageon 2021 Basophils/100 WBC (Bld) 0.0 % 0-1 [facility] Work Phone: Chloride [Moles/Vol] 98 mmol/L 98-107 [facility] Work Phone: Eosinophils/100 WBC (Bld) 0.0 % 0-5 [facility] Work Phone: [phone] Glucose [Mass/Vol] 352 mg/dL 74-106 [facility] Work Phone: [phone] Comment on above: Glucose result great er than or equal to 200 mg/dLsuggests DIABETES MELLITUS per A.D.A. criteria. Neutrophils (Bld) [#/Vol] 5.2 10*3/uL 2.0-7.7 [facility] Work Phone: Neutrophils/100 WBC (Bld) 82.6 % 47-70 [facility] Work Phone: [phone] Potassium [Moles/Vol] 4.2 mmol/L 3.5-5.1 [facility] Work Phone: [phone] Sodium [Moles/Vol] 134 mmol/L 136-145 [facility] Work Phone: WBC (Bld) [#/Vol] 6.3 10*3/uL 4.4-11.0 [facility] Work Phone: [phone] Blood erythrocytes count (nu mber/volume)on 04-23-2021 RBC (Bld) [#/Vol] 4.53 10*6/uL 4.2-5.4 [facility] Work Phone: Blood hemoglobin measurement (mass/volume)on 04-23-2021 Hemoglobin (Bld) [Mass/Vol] 12.5 g/dL 12.0-15.0 [facility] Work Phone: Blood lymphocytes/100 leukoc yteson 04-23-2021 Lymphocytes/100 WBC (Bld) 12.6 % 19-41 [facility] Work Phone: Blood monocytes/100 leukocyt eson 04-23-2021 Monocytes/100 WBC (Bld) 4.0 % 0-10 [facility] Work Phone: Blood platelet mean volumeon 04-23-2021 Platelet mean volume (Bld) [Entitic vol] 9.6 fL 6.2-12.0 [facility] Work Phone: Determination of erythrocyte mean corpuscular volume (MCV)on 04-23-2021 MCV (RBC) [Entitic vol] 85.2 fL 81-99 [facility] Work Phone: Glucose Glucometer (BldC) [M ass/Vol]on 04-23-2021 Glucose [Mass/Vol] 330 mg/dL 70-110 [facility] Work Phone: Comment on above: MANAGEMENT OF PATIEN T CARE PER NURSING PROTOCOL Hematocrit Auto (Bld) [Volum e fraction]on 04-23-2021 Hematocrit (Bld) [Volume fraction] 38.6 % 37-47 [facility] Work Phone: Laboratory - Chemistry and C hemistry - challengeon 04-23-2021 CO2 [Moles/Vol] 28.0 mmol/L 21.0-32.0 [facility] Work Phone: Urea nitrogen/Creatinine [Mass ratio] 44.7 mg/mg 10-20 [facility] Work Phone: Laboratory - Hematology and Cell countson 04-23-2021 Erythrocyte distribution width (RBC) [Entitic vol] 44.5 fL 35.1-43.9 [facility] Work Phone: Erythrocyte distribution width (RBC) [Ratio] 14.3 % 11.6-14.6 [facility] Work Phone: Immature granulocytes/100 WBC (Bld) 0.800 % 0.0-0.9 [facility] Work Phone: Comment on above: IG% - Immature Granu locytes (promyelocytes, myelocytes and metamyelocytes) > 1% indicates that a LEFT SHIFT is Present. MCH (RBC) [Entitic mass] 27.6 pg 27.0-32.0 [facility] Work Phone: Nucleated RBC/100 WBC (Bld) [Ratio] 0 % 0-5 [facility] Work Phone: MCHC Auto (RBC) [Mass/Vol]on 04-23-2021 MCHC (RBC) [Mass/Vol] 32.4 g/dL 32-36 [facility] Work Phone: No Panel Informationon 04-23 Estimated Creatinine Clearance Calc 97.20 ml/min [facility] Work Phone: Estimated GFR (MDRD) Amer 129 mL/min >60 [facility] Work Phone: Comment on above: GFR Calc Estimated GFR (MDRD) Non-Af Amer 107 mL/min >60 [facility] Work Phone: Comment on above: Non- GFR Calc Platelets bldon 04-23-2021 Platelets (Bld) [#/Vol] 241 10*3/uL 150-450 [facility] Work Phone: Serum or plasma calcium cherelle urement (mass/volume)on 04-23-2021 Calcium [Mass/Vol] 9.5 mg/dL 8.5-10.1 [facility] Work Phone: Serum or plasma creatinine m easurement (mass/volume)on 04-23-2021 Creatinine [Mass/Vol] 0.63 mg/dL 0.55-1.02 [facility] Work Phone: Comment on above: The validity of the calculated GFR & GFRAA in patients over 70 years has not been determined. Clinical correlation is essential. Serum or plasma urea nitroge n measurement (mass/volume)on 04-23-2021 Urea nitrogen [Mass/Vol] 28 mg/dL 7-18 [facility] Work Phone: Thin prep Papanicolaou smear with manual screeningon 04-23-2021 Thin prep Papanicolaou smear with manual screening 8 5-15 [facility] Work Phone: Basophil percentageon 2021 Bilirubin [Mass/Vol] 0.40 mg/dL 0.20-1.00 [facility] Work Phone: Comment on above: For patients on eltr ombopag therapy, use of Dimension Saffell TBIL is not recommended. Protein [Mass/Vol] 7.0 g/dL 6.4-8.2 [facility] Work Phone: Direct bilirubinon 2 Bilirubin.direct [Mass/Vol] 0.09 mg/dL 0.00-0.30 [facility] Work Phone: Laboratory - Chemistry and C hemistry - challengeon 04-22-2021 ALP [Catalytic activity/Vol] 67 U/L 45-117 [facility] Work Phone: ALT [Catalytic activity/Vol] 19 U/L 13-56 [facility] Work Phone: Globulin (S) [Mass/Vol] 4.1 g/dL 2.2-4.2 [facility] Work Phone: Magnesium [Mass/Vol] 2.0 mg/dL 1.6-2.6 [facility] Work Phone: Serum or plasma albumin cherelle urement (mass/volume)on 04-22-2021 Albumin [Mass/Vol] 2.9 g/dL 3.2-5.0 [facility] Work Phone: Thin prep Papanicolaou smear with manual screeningon 04-22-2021 Thin prep Papanicolaou smear with manual screening 9 U/L 15-37 [facility] Work Phone: Basophil percentageon 2021 Basophil percentage Not Reportable [facility] Work Phone: Laboratory - Chemistry and C hemistry - challengeon 04-20-2021 Natriuretic peptide B (Bld) [Mass/Vol] 72.8 pg/mL 0-100 [facility] Work Phone: Free T4 [Mass/Vol] 1.21 ng/dL 0.76-1.46 [facility] Work Phone: Laboratory - Microbiology an d Antimicrobial susceptibilityon 04-20-2021 SARS-CoV-2 (COVID-19) RNA RUTH+probe Ql (Unsp spec) Not detected Not Detect [facility] Work Phone: Comment on above: Normal Reference [...] Informationon 04-20 Anti-Nuclear Antibody Screen Negative Negative [facility] Work Phone: Comment on above: Performed at: [facility] [id number] [place], [place] [id number] Director: Tarik Whitley PhD, Phone: [phone] [employer] Antibody Not Reportable [facility] Work Phone: [employer] Antibody Not Reportable [facility] Work Phone: Thyroid Stimulating Hormone (TSH) 0.58 uIU/mL 0.358-3.74 [facility] Work Phone: Troponin I High Sensitivity 10 pg/mL 3.0-54.0 [facility] Work Phone: Comment on above: Please Note: [place] t Units and Gender Specific Reference Ranges. For more information see Policy Stat Procedure Saffell High Sensitivity Troponin (TNIH) and attachments. Serum DNA double strand anti body assay (units/volume)on 04-20-2021 DNA double strand Ab Qn (S) Not Reportable [facility] Work Phone: Serum Patti-1 antibody assay (u nits/volume)on 04-20-2021 Patti-1 extractable nuclear Ab Qn (S) Not Reportable [facility] Work Phone: Serum Scl-70 extractable nuc lear antibody assay (units/volume)on 04-20-2021 SCL-70 extractable nuclear Ab Qn (S) Not Reportable [facility] Work Phone: Serum Rouse extractable nucl ear antibody detectionon 04-20-2021 Rouse extractable nuclear Ab Ql (S) Not Reportable [facility] Work Phone: Serum cyclic citrullinated p eptide IgG antibody assay (units/volume)on 04-20-2021 Cyclic citrullinated peptide IgG Qn 6 units [facility] Work Phone: Comment on above: Negative <20 Weak po sitive 20 - 39 Moderate positive 40 - 59 Strong positive >59Performed at: - [facility] [id number] Director: Castro Medina MD, Phone: [phone] Serum or plasma albumin/glob ulin mass ratioon 04-20-2021 Albumin/Globulin [Mass ratio] 0.7 {ratio} 0.9-2.4 [facility] Work Phone: Serum procalcitonin measurem enton 04-20-2021 Procalcitonin [Mass/Vol] 0.13 ng/mL 0.00-0.09 [facility] Work Phone: Comment on above: A procalcitonin [...] factor Ql (S) < 10.0 IU/mL <15 [facility] Work Phone: Basophil percentageon 2021 Lactate [Moles/Vol] 1.7 mmol/L 0.4-2.0 [facility] Work Phone: No Panel Informationon 04-19 Methicillin-Resist S.aureus DNA PCR Negative Negative [facility] Work Phone: Streptococcus pneumoniae Antigen (M [facility] Work Phone: Absolute lymphocyte counton 04-09-2021 Lymphocytes Auto (Unsp spec) [#/Vol] 0.85 10*3/uL 0.83-4.51 [facility] Work Phone: Basophil percentageon 2021 Basophils/100 WBC (Bld) 0.5 % 0-1 [facility] Work Phone: Bilirubin [Mass/Vol] 0.30 mg/dL 0.20-1.00 [facility] Work Phone: Comment on above: For patients on eltr ombopag therapy, use of Dimension Saffell TBIL is not recommended. Chloride [Moles/Vol] 101 mmol/L 98-107 [facility] Work Phone: [phone] Eosinophils/100 WBC (Bld) 1.2 % 0-5 [facility] Work Phone: [phone] Glucose [Mass/Vol] 346 mg/dL 74-106 [facility] Work Phone: Comment on above: Glucose result great er than or equal to 200 mg/dLsuggests DIABETES MELLITUS per A.D.A. criteria.Please note revised GLUCOSE reference range effective 2017. Neutrophils (Bld) [#/Vol] 2.8 10*3/uL 2.0-7.7 [facility] Work Phone: [phone] Neutrophils/100 WBC (Bld) 66.8 % 47-70 [facility] Work Phone: [phone] Potassium [Moles/Vol] 4.3 mmol/L 3.5-5.1 [facility] Work Phone: [phone] Protein [Mass/Vol] 6.6 g/dL 6.4-8.2 [facility] Work Phone: [phone] Sodium [Moles/Vol] 135 mmol/L 136-145 [facility] Work Phone: [phone] WBC (Bld) [#/Vol] 4.2 10*3/uL 4.4-11.0 [facility] Work Phone: [phone] Blood erythrocytes count (nu mber/volume)on 04-09-2021 RBC (Bld) [#/Vol] 3.32 10*6/uL 4.2-5.4 [facility] Work Phone: [phone] Blood hemoglobin measurement (mass/volume)on 04-09-2021 Hemoglobin (Bld) [Mass/Vol] 9.0 g/dL 12.0-15.0 [facility] Work Phone: Blood lymphocytes/100 leukoc yteson 04-09-2021 Lymphocytes/100 WBC (Bld) 20.4 % 19-41 [facility] Work Phone: Blood monocytes/100 leukocyt eson 04-09-2021 Monocytes/100 WBC (Bld) 9.9 % 0-10 [facility] Work Phone: Blood platelet mean volumeon 04-09-2021 Platelet mean volume (Bld) [Entitic vol] 10.7 fL 6.2-12.0 [facility] Work Phone: Determination of erythrocyte mean corpuscular volume (MCV)on 04-09-2021 MCV (RBC) [Entitic vol] 88.0 fL 81-99 [facility] Work Phone: Glucose Glucometer (BldC) [M ass/Vol]on 04-09-2021 Glucose [Mass/Vol] 228 mg/dL 70-110 [facility] Work Phone: Comment on above: MANAGEMENT OF PATIEN T CARE PER NURSING PROTOCOL Hematocrit Auto (Bld) [Volum e fraction]on 04-09-2021 Hematocrit (Bld) [Volume fraction] 29.2 % 37-47 [facility] Work Phone: Laboratory - Chemistry and C hemistry - challengeon 04-09-2021 ALP [Catalytic activity/Vol] 122 U/L 45-117 [facility] Work Phone: ALT [Catalytic activity/Vol] 50 U/L 13-56 [facility] Work Phone: CO2 [Moles/Vol] 26.0 mmol/L 21.0-32.0 [facility] Work Phone: Globulin (S) [Mass/Vol] 4.6 g/dL 2.2-4.2 [facility] Work Phone: Urea nitrogen/Creatinine [Mass ratio] 38.1 mg/mg 10-20 [facility] Work Phone: Laboratory - Hematology and Cell countson 04-09-2021 Erythrocyte distribution width (RBC) [Entitic vol] 45.1 fL 35.1-43.9 [facility] Work Phone: Erythrocyte distribution width (RBC) [Ratio] 14.5 % 11.6-14.6 [facility] Work Phone: Immature granulocytes/100 WBC (Bld) 1.200 % 0.0-0.9 [facility] Work Phone: Comment on above: IG% - Immature Granu locytes (promyelocytes, myelocytes and metamyelocytes) > 1% indicates that a LEFT SHIFT is Present. MCH (RBC) [Entitic mass] 27.1 pg 27.0-32.0 [facility] Work Phone: Nucleated RBC/100 WBC (Bld) [Ratio] 0.5 % 0-5 [facility] Work Phone: MCHC Auto (RBC) [Mass/Vol]on 04-09-2021 MCHC (RBC) [Mass/Vol] 30.8 g/dL 32-36 [facility] Work Phone: No Panel Informationon 04-09 Estimated Creatinine Clearance Calc 90.05 ml/min [facility] Work Phone: Estimated GFR (MDRD) Amer 118 mL/min >60 [facility] Work Phone: Comment on above: GFR Calc Estimated GFR (MDRD) Non-Af Amer 97 mL/min >60 [facility] Work Phone: Comment on above: Non- GFR Calc Platelets bldon 04-09-2021 Platelets (Bld) [#/Vol] 301 10*3/uL 150-450 [facility] Work Phone: Serum or plasma albumin cherelle urement (mass/volume)on 04-09-2021 Albumin [Mass/Vol] 2.0 g/dL 3.2-5.0 [facility] Work Phone: Serum or plasma albumin/glob ulin mass ratioon 04-09-2021 Albumin/Globulin [Mass ratio] 0.4 {ratio} 0.9-2.4 [facility] Work Phone: Serum or plasma calcium cherelle urement (mass/volume)on 04-09-2021 Calcium [Mass/Vol] 8.7 mg/dL 8.5-10.1 [facility] Work Phone: Serum or plasma creatinine m easurement (mass/volume)on 04-09-2021 Creatinine [Mass/Vol] 0.68 mg/dL 0.55-1.02 [facility] Work Phone: Comment on above: The validity of the calculated GFR & GFRAA in patients over 70 years has not been determined. Clinical correlation is essential. Serum or plasma urea nitroge n measurement (mass/volume)on 04-09-2021 Urea nitrogen [Mass/Vol] 26 mg/dL 7-18 [facility] Work Phone: Thin prep Papanicolaou smear with manual screeningon 04-09-2021 Thin prep Papanicolaou smear with manual screening 36 U/L 15-37 [facility] Work Phone: Thin prep Papanicolaou smear with manual screening 8 5-15 [facility] Work Phone: Gram stain for investigation of transfusion reactionon 04-08-2021 Microscopic observation Gram stain Nom (Unsp spec) [facility] Work Phone: No Panel Informationon 04-08 SARS-CoV-2 Antigen (Rapid) [facility] Work Phone: Review by pathologiston Pathologist review Jose Angel (Unsp spec) [Interp] Reviewed [facility] Work Phone: Comment on above: Previous reported re sult: Uma mora Edited by: RGOOD on 04/08/21:1404Leukopenia and Normocytic anemia.Clinical correlation necessary.Codey Boston M.D. 04/08/21 AMENDED REPORT 04/08/21 1404 PATH REV previously reported as: Uma mora Basophil percentageon 2021 Lactate [Moles/Vol] 0.9 mmol/L 0.4-2.0 [facility] Work Phone: INR in Blood by Coagulation assayon 04-07-2021 INR Coag (Bld) [Relative time] 1.1 {INR} [facility] Work Phone: Laboratory - Chemistry and C hemistry - challengeon 04-07-2021 CK [Catalytic activity/Vol] 23 U/L 26-192 [facility] Work Phone: Magnesium [Mass/Vol] 1.6 mg/dL 1.6-2.6 [facility] Work Phone: Natriuretic peptide B (Bld) [Mass/Vol] 385.2 pg/mL 0-100 [facility] Work Phone: Laboratory - Coagulationon 0 04-07-2021 PT Coag (PPP) [Time] 13.8 s 11.7-14.9 [facility] Work Phone: Laboratory - Microbiology an d Antimicrobial susceptibilityon 04-07-2021 Bacteria identified Cx Nom (Bld) No growth in 5 days. [facility] Work Phone: No Panel Informationon 04-07 Streptococcus pneumoniae Antigen (M [facility] Work Phone: Troponin I High Sensitivity 37 pg/mL 3.0-54.0 [facility] Work Phone: Comment on above: Please Note: [place] Units and Gender Specific Reference Ranges. For more information see Policy Stat Procedure [place] High Sensitivity Troponin (TNIH) and attachments. D-Dimer Quantitative (PE/DVT) 3.96 FEU/ug/m 0.27-0.49 [facility] Work Phone: Comment on above: D-Dimer ELEVATED (>0 .49): Additional studies and clinicalassessments are indicated to conclude diagnosis of:Deep Vein Thrombosis (DVT) or Pulmonary Embolism (PE)CRITICAL VALUE VERIFIED. CALLED TO BULL ROMERO04/07/21 1904 Pippa Levi.RESULTS READ BACK BY SAME . Fibrinogen > 900 mg/dl 203-444 [facility] Work Phone: Serum or plasma C reactive p rotein measurement (mass/volume)on 04-07-2021 CRP [Mass/Vol] 246.00 mg/L 0.0-3.0 [facility] Work Phone: Comment on above: C-Reactive Protein ( CRP) provides useful information for thediagnosis, therapy and monitoring of inflammatory processesand associated diseases. For the evaluation of Relative Riskfor Cardiovascular Disease, a High Sensitivity CRP (HSCRP)should be ordered. Serum or plasma acetone cherelle urement (mass/volume)on 04-07-2021 Acetone [Mass/Vol] Negative NEG [facility] Work Phone: Serum procalcitonin measurem enton 04-07-2021 Procalcitonin [Mass/Vol] 1.08 ng/mL 0.00-0.09 [facility] Work Phone: Comment on above: A procalcitonin [...] smear with manual screening 346 U/L 84-246 [facility] Work Phone: Basophil percentageon 2020 Chloride [Moles/Vol] 108 mmol/L 98-107 [facility] Work Phone: Glucose [Mass/Vol] 152 mg/dL 74-106 [facility] Work Phone: Comment on above: Fasting Glucose resu lt greater than or equal to 126 mg/dL suggests DIABETES MELLITUS per A.D.A. criteria.Please note revised GLUCOSE reference range effective 2017. Potassium [Moles/Vol] 3.6 mmol/L 3.5-5.1 [facility] Work Phone: Sodium [Moles/Vol] 141 mmol/L 136-145 [facility] Work Phone: Glucose Glucometer (BldC) [M ass/Vol]on 03-24-2021 Glucose [Mass/Vol] 209 mg/dL 70-110 [facility] Work Phone: Comment on above: MANAGEMENT OF PATIEN T CARE PER NURSING PROTOCOL Laboratory - Chemistry and C hemistry - challengeon 03-24-2021 CO2 [Moles/Vol] 26.0 mmol/L 21.0-32.0 [facility] Work Phone: Urea nitrogen/Creatinine [Mass ratio] 10.1 mg/mg 10-20 [facility] Work Phone: No Panel Informationon 03-24 Estimated Creatinine Clearance Calc 146.91 ml/min [facility] Work Phone: Estimated GFR (MDRD) Amer 221 mL/min >60 [facility] Work Phone: Comment on above: GFR Calc Estimated GFR (MDRD) Non-Af Amer 182 mL/min >60 [facility] Work Phone: Comment on above: Non- GFR Calc Serum or plasma calcium cherelle urement (mass/volume)on 03-24-2021 Calcium [Mass/Vol] 8.2 mg/dL 8.5-10.1 [facility] Work Phone: Serum or plasma creatinine m easurement (mass/volume)on 03-24-2021 Creatinine [Mass/Vol] 0.40 mg/dL 0.55-1.02 [facility] Work Phone: Comment on above: The validity of the calculated GFR & GFRAA in patients over 70 years has not been determined. Clinical correlation is essential. Serum or plasma urea nitroge n measurement (mass/volume)on 03-24-2021 Urea nitrogen [Mass/Vol] 4 mg/dL 10-21 [facility] Work Phone: Thin prep Papanicolaou smear with manual screeningon 03-24-2021 Thin prep Papanicolaou smear with manual screening 7 - [facility] Work Phone: Vancomycin troughon 03-24-20 Vancomycin trough [Mass/Vol] 3.6 ug/mL 5.0-15.0 [facility] Work Phone: Comment on above: VANCOMYCIN STANDARED DRUG THERAPY TROUGH LEVEL: 5.0 - 15.0 mg/L VANCOMYCIN HIGH INTENSITY THERAPY TROUGH LEVEL: 15.0 - 20.0 mg/L High Intensity therapy recommended for serious lifethreatening infections include:- Guiahqcqrk-Zpvzuasjjrbk-Fvxmhlhdz (Ventilator/Healtcare Associated)-Sepsis PLEASE CONTACT PHARMACY SERVICES (#[id number]) FOR INTERPRETATIONOF RESULTS. Absolute lymphocyte counton 03-23-2021 Lymphocytes Auto (Unsp spec) [#/Vol] 0.82 10*3/uL 0.83-4.51 [facility] Work Phone: Basophil percentageon 2020 Neutrophils (Bld) [#/Vol] 5.5 10*3/uL 2.0-7.7 [facility] Work Phone: [phone] WBC (Bld) [#/Vol] 7.5 10*3/uL 4.4-11.0 [facility] Work Phone: [phone] Blood band neutrophil count as percentage of total leukocyteson 03-23-2021 Band form neutrophils/100 WBC (Bld) 11 % 0-5 [facility] Work Phone: [phone] Blood erythrocytes count (nu mber/volume)on 03-23-2021 RBC (Bld) [#/Vol] 3.90 10*6/uL 4.2-5.4 [facility] Work Phone: [phone] Blood hemoglobin measurement (mass/volume)on 03-23-2021 Hemoglobin (Bld) [Mass/Vol] 11.2 g/dL 12.0-15.0 [facility] Work Phone: Blood lymphocytes/100 leukoc yteson 03-23-2021 Lymphocytes/100 WBC (Bld) 11 % 19-41 [facility] Work Phone: Blood metamyelocytes/100 marquise kocyteson 03-23-2021 Metamyelocytes/100 WBC (Bld) 9 % 0-1 [facility] Work Phone: Blood monocytes/100 leukocyt eson 03-23-2021 Monocytes/100 WBC (Bld) 6 % 0-10 [facility] Work Phone: Blood platelet adequacy dete ction by light microscopyon 03-23-2021 Platelets LM Ql (Bld) SLT DEC ADEQ [facility] Work Phone: Blood platelet mean volumeon 03-23-2021 Platelet mean volume (Bld) [Entitic vol] 9.7 fL 6.2-12.0 [facility] Work Phone: Blood segmented neutrophils/ 100 leukocyteson 03-23-2021 Segmented neutrophils/100 WBC (Bld) 63 % 47-70 [facility] Work Phone: Determination of erythrocyte mean corpuscular volume (MCV)on 03-23-2021 MCV (RBC) [Entitic vol] 80.5 fL 81-99 [facility] Work Phone: Hematocrit Auto (Bld) [Volum e fraction]on 03-23-2021 Hematocrit (Bld) [Volume fraction] 31.4 % 37-47 [facility] Work Phone: Laboratory - Hematology and Cell countson 03-23-2021 Anisocytosis Ql (Bld) 1+ [facility] Work Phone: Erythrocyte distribution width (RBC) [Entitic vol] 38.2 fL 35.1-43.9 [facility] Work Phone: Erythrocyte distribution width (RBC) [Ratio] 13.2 % 11.6-14.6 [facility] Work Phone: MCH (RBC) [Entitic mass] 28.7 pg 27.0-32.0 [facility] Work Phone: MCHC Auto (RBC) [Mass/Vol]on 03-23-2021 MCHC (RBC) [Mass/Vol] 35.7 g/dL 32-36 [facility] Work Phone: No Panel Informationon 03-23 Neutrophils (%) (Auto) Not Reportable [facility] Work Phone: Platelets bldon 03-23-2021 Platelets (Bld) [#/Vol] 103 10*3/uL 150-450 [facility] Work Phone: Review by pathologiston 03-06 Pathologist review Jose Angel (Unsp spec) [Interp] Reviewed [facility] Work Phone: Comment on above: Previous reported re sult: Uma mora Edited by: RGOJOANNE on 03/26/21:923Microcytic anemia.Mild Thrombocytopenia.Clinical correlation suggested.Manuel Gold D.O. 03/26/21 AMENDED REPORT 03/26/21923 PATH REV previously reported as: Uma mora Total cell counton Cells counted Molgen (Bld/Tiss) [#] 100 MANUAL DIFF [facility] Work Phone: Laboratory - Hematology and Cell countson 03-22-2021 Myelocytes/100 WBC (Bld) 1 % 0-0 [facility] Work Phone: RBC morphologyon 03-22-2021 RBC morphology finding Nom (Bld) NORM C+C NORMAL NORM C&C [facility] Work Phone: Whole blood hemoglobin A1c/t otal hemoglobin ratio (mass fraction)on 03-22-2021 HbA1c (Bld) [Mass fraction] 13.9 % 3.8-5.6 [facility] Work Phone: Comment on above: Normal < 5.7 % Predi abetic 5.7 - 6.4 % Diabetic >or= 6.5 % Please note range changes. Blood promyelocytes/100 leuk ocyteson 03-21-2021 Promyelocytes/100 WBC (Bld) 2 % 0-0 [facility] Work Phone: No Panel Informationon 03-21 Atypical Lymphocytes 1+ % [facility]: [phone] Thyroid Stimulating Hormone (TSH) 0.37 uIU/mL 0.358-3.74 [facility] Work Phone: [phone] Basophil percentageon 2020 Eosinophils/100 WBC (Bld) 0.1 % 0-5 [facility] Work Phone: [phone] Blood lymphocytes/100 leukoc yteson 03-20-2021 Lymphocytes/100 WBC (Bld) 10.0 % 19-41 [facility] Work Phone: [phone] Blood monocytes/100 leukocyt eson 03-20-2021 Monocytes/100 WBC (Bld) 11.5 % 0-10 [facility] Work Phone: [phone] Laboratory - Hematology and Cell countson 03-20-2021 Basophils/100 WBC (Unsp spec) 0.6 % 0-1 [facility] Work Phone: [phone] Immature granulocytes/100 WBC (Bld) 3.900 % 0.0-0.9 [facility] Work Phone: Comment on above: IG% - Immature Granu locytes (promyelocytes, myelocytes and metamyelocytes) > 1% indicates that a LEFT SHIFT is Present. Nucleated RBC/100 WBC (Bld) [Ratio] 0 % 0-5 [facility] Work Phone: Laboratory - Microbiology an d Antimicrobial susceptibilityon 03-20-2021 Bacteria identified Cx Nom (Bld) No growth in 5 days. [facility] Work Phone: Amorphous sediment detection in urine sediment by light microscopyon 03-19-2021 Amorphous sediment LM Ql (Urine sed) 1+ [facility] Work Phone: [phone] Basophil percentageon 2020 Basophil percentage 0-5 SEEN /hpf [facility] Work Phone: Bilirubin [Mass/Vol] 0.60 mg/dL 0.20-1.00 [facility] Work Phone: Comment on above: For patients on eltr ombopag therapy, use of Dimension S[place]ell TBIL is not recommended. Protein [Mass/Vol] 7.1 g/dL 6.4-8.2 [facility] Work Phone: Bilirubin Test strip Ql (U)o n 03-19-2021 Bilirubin Ql (U) Negative Negative [facility] Work Phone: Blood manual differential co mment interpretation (narrative result)on 03-19-2021 Manual differential comment Jose Angel (Bld) [Interp] SCANNED [facility] Work Phone: Comment on above: MONOCYTOSIS NOTED HCO3 (BldA) [Moles/Vol]on HCO3 (Bld) [Moles/Vol] 4 mmol/L - [facility] Work Phone: Hyaline casts LM.LPF (Urine sed) [#/Area]on 03-19-2021 Hyaline casts (Urine sed) [#/Area] 5 /[LPF] [facility] Work Phone: Ketones Test strip Ql (U)on 03-19-2021 Ketones Ql (U) 150 mg/dl Negative [facility] Work Phone: Comment on above: CRITICAL VALUE VERIF IED. CALLED TO JANE [id number] Eulalio López.RESULTS READ BACK BY SAME . CRITICAL VALUE *H Laboratory - Chemistry and C hemistry - challengeon 03-19-2021 ALP [Catalytic activity/Vol] 124 U/L 45-117 [facility] Work Phone: ALT [Catalytic activity/Vol] 30 U/L 13-56 [facility] Work Phone: Globulin (S) [Mass/Vol] 4.7 g/dL 2.2-4.2 [facility] Work Phone: Magnesium [Mass/Vol] 2.6 mg/dL 1.6-2.6 [facility] Work Phone: Comment on above: Slight Hemolysis, Re sult may be falsely increased. Mucus LM Ql (Urine sed)on Mucus Ql (Urine sed) 0 SEEN /hpf [facility] Work Phone: Nitrite Test strip Ql (U)on 03-19-2021 Nitrite Ql (U) Negative Negative [facility] Work Phone: No Panel Informationon 03-19 Bed Mix Venous Bld PCO2 at Pat Temp 13.9 mmHg 41-51 [facility] Work Phone: Bld Gas Crit Called To/Read Back By Yes [facility] Work Phone: Blood Gas Notified Time 21:29:48 [facility] Work Phone: Blood Gas Notified Whom Le [facility] Work Phone: Comment on above: Previous reported re sult: Li Edited by: WILIAN on 03/20/21:0622 AMENDED REPORT 03/20/21 06 Results To previously reported as: Lea Blood Gas Specimen Type ROSEMARIE [facility] Work Phone: Oxygen Delivery Device Room Air [facility] Work Phone: Venous Blood Base Excess -26 mmol/L -1.0-3.5 [facility] Work Phone: Venous Blood Total Carbon Dioxide < 5 mmol/L 23-33 [facility] Work Phone: SARS-CoV-2 Antigen (Rapid) SARS-CoV-2 (COVID 19) [facility] Work Phone: PO2 venouson 03-19-2021 Oxygen (BldV) [Partial pressure] 61 mm[Hg] 25-40 [facility] Work Phone: Protein Test strip Ql (U)on 03-19-2021 Protein Ql (U) 100 mg/dl Negative [facility] Work Phone: Serum or plasma C reactive p rotein measurement (mass/volume)on 03-19-2021 CRP [Mass/Vol] 73.00 mg/L 0.0-3.0 [facility] Work Phone: Comment on above: C-Reactive Protein ( CRP) provides useful information for thediagnosis, therapy and monitoring of inflammatory processesand associated diseases. For the evaluation of Relative Riskfor Cardiovascular Disease, a High Sensitivity CRP (HSCRP)should be ordered. Serum or plasma acetone cherelle urement (mass/volume)on 03-19-2021 Acetone [Mass/Vol] LARGE NEG [facility] Work Phone: Serum or plasma albumin cherelle urement (mass/volume)on 03-19-2021 Albumin [Mass/Vol] 2.4 g/dL 3.2-5.0 [facility] Work Phone: Serum or plasma albumin/glob ulin mass ratioon 03-19-2021 Albumin/Globulin [Mass ratio] 0.5 {ratio} 0.9-2.4 [facility] Work Phone: Squamous epithelial cells de tection in urine sediment by light microscopyon 03-19-2021 Epithelial cells.squamous LM Ql (Urine sed) 0 SEEN /hpf [facility] Work Phone: Thin prep Papanicolaou smear with manual screeningon 03-19-2021 Thin prep Papanicolaou smear with manual screening 35 U/L 15-37 [facility] Work Phone: Comment on above: Slight Hemolysis, Re sult may be falsely increased. Urine blood detectionon 03-06 RBC Ql (U) 250 /ul Negative [facility] Work Phone: RBC Ql (U) 0 SEEN /hpf [facility] Work Phone: Urine clarityon 03-19-2021 Clarity (U) Clear Clear [facility] Work Phone: Urine color determinationon 03-19-2021 Color (U) Yellow Yellow [facility] Work Phone: Urine glucose detectionon Glucose Ql (U) 1000 mg/dl Normal [facility] Work Phone: Urine leukocyte esterase det ection by dipstickon 03-19-2021 Leukocyte esterase Test strip Ql (U) Negative Negative [facility] Work Phone: Urine pHon 03-19-2021 pH (U) 5.0 [pH] [facility] Work Phone: Urine sediment bacteria coun t by microscopy (number/high power field)on 03-19-2021 Bacteria LM.HPF (Urine sed) [#/Area] 1 /[HPF] None Seen [facility] Work Phone: Urine specific gravity measu rementon 03-19-2021 Specific gravity (U) [Rel density] 1.025 [facility] Work Phone: Urobilinogen Auto test strip Ql (U)on 03-19-2021 Urobilinogen Ql (U) Normal mg/dl Normal [facility] Work Phone: Vital signson 03-19-2021 Oxygen saturation in Blood 80 % 50-70 [facility] Work Phone: pH measurementon 03-19-2021 pH (Unsp spec) 7.06 [pH] 7.32-7.42 [facility] Work Phone: No Panel Information [facility] Vital Signs Date Time Vital Sign Value Performing Clinician Facility 12-05-2024 00:20-0400 Body temperature 98 [degF] Dr. Sapna Ray DO Work Phone: [facility] 12-05-2024 00:20-0400 Diastolic blood pressure 86 mm[Hg] Dr. Sapna Ray DO Work Phone: [facility] 12-05-2024 00:20-0400 Heart rate 115 /min Dr. Sapna Ray DO Work Phone: [facility] 12-05-2024 00:20-0400 Respiratory rate 19 /min Dr. Sapna Ray DO Work Phone: [facility] 12-05-2024 00:20-0400 SaO2% (BldA) [Mass fraction] 98 % Dr. Sapna Ray DO Work Phone: [facility] 12-05-2024 00:20-0400 Systolic blood pressure 157 mm[Hg] Dr. Sapna Ray DO Work Phone: [facility] 12-04-2024 21:21-0400 Body mass index (BMI) [Ratio] 34.8 kg/m2 Dr. Sapna Ray DO Work Phone: [facility] 12-04-2024 21:21-0400 Body weight 94.[address] Sapna Ray DO Work Phone: [facility] 12-04-2024 20:40-0400 Body height 165.[address] Sapna Ray DO Work Phone: [facility] 10-19-2024 15:01-0400 Body temperature 97.6 [degF] Dr. Sapna Ray DO Work Phone: [facility] 10-19-2024 15:01-0400 Diastolic blood pressure 78 mm[Hg] Dr. Sapna Ray DO Work Phone: [facility] 10-19-2024 15:01-0400 Heart rate 68 /min Dr. Sapna Ray DO Work Phone: [facility] 10-19-2024 15:01-0400 Respiratory rate 17 /min Dr. Sapna Ray DO Work Phone: [facility] 10-19-2024 15:01-0400 SaO2% (BldA) [Mass fraction] 97 % Dr. Sapna Ray DO Work Phone: [facility] 10-19-2024 15:01-0400 Systolic blood pressure 136 mm[Hg] Dr. Sapna Ray DO Work Phone: [facility] 10-19-2024 13:43-0400 Diastolic blood pressure 73 mm[Hg] Dr. Sapna Ray DO Work Phone: [facility] 10-19-2024 13:43-0400 Heart rate 122 /min Dr. Sapna Ray DO Work Phone: [facility] 10-19-2024 13:43-0400 Respiratory rate 18 /min Dr. Sapna Ray DO Work Phone: [facility] 10-19-2024 13:43-0400 Systolic blood pressure 124 mm[Hg] Dr. Sapna Ray DO Work Phone: [facility] 10-19-2024 10:16-0400 Body height 165.[address] Sapna Ray DO Work Phone: [facility] 10-19-2024 10:16-0400 Body weight 89.[address] Sapna Ray DO Work Phone: [facility] 10-19-2024 09:20-0400 Body temperature 98 [degF] Dr. Sapna Ray DO Work Phone: [facility] 10-19-2024 09:20-0400 SaO2% (BldA) [Mass fraction] 95 % Dr. Sapna Ray DO Work Phone: [facility] 10-18-2024 15:01-0400 Body mass index (BMI) [Ratio] 32.8 kg/m2 Dr. Sapna Ray DO Work Phone: [facility] 10-18-2024 14:00-0400 Body temperature 97.4 [degF] Dr. Sapna Ray DO Work Phone: [facility] 10-18-2024 14:00-0400 Diastolic blood pressure 76 mm[Hg] Dr. Sapna Ray DO Work Phone: [facility] 10-18-2024 14:00-0400 Heart rate 111 /min Dr. Sapna Ray DO Work Phone: [facility] 10-18-2024 14:00-0400 Respiratory rate 20 /min Dr. Sapna Ray DO Work Phone: [facility] 10-18-2024 14:00-0400 SaO2% (BldA) [Mass fraction] 93 % Dr. Sapna Ray DO Work Phone: [facility] 10-18-2024 14:00-0400 Systolic blood pressure 134 mm[Hg] Dr. Sapna Ray DO Work Phone: [facility] 10-18-2024 09:59-0400 Body height 165.[address] Sapna Ray DO Work Phone: [facility] 10-18-2024 09:59-0400 Body mass index (BMI) [Ratio] 32.8 kg/m2 Dr. Sapna Ray DO Work Phone: [facility] 10-18-2024 09:59-0400 Body weight 89.[address] Sapna Ray DO Work Phone: [facility] 07-18-2024 09:53-0400 Body mass index (BMI) [Ratio] 30.14 kg/m2 Merry Medrano APRN.PAVER Work Phone: [facility] 07-18-2024 09:53-0400 Body temperature 98.29 [degF] Merry Medrano APRN.PAVER Work Phone: [facility] 07-18-2024 09:53-0400 Body weight 82.8 kg Merry Medrano APRN.PAVER Work Phone: [facility] 07-18-2024 09:53-0400 Diastolic blood pressure 78 mm[Hg] Merry Medrano APRN.PAVER Work Phone: [facility] 07-18-2024 09:53-0400 Heart rate 118 /min Merry Medrano APRN.PAVER Work Phone: [facility] 07-18-2024 09:53-0400 Respiratory rate 18 /min Merry Medrano APRN.PAVER Work Phone: [facility] 07-18-2024 09:53-0400 SaO2% (BldA) [Mass fraction] 98 % Merry Medrano APRN.PAVER Work Phone: [facility] 07-18-2024 09:53-0400 Systolic blood pressure 122 mm[Hg] Merry Medrano APRN.PAVER Work Phone: [facility] 03-30-2022 17:11-0500 Body temperature 97.8 [degF] Dr. Sapna Ray Work Phone: [facility] Work Phone: 03-30-2022 17:11-0500 Diastolic blood pressure 65 mm[Hg] Dr. Sapna Ray Work Phone: [facility] Work Phone: 03-30-2022 17:11-0500 Heart rate 88 /min Dr. Sapna Ray Work Phone: [facility] Work Phone: 03-30-2022 17:11-0500 Respiratory rate 16 /min Dr. Sapna Ray Work Phone: [facility] Work Phone: 03-30-2022 17:11-0500 SaO2% (BldA) [Mass fraction] 99 % Dr. Sapna Ray Work Phone: [facility] Work Phone: 03-30-2022 17:11-0500 Systolic blood pressure 115 mm[Hg] Dr. Sapna Ray Work Phone: [facility] Work Phone: 03-30-2022 13:49-0500 Body height 165.[address] Sapna Ray Work Phone: [facility] Work Phone: 03-30-2022 13:49-0500 Body mass index (BMI) [Ratio] 31.9 kg/m2 Dr. Sapna Ray Work Phone: [facility] Work Phone: 03-30-2022 13:49-0500 Body weight 87.[address] Sapna Ray Work Phone: [facility] Work Phone: 10-30-2021 15:41-0400 Diastolic blood pressure 75 mm[Hg] Dr. Sapna Ray Work Phone: [facility] Work Phone: 10-30-2021 15:41-0400 Systolic blood pressure 132 mm[Hg] Dr. Sapna Ray Work Phone: [facility] Work Phone: 10-30-2021 15:00-0400 Heart rate 91 /min Dr. Sapna Ray Work Phone: [facility] Work Phone: 10-30-2021 15:00-0400 Respiratory rate 19 /min Dr. Sapna Ray Work Phone: [facility] Work Phone: 10-30-2021 15:00-0400 SaO2% (BldA) [Mass fraction] 100 % Dr. Sapna Ray Work Phone: [facility] Work Phone: 10-30-2021 12:36-0400 Body height 165.[address] Sapna Ray Work Phone: [facility] Work Phone: 10-30-2021 12:36-0400 Body mass index (BMI) [Ratio] 31.8 kg/m2 Dr. Sapna Ray Work Phone: [facility] Work Phone: 10-30-2021 12:36-0400 Body temperature 97.5 [degF] Dr. Sapna Ray Work Phone: [facility] Work Phone: 10-30-2021 12:36-0400 Body weight 86.[address] Sapna Ray Work Phone: [facility] Work Phone: 09-05-2021 15:52-0400 Body height 165.[address] Sapna Ray Work Phone: [facility] Work Phone: 09-05-2021 15:52-0400 Body mass index (BMI) [Ratio] 31.6 kg/m2 Dr. Sapna Ray Work Phone: [facility] Work Phone: 09-05-2021 15:52-0400 Body temperature 98.1 [degF] Dr. Sapna Ray Work Phone: [facility] Work Phone: 09-05-2021 15:52-0400 Body weight 86.[address] Sapna Ray Work Phone: [facility] Work Phone: 09-05-2021 15:52-0400 Diastolic blood pressure 92 mm[Hg] Dr. Sapna Ray Work Phone: [facility] Work Phone: 09-05-2021 15:52-0400 Heart rate 152 /min Dr. Sapna Ray Work Phone: [facility] Work Phone: 09-05-2021 15:52-0400 Respiratory rate 18 /min Dr. Sapna Ray Work Phone: [facility] Work Phone: 09-05-2021 15:52-0400 SaO2% (BldA) [Mass fraction] 98 % Dr. Sapna Ray Work Phone: [facility] Work Phone: 09-05-2021 15:52-0400 Systolic blood pressure 119 mm[Hg] Dr. Sapna Ray Work Phone: [facility] Work Phone: 08-29-2021 11:30-0400 Body temperature 97.59 [degF] Júnior Alvarado MD Work Phone: [facility] 08-29-2021 11:30-0400 Diastolic blood pressure 70 mm[Hg] Júnior Alvarado MD Work Phone: [facility] 08-29-2021 11:30-0400 Heart rate 145 /min Júnior Alvarado MD Work Phone: [facility] 08-29-2021 11:30-0400 Respiratory rate 16 /min Júnior Alvarado MD Work Phone: [facility] 08-29-2021 11:30-0400 SaO2% (BldA) [Mass fraction] 97 % Júnior Alvarado MD Work Phone: [facility] 08-29-2021 11:30-0400 Systolic blood pressure 124 mm[Hg] Júnior Alvarado MD Work Phone: [facility] 07-09-2021 19:59-0400 Body height 165.[address] Sapna Ray Work Phone: [facility] Work Phone: 07-09-2021 19:59-0400 Body mass index (BMI) [Ratio] 31.6 kg/m2 Dr. Sapna Ray Work Phone: [facility] Work Phone: 07-09-2021 19:59-0400 Body temperature 96.9 [degF] Dr. Sapna Ray Work Phone: [facility] Work Phone: 07-09-2021 19:59-0400 Body weight 86.[address] Sapna Ray Work Phone: [facility] Work Phone: 07-09-2021 19:59-0400 Diastolic blood pressure 88 mm[Hg] Dr. Sapna Ray Work Phone: [facility] Work Phone: 07-09-2021 19:59-0400 Heart rate 120 /min Dr. Sapna Ray Work Phone: [facility] Work Phone: 07-09-2021 19:59-0400 Respiratory rate 18 /min Dr. Sapna Ray Work Phone: [facility] Work Phone: 07-09-2021 19:59-0400 SaO2% (BldA) [Mass fraction] 98 % Dr. Sapna Ray Work Phone: [facility] Work Phone: 07-09-2021 19:59-0400 Systolic blood pressure 130 mm[Hg] Dr. Sapna Ray Work Phone: [facility] Work Phone: 05-22-2021 07:53-0500 Heart rate 145 /min Dr. Sapna Ray Work Phone: [facility] Work Phone: 05-22-2021 07:53-0500 SaO2% (BldA) [Mass fraction] 93 % Dr. Sapna Ray Work Phone: [facility] Work Phone: 05-22-2021 07:12-0500 Body mass index (BMI) [Ratio] 30.4 kg/m2 Dr. Sapna Ray Work Phone: [facility] Work Phone: 05-22-2021 07:12-0500 Body temperature 98.2 [degF] Dr. Sapna Ray Work Phone: [facility] Work Phone: 05-22-2021 07:12-0500 Body weight [address] Sapna Ray Work Phone: [facility] Work Phone: 05-22-2021 07:12-0500 Diastolic blood pressure 89 mm[Hg] Dr. Sapna Ray Work Phone: [facility] Work Phone: 05-22-2021 07:12-0500 Respiratory rate 16 /min Dr. Sapna Ray Work Phone: [facility] Work Phone: 05-22-2021 07:12-0500 Systolic blood pressure 126 mm[Hg] Dr. Sapna Ray Work Phone: [facility] Work Phone: 04-23-2021 07:45-0500 SaO2% (BldA) [Mass fraction] 91 % Dr. Sapna Ray Work Phone: [facility] Work Phone: 04-23-2021 07:35-0500 Body temperature 98.2 [degF] Dr. Sapna Ray Work Phone: [facility] Work Phone: 04-23-2021 07:35-0500 Diastolic blood pressure 84 mm[Hg] Dr. Sapna Ray Work Phone: [facility] Work Phone: 04-23-2021 07:35-0500 Heart rate 91 /min Dr. Sapna Ray Work Phone: [facility] Work Phone: 04-23-2021 07:35-0500 Respiratory rate 16 /min Dr. Sapna Ray Work Phone: [facility] Work Phone: 04-23-2021 07:35-0500 Systolic blood pressure 137 mm[Hg] Dr. Sapna Ray Work Phone: [facility] Work Phone: 04-23-2021 04:10-0500 Body weight 71.[address] Sapna Ray Work Phone: [facility] Work Phone: 04-19-2021 19:50-0500 Body mass index (BMI) [Ratio] 26.3 kg/m2 Dr. Sapna Ray Work Phone: [facility] Work Phone: 04-09-2021 11:20-0500 Body temperature 98.6 [degF] Dr. Sapna Ray Work Phone: [facility] Work Phone: 04-09-2021 11:20-0500 Diastolic blood pressure 56 mm[Hg] Dr. Sapna Ray Work Phone: [facility] Work Phone: 04-09-2021 11:20-0500 Heart rate 96 /min Dr. Sapna Ray Work Phone: [facility] Work Phone: 04-09-2021 11:20-0500 Respiratory rate 18 /min Dr. Sapna Ray Work Phone: [facility] Work Phone: 04-09-2021 11:20-0500 SaO2% (BldA) [Mass fraction] 93 % Dr. Sapna Ray Work Phone: [facility] Work Phone: 04-09-2021 11:20-0500 Systolic blood pressure 93 mm[Hg] Dr. Sapna Ray Work Phone: [facility] Work Phone: 04-08-2021 13:28-0500 Body weight 72.[address] Sapna Ray Work Phone: [facility] Work Phone: 04-07-2021 17:32-0500 Body mass index (BMI) [Ratio] 26.4 kg/m2 Dr. Sapna Ray Work Phone: [facility] Work Phone: 03-24-2021 12:30-0500 Heart rate 121 /min Dr. Sapna Ray Work Phone: [facility] Work Phone: 03-24-2021 10:20-0500 Body temperature 98.1 [degF] Dr. Sapna Ray Work Phone: [facility] Work Phone: 03-24-2021 10:20-0500 Diastolic blood pressure 72 mm[Hg] Dr. Sapna Ray Work Phone: [facility] Work Phone: 03-24-2021 10:20-0500 Respiratory rate 17 /min Dr. Sapna Ray Work Phone: [facility] Work Phone: 03-24-2021 10:20-0500 SaO2% (BldA) [Mass fraction] 97 % Dr. Sapan Ray Work Phone: [facility] Work Phone: 03-24-2021 10:20-0500 Systolic blood pressure 131 mm[Hg] Dr. Sapna Ray Work Phone: [facility] Work Phone: 03-24-2021 05:00-0500 Body weight 64.[address] Sapna Ray Work Phone: [facility] Work Phone: 03-20-2021 03:00-0500 Inhaled oxygen concentration 70 % Dr. Sapna Ray Work Phone: [facility] Work Phone: 03-19-2021 23:28-0500 Body mass index (BMI) [Ratio] 25.7 kg/m2 Dr. Sapna Ray Work Phone: [facility] Work Phone: Encounters Encounter Date Encounter Type Care Provider Facility Start: 12-05-2024 Evaluation and manag ement of inpatient Dr. Bill Awad [facility] Work Phone: Start: 10-19-2024 Non-patient / Non-visit Lyndsey SPEARS [facility] Start: 10-19-2024 Non-patient / Non-visit Dr. Khanh Posey [facility] Work Phone: Start: 10-18-2024 Non-patient / Non-visit Dr. Khanh Posey [facility] Work Phone: Start: 10-18-2024 ambulatory Sapnaelizabeth Ray Facility:[facility] Start: 10-18-2024 End: 10-19-2024 Evaluation and management of inpatient Dr. Darvin Posey [facility] Work Phone: Start: 10-18-2024 ambulatory Tez Walker Facility:[facility] Start: 10-18-2024 Non-patient / Non-visit Dr. Blaise CORONADO [facility] Start: 07-18-2024 End: 07-18-2024 ambulatory SAPNA A MALSHANNON Facility:[facility] Start: 07-18-2024 End: 07-18-2024 Patient encounter procedure Merry Medrano APRN.PAVER Work Phone: [facility] Comment on above: Bacterial sinusitis (Primary Dx); Antibiotic-induced yeast infection Start: 01-15-2024 End: 01-16-2024 Evaluation and management of inpatient Sapna Cory Facility:[facility] Start: 01-15-2024 ambulatory Cari Reeves Facility:[facility] Start: 12-07-2023 End: 12-07-2023 Emergency department patient visit Sapna Ray Facility:[facility] Start: 03-30-2022 End: 03-30-2022 Emergency department patient visit Dr. Sapna Ray Work Phone: [facility]Emergency Department Start: 02-04-2022 End: 02-04-2022 Patient encounter [...] 01-28-[address] Sapna Ray Work Phone: [facility] Work Phone: Start: 01-28-2022 End: 01-28-[address] Sapna Ray Work Phone: [facility]-Laboratory,Fut ure Start: 12-20-2021 End: 12-20-[address] Sapna Ray Work Phone: [facility] Start: 12-18-2021 End: 12-18-[address] Sapna Ray Work Phone: [facility] Work Phone: Start: 12-18-2021 End: 12-18-[address] Sapna Ray Work Phone: [facility] Start: 12-11-2021 End: 12-11-[address] SAPNA RAY DO [facility] Start: 10-30-2021 End: 10-30-2021 Emergency department patient visit Dr. Sapna Ray Work Phone: [facility]Emer[facility] Start: 10-23-2021 End: 10-23-[address] Sapna Ray Work Phone: [facility] Start: 09-18-2021 End: 09-18-2021 Patient encounter procedure [facility] Start: 09-05-2021 End: 09-05-2021 Emergency department patient visit Dr. Sapna Ray Work Phone: [facility]Emergency Department Start: 08-29-2021 End: 08-29-2021 Subsequent hospital visit by physician Xr [facility] Work Phone: Radiology Comment on above: Rib pain on left twila e [R07.81] Start: 08-29-2021 End: 08-29-2021 Patient encounter procedure Júnior Alvarado MD Work Phone: [facility] Comment on above: Rib pain on left twila e (Primary Dx); Acute pain of right knee; Leg weakness, bilateral; Chronic bilateral low back pain with bilateral sciatica Start: 07-09-2021 End: 07-09-2021 Emergency department patient visit Dr. Sapna Ray Work Phone: [facility]Emergency Department Start: 05-22-2021 End: 05-22-[address] Sapna Ray [facility] Phone[facility] Start: 04-23-2021 Non-patient / Non-visit Dr. Lea Ray Work Phone: [facility] Start: 04-22-2021 Non-patient / Non-visit Dr. Lea Ray Work Phone: [facility] Start: 04-21-2021 Non-patient / Non-visit Dr. Lea Ray Work Phone: [facility] Start: 04-21-2021 Non-patient / Non-visit Dr. Lea Ray Work Phone: [facility] Start: 04-20-2021 Non-patient / Non-visit Dr. Lea Ray Work Phone: [facility] Start: 04-20-2021 Non-patient / Non-visit Dr. Lea Ray Work Phone: [facility] Start: 04-20-2021 Non-patient / Non-visit Dr. Lea Ray Work Phone: [facility] Start: 04-19-2021 End: 04-23-2021 Evaluation and management of inpatient Dr. Sapna Ray Work Phone: [facility]Progressive Care Unit Start: 04-09-2021 Non-patient / Non-visit Dr. Lea Ray Work Phone: [facility] Start: 04-08-2021 Non-patient / Non-visit Dr. Lea Ray Work Phone: [facility] Start: 04-07-2021 Non-patient / Non-visit Dr. Lea Ray Work Phone: [facility] Start: 04-07-2021 End: 04-09-2021 Evaluation and management of inpatient Dr. Sapna Ray Work Phone: [facility]Medical Surgical 3 Start: 03-24-2021 Non-patient / Non-visit Dr. Lea Ray Work Phone: [facility] Start: 03-23-2021 Non-patient / Non-visit Dr. Lea Ray Work Phone: [facility] Start: 03-22-2021 Non-patient / Non-visit Dr. Lea Ray Work Phone: [facility] Start: 03-21-2021 Non-patient / Non-visit Dr. Lea Ray Work Phone: [facility] Start: 03-20-2021 Non-patient / Non-visit Dr. Lea Ray Work Phone: [facility] Start: 03-19-2021 Non-patient / Non-visit Dr. Lea Ray Work Phone: [facility] Start: 03-19-2021 End: 03-24-2021 Evaluation and management of inpatient Dr. Sapna Ray Work Phone: [facility] 2 Procedures Date Procedure Procedure Detail Performing Clinician Start: 12-04-2024 X-ray of chest, PA a nd lateral views Dr. Sapna Ray DO Work Phone: Start: 12-04-[address] Sapna Ray DO Work Phone: Start: 10-19-2024 Ultrasonic guidance for thoracentesis Dr. Sapna Ray DO Work Phone: Start: 10-19-[address] Sapna Ray DO Work Phone: Start: 10-19-2024 Gram stain microscopy D choco Ray DO Work Phone: Start: 10-19-2024 End: 10-19-2024 Microbial culture, body fluid Dr. Sapna pittman DO Work Phone: Start: 10-19-2024 Plain chest [...] Sapna Ray DO Work Phone: Start: 10-18-[address] Sapna Ray DO Work Phone: Start: [...] Ray Work Phone: Start: 03-19-2021 Plain chest X-matteo Ray Work Phone: Start: 03-19-2021 SARS-CoV-2 Antigen (Rapid) Dr. Sapna Ray Work Phone: Viral antigen assay Dr. Sapna Ray Work Phone: Plan of Treatment Date Care Activity Detail Author Start: 07-18-2025 BP Controlled (<130/80) BP Controlled (<130/80) [facility] Start: 12-06-2024 [facility] Start: 12-05-2024 [facility] Start: 12-05-2024 Serum inorganic phosphate measurement [facility] Start: 12-05-2024 Referral to advertising intern [facility] Start: 12-05-2024 Assessment of risk of venous thromboembolism [facility] Start: 12-05-2024 Care regimes management [facility] Start: 12-05-2024 Catheterization of vein [facility] Start: 12-05-2024 Incentive spirometry [facility] Start: 12-05-2024 Insertion of catheter into peripheral vein [facility] Start: 12-05-2024 Measuring intake and output [facility] Start: 12-05-2024 Notification of physician [facility] Start: 12-05-2024 Oxygen therapy [facility] Start: 12-05-2024 Providing care according to standard [facility] Start: 12-05-2024 Provision of activity privileges [facility] Start: 12-05-2024 Referral to occupational therapist [facility] Start: 12-05-2024 Referral to service [facility] Start: 12-05-2024 Thyroid stimulating hormone measurement [facility] Start: 12-05-2024 End: 12-05-2024 [facility] Start: 12-05-2024 Urinalysis complete panel - Urine [facility] Start: 12-05-2024 Verification routine [facility] Start: 12-05-2024 Admission procedure [facility] Start: 12-04-2024 [facility] Start: 12-04-2024 [facility] Start: 10-19-2024 Following clinical pathway protocol [facility] Start: 10-19-2024 Patient discharge [facility] Start: 10-19-2024 [facility] Start: 10-19-2024 Anaerobic Culture Anaerobic Culture [facility] Start: 10-19-2024 Body Fluid Culture Body Fluid Culture [facility] Start: 10-19-2024 Microbial culture, body fluid [facility] Start: 10-19-2024 Vital signs measurements [facility] Start: 10-18-2024 Following clinical pathway protocol [facility] Start: 10-18-2024 Ambulation without limitation [facility] Start: 10-18-2024 Assessment of risk of venous thromboembolism [facility] Start: 10-18-2024 Care regimes management [facility] Start: 10-18-2024 Elevation of affected extremity [facility] Start: 10-18-2024 Insertion of catheter into peripheral vein [facility] Start: 10-18-2024 Measuring intake and output [facility] Start: 10-18-2024 Notification of physician [facility] Start: 10-18-2024 Patient education [facility] Start: 10-18-2024 Patient referral to dietitian [facility] Start: 10-18-2024 Providing care according to standard [facility] Start: 10-18-2024 [facility] Start: 10-18-2024 Bacteria identified in Blood by Culture Blood Culture [facility] Start: 10-18-2024 Hospital admission, emergency, from emergency room, medical nature [facility] Start: 10-18-2024 Cell count and Differential panel - Body fluid [facility] Start: 10-18-2024 Glucose measurement, body fluid [facility] Start: 10-18-2024 Microbial culture, body fluid [facility] Start: 10-18-2024 Microscopic observation [Identifier] in Body fluid by Cyto stain [facility] Start: 10-18-2024 Verification routine [facility] Start: 10-18-2024 Admission procedure [facility] Start: 10-18-2024 End: 10-18-2024 [facility] Start: 12-06-2023 Covid-19 Vaccine () Covid-19 Vaccine () [facility] Start: 12-06-2023 Influenza vaccination Influenza Vaccine (#1) [facility] Start: 02-04-2023 Glaucoma screening Dilated Retinal Exam [facility] Start: 02-04-2023 Hepatitis C antibody, confirmatory test DILATED RETINAL EXAM [facility] Start: 08-29-2022 BP CONTROLLED (<130/80) BP CONTROLLED (<130/80) [facility] Start: 03-30-2022 [facility] Work Phone: Start: 12-05-2021 Influenza vaccination [facility] Start: 08-29-2021 Shingrix Vaccine (2 of 2) Shingrix Vaccine (2 of 2) [facility] Start: 06-20-2021 SHINGRIX VACCINE (1 of 2) SHINGRIX VACCINE (1 of 2) [facility] Start: 06-20-2016 COLOGUARD (FIT-DNA) COLOGUARD (FIT-DNA) [facility] Start: 06-20-2016 Colonoscopy COLONOSCOPY [facility] Start: 06-20-2016 COLORECTAL CANCER SCREENING COLORECTAL CANCER SCREENING [facility] Start: 06-20-[address] COLONOGRAPHY [facility] Start: 06-20-2016 FECAL OCCULT BLOOD FECAL OCCULT BLOOD [facility] Start: 06-20-2016 Screening for malignant neoplasm of colon [facility] Start: 06-20-2016 SIGMOIDOSCOPY SIGMOIDOSCOPY [facility] Start: 2011 Mammography MAMMOGRAM [facility] Start: 2011 Screening for malignant neoplasm of breast Mammogram Screening [facility] Start: 06-20-2001 HPV TESTING HPV TESTING [facility] Start: 06-20-1992 PAP TESTING PAP TESTING [facility] Start: 06-20-1992 Screening for malignant neoplasm of cervix Cervical Cancer Screening [facility] Start: 06-20-1990 HEPATITIS B (1 of 3 - Risk 3-dose series) HEPATITIS B (1 of 3 - Risk 3-dose series) [facility] Start: 06-20-1990 Hepatitis B Vaccine (1 of 3 - 19+ 3-dose series) Hepatitis B Vaccine (1 of 3 - 19+ 3-dose series) [facility] Start: 06-20-1990 Pneumococcal Vaccine: 50+ (1 of 2 - PCV) Pneumococcal Vaccine: 50+ (1 of 2 - PCV) [facility] Start: 06-20-1990 Urine microalbumin profile [facility] Start: 06-20-1989 ANNUAL PCP TEAM CHRONIC DISEASE VISIT ANNUAL PCP TEAM CHRONIC DISEASE VISIT [facility] Start: 06-20-1989 Anxiety Screening Anxiety Screening [facility] Start: 06-20-1989 BP Controlled (<130/80) BP Controlled (<130/80) [facility] Start: 06-20-1989 Hepatitis B surface antibody level LDL CHOLESTEROL [facility] Start: 06-20-1989 HEPATITIS C SCREENING HEPATITIS C SCREENING [facility] Start: 06-20-1989 Hepatitis C screening Hepatitis C Screening [facility] Start: 06-20-1989 HIV SCREENING HIV SCREENING [facility] Start: 06-20-1989 HIV screening HIV Screening [facility] Start: 06-20-1989 SPIROMETRY SPIROMETRY [facility] Start: 06-20-1981 3 comp foot exam completed DIABETIC FOOT EXAM [facility] Start: 06-20-1981 Diabetic foot examination Diabetic Foot Exam [facility] Start: 06-20-1981 Hepatitis B screening URINE ALBUMIN:CREATININE RATIO [facility] Start: 06-20-1981 Hepatitis C antibody, confirmatory test DILATED RETINAL EXAM [facility] Start: 06-20-1977 PNEUMOCOCCAL (1 - PCV) PNEUMOCOCCAL (1 - PCV) [facility] Start: 06-20-1977 Pneumococcal vaccination Pneumococcal Vaccine (1 of 2 - PCV) [facility] Start: 06-20-1976 COVID-19 VACCINE (#1) COVID-19 VACCINE (#1) [facility] Start: 06-20-1976 Hemoglobin A1c measurement HbA1C [facility] Start: 06-20-1976 Hemoglobin A1c/Hemoglobin.total in Blood HBA1C [facility] Start: 1970 COVID-19 VACCINE (#1) COVID-19 VACCINE (#1) [facility] Start: 1970 HEPATITIS B (1 of 3 - 3-dose series) HEPATITIS B (1 of 3 - 3-dose series) [facility] Alanine aminotransfe rase [Enzymatic activity/volume] in Serum or Plasma [facility] Albumin [Mass/volume ] in Serum or Plasma [facility] Alkaline phosphatase [Enzymatic activity/volume] in Serum or Plasma [facility] Anion gap in Serum o r Plasma [facility] Bacteria identified in Body fluid by Culture [facility] Bacteria identified in Unspecified specimen by Anaerobe culture [facility] Bacteria identified in Urine by Culture Urine Culture [facility] Work Phone: Bilirubin, total measurement [facility] BUN/Creatinine ratio [facility] Calcium [Mass/volume ] in Serum or Plasma [facility] Carbon dioxide, tota l [Moles/volume] in Central venous blood [facility] Cholesterol [Mass/vo lume] in Serum or Plasma [facility] Cholesterol in HDL [Mass/volume] in Serum or Plasma [facility] Creatinine [Mass/vol ume] in Serum or Plasma [facility] Cytology report of B adrian fluid Cyto stain [facility] Erythrocyte mean corpuscular volume determination [facility] Glucose [Mass/volume ] in Serum or Plasma [facility] Hematocrit [Volume Fraction] of Blood [facility] Hemoglobin [Mass/vol ume] in Blood [facility] Lactate dehydrogenas e [Enzymatic activity/volume] in Body fluid by Pyruvate to lactate reaction [facility] Leukocytes [#/volume ] in Blood [facility] Low density lipoprot ein cholesterol measurement [facility] Magnesium measurement [facility] Mean corpuscular hem oglobin concentration determination [facility] Mean corpuscular hem oglobin determination [facility] Measurement of renal function [facility] Natriuretic peptide. B prohormone N-Terminal [Mass/volume] in Serum or Plasma [facility] Neutrophil count [facility] Neutrophil percent differential count [facility] Patient Education [facility] Work Phone: Patient referral [facility] Work Phone: pH of Body fluid [facility] pH of Body fluid [facility] Platelets [#/volume] in Blood [facility] Potassium measurement [facility] Protein [Mass/volume ] in Body fluid [facility] Red blood cell count [facility] Red cell distributio n width determination [facility] Serum chloride measurement [facility] Sodium measurement [facility] Total cholesterol:HD L ratio measurement [facility] Total protein measurement [facility] Triglycerides measurement [facility] Troponin T.cardiac [Mass/volume] in Serum or Plasma by High sensitivity method [facility] Urea nitrogen [Mass/ volume] in Serum or Plasma [facility] VLDL cholesterol measurement [facility] Immunization Date Immunization Notes Care Provider [facility] 03-08-2020 influenza, injectabl e, quadrivalent, preservative free Dr. Sapna Ray DO Work Phone: [facility] 03-08-2020 influenza, seasonal, injectable Dr. Sapna Ray Work Phone: [facility] Work Phone: 03-08-2020 influenza virus vaccine, unspecified formulation [place] [place] Work Phone: [facility] Payers Date Payer Category Payer Self-pay [id number] 2016 Unknown [id number] 2011 Medicaid [place] [id number] 2011-[facility] [phone] [place] [id number] Medicaid [id number] 2011 Medicaid [id number] Unknown [id number] Unknown [id number] Unknown [id number] Unknown [id number] Unknown [id number] Unknown [id number] Unknown [id number] Unknown [id number] Unknown [id number] Social History Date Type Detail Facility [facility] Work Phone: Start: 07-09-2021 End: 03-30-2022 Tobacco smoking status NCIS Unknown if ever smoked [facility] Work Phone: Start: 09-07-2019 Spouse/ Signif icant Other [facility] Start: 09-07-2019 Non-smoker [facility] Start: 1970 Sex Assigned At Female [facility] Start: 01-22-2015 End: 12-04-2024 Tobacco smoking status NHIS Ex-smoker [facility] End: 01-16-1989 History of tobacco use Current smoker [facility] Start: 08-29-2021 End: 07-18-2024 Alcohol intake Current drinker of alcohol (finding) [facility] Start: 1970 Sex Assigned At Not on file [facility] Start: 08-19-2021 End: 02-04-2022 Exposure to SARS-CoV-2 (event) Not sure [facility] Work Phone: End: 01-16-1989 History of tobacco use Cigarette Smoker [facility] Start: 01-22-2015 Tobacco use and exposure Smokeless tobacco non-user [facility] Start: 08-29-2021 End: 05-02-2022 History of Social function [facility] Start: 08-29-2021 End: 05-02-2022 Tobacco use panel [facility] National Score (1-100), lower number is lower risk 92 [facility] Medical Equipment Procedure Code Equipment Code Equipment Origin al Text Equipment Identifier Dates four times daily . Use as instructed Comment on above: four times daily. Us e as instructed Goals Date Patient Goal Desired Activity /State Functional Status Date Assessment Result Facility 10-19-2024 Functional status Ambulates [facility] Work Phone: 04-23-2021 Functional status Up ad bryce [facility] Work Phone: 04-09-2021 Functional status Up ad bryce;Bathroom Priv [facility] Work Phone: 03-24-2021 Functional status Ambulates;Bathroom Priv [facility] Work Phone: Mental Status Date Assessment Result Facility 10-19-2024 Cognitive function Level Of Cons ciousness Awake;Alert;Appropriate [facility] Work Phone: 10-19-2024 Cognitive function Voice/Name [facility] Work Phone: 03-30-2022 Cognitive function Level Of Cons ciousness Drowsy;Lethargic [facility] Work Phone: 10-30-2021 Cognitive function Level Of Cons ciousness Awake;Alert;Appropriate;Follow s Commands [facility] Work Phone: 04-23-2021 Cognitive function Voice/Name [facility] Work Phone: 04-09-2021 Cognitive function Voice/Name [facility] Work Phone: 03-24-2021 Cognitive function Voice/Name [facility] Work Phone: Clinical Notes 05-23-2015 to 12-05-2024 Note Date & Type Note Facility 12-05-2024 Discharge summary [facility] 12-04-2024 Radiology Diagnostic study note [facility] Imaging Services [address] [place] [address] Chest PA and Lateral MR#: [id number] Acct: [id number] Name: MARIA ISABEL VANN Rep #: [id number] : 1970 F 54 From: Edw reynaldo Smith MD PCP: Dr. Sapna Ray, Status: REG ER Study:Chest PA and Lateral Date of Exam: 12/04/24 Exam# [id number] Ordering Dr: Jarred Valladares MD PROCEDURE: CHEST PA AND LATERAL 12/04/2024 REASON FOR EXAM: SOB TECHNIQUE: Procedure Code: RADCXR Modality: DX Procedure: CHEST PA AND LATERAL COMPARISON: October 19, 2024, October 18, 2024 FINDINGS: Hardware: EEG leads Heart: Mildly enlarged. Lungs: Subsegmental atelectasis associated with small pleural effusions and minimal edema. Bones: Minimal degenerative change of the thoracic spine. RAD/Chest PA and Lateral IMPRESSION: Small volume pleural effusions and subsegmental atelectasis. There may be some minimal edema. Reading Location: [id number] CC: Dr. Sapna Ray DO; Dr. Saeid Valladares MD ~ Residential Manager: Signed [facility] 12-04-2024 Discharge summary Note Date/Time December 05, 2024 12:06am [facility] Medical Records Department [address] [place] [address] Emergency Department Summary 12/04/24 MR#: [id number] Acct: [id number] Name: MARIA ISABEL VANN Rep #:[id number] : 1970 54 From: Saeid Valladares MD PCP: Dr. Sapna Ray DO Status:REG ER Location: ED HPI History of Present Illness Chief Complaint: Shortness of Breath Detail of Chief Complaint: Shortness of breath, dyspnea on activity, orthopnea and swelling Informant: patient and spouse/S.O. Onset/Context/Timing Onset: Days Context: sudden Timing: Continuous and Waxes and wanes Quality: Positive for Dyspnea on exertion and Orthopnea; Negative for PND or Wheezing Current Severity: Mild Maximum Severity: Severe Worsened by: Exertion and Lying flat Relieved by: Nothing Associated Symptoms cough; Negative for rhinorrhea, post nasal drip, ear pain, fever, sore throat, subjective, chills, sweats or clear sputum Chest Pain: Positive for None Narrative Narrative: Patient was admitted to the hospital in October. Admission date was October 18. She was discharged on October 19. She received prescription for Lasix. She took her last dose of Lasix last week. She states she went to the pharmacy and got awater pill that she purchased [id number]. She does not know what the active ingredient is. Based on computer search she is taking Love theophylline and would explain her tachycardia. She states she is not urinating much if at all. Review of Dr. Posey's discharge summary indicates acute heart failure with global hypokinesis of the left ventricle. There is moderate to severe 3+ mitralvalve insufficiency. Patient was placed on 1.5 L fluid restriction and 40 mg ofLasix twice a day. She also had bilateral pleural effusions. She had a thoracentesis for the fluid on the right. It was felt to be transudate. Apparently her father had a history of aggressive lung cancer. She also has diabetes, type II. Patient presents because of increased shortness of breath at rest and minimal activity. She cannot walk across the room. She states her legs are swelling. She is sleeping in a recliner. She been sleeping in a Kreiner for 1 to 2 months. She states minimal activity causes her to have significant trouble withher breathing. PE Risk Factors: Negative for Cancer, OCP + Smoking + > 35, Prior DVT or PE, Recent immobilization, Recent surgery or Recent travel Prior similar symptoms: Yes Recent Illness/Hospital[facility]: [facility] Medical History Diabetes mellitus HLD (hyperlipidemia) Sleep apnea Anxiety [...] mg PO BID depressi on 04/07/21 Unknown Hi story release fenofibrate micronized 67 mg 67 mg [...] 10/18/24 Unknown History (100 million cell) tablet pregabalin 150 mg capsule 150 mg PO BID 10/18/24 Unkno wn History sodium chloride 0.65 % nasal spray 1 spray intranasal 4X/DAY PRN PRN 10/18/24 Unknown History aerosol (Deep Sea Nasal) allergies carvedilol 6.25 mg tablet 6.25 mg PO BID #60 tabs 10/04 09/28 Unknown Rx furosemide 40 mg tablet (Lasix) 40 mg PO DAILY #30 tab s 10/19/24 Unknown Rx lisinopril 10 mg tablet 10 mg PO DAILY #30 tabs 10/04 09/28 Unknown Rx Allergy/AdvReac Type Severity Reaction Status Date / Time etodolac (From [facility]) Allergy Rash Verified 12/04/24 20:42 Family History Mother Arthritis Hypertension Melanoma Father [...] type: does not use ROS ROS ED Constitutional Constitutional ED: Denies chills, fever(s), sweats or weight loss Eyes Eyes: Denies blurry vision ENT ENT ED: Denies ear pain or rhinorrhea Cardiovascular Cardiovascular: Reports orthopnea and racing heartbeat; Denies chest pain, palpitations or paroxysmal nocturnal dyspnea Respiratory/Chest Respiratory/Chest: Reports dyspnea, dyspnea on exertion and orthopnea; Denies cough, paroxysmal nocturnal dyspnea or sputum Gastrointestinal Gastrointestinal: Denies abdominal pain, melena, nausea or vomiting Genitourinary Genitourinary ED: Denies dysuria, hematuria or urinary frequency Musculoskeletal Musculoskeletal: Denies arthralgias or myalgias Integumentary Denies rash Neurologic Neurologic: Reports weakness Hematologic/Lymphatic Hematologic/Lymphatic: Denies easy bleeding or easy bruising EXAM Physical Exam Const Vital Signs: 12/04/24 20:40 12/04/24 21:03 12/04/24 21:09 Temperature 98.5 F Temperature Source Oral Pulse Rate 119 H Respiratory Rate 26 H Respiratory Effort Respiratory Depth Respiratory Pattern Blood Pressure 154/97 H 145/75 H Blood Pressure Mean 116 98 Pulse Ox 98 Oxygen Delivery Method Room Air Room Air 12/04/24 21:10 12/04/24 21:15 12/04/24 21:16 Temperature Temperature Source Pulse Rate 120 H Respiratory Rate 19 H Respiratory Effort Respiratory Depth Respiratory Pattern Blood Pressure 130/86 H Blood Pressure Mean 97 Pulse Ox 96 97 Oxygen Delivery Method 12/04/24 21:21 12/04/24 21:22 12/04/24 21:30 Temperature Temperature Source Pulse Rate Respiratory Rate Respiratory Effort Short of Breath Respiratory Depth Normal Respiratory Pattern Tachypnea Blood Pressure 145/82 H Blood Pressure Mean 102 Pulse Ox 94 Oxygen Delivery Method Room Air Room Air 12/04/24 21:39 12/04/24 21:45 12/04/24 22:00 Temperature Temperature Source Pulse Rate 115 H 117 H 117 H Respiratory Rate 18 22 H 22 H Respiratory Effort Respiratory Depth Respiratory Pattern Blood Pressure 143/77 H 142/84 H 152/72 H Blood Pressure Mean 99 102 95 Pulse Ox 95 95 96 Oxygen Delivery Method 12/04/24 22:15 12/04/24 22:30 12/04/24 22:45 Temperature Temperature Source Pulse Rate 116 H 115 H 117 H Respiratory Rate 23 H 22 H 18 Respiratory Effort Respiratory Depth Respiratory Pattern Blood Pressure 143/77 H 141/80 H Blood Pressure Mean 96 98 Pulse Ox 96 97 97 Oxygen Delivery Method 12/04/24 23:00 12/04/24 23:00 Temperature Temperature Source Pulse Rate 116 H 118 H Respiratory Rate 28 H 24 H Respiratory Effort Respiratory Depth Respiratory Pattern Blood Pressure 142/92 H Blood Pressure Mean 108 Pulse Ox 99 98 Oxygen Delivery Method Room Air Positive well nourished and well developed Constitutional Narrative: Patient appears ill. She has a gonzalez face. There is edema of the lower extremities. She is tachycardic and tachypneic. She is not hypoxic at rest. She desaturates to 84% with walking across the room. She is not on home oxygen. General Appearance ED: well developed and pallor HEENT atraumatic; Negative for tenderness Eyes PERRL and EOMs intact bilaterally General Eye ED: Negative for pale conjunctiva or scleral icterus Neck no lymphadenopathy, supple, no meningeal signs and No no JVD Resp No normal respiratory effort Auscultation: rales bilateral lower (There is decreased breath sounds on the left compared to the right.) Cardio regular rate, regular rhythm, S1 normal heart sound, S2 normal heart sound and no murmurs GI non-tender, non-distended and no masses Auscultation: hypoactive bowel sounds Palpation: soft Back/Spine no CVA tenderness Extremity Negative for normal to inspection Extremity Narrative: Patient has mild pitting edema of the sacrum. General Extremety ED: Yes edema General Extremity: edema Neuro oriented x3 and CN's II-XII intact bilaterally Geovany Coma Scale: document GCS findings Spontaneous Obeys Commands Oriented 15 Sensorium / Orientation: alert Psych mental status grossly normal Skin no wounds and skin turgor normal General Skin Exam: pallor; Negative for jaundice MDM MDM MDM Narrative Medical decision making narrative: Differential diagnosis is exacerbation of heart failure, pneumonia, cardiac ischemia is unlikely. Will obtain CBC to assess H&H. BMP to assess her electrolytes and renal function. BNP was obtained as well. Clinically she is in heart failure. History & Record Review Additional record(s) reviewed:: Prior inpatient record (Dr. Taty nunez was reviewed and highlighted in the HPI portion of the medical record.),Prior ED visit and Prior labs Lab Data Attestation: I reviewed the patient's lab results. Lab results narrative: CBC is unremarkable. Basic metabolic panel is remarkable for an elevated BUN and creatinine compared to October 19. October 19 it was 30 and 0.86 with a BUN to creatinine ratio 35:1. Today it is 45 and 1.21 with BUN to creatinine ratio of 37 the 1. Glucose is elevated 398. CO2 and anion gap are normal. BNP is elevated at 17,585. Labs: Laboratory Results - last 24 hr 12/04/24 21:05 WBC 6.6 RBC 4.62 Hgb 12.9 Hct 41.1 MCV 89.0 MCH 27.9 MCHC 31.4 L RDW Std Deviation 45.9 H RDW Coeff of Elio 14.4 Plt Count 158 MPV 11.9 Immature Gran % (Auto) 0.600 Neut % (Auto) 74.2 H Lymph % (Auto) 17.4 L Spencer % (Auto) 6.5 Eos % (Auto) 0.8 Baso % (Auto) 0.5 Absolute Neuts (auto) 4.9 Absolute Lymphs (auto) 1.15 Nucleated RBC % 0 Sodium 143 Potassium 5.1 Chloride 105 Carbon Dioxide 24.8 Anion Gap 13 BUN 45 H Creatinine 1.21 H Estim Creat Clear Calc 61.25 Est GFR (MDRD) Non-Af 54 L BUN/Creatinine Ratio 37.0 H Glucose 398 H [place]cium 9.3 [place] [address] H Radiography Chest X-Ray - ED: 2 View and Read by ED Physician (Limited inspiratory volume. There appears to be cephalization. There appears to be a small effusion on the right side. There may be an effusion on the left. Cardiac silhouette is somewhat obscured because of the limited respiratory volume. Heart size is normal. Osseous structures reveal no acu) Diagnostic Testing: Clinical Impression(s) from Imaging Studies Chest X-Ray 12/04/24 21:10 IMPRESSION: Small volume pleural effusions and subsegmental atelectasis. There may be some minimal edema. Reading Location: [facility] EKG Initial EKG: Attestation: I personally reviewed and interpreted this EKG as follows: Interpretation: Sinus Tachycardia (Rate is 120. IN interval is on 52 ms. QRS duration 140 ms. QT duration Morales 60 ms. There is a nonseptic intraventricular conduction delay. There is evidence of LVH by voltage criteria.) Management Discussion w/another healthcare provider: Hospitalist (Case was discussed with Dr. Bill Edouard. Full admit PCU. He will follow-up on troponins.) Treatment and Re-Evaluation :: Patient received Lasix in the emergency department. After reviewing records andrealizing that troponin level was not ordered per nurse protocol this was added at 2349. Patient did not desaturate with ambulation 84%. She will require admission. Suspect her tachycardia is due to the Bromanyl theophylline she is taken as a water pill . Discharge Plan Dx/Rx/DC Orders Clinical Impression: CHF exacerbation, HLD (hyperlipidemia), Diabetes 1.5, managed as type 2, Diabetic neuropathy associated with type 2 diabetes mellitus, Pleural effusion, Hypoxia, Acute hyperglycemia, Sinus tachycardia Disposition Disposition: Acute Care Hospital [facility] What to do if you have Problems For any increased pain, shortness of breath, bleeding, nausea or vomiting, chestpain, or any unexpected problems, contact your Primary Care Provider. Call [facility] ([phone]) or report to the closest Emergency Room. Call 911 if necessary. 12/05/24 0006 <Electronically signed by Saeid Valladares MD> Cosigner Signature (if applicable): CC: Dr. Sapna Ray DO ~ Signed [facility] Work Phone: 1(710) 983-781407-16-2025 Discharge summary [facility] Medical Records Department [address] [place] [address] Discharge Summary 10/19/24 1635 MR#: [id number] Acct: [id number] Name: MARIA ISABEL VANN Rep #:[id number] : 1970 54 From: Darvin Posey DO PCP: Dr. Sapna Ray DO Status:ADM IN Location: [facility] [id number]- 1 Providers Date of Admission: 10/18/24 Primary [...] 81 mg tablet 81 mg PO DAILY [facility] 04/19/21 insulin lispro 100 unit/mL subcutaneous pen [...] Dr. Franklin, of cardiology, who recommended outpatient follow- up. The patient will continuewith the furosemide, lisinopril, will havecarvedilol added. And patient advised to check her weightdaily and keep a record and to limit her fluid intake daily. Also patient is diabetes poorly controlled her A1c is 12.6. In addition to following up cardiology she should follow-up with endocrinologyas well. Patient improved faster than initially anticipated. [...] % (Auto) 61.6, Lymph % (Auto) 26.5, Spencer % (Auto) 7.7, Eos % (Auto) 2.0, [...] Fld Polynuclear WBCs # 0.017, Fld Polynuclear WBCs% 11.3, Fluid Mononuclear WBCs 0.133, Fld Mononuclear [...] Pulmonary venous congestion. Reading Location: [facility] D/C Instructions Call your doctor if you [...] mg PO DAILY Referrals / Follow Up: [facility] [Provider Group] - Within 1 Month [facility] [Provider Group] - Within 2 Weeks Sapna Ray DO [Primary Care Provider] - Within 2 Weeks Disposition Disposition (needs filled in before D/C Order can be placed): Home, Self Care Charges/Coding Visit Charges Inpatient E&M: 90445 Disch Hosp >30min 10/19/24 3058 Cosigner Signature (if applicable): CC: Dr. Darvin Posey DO; Dr. Sapna Ray DO~ Signed [facility]07-16-2025 [facility] Medical Records Department [address] [place] [address] Discharge Summary 10/19/24 1635 MR#: [id number] Acct: [id number] Name: MARIA ISABEL VANN Rep #: [id number] : 1970 54 From: Darvin Posey DO PCP: Dr. Sapna Ray DO Status:ADM IN Location: [place] [id number] Providers Date of Admission: 10/18/24 Primary Care [...] anticipated. Weight / B (more content not included)...[facility]07-16-2025 Progress note [facility] Medical Records Department [address] [place] [address] Progress Note - Hospitalist 10/19/24 0847 MR#: [id number] Acct: [id number] Name: MARIA ISABEL VANN Rep #:[id number] : 1970 54 From: Darvin Posey DO PCP: Dr. Sapna Ray DO Status:ADM IN Location: [place] [address] Reason for Visit Chief Complaint: Shortness of [...] % (Auto) 57.9, Lymph % (Auto) 28.6, Spencer % (Auto) 9.1, Eos % (Auto) 1.6, [...] % (Auto) 61.6, Lymph % (Auto) 26.5, Spencer % (Auto) 7.7, Eos % (Auto) 2.0, [...] cannot be excluded. Reading Location: [facility] Chest CTA 10/18/24 11:08 IMPRESSION: 1. No pulmonary embolism is identified. Some of the distal pulmonary arteries cannot be evaluated due to suboptimal opacification. 2. Bilateral pleural effusions with compressive atelectasis and scattered ground-glass attenuation could represent pulmonary edema and/or multifocal pneumonia. Reading Location: [facility] Echocardiogram 10/18/24 15:00 Interpretation Summary Normal LV size. The left ventricular ejection fraction is 40 %. There is mild global hypokinesis of the left ventricle. Moderately severe (3+) eccentric mitral valve insufficiency. Contrast injection was performed. Ordering Physician: Darvin Posey Referring Physician: Sapna Ray Performed By: Loida Alvarez, RDCS, RVT Assessment & Plan Assessment/Plan (1) CHF [...] a history ofa very aggressive lung cancer. Patient had a [...] wished to be full code. 10/19/24 1635 Cosigner Signature (if applicable): CC: ~ Signed [facility]07-16-2025 Radiology Diagnostic study note [facility] Imaging Services [address] [place], [place] [id number] Chest Insp/Exp 2 View MR#: [id number] Acct: [id number] Name: MARIA ISABEL VANN Rep #: [id number] : 1970 F 54 From: Coby Herrera MD PCP: Dr. Sapna Ray, DO Status: ADM IN Study:Chest Insp/Exp 2 View Date of Exam: 10/19/24 Exam# [id number] Ordering Dr: Carlos Mathisa i, MD EXAM: XR Chest, 1 View [...] Pulmonary venous congestion. Reading Location: [facility] CC: Dr. Carlos Pimentel MD; Dr. Sapna Ray DO ~ Residential Manager: Signed [facility]07-16-2025 Procedure note [facility] Medical Records Department [address] [facility] [place] [address] Operative Report 10/19/24 1347 MR#: [id number] Acct: [id number] Name: MARIA ISABEL VANN Rep #:[id number] : 1970 54 From: Lyndsey Hidalgo PCP: Dr. Sapna Ray DO Status:ADM IN Location: [place] [address] Problems Associated Problem List Diagnoses (1) Pleural effusion: Multi Select Codes Radiology Radiology US Procedures: 45780 Thoracentesis Operative Report (Standard) Operative Information Date of Procedure: 10/19/24 Pre-Operative Diagnosis: Pleural effusion Post-Operative Diagnosis: Pleural effusion Surgery/Procedure Performed: Ultrasound-guided thoracentesis opal miner: No Type of Anesthesia: Local Procedure Start Time: 13:32 Procedure Stop Time: 13:44 Select all DRAINS/GRAFTS/IMPLANTS that apply: None Estimated Blood Loss: 0 Specimen collected: Yes Description of specimen(s) removed: 100 mL of clear darkyellow fluid Description of surgery: PROCEDURE: Ultrasound Guided [...] for local anesthesia. Under ultrasound guidance, a 5-Thai thoracentesis needle/catheter system was advanced into the right posterior lower pleural fluid collection. 1180 ml of clear dark yellow [...] 10/19/24 1353 Cosigner Signature (if applicable): CC: REGAN Armstrong; Dr. Sapna Ray DO~ Signed [facility]07-16-2025 Progress note Author Darvin Posey [facility] Note Date/Time October 19, 2024 4:35 pm [facility] Medical Records Department [address] [place] [address] Progress Note - Hospitalist 10/19/24 0847 MR#: [id number] Acct: [id number] Name: MARIA ISABEL VANN Rep #:[id number] : 1970 54 From: Darvin Posey DO PCP: Dr. Sapna Ray DO Status:ADM IN Location: [place] [address]- 1 Reason for Visit Chief Complaint: Shortness of [...] % (Auto) 57.9, Lymph % (Auto) 28.6, Spencer % (Auto) 9.1, Eos % (Auto) 1.6, [...] % (Auto) 61.6, Lymph % (Auto) 26.5, Spencer % (Auto) 7.7, Eos % (Auto) 2.0, [...] cannot be excluded. Reading Location: [facility] Chest CTA 10/18/24 11:08 IMPRESSION: 1. No pulmonary embolism is identified. Some of the distal pulmonary arteries cannot be evaluated due to suboptimal opacification. 2. Bilateral pleural effusions with compressive atelectasis and scattered ground-glass attenuation could represent pulmonary edema and/or multifocal pneumonia. Reading Location: [facility] Echocardiogram 10/18/24 15:00 Interpretation Summary Normal LV [...] patient. Patient wished to be full code. 10/19/245 <Electronically signed by Darvin Posey DO> Cosigner Signature (if applicable): CC: ~ Signed [facility] Work Phone: 1(390) 791-949507-15-2025 Discharge summary Author Satya Diaz-Filiberto [facility] Note Date/Time October 18, 2024 3:49 pm [facility] Medical Records Department [address] [place] [address] Emergency Department Summary 10/18/24 MR#: [id number] Acct: [id number] Name: MARIA ISABEL VANN Rep #:[id number] : 1970 54 From: Satya crisostomo DO PCP: Dr. Sapna Ray, DO Status:ADM IN Location: [place] [address] HPI History of Present Illness Chief Complaint: [...] Did recently have a car ride to [place]. Denies any bilateral lower extremity swelling or [...] intact Psych: Cooperative, appropriate mood and affect [facility] Medical History (Updated 10/18/24 @ 13:58 by [...] Reaction Status Date / Time etodolac (From [facility]) Allergy Rash Verified 01/15/24 12:24 Family History [...] % (Auto) 57.9 Lymph % (Auto) 28.6 Spencer % (Auto) 9.1 Eos % (Auto) 1.6 [...] cannot be excluded. Reading Location: [facility] Chest CTA 10/18/24 11:08 IMPRESSION: 1. No pulmonary embolism is identified. Some of the distal pulmonary arteries cannot be evaluated due to suboptimal opacification. 2. Bilateral pleural effusions with compressive atelectasis and scattered ground-glass attenuation could represent pulmonary edema and/or multifocal pneumonia. Reading Location: [facility] Discharge Plan Disposition Disposition: Acute Care Hospital [facility] Discharge Date/Time: 10/18/24 14:29 What to do if you have Problems For any increased pain, shortness of breath, bleeding, nausea or vomiting, chestpain, or any unexpected problems, contact your Primary Care Provider. Call [facility] ([phone]) or report to the closest Emergency Room. Call 911 if necessary. 10/18/24 1549 <Electronically signed by Satya Mendenhall DO> Cosigner Signature (if applicable): CC: Dr. Sapna Ray DO ~ Signed [facility] Work Phone: 1(771) 741-762907-15-2025 History and physical note Author Darvin Posey [facility] Note Date/Time October 18, 2024 2:03 pm [facility] Medical Records Department [address] [place] [address] H&P Exam - Hospitalist 10/18/24 1354 MR#: [id number] Acct: [id number] Name: MARIA ISABEL VANN Rep #:[id number] : 1970 54 From: Darvin Posey DO [...] bilateral large effusions on her chest CT. [facility] Medical History (Updated 10/18/24 @ 13:58 [...] Reaction Status Date / Time etodolac (From [facility]) Allergy Rash Verified 01/15/24 12:24 Family History [...] % (Auto) 57.9, Lymph % (Auto) 28.6, Spencer % (Auto) 9.1, Eos % (Auto) 1.6, [...] cannot be excluded. Reading Location: [facility] Chest CTA 10/18/24 11:08 IMPRESSION: 1. No pulmonary embolism is identified. Some of the distal pulmonary arteries cannot be evaluated due to suboptimal opacification. 2. Bilateral pleural effusions with compressive atelectasis and scattered ground-glass attenuation could represent pulmonary edema and/or multifocal pneumonia. Reading Location: [facility] Assessment & Plan Assessment/Plan (1) CHF exacerbation: [...] full code. Charges/Coding Visit Charges Inpatient E&M: 34627 Init Hosp L3 10/18/24 1403 <Electronically signed by Darvin Posey DO> Cosigner Signature (if applicable): CC: Dr. Darvin Posey DO; Dr. Sapna Ray DO~ Signed [facility] Work Phone: 1(997) 162-330607-15-2025 Discharge summary [facility] Medical Records Department [address] [place] [address] Emergency Department Summary 10/18/24 MR#: [id number] Acct: [id number] Name: MARIA ISABEL VANN Rep #:[id number] : 1970 54 From: Satya crisostomo DO PCP: Dr. Sapna Ray DO Status:ADM IN Location: [place] [address] HPI History of Present Illness Chief Complaint: [...] Did recently have a car ride to [place]. Denies any bilateral lower extremity swelling or [...] intact Psych: Cooperative, appropriate mood and affect [facility] Medical History (Updated 10/18/24 @ 13:58 by [...] capsule 50 mg PO BID PRN Itc carrei 05/22/21 Unknown History (Benadryl) ondansetron HCl 8 [...] Reaction Status Date / Time etodolac (From [facility]) Allergy Rash Verified 01/15/24 12:24 Family History [...] % (Auto) 57.9 Lymph % (Auto) 28.6 Spencer % (Auto) 9.1 Eos % (Auto) 1.6 [...] cannot be excluded. Reading Location: [facility] Chest CTA 10/18/24 11:08 IMPRESSION: 1. No pulmonary embolism is identified. Some of the distal pulmonary arteries cannot be evaluated due to suboptimal opacification. 2. Bilateral pleural effusions with compressive atelectasis and scattered ground-glass attenuation could represent pulmonary edema and/or multifocal pneumonia. Reading Location: [facility] Discharge Plan Disposition Disposition: Acute Care Hospital [facility] Discharge Date/Time: 10/18/24 14:29 What to do if you have Problems For any increased pain, shortness of breath, bleeding, nausea or vomiting, chestpain, or any unexpected problems, contact your Primary Care Provider. Call [facility] ([phone]) or report tothe closest Emergency Room. Call 911 if necessary. 10/18/24 7105 Cosigner Signature (if applicable): CC: Dr. Sapna Ray, DO ~ Signed [facility]07-15-2025 Evaluation note* Diagnosis Onset Date Resolution Status Admit Date Diabetes mellitus acute October 182024 1:48pm Pleural effusion acute October 1:48pm CHF exacerbation chronic October 1:48pm [facility] Work Phone: 1(855) 234-245007-15-2025 Evaluation note* Diagnosis Onset Date Resolution Status Admit Date Pleural effusion acute October 2024 1:48pm CHF exacerbation resolved October 1:48pm Diabetes mellitus inactive October 182024 1:48pm Acute hyperglycemia acute Septe mber 2024 12:28am Diabetes 1.5, managed as typ e 2 acute December 05 2 025 12:28am Diabetic neuropathy associated with type 2 diabetes mellitus acute December 05, 2024 12:28am HLD (hyperlipidemia) acute Dec ember 2024 12:28am Hypoxia acute December 05, 2024 12:28am Pleural effusion acute Septembe r 2024 12:28am Sinus tachycardia acute Septemb er 2024 12:28am CHF exacerbation chronic Septembe r 2024 12:28am [facility] Work Phone: 1([phone] 337-352907-15-2025 History and physical note [facility] Medical Records Department [address] [place] [address] H&P Exam - Hospitalist 10/18/24 1354 MR#: [id number] Acct: [id number] Name: MARIA ISABEL VANN Rep #:[id number] : 1970 54 From: Darvin Posey DO [...] bilateral large effusions on her chest CT. [facility] Medical History (Updated 10/18/24 @ 13:58 [...] Reaction Status Date / Time etodolac (From [facility]) Allergy Rash Verified 01/15/24 12:24 Family History [...] % (Auto) 57.9, Lymph % (Auto) 28.6, Spencer % (Auto) 9.1, Eos % (Auto) 1.6, [...] cannot be excluded. Reading Location: [facility] Chest CTA 10/18/24 11:08 IMPRESSION: 1. No pulmonary embolism is identified. Some of the distal pulmonary arteries cannot be evaluated due to suboptimal opacification. 2. Bilateral pleural effusions with compressive atelectasis and scattered ground-glass attenuation could represent pulmonary edema and/or multifocal pneumonia. Reading Location: [facility] Assessment & Plan Assessment/Plan (1) CHF exacerbation: [...] full code. Charges/Coding Visit Charges Inpatient E&M: 85073 Init Hosp L3 10/18/24 1403 Cosigner Signature (if applicable): CC: Dr. Darvin Posey DO; Dr. Sapna Ray DO~ Signed [facility]07-15-2025 Radiology Diagnostic study note [facility] Imaging Services [address] [place], [place] [address] CTA Chest W/WO Contrast MR#: [id number] Acct: [id number] Name: MARIA ISABEL VANN Rep #: [id number] : 1970 F 54 From: Coby Herrera MD PCP: Dr. Sapna Ray DO Status: REG ER Study:CTA Chest W/WO Contrast Date of Exam: 10/18/24 Exam# [id number] Ordering Dr: Satya Boyd DO EXAM: CT [...] and/or multifocal pneumonia. Reading Location: [facility] CC: Dr. Satya Mendenhall DO; Dr. Sapna Ray DO ~ Residential Manager: Signed [facility]07-15-2025 Radiology Diagnostic study note [facility] Imaging Services [address] [place] [address] Chest PA and Lateral MR#: [id number] Acct: [id number] Name: MARIA ISABEL VANN Rep #: [id number] : 1970 F 54 From: Coby Herrera MD PCP: Dr. Sapna Ray DO Status: REG ER Study:Chest PA and Lateral Date of Exam: 10/18/24 Exam# [id number] Ordering Dr: Satya Boyd DO EXAM: XR [...] cannot be excluded. Reading Location: [facility] CC: Dr. Satya Mendenhall, DO; Dr. Sapna Ray, DO ~ Residential Manager: Signed [facility]04-14-2025 NoteHNO ID: [id number] Author: MERRY MEDRANO APRN.PAVER Service: ? Author Type: Nurse Practitioner Type: [...] and frontal sinus tenderness present. Mouth/Throat: Lips: Sanford. Mouth: Mucous membranes are moist. Pharynx: Oropharynx is clear. Posterior oropharyngeal erythema present. No oropharyngeal exudate. Eyes: Extraocular Movements: Extraocular movements intact. Conjunctiva/sclera: Conjunctivae normal. Pupils: Pupils are equal, round, and reactive to light. Cardiovascular: Rate and Rhythm: Normal rate and regular rhythm. Pulses: Normal pulses. Heart sounds: Normal heart sounds. Pulmonary: (more content not included)...[facility]04-14-2025 History of Present illness Narrative* Merry Medrano APRN.[facility] - 07/18/2024 10:03 AM EDT Images from the original note were not included. [facility] NOTE Subjective Maria Isabel Vann is a 54 year old year old who presents to [facility] today with complaint of Sinus congestion with [...] and frontal sinus tenderness present. Mouth/Throat: Lips: Sanford. Mouth: Mucous membranes are moist. Pharynx: Oropharynx [...] CNP 07/18/2024 10:03 AM [facility]04-14-20[facility] Instructions* Patient Instructions* Merry Medrano APRN.[facility] - [...] smoke, should be avoided. documented in this [facility]10-12-2024 [facility] Medical Records Department [address] [place] [address] Discharge Summary 01/16/24 1410 MR#: [id number] Acct: [id number] Name: MARIA ISABEL VANN Rep #: [id number] : 1970 53 From: J Luis Diaz MD PCP: Dr. Sapna Ray DO Status:DIS IN Location: [address] Providers Date of Admission: 01/15/24 Primary [...] of diabetes, GERD, fibromyalgia who presented to [facility] ED 01/15/2024 feeling unwell since this morning. [...] Less than 3 Se (more content not included)...[facility]12-25-2022 Hospital Discharge instructions Additional Instructions Creatinine 1.68 up from 1.37 in October. Normal prior to that. Drink fluids at home for hydration. Follow-up with your doctor recheck labs. Sodium 132. Return if any worsening symptoms.[facility] Work Phone: 1(285) 379-854911-01-2022 History of Present illness Narrative* Warren Blanco [...] diagnosis, and treatment options. documented in this encounterA[facility]11-01-2022 Instructions* Patient Instructions* Warren Blanco MD - [...] any questions please contact our office at [phone]. After office hours or on the weekend, please call Dr. Blanco on his cell phone at [phone]. documented in this encounterA[facility]07-27-2022 Hospital Discharge instructions Additional Instructions Your blood pressure improved with IV fluids. Your creatinine 1.36 today your previous 0.96 over a month ago. Continue oral fluids at home. You may want to hold your Relafen and use Tylenol as needed for pain. Follow-up with your doctor recheck labs as an outpatient. [facility] Work Phone: 1(598) 121-677805-26-2022 History of Present illness Narrative* Jnúior Alvarado MD - 08/29/2021 11:33 AM EDT [...] (BD ULTRAFINE INSULIN) 1 mL 31 x 16 syrg five times daily. insulin glargine (LANTUS) [...] impingement with radicular symptoms, peripheral neuropathy, Gillain [place]. Continue management with primary care. Hospital and ER records are not readily available for reviewand chronic pain management is beyond the scope of care available in [facility]. Júnior Alvarado MD documented in this encounterAdena [facility] System02-17-2016 History of Past illness Narrative* Problem Noted Date Resolved Date Second degree uterine prolaps 05/23/2015 Cystocele, midline 05/23/2015 07/06/2015 ASCUS with positive high risk HPV 01/22/2015 07/06/2015 Menorrhagia with irregular cycle 01/22/2015 07/06/2015 Irregular menstrual cycle 01/22/20152015 documented as of this encounter (statuses as of 08/29/2021) [facility] History of Past illness Narrative* Problem Noted Date Resolved Date Second degree uterine prolaps 05/23/2015 Cystocele, midline 05/23/2015 07/06/2015 ASCUS with positive high risk HPV 01/22/2015 07/06/2015 Menorrhagia with irregular cycle 01/22/2015 07/06/2015 Irregular menstrual cycle 01/22/20152015 documented as of this encounter (statuses as of 02/04/2022) [facility] Darvin Pose[facility] Note Date/Time October 19, 2024 4:43 pm [facility] Medical Records Department [address] [facility] [place] [address] Discharge Summary 10/19/24 1635 MR#: [id number] Acct: [id number] Name: MARIA ISABEL VANN Rep #:[id number] : 1970 54 From: Darvin Posey DO PCP: Dr. Sapna Ray DO Status:ADM [facility] Providers Date of Admission: 10/18/24 Primary [...] % (Auto) 61.6, Lymph % (Auto) 26.5, Spencer % (Auto) 7.7, Eos % (Auto) 2.0, [...] Pulmonary venous congestion. Reading Location: [facility] D/C Instructions Call your doctor if you [...] mg PO DAILY Referrals / Follow Up: [facility] [Provider Group] - Within 1 Month [facility] [Provider Group] - Within 2 Weeks Sapna Ray DO [Primary Care Provider] - Within 2 Weeks Disposition Disposition (needs filled in before D/C Order can be placed): Home, Self Care Charges/Coding Visit Charges Inpatient E&M: 71531 Disch Hosp >30min 10/19/24 1643 <Electronically signed by Darvin Posey DO> Cosigner Signature (if applicable): CC: Dr. Darvin Posey DO; Dr. Sapna Ray DO~ Signed [facility] Work Phone: Evaluation + Plan note No data available for this section [facility] Evaluation note* Diagnosis Onset Date Resolution Status Acute hyponatremia resolved Diabetic ketoacidosis resolv ed Pneumonia due to 2019-nCoV r esolved Bilateral pneumonia acute HLD (hyperlipidemia) acute Hypoxia resolved Sinus tachycardia resolved [facility] Work Phone: Evaluation note* Diagnosis Rib pain on left side- Primary Chest pain, unspecified Acute pain of right knee Leg weakness, bilateral Other musculoskeletal symptoms referable to limbs Chronic bilateral low back pain with bilateral sciatica documented [facility] this encounter [facility] noteNo assessment information availableWLima [facility] Hospital Work Phone: Evaluation note* Diagnosis Onset Date Resolution Status COVID-19 tadeo johnson manifesting chronic fatigue 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, 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 acute Sciatica of right side acute [facility] Work Phone: Evaluation note* Diagnosis Onset Date Resolution Status COVID-19 tadeo johnson manifesting chronic fatigue 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, 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 acute Sciatica of right side acute Diabetic neuropathy associat ed with type 2 diabetes mellitus acute [facility] Work Phone: Evaluation note* Diagnosis Type 2 [...] type [facility] Diagnosis Onset Date Resolution Status Diabetic neuropathy associat ed with type 2 diabetes mellitus acute [facility] Work Phone: Evaluation note* Diagnosis Rib pain on left side Chest pain, unspecified Acute pain of right knee documented [facility]* Diagnosis Bacterial sinusitis- Primary Unspecified sinusitis (chronic) Antibiotic-induced yeast infection Candidiasis of unspecified site documented in this encounter [facility] note* Diagnosis Onset Date Resolution Status Admit Date Diabetes mellitus acute October 182024 1:48pm Pleural effusion acute October 1:48pm CHF exacerbation chronic October h2024 1:48pm [facility] Work Phone: History and physical note Author Darvin Posey [facility] Note Date/Time October 18, 2024 2:03 pm [facility] Medical Records Department [address] [place] [id number] H&P Exam - Hospitalist 10/18/24 1354 MR#: [id number] Acct: [id number] Name: MARIA ISABEL VANN Rep #:[id number] : 1970 54 From: Darvin Posey DO [...] bilateral large effusions on her chest CT. [facility] Medical History (Updated 10/18/24 @ 13:58 [...] Reaction Status Date / Time etodolac (From [facility]) Allergy Rash Verified 01/15/24 12:24 Family History [...] % (Auto) 57.9, Lymph % (Auto) 28.6, Spencer % (Auto) 9.1, Eos % (Auto) 1.6, [...] cannot be excluded. Reading Location: [facility] Chest CTA 10/18/24 11:08 IMPRESSION: 1. No pulmonary embolism is identified. Some of the distal pulmonary arteries cannot be evaluated due to suboptimal opacification. 2. Bilateral pleural effusions with compressive atelectasis and scattered ground-glass attenuation could represent pulmonary edema and/or multifocal pneumonia. Reading Location: [facility] Assessment & Plan Assessment/Plan (1) CHF exacerbation: [...] off on metformin given the CT angiogram thatshe had received. Continue with her glargine as [...] full code. Charges/Coding Visit Charges Inpatient E&M: 38007 Init Hosp L3 10/18/24 1403 <Electronically signed by Darvin Posey DO> Cosigner Signature (if applicable): CC: Dr. Darvin Posey, DO; Dr. Sapna Ray DO~ Signed [facility] Work Phone: Hospital Discharge instructions Additional Instructions As discussed, you can use Flexeril as a muscle relaxer instead of your Zanaflex. Please do not take the 2 together. After completing the course of Flexeril you can go back to your baseline Zanaflex.[facility] Work Phone: [facility] Work Phone: Hospital Discharge instructions No data available for this section [facility] Hospital Discharge instructionsAdditional Instructions You [...] do recommend a follow-up with endocrinology as well.[facility] Work Phone: Progress note No data available for this section [facility] reason for referral (narrative)* Diagnostic Procedure Only (Urgent) - Closed Specialty Diagnoses / Procedures Referred By Cele t Referred To Contact XR IMAGING Diagnoses Acute pain of right knee Procedures XR KNEE GENERAL 4V AP BOTH/PA BOTH/LAT/MERC RIGHT RADIOLOGIC EXAM KNEE COMPLETE 4/MORE VIEWS Júnior Alvarado MD [address] [place] [address] Xr Imaging Referral ID Status Reason Start Date Expiration Date V isits Requested Visits Authorized [id number] Closed Auto-Generate d Referral 08/29/2021 09/28/2022 1 1 * Diagnostic Procedure Only (Urgent) - Closed Specialty Diagnoses / Procedures Referred By Contac t Referred To Contact XR IMAGING Diagnoses Rib pain on left side Procedures XR RIBS/CHEST 3V AP RIB/OBLS/CXR LEFT RADEX RIBS UNI W/POSTEROANT CH MINIMUM 3 VIEWS Júnior Alvarado MD [address] [place] [address] Xr Imaging Referral ID Status Reason Start Date Expiration Date V isits Requested Visits Authorized [id number] Closed Auto-Generate d Referral 08/29/2021 09/28/2022 1 1 [facility] for referral (narrative)* Diagnostic Procedure Only (Urgent) - Closed Specialty Diagnoses / Procedures Referred By Contac t Referred To Contact XR IMAGING Diagnoses Acute pain of right knee Procedures XR KNEE GENERAL 4V AP BOTH/PA BOTH/LAT/MERC RIGHT RADIOLOGIC EXAM KNEE COMPLETE 4/MORE VIEWS Júnior Alvarado MD [address] [place] [id number] [place] [address] Referral ID Status Reason Start Date Expiration Date V isits Requested Visits Authorized [id number] Closed Auto-Generate d Referral 08/29/2021 09/28/2022 1 1 * Diagnostic Procedure Only (Urgent) - Closed Specialty Diagnoses / Procedures Referred By Contac t Referred To Contact XR IMAGING Diagnoses Rib pain on left side Procedures XR RIBS/CHEST 3V AP RIB/OBLS/CXR LEFT RADEX RIBS UNI W/POSTEROANT CH MINIMUM 3 VIEWS Júnior Alvarado MD [facility] [place] [address] [place] [address] Referral ID Status Reason Start Date Expiration Date V isits Requested Visits Authorized [id number] Closed Auto-Generate d Referral 08/29/2021 09/28/2022 1 1 [facility]No reason for referral information availableWLima [facility] Work Phone: Reason for visit Narrative* Diagnostic Procedure Only (Urgent) - Closed Specialty Diagnoses / Procedures Referred By Contac t Referred To Contact XR IMAGING Diagnoses Acute pain of right knee Procedures XR KNEE GENERAL 4V AP BOTH/PA BOTH/LAT/MERC RIGHT RADIOLOGIC EXAM KNEE COMPLETE 4/MORE VIEWS Júnior Alvarado MD [address] [place] [address] [place] [address] Referral ID Status Reason Start Date Expiration Date V isits Requested Visits Authorized [id number] Closed Auto-Generate d Referral 08/29/2021 09/28/2022 1 1 [facility] Chief Complaint and Reason for Visit Chief [...] spine hypotension Reason for Visit COVID-19 tadeo chanduler manifesting chronic fatigue Diabetes 1.5, 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 Sciatica of right side Chief Complaint right leg pain lumber spine hypotension LUMBAR PAIN Lumbar spine Reason for Visit COVID-19 long hauler manifesting chronic fatigue Diabetes 1.5, 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 Sciatica of right side Diabetic neuropathy associated with type 2 diabetes mellitus Chief Complaint lumber spine hypotension LUMBAR PAIN Lumbar spine Reason for Visit COVID-Annabella johnson manifesting chronic fatigue Diabetes 1.5, managed [...] CHF EXACERBATION October 19, 2024 1:47 pm Chief Complaint Admit Date CHF EXACERBATION October 18, 2024 1:48 pm Shortness of breath October 18, 2024 1:54 pm CHF EXACERBATION October 19, 2024 8:47 am CHF EXACERBATION October 19, 2024 1:47 pm SOB December 05, 2024 12:28am Reason for Visit Admit Date Pleural effusion October 18, 2024 1:48 pm CHF exacerbation October 18, 2024 1:48 pm Diabetes mellitus October 18, 2024 1:48 pm Acute hyperglycemia December 05, 2024 12:28am Diabetes 1.5, managed as type 2 Septembe 2024 12:28am Diabetic neuropathy associat ed with type 2 diabetes mellitus December 05, 2024 12:28am HLD (hyperlipidemia) December 05, 2024 12:28am Hypoxia December 05, 2024 12:28am Pleural effusion December 05, 2024 12:28am Sinus tachycardia December 05, 2024 12:28am CHF exacerbation December 05, 2024 12:28am Family History Relationship Condition Age at Onset [...] No July 09, 2021 8:11pm Power of Machine Hamper Maker No July 09 8:11pm Advance Directive Response Recorded Date/ Time Advance Directives No March 9:54am Living Will No September 05, 2021 4 :29pm Power of Machine Hamper Maker No September 05, 2021 4:29pm Advance Directive Response Recorded Date/ Time Advance Directives No October 18 12:08pm Living Will No October 30, 2021 12:52pm Power of Machine Hamper Maker No October 30 12:52pm Advance Directive Response Recorded Date/ Time Advance Directives No October 18 11:08am Living Will No March 30 1:56pm Power of Machine Hamper Maker No March 30, 2022 1:56pm Advance Directive Response Recorded Date/ Time Do you have a Healthcare Power of Machine Hamper Maker? No October 18, 2024 10:15am Advance Directives No October 18 12:08pm Advance Directive Response Recorded Date/ Time Do you have a Healthcare Power of Machine Hamper Maker? No October 18, 2024 3:01pm Advance Directives No October 18 12:08pm Advance Directive Response Recorded Date/ Time Do you have a Healthcare Power of Machine Hamper Maker? No October 18, 2024 3:01pm Do you have a Healthcare Power of Machine Hamper Maker? No December 04, 2024 9:22pm Advance Directives No October 18 12:08pm Summary [...] or prosecute any alcohol or drug abuse patient.[facility] System[facility] the event this information is protected by the Federal Confidentiality of Alcohol and Drug Abuse Patient Records regulations: The Federal rules restrict any use of the information to criminally investigate or prosecute any alcohol or drug abuse patient.[facility] SystemIn the event this information is protected by the Federal Confidentiality of Alcohol and Drug Abuse Patient Records regulations: The Federal rules restrict any use of the information to criminally investigate or prosecute any alcohol or drug abuse patient.[facility] SystemIn the event this information is protected by the Federal Confidentiality of Alcohol and Drug Abuse Patient Records regulations: The Federal rules restrict any use of the information to criminally investigate or prosecute any alcohol or drug abuse patient.[facility] Reason for Visit (unrecogniz ed section and [...] Care Teams (unrecognized sec tion and content) Amusement Machine Mechanic Relationship Specialty Start Date End Date Sapna Ray DO PCP - General 01/24/15 Amusement Machine Mechanic Relationship Specialty Start Date End Date Carlos Ashannon Sapna Medina DO PCP - General 01/24/15 Amusement Machine Mechanic Relationship Specialty Start Date End Date Carlos ASapna ortega DO PCP - General 01/24/15 Amusement Machine Mechanic Relationship Specialty Start Date End Date Cory Sapna Medina DO PCP - General 01/24/15 Team Status: Active Member Role/Relationship Status Dates Dr. Sapna Ray DO Primary Care Provider Active Team Status: Active Member Role/Relationship Status Dates Dr. Sapna Ray DO Primary Care Provider Active Start: October 18, 2024 Dr. Satya Mendenhall , DO Emergency Provider Activ e Start: October 18, 2024 Dr. Darvin Posey , Admit Provider Active Star t: October 18, 2024 Dr. Darvin Posey , DO Attending Provider Active Start: October 18, 2024 Team Status: Active Member Role/Relationship Status Dates Dr. Sapna Ray DO Primary Care Provider Active Start: October 18, 2024 Dr. Satya Mendenhall , DO Emergency Provider Activ e Start: October 18, 2024 Dr. Darvin Posey , Attending Provider Active Start: October 18, 2024 Team Status: Active Member Role/Relationship Status Dates Dr. Sapna Malys , DO Primary Care Provider Active Start: October 18, 2024 Dr. Tez Walker MD Attending Provider Active S tart: October 18, 2024 Team Status: Inactive Member Role/Relationship Status Dates Dr. Sapna Ray , DO Primary Care Provider Active Start: October 18, 2024 End: October 19, 2024 Dr. Satya Mendenhall , DO Emergency Provider Activ e Start: October 18, 2024 End: October 19, 2024 Dr. Darvin Posey , DO Admit Provider Active Star t: October 18, 2024 End: October 19, 2024 Dr. Darvin Posey , DO Attending Provider Active Start: October 18, 2024 End: October 19, 2024 Team Status: Active Member Role/Relationship Status Dates Dr. Sapna Ray , DO Primary Care Provider Active Start: October 18, 2024 Dr. Satya Mendenhall , DO Emergency Provider Activ e Start: October 18, 2024 Dr. Darvin Posey , DO Attending Provider Active Start: October 18, 2024 Team Status: Active Member Role/Relationship Status Dates Dr. Sapna Ray DO Primary Care Provider Active Start: October 19, 2024 Dr. Satya Mendenhall , DO Emergency Provider Activ e Start: October 19, 2024 Dr. Darvin Posey , DO Admit Provider Active Star t: October 19, 2024 Dr. Darvin Posey DO Attending Provider Active Start: October 19, 2024 Dr. Darvin Posey , DO Other Provider Active Star t: October 19, 2024 Team Status: Active Member Role/Relationship Status Dates Dr. Sapna Ray DO Primary Care Provider Active Start: October 19, 2024 Dr. Satya Mendenhall , DO Emergency Provider Activ e Start: October 19, 2024 Dr. Darvin Posey , DO Admit Provider Active Star t: October 19, 2024 Dr. Darvin Posey DO Other Provider Active Star t: October 19, 2024 REGAN Woo Attending Provider Active S tart: October 19, 2024 Team Status: Active Member Role/Relationship Status Dates Dr. Sapna Ray DO Primary Care Provider Active Start: December 05, 2024 Dr. Saeid Valladares MD Emergency Provider Active Sta rt: December 05, 2024 Dr. Bill Awad DO Admit Provider Active Start: December 05, 2024 Dr. Bill Awad DO Attending Provider Active Start: December 05, 2024 Care Team (unrecognized sect ion and content) Care Team Personnel Name: RENE ZELAYA MD Member Role: Primary Care Physician Address: Address: [address] [place] [address]- [place] Care Team Related Persons Name: EFFIE VANN Name: VANNDEJA MIXY INFORMATION SOURCE (unrecogn ized section and content) DATE CREATED AUTHOR 07/18/2024 [facility] DATE CREATED AUTHOR AUTHOR'S ORGANIZ ATION 11/12/2024 [facility] FOR RECORDS PERTAINING TO PATIENTS WHO [...] BE BASED ON THE PRIMARY CLINICAL RECORDS. [employer] provides no warranty or guarantee of the accuracy or completeness of information in this document.
[2024-12-05 01:59] LABS: Mucous, Urine 0 SEEN /hpf (<or=2+)
[2024-12-05 02:03] LABS: Color, Urine Straw (Yellow); Glucose, Dipstick 250 mg/dl (Normal); Ketone-Dipstick Negative (Negative); Leukocyte Esterase-Dipstick Negative /ul (Negative); Nitrite-Dipstick Negative (Negative); Occult Blood-Urine 25 /ul (Negative); Protein-Dipstick 100 mg/dl (Negative); Specific Gravity, Urine 1.010 (1.002-1.030); Urine Bilirubin Dipstick Negative (Negative)
[2024-12-05 02:12] LABS: Red Blood Cells-Urine 0-5 SEEN /hpf (0-5); Squamous Epithelial Cells - UA 0-5 SEEN /hpf (5-10)
[2024-12-05 02:20] LABS: Troponin T High Sens 4 HR 41 ng/L (<=14)
[2024-12-05 07:01] LABS: Hematocrit 36.8 % (37-47); Hemoglobin 11.7 g/dL (12.0-15.0); Immature Granulocytes Count 0.030 X10^3/uL (0.0-0.0); Mean Corp Hgb Conc 31.8 g/dL (32-36); Mean Corpuscular Volume 88.2 fL (81-99); Mean Platelet Vol. 11.8 fl (6.2-12.0); NRBC Flagged by Analyzer 0 % (0-5); Platelet Count 164 K/mm3 (150-450); RBC Distribution Width CV 14.3 % (11.6-14.6); RBC Distribution Width SD 46.1 fl (35.1-43.9); Red Blood Count 4.17 M/mm3 (4.2-5.4); White Blood Count 6.7 K/mm3 (4.4-11.0)
[2024-12-05] MEDS: Ergocalciferol 1.25 MG (50, 000 UNIT) Capsule PO (08:48)
[2024-12-05] MEDS: Potassium Chloride Oral Tablet 10 MEQ PO ×2 (08:49→17:17)
[2024-12-05] MEDS: Lactobacillis Acidophilus 1 CAP PO ×2 (08:49→20:55)
[2024-12-05] MEDS: Magnesium Chloride 64 MG Delay Rel.Tablet 128 MG PO ×2 (08:49→20:55)
[2024-12-05] MEDS: Insulin Glargine-YFGN 100 UNIT/ML Pen 40 UNIT SC ×2 (08:50→21:04)
[2024-12-05 10:14] LABS: AST(SGOT) 19 U/L (<=31); Alanine Aminotransfer ALT/SGPT 15 U/L (<=34); Albumin, Serum 3.4 g/dL (3.5-5.0); Alkaline Phosphatase 113 U/L (35-104); Anion Gap 12 (5-15); BUN 43 mg/dL (4-19); BUN/Creat Ratio 39.4 RATIO (10-20); Calcium,Total 9.2 mg/dL (7.6-11.0); Carbon Dioxide 22.1 mmol/L (21.0-32.0); Chloride 106 mmol/L (98-108); Cholesterol 231 mg/dL (<=200); Estimated Creatinine Clearance 68.17 ml/min (50-250); Globulin 2.9 g/dL (2.2-4.2); Glucose 285 mg/dL (70-99); Low Density Lipoprotein Calc. 153 mg/dL; Potassium 4.8 mmol/L (3.3-5.1); Pro- Brain NATRIURETIC PEPTIDE 19704 pg/mL (<=900); Triglycerides 238 mg/dL; Very Low Density Lipoprotein 48 mg/dL (5-40); cholesterol:hdl ratio screen 7.50
--- NOTE | 2024-12-05 10:28 | EKG12_ITS ---
Test Reason : PREV EKG CHANGES Blood Pressure : */* mmHG Vent. Rate : 102 BPM Atrial Rate : 102 BPM P-R Int : 168 ms QRS Dur : 136 ms QT Int : 398 ms P-R-T Axes : 69 -8 122 degrees QTcB Int : 518 ms Sinus tachycardia Non-specific intra-ventricular conduction block Cannot rule out Anteroseptal infarct , age undetermined Abnormal ECG No previous ECGs available Confirmed by Rahat Franklin ([id number]), sound editor CORINNA BRAVO ([id number]) on 12/06/2024 11:12:50 AM Referred By: BARAK Confirmed By: Rahat Franklin
--- NOTE | 2024-12-05 11:01 | PCM.CONS.C ---
Assessment & Plan Assessment/Plan (1) Medical non-compliance: (2) Generalized weakness: (3) Elevated troponin: (4) HLD (hyperlipidemia): (5) Acute on chronic systolic heart failure: PLAN: 54-year-old patient recently discharged from the hospital with acute on chronic systolic heart failure and moderately severe MR Presenting with symptoms of shortness of breath, bilateral lower extremity swelling and edema As well as weight gain she gained at least 15 pounds in the last week. Patient has multiple medical comorbidities with history of hypertension, former tobacco abuse, has a history of COVID-19 last echocardiogram showed EF in the range of 40 in addition to moderately severe mitral valve insufficiency with global LV hypokinesia and has bilateral pleural effusion and chest x-ray with previous right thoracocentesis/transudative. Patient started on treatment on this admission and IV Lasix symptoms shortness of breath improving as well as the lower extremity edema. EKG showed sinus tachycardia. Cardiac care plan; Repeat EKG today revealed sinus tachycardia with the possible age indeterminant anterior NJ with a poor R wave progression across the chest lead 1. I discussed guideline-directed medical therapy, include the following Entresto, Farxiga, carvedilol, or Jardiance, Aldactone Lasix as needed. Patient has mild elevation of high sensitive troponin Likely type II NJ with demand myocardial ischemia in the setting of acute on chronic systolic heart failure. 2. Patient will need further evaluation which can be set up as an outpatient with possible KARMEN to assess the severity and the etiology of the MR In addition to left and right heart catheterization 3. Patient will need further education regarding CHF restriction of fluid intake, compliance with medication and compliance with follow-up. She is scheduled to follow-up with Dr. Franklin, at [facility] cardiac team. I will defer to the medical team in regard to the other medical problems diabetes with diabetic neuropathy. Hyperlipidemia, hyperglycemia as well have a history of COPD. Currently she is not on any CPAP. Possible sleep study which can be set up as an outpatient. Cardiac care plan discussed in detail with the patient as well as the nursing staff. Kelsey Hardwick MD,FAC,[facility] brake lining maker HPI Consult Data Date of Consult: 12/05/24 HPI Narrative Reason for Consultation: Acute on chronic diastolic heart failure/noncompliance with medication HPI Narrative: EMILY CAGE, is a 54 F who presents [facility] Medical History Diabetes mellitus HLD (hyperlipidemia) Sleep apnea Anxiety Hypoxia Pneumonia due to COVID-19 virus Diabetes mellitus BERKLEY (acute kidney injury) Multiple falls Fibromyalgia Former smoker Lumbar back pain Intertrigo Excessive body weight loss Panniculitis Abdominal panniculus, symptomatic Bursitis Fibromyalgia Vitamin deficiency Vision problems ULCERS GERD (gastroesophageal reflux disease) Osteoarthritis Headache Depression Diabetes Carpal tunnel syndrome Back problem Arthritis Seasonal allergic conjunctivitis Home Medications ?Medication ?Instructions ?Recorded ?Last Taken ?Type omeprazole 20 mg capsule,delayed 20 mg PO DAILY gerd 03/23/21 12/04/24 08:21 History release duloxetine 60 mg capsule,delayed 60 mg PO BID depression 04/07/21 12/04/24 08:15 History release fenofibrate micronized 67 mg 67 mg PO BID HLD 04/07/21 12/04/24 08:16 History capsule aspirin 81 mg tablet 81 mg PO DAILY heart health 04/19/21 12/04/24 08:14 History insulin lispro 100 unit/mL 20 unit (0.2 mL) subcut TIDAC 04/23/21 Unknown Rx subcutaneous pen (Humalog KwikPen blood suagr 30 days #18 mL (U-100) Insulin) cholecalciferol (vitamin D3) 1,250 1,250 mcg PO QWEEK vitamin 05/22/21 10/17/24 History mcg (50,000 unit) capsule diphenhydramine HCl 25 mg capsule 50 mg PO BID PRN Itching 05/22/21 Unknown History (Benadryl) ondansetron HCl 8 mg tablet 8 mg PO Q8H PRN Nausea 05/22/21 Unknown History insulin glargine 100 unit/mL (3 50 - 75 units subcut BID blood 10/30/21 01/01/24 History mL) subcutaneous pen (Lantus sugar Solostar U-100 Insulin) metformin 500 mg tablet,extended 1,000 mg PO BID diabetes 12/07/23 12/04/24 08:21 History release 24 hr Lactobacillus acidophilus 0.5 mg 1 mg PO BID gut health 10/18/24 12/04/24 08:20 History (100 million cell) tablet pregabalin 150 mg capsule 150 mg PO BID nerve pain 10/18/24 12/04/24 08:21 History sodium chloride 0.65 % nasal spray 1 spray intranasal 4X/DAY PRN PRN 10/18/24 Unknown History aerosol (Deep Sea Nasal) allergies carvedilol 6.25 mg tablet 6.25 mg PO BID #60 tabs 10/19/24 12/04/24 07:14 Rx furosemide 40 mg tablet (Lasix) 40 mg PO DAILY #30 tabs 10/19/24 12/24/23 07:17 Rx lisinopril 10 mg tablet 10 mg PO DAILY #30 tabs 10/19/24 12/04/24 08:20 Rx Allergy/AdvReac Type Severity Reaction Status Date / Time etodolac (From [facility]) Allergy Rash Verified 12/04/24 20:42 Family History Mother Arthritis Hypertension Melanoma Father Arthritis Bleeding disorder Diabetes Heart disease High cholesterol Son Kidney disease H/O psychiatric care Uncle Alcoholism Liver disease Grandmother Arthritis Cancer Lung cancer Sister Epilepsy Melanoma Skin cancer Aunt CVA (cerebral vascular accident) Surgical History H/O knee surgery History of hysterectomy History of carpal tunnel surgery Social History household members: none housing: house Smoking Status: Former smoker how long ago did patient quit smoking: Quit ~ 30 years prior. alcohol intake: current alcohol intake frequency: holidays/special occasions only substance use type: does not use Objective Data Vital Signs: Vital Signs Temp Pulse Resp BP Pulse Ox O2 Del Method 97.9 F 121 H 20 H 149/94 H 98 Room Air 12/05/24 05:35 12/05/24 05:35 12/05/24 05:35 12/05/24 05:35 12/05/24 05:35 12/05/24 08:45 Oxygen Delivery Method Room Air Weight: 206 lb 9.17 oz Body Mass Index (BMI) 34.3 Intake & Output: Intake and Output for Last 24 Hours 12/03/24 12/04/24 12/05/24 23:59 23:59 23:59 Intake Total 300 / 300 Balance 300 / 300 Lab / Micro Data 12/05/24 06:38 12/05/24 06:38 Labs: Laboratory Results - last 24 hr 12/04/24 21:05: WBC 6.6, RBC 4.62, Hgb 12.9, Hct 41.1, MCV 89.0, MCH 27.9, MCHC 31.4 L, RDW Std Deviation 45.9 H, RDW Coeff of Elio 14.4, Plt Count 158, MPV 11.9, Immature Gran % (Auto) 0.600, Neut % (Auto) 74.2 H, Lymph % (Auto) 17.4 L, [place] % (Auto) 6.5, Eos % (Auto) 0.8, Baso % (Auto) 0.5, Absolute Neuts (auto) 4.9, Absolute Lymphs (auto) 1.15, Nucleated RBC % 0, Sodium 143, Potassium 5.1, Chloride 105, Carbon Dioxide 24.8, Anion Gap 13, BUN 45 H, Creatinine 1.21 H, Estim Creat Clear Calc 61.25, Est GFR (MDRD) Non-Af 54 L, BUN/Creatinine Ratio 37.0 H, Glucose 398 H, Calcium 9.3, Troponin T High Sens 35 H D, [place] [address] H 12/05/24 00:07: Magnesium 1.8, Troponin T Hi Sens 2 Hr 35 H 12/05/24 01:39: POC Glucose 375 H 12/05/24 01:40: Urine Color Straw, Urine Clarity Clear, Urine pH 6.0, Ur Specific [place] 1.010, Urine Protein 100 H, Urine Glucose (UA) 250 H, Urine Ketones Negative, Urine Occult Blood 25 H, Urine Nitrite Negative, Urine Bilirubin Negative, Urine Urobilinogen Normal, Ur Leukocyte Esterase Negative, Urine RBC 0-5 SEEN, Urine WBC 0-5 SEEN, Ur Squamous Epith Cells 0-5 SEEN, Urine Bacteria 1+, Urine Mucus 0 SEEN 12/05/24 01:44: Troponin T Hi Sens 4Hr 41 H, TSH 3.050 12/05/24 06:36: POC Glucose 245 H 12/05/24 06:38: WBC 6.7, RBC 4.17 L, Hgb 11.7 L, Hct 36.8 L, MCV 88.2, MCH 28.1, MCHC 31.8 L, RDW Std Deviation 46.1 H, RDW Coeff of Elio 14.3, Plt Count 164, MPV 11.8, Immature Gran % (Auto) 0.400, Neut % (Auto) 64.7, Lymph % (Auto) 23.9, [place] % (Auto) 9.1, Eos % (Auto) 1.5, Baso % (Auto) 0.4, Absolute Neuts (auto) 4.4, Absolute Lymphs (auto) 1.61, Nucleated RBC % 0, Sodium 140, Potassium 4.8, Chloride 106, Carbon Dioxide 22.1, Anion Gap 12, BUN 43 H, Creatinine 1.08, Estim Creat Clear Calc 68.17, Est GFR (MDRD) Non-Af 61, BUN/Creatinine Ratio 39.4 H, Glucose 285 H, Calcium 9.2, Phosphorus 3.6, Total Bilirubin 0.42, AST 19, ALT 15, Alkaline Phosphatase 113 H, [place] [address] H, Total Protein 6.4, Albumin 3.4 L, Globulin 2.9, Albumin/Globulin Ratio 1.2, Triglycerides 238 H, Cholesterol 231 H, LDL Cholesterol, Calc 153, VLDL Cholesterol 48 H, HDL Cholesterol 31 L, Cholesterol/HDL Ratio 7.50 Cardiology Labs/Tests 12/04/24 21:05: WBC 6.6, RBC 4.62, Hgb 12.9, Hct 41.1, MCV 89.0, MCH 27.9, MCHC 31.4 L, Plt Count 158, MPV 11.9, Immature Gran % (Auto) 0.600, Neut % (Auto) 74.2 H, Lymph % (Auto) 17.4 L, [place] % (Auto) 6.5, Eos % (Auto) 0.8, Baso % (Auto) 0.5, Absolute Neuts (auto) 4.9, Nucleated RBC % 0, Sodium 143, Potassium 5.1, Chloride 105, Carbon Dioxide 24.8, Anion Gap 13, BUN 45 H, Creatinine 1.21 H, Est GFR (MDRD) Non-Af 54 L, BUN/Creatinine Ratio 37.0 H, Glucose 398 H, Calcium 9.3 12/05/24 00:07: Magnesium 1.8 12/05/24 01:40: Urine Color Straw, Urine Clarity Clear, Urine pH 6.0, Ur Specific [place] 1.010, Urine Protein 100 H, Urine Glucose (UA) 250 H, Urine Ketones Negative, Urine Occult Blood 25 H, Urine Nitrite Negative, Urine Bilirubin Negative, Urine Urobilinogen Normal, Ur Leukocyte Esterase Negative, Urine RBC 0-5 SEEN, Urine WBC 0-5 SEEN 12/05/24 06:38: WBC 6.7, RBC 4.17 L, Hgb 11.7 L, Hct 36.8 L, MCV 88.2, MCH 28.1, MCHC 31.8 L, Plt Count 164, MPV 11.8, Immature Gran % (Auto) 0.400, Neut % (Auto) 64.7, Lymph % (Auto) 23.9, [place] % (Auto) 9.1, Eos % (Auto) 1.5, Baso % (Auto) 0.4, Absolute Neuts (auto) 4.4, Nucleated RBC % 0, Sodium 140, Potassium 4.8, Chloride 106, Carbon Dioxide 22.1, Anion Gap 12, BUN 43 H, Creatinine 1.08, Est GFR (MDRD) Non-Af 61, BUN/Creatinine Ratio 39.4 H, Glucose 285 H, Calcium 9.2, Phosphorus 3.6, Total Bilirubin 0.42, Triglycerides 238 H, Cholesterol 231 H, VLDL Cholesterol 48 H, HDL Cholesterol 31 L, Cholesterol/HDL Ratio 7.50 Rhythm: EKG: ECHO: Stress Test: Cardiac Cath: PCI: CT Surgery: Holter monitor: EPS: PPM: CXR: Chest CT Scan: Radiography Diagnostic Testing: Radiology Impression Chest X-Ray 12/04/24 21:10 IMPRESSION: Small volume pleural effusions and subsegmental atelectasis. There may be some minimal edema. Reading Location: [id number] Risk Score for UA/STEMI Assesmment (YES = 1) Risk Stratification Applicable: No
--- NOTE | 2024-12-05 15:46 | PCM.PROGNOTE ---
Subjective Subjective Patient seen and examined. She said she felt much better today and her breathing has improved. SHe denied any chest pain, palpitations, dizziness, nausea, vomiting or any other symptoms. Review of systems is otherwise negative. Objective Data Objective Data Vital Signs: Vital Signs Temp Pulse Resp BP Pulse Ox O2 Del Method 98.0 F 114 H 17 138/92 H 99 Room Air 12/05/24 11:35 12/05/24 11:35 12/05/24 11:35 12/05/24 11:35 12/05/24 11:35 12/05/24 14:00 Oxygen Delivery Method Room Air Weight: 206 lb 9.17 oz Body Mass Index (BMI) 34.3 Intake & Output: Intake and Output for Last 24 Hours 12/03/24 12/04/24 12/05/24 23:59 23:59 23:59 Intake Total 540 / 540 Balance 540 / 540 Lab / Micro Data 12/05/24 06:38 12/05/24 06:38 Labs: Laboratory Results - last 24 hr 12/04/24 21:05: WBC 6.6, RBC 4.62, Hgb 12.9, Hct 41.1, MCV 89.0, MCH 27.9, MCHC 31.4 L, RDW Std Deviation 45.9 H, RDW Coeff of Elio 14.4, Plt Count 158, MPV 11.9, Immature Gran % (Auto) 0.600, Neut % (Auto) 74.2 H, Lymph % (Auto) 17.4 L, [place] % (Auto) 6.5, Eos % (Auto) 0.8, Baso % (Auto) 0.5, Absolute Neuts (auto) 4.9, Absolute Lymphs (auto) 1.15, Nucleated RBC % 0, Sodium 143, Potassium 5.1, Chloride 105, Carbon Dioxide 24.8, Anion Gap 13, BUN 45 H, Creatinine 1.21 H, Estim Creat Clear Calc 61.25, Est GFR (MDRD) Non-Af 54 L, BUN/Creatinine Ratio 37.0 H, Glucose 398 H, Calcium 9.3, Troponin T High Sens 35 H D, [place] [address] H 12/05/24 00:07: Magnesium 1.8, Troponin T Hi Sens 2 Hr 35 H 12/05/24 01:39: POC Glucose 375 H 12/05/24 01:40: Urine Color Straw, Urine Clarity Clear, Urine pH 6.0, Ur Specific [place] 1.010, Urine Protein 100 H, Urine Glucose (UA) 250 H, Urine Ketones Negative, Urine Occult Blood 25 H, Urine Nitrite Negative, Urine Bilirubin Negative, Urine Urobilinogen Normal, Ur Leukocyte Esterase Negative, Urine RBC 0-5 SEEN, Urine WBC 0-5 SEEN, Ur Squamous Epith Cells 0-5 SEEN, Urine Bacteria 1+, Urine Mucus 0 SEEN 12/05/24 01:44: Troponin T Hi Sens 4Hr 41 H, TSH 3.050 12/05/24 06:36: POC Glucose 245 H 12/05/24 06:38: WBC 6.7, RBC 4.17 L, Hgb 11.7 L, Hct 36.8 L, MCV 88.2, MCH 28.1, MCHC 31.8 L, RDW Std Deviation 46.1 H, RDW Coeff of Elio 14.3, Plt Count 164, MPV 11.8, Immature Gran % (Auto) 0.400, Neut % (Auto) 64.7, Lymph % (Auto) 23.9, [place] % (Auto) 9.1, Eos % (Auto) 1.5, Baso % (Auto) 0.4, Absolute Neuts (auto) 4.4, Absolute Lymphs (auto) 1.61, Nucleated RBC % 0, Sodium 140, Potassium 4.8, Chloride 106, Carbon Dioxide 22.1, Anion Gap 12, BUN 43 H, Creatinine 1.08, Estim Creat Clear Calc 68.17, Est GFR (MDRD) Non-Af 61, BUN/Creatinine Ratio 39.4 H, Glucose 285 H, Calcium 9.2, Phosphorus 3.6, Total Bilirubin 0.42, AST 19, ALT 15, Alkaline Phosphatase 113 H, [place] [address] H, Total Protein 6.4, Albumin 3.4 L, Globulin 2.9, Albumin/Globulin Ratio 1.2, Triglycerides 238 H, Cholesterol 231 H, LDL Cholesterol, Calc 153, VLDL Cholesterol 48 H, HDL Cholesterol 31 L, Cholesterol/HDL Ratio 7.50 12/05/24 11:28: POC Glucose 318 H Radiography Diagnostic Testing: Radiology Impression Chest X-Ray 12/04/24 21:10 IMPRESSION: Small volume pleural effusions and subsegmental atelectasis. There may be some minimal edema. Reading Location: [facility] Physical Exam Const alert, oriented x3, no apparent distress and well nourished General Appearance: cooperative HEENT normocephalic, head/scalp atraumatic, moist oral mucous membranes and oropharynx normal Eyes EOMs intact bilaterally Neck no lymphadenopathy and supple Lymph Lymphatic: no lymphedema noted Resp Resp Narrative: mildly diminished breath sounds bibasally, no wheezes or crackles. On room air. Cardio regular rate, regular rhythm, S1 normal heart sound, S2 normal heart sound and no murmurs GI normal to inspection, nondistended, normoactive bowel sounds, soft to palpation, non-tender and non-distended Extremity normal capillary refill, no clubbing, cyanosis or edema and no calf tenderness General Extremity: no tenderness to palpation of joints or extremities Skin General Skin Exam: no breakdown Neuro CN's II-XII intact bilaterally, no focal motor deficits, no sensory deficits noted and deep tendon reflexes 2+ bilaterally Motor Exam: strength 5/5 throughout and general weakness Psych thought process normal, cooperative and affect normal Appearance: appropriate Assessment & Plan Assessment/Plan (1) Acute on chronic systolic heart failure: PLAN: Plan #Acute on chronic HFrEF Has known EF of 40% per echo done in October 2014 which also showed moderate 3+ mitral valve insufficiency. Patient was on Lasix and ran out of her Lasix at home. She went to [facility] and bought some diuretic [id number] which apparently also contain theophylline. She started having tachycardia. on IV lasix 40mg bid. monitor intake and output. Breathing treatment with bronchodilators cardiology on board # Type 2 diabetes mellitus with peripheral neuropathy: On Lantus. Insulin sliding scale. Accu-Cheks ACHS. Metformin on hold. On pregabalin due to neuropathy. #Abnormal urinalysis urine showed 1+ bacteria. She denies any urinary symptoms. Has chronic bacteriuria. WIll therefore hold off on antibiotics and monitor for now. #Benign essential hypertension: on lisinopril, carvedilol adn lasix. #Hyperlipidemia: on fenofibrate #Osteoarthritis with sciatica: stable. PT/OT On board. ON tylenol #Depression with fibromyalgia: on duloxetine #GERD: on PPI #Class I obesity: BMI is 34.4. Complicates acute care, expected recovery and prognosis. DVT prophylaxis: Lovenox Charges/Coding Visit Charges Inpatient E&M: 11834 Subs Hosp L2
[2024-12-05] MEDS: 0.9% Saline Lock 10 ML Syringe IV (17:23)
--- NOTE | 2024-12-06 01:20 | NURSING ---
This RN took over care of this pt at this time.
[2024-12-06 03:15] VITALS: BP 151/94; PULSE 106; RESP 18; TEMP 36.9; O2SAT 97
[2024-12-06 05:47] VITALS: BMI 34.2
[2024-12-06 06:39] VITALS: O2SAT 94
[2024-12-06 07:21] LABS: Hematocrit 34.5 % (37-47); Hemoglobin 10.9 g/dL (12.0-15.0); Immature Granulocytes Count 0.030 X10^3/uL (0.0-0.0); Mean Corp Hgb Conc 31.6 g/dL (32-36); Mean Corpuscular Volume 88.7 fL (81-99); Mean Platelet Vol. 11.5 fl (6.2-12.0); NRBC Flagged by Analyzer 0 % (0-5); Platelet Count 132 K/mm3 (150-450); RBC Distribution Width CV 14.3 % (11.6-14.6); RBC Distribution Width SD 46.1 fl (35.1-43.9); Red Blood Count 3.89 M/mm3 (4.2-5.4); White Blood Count 5.5 K/mm3 (4.4-11.0)
[2024-12-06 07:53] LABS: Anion Gap 10 (5-15); BUN 46 mg/dL (4-19); BUN/Creat Ratio 44.4 RATIO (10-20); Calcium,Total 9.0 mg/dL (7.6-11.0); Carbon Dioxide 25.6 mmol/L (21.0-32.0); Chloride 107 mmol/L (98-108); Estimated Creatinine Clearance 70.59 ml/min (50-250); Glucose 176 mg/dL (70-99); Potassium 4.6 mmol/L (3.3-5.1)
--- NOTE | 2024-12-06 08:36 | PCM.PN.CARD ---
Subjective Subjective Patient's report that she has lost weight since admission she also has lost girth around her waist and midsection which is where she retains most of her fluid. The patient was resting comfortably seated in the bed. She has been out of the bed walking around on room air. Objective Data Vital Signs: Vital Signs Temp Pulse Resp BP Pulse Ox O2 Del Method 98.4 F 106 H 18 151/94 H 97 Room Air 12/06/24 03:15 12/06/24 03:15 12/06/24 03:15 12/06/24 03:15 12/06/24 03:15 12/06/24 03:16 Oxygen Delivery Method Room Air Weight: 205 lb 7.533 oz Body Mass Index (BMI) 34.2 Intake & Output: Intake and Output for Last 24 Hours 12/04/24 12/05/24 12/06/24 23:59 23:59 23:59 Intake Total 900 / 1400 500 / 500 Balance 900 / 1400 500 / 500 Lab / Micro Data 12/06/24 07:00 12/06/24 07:00 Labs: Laboratory Results - last 24 hr 12/05/24 06:38: Sodium 140, Potassium 4.8, Chloride 106, Carbon Dioxide 22.1, Anion Gap 12, BUN 43 H, Creatinine 1.08, Estim Creat Clear Calc 68.17, Est GFR (MDRD) Non-Af 61, BUN/Creatinine Ratio 39.4 H, Glucose 285 H, Calcium 9.2, Phosphorus 3.6, Total Bilirubin 0.42, AST 19, ALT 15, Alkaline Phosphatase 113 H, [place] [address] H, Total Protein 6.4, Albumin 3.4 L, Globulin 2.9, Albumin/Globulin Ratio 1.2, Triglycerides 238 H, Cholesterol 231 H, LDL Cholesterol, Calc 153, VLDL Cholesterol 48 H, HDL Cholesterol 31 L, Cholesterol/HDL Ratio 7.50 12/05/24 11:28: POC Glucose 318 H 12/05/24 16:35: POC Glucose 316 H 12/05/24 20:59: POC Glucose 250 H 12/06/24 06:24: POC Glucose 165 H 12/06/24 07:00: WBC 5.5, RBC 3.89 L, Hgb 10.9 L, Hct 34.5 L, MCV 88.7, MCH 28.0, MCHC 31.6 L, RDW Std Deviation 46.1 H, RDW Coeff of Elio 14.3, Plt Count 132 L, MPV 11.5, Immature Gran % (Auto) 0.600, Neut % (Auto) 46.6 L, Lymph % (Auto) 38.5, [place] % (Auto) 11.0 H, Eos % (Auto) 2.9, Baso % (Auto) 0.4, Absolute Neuts (auto) 2.5, Absolute Lymphs (auto) 2.10, Nucleated RBC % 0, Sodium 142, Potassium 4.6, Chloride 107, Carbon Dioxide 25.6, Anion Gap 10, BUN 46 H, Creatinine 1.04, Estim Creat Clear Calc 70.59, Est GFR (MDRD) Non-Af 64, BUN/Creatinine Ratio 44.4 H, Glucose 176 H, Calcium 9.0 Rhythm Strip Rhythm Strip: Sinus Tach Rate: 104 Cardiology Labs/Tests 12/05/24 06:38: Sodium 140, Potassium 4.8, Chloride 106, Carbon Dioxide 22.1, Anion Gap 12, BUN 43 H, Creatinine 1.08, Est GFR (MDRD) Non-Af 61, BUN/Creatinine Ratio 39.4 H, Glucose 285 H, Calcium 9.2, Phosphorus 3.6, Total Bilirubin 0.42, Triglycerides 238 H, Cholesterol 231 H, VLDL Cholesterol 48 H, HDL Cholesterol 31 L, Cholesterol/HDL Ratio 7.50 12/06/24 07:00: WBC 5.5, RBC 3.89 L, Hgb 10.9 L, Hct 34.5 L, MCV 88.7, MCH 28.0, MCHC 31.6 L, Plt Count 132 L, MPV 11.5, Immature Gran % (Auto) 0.600, Neut % (Auto) 46.6 L, Lymph % (Auto) 38.5, [place] % (Auto) 11.0 H, Eos % (Auto) 2.9, Baso % (Auto) 0.4, Absolute Neuts (auto) 2.5, Nucleated RBC % 0, Sodium 142, Potassium 4.6, Chloride 107, Carbon Dioxide 25.6, Anion Gap 10, BUN 46 H, Creatinine 1.04, Est GFR (MDRD) Non-Af 64, BUN/Creatinine Ratio 44.4 H, Glucose 176 H, Calcium 9.0 Rhythm: EKG: ECHO: Stress Test: Cardiac Cath: PCI: CT Surgery: Holter monitor: EPS: PPM: CXR: Chest CT Scan: Physical Exam Const alert and oriented x3 HEENT normocephalic Eyes EOMs intact bilaterally Neck no JVD and no carotid bruits Neck Narrative: Thick neck no obvious JVD at 90 degrees. Chest Chest Narrative: Increased AP diameter Resp normal respiratory effort Auscultation: diminished lung sounds bilateral lower; Negative for rales Cardio Rate: tachycardic Rhythm: regular rhythm Heart Sounds: S1 normal, S2 normal and murmur systolic I/ (Faint murmur heard around the left lateral position.) soft; Negative for click or gallop GI GI Narrative: Increased abdominal girth Extremity General Extremity: edema bilateral lower extremity Details: mild Neuro Neuro Narrative: Alert and oriented x 3 Psych mental status grossly normal Assessment & Plan Assessment/Plan (1) Acute on chronic systolic heart failure: PLAN: Patient has a history of acute on chronic heart failure. She ran out of all of her medications recently. She is scheduled to be seen in the [facility] office on December 13. EF is known to be in the 40% range. She also has moderately severe mitral regurgitation by an echocardiogram done October 2024 when she was previously hospitalized for heart failure. Patient's heart rate and blood pressure are still slightly elevated. I would recommend that we increase her Coreg to 12.5 mg twice daily put her back on her Lasix 40 mg every morning and have her take her lisinopril 10 mg at suppertime with her second dose of Coreg. Patient to check blood pressure and heart rate in her home environment over the next week and present those to the office when she is seen December 13, 2024. At the December 13 office visit we will consider adding spironolactone and reevaluating her renal function. Renal function is normal as of today BUN 46 creatinine 1.04 with a GFR of 64. The patient is mildly anemic with a hemoglobin of 10.9. BNP was 19,700 on admission. Once she is titrated on guideline directed medical therapy we will recheck a BNP. I also asked her to discuss with her primary care physician about adding Jardiance to her medical regiment given the fact she is on insulin therapy. Once titrated to guideline directed medical therapy will proceed with transesophageal echocardiogram to reevaluate her mitral valve. She had moderately severe mitral regurgitation on her October 2024 echocardiogram. Pending results of the KARMEN the patient may require left heart catheterization in anticipation of intervention on the mitral valve. (2) Medical non-compliance: PLAN: Patient reports to me that she ran out of the medicines waiting to be seen in the [facility] office. I went over with her how incredibly important it is to be maintained on these medications as we titrate them to maximum tolerated doses and then reevaluate her valve for possible intervention if needed. (3) Sinus tachycardia: PLAN: Patient has a history of sinus tachycardia we will increase her Coreg. (4) Pleural effusion: PLAN: Will reevaluate the pleural effusions with chest x-ray in 2 weeks. At that point in time she should be on guideline directed medical therapy. (5) HLD (hyperlipidemia): QUALIFIERS: Hyperlipidemia type: mixed hyperlipidemia Qualified Code(s): E78.2 - Mixed hyperlipidemia PLAN: On admission 12/05/2024 triglycerides 238 total cholesterol 231, LDL cholesterol 153 and HDL 31. I would recommend the patient be started on statin therapy with atorvastatin 40 mg nightly. Fasting lipids and liver function should be reevaluated in 6 to 8 weeks. (6) Diabetes 1.5, managed as type 2: PLAN: Diabetes managed through the primary service. I have asked the patient to follow-up with her primary care physician to be evaluated for possible addition of Jardiance to her medical regiment given her heart failure issues and her weight. PLAN: Plan 1. Increase Coreg to 12.5 mg twice daily. 2. Continue Lasix 40 mg every morning and lisinopril 10 mg every afternoon with supper. 3. Consider adding Jardiance per the primary service. 4. Recommend adding atorvastatin 40 mg nightly given the patient's diabetes and elevated lipids. I put the order in. 5. Patient to follow-up in the [facility] office with Dr. Franklin December 13, 2024 as previously arranged. 6. Following titration of guideline directed medical therapy KARMEN will be performed. 7. Follow results of the KARMEN further evaluation of the mitral valve will be determined. Charges/Coding Visit Charges Inpatient E&M: 56844 Subs Hosp L3
[2024-12-06 10:21] VITALS: BP 119/60; PULSE 100; RESP 16; TEMP 35.9; O2SAT 97
[2024-12-06] MEDS: Insulin Glargine-YFGN 100 UNIT/ML Pen 40 UNIT SC (10:25)
[2024-12-06] MEDS: Lactobacillis Acidophilus 1 CAP PO (10:26)
[2024-12-06] MEDS: Magnesium Chloride 64 MG Delay Rel.Tablet 128 MG PO (10:26)
[2024-12-06] MEDS: Potassium Chloride Oral Tablet 10 MEQ PO (10:26)
--- NOTE | 2024-12-06 11:30 | CASEMGMT ---
RN CM Face to Face with patient for initial transition planning/care coordination assessment. RN CM introduced self and role at [facility]. Patient lying in bed, alert and oriented. Patient willing to participate in assessment and is able to answer all questions appropriately. Care providers, pharmacy, and demographics verified. Strata: 3 PCP: Cory Specialists: none Preferred Pharmacy: [facility] Insurance: [employer] Prescription Benefit: yes Living Will/HPOA: none LNOK: mother, children Living Arrangements: Patient lives with 4 adult children in a single story home with no steps. Patient states she is independent for selfcare at home. Transportation: son DME/HHC: Patient has shower chair, cane, walker, wheelchair, and glucometer with supplies at home. No previous HHC or SNF Patient wishes to discharge home, denies need for home health at this time. Patient states she has no further needs or concerns at this time. CM to follow for discharge planning needs that may arise. Disposition Plan: Patient to discharge home with family support and follow-up plans in place. Fabiana GUERRERO, RN, CM
--- NOTE | 2024-12-06 12:03 | PCM.DC.SUM ---
Providers Date of Admission: 12/05/24 Date of Discharge: 12/06/24 Primary Care Physician: Dr. Sapna Ray, DO Consultations 12/05/24 00:58 Consult: Cardiology Routine Consulting Provider: Moshe Jaramillo Reason for Consult: AE of Chronic Systolic CHF EMERGENT Consult: No MD Notified: Yes Date Notified: 12/05/24 Time Notified: 06:29 Method of Notification: Text Method of Consult:: In-Person Reason For Visit: AE CHF LONGO & HYPERGLYCEMIA Diagnosis Discharge Diagnosis (1) Acute on chronic systolic heart failure: Status: Chronic Code(s): I50.23 - Acute on chronic systolic (congestive) heart failure (2) Medical non-compliance: Status: Acute Code(s): Z91.199 - Patient's noncompliance with other medical treatment and regimen due to unspecified reason (3) Sinus tachycardia: Status: Acute Code(s): R00.0 - Tachycardia, unspecified (4) Pleural effusion: Status: Acute Code(s): J90 - Pleural effusion, not elsewhere classified (5) HLD (hyperlipidemia): Status: Acute Code(s): E78.5 - Hyperlipidemia, unspecified Qualifiers: Hyperlipidemia type: mixed hyperlipidemia Qualified Code(s): E78.2 - Mixed hyperlipidemia (6) Diabetes 1.5, managed as type 2: Status: Acute Code(s): E13.9 - Other specified diabetes mellitus without complications Plan #Acute on chronic HFrEF Has known EF of 40% per echo done in October 2014 which also showed moderate 3+ mitral valve insufficiency. Patient was on Lasix and ran out of her Lasix at home. She went to [facility] and bought some diuretic [id number] which apparently also contain theophylline. She started having tachycardia. on IV lasix 40mg bid. monitor intake and output. Breathing treatment with bronchodilators cardiology on board # Type 2 diabetes mellitus with peripheral neuropathy: On Lantus. Insulin sliding scale. Accu-Cheks ACHS. Metformin on hold. On pregabalin due to neuropathy. #Abnormal urinalysis urine showed 1+ bacteria. She denies any urinary symptoms. Has chronic bacteriuria. WIll therefore hold off on antibiotics and monitor for now. #Benign essential hypertension: on lisinopril, carvedilol adn lasix. #Hyperlipidemia: on fenofibrate #Osteoarthritis with sciatica: stable. PT/OT On board. ON tylenol #Depression with fibromyalgia: on duloxetine #GERD: on PPI #Class I obesity: BMI is 34.4. Complicates acute care, expected recovery and prognosis. DVT prophylaxis: Lovenox Medications at Discharge Home Medications omeprazole 20 mg capsule,delayed release 20 mg PO DAILY gerd 03/23/21 duloxetine 60 mg capsule,delayed release 60 mg PO BID depression 04/07/21 fenofibrate micronized 67 mg capsule 67 mg PO BID HLD 04/07/21 aspirin 81 mg tablet 81 mg PO DAILY [facility] 04/19/21 insulin lispro 100 unit/mL subcutaneous pen (Humalog KwikPen (U-100) Insulin) 20 unit (0.2 mL) subcut TIDAC blood suagr 30 days #18 mL 04/23/21 cholecalciferol (vitamin D3) 1,250 mcg (50,000 unit) capsule 1,250 mcg PO QWEEK vitamin 05/22/21 diphenhydramine HCl 25 mg capsule (Benadryl) 50 mg PO BID PRN Itching 05/22/21 ondansetron HCl 8 mg tablet 8 mg PO Q8H PRN Nausea 05/22/21 insulin glargine 100 unit/mL (3 mL) subcutaneous pen (Lantus Solostar U-100 Insulin) 50 - 75 units subcut BID blood sugar 10/30/21 metformin 500 mg tablet,extended release 24 hr 1,000 mg PO BID diabetes 12/07/23 Lactobacillus acidophilus 0.5 mg (100 million cell) tablet 1 mg PO BID gut health 10/18/24 pregabalin 150 mg capsule 150 mg PO BID nerve pain 10/18/24 sodium chloride 0.65 % nasal spray aerosol (Deep Sea Nasal) 1 spray intranasal 4X/DAY PRN PRN allergies 10/18/24 lisinopril 10 mg tablet 10 mg PO DAILY blood pressure #30 tabs 10/19/24 atorvastatin 40 mg tablet 40 mg PO QHS #30 tabs 12/06/24 carvedilol 12.5 mg tablet 12.5 mg PO BIDCM #60 tabs 12/06/24 furosemide 40 mg tablet (Lasix) 40 mg PO DAILY #30 tabs 12/06/24 potassium chloride 20 mEq tablet,extended release (K-Tab) 20 meq PO DAILY #30 tabs 12/06/24 Hospital Course Operations None Procedures None Summary of Care Provided Minutes Spent on Discharge: 45 Hospital Course: Patient is a 54-year-old female with a past medical history as outlined was admitted to the ED on 12/04/2024 with a complaint of shortness of breath, lower extremity edema and hyperglycemia. Patient had been admitted in October 2024 for acute exacerbation of heart failure with reduced ejection fraction and had known EF of 40% as well as 3+ mitral valve insufficiency. She had right thoracentesis done during that admission and the fluid was found to be transudative. She was diuresed with IV Lasix and discharged home on p.o. Lasix. She was to follow-up with cardiology on outpatient basis. However she had not yet been able to see cardiology. She started feeling short of breath about a week prior to admission when she ran out of her Lasix. She says she went to the pharmacy and got an [id number] diuretic which contained blue material filling. Patient started taking it but she was not really diuresing and noted that she was tachycardic. She therefore came into the ED as her shortness of breath worsened and she could not walk across the room without feeling short of breath. She also had lower extremity edema. proBNP was markedly elevated at 17,585. Chest x-ray showed small volume pleural effusions and subsegmental atelectasis with suspected minimal edema. She was admitted to be managed for acute exacerbation of heart failure with reduced ejection fraction likely due to noncompliance. She was diuresed with IV Lasix. Her shortness of breath improved and she felt much better. Cardiology was consulted and recommended her continuing on her Lasix. Cardiology also recommended that her carvedilol be increased to 12.5 mg twice daily and she was continued on her lisinopril 10 mg daily. Patient felt much better and was discharged home on 12/06/2024. She was given a prescription for the carvedilol 12.5 mg twice daily. She was also given a prescription for p.o. Lasix 40 mg daily with potassium supplementation. She is to continue her lisinopril and is to follow-up with her PCP and cardiology within 1 to 2 weeks. Of note cardiology recommended that patient follow-up with her PCP to determine whether she should be started on Jardiance also in light of the diabetes and heart failure. Patient seen and examined. She felt well and had no complaints. She had an uneventful night and remained on room air. Review of systems otherwise negative. Labs and vitals reviewed. Home medication reviewed and reconciled. Physical Exam Const alert, oriented x3, no apparent distress and well nourished General Appearance: cooperative and comfortable HEENT normocephalic, head/scalp atraumatic, hearing grossly normal bilaterally, moist oral mucous membranes and oropharynx normal Mouth: oral and palatal mucosa normal Eyes PERRL, EOMs intact bilaterally and conjunctivae normal Neck no lymphadenopathy, supple and no JVD Lymph Lymphatic: no lymphedema noted Resp Resp Narrative: mildly diminished breath sounds bibasally, no wheezes or crackles. On room air. Cardio regular rate, regular rhythm, S1 normal heart sound, S2 normal heart sound and no murmurs GI normal to inspection, nondistended, normoactive bowel sounds, soft to palpation, non-tender and non-distended GI Narrative: Obese. Extremity normal to inspection, full ROM, normal capillary refill, no clubbing, cyanosis or edema and no calf tenderness Extremity Narrative: edema has largely resolved. General Extremity: no tenderness to palpation of joints or extremities Skin no rashes or lesions noted General Skin Exam: no breakdown Neuro oriented x3, CN's II-XII intact bilaterally, moves all extremities, no focal motor deficits, no sensory deficits noted and deep tendon reflexes 2+ bilaterally Sensorium / Orientation: awake, alert, oriented to person, oriented to place and oriented to time Speech: speech normal Motor Exam: strength 5/5 throughout and general weakness Psych thought process normal, cooperative and affect normal Appearance: appropriate Weight / BMI Weight Weight: 205 lb 7.533 oz Body Mass Index (BMI) 34.2 ABG / Lab / Microbiology Data 12/06/24 07:00 12/06/24 07:00 Laboratory: Laboratory Results - last 24 hr 12/05/24 16:35: POC Glucose 316 H 12/05/24 20:59: POC Glucose 250 H 12/06/24 06:24: POC Glucose 165 H 12/06/24 07:00: WBC 5.5, RBC 3.89 L, Hgb 10.9 L, Hct 34.5 L, MCV 88.7, MCH 28.0, MCHC 31.6 L, RDW Std Deviation 46.1 H, RDW Coeff of Elio 14.3, Plt Count 132 L, MPV 11.5, Immature Gran % (Auto) 0.600, Neut % (Auto) 46.6 L, Lymph % (Auto) 38.5, [place] % (Auto) 11.0 H, Eos % (Auto) 2.9, Baso % (Auto) 0.4, Absolute Neuts (auto) 2.5, Absolute Lymphs (auto) 2.10, Nucleated RBC % 0, Sodium 142, Potassium 4.6, Chloride 107, Carbon Dioxide 25.6, Anion Gap 10, BUN 46 H, Creatinine 1.04, Estim Creat Clear Calc 70.59, Est GFR (MDRD) Non-Af 64, BUN/Creatinine Ratio 44.4 H, Glucose 176 H, Calcium 9.0 12/06/24 10:35: POC Glucose 200 H D/C Instructions Discharge Activity: Return to Normal Activity Weight Bearing Status: Weight bearing as tolerated Call your doctor if you observe: Fever of 101 or Higher, Shortness of breath, Dizziness, Swelling in the ankles, Chest pain and Increased palpitations (irregular heartbeat) DC O2, CPAP, BIPAP Needs Home O2 Discharge instructions: No Meaningful Use Info Meaningful Use Meaningful Use Diagnoses (Choose all that apply): CHF CHF RADHA/ARB ordered at discharge?: Yes Documented LVEF (%): 40 Discharge Plan Admission Admit Date/Time: 12/05/24 00:31 Primary Reason for Your Visit: acute exacerbation of heart failure with preserved EF Attending Provider: Katherine Peck Primary Care Provider: Sapna Ray Consulting Providers: Murali Jones; Mel Sotelo; Heide Laughlin; Brandon Osorio; Javier Connors; Kevin Erickson; Junito Mcgraw; Tez Walker; Bill Carter; Kelsey Hardwick; Rahat Franklin; Rodriguez Quinteros; Bryan Olvera; Edil Renee; Malik Randall; Fabio Alvarez NP; Zita Walton PA; Walker Cornelius; Bill Awad Instructions Patient Instructions: Heart Failure Discharge Orders/Prescriptions Prescriptions: New furosemide [Lasix] 40 mg tablet 40 mg PO DAILY Qty: 30 2RF atorvastatin 40 mg Tablet 40 mg PO QHS Qty: 30 2RF carvedilol 12.5 mg Tablet 12.5 mg PO BIDCM Qty: 60 2RF potassium chloride [K-Tab] 20 mEq tablet extended release 20 meq PO DAILY Qty: 30 2RF Continued ondansetron HCl 8 mg tablet 8 mg PO Q8H PRN (Reason: Nausea) cholecalciferol (vitamin D3) 1,250 mcg (50,000 unit) capsule 1,250 mcg PO QWEEK diphenhydramine HCl [Benadryl] 25 mg capsule 50 mg PO BID PRN (Reason: Itching) omeprazole 20 mg Capsule,Delayed Release(Dr/Ec) 20 mg PO DAILY fenofibrate micronized 67 mg capsule 67 mg PO BID duloxetine 60 mg capsule,delayed release(DR/EC) 60 mg PO BID aspirin 81 mg Tablet 81 mg PO DAILY insulin lispro [Humalog KwikPen Insulin] 100 unit/mL Insulin Pen 20 unit subcut TIDAC 30 Days Qty: 18 0RF Patient Comments: pt. states she uses sliding scale, not a set amount insulin glargine [Lantus Solostar U-100 Insulin] 100 unit/mL (3 mL) insulin pen 50 - 75 units subcut BID Patient Comments: 50u in the morning, 75u @ bedtime metformin 500 mg tablet extended release 24 hr 1,000 mg PO BID Deep Sea Nasal 0.65 % aerosol,spray 1 spray INTRANASAL 4X/DAY PRN PRN (Reason: allergies) pregabalin 150 mg capsule 150 mg PO BID Lactobacillus acidophilus 0.5 mg (100 million cell) tablet 1 mg PO BID lisinopril 10 mg tablet 10 mg PO DAILY Qty: 30 0RF Discontinued carvedilol 6.25 mg tablet 6.25 mg PO BID Qty: 60 0RF Rx Instructions: must administer with a meal/food furosemide [Lasix] 40 mg tablet 40 mg PO DAILY Qty: 30 0RF Referrals / Follow Up: Sapna Ray DO [Primary Care Provider] - Within 1 Week Rahat Franklin MD [Med Staff - Active Staff] - Within 2 Weeks Disposition Disposition (needs filled in before D/C Order can be placed): Home, Self Care Charges/Coding Visit Charges Inpatient E&M: 85338 Disch Hosp >30min
== END 2024-12-06 13:21 | disposition home or self-care (01) | DRG 194 ==
LOC: ED 23:51 → PCU 12-05 01:33
PROVIDERS: Admitting Provider Internal Medicine; Emergency Provider Emergency Medicine; PCP Family Medicine; Visit Provider Student in an Organized Health Care Education/Training Program
DX: I11.0 Hypertensive heart disease with heart failure (principal); I24.89 Other forms of acute ischemic heart disease; I50.23 Acute on chronic systolic (congestive) heart failure; E13.65 Other specified diabetes mellitus with hyperglycemia; F32.A Depression, unspecified; I34.0 Nonrheumatic mitral (valve) insufficiency; E66.811 Obesity, class 1; E13.40 Other specified diabetes mellitus with diabetic neuropathy, unspecified; E78.2 Mixed hyperlipidemia; F41.9 Anxiety disorder, unspecified; M79.7 Fibromyalgia; K21.9 Gastro-esophageal reflux disease without esophagitis; Z79.4 Long term (current) use of insulin; G47.33 Obstructive sleep apnea (adult) (pediatric); M19.90 Unspecified osteoarthritis, unspecified site; M54.31 Sciatica, right side; U09.9 Post COVID-19 condition, unspecified; R82.71 Bacteriuria; R53.82 Chronic fatigue, unspecified; R53.1 Weakness; R00.0 Tachycardia, unspecified; Z68.34 Body mass index [BMI] 34.0-34.9, adult; Z79.82 Long term (current) use of aspirin; Z79.84 Long term (current) use of oral hypoglycemic drugs; Z79.899 Other long term (current) drug therapy; Z87.891 Personal history of nicotine dependence; Z91.199 Patient's noncompliance with other medical treatment and regimen due to unspecified reason; Z91.148 Patient's other noncompliance with medication regimen for other reason
CPT/HCPCS: 36415; 71046; 80048; 80053; 80061; 81001; 82962; 83735; 83880; 84100; 84443; 84484; 85025; 93005; 94668; 94760; 97161; 97165; 99284; A4216; J1938

== ENCOUNTER → 2024-12-13 | Outpatient (CLI) | payer MEDICAID, SELFPAY ==
--- NOTE | 2024-12-13 13:32 | RAD_ITS ---
PROCEDURE: CHEST PA AND LATERAL 12/13/2024 REASON FOR EXAM: ACUTE ON CHRONIC SYSTOLIC HEART FAILURE TECHNIQUE: Procedure Code: RADCXR Modality: DX Procedure: CHEST PA AND LATERAL COMPARISON: PA and lateral chest of 12/04/2024 RAD/Chest PA and Lateral IMPRESSION: Lungs are hypoinflated. Mild right hemidiaphragm is seen. Small bilateral pleural effusions are seen, increased on the right compared to the prior exam of 12/04/2024. No definite pulmonary edema is seen, but cannot exclude a very mild degree of i nterstitial pulmonary edema, however. No pneumothorax is seen. The cardiomediastinal silhouette is stable, without evidence of cardiomegaly. No interval osseous change is seen. Reading Location: [place] [id number]
[2024-12-13 17:26] LABS: Anion Gap 7 (5-15); BUN 62 mg/dL (4-19); BUN/Creat Ratio 35.9 RATIO (10-20); Calcium,Total 8.8 mg/dL (7.6-11.0); Carbon Dioxide 23.4 mmol/L (21.0-32.0); Chloride 108 mmol/L (98-108); Glucose 197 mg/dL (70-99); Potassium 5.9 mmol/L (3.3-5.1)
== END | disposition home or self-care (01) ==
PROVIDERS: PCP Family Medicine; Referring Provider Internal Medicine Cardiovascular Disease; Visit Provider Internal Medicine Cardiovascular Disease
DX: I50.23 Acute on chronic systolic (congestive) heart failure (principal); I34.0 Nonrheumatic mitral (valve) insufficiency
CPT/HCPCS: 36415; 71046; 80048

== ENCOUNTER → 2024-12-19 | Outpatient (CLI) | payer MEDICAID, SELFPAY ==
[2024-12-19 11:09] LABS: Anion Gap 11 (5-15); BUN 40 mg/dL (4-19); BUN/Creat Ratio 27.6 RATIO (10-20); Calcium,Total 8.7 mg/dL (7.6-11.0); Carbon Dioxide 27.8 mmol/L (21.0-32.0); Chloride 107 mmol/L (98-108); Glucose 71 mg/dL (70-99); Potassium 4.8 mmol/L (3.3-5.1)
== END | disposition home or self-care (01) ==
LOC: LAB 09:02
PROVIDERS: PCP Family Medicine; Visit Provider Internal Medicine Cardiovascular Disease
DX: I50.23 Acute on chronic systolic (congestive) heart failure (principal); I50.33 Acute on chronic diastolic (congestive) heart failure; E87.5 Hyperkalemia
CPT/HCPCS: 36415; 80048

== ENCOUNTER → 2024-12-27 | Outpatient (CLI) | payer MEDICAID, SELFPAY ==
[2024-12-27 12:09] LABS: Anion Gap 11 (5-15); BUN 39 mg/dL (4-19); BUN/Creat Ratio 26.1 RATIO (10-20); Calcium,Total 8.7 mg/dL (7.6-11.0); Carbon Dioxide 28.8 mmol/L (21.0-32.0); Chloride 104 mmol/L (98-108); Glucose 266 mg/dL (70-99); Potassium 4.3 mmol/L (3.3-5.1); Pro- Brain NATRIURETIC PEPTIDE 15396 pg/mL (<=900)
== END | disposition home or self-care (01) ==
LOC: LAB 10:55
PROVIDERS: PCP Family Medicine; Referring Provider Internal Medicine Cardiovascular Disease; Visit Provider Internal Medicine Cardiovascular Disease
DX: R60.0 Localized edema (principal); I34.0 Nonrheumatic mitral (valve) insufficiency
CPT/HCPCS: 36415; 80048; 83880

== ENCOUNTER → 2024-12-28 | Outpatient (CLI) | payer MEDICAID, SELFPAY ==
--- NOTE | 2024-12-28 12:17 | RAD_ITS ---
PROCEDURE: CHEST PA AND LATERAL 12/28/2024 REASON FOR EXAM: SOB TECHNIQUE: Procedure Code: RADCXR Modality: DX Procedure: CHEST PA AND LATERAL COMPARISON: 12/13/2024 FINDINGS: Mild pulmonary vascular congestion and interstitial edema. No focal consolidation. Bibasilar subsegmental atelectasis. No pleural effusion or pneumothorax. Cardiac silhouette is within normal limits. No acute fractures. RAD/Chest PA and Lateral IMPRESSION: Mild pulmonary vascular congestion and interstitial edema. No focal consolidat ion. Bibasilar subsegmental atelectasis. Reading Location: [id number]
--- NOTE | 2024-12-28 12:17 | RAD_ITS ---
PROCEDURE: CHEST PA AND LATERAL 12/28/2024 REASON FOR EXAM: SOB TECHNIQUE: Procedure Code: RADCXR Modality: DX Procedure: CHEST PA AND LATERAL COMPARISON: 12/13/2024 FINDINGS: Mild pulmonary vascular congestion and interstitial edema. No focal consolidation. Bibasilar subsegmental atelectasis. No pleural effusion or pneumothorax. Cardiac silhouette is within normal limits. No acute fractures. RAD/Chest PA and Lateral IMPRESSION: Mild pulmonary vascular congestion and interstitial edema. No focal consolidat ion. Bibasilar subsegmental atelectasis. Reading Location: [id number]
== END | disposition home or self-care (01) ==
PROVIDERS: PCP Family Medicine; Referring Provider Student in an Organized Health Care Education/Training Program; Visit Provider Student in an Organized Health Care Education/Training Program
DX: I50.33 Acute on chronic diastolic (congestive) heart failure (principal)
CPT/HCPCS: 71046

== ENCOUNTER 2025-01-04 14:00 | Outpatient (CLI) | payer MEDICAID, SELFPAY ==
[2025-01-04 14:18] VITALS: BP 106/73; PULSE 87; RESP 18; O2SAT 99
[2025-01-04] MEDS: 0.9% NaCl Peripheral Flush Adult IV ×2 (14:26→14:37)
== END 2025-01-04 23:59 | disposition home or self-care (01) ==
LOC: MEDOUTP 14:01
PROVIDERS: PCP Family Medicine; Referring Provider Student in an Organized Health Care Education/Training Program; Visit Provider Student in an Organized Health Care Education/Training Program
DX: I50.33 Acute on chronic diastolic (congestive) heart failure (principal)
CPT/HCPCS: 96374; A4216; J1938

== ENCOUNTER 2025-01-05 13:29 | Outpatient (CLI) | payer MEDICAID, SELFPAY ==
[2025-01-05] MEDS: 0.9% NaCl Peripheral Flush Adult IV (14:05)
[2025-01-05 14:06] VITALS: BP 90/65; PULSE 88; RESP 16; TEMP 36.1; O2SAT 99
== END 2025-01-05 23:59 | disposition home or self-care (01) ==
LOC: MEDOUTP 13:29
PROVIDERS: PCP Family Medicine; Referring Provider Student in an Organized Health Care Education/Training Program; Visit Provider Student in an Organized Health Care Education/Training Program
DX: I50.33 Acute on chronic diastolic (congestive) heart failure (principal)
CPT/HCPCS: 96374; A4216; J1938

== ENCOUNTER 2025-01-06 12:53 | Outpatient (CLI) | payer MEDICAID, SELFPAY ==
[2025-01-06 13:19] VITALS: BP 104/69; PULSE 82; RESP 16; TEMP 36.2; O2SAT 97
[2025-01-06] MEDS: 0.9% NaCl Peripheral Flush Adult IV (13:33)
[2025-01-06 13:42] LABS: Anion Gap 12 (5-15); BUN 64 mg/dL (4-19); BUN/Creat Ratio 37.6 RATIO (10-20); Calcium,Total 9.4 mg/dL (7.6-11.0); Carbon Dioxide 26.5 mmol/L (21.0-32.0); Chloride 103 mmol/L (98-108); Glucose 129 mg/dL (70-99); Potassium 5.2 mmol/L (3.3-5.1)
== END 2025-01-06 23:59 | disposition home or self-care (01) ==
LOC: MEDOUTP 12:53
PROVIDERS: PCP Family Medicine; Referring Provider Student in an Organized Health Care Education/Training Program; Visit Provider Student in an Organized Health Care Education/Training Program
DX: I50.33 Acute on chronic diastolic (congestive) heart failure (principal)
CPT/HCPCS: 36415; 80048; 96374; A4216; J1938

== ENCOUNTER → 2025-01-13 | Outpatient (CLI) | payer MEDICAID, SELFPAY ==
[2025-01-13 15:16] LABS: Anion Gap 13 (5-15); BUN 31 mg/dL (4-19); BUN/Creat Ratio 25.1 RATIO (10-20); Calcium,Total 9.2 mg/dL (7.6-11.0); Carbon Dioxide 25.9 mmol/L (21.0-32.0); Chloride 104 mmol/L (98-108); Glucose 152 mg/dL (70-99); Potassium 4.2 mmol/L (3.3-5.1)
== END | disposition home or self-care (01) ==
LOC: LAB 13:17
PROVIDERS: PCP Family Medicine; Referring Provider Student in an Organized Health Care Education/Training Program; Visit Provider Student in an Organized Health Care Education/Training Program
DX: I50.33 Acute on chronic diastolic (congestive) heart failure (principal); I34.0 Nonrheumatic mitral (valve) insufficiency
CPT/HCPCS: 36415; 80048

== ENCOUNTER → 2025-01-25 | Outpatient (CLI) | payer MEDICAID, SELFPAY ==
[2025-01-25 14:40] LABS: Anion Gap 10 (5-15); BUN 45 mg/dL (4-19); BUN/Creat Ratio 33.2 RATIO (10-20); Calcium,Total 9.6 mg/dL (7.6-11.0); Carbon Dioxide 31.8 mmol/L (21.0-32.0); Chloride 100 mmol/L (98-108); Glucose 193 mg/dL (70-99); Potassium 4.8 mmol/L (3.3-5.1)
== END | disposition home or self-care (01) ==
LOC: LAB 12:38
PROVIDERS: PCP Family Medicine; Referring Provider Student in an Organized Health Care Education/Training Program; Visit Provider Student in an Organized Health Care Education/Training Program
DX: I50.33 Acute on chronic diastolic (congestive) heart failure (principal)
CPT/HCPCS: 36415; 80048

== ENCOUNTER → 2025-01-26 | Outpatient (CLI) | payer MEDICAID, SELFPAY | END | disposition home or self-care (01) | LOC: CVS 12:56 | PROVIDERS: PCP Family Medicine; Referring Provider Internal Medicine Cardiovascular Disease; Visit Provider Internal Medicine Cardiovascular Disease | DX: I50.23 Acute on chronic systolic (congestive) heart failure (principal) | CPT/HCPCS: 93308; Q9957; A4216; C8924 ==

== ENCOUNTER → 2025-03-22 | Outpatient (CLI) | payer MEDICAID, SELFPAY ==
[2025-03-22 13:22] LABS: Anion Gap 15 (5-15); BUN 44 mg/dL (4-19); BUN/Creat Ratio 28.0 RATIO (10-20); Calcium,Total 9.5 mg/dL (7.6-11.0); Carbon Dioxide 27.8 mmol/L (21.0-32.0); Chloride 97 mmol/L (98-108); Glucose 284 mg/dL (70-99); Potassium 4.5 mmol/L (3.3-5.1)
== END | disposition home or self-care (01) ==
LOC: LAB 12:26
PROVIDERS: PCP Family Medicine; Referring Provider Student in an Organized Health Care Education/Training Program; Visit Provider Student in an Organized Health Care Education/Training Program
DX: I50.20 Unspecified systolic (congestive) heart failure (principal)
CPT/HCPCS: 36415; 80048